=== PATIENT | female | born 1975 | race Hispanic/Latino ===

== ENCOUNTER 2017-11-26 12:32 | Inpatient (IN) | payer SELFPAY ==
[2017-11-26] MEDS ORDERED: NA CHLORIDE 0.9% 1,000 ML ONE (13:28)
[2017-11-26 13:30] LABS: Absolute Lymphocytes (CBC) 2.9 K/uL (0.7-4.9); Absolute Monocytes 0.5 K/uL (0.1-1.3); Absolute Neutrophil 4.4 K/uL (1.8-8.0); Basophils % 0.5 % (0-1.3); Eosinophils % 0.7 % (0-4.4); Hematocrit 36.3 % (36.0-45.0); Lymphocytes % 36.7 % (15.3-44.8); MCV 86.9 fL (80-100); MPV 8.5 fL (7.6-11.3); Monocytes % 6.5 % (3.3-12.3); RBC Red Blood Cell Count 4.17 M/uL (3.86-4.86)
[2017-11-26 13:43] LABS: ALT/SGPT 15 U/L (12-78); AST/SGOT 10 U/L (15-37); Albumin 3.5 g/dL (3.4-5.0); Alkaline Phosphatase 90 U/L (45-117); BUN Blood Urea Nitrogen 14 mg/dL (7-18); Bicarbonate 24 mmol/L (21-32); Bilirubin Direct < 0.1 mg/dL (0-0.2); Bilirubin Total 0.2 mg/dL (0.2-1.0); Glucose Level 357 mg/dL (74-106); Lipase 146 U/L (73-393); Potassium 4.1 mmol/L (3.5-5.1); Sodium Level 138 mmol/L (136-145)
[2017-11-26 14:34] LABS: Urine Blood TRACE (NEG); Urine Glucose 2+ (NEG); Urine Protein 2+ (NEG); Urine pH 5.5 (5.0-7.0)
[2017-11-26 14:44] LABS: Urine Bacteria >50 /HPF (<20); Urine Culture Reflex Order REFLEXED; Urine RBC <5 /HPF (NONE SEEN)
[2017-11-26] MEDS ORDERED: CEFTRIAXONE/SWI 1gm 1 GM/10 ML SYR ONE (14:57)
--- NOTE | 2017-11-26 15:05 | RAD REPORT ---
EXAM DESCRIPTION: CT - Abdomen Pelvis W Contrast - 11/26/2017 2:18 pm CLINICAL HISTORY: Abdominal pain with vomiting and diarrhea COMPARISON: none. TECHNIQUE: Computed axial tomography of the abdomen pelvis was obtained. 100 cc Isovue-300 was admin istered intravenously. Oral contrast was not requested which limits evaluation of bowel. All CT scans are performed using dose optimization technique as appropriate and may include automated exposure control or mA/KV adjustment according to patient size. FINDINGS: The liver, spleen, pancreas, adrenal and kidneys appear unremarkable. There is no evidence of diverticulitis. The distal appendix is borderline enlarged. It contains appen dicolith. Stranding is not seen within the adjacent fat. A 2 centimeter dense structure is present within the right adnexal. Small amount of free fluid is see n. Right ovary is mildly enlarged. IMPRESSION: Borderline enlargement of the distal appendix which contains an appendicolith is equivoc al for distal tip appendicitis. If the patient has clinical symptoms to suggest this then CT scan wit h oral contrast would be recommended with opacification of the terminal ileum/cecum. If the appendix completely opacifies with contrast this would rule out appendicitis. 2 centimeter dense structure within the right adnexa probably representing a hemorrhagic cyst. Small amount of free fluid is seen. Right ovary appears mildly enlarged. Endovaginal sonogram is recommende d for further evaluation
--- NOTE | 2017-11-26 15:45 | ER ---
Nurse's Notes [facility] Name: Elsy Bradford Age: 42 yrs Sex: Female : 1975 Arrival Date: 11/26/2017 Time: 12:34 Bed 5 Private MD: Diagnosis: Urinary tract infection, site not specified;Appendicolith;Right lower quadrant pain;Right hemorrhagic cyst;Hyperglycemia, unspecified Presentation: 11/26 12:55 Presenting complaint: Patient states: weak, vomiting, diarrhea x 2 days. Pt is a dm5 diabetic but hasn't been taking any medication due to lack of funds and has not been monitoring her glucose levels. Pt also c/o sharp pains in bilateral flanks and burning with urination. Transition of care: patient was not received from another setting of care. No acute neurological deficit is noted. Onset of symptoms was November 23, 2017. Risk Assessment: Do you want to hurt yourself or someone else? Patient reports no desire to harm self or others. 12:55 Method Of Arrival: Ambulatory dm5 12:55 Acuity: ALIN 2 dm5 15:04 Initial Sepsis Screen: Does the patient meet any 2 criteria? No. Patient's initial tw2 sepsis screen is negative. Does the patient have a suspected source of infection? No. Patient's initial sepsis screen is negative. Care prior to arrival: None. Triage Assessment: 12:57 The onset of the patients symptoms was more than six hours ago. The onset of the dm5 patients symptoms was November 23, 2017 at 12:00. General: Appears in no apparent distress. Behavior is cooperative, anxious. Pain: Complains of pain in mid back area Pain currently is 9 out of 10 on a pain scale. Neuro: Reports weakness. Cardiovascular: No deficits noted. Capillary refill < 3 seconds. Respiratory: Airway is patent Respiratory effort is even, unlabored, Respiratory pattern is regular, symmetrical. GI: Reports diarrhea, nausea, vomiting. : Reports burning with urination. Derm: Skin is pink, warm \\T\\ dry. 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 tw2 Historical: - Allergies: 14:55 No Known Allergies; aa5 - Home Meds: 12:57 Nexium Oral [Active]; dm5 - PMHx: 12:57 Diabetes - NIDDM; High Cholesterol; "thyroid"; Cancer; GERD; dm5 - Immunization history:: Adult Immunizations. - Social history:: Smoking status: . - Ebola Screening: : Patient denies travel to an Ebola-affected area in the 21 days before illness onset. Screenin:02 Abuse screen: Denies threats or abuse. Nutritional screening: No deficits noted. tw2 Tuberculosis screening: No symptoms or risk factors identified. Fall Risk None identified. Assessment: 13:00 General: Appears in no apparent distress. well groomed, Behavior is calm, cooperative, tw2 appropriate for age. Neuro: Level of Consciousness is awake, alert, obeys commands, Oriented to person, place, time, situation. Cardiovascular: Heart tones S1 S2 Patient's skin is warm and dry. Respiratory: Airway is patent Respiratory effort is even, unlabored, Respiratory pattern is regular, symmetrical, Breath sounds are clear bilaterally. GI: No signs and/or symptoms were reported involving the gastrointestinal system. : Reports urgency, urinary frequency. EENT: No signs and/or symptoms were reported regarding the EENT system. Derm: No signs and/or symptoms reported regarding the dermatologic system. Musculoskeletal: No signs and/or symptoms reported regarding the musculoskeletal system. 14:00 Reassessment: Patient appears in no apparent distress at this time. Patient and/or tw2 family updated on plan of care and expected duration. Pain level reassessed. Patient is alert, oriented x 3, equal unlabored respirations, skin warm/dry/pink. 14:55 Reassessment: Patient and/or family updated on plan of care and expected duration. Pain aa5 level reassessed. Patient is alert, oriented x 3, equal unlabored respirations, skin warm/dry/pink. 16:00 Reassessment: Patient appears in no apparent distress at this time. Patient and/or tw2 family updated on plan of care and expected duration. Pain level reassessed. Patient is alert, oriented x 3, equal unlabored respirations, skin warm/dry/pink. 17:00 Reassessment: Patient appears in no apparent distress at this time. Patient and/or tw2 family updated on plan of care and expected duration. Pain level reassessed. Patient is alert, oriented x 3, equal unlabored respirations, skin warm/dry/pink. 17:40 Reassessment: Patient appears in no apparent distress at this time. Patient and/or tw2 family updated on plan of care and expected duration. Pain level reassessed. Patient is alert, oriented x 3, equal unlabored respirations, skin warm/dry/pink. Vital Signs: 12:57 BP 139 / 102; Pulse 102; Resp 18; Temp 98.2; Pulse Ox 100% on R/A; Weight 58.97 kg; dm5 Height 4 ft. 11 in. (149.86 cm); Pain 9/10; 13:05 BP 132 / 86; dm5 14:55 BP 130 / 87; Pulse 98; Resp 16 S; Pulse Ox 100% on R/A; Pain 8/10; aa5 15:00 BP 140 / 88; Pulse 66; Resp 17; Pulse Ox 100% on R/A; tw2 16:00 BP 135 / 88; Pulse 97; Resp 17; Pulse Ox 100% on R/A; tw2 17:10 BP 137 / 85; Pulse 89; Resp 18; Pulse Ox 100% on R/A; tw2 12:57 Body Mass Index 26.26 (58.97 kg, 149.86 cm) dm5 ED Course: 12:34 Patient arrived in ED. tw3 12:56 Benja Grewal NP is PHCP. pm1 12:56 Baldev Masterson MD is Attending Physician. pm1 12:57 Triage completed. dm5 12:57 Arm band placed on right wrist. Patient placed in an exam room, on a stretcher, on dm5 pulse oximetry. 13:00 Bed in low position. Call light in reach. Pulse ox on. NIBP on. tw2 13:10 Inserted saline lock: 20 gauge in right antecubital area, using aseptic technique. dm5 Blood collected. 14:03 Urine collected: clean catch specimen, cloudy. dh3 14:17 CT completed. Patient tolerated procedure well. Patient moved to CT via wheelchair. sj Patient moved back from CT. 14:18 CT Abd/Pelvis - W/Contrast: IV contrast only In Process Unspecified. EDMS 14:45 Angelnia Botello, KARELY is Primary Nurse. tw2 15:36 Red Stark MD is Hospitalizing Provider. pm1 17:17 No provider procedures requiring assistance completed. Patient admitted, IV remains in tw2 place. Administered Medications: 13:27 Drug: NS 0.9% 1000 ml Route: IV; Rate: 1000 ml; Site: right antecubital; dm5 15:00 Follow up: Response: No adverse reaction; IV Status: Completed infusion; IV Intake: tw2 1000ml 14:56 Drug: Rocephin 1 grams Route: IV; Rate: calculated rate; Site: right antecubital; aa5 15:02 Follow up: Response: No adverse reaction; IV Status: Completed infusion tw2 17:13 Follow up: Response: No adverse reaction tw2 Point of Care Testing: Blood Glucose: 13:05 Blood Glucose: 339 mg/dL; dm5 17:10 Blood Glucose: 235 mg/dL; tw2 Ranges: Intake: 15:00 IV: 1000ml; Total: 1000ml. tw2 Outcome: 15:44 Decision to Hospitalize by Provider. pm1 17:18 Admitted to Med/surg accompanied by tech, via wheelchair, with chart, Report called to twYuan Oseguera RN 17:19 Condition: stable tw2 17:19 Instructed on the need for admit. 17:40 Patient left the ED. tw2 Signatures: Dispatcher [employer] Cherry Wood, KARELY RN truman5 Chandni Farrell Audri, RN RN aa5 Benja Grewal, CHIEF MEDICAL PHYSICIST CHIEF MEDICAL PHYSICIST pm1 Angelina Botello RN RN tw2 Yumiko Ramesh tw3 Abbi Patel 3
--- NOTE | 2017-11-26 15:45 | EDPHYS ---
Physician Documentation [facility] Name: Elsy Bradford Age: 42 yrs Sex: Female : 1975 Arrival Date: 11/26/2017 Time: 12:34 Bed 5 Private MD: ED Physician Baldev Masterson HPI: 11/26 16:00 This 42 yrs old Female presents to ER via Ambulatory with complaints of pm1 Abdominal pain and dysuria. 16:00 The patient presents with flank pain, bilaterally, urinary symptoms, dysuria, abdominal pm1 pain. Onset: The symptoms/episode began/occurred 3 day(s) ago. Modifying factors: The symptoms are alleviated by nothing, the symptoms are aggravated by urinating. Associated signs and symptoms: Pertinent positives: diarrhea, dysuria, nausea, vomiting, Chills. Severity of symptoms: in the emergency department the symptoms are actually worse. 16:00 The patient has not recently seen a physician, and does not have an established primary pm1 care provider. Patient has not taken medications for diabetes for multiple years. Stopped taking metformin. 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 tw2 Historical: - Allergies: 14:55 No Known Allergies; aa5 - Home Meds: 12:57 Nexium Oral [Active]; dm5 - PMHx: 12:57 Diabetes - NIDDM; High Cholesterol; "thyroid"; Cancer; GERD; dm5 - Immunization history:: Adult Immunizations. - Social history:: Smoking status: . - Ebola Screening: : Patient denies travel to an Ebola-affected area in the 21 days before illness onset. ROS: 16:00 Positive for burning with urination. pm1 16:00 Constitutional: Negative for fever, chills, and weight loss, Eyes: Negative for injury, pain, redness, and discharge, ENT: Negative for injury, pain, and discharge, Neck: Negative for injury, pain, and swelling, Cardiovascular: Negative for chest pain, palpitations, and edema, Respiratory: Negative for shortness of breath, cough, wheezing, and pleuritic chest pain. 16:00 Back: Negative for injury and pain, MS/Extremity: Negative for injury and deformity, Skin: Negative for injury, rash, and discoloration, Neuro: Negative for headache, weakness, numbness, tingling, and seizure. 16:00 Abdomen/GI: Positive for abdominal pain, nausea, vomiting, and diarrhea. Exam: 16:00 Constitutional: This is a well developed, well nourished patient who is awake, alert, pm1 and in no acute distress. Head/Face: Normocephalic, atraumatic. Eyes: Pupils equal round and reactive to light, extra-ocular motions intact. Lids and lashes normal. Conjunctiva and sclera are non-icteric and not injected. Cornea within normal limits. Periorbital areas with no swelling, redness, or edema. ENT: Nares patent. No nasal discharge, no septal abnormalities noted. Tympanic membranes are normal and external auditory canals are clear. Oropharynx with no redness, swelling, or masses, exudates, or evidence of obstruction, uvula midline. Mucous membranes moist. Neck: Trachea midline, no thyromegaly or masses palpated, and no cervical lymphadenopathy. Supple, full range of motion without nuchal rigidity, or vertebral point tenderness. No Meningismus. Chest/axilla: Normal chest wall appearance and motion. Nontender with no deformity. No lesions are appreciated. Cardiovascular: Regular rate and rhythm with a normal S1 and S2. No gallops, murmurs, or rubs. Normal PMI, no JVD. No pulse deficits. Respiratory: Lungs have equal breath sounds bilaterally, clear to auscultation and percussion. No rales, rhonchi or wheezes noted. No increased work of breathing, no retractions or nasal flaring. 16:00 Skin: Warm, dry with normal turgor. Normal color with no rashes, no lesions, and no evidence of cellulitis. MS/ Extremity: Pulses equal, no cyanosis. Neurovascular intact. Full, normal range of motion. 16:00 Abdomen/GI: Inspection: abdomen appears normal, Bowel sounds: normal, Palpation: moderate abdominal tenderness, in the suprapubic area and right lower quadrant, mass, is not appreciated, rebound tenderness, is not appreciated. 16:00 Back: normal spinal alignment noted, CVA tenderness, is noted on the right, vertebral tenderness, is not appreciated. 16:00 Neuro: Orientation: is normal, Motor: is normal, moves all fours. Vital Signs: 12:57 BP 139 / 102; Pulse 102; Resp 18; Temp 98.2; Pulse Ox 100% on R/A; Weight 58.97 kg; dm5 Height 4 ft. 11 in. (149.86 cm); Pain 9/10; 13:05 BP 132 / 86; dm5 14:55 BP 130 / 87; Pulse 98; Resp 16 S; Pulse Ox 100% on R/A; Pain 8/10; aa5 15:00 BP 140 / 88; Pulse 66; Resp 17; Pulse Ox 100% on R/A; tw2 16:00 BP 135 / 88; Pulse 97; Resp 17; Pulse Ox 100% on R/A; tw2 17:10 BP 137 / 85; Pulse 89; Resp 18; Pulse Ox 100% on R/A; tw2 12:57 Body Mass Index 26.26 (58.97 kg, 149.86 cm) dm5 MDM: 12:57 Patient medically screened. pm1 15:25 Physician consultation: Loyd Null MD was contacted at 15:25, regarding consult, pm1 patient's condition, and will see patient tomorrow, Admit to the hospitalist and treat the patient's UTI. Impression likely UTI. Will evaluate her tomorrow morning . 15:26 Data reviewed: vital signs. Data interpreted: Pulse oximetry: on room air is 100 %. pm1 Interpretation: normal. Counseling: I had a detailed discussion with the patient and/or guardian regarding: the historical points, exam findings, and any diagnostic results supporting the discharge/admit diagnosis, lab results, radiology results, the need for further work-up and treatment in the hospital. 15:44 Physician consultation: Red Stark MD was contacted at 15:44, regarding admission, pm1 patient's condition, in the emergency department to see patient at 15:45. 11/26 13:05 Order name: Glucose, Ancillary Testing; Complete Time: 13:12 EDMS 11/26 13:09 Order name: Basic Metabolic Panel pm1 11/26 13:09 Order name: CBC with Diff pm1 11/26 13:09 Order name: Creatinine for Radiology; Complete Time: 13:46 pm1 11/26 13:09 Order name: Hepatic Function; Complete Time: 13:46 pm1 11/26 13:09 Order name: Lipase; Complete Time: 13:46 pm1 11/26 13:09 Order name: Urine Microscopic Only; Complete Time: 15:04 pm1 11/26 13:09 Order name: Basic Metabolic Panel; Complete Time: 13:46 EDMS 11/26 13:09 Order name: CBC with Automated Diff; Complete Time: 13:46 EDMS 11/26 14:30 Order name: Urine Dipstick--Ancillary (enter results) eb 11/26 14:30 Order name: Urine --Ancillary (enter results) eb 11/26 14:45 Order name: Urine Culture EDMS 11/26 17:06 Order name: Thyroid Stimulating Hormone; Complete Time: 17:09 EDMS 11/26 17:18 Order name: Hemoglobin A1c; Complete Time: 17:24 EDMS 11/26 13:09 Order name: IV Saline Lock; Complete Time: 13:30 pm1 11/26 13:09 Order name: Labs collected and sent; Complete Time: 13:30 pm1 11/26 13:09 Order name: CT Abd/Pelvis - W/Contrast: IV contrast only; Complete Time: 15:06 pm1 11/26 13:09 Order name: Urine Dipstick-Ancillary (obtain specimen); Complete Time: 14:16 pm1 11/26 13:09 Order name: Urine Test (obtain specimen); Complete Time: 14:16 pm1 11/26 15:34 Order name: US Transvaginal Study (Probe) pm1 11/26 17:16 Order name: US; Complete Time: 17:16 EDMS Administered Medications: 13:27 Drug: NS 0.9% 1000 ml Route: IV; Rate: 1000 ml; Site: right antecubital; dm5 15:00 Follow up: Response: No adverse reaction; IV Status: Completed infusion; IV Intake: tw2 1000ml 14:56 Drug: Rocephin 1 grams Route: IV; Rate: calculated rate; Site: right antecubital; aa5 15:02 Follow up: Response: No adverse reaction; IV Status: Completed infusion tw2 17:13 Follow up: Response: No adverse reaction tw2 Point of Care Testing: Blood Glucose: 13:05 Blood Glucose: 339 mg/dL; dm5 17:10 Blood Glucose: 235 mg/dL; tw2 Ranges: Critical Glucose Levels:Adult <50 mg/dl or >400 mg/dl <40 mg/dl or >180 mg/dl Disposition: 11/27 06:26 Co-signature as Attending Physician, Baldev Masterson MD I agree with the assessment and kdr plan of care. Disposition: 11/26/17 15:44 Hospitalization ordered by Red Stark for Observation. Preliminary diagnosis are Urinary tract infection, site not specified, Appendicolith, Right lower quadrant pain, Right hemorrhagic cyst, Hyperglycemia, unspecified. - Bed requested for Telemetry/MedSurg (observation). - Status is Observation. tw2 - Condition is Stable. - Problem is new. - Symptoms have improved. UTI on Admission? Yes Signatures: Dispatcher [employer] EDVT Cherry Arias, RN RN dm5 Baldev Masterson MD MD [facility] Magdalena Gutierrez RN RN aa5 Benja Grewal, CLERICAL AIDE TEACHER CLERICAL AIDE TEACHER pm1 Angelina Botello RN RN tw2 Gracie Nelson Corrections: (The following items were deleted from the chart) 11/26 15:35 15:25 Physician consultation: Loyd Null MD was contacted at 15:25, regarding consult, pm1 patient's condition, and will see patient tomorrow, Admit to the hospitalist and treat the patient's UTI. Impression likely UTI. Will evaluate her tomorrow morning , pm1 15:44 15:44 Hospitalization Ordered by Red Stark MD for Observation. Preliminary diagnosis pm1 is Urinary tract infection, site not specified; Appendicolith; Right lower quadrant pain; Right hemorrhagic cyst. Bed requested for Telemetry/MedSurg (observation). Status is Observation. Condition is Stable. Problem is new. Symptoms have improved. UTI on Admission? Yes. pm1 16:58 15:44 11/26/2017 15:44 Hospitalization Ordered by Red Stark MD for Observation. eb Preliminary diagnosis is Urinary tract infection, site not specified; Appendicolith; Right lower quadrant pain; Right hemorrhagic cyst; Hyperglycemia, unspecified. Bed requested for Telemetry/MedSurg (observation). Status is Observation. Condition is Stable. Problem is new. Symptoms have improved. UTI on Admission? Yes. pm1 17:40 16:58 11/26/2017 15:44 Hospitalization Ordered by Red Stark MD for Observation. tw2 Preliminary diagnosis is Urinary tract infection, site not specified; Appendicolith; Right lower quadrant pain; Right hemorrhagic cyst; Hyperglycemia, unspecified. Bed requested for Telemetry/MedSurg (observation). Status is Observation. Condition is Stable. Problem is new. Symptoms have improved. UTI on Admission? Yes. eb
--- NOTE | 2017-11-26 17:16 | RAD REPORT ---
EXAM DESCRIPTION: US - Transvaginal Study Probe - 11/26/2017 4:22 pm CLINICAL HISTORY: Right lower quadrant pain. Preliminary findings provided at the time of the study. COMPARISON: None. TECHNIQUE: Endovaginal sonography was performed. FINDINGS: Nabothian cyst present. No discrete endometrial mass or polyp identifiable. Endometrium-my ometrium interface is normal. Endometrial stripe is thickened at 17 mm. This is homogeneous. A drier ior mid to fundal intramural fibroid is present 2.5 cm in size. Uterus is 8.8 x 5.6 x 6.6 cm. Both ovaries are identifiable and similar in size. No suspicious solid or cystic ovarian or adnexal f inding. Doppler evaluation shows normal blood flow in the ovarian stroma. IMPRESSION: A 2.5 centimeter posterior mid fundal fibroid is present in a normal-sized uterus. Endometrial stripe is thickened at 17 mm. No discrete endometrial mass or polyp. No significant ovarian or adnexal finding.
[2017-11-26 18:34] VITALS: BMI 26.2
[2017-11-26] MEDS: NA CHLORIDE 0.9% 1,000 ML IV SCH (18:43)
[2017-11-26] MEDS: PIPER/TAZO/NS 3.375gm 3.375 GM/100 ML BAG IVPB SCH (18:44)
[2017-11-26] MEDS: ONDANSETRON 4 MG/2 ML VIAL IV PRN ×2 (18:47→22:37)
[2017-11-26] MEDS ORDERED: INFLUENZA VACCINE (for 3y+) 0.5 ML DOSE IMVAC ONE (20:00)
[2017-11-26] MEDS: ACETAMINOPHEN 500 MG TAB PO PRN (22:37)
[2017-11-27] MEDS: PIPER/TAZO/NS 3.375gm 3.375 GM/100 ML BAG IVPB SCH ×3 (01:26→17:43)
[2017-11-27] MEDS: NA CHLORIDE 0.9% 1,000 ML IV SCH ×3 (01:29→18:31)
--- NOTE | 2017-11-27 02:24 | HP ---
Date of Admission: 11/26/2017 Consultants: Dr. Null from General Surgery. Chief Complaint: Bilateral flank pain, right lower quadrant abdominal pain. Hpi: The patient is a 42-year-old female who has not followed up with a physician in several years w ho has past medical history of diabetes mellitus type 2, non-insulin requiring, not on any treatment due to inability to tolerate medication along with hypothyroidism and gastroesophageal reflux disease as well as high cholesterol. The patient reports for the past several days she has been having naus ea, vomiting, nonbloody, nonbilious, along with some bilateral flank pain and dysuria. The patient a lso reports dyspareunia. The patient's symptoms are constant, moderate, progressively worsening. No hematuria. The patient denies any fevers, but does report some chills. States that she remains col d most of the time. No chest pain, shortness of breath. No trauma. The patient's abdominal pain do es not have any aggravating or alleviating factors. It is constant, radiates towards the flanks. Th e patient came into the ER for further evaluation. Upon arrival, she was hypertensive, otherwise, af ebrile. Her workup revealed normal WBC count. Her glucose was elevated at 399. Her urine was posit blake. Imaging studies including CT scan of the abdomen and pelvis showed possible distal appendicitis as well as a possible hemorrhagic cyst in the right adnexa. The patient was referred for admission for further evaluation. In the ER, she did receive Rocephin and normal saline bolus. [facility], the patient was awake, alert, oriented x3, in some mild distress. Past Medical History: Diabetes mellitus type 2, non-insulin requiring; hyperlipidemia; hypothyroidis m; gastroesophageal reflux disease; questionable history of cancer. Past Surgical History: None. Allergies: NO KNOWN DRUG ALLERGIES. Medications: The patient takes Nexium. Social History: The patient denies any tobacco use. Does drink occasionally. No illicit drug use. The patient does have a significant other, has couple of daughters, has good social support. Family History: Sister has history of uterine cancer. Review of Systems: An 11-point system reviewed, negative except as per HPI. Physical Examination: Vital Signs: Blood pressure 139/102, pulse 102, respirations 18, temperature 98.2, O2 100% on room a ir. General: Awake, alert, oriented x3, in some mild distress, ill-appearing female. HEENT: Normocephalic, atraumatic. PERRLA. EOMI. Dry mucous membranes. Oropharynx is clear. Norm al dentition. Conjunctivae anicteric. Neck: Supple. No JVD. Trachea midline. CV: S1, S2. Sinus tachycardia. No murmurs. Peripheral pulses present bilaterally. Respiratory: Clear to auscultation bilaterally. No wheezing or stridor. No use of accessory muscle s. Gastrointestinal: Abdomen is soft. Tenderness to palpation in the right lower quadrant as well as t he suprapubic region. Some voluntary guarding is present. No rebound. No rigidity. Bowel sounds a re hypoactive. No hepatomegaly. Extremities: No clubbing, cyanosis, or edema. No calf tenderness. Neuro: Cranial nerves 2 through 12 intact grossly. No focal neurological deficit. Speech is normal . Strength is 5/5 bilateral upper and lower extremities. Sensation intact to light touch. Skin: No rashes. Normal skin turgor. Psych: Mood is okay. Affect is full. Insight and judgment are fair. Laboratory Data: UA shows trace blood, positive nitrite, negative leukocyte esterase, greater than 5 0 bacteria, less than 5 wbc's, 2+ glucose, 2+ protein. Urine test negative. Sodium 138, p otassium 4.1, chloride 106, CO2 24, BUN 14, creatinine 0.9, glucose 357, calcium 8.9, AST 10, ALT 15, total bilirubin 0.2, alkaline phosphatase 90, albumin 3.5, lipase 146. WBC 8, H and H 13 and 36.3, platelets 437, neutrophils 55%. CT scan abdomen and pelvis shows borderline enlargement of the dista l appendix which contains an appendicolith or is equivocal for distal tip appendicitis, [address] ructure within the right adnexa probably represents a hemorrhagic cyst. Small amount of free fluid i s seen. Right ovary appears mildly enlarged. Assessment And Plan: A 42-year-old female with: 1.Right lower quadrant abdominal pain radiating to the flanks, possible distal appendicitis and appe ndicolith. We will start on IV antibiotics. Dr. Null with General Surgery has been consulted. He does not feel that this is appendicitis personally due to lack of oral contrast, unable to confirm on the CT. We will treat empirically if condition worsens. We will repeat CT with contrast. Start pa tient on IV antibiotics. 2.Acute cystitis with hematuria. We will start on IV antibiotics. Obtain urine culture. The patie nt does have symptoms of dysuria. 3.Noncompliance. 4.Hypertension, essential, uncontrolled. We will adjust p.r.n. medications. 5.Diabetes mellitus type 2 with hyperglycemia, non-insulin requiring. We will check hemoglobin A1c. 6.Hypothyroidism. Check TSH level. 7.Overweight. BMI 26. Plan: 1.Admit the patient to Med-Surg, place as inpatient with close monitoring. We will start on IV flui ds, pain medications. We will keep on clear liquid diet. We will obtain a transvaginal ultrasound f or possible hemorrhagic cyst seen on CT, which may be contributing to the pain. 2.Acute pyelonephritis. 3.Hemorrhagic cyst of the right adnexa. MARQUISE Voice ID: [id number]
[2017-11-27] MEDS: ONDANSETRON 4 MG/2 ML VIAL IV PRN ×2 (04:56→23:03)
[2017-11-27 06:07] LABS: Absolute Lymphocytes (CBC) 3.3 K/uL (0.7-4.9); Absolute Monocytes 0.6 K/uL (0.1-1.3); Absolute Neutrophil 4.2 K/uL (1.8-8.0); Basophils % 0.4 % (0-1.3); Hematocrit 34.1 % (36.0-45.0); Lymphocytes % 39.7 % (15.3-44.8); MCH 30.5 pg (27.0-35.0); MCV 88.1 fL (80-100); MPV 8.3 fL (7.6-11.3); Monocytes % 7.1 % (3.3-12.3); RBC Red Blood Cell Count 3.87 M/uL (3.86-4.86)
[2017-11-27 06:22] LABS: Urine Appearance CLEAR; Urine Bilirubin NEGATIVE (NEG); Urine Blood NEGATIVE (NEG); Urine Color YELLOW; Urine Glucose 1+ (NEG); Urine Protein 1+ (NEG); Urine Specific Gravity >=1.030 (1.005-1.030); Urine Urobilinogen 0.2 mg/dL (0.2-1.0); Urine pH 5.5 (5.0-7.0)
[2017-11-27 06:23] LABS: Albumin 3.1 g/dL (3.4-5.0); Bilirubin Total 0.5 mg/dL (0.2-1.0); Magnesium 1.9 mg/dL (1.8-2.4); Potassium 3.8 mmol/L (3.5-5.1); Protein, Total 7.1 g/dL (6.4-8.2)
[2017-11-27 06:28] LABS: Urine Microscopic Reflex ORDER UMIC
[2017-11-27 06:37] LABS: Urine Bacteria <20 /HPF (<20); Urine Culture Reflex Order NOT NEEDED; Urine RBC <5 /HPF (NONE SEEN)
[2017-11-27] MEDS ORDERED: KCL 20 MEQ/100 mL IVPB 20 MEQ/100 ML BAG IV SCH (07:00)
[2017-11-27] MEDS: HYDROCODONE/APAP 7.5/325 MG TAB PO PRN ×2 (09:32→20:40)
[2017-11-27] MEDS ORDERED: D50W 25 GM/50 ML SYRINGE IV PRN (10:21)
[2017-11-27] MEDS ORDERED: GLUCAGON 1 MG/VIAL IM PRN (10:21)
--- NOTE | 2017-11-27 12:47 | CON ---
Date of Consultation: 11/26/2017 Reason: Flank pain, right lower quadrant pain, and abnormal appendix on the CAT scan, UTI. History Of Present Illness: The patient is a 42-year-old female who states that she has been having episodic flank and suprapubic and right lower quadrant pain for the last 3 weeks, and she did have dy suria; however, she states that she took some medicine to help with the dysuria, but she never was tr eated with antibiotics. Her symptoms became worse, and she had some nausea and some dysuria, occasio nal vomiting. No fevers. Occasional chills. She is a noncompliant diabetic patient who has not see n a physician in several years. No sore throat, runny nose, cough, headaches, or dizziness. No diar maurilio or constipation. No blood in her stool. Review of Systems: Otherwise unremarkable. Past Medical History: Significant for type 2 diabetes, hyperlipidemia, hypothyroidism, GERD. Past Surgical History: Negative. Allergies: NO ALLERGIES. Social History: The patient does not smoke. Drinks occasionally. Family History: Sister with uterine cancer. Physical Examination: Vital Signs: Stable. She is afebrile. She is awake, alert, orient x3. Head and Neck: Cranial nerves 2 through 12 grossly within normal limits. No neck masses. No JVD. Throat clear. Neck is supple. Chest: Clear. Heart: S1, S2. Abdomen: Soft. Diffuse minimal tenderness, most tender in the suprapubic right flank region. There is some tenderness in the right lower quadrant. No peritonitis. Extremity: Adequately perfused. Nontender. Neuro: Nonfocal. Laboratory Data: White count is normal. There is no left shift. Chemistry is reviewed. Glucose cu rrently is 219. Urinalysis shows trace blood, positive nitrites, greater than 50 bacteria, 2+ glucos e, 2+ protein. A CT of the abdomen and pelvis reveals borderline enlargement of the appendix, which contains an appendicolith, is equivocal for distal tip appendicitis. If the patient has clinical sym ptoms that suggests it then CT scan with oral contrast would be recommended with opacification of the terminal ileum and cecum. If the appendix completely opacifies with contrast, this will rule out ap pendicitis. She also had an endovaginal ultrasound, which was showing a fibroid, otherwise unremarka ble. Assessment: A 42-year-old female with a right lower quadrant, suprapubic and right flank pain most l ikely secondary to cystitis or urinary tract infection, possibly a subclinical pyelonephritis. I adina bt at this time that the patient has acute appendicitis. However, we will treat her with IV antibiot ics. Check the urine cultures. Make sure she is on the appropriate antibiotics, and if she does not improve with antibiotics for her urinary tract infection then we will repeat the CAT scan with oral contrast and should there be enough evidence for appendicitis at that time, we will proceed according ly. Plan of care discussed in detail with the patient as well as Dr. Stark. COREY/THEODORE Voice ID: [id number] Report ID: [id number]
[2017-11-27] MEDS: INSULIN -REGULAR HUMAN 50 UNIT/0.5 ML ML SQ SCH ×3 (13:09→20:41)
--- NOTE | 2017-11-27 14:52 | PN ---
Date of Progress Note: 11/27/2017 History: The patient seen and examined. Chart reviewed and case discussed with RN and Dr. Null. T he patient still has some abdominal pain. Tolerating clear liquids. Review of Systems: Negative except as above. Medications: List reviewed. Physical Examination: Vital Signs: Temperature 97.9, heart rate 87, blood pressure 130/72, respirations 18, O2 99% on room air. General: Awake, alert, oriented x3, in some mild distress. Ill-appearing female. CV: S1, S2. No murmurs. Regular rate and rhythm. Peripheral pulses present. Respiratory: Moving air well bilaterally. No wheezing or stridor. No use of accessory muscles. Gastrointestinal: Abdomen is soft. Mild tenderness to palpation in the right lower quadrant. No re bound or guarding. No rigidity. No palpable masses. Extremities: No clubbing, cyanosis, or edema. Neurologic: Nonfocal. Laboratory Data: Sodium 140, potassium 3.8, chloride 109, CO2 25, BUN 11, creatinine 0.9, glucose 21 9, calcium 8.1, hemoglobin A1c 11.5, magnesium 1.9. Albumin 3.1. TSH 2.8. WBC 8.2, H and H 11.8, 3 4.1, platelets 410. Urine culture growing 4+ gram-negative rods. Transvaginal ultrasound showing en dometrial hyperplasia 17 mm, 2.5 cm posterior mid fundal fibroid present in a normal-size uterus. No discrete endometrial mass or polyp. No significant ovarian or adnexal finding. Assessment: A 42-year-old female with: 1.Right lower quadrant abdominal pain radiating to the flanks, possible distal appendicitis and appe ndicolith present on CT scan, more likely acute pyelonephritis. We will continue IV antibiotics. Dr Dayna Null does not feel that this is appendicitis given the history. Continue antibiotics for now. Fo llow up on cultures. If pain is not improved, we will repeat CT scan with contrast. 2.Acute pyelonephritis. Urine cultures growing out gram-negative rods. We will continue antibiotic s and follow up on ID and sensitivity. 3.Noncompliance with medication. 4.Diabetes mellitus type 2 with hyperglycemia, noninsulin requiring. Hemoglobin A1c is 11.5%, uncon trolled. 5.Essential hypertension, uncontrolled. Continue with p.r.n. medications. 6.History of hypothyroidism. TSH is normal. 7.Overweight, body mass index 26. Plan: 1.Continue antibiotics. Follow up on cultures. 2.Endometrial hyperplasia. The patient will need endometrial biopsy to rule out cancer. 3.Gastrointestinal and deep venous thrombosis prophylaxis addressed. MARQUISE Voice ID: [id number] Report ID: [id number]
[2017-11-28] MEDS: PIPER/TAZO/NS 3.375gm 3.375 GM/100 ML BAG IVPB SCH ×3 (01:09→18:34)
[2017-11-28] MEDS: NA CHLORIDE 0.9% 1,000 ML IV SCH ×3 (01:10→15:00)
[2017-11-28] MEDS: ACETAMINOPHEN 500 MG TAB PO PRN (06:42)
[2017-11-28 07:13] LABS: Absolute Lymphocytes (CBC) 2.9 K/uL (0.7-4.9); Absolute Monocytes 0.6 K/uL (0.1-1.3); Absolute Neutrophil 4.6 K/uL (1.8-8.0); Basophils % 0.5 % (0-1.3); Eosinophils % 0.9 % (0-4.4); Hematocrit 32.5 % (36.0-45.0); Lymphocytes % 35.4 % (15.3-44.8); MCH 30.6 pg (27.0-35.0); MCV 88.2 fL (80-100); MPV 8.3 fL (7.6-11.3); Monocytes % 7.4 % (3.3-12.3); RBC Red Blood Cell Count 3.69 M/uL (3.86-4.86)
[2017-11-28] MEDS: INSULIN -REGULAR HUMAN 50 UNIT/0.5 ML ML SQ SCH ×4 (07:30→20:55)
[2017-11-28 07:31] LABS: ALT/SGPT 11 U/L (12-78); AST/SGOT 10 U/L (15-37); Albumin 2.9 g/dL (3.4-5.0); Alkaline Phosphatase 66 U/L (45-117); BUN Blood Urea Nitrogen 8 mg/dL (7-18); Bicarbonate 21 mmol/L (21-32); Bilirubin Total 0.4 mg/dL (0.2-1.0); Glucose Level 190 mg/dL (74-106); Potassium 3.7 mmol/L (3.5-5.1); Protein, Total 6.6 g/dL (6.4-8.2); Sodium Level 139 mmol/L (136-145)
[2017-11-28] MEDS ORDERED: KCL 20 MEQ/100 mL IVPB 20 MEQ/100 ML BAG IV SCH (09:00)
[2017-11-28] MEDS ORDERED: PHENAZOPYRIDINE 100MG TAB PO PRN (09:38)
[2017-11-28] MEDS ORDERED: POTASSIUM 25 MEQ EFFERV TAB PO ONE (12:00)
--- NOTE | 2017-11-28 14:51 | PN ---
Date of Progress Note: 11/28/2017 Subjective: The patient is awake, alert, tolerating her diet. Still having right lower quadrant abd ominal pain and suprapubic and right flank pain. Her urine cultures grew out E. coli, sensitive to m ultiple antibiotics. Objective: Vital Signs: Her vital signs are stable. Afebrile. White count is normal. Abdomen: Soft, nondistended. Minimal tenderness on the right lower quadrant. No rebound, rigidity, or guarding. Extremities: Adequately perfused. Assessment: Most likely urinary tract infection, doubt acute appendicitis. However as stated kelli june if indicated CT of the abdomen and pelvis with oral contrast will rule out appendicitis. Continue antibiotics. I recommend switching to more of urine sensitive antibiotics. Zosyn is for GI infectio ns better than for urine infections. Hopefully discharge in a day or two. COREY/THEODORE Voice ID: [id number] Report ID: [id number]
--- NOTE | 2017-11-28 17:42 | RAD REPORT ---
EXAM DESCRIPTION: CT - Abdomen Pelvis W Contrast - 11/28/2017 2:16 pm CLINICAL HISTORY: Abdominal pain, right lower quadrant pain history of UTI COMPARISON: November 26 TECHNIQUE: Biphasic, helical CT imaging of the abdomen and pelvis was performed following 100 ml non -ionic IV contrast. Oral contrast was given. All CT scans are performed using dose optimization technique as appropriate and may include automated exposure control or mA/KV adjustment according to patient size. FINDINGS: No suspicious findings in the lung bases. The liver, spleen, and pancreas show no suspicious findings. Gallbladder and biliary tree are also wi thout suspicious finding. Symmetric renal function is seen with no hydronephrosis or suspicious renal mass. No pyelonephritis o r acute renal parenchymal process identifiable. No wall thickening or edema of the urinary bladder. Right deviated uterus is present. Small fibroids cannot be excluded. In the posterior right adnexa an 18 millimeter rounded hyperdensity is present adjacent to the ovary. Hemorrhagic cyst is suspected. No fallopian tube dilatation. No gastric dilatation or wall thickening. No acute small bowel finding. No progression in the appeara nce of the appendix. No finding to suspect a developing acute appendicitis. No acute colon finding se en. No free air or pneumatosis. No hernia, mass or bulky lymphadenopathy. No adrenal abnormality. No suspicious bony findings. IMPRESSION: No change to the appendix. No evidence for developing acute appendicitis. Suspected hemorrhagic right ovarian cyst. No pyelonephritis or acute finding.
--- NOTE | 2017-11-28 18:06 | PN ---
Date of Progress Note: 11/28/2017 Subjective: The patient was seen and examined. Chart reviewed and case discussed with RN and Dr. Nabor schultz. The patient is still complaining of some abdominal pain. No further nausea or vomiting, and co ntinues to have some dysuria. Review of Systems: Negative except as above. Medications: List reviewed. Objective: Vital Signs: Temperature 97.6, heart rate 69, blood pressure 115/69, respirations 16, O2 100% on room air. General: Awake, alert, oriented x3, in mild distress, ill-appearing female. CV: S1, S2. Regular rate and rhythm. Peripheral pulses present. Respiratory: Clear to auscultation bilaterally. No wheezing or stridor. Gastrointestinal: Abdomen is soft. Tenderness to palpation in the right lower quadrant and epigastr ic region. Flank tenderness on the right. Extremities: No clubbing, cyanosis, or edema. Neurologic: Nonfocal. Laboratory Data: Sodium 139, potassium 3.7, chloride 110, CO2 of 21, BUN 8, creatinine 0.7, glucose 190, calcium 8, AST 10, ALT 11, albumin 2.9. WBC 8.3, H and H are 11.3 and 32.5, platelets 361. Uri ne culture growing E. coli. Assessment: A 42-year-old female with: 1.Right lower quadrant abdominal pain radiating to the flanks, likely from pyelonephritis. However, CT scan did show possibility of distal appendicitis along with appendicolith. Dr. Null recommends repeating CT with contrast to rule out appendicitis. We will continue antibiotics. Follow up on joshua dhaliwal. 2.Acute pyelonephritis secondary to Escherichia coli. We will start Pyridium for dysuria. 3.Noncompliance. The patient counseled. 4.Diabetes mellitus type 2 with hyperglycemia, non-insulin requiring. Hemoglobin A1c is over 11%. The patient was counseled regarding diabetes. The patient voiced understanding. 5.Essential hypertension, uncontrolled, much improved with IV medications. 6.Hypothyroidism. TSH level is normal. 7.Overweight, body mass index of 26. Plan: Adjust insulin sliding scale. Obtain CT of the abdomen and pelvis with contrast. Continue IV antibiotics. Follow up on cultures, likely discharge in the next 24 to 48 hours if continues to imp rove. /THEODORE Voice ID: [id number] Report ID: [id number]
[2017-11-28] MEDS ORDERED: INSULIN GLARGINE 100 UNITS/ML SQ SCH (21:00)
[2017-11-29] MEDS: PIPER/TAZO/NS 3.375gm 3.375 GM/100 ML BAG IVPB SCH ×2 (00:23→09:41)
[2017-11-29] MEDS: NA CHLORIDE 0.9% 1,000 ML IV SCH (04:20)
[2017-11-29 05:23] LABS: Absolute Lymphocytes (CBC) 3.5 K/uL (0.7-4.9); Absolute Monocytes 0.7 K/uL (0.1-1.3); Basophils % 0.4 % (0-1.3); Eosinophils % 0.8 % (0-4.4); Hematocrit 32.3 % (36.0-45.0); Lymphocytes % 41.9 % (15.3-44.8); MCH 30.6 pg (27.0-35.0); MCV 87.2 fL (80-100); MPV 8.6 fL (7.6-11.3); Monocytes % 8.4 % (3.3-12.3); RBC Red Blood Cell Count 3.71 M/uL (3.86-4.86)
[2017-11-29 05:47] LABS: Albumin 2.7 g/dL (3.4-5.0); Bilirubin Total 0.2 mg/dL (0.2-1.0); Potassium 3.6 mmol/L (3.5-5.1); Protein, Total 6.6 g/dL (6.4-8.2)
[2017-11-29] MEDS ORDERED: POTASSIUM CL SA 10 MEQ TAB PO ONE (06:30)
[2017-11-29] MEDS: INSULIN -REGULAR HUMAN 50 UNIT/0.5 ML ML SQ SCH ×2 (09:41→13:03)
[2017-11-29 14:52] VITALS: O2SAT 96
--- NOTE | 2017-11-29 16:49 | PN ---
Date of Progress Note: 11/29/2017 Subjective: The patient is awake and alert, feels much better. Objective: Vital signs stable, afebrile. Diagnostic Data: CT scan of the abdomen and pelvis reveals no change in the appearance of the append ix. She does have a hemorrhagic cyst in the right ovary. Abdomen is benign. Assessment: Urinary tract infection and right hemorrhagic cyst. Recommendation: The patient is cleared for discharge. She has no evidence of acute appendicitis fro m a surgery standpoint. She does need to follow up with [employer] and antibiotics per the hospitalist. Re consult Surgery p.r.n. /MODL Voice ID: [id number] Report ID: [id number]
[2017-11-29 17:37] VITALS: BP 125/77; TEMP 98.2
[2017-11-29] MEDS ORDERED: CEFUROXIME 250 MG TAB PO SCH (21:00)
--- NOTE | 2017-11-30 06:13 | DS ---
Date of Discharge: 11/29/2017 Consultants: Dr. Null, General Surgery. Admitting Diagnoses: 1. Right lower quadrant abdominal pain. 2. Appendicolith, possible distal appendicitis. 3. Acute cystitis with hematuria, pyelonephritis. 4. Noncompliance with metformin. 5. Essential hypertension. 6. Diabetes mellitus type 2 with hyperglycemia, [id number]. 7. Hypothyroidism. 8. Overweight. Discharge Diagnoses: 1. Right lower quadrant abdominal pain radiating to the flanks, likely secondary to pyelonephritis, improving. 2. Acute pyelonephritis secondary to Escherichia coli. 3. Appendicoliths. 4. Noncompliance to metformin due to side effects. 5. Diabetes mellitus type 2 with hyperglycemia, [id number], uncontrolled. Hemoglobin A1c 11.5%. 6. Essential hypertension, uncontrolled. 7. Hypothyroidism. TSH normal. 8. Overweight, body mass index 26. Hospital Course: The patient is a 42-year-old female, who came into the hospital with abdominal pain. The patient had pain in her right lower quadrant , has been going on for weeks. Her CT scan of the abdomen initially done without contrast showed borderline enlargement of distal appendix, equivocal for distal tip appendicitis. She did have a hemorrhagic cyst in the right adnexa. The patient was admitted to the hospital for possible appendicitis, she was found to have a UTI and was started on IV antibiotics. The patient's urine culture grew out E coli and was essentially pansensitive. The patient developed some diarrhea, however, C diff was ruled out. The patient's hemoglobin A1c was 11.5%. She was counseled extensively regarding her diabetes. She will be set up for diabetic education as an outpatient. The patient states that she is noncompliant with metformin due to the side effects. After a long discussion regarding the benefit of metformin showing mortality benefit, she still is not willing to take metformin, however, she is willing to take insulin. She understands that this is not first line therapy. However, given her hemoglobin A1c, she will need insulin and she will need to check her blood glucose levels at least twice a day as she gets used to insulin. Nurse was instructed to teach the patient regarding insulin shots and to give the patient education regarding hypoglycemia. The patient will be started on glipizide as well. Regarding her blood pressure, mainly in the 110s to 120s, not sustained above 130 for any period of time therefore, we will hold off on starting blood pressure medications. The patient will need to establish care with a primary care physician. She understands that she may develop side effects from diabetes if not already, including nephropathy and neuropathy, as well as risks for cardiovascular stroke. The patient will need annual podiatry exams and dilated rectal exams. Regarding her CT scan which was repeated with contrast as to rule out appendicitis, repeat CT scan did not show any changes for developing acute appendicitis. She did have a hemorrhagic right ovarian cyst. The patient also had a transvaginal ultrasound done due to endometrial hyperplasia. She was found to have a 17 mm endometrial stripe that is thickened and fibroids. The patient will need to follow up with [facility] to have a biopsy done of her endometrium to rule out cancer. She does have a strong family history with a sister with uterine cancer. The patient voiced understanding. The patient states that she will be following up with her sister 's [facility], understands the importance of endometrial biopsy. She understands that if she does not evaluate this hyperplasia, it may returned case inspector to be cancerous and can be too significant morbidity and mortality. The patient was then doing well. She was able to tolerate her diet. Dr. Null with General Surgery was also consulted, did not feel that this was appendicitis. Her antibiotics were switched to p.o. after her urine culture grew out E coli. The patient was cleared for this standpoint. The patient was then discharged home in stable condition. Activity: As tolerated. Medications: As per medication reconciliation list. Diet: Diabetic diet. Followup: With [facility] in 2 weeks, establish care with PCP in 2 to3 days, diabetic education, and return to ER for worsening condition. Physical Examination: General: Awake, alert, oriented x3. No acute distress. CV: S1, S2. No murmurs. Respiratory: Moving air well bilaterally. Abdomen: Soft, nontender, nondistended. Positive bowel sounds. Extremities: No clubbing, cyanosis, or edema. Neurologic: Nonfocal. Total time spent DC pt was 39 minutes. MARQUISE Voice ID: [id number] Report ID: [id number] [facility]
== END 2017-11-29 16:13 | disposition home or self-care (01) | DRG 690 ==
LOC: ER 12:32 → ERHOLD 15:48 → 2ND 17:19 → OBSVTOIN 11-27 10:47
PROVIDERS: ADMIT Family Medicine; ATTEND Family Medicine
DX: N10 Acute pyelonephritis (principal); B96.20 Unspecified Escherichia coli [E. coli] as the cause of diseases classified elsewhere; K38.1 Appendicular concretions; E11.65 Type 2 diabetes mellitus with hyperglycemia; Z79.84 Long term (current) use of oral hypoglycemic drugs; T38.3X6A Underdosing of insulin and oral hypoglycemic [antidiabetic] drugs, initial encounter; Z91.128 Patient's intentional underdosing of medication regimen for other reason; Y92.019 Unspecified place in single-family (private) house as the place of occurrence of the external cause; I10 Essential (primary) hypertension; E03.9 Hypothyroidism, unspecified; E66.3 Overweight; Z68.26 Body mass index [BMI] 26.0-26.9, adult; N85.00 Endometrial hyperplasia, unspecified; N83.201 Unspecified ovarian cyst, right side; K21.9 Gastro-esophageal reflux disease without esophagitis; E78.00 Pure hypercholesterolemia, unspecified; N94.10 Unspecified dyspareunia
CPT/HCPCS: 36415; 74177; 76830; 80048; 80053; 80076; 81003; 81015; 81025; 82962; 83036; 83690; 83735; 84443; 85025; 87077; 87086; 87088; 87186; 87493; 94760; 96361; 96374; 99285; G0008; G0378; J0696; J2405; J2543; J7030; Q2035; Q9967

== ENCOUNTER 2018-05-17 15:09 | Emergency (ER) | payer SELFPAY ==
--- OUTSIDE RECORDS SUMMARY | 2018-05-17 15:12 | XMS REPORT ---
:1975 [facility] Address [address] [place] [address] Care Team Providers Name Role Phone Unavailable Unavailable Unavailable Problems This patient has no known problems. Allergies, Adverse Reactions, Alerts This patient has no known allergies or adverse reactions. Medications This patient has no known medications.
[2018-05-17] MEDS ORDERED: MAGNE/ALUM HYDROXD 30 ML UCUP ONE (16:03)
[2018-05-17] MEDS ORDERED: MORPHINE 4 MG/ML SYR ONE (16:04)
[2018-05-17] MEDS ORDERED: ONDANSETRON 4 MG/2 ML VIAL ONE ×2 (16:04→17:21)
[2018-05-17] MEDS ORDERED: FAMOTIDINE 20 MG/2 ML VIAL IV ONE (16:04)
[2018-05-17] MEDS ORDERED: LIDOCAINE VISCOUS 2% SOLN 15 ML UDC ONE (16:04)
[2018-05-17] MEDS ORDERED: NA CHLORIDE 0.9% 1,000 ML ONE (16:04)
[2018-05-17 16:18] LABS: Urine Blood TRACE (NEG); Urine Glucose 2+ (NEG); Urine Protein 1+ (NEG)
[2018-05-17 16:33] LABS: Absolute Lymphocytes (CBC) 2.9 K/uL (0.7-4.9); Absolute Monocytes 0.6 K/uL (0.1-1.3); Absolute Neutrophil 5.5 K/uL (1.8-8.0); Basophils % 0.5 % (0-1.3); Eosinophils % 0.9 % (0-4.4); Lymphocytes % 31.7 % (15.3-44.8); MPV 8.9 fL (7.6-11.3); Monocytes % 6.4 % (3.3-12.3); RBC Red Blood Cell Count 4.21 M/uL (3.86-4.86)
[2018-05-17 16:51] LABS: ALT/SGPT 18 U/L (12-78); AST/SGOT 14 U/L (15-37); Albumin 3.6 g/dL (3.4-5.0); Alkaline Phosphatase 103 U/L (45-117); BUN Blood Urea Nitrogen 22 mg/dL (7-18); Bicarbonate 26 mmol/L (21-32); Bilirubin Direct < 0.1 mg/dL (0-0.2); Bilirubin Total 0.2 mg/dL (0.2-1.0); Lipase 198 U/L (73-393); Potassium 4.4 mmol/L (3.5-5.1); Protein, Total 8.6 g/dL (6.4-8.2); Sodium Level 135 mmol/L (136-145)
[2018-05-17 16:52] LABS: Glucose Level 433 mg/dL (74-106)
[2018-05-17] MEDS ORDERED: CEFTRIAXONE/SWI 1gm 1 GM/10 ML SYR ONE (17:10)
--- NOTE | 2018-05-17 17:12 | RAD REPORT ---
EXAM DESCRIPTION: US - Abdomen Exam Limited - 05/17/2018 5:04 pm CLINICAL HISTORY: Right upper quadrant pain COMPARISON: CT study November 2017 FINDINGS: Multiple small sub centimeter gallstones are layering in the dependent portion of the gall bladder. There is no wall thickening or pericholecystic fluid. No common duct stone or biliary tree dilatation identified. IMPRESSION: Multiple small mobile gallstones. No other significant gallbladder or biliary tree findi ng.
[2018-05-17] MEDS ORDERED: NA CHLORIDE 0.9% 100 ML IV ONE (18:26)
[2018-05-17] MEDS ORDERED: METOCLOPRAMIDE 10 MG/2mL INJ ONE (18:26)
--- NOTE | 2018-05-17 20:09 | EDPHYS ---
Physician Documentation [facility] Name: Elsy Bradford Age: 43 yrs Sex: Female : 1975 Arrival Date: 05/17/2018 Time: 15:11 Bed 13 Private MD: ED Physician Hugh Fregoso HPI: 05/17 15:56 This 43 yrs old Female presents to ER via Ambulatory with complaints of ma2 Abdominal Pain. 15:56 Onset: The symptoms/episode began/occurred gradually, 3 day(s) ago. Associated signs ma2 and symptoms: Pertinent positives: vomiting, Pertinent negatives: anorexia, constipation, fever, headache. The symptoms are described as constant. Severity of pain: At its worst the pain was moderate in the emergency department the pain is unchanged. The patient has not experienced similar symptoms in the past. 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 - Social history:: Smoking status: Patient uses tobacco products, denies chronic smoking, but will smoke occasionally, Patient/guardian denies using alcohol, street drugs, The patient lives with family. - Ebola Screening: : No symptoms or risks identified at this time. - Family history:: not pertinent. ROS: 15:56 Constitutional: Negative for fever, chills, and weight loss. ma2 15:56 Abdomen/GI: Positive for abdominal pain, Negative for nausea, rectal pain, bowel incontinence. 15:56 All other systems are negative. Exam: 15:56 Constitutional: This is a well developed, well nourished patient who is awake, alert, ma2 and in no acute distress. 15:56 Chest/axilla: Normal chest wall appearance and motion. Nontender with no deformity. No lesions are appreciated. Cardiovascular: Regular rate and rhythm with a normal S1 and S2. No gallops, murmurs, or rubs. Normal PMI, no JVD. No pulse deficits. Respiratory: Lungs have equal breath sounds bilaterally, clear to auscultation and percussion. No rales, rhonchi or wheezes noted. No increased work of breathing, no retractions or nasal flaring. Abdomen/GI: Soft, non-tender, with normal bowel sounds. No distension or tympany. No guarding or rebound. No evidence of tenderness throughout. MS/ Extremity: Pulses equal, no cyanosis. Neurovascular intact. Full, normal range of motion. 15:56 Abdomen/GI: Inspection: abdomen appears normal. Vital Signs: 15:18 BP 137 / 95; Pulse 88; Resp 18 S; Temp 98.0(TE); Pulse Ox 100% on R/A; Pain 8/10; aa5 16:25 BP 157 / 97; Pulse 76; Resp 17; Pulse Ox 100% on R/A; tw2 17:21 BP 163 / 94; Pulse 85; Resp 17; Pulse Ox 99% on R/A; Pain 8/10; tw2 18:23 BP 140 / 97; Pulse 71; Resp 17; Pulse Ox 100% on R/A; tw2 19:00 BP 133 / 75; Pulse 75; Resp 17; Temp 98.1; Pulse Ox 99% ; Pain 0/10; rr5 20:00 BP 130 / 65; Pulse 69; Resp 16; Pulse Ox 98% ; rr5 20:45 BP 131 / 63; Pulse 75; Resp 17; Pulse Ox 98% ; rr5 MDM: 15:19 Patient medically screened. health system 15:56 Differential diagnosis: gastritis, gastroesophageal reflux disease, Irritable bowel ma2 syndrome, pancreatitis, Pyelonephritis. 18:27 Data reviewed: vital signs, nurses notes. Counseling: I had a detailed discussion with health system the patient and/or guardian regarding: the historical points, exam findings, and any diagnostic results supporting the discharge/admit diagnosis, the presence of at least one elevated blood pressure reading (>120/80) during this emergency department visit, the need for outpatient follow up. Response to treatment: the patient's symptoms have resolved after treatment. 05/17 15:20 Order name: Basic Metabolic Panel; Complete Time: 16:53 health system 05/17 15:20 Order name: CBC with Diff; Complete Time: 16:35 health system 05/17 15:20 Order name: Creatinine for Radiology; Complete Time: 16:53 ma05/17 15:20 Order name: Hepatic Function; Complete Time: 16:53 health system 05/17 15:20 Order name: Lipase; Complete Time: 16:53 me05/17 16:06 Order name: Urine Dipstick--Ancillary (enter results); Complete Time: 16:35 05/17 15:46 Order name: Abdomen Limited US; Complete Time: 17:33 me2 05/17 16:06 Order name: Urine --Ancillary (enter results); Complete Time: 16:35 05/17 15:20 Order name: IV Saline Lock; Complete Time: 15:44 2 05/17 15:20 Order name: Labs collected and sent; Complete Time: 15:44 me05/17 15:20 Order name: Urine Dipstick-Ancillary (obtain specimen); Complete Time: 15:44 ma2 Administered Medications: 15:50 Drug: NS 0.9% 1000 ml Route: IV; Rate: 1 bolus; Site: right antecubital; tw2 16:55 Follow up: Response: No adverse reaction; IV Status: Completed infusion; IV Intake: tw2 1000ml 15:50 Drug: Pepcid 20 mg Route: IVP; Site: right antecubital; tw2 16:45 Follow up: Response: No adverse reaction tw2 15:54 Drug: Zofran 4 mg Route: IVP; Site: right antecubital; tw2 16:45 Follow up: Response: No adverse reaction tw2 15:55 Drug: GI Cocktail without - (Maalox Suspension 30 ml, Lidocaine Liquid 2 % 15 tw2 ml) Route: PO; 16:56 Follow up: Response: No adverse reaction tw2 15:58 Drug: morphine 4 mg Route: IVP; Site: right antecubital; tw2 16:45 Follow up: Response: No adverse reaction; Pain is decreased tw2 17:11 Drug: Zofran 4 mg Route: IVP; Site: right antecubital; tw2 17:43 Follow up: Response: No adverse reaction tw2 17:20 Drug: Rocephin 1 grams Route: IV; Rate: calculated rate; Site: right antecubital; tw2 17:27 Follow up: Response: No adverse reaction; IV Status: Completed infusion tw2 18:22 Drug: metoCLOPramide 20 mg Route: IVP; Site: right antecubital; tw2 18:42 Follow up: Response: No adverse reaction tw2 Disposition: 05/17/18 20:09 Discharged to Home. Impression: Cystitis, unspecified without hematuria, Cholelithiasis. - Condition is Stable. - Discharge Instructions: Urinary Tract Infection, Adult, Cholelithiasis. - Prescriptions for Tylenol- Codeine #3 300-30 mg Oral Tablet - take 2 tablet by ORAL route every 6 hours As needed; 30 tablet. Zofran 4 mg Oral Tablet - take 1 tablet by ORAL route every 12 hours As needed; 20 tablet. Bactrim DS 800- 160 mg Oral Tablet - take 1 tablet by ORAL route every 12 hours for 3 days; 6 tablet. - Work release form, Medication Reconciliation Form, Thank You Letter, Antibiotic Education, Prescription Opioid Use form. - Follow up: Dr. Loyd Null; When: 1 - 2 days; Reason: Continuance of care. Follow up: Private Physician; When: Tomorrow; Reason: Continuance of care. Signatures: Dispatcher [employer] EDMagdalena Sosa RN RN aa5 Angelina Botello RN RN tw2 Hugh Fregoso MD MD ma2 Osmar Aggarwal RN RN rr5 Corrections: (The following items were deleted from the chart) 20:59 20:09 05/17/2018 20:09 Discharged to Home. Impression: Cystitis, unspecified without rr5 hematuria; Cholelithiasis. Condition is Stable. Discharge Instructions: Urinary Tract Infection, Adult, Cholelithiasis. Prescriptions for Tylenol-Codeine #3 300-30 mg Oral Tablet - take 2 tablet by ORAL route every 6 hours As needed; 30 tablet, Zofran 4 mg Oral Tablet - take 1 tablet by ORAL route every 12 hours As needed; 20 tablet, Bactrim DS 800-160 mg Oral Tablet - take 1 tablet by ORAL route every 12 hours for 3 days; 6 tablet. and Forms are Work release form, Medication Reconciliation Form, Thank You Letter, Antibiotic Education, Prescription Opioid Use. Follow up: Dr. Loyd Null; When: 1 - 2 days; Reason: Continuance of care. Follow up: Private Physician; When: Tomorrow; Reason: Continuance of care. ma2
--- NOTE | 2018-05-17 20:09 | ER ---
Nurse's Notes [facility] Name: Elsy Bradford Age: 43 yrs Sex: Female : 1975 Arrival Date: 05/17/2018 Time: 15:11 Bed 13 Private MD: Diagnosis: Cystitis, unspecified without hematuria;Cholelithiasis Presentation: 05/17 15:16 Presenting complaint: Patient states: RUQ pain with nausea/vomiting x 1-2 week ago. aa5 Transition of care: patient was not received from another setting of care. Onset of symptoms was 2018. Risk Assessment: Do you want to hurt yourself or someone else? Patient reports no desire to harm self or others. Initial Sepsis Screen: Does the patient meet any 2 criteria? No. Patient's initial sepsis screen is negative. Does the patient have a suspected source of infection? No. Patient's initial sepsis screen is negative. Care prior to arrival: None. 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 - Social history:: Smoking status: Patient uses tobacco products, denies chronic smoking, but will smoke occasionally, Patient/guardian denies using alcohol, street drugs, The patient lives with family. - Ebola Screening: : No symptoms or risks identified at this time. - Family history:: not pertinent. Screenin:19 Abuse screen: Denies threats or abuse. Nutritional screening: No deficits noted. tw2 Tuberculosis screening: No symptoms or risk factors identified. Fall Risk None identified. Assessment: 15:28 General: Appears in no apparent distress. well groomed, Behavior is calm, cooperative, tw2 appropriate for age. Pain: Complains of pain in right upper quadrant. Neuro: Level of Consciousness is awake, alert, obeys commands, Oriented to person, place, time, situation. Cardiovascular: Heart tones S1 S2 Patient's skin is warm and dry. Respiratory: Airway is patent Respiratory effort is even, unlabored, Respiratory pattern is regular, symmetrical, Breath sounds are clear bilaterally. GI: Abdomen is round non-distended, Bowel sounds present X 4 quads. Abd is soft X 4 quads Reports upper abdominal pain, nausea, vomiting. : No signs and/or symptoms were reported regarding the genitourinary system. EENT: No signs and/or symptoms were reported regarding the EENT system. Derm: No signs and/or symptoms reported regarding the dermatologic system. Musculoskeletal: No signs and/or symptoms reported regarding the musculoskeletal system. Range of motion: intact in all extremities. 16:26 Reassessment: Patient appears in no apparent distress at this time. No changes from tw2 previously documented assessment. Patient and/or family updated on plan of care and expected duration. Pain level reassessed. Patient is alert, oriented x 3, equal unlabored respirations, skin warm/dry/pink. 17:21 Reassessment: Patient and/or family updated on plan of care and expected duration. Pain tw2 level reassessed. Patient is alert, oriented x 3, equal unlabored respirations, skin warm/dry/pink. provider notified. Patient states symptoms have not improved. 18:23 Reassessment: No changes from previously documented assessment. Patient and/or family tw2 updated on plan of care and expected duration. Pain level reassessed. Patient is alert, oriented x 3, equal unlabored respirations, skin warm/dry/pink. Patient states symptoms have not improved. 19:00 General: Appears in no apparent distress. comfortable, Behavior is calm, cooperative, rr5 appropriate for age. Pain: Denies pain. Neuro: Level of Consciousness is awake, alert, obeys commands, Oriented to person, place, time, situation. Cardiovascular: Capillary refill < 3 seconds Patient's skin is warm and dry. Respiratory: Airway is patent Respiratory effort is even, unlabored, Respiratory pattern is regular, symmetrical. GI: Abdomen is round non-distended, Reports upper abdominal pain. : No signs and/or symptoms were reported regarding the genitourinary system. EENT: No signs and/or symptoms were reported regarding the EENT system. Derm: No signs and/or symptoms reported regarding the dermatologic system. Derm: Skin is intact, Skin temperature is warm. Musculoskeletal: No signs and/or symptoms reported regarding the musculoskeletal system. 20:00 Reassessment: Patient appears in no apparent distress at this time. Patient is alert, rr5 oriented x 3, equal unlabored respirations, skin warm/dry/pink. Patient denies pain at this time. Patient states symptoms have improved. 20:50 Reassessment: Patient appears in no apparent distress at this time. Patient is alert, rr5 oriented x 3, equal unlabored respirations, skin warm/dry/pink. discharge instruction given and explained without complaints made. Vital Signs: 15:18 BP 137 / 95; Pulse 88; Resp 18 S; Temp 98.0(TE); Pulse Ox 100% on R/A; Pain 8/10; aa5 16:25 BP 157 / 97; Pulse 76; Resp 17; Pulse Ox 100% on R/A; tw2 17:21 BP 163 / 94; Pulse 85; Resp 17; Pulse Ox 99% on R/A; Pain 8/10; tw2 18:23 BP 140 / 97; Pulse 71; Resp 17; Pulse Ox 100% on R/A; tw2 19:00 BP 133 / 75; Pulse 75; Resp 17; Temp 98.1; Pulse Ox 99% ; Pain 0/10; rr5 20:00 BP 130 / 65; Pulse 69; Resp 16; Pulse Ox 98% ; rr5 20:45 BP 131 / 63; Pulse 75; Resp 17; Pulse Ox 98% ; rr5 ED Course: 15:11 Patient arrived in ED. as 15:16 Triage completed. aa5 15:16 Arm band placed on. aa5 15:18 Angelina Botello RN is Primary Nurse. tw2 15:19 Hugh Fregoso MD is Attending Physician. ma2 15:19 Bed in low position. Call light in reach. Pulse ox on. NIBP on. tw2 15:30 Inserted saline lock: 22 gauge in right antecubital area, using aseptic technique. tw2 Blood collected. 17:05 Abdomen Limited US In Process Unspecified. EDMS 19:00 Report given to KARELY Prasad. tw2 19:44 Primary Nurse role handed off by Angelina Botello RN ed1 20:09 Loyd Null MD is Referral Physician. ma2 20:48 Osmar Aggarwal RN is Primary Nurse. rr5 20:55 No provider procedures requiring assistance completed. IV discontinued, intact, rr5 bleeding controlled, No redness/swelling at site. Pressure dressing applied. Administered Medications: 15:50 Drug: NS 0.9% 1000 ml Route: IV; Rate: 1 bolus; Site: right antecubital; tw2 16:55 Follow up: Response: No adverse reaction; IV Status: Completed infusion; IV Intake: tw2 1000ml 15:50 Drug: Pepcid 20 mg Route: IVP; Site: right antecubital; tw2 16:45 Follow up: Response: No adverse reaction tw2 15:54 Drug: Zofran 4 mg Route: IVP; Site: right antecubital; tw2 16:45 Follow up: Response: No adverse reaction tw2 15:55 Drug: GI Cocktail without - (Maalox Suspension 30 ml, Lidocaine Liquid 2 % 15 tw2 ml) Route: PO; 16:56 Follow up: Response: No adverse reaction tw2 15:58 Drug: morphine 4 mg Route: IVP; Site: right antecubital; tw2 16:45 Follow up: Response: No adverse reaction; Pain is decreased tw2 17:11 Drug: Zofran 4 mg Route: IVP; Site: right antecubital; tw2 17:43 Follow up: Response: No adverse reaction tw2 17:20 Drug: Rocephin 1 grams Route: IV; Rate: calculated rate; Site: right antecubital; tw2 17:27 Follow up: Response: No adverse reaction; IV Status: Completed infusion tw2 18:22 Drug: metoCLOPramide 20 mg Route: IVP; Site: right antecubital; tw2 18:42 Follow up: Response: No adverse reaction tw2 Intake: 16:55 IV: 1000ml; Total: 1000ml. tw2 Outcome: 20:09 Discharge ordered by . ma2 20:55 Discharged to home ambulatory, with family. rr5 20:55 Condition: stable 20:55 Discharge instructions given to patient, Instructed on discharge instructions, follow up and referral plans. medication usage, Demonstrated understanding of instructions, follow-up care, medications, Prescriptions given X 2. 20:59 Patient left the ED. rr5 Signatures: Dispatcher [employer] EDMS Anne Kohler Audri, RN RN aa5 Bella Couch RN RN ed1 Angelina Botello RN RN tw2 Hugh Fregoso MD MD ma2 Osmar Aggarwal RN RN rr5 Corrections: (The following items were deleted from the chart) ::59 No provider procedures requiring assistance completed. rr5 rr5 : 21:59 IV discontinued, intact, bleeding controlled, No redness/swelling at site. rr5 Pressure dressing applied, rr5
[2018-05-17 21:14] VITALS: TEMP 98
[2018-05-17 21:17] VITALS: BP 140/97; O2SAT 100
== END 2018-05-17 20:59 | disposition home or self-care (01) ==
LOC: ER 15:09
DX: N30.90 Cystitis, unspecified without hematuria (principal); K80.20 Calculus of gallbladder without cholecystitis without obstruction; Z72.0 Tobacco use
CPT/HCPCS: 36415; 76705; 80048; 80076; 81003; 81025; 83690; 85025; 96361; 96374; 96375; 99284; J0696; J2405; J2765; J7030

== ENCOUNTER 2021-04-11 13:43 | Emergency (ER) | payer SELFPAY ==
--- OUTSIDE RECORDS SUMMARY | 2021-04-11 13:45 | XMS REPORT | Continuity of Care Document ---
:1975 Author Organization [facility] t Address [address] [place] [address] Care Team Providers Name Role Phone PCP, DOES NOT HAVE A Primary Care Physician Unavailable UNKNOWN Attending Clinician Unavailable EDEN Attending Clinician Unavailable Eden Attending Clinician Mary Jo ALVAREZ Attending Clinician Unavailable Chaparro LEVY Attending Clinician Unavailable BETTY MOISE Attending Clinician Unavailable BETTY MOISE Admitting Clinician Unavailable Payers Payer Name Policy Type Policy Number Effective Date Expiration Date S ede [employer] [id number] 2019 ANGEL 0-100% 00:00:00 Problems Condition Condition Condition Status Onset Resolution Last Treating Co mments Source Name Details Category Date Date Treatment Clinician Date Screening Screening Disease Active Uni vers examinatio examinatio 08-20 it y of n [place] STD [place] Medi regine transmitte transmitte Br anch d disease) d disease) Elevated Elevated Disease Active Unive rs blood blood - ity of pressure pressure 00:00: [place] reading reading 00 Medical without without Branch diagnosis diagnosis of of hypertensi hypertensi on on BMI BMI Disease Active Univers 27.0-27.9, 27.0-27.9, 7-13 it y of adult adult 00:00: [place] 00 Medical Branch Pain Pain Disease Active Univers pelvic pelvic 08-20 ity of 00:00: [place] 00 Medical Branch Allergies, Adverse Reactions, Alerts Allergy Allergy Status Severity Reaction(s) Onset Inactive Treating Comm ents Source Name Type Date Date Clinician NO KNOWN Drug Active Univers ALLERGIE Class ity of S [place] Medical [place] Social History Social Habit Start Date Stop Date Quantity Comments Source Exposure to Not sure [facility] SARS-CoV-2 (event) Medica l Branch Alcohol intake 2021-04-07 2021-04-07 .14 /d [facility] 00:00:00 00:00:00 Medical Branch Tobacco use and 2019-08-21 2019-08-21 Never used [facility] exposure 00:00:00 00:00:00 Medical Branch History [facility] 2019-08-21 2019-08-21 2 [facility] Alcohol Frequency 00:00:00 00:00:00 Medical Branch History [facility] 2019-08-21 2019-08-21 1 [facility] Alcohol Std Drinks 00:00:00 00:00:00 Medica l Branch History [facility] 2019-08-21 2019-08-21 1 [facility] Alcohol Binge 00:00:00 00:00:00 Medical Bra [facility] Alcohol Comment 2019-08-21 2019-08-21 social [facility] 00:00:00 00:00:00 Medical Branch Sex [birth year] [facility] 00:00:00 00:00:00 Medical Branch Smoking Status Start Date Stop Date Source Never smoker [facility] Medications Ordered Filled Start Stop Current Ordering Indication Dosage Frequency Signature Comments Components Source Medication Medication Date Date Medication? Clinician (SIG) Name Name pantoprazol Yes 40mg 40 mg, Univ ers e 04-08 Slow IV ity of (PROTONIX) 14:00: Push, [place] injection 00 Q12H, Medical 40 mg First dose Branch on Wed04/08/21 at 0800, Until Discontinu ed diphenhydrA No 50mg 50 mg, Uni vers MINE 04-08 Intravenou ity of (BENADRYL) 07:00: 06:02 s, ONCE, 1 [place] injection 00 :00 dose, On Medica l 50 mg [facility] 04/08/21 Branch at 0100, FRANK metoclopram 2021- No 10mg 10 mg, Uni vers torrey HCl 04-08 Slow IV ity of (REGLAN) 07:00: 06:03 Push, [place] injection 00 :00 ONCE, 1 Medical 10 mg dose, On Branch Wed04/08/21 at 0100, FRANK iopamidol 0 202- No [id number] 120mL 120 mL, Univers (ISOVUE 04-08 Intravenou ity o f 370-500 mL) 05:45: 04:33 s, ONCE, 1 [place] injection 00 :00 dose, On Medica l 120 mL [facility] 04/07/21 at 2345, Routine ondansetron 2021- No 4mg 4 mg, Slow Univers (ZOFRAN 04-08 IV Push, ity of (PF)) 05:00: 04:06 ONCE, 1 [place] injection 4 00 :00 dose, On Medi regine mg [facility] 04/07/21 at 2300, Routine NaCl 0.9% 2021- No 30mL/kg at 999 Un micky (NS) bolus 04-0801 mL/hr, ity of infusion 05:00: 07:05 1,836 [place] 1,836 mL 00 :00 (30 mL/kg Medica l ?61.2 kg), Branch IV Piggyback, ONCE, 1 dose, On Wed04/07/21 at 2300, STAT NaCl 0.9% 2021- No 1000mL at 999 Uni vers (NS) bolus 04-08 mL/hr, ity of infusion 04:00: 06:03 1,000 mL, Geraldo as 1,000 mL 00 :00 IV Medical Infusion, Branch ONCE, 1 dose, On Wed04/07/21 at 2200, STAT morpHINE Yes 4mg 4 mg, Slow Uni vers injection 4 01 IV Push, ity of mg 03:52: Q4HPRN, [place] 32 Starting Medical on Wed [place] 04/07/21 at 2152, Until Discontinu ed, Routine, Pain (scale 7-10) ondansetron Yes [id number] 4mg Take 1 Univers 4 mg 3- tablet by ity of disintegrat 00:00: mouth [place] ing tablet 00 every 8 Medica l (eight) Branch hours as needed for Nausea and Vomiting (N/V). amoxicillin 2021- Yes [id number] 1{tbl} Take 1 Univers -clavulanat 3- 03-09 tablet by it y of e 875-125 00:00: 05:59 mouth [place] mg per 00 :00 every 12 Medical tablet (twelve) Branch hours for 7 days. sulfamethox Yes [id number] 1{tbl} Take 1 Univers azole-trime - 9109 tablet by ity of thoprim 00:00: mouth [place] 800-160 mg 00 every 12 Medic al per tablet (twelve) Branc h hours. glipiZIDE 5 Yes [id number] 5mg Take 1 Univers mg tablet 05-08 tablet by ity o f 00:00: mouth [place] 00 daily. Medical [place] Vital Signs Vital Name Observation Time Observation Value Comments Source Systolic blood 2021-04-08 06:24:00 154 mm[Hg] [facility] Diastolic blood 2021-04-08 06:24:00 87 mm[Hg] [facility] Heart rate 2021-04-08 06:24:00 83 /min [facility] Respiratory rate 2021-04-08 06:24:00 12 /min [facility] Oxygen saturation in 2021-04-08 06:24:00 95 /min [facility] Arterial blood by [facility] Pulse oximetry Branch Body temperature 2021-04-08 03:44:00 36.83 Samantha [facility] Body height 2021-04-08 03:44:00 149.9 cm [facility] Body weight 2021-04-08 03:44:00 61.236 kg [facility] BMI 2021-04-08 03:44:00 27.27 kg/m2 [facility] Procedures Procedure Date / Time Performed Performing Clinician Sourc e LACTIC ACID WHOLE 2021-04-08 06:40:00 Steven Eden [facility] CT ABDOMEN PELVIS W 2021-04-08 04:35:28 Steven Eden [facility] POCT TEST 2021-04-08 04:24:00 Steven Eden [facility] URINALYSIS 2021-04-08 04:22:00 Singer [facility] LACTIC ACID WHOLE 2021-04-08 04:06:00 Singer [facility] BLOOD [facility] COMP. METABOLIC PANEL 2021-04-08 03:59:00 Steven [facility] ([id number]) [facility] CBC WITH DIFF 2021-04-08 03:59:[address] [facility] [place] [place] POCT GLUCOSE 2021-04-08 03:55:00 Singer [facility] (AUTOMATED) [facility] NOTICE OF PRIVACY 2021-04-08 03:32:24 Doctor Unassigned, No Univ [facility] PRACTICES Name Medical [place] CONSENT/REFUSAL FOR 2021-04-08 03:29:53 Doctor Unassigned, No [facility] DIAGNOSIS AND Name Medical [place] TREATMENT Encounters Start End Encounter Admission Attending Care Care Encounter Source Date/Time Date/Time Type Type Clinicians Facility Department ID 2020-12-08 Emergency [facility] [id number] Univers 09:56:25 [facility] 2021-04-11 2021-04-11 Outpatient R [facility] [id number] Univers 14:20:00 14:20:00 [id number] [facility] 2021-04-11 2021-04-11 Outpatient R UNKNOWN, [facility] [id number] Univers 14:20:00 14:20:00 ATTENDING [facility] 2021-04-07 2021-04-08 Emergency X [facility] ERT [id number] Univers 21:43:00 01:09:00 STEVEN [facility] 2021-04-07 2021-04-08 Emergency [facility] [id number] Univers 21:43:00 01:09:00 Steven DAVISON [id number] i [facility] [id number] [facility] [id number] [place] [id number] Branch 2019-08-25 2019-08-25 Outpatient R AKINSIPE, [facility] [id number] Univers 15:00:00 15:00:00 BILLIE [id number] ity o f [facility] 2019-08-21 2019-08-21 Outpatient R CAM, [facility] [id number] Univers 08:00:00 08:00:00 PATRIA ity o f [facility] 2019-07-24 2019-07-25 Emergency X Santos [facility] ERT [id number] Univers 21:47:47 02:18:00 [facility] Results Test Description Test Time Test Comments Results Result Comments Source POCT TEST 2021-04-08 04:24:00 Test Item Value Reference Range Interpretation Comme nts POCT PREG (test code = 1605) negative On board controls acceptable with C Line (test code = 3574) present POCT PREG LOT # (test code = 3575) [id number] POCT PREG TEST DATE (test code = 3576) Lab Interpretation (test code = 05910-0) [facility]2021-04-08 04:22:29 Test Item Value Reference Range Interpretation Comments NA (test code = 138 mmol/L 135-145 0126568492) K (test code = 4.6 mmol/L 3.5-5.0 8679821563) CL (test code = 102 mmol/L 98-108 8493567920) CO2 TOTAL (test code = 20 mmol/L 23-31 L 3098443126) AGAP (test code = 2-16 1023096911) BUN (test code = 21 mg/dL 7-23 4218707903) GLUCOSE (test code = 318 mg/dL 70-110 H 2730842973) CREATININE (test code = 1.36 mg/dL 0.50-1.04 H 5729886545) TOTAL BILI (test code = 0.6 mg/dL 0.1-1.3 0330625880) CALCIUM (test code = 9.4 mg/dL 8.6-10.6 0335468123) T PROTEIN (test code = 8.1 g/dL 6.3-8.2 5909334053) ALBUMIN (test code = 4.3 g/dL 3.5-5.0 6314591396) ALK PHOS (test code = 139 U/L 34-122 H 2504679668) ALTv (test code = 18 U/L 5-35 2-6) AST(SGOT) (test code = 23 U/L 13-40 4083596219) eGFR (test code = mL/min/1.73m2 6369599479) CLEMENTINE (test code = CLEMENTINE) Association of Glomerular Filtration Rate (GFR) and Staging of Kidney Disease* + --+ --+ ------+| GFR (mL/min/1.73 m2) ?| With Kidney Damage ?| ?Without Kidney Damage+ --------+ --------+ +| ?>90 ?| ?Stage one ?| ? Normal ?+ ---+ ---+ -------+| ?60-89 ?| ?Stage two ?| ? Decreased GFR ? + --+ --+ ------+| ?30-59 ?| ?Stage three ?| ? Stage three ? + --+ --+ ------+| ?15-29 ?| ?Stage four ? | ? Stage four ?+ ---+ ---+ -------+| ?<15 (or dialysis) ? ?| ?Stage five ? | ? Stage five ?+ ---+ ---+ -------+ *Each stage assumes the associated GFR level has been in effect for at least three months. ?Stages 1 to 5, with or without kidney disease, indicate chronic kidney disease. Notes: Determination of stages one and two (with eGFR >59mL/min/1.73 m2) requires estimation of kidney damage for at least three months as defined by structural or functional abnormalities of the kidney, manifested by either:Pathological abnormalities or Markers of kidney damage (including abnormalities in the composition of the blood or urine or abnormalities in imaging tests). Lab Interpretation Abnormal (test code = 20679-7) [facility] WITH [id number] 04:09:10 Test Item Value Reference Range Interpretation Comments WBC (test code = See_Comment [Automated 6690-2) message] The sy stem which generated this result transmitted reference range : 4.30 - 11.10 10*3/?L. The reference range was not used to interpret this result as normal/abnormal . RBC (test code = See_Comment L [Automated 789-8) message] The sy stem which generated this result transmitted reference range : 3.93 - 5.25 10*6/?L. The reference range was not used to interpret this result as normal/abnormal . HGB (test code = 10.8 g/dL 11.6-15.0 L 718-7) HCT (test code = 32.0 % 35.7-45.2 L 4544-3) MCV (test code = 87.0 fL 80.6-95.5 787-2) MCH (test code = 29.3 pg 25.9-32.8 785-6) MCHC (test code = 33.8 g/dL 31.6-35.1 786-4) RDW-SD (test code = 45.5 fL 39.0-49.9 44965-0) RDW-CV (test code = 14.2 % 12.0-15.5 788-0) PLT (test code = See_Comment H [Automated 777-3) message] The sy stem which generated this result transmitted reference range : 166 - 358 10*3/ ?L. The reference r fransico was not used to interpret this result as normal/abnormal . MPV (test code = 9.2 fL 9.5-12.9 L 61540-7) NRBC/100 WBC (test See_Comment [Automat ed code = 9906555020) message] The system which generated this result transmitted reference range : 0.0 - 10.0 /100 WBCs. The refer ence range was not u sed to interpret th is result as normal/abnormal . NRBC x10^3 (test code <0.01 See_Comment [Auto mated = 1437776017) message] The s ystem which generated this result transmitted reference range : 10*3/?L. The reference range was not used to interpret this result as normal/abnormal . GRAN MAT (NEUT) % 82.0 % (test code = 770-8) IMM GRAN % (test code 0.40 % = 5016240689) LYMPH % (test code = 13.6 % 736-9) MONO % (test code = 3.8 % 5905-5) EOS % (test code = 0.0 % 713-8) BASO % (test code = 0.2 % 706-2) GRAN MAT x10^3(ANC) 8.87 10*3/uL 1.88-7.09 H (test code = 7510865205) IMM GRAN x10^3 (test 0.04 10*3/uL 0.00-0.06 code = 1664600684) LYMPH x10^3 (test code 1.47 10*3/uL 1.32-3.29 = 731-0) MONO x10^3 (test code 0.41 10*3/uL 0.33-0.92 = 742-7) EOS x10^3 (test code = <0.03 0.03-0.39 L 711-2) BASO x10^3 (test code <0.03 0.01-0.07 = 704-7) Lab Interpretation Abnormal (test code = 68891-1) [facility] 03:57:14 Test Item Value Reference Range Interpretation Comments POCT GLU (test code = 8110390179) 300 mg/dL 70-110 H Lab Interpretation (test code = Abnormal 00130-0) [facility] [id number] 04:41:06 Test Item Value Reference Range Interpretation Comments CHOLESTEROL (test 230 MG/DL <200 H code = 2210) TRIGLYCERIDES (test 455 MG/DL <150 H code = 2232) HDL CHOLESTEROL 35 MG/DL >39 L (test code = 2220) CALC LDL CHOL (test (NOTE) MG/DL <100 UNABLE T O CALCULATE A code = 2237) VALID LDL GABBY STEROL WHEN THE TRIGLYCERIDEVAL UE IS GREATER THAN 40 0 MG/DL. NOTE: CALCULATE D LDL IS BASED ON CHATO -[place] METHOD WHICHINC LUDES ADJUSTABLE TRIGLYCERIDE:VL DL CHOLESTEROL RAT IO.THIS FACTOR VARIES B Y MEASURED TRIGLY CERIDE AND NON-HDLCHOL ESTEROL CONCENTRATIONS WITH INCREASED CALCU LATED LDL SEENIN HIGH ER TRIGLYCERIDE OR LOWER NON-HDL SPECIME NS. FOR MOREINFORMATION , SEE CLIENT ANNOUNCE MENT AT [email or web address]-[email or web address] RISK RATIO LDL/HDL 3.83 RATIO <3.22 H (test code = 2238) UNABLE TO CALCULATE COMPREHENSIVE METABOLIC [id number] 04:41:06 Test Item Value Reference Range Interpretation Comments GLUCOSE (test code = 87 MG/DL 70-99 2216) BUN (test code = 19 MG/DL 6-20 2207) CREATININE (test 1.31 MG/DL 0.60-1.30 H EFFECTIVE code = 2214) 01/20/2021, [facility] HAS IMPLEMENTED THE NKF-ASN RECOMME NDED KD-EPI EGF R REFIT CALCULATI ON THAT DOES NOT I NCLUDE A COEFFICIENT FORRACE. FOR MO RE INFORMATION, SE E ANNOUNCEMENT [email or web address] eGFR (2020 CKD-EPI) 51 >60 L (test code = 44919) ML/MIN/1.73 CALC BUN/CREAT (test 15 RATIO 6-28 code = 2235) SODIUM (test code = 142 MEQ/L 096-043 8630) POTASSIUM (test code 3.8 MEQ/L 3.5-5.4 = 2227) CHLORIDE (test code 106 MEQ/L 95-107 = 221) CARBON DIOXIDE (test 24 MEQ/L 19-31 code = 2206) CALCIUM (test code = 9.1 MG/DL 8.5-10.5 2208) PROTEIN, TOTAL (test 7.2 G/DL 6.1-8.3 code = 2229) ALBUMIN (test code = 3.8 G/DL 3.5-5.2 2200) CALC GLOBULIN (test 3.4 G/DL 1.9-3.7 code = 2240) CALC A/G RATIO (test 1.1 RATIO 1.0-2.6 code = 2234) BILIRUBIN, TOTAL <0.2 MG/DL See_Comment [Automated message] (test code = 2207) The syste m which generated this result transmitted ref erence range: <=1.2. T he reference range was not used to int erpret this result as normal/abnormal . ALKALINE PHOSPHATASE 105 U/L 40-120 (test code = 2204) AST (test code = 19 U/L 9-40 2217) ALT (test code = 13 U/L 5-40 UNLE SS 2218) OTHERWISE INDIC ATED, ALL TESTING PER [facility], [place] [address] [place] [address] LABORATORY DIRE CTOR: JAYCEE LEVY M.D. CLIA NUMBER [id number] CAP ACCREDITATION N O. [id number] HEMOGLOBIN [id number] 02:36:52 Test Item Value Reference Range Interpretation Comments HEMOGLOBIN A1c (test 7.3 % 4.2-5.6 H [facility] [facility]ETES code = 54775) ASSOCIATION IDELINES FOR HGB A1C: PREDIABETES/INC REASED RISK . . . . . . . 5.7 -6.4% DIAGNOSIS OF D IABETES . . . . . . . . . > =6.5% WITH CONFIRM ATION OR APPROPRIATE SYM PTOMS NOTE: ASSAY MAY BE AFFECTED BY HEMOGLOBINOP ATHIES (SICKLE SAMANTHA L ANEMIA, S-C DISEASE, OTHERS ) OR ARTIFICIALLY LO WERED BY DECREASED RED C ELL SURVIVAL (HEMOLYTIC ANEM IAS, BLOOD LOSS, ETC.) . CONSIDER ALTERNATE TESTI NG OR LABORATORY CONS ULTATION."
[2021-04-11 14:53] LABS: Absolute Lymphocytes (CBC) 1.6 K/uL (0.7-4.9); Hematocrit 28.4 % (36.0-45.0); Lymphocytes % 20.9 % (15.3-44.8); MPV 7.7 fL (7.6-11.3); RBC Red Blood Cell Count 3.28 M/uL (3.86-4.86)
[2021-04-11 15:14] LABS: ALT/SGPT 20 U/L (12-78); AST/SGOT 12 U/L (15-37); Albumin 2.8 g/dL (3.4-5.0); Alkaline Phosphatase 101 U/L (45-117); BUN Blood Urea Nitrogen 17 mg/dL (7-18); Bicarbonate 26 mmol/L (21-32); Bilirubin Total 0.2 mg/dL (0.2-1.0); Glucose Level 310 mg/dL (74-106); Lipase 94 U/L (73-393); Potassium 3.6 mmol/L (3.5-5.1); Protein, Total 7.7 g/dL (6.4-8.2); Sodium Level 136 mmol/L (136-145)
[2021-04-11 15:15] LABS: Bilirubin Direct < 0.1 mg/dL (0-0.2)
[2021-04-11] MEDS ORDERED: MORPHINE 4 MG/ML SYR ONE (15:28)
[2021-04-11] MEDS ORDERED: ONDANSETRON 4 MG/2 ML VIAL ONE (15:28)
--- NOTE | 2021-04-11 16:23 | RAD REPORT ---
EXAM DESCRIPTION: CT - Abdomen Pelvis W Contrast - 04/11/2021 3:30 pm CLINICAL HISTORY: Abdominal pain COMPARISON: 2018 TECHNIQUE: Computed axial tomography of the abdomen pelvis was obtained. 100 cc Isovue-300 was admin istered intravenously. Oral contrast was not requested which limits evaluation of bowel. All CT scans are performed using dose optimization technique as appropriate and may include automated exposure control or mA/KV adjustment according to patient size. FINDINGS: The liver, spleen, pancreas, adrenal and kidneys appear unremarkable. There is no evidence of diverticulitis. Normal appendix. Several prominent follicles within the left ovary. The cervix is bulky but without significant change from the 2018 exam. Cholelithiasis without gallbladder wall thickening. Mild thickening of the wall of the right colon IMPRESSION: Mild thickening of the wall of the right colon probably a mild colitis
[2021-04-11] MEDS ORDERED: levoFLOXacin 750 MG TAB ONE (16:52)
[2021-04-11] MEDS ORDERED: METRONIDAZOLE 500mg IVPB 500 MG/100 ML BAG IV ONE (16:52)
--- NOTE | 2021-04-11 17:59 | EDPHYS ---
Physician Documentation [facility] Name: Elsy Bradford Age: 46 yrs Sex: Female : 1975 Arrival Date: 04/11/2021 Time: 13:43 Bed 17 Private MD: Thompson Castellon HPI: 04/11 14:11 This 46 yrs old Female presents to ER via Ambulatory with complaints of [facility] Abdominal Pain. 14:11 The patient presents with abdominal pain. Onset: The symptoms/episode began/occurred jm gradually, 1 week(s) ago. The symptoms do not radiate. Associated signs and symptoms: Pertinent positives: nausea and vomiting. The symptoms are described as achy. Modifying factors: The symptoms are alleviated by nothing, the symptoms are aggravated by nothing. The patient has not experienced similar symptoms in the past. Patient diagnosed with colitis and prescribed augmentin without relief. Unable to tolerate fluid PO. . 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 - Social history:: Smoking status: Reported history of juuling and/or vaping. ROS: 14:11 Constitutional: Negative for fever, chills, and weight loss, Cardiovascular: Negative jm for chest pain, palpitations, and edema, Respiratory: Negative for shortness of breath, cough, wheezing, and pleuritic chest pain. 14:11 Abdomen/GI: Positive for abdominal pain, nausea and vomiting. 14:11 All other systems are negative. Exam: 14:11 Constitutional: This is a well developed, well nourished patient who is awake, alert, jmm and in no acute distress. Head/Face: atraumatic. Eyes: EOMI, no conjunctival erythema appreciated ENT: Moist Mucus Membranes Neck: Trachea midline, Supple Chest/axilla: Normal chest wall appearance and motion. Cardiovascular: Regular rate and rhythm. No edema appreciated Respiratory: Normal respirations, no respiratory distress appreciated 14:11 Back: Normal ROM Skin: General appearance color normal MS/ Extremity: Moves all extremities, no obvious deformities appreciated, no edema noted to the lower extremities Neuro: Awake and alert Psych: Behavior is normal, Mood is normal, Patient is cooperative and pleasant 14:11 Abdomen/GI: Inspection: abdomen appears normal, Bowel sounds: normal, Palpation: nontender, mild abdominal tenderness, in the right upper quadrant and right lower quadrant. Vital Signs: 14:16 BP 156 / 88; Pulse 88; Resp 16; Temp 98.4; Pulse Ox 100% ; Weight 58.97 kg; Height 4 ww ft. 11 in. (149.86 cm); Pain 10/10; 16:47 BP 119 / 69; Pulse 83; Resp 16; Pulse Ox 99% ; ab2 17:48 BP 142 / 79; Pulse 87; Resp 18; Pulse Ox 98% on R/A; ab2 14:16 Body Mass Index 26.26 (58.97 kg, 149.86 cm) ww MDM: 14:11 Patient medically screened. rosalina 17:55 Data reviewed: vital signs, nurses notes. Counseling: I had a detailed discussion with jackelyn the patient and/or guardian regarding: the historical points, exam findings, and any diagnostic results supporting the discharge/admit diagnosis, lab results, radiology results, the need for outpatient follow up, to return to the emergency department if symptoms worsen or persist or if there are any questions or concerns that arise at home. Response to treatment: the patient's symptoms have markedly improved after treatment, and as a result, I will discharge patient. ED course: Advised to discontinue augmentin. Will prescribed levaquin/flagyl. Advised to return to the ED if symptoms worsen. patient understood and agrees with the plan of care. . 04/11 14:32 Order name: Basic Metabolic Panel; Complete Time: 15:16 [facility] 04/11 14:32 Order name: CBC with Diff; Complete Time: 15:16 [facility] 04/11 14:32 Order name: Hepatic Function; Complete Time: 15:16 [facility] 04/11 14:32 Order name: Lipase; Complete Time: 15:16 [facility] 04/11 15:16 Order name: CT Abd/Pelvis - IV Contrast Only; Complete Time: 16:29 [facility] 04/11 14:32 Order name: IV Saline Lock; Complete Time: 14:36 [facility] 04/11 14:32 Order name: Labs collected and sent; Complete Time: 14:36 [facility] Administered Medications: 15:42 Drug: morphine 4 mg Route: IVP; Site: right antecubital; ab2 15:42 Drug: Zofran (Ondansetron) 4 mg Route: IVP; Site: right antecubital; ab2 16:52 Drug: Flagyl (metroNIDAZOLE) 500 mg Volume: 100 ml; Route: IVPB; Rate: 200 ml/hr; ab2 Infused Over: 30 mins; Site: right antecubital; 16:52 Drug: LevOfloxacin 750 mg Route: PO; ab2 Disposition Summary: 04/11/21 17:58 Discharge Ordered Location: Home [facility] Condition: Stable [facility] Diagnosis - Colitis [facility] Followup: [facility] - With: Matthew Red MD - When: 2 - 3 days - Reason: Recheck today's complaints, Continuance of care, Re-evaluation by your physician Discharge Instructions: - Discharge Summary Sheet [facility] - Colitis [facility] Forms: - Medication Reconciliation Form [facility] - Thank You Letter [facility] - Antibiotic Education [facility] - Prescription Opioid Use [facility] - Work release form iw Prescriptions: - Flagyl 500 mg Oral Tablet - take 1 tablet by ORAL route every 6 hours for 10 days; 40 tablet; Refills: 0, [facility] Product Selection Permitted - dicyclomine 20 mg Oral Tablet - take 1 tablet by ORAL route 4 times per day; 40 tablet; Refills: 0, Product [facility] Selection Permitted - levofloxacin 750 mg Oral Tablet - take 1 tablet by ORAL route once daily for 10 days; 10 tablet; Refills: 0, [facility] Product Selection Permitted - promethazine 12.5 mg Rectal suppository - insert 1 suppository by RECTAL route every 4-6 hours; 12 suppository; Refills: [facility] 0, Product Selection Permitted Signatures: Dispatcher [employer] Thompson Ordonez MD MD cha Mickail, Joel, PA PA jmm Wood, Whitney, RN RN Juan Medellin ab2 Corrections: (The following items were deleted from the chart) 14:18 14:17 PMHx: Thyroid problem; katelyn zepeda
--- NOTE | 2021-04-11 17:59 | ER ---
Nurse's Notes [facility] Name: Elsy Bradford Age: 46 yrs Sex: Female : 1975 Arrival Date: 04/11/2021 Time: 13:43 Bed 17 Private MD: Diagnosis: Colitis Presentation: 04/11 14:16 Chief complaint: Patient states: Upper epigastric abdominal pain that radiates to her ww neck with a burning sensation that is making her vomit. She was seen at [facility] on 04/07/2021 and given Amoxicillin and Bactrim. Coronavirus screen: Vaccine status: Patient reports receiving the 2nd dose of the covid vaccine. Client denies travel out of the [place] in the last 14 days. Ebola Screen: Patient denies travel to an Ebola-affected area in the 21 days before illness onset. Initial Sepsis Screen: Does the patient meet any 2 criteria? No. Patient's initial sepsis screen is negative. Does the patient have a suspected source of infection? No. Patient's initial sepsis screen is negative. Risk Assessment: Do you want to hurt yourself or someone else? Patient reports no desire to harm self or others. Onset of symptoms is unknown. 14:16 Method Of Arrival: Ambulatory ww 14:16 Acuity: ALIN 3 ww Triage Assessment: 14:17 General: Appears uncomfortable, Behavior is crying. Pain: Complains of pain in ww epigastric area, right upper quadrant and left upper quadrant. Neuro: Level of Consciousness is awake, alert, obeys commands, Oriented to person, place, time, situation, Moves all extremities. Speech is normal. Cardiovascular: Capillary refill < 3 seconds Patient's skin is warm and dry. Respiratory: Airway is patent Respiratory effort is even, unlabored, Respiratory pattern is regular, symmetrical. GI: Abdomen is non-distended, Reports upper abdominal pain, nausea. Derm: Skin is intact, Skin is pink, warm \\T\\ dry. SIGN BUILDER: 14:17 LMP 04/10/2021 ww Historical: - Allergies: 14:17 No Known Allergies; ww - Home Meds: 14:17 Nexium Oral [Active]; glipizide 5 mg Oral tab 1 tab once daily [Active]; ww - PMHx: 14:17 "thyroid"; Diabetes - NIDDM; GERD; High Cholesterol; hypertension; ww - PSHx: 14:17 None; ww - Immunization history:: Adult Immunizations up to date. - Social history:: Smoking status: Reported history of juuling and/or vaping. Screenin:19 Abuse screen: Denies threats or abuse. Denies injuries from another. Nutritional ww screening: No deficits noted. Tuberculosis screening: No symptoms or risk factors identified. Fall Risk None identified. Assessment: 16:47 General: Appears in no apparent distress. uncomfortable, Behavior is calm, cooperative, ab2 appropriate for age. Pain: Complains of pain in abdomen. Neuro: Level of Consciousness is awake, alert, obeys commands, Oriented to person, place, time, situation, Appropriate for age. Cardiovascular: No deficits noted. Reports. Respiratory: Airway is patent Respiratory effort is even, unlabored, Respiratory pattern is regular, symmetrical, Breath sounds are clear bilaterally. GI: Bowel sounds present X 4 quads. Abdomen is tender to palpation X 4 quads. Reports intolerance of fluids, intolerance of food, nausea, vomiting. : No deficits noted. No signs and/or symptoms were reported regarding the genitourinary system. EENT: No deficits noted. No signs and/or symptoms were reported regarding the EENT system. Derm: No deficits noted. No signs and/or symptoms reported regarding the dermatologic system. Skin is intact, is healthy with good turgor, Skin is pink, warm \\T\\ dry. Vital Signs: 14:16 BP 156 / 88; Pulse 88; Resp 16; Temp 98.4; Pulse Ox 100% ; Weight 58.97 kg; Height 4 ww ft. 11 in. (149.86 cm); Pain 10/10; 16:47 BP 119 / 69; Pulse 83; Resp 16; Pulse Ox 99% ; ab2 17:48 BP 142 / 79; Pulse 87; Resp 18; Pulse Ox 98% on R/A; ab2 14:16 Body Mass Index 26.26 (58.97 kg, 149.86 cm) ww ED Course: 13:43 Patient arrived in ED. am2 14:03 Js Godinez PA is PHCP. [facility] 14:03 Thompson Castro MD is Attending Physician. [facility] 14:17 Triage completed. ww 14:17 Arm band placed on left wrist. ww 14:19 Juan Arambula is Primary Nurse. ab2 14:19 Patient has correct armband on for positive identification. Bed in low position. Call ww light in reach. Side rails up X 1. Adult w/ patient. Pulse ox on. NIBP on. 14:19 Initial lab(s) drawn, sent to lab. Inserted saline lock: 20 gauge in left antecubital ww area, using aseptic technique. Blood collected. 15:31 CT Abd/Pelvis - IV Contrast Only In Process Unspecified. EDMS 16:48 No provider procedures requiring assistance completed. ab2 17:58 Matthew Red MD is Referral Physician. jmm 18:17 IV discontinued, intact, bleeding controlled, No redness/swelling at site. Pressure ab2 dressing applied. Administered Medications: 15:42 Drug: morphine 4 mg Route: IVP; Site: right antecubital; ab2 15:42 Drug: Zofran (Ondansetron) 4 mg Route: IVP; Site: right antecubital; ab2 16:52 Drug: Flagyl (metroNIDAZOLE) 500 mg Volume: 100 ml; Route: IVPB; Rate: 200 ml/hr; ab2 Infused Over: 30 mins; Site: right antecubital; 16:52 Drug: LevOfloxacin 750 mg Route: PO; ab2 Outcome: 17:58 Discharge ordered by MD. [facility] 18:17 Discharged to home ambulatory, with family. ab2 18:17 Condition: good 18:17 Discharge instructions given to patient, family, Instructed on discharge instructions, follow up and referral plans. medication usage, Demonstrated understanding of instructions, follow-up care, medications, Prescriptions given X 2. 18:17 Patient left the ED. ab2 Signatures: Dispatcher [employer] EDMS Js Godinez PA PA jmm Moreno, Amanda am2 Blaire Wilkins, RN RN Juan Medellin ab2 Corrections: (The following items were deleted from the chart) 14:18 14:17 PMHx: Thyroid problem; ww ww
[2021-04-11 18:23] VITALS: TEMP 98.4
[2021-04-11 18:26] VITALS: BP 142/79; O2SAT 98
== END 2021-04-11 18:17 | disposition home or self-care (01) ==
LOC: ER 13:43
DX: K52.9 Noninfective gastroenteritis and colitis, unspecified (principal); I10 Essential (primary) hypertension; E11.9 Type 2 diabetes mellitus without complications
CPT/HCPCS: 36415; 74177; 80048; 80076; 83690; 85025; 96374; 96375; 99284; J2405; Q9967

== ENCOUNTER 2021-07-17 14:06 | Emergency (ER) | payer SELFPAY ==
--- OUTSIDE RECORDS SUMMARY | 2021-07-17 14:09 | XMS REPORT | Continuity of Care Document ---
:1975 Author Organization [facility] t Address [address] [place] [address] Care Team Providers Name Role Phone PCP, DOES NOT HAVE A Primary Care Physician Unavailable UNKNOWN Attending Clinician Unavailable EDEN Attending Clinician Unavailable Eden DO Attending Clinician Mary Jo ALVAREZ Attending Clinician Unavailable Chaparro LEVY Attending Clinician Unavailable BETTY MOISE Attending Clinician Unavailable EDEN Admitting Clinician Unavailable BETTY MOISE Admitting Clinician Unavailable Payers Payer Name Policy Type Policy Number Effective Date Expiration Date S ede [employer] [id number] 2019 ANGEL 0-100% 00:00:00 Problems Condition Condition Condition Status Onset Resolution Last Treating Co mments Source Name Details Category Date Date Treatment Clinician Date Screening Screening Disease Active Uni vers examinatio examinatio 7-13 it y of n [place] STD [place] 00 Medi regine transmitte transmitte Br anch d disease) d disease) Elevated Elevated Disease Active Unive rs blood blood -13 ity of pressure pressure 00:00: [place] reading reading 00 Medical without without Branch diagnosis diagnosis of of hypertensi hypertensi on on BMI BMI Disease Active Univers 27.0-27.9, 27.0-27.9, 7-13 it y of adult adult 00:00: [place] 00 Medical Branch Pain Pain Disease Active Univers pelvic pelvic 08-20 ity of 00:00: [place] 00 Medical Branch Allergies, Adverse Reactions, Alerts Allergy Allergy Status Severity Reaction(s) Onset Inactive Treating Comm ents Source Name Type Date Date Clinician NO KNOWN Drug Active [facility] ALLERGIE Class ity of S [place] Medical Sarah Ann Social History Social Habit Start Date Stop Date Quantity Comments Source Exposure to Not sure [facility] SARS-CoV-2 (event) Medica l Branch Alcohol intake 2021-04-07 2021-04-07 .14 /d [facility] 00:00:00 00:00:00 Medical Branch Tobacco use and 2019-08-21 2019-08-21 Never used [facility] exposure 00:00:00 00:00:00 Medical Branch History [facility] 2019-08-21 2019-08-21 2 [facility] Alcohol Frequency 00:00:00 00:00:00 Medical Branch History [facility] 2019-08-21 2019-08-21 1 [facility] Alcohol Std Drinks 00:00:00 00:00:00 Medica l Branch History [facility] 2019-08-21 2019-08-21 1 [facility] Alcohol Binge 00:00:00 00:00:00 Medical Bra [facility] Alcohol Comment 2019-08-21 2019-08-21 social [facility] 00:00:00 00:00:00 [facility] Branch Sex Ass[birth year] At [birth year] [facility] 00:00:00 00:00:00 Medical Branch Smoking Status Start Date Stop Date Source Never smoker [facility] Medications Ordered Filled Start Stop Current Ordering Indication Dosage Frequency Signature Comments Components Source Medication Medication Date Date Medication? Clinician (SIG) Name Name pantoprazol Yes 40mg 40 mg, Univ ers e 04-08 Slow IV ity of (PROTONIX) 14:00: Push, [place] injection 00 Q12H, Medical 40 mg First dose Branch on Wed04/08/21 at 0800, Until Discontinu ed diphenhydrA 2021- No 50mg 50 mg, Uni vers MINE 04-08 Intravenou ity of (BENADRYL) 07:00: 06:02 s, ONCE, 1 [place] injection 00 :00 dose, On Medica l 50 mg [facility] 04/08/21 Branch at 0100, FRANK metoclopram No 10mg 10 mg, Uni vers torrey HCl 04-08 Slow IV ity of (REGLAN) 07:00: 06:03 Push, [place] injection 00 :00 ONCE, 1 Medical 10 mg dose, On Branch 04/08/21 at 0100, FRANK iopamidol 2021- No [id number] 120mL 120 mL, Univers (ISOVUE 04-08 Intravenou ity o f 370-500 mL) 05:45: 04:33 s, ONCE, 1 [place] injection 00 :00 dose, On Medica l [address] [facility] 04/07/21 at 2345, Routine ondansetron 2021- No 4mg 4 mg, Slow Univers (ZOFRAN 04-08 IV Push, ity of (PF)) 05:00: 04:06 ONCE, 1 [place] injection 4 00 :00 dose, On Medi regine mg [facility] 04/07/21 at 2300, Routine NaCl 0.9% 2021- [...] 4 mg, Slow Uni vers injection 4 04-08 IV Push, ity of mg 03:52: [facility] [place] 32 Starting Medical on Wed Sarah Ann 04/07/21 at 2152, Until Discontinu ed, Routine, Pain (scale 7-10) ondansetron Yes [id number] 4mg Take 1 Univers 4 mg 3-01 tablet by ity of disintegrat 00:00: mouth [place] ing tablet 00 every 8 Medica l (eight) Branch hours as needed for Nausea and Vomiting (N/V). amoxicillin 2021- No [id number] 1{tbl} Take 1 Univers -clavulanat 3- 03-09 tablet by it y of e 875-125 00:00: 05:59 mouth [place] mg per 00 :00 every 12 Medical tablet (twelve) Branch hours for 7 days. sulfamethox Yes [id number] 1{tbl} Take 1 Univers azole-trime 3-31 9109 tablet by ity of thoprim 00:00: mouth [place] 800-160 mg 00 every 12 Medic al per tablet (twelve) Branc h hours. glipiZIDE 5 Yes [id number] 5mg Take 1 Univers mg tablet 05-08 9109 tablet by ity o f 00:00: mouth [place] 00 daily. Medical Sarah Ann Vital Signs Vital Name Observation Time Observation Value Comments Source Systolic blood 2021-04-08 06:24:00 154 mm[Hg] [facility] Diastolic blood 2021-04-08 06:24:00 87 mm[Hg] [facility] [place] Heart rate 2021-04-08 06:24:00 83 /min [facility] Respiratory rate 2021-04-08 06:24:00 12 /min [facility] Oxygen saturation in 2021-04-08 06:24:00 95 /min [facility] Arterial blood by [facility] Pulse oximetry Branch Body temperature 2021-04-08 03:44:00 36.83 Samantha [facility] Body height 2021-04-08 03:44:00 149.9 cm [facility] Body weight 2021-04-08 03:44:00 61.236 kg [facility] BMI 2021-04-08 03:44:00 27.27 kg/m2 [facility] Procedures Procedure Date / Time Performed Performing Clinician Sourc e LACTIC ACID WHOLE 2021-04-08 06:40:00 Eden, [facility] CT ABDOMEN PELVIS W 2021-04-08 04:35:28 [facility] CONTRAST [facility] POCT TEST 2021-04-08 04:24:00 Steven Eden [facility] URINALYSIS 2021-04-08 04:22:00 Singer [facility] LACTIC ACID WHOLE 2021-04-08 04:06:00 Singer [facility] COMP. METABOLIC PANEL 2021-04-08 03:59:00 [facility] ([id number] CBC WITH DIFF 2021-04-08 03:59:00 Singer [facility] POCT GLUCOSE 2021-04-08 03:55:00 Singer [facility] (AUTOMATED) [facility] NOTICE OF PRIVACY 2021-04-08 03:32:24 Doctor Unassigned, No Univ [facility] PRACTICES Name Medical Branch CONSENT/REFUSAL FOR 2021-04-08 03:29:53 Doctor Unassigned, No [facility] DIAGNOSIS AND Name Medical Sarah Ann TREATMENT Encounters Start End Encounter Admission Attending Care Care Encounter Source Date/Time Date/Time Type Type Clinicians Facility Department ID 2020-12-08 Emergency [facility] [id number] Univers 09:56:25 [facility] 2021-04-11 2021-04-11 Outpatient R [facility] [id number] Univers 14:20:00 14:20:00 [id number] [facility] 2021-04-11 2021-04-11 Outpatient R UNKNOWN, [facility] [id number] Univers 14:20:00 14:20:00 ATTENDING [facility] 2021-04-07 2021-04-[address] [facility] ERT [id number] Univers 21:43:00 01:09:00 STEVEN [facility] 2021-04-07 2021-04-[address] [facility] [id number] Univers 21:43:00 01:09:00 Steven DAVISON [id number] i [facility] [id number] [facility] [id number] [facility] 084 Branch 2019-08-25 2019-08-25 Outpatient R ANTONIO, [facility] [id number] Univers 15:00:00 15:00:00 BILLIE [id number] ity o f [facility] 2019-08-21 2019-08-21 Outpatient R CAM [facility] [id number] Univers 08:00:00 08:00:00 PATRIA ity o f [facility] 2019-07-24 2019-07-25 Emergency X Santos MOISE [facility] ERT [id number] Univers 21:47:47 02:18:00 [facility] Results Test Description Test Time Test Comments Results Result Comments Source HEMOGLOBIN A1c 2021-06-14 06:11:51 Test Item Value Reference Range Interpretation Comme nts HEMOGLOBIN A1c (test code = 10.8 % 4.2-5.6 H [employer] 32135) GUIDELINES FOR HGB A1C: PREDIABETES/INC REASED RISK . . . . . . . 5.7-6.4% DIAGNOSIS OF DIABETES . . . . . . . . . >=6.5% WITH CONF IRMATION OR APPROPRIATE SYMPTOMS N OTE: ASSAY MAY BE AFFECTED BY HEM OGLOBINOPATHIES (SICKLE CELL ANEMIA, S-C DISEASE, OTHERS) OR ARTIFICIALLY LO WERED BY DECREASED RED CELL SURVIV AL (HEMOLYTIC ANEMIAS, BLOOD LOSS, ETC.). CONSIDER ALTERNATE TESTI NG OR LABORATORY CONSULTATION. LIPID [id number] 05:14:42 Test Item Value Reference Range Interpretation Comments CHOLESTEROL (test 235 MG/DL <200 H code = 2210) TRIGLYCERIDES (test 215 MG/DL <150 H code = 2232) HDL CHOLESTEROL (test 51 MG/DL >39 code = 2220) CALC LDL CHOL (test 148 MG/DL <100 H NOTE: C ALCULATED LDL code = 2237) IS BASED ON CHATO-[place] METHOD WHICHINCLUDES ADJUSTABLE TRIGLYCERIDE:VL DL CHOLESTEROL RAT IO.THIS FACTOR VARIES B Y MEASURED TRIGLY CERIDE AND NON-HDLCHOL ESTEROL CONCENTRATIONS WITH INCREASED CALCU LATED LDL SEENIN HIGH ER TRIGLYCERIDE OR LOWER NON-HDL SPECIME NS. FOR MOREINFORMATION , SEE CLIENT ANNOUNCE MENT AT [email or web address] RISK RATIO LDL/HDL 2.90 RATIO <3.22 (test code = 2238) COMPREHENSIVE METABOLIC [id number] 05:14:42 Test Item Value Reference Range Interpretation Comments GLUCOSE (test code = 58 MG/DL 70-99 L 2216) BUN (test code = 19 MG/DL 6-20 2207) CREATININE (test 1.40 MG/DL 0.60-1.30 H code = 2214) eGFR (2020 CKD-EPI) 47 >60 L (test code = 64901) ML/MIN/1.73 CALC BUN/CREAT (test 14 RATIO 6-28 code = 2235) SODIUM (test code = 143 MEQ/L 186-785 0737) POTASSIUM (test code 4.7 MEQ/L 3.5-5.4 = 2227) CHLORIDE (test code 107 MEQ/L 95-107 = 2214) CARBON DIOXIDE (test 23 MEQ/L 19-31 code = 2206) CALCIUM (test code = 9.0 MG/DL 8.5-10.5 2208) PROTEIN, TOTAL (test 7.0 G/DL 6.1-8.3 code = 222) ALBUMIN (test code = 3.5 G/DL 3.5-5.2 2200) CALC GLOBULIN (test 3.5 G/DL 1.9-3.7 code = 2240) CALC A/G RATIO (test 1.0 RATIO 1.0-2.6 code = 2234) BILIRUBIN, TOTAL <0.2 MG/DL See_Comment [Automated message] (test code = 2207) The syste m which generated this result transmitted ref erence range: <=1.2. T he reference range was not used to int erpret this result as normal/abnormal . ALKALINE PHOSPHATASE 109 U/L 40-120 (test code = 2204) AST (test code = 14 U/L 9-40 2217) ALT (test code = 11 U/L 5-40 UNLE SS 2218) OTHERWISE INDIC ATED, ALL TESTING PER FORMED ATCLINICAL PATH OLOGY LABORATORIES, [place]. [address] [address] LABORATORY DIRE CTOR: JAYCEE LEVY M.D. CLIA NUMBER [id number] CAP ACCREDITATION N O. [id number] HEMOGLOBIN [id number] 11:23:29 Test Item Value Reference Range Interpretation Comments HEMOGLOBIN A1c (test 13.0 % 4.2-5.6 H [employer] code = 34466) ASSOCIATION IDELINES FOR HGB A1C: PREDIABETES/INC REASED RISK . . . . . . . 5 .7-6.4% DIAGNOSIS O F DIABETES . . . . . . . . . >=6.5% WITH CO NFIRMATION OR APPROPRIATE SYMPTOMS NOTE: ASSAY MA Y BE AFFECTED BY HEMOGLOBINOPATH IES (SICKLE CELL ANEMIA, S-C DISEASE, OTHERS ) OR ARTIFICIALLY LO WERED BY DECREASED RED C ELL SURVIVAL (HEMOLYTIC ANEM IAS, BLOOD LOSS, ETC.) . CONSIDER ALTERNATE TESTI NG OR LABORATORY CONS ULTATION. CBC W/AUTO DIFF WITH [id number] 10:40:41 Test Item Value Reference Range Interpretation Comments WBC (test code = 7.8 K/UL 3.5-11.0 1001) RBC (test code = 3.10 M/UL 3.80-5.40 L 1002) HEMOGLOBIN (test code 9.0 G/DL 11.5-15.5 L = 1003) HEMATOCRIT (test code 27.1 % 34.0-45.0 L = 1004) MCV (test code = 87.4 fL 80.0-99.0 1005) MCH (test code = 29.0 PG 25.0-33.0 1006) MCHC (test code = 33.2 G/DL 31.0-36.0 1007) RDW (test code = 13.5 % 11.5-15.0 1038) NEUTROPHILS (test 57.8 % code = 1008) LYMPHOCYTES (test 32.4 % code = 1010) MONOCYTES (test code 8.1 % = 1011) EOSINOPHILS (test 1.0 % code = 1012) BASOPHILS (test code 0.4 % = 1013) IMMATURE GRANULOCYTES 0.3 % (test code = 1036) NUCLEATED RBCS (test 0.0 /100 See_Comment [Autom ated code = 1065) WBC'S message] The sy stem which generated this result transmitted reference range : 0.0. The refere nce range was not u sed to interpret th is result as normal/abnormal . PLATELET COUNT (test 509 K/UL 130-400 H code = 1015) ABSOLUTE NEUTROPHILS 4.52 K/UL 1.50-7.50 (test code = 1066) ABSOLUTE LYMPHOCYTES 2.53 K/UL 1.00-4.00 (test code = 1067) ABSOLUTE MONOCYTES 0.63 K/UL 0.20-1.00 (test code = 1068) ABSOLUTE EOSINOPHILS 0.08 K/UL 0.00-0.50 (test code = 1040) ABSOLUTE BASOPHILS 0.03 K/UL 0.00-0.20 (test code = 1069) ABS IMMATURE 0.02 K/UL 0.00-0.10 GRANULOCYTES (test code = 1020) ABS NUCLEATED RBCS 0.00 K/UL 0.00-0.11 (test code = 46200) TSH, THIRD [id number] 06:03:58 Test Item Value Reference Range Interpretation Comments TSH, THIRD 5.840 UIU/ML 0.400-4.100 H UNLESS GENERATION (test OTHERWISE I NDICATED, code = 2821) ALL TESTING PER FORMED ATCLINICAL PATH OLOGY LABORATORIES, [facility]. [address] [place] [address] LABORATORY DIRE CTOR: JAYCEE LEVY M.D. CLIA NUMBER [id number] CAP ACCREDITATION N O. [id number] LIPID [id number] 05:12:52 Test Item Value Reference Range Interpretation Comments CHOLESTEROL (test 278 MG/DL <200 H code = 2210) TRIGLYCERIDES (test 553 MG/DL <150 H code = 2232) HDL CHOLESTEROL 38 MG/DL >39 L (test code = 2220) [...] , SEE CLIENT ANNOUNCE MENT AT [email or web address] CalcLDL-C RISK RATIO LDL/HDL 4.13 RATIO <3.22 H (test code = 2238) UNABLE TO CALCULATE COMPREHENSIVE METABOLIC [id number] 05:12:52 Test Item Value Reference Range Interpretation Comments GLUCOSE (test code = 304 MG/DL 70-99 H 2216) BUN (test code = 26 MG/DL 6-20 H 2207) CREATININE (test 1.81 MG/DL 0.60-1.30 H code = 221) eGFR (2020 CKD-EPI) 34 ML/MIN/1.73 >60 L (test code = 59666) CALC BUN/CREAT (test 14 RATIO 6-28 code = 2235) SODIUM (test code = 137 MEQ/L 197-347 7823) POTASSIUM (test code 4.7 MEQ/L 3.5-5.4 = 2227) CHLORIDE (test code 99 MEQ/L 95-107 = 2214) CARBON DIOXIDE (test 26 MEQ/L 19-31 code = 220) CALCIUM (test code = 8.7 MG/DL 8.5-10.5 2208) PROTEIN, TOTAL (test 6.9 G/DL 6.1-8.3 code = 222) ALBUMIN (test code = 3.4 G/DL 3.5-5.2 L 2200) CALC GLOBULIN (test 3.5 G/DL 1.9-3.7 code = 2240) CALC A/G RATIO (test 1.0 RATIO 1.0-2.6 code = 223) BILIRUBIN, TOTAL <0.2 MG/DL See_Comment [Automated message] (test code = 2207) The syste m which generated this result transmit garth reference range : <=1.2. The refe rence range was not u sed to interpret th is result as normal/abnormal . ALKALINE PHOSPHATASE 124 U/L 40-120 H (test code = 220) AST (test code = 15 U/L 9-40 2217) ALT (test code = 13 U/L 5-40 2218) POCT [id number] 04:24:00 Test Item Value Reference Range Interpretation Comments POCT PREG (test code = 1605) negative On board controls acceptable with present C Line (test code = 3574) POCT PREG LOT # (test code = 3575) [id number] POCT PREG TEST DATE (test code = 3576) Lab Interpretation (test code = Normal 17581-3) [facility] METABOLIC PANEL ([id number])2021-04-08 04:22:29 Test Item Value Reference Range Interpretation Comments NA (test code = 138 mmol/L 135-145 1763177700) K (test code = 4.6 mmol/L 3.5-5.0 5760809359) CL (test code = 102 mmol/L 98-108 7181050035) CO2 TOTAL (test code = 20 mmol/L 23-31 L 3221187188) AGAP (test code = 2-16 5584083777) BUN (test code = 21 mg/dL 7-23 0034961938) GLUCOSE (test code = 318 mg/dL 70-110 H 4041250578) CREATININE (test code = 1.36 mg/dL 0.50-1.04 H 7230541758) TOTAL BILI (test code = 0.6 mg/dL 0.1-1.5 4535121963) CALCIUM (test code = 9.4 mg/dL 8.6-10.6 7488205460) T PROTEIN (test code = 8.1 g/dL 6.3-8.2 1649853308) ALBUMIN (test code = 4.3 g/dL 3.5-5.0 5124838238) ALK PHOS (test code = 139 U/L 34-122 H 0499065178) ALTv (test code = 18 U/L 5-35 1742-6) AST(SGOT) (test code = 23 U/L 13-40 9997952975) eGFR (test code = mL/min/1.73m2 6127748991) CLEMENTINE (test code = CLEMENTINE) Association of [...] tests). Lab Interpretation Abnormal (test code = 62275-8) [facility] WITH [id number] 04:09:10 Test Item Value Reference Range Interpretation [...] RDW-SD (test code = 45.5 fL 39.0-49.9 90080-1) RDW-CV (test code = 14.2 % 12.0-15.5 788-0) PLT (test code = See_Comment H [Automated 777-3) message] The sy stem which generated this result transmitted reference range : 166 - 358 10*3/ ?L. The reference r fransico was not used to interpret this result as normal/abnormal . MPV (test code = 9.2 fL 9.5-12.9 L 28633-4) NRBC/100 WBC (test See_Comment [Automat ed code = 7937294120) message] The system which generated this result transmitted reference range : 0.0 - 10.0 /100 WBCs. The refer ence range was not u sed to interpret th is result as normal/abnormal . NRBC x10^3 (test code <0.01 See_Comment [Auto mated = 5359211211) message] The s ystem which generated this result transmitted reference range : 10*3/?L. The reference range was not used to interpret this result as normal/abnormal . GRAN MAT (NEUT) % 82.0 % (test code = 770-8) IMM GRAN % (test code 0.40 % = 8650420762) LYMPH % (test code = 13.6 % 736-9) MONO % (test code = 3.8 % 5905-5) EOS % (test code = 0.0 % 713-8) BASO % (test code = 0.2 % 706-2) GRAN MAT x10^3(ANC) 8.87 10*3/uL 1.88-7.09 H (test code = 8620448174) IMM GRAN x10^3 (test 0.04 10*3/uL 0.00-0.06 code = 0820516089) LYMPH x10^3 (test code 1.47 10*3/uL 1.32-3.29 = 731-0) MONO x10^3 (test code 0.41 10*3/uL 0.33-0.92 = 742-7) EOS x10^3 (test code = <0.03 0.03-0.39 L 711-2) BASO x10^3 (test code <0.03 0.01-0.07 = 704-7) Lab Interpretation Abnormal (test code = 40820-4) [facility] GLUCOSE (AUTOMATED)2021-04-08 03:57:14 Test Item Value Reference Range Interpretation Comments POCT GLU (test code = 1453272068) 300 mg/dL 70-110 H Lab Interpretation (test code = Abnormal 70516-4) [facility] [id number] 04:41:06 Test Item Value Reference Range Interpretation [...] MOREINFORMATION , SEE CLIENT ANNOUNCE MENT AT [email or web address] [email or web address]/ CalcLDL-C RISK RATIO LDL/HDL 3.83 RATIO <3.22 H (test code = 2238) UNABLE TO CALCULATE COMPREHENSIVE METABOLIC [id number] 04:41:06 Test Item Value Reference Range Interpretation Comments GLUCOSE (test code = 87 MG/DL 70-99 2216) BUN (test code = 19 MG/DL 6-20 2207) CREATININE (test 1.31 MG/DL 0.60-1.30 H EFFECTIVE code = 2214) 01/20/2021, [facility] HAS IMPLEMENTED THE NKF-ASN RECOMME NDED KD-EPI EGF R REFIT CALCULATI ON THAT DOES NOT I NCLUDE A COEFFICIENT FORRACE. FOR MO RE INFORMATION, SE E ANNOUNCEMENT [email or web address] eGFR (2020 CKD-EPI) 51 >60 L (test code = 85393) ML/MIN/1.73 CALC BUN/CREAT (test 15 RATIO 6-28 code = 2235) SODIUM (test code = 142 MEQ/L 439-753 2970) POTASSIUM (test code 3.8 MEQ/L 3.5-5.4 = 2228) CHLORIDE (test code 106 MEQ/L 95-107 = 2215) CARBON DIOXIDE (test 24 MEQ/L 19-31 code = 2206) CALCIUM (test code = 9.1 MG/DL 8.5-10.5 2208) PROTEIN, TOTAL (test 7.2 G/DL 6.1-8.3 code = 222) ALBUMIN (test code = 3.8 G/DL 3.5-5.2 2200) CALC GLOBULIN (test 3.4 G/DL 1.9-3.7 code = 2240) CALC A/G RATIO (test 1.1 RATIO 1.0-2.6 code = 223) BILIRUBIN, TOTAL <0.2 MG/DL See_Comment [Automated message] (test code = 2206) The syste [employer] which generated this result transmitted ref erence range: <=1.2. T he reference range was not used to int erpret this result as normal/abnormal . ALKALINE PHOSPHATASE 105 U/L 40-120 (test code = 2203) AST (test code = 19 U/L 9-40 2217) ALT (test code = 13 U/L 5-40 UNLE SS 2218) OTHERWISE INDIC ATED, ALL TESTING PER FORMED ATCLINICAL PATH [facility], [place] [address] [place] [address] LABORATORY DIRE CTOR: JAYCEE LEVY M.D. CLIA NUMBER [id number] CAP ACCREDITATION N O. [id number] HEMOGLOBIN [id number] 02:36:52 Test Item Value Reference Range Interpretation Comments HEMOGLOBIN A1c (test 7.3 % 4.2-5.6 H [employer] code = 65766) ASSOCIATION IDELINES FOR HGB A1C: PREDIABETES/INC REASED [...]
[2021-07-17 15:14] LABS: Absolute Lymphocytes (CBC) 1.5 K/uL (0.7-4.9); Hematocrit 33.5 % (36.0-45.0); Lymphocytes % 14.4 % (15.3-44.8); MPV 7.3 fL (7.6-11.3); RBC Red Blood Cell Count 3.91 M/uL (3.86-4.86)
[2021-07-17 15:24] LABS: Albumin 3.1 g/dL (3.4-5.0); Bilirubin Total 0.4 mg/dL (0.2-1.0); Potassium 4.4 mmol/L (3.5-5.1); Protein, Total 8.2 g/dL (6.4-8.2)
[2021-07-17] MEDS ORDERED: PANTOPRAZOLE 40 MG INJ ONE (15:37)
[2021-07-17] MEDS ORDERED: NA CHLORIDE 0.9% 1,000 ML ONE (15:37)
[2021-07-17] MEDS ORDERED: KETOROLAC 30 MG/ML INJ ONE (15:37)
[2021-07-17] MEDS ORDERED: ONDANSETRON 4 MG/2 ML VIAL ONE (15:37)
--- NOTE | 2021-07-17 16:15 | RAD REPORT ---
EXAM DESCRIPTION: CT - Abdomen Pelvis Wo Contrast - 07/17/2021 4:01 pm CLINICAL HISTORY: Abdominal pain COMPARISON: April 2021 TECHNIQUE: Computed axial tomography of the abdomen and pelvis was obtained. IV and oral contrast we re not requested. All CT scans are performed using dose optimization technique as appropriate and may include automated exposure control or mA/KV adjustment according to patient size. FINDINGS: The evaluation of solid organs, vessels and bowel is limited secondary to the lack of con trast administration. Cholelithiasis. Gallbladder wall does not appear thickened The liver, spleen, pancreas, adrenals and right kidney appear grossly normal. Tiny calculi left kidney. Hydronephrosis The appendix is normal. There is no evidence of diverticulitis. No adnexal mass. A tampon within the vagina IMPRESSION: Cholelithiasis Tiny nonobstructing left renal calculi
--- NOTE | 2021-07-17 16:37 | ER ---
Nurse's Notes [facility] Name: Elsy Bradford Age: 46 yrs Sex: Female : 1975 Arrival Date: 07/17/2021 Time: 14:08 Bed 13 Private MD: Diagnosis: Coronavirus infection, unspecified;Other cholelithiasis without obstruction Presentation: 07/17 14:11 Ebola Screen: Patient denies travel to an Ebola-affected area in the 21 days before ll1 illness onset. Risk Assessment: Do you want to hurt yourself or someone else? Patient reports no desire to harm self or others. 14:11 Acuity: ALIN 3 ll1 14:11 Method Of Arrival: Ambulatory 1 14:22 Chief complaint: Patient states: N/V with abd pain for 2 days. No known fever. ll1 Coronavirus screen: Vaccine status: Patient reports receiving the 2nd dose of the covid vaccine. Client denies travel out of the [place] in the last 14 days. cough unrelated to allergies, nausea, vomiting. Client presents with at least one sign or symptom that may indicate coronavirus-19. Standard/surgical mask placed on the client. Initial Sepsis Screen: Does the patient meet any 2 criteria? No. Patient's initial sepsis screen is negative. Does the patient have a suspected source of infection? Yes: Acute abdominal pain. Onset of symptoms was July 15, 2021. Triage Assessment: 14:23 General: Appears uncomfortable, ill, Behavior is calm, cooperative, appropriate for ll1 age. Pain: Complains of pain in abdomen Quality of pain is described as aching, crampy. GI: Reports lower abdominal pain, upper abdominal pain, cramping, nausea, vomiting. 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 - Social history:: Smoking status: Patient denies any tobacco usage or history of. Screenin:11 Abuse screen: Denies threats or abuse. Nutritional screening: No deficits noted. tw2 Tuberculosis screening: No symptoms or risk factors identified. Fall Risk None identified. Assessment: 16:24 Reassessment: Patient appears in no apparent distress at this time. Patient and/or tw2 family updated on plan of care and expected duration. Pain level reassessed. Patient is alert, oriented x 3, equal unlabored respirations, skin warm/dry/pink. Patient states feeling better. General: Appears uncomfortable. Neuro: Level of Consciousness is awake, alert, obeys commands, Oriented to person, place, time, situation. GI: Reports nausea is decreased. 17:26 Reassessment: Patient appears in no apparent distress at this time. Patient and/or tw2 family updated on plan of care and expected duration. Pain level reassessed. Patient is alert, oriented x 3, equal unlabored respirations, skin warm/dry/pink. Patient states feeling better. Vital Signs: 14:22 BP 149 / 95; Pulse 88; Resp 18; Temp 98.6; Pulse Ox 99% ; Weight 61.23 kg; Height 4 ft. ll1 11 in. (149.86 cm); Pain 10/10; 16:25 BP 146 / 92; Pulse 82; Resp 17; Temp 99.3(O); Pulse Ox 99% on R/A; tw2 17:25 BP 164 / 89; Pulse 83; Resp 17; Pulse Ox 100% on R/A; tw2 14:22 Body Mass Index 27.27 (61.23 kg, 149.86 cm) ll1 ED Course: 14:08 Patient arrived in ED. mr 14:09 [facility] kb 14:09 Aayush Benavides MD is Attending Physician. kb 14:11 Triage completed. ll1 14:11 Arm band placed on. ll1 15:10 Inserted saline lock: 20 gauge in right antecubital area, using aseptic technique. tw2 ,using aseptic technique. tech. 15:11 Angelina Botello, RN is Primary Nurse. tw2 15:11 Bed in low position. Call light in reach. Pulse ox on. NIBP on. tw2 15:12 COVID-19 SARS RT PCR (Document "Date of Onset" if Symptomatic) Sent. ld1 15:12 Flu Sent. ld1 16:03 Abdomen In Process Unspecified. EDMS 16:51 Awaiting: completion of IV fluids PRIOR to discharge. tw2 17:25 No provider procedures requiring assistance completed. IV discontinued, intact, tw2 bleeding controlled, No redness/swelling at site. Pressure dressing applied. Administered Medications: 15:55 Drug: Ketorolac 15 mg Route: IVP; Site: right antecubital; hancock 15:56 Follow up: Response: No adverse reaction hancock 15:55 Drug: ProTONIX (pantoprazole) 40 mg Route: IVP; Site: right antecubital; hancock 15:56 Follow up: Response: No adverse reaction hancock 15:56 Drug: NS 0.9% 1000 ml Route: IV; Rate: 1000 ml; Site: right antecubital; hancock 17:25 Follow up: Response: No adverse reaction; IV Status: Completed infusion; IV Intake: tw2 1000ml 15:56 Drug: Zofran (Ondansetron) 4 mg Route: IVP; Site: right antecubital; hancock 15:56 Follow up: Response: No adverse reaction hancock Medication: 15:11 VIS not applicable for this client. tw2 Intake: 17:25 IV: 1000ml; Total: 1000ml. tw2 Outcome: 16:37 Discharge ordered by MD. hathaway 17:26 Discharged to home ambulatory, with significant other. tw2 17:26 Condition: stable 17:26 Discharge instructions given to patient, family, Instructed on discharge instructions, follow up and referral plans. medication usage, Demonstrated understanding of instructions, follow-up care, medications, Prescriptions given X 1. 17:26 Patient left the ED. tw2 Signatures: Dispatcher [employer] EDMS Anna Rosas, [employer]SEK[employer]PER-Heather De La O Angelina Botello RN RN tw2 Kristine Collier RN RN 1 Yohana Shaikh RN RN ld1 Roberta Moreira RN RN hancock
--- NOTE | 2021-07-17 16:37 | EDPHYS ---
Physician Documentation [facility] Name: Elsy Bradford Age: 46 yrs Sex: Female : 1975 Arrival Date: 07/17/2021 Time: 14:08 Bed 13 Private MD: ED Physician Aayush Benavides HPI: 07/17 18:46 This 46 yrs old Female presents to ER via Ambulatory with complaints of kb Vomiting, Abdominal Pain. 18:46 The patient presents to the emergency department with nausea, vomiting, abdominal pain. kb Onset: The symptoms/episode began/occurred 2 day(s) ago. Possible causes: unknown. The symptoms are aggravated by nothing. The symptoms are alleviated by nothing. Associated signs and symptoms: Pertinent positives: abdominal pain, nausea, vomiting. Severity of symptoms: At their worst the symptoms were moderate in the emergency department the symptoms are unchanged. The patient has not experienced similar symptoms in the past. The patient has not recently seen a physician. Pt reports lower mid abd pain that radiated up abd to throat with nausea and vomiting that started 2 days ago. States she has had fever, chills, malaise. 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 - Social history:: Smoking status: Patient denies any tobacco usage or history of. ROS: 18:45 Respiratory: Negative for shortness of breath, cough, wheezing, and pleuritic chest kb pain. 18:45 Constitutional: Positive for body aches, chills, fatigue, fever, malaise. 18:45 Abdomen/GI: Positive for abdominal pain, nausea and vomiting. 18:45 All other systems are negative. 18:47 ENT: Positive for sore throat. kb Exam: 18:46 Constitutional: This is a well developed, well nourished patient who is awake, alert, kb and in no acute distress. Head/Face: Normocephalic, atraumatic. ENT: Moist Mucous membranes Cardiovascular: Regular rate and rhythm with a normal S1 and S2. No gallops, murmurs, or rubs. No pulse deficits. Respiratory: Respirations even and unlabored. No increased work of breathing. Talking in full sentences Abdomen/GI: Soft, non-tender. No distention Skin: Warm, dry with normal turgor. Normal color. MS/ Extremity: Pulses equal, no cyanosis. Neurovascular intact. Full, normal range of motion. Neuro: Awake and alert, GCS 15, oriented to person, place, time, and situation. Moves all extremities. Normal gait. Psych: Awake, alert, with orientation to person, place and time. Behavior, mood, and affect are within normal limits. Vital Signs: 14:22 BP 149 / 95; Pulse 88; Resp 18; Temp 98.6; Pulse Ox 99% ; Weight 61.23 kg; Height 4 ft. ll1 11 in. (149.86 cm); Pain 10/10; 16:25 BP 146 / 92; Pulse 82; Resp 17; Temp 99.3(O); Pulse Ox 99% on R/A; tw2 17:25 BP 164 / 89; Pulse 83; Resp 17; Pulse Ox 100% on R/A; tw2 14:22 Body Mass Index 27.27 (61.23 kg, 149.86 cm) ll1 MDM: 14:51 Patient medically screened. kb 18:44 Data reviewed: vital signs, nurses notes. Data interpreted: Pulse oximetry: on room air kb is 100 %. Interpretation: normal. Counseling: I had a detailed discussion with the patient and/or guardian regarding: the historical points, exam findings, and any diagnostic results supporting the discharge/admit diagnosis, lab results, radiology results, the need for outpatient follow up, a family practitioner, to return to the emergency department if symptoms worsen or persist or if there are any questions or concerns that arise at home. 07/17 14:35 Order name: CBC with Diff; Complete Time: 15:26 kb 07/17 14:35 Order name: CMP; Complete Time: 15:26 kb 07/17 14:35 Order name: Lipase; Complete Time: 15:26 kb 07/17 14:54 Order name: COVID-19 SARS RT PCR (Document "Date of Onset" if Symptomatic); Complete ld1 Time: 16:15 07/17 14:54 Order name: Flu; Complete Time: 15:41 ld1 07/17 14:35 Order name: IV Saline Lock; Complete Time: 15:12 kb 07/17 14:35 Order name: Labs collected and sent; Complete Time: 15:12 kb 07/17 15:47 Order name: Abdomen ; Complete Time: 16:22 EDMS Administered Medications: 15:55 Drug: Ketorolac 15 mg Route: IVP; Site: right antecubital; hancock 15:56 Follow up: Response: No adverse reaction hancock 15:55 Drug: ProTONIX (pantoprazole) 40 mg Route: IVP; Site: right antecubital; hancock 15:56 Follow up: Response: No adverse reaction hancock 15:56 Drug: NS 0.9% 1000 ml Route: IV; Rate: 1000 ml; Site: right antecubital; hancock 17:25 Follow up: Response: No adverse reaction; IV Status: Completed infusion; IV Intake: tw2 1000ml 15:56 Drug: Zofran (Ondansetron) 4 mg Route: IVP; Site: right antecubital; hancock 15:56 Follow up: Response: No adverse reaction hancock Disposition: 18:48 Attestation: The patient's history, exam findings, diagnostics, and a [facility] or procedures was reviewed in detail with Anan SNIDER. Disposition Summary: 07/17/21 16:37 Discharge Ordered Location: Home kb Condition: Stable kb Diagnosis - Coronavirus infection, unspecified kb - Other cholelithiasis without obstruction kb Followup: kb - With: Emergency Department - When: As needed - Reason: Worsening of condition Followup: kb - With: Private Physician - When: 2 - 3 days - Reason: Recheck today's complaints, Continuance of care, Re-evaluation by your physician Discharge Instructions: - Discharge Summary Sheet kb - Cholelithiasis kb - COVID-19 kb Forms: - Medication Reconciliation Form kb - Thank You Letter kb - Antibiotic Education kb - Prescription Opioid Use kb - Work release form tw2 - Family Work Release tw2 Prescriptions: - Zofran 4 mg Oral Tablet - take 1 tablet by ORAL route every 6 hours As needed; 20 tablet; Refills: 0, kb Product Selection Permitted Signatures: Dispatcher [employer] EDMS Anna Rosas FNP-C FNP-Ckb Lewis, Lynsay, RN RN ll1 Roberta Moreira RN RN Aayush Tracey MD MD [id number] Angelina Botello RN tw2 Corrections: (The following items were deleted from the chart) 15:47 15:28 Abdomen Pelvis W Con+CT.RAD.BRZ ordered. EDMS EDMS
[2021-07-17 17:35] VITALS: TEMP 99.3
[2021-07-17 17:36] VITALS: BP 164/89; O2SAT 100
== END 2021-07-17 17:26 | disposition home or self-care (01) ==
LOC: ER 14:06
DX: U07.1 COVID-19 (principal); K80.80 Other cholelithiasis without obstruction; E11.9 Type 2 diabetes mellitus without complications; I10 Essential (primary) hypertension; Z88.5 Allergy status to narcotic agent
CPT/HCPCS: 36415; 74176; 80053; 83690; 85025; 87804; 96361; 96374; 96375; 99284; C9113; J2405; J7030; U0003

== ENCOUNTER 2022-04-09 14:42 | Inpatient (IN) | payer OTHER ==
--- OUTSIDE RECORDS SUMMARY | 2022-04-09 14:49 | XMS REPORT | Continuity of Care Document ---
:1975 Author Organization [facility] t Address [address] [place] [address] [place] [id number] Care Team Providers Name Role Phone Karen Logan Primary Care Physician [phone] Problems This patient has no known problems. Allergies, Adverse Reactions, Alerts This patient has no known allergies or adverse reactions. Medications Ordered Filled Start Stop Current Ordering Indication Dosage Frequency Signature Comments Components Source Medication Medication Date Date Medication? Clinician (SIG) Name Name furosemide 2-0 No 1mg 20 mg 6-16 tablet 00:00: 00 furosemide 2022-0 No 1mg 20 mg 6-16 tablet 00:00: 00 furosemide 2022-0 No 1mg 20 mg 5-03 tablet 00:00: 00 furosemide 2022-0 No 1mg 20 mg 5-03 tablet 00:00: 00 lisinopril 2022-0 No 1mg 5 mg tablet 4- 00:00: 00 Januvia 100 2022-0 No 1mg mg tablet - 00:00: 00 glipizide 2022-0 No 1mg ER 10 mg 4-07 tablet, 00:00: extended 00 release 24 hr lisinopril 2022-0 No 1mg 5 mg tablet - 00:00: 00 Januvia 100 2022-0 No 1mg mg tablet 4- 00:00: 00 glipizide 2022-0 No 1mg ER 10 mg 4-07 tablet, 00:00: extended 00 release 24 hr Dose 2022-0 No Unknown 4- 00:00: 00 Dose 2022-0 No Unknown 4- 00:00: 00 Dose 2022-0 No Unknown 4- 00:00: 00 Dose 2022-0 No Unknown 4- 00:00: 00 Dose 2022-0 No Unknown 4- 00:00: 00 Dose 2022-0 No Unknown 4-01 00:00: 00 Dose 2022-0 No Unknown 4-01 00:00: 00 Dose 2022-0 No Unknown 4-01 00:00: 00 Dose 2022-0 No Unknown 4-01 00:00: 00 Dose 2022-0 No Unknown 4-01 00:00: 00 Dose 2022-0 No Unknown 4-01 00:00: 00 Dose 2022-0 No Unknown 4-01 00:00: 00 Dose 2022-0 No Unknown 4-01 00:00: 00 Dose 2022-0 No Unknown 4-01 00:00: 00 Dose 2022-0 No Unknown 4-01 00:00: 00 Dose 2022-0 No Unknown 4-01 00:00: 00 Dose 2022-0 No Unknown 4-01 00:00: 00 Dose 2022-0 No Unknown 4-01 00:00: 00 Dose 2022-0 No Unknown 4-01 00:00: 00 Dose 2022-0 No Unknown 4-01 00:00: 00 Dose 2022-0 No Unknown 4-01 00:00: 00 Dose 2022-0 No Unknown 4-01 00:00: 00 Dose 2022-0 No Unknown 4-01 00:00: 00 Dose 2022-0 No Unknown 4-01 00:00: 00 Dose 2022-0 No Unknown 4-01 00:00: 00 Dose 2022-0 No Unknown 4-01 00:00: 00 Dose 2022-0 No Unknown 4-01 00:00: 00 Dose 2022-0 No Unknown 4-01 00:00: 00 Dose 2022-0 No Unknown 4-01 00:00: 00 Dose 2022-0 No Unknown 4-01 00:00: 00 lisinopril 2021-1 No 1mg 5 mg tablet 2-15 00:00: 00 rosuvastati 2021-1 No 1mg n 20 mg 2-15 tablet 00:00: 00 furosemide 2021-1 No 1mg 20 mg 2-15 tablet 00:00: 00 lisinopril 2021-1 No 1mg 5 mg tablet 2-15 00:00: 00 rosuvastati 2021-1 No 1mg n 20 mg 2-15 tablet 00:00: 00 furosemide 2021-1 No 1mg 20 mg 2-15 tablet 00:00: 00 Januvia 50 2021-0 No 1mg mg tablet 8-25 00:00: 00 glipizide 2021-0 No 1mg ER 10 mg 8-25 tablet, 00:00: extended 00 release 24 hr Dose 2021-0 No Unknown 8-25 00:00: 00 Macrobid 2021-0 No 1mg 100 mg 8-25 capsule 00:00: 00 Januvia 50 1-0 No 1mg mg tablet 8-25 00:00: 00 glipizide 2021-0 No 1mg ER 10 mg 8-25 tablet, 00:00: extended 00 release 24 hr Dose 1-0 No Unknown 8-25 00:00: 00 Macrobid 1-0 No 1mg 100 mg 8-25 capsule 00:00: 00 Macrobid 1-0 No 1mg 100 mg 6-07 capsule 00:00: 00 Macrobid 2021-0 No 1mg 100 mg 6-07 capsule 00:00: 00 ibuprofen 2021-0 No 1mg 600 mg 5-24 tablet 00:00: 00 ibuprofen 2021-0 No 1mg 600 mg 5-24 tablet 00:00: 00 glipizide 5 1-0 No 1mg mg tablet 5-21 00:00: 00 Januvia 50 1-0 No 1mg mg tablet 5-21 00:00: 00 Bactrim DS 1-0 No 1mg 800 mg-160 5-21 mg tablet 00:00: 00 glipizide 2021-0 No 1mg ER 10 mg 5-21 tablet, 00:00: extended 00 release 24 hr Dose 1-0 No Unknown 5-21 00:00: 00 glipizide 5 1-0 No 1mg mg tablet 5-21 00:00: 00 Januvia 50 1-0 No 1mg mg tablet 5-21 00:00: 00 Bactrim DS 1-0 No 1mg 800 mg-160 5-21 mg tablet 00:00: 00 glipizide 2021-0 No 1mg ER 10 mg 5-21 tablet, 00:00: extended 00 release 24 hr Dose 1-0 No Unknown 5-21 00:00: 00 levothyroxi 2015-0 No 1mcg ne 25 mcg 7-12 tablet 00:00: 00 glipizide 5 2016-0 No 1mg mg tablet 7-12 00:00: 00 lovastatin 2016-0 No 1mg 10 mg 7-12 tablet 00:00: 00 lovastatin 2016-0 No 1mg 10 mg 7-12 tablet 00:00: 00 levothyroxi 2016-0 No 1mcg ne 25 mcg 7-12 tablet 00:00: 00 levothyroxi 2016-0 No 1mcg ne 25 mcg 7-12 tablet 00:00: 00 glipizide 5 2016-0 No 1mg mg tablet 7-12 00:00: 00 lovastatin 2016-0 No 1mg 10 mg 7-12 tablet 00:00: 00 lovastatin 2016-0 No 1mg 10 mg 7-12 tablet 00:00: 00 levothyroxi 2016-0 No 1mcg ne 25 mcg 7-12 tablet 00:00: 00 aspirin 81 2016-0 No 1mg mg 6-22 tablet,gokul 00:00: yed release 00 metformin 2016-0 No 1mg 1,000 mg 6-22 tablet 00:00: 00 metformin 2016-0 No 1mg 1,000 mg 6-22 tablet 00:00: 00 aspirin 81 2016-0 No 1mg mg 6-22 tablet,gokul 00:00: yed release 00 metformin 2016-0 No 1mg 1,000 mg 6-22 tablet 00:00: 00 metformin 2016-0 No 1mg 1,000 mg 6-22 tablet 00:00: 00 Immunizations Ordered Immunization Filled Immunization Date Status Commen ts Source Name Name Deepa HENDRICKSID-19 2021-01-22 Completed Vaccine 00:00:00 Moderna COVID-19 2021-01-22 Completed Vaccine 00:00:00 Moderna COVID-19 2020-07-29 Completed Vaccine 00:00:00 Moderna COVID-19 2020-07-29 Completed Vaccine 00:00:00 Moderna COVID-19 2020-06-28 Completed Vaccine 00:00:00 Moderna COVID-19 2020-06-28 Completed Vaccine 00:00:00 Vital Signs Vital Name Observation Time Observation Value Comments Source BP Systolic 2022-02-05 11:42:00 160 mm[Hg] BP Diastolic 2022-02-05 11:42:00 92 mm[Hg] Weight Measured 2022-02-05 11:42:00 146.40 pounds Height Measured 2022-02-05 11:42:00 59.45 inches Body Temperature 2022-02-05 11:42:00 98.30 degrees Heart Rate 2022-02-05 11:42:00 89.00 /min Respiratory Rate 2022-02-05 11:42:00 BP Systolic 2021-11-13 15:14:00 124 mm[Hg] BP Diastolic 2021-11-13 15:14:00 88 mm[Hg] Weight Measured 2021-11-13 15:14:00 181.00 pounds Height Measured 2021-11-13 15:14:00 59.45 inches Body Temperature 2021-11-13 15:14:00 98.70 degrees Heart Rate 2021-11-13 15:14:00 89.00 /min Respiratory Rate 2021-11-13 15:14:00 BP Systolic 2021-07-24 15:47:00 146 mm[Hg] BP Diastolic 2021-07-24 15:47:00 73 mm[Hg] Weight Measured 2021-07-24 15:47:00 133.20 pounds Height Measured 2021-07-24 15:47:00 59.45 inches Body Temperature 2021-07-24 15:47:00 98.60 degrees Heart Rate 2021-07-24 15:47:00 87.00 /min Respiratory Rate 2021-07-24 15:47:00 BP Systolic 2021-06-10 16:17:00 130 mm[Hg] BP Diastolic 2021-06-10 16:17:00 75 mm[Hg] Weight Measured 2021-06-10 16:17:00 151.60 pounds Height Measured 2021-06-10 16:17:00 59.45 inches Body Temperature 2021-06-10 16:17:00 98.60 degrees Heart Rate 2021-06-10 16:17:00 Respiratory Rate 2021-06-10 16:17:00 BP Systolic 2021-05-15 15:13:00 113 mm[Hg] BP Diastolic 2021-05-15 15:13:00 76 mm[Hg] Weight Measured 2021-05-15 15:13:00 141.80 pounds Height Measured 2021-05-15 15:13:00 59.45 inches Body Temperature 2021-05-15 15:13:00 98.40 degrees Heart Rate 2021-05-15 15:13:00 98.00 /min Respiratory Rate 2021-05-15 15:13:00 BP Systolic 2021-05-09 17:01:00 115 mm[Hg] BP Diastolic 2021-05-09 17:01:00 76 mm[Hg] Weight Measured 2021-05-09 17:01:00 135.00 pounds Height Measured 2021-05-09 17:01:00 59.45 inches Body Temperature 2021-05-09 17:01:00 97.40 degrees Heart Rate 2021-05-09 17:01:00 91.00 /min Respiratory Rate 2021-05-09 17:01:00 BP Systolic 2021-01-22 15:23:00 164 mm[Hg] BP Diastolic 2021-01-22 15:23:00 92 mm[Hg] Weight Measured 2021-01-22 15:23:00 143.40 pounds Height Measured 2021-01-22 15:23:00 59.45 inches Body Temperature 2021-01-22 15:23:00 96.40 degrees Heart Rate 2021-01-22 15:23:00 Respiratory Rate 2021-01-22 15:23:00 BP Systolic 2020-10-02 14:18:00 123 mm[Hg] BP Diastolic 2020-10-02 14:18:00 75 mm[Hg] Weight Measured 2020-10-02 14:18:00 140.60 pounds Height Measured 2020-10-02 14:18:00 59.45 inches Body Temperature 2020-10-02 14:18:00 98.40 degrees Heart Rate 2020-10-02 14:18:00 93.00 /min Respiratory Rate 2020-10-02 14:18:00 BP Systolic 2020-07-11 08:52:00 142 mm[Hg] BP Diastolic 2020-07-11 08:52:00 93 mm[Hg] Weight Measured 2020-07-11 08:52:00 139.00 pounds Height Measured 2020-07-11 08:52:00 59.45 inches Body Temperature 2020-07-11 08:52:00 97.80 degrees Heart Rate 2020-07-11 08:52:00 91.00 /min Respiratory Rate 2020-07-11 08:52:00 18.00 /min BP Systolic 2020-07-06 09:15:00 152 mm[Hg] BP Diastolic 2020-07-06 09:15:00 90 mm[Hg] Weight Measured 2020-07-06 09:15:00 138.40 pounds Height Measured 2020-07-06 09:15:00 59.45 inches Body Temperature 2020-07-06 09:15:00 98.40 degrees Heart Rate 2020-07-06 09:15:00 88.00 /min Respiratory Rate 2020-07-06 09:15:00 16.00 /min BP Systolic 2020-06-28 14:02:00 133 mm[Hg] BP Diastolic 2020-06-28 14:02:00 85 mm[Hg] Weight Measured 2020-06-28 14:02:00 139.00 pounds Height Measured 2020-06-28 14:02:00 59.00 inches Body Temperature 2020-06-28 14:02:00 97.60 degrees Heart Rate 2020-06-28 14:02:00 87.00 /min Respiratory Rate 2020-06-28 14:02:00 Procedures This patient has no known procedures. Plan of Care Planned Activity Planned Date Details Comments Source Goal Plan of Care Note [code = 82669-4] Goal Plan of Care Note [code = 41463-9] Goal Plan of Care Note [code = 75903-5] Goal Plan of Care Note [code = 40271-0] Goal Plan of Care Note [code = 93245-3] Goal Plan of Care Note [code = 68091-3] Goal Plan of Care Note [code = 64333-0] Goal Plan of Care Note [code = 03278-1] Goal Plan of Care Note [code = 37619-1] Goal Plan of Care Note [code = 62439-8] Goal Plan of Care Note [code = 46380-6] Goal Plan of Care Note [code = 45776-3] Goal Plan of Care Note [code = 89214-0] Goal Plan of Care Note [code = 93284-5] Goal Plan of Care Note [code = 52339-1] Goal Plan of Care Note [code = 42093-4] Goal Plan of Care Note [code = 73725-7] Goal Plan of Care Note [code = 16992-3] Goal Plan of Care Note [code = 97338-9] Goal Plan of Care Note [code = 52425-5] Goal Plan of Care Note [code = 61209-3] Goal Plan of Care Note [code = 84501-3] Goal Plan of Care Note [code = 96015-3] Goal Plan of Care Note [code = 93866-3] Goal Plan of Care Note [code = 26115-8] Goal Plan of Care Note [code = 52399-7] Goal Plan of Care Note [code = 76994-9] Goal Plan of Care Note [code = 67823-0] Goal Plan of Care Note [code = 07914-9] Goal Plan of Care Note [code = 35313-8] Goal Plan of Care Note [code = 52064-0] Goal Plan of Care Note [code = 09639-0] Goal Plan of Care Note [code = 75453-9] Goal Plan of Care Note [code = 07699-4] Goal Plan of Care Note [code = 63675-8] Goal Plan of Care Note [code = 39553-8] Goal Plan of Care Note [code = 37760-3] Goal Plan of Care Note [code = 21083-2] Goal Plan of Care Note [code = 88140-7] Goal Plan of Care Note [code = 86183-2] Goal Plan of Care Note [code = 93422-3] Goal Plan of Care Note [code = 78981-0] Goal Plan of Care Note [code = 34055-0] Goal Plan of Care Note [code = 29273-6] Goal Plan of Care Note [code = 19513-4] Goal Plan of Care Note [code = 13042-8] Goal Plan of Care Note [code = 21671-4] Goal Plan of Care Note [code = 71911-6] Goal Plan of Care Note [code = 05923-1] Goal Plan of Care Note [code = 47477-3] Goal Plan of Care Note [code = 76551-7] Goal Plan of Care Note [code = 19695-9] Goal Plan of Care Note [code = 87133-3] Encounters Start End Encounter Admission Attending Care Care Encounter Source Date/Time Date/Time Type Type Clinicians Facility Department ID 2022-02-26 2022-02-26 Outpatient SFA SFA [id number] 023 Matthew 14:58:07 14:58:07 0119 F [place] 2022-02-20 2022-02-20 Outpatient SFA SFA [id number] 023 Matthew 14:15:19 14:15:19 0113 F [place] 2022-02-11 2022-02-11 Outpatient SFA SFA [id number] 023 Matthew 09:20:44 09:20:44 0104 F [place] 2022-02-05 2022-02-05 Outpatient SFA SFA [id number] 022 Matthew 11:38:34 11:38:34 1229 F [place] 2022-02-05 2022-02-05 Outpatient [id number] 00:00:00 00:00:00 Visit 8648-40cc [id number] 2021-11-17 Outpatient SFA SFA [id number] 022 Matthew 10:42:46 10:42:46 1010 F [place] 2021-11-13 2021-11-13 Outpatient SFA SFA [id number] 022 Matthew 15:06:22 15:06:22 1006 F [place] 2021-11-13 2021-11-13 Outpatient [id number] 00:00:00 00:00:00 Visit [id number] Results Test Description Test Time Test Comments Results Result Comments Source LIPID PANEL 2022-02-06 05:52:40 Test Item Value Reference Range Interpretation Comme nts CHOLESTEROL (test code = 2210) 174 MG/DL <200 TRIGLYCERIDES (test code = 2232) 192 MG/DL <150 H HDL CHOLESTEROL (test code = 45 MG/DL >39 2220) CALC LDL CHOL (test code = 2237) 100 MG/DL <100 H NOTE: CALCULATED LDL IS BASED ON CHAT[place] METHOD WHICHINCLUDES A DJUSTABLE TRIGLYCERIDE:VL DL CHOLESTEROL RATIO.THIS FACT OR VARIES BY MEASURED TRIGLY CERIDE AND NON-HDLCHOLESTE ROL CONCENTRATIONS WITH INCREASED CALCULATED LDL SEENIN HIGHER T RIGLYCERIDE OR LOWER NON-HDL S PECIMENS. FOR MOREINFORMATION , SEE CLIENT ANNOUNCEMENT AT [email or web address] RISK RATIO LDL/HDL (test code = 2.22 RATIO <3.22 2237) COMPREHENSIVE METABOLIC [id number] 05:52:40 Test Item Value Reference Range Interpretation Comments GLUCOSE (test code = 166 MG/DL 70-99 H 2216) BUN (test code = 33 MG/DL 6-20 H 2207) CREATININE (test 1.77 MG/DL 0.60-1.30 H code = 221) eGFR (2020 CKD-EPI) 35 >60 L (test code = 16213) ML/MIN/1.73 CALC BUN/CREAT (test 19 RATIO 6-28 code = 2235) SODIUM (test code = 141 MEQ/L 036-559 8735) POTASSIUM (test code 4.9 MEQ/L 3.5-5.4 = 2227) CHLORIDE (test code 108 MEQ/L 95-107 H = 2214) CARBON DIOXIDE (test 22 MEQ/L 19-31 code = 2206) CALCIUM (test code = 9.2 MG/DL 8.5-10.5 2208) PROTEIN, TOTAL (test 7.1 G/DL 6.1-8.3 code = 2229) ALBUMIN (test code = 3.7 G/DL 3.5-5.2 2200) CALC GLOBULIN (test 3.4 G/DL 1.9-3.7 code = 2240) CALC A/G RATIO (test 1.1 RATIO 1.0-2.6 code = 2234) BILIRUBIN, TOTAL <0.2 MG/DL See_Comment [Automated message] (test code = 2207) The [employer] which generated this result transmitted ref erence range: <=1.2. T he reference range was not used to int erpret this result as normal/abnormal . ALKALINE PHOSPHATASE 98 U/L 40-123 (test code = 2204) AST (test code = 14 U/L 9-40 2217) ALT (test code = 8 U/L 5-40 UNLESS OTH ERWISE 2218) INDICATED, ALL TESTING PERFORM ED [facility], [place] [address] [place] [address] IVAN ONOFRE DIRECTOR: JAYCEE RAMIREZ M.D. CLIA NUMBER [id number] [facility] ACCREDITATION N O. [id number] HEMOGLOBIN [id number] 04:18:15 Test Item Value Reference Range Interpretation Comments HEMOGLOBIN A1c (test 7.5 % 4.2-5.6 H [employer]IC AN DIABETES code = 72663) ASSOCIATION IDELINES FOR HGB A1C: PREDIABETES/INC REASED RISK . . . . . . . 5.7 -6.4% DIAGNOSIS OF DI ABETES . . . . . . . . . >=6 .5% WITH CONFIRMATION OR APPROPRIATE SYMPTOMS NOTE: ASSAY MAY BE AFFECTED BY HEMOGLOBINOPATH IES (SICKLE CELL ANEMIA, S- C DISEASE, OTHERS) OR TOO FICIALLY LOWERED BY DECR EASED RED CELL SURVIVAL ( HEMOLYTIC ANEMIAS, BLOOD LOSS, ETC.). CONSIDER ALTERN ATE TESTING OR LABORATORY C ONSULTATION. HEMOGLOBIN [id number] 00:00:00 Test Item Value Reference Range Interpretation Comments HEMOGLOBIN A1c (test code = 26333) 7.5 % HEMOGLOBIN [id number] 00:00:00 Test Item Value Reference Range Interpretation Comments HEMOGLOBIN A1c (test code = 87725) 7.5 % HEMOGLOBIN [id number] 00:00:00 Test Item Value Reference Range Interpretation Comments HEMOGLOBIN A1c (test code = 28608) 7.5 % LIPID [id number] 00:00:00 Test Item Value Reference Range Interpretation Comments CHOLESTEROL (test code = 2210) 174 MG/DL TRIGLYCERIDES (test code = 2232) 192 MG/DL HDL CHOLESTEROL (test code = 2220) 45 MG/DL CALC LDL CHOL (test code = 2237) 100 MG/DL RISK RATIO LDL/HDL (test code = 2.22 RATIO 2238) LIPID [id number] 00:00:00 Test Item Value Reference Range Interpretation Comments CHOLESTEROL (test code = 2210) 174 MG/DL TRIGLYCERIDES (test code = 2232) 192 MG/DL HDL CHOLESTEROL (test code = 2220) 45 MG/DL CALC LDL CHOL (test code = 2237) 100 MG/DL RISK RATIO LDL/HDL (test code = 2.22 RATIO 2238) COMPREHENSIVE METABOLIC [id number] 00:00:00 Test Item Value Reference Range Interpretation Comments GLUCOSE (test code = 2217) 166 MG/DL BUN (test code = 2208) 33 MG/DL CREATININE (test code = 2214) 1.77 MG/DL eGFR (2020 CKD-EPI) (test code 35 ML/MIN/1.73 = 14184) CALC BUN/CREAT (test code = 19 RATIO 2235) SODIUM (test code = 2231) 141 MEQ/L POTASSIUM (test code = 2228) 4.9 MEQ/L CHLORIDE (test code = 2215) 108 MEQ/L CARBON DIOXIDE (test code = 22 MEQ/L 2205) CALCIUM (test code = 2209) 9.2 MG/DL PROTEIN, TOTAL (test code = 7.1 G/DL 2228) ALBUMIN (test code = 2201) 3.7 G/DL CALC GLOBULIN (test code = 3.4 G/DL 2240) CALC A/G RATIO (test code = 1.1 RATIO 2234) BILIRUBIN, TOTAL (test code = <0.2 MG/DL 2206) ALKALINE PHOSPHATASE (test 98 U/L code = 220) AST (test code = 2218) 14 U/L ALT (test code = 2219) 8 U/L COMPREHENSIVE METABOLIC [id number] 00:00:00 Test Item Value Reference Range Interpretation Comments GLUCOSE (test code = 2217) 166 MG/DL BUN (test code = 2208) 33 MG/DL CREATININE (test code = 2214) 1.77 MG/DL eGFR (2020 CKD-EPI) (test code 35 ML/MIN/1.73 = 78664) CALC BUN/CREAT (test code = 19 RATIO 2235) SODIUM (test code = 2231) 141 MEQ/L POTASSIUM (test code = 2228) 4.9 MEQ/L CHLORIDE (test code = 2215) 108 MEQ/L CARBON DIOXIDE (test code = 22 MEQ/L 2205) CALCIUM (test code = 2209) 9.2 MG/DL PROTEIN, TOTAL (test code = 7.1 G/DL 2228) ALBUMIN (test code = 2201) 3.7 G/DL CALC GLOBULIN (test code = 3.4 G/DL 2240) CALC A/G RATIO (test code = 1.1 RATIO 2234) BILIRUBIN, TOTAL (test code = <0.2 MG/DL 2207) ALKALINE PHOSPHATASE (test 98 U/L code = 2204) AST (test code = 2218) 14 U/L ALT (test code = 2219) 8 U/L HEMOGLOBIN [id number] 05:24:49 Test Item Value Reference Range Interpretation Comments HEMOGLOBIN A1c (test 7.8 % 4.2-5.6 H [employer] AN DIABETES code = 47305) ASSOCIATION IDELINES FOR HGB A1C: PREDIABETES/INC REASED RISK . . . . . . . 5.7 -6.4% DIAGNOSIS OF DI ABETES . . . . . . . . . >=6 .5% WITH CONFIRMATION OR APPROPRIATE SYMPTOMS NOTE: ASSAY MAY BE AFFECTED BY HEMOGLOBINOPATH IES (SICKLE CELL ANEMIA, S- C DISEASE, OTHERS) OR TOO FICIALLY LOWERED BY DECR EASED RED CELL SURVIVAL ( HEMOLYTIC ANEMIAS, BLOOD LOSS, ETC.). CONSIDER ALTERN ATE TESTING OR LABORATORY C ONSULTATION. LIPID [id number] 05:18:45 Test Item Value Reference Range Interpretation Comments CHOLESTEROL (test 222 MG/DL <200 H code = 2210) TRIGLYCERIDES (test 313 MG/DL <150 H code = 2232) HDL CHOLESTEROL (test 39 MG/DL >39 L code = 2220) CALC LDL CHOL (test 138 MG/DL <100 H NOTE: C ALCULATED LDL code = 2237) IS BASED ON [place] METHOD WHICHINCLUDES ADJUSTABLE TRIGLYCERIDE:VL DL CHOLESTEROL RAT IO.THIS FACTOR VARIES B Y MEASURED TRIGLY CERIDE AND NON-HDLCHOL ESTEROL CONCENTRATIONS WITH INCREASED CALCU LATED LDL SEENIN HIGH ER TRIGLYCERIDE OR LOWER NON-HDL SPECIME NS. FOR MOREINFORMATION , SEE CLIENT ANNOUNCE MENT AT [email or web address] RISK RATIO LDL/HDL 3.54 RATIO <3.22 H (test code = 2238) COMPREHENSIVE METABOLIC [id number] 05:18:45 Test Item Value Reference Range Interpretation Comments GLUCOSE (test code = 202 MG/DL 70-99 H 2216) BUN (test code = 23 MG/DL 6-20 H 2207) CREATININE (test 1.57 MG/DL 0.60-1.30 H code = 2214) eGFR (2020 CKD-EPI) 41 >60 L (test code = 41354) ML/MIN/1.73 CALC BUN/CREAT (test 15 RATIO 6-28 code = 2235) SODIUM (test code = 139 MEQ/L 647-703 0234) POTASSIUM (test code 4.6 MEQ/L 3.5-5.4 = 2228) CHLORIDE (test code 102 MEQ/L 95-107 = 2215) CARBON DIOXIDE (test 29 MEQ/L 19-31 code = 2206) CALCIUM (test code = 9.3 MG/DL 8.5-10.5 220) PROTEIN, TOTAL (test 7.0 G/DL 6.1-8.3 code = 2229) ALBUMIN (test code = 3.6 G/DL 3.5-5.2 220) CALC GLOBULIN (test 3.4 G/DL 1.9-3.7 code = 2240) CALC A/G RATIO (test 1.1 RATIO 1.0-2.6 code = 2234) BILIRUBIN, TOTAL <0.2 MG/DL See_Comment [Automated message] (test code = 2207) The syste m which generated this result transmitted ref erence range: <=1.2. T he reference range was not used to int erpret this result as normal/abnormal . ALKALINE PHOSPHATASE 98 U/L 40-120 (test code = 2204) AST (test code = 10 U/L 9-40 2217) ALT (test code = 11 U/L 5-40 UNLESS OTH ERWISE 2218) INDICATED, ALL TESTING PERFORM ED [facility], [facility]. [address] [place] [id number] [place] [address] DIRECTOR: Stephan MARTEIA NUMBER [id number] [facility] ACCREDITATION N O. [id number] HEMOGLOBIN A1c [ADDED]2021-07-26 00:00:00 Test Item Value Reference Range Interpretation Comments HEMOGLOBIN A1c (test code = 94387) 7.8 % HEMOGLOBIN A1c [ADDED]2021-07-26 00:00:00 Test Item Value Reference Range Interpretation Comments HEMOGLOBIN A1c (test code = 56696) 7.8 % HEMOGLOBIN A1c [ADDED]2021-07-26 00:00:00 Test Item Value Reference Range Interpretation Comments HEMOGLOBIN A1c (test code = 11912) 7.8 % LIPID PANEL [ADDED]2021-07-26 00:00:00 Test Item Value Reference Range Interpretation Comments CHOLESTEROL (test code = 2210) 222 MG/DL TRIGLYCERIDES (test code = 2232) 313 MG/DL HDL CHOLESTEROL (test code = 2220) 39 MG/DL CALC LDL CHOL (test code = 2237) 138 MG/DL RISK RATIO LDL/HDL (test code = 3.54 RATIO 2238) LIPID PANEL [ADDED]2021-07-26 00:00:00 Test Item Value Reference Range Interpretation Comments CHOLESTEROL (test code = 2210) 222 MG/DL TRIGLYCERIDES (test code = 2232) 313 MG/DL HDL CHOLESTEROL (test code = 2220) 39 MG/DL CALC LDL CHOL (test code = 2237) 138 MG/DL RISK RATIO LDL/HDL (test code = 3.54 RATIO 2238) COMPREHENSIVE METABOLIC PANEL [ADDED]2021-07-26 00:00:00 Test Item Value Reference Range Interpretation Comments GLUCOSE (test code = 2217) 202 MG/DL BUN (test code = 2208) 23 MG/DL CREATININE (test code = 2214) 1.57 MG/DL eGFR (2020 CKD-EPI) (test code 41 ML/MIN/1.73 = 74698) CALC BUN/CREAT (test code = 15 RATIO 2235) SODIUM (test code = 2231) 139 MEQ/L POTASSIUM (test code = 2228) 4.6 MEQ/L CHLORIDE (test code = 2215) 102 MEQ/L CARBON DIOXIDE (test code = 29 MEQ/L 2205) CALCIUM (test code = 2209) 9.3 MG/DL PROTEIN, TOTAL (test code = 7.0 G/DL 2228) ALBUMIN (test code = 2201) 3.6 G/DL CALC GLOBULIN (test code = 3.4 G/DL 2240) CALC A/G RATIO (test code = 1.1 RATIO 2234) BILIRUBIN, TOTAL (test code = <0.2 MG/DL 2206) ALKALINE PHOSPHATASE (test 98 U/L code = 2204) AST (test code = 2218) 10 U/L ALT (test code = 2219) 11 U/L COMPREHENSIVE METABOLIC PANEL [ADDED]2021-07-26 00:00:00 Test Item Value Reference Range Interpretation Comments GLUCOSE (test code = 2217) 202 MG/DL BUN (test code = 2208) 23 MG/DL CREATININE (test code = 2214) 1.57 MG/DL eGFR (2020 CKD-EPI) (test code 41 ML/MIN/1.73 = 92295) CALC BUN/CREAT (test code = 15 RATIO 2235) SODIUM (test code = 2231) 139 MEQ/L POTASSIUM (test code = 2228) 4.6 MEQ/L CHLORIDE (test code = 2215) 102 MEQ/L CARBON DIOXIDE (test code = 29 MEQ/L 2205) CALCIUM (test code = 2209) 9.3 MG/DL PROTEIN, TOTAL (test code = 7.0 G/DL 2228) ALBUMIN (test code = 2201) 3.6 G/DL CALC GLOBULIN (test code = 3.4 G/DL 2239) CALC A/G RATIO (test code = 1.1 RATIO 2233) BILIRUBIN, TOTAL (test code = <0.2 MG/DL 2206) ALKALINE PHOSPHATASE (test 98 U/L code = 2204) AST (test code = 2218) 10 U/L ALT (test code = 2219) 11 U/L HEMOGLOBIN A1c [ADDED]2021-07-26 00:00:00 Test Item Value Reference Range Interpretation Comments HEMOGLOBIN A1c (test code = 27155) 7.8 % HEMOGLOBIN A1c [ADDED]2021-07-26 00:00:00 Test Item Value Reference Range Interpretation Comments HEMOGLOBIN A1c (test code = 62847) 7.8 % HEMOGLOBIN A1c [ADDED]2021-07-26 00:00:00 Test Item Value Reference Range Interpretation Comments HEMOGLOBIN A1c (test code = 37026) 7.8 % LIPID PANEL [ADDED]2021-07-26 00:00:00 Test Item Value Reference Range Interpretation Comments CHOLESTEROL (test code = 2210) 222 MG/DL TRIGLYCERIDES (test code = 2232) 313 MG/DL HDL CHOLESTEROL (test code = 2220) 39 MG/DL CALC LDL CHOL (test code = 2237) 138 MG/DL RISK RATIO LDL/HDL (test code = 3.54 RATIO 2238) LIPID PANEL [ADDED]2021-07-26 00:00:00 Test Item Value Reference Range Interpretation Comments CHOLESTEROL (test code = 2210) 222 MG/DL TRIGLYCERIDES (test code = 2232) 313 MG/DL HDL CHOLESTEROL (test code = 2220) 39 MG/DL CALC LDL CHOL (test code = 2237) 138 MG/DL RISK RATIO LDL/HDL (test code = 3.54 RATIO 2238) COMPREHENSIVE METABOLIC PANEL [ADDED]2021-07-26 00:00:00 Test Item Value Reference Range Interpretation Comments GLUCOSE (test code = 2217) 202 MG/DL BUN (test code = 2208) 23 MG/DL CREATININE (test code = 2214) 1.57 MG/DL eGFR (2020 CKD-EPI) (test code 41 ML/MIN/1.73 = 11822) CALC BUN/CREAT (test code = 15 RATIO 2235) SODIUM (test code = 2231) 139 MEQ/L POTASSIUM (test code = 2228) 4.6 MEQ/L CHLORIDE (test code = 2215) 102 MEQ/L CARBON DIOXIDE (test code = 29 MEQ/L 220) CALCIUM (test code = 2209) 9.3 MG/DL PROTEIN, TOTAL (test code = 7.0 G/DL 2228) ALBUMIN (test code = 2201) 3.6 G/DL CALC GLOBULIN (test code = 3.4 G/DL 2240) CALC A/G RATIO (test code = 1.1 RATIO 2234) BILIRUBIN, TOTAL (test code = <0.2 MG/DL 2206) ALKALINE PHOSPHATASE (test 98 U/L code = 2204) AST (test code = 2218) 10 U/L ALT (test code = 2219) 11 U/L COMPREHENSIVE METABOLIC PANEL [ADDED][id number] 00:00:00 Test Item Value Reference Range Interpretation Comments GLUCOSE (test code = 2217) 202 MG/DL BUN (test code = 2208) 23 MG/DL CREATININE (test code = 2214) 1.57 MG/DL eGFR (2020 CKD-EPI) (test code 41 ML/MIN/1.73 = 55621) CALC BUN/CREAT (test code = 15 RATIO 223) SODIUM (test code = 2231) 139 MEQ/L POTASSIUM (test code = 2228) 4.6 MEQ/L CHLORIDE (test code = 2215) 102 MEQ/L CARBON DIOXIDE (test code = 29 MEQ/L 2205) CALCIUM (test code = 2209) 9.3 MG/DL PROTEIN, TOTAL (test code = 7.0 G/DL 2228) ALBUMIN (test code = 2201) 3.6 G/DL CALC GLOBULIN (test code = 3.4 G/DL 2240) CALC A/G RATIO (test code = 1.1 RATIO 2234) BILIRUBIN, TOTAL (test code = <0.2 MG/DL 2206) ALKALINE PHOSPHATASE (test 98 U/L code = 2204) AST (test code = 2218) 10 U/L ALT (test code = 2219) 11 U/L HEMOGLOBIN [id number] 06:11:51 Test Item Value Reference Range Interpretation Comments HEMOGLOBIN A1c (test 10.8 % 4.2-5.6 H AMERIC AN DIABETES code = 47231) ASSOCIATION IDELINES FOR HGB A1C: PREDIABETES/INC REASED RISK . . . . . . . 5 .7-6.4% DIAGNOSIS OF DI ABETES . . . . . . . . . >=6 .5% WITH CONFIRMATION OR APPROPRIATE SYMPTOMS NOTE: ASSAY MAY BE AFFECTED BY HEMOGLOBINOPATH IES (SICKLE CELL ANEMIA, S- C DISEASE, OTHERS) OR TOO FICIALLY LOWERED BY DECR EASED RED CELL SURVIVAL ( HEMOLYTIC ANEMIAS, BLOOD LOSS, ETC.). CONSIDER ALTERN ATE TESTING OR LABORATORY C ONSULTATION. LIPID [id number] 05:14:42 Test Item Value Reference Range Interpretation [...] , SEE CLIENT ANNOUNCE MENT AT [email or web address] RISK RATIO LDL/HDL 2.90 RATIO <3.22 (test code = 2238) COMPREHENSIVE METABOLIC [id number] 05:14:42 Test Item Value Reference Range Interpretation Comments GLUCOSE (test code = 58 MG/DL 70-99 L 2216) BUN (test code = 19 MG/DL 6-20 2207) CREATININE (test 1.40 MG/DL 0.60-1.30 H code = 2214) eGFR (2020 CKD-EPI) 47 >60 L (test code = 02802) ML/MIN/1.73 CALC BUN/CREAT (test 14 RATIO 6-28 code = 2235) SODIUM (test code = 143 MEQ/L 317-058 1780) POTASSIUM (test code 4.7 MEQ/L 3.5-5.4 = 2227) CHLORIDE (test code 107 MEQ/L 95-107 = 2215) CARBON DIOXIDE (test 23 MEQ/L 19-31 code [...] [Automated message] (test code = 2206) The [employer] which generated this result transmitted ref erence range: <=1.2. T he reference range was not used to int erpret this result as normal/abnormal . ALKALINE PHOSPHATASE 109 U/L 40-120 (test code = 2203) AST (test code = 14 U/L 9-40 2217) ALT (test code = 11 U/L 5-40 UNLESS OTH ERWISE 2218) INDICATED, ALL TESTING PERFORM ED ATCLINICAL PATH [facility]LOGY LABORATORIES, [facility]. [address] [place] [id number] [place] [address] DIRECTOR: Stephan MARTEIA NUMBER [id number] CAP ACCREDITATION N O. [id number] HEMOGLOBIN [id number] 00:00:00 Test Item Value Reference Range Interpretation Comments HEMOGLOBIN A1c (test code = 50575) 10.8 % HEMOGLOBIN [id number] 00:00:00 Test Item Value Reference Range Interpretation Comments HEMOGLOBIN A1c (test code = 91384) 10.8 % LIPID [id number] 00:00:00 Test Item Value Reference Range Interpretation Comments CHOLESTEROL (test code = 2210) 235 MG/DL TRIGLYCERIDES (test code = 2232) 215 MG/DL HDL CHOLESTEROL (test code = 2220) 51 MG/DL CALC LDL CHOL (test code = 2237) 148 MG/DL RISK RATIO LDL/HDL (test code = 2.90 RATIO 2238) LIPID [id number] 00:00:00 Test Item Value Reference Range Interpretation Comments CHOLESTEROL (test code = 2210) 235 MG/DL TRIGLYCERIDES (test code = 2232) 215 MG/DL HDL CHOLESTEROL (test code = 2220) 51 MG/DL CALC LDL CHOL (test code = 2237) 148 MG/DL RISK RATIO LDL/HDL (test code = 2.90 RATIO 2238) COMPREHENSIVE METABOLIC [id number] 00:00:00 Test Item Value Reference Range Interpretation Comments GLUCOSE (test code = 2217) 58 MG/DL BUN (test code = 2208) 19 MG/DL CREATININE (test code = 2214) 1.40 MG/DL eGFR (2020 CKD-EPI) (test code 47 ML/MIN/1.73 = 93467) CALC BUN/CREAT (test code = 14 RATIO 2235) SODIUM (test code = 2231) 143 MEQ/L POTASSIUM (test code = 2228) 4.7 MEQ/L CHLORIDE (test code = 2215) 107 MEQ/L CARBON DIOXIDE (test code = 23 MEQ/L 2205) CALCIUM (test code = 2209) 9.0 MG/DL PROTEIN, TOTAL (test code = 7.0 G/DL 2228) ALBUMIN (test code = 2201) 3.5 G/DL CALC GLOBULIN (test code = 3.5 G/DL 2240) CALC A/G RATIO (test code = 1.0 RATIO 2234) BILIRUBIN, TOTAL (test code = <0.2 MG/DL 2206) ALKALINE PHOSPHATASE (test 109 U/L code = 2204) AST (test code = 2218) 14 U/L ALT (test code = 2219) 11 U/L COMPREHENSIVE METABOLIC [id number] 00:00:00 Test Item Value Reference Range Interpretation Comments GLUCOSE (test code = 2217) 58 MG/DL BUN (test code = 2208) 19 MG/DL CREATININE (test code = 2214) 1.40 MG/DL eGFR (2020 CKD-EPI) (test code 47 ML/MIN/1.73 = 12344) CALC BUN/CREAT (test code = 14 RATIO 2235) SODIUM (test code = 2231) 143 MEQ/L POTASSIUM (test code = 2228) 4.7 MEQ/L CHLORIDE (test code = 2215) 107 MEQ/L CARBON DIOXIDE (test code = 23 MEQ/L 2205) CALCIUM (test code = 2209) 9.0 MG/DL PROTEIN, TOTAL (test code = 7.0 G/DL 2228) ALBUMIN (test code = 2201) 3.5 G/DL CALC GLOBULIN (test code = 3.5 G/DL 2239) CALC A/G RATIO (test code = 1.0 RATIO 2233) BILIRUBIN, TOTAL (test code = <0.2 MG/DL 2206) ALKALINE PHOSPHATASE (test 109 U/L code = 2204) AST (test code = 2218) 14 U/L ALT (test code = 2219) 11 U/L HEMOGLOBIN [id number] 00:00:00 Test Item Value Reference Range Interpretation Comments HEMOGLOBIN A1c (test code = 88509) 10.8 % HEMOGLOBIN [id number] 00:00:00 Test Item Value Reference Range Interpretation Comments HEMOGLOBIN A1c (test code = 25841) 10.8 % HEMOGLOBIN [id number] 00:00:00 Test Item Value Reference Range Interpretation Comments HEMOGLOBIN A1c (test code = 34700) 10.8 % LIPID [id number] 00:00:00 Test Item Value Reference Range Interpretation Comments CHOLESTEROL (test code = 2210) 235 MG/DL TRIGLYCERIDES (test code = 2232) 215 MG/DL HDL CHOLESTEROL (test code = 2220) 51 MG/DL CALC LDL CHOL (test code = 2237) 148 MG/DL RISK RATIO LDL/HDL (test code = 2.90 RATIO 2238) LIPID [id number] 00:00:00 Test Item Value Reference Range Interpretation Comments CHOLESTEROL (test code = 2210) 235 MG/DL TRIGLYCERIDES (test code = 2232) 215 MG/DL HDL CHOLESTEROL (test code = 2220) 51 MG/DL CALC LDL CHOL (test code = 2237) 148 MG/DL RISK RATIO LDL/HDL (test code = 2.90 RATIO 2238) COMPREHENSIVE METABOLIC [id number] 00:00:00 Test Item Value Reference Range Interpretation Comments GLUCOSE (test code = 2217) 58 MG/DL BUN (test code = 2208) 19 MG/DL CREATININE (test code = 2214) 1.40 MG/DL eGFR (2020 CKD-EPI) (test code 47 ML/MIN/1.73 = 74402) CALC BUN/CREAT (test code = 14 RATIO 2235) SODIUM (test code = 2231) 143 MEQ/L POTASSIUM (test code = 2228) 4.7 MEQ/L CHLORIDE (test code = 2215) 107 MEQ/L CARBON DIOXIDE (test code = 23 MEQ/L 2206) CALCIUM (test code = 2209) 9.0 MG/DL PROTEIN, TOTAL (test code = 7.0 G/DL 2228) ALBUMIN (test code = 2201) 3.5 G/DL CALC GLOBULIN (test code = 3.5 G/DL 2240) CALC A/G RATIO (test code = 1.0 RATIO 2234) BILIRUBIN, TOTAL (test code = <0.2 MG/DL 2206) ALKALINE PHOSPHATASE (test 109 U/L code = 2204) AST (test code = 2218) 14 U/L ALT (test code = 2219) 11 U/L COMPREHENSIVE METABOLIC [id number] 00:00:00 Test Item Value Reference Range Interpretation Comments GLUCOSE (test code = 2217) 58 MG/DL BUN (test code = 2208) 19 MG/DL CREATININE (test code = 2214) 1.40 MG/DL eGFR (2020 CKD-EPI) (test code 47 ML/MIN/1.73 = 16334) CALC BUN/CREAT (test code = 14 RATIO 2235) SODIUM (test code = 2231) 143 MEQ/L POTASSIUM (test code = 2228) 4.7 MEQ/L CHLORIDE (test code = 2215) 107 MEQ/L CARBON DIOXIDE (test code = 23 MEQ/L 2205) CALCIUM (test code = 2209) 9.0 MG/DL PROTEIN, TOTAL (test code = 7.0 G/DL 2228) ALBUMIN (test code = 2201) 3.5 G/DL CALC GLOBULIN (test code = 3.5 G/DL 2240) CALC A/G RATIO (test code = 1.0 RATIO 2234) BILIRUBIN, TOTAL (test code = <0.2 MG/DL 2206) ALKALINE PHOSPHATASE (test 109 U/L code = 2204) AST (test code = 2218) 14 U/L ALT (test code = 2219) 11 U/L HEMOGLOBIN [id number] 00:00:00 Test Item Value Reference Range Interpretation Comments HEMOGLOBIN A1c (test code = 22637) 10.8 % CBC W/AUTO [id number] 00:00:00 Test Item Value Reference Range Interpretation Comments WBC (test code = 1001) 7.8 K/UL RBC (test code = 1002) 3.10 M/UL HEMOGLOBIN (test code = 1003) 9.0 G/DL HEMATOCRIT (test code = 1004) 27.1 % MCV (test code = 1005) 87.4 fL MCH (test code = 1006) 29.0 PG MCHC (test code = 1007) 33.2 G/DL RDW (test code = 1038) 13.5 % NEUTROPHILS (test code = 1008) 57.8 % LYMPHOCYTES (test code = 1010) 32.4 % MONOCYTES (test code = 1011) 8.1 % EOSINOPHILS (test code = 1012) 1.0 % BASOPHILS (test code = 1013) 0.4 % IMMATURE GRANULOCYTES (test 0.3 % code = 1036) NUCLEATED RBCS (test code = 0.0 /100WBC'S 1065) PLATELET COUNT (test code = 509 K/UL 1015) ABSOLUTE NEUTROPHILS (test code 4.52 K/UL = 1066) ABSOLUTE LYMPHOCYTES (test code 2.53 K/UL = 1067) ABSOLUTE MONOCYTES (test code = 0.63 K/UL 1068) ABSOLUTE EOSINOPHILS (test code 0.08 K/UL = 1040) ABSOLUTE BASOPHILS (test code = 0.03 K/UL 1069) ABS IMMATURE GRANULOCYTES (test 0.02 K/UL code = 1020) ABS NUCLEATED RBCS (test code = 0.00 K/UL 49516) CBC W/AUTO [id number] 00:00:00 Test Item Value Reference Range Interpretation Comments WBC (test code = 1001) 7.8 K/UL RBC (test code = 1002) 3.10 M/UL HEMOGLOBIN (test code = 1003) 9.0 G/DL HEMATOCRIT (test code = 1004) 27.1 % MCV (test code = 1005) 87.4 fL MCH (test code = 1006) 29.0 PG MCHC (test code = 1007) 33.2 G/DL RDW (test code = 1038) 13.5 % NEUTROPHILS (test code = 1008) 57.8 % LYMPHOCYTES (test code = 1010) 32.4 % MONOCYTES (test code = 1011) 8.1 % EOSINOPHILS (test code = 1012) 1.0 % BASOPHILS (test code = 1013) 0.4 % IMMATURE GRANULOCYTES (test 0.3 % code = 1036) NUCLEATED RBCS (test code = 0.0 /100WBC'S 1065) PLATELET COUNT (test code = 509 K/UL 1015) ABSOLUTE NEUTROPHILS (test code 4.52 K/UL = 1066) ABSOLUTE LYMPHOCYTES (test code 2.53 K/UL = 1067) ABSOLUTE MONOCYTES (test code = 0.63 K/UL 1068) ABSOLUTE EOSINOPHILS (test code 0.08 K/UL = 1040) ABSOLUTE BASOPHILS (test code = 0.03 K/UL 1069) ABS IMMATURE GRANULOCYTES (test 0.02 K/UL code = 1020) ABS NUCLEATED RBCS (test code = 0.00 K/UL 59809) CBC W/AUTO [id number] 00:00:00 Test Item Value Reference Range Interpretation Comments WBC (test code = 1001) 7.8 K/UL RBC (test code = 1002) 3.10 M/UL HEMOGLOBIN (test code = 1003) 9.0 G/DL HEMATOCRIT (test code = 1004) 27.1 % MCV (test code = 1005) 87.4 fL MCH (test code = 1006) 29.0 PG MCHC (test code = 1007) 33.2 G/DL RDW (test code = 1038) 13.5 % NEUTROPHILS (test code = 1008) 57.8 % LYMPHOCYTES (test code = 1010) 32.4 % MONOCYTES (test code = 1011) 8.1 % EOSINOPHILS (test code = 1012) 1.0 % BASOPHILS (test code = 1013) 0.4 % IMMATURE GRANULOCYTES (test 0.3 % code = 1036) NUCLEATED RBCS (test code = 0.0 /100WBC'S 1065) PLATELET COUNT (test code = 509 K/UL 1015) ABSOLUTE NEUTROPHILS (test code 4.52 K/UL = 1066) ABSOLUTE LYMPHOCYTES (test code 2.53 K/UL = 1067) ABSOLUTE MONOCYTES (test code = 0.63 K/UL 1068) ABSOLUTE EOSINOPHILS (test code 0.08 K/UL = 1040) ABSOLUTE BASOPHILS (test code = 0.03 K/UL 1069) ABS IMMATURE GRANULOCYTES (test 0.02 K/UL code = 1020) ABS NUCLEATED RBCS (test code = 0.00 K/UL 47840) HEMOGLOBIN [id number] 00:00:00 Test Item Value Reference Range Interpretation Comments HEMOGLOBIN A1c (test code = 51626) 13.0 % HEMOGLOBIN [id number] 00:00:00 Test Item Value Reference Range Interpretation Comments HEMOGLOBIN A1c (test code = 61717) 13.0 % HEMOGLOBIN [id number] 00:00:00 Test Item Value Reference Range Interpretation Comments HEMOGLOBIN A1c (test code = 23899) 13.0 % LIPID [id number] 00:00:00 Test Item Value Reference Range Interpretation Comments CHOLESTEROL (test code = 2210) 278 MG/DL TRIGLYCERIDES (test code = 2232) 553 MG/DL HDL CHOLESTEROL (test code = 38 MG/DL 2220) CALC LDL CHOL (test code = 2237) (NOTE) MG/DL RISK RATIO LDL/HDL (test code = 4.13 RATIO 2238) LIPID [id number] 00:00:00 Test Item Value Reference Range Interpretation Comments CHOLESTEROL (test code = 2210) 278 MG/DL TRIGLYCERIDES (test code = 2232) 553 MG/DL HDL CHOLESTEROL (test code = 38 MG/DL 2220) CALC LDL CHOL (test code = 2237) (NOTE) MG/DL RISK RATIO LDL/HDL (test code = 4.13 RATIO 2238) COMPREHENSIVE METABOLIC [id number] 00:00:00 Test Item Value Reference Range Interpretation Comments GLUCOSE (test code = 2217) 304 MG/DL BUN (test code = 2208) 26 MG/DL CREATININE (test code = 2214) 1.81 MG/DL eGFR (2020 CKD-EPI) (test code 34 ML/MIN/1.73 = 89028) CALC BUN/CREAT (test code = 14 RATIO 2235) SODIUM (test code = 2231) 137 MEQ/L POTASSIUM (test code = 2228) 4.7 MEQ/L CHLORIDE (test code = 2215) 99 MEQ/L CARBON DIOXIDE (test code = 26 MEQ/L 2205) CALCIUM (test code = 2209) 8.7 MG/DL PROTEIN, TOTAL (test code = 6.9 G/DL 2228) ALBUMIN (test code = 2201) 3.4 G/DL CALC GLOBULIN (test code = 3.5 G/DL 2240) CALC A/G RATIO (test code = 1.0 RATIO 2234) BILIRUBIN, TOTAL (test code = <0.2 MG/DL 2206) ALKALINE PHOSPHATASE (test 124 U/L code = 2204) AST (test code = 2218) 15 U/L ALT (test code = 2219) 13 U/L COMPREHENSIVE METABOLIC [id number] 00:00:00 Test Item Value Reference Range Interpretation Comments GLUCOSE (test code = 2217) 304 MG/DL BUN (test code = 2208) 26 MG/DL CREATININE (test code = 2214) 1.81 MG/DL eGFR (2020 CKD-EPI) (test code 34 ML/MIN/1.73 = 76298) CALC BUN/CREAT (test code = 14 RATIO 2235) SODIUM (test code = 2231) 137 MEQ/L POTASSIUM (test code = 2228) 4.7 MEQ/L CHLORIDE (test code = 2215) 99 MEQ/L CARBON DIOXIDE (test code = 26 MEQ/L 2205) CALCIUM (test code = 2209) 8.7 MG/DL PROTEIN, TOTAL (test code = 6.9 G/DL 2228) ALBUMIN (test code = 2201) 3.4 G/DL CALC GLOBULIN (test code = 3.5 G/DL 2240) CALC A/G RATIO (test code = 1.0 RATIO 2234) BILIRUBIN, TOTAL (test code = <0.2 MG/DL 2206) ALKALINE PHOSPHATASE (test 124 U/L code = 2204) AST (test code = 2218) 15 U/L ALT (test code = 2219) 13 U/L [id number] 00:00:00 Test Item Value Reference Range Interpretation Comments TSH, THIRD GENERATION (test code 5.840 UIU/ML = 2821) [id number] 00:00:00 Test Item Value Reference Range Interpretation Comments TSH, THIRD GENERATION (test code 5.840 UIU/ML = 2821) [id number] 00:00:00 Test Item Value Reference Range Interpretation Comments TSH, THIRD GENERATION (test code 5.840 UIU/ML = 2821) CBC W/AUTO [id number] 00:00:00 Test Item Value Reference Range Interpretation Comments WBC (test code = 1001) 7.8 K/UL RBC (test code = 1002) 3.10 M/UL HEMOGLOBIN (test code = 1003) 9.0 G/DL HEMATOCRIT (test code = 1004) 27.1 % MCV (test code = 1005) 87.4 fL MCH (test code = 1006) 29.0 PG MCHC (test code = 1007) 33.2 G/DL RDW (test code = 1038) 13.5 % NEUTROPHILS (test code = 1008) 57.8 % LYMPHOCYTES (test code = 1010) 32.4 % MONOCYTES (test code = 1011) 8.1 % EOSINOPHILS (test code = 1012) 1.0 % BASOPHILS (test code = 1013) 0.4 % IMMATURE GRANULOCYTES (test 0.3 % code = 1036) NUCLEATED RBCS (test code = 0.0 /100WBC'S 1065) PLATELET COUNT (test code = 509 K/UL 1015) ABSOLUTE NEUTROPHILS (test code 4.52 K/UL = 1066) ABSOLUTE LYMPHOCYTES (test code 2.53 K/UL = 1067) ABSOLUTE MONOCYTES (test code = 0.63 K/UL 1068) ABSOLUTE EOSINOPHILS (test code 0.08 K/UL = 1040) ABSOLUTE BASOPHILS (test code = 0.03 K/UL 1069) ABS IMMATURE GRANULOCYTES (test 0.02 K/UL code = 1020) ABS NUCLEATED RBCS (test code = 0.00 K/UL 46446) CBC W/AUTO [id number] 00:00:00 Test Item Value Reference Range Interpretation Comments WBC (test code = 1001) 7.8 K/UL RBC (test code = 1002) 3.10 M/UL HEMOGLOBIN (test code = 1003) 9.0 G/DL HEMATOCRIT (test code = 1004) 27.1 % MCV (test code = 1005) 87.4 fL MCH (test code = 1006) 29.0 PG MCHC (test code = 1007) 33.2 G/DL RDW (test code = 1038) 13.5 % NEUTROPHILS (test code = 1008) 57.8 % LYMPHOCYTES (test code = 1010) 32.4 % MONOCYTES (test code = 1011) 8.1 % EOSINOPHILS (test code = 1012) 1.0 % BASOPHILS (test code = 1013) 0.4 % IMMATURE GRANULOCYTES (test 0.3 % code = 1036) NUCLEATED RBCS (test code = 0.0 /100WBC'S 1065) PLATELET COUNT (test code = 509 K/UL 1015) ABSOLUTE NEUTROPHILS (test code 4.52 K/UL = 1066) ABSOLUTE LYMPHOCYTES (test code 2.53 K/UL = 1067) ABSOLUTE MONOCYTES (test code = 0.63 K/UL 1068) ABSOLUTE EOSINOPHILS (test code 0.08 K/UL = 1040) ABSOLUTE BASOPHILS (test code = 0.03 K/UL 1069) ABS IMMATURE GRANULOCYTES (test 0.02 K/UL code = 1020) ABS NUCLEATED RBCS (test code = 0.00 K/UL 71047) CBC W/AUTO [id number] 00:00:00 Test Item Value Reference Range Interpretation Comments WBC (test code = 1001) 7.8 K/UL RBC (test code = 1002) 3.10 M/UL HEMOGLOBIN (test code = 1003) 9.0 G/DL HEMATOCRIT (test code = 1004) 27.1 % MCV (test code = 1005) 87.4 fL MCH (test code = 1006) 29.0 PG MCHC (test code = 1007) 33.2 G/DL RDW (test code = 1038) 13.5 % NEUTROPHILS (test code = 1008) 57.8 % LYMPHOCYTES (test code = 1010) 32.4 % MONOCYTES (test code = 1011) 8.1 % EOSINOPHILS (test code = 1012) 1.0 % BASOPHILS (test code = 1013) 0.4 % IMMATURE GRANULOCYTES (test 0.3 % code = 1036) NUCLEATED RBCS (test code = 0.0 /100WBC'S 1065) PLATELET COUNT (test code = 509 K/UL 1015) ABSOLUTE NEUTROPHILS (test code 4.52 K/UL = 1066) ABSOLUTE LYMPHOCYTES (test code 2.53 K/UL = 1067) ABSOLUTE MONOCYTES (test code = 0.63 K/UL 1068) ABSOLUTE EOSINOPHILS (test code 0.08 K/UL = 1040) ABSOLUTE BASOPHILS (test code = 0.03 K/UL 1069) ABS IMMATURE GRANULOCYTES (test 0.02 K/UL code = 1020) ABS NUCLEATED RBCS (test code = 0.00 K/UL 10782) HEMOGLOBIN [id number] 00:00:00 Test Item Value Reference Range Interpretation Comments HEMOGLOBIN A1c (test code = 05314) 13.0 % HEMOGLOBIN [id number] 00:00:00 Test Item Value Reference Range Interpretation Comments HEMOGLOBIN A1c (test code = 46757) 13.0 % HEMOGLOBIN [id number] 00:00:00 Test Item Value Reference Range Interpretation Comments HEMOGLOBIN A1c (test code = 14157) 13.0 % LIPID [id number] 00:00:00 Test Item Value Reference Range Interpretation Comments CHOLESTEROL (test code = 2210) 278 MG/DL TRIGLYCERIDES (test code = 2232) 553 MG/DL HDL CHOLESTEROL (test code = 38 MG/DL 2220) CALC LDL CHOL (test code = 2237) (NOTE) MG/DL RISK RATIO LDL/HDL (test code = 4.13 RATIO 2238) LIPID [id number] 00:00:00 Test Item Value Reference Range Interpretation Comments CHOLESTEROL (test code = 2210) 278 MG/DL TRIGLYCERIDES (test code = 2232) 553 MG/DL HDL CHOLESTEROL (test code = 38 MG/DL 2220) CALC LDL CHOL (test code = 2237) (NOTE) MG/DL RISK RATIO LDL/HDL (test code = 4.13 RATIO 2238) COMPREHENSIVE METABOLIC [id number] 00:00:00 Test Item Value Reference Range Interpretation Comments GLUCOSE (test code = 2217) 304 MG/DL BUN (test code = 2208) 26 MG/DL CREATININE (test code = 2214) 1.81 MG/DL eGFR (2020 CKD-EPI) (test code 34 ML/MIN/1.73 = 73761) CALC BUN/CREAT (test code = 14 RATIO 2235) SODIUM (test code = 2231) 137 MEQ/L POTASSIUM (test code = 2228) 4.7 MEQ/L CHLORIDE (test code = 2215) 99 MEQ/L CARBON DIOXIDE (test code = 26 MEQ/L 2205) CALCIUM (test code = 2209) 8.7 MG/DL PROTEIN, TOTAL (test code = 6.9 G/DL 2228) ALBUMIN (test code = 2201) 3.4 G/DL CALC GLOBULIN (test code = 3.5 G/DL 2239) CALC A/G RATIO (test code = 1.0 RATIO 2234) BILIRUBIN, TOTAL (test code = <0.2 MG/DL 2206) ALKALINE PHOSPHATASE (test 124 U/L code = 2204) AST (test code = 2218) 15 U/L ALT (test code = 2219) 13 U/L COMPREHENSIVE METABOLIC [id number] 00:00:00 Test Item Value Reference Range Interpretation Comments GLUCOSE (test code = 2217) 304 MG/DL BUN (test code = 2208) 26 MG/DL CREATININE (test code = 2214) 1.81 MG/DL eGFR (2020 CKD-EPI) (test code 34 ML/MIN/1.73 = 67843) CALC BUN/CREAT (test code = 14 RATIO 2235) SODIUM (test code = 2231) 137 MEQ/L POTASSIUM (test code = 2228) 4.7 MEQ/L CHLORIDE (test code = 2215) 99 MEQ/L CARBON DIOXIDE (test code = 26 MEQ/L 2205) CALCIUM (test code = 2209) 8.7 MG/DL PROTEIN, TOTAL (test code = 6.9 G/DL 2228) ALBUMIN (test code = 2201) 3.4 G/DL CALC GLOBULIN (test code = 3.5 G/DL 2240) CALC A/G RATIO (test code = 1.0 RATIO 2234) BILIRUBIN, TOTAL (test code = <0.2 MG/DL 2206) ALKALINE PHOSPHATASE (test 124 U/L code = 2204) AST (test code = 2218) 15 U/L ALT (test code = 2219) 13 U/L [id number] 00:00:00 Test Item Value Reference Range Interpretation Comments TSH, THIRD GENERATION (test code 5.840 UIU/ML = 2821) [id number] 00:00:00 Test Item Value Reference Range Interpretation Comments TSH, THIRD GENERATION (test code 5.840 UIU/ML = 2821) [id number] 00:00:00 Test Item Value Reference Range Interpretation Comments TSH, THIRD GENERATION (test code 5.840 UIU/ML = 2821) HEMOGLOBIN [id number] 00:00:00 Test Item Value Reference Range Interpretation Comments HEMOGLOBIN A1c (test code = 42310) 7.3 % HEMOGLOBIN [id number] 00:00:00 Test Item Value Reference Range Interpretation Comments HEMOGLOBIN A1c (test code = 34760) 7.3 % HEMOGLOBIN [id number] 00:00:00 Test Item Value Reference Range Interpretation Comments HEMOGLOBIN A1c (test code = 01190) 7.3 % LIPID [id number] 00:00:00 Test Item Value Reference Range Interpretation Comments CHOLESTEROL (test code = 2210) 230 MG/DL TRIGLYCERIDES (test code = 2232) 455 MG/DL HDL CHOLESTEROL (test code = 35 MG/DL 2220) CALC LDL CHOL (test code = 2237) (NOTE) MG/DL RISK RATIO LDL/HDL (test code = 3.83 RATIO 2238) LIPID [id number] 00:00:00 Test Item Value Reference Range Interpretation Comments CHOLESTEROL (test code = 2210) 230 MG/DL TRIGLYCERIDES (test code = 2232) 455 MG/DL HDL CHOLESTEROL (test code = 35 MG/DL 2220) CALC LDL CHOL (test code = 2237) (NOTE) MG/DL RISK RATIO LDL/HDL (test code = 3.83 RATIO 2238) COMPREHENSIVE METABOLIC [id number] 00:00:00 Test Item Value Reference Range Interpretation Comments GLUCOSE (test code = 2217) 87 MG/DL BUN (test code = 2208) 19 MG/DL CREATININE (test code = 2214) 1.31 MG/DL eGFR (2020 CKD-EPI) (test code 51 ML/MIN/1.73 = 19478) CALC BUN/CREAT (test code = 15 RATIO 2235) SODIUM (test code = 2231) 142 MEQ/L POTASSIUM (test code = 2228) 3.8 MEQ/L CHLORIDE (test code = 2215) 106 MEQ/L CARBON DIOXIDE (test code = 24 MEQ/L 2205) CALCIUM (test code = 2209) 9.1 MG/DL PROTEIN, TOTAL (test code = 7.2 G/DL 2228) ALBUMIN (test code = 2201) 3.8 G/DL CALC GLOBULIN (test code = 3.4 G/DL 2240) CALC A/G RATIO (test code = 1.1 RATIO 2234) BILIRUBIN, TOTAL (test code = <0.2 MG/DL 2206) ALKALINE PHOSPHATASE (test 105 U/L code = 2204) AST (test code = 2218) 19 U/L ALT (test code = 2219) 13 U/L COMPREHENSIVE METABOLIC [id number] 00:00:00 Test Item Value Reference Range Interpretation Comments GLUCOSE (test code = 2217) 87 MG/DL BUN (test code = 2208) 19 MG/DL CREATININE (test code = 2214) 1.31 MG/DL eGFR (2020 CKD-EPI) (test code 51 ML/MIN/1.73 = 95341) CALC BUN/CREAT (test code = 15 RATIO 2235) SODIUM (test code = 2231) 142 MEQ/L POTASSIUM (test code = 2228) 3.8 MEQ/L CHLORIDE (test code = 2215) 106 MEQ/L CARBON DIOXIDE (test code = 24 MEQ/L 2205) CALCIUM (test code = 2209) 9.1 MG/DL PROTEIN, TOTAL (test code = 7.2 G/DL 2228) ALBUMIN (test code = 2201) 3.8 G/DL CALC GLOBULIN (test code = 3.4 G/DL 2239) CALC A/G RATIO (test code = 1.1 RATIO 2233) BILIRUBIN, TOTAL (test code = <0.2 MG/DL 2206) ALKALINE PHOSPHATASE (test 105 U/L code = 2204) AST (test code = 2218) 19 U/L ALT (test code = 2219) 13 U/L HEMOGLOBIN [id number] 00:00:00 Test Item Value Reference Range Interpretation Comments HEMOGLOBIN A1c (test code = 09849) 7.3 % HEMOGLOBIN [id number] 00:00:00 Test Item Value Reference Range Interpretation Comments HEMOGLOBIN A1c (test code = 48263) 7.3 % HEMOGLOBIN [id number] 00:00:00 Test Item Value Reference Range Interpretation Comments HEMOGLOBIN A1c (test code = 10238) 7.3 % LIPID [id number] 00:00:00 Test Item Value Reference Range Interpretation Comments CHOLESTEROL (test code = 2210) 230 MG/DL TRIGLYCERIDES (test code = 2232) 455 MG/DL HDL CHOLESTEROL (test code = 35 MG/DL 2219) CALC LDL CHOL (test code = 2237) (NOTE) MG/DL RISK RATIO LDL/HDL (test code = 3.83 RATIO 2238) LIPID [id number] 00:00:00 Test Item Value Reference Range Interpretation Comments CHOLESTEROL (test code = 2210) 230 MG/DL TRIGLYCERIDES (test code = 2232) 455 MG/DL HDL CHOLESTEROL (test code = 35 MG/DL 2220) CALC LDL CHOL (test code = 2237) (NOTE) MG/DL RISK RATIO LDL/HDL (test code = 3.83 RATIO 2238) COMPREHENSIVE METABOLIC [id number] 00:00:00 Test Item Value Reference Range Interpretation Comments GLUCOSE (test code = 2217) 87 MG/DL BUN (test code = 2208) 19 MG/DL CREATININE (test code = 2214) 1.31 MG/DL eGFR (2020 CKD-EPI) (test code 51 ML/MIN/1.73 = 27699) CALC BUN/CREAT (test code = 15 RATIO 2235) SODIUM (test code = 2231) 142 MEQ/L POTASSIUM (test code = 2228) 3.8 MEQ/L CHLORIDE (test code = 2215) 106 MEQ/L CARBON DIOXIDE (test code = 24 MEQ/L 220) CALCIUM (test code = 2209) 9.1 MG/DL PROTEIN, TOTAL (test code = 7.2 G/DL 2228) ALBUMIN (test code = 2201) 3.8 G/DL CALC GLOBULIN (test code = 3.4 G/DL 2240) CALC A/G RATIO (test code = 1.1 RATIO 2234) BILIRUBIN, TOTAL (test code = <0.2 MG/DL 2206) ALKALINE PHOSPHATASE (test 105 U/L code = 2204) AST (test code = 2218) 19 U/L ALT (test code = 2219) 13 U/L COMPREHENSIVE METABOLIC [id number] 00:00:00 Test Item Value Reference Range Interpretation Comments GLUCOSE (test code = 2217) 87 MG/DL BUN (test code = 2208) 19 MG/DL CREATININE (test code = 2214) 1.31 MG/DL eGFR (2020 CKD-EPI) (test code 51 ML/MIN/1.73 = 39000) CALC BUN/CREAT (test code = 15 RATIO 2235) SODIUM (test code = 2231) 142 MEQ/L POTASSIUM (test code = 2228) 3.8 MEQ/L CHLORIDE (test code = 2215) 106 MEQ/L CARBON DIOXIDE (test code = 24 MEQ/L 220) CALCIUM (test code = 2209) 9.1 MG/DL PROTEIN, TOTAL (test code = 7.2 G/DL 2228) ALBUMIN (test code = 2201) 3.8 G/DL CALC GLOBULIN (test code = 3.4 G/DL 2240) CALC A/G RATIO (test code = 1.1 RATIO 2234) BILIRUBIN, TOTAL (test code = <0.2 MG/DL 2206) ALKALINE PHOSPHATASE (test 105 U/L code = 2204) AST (test code = 2218) 19 U/L ALT (test code = 2219) 13 U/L HEMOGLOBIN [id number] 00:00:00 Test Item Value Reference Range Interpretation Comments HEMOGLOBIN A1c (test code = 60643) 7.2 % HEMOGLOBIN [id number] 00:00:00 Test Item Value Reference Range Interpretation Comments HEMOGLOBIN A1c (test code = 61061) 7.2 % LIPID [id number] 00:00:00 Test Item Value Reference Range Interpretation Comments CHOLESTEROL (test code = 2210) 250 MG/DL TRIGLYCERIDES (test code = 2232) 312 MG/DL HDL CHOLESTEROL (test code = 2220) 41 MG/DL CALC LDL CHOL (test code = 2237) 161 MG/DL RISK RATIO LDL/HDL (test code = 3.93 RATIO 2238) LIPID [id number] 00:00:00 Test Item Value Reference Range Interpretation Comments CHOLESTEROL (test code = 2210) 250 MG/DL TRIGLYCERIDES (test code = 2232) 312 MG/DL HDL CHOLESTEROL (test code = 2220) 41 MG/DL CALC LDL CHOL (test code = 2237) 161 MG/DL RISK RATIO LDL/HDL (test code = 3.93 RATIO 2238) COMPREHENSIVE METABOLIC [id number] 00:00:00 Test Item Value Reference Range Interpretation Comments GLUCOSE (test code = 2217) 147 MG/DL BUN (test code = 2208) 23 MG/DL CREATININE (test code = 2214) 1.27 MG/DL eGFR AMER. (test code 59 ML/MIN/1.73 = 98005) eGFR NON- AMER. (test 51 ML/MIN/1.73 code = 60912) CALC BUN/CREAT (test code = 18 RATIO 2235) SODIUM (test code = 2231) 141 MEQ/L POTASSIUM (test code = 2228) 4.7 MEQ/L CHLORIDE (test code = 2215) 106 MEQ/L CARBON DIOXIDE (test code = 26 MEQ/L 2205) CALCIUM (test code = 2209) 9.1 MG/DL PROTEIN, TOTAL (test code = 7.4 G/DL 2228) ALBUMIN (test code = 2201) 3.8 G/DL CALC GLOBULIN (test code = 3.6 G/DL 2240) CALC A/G RATIO (test code = 1.1 RATIO 2234) BILIRUBIN, TOTAL (test code = <0.2 MG/DL 2206) ALKALINE PHOSPHATASE (test 92 U/L code = 2204) AST (test code = 2218) 18 U/L ALT (test code = 2219) 11 U/L COMPREHENSIVE METABOLIC [id number] 00:00:00 Test Item Value Reference Range Interpretation Comments GLUCOSE (test code = 2217) 147 MG/DL BUN (test code = 2208) 23 MG/DL CREATININE (test code = 2214) 1.27 MG/DL eGFR AMER. (test code 59 ML/MIN/1.73 = 39016) eGFR NON- AMER. (test 51 ML/MIN/1.73 code = 26055) CALC BUN/CREAT (test code = 18 RATIO 2235) SODIUM (test code = 2231) 141 MEQ/L POTASSIUM (test code = 2228) 4.7 MEQ/L CHLORIDE (test code = 2215) 106 MEQ/L CARBON DIOXIDE (test code = 26 MEQ/L 2205) CALCIUM (test code = 2209) 9.1 MG/DL PROTEIN, TOTAL (test code = 7.4 G/DL 2228) ALBUMIN (test code = 2201) 3.8 G/DL CALC GLOBULIN (test code = 3.6 G/DL 2240) CALC A/G RATIO (test code = 1.1 RATIO 2234) BILIRUBIN, TOTAL (test code = <0.2 MG/DL 2206) ALKALINE PHOSPHATASE (test 92 U/L code = 2204) AST (test code = 2218) 18 U/L ALT (test code = 2219) 11 U/L HEMOGLOBIN [id number] 00:00:00 Test Item Value Reference Range Interpretation Comments HEMOGLOBIN A1c (test code = 17368) 7.2 % HEMOGLOBIN [id number] 00:00:00 Test Item Value Reference Range Interpretation Comments HEMOGLOBIN A1c (test code = 42406) 7.2 % HEMOGLOBIN [id number] 00:00:00 Test Item Value Reference Range Interpretation Comments HEMOGLOBIN A1c (test code = 25280) 7.2 % LIPID [id number] 00:00:00 Test Item Value Reference Range Interpretation Comments CHOLESTEROL (test code = 2210) 250 MG/DL TRIGLYCERIDES (test code = 2232) 312 MG/DL HDL CHOLESTEROL (test code = 2220) 41 MG/DL CALC LDL CHOL (test code = 2237) 161 MG/DL RISK RATIO LDL/HDL (test code = 3.93 RATIO 2238) LIPID [id number] 00:00:00 Test Item Value Reference Range Interpretation Comments CHOLESTEROL (test code = 2210) 250 MG/DL TRIGLYCERIDES (test code = 2232) 312 MG/DL HDL CHOLESTEROL (test code = 2220) 41 MG/DL CALC LDL CHOL (test code = 2237) 161 MG/DL RISK RATIO LDL/HDL (test code = 3.93 RATIO 2238) COMPREHENSIVE METABOLIC [id number] 00:00:00 Test Item Value Reference Range Interpretation Comments GLUCOSE (test code = 2217) 147 MG/DL BUN (test code = 2208) 23 MG/DL CREATININE (test code = 2214) 1.27 MG/DL eGFR AMER. (test code 59 ML/MIN/1.73 = 61494) eGFR NON- AMER. (test 51 ML/MIN/1.73 code = 34382) CALC BUN/CREAT (test code = 18 RATIO 2235) SODIUM (test code = 2231) 141 MEQ/L POTASSIUM (test code = 2228) 4.7 MEQ/L CHLORIDE (test code = 2215) 106 MEQ/L CARBON DIOXIDE (test code = 26 MEQ/L 2205) CALCIUM (test code = 2209) 9.1 MG/DL PROTEIN, TOTAL (test code = 7.4 G/DL 2228) ALBUMIN (test code = 2201) 3.8 G/DL CALC GLOBULIN (test code = 3.6 G/DL 2240) CALC A/G RATIO (test code = 1.1 RATIO 2234) BILIRUBIN, TOTAL (test code = <0.2 MG/DL 2206) ALKALINE PHOSPHATASE (test 92 U/L code = 2204) AST (test code = 2218) 18 U/L ALT (test code = 2219) 11 U/L COMPREHENSIVE METABOLIC [id number] 00:00:00 Test Item Value Reference Range Interpretation Comments GLUCOSE (test code = 2217) 147 MG/DL BUN (test code = 2208) 23 MG/DL CREATININE (test code = 2214) 1.27 MG/DL eGFR AMER. (test code 59 ML/MIN/1.73 = 24027) eGFR NON- AMER. (test 51 ML/MIN/1.73 code = 01055) CALC BUN/CREAT (test code = 18 RATIO 2235) SODIUM (test code = 2231) 141 MEQ/L POTASSIUM (test code = 2228) 4.7 MEQ/L CHLORIDE (test code = 2215) 106 MEQ/L CARBON DIOXIDE (test code = 26 MEQ/L 2205) CALCIUM (test code = 2209) 9.1 MG/DL PROTEIN, TOTAL (test code = 7.4 G/DL 2228) ALBUMIN (test code = 2201) 3.8 G/DL CALC GLOBULIN (test code = 3.6 G/DL 2239) CALC A/G RATIO (test code = 1.1 RATIO 2233) BILIRUBIN, TOTAL (test code = <0.2 MG/DL 2206) ALKALINE PHOSPHATASE (test 92 U/L code = 2204) AST (test code = 2218) 18 U/L ALT (test code = 2219) 11 U/L HEMOGLOBIN [id number] 00:00:00 Test Item Value Reference Range Interpretation Comments HEMOGLOBIN A1c (test code = 88908) 7.2 % PAP TEST, THINPREP, [id number] 00:00:00 Test Item Value Reference Range Interpretation Comments SOURCE: (test code = Endocervical 8001) SLIDES: (test code = 1 8011) LMP: (test code = 06/27/2020 8021) SPECIMEN ADEQUACY: (NOTE) (test code = 31285) INTERPRETATION: (test NILM/NO EPITH. code = 33256) ABNORMALITY;SEE BELOW MEDICAL TECHNICIAN ASSISTANT: Gudelia Pino, (test code = 8101) CT(ASCP) QC TECHNOLOGIST: Justice Jordan (test code = 8111) UbaldoSCT(ASCP)IAC LOCATION: (test code (NOTE) = 90357) CPT: (test code = (NOTE) 8140) PAP TEST, THINPREP, [id number] 00:00:00 Test Item Value Reference Range Interpretation Comments SOURCE: (test code = Endocervical 8001) SLIDES: (test code = 1 8011) LMP: (test code = 06/27/2020 8021) SPECIMEN ADEQUACY: (NOTE) (test code = 16085) INTERPRETATION: (test NILM/NO EPITH. code = 27776) ABNORMALITY;SEE BELOW MEDICAL TECHNICIAN ASSISTANT: Gudelia Pino, (test code = 8101) CT(ASCP) QC TECHNOLOGIST: Jsutice Jordan (test code = 8111) Rice,SCT(ASCP)IAC LOCATION: (test code (NOTE) = 81419) CPT: (test code = (NOTE) 8140) PAP TEST, THINPREP, [id number] 00:00:00 Test Item Value Reference Range Interpretation Comments SOURCE: (test code = Endocervical 800) SLIDES: (test code = 1 801) LMP: (test code = 06/27/2020 8021) SPECIMEN ADEQUACY: (NOTE) (test code = 74439) INTERPRETATION: (test NILM/NO EPITH. code = 71798) ABNORMALITY;SEE BELOW MEDICAL TECHNICIAN ASSISTANT: Gudelia Pino (test code = 8101) CT(ASCP) QC TECHNOLOGIST: Justice Jordan (test code = 8111) Ubaldo,SCT(ASCP)IAC LOCATION: (test code (NOTE) = 36226) CPT: (test code = (NOTE) 8140) PAP TEST, THINPREP, [id number] 00:00:00 Test Item Value Reference Range Interpretation Comments SOURCE: (test code = Endocervical 800) SLIDES: (test code = 1 801) LMP: (test code = 06/27/2020 8021) SPECIMEN ADEQUACY: (NOTE) (test code = 57086) INTERPRETATION: (test NILM/NO EPITH. code = 68205) ABNORMALITY;SEE BELOW MEDICAL TECHNICIAN ASSISTANT: Gudelia Pino (test code = 8101) CT(ASCP) QC TECHNOLOGIST: Justice Jordan (test code = 8111) Ubaldo,SCT(ASCP)IAC LOCATION: (test code (NOTE) = 41118) CPT: (test code = (NOTE) 8140) CULTURE, [id number] 00:00:00 Test Item Value Reference Range Interpretation Comments CULTURE, URINE (test SPECIMEN NUMBER: code = 05140) [id number] CULTURE, [id number] 00:00:00 Test Item Value Reference Range Interpretation Comments CULTURE, URINE (test SPECIMEN NUMBER: code = 16403) [id number] CULTURE, [id number] 00:00:00 Test Item Value Reference Range Interpretation Comments CULTURE, URINE (test SPECIMEN NUMBER: code = 50689) [id number] CULTURE, [id number] 00:00:00 Test Item Value Reference Range Interpretation Comments CULTURE, URINE (test SPECIMEN NUMBER: code = 76118) [id number] HPV HIGH RISK WITH GENOTYPE, [id number] 00:00:00 Test Item Value Reference Range Interpretation Comments HPV HIGH RISK INTERP (test code = POSITIVE 56817) HPV 16 (test code = 74047) NEGATIVE HPV 18 (test code = 39555) NEGATIVE HPV, HR, OTHER GENOTYPES (test code POSITIVE = 40776) HPV HIGH RISK WITH GENOTYPE, [id number] 00:00:00 Test Item Value Reference Range Interpretation Comments HPV HIGH RISK INTERP (test code = POSITIVE 56672) HPV 16 (test code = 60931) NEGATIVE HPV 18 (test code = 06801) NEGATIVE HPV, HR, OTHER GENOTYPES (test code POSITIVE = 27017) HPV HIGH RISK WITH GENOTYPE, [id number] 00:00:00 Test Item Value Reference Range Interpretation Comments HPV HIGH RISK INTERP (test code = POSITIVE 08975) HPV 16 (test code = 20013) NEGATIVE HPV 18 (test code = 07791) NEGATIVE HPV, HR, OTHER GENOTYPES (test code POSITIVE = 27007) HPV HIGH RISK WITH GENOTYPE, [id number] 00:00:00 Test Item Value Reference Range Interpretation Comments HPV HIGH RISK INTERP (test code = POSITIVE 36276) HPV 16 (test code = 23606) NEGATIVE HPV 18 (test code = 51251) NEGATIVE HPV, HR, OTHER GENOTYPES (test code POSITIVE = 27295) VITAMIN D, 25 [id number] 00:00:00 Test Item Value Reference Range Interpretation Comments VITAMIN D, 25 OH (test TEST NOT PERFORMED code = 4958) NG/ML VITAMIN D, 25 [id number] 00:00:00 Test Item Value Reference Range Interpretation Comments VITAMIN D, 25 OH (test TEST NOT PERFORMED code = 4958) NG/ML VITAMIN D, 25 [id number] 00:00:00 Test Item Value Reference Range Interpretation Comments VITAMIN D, 25 OH (test TEST NOT PERFORMED code = 4958) NG/ML VITAMIN D, 25 [id number] 00:00:00 Test Item Value Reference Range Interpretation Comments VITAMIN D, 25 OH (test TEST NOT PERFORMED code = 4958) NG/ML CBC W/AUTO [id number] 00:00:00 Test Item Value Reference Range Interpretation Comments WBC (test code = 1001) 10.8 K/UL RBC (test code = 1002) 3.79 M/UL HEMOGLOBIN (test code = 1003) 11.2 G/DL HEMATOCRIT (test code = 1004) 33.6 % MCV (test code = 1005) 88.7 fL MCH (test code = 1006) 29.6 PG MCHC (test code = 1007) 33.3 G/DL RDW (test code = 1038) 13.0 % NEUTROPHILS (test code = 1008) 64.5 % LYMPHOCYTES (test code = 1010) 27.4 % MONOCYTES (test code = 1011) 6.7 % EOSINOPHILS (test code = 1012) 0.8 % BASOPHILS (test code = 1013) 0.3 % IMMATURE GRANULOCYTES (test 0.3 % code = 1036) NUCLEATED RBCS (test code = 0.0 /100WBC'S 1065) PLATELET COUNT (test code = 629 K/UL 1015) ABSOLUTE NEUTROPHILS (test code 6.95 K/UL = 1066) ABSOLUTE LYMPHOCYTES (test code 2.95 K/UL = 1067) ABSOLUTE MONOCYTES (test code = 0.72 K/UL 1068) ABSOLUTE EOSINOPHILS (test code 0.09 K/UL = 1040) ABSOLUTE BASOPHILS (test code = 0.03 K/UL 1069) ABS IMMATURE GRANULOCYTES (test 0.03 K/UL code = 1020) ABS NUCLEATED RBCS (test code = 0.00 K/UL 34168) CBC W/AUTO [id number] 00:00:00 Test Item Value Reference Range Interpretation Comments WBC (test code = 1001) 10.8 K/UL RBC (test code = 1002) 3.79 M/UL HEMOGLOBIN (test code = 1003) 11.2 G/DL HEMATOCRIT (test code = 1004) 33.6 % MCV (test code = 1005) 88.7 fL MCH (test code = 1006) 29.6 PG MCHC (test code = 1007) 33.3 G/DL RDW (test code = 1038) 13.0 % NEUTROPHILS (test code = 1008) 64.5 % LYMPHOCYTES (test code = 1010) 27.4 % MONOCYTES (test code = 1011) 6.7 % EOSINOPHILS (test code = 1012) 0.8 % BASOPHILS (test code = 1013) 0.3 % IMMATURE GRANULOCYTES (test 0.3 % code = 1036) NUCLEATED RBCS (test code = 0.0 /100WBC'S 1065) PLATELET COUNT (test code = 629 K/UL 1015) ABSOLUTE NEUTROPHILS (test code 6.95 K/UL = 1066) ABSOLUTE LYMPHOCYTES (test code 2.95 K/UL = 1067) ABSOLUTE MONOCYTES (test code = 0.72 K/UL 1068) ABSOLUTE EOSINOPHILS (test code 0.09 K/UL = 1040) ABSOLUTE BASOPHILS (test code = 0.03 K/UL 1069) ABS IMMATURE GRANULOCYTES (test 0.03 K/UL code = 1020) ABS NUCLEATED RBCS (test code = 0.00 K/UL 29333) CBC W/AUTO [id number] 00:00:00 Test Item Value Reference Range Interpretation Comments WBC (test code = 1001) 10.8 K/UL RBC (test code = 1002) 3.79 M/UL HEMOGLOBIN (test code = 1003) 11.2 G/DL HEMATOCRIT (test code = 1004) 33.6 % MCV (test code = 1005) 88.7 fL MCH (test code = 1006) 29.6 PG MCHC (test code = 1007) 33.3 G/DL RDW (test code = 1038) 13.0 % NEUTROPHILS (test code = 1008) 64.5 % LYMPHOCYTES (test code = 1010) 27.4 % MONOCYTES (test code = 1011) 6.7 % EOSINOPHILS (test code = 1012) 0.8 % BASOPHILS (test code = 1013) 0.3 % IMMATURE GRANULOCYTES (test 0.3 % code = 1036) NUCLEATED RBCS (test code = 0.0 /100WBC'S 1065) PLATELET COUNT (test code = 629 K/UL 1015) ABSOLUTE NEUTROPHILS (test code 6.95 K/UL = 1066) ABSOLUTE LYMPHOCYTES (test code 2.95 K/UL = 1067) ABSOLUTE MONOCYTES (test code = 0.72 K/UL 1068) ABSOLUTE EOSINOPHILS (test code 0.09 K/UL = 1040) ABSOLUTE BASOPHILS (test code = 0.03 K/UL 1069) ABS IMMATURE GRANULOCYTES (test 0.03 K/UL code = 1020) ABS NUCLEATED RBCS (test code = 0.00 K/UL 18561) CBC W/AUTO [id number] 00:00:00 Test Item Value Reference Range Interpretation Comments WBC (test code = 1001) 10.8 K/UL RBC (test code = 1002) 3.79 M/UL HEMOGLOBIN (test code = 1003) 11.2 G/DL HEMATOCRIT (test code = 1004) 33.6 % MCV (test code = 1005) 88.7 fL MCH (test code = 1006) 29.6 PG MCHC (test code = 1007) 33.3 G/DL RDW (test code = 1038) 13.0 % NEUTROPHILS (test code = 1008) 64.5 % LYMPHOCYTES (test code = 1010) 27.4 % MONOCYTES (test code = 1011) 6.7 % EOSINOPHILS (test code = 1012) 0.8 % BASOPHILS (test code = 1013) 0.3 % IMMATURE GRANULOCYTES (test 0.3 % code = 1036) NUCLEATED RBCS (test code = 0.0 /100WBC'S 1065) PLATELET COUNT (test code = 629 K/UL 1015) ABSOLUTE NEUTROPHILS (test code 6.95 K/UL = 1066) ABSOLUTE LYMPHOCYTES (test code 2.95 K/UL = 1067) ABSOLUTE MONOCYTES (test code = 0.72 K/UL 1068) ABSOLUTE EOSINOPHILS (test code 0.09 K/UL = 1040) ABSOLUTE BASOPHILS (test code = 0.03 K/UL 1069) ABS IMMATURE GRANULOCYTES (test 0.03 K/UL code = 1020) ABS NUCLEATED RBCS (test code = 0.00 K/UL 18227) CBC W/AUTO [id number] 00:00:00 Test Item Value Reference Range Interpretation Comments WBC (test code = 1001) 10.8 K/UL RBC (test code = 1002) 3.79 M/UL HEMOGLOBIN (test code = 1003) 11.2 G/DL HEMATOCRIT (test code = 1004) 33.6 % MCV (test code = 1005) 88.7 fL MCH (test code = 1006) 29.6 PG MCHC (test code = 1007) 33.3 G/DL RDW (test code = 1038) 13.0 % NEUTROPHILS (test code = 1008) 64.5 % LYMPHOCYTES (test code = 1010) 27.4 % MONOCYTES (test code = 1011) 6.7 % EOSINOPHILS (test code = 1012) 0.8 % BASOPHILS (test code = 1013) 0.3 % IMMATURE GRANULOCYTES (test 0.3 % code = 1036) NUCLEATED RBCS (test code = 0.0 /100WBC'S 1065) PLATELET COUNT (test code = 629 K/UL 1015) ABSOLUTE NEUTROPHILS (test code 6.95 K/UL = 1066) ABSOLUTE LYMPHOCYTES (test code 2.95 K/UL = 1067) ABSOLUTE MONOCYTES (test code = 0.72 K/UL 1068) ABSOLUTE EOSINOPHILS (test code 0.09 K/UL = 1040) ABSOLUTE BASOPHILS (test code = 0.03 K/UL 1069) ABS IMMATURE GRANULOCYTES (test 0.03 K/UL code = 1020) ABS NUCLEATED RBCS (test code = 0.00 K/UL 26994) CBC W/AUTO [id number] 00:00:00 Test Item Value Reference Range Interpretation Comments WBC (test code = 1001) 10.8 K/UL RBC (test code = 1002) 3.79 M/UL HEMOGLOBIN (test code = 1003) 11.2 G/DL HEMATOCRIT (test code = 1004) 33.6 % MCV (test code = 1005) 88.7 fL MCH (test code = 1006) 29.6 PG MCHC (test code = 1007) 33.3 G/DL RDW (test code = 1038) 13.0 % NEUTROPHILS (test code = 1008) 64.5 % LYMPHOCYTES (test code = 1010) 27.4 % MONOCYTES (test code = 1011) 6.7 % EOSINOPHILS (test code = 1012) 0.8 % BASOPHILS (test code = 1013) 0.3 % IMMATURE GRANULOCYTES (test 0.3 % code = 1036) NUCLEATED RBCS (test code = 0.0 /100WBC'S 1065) PLATELET COUNT (test code = 629 K/UL 1015) ABSOLUTE NEUTROPHILS (test code 6.95 K/UL = 1066) ABSOLUTE LYMPHOCYTES (test code 2.95 K/UL = 1067) ABSOLUTE MONOCYTES (test code = 0.72 K/UL 1068) ABSOLUTE EOSINOPHILS (test code 0.09 K/UL = 1040) ABSOLUTE BASOPHILS (test code = 0.03 K/UL 1069) ABS IMMATURE GRANULOCYTES (test 0.03 K/UL code = 1020) ABS NUCLEATED RBCS (test code = 0.00 K/UL 88247) HEMOGLOBIN [id number] 00:00:00 Test Item Value Reference Range Interpretation Comments HEMOGLOBIN A1c (test code = 46961) 11.5 % HEMOGLOBIN [id number] 00:00:00 Test Item Value Reference Range Interpretation Comments HEMOGLOBIN A1c (test code = 12535) 11.5 % HEMOGLOBIN [id number] 00:00:00 Test Item Value Reference Range Interpretation Comments HEMOGLOBIN A1c (test code = 20377) 11.5 % LIPID [id number] 00:00:00 Test Item Value Reference Range Interpretation Comments CHOLESTEROL (test code = 2210) 260 MG/DL TRIGLYCERIDES (test code = 2232) 353 MG/DL HDL CHOLESTEROL (test code = 2220) 40 MG/DL CALC LDL CHOL (test code = 2237) 160 MG/DL RISK RATIO LDL/HDL (test code = 4.00 RATIO 2238) LIPID [id number] 00:00:00 Test Item Value Reference Range Interpretation Comments CHOLESTEROL (test code = 2210) 260 MG/DL TRIGLYCERIDES (test code = 2232) 353 MG/DL HDL CHOLESTEROL (test code = 2220) 40 MG/DL CALC LDL CHOL (test code = 2237) 160 MG/DL RISK RATIO LDL/HDL (test code = 4.00 RATIO 2238) COMPREHENSIVE METABOLIC [id number] 00:00:00 Test Item Value Reference Range Interpretation Comments GLUCOSE (test code = 2217) 300 MG/DL BUN (test code = 2208) 23 MG/DL CREATININE (test code = 2214) 1.24 MG/DL eGFR AMER. (test code 60 ML/MIN/1.73 = 72397) eGFR NON- AMER. (test 52 ML/MIN/1.73 code = 50229) CALC BUN/CREAT (test code = 19 RATIO 2235) SODIUM (test code = 2231) 140 MEQ/L POTASSIUM (test code = 2228) 4.3 MEQ/L CHLORIDE (test code = 2215) 104 MEQ/L CARBON DIOXIDE (test code = 26 MEQ/L 2206) CALCIUM (test code = 2209) 9.1 MG/DL PROTEIN, TOTAL (test code = 7.5 G/DL 2228) ALBUMIN (test code = 2201) 3.7 G/DL CALC GLOBULIN (test code = 3.8 G/DL 2240) CALC A/G RATIO (test code = 1.0 RATIO 2234) BILIRUBIN, TOTAL (test code = <0.2 MG/DL 2206) ALKALINE PHOSPHATASE (test 114 U/L code = 2204) AST (test code = 2218) 12 U/L ALT (test code = 2219) 12 U/L COMPREHENSIVE METABOLIC [id number] 00:00:00 Test Item Value Reference Range Interpretation Comments GLUCOSE (test code = 2217) 300 MG/DL BUN (test code = 2208) 23 MG/DL CREATININE (test code = 2214) 1.24 MG/DL eGFR AMER. (test code 60 ML/MIN/1.73 = 14574) eGFR NON- AMER. (test 52 ML/MIN/1.73 code = 04882) CALC BUN/CREAT (test code = 19 RATIO 2235) SODIUM (test code = 2231) 140 MEQ/L POTASSIUM (test code = 2228) 4.3 MEQ/L CHLORIDE (test code = 2215) 104 MEQ/L CARBON DIOXIDE (test code = 26 MEQ/L 220) CALCIUM (test code = 2209) 9.1 MG/DL PROTEIN, TOTAL (test code = 7.5 G/DL 2228) ALBUMIN (test code = 2201) 3.7 G/DL CALC GLOBULIN (test code = 3.8 G/DL 2240) CALC A/G RATIO (test code = 1.0 RATIO 2234) BILIRUBIN, TOTAL (test code = <0.2 MG/DL 2206) ALKALINE PHOSPHATASE (test 114 U/L code = 2204) AST (test code = 2218) 12 U/L ALT (test code = 2219) 12 U/L [id number] 00:00:00 Test Item Value Reference Range Interpretation Comments TSH, THIRD GENERATION (test code 6.280 UIU/ML = 2821) [id number] 00:00:00 Test Item Value Reference Range Interpretation Comments TSH, THIRD GENERATION (test code 6.280 UIU/ML = 2821) [id number] 00:00:00 Test Item Value Reference Range Interpretation Comments TSH, THIRD GENERATION (test code 6.280 UIU/ML = 2821) HEMOGLOBIN [id number] 00:00:00 Test Item Value Reference Range Interpretation Comments HEMOGLOBIN A1c (test code = 50680) 11.5 % HEMOGLOBIN [id number] 00:00:00 Test Item Value Reference Range Interpretation Comments HEMOGLOBIN A1c (test code = 86191) 11.5 % HEMOGLOBIN [id number] 00:00:00 Test Item Value Reference Range Interpretation Comments HEMOGLOBIN A1c (test code = 19882) 11.5 % LIPID [id number] 00:00:00 Test Item Value Reference Range Interpretation Comments CHOLESTEROL (test code = 2210) 260 MG/DL TRIGLYCERIDES (test code = 2232) 353 MG/DL HDL CHOLESTEROL (test code = 2220) 40 MG/DL CALC LDL CHOL (test code = 2237) 160 MG/DL RISK RATIO LDL/HDL (test code = 4.00 RATIO 2238) LIPID [id number] 00:00:00 Test Item Value Reference Range Interpretation Comments CHOLESTEROL (test code = 2210) 260 MG/DL TRIGLYCERIDES (test code = 2232) 353 MG/DL HDL CHOLESTEROL (test code = 2220) 40 MG/DL CALC LDL CHOL (test code = 2237) 160 MG/DL RISK RATIO LDL/HDL (test code = 4.00 RATIO 2238) COMPREHENSIVE METABOLIC [id number] 00:00:00 Test Item Value Reference Range Interpretation Comments GLUCOSE (test code = 2217) 300 MG/DL BUN (test code = 2208) 23 MG/DL CREATININE (test code = 2214) 1.24 MG/DL eGFR AMER. (test code 60 ML/MIN/1.73 = 98852) eGFR NON- AMER. (test 52 ML/MIN/1.73 code = 08163) CALC BUN/CREAT (test code = 19 RATIO 2235) SODIUM (test code = 2231) 140 MEQ/L POTASSIUM (test code = 2228) 4.3 MEQ/L CHLORIDE (test code = 2215) 104 MEQ/L CARBON DIOXIDE (test code = 26 MEQ/L 2205) CALCIUM (test code = 2209) 9.1 MG/DL PROTEIN, TOTAL (test code = 7.5 G/DL 2228) ALBUMIN (test code = 2201) 3.7 G/DL CALC GLOBULIN (test code = 3.8 G/DL 2240) CALC A/G RATIO (test code = 1.0 RATIO 2234) BILIRUBIN, TOTAL (test code = <0.2 MG/DL 2206) ALKALINE PHOSPHATASE (test 114 U/L code = 2204) AST (test code = 2218) 12 U/L ALT (test code = 2219) 12 U/L COMPREHENSIVE METABOLIC [id number] 00:00:00 Test Item Value Reference Range Interpretation Comments GLUCOSE (test code = 2217) 300 MG/DL BUN (test code = 2208) 23 MG/DL CREATININE (test code = 2214) 1.24 MG/DL eGFR AMER. (test code 60 ML/MIN/1.73 = 87069) eGFR NON- AMER. (test 52 ML/MIN/1.73 code = 54844) CALC BUN/CREAT (test code = 19 RATIO 2235) SODIUM (test code = 2231) 140 MEQ/L POTASSIUM (test code = 2228) 4.3 MEQ/L CHLORIDE (test code = 2215) 104 MEQ/L CARBON DIOXIDE (test code = 26 MEQ/L 2205) CALCIUM (test code = 2209) 9.1 MG/DL PROTEIN, TOTAL (test code = 7.5 G/DL 2228) ALBUMIN (test code = 2201) 3.7 G/DL CALC GLOBULIN (test code = 3.8 G/DL 2240) CALC A/G RATIO (test code = 1.0 RATIO 2234) BILIRUBIN, TOTAL (test code = <0.2 MG/DL 2206) ALKALINE PHOSPHATASE (test 114 U/L code = 2204) AST (test code = 2218) 12 U/L ALT (test code = 2219) 12 U/L [id number] 00:00:00 Test Item Value Reference Range Interpretation Comments TSH, THIRD GENERATION (test code 6.280 UIU/ML = 2821) [id number] 00:00:00 Test Item Value Reference Range Interpretation Comments TSH, THIRD GENERATION (test code 6.280 UIU/ML = 2821) [id number] 00:00:00 Test Item Value Reference Range Interpretation Comments TSH, THIRD GENERATION (test code 6.280 UIU/ML = 2821) HEMOGLOBIN [id number] 00:00:00 Test Item Value Reference Range Interpretation Comments HEMOGLOBIN A1c (test code = 42141) 12.3 % HEMOGLOBIN [id number] 00:00:00 Test Item Value Reference Range Interpretation Comments HEMOGLOBIN A1c (test code = 59647) 12.3 % HEMOGLOBIN [id number] 00:00:00 Test Item Value Reference Range Interpretation Comments HEMOGLOBIN A1c (test code = 48000) 12.3 % CBC W/AUTO [id number] 00:00:00 Test Item Value Reference Range Interpretation Comments WBC (test code = 1001) 7.9 K/UL RBC (test code = 1002) 4.11 M/UL HEMOGLOBIN (test code = 1003) 12.3 G/DL HEMATOCRIT (test code = 1004) 36.2 % MCV (test code = 1005) 88.1 fL MCH (test code = 1006) 29.9 PG MCHC (test code = 1007) 34.0 G/DL RDW (test code = 1038) 14.2 % NEUTROPHILS (test code = 1008) 52 % LYMPHOCYTES (test code = 1010) 38 % MONOCYTES (test code = 1011) 8 % EOSINOPHILS (test code = 1012) 1 % BASOPHILS (test code = 1013) % PLATELET COUNT (test code = 1015) 408 K/UL CBC W/AUTO [id number] 00:00:00 Test Item Value Reference Range Interpretation Comments WBC (test code = 1001) 7.9 K/UL RBC (test code = 1002) 4.11 M/UL HEMOGLOBIN (test code = 1003) 12.3 G/DL HEMATOCRIT (test code = 1004) 36.2 % MCV (test code = 1005) 88.1 fL MCH (test code = 1006) 29.9 PG MCHC (test code = 1007) 34.0 G/DL RDW (test code = 1038) 14.2 % NEUTROPHILS (test code = 1008) 52 % LYMPHOCYTES (test code = 1010) 38 % MONOCYTES (test code = 1011) 8 % EOSINOPHILS (test code = 1012) 1 % BASOPHILS (test code = 1013) % PLATELET COUNT (test code = 1015) 408 K/UL CBC W/AUTO [id number] 00:00:00 Test Item Value Reference Range Interpretation Comments WBC (test code = 1001) 7.9 K/UL RBC (test code = 1002) 4.11 M/UL HEMOGLOBIN (test code = 1003) 12.3 G/DL HEMATOCRIT (test code = 1004) 36.2 % MCV (test code = 1005) 88.1 fL MCH (test code = 1006) 29.9 PG MCHC (test code = 1007) 34.0 G/DL RDW (test code = 1038) 14.2 % NEUTROPHILS (test code = 1008) 52 % LYMPHOCYTES (test code = 1010) 38 % MONOCYTES (test code = 1011) 8 % EOSINOPHILS (test code = 1012) 1 % BASOPHILS (test code = 1013) % PLATELET COUNT (test code = 1015) 408 K/UL COMPREHENSIVE METABOLIC [id number] 00:00:00 Test Item Value Reference Range Interpretation Comments GLUCOSE (test code = 2217) 313 MG/DL BUN (test code = 2208) 15 MG/DL CREATININE (test code = 2214) 0.71 MG/DL eGFR AMER. (test code 123 ML/MIN/1.73 = 33576) eGFR NON- AMER. (test 106 ML/MIN/1.73 code = 54372) CALC BUN/CREAT (test code = 21 RATIO 2235) SODIUM (test code = 2231) 136 MEQ/L POTASSIUM (test code = 2228) 4.5 MEQ/L CHLORIDE (test code = 2215) 97 MEQ/L CARBON DIOXIDE (test code = 23 MEQ/L 220) CALCIUM (test code = 2209) 10.0 MG/DL PROTEIN, TOTAL (test code = 8.1 G/DL 2228) ALBUMIN (test code = 2201) 4.3 G/DL CALC GLOBULIN (test code = 3.8 G/DL 2240) CALC A/G RATIO (test code = 1.1 RATIO 223) BILIRUBIN, TOTAL (test code = 0.3 MG/DL 220) ALKALINE PHOSPHATASE (test 110 U/L code = 2204) AST (test code = 2218) 13 U/L ALT (test code = 2219) 11 U/L COMPREHENSIVE METABOLIC [id number] 00:00:00 Test Item Value Reference Range Interpretation Comments GLUCOSE (test code = 2217) 313 MG/DL BUN (test code = 2208) 15 MG/DL CREATININE (test code = 2214) 0.71 MG/DL eGFR AMER. (test code 123 ML/MIN/1.73 = 85564) eGFR NON- AMER. (test 106 ML/MIN/1.73 code = 74377) CALC BUN/CREAT (test code = 21 RATIO 2235) SODIUM (test code = 2231) 136 MEQ/L POTASSIUM (test code = 2228) 4.5 MEQ/L CHLORIDE (test code = 2215) 97 MEQ/L CARBON DIOXIDE (test code = 23 MEQ/L 2205) CALCIUM (test code = 2209) 10.0 MG/DL PROTEIN, TOTAL (test code = 8.1 G/DL 2228) ALBUMIN (test code = 2201) 4.3 G/DL CALC GLOBULIN (test code = 3.8 G/DL 0) CALC A/G RATIO (test code = 1.1 RATIO 4) BILIRUBIN, TOTAL (test code = 0.3 MG/DL 2206) ALKALINE PHOSPHATASE (test 110 U/L code = 2204) AST (test code = 2218) 13 U/L ALT (test code = 2219) 11 U/L LIPID [id number] 00:00:00 Test Item Value Reference Range Interpretation Comments CHOLESTEROL (test code = 2210) 244 MG/DL TRIGLYCERIDES (test code = 2232) 376 MG/DL HDL CHOLESTEROL (test code = 2220) 48 MG/DL CALC LDL CHOL (test code = 2237) 121 MG/DL RISK RATIO LDL/HDL (test code = 2.52 RATIO 2238) LIPID [id number] 00:00:00 Test Item Value Reference Range Interpretation Comments CHOLESTEROL (test code = 2210) 244 MG/DL TRIGLYCERIDES (test code = 2232) 376 MG/DL HDL CHOLESTEROL (test code = 2220) 48 MG/DL CALC LDL CHOL (test code = 2237) 121 MG/DL RISK RATIO LDL/HDL (test code = 2.52 RATIO 2238) THYROID II PROFILE (T3U, T4, T7, TSH)[id number] 00:00:00 Test Item Value Reference Range Interpretation Comments T3 UPTAKE (test code = 2817) 25.0 % T4 (THYROXINE) (test code = 2819) 5.7 UG/DL CALCULATED T7 (FTI) (test code = 1.43 2820) TSH (test code = 2821) 17.0 UIU/ML THYROID II PROFILE (T3U, T4, T7, TSH)2015-08-01 00:00:00 Test Item Value Reference Range Interpretation Comments T3 UPTAKE (test code = 2817) 25.0 % T4 (THYROXINE) (test code = 2819) 5.7 UG/DL CALCULATED T7 (FTI) (test code = 1.43 2820) TSH (test code = 2821) 17.0 UIU/ML HEMOGLOBIN [id number] 00:00:00 Test Item Value Reference Range Interpretation Comments HEMOGLOBIN A1c (test code = 19046) 12.3 % HEMOGLOBIN [id number] 00:00:00 Test Item Value Reference Range Interpretation Comments HEMOGLOBIN A1c (test code = 93352) 12.3 % HEMOGLOBIN [id number] 00:00:00 Test Item Value Reference Range Interpretation Comments HEMOGLOBIN A1c (test code = 59481) 12.3 % CBC W/AUTO [id number] 00:00:00 Test Item Value Reference Range Interpretation Comments WBC (test code = 1001) 7.9 K/UL RBC (test code = 1002) 4.11 M/UL HEMOGLOBIN (test code = 1003) 12.3 G/DL HEMATOCRIT (test code = 1004) 36.2 % MCV (test code = 1005) 88.1 fL MCH (test code = 1006) 29.9 PG MCHC (test code = 1007) 34.0 G/DL RDW (test code = 1038) 14.2 % NEUTROPHILS (test code = 1008) 52 % LYMPHOCYTES (test code = 1010) 38 % MONOCYTES (test code = 1011) 8 % EOSINOPHILS (test code = 1012) 1 % BASOPHILS (test code = 1013) % PLATELET COUNT (test code = 1015) 408 K/UL CBC W/AUTO [id number] 00:00:00 Test Item Value Reference Range Interpretation Comments WBC (test code = 1001) 7.9 K/UL RBC (test code = 1002) 4.11 M/UL HEMOGLOBIN (test code = 1003) 12.3 G/DL HEMATOCRIT (test code = 1004) 36.2 % MCV (test code = 1005) 88.1 fL MCH (test code = 1006) 29.9 PG MCHC (test code = 1007) 34.0 G/DL RDW (test code = 1038) 14.2 % NEUTROPHILS (test code = 1008) 52 % LYMPHOCYTES (test code = 1010) 38 % MONOCYTES (test code = 1011) 8 % EOSINOPHILS (test code = 1012) 1 % BASOPHILS (test code = 1013) % PLATELET COUNT (test code = 1015) 408 K/UL CBC W/AUTO [id number] 00:00:00 Test Item Value Reference Range Interpretation Comments WBC (test code = 1001) 7.9 K/UL RBC (test code = 1002) 4.11 M/UL HEMOGLOBIN (test code = 1003) 12.3 G/DL HEMATOCRIT (test code = 1004) 36.2 % MCV (test code = 1005) 88.1 fL MCH (test code = 1006) 29.9 PG MCHC (test code = 1007) 34.0 G/DL RDW (test code = 1038) 14.2 % NEUTROPHILS (test code = 1008) 52 % LYMPHOCYTES (test code = 1010) 38 % MONOCYTES (test code = 1011) 8 % EOSINOPHILS (test code = 1012) 1 % BASOPHILS (test code = 1013) % PLATELET COUNT (test code = 1015) 408 K/UL COMPREHENSIVE METABOLIC [id number] 00:00:00 Test Item Value Reference Range Interpretation Comments GLUCOSE (test code = 2217) 313 MG/DL BUN (test code = 2208) 15 MG/DL CREATININE (test code = 2214) 0.71 MG/DL eGFR AMER. (test code 123 ML/MIN/1.73 = 41023) eGFR NON- AMER. (test 106 ML/MIN/1.73 code = 07477) CALC BUN/CREAT (test code = 21 RATIO 2235) SODIUM (test code = 2231) 136 MEQ/L POTASSIUM (test code = 2228) 4.5 MEQ/L CHLORIDE (test code = 2215) 97 MEQ/L CARBON DIOXIDE (test code = 23 MEQ/L 220) CALCIUM (test code = 2209) 10.0 MG/DL PROTEIN, TOTAL (test code = 8.1 G/DL 222) ALBUMIN (test code = 2201) 4.3 G/DL CALC GLOBULIN (test code = 3.8 G/DL 2240) CALC A/G RATIO (test code = 1.1 RATIO 2234) BILIRUBIN, TOTAL (test code = 0.3 MG/DL 2206) ALKALINE PHOSPHATASE (test 110 U/L code = 2204) AST (test code = 2218) 13 U/L ALT (test code = 2219) 11 U/L COMPREHENSIVE METABOLIC [id number] 00:00:00 Test Item Value Reference Range Interpretation Comments GLUCOSE (test code = 2217) 313 MG/DL BUN (test code = 2208) 15 MG/DL CREATININE (test code = 2214) 0.71 MG/DL eGFR AMER. (test code 123 ML/MIN/1.73 = 91861) eGFR NON- AMER. (test 106 ML/MIN/1.73 code = 85986) CALC BUN/CREAT (test code = 21 RATIO 2235) SODIUM (test code = 2231) 136 MEQ/L POTASSIUM (test code = 2228) 4.5 MEQ/L CHLORIDE (test code = 2215) 97 MEQ/L CARBON DIOXIDE (test code = 23 MEQ/L 2205) CALCIUM (test code = 2209) 10.0 MG/DL PROTEIN, TOTAL (test code = 8.1 G/DL 2228) ALBUMIN (test code = 2201) 4.3 G/DL CALC GLOBULIN (test code = 3.8 G/DL 2240) CALC A/G RATIO (test code = 1.1 RATIO 2234) BILIRUBIN, TOTAL (test code = 0.3 MG/DL 7) ALKALINE PHOSPHATASE (test 110 U/L code = 2204) AST (test code = 2218) 13 U/L ALT (test code = 2219) 11 U/L LIPID [id number] 00:00:00 Test Item Value Reference Range Interpretation Comments CHOLESTEROL (test code = 2210) 244 MG/DL TRIGLYCERIDES (test code = 2232) 376 MG/DL HDL CHOLESTEROL (test code = 2220) 48 MG/DL CALC LDL CHOL (test code = 2237) 121 MG/DL RISK RATIO LDL/HDL (test code = 2.52 RATIO 2238) LIPID [id number] 00:00:00 Test Item Value Reference Range Interpretation Comments CHOLESTEROL (test code = 2210) 244 MG/DL TRIGLYCERIDES (test code = 2232) 376 MG/DL HDL CHOLESTEROL (test code = 2220) 48 MG/DL CALC LDL CHOL (test code = 2237) 121 MG/DL RISK RATIO LDL/HDL (test code = 2.52 RATIO 2238) THYROID II PROFILE (T3U, T4, T7, TSH)2015-08-01 00:00:00 Test Item Value Reference Range Interpretation Comments T3 UPTAKE (test code = 2817) 25.0 % T4 (THYROXINE) (test code = 2819) 5.7 UG/DL CALCULATED T7 (FTI) (test code = 1.43 1930) TSH (test code = 2821) 17.0 UIU/ML THYROID II PROFILE (T3U, T4, T7, TSH)2015-08-01 00:00:00 Test Item Value Reference Range Interpretation Comments T3 UPTAKE (test code = 2817) 25.0 % T4 (THYROXINE) (test code = 2819) 5.7 UG/DL CALCULATED T7 (FTI) (test code = 1.43 0930) TSH (test code = 2821) 17.0 UIU/ML
[2022-04-09] MEDS ORDERED: FAMOTIDINE 20 MG/2 ML VIAL IV ONE (15:04)
[2022-04-09] MEDS ORDERED: NA CHLORIDE 0.9% 1,000 ML ONE ×2 (15:04→17:15)
[2022-04-09] MEDS ORDERED: ONDANSETRON 4 MG/2 ML VIAL ONE ×2 (15:04→19:46)
[2022-04-09 15:16] LABS: Urine Blood 3+ (Negative); Urine Glucose 2+ (Negative); Urine Protein 3+ (Negative); Urine Specific Gravity 1.025 (1.005-1.030); Urine pH 5.5 (5.0-7.0)
[2022-04-09 15:23] LABS: Absolute Lymphocytes (CBC) 1.1 K/uL (0.7-4.9); Hematocrit 24.8 % (36.0-45.0); Lymphocytes % 9.9 % (15.3-44.8); MCV 83.7 fL (80-100); MPV 7.4 fL (7.6-11.3); RBC Red Blood Cell Count 2.96 M/uL (3.86-4.86)
[2022-04-09 15:54] LABS: Albumin 3.5 g/dL (3.4-5.0); Bilirubin Total 0.3 mg/dL (0.2-1.0); Protein, Total 8.9 g/dL (6.4-8.2)
--- NOTE | 2022-04-09 16:29 | RAD REPORT ---
EXAM DESCRIPTION: US - Abdomen Exam Limited - 04/09/2022 3:21 pm CLINICAL HISTORY: ABD PAIN COMPARISON: <Comparisons> FINDINGS: Sonographic grayscale and color flow images of the right upper quadrant were obtained. The gallbladder demonstrates numerous small layering echogenic shadowing gallstone. No pericholecysti c fluid or gallbladder wall thickening. The common bile duct is normal measuring 3 mm. The liver demonstrates no findings of intrahepatic biliary dilatation. IMPRESSION: Cholelithiasis. No sonographic findings to suggest acute cholecystitis.
[2022-04-09] MEDS ORDERED: PROMETHAZINE INJ 25 MG/ML AMP ONE (17:15)
--- NOTE | 2022-04-09 18:48 | ER ---
Nurse's Notes [facility] Name: Elsy Bradford Age: 47 yrs Sex: Female : 1975 Arrival Date: 04/09/2022 Time: 14:45 Bed 17 Private MD: Diagnosis: Acute kidney failure, unspecified;Anemia, unspecified;Other cholelithiasis without obstruction;Nausea with vomiting, unspecified Presentation: 04/09 14:50 Chief complaint: Patient states: epigastric pain and vomiting since last night, reports aa5 diarrhea. 14:50 Coronavirus screen: diarrhea, vomiting. Ebola Screen: Patient denies travel to an aa5 Ebola-affected area in the 21 days before illness onset. Initial Sepsis Screen: Does the patient meet any 2 criteria? No. Patient's initial sepsis screen is negative. Does the patient have a suspected source of infection? No. Patient's initial sepsis screen is negative. Risk Assessment: Do you want to hurt yourself or someone else? Patient reports no desire to harm self or others. Onset of symptoms was April 2022. 14:50 Method Of Arrival: Ambulatory aa5 14:50 Acuity: ALIN 3 aa5 Triage Assessment: 15:00 General: Appears distressed, uncomfortable, obese, Behavior is cooperative, appropriate bp for age, anxious. Pain: Complains of pain in abdomen. EENT: No deficits noted. Neuro: No deficits noted. Cardiovascular: No deficits noted. Respiratory: No deficits noted. GI: Reports upper abdominal pain, vomiting. : No signs and/or symptoms were reported regarding the genitourinary system. Derm: No deficits noted. Musculoskeletal: No deficits noted. 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 - Social history:: Smoking status: Reported history of juuling and/or vaping. Screenin:00 [facility] ED Fall Risk Assessment (Adult) History of falling in the last 3 months, bp including since admission No falls in past 3 months (0 pts). Abuse screen: Denies threats or abuse. Denies injuries from another. Nutritional screening: No deficits noted. Tuberculosis screening: No symptoms or risk factors identified. Assessment: 15:00 General: SEE TRIAGE NOTE. bp 15:58 Reassessment: PT RETURNED FROM U/S. bp 17:55 Reassessment: No changes from previously documented assessment. Patient and/or family bp updated on plan of care and expected duration. Pain level reassessed. 19:40 General: Appears comfortable, Behavior is calm, cooperative. Pain: Denies pain. Neuro: ha1 Level of Consciousness is awake, alert, obeys commands, Oriented to person, place, time, situation. Cardiovascular: Heart tones S1 S2 present Capillary refill < 3 seconds Patient's skin is warm and dry. Respiratory: Airway is patent Respiratory effort is even, unlabored, Respiratory pattern is regular, symmetrical. GI: Abdomen is round non-distended, Bowel sounds present X 4 quads. Abd is soft and non tender Reports nausea, vomiting. : No signs and/or symptoms were reported regarding the genitourinary system. EENT: No signs and/or symptoms were reported regarding the EENT system. Musculoskeletal: Circulation, motion, and sensation intact. Range of motion: intact in all extremities. 20:10 Reassessment: Patient and/or family updated on plan of care and expected duration. Pain ha1 level reassessed. Patient is alert, oriented x 3, equal unlabored respirations, skin warm/dry/pink. Patient states feeling better. Patient states symptoms have improved. 20:40 Reassessment: Patient and/or family updated on plan of care and expected duration. Pain ha1 level reassessed. Patient is alert, oriented x 3, equal unlabored respirations, skin warm/dry/pink. going to CT. 21:40 Reassessment: Patient and/or family updated on plan of care and expected duration. Pain ha1 level reassessed. Patient is alert, oriented x 3, equal unlabored respirations, skin warm/dry/pink. Patient states feeling better. Patient states symptoms have improved. Vital Signs: 14:50 BP 163 / 92; Pulse 99; Resp 20 S; Temp 99.6(O); Pulse Ox 100% on R/A; Weight 63.5 kg aa5 (R); Height 4 ft. 11 in. (149.86 cm) (R); 16:00 BP 144 / 65; Pulse 81; Resp 16; Pulse Ox 99% ; bp 17:56 BP 131 / 55; Pulse 84; Resp 16; Pulse Ox 99% ; bp 19:40 BP 140 / 73; Pulse 75; Resp 18 S; Temp 98.9(O); Pulse Ox 99% on R/A; ha1 20:40 BP 166 / 91; Pulse 92; Resp 19 S; Pulse Ox 98% on R/A; ha1 21:40 BP 134 / 65; Pulse 92; Resp 19 S; Pulse Ox 98% on R/A; ha1 14:50 Body Mass Index 28.27 (63.50 kg, 149.86 cm) aa5 ED Course: 14:45 Patient arrived in ED. mr 14:45 Anna Rosas FNP-C [facility]. kb 14:45 Rory Burdick MD is Attending Physician. kb 14:51 Arm band placed on. aa5 14:52 Triage completed. aa5 14:54 Miguel Ángel Rivera, RN is Primary Nurse. bp 15:00 Patient has correct armband on for positive identification. Bed in low position. Call bp light in reach. Side rails up X2. 15:10 Inserted saline lock: 20 gauge in right forearm, using aseptic technique. Blood bp collected. 15:23 Abdomen Limited US In Process Unspecified. EDMS 18:43 Osmar Burdick MD is Hospitalizing Provider. kb 19:13 Leo Martinez MD is Hospitalizing Provider. la1 19:39 Primary Nurse role handed off by Miguel Ángel Rivera, RN ha1 19:39 Alba Rocha, KARELY is Primary Nurse. ha1 19:46 SARS-COV-2 Antigen Rapid Sent. ha1 21:56 No provider procedures requiring assistance completed. IV discontinued, intact, ha1 bleeding controlled, No redness/swelling at site. Pressure dressing applied. Administered Medications: 15:10 Drug: NS 0.9% 1000 ml Route: IV; Rate: 1 bolus; Site: right forearm; bp 15:10 Drug: Pepcid (famotidine) 20 mg Route: IVP; Site: right forearm; bp 15:10 Drug: Zofran (Ondansetron) 4 mg Route: IVP; Site: right forearm; bp 17:14 Drug: Phenergan (promethazine) 25 mg Route: IM; Site: affected area; bp 17:14 Drug: NS 0.9% 1000 ml Route: IV; Rate: 1000 ml; Site: right antecubital; bp 19:35 Follow up: Response: No adverse reaction; IV Status: Completed infusion; IV Intake: ha1 1000ml 19:44 Drug: Zofran (Ondansetron) 4 mg Route: IVP; Site: right forearm; ha1 20:10 Follow up: Response: No adverse reaction; Nausea is decreased ha1 Medication: 21:57 VIS not applicable for this client. ha1 Intake: 19:35 IV: 1000ml; Total: 1000ml. ha1 Outcome: 18:47 Decision to Hospitalize by Provider. kb 21:56 Admitted to Med/surg accompanied by tech, family with patient, via wheelchair, room ha1 214, with chart. 21:56 Condition: stable 21:57 Patient left the ED. ha1 Signatures: Dispatcher [employer] EDMS Anna Rosas, TYLOR COLLINS-Heather De La O mr GutierrezMagdalena RN RN Vickey Newby FNP-C FNP-Miguel Ángel Benson, RN RN Alba Luke, KARELY RN ha1 Corrections: (The following items were deleted from the chart) 14:51 14:51 PMHx: "thyroid"; priya aaVlad 20:53 20:52 BP 140 / 73; Pulse 75bpm; Resp 18bpm; Spontaneous; Pulse Ox 99% RA; ha1 ha1
--- NOTE | 2022-04-09 18:48 | EDPHYS ---
Physician Documentation [facility] Name: Elsy Bradford Age: 47 yrs Sex: Female : 1975 Arrival Date: 04/09/2022 Time: 14:45 Bed 17 Private MD: ED Physician Rory Burdick HPI: 04/09 14:53 This 47 yrs old Female presents to ER via Ambulatory with complaints of kb Abdominal Pain, Vomiting. 14:53 The patient presents with abdominal pain in the upper abdomen. Onset: The kb symptoms/episode began/occurred last night. The symptoms do not radiate. Associated signs and symptoms: Pertinent positives: nausea, vomiting, and diarrhea, Pertinent negatives: fever. The symptoms are described as constant. Modifying factors: The symptoms are alleviated by nothing, the symptoms are aggravated by nothing. Severity of pain: At its worst the pain was moderate in the emergency department the pain is unchanged. The patient has not experienced similar symptoms in the past. The patient has not recently seen a physician. 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 - Social history:: Smoking status: Reported history of juuling and/or vaping. ROS: 14:52 Constitutional: Negative for fever, chills, and weight loss. kb 14:52 Abdomen/GI: Positive for abdominal pain, nausea, vomiting, and diarrhea. 14:52 All other systems are negative. Exam: 14:52 Constitutional: This is a well developed, well nourished patient who is awake, alert, kb and in no acute distress. Head/Face: Normocephalic, atraumatic. ENT: Moist Mucous membranes Cardiovascular: Regular rate and rhythm with a normal S1 and S2. No gallops, murmurs, or rubs. No pulse deficits. Respiratory: Respirations even and unlabored. No increased work of breathing. Talking in full sentences Skin: Warm, dry with normal turgor. Normal color. MS/ Extremity: Pulses equal, no cyanosis. Neurovascular intact. Full, normal range of motion. Neuro: Awake and alert, GCS 15, oriented to person, place, time, and situation. Moves all extremities. Normal gait. Psych: Awake, alert, with orientation to person, place and time. Behavior, mood, and affect are within normal limits. 14:52 Abdomen/GI: Inspection: abdomen appears normal, Bowel sounds: normal, Palpation: soft, in all quadrants, mild abdominal tenderness, in the epigastric area and right upper quadrant, moderate abdominal tenderness, in the left upper quadrant. 18:43 Abdomen/GI: Rectal exam: is unremarkable. kb Vital Signs: 14:50 BP 163 / 92; Pulse 99; Resp 20 S; Temp 99.6(O); Pulse Ox 100% on R/A; Weight 63.5 kg aa5 (R); Height 4 ft. 11 in. (149.86 cm) (R); 16:00 BP 144 / 65; Pulse 81; Resp 16; Pulse Ox 99% ; bp 17:56 BP 131 / 55; Pulse 84; Resp 16; Pulse Ox 99% ; bp 19:40 BP 140 / 73; Pulse 75; Resp 18 S; Temp 98.9(O); Pulse Ox 99% on R/A; ha1 20:40 BP 166 / 91; Pulse 92; Resp 19 S; Pulse Ox 98% on R/A; ha1 21:40 BP 134 / 65; Pulse 92; Resp 19 S; Pulse Ox 98% on R/A; ha1 14:50 Body Mass Index 28.27 (63.50 kg, 149.86 cm) aa5 MDM: 14:47 Patient medically screened. kb 16:22 Differential diagnosis: cholecystitis, Cholelithiasis, gastritis, non-specific abd kb pain, pancreatitis. Data reviewed: vital signs, nurses notes. 17:24 ED course: Patient is a 47-year-old female who presents for epigastric pain, vomiting kb and diarrhea that started yesterday. On exam patient has mild tenderness to epigastric area and left upper quadrant. Ultrasound reveals cholelithiasis without cholecystitis. Serum labs completed and reviewed. On reevaluation patient actively vomiting, Phenergan ordered.. 18:42 Consideration of Admission/Observation Patient was admitted/placed on observation. kb Management of patient was discussed with the following: Hospitalist: Vickey [facility] RADIO TECHNICIAN accepts pt for admission. Counseling: I had a detailed discussion with the patient and/or guardian regarding: the historical points, exam findings, and any diagnostic results supporting the discharge/admit diagnosis, lab results, radiology results, the need for further work-up and treatment in the hospital. 04/09 14:51 Order name: CBC with Diff; Complete Time: 15:28 kb 04/09 14:51 Order name: CMP; Complete Time: 16:05 kb 04/09 14:51 Order name: Lipase; Complete Time: 16:05 kb 04/09 14:51 Order name: Abdomen Limited US; Complete Time: 16:31 kb 04/09 14:51 Order name: IV Saline Lock; Complete Time: 15:11 kb 04/09 14:51 Order name: Labs collected and sent; Complete Time: 15:11 kb 04/09 14:51 Order name: Urine Dipstick-Ancillary (obtain specimen); Complete Time: 15:11 kb 04/09 15:16 Order name: Urine Dipstick-Ancillary; Complete Time: 15:19 EDMS 04/09 19:20 Order name: SARS-COV-2 Antigen Rapid 04/09 19:39 Order name: CT Abd/Pelvis - Without Contrast la1 04/09 20:04 Order name: SARS-COV-2 Antigen Rapid; Complete Time: 20:34 EDMS 04/09 21:42 Order name: CT; Complete Time: 22:14 EDMS Administered Medications: 15:10 Drug: NS 0.9% 1000 ml Route: IV; Rate: 1 bolus; Site: right forearm; bp 15:10 Drug: Pepcid (famotidine) 20 mg Route: IVP; Site: right forearm; bp 15:10 Drug: Zofran (Ondansetron) 4 mg Route: IVP; Site: right forearm; bp 17:14 Drug: Phenergan (promethazine) 25 mg Route: IM; Site: affected area; bp 17:14 Drug: NS 0.9% 1000 ml Route: IV; Rate: 1000 ml; Site: right antecubital; bp 19:35 Follow up: Response: No adverse reaction; IV Status: Completed infusion; IV Intake: ha1 1000ml 19:44 Drug: Zofran (Ondansetron) 4 mg Route: IVP; Site: right forearm; ha1 20:10 Follow up: Response: No adverse reaction; Nausea is decreased ha1 Disposition Summary: 04/09/22 18:47 Hospitalization Ordered Hospitalization Status: Observation kb Location: Telemetry/MedSurg (observation) kb Condition: Stable kb Problem: new kb Symptoms: are unchanged kb Bed/Room Type: Standard kb Provider: Leo Martinez(04/09/22 19:13) la1 Room Assignment: 214(04/09/22 20:23) Diagnosis - Acute kidney failure, unspecified kb - Anemia, unspecified kb - Other cholelithiasis without obstruction kb - Nausea with vomiting, unspecified kb Forms: - Medication Reconciliation Form kb - SBAR form kb Signatures: Dispatcher [employer] EDMS Anna Rosas, PIPPAC DENNIS-Magdalena Arriaga RN RN aa5 Vickey Powell FNP-Mary Jo COLLINS-Leticia Medina, RN RN Miguel Ángel Rivera, RN RN Alba Rocha RN RN ha1 Corrections: (The following items were deleted from the chart) 14:51 14:51 PMHx: "thyroid"; priya [email or web address] 19:13 18:47 Osmar Burdick kb ia1 20:23 18:47 kb
[2022-04-09 20:04] LABS: SARS-CoV-2 Antigen Rapid Res Negative (Negative)
--- NOTE | 2022-04-09 20:08 | P.HP ---
Certification for Inpatient Patient admitted to: Inpatient With expected LOS: >2 Midnights Patient will require the following post-hospital care: None Practitioner: I am a practitioner with admitting privileges, knowledge of patient current condition, hospital course, and medical plan of care. Services: Services provided to patient in accordance with Admission requirements found in Title 42 Section 412.3 of the Code of Federal Regulations <Vickey Powell - Last Filed: 04/09/22 20:05> Patient History Date of Service: 04/09/22 Reason for admission: ARF, vomiting History of Present Illness: 47-year-old female with history of diabetes mellitus type [id number], GERD, hypertension, hyperlipidemia, hypothyroidism presented to the emergency department with 24 hours of vomiting, diarrhea the day before. She was evaluated in the emergency department her labs were significant for a white blood cell count of 10.7 hemoglobin 8.2 hematocrit 24.8 platelet count 585 glucose 305 creatinine 2.07 BUN 36 GFR 29 urinalysis showed 3+ blood, 3+ protein 2+ glucose no nitrite or leukocyte present. She had an ultrasound of her right upper quadrant performed which revealed cholelithiasis without signs of cholecystitis. She still having persistent vomiting after multiple rounds of antiemetics in the emergency department also with acute kidney injury. She denies a known history of anemia, MCV is normal she denies any GI bleeding, melena or hematemesis she is currently on her menstrual cycle, reports that she does have very heavy cycles. Her hemoglobin is typically around 10-11. Additionally her baseline renal function appears to be around 1.2 but has been slowly climbing over the course of the last year. Will admit for SILKE, intractable vomiting. CT abdomen pelvis without contrast ordered after examining patient as she has lower abdominal tenderness on exam. 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 - Family History Sister -: Diabetes Mother -: Diabetes - Social History Smoking Status: Never smoker Alcohol use: No CD- Drugs: No Caffeine use: Yes Place of Residence: Home <Vickey Powell - Last Filed: 04/09/22 20:05> Date of Service: 04/10/22 <Leo Martinez - Last Filed: 04/10/22 06:39> Allergies hydrocodone Allergy (Verified 04/09/22 22:04) Nausea/Vomiting Home Medications: Aspirin Tab [Cuco Aspirin*] 325 mg PO DAILY 04/10/22 Furosemide 20 mg PO DAILY 04/10/22 Glipizide [Glucotrol Xl] 10 mg PO BID 04/10/22 Levothyroxine Sodium [Unithroid] 25 mcg PO BREAKFAST 04/10/22 Lisinopril [Zestril] 5 mg PO DAILY 04/10/22 Rosuvastatin Calcium [Crestor] 40 mg PO BEDTIME 04/10/22 Sitagliptin Phosphate [Januvia] 100 mg PO DAILY 04/10/22 Review of Systems 10-point ROS is otherwise unremarkable Gastrointestinal: Nausea, Vomiting, Abdominal Pain, Diarrhea <Vickey Powell - Last Filed: 04/09/22 20:05> Physical Examination - Physical Exam General: Alert, In no apparent distress, Oriented x3 HEENT: Atraumatic, PERRLA, Mucous membr. moist/pink, EOMI, Sclerae nonicteric Neck: Supple, 2+ carotid pulse no bruit, No LAD, Without JVD or thyroid abnormality Respiratory: Clear to auscultation bilaterally, Normal air movement Cardiovascular: Regular rate/rhythm, Normal S1 S2 Capillary refill: <2 Seconds Gastrointestinal: Normal bowel sounds, Tenderness (Left lower quadrant, suprapubic tenderness-mild) Musculoskeletal: No tenderness Integumentary: No rashes Neurological: Normal speech, Normal strength at 5/5 x4 extr, Normal tone, Normal affect - Studies Laboratory Data (last 24 hrs) 04/09/22 15:10: Sodium 138, Potassium 4.0, BUN 36 H, Creatinine 2.07 H, Glucose 305 H, Total Bilirubin 0.3, AST 21, ALT 20, Alkaline Phosphatase 103, Lipase 23 04/09/22 15:10: WBC 10.70, Hgb 8.2 L, Hct 24.8 L, Plt Count 585 H <Vickey Powell - Last Filed: 04/09/22 20:05> - Studies Laboratory Data (last 24 hrs) 04/09/22 15:10: Sodium 138, Potassium 4.0, BUN 36 H, Creatinine 2.07 H, Glucose 305 H, Total Bilirubin 0.3, AST 21, ALT 20, Alkaline Phosphatase 103, Lipase 04/09/22 15:10: WBC 10.70, Hgb 8.2 L, Hct 24.8 L, Plt Count 585 H <Leo Martinez - Last Filed: 04/10/22 06:39> Assessment and Plan - Plan Assessment: Intractable vomiting/abdominal pain Acute kidney injury Normocytic anemia Diabetes mellitus type [id number]-gioxkkrki with hyperglycemia Hypertension Hyperlipidemia GERD Plan: Intractable vomiting/abdominal pain N.p.o., IVF, as needed pain medications and antiemetics. Abdominal ultrasound showed cholelithiasis without cholecystitis, no right upper quadrant tenderness on exam. Patient does have left lower quadrant/suprapubic tenderness CT abdomen pelvis without contrast ordered for further evaluation. We will start antibiotics if indicated. Patient did eat a shrimp cocktail last night, family concerned this may be related to food poisoning. Acute kidney injury Continue IV fluids, renal ultrasound ordered and nephrology consult in place. Normocytic anemia Possibly acute blood loss anemia related to menorrhagia. Will obtain further anemia work-up, counseled on need for follow-up with OB. Diabetes mellitus type [id number]-[id number] with hyperglycemia A1c in the morning, every 6 hours Accu-Chek, mild sliding scale insulin. Hypertension Hold lisinopril given SILKE. Hyperlipidemia Continue home meds. GERD PPI ordered. DVT PPX: Lovenox Code status: Full Discharge Plan: Home Plan to discharge in: 48 Hours - Advance Directives Does patient have a Living Will: No Does patient have a Durable POA for Healthcare: No - Code Status/Comfort Care Code Status Assessed: Yes (Full code) Critical Care: No Time Spent Managing Pts Care (In Minutes): 70 <Vickey Powell - Last Filed: 04/09/22 20:05> Physician Review Additional Text: I did not assess this patient. She was admitted to Dr. Robertson's service. Please refer to his notes for further details. <Leo Martinez - Last Filed: 04/10/22 06:39>
--- NOTE | 2022-04-09 21:41 | RAD REPORT ---
EXAM DESCRIPTION: CT - Abdomen Pelvis Wo Contrast - 04/09/2022 8:47 pm CLINICAL HISTORY: ABD PAIN COMPARISON: 07/17/2021 TECHNIQUE: Thin cut axial CT imaging of the abdomen and pelvis was performed without IV contrast. Mu ltiplanar reformats were generated and reviewed. All CT scans are performed using dose optimization technique as appropriate and may include automated exposure control or mA/KV adjustment according to patient size. FINDINGS: No suspicious findings in the lung bases. The liver, spleen, and pancreas show no suspicious findings. Gallbladder demonstrates small layering hyperdense calculi. No evidence of intra or extrahepatic biliary ductal dilation Symmetric renal contour, without suspicious parenchymal findings within limits of noncontrast techniq ue. Numerous punctate radiodense foci, could represent small calculi bilaterally versus vascular calc ifications. Appearance is similar to the prior exam. Symmetric bilateral Perinephric edema, more pron ounced than on the prior exam, nonspecific. No dilated bowel loops or bowel wall thickening. No free air, free fluid or inflammatory stranding. N o hernia, mass or bulky lymphadenopathy. The urinary bladder is without significant finding. No suspicious bony findings. IMPRESSION: No acute intra-abdominal process. Symmetric bilateral Perinephric edema, more pronounced than on the prior exam, nonspecific. Please co rrelate with renal functions. Numerous punctate radiodense foci, could represent small calculi bilaterally versus vascular calcific ations, stable.
[2022-04-09] MEDS ORDERED: ONDANSETRON 4 MG/2 ML VIAL IV PRN (22:04)
[2022-04-09] MEDS ORDERED: SODIUM CHLORIDE 0.9% 10ML INJ IV PRN (22:04)
[2022-04-09] MEDS: NA CHLORIDE 0.9% 1,000 ML IV SCH (22:18)
[2022-04-09] MEDS: PROMETHAZINE INJ 25 MG/ML AMP IV PRN (22:18)
[2022-04-09] MEDS: INSULIN -REGULAR HUMAN 50 UNIT/0.5 ML ML SQ SCH (22:18)
[2022-04-09] MEDS: HEPARIN 5000 UNIT/ML 1 ML VIAL SQ SCH (22:19)
[2022-04-09 23:39] VITALS: BMI 28.8
[2022-04-10] MEDS: PROMETHAZINE INJ 25 MG/ML AMP IV PRN ×5 (04:16→23:07)
[2022-04-10 07:22] LABS: Absolute Lymphocytes (CBC) 1.6 K/uL (0.7-4.9); Lymphocytes % 24.6 % (15.3-44.8); MCV 83.5 fL (80-100); MPV 7.2 fL (7.6-11.3); RBC Red Blood Cell Count 2.21 M/uL (3.86-4.86)
[2022-04-10] MEDS: INSULIN -REGULAR HUMAN 50 UNIT/0.5 ML ML SQ SCH ×4 (07:30→21:51)
[2022-04-10 07:35] LABS: Hematocrit 18.5 % (36.0-45.0)
[2022-04-10 07:43] LABS: Albumin 2.6 g/dL (3.4-5.0); Bilirubin Total 0.2 mg/dL (0.2-1.0); Ferritin 9.6 ng/mL (8-388); Potassium 3.6 mmol/L (3.5-5.1); Protein, Total 6.4 g/dL (6.4-8.2); Thyroid Stimulating Hormone 2.79 uIU/mL (0.358-3.740)
[2022-04-10] MEDS: NA CHLORIDE 0.9% 1,000 ML IV SCH ×2 (08:04→17:22)
--- NOTE | 2022-04-10 08:17 | RAD REPORT ---
EXAM DESCRIPTION: US - Renal Ultrasound-Complete - 04/09/2022 11:36 pm CLINICAL HISTORY: arf COMPARISON: Abdomen Pelvis Wo Contrast dated 04/09/2022 FINDINGS: Both kidneys are normal in size, shape and echotexture. The right kidney measures 10.2 cm. Hypoechoic lesion measuring 10 millimeters in the upper pole kidne y likely a cyst. No hydronephrosis. The left kidney measures 10.8 cm. Anechoic lesion lower pole left kidney measuring 13 millimeters con sistent with a cyst. No hydronephrosis. The urinary bladder is incompletely distended without gross abnormality seen. IMPRESSION: No hydronephrosis. Bilateral renal cysts.
[2022-04-10] MEDS: PANTOPRAZOLE 40 MG INJ IVP SCH (09:09)
[2022-04-10] MEDS: lisinopriL 5 MG TAB PO SCH (09:11)
[2022-04-10] MEDS: HEPARIN 5000 UNIT/ML 1 ML VIAL SQ SCH ×2 (10:33→21:51)
--- NOTE | 2022-04-10 10:49 | P.PN ---
Subjective Date of Service: 04/10/22 Chief Complaint: ARF, vomiting Patient still complaining of epigastric sharp pain in addition to nausea and vomiting prior history before Review of Systems Gastrointestinal: Nausea, Vomiting, Abdominal Pain Physical Examination - Vital Signs Temperature: 99.4 F Blood Pressure: 178/74 Pulse: 83 Respirations: 17 Pulse Ox (%): 96 - Physical Exam General: Alert, Oriented x3, Moderate distress Neck: Supple Respiratory: Clear to auscultation bilaterally Cardiovascular: No edema, Regular rate/rhythm Gastrointestinal: Tenderness (Deep epigastric tenderness no rebound or guarding) Musculoskeletal: No clubbing, No swelling - Studies Laboratory Data (last 24 hrs) 04/09/22 15:10: Sodium 138, Potassium 4.0, BUN 36 H, Creatinine 2.07 H, Glucose 305 H, Total Bilirubin 0.3, AST 21, ALT 20, Alkaline Phosphatase 103, Lipase 23 04/09/22 15:10: WBC 10.70, Hgb 8.2 L, Hct 24.8 L, Plt Count 585 H Assessment And Plan - Current Problems (Diagnosis) (1) Nausea & vomiting Current Visit: Yes Status: Acute Plan: Patient is 47 years of age admitted with acute onset of nausea vomiting no diarrhea she is profoundly anemic presumed secondary to menorrhagia continue with IV fluids General surgical consult done ultrasound shows cholelithiasis renal function is improving most likely prerenal cancel nephrology consult Qualifiers: Vomiting type: unspecified Qualified Code(s): R11.2 - Nausea with vomiting, unspecified (2) Anemia Current Visit: Yes Status: Acute Plan: Severe anemia most likely iron deficiency patient has menorrhagia no history of GI bleeding since patient has epigastric plain may have an ulcer Qualifiers: Iron deficiency anemia type: chronic blood loss (3) Renal failure Current Visit: Yes Status: Acute Plan: Patient appears to have acute renal failure ultrasound no hydronephrosis does have some bilateral cysts continue with the hydration no evidence of urinary tract infection
[2022-04-10] MEDS: FENTANYL CITR 100 MCG/2 ML IV PRN ×4 (10:59→23:07)
[2022-04-10] MEDS ORDERED: CLONIDINE 0.1 MG/PATCH TD SCH (11:00)
[2022-04-10] MEDS ORDERED: NA CHLORIDE 0.9% 250 ML ONE ×2 (12:04→16:47)
[2022-04-10] MEDS ORDERED: DIPHENHYDRAMINE 25 MG TAB/CAP PO ONE (23:35)
[2022-04-10 23:40] LABS: Hematocrit 27.4 % (36.0-45.0)
[2022-04-11 03:20] LABS: Absolute Lymphocytes (CBC) 3.1 K/uL (0.7-4.9); Hematocrit 28.2 % (36.0-45.0); Lymphocytes % 33.9 % (15.3-44.8); MPV 6.7 fL (7.6-11.3)
[2022-04-11] MEDS: NA CHLORIDE 0.9% 1,000 ML IV SCH ×2 (03:32→13:00)
[2022-04-11] MEDS: FENTANYL CITR 100 MCG/2 ML IV PRN ×3 (03:32→14:46)
[2022-04-11] MEDS: PROMETHAZINE INJ 25 MG/ML AMP IV PRN ×3 (03:33→14:45)
[2022-04-11 03:37] LABS: Albumin 2.5 g/dL (3.4-5.0); Bilirubin Total 0.4 mg/dL (0.2-1.0); Potassium 3.5 mmol/L (3.5-5.1); Protein, Total 6.6 g/dL (6.4-8.2)
[2022-04-11] MEDS: HYDRALAZINE HCL 20 MG/ML VIAL IV PRN ×2 (04:15→13:58)
[2022-04-11] MEDS: INSULIN -REGULAR HUMAN 50 UNIT/0.5 ML ML SQ SCH ×4 (07:30→21:00)
[2022-04-11] MEDS: LEVOTHYROXINE SOD 0.025 MG TAB PO SCH (08:00)
--- NOTE | 2022-04-11 08:36 | P.PN ---
Subjective Date of Service: 04/11/22 Chief Complaint: ARF, vomiting Patient's nausea vomiting is improved still complains of intermittent severe epigastric tenderness scheduled for an EGD no bleeding noted Review of Systems General: Weakness Gastrointestinal: Nausea, Vomiting, Abdominal Pain Physical Examination - Vital Signs Temperature: 97 F Blood Pressure: 158/83 Pulse: 69 Respirations: 16 Pulse Ox (%): 97 - Physical Exam General: Alert, Oriented x3, Moderate distress Cardiovascular: No edema, Normal S1 S2 Gastrointestinal: Tenderness, Rebound (Particular in the epigastrium) Assessment And Plan - Current Problems (Diagnosis) (1) Nausea & vomiting Current Visit: Yes Status: Acute Plan: Nausea vomiting meeting improving scheduled for an EGD today Qualifiers: Vomiting type: unspecified Qualified Code(s): R11.2 - Nausea with vomiting, unspecified (2) Anemia Current Visit: Yes Status: Acute Plan: S/p blood transfusion rule out peptic ulcer disease hemoglobin now stable Qualifiers: Iron deficiency anemia type: chronic blood loss (3) Renal failure Current Visit: Yes Status: Acute Plan: Renal function improving with IV fluids (4) Hypertension Current Visit: Yes Status: Acute Plan: Started patient on clonidine patch and IV hydralazine as needed Qualifiers: Hypertension type: primary hypertension Qualified Code(s): I10 - Essential (primary) hypertension
[2022-04-11] MEDS ORDERED: CLONIDINE 0.1 MG/PATCH TD SCH (09:00)
[2022-04-11] MEDS: lisinopriL 5 MG TAB PO SCH (09:00)
[2022-04-11] MEDS: HEPARIN 5000 UNIT/ML 1 ML VIAL SQ SCH ×2 (09:00→21:05)
[2022-04-11] MEDS: PANTOPRAZOLE 40 MG INJ IVP SCH (09:42)
[2022-04-11] MEDS ORDERED: propofoL 200 MG/20 ML VIAL IV ONE (11:06)
[2022-04-11] MEDS ORDERED: EPINEPHRINE/PF 1 MG/ML AMP ONE (11:08)
[2022-04-11] MEDS ORDERED: GOLYTELY 4000 ML PO ONE (12:00)
[2022-04-11 12:01] VITALS: O2SAT 99
[2022-04-12] MEDS: NA CHLORIDE 0.9% 1,000 ML IV SCH ×2 (01:01→10:04)
[2022-04-12 03:01] LABS: Absolute Lymphocytes (CBC) 2.5 K/uL (0.7-4.9); Hematocrit 28.3 % (36.0-45.0); Lymphocytes % 30.4 % (15.3-44.8); MCV 82.6 fL (80-100); MPV 6.9 fL (7.6-11.3); RBC Red Blood Cell Count 3.42 M/uL (3.86-4.86)
[2022-04-12 03:20] LABS: Albumin 2.3 g/dL (3.4-5.0); Bilirubin Total 0.4 mg/dL (0.2-1.0); Potassium 3.3 mmol/L (3.5-5.1)
[2022-04-12] MEDS: INSULIN -REGULAR HUMAN 50 UNIT/0.5 ML ML SQ SCH ×2 (07:30→11:30)
[2022-04-12] MEDS: lisinopriL 5 MG TAB PO SCH (08:46)
[2022-04-12] MEDS: LEVOTHYROXINE SOD 0.025 MG TAB PO SCH (08:46)
[2022-04-12] MEDS: HEPARIN 5000 UNIT/ML 1 ML VIAL SQ SCH (08:46)
[2022-04-12] MEDS: PANTOPRAZOLE 40 MG INJ IVP SCH (08:47)
--- NOTE | 2022-04-12 09:03 | P.DS ---
Admission Date: 04/09/22 Discharge Date: 04/12/22 Disposition: ROUTINE DISCHARGE Discharge Condition: FAIR Reason for Admission: ARF, vomiting - Problems (1) Nausea & vomiting Current Visit: Yes Status: Acute Qualifiers: Vomiting type: unspecified Qualified Code(s): R11.2 - Nausea with vomiting, unspecified (2) Anemia Current Visit: Yes Status: Acute Qualifiers: Iron deficiency anemia type: chronic blood loss (3) Renal failure Current Visit: Yes Status: Acute (4) Hypertension Current Visit: Yes Status: Acute Qualifiers: Hypertension type: primary hypertension Qualified Code(s): I10 - Essential (primary) hypertension Brief History of Present Illness: Patient is 47 years of age admitted with nausea vomiting epigastric pain severe anemia history of menorrhagia Hospital Course: Patient was admitted to the hospital was found to be severely anemic transfused 2 unit of packed red blood cells. Iron deficiency anemia suspect secondary to menorrhagia endoscopy showed mild gastritis in by Dr. Waddell need outpatient colonoscopy she denied any history of hematemesis or melenic stools does not take any nonsteroidals uses acetaminophen also had mild chronic renal failure At the time of discharge patient was alert doing better rating a diet terminal pain had improved nausea resolved be discharged home resume her home medication including pantoprazole hemoglobin remained stable no further bleeding noted Vital Signs/Physical Exam: Temp Pulse Resp BP Pulse Ox 98.8 F 69 14 153/71 H 98 04/12/22 04:00 04/12/22 04:00 04/12/22 04:00 04/12/22 04:00 04/12/22 04:00 Laboratory Data at Discharge: WBC Cancelled 04/12/22 06:00 Hgb Cancelled 04/12/22 06:00 Hct Cancelled 04/12/22 06:00 Plt Count Cancelled 04/12/22 06:00 Sodium Cancelled 04/12/22 06:00 Potassium Cancelled 04/12/22 06:00 BUN Cancelled 04/12/22 06:00 Creatinine Cancelled 04/12/22 06:00 Glucose Cancelled 04/12/22 06:00 Total Bilirubin Cancelled 04/12/22 06:00 AST Cancelled 04/12/22 06:00 ALT Cancelled 04/12/22 06:00 Alkaline Phosphatase Cancelled 04/12/22 06:00 Lipase 28 U/L (13-75) 04/11/22 03:09 Home Medications: Aspirin Tab [Cuco Aspirin*] 325 mg PO DAILY 04/10/22 Furosemide 20 mg PO DAILY 04/10/22 Glipizide [Glucotrol Xl] 10 mg PO BID 04/10/22 Levothyroxine Sodium [Unithroid] 25 mcg PO BREAKFAST 04/10/22 Lisinopril [Zestril] 5 mg PO DAILY 04/10/22 Rosuvastatin Calcium [Crestor] 40 mg PO BEDTIME 04/10/22 Sitagliptin Phosphate [Januvia] 100 mg PO DAILY 04/10/22 Pantoprazole Sodium [Protonix] 40 mg PO DAILY 90 Days #90 tab 04/12/22 New Medications: Pantoprazole Sodium [Protonix] 40 mg PO DAILY 90 Days #90 tab Followup: Adriano Agee DO [Primary Care Provider] - Emerson Benson MD [ACTIVE - CAN ADMIT] -
[2022-04-12 12:48] VITALS: BP 175/86; TEMP 99.1
[2022-04-12] MEDS ORDERED: GOLYTELY 4000 ML PO ONE (14:00)
== END 2022-04-12 14:00 | disposition home or self-care (01) | DRG 392 ==
LOC: ER 14:42 → ERHOLD 19:41 → 2ND 20:57
PROVIDERS: ADMIT Internal Medicine; ATTEND Internal Medicine Sleep Medicine
PROC: 30233N1 Transfusion of Nonautologous Red Blood Cells into Peripheral Vein, Percutaneous Approach (ICD-10-PCS; 2022-04-10)
PROC: 0DB78ZX Excision of Stomach, Pylorus, Via Natural or Artificial Opening Endoscopic, Diagnostic (ICD-10-PCS; 2022-04-11)
PROC: 0DB68ZX Excision of Stomach, Via Natural or Artificial Opening Endoscopic, Diagnostic (ICD-10-PCS; 2022-04-11)
PROC: 0DB98ZX Excision of Duodenum, Via Natural or Artificial Opening Endoscopic, Diagnostic (ICD-10-PCS; principal; 2022-04-11 10:00)
DX: K29.70 Gastritis, unspecified, without bleeding (principal); N17.9 Acute kidney failure, unspecified; K21.9 Gastro-esophageal reflux disease without esophagitis; I10 Essential (primary) hypertension; E11.65 Type 2 diabetes mellitus with hyperglycemia; E78.5 Hyperlipidemia, unspecified; E03.9 Hypothyroidism, unspecified; N28.1 Cyst of kidney, acquired; N92.0 Excessive and frequent menstruation with regular cycle; D50.0 Iron deficiency anemia secondary to blood loss (chronic); K80.20 Calculus of gallbladder without cholecystitis without obstruction; Z88.5 Allergy status to narcotic agent; Z79.84 Long term (current) use of oral hypoglycemic drugs; Z79.82 Long term (current) use of aspirin; Z79.890 Hormone replacement therapy; Z79.899 Other long term (current) drug therapy; Z87.891 Personal history of nicotine dependence; Z20.822 Contact with and (suspected) exposure to COVID-19
CPT/HCPCS: 36415; 74176; 76705; 76770; 80053; 81003; 82728; 82947; 83036; 83540; 83690; 84439; 84443; 84466; 85014; 85018; 85025; 86850; 86900; 86901; 87811; 88305; 88312; 96361; 96372; 96374; 96375; 99285; C9113; J0171; J0360; J1644; J1815; J2405; J2550; J2704; J3010; J7030; J7050; P9016

== ENCOUNTER 2023-03-01 10:23 | Inpatient (IN) | payer OTHER ==
--- OUTSIDE RECORDS SUMMARY | 2023-03-01 10:34 | XMS REPORT | Continuity of Care Document ---
Author Name Unknown Address [address] [facility] [address] [place] [address] [facility] thconnect Address [address] [facility] [address] [place] [address] Care Team Providers Care Beverage Sales Consultant Name Role Phone ANDREW VERDUZCO Primary Care Physician GIDEON Danielson Attending Clinician Unavailable DEANNE KAUR Attending Clinician Unavail able MATEO ANTHONY Attending Clinician Unavailable KEMAR RODRIGUEZ Attending Clinician Unavailab ESTHER Marsh Attending Clinician Unavailable IVIS HOOVER Attending Clinician Unavailable ADRIANO AGEE Attending Clinician Unavailable KEATON PATIÑO Attending Clinician Unavailable Keaton Patiño MD Attending Clinician MD ELIJAH Attending Clinician Unavailab TANGELA Mendoza Attending Clinician Unavailab fabio [facility] HEM/ONC NURSE Attending Clinician Lila vailable [id number] Attending Clinician Unavailable LIZETH FLORES Attending Clinician Unavailable 1, [facility] TOMOGRAPHY Attending Clinic mann Unavailable ERIC DURBIN Attending Clinician Unavailab SEBASTIAN Rose Attending Clinician Unava isaacable ANDREI MAR Attending Clinician Unavailable LAB90 Attending Clinician Unavailable TOMOGRAPHY, [facility] Attending Cl inician Unavailable SHMUEL HAGEN Attending Clinician Unavailable NUHA WINSTON Attending Clinician Unav ailable VF53 Attending Clinician Unavailable LEONID ROSE Attending Clinician Unava ilable JORGE CHEEK Attending Clinician Unavailable KESHAWN JONES Attending Clinician Unavailable IVT, GABY Attending Clinician Unavailable CARLTON HERNANDEZ Attending Clinician Unavailab ISMA Zimmerman Attending Clinician Unavailable INFUSION, MC Attending Clinician Unavailable ANGELA BELTRAN Attending Clinician Unavailable ZAIN DIOR Attending Clinician Unavailable TOMOGRAPHY, CK [facility] Attending Mary Lou willett Unavailable MATTHEW ASHFORD Attending Clinician Unavailable PHOEBE ROWE Attending Clinician Unavailable ANDREW VERDUZCO Attending Clinician Unavailab ANDREW Valenzuela Attending Clinician Unavailab ROSETTA Hernández Attending Clinician Unavailable Malini Muñoz LMSW Attending Clinician [phone] Doctor Unassigned, Ponderosa Attending Clinician U navailable UNKNOWN, ATTENDING Attending Clinician Unavailab LEXA Watson Attending Clinician Unavailable Lexa Goff DO Attending Clinician [phone] PATRIA LEVY Attending Clinician Unavailab Santos Colón Attending Clinician Unavailable LEXA GOFF Admitting Clinician Unavailable Santos MOISE Admitting Clinician Unavailable Payers Payer Name Policy Type Policy Number Effective Date Expirati on Date Source [employer] 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 ON STAND 9 [id number] 2022 00:00:00 [employer] 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 [id number] 2023 00:00:00 Problems Condition Name Condition Details Condition Category Status Onset Date Resolution Date Last Treatment Date Treating Clinician Comments Source Pain in both hands Pain in both hands Disease Active 2022-02 00:00: 00 Melissa Grant - Externa l Left elbow pain Left elbow pain Disease Active 2023-1 1-03 00:00: 00 Melissa Seybold - Externa l Uterine prolapse Uterine prolapse Disease Active 2022-02 0-04 00:00: 00 Melissa Seybold - Externa l Charcot's joint arthropath y in type 2 diabetes mellitus (multi HCC) Charcot's joint arthropath y in type 2 diabetes mellitus (multi HCC) Disease Active 5-17 00:00: 00 Melissa Quigleyybold - Externa l Retinopath y of both eyes, background , proliferat blake Retinopath y of both eyes, background , proliferat blake Disease Active 4-04 00:00: 00 Melissa Seybold - Externa l Type 2 diabetes mellitus with stage 3b chronic kidney disease, without long-term current use of insulin (multi HCC) Type 2 diabetes mellitus with stage 3b chronic kidney disease, without long-term current use of insulin (multi HCC) Disease Active 3-31 00:00: 00 Melissa Seybold - Externa l Well adult exam Well adult exam Disease Active 3-24 00:00: 00 Melissa Seybold - Externa l Menorrhagi a with irregular cycle Menorrhagi a with irregular cycle Disease Active 324 00:00: 00 Melissa Seybold - Externa l Iron deficiency anemia due to chronic blood loss Iron deficiency anemia due to chronic blood loss Disease Active 3-16 00:00: 00 Melissa Seybold - Externa l Acquired hypothyroi dism Acquired hypothyroi dism Disease Active 2-24 00:00: 00 Melissa Seybold - Externa l Primary hypertensi on Primary hypertensi on Disease Active 2-24 00:00: 00 Melissa Seybold - Externa l Edema of right lower extremity Edema of right lower extremity Disease Active -24 00:00: 00 Melissa Seybold - Externa l History of foot fracture History of foot fracture Disease Active -24 00:00: 00 Melissa Seybold - Externa l DM type 2 with diabetic mixed hyperlipid emia (multi HCC) DM type 2 with diabetic mixed hyperlipid emia (multi HCC) Disease Active -24 00:00: 00 Melissa Seybold - Externa l BMI 27.0-27.9, adult BMI 27.0-27.9, adult Disease Active 08-20 00:00: 00 [facility] Screening examinatio n for STD (sexually transmitte d disease) Screening examinatio n for STD (sexually transmitte d disease) Disease Active 08-20 00:00: 00 [facility] Elevated blood pressure reading without diagnosis of hypertensi on Elevated blood pressure reading without diagnosis of hypertensi on Disease Active 08-20 00:00: 00 [facility] BMI 27.0-27.9, adult BMI 27.0-27.9, adult Disease Active 08-20 00:00: 00 [facility] Pain pelvic Pain pelvic Disease Active 08-20 00:00: 00 [facility] Allergies, Adverse Reactions, Alerts Allergy Name Allergy Type Status Severity Reaction(s) Onset Date Inactive Date Treating Clinician Comments Source Hydrocod one Propensi ty to adverse reaction s Active 04-09 00:00: 00 Other reaction( s): Nausea/Vo mitingOth er reaction( s): Not available Melissa cates NO KNOWN ALLERGIE S Drug Class Active [facility] Social History Social Habit Start Date Stop Date Quantity Comments Source Gender identity Trisha Grant - External Sexual orientation U [facility] Alcohol intake 2023-02-16 00:00:00 2023-02-16 00:00:00 Ex-drinker (finding) Melissa Grant - External Tobacco use and exposure 2022-09-02 00:00:00 2022-09-02 00:00:00 Smokeless tobacco non-user Melissa Grant - External History of tobacco use 2022-06-08 00:00:00 Current smoker Melissa Grant - External Education - What is the highest level of school you have completed or the highest degree you have received? 2022-04-03 00:00:00 2022-04-03 00:00:00 8th grade Melissa Grant - External History of Social function 2021-09-30 00:00:00 2021-09-30 00:00:00 [facility] Exposure to SARS-CoV-2 (event) 2021-09-19 00:00:00 2021-09-29 13:11:00 Not sure [facility] History SDOH Alcohol Frequency 2019-08-21 00:00:00 2019-08-21 00:00:00 2 [facility] History SDOH Alcohol Std Drinks 2019-08-21 00:00:00 2019-08-21 00:00:00 1 [facility] History SDOH Alcohol Binge 2019-08-21 00:00:00 2019-08-21 00:00:00 1 [facility] Alcohol Comment 2019-08-21 00:00:00 2019-08-21 00:00:00 social [facility] Sex Assigned At 1975 00:00:00 1975 00:00:00 Melissa Grant - External Smoking Status Start Date Stop Date Source Ex-smoker 2022-09-02 00:00:00 2022-09-02 00:00:00 Santos Grant - External Smokes tobacco daily 2022-04-03 00:00:00 Melissa Grant - External Never smoked tobacco [facility] Medications Ordered Medication Name Filled Medication Name Start Date Stop Date Current Medication? Ordering Clinician Indication Dosage Frequency Signature (SIG) Comments Components Source metoclopram torrey HCl (REGLAN) injection 10 mg 02-24 06:45: 00 02-24 06:46 :00 No 10mg 10 mg, Slow IV Push, ONCE, 1 dose, On Wed02/24/23 at 0045, [facility] morpHINE (4 mg/mL) injection 4 mg 02-24 06:45: 00 02-24 06:45 :00 No 4mg 4 mg, Slow IV Push, ONCE, 1 dose, On Wed02/24/23 at 0045, STAT [facility] ondansetron (ZOFRAN (PF)) injection 4 mg 02-24 06:00: 00 02-24 05:53 :00 No 4mg 4 mg, Slow IV Push, ONCE, 1 dose, On Wed02/24/23 at 0000, [facility] NaCl 0.9% (NS) IV infusion 1,000 mL 02-24 05:15: 00 Yes 1000mL at 999 mL/hr, Intravenou s, CONTINUOUS , Starting on Wed02/23/23 at 2315, Until Discontinu ed, Routine [facility] ketorolac (TORADOL) injection 30 mg 02-24 05:15: 00 02-24 04:27 :00 No 30mg 30 mg, Slow IV Push, ONCE, 1 dose, On Wed02/23/23 at 2315, Routine [facility] ondansetron (ZOFRAN (PF)) injection 4 mg 02-24 04:15: 00 02-24 04:14 :00 No 4mg 4 mg, Slow IV Push, ONCE, 1 dose, On Wed02/23/23 at 2215, FRANK [facility] maalox:diph enhydrAMINE :lidocaine 2 % viscous 1:1:1 ([facility]) oral suspension 15 mL 02-24 04:15: 00 02-24 04:13 :00 No 15mL 15 mL, Oral, ONCE, 1 dose, On Wed02/23/23 at 2215, Routine [facility] dicyclomine 20 mg tablet 02-24 00:00: 00 Yes [id number] 20mg Take 1 tablet by mouth every 6 (six) hours as needed for Abdominal pain. [facility] proMETHazin e 25 mg tablet 02-24 00:00: 00 Yes [id number] 25mg Take 1 tablet by mouth every 6 (six) hours as needed for Nausea and Vomiting (N/V). [facility] traMADoL (ULTRAM) 50 mg tablet 02-24 00:00: 00 Yes [id number] 50mg Take 1 tablet by mouth every 6 (six) hours as needed for Pain (scale 7-10). Indication s: acute pain [facility] dicyclomine 20 mg tablet 02-24 00:00: 00 02-24 00:00 :00 No [id number] 20mg Take 1 tablet by mouth every 6 (six) hours as needed for Abdominal pain. [facility] traMADoL (ULTRAM) 50 mg tablet 02-24 00:00: 00 02-24 00:00 :00 No [id number] 50mg Take 1 tablet by mouth every 6 (six) hours as needed for Pain (scale 7-10). Indication s: acute pain [facility] proMETHazin e 25 mg tablet 02-24 00:00: 00 02-24 00:00 :00 No [id number] 25mg Take 1 tablet by mouth every 6 (six) hours as needed for Nausea and Vomiting (N/V). [facility] Ibuprofen (MOTRIN) 400 MG oral Tablet 02-16 00:00: 00 Yes [id number] 400mg Q.25D Take 1 tablet (400 mg total) by mouth every 6 hours as needed. Melissa cates HYDROcodone -Acetaminop hen (Holder) 5-325 MG oral Tablet 02-16 00:00: 00 Yes [id number] 1{tbl} Q.25D Take 1 tablet by mouth every 6 hours as needed for pain. Melissa cates Ibuprofen (MOTRIN) 400 MG oral Tablet 02-16 00:00: 00 Yes [id number] 400mg Q.25D Take 1 tablet (400 mg total) by mouth every 6 hours as needed. Melissa cates HYDROcodone -Acetaminop hen (Holder) 5-325 MG oral Tablet 02-16 00:00: 00 Yes [id number] 1{tbl} Q.25D Take 1 tablet by mouth every 6 hours as needed for pain. Melissa cates Benzonatate (Tessalon Perles) 100 MG oral Capsule 2022-02 00:00: 00 Yes [id number] 100mg Q.[id number] 3D Take 1 capsule (100 mg total) by mouth 3 times daily as needed for cough. Melissa cates Benzonatate (Tessalon Perles) 100 MG oral Capsule 2022-02 00:00: 00 Yes [id number] 100mg Q.88323182 [id number] 3D Take 1 capsule (100 mg total) by mouth 3 times daily as needed for cough. Melissa Grant - Externa l Benzonatate (Tessalon Perles) 100 MG oral Capsule 2022-02 00:00: 00 Yes [id number] 100mg Q.25103227 [id number] 3D Take 1 capsule (100 mg total) by mouth 3 times daily as needed for cough. Melissa Grant - Externa l Benzonatate (Tessalon Perles) 100 MG oral Capsule 2022-02 00:00: 00 Yes [id number] 100mg Q.32181323 [id number] 3D Take 1 capsule (100 mg total) by mouth 3 times daily as needed for cough. Melissa Grant - Externa l Benzonatate (Tessalon Perles) 100 MG oral Capsule 2022-02 00:00: 00 02-16 00:00 :00 No [id number] 100mg Q.51300972 [id number] 3D Take 1 capsule (100 mg total) by mouth 3 times daily as needed for cough. Melissa Uribea darryn Azithromyci n 250 MG oral Tablet 2022-02 00:00: 00 01-04 05:59 :00 Yes [id number] Take 2 tablets by mouth on day 1 then 1 tablet by mouth daily for 4 days thereafter .. Melissa Griffin Externa l Olmesartan Medoxomil 5 MG oral Tablet 2022-02 00:00: 00 Yes 1{tbl} Take 1 tablet by mouth daily. Melissa Griffin Externa l Olmesartan Medoxomil 5 MG oral Tablet 2022-02 00:00: 00 Yes 1{tbl} Take 1 tablet by mouth daily. Melissa Grant - Externa l Olmesartan Medoxomil 5 MG oral Tablet 2022-02 00:00: 00 Yes 1{tbl} Take 1 tablet by mouth daily. Melissa Grant - Externa l Olmesartan Medoxomil 5 MG oral Tablet 2022-02 00:00: 00 Yes 1{tbl} Take 1 tablet by mouth daily. Melissa Grant - Externa l Olmesartan Medoxomil 5 MG oral Tablet 2022-02 00:00: 00 Yes 1{tbl} Take 1 tablet by mouth daily. Melissa Grant - Externa l Olmesartan Medoxomil 5 MG oral Tablet 2022-02 00:00: 00 Yes 1{tbl} Take 1 tablet by mouth daily. Melissa Grant - Externa l Ferrous Sulfate (Iron) 325 (65 Fe) MG oral Tablet 2022-02 00:00: 00 Yes [id number] 325mg Take 1 tablet (325 mg total) by mouth daily (with breakfast) . Melissa Grant - Externa l Ferrous Sulfate (Iron) 325 (65 Fe) MG oral Tablet 2022-02 00:00: 00 Yes [id number] 325mg Take 1 tablet (325 mg total) by mouth daily (with breakfast) . Melissa Grant - Externa l Ferrous Sulfate (Iron) 325 (65 Fe) MG oral Tablet 2022-02 00:00: 00 Yes [id number] 325mg Take 1 tablet (325 mg total) by mouth daily (with breakfast) . Melissa Grant - Externa l Ferrous Sulfate (Iron) 325 (65 Fe) MG oral Tablet 2022-02 00:00: 00 Yes [id number] 325mg Take 1 tablet (325 mg total) by mouth daily (with breakfast) . Melissa Grant - Externa l Ferrous Sulfate (Iron) 325 (65 Fe) MG oral Tablet 2022-02 00:00: 00 Yes [id number] 325mg Take 1 tablet (325 mg total) by mouth daily (with breakfast) . Melissa Grant - Externa l Ferrous Sulfate (Iron) 325 (65 Fe) MG oral Tablet 2022-02 00:00: 00 Yes [id number] 325mg Take 1 tablet (325 mg total) by mouth daily (with breakfast) . Melissa Quigleyybmayra - Externa l Ferrous Sulfate (Iron) 325 (65 Fe) MG oral Tablet 2022-02 00:00: 00 Yes [id number] 325mg Take 1 tablet (325 mg total) by mouth daily (with breakfast) . Melissa Grant - Externyudi darryn Atorvastati n Calcium (Lipitor) 10 MG oral Tablet 2022-02 0 00:00: 00 Yes [id number] 3 10mg Take 1 tablet (10 mg total) by mouth nightly. Melissa Qiugleypawelmayra Griffin Jojoyudi darryn Duloxetine HCl [address] Particles 2022-02 0 00:00: 00 Yes [id number] 20mg Take 1 capsule (20 mg total) by mouth daily. Melissa Quigleypawelmayra Griffin Jojoyudi darryn Atorvastati n Calcium (Lipitor) 10 MG oral Tablet 2022-02 0 00:00: 00 Yes [id number] 3 10mg Take 1 tablet (10 mg total) by mouth nightly. Melissa Quigleypawelmayra Griffin Jojoyudi darryn Duloxetine HCl [address] Particles 2022-02 0 00:00: 00 Yes [id number] 20mg Take 1 capsule (20 mg total) by mouth daily. Melissa Rudy cates Atorvastati n Calcium (Lipitor) 10 MG oral Tablet 2022-02 0 00:00: 00 Yes [id number] 3 10mg Take 1 tablet (10 mg total) by mouth nightly. Melissa Quigleypawelmayra Griffin Jojoyudi darryn Duloxetine HCl [address] Particles 2022-02 0 00:00: 00 Yes [id number] 20mg Take 1 capsule (20 mg total) by mouth daily. Melissa Rudy cates Atorvastati n Calcium (Lipitor) 10 MG oral Tablet 2022-02 0 00:00: 00 Yes [id number] 3 10mg Take 1 tablet (10 mg total) by mouth nightly. Melissa Serobbie Uribeyudi darryn Duloxetine HCl [address] Particles 2022-02 0 00:00: 00 Yes [id number] 20mg Take 1 capsule (20 mg total) by mouth daily. Melissa Rudy Uribeyudi darryn Atorvastati n Calcium (Lipitor) 10 MG oral Tablet 2022-02 030 00:00: 00 Yes [id number] 3 10mg Take 1 tablet (10 mg total) by mouth nightly. Melissa cates Duloxetine HCl [address] Particles 2022-02 0-30 00:00: 00 Yes [id number] 20mg Take 1 capsule (20 mg total) by mouth daily. Melissa cates Atorvastati n Calcium (Lipitor) 10 MG oral Tablet 2022-02 00:00: 00 Yes [id number] 3 10mg Take 1 tablet (10 mg total) by mouth nightly. Melissa cates Atorvastati n Calcium (Lipitor) 10 MG oral Tablet 2022-02 00:00: 00 Yes [id number] 3 10mg Take 1 tablet (10 mg total) by mouth nightly. Melissa cates Duloxetine HCl [address] Particles 2022-02 00:00: 00 02-16 00:00 :00 No [id number] 20mg Take 1 capsule (20 mg total) by mouth daily. Melissa cates glipiZIDE 10 MG oral Tablet 2022-02 00:00: 00 Yes [id number] 10mg Take 1 tablet (10 mg total) by mouth in the morning and 1 tablet (10 mg total) in the evening. Take before meals. Melissa cates glipiZIDE 10 MG oral Tablet 2022-02 00:00: 00 Yes [id number] 10mg Take 1 tablet (10 mg total) by mouth in the morning and 1 tablet (10 mg total) in the evening. Take before meals. Melissa cates glipiZIDE 10 MG oral Tablet 2022-02 00:00: 00 Yes [id number] 10mg Take 1 tablet (10 mg total) by mouth in the morning and 1 tablet (10 mg total) in the evening. Take before meals. Melissa cates glipiZIDE 10 MG oral Tablet 2022-02 00:00: 00 Yes [id number] 10mg Take 1 tablet (10 mg total) by mouth in the morning and 1 tablet (10 mg total) in the evening. Take before meals. Melissa cates glipiZIDE 10 MG oral Tablet 2022-02 00:00: 00 Yes [id number] 10mg Take 1 tablet (10 mg total) by mouth in the morning and 1 tablet (10 mg total) in the evening. Take before meals. Melissa cates glipiZIDE 10 MG oral Tablet 2022-02 00:00: 00 Yes [id number] 10mg Take 1 tablet (10 mg total) by mouth in the morning and 1 tablet (10 mg total) in the evening. Take before meals. Melissa cates glipiZIDE 10 MG oral Tablet 2022-02 00:00: 00 Yes [id number] 10mg Take 1 tablet (10 mg total) by mouth in the morning and 1 tablet (10 mg total) in the evening. Take before meals. Melissa cates Aspirin 81 MG oral Tablet Delayed Response 2022-02 11:12: 35 11-11 00:00 :00 No Take 1 tablet every day by oral route. Melissa cates Esomeprazol e Magnesium (NexIUM) 40 MG oral Delayed Release Capsule 2022-02 00:00: 00 Yes [id number] 40mg Take 1 capsule (40 mg total) by mouth every morning (before breakfast) . Melissa cates Esomeprazol e Magnesium (NexIUM) 40 MG oral Delayed Release Capsule 2022-02 00:00: 00 Yes [id number] 40mg Take 1 capsule (40 mg total) by mouth every morning (before breakfast) . Melissa cates Carvedilol (Coreg) 6.25 MG oral Tablet 2022-02 00:00: 00 Yes [id number] 6.25mg Take 1 tablet (6.25 mg total) by mouth in the morning and 1 tablet (6.25 mg total) in the evening. Take with meals. Melissa cates Duloxetine HCl [address] Particles 2022-02 00:00: 00 Yes [id number] 20mg Take 1 capsule (20 mg total) by mouth daily. Melissa cates Esomeprazol e Magnesium (NexIUM) 40 MG oral Delayed Release Capsule 2022-02 00:00: 00 Yes [id number] 40mg Take 1 capsule (40 mg total) by mouth every morning (before breakfast) . Melissa cates Carvedilol (Coreg) 6.25 MG oral Tablet 2022-02 00:00: 00 Yes [id number] 6.25mg Take 1 tablet (6.25 mg total) by mouth in the morning and 1 tablet (6.25 mg total) in the evening. Take with meals. Melissa cates Esomeprazol e Magnesium (NexIUM) 40 MG oral Delayed Release Capsule 2022-02 00:00: 00 Yes [id number] 40mg Take 1 capsule (40 mg total) by mouth every morning (before breakfast) . Melissa cates Carvedilol (Coreg) 6.25 MG oral Tablet 2022-02 00:00: 00 Yes [id number] 6.25mg Take 1 tablet (6.25 mg total) by mouth in the morning and 1 tablet (6.25 mg total) in the evening. Take with meals. Melissa cates Esomeprazol e Magnesium (NexIUM) 40 MG oral Delayed Release Capsule 2022-02 00:00: 00 Yes [id number] 40mg Take 1 capsule (40 mg total) by mouth every morning (before breakfast) . Melissa cates Carvedilol (Coreg) 6.25 MG oral Tablet 2022-02 00:00: 00 Yes [id number] 6.25mg Take 1 tablet (6.25 mg total) by mouth in the morning and 1 tablet (6.25 mg total) in the evening. Take with meals. Melissa cates Esomeprazol e Magnesium (NexIUM) 40 MG oral Delayed Release Capsule 2022-02 00:00: 00 Yes [id number] 40mg Take 1 capsule (40 mg total) by mouth every morning (before breakfast) . Melissa cates Carvedilol (Coreg) 6.25 MG oral Tablet 2022-02 00:00: 00 Yes [id number] 6.25mg Take 1 tablet (6.25 mg total) by mouth in the morning and 1 tablet (6.25 mg total) in the evening. Take with meals. Melissa cates Esomeprazol e Magnesium (NexIUM) 40 MG oral Delayed Release Capsule 2022-02 00:00: 00 Yes [id number] 40mg Take 1 capsule (40 mg total) by mouth every morning (before breakfast) . Melissa cates Carvedilol (Coreg) 6.25 MG oral Tablet 2022-02 00:00: 00 Yes [id number] 6.25mg Take 1 tablet (6.25 mg total) by mouth in the morning and 1 tablet (6.25 mg total) in the evening. Take with meals. Melissa cates Esomeprazol e Magnesium (NexIUM) 40 MG oral Delayed Release Capsule 2022-02 00:00: 00 Yes [id number] 40mg Take 1 capsule (40 mg total) by mouth every morning (before breakfast) . Melissa cates Carvedilol (Coreg) 6.25 MG oral Tablet 2022-02 00:00: 00 02-16 00:00 :00 No [id number] 6.25mg Take 1 tablet (6.25 mg total) by mouth in the morning and 1 tablet (6.25 mg total) in the evening. Take with meals. Melissa cates Gabapentin 100 MG oral Capsule 2022-02 00:00: 00 11-11 00:00 :00 No [id number] 100mg Take 1 capsule (100 mg total) by mouth nightly. Melissa cates Duloxetine HCl [address] Particles 2022-02 00:00: 00 11-11 00:00 :00 No [id number] 20mg Take 1 capsule (20 mg total) by mouth daily. Melissa cates Aspirin 81 MG oral Tablet Delayed Response 11-05 14:58: 48 Yes Take 1 tablet every day by oral route. Melissa cates Gabapentin 100 MG oral Capsule 11-02 00:00: 00 Yes [id number] 100mg Q.5D Take 1 capsule (100 mg total) by mouth 2 times daily as needed (pain). Melissa cates Gabapentin 100 MG oral Capsule 11-02 00:00: 00 11-11 00:00 :00 No [id number] 100mg Q.5D Take 1 capsule (100 mg total) by mouth 2 times daily as needed (pain). Melissa Uribea darryn Bevacizumab (AVASTIN) 100 mg/4 mL - Physician Administere d ([id number]) 10-30 19:30: 00 10-30 19:19 :00 No [id number] 101 1.25mg Melissa Uribea l Bevacizumab (AVASTIN) 100 mg/4 mL - Physician Administere d ([id number]) 10-30 19:30: 00 10-30 19:19 :00 No [id number] 101 1.25mg 1.25 mg, Physician Administer ed, ONCE, 1 dose, On Wed10/30/22 at 1430 Melissa Uribea darryn Bevacizumab (AVASTIN) 100 mg/4 mL - Physician Administere d ([id number]) 10-30 19:30: 00 10-30 19:19 :00 No [id number] 101 1.25mg Melissa Uribea l Bevacizumab (AVASTIN) 100 mg/4 mL - Physician Administere d ([id number]) 10-30 19:30: 00 10-30 19:19 :00 No [id number] 101 1.25mg 1.25 mg, Physician Administer ed, ONCE, 1 dose, On Wed10/30/22 at 1430 Melissa Uribea darryn Aspirin 81 MG oral Tablet Delayed Response 10-30 13:41: 02 Yes Take 1 tablet every day by oral route. Melissa Uribea l Aspirin 81 MG oral Tablet Delayed Response 10-30 13:41: 02 Yes Take 1 tablet every day by oral route. Melissa Uribea l Aspirin 81 MG oral Tablet Delayed Response 10-30 10:34: 52 Yes Take 1 tablet every day by oral route. Melissa Griffin Externa l Aspirin 81 MG oral Tablet Delayed Response 10-30 10:34: 52 Yes Take 1 tablet every day by oral route. Melissa Uribea l Aspirin 81 MG oral Tablet Delayed Response 0 10-28 16:44: 47 Yes Take 1 tablet every day by oral route. Melissa Griffin Externa l Aspirin 81 MG oral Tablet Delayed Response 0 10-28 16:44: 47 Yes Take 1 tablet every day by oral route. Melissa Griffin Externa l Aspirin 81 MG oral Tablet Delayed Response 0 10-27 14:21: 48 Yes Take 1 tablet every day by oral route. Melissa Griffin Externa l Aspirin 81 MG oral Tablet Delayed Response 0 18 14:32: 26 Yes Take 1 tablet every day by oral route. Melissa Uribea l Aspirin 81 MG oral Tablet Delayed Response 0 10-13 13:43: 47 Yes Take 1 tablet every day by oral route. Melissa Griffin Externa l Latanoprost 0.005 % ophthalmic Solution 10-13 00:00: 00 Yes [id number] 1[drp] Place 1 drop into both eyes nightly. Melissa Grant - Externa l Latanoprost 0.005 % ophthalmic Solution 10-13 00:00: 00 Yes [id number] 1[drp] Place 1 drop into both eyes nightly. Melissa Grant - Externa l Latanoprost 0.005 % ophthalmic Solution 10-13 00:00: 00 Yes [id number] 1[drp] Place 1 drop into both eyes nightly. Melissa Grant - Externa l Latanoprost 0.005 % ophthalmic Solution 10-13 00:00: 00 Yes [id number] 1[drp] Place 1 drop into both eyes nightly. Melissa Quigleyybold - Externa l Latanoprost 0.005 % ophthalmic Solution 0 10-13 00:00: 00 Yes [id number] 1[drp] Place 1 drop into both eyes nightly. Melissa Quigleyybold - Externa l Latanoprost 0.005 % ophthalmic Solution 0 10-13 00:00: 00 Yes [id number] 1[drp] Place 1 drop into both eyes nightly. Melissa Quigleyybold - Externa l Latanoprost 0.005 % ophthalmic Solution 2022-0 05 00:00: 00 Yes [id number] 1[drp] Place 1 drop into both eyes nightly. Melissa Seybold - Externa l Latanoprost 0.005 % ophthalmic Solution 2022-0 -05 00:00: 00 Yes [id number] 1[drp] Place 1 drop into both eyes nightly. Melissa Seybold - Externa l Latanoprost 0.005 % ophthalmic Solution 2022-0 05 00:00: 00 Yes [id number] 1[drp] Place 1 drop into both eyes nightly. Melissa Seybold - Externa l Latanoprost 0.005 % ophthalmic Solution 2022-0 05 00:00: 00 Yes [id number] 1[drp] Place 1 drop into both eyes nightly. Melissa Seybold - Externa l Latanoprost 0.005 % ophthalmic Solution 2022-0 05 00:00: 00 Yes [id number] 1[drp] Place 1 drop into both eyes nightly. Melissa Seybold - Externa l Latanoprost 0.005 % ophthalmic Solution 2022-0 05 00:00: 00 Yes [id number] 1[drp] Place 1 drop into both eyes nightly. Melissa Seybold - Externa l Latanoprost 0.005 % ophthalmic Solution 2022-0 05 00:00: 00 Yes [id number] 1[drp] Place 1 drop into both eyes nightly. Melissa Seybold - Externa l Latanoprost 0.005 % ophthalmic Solution 2022-0 05 00:00: 00 Yes [id number] 1[drp] Place 1 drop into both eyes nightly. Melissa Seybold - Externa l Latanoprost 0.005 % ophthalmic Solution 2022-0 9-05 00:00: 00 Yes [id number] 1[drp] Place 1 drop into both eyes nightly. Melissa Seybold - Externa l Latanoprost 0.005 % ophthalmic Solution 2022-0 -05 00:00: 00 Yes [id number] 1[drp] Place 1 drop into both eyes nightly. Melissa Seybold - Externa l Latanoprost 0.005 % ophthalmic Solution 10-13 00:00: 00 Yes [id number] 1[drp] Place 1 drop into both eyes nightly. Melissa Flannery l Latanoprost 0.005 % ophthalmic Solution 10-13 00:00: 00 Yes [id number] 1[drp] Place 1 drop into both eyes nightly. Melissa Uribea darryn Atorvastati n Calcium (Lipitor) 10 MG oral Tablet 09-28 00:00: 00 Yes [id number] 3 10mg Take 1 tablet (10 mg total) by mouth nightly. Melissa Griffin Externa darryn Atorvastati n Calcium (Lipitor) 10 MG oral Tablet 09-28 00:00: 00 Yes [id number] 3 10mg Take 1 tablet (10 mg total) by mouth nightly. Melissa cates Atorvastati n Calcium (Lipitor) 10 MG oral Tablet 09-28 00:00: 00 Yes [id number] 3 10mg Take 1 tablet (10 mg total) by mouth nightly. Melissa cates Atorvastati n Calcium (Lipitor) 10 MG oral Tablet 09-28 00:00: 00 Yes [id number] 3 10mg Take 1 tablet (10 mg total) by mouth nightly. Melissa cates Atorvastati n Calcium (Lipitor) 10 MG oral Tablet 09-28 00:00: 00 Yes [id number] 3 10mg Take 1 tablet (10 mg total) by mouth nightly. Melissa Griffin Externa darryn Atorvastati n Calcium (Lipitor) 10 MG oral Tablet 09-28 00:00: 00 Yes [id number] 3 10mg Take 1 tablet (10 mg total) by mouth nightly. Melissa Grant - Externa l Atorvastati n Calcium (Lipitor) 10 MG oral Tablet 09-28 00:00: 00 Yes [id number] 3 10mg Take 1 tablet (10 mg total) by mouth nightly. Melissa Uribea l Atorvastati n Calcium (Lipitor) 10 MG oral Tablet 09-28 00:00: 00 Yes [id number] 3 10mg Take 1 tablet (10 mg total) by mouth nightly. Melissa cates Atorvastati n Calcium (Lipitor) 10 MG oral Tablet 09-28 00:00: 00 Yes [id number] 3 10mg Take 1 tablet (10 mg total) by mouth nightly. Melissa cates Atorvastati n Calcium (Lipitor) 10 MG oral Tablet 09-28 00:00: 00 Yes [id number] 3 10mg Take 1 tablet (10 mg total) by mouth nightly. Melissa cates Atorvastati n Calcium (Lipitor) 10 MG oral Tablet 09-28 00:00: 00 Yes [id number] 3 10mg Take 1 tablet (10 mg total) by mouth nightly. Melissa cates Latanoprost 0.005 % ophthalmic Solution 09-28 00:00: 00 10-13 00:00 :00 No [id number] 1[drp] Place 1 drop into both eyes nightly. Melissa cates Esomeprazol e Magnesium (NexIUM) 40 MG oral Delayed Release Capsule 09-08 00:00: 00 Yes 40mg Take 1 capsule (40 mg total) by mouth 2 times daily for 14 days Melissa cates Esomeprazol e Magnesium (NexIUM) 40 MG oral Delayed Release Capsule 09-08 00:00: 00 Yes 40mg Take 1 capsule (40 mg total) by mouth 2 times daily for 14 days Melissa cates Esomeprazol e Magnesium (NexIUM) 40 MG oral Delayed Release Capsule 09-08 00:00: 00 Yes 40mg Take 1 capsule (40 mg total) by mouth 2 times daily for 14 days Melissa cates Esomeprazol e Magnesium (NexIUM) 40 MG oral Delayed Release Capsule 09-08 00:00: 00 Yes 40mg Take 1 capsule (40 mg total) by mouth 2 times daily for 14 days Melissa cates Esomeprazol e Magnesium (NexIUM) 40 MG oral Delayed Release Capsule 0 09-08 00:00: 00 Yes 40mg Take 1 capsule (40 mg total) by mouth 2 times daily for 14 days Melissa cates Esomeprazol e Magnesium (NexIUM) 40 MG oral Delayed Release Capsule 09-08 00:00: 00 Yes 40mg Take 1 capsule (40 mg total) by mouth 2 times daily for 14 days Melissa cates Esomeprazol e Magnesium (NexIUM) 40 MG oral Delayed Release Capsule 09-08 00:00: 00 Yes 40mg Take 1 capsule (40 mg total) by mouth 2 times daily for 14 days Melissa cates Esomeprazol e Magnesium (NexIUM) 40 MG oral Delayed Release Capsule 09-08 00:00: 00 Yes 40mg Take 1 capsule (40 mg total) by mouth 2 times daily for 14 days Melissa cates Esomeprazol e Magnesium (NexIUM) 40 MG oral Delayed Release Capsule 09-08 00:00: 00 Yes 40mg Take 1 capsule (40 mg total) by mouth 2 times daily for 14 days Melissa ctaes Esomeprazol e Magnesium (NexIUM) 40 MG oral Delayed Release Capsule 09-08 00:00: 00 Yes 40mg Take 1 capsule (40 mg total) by mouth 2 times daily for 14 days Melissa ctaes Esomeprazol e Magnesium (NexIUM) 40 MG oral Delayed Release Capsule 09-08 00:00: 00 11-11 00:00 :00 No 40mg Take 1 capsule (40 mg total) by mouth 2 times daily for 14 days Melissa cates Metronidazo le (Flagyl) 500 MG oral Tablet 09-08 00:00: 00 11-05 00:00 :00 No 500mg Take 1 tablet (500 mg total) by mouth 2 times daily for 14 days Melissa cates Amoxicillin (AMOXIL) 500 MG oral Capsule 09-08 00:00: 00 10-26 00:00 :00 No 1000mg Take 2 capsules (1,000 mg total) by mouth 2 times daily for 14 days Melissa Seybold - Externa l Ondansetron HCl 4 MG oral Tablet 09-04 00:00: 00 Yes [id number] 4mg Q.[id number] 3D Take 1 tablet (4 mg total) by mouth every 8 hours as needed for nausea Melissa Seybold - Externa l Ondansetron HCl 4 MG oral Tablet 09-04 00:00: 00 Yes [id number] 4mg Q.[id number] 3D Take 1 tablet (4 mg total) by mouth every 8 hours as needed for nausea Melissa Seybold - Externa l Ondansetron HCl 4 MG oral Tablet 09-04 00:00: 00 Yes [id number] 4mg Q.[id number] 3D Take 1 tablet (4 mg total) by mouth every 8 hours as needed for nausea Melissa Seybold - Externa l Ondansetron HCl 4 MG oral Tablet 09-04 00:00: 00 Yes [id number] 4mg Q.[id number] 3D Take 1 tablet (4 mg total) by mouth every 8 hours as needed for nausea Melissa Seybold - Externa l Ondansetron HCl 4 MG oral Tablet 09-04 00:00: 00 Yes [id number] 4mg Q.[id number] 3D Take 1 tablet (4 mg total) by mouth every 8 hours as needed for nausea Melissa Seybold - Externa l Ondansetron HCl 4 MG oral Tablet 09-04 00:00: 00 Yes [id number] 4mg Q.28029943 [id number] 3D Take 1 tablet (4 mg total) by mouth every 8 hours as needed for nausea Melissa Seybold - Externa l Ondansetron HCl 4 MG oral Tablet 09-04 00:00: 00 Yes [id number] 4mg Q.[id number] 3D Take 1 tablet (4 mg total) by mouth every 8 hours as needed for nausea Melissa Seybold - Externa l Ondansetron HCl 4 MG oral Tablet 09-04 00:00: 00 Yes [id number] 4mg Q.40090839 [id number] 3D Take 1 tablet (4 mg total) by mouth every 8 hours as needed for nausea Melissa Rudy - Externa l Ondansetron HCl 4 MG oral Tablet 09-04 00:00: 00 Yes [id number] 4mg Q.[id number] 3D Take 1 tablet (4 mg total) by mouth every 8 hours as needed for nausea Melissa Rudy - Externa l Ondansetron HCl 4 MG oral Tablet 09-04 00:00: 00 Yes [id number] 4mg Q.[id number] 3D Take 1 tablet (4 mg total) by mouth every 8 hours as needed for nausea Melissa Rudy - Externa l Ondansetron HCl 4 MG oral Tablet 09-04 00:00: 00 11-11 00:00 :00 No [id number] 4mg Q.[id number] 3D Take 1 tablet (4 mg total) by mouth every 8 hours as needed for nausea Melissa Uribea l Aspirin 81 MG oral Tablet Delayed Response 09-03 15:14: 59 Yes Take 1 tablet every day by oral route. Melissa Griffin Externa l Levothyroxi ne Sodium 75 MCG oral Tablet 09-02 00:00: 00 Yes [id number] 75ug Take 1 tablet (75 mcg total) by mouth daily Melissa Griffin Externa l Sitagliptin Phosphate (Januvia) 50 MG oral Tablet 09-02 00:00: 00 Yes [id number] 50mg Take 1 tablet (50 mg total) by mouth daily Melissa Griffin Externa l Levothyroxi ne Sodium 75 MCG oral Tablet 09-02 00:00: 00 Yes [id number] 75ug Take 1 tablet (75 mcg total) by mouth daily Melissa Griffin Externa l Sitagliptin Phosphate (Januvia) 50 MG oral Tablet 09-02 00:00: 00 Yes [id number] 50mg Take 1 tablet (50 mg total) by mouth daily Melissa Uribea darryn Lansoprazol e 30 MG oral Delayed Release Capsule 09-02 00:00: 00 Yes [id number] 30mg Take 1 capsule (30 mg total) by mouth daily Melissa Griffin Externa darryn Levothyroxi ne Sodium 75 MCG oral Tablet 09-02 00:00: 00 Yes [id number] 75ug Take 1 tablet (75 mcg total) by mouth daily Melissa Uribea darryn Sitagliptin Phosphate (Januvia) 50 MG oral Tablet 09-02 00:00: 00 Yes [id number] 50mg Take 1 tablet (50 mg total) by mouth daily Melissa cates Lansoprazol e 30 MG oral Delayed Release Capsule 09-02 00:00: 00 Yes [id number] 30mg Take 1 capsule (30 mg total) by mouth daily Melissa Uribea darryn Levothyroxi ne Sodium 75 MCG oral Tablet 09-02 00:00: 00 Yes [id number] 75ug Take 1 tablet (75 mcg total) by mouth daily Melissa Uribea darryn Sitagliptin Phosphate (Januvia) 50 MG oral Tablet 09-02 00:00: 00 Yes [id number] 50mg Take 1 tablet (50 mg total) by mouth daily Melissa cates Lansoprazol e 30 MG oral Delayed Release Capsule 09-02 00:00: 00 Yes [id number] 30mg Take 1 capsule (30 mg total) by mouth daily Melissa Uribea darryn Levothyroxi ne Sodium 75 MCG oral Tablet 09-02 00:00: 00 Yes [id number] 75ug Take 1 tablet (75 mcg total) by mouth daily Melissa Uribea darryn Sitagliptin Phosphate (Januvia) 50 MG oral Tablet 09-02 00:00: 00 Yes [id number] 50mg Take 1 tablet (50 mg total) by mouth daily Melissa Uribea darryn Lansoprazol e 30 MG oral Delayed Release Capsule 09-02 00:00: 00 Yes [id number] 30mg Take 1 capsule (30 mg total) by mouth daily Melissa Griffin Externa darryn Levothyroxi ne Sodium 75 MCG oral Tablet 09-02 00:00: 00 Yes [id number] 75ug Take 1 tablet (75 mcg total) by mouth daily Melissa Uribea darryn Sitagliptin Phosphate (Januvia) 50 MG oral Tablet 09-02 00:00: 00 Yes [id number] 50mg Take 1 tablet (50 mg total) by mouth daily Melissa Uribea darryn Lansoprazol e 30 MG oral Delayed Release Capsule 09-02 00:00: 00 Yes [id number] 30mg Take 1 capsule (30 mg total) by mouth daily Melissa Uribea darryn Levothyroxi ne Sodium 75 MCG oral Tablet 09-02 00:00: 00 Yes [id number] 75ug Take 1 tablet (75 mcg total) by mouth daily Melissa cates Sitagliptin Phosphate (Januvia) 50 MG oral Tablet 09-02 00:00: 00 Yes [id number] 50mg Take 1 tablet (50 mg total) by mouth daily Melissa cates Lansoprazol e 30 MG oral Delayed Release Capsule 09-02 00:00: 00 Yes [id number] 30mg Take 1 capsule (30 mg total) by mouth daily Melissa cates Levothyroxi ne Sodium 75 MCG oral Tablet 09-02 00:00: 00 Yes [id number] 75ug Take 1 tablet (75 mcg total) by mouth daily Melissa cates Sitagliptin Phosphate (Januvia) 50 MG oral Tablet 09-02 00:00: 00 Yes [id number] 50mg Take 1 tablet (50 mg total) by mouth daily Melissa Uribea darryn Lansoprazol e 30 MG oral Delayed Release Capsule 09-02 00:00: 00 Yes [id number] 30mg Take 1 capsule (30 mg total) by mouth daily Melissa Griffin Externa darryn Levothyroxi ne Sodium 75 MCG oral Tablet 09-02 00:00: 00 Yes [id number] 75ug Take 1 tablet (75 mcg total) by mouth daily Melissa cates Sitagliptin Phosphate (Januvia) 50 MG oral Tablet 09-02 00:00: 00 Yes [id number] 50mg Take 1 tablet (50 mg total) by mouth daily Melissa cates Lansoprazol e 30 MG oral Delayed Release Capsule 09-02 00:00: 00 Yes [id number] 30mg Take 1 capsule (30 mg total) by mouth daily Melissa cates Levothyroxi ne Sodium 75 MCG oral Tablet 09-02 00:00: 00 Yes [id number] 75ug Take 1 tablet (75 mcg total) by mouth daily Melissa cates Sitagliptin Phosphate (Januvia) 50 MG oral Tablet 09-02 00:00: 00 Yes [id number] 50mg Take 1 tablet (50 mg total) by mouth daily Melissa cates Lansoprazol e 30 MG oral Delayed Release Capsule 09-02 00:00: 00 Yes [id number] 30mg Take 1 capsule (30 mg total) by mouth daily Melissa cates Levothyroxi ne Sodium 75 MCG oral Tablet 09-02 00:00: 00 Yes [id number] 75ug Take 1 tablet (75 mcg total) by mouth daily Melissa cates Sitagliptin Phosphate (Januvia) 50 MG oral Tablet 09-02 00:00: 00 Yes [id number] 50mg Take 1 tablet (50 mg total) by mouth daily Melissa cates Lansoprazol e 30 MG oral Delayed Release Capsule 09-02 00:00: 00 Yes [id number] 30mg Take 1 capsule (30 mg total) by mouth daily Melissa Uribea darryn Levothyroxi ne Sodium 75 MCG oral Tablet 09-02 00:00: 00 Yes [id number] 75ug Take 1 tablet (75 mcg total) by mouth daily Melissa cates Sitagliptin Phosphate (Januvia) 50 MG oral Tablet 09-02 00:00: 00 Yes [id number] 50mg Take 1 tablet (50 mg total) by mouth daily Melissa cates Lansoprazol e 30 MG oral Delayed Release Capsule 09-02 00:00: 00 Yes [id number] 30mg Take 1 capsule (30 mg total) by mouth daily Melissa Griffin Externa darryn Levothyroxi ne Sodium 75 MCG oral Tablet 09-02 00:00: 00 Yes [id number] 75ug Take 1 tablet (75 mcg total) by mouth daily Melissa Uribea darryn Sitagliptin Phosphate (Januvia) 50 MG oral Tablet 09-02 00:00: 00 Yes [id number] 50mg Take 1 tablet (50 mg total) by mouth daily Melissa Griffin Externa darryn Levothyroxi ne Sodium 75 MCG oral Tablet 09-02 00:00: 00 Yes [id number] 75ug Take 1 tablet (75 mcg total) by mouth daily Melissa Uribea darryn Sitagliptin Phosphate (Januvia) 50 MG oral Tablet 09-02 00:00: 00 Yes [id number] 50mg Take 1 tablet (50 mg total) by mouth daily Melissa Griffin Externa darryn Levothyroxi ne Sodium 75 MCG oral Tablet 09-02 00:00: 00 Yes [id number] 75ug Take 1 tablet (75 mcg total) by mouth daily Melissa Uribea darryn Sitagliptin Phosphate (Januvia) 50 MG oral Tablet 09-02 00:00: 00 Yes [id number] 50mg Take 1 tablet (50 mg total) by mouth daily Melissa Griffin Externa darryn Levothyroxi ne Sodium 75 MCG oral Tablet 09-02 00:00: 00 Yes [id number] 75ug Take 1 tablet (75 mcg total) by mouth daily Melissa Uribea darryn Sitagliptin Phosphate (Januvia) 50 MG oral Tablet 09-02 00:00: 00 Yes [id number] 50mg Take 1 tablet (50 mg total) by mouth daily Melissa Griffin Externa darryn Levothyroxi ne Sodium 75 MCG oral Tablet 09-02 00:00: 00 Yes [id number] 75ug Take 1 tablet (75 mcg total) by mouth daily Melissa cates Sitagliptin Phosphate (Januvia) 50 MG oral Tablet 09-02 00:00: 00 Yes [id number] 50mg Take 1 tablet (50 mg total) by mouth daily Melissa cates Levothyroxi ne Sodium 75 MCG oral Tablet 09-02 00:00: 00 Yes [id number] 75ug Take 1 tablet (75 mcg total) by mouth daily Melissa cates Sitagliptin Phosphate (Januvia) 50 MG oral Tablet 09-02 00:00: 00 Yes [id number] 50mg Take 1 tablet (50 mg total) by mouth daily Melissa cates Levothyroxi ne Sodium 75 MCG oral Tablet 09-02 00:00: 00 Yes [id number] 75ug Take 1 tablet (75 mcg total) by mouth daily Melissa cates Sitagliptin Phosphate (Febuvia) 50 MG oral Tablet 09-02 00:00: 00 Yes [id number] 50mg Take 1 tablet (50 mg total) by mouth daily Melissa cates Lansoprazol e 30 MG oral Delayed Release Capsule 09-02 00:00: 00 11-11 00:00 :00 No [id number] 30mg Take 1 capsule (30 mg total) by mouth daily Melissa cates Aspirin 81 MG oral Tablet Delayed Response 08-27 12:55: 37 Yes Take 1 tablet every day by oral route. Melissa cates Sitagliptin Phosphate (Febuvia) 50 MG oral Tablet 08-27 00:00: 00 Yes [id number] 50mg Take 1 tablet (50 mg total) by mouth daily Melissa cates Lansoprazol e 30 MG oral Delayed Release Capsule 08-27 00:00: 00 Yes [id number] 30mg Take 1 capsule (30 mg total) by mouth daily Melissa cates Latanoprost 0.005 % ophthalmic Solution 07-28 00:00: 00 Yes [id number] 1[drp] Place 1 drop into both eyes nightly Melissa cates glipiZIDE 10 MG oral Tablet 07-28 00:00: 00 Yes [id number] 10mg Take 1 tablet (10 mg total) by mouth in the morning and 1 tablet (10 mg total) in the evening. Take before meals. Melissa Quigleypawelmayra Flannery darryn Sitagliptin Phosphate (Januvia) 50 MG oral Tablet 07-28 00:00: 00 Yes [id number] 50mg Take 1 tablet (50 mg total) by mouth daily Melissa Rudy Griffin Prudencio darryn Lansoprazol e 30 MG oral Delayed Release Capsule 07-28 00:00: 00 Yes [id number] 30mg Take 1 capsule (30 mg total) by mouth daily Melissa Beatricemayra Elias Uribeyudi darryn Latanoprost 0.005 % ophthalmic Solution 07-28 00:00: 00 Yes [id number] 1[drp] Place 1 drop into both eyes nightly Melissa Sepawelmayra Elias Prudencio darryn glipiZIDE 10 MG oral Tablet 07-28 00:00: 00 Yes [id number] 10mg Take 1 tablet (10 mg total) by mouth in the morning and 1 tablet (10 mg total) in the evening. Take before meals. Melissa Beatricemayra Elias Uribeyudi darryn Sitagliptin Phosphate (Januvia) 50 MG oral Tablet 07-28 00:00: 00 Yes [id number] 50mg Take 1 tablet (50 mg total) by mouth daily Melissa Sepawelmayra Elias Prudencio darryn Lansoprazol e 30 MG oral Delayed Release Capsule 07-28 00:00: 00 Yes [id number] 30mg Take 1 capsule (30 mg total) by mouth daily Melissa Beatricemayra Flannery darryn Latanoprost 0.005 % ophthalmic Solution 07-28 00:00: 00 Yes [id number] 1[drp] Place 1 drop into both eyes nightly Melissa Quigleypawelmayra Flannery darryn glipiZIDE 10 MG oral Tablet 07-28 00:00: 00 Yes [id number] 10mg Take 1 tablet (10 mg total) by mouth in the morning and 1 tablet (10 mg total) in the evening. Take before meals. Melissa Uribeyudi darryn Latanoprost 0.005 % ophthalmic Solution 07-28 00:00: 00 Yes [id number] 1[drp] Place 1 drop into both eyes nightly Melissa cates glipiZIDE 10 MG oral Tablet 07-28 00:00: 00 Yes [id number] 10mg Take 1 tablet (10 mg total) by mouth in the morning and 1 tablet (10 mg total) in the evening. Take before meals. Melissa cates glipiZIDE 10 MG oral Tablet 07-28 00:00: 00 Yes [id number] 10mg Take 1 tablet (10 mg total) by mouth in the morning and 1 tablet (10 mg total) in the evening. Take before meals. Melissa cates glipiZIDE 10 MG oral Tablet 07-28 00:00: 00 Yes [id number] 10mg Take 1 tablet (10 mg total) by mouth in the morning and 1 tablet (10 mg total) in the evening. Take before meals. Melissa cates glipiZIDE 10 MG oral Tablet 07-28 00:00: 00 Yes [id number] 10mg Take 1 tablet (10 mg total) by mouth in the morning and 1 tablet (10 mg total) in the evening. Take before meals. Melissa cates glipiZIDE 10 MG oral Tablet 07-28 00:00: 00 Yes [id number] 10mg Take 1 tablet (10 mg total) by mouth in the morning and 1 tablet (10 mg total) in the evening. Take before meals. Melissa cates glipiZIDE 10 MG oral Tablet 07-28 00:00: 00 Yes [id number] 10mg Take 1 tablet (10 mg total) by mouth in the morning and 1 tablet (10 mg total) in the evening. Take before meals. Melissa cates glipiZIDE 10 MG oral Tablet 07-28 00:00: 00 Yes [id number] 10mg Take 1 tablet (10 mg total) by mouth in the morning and 1 tablet (10 mg total) in the evening. Take before meals. Melissa cates glipiZIDE 10 MG oral Tablet 07-28 00:00: 00 Yes [id number] 10mg Take 1 tablet (10 mg total) by mouth in the morning and 1 tablet (10 mg total) in the evening. Take before meals. Melissa cates glipiZIDE 10 MG oral Tablet 07-28 00:00: 00 Yes [id number] 10mg Take 1 tablet (10 mg total) by mouth in the morning and 1 tablet (10 mg total) in the evening. Take before meals. Melissa cates glipiZIDE 10 MG oral Tablet 07-28 00:00: 00 Yes [id number] 10mg Take 1 tablet (10 mg total) by mouth in the morning and 1 tablet (10 mg total) in the evening. Take before meals. Melissa cates glipiZIDE 10 MG oral Tablet 07-28 00:00: 00 Yes [id number] 10mg Take 1 tablet (10 mg total) by mouth in the morning and 1 tablet (10 mg total) in the evening. Take before meals. Melissa cates glipiZIDE 10 MG oral Tablet 07-28 00:00: 00 Yes [id number] 10mg Take 1 tablet (10 mg total) by mouth in the morning and 1 tablet (10 mg total) in the evening. Take before meals. Melissa cates Sitagliptin Phosphate (Januvia) 50 MG oral Tablet 07-28 00:00: 00 08-27 00:00 :00 No [id number] 50mg Take 1 tablet (50 mg total) by mouth daily Melissa cates Lansoprazol e 30 MG oral Delayed Release Capsule 07-28 00:00: 00 08-27 00:00 :00 No [id number] 30mg Take 1 capsule (30 mg total) by mouth daily Melissa cates Atorvastati n Calcium (Lipitor) 10 MG oral Tablet 07-10 00:00: 00 Yes [id number] 3 10mg Take 1 tablet (10 mg total) by mouth nightly Melissa cates Atorvastati n Calcium (Lipitor) 10 MG oral Tablet 07-10 00:00: 00 Yes [id number] 3 10mg Take 1 tablet (10 mg total) by mouth nightly Melissa cates Atorvastati n Calcium (Lipitor) 10 MG oral Tablet 07-10 00:00: 00 Yes [id number] 3 10mg Take 1 tablet (10 mg total) by mouth nightly Melissa cates Atorvastati n Calcium (Lipitor) 10 MG oral Tablet 07-10 00:00: 00 Yes [id number] 3 10mg Take 1 tablet (10 mg total) by mouth nightly Melissa cates Atorvastati n Calcium (Lipitor) 10 MG oral Tablet 07-10 00:00: 00 Yes [id number] 3 10mg Take 1 tablet (10 mg total) by mouth nightly Melissa cates Bilateral: Bevacizumab (AVASTIN) [100 mg/4 mL], 2.5mg - Physician Administere d ([id number]) 06-29 19:30: 00 06-29 19:28 :00 No [id number] 101 2.5mg Melissa cates Bilateral: Bevacizumab (AVASTIN) [100 mg/4 mL], 2.5mg - Physician Administere d ([id number]) 06-29 19:30: 00 06-29 19:28 :00 No [id number] 101 2.5mg 2.5 mg, Physician Administer ed, ONCE, 1 dose, On Wed06/29/22 at 1430 Melissa cates Pantoprazol e Sodium 40 MG oral Tablet Delayed Response 06-24 10:53: 08 06-24 00:00 :00 No 40mg Take 1 tablet (40 mg total) by mouth daily Melissa cates Lisinopril 5 MG oral Tablet 06-24 10:49: 52 06-24 00:00 :00 No 5mg Take 1 tablet (5 mg total) by mouth daily Melissa cates Pantoprazol e Sodium 40 MG oral Tablet Delayed Response 06-24 00:00: 00 Yes [id number] 40mg Take 1 tablet (40 mg total) by mouth daily Melissa Beatricemayra Elias Prudencio darryn Carvedilol (Coreg) 3.125 MG oral Tablet 06-24 00:00: 00 Yes [id number] 3.125mg Take 1 tablet (3.125 mg total) by mouth in the morning and 1 tablet (3.125 mg total) in the evening. Take with meals. Melissa Beatricemayra Elias Uribeyudi darryn Pantoprazol e Sodium 40 MG oral Tablet Delayed Response 06-24 00:00: 00 Yes [id number] 40mg Take 1 tablet (40 mg total) by mouth daily Melissa Uribeyudi darryn Levothyroxi ne Sodium 75 MCG oral Tablet 06-24 00:00: 00 Yes [id number] 75ug Take 1 tablet (75 mcg total) by mouth daily Melissa Uribeyudi darryn Latanoprost 0.005 % ophthalmic Solution 06-24 00:00: 00 Yes [id number] 1[drp] Place 1 drop into both eyes nightly Melissa cates Carvedilol (Coreg) 3.125 MG oral Tablet 06-24 00:00: 00 Yes [id number] 3.125mg Take 1 tablet (3.125 mg total) by mouth in the morning and 1 tablet (3.125 mg total) in the evening. Take with meals. Melissa Rudy Uribeyudi darryn Pantoprazol e Sodium 40 MG oral Tablet Delayed Response 06-24 00:00: 00 Yes [id number] 40mg Take 1 tablet (40 mg total) by mouth daily Melissa Uribeyudi darryn Levothyroxi ne Sodium 75 MCG oral Tablet 06-24 00:00: 00 Yes [id number] 75ug Take 1 tablet (75 mcg total) by mouth daily Melissa cates Latanoprost 0.005 % ophthalmic Solution 06-24 00:00: 00 Yes [id number] 1[drp] Place 1 drop into both eyes nightly Melissa Uribeyudi darryn Carvedilol (Coreg) 3.125 MG oral Tablet 06-24 00:00: 00 Yes [id number] 3.125mg Take 1 tablet (3.125 mg total) by mouth in the morning and 1 tablet (3.125 mg total) in the evening. Take with meals. Melissa cates Levothyroxi ne Sodium 75 MCG oral Tablet 06-24 00:00: 00 Yes [id number] 75ug Take 1 tablet (75 mcg total) by mouth daily Melissa cates Carvedilol (Coreg) 3.125 MG oral Tablet 06-24 00:00: 00 Yes [id number] 3.125mg Take 1 tablet (3.125 mg total) by mouth in the morning and 1 tablet (3.125 mg total) in the evening. Take with meals. Melissa cates Levothyroxi ne Sodium 75 MCG oral Tablet 06-24 00:00: 00 Yes [id number] 75ug Take 1 tablet (75 mcg total) by mouth daily Melissa cates Carvedilol (Coreg) 3.125 MG oral Tablet 06-24 00:00: 00 Yes [id number] 3.125mg Take 1 tablet (3.125 mg total) by mouth in the morning and 1 tablet (3.125 mg total) in the evening. Take with meals. Melissa cates Levothyroxi ne Sodium 75 MCG oral Tablet 06-24 00:00: 00 Yes [id number] 75ug Take 1 tablet (75 mcg total) by mouth daily Melissa cates Carvedilol (Coreg) 3.125 MG oral Tablet 06-24 00:00: 00 Yes [id number] 3.125mg Take 1 tablet (3.125 mg total) by mouth in the morning and 1 tablet (3.125 mg total) in the evening. Take with meals. Melissa cates Carvedilol (Coreg) 3.125 MG oral Tablet 06-24 00:00: 00 Yes [id number] 3.125mg Take 1 tablet (3.125 mg total) by mouth in the morning and 1 tablet (3.125 mg total) in the evening. Take with meals. Melissa cates Carvedilol (Coreg) 3.125 MG oral Tablet 2022-0 17 00:00: 00 Yes [id number] 3.125mg Take 1 tablet (3.125 mg total) by mouth in the morning and 1 tablet (3.125 mg total) in the evening. Take with meals. Melissa Grant - Externa l Carvedilol (Coreg) 3.125 MG oral Tablet 2022-0 17 00:00: 00 Yes [id number] 3.125mg Take 1 tablet (3.125 mg total) by mouth in the morning and 1 tablet (3.125 mg total) in the evening. Take with meals. Melissa Grant - Externa darryn Carvedilol (Coreg) 3.125 MG oral Tablet 2022-0 17 00:00: 00 Yes [id number] 3.125mg Take 1 tablet (3.125 mg total) by mouth in the morning and 1 tablet (3.125 mg total) in the evening. Take with meals. Melissa Grant - Prudencio cates Carvedilol (Coreg) 3.125 MG oral Tablet 2022-0 17 00:00: 00 Yes [id number] 3.125mg Take 1 tablet (3.125 mg total) by mouth in the morning and 1 tablet (3.125 mg total) in the evening. Take with meals. Melissa Grant - Externa darryn Carvedilol (Coreg) 3.125 MG oral Tablet 2022-0 17 00:00: 00 Yes [id number] 3.125mg Take 1 tablet (3.125 mg total) by mouth in the morning and 1 tablet (3.125 mg total) in the evening. Take with meals. Melissa Quigleyybold - Externa l Carvedilol (Coreg) 3.125 MG oral Tablet 2022-0 -17 00:00: 00 Yes [id number] 3.125mg Take 1 tablet (3.125 mg total) by mouth in the morning and 1 tablet (3.125 mg total) in the evening. Take with meals. Melissa Quigleyybold - Externa l Carvedilol (Coreg) 3.125 MG oral Tablet 3-0 -17 00:00: 00 Yes [id number] 3.125mg Take 1 tablet (3.125 mg total) by mouth in the morning and 1 tablet (3.125 mg total) in the evening. Take with meals. Melissa cates Carvedilol (Coreg) 3.125 MG oral Tablet 06-24 00:00: 00 Yes [id number] 3.125mg Take 1 tablet (3.125 mg total) by mouth in the morning and 1 tablet (3.125 mg total) in the evening. Take with meals. Melissa cates Carvedilol (Coreg) 3.125 MG oral Tablet 06-24 00:00: 00 Yes [id number] 3.125mg Take 1 tablet (3.125 mg total) by mouth in the morning and 1 tablet (3.125 mg total) in the evening. Take with meals. Melissa cates Carvedilol (Coreg) 3.125 MG oral Tablet 06-24 00:00: 00 Yes [id number] 3.125mg Take 1 tablet (3.125 mg total) by mouth in the morning and 1 tablet (3.125 mg total) in the evening. Take with meals. Melissa cates Carvedilol (Coreg) 3.125 MG oral Tablet 06-24 00:00: 00 11-11 00:00 :00 No [id number] 3.125mg Take 1 tablet (3.125 mg total) by mouth in the morning and 1 tablet (3.125 mg total) in the evening. Take with meals. Melissa cates Iron Sucrose (VENOFER) 300 mg in sodium chloride 0.9 % 250 mL infusion 06-22 17:15: 00 06-22 18:20 :00 No [id number] 300mg 300 mg, at 166.7 mL/hr, Administer over 90 Minutes, intravenou s, ONCE, On Wed06/22/22 at 1215, For 1 dose
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 Follow instructio ns provided by provider. Melissa cates Na Sulfate-K Sulfate-Mg Sulf (SUPREP BOWEL PREP KIT) 17.5-3.13-1 .6 GM/177ML oral Solution 06-19 00:00: 00 Yes [id number] Instructio ns provided to patient. Follow instructio ns provided by provider. Melissa cates Na Sulfate-K Sulfate-Mg Sulf (SUPREP BOWEL PREP KIT) 17.5-3.13-1 .6 GM/177ML oral Solution 06-19 00:00: 00 Yes [id number] Instructio ns provided to patient. Follow instructio ns provided by provider. Melissa cates Na Sulfate-K Sulfate-Mg Sulf (SUPREP BOWEL PREP KIT) 17.5-3.13-1 .6 GM/177ML oral Solution 06-19 00:00: 00 Yes [id number] Instructio ns provided to patient. Follow instructio ns provided by provider. Melissa cates Na Sulfate-K Sulfate-Mg Sulf (SUPREP BOWEL PREP KIT) 17.5-3.13-1 .6 GM/177ML oral Solution 06-19 00:00: 00 Yes [id number] Instructio ns provided to patient. Follow instructio ns provided by provider. Melissa Flannery l Na Sulfate-K Sulfate-Mg Sulf (SUPREP BOWEL PREP KIT) 17.5-3.13-1 .6 GM/177ML oral Solution 06-19 00:00: 00 Yes [id number] Instructio ns provided to patient. Follow instructio ns provided by provider. Melissa cates Na Sulfate-K Sulfate-Mg Sulf (SUPREP BOWEL PREP KIT) 17.5-3.13-1 .6 GM/177ML oral Solution 2023-0 -12 00:00: 00 Yes [id number] Instructio ns provided to patient. Follow instructio ns provided by provider. Melissa cates Na Sulfate-K Sulfate-Mg Sulf (SUPREP BOWEL PREP KIT) 17.5-3.13-1 .6 GM/177ML oral Solution 2023-0 -12 00:00: 00 Yes [id number] Instructio ns provided to patient. Follow instructio ns provided by provider. Melissa cates Na Sulfate-K Sulfate-Mg Sulf (SUPREP BOWEL PREP KIT) 17.5-3.13-1 .6 GM/177ML oral Solution 3-0 12 00:00: 00 Yes [id number] Instructio ns provided to patient. Follow instructio ns provided by provider. Melissa cates Na Sulfate-K Sulfate-Mg Sulf (SUPREP BOWEL PREP KIT) 17.5-3.13-1 .6 GM/177ML oral Solution 3-0 12 00:00: 00 Yes [id number] Instructio ns provided to patient. Follow instructio ns provided by provider. Melissa cates Na Sulfate-K Sulfate-Mg Sulf (SUPREP BOWEL PREP KIT) 17.5-3.13-1 .6 GM/177ML oral Solution 3-0 -12 00:00: 00 Yes [id number] Instructio ns provided to patient. Follow instructio ns provided by provider. Melissa cates Na Sulfate-K Sulfate-Mg Sulf (SUPREP BOWEL PREP KIT) 17.5-3.13-1 .6 GM/177ML oral Solution 3-0 12 00:00: 00 Yes [id number] Instructio ns provided to patient. Follow instructio ns provided by provider. Melissa Flannery l Na Sulfate-K Sulfate-Mg Sulf (SUPREP BOWEL PREP KIT) 17.5-3.13-1 .6 GM/177ML oral Solution 2023-0 -12 00:00: 00 Yes [id number] Instructio ns provided to patient. Follow instructio ns provided by provider. Melissa Uribea l Na Sulfate-K Sulfate-Mg Sulf (SUPREP BOWEL PREP KIT) 17.5-3.13-1 .6 GM/177ML oral Solution 0 12 00:00: 00 Yes [id number] Instructio ns provided to patient. Follow instructio ns provided by provider. Melissa cates Na Sulfate-K Sulfate-Mg Sulf (SUPREP BOWEL PREP KIT) 17.5-3.13-1 .6 GM/177ML oral Solution 0 12 00:00: 00 Yes [id number] Instructio ns provided to patient. Follow instructio ns provided by provider. Melissa Flannery l Na Sulfate-K Sulfate-Mg Sulf (SUPREP BOWEL PREP KIT) 17.5-3.13-1 .6 GM/177ML oral Solution 2022-0 06-19 00:00: 00 Yes [id number] Instructio ns provided to patient. Follow instructio ns provided by provider. Melissa cates Na Sulfate-K Sulfate-Mg Sulf (SUPREP BOWEL PREP KIT) 17.5-3.13-1 .6 GM/177ML oral Solution 2022-0 12 00:00: 00 Yes [id number] Instructio ns provided to patient. Follow instructio ns provided by provider. Melissa cates Na Sulfate-K Sulfate-Mg Sulf (SUPREP BOWEL PREP KIT) 17.5-3.13-1 .6 GM/177ML oral Solution 2022-0 12 00:00: 00 Yes [id number] Instructio ns provided to patient. Follow instructio ns provided by provider. Melissa cates Na Sulfate-K Sulfate-Mg Sulf (SUPREP BOWEL PREP KIT) 17.5-3.13-1 .6 GM/177ML oral Solution 12 00:00: 00 11-05 00:00 :00 No [id number] Instructio ns provided to patient. Follow instructio ns provided by provider. Melissa Rudy Flannery darryn Latanoprost 0.005 % ophthalmic Solution 10 00:00: 00 Yes [id number] 1[drp] Place 1 drop into both eyes nightly Melissa cates Latanoprost 0.005 % ophthalmic Solution 06-17 00:00: 00 Yes [id number] 1[drp] Place 1 drop into both eyes nightly Melissa Grant - Externa l Latanoprost 0.005 % ophthalmic Solution 06-17 00:00: 00 Yes [id number] 1[drp] Place 1 drop into both eyes nightly Melissa Barronold - Externa l Latanoprost 0.005 % ophthalmic Solution 06-17 00:00: 00 Yes [id number] 1[drp] Place 1 drop into both eyes nightly Melissa Grant - Externa l Iron Sucrose (VENOFER) 300 mg in sodium chloride 0.9 % 250 mL infusion 06-09 17:15: 00 06-09 18:50 :00 No [id number] 300mg 300 mg, at 166.7 mL/hr, Administer over 90 Minutes, intravenou s, ONCE, On Wed06/09/22 at 1215, For 1 dose
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 &nbs p;May repeat treatment if clinically indicated< br> Melissa Griffin Externa l Furosemide (LASIX) 20 MG oral Tablet 05-30 00:00: 00 Yes Melissa Rudy - Externa l Furosemide (LASIX) 20 MG oral Tablet 05-30 00:00: 00 Yes Melissa Grant - Externa l Furosemide (LASIX) 20 MG oral Tablet 05-30 00:00: 00 Yes Melissa Rudy - Externa l Furosemide (LASIX) 20 MG oral Tablet 05-30 00:00: 00 06-24 00:00 :00 No Melissa Grant - Externa l Iron Sucrose (VENOFER) 300 mg in sodium chloride 0.9 % 250 mL infusion 05-26 16:45: 00 05-26 18:06 :00 No [id number] 300mg 300 mg, at 166.7 mL/hr, Administer over 90 Minutes, intravenou s, ONCE, On Wed05/26/22 at 1145, For 1 dose
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 &nbs p;May repeat treatment if clinically indicated< br> Melissa Seybold - Externa l Multiple Vitamins-Ir on (MULTIVITAM IN PLUS IRON ADULT OR) 05-12 10:53: 52 Yes 1{tbl} Take 1 tablet by mouth daily Melissa Seybold - Externa l Multiple Vitamins-Ir on (MULTIVITAM IN PLUS IRON ADULT OR) 05-12 10:53: 52 Yes 1{tbl} Take 1 tablet by mouth daily Melissa Seybold - Externa l Latanoprost 0.005 % ophthalmic Solution 05-12 00:00: 00 Yes [id number] 1[drp] Place 1 drop into both eyes nightly Melissa Seybold - Externa l Latanoprost 0.005 % ophthalmic Solution 05-12 00:00: 00 Yes [id number] 1[drp] Place 1 drop into both eyes nightly Melissa Seybold - Externa l Multiple Vitamins-Ir on (MULTIVITAM IN PLUS IRON ADULT OR) 05-11 14:21: 53 Yes 1{tbl} Take 1 tablet by mouth daily Melissa Seybold - Externa l Januvia 50 MG oral Tablet 05-10 00:00: 00 Yes [id number] TAKE 1 TABLET BY MOUTH EVERY DAY Melissa Seybold - Externa l Januvia 50 MG oral Tablet 0 05-10 00:00: 00 Yes [id number] TAKE 1 TABLET BY MOUTH EVERY DAY Melissa Seybold - Externa l Januvia 50 MG oral Tablet 0 05-10 00:00: 00 Yes [id number] TAKE 1 TABLET BY MOUTH EVERY DAY Melissa Seybold - Externa l Januvia 50 MG oral Tablet 0 05-10 00:00: 00 Yes [id number] TAKE 1 TABLET BY MOUTH EVERY DAY Melissa Seybold - Externa l Januvia 50 MG oral Tablet 0 05-10 00:00: 00 Yes [id number] TAKE 1 TABLET BY MOUTH EVERY DAY Melissa cates Januvia 50 MG oral Tablet 05-10 00:00: 00 Yes [id number] TAKE 1 TABLET BY MOUTH EVERY DAY Melissa cates Januvia 50 MG oral Tablet 05-10 00:00: 00 Yes [id number] TAKE 1 TABLET BY MOUTH EVERY DAY Melissa cates Januvia 50 MG oral Tablet 05-10 00:00: 00 Yes [id number] TAKE 1 TABLET BY MOUTH EVERY DAY Melissa cates Januvia 50 MG oral Tablet 05-10 00:00: 00 Yes [id number] TAKE 1 TABLET BY MOUTH EVERY DAY Melissa cates Multiple Vitamins-Ir on (MULTIVITAM IN PLUS IRON ADULT OR) 05-08 10:04: 06 Yes 1{tbl} Take 1 tablet by mouth daily Melissa cates Rosuvastati n Calcium 40 MG oral Tablet 05-08 00:00: 00 Yes [id number] 3 40mg Take 1 tablet (40 mg total) by mouth at bedtime Melissa cates glipiZIDE 10 MG oral Tablet 05-08 00:00: 00 Yes [id number] 10mg Take 1 tablet (10 mg total) by mouth in the morning and 1 tablet (10 mg total) in the evening. Take before meals. Melissa cates Sitagliptin Phosphate 50 MG oral Tablet 05-08 00:00: 00 Yes [id number] 50mg Take 1 tablet (50 mg total) by mouth daily Melissa cates Rosuvastati n Calcium 40 MG oral Tablet 05-08 00:00: 00 Yes [id number] 3 40mg Take 1 tablet (40 mg total) by mouth at bedtime Melissa cates glipiZIDE 10 MG oral Tablet 05-08 00:00: 00 Yes [id number] 10mg Take 1 tablet (10 mg total) by mouth in the morning and 1 tablet (10 mg total) in the evening. Take before meals. Melissa cates Rosuvastati n Calcium 40 MG oral Tablet 05-08 00:00: 00 Yes [id number] 3 40mg Take 1 tablet (40 mg total) by mouth at bedtime Melissa cates glipiZIDE 10 MG oral Tablet 05-08 00:00: 00 Yes [id number] 10mg Take 1 tablet (10 mg total) by mouth in the morning and 1 tablet (10 mg total) in the evening. Take before meals. Melissa cates Rosuvastati n Calcium 40 MG oral Tablet 05-08 00:00: 00 Yes [id number] 3 40mg Take 1 tablet (40 mg total) by mouth at bedtime Melissa cates glipiZIDE 10 MG oral Tablet 05-08 00:00: 00 Yes [id number] 10mg Take 1 tablet (10 mg total) by mouth in the morning and 1 tablet (10 mg total) in the evening. Take before meals. Melissa cates Rosuvastati n Calcium 40 MG oral Tablet 05-08 00:00: 00 Yes [id number] 3 40mg Take 1 tablet (40 mg total) by mouth at bedtime Melissa cates glipiZIDE 10 MG oral Tablet 05-08 00:00: 00 Yes [id number] 10mg Take 1 tablet (10 mg total) by mouth in the morning and 1 tablet (10 mg total) in the evening. Take before meals. Melissa cates Rosuvastati n Calcium 40 MG oral Tablet 05-08 00:00: 00 Yes [id number] 3 40mg Take 1 tablet (40 mg total) by mouth at bedtime Melissa Flannery l glipiZIDE 10 MG oral Tablet 05-08 00:00: 00 Yes [id number] 10mg Take 1 tablet (10 mg total) by mouth in the morning and 1 tablet (10 mg total) in the evening. Take before meals. Melissa cates Rosuvastati n Calcium 40 MG oral Tablet 05-08 00:00: 00 Yes [id number] 3 40mg Take 1 tablet (40 mg total) by mouth at bedtime Melissa Flannery l glipiZIDE 10 MG oral Tablet 05-08 00:00: 00 Yes [id number] 10mg Take 1 tablet (10 mg total) by mouth in the morning and 1 tablet (10 mg total) in the evening. Take before meals. Melissa cates glipiZIDE 10 MG oral Tablet 05-08 00:00: 00 Yes [id number] 10mg Take 1 tablet (10 mg total) by mouth in the morning and 1 tablet (10 mg total) in the evening. Take before meals. Melissa cates glipiZIDE 10 MG oral Tablet 05-08 00:00: 00 Yes [id number] 10mg Take 1 tablet (10 mg total) by mouth in the morning and 1 tablet (10 mg total) in the evening. Take before meals. Melissa cates glipiZIDE 10 MG oral Tablet 05-08 00:00: 00 Yes [id number] 10mg Take 1 tablet (10 mg total) by mouth in the morning and 1 tablet (10 mg total) in the evening. Take before meals. Melissa cates Rosuvastati n Calcium 40 MG oral Tablet 05-08 00:00: 00 06-24 00:00 :00 No [id number] 3 40mg Take 1 tablet (40 mg total) by mouth at bedtime Melissa cates Levothyroxi ne Sodium 75 MCG oral Tablet 05-05 00:00: 00 Yes [id number] 75ug Take 1 tablet (75 mcg total) by mouth daily Melissa cates Levothyroxi ne Sodium 75 MCG oral Tablet 05-05 00:00: 00 Yes [id number] 75ug Take 1 tablet (75 mcg total) by mouth daily Melissa cates Levothyroxi ne Sodium 75 MCG oral Tablet 05-05 00:00: 00 Yes [id number] 75ug Take 1 tablet (75 mcg total) by mouth daily Melissa cates Levothyroxi ne Sodium 75 MCG oral Tablet 05-05 00:00: 00 Yes [id number] 75ug Take 1 tablet (75 mcg total) by mouth daily Melissa cates Levothyroxi ne Sodium 75 MCG oral Tablet 05-05 00:00: 00 Yes [id number] 75ug Take 1 tablet (75 mcg total) by mouth daily Melissa cates Levothyroxi ne Sodium 75 MCG oral Tablet 05-05 00:00: 00 Yes [id number] 75ug Take 1 tablet (75 mcg total) by mouth daily Melissa cates Levothyroxi ne Sodium 75 MCG oral Tablet 05-05 00:00: 00 Yes [id number] 75ug Take 1 tablet (75 mcg total) by mouth daily Melissa cates Levothyroxi ne Sodium 75 MCG oral Tablet 05-05 00:00: 00 Yes [id number] 75ug Take 1 tablet (75 mcg total) by mouth daily Melissa cates Levothyroxi ne Sodium 75 MCG oral Tablet 05-05 00:00: 00 Yes [id number] 75ug Take 1 tablet (75 mcg total) by mouth daily Melissa cates Furosemide (LASIX) 20 MG oral Tablet 05-01 13:46: 04 05-01 00:00 :00 No 20mg Take 20 mg by mouth daily Meilssa cates glipiZIDE 10 MG oral Tablet 05-01 13:46: 04 05-01 00:00 :00 No 10mg Take 10 mg by mouth daily (before a meal) Melissa cates glipiZIDE 10 MG oral Tablet 05-01 00:00: 00 Yes [id number] 3 10mg Take 1 tablet (10 mg total) by mouth daily (before a meal) Melissa cates Sitagliptin Phosphate 100 MG oral Tablet 05-01 00:00: 00 Yes [id number] 3 100mg Take 1 tablet (100 mg total) by mouth daily Melissa cates Furosemide (LASIX) 20 MG oral Tablet 05-01 00:00: 00 Yes [id number] 40mg Take 2 tablets (40 mg total) by mouth daily Melissa cates glipiZIDE 10 MG oral Tablet 05-01 00:00: 00 Yes [id number] 3 10mg Take 1 tablet (10 mg total) by mouth daily (before a meal) Melissa cates Sitagliptin Phosphate 100 MG oral Tablet 05-01 00:00: 00 Yes [id number] 3 100mg Take 1 tablet (100 mg total) by mouth daily Melissa cates Furosemide (LASIX) 20 MG oral Tablet 05-01 00:00: 00 Yes [id number] 40mg Take 2 tablets (40 mg total) by mouth daily Melissa cates glipiZIDE 10 MG oral Tablet 05-01 00:00: 00 05-08 00:00 :00 No [id number] 3 10mg Take 1 tablet (10 mg total) by mouth daily (before a meal) Melissa cates Sitagliptin Phosphate 100 MG oral Tablet 05-01 00:00: 00 05-08 00:00 :00 No [id number] 3 100mg Take 1 tablet (100 mg total) by mouth daily Melissa cates Furosemide (LASIX) 20 MG oral Tablet 05-01 00:00: 00 05-08 00:00 :00 No [id number] 40mg Take 2 tablets (40 mg total) by mouth daily Melissa cates Pantoprazol e Sodium 40 MG oral Tablet Delayed Response 3- 00:00: 00 Yes 40mg Take 40 mg by mouth daily Melissa cates Pantoprazol e Sodium 40 MG oral Tablet Delayed Response 0 3- 00:00: 00 Yes 40mg Take 40 mg by mouth daily Melissa cates Pantoprazol e Sodium 40 MG oral Tablet Delayed Response 0 3- 00:00: 00 Yes 40mg Take 1 tablet (40 mg total) by mouth daily Melissa cates Pantoprazol e Sodium 40 MG oral Tablet Delayed Response 3- 00:00: 00 Yes 40mg Take 1 tablet (40 mg total) by mouth daily Melissa cates Pantoprazol e Sodium 40 MG oral Tablet Delayed Response 3 00:00: 00 Yes 40mg Take 1 tablet (40 mg total) by mouth daily Melissa cates Pantoprazol e Sodium 40 MG oral Tablet Delayed Response 3 00:00: 00 Yes 40mg Take 40 mg by mouth daily Melissa cates Pantoprazol e Sodium 40 MG oral Tablet Delayed Response 04-12 00:00: 00 06-19 00:00 :00 No 40mg Take 1 tablet (40 mg total) by mouth daily Melissa cates Ferrous Sulfate (Iron) 325 (65 Fe) MG oral Tablet 04-09 00:00: 00 Yes [id number] 325mg Take 1 tablet (325 mg total) by mouth 2 times daily Melissa cates Ferrous Sulfate (Iron) 325 (65 Fe) MG oral Tablet 04-09 00:00: 00 Yes [id number] 325mg Take 1 tablet (325 mg total) by mouth 2 times daily Melissa cates Ferrous Sulfate (Iron) 325 (65 Fe) MG oral Tablet 04-09 00:00: 00 Yes [id number] 325mg Take 1 tablet (325 mg total) by mouth 2 times daily Melissa cates Ferrous Sulfate (Iron) 325 (65 Fe) MG oral Tablet 04-09 00:00: 00 05-08 00:00 :00 No [id number] 325mg Take 1 tablet (325 mg total) by mouth 2 times daily Melissa cates Levothyroxi ne Sodium 50 MCG oral Tablet 04-07 00:00: 00 Yes [id number] 50ug Take 1 tablet (50 mcg total) by mouth daily Melissa cates Levothyroxi ne Sodium 50 MCG oral Tablet 04-07 00:00: 00 Yes [id number] 50ug Take 1 tablet (50 mcg total) by mouth daily Melissa cates ASPIRIN 81 OR 2-24 15:32: 05 04-03 00:00 :00 No Take by mouth Melissa cates Furosemide (LASIX) 20 MG oral Tablet 04-03 15:15: 06 Yes 20mg Take 20 mg by mouth daily Melissa cates Furosemide (LASIX) 20 MG oral Tablet 04-03 15:15: 06 Yes 20mg Take 20 mg by mouth daily Melissa cates glipiZIDE 10 MG oral Tablet 04-03 15:15: 04 Yes 10mg Take 10 mg by mouth daily (before a meal) Melissa cates glipiZIDE 10 MG oral Tablet 04-03 15:15: 04 Yes 10mg Take 10 mg by mouth daily (before a meal) Melissa cates Levothyroxi ne Sodium 25 MCG oral Tablet 04-03 15:14: 40 Yes 25ug Take 25 mcg by mouth daily Melissa cates Aspirin (Aspirin 81) 81 MG oral Tablet Delayed Response 04-03 00:00: 00 Yes [id number] 81mg Take 1 tablet (81 mg total) by mouth daily Melissa cates Aspirin (Aspirin 81) 81 MG oral Tablet Delayed Response 04-03 00:00: 00 Yes [id number] 81mg Take 1 tablet (81 mg total) by mouth daily Melissa Uribea darryn Aspirin (Aspirin 81) 81 MG oral Tablet Delayed Response 04-03 00:00: 00 Yes [id number] 81mg Take 1 tablet (81 mg total) by mouth daily Melissa Uribea darryn Aspirin (Aspirin 81) 81 MG oral Tablet Delayed Response 04-03 00:00: 00 Yes [id number] 81mg Take 1 tablet (81 mg total) by mouth daily Melissa Uribea darryn Aspirin (Aspirin 81) 81 MG oral Tablet Delayed Response 04-03 00:00: 00 05-08 00:00 :00 No [id number] 81mg Take 1 tablet (81 mg total) by mouth daily Melissa cates SITagliptin (JANUVIA) 100 mg tablet 09-30 16:27: 53 09-30 00:00 :00 No 100mg Take 100 mg by mouth in the morning. [facility] glipiZIDE XL (GLUCOTROL XL) 10 mg 24 hr tablet 09-30 16:27: 53 09-30 00:00 :00 No 10mg Take 10 mg by mouth in the morning and 10 mg in the evening. [facility] rosuvastati n 20 mg tablet 09-30 16:17: 42 09-30 00:00 :00 No 20mg Take 20 mg by mouth at bedtime. [facility] lisinopriL 5 mg tablet 09-30 16:17: 29 09-30 00:00 :00 No 5mg Take 5 mg by mouth in the morning. [facility] furosemide 20 mg tablet 09-30 15:17: 03 Yes 20mg Take 20 mg by mouth in the morning. [facility] esomeprazol e (NEXIUM) 20 mg capsule 09-30 15:17: 03 Yes 20mg Take 20 mg by mouth daily before a meal. [facility] LO ASPIRIN ORAL 09-30 15:17: 03 Yes Take by mouth. [facility] furosemide 20 mg tablet 09-30 15:17: 03 Yes 20mg Take 20 mg by mouth in the morning. [facility] esomeprazol e (NEXIUM) 20 mg capsule 09-30 15:17: 03 Yes 20mg Take 20 mg by mouth daily before a meal. [facility] LO ASPIRIN ORAL 09-30 15:17: 03 Yes Take by mouth. [facility] furosemide 20 mg tablet 09-30 15:17: 03 Yes 20mg Take 20 mg by mouth in the morning. [facility] esomeprazol e (NEXIUM) 20 mg capsule 09-30 15:17: 03 Yes 20mg Take 20 mg by mouth daily before a meal. [facility] LO ASPIRIN ORAL 09-30 15:17: 03 Yes Take by mouth. [facility] Lisinopril 5 MG oral Tablet 09-30 00:00: 00 Yes 5mg Take 5 mg by mouth daily Melissa Grant - Jojoa darryn Rosuvastati n Calcium 20 MG oral Tablet 09-30 00:00: 00 Yes 40mg Take 40 mg by mouth at bedtime Melissa Grant - Jojoa darryn Sitagliptin Phosphate 100 MG oral Tablet 09-30 00:00: 00 Yes 100mg Take 100 mg by mouth daily Melissa cates Lisinopril 5 MG oral Tablet 09-30 00:00: 00 Yes 5mg Take 5 mg by mouth daily Melissa Grant - Jojoa darryn Rosuvastati n Calcium 20 MG oral Tablet 09-30 00:00: 00 Yes 40mg Take 40 mg by mouth at bedtime Melissa Uribea darryn Sitagliptin Phosphate 100 MG oral Tablet 09-30 00:00: 00 Yes 100mg Take 100 mg by mouth daily Melissa cates Lisinopril 5 MG oral Tablet 09-30 00:00: 00 Yes 5mg Take 5 mg by mouth daily Melissa Grant - Jojoa darryn Rosuvastati n Calcium 20 MG oral Tablet 09-30 00:00: 00 Yes 40mg Take 40 mg by mouth at bedtime Melissa Grant - Jojoa darryn Lisinopril 5 MG oral Tablet 09-30 00:00: 00 Yes 5mg Take 5 mg by mouth daily Melissa Grant - Jojoa darryn Rosuvastati n Calcium 20 MG oral Tablet 09-30 00:00: 00 Yes 40mg Take 40 mg by mouth at bedtime Melissa Grant - Jojoa darryn lisinopriL 5 mg tablet 09-30 00:00: 00 Yes [id number] 5mg Take 1 tablet by mouth in the morning. [facility] gabapentin 300 mg capsule 09-30 00:00: 00 Yes [id number] 300mg Take 1 capsule by mouth in the morning and 1 capsule at noon and 1 capsule in the evening. [facility] rosuvastati n 20 mg tablet 09-30 00:00: 00 Yes [id number] 20mg Take 1 tablet by mouth at bedtime. [facility] amitriptyli ne 25 mg tablet 09-30 00:00: 00 Yes [id number] 25mg Take 1 tablet by mouth at bedtime. [facility] SITagliptin (JANUVIA) 100 mg tablet 09-30 00:00: 00 Yes [id number] 100mg Take 1 tablet by mouth in the morning. [facility] lisinopriL 5 mg tablet 09-30 00:00: 00 Yes [id number] 5mg Take 1 tablet by mouth in the morning. [facility] gabapentin 300 mg capsule 09-30 00:00: 00 Yes [id number] 300mg Take 1 capsule by mouth in the morning and 1 capsule at noon and 1 capsule in the evening. [facility] rosuvastati n 20 mg tablet 09-30 00:00: 00 Yes [id number] 20mg Take 1 tablet by mouth at bedtime. [facility] amitriptyli ne 25 mg tablet 09-30 00:00: 00 Yes [id number] 25mg Take 1 tablet by mouth at bedtime. [facility] SITagliptin (JANUVIA) 100 mg tablet 09-30 00:00: 00 Yes [id number] 100mg Take 1 tablet by mouth in the morning. [facility] lisinopriL 5 mg tablet 09-30 00:00: 00 Yes [id number] 5mg Take 1 tablet by mouth in the morning. [facility] gabapentin 300 mg capsule 09-30 00:00: 00 Yes [id number] 300mg Take 1 capsule by mouth in the morning and 1 capsule at noon and 1 capsule in the evening. [facility] rosuvastati n 20 mg tablet 09-30 00:00: 00 Yes [id number] 20mg Take 1 tablet by mouth at bedtime. [facility] SITagliptin (JANUVIA) 100 mg tablet 09-30 00:00: 00 Yes [id number] 100mg Take 1 tablet by mouth in the morning. [facility] amitriptyli ne 25 mg tablet 09-30 00:00: 00 02-24 00:00 :00 No [id number] 25mg Take 1 tablet by mouth at bedtime. [facility] Lisinopril 5 MG oral Tablet 09-30 00:00: 00 05-08 00:00 :00 No 5mg Take 5 mg by mouth daily Melissa cates Rosuvastati n Calcium 20 MG oral Tablet 09-30 00:00: 00 05-08 00:00 :00 No 40mg Take 40 mg by mouth at bedtime Melissa cates Sitagliptin Phosphate 100 MG oral Tablet 09-30 00:00: 00 05-01 00:00 :00 No 100mg Take 100 mg by mouth daily Melissa cates glipiZIDE XL (GLUCOTROL XL) 10 mg 24 hr tablet 09-30 00:00: 00 03-30 05:59 :00 No [id number] 10mg Take 1 tablet by mouth in the morning and 1 tablet in the evening. Do all this for 180 days. [facility] glipiZIDE XL (GLUCOTROL XL) 10 mg 24 hr tablet 09-30 00:00: 00 03-30 05:59 :00 No [id number] 10mg Take 1 tablet by mouth in the morning and 1 tablet in the evening. Do all this for 180 days. [facility] furosemide 20 mg tablet 6-16 00:00: 00 No 1mg furosemide 20 mg tablet 6-16 00:00: 00 No 1mg furosemide 20 mg tablet 5-03 00:00: 00 No 1mg furosemide 20 mg tablet 5-03 00:00: 00 No 1mg lisinopril 5 mg tablet 4-07 00:00: 00 No 1mg Januvia 100 mg tablet 2022-0 4-07 00:00: 00 No 1mg glipizide ER 10 mg tablet, extended release 24 hr 2022-0 4-07 00:00: 00 No 1mg lisinopril 5 mg tablet 2022-0 4-07 00:00: 00 No 1mg Januvia 100 mg tablet 2022-0 4-07 00:00: 00 No 1mg glipizide ER 10 mg tablet, extended release 24 hr 2022-0 4-07 00:00: 00 No 1mg Dose Unknown 2022-0 4-01 00:00: 00 No Dose Unknown 2022-0 4-01 00:00: 00 No Dose Unknown 2022-0 4-01 00:00: 00 No Dose Unknown 2022-0 4-01 00:00: 00 No Dose Unknown 2022-0 4-01 00:00: 00 No Dose Unknown 2022-0 4-01 00:00: 00 No Dose Unknown 2022-0 4-01 00:00: 00 No Dose Unknown 2022-0 4-01 00:00: 00 No Dose Unknown 2022-0 4-01 00:00: 00 No Dose Unknown 2022-0 4-01 00:00: 00 No Dose Unknown 2022-0 4-01 00:00: 00 No Dose Unknown 2022-0 4-01 00:00: 00 No Dose Unknown 2022-0 4-01 00:00: 00 No Dose Unknown 2022-0 4-01 00:00: 00 No Dose Unknown 2022-0 4-01 00:00: 00 No Dose Unknown 2022-0 4-01 00:00: 00 No Dose Unknown 2022-0 4-01 00:00: 00 No Dose Unknown 2022-0 4-01 00:00: 00 No Dose Unknown 2022-0 4-01 00:00: 00 No Dose Unknown 2022-0 4-01 00:00: 00 No Dose Unknown 2022-0 4-01 00:00: 00 No Dose Unknown 2022-0 4-01 00:00: 00 No Dose Unknown 2022-0 4-01 00:00: 00 No Dose Unknown 2022-0 4-01 00:00: 00 No Dose Unknown 2022-0 4-01 00:00: 00 No Dose Unknown 2022-0 4-01 00:00: 00 No Dose Unknown 4 00:00: 00 No Dose Unknown 4 00:00: 00 No Dose Unknown 05-09 00:00: 00 No Dose Unknown 05-09 00:00: 00 No ondansetron 4 mg disintegrat ing tablet 3- 00:00: 00 Yes [id number] 4mg Take 1 tablet by mouth every 8 (eight) hours as needed for Nausea and Vomiting (N/V). [facility] ondansetron 4 mg disintegrat ing tablet 3 00:00: 00 Yes [id number] 4mg Take 1 tablet by mouth every 8 (eight) hours as needed for Nausea and Vomiting (N/V). [facility] ondansetron 4 mg disintegrat ing tablet 04-08 00:00: 00 Yes [id number] 4mg Take 1 tablet by mouth every 8 (eight) hours as needed for Nausea and Vomiting (N/V). [facility] lisinopril 5 mg tablet 2020-02 2 00:00: 00 No 1mg rosuvastati n 20 mg tablet 2020-02 2 00:00: 00 No 1mg furosemide 20 mg tablet 2020-02 2 00:00: 00 No 1mg lisinopril 5 mg tablet 2020-02 2 00:00: 00 No 1mg rosuvastati n 20 mg tablet 2020-02 2- 00:00: 00 No 1mg furosemide 20 mg tablet 2020-02 2 00:00: 00 No 1mg Januvia 50 mg tablet 10-02 00:00: 00 No 1mg glipizide ER 10 mg tablet, extended release 24 hr 10-02 00:00: 00 No 1mg Dose Unknown 10-02 00:00: 00 No Macrobid 100 mg capsule 8 00:00: 00 No 1mg Januvia 50 mg tablet 8 00:00: 00 No 1mg glipizide ER 10 mg tablet, extended release 24 hr 10-02 00:00: 00 No 1mg Dose Unknown 10-02 00:00: 00 No Macrobid 100 mg capsule 10-02 00:00: 00 No 1mg Macrobid 100 mg capsule 07-15 00:00: 00 No 1mg Macrobid 100 mg capsule 07-15 00:00: 00 No 1mg ibuprofen 600 mg tablet 07-01 00:00: 00 No 1mg ibuprofen 600 mg tablet 07-01 00:00: 00 No 1mg glipizide 5 mg tablet 06-28 00:00: 00 No 1mg Januvia 50 mg tablet 06-28 00:00: 00 No 1mg Bactrim DS 800 mg-160 mg tablet 06-28 00:00: 00 No 1mg glipizide ER 10 mg tablet, extended release 24 hr 06-28 00:00: 00 No 1mg Dose Unknown 06-28 00:00: 00 No glipizide 5 mg tablet 06-28 00:00: 00 No 1mg Januvia 50 mg tablet 06-28 00:00: 00 No 1mg Bactrim DS 800 mg-160 mg tablet 06-28 00:00: 00 No 1mg glipizide ER 10 mg tablet, extended release 24 hr 06-28 00:00: 00 No 1mg Dose Unknown 06-28 00:00: 00 No sulfamethox azole-trime thoprim 800-160 mg per tablet 05-08 00:00: 00 09-30 00:00 :00 No [id number] 9109 1{tbl} Take 1 tablet by mouth every 12 (twelve) hours. [facility] glipiZIDE 5 mg tablet 05-08 00:00: 00 09-30 00:00 :00 No [id number] 5mg Take 1 tablet by mouth daily. [facility] levothyroxi ne 25 mcg tablet 08-19 00:00: 00 No 1mcg glipizide 5 mg tablet 08-19 00:00: 00 No 1mg lovastatin 10 mg tablet 08-19 00:00: 00 No 1mg lovastatin 10 mg tablet 08-19 00:00: 00 No 1mg levothyroxi ne 25 mcg tablet 08-19 00:00: 00 No 1mcg levothyroxi ne 25 mcg tablet 08-19 00:00: 00 No 1mcg glipizide 5 mg tablet 08-19 00:00: 00 No 1mg lovastatin 10 mg tablet 08-19 00:00: 00 No 1mg lovastatin 10 mg tablet 08-19 00:00: 00 No 1mg levothyroxi ne 25 mcg tablet 08-19 00:00: 00 No 1mcg aspirin 81 mg tablet,gokul yed release 07-30 00:00: 00 No 1mg metformin 1,000 mg tablet 07-30 00:00: 00 No 1mg metformin 1,000 mg tablet 07-30 00:00: 00 No 1mg aspirin 81 mg tablet,gokul yed release 07-30 00:00: 00 No 1mg metformin 1,000 mg tablet 07-30 00:00: 00 No 1mg metformin 1,000 mg tablet 07-30 00:00: 00 No 1mg Immunizations Ordered Immunization Name Filled Immunization Name Date Status Comments Source COVID-19 VACCINE MODERNA 6MONTHS-5YEARS 2021-01-22 00:00:00 Completed Melissa Griffin External COVID-19 VACCINE MODERNA 6MONTHS-5YEARS 2021-01-22 00:00:00 Completed Melissa Griffin External COVID-19 VACCINE MODERNA 6MONTHS-5YEARS 2021-01-22 00:00:00 Completed Melissa Griffin External COVID-19 VACCINE MODERNA 6MONTHS-5YEARS 2021-01-22 00:00:00 Completed Melissa Ugalde COVID-19 VACCINE MODERNA 6MONTHS-5YEARS 2021-01-22 00:00:00 Completed Melissa Ugalde Moderna COVID-19 Vaccine 2021-01-22 00:00:00 Completed Moderna COVID-19 Vaccine 2021-01-22 00:00:00 Completed Covid-19 Vaccine Moderna (Spikevax), Mrna-lnp, Isaiah Protein, Pf 2020-07-29 00:00:00 Completed Melissa Seybold - External Covid-19 Vaccine Moderna (Spikevax), Mrna-lnp, Isaiah Protein, Pf 2020-07-29 00:00:00 Completed Melissa Seybold - External Covid-19 Vaccine Moderna (Spikevax), Mrna-lnp, Isaiah Protein, Pf 2020-07-29 00:00:00 Completed Melissa Seybold - External Covid-19 Vaccine Moderna (Spikevax), Mrna-lnp, Isaiah Protein, Pf 2020-07-29 00:00:00 Completed Melissa Seybold - External Covid-19 Vaccine Moderna (Spikevax), Mrna-lnp, Isaiah Protein, Pf 2020-07-29 00:00:00 [facility] Moderna (Spikevax), Mrna-lnp, Isaiah Protein, Pf 2020-07-29 00:00:00 [facility] Moderna (Spikevax), Mrna-lnp, Isaiah Protein, Pf 2020-07-29 00:00:00 Completed Melissa Seold - External Covid-19 Vaccine Moderna (Spikevax), Mrna-lnp, Isaiah Protein, Pf 2020-07-29 00:00:00 Completed Melissa Seybold - External Covid-19 Vaccine Moderna (Spikevax), Mrna-lnp, Isaiah Protein, Pf 2020-07-29 00:00:00 Completed Melissa Seybold - External Covid-19 Vaccine Moderna (Spikevax), Mrna-lnp, Isaiah Protein, Pf 2020-07-29 00:00:00 Completed Melissa Seybold - External Covid-19 Vaccine Moderna (Spikevax), Mrna-lnp, Isaiah Protein, Pf 2020-07-29 00:00:00 Completed Melissa Seybold - External Covid-19 Vaccine Moderna (Spikevax), Mrna-lnp, Isaiah Protein, Pf 2020-07-29 00:00:00 Completed Melissa Seybold - External Covid-19 Vaccine Moderna (Spikevax), Mrna-lnp, Isaiah Protein, Pf 2020-07-29 00:00:00 Completed Melissa Seybold - External COVID-19 VACCINE MODERNA 6MONTHS-5YEARS 2020-07-29 00:00:00 Completed Melissa Seybold - External Covid-19 Vaccine Moderna (Spikevax), Mrna-lnp, Isaiah Protein, Pf 2020-07-29 00:00:00 Completed Melissa Seybold - External COVID-19 VACCINE MODERNA 6MONTHS-5YEARS 2020-07-29 00:00:00 Completed Melissa Seybold - External Covid-19 Vaccine Moderna (Spikevax), Mrna-lnp, Isaiah Protein, Pf 2020-07-29 00:00:00 Completed Melissa Seybold - External COVID-19 VACCINE MODERNA 6MONTHS-5YEARS 2020-07-29 00:00:00 Completed Melissa Quigleyybold - External Covid-19 Vaccine Moderna (Spikevax), Mrna-lnp, Isaiah Protein, Pf 2020-07-29 00:00:00 Completed Melissa Seybold - External COVID-19 VACCINE MODERNA 6MONTHS-5YEARS 2020-07-29 00:00:00 Completed Melissa Quigleyybold - External Covid-19 Vaccine Moderna (Spikevax), Mrna-lnp, Isaiah Protein, Pf 2020-07-29 00:00:00 Completed Melissa Seybold - External COVID-19 VACCINE MODERNA 6MONTHS-5YEARS 2020-07-29 00:00:00 Completed Melissa Seybold - External Moderna COVID-19 Vaccine 2020-07-29 00:00:00 Completed Moderna COVID-19 Vaccine 2020-07-29 00:00:00 Completed COVID-19 VACCINE MODERNA 6MONTHS-5YEARS 2020-06-28 00:00:00 Completed Melissa Seybold - External COVID-19 VACCINE MODERNA 6MONTHS-5YEARS 2020-06-28 00:00:00 Completed Melissa Seybold - External COVID-19 VACCINE MODERNA 6MONTHS-5YEARS 2020-06-28 00:00:00 Completed Melissa Seybold - External COVID-19 VACCINE MODERNA 6MONTHS-5YEARS 2020-06-28 00:00:00 Completed Melissa Seybold - External COVID-19 VACCINE MODERNA 6MONTHS-5YEARS 2020-06-28 00:00:00 Completed Melissa Seybold - External Moderna COVID-19 Vaccine 2020-06-28 00:00:00 Completed Moderna COVID-19 Vaccine 2020-06-28 00:00:00 Completed Influenza, Seasonal, Injectable, Preservative Free 2017-11-27 00:00:00 Completed Melissa Seybold - External Influenza, Seasonal, Injectable, Preservative Free 2017-11-27 00:00:00 Completed Melissa Seybold - External Influenza, Seasonal, Injectable, Preservative Free 2017-11-27 00:00:00 Completed Melissa Seybold - External Influenza, Seasonal, Injectable, Preservative Free 2017-11-27 00:00:00 Completed Melissa Seybold - External Influenza, Seasonal, Injectable, Preservative Free 2017-11-27 00:00:00 Completed Melissa Seybold - External Influenza, Seasonal, Injectable, Preservative Free 2017-11-27 00:00:00 Completed Melissa Seybold - External Influenza, Seasonal, Injectable, Preservative Free 2017-11-27 00:00:00 Completed Melissa Seybold - External Influenza, Seasonal, Injectable, Preservative Free 2017-11-27 00:00:00 Completed Melissa Seybold - External Influenza, Seasonal, Injectable, Preservative Free 2017-11-27 00:00:00 Completed Melissa Seybold - External Influenza, Seasonal, Injectable, Preservative Free 2017-11-27 00:00:00 Completed Melissa Seybold - External Influenza, Seasonal, Injectable, Preservative Free 2017-11-27 00:00:00 Completed Melissa Seybold - External Influenza, Seasonal, Injectable, Preservative Free 2017-11-27 00:00:00 Completed Melissa Seybold - External Influenza, Seasonal, Injectable, Preservative Free 2017-11-27 00:00:00 Completed Melissa Quigleyybold - External Influenza Nasal, Unspecified Formulation 2017-11-27 00:00:00 Completed Melissa Seybold - External Influenza, Seasonal, Injectable, Preservative Free 2017-11-27 00:00:00 Completed Melissa Seybold - External Influenza Nasal, Unspecified Formulation 2017-11-27 00:00:00 Completed Melissa Seybold - External Influenza, Seasonal, Injectable, Preservative Free 2017-11-27 00:00:00 Completed Melissa Seybold - External Influenza Nasal, Unspecified Formulation 2017-11-27 00:00:00 Completed Melissa Seybold - External Influenza, Seasonal, Injectable, Preservative Free 2017-11-27 00:00:00 Completed Melissa Seybold - External Influenza Nasal, Unspecified Formulation 2017-11-27 00:00:00 Completed Melissa Seybold - External Influenza, Seasonal, Injectable, Preservative Free 2017-11-27 00:00:00 Completed Melissa Seybold - External Influenza Nasal, Unspecified Formulation 2017-11-27 00:00:00 Completed Melissa Seybold - External Covid-19 Vaccine Moderna (Spikevax), Mrna-lnp, Isaiah Protein, Pf Unknown Completed Melissa Seybold - External COVID-19 VACCINE MODERNA 6MONTHS-5YEARS Unknown Completed Melissa Seybol d - External COVID-19 VACCINE MODERNA 6MONTHS-5YEARS Unknown Completed Melissa Seybol d - External COVID-19 VACCINE MODERNA 6MONTHS-5YEARS Unknown Completed Melissa Seybol d - External Influenza Nasal, Unspecified Formulation Unknown Completed Melissa Seybold - External Covid-19 Vaccine Moderna (Spikevax), Mrna-lnp, Isaiah Protein, Pf Unknown Completed Melissa Seybold - External Covid-19 Vaccine Moderna (Spikevax), Mrna-lnp, Isaiah Protein, Pf Unknown Completed Melissa Seybold - External Influenza, Seasonal, Injectable, Preservative Free Unknown Completed Melissa Sey bold - External Covid-19 Vaccine Moderna (Spikevax), Mrna-lnp, Isaiah Protein, Pf Unknown Completed Melissa Seybold - External COVID-19 VACCINE MODERNA 6MONTHS-5YEARS Unknown Completed Melissa Seybol d - External COVID-19 VACCINE MODERNA 6MONTHS-5YEARS Unknown Completed Melissa Seybol d - External COVID-19 VACCINE MODERNA 6MONTHS-5YEARS Unknown Completed Melissa Seybol d - External Influenza Nasal, Unspecified Formulation Unknown Completed Melissa Seybold - External Covid-19 Vaccine Moderna (Spikevax), Mrna-lnp, Isaiah Protein, Pf Unknown Completed Melissa Seybold - External Covid-19 Vaccine Moderna (Spikevax), Mrna-lnp, Isaiah Protein, Pf [facility], Seasonal, Injectable, Preservative Free [facility] Cov[facility] Vaccine Moderna (Spikevax), Mrna-lnp, Isaiah Protein, Pf Unknown Completed Melissa Seybold - External COVID-19 VACCINE MODERNA 6MONTHS-5YEARS Unknown Completed Melissa Seybol d - External COVID-19 VACCINE MODERNA 6MONTHS-5YEARS Unknown Completed Melissa Seol d - External COVID-19 VACCINE MODERNA 6MONTHS-5YEARS Unknown [facility] Influ[facility] Nasal, Unspecified Formulation Unknown [facility] Influenza, Seasonal, Injectable, Preservative Free Unknown Completed [facility] bold - External Covid-19 Vaccine Moderna (Spikevax), Mrna-lnp, Isaiah Protein, Pf Unknown [facility] COVID-19 VACCINE MODERNA 6MONTHS-5YEARS Unknown Completed Melissa Seybol d - External COVID-19 VACCINE MODERNA 6MONTHS-5YEARS Unknown Completed [facility] COVID-19 VACCINE MODERNA 6MONTHS-5YEARS Unknown Completed Melissa Seybol d - External Influenza Nasal, Unspecified Formulation Unknown Completed Melissa Seybold - External Influenza, Seasonal, Injectable, Preservative Free Unknown Completed [facility] bold - External Covid-19 Vaccine Moderna (Spikevax), Mrna-lnp, Isaiah Protein, Pf Unknown Completed Melissa Seybold - External COVID-19 VACCINE MODERNA 6MONTHS-5YEARS Unknown Completed Melissa Seybol d - External COVID-19 VACCINE MODERNA 6MONTHS-5YEARS Unknown Completed Melissa Seybol d - External COVID-19 VACCINE MODERNA 6MONTHS-5YEARS Unknown Completed Melissa Seybol d - External Influenza Nasal, Unspecified Formulation Unknown Completed Melissa Seybold - External Influenza, Seasonal, Injectable, Preservative Free Unknown Completed [facility] bold - External Covid-19 Vaccine Moderna (Spikevax), Mrna-lnp, Isaiah Protein, Pf Unknown Completed Melissa Seybold - External COVID-19 VACCINE MODERNA 6MONTHS-5YEARS Unknown Completed Melissa Seybol d - External COVID-19 VACCINE MODERNA 6MONTHS-5YEARS Unknown Completed Melissa Seybol d - External COVID-19 VACCINE MODERNA 6MONTHS-5YEARS Unknown Completed Melissa Seybol d - External Influenza Nasal, Unspecified Formulation Unknown Completed Melissa Seybold - External Influenza, Seasonal, Injectable, Preservative Free Unknown Completed [facility] bold - External Covid-19 Vaccine Moderna (Spikevax), Mrna-lnp, Isaiah Protein, Pf Unknown Completed Melissa Seybold - External COVID-19 VACCINE MODERNA 6MONTHS-5YEARS Unknown [facility] COVID-19 VACCINE MODERNA 6MONTHS-5YEARS Unknown Completed [facility] - External COVID-19 VACCINE MODERNA 6MONTHS-5YEARS Unknown Completed [facility] - External Influenza Nasal, Unspecified Formulation Unknown [facility] Influenza, Seasonal, Injectable, Preservative Free Unknown Completed [facility] bold - External Covid-19 Vaccine Moderna (Spikevax), Mrna-lnp, Isaiah Protein, Pf Unknown Completed Melissa Seybold - External COVID-19 VACCINE MODERNA 6MONTHS-5YEARS Unknown Completed Melissa Seybol d - External COVID-19 VACCINE MODERNA 6MONTHS-5YEARS Unknown Completed Melissa Seybol d - External COVID-19 VACCINE MODERNA 6MONTHS-5YEARS Unknown Completed Melissa Seybol d - External Influenza Nasal, Unspecified Formulation Unknown Completed Melissa Seybold - External Influenza, Seasonal, Injectable, Preservative Free Unknown Completed [facility] bold - External Covid-19 Vaccine Moderna (Spikevax), Mrna-lnp, Isaiah Protein, Pf Unknown Completed Melissa Seybold - External COVID-19 VACCINE MODERNA 6MONTHS-5YEARS Unknown Completed Melissa Seybol d - External COVID-19 VACCINE MODERNA 6MONTHS-5YEARS Unknown [facility]pleted [facility] COVID-19 VACCINE MODERNA 6MONTHS-5YEARS Unknown Completed [facility] - External Influenza Nasal, Unspecified Formulation Unknown Completed [facility] - External Influenza, Seasonal, Injectable, Preservative Free Unknown Completed [facility] - External Covid-19 Vaccine Moderna (Spikevax), Mrna-lnp, Isaiah Protein, Pf Unknown Completed [facility] - External COVID-19 VACCINE MODERNA 6MONTHS-5YEARS Unknown Completed [facility] COVID-19 VACCINE MODERNA 6MONTHS-5YEARS Unknown Completed [facility] - External COVID-19 VACCINE MODERNA 6MONTHS-5YEARS Unknown Completed [facility] - External Influenza Nasal, Unspecified Formulation Unknown Completed [facility] - External Influenza, Seasonal, Injectable, Preservative Free Unknown Completed [facility] - External Covid-19 Vaccine Moderna (Spikevax), Mrna-lnp, Isaiah Protein, Pf Unknown Completed [facility] External COVID-19 VACCINE MODERNA 6MONTHS-5YEARS Unknown Completed [facility] d - External COVID-19 VACCINE MODERNA 6MONTHS-5YEARS Unknown Completed [facility] COVID[facility]19 VACCINE MODERNA 6MONTHS-5YEARS Unknown Completed [facility] - External Influenza Nasal, Unspecified Formulation Unknown Completed [facility] External Covid-19 Vaccine Moderna (Spikevax), Mrna-lnp, Isaiah Protein, Pf Unknown Completed [facility] External Covid-19 Vaccine Moderna (Spikevax), Mrna-lnp, Isaiah Protein, Pf Unknown Completed [facility] - External Influenza, Seasonal, Injectable, Preservative Free Unknown Completed [facility] - External Covid-19 Vaccine Moderna (Spikevax), Mrna-lnp, Isaiah Protein, Pf Unknown [facility] COVID-19 VACCINE MODERNA 6MONTHS-5YEARS Unknown Completed [facility] - External COVID-19 VACCINE MODERNA 6MONTHS-5YEARS Unknown Completed [facility] - External COVID-19 VACCINE MODERNA 6MONTHS-5YEARS Unknown Completed [facility] d - External Influenza Nasal, Unspecified Formulation Unknown Completed [facility] External Covid-19 Vaccine Moderna (Spikevax), Mrna-lnp, Isaiah Protein, Pf Unknown Completed [facility] External Covid-19 Vaccine Moderna (Spikevax), Mrna-lnp, Isaiah Protein, Pf Unknown Completed [facility] External Influenza, Seasonal, Injectable, Preservative Free Unknown Completed [facility] External Covid-19 Vaccine Moderna (Spikevax), Mrna-lnp, Isaiah Protein, Pf Unknown Completed [facility] External COVID-19 VACCINE MODERNA 6MONTHS-5YEARS Unknown Completed [facility] - External COVID-19 VACCINE MODERNA 6MONTHS-5YEARS Unknown Completed [facility] - External COVID-19 VACCINE MODERNA 6MONTHS-5YEARS Unknown Completed [facility] - External Influenza Nasal, Unspecified Formulation Unknown Completed [facility] Covid-19 Vaccine Moderna (Spikevax), Mrna-lnp, Isaiah Protein, Pf Unknown Completed [facility] External Covid-19 Vaccine Moderna (Spikevax), Mrna-lnp, Isaiah Protein, Pf Unknown Completed [facility] Influenza, Seasonal, Injectable, Preservative Free Unknown Completed [facility] External Covid-19 Vaccine Moderna (Spikevax), Mrna-lnp, Isaiah Protein, Pf Unknown Completed [facility] External COVID-19 VACCINE MODERNA 6MONTHS-5YEARS Unknown Completed [facility] - External COVID-19 VACCINE MODERNA 6MONTHS-5YEARS Unknown Completed [facility] - External COVID-19 VACCINE MODERNA 6MONTHS-5YEARS Unknown Completed [facility] - External Influenza Nasal, Unspecified Formulation Unknown Completed [facility] External Covid-19 Vaccine Moderna (Spikevax), Mrna-lnp, Isaiah Protein, Pf Unknown Completed [facility] External Covid-19 Vaccine Moderna (Spikevax), Mrna-lnp, Isaiah Protein, Pf Unknown Completed [facility] External Influenza, Seasonal, Injectable, Preservative Free Unknown Completed Melissa dunaway - External Covid-19 Vaccine Moderna (Spikevax), Mrna-lnp, Isaiah Protein, Pf Unknown Completed Melissa Grant - External COVID-19 VACCINE MODERNA 6MONTHS-5YEARS Unknown Completed [facility] - External COVID-19 VACCINE MODERNA 6MONTHS-5YEARS Unknown Completed Melissa Barronol d - External COVID-19 VACCINE MODERNA 6MONTHS-5YEARS Unknown Completed [facility] - External Influenza Nasal, Unspecified Formulation Unknown Completed Melissa Grant - External Covid-19 Vaccine Moderna (Spikevax), Mrna-lnp, Isaiah Protein, Pf Unknown Completed Melissa Grant - External Covid-19 Vaccine Moderna (Spikevax), Mrna-lnp, Isaiah Protein, Pf Unknown Completed [facility] Grant - External Influenza, Seasonal, Injectable, Preservative Free Unknown Completed Melissa [facility] - External Vital Signs Vital Name Observation Time Observation Value Comments S ource Systolic blood pressure 2023-02-24 07:15:00 156 mm[Hg] [facility] Diastolic blood pressure 2023-02-24 07:15:00 88 mm[Hg] [facility] Heart rate 2023-02-24 07:15:00 97 /min [facility] Body temperature 2023-02-24 07:15:00 36.78 Nannette [facility] Respiratory rate 2023-02-24 07:15:00 13 /min [facility] Oxygen saturation in Arterial blood by Pulse oximetry 2023-02-24 07:15:00 96 /min [facility] Body height 2023-02-24 03:40:00 149.9 cm [facility] Body weight 2023-02-24 03:40:00 65.772 kg [facility] BMI 2023-02-24 03:40:00 29.29 kg/m2 [facility] Systolic blood pressure 2023-02-16 19:13:00 130 mm[Hg] Melissa Dwyer [facility] - External Diastolic blood pressure 2023-02-16 19:13:00 70 mm[Hg] Melissa Dwyer ld - External Heart rate 2023-02-16 19:13:00 76 /min Kelse y Seybold - External Body temperature 2023-02-16 19:13:00 37.11 Nannette Melissa Seybold - External Respiratory rate 2023-02-16 19:13:00 18 /min Melissa Seybold - External Body height 2023-02-16 19:13:00 149.9 cm Trisha ey Seybold - External Body weight 2023-02-16 19:13:00 70.761 kg Trisha ey Seybold - External BMI 2023-02-16 19:13:00 31.51 kg/m2 Trisha ey Seybold - External Systolic blood pressure 2023-02-16 17:04:00 124 mm[Hg] Melissa Seybo ld - External Diastolic blood pressure 2023-02-16 17:04:00 76 mm[Hg] Melissa Seybo ld - External Heart rate 2023-02-16 17:04:00 76 /min Kelse y Seybold - External Respiratory rate 2023-02-16 17:04:00 18 /min Melissa Seybold - External Body height 2023-02-16 17:04:00 149.9 cm Trisha ey Seybold - External Body weight 2023-02-16 17:04:00 70.852 kg Trisha ey Seybold - External BMI 2023-02-16 17:04:00 31.55 kg/m2 Trisha ey Seybold - External Systolic blood pressure 2023-02-03 20:24:00 126 mm[Hg] Melissa Seybo ld - External Diastolic blood pressure 2023-02-03 20:24:00 64 mm[Hg] Melissa Seybo ld - External Heart rate 2023-02-03 20:24:00 64 /min Kelse y Seybold - External Respiratory rate 2023-02-03 20:24:00 16 /min Melissa Seybold - External Body height 2023-02-03 20:24:00 149.9 cm Trisha ey Seybold - External Body weight 2023-02-03 20:24:00 67.495 kg Trisha ey Seybold - External BMI 2023-02-03 20:24:00 30.05 kg/m2 Trisha ey Seybold - External Systolic blood pressure 2023-01-20 17:22:00 132 mm[Hg] Melissa Seybo ld - External Diastolic blood pressure 2023-01-20 17:22:00 84 mm[Hg] Melissa Seybo ld - External Heart rate 2023-01-20 17:22:00 64 /min Kelse y Seybold - External Body temperature 2023-01-20 17:22:00 36.89 Nannette Melissa Seybold - External Respiratory rate 2023-01-20 17:22:00 18 /min Melissa Seybold - External Body height 2023-01-20 17:22:00 149.9 cm Trisha ey Seybold - External Body weight 2023-01-20 17:22:00 60.782 kg Trisha ey Seybold - External BMI 2023-01-20 17:22:00 27.06 kg/m2 Trisha ey Seybold - External Systolic blood pressure 2022-12-29 20:44:00 138 mm[Hg] Melissa Seybo ld - External Diastolic blood pressure 2022-12-29 20:44:00 78 mm[Hg] Melissa Seybo ld - External Heart rate 2022-12-29 20:44:00 74 /min Kelse y Seybold - External Body temperature 2022-12-29 20:44:00 37.06 Nannette Melissa Seybold - External Respiratory rate 2022-12-29 20:44:00 18 /min Melissa Seybold - External Body height 2022-12-29 20:44:00 149.9 cm Trisha ey Seybold - External Body weight 2022-12-29 20:44:00 60.98 kg Trisha ey Seybold - External BMI 2022-12-29 20:44:00 27.15 kg/m2 Trisha ey Seybold - External Oxygen saturation in Arterial blood by Pulse oximetry 2022-12-29 20:44:00 100 /min Melissa Seybo ld - External Systolic blood pressure 2022-12-11 18:52:00 140 mm[Hg] Emlissa Seybo ld - External Diastolic blood pressure 2022-12-11 18:52:00 78 mm[Hg] Melissa Seybo ld - External Body temperature 2022-12-11 18:23:00 36.11 Nannette Melissa Seybold - External Respiratory rate 2022-12-11 18:23:00 15 /min Melissa Seybold - External Body height 2022-12-11 18:23:00 149.9 cm Trisha ey Seybold - External Body weight 2022-12-11 18:23:00 69.4 kg Trisha ey Seybold - External BMI 2022-12-11 18:23:00 30.90 kg/m2 Trisha ey Seybold - External Systolic blood pressure 2022-11-11 16:09:00 140 mm[Hg] Melissa Seybo ld - External Diastolic blood pressure 2022-11-11 16:09:00 90 mm[Hg] Melissa Seybo ld - External Heart rate 2022-11-11 16:09:00 96 /min Kelse y Seybold - External Body temperature 2022-11-11 16:09:00 36.72 Nannette Melissa Seybold - External Respiratory rate 2022-11-11 16:09:00 14 /min Melissa Seybold - External Body height 2022-11-11 16:09:00 149.9 cm Trisha ey Seybold - External Body weight 2022-11-11 16:09:00 65.772 kg Trisha ey Seybold - External BMI 2022-11-11 16:09:00 29.29 kg/m2 Trisha ey Seybold - External Systolic blood pressure 2022-11-05 19:56:00 146 mm[Hg] Melissa Seybo ld - External Diastolic blood pressure 2022-11-05 19:56:00 76 mm[Hg] Melissa Seybo ld - External Heart rate 2022-11-05 19:56:00 82 /min Kelse y Seybold - External Respiratory rate 2022-11-05 19:56:00 18 /min Melissa Seybold - External Body height 2022-11-05 19:56:00 149.9 cm Trisha ey Seybold - External Body weight 2022-11-05 19:56:00 67.042 kg Trisha ey Seybold - External BMI 2022-11-05 19:56:00 29.85 kg/m2 Trisha ey Seybold - External Systolic blood pressure 2022-10-30 15:35:00 148 mm[Hg] Melissa Seybo ld - External Diastolic blood pressure 2022-10-30 15:35:00 90 mm[Hg] Melissa Seybo ld - External Heart rate 2022-10-30 15:35:00 82 /min Kelse y Seybold - External Respiratory rate 2022-10-30 15:35:00 18 /min Melissa Seybold - External Body height 2022-10-30 15:35:00 149.9 cm Trisha ey Seybold - External Body weight 2022-10-30 15:35:00 66.225 kg Trisha ey Seybold - External BMI 2022-10-30 15:35:00 29.49 kg/m2 Trisha ey Seybold - External Systolic blood pressure 2022-10-28 21:44:00 170 mm[Hg] Melissa Seybo ld - External Diastolic blood pressure 2022-10-28 21:44:00 99 mm[Hg] Melissa Seybo ld - External Heart rate 2022-10-28 21:44:00 83 /min Kelse y Seybold - External Body temperature 2022-10-28 21:44:00 36.11 Nannette Melissa Seybold - External Respiratory rate 2022-10-28 21:44:00 16 /min Melissa Seybold - External Body height 2022-10-28 21:44:00 149.9 cm Trisha ey Seybold - External Body weight 2022-10-28 21:44:00 66.225 kg Trisha ey Seybold - External BMI 2022-10-28 21:44:00 29.49 kg/m2 Trisha ey Seybold - External Systolic blood pressure 2022-10-27 19:22:00 177 mm[Hg] Melissa Seybo ld - External Diastolic blood pressure 2022-10-27 19:22:00 98 mm[Hg] Melissa Seybo ld - External Heart rate 2022-10-27 19:20:00 78 /min Kelse y Seybold - External Body temperature 2022-10-27 19:20:00 36.89 Nannette Melissa Seybold - External Body height 2022-10-27 19:20:00 149.9 cm Trisha ey Seybold - External Body weight 2022-10-27 19:20:00 63.504 kg Trisha ey Seybold - External BMI 2022-10-27 19:20:00 28.28 kg/m2 Trisha ey Seybold - External Body height 2022-10-26 19:29:00 149.9 cm Trisha ey Seybold - External Body weight 2022-10-26 19:29:00 67.132 kg Trisha ey Seybold - External BMI 2022-10-26 19:29:00 29.89 kg/m2 Trisha ey Seybold - External Systolic blood pressure 2022-09-03 20:23:00 172 mm[Hg] Melissa Seybo ld - External Diastolic blood pressure 2022-09-03 20:23:00 103 mm[Hg] Melissa Seybo ld - External Heart rate 2022-09-03 20:23:00 80 /min Kelse y Seybold - External Respiratory rate 2022-09-03 20:16:00 16 /min Melissa Seybold - External Body height 2022-09-03 20:16:00 149.9 cm Trisha ey Seybold - External Body weight 2022-09-03 20:16:00 67.132 kg Trisha ey Seybold - External BMI 2022-09-03 20:16:00 29.89 kg/m2 Trisha ey Seybold - External Oxygen saturation in Arterial blood by Pulse oximetry 2022-09-03 20:16:00 98 /min Melissa Seybo ld - External Systolic blood pressure 2022-08-27 17:53:00 120 mm[Hg] Melissa Seybo ld - External Diastolic blood pressure 2022-08-27 17:53:00 76 mm[Hg] Melissa Seybo ld - External Heart rate 2022-08-27 17:53:00 85 /min Kelse y Seybold - External Respiratory rate 2022-08-27 17:53:00 14 /min Melissa Seybold - External Body height 2022-08-27 17:53:00 149.9 cm Trisha ey Seybold - External Body weight 2022-08-27 17:53:00 67.586 kg Trisha ey Seybold - External BMI 2022-08-27 17:53:00 30.09 kg/m2 Trisha ey Seybold - External Oxygen saturation in Arterial blood by Pulse oximetry 2022-08-27 17:53:00 99 /min Melissa Seybo ld - External Systolic blood pressure 2022-06-24 15:33:00 169 mm[Hg] Melissa Seybo ld - External Diastolic blood pressure 2022-06-24 15:33:00 95 mm[Hg] Melissa Seybo ld - External Heart rate 2022-06-24 15:33:00 74 /min Kelse y Seybold - External Body temperature 2022-06-24 15:33:00 36.56 Nannette Melissa Seybold - External Respiratory rate 2022-06-24 15:33:00 19 /min Melissa Seybold - External Body height 2022-06-24 15:33:00 149.9 cm Trisha ey Seybold - External Body weight 2022-06-24 15:33:00 68.493 kg Trisha ey Seybold - External BMI 2022-06-24 15:33:00 30.50 kg/m2 Trisha ey Seybold - External Oxygen saturation in Arterial blood by Pulse oximetry 2022-06-24 15:33:00 97 /min Melissa Seybo ld - External Systolic blood pressure 2022-06-22 19:05:00 136 mm[Hg] Melissa Seybo ld - External Diastolic blood pressure 2022-06-22 19:05:00 85 mm[Hg] Melissa Seybo ld - External Heart rate 2022-06-22 19:05:00 67 /min Kelse y Seybold - External Body temperature 2022-06-22 16:21:00 36.28 Nannette Melissa Seybold - External Respiratory rate 2022-06-22 16:21:00 18 /min Melissa Seybold - External Body height 2022-06-22 16:21:00 149.9 cm Trisha ey Seybold - External Body weight 2022-06-22 16:21:00 67.677 kg Trisha ey Seybold - External BMI 2022-06-22 16:21:00 30.13 kg/m2 Trisha ey Seybold - External Oxygen saturation in Arterial blood by Pulse oximetry 2022-06-22 16:21:00 98 /min Melissa Seybo ld - External Systolic blood pressure 2022-06-19 19:22:00 100 mm[Hg] Melissa Seybo ld - External Diastolic blood pressure 2022-06-19 19:22:00 62 mm[Hg] Melissa Seybo ld - External Heart rate 2022-06-19 19:22:00 88 /min Kelse y Seybold - External Body temperature 2022-06-19 19:22:00 36.22 Nannette Melissa Seybold - External Respiratory rate 2022-06-19 19:22:00 16 /min Melissa Seybold - External Body height 2022-06-19 19:22:00 149.9 cm Trisha ey Seybold - External Body weight 2022-06-19 19:22:00 66.679 kg Trisha ey Seybold - External BMI 2022-06-19 19:22:00 29.69 kg/m2 Trisha ey Seybold - External Oxygen saturation in Arterial blood by Pulse oximetry 2022-06-19 19:22:00 97 /min Melissa Seybo ld - External Systolic blood pressure 2022-06-19 18:47:00 100 mm[Hg] Melissa Seybo ld - External Diastolic blood pressure 2022-06-19 18:47:00 62 mm[Hg] Melissa Seybo ld - External Heart rate 2022-06-19 18:47:00 88 /min Kelse y Seybold - External Respiratory rate 2022-06-19 18:47:00 18 /min Melissa Seybold - External Body height 2022-06-19 18:47:00 149.9 cm Trisha ey Seybold - External Body weight 2022-06-19 18:47:00 67.042 kg Trisha ey Seybold - External BMI 2022-06-19 18:47:00 29.85 kg/m2 Trisha ey Seybold - External Systolic blood pressure 2022-06-09 19:35:00 165 mm[Hg] Melissa Seybo ld - External Diastolic blood pressure 2022-06-09 19:35:00 89 mm[Hg] Melissa Seybo ld - External Heart rate 2022-06-09 19:35:00 67 /min Kelse y Seybold - External Body temperature 2022-06-09 16:41:00 36.22 Nannette Melissa Seybold - External Respiratory rate 2022-06-09 16:41:00 18 /min Melissa Seybold - External Body height 2022-06-09 16:41:00 149.9 cm Rtisha ey Seybold - External Body weight 2022-06-09 16:41:00 63.64 kg Trisha ey Seybold - External BMI 2022-06-09 16:41:00 28.34 kg/m2 Trisha ey Seybold - External Oxygen saturation in Arterial blood by Pulse oximetry 2022-06-09 16:41:00 99 /min Melissa Seybo ld - External Systolic blood pressure 2022-05-26 18:52:00 147 mm[Hg] Melissa Seybo ld - External Diastolic blood pressure 2022-05-26 18:52:00 92 mm[Hg] Melissa Seybo ld - External Heart rate 2022-05-26 18:52:00 73 /min Kel y Seybold - External Respiratory rate 2022-05-26 15:42:00 20 /min Melissa Seybold - External Body temperature 2022-05-26 15:16:00 36.11 Nannette Melissa Seybold - External Body height 2022-05-26 15:16:00 149.9 cm Trisha ey Seybold - External Body weight 2022-05-26 15:16:00 63.504 kg Trisha ey Seybold - External BMI 2022-05-26 15:16:00 28.28 kg/m2 Trisha ey Seybold - External Oxygen saturation in Arterial blood by Pulse oximetry 2022-05-26 15:16:00 99 /min Melissa Seybo ld - External Body height 2022-05-11 19:20:00 149.9 cm Trisha ey Seybold - External Body weight 2022-05-11 19:20:00 63.504 kg Trisha ey Seybold - External BMI 2022-05-11 19:20:00 28.28 kg/m2 Trisha ey Seybold - External Systolic blood pressure 2022-05-08 14:47:00 142 mm[Hg] Melissa Seybo ld - External Diastolic blood pressure 2022-05-08 14:47:00 73 mm[Hg] Melissa Seybo ld - External Heart rate 2022-05-08 14:47:00 81 /min Kelse y Seybold - External Body temperature 2022-05-08 14:47:00 36.5 Nannette Melissa Seybold - External Respiratory rate 2022-05-08 14:47:00 14 /min Melissa Seybold - External Body height 2022-05-08 14:47:00 149.9 cm Trisha ey Seybold - External Body weight 2022-05-08 14:47:00 63.504 kg Trisha ey Seybold - External BMI 2022-05-08 14:47:00 28.28 kg/m2 Trisha ey Seybold - External Oxygen saturation in Arterial blood by Pulse oximetry 2022-05-08 14:47:00 99 /min Melissa Seybo ld - External Systolic blood pressure 2022-05-07 20:33:00 152 mm[Hg] Melissa Seybo ld - External Diastolic blood pressure 2022-05-07 20:33:00 88 mm[Hg] Melissa Seybo ld - External Heart rate 2022-05-07 20:33:00 84 /min Ojse y Seybold - External Respiratory rate 2022-05-07 20:33:00 16 /min Melissa Seybold - External Body height 2022-05-07 20:33:00 149.9 cm Trisha ey Seybold - External Body weight 2022-05-07 20:33:00 63.504 kg Trisha ey Seybold - External BMI 2022-05-07 20:33:00 28.28 kg/m2 Trisha ey Seybold - External Systolic blood pressure 2022-05-01 18:25:00 117 mm[Hg] Melissa Seybo ld - External Diastolic blood pressure 2022-05-01 18:25:00 74 mm[Hg] Melissa Seybo ld - External Heart rate 2022-05-01 18:25:00 72 /min Kelse y Seybold - External Body temperature 2022-05-01 18:25:00 36.61 Nannette Melissa Seybold - External Respiratory rate 2022-05-01 18:25:00 14 /min Melissa Seybold - External Body height 2022-05-01 18:25:00 149.9 cm Trisha ey Seybold - External Body weight 2022-05-01 18:25:00 63.957 kg Trisha ey Seybold - External BMI 2022-05-01 18:25:00 28.48 kg/m2 Trisha ey Seybold - External Oxygen saturation in Arterial blood by Pulse oximetry 2022-05-01 18:25:00 99 /min Melissa Seybo ld - External Systolic blood pressure 2022-04-03 21:11:00 136 mm[Hg] Melissa Seybo ld - External Diastolic blood pressure 2022-04-03 21:11:00 72 mm[Hg] Melissa Seybo ld - External Heart rate 2022-04-03 21:11:00 73 /min Yulia y Seybold - External Body temperature 2022-04-03 21:11:00 37.39 Nannette Melissa Seybold - External Respiratory rate 2022-04-03 21:11:00 14 /min Melissa Seybold - External Body height 2022-04-03 21:11:00 149.9 cm Trisha ey Seybold - External Body weight 2022-04-03 21:11:00 66.225 kg Trisha ey Seybold - External BMI 2022-04-03 21:11:00 29.49 kg/m2 Trisha ey Seybold - External Oxygen saturation in Arterial blood by Pulse oximetry 2022-04-03 21:11:00 99 /min Melissa Quigleyybo ld - External Systolic blood pressure 2021-09-30 20:09:00 144 mm[Hg] [facility] Diastolic blood pressure 2021-09-30 20:09:00 88 mm[Hg] [facility] Heart rate 2021-09-30 20:08:00 88 /min [facility] Body temperature 2021-09-30 20:08:00 35.94 Nannette [facility] Respiratory rate 2021-09-30 20:08:00 16 /min [facility] Body height 2021-09-30 20:08:00 149.9 cm [facility] Body weight 2021-09-30 20:08:00 64.501 kg [facility] BMI 2021-09-30 20:08:00 28.72 kg/m2 [facility] BP Systolic 2022-02-05 11:42:00 160 mm[Hg] BP [...] 87.00 /min Respiratory Rate 2020-06-28 14:02:00 Procedures Procedure Date / Time Performed Performing Clinicia n Source URINALYSIS 2023-02-24 04:28:00 Keaton Patiño [facility] POCT TEST 2023-02-24 04:26:00 Keaton Patiño [facility] LIPASE 2023-02-24 04:10:00 Keaton Patiño [facility] COMP. METABOLIC PANEL (21937) 2023-02-24 04:10:00 Keaton Patiño [facility] CBC WITH DIFF 2023-02-24 04:10:00 Keaton Patiño [facility] CONSENT/REFUSAL FOR DIAGNOSIS AND TREATMENT 2023-02-24 03:30:37 Doctor Unassigned, [place] [facility] ECG- ADULT 2022-11-11 16:50:07 Adriano Agee - External POCT HEMOGLOBIN A1C TEST 2021-09-30 21:21:00 Andrew Verduzco [facility] Plan of Care Planned Activity Planned Date Details Comments Source Goal Plan of Care Note [code = 44466-2] Goal Plan of Care Note [code = 81522-2] Goal Plan of Care Note [code = 28495-3] Goal Plan of Care Note [code = 35475-3] Goal Plan of Care Note [code = 02890-2] Goal Plan of Care Note [code = 86031-5] Goal Plan of Care Note [code = 92961-6] Goal Plan of Care Note [code = 33118-6] Goal Plan of Care Note [code = 07391-8] Goal Plan of Care Note [code = 44783-1] Goal Plan of Care Note [code = 11497-7] Goal Plan of Care Note [code = 40129-3] Goal Plan of Care Note [code = 03062-3] Goal Plan of Care Note [code = 44206-3] Goal Plan of Care Note [code = 78687-9] Goal Plan of Care Note [code = 58309-2] Goal Plan of Care Note [code = 69467-5] Goal Plan of Care Note [code = 49648-4] Goal Plan of Care Note [code = 99664-0] Goal Plan of Care Note [code = 16462-3] Goal Plan of Care Note [code = 14174-4] Goal Plan of Care Note [code = 45365-7] Goal Plan of Care Note [code = 24940-7] Goal Plan of Care Note [code = 77126-5] Goal Plan of Care Note [code = 03971-5] Goal Plan of Care Note [code = 45393-7] Goal Plan of Care Note [code = 21294-0] Goal Plan of Care Note [code = 86705-6] Goal Plan of Care Note [code = 65709-7] Goal Plan of Care Note [code = 15866-1] Goal Plan of Care Note [code = 22089-2] Goal Plan of Care Note [code = 42658-2] Goal Plan of Care Note [code = 85652-0] Goal Plan of Care Note [code = 46191-3] Goal Plan of Care Note [code = 61513-1] Goal Plan of Care Note [code = 81866-5] Goal Plan of Care Note [code = 85564-6] Goal Plan of Care Note [code = 21632-0] Goal Plan of Care Note [code = 36715-4] Goal Plan of Care Note [code = 47792-3] Goal Plan of Care Note [code = 06492-0] Goal Plan of Care Note [code = 76552-7] Goal Plan of Care Note [code = 53795-2] Goal Plan of Care Note [code = 91725-5] Goal Plan of Care Note [code = 37077-0] Goal Plan of Care Note [code = 33244-5] Goal Plan of Care Note [code = 50891-4] Goal Plan of Care Note [code = 67433-0] Goal Plan of Care Note [code = 67144-8] Goal Plan of Care Note [code = 30950-2] Goal Plan of Care Note [code = 11693-3] Goal Plan of Care Note [code = 74295-0] Goal Plan of Care Note [code = 13138-6] Encounters Start Date/Time End Date/Time Encounter Type Admission Type Attending [facility] Care Department Encounter ID Source 2020-12-08 09:56:25 Emergency [facility] [id number] [facility] 2023-07-19 13:00:00 2023-07-19 13:00:00 Outpatient GIDEON RODRIGUEZ [id number] Melissa robbie 2023-05-27 08:30:00 2023-05-27 08:30:00 Outpatient DEANNE KAUR [id number] Melissa Grant 2023-04-13 09:40:00 2023-04-13 09:40:00 Outpatient MATEO ANTHONY [id number] Melissa robbie 2023-03-17 14:45:00 2023-03-17 14:45:00 Outpatient [facility] [id number] [facility] 10:00:00 2023-03-16 10:00:00 Outpatient JAZZY ESTHER RAJPUT [id number] Melissa Quigleymayra 2023-03-15 08:40:00 2023-03-15 08:40:00 Outpatient IVIS HOOVER MELISSA RAJPUT [id number] [facility] 2023-03-12 13:30:00 2023-03-12 13:30:00 Outpatient ENEDELIAMalVANCEADRIANOJUSTIN RAJPUT [id number] [facility] 2023-03-02 12:20:00 2023-03-02 12:20:00 Outpatient KEMAR ROD[facility]IGUEZ [id number] [facility] 2023-03-02 12:00:00 2023-03-02 12:00:00 Outpatient JAZZY ESTHER RAJPUT [id number] [facility] 2023-03-01 00:00:00 2023-03-01 00:00:00 Outpatient RODOLFOSHERRYADRIANO MELISSA RAJPUT [id number] [facility] 2023-02-23 21:41:00 2023-02-24 01:28:00 Emergency X KEATON PATIÑO [facility] ERT [id number] [facility] 2023-02-23 21:41:00 2023-02-24 01:28:00 Emergency Keaton Patiño [facility] [id number] [facility] 2023-02-24 00:00:00 2023-02-24 00:00:00 Outpatient IVIS HOOVER MELISSA RAJPUT [id number] [facility] 2023-02-23 00:00:00 2023-02-23 00:00:00 Outpatient JAZZY ESTHER RAJPUT [id number] [facility] 2023-02-23 00:00:00 2023-02-23 00:00:00 Outpatient ENEDELIAMalVANCEADRIANOJUSTIN RAJPUT [id number] [facility] 2023-02-23 00:00:00 2023-02-23 00:00:00 Outpatient PREZASADRIANO MELISSA RAJPUT [id number] Melissa Seybmayra 2023-02-22 00:00:00 2023-02-22 00:00:00 Outpatient PURCELLESTHER RAMOS [id number] Melissa Quigley[facility] 2023-02-22 00:00:00 2023-02-22 00:00:00 Outpatient MD MELISSA NOBLE [id number] Melissa Seybmayra 2023-02-22 00:00:00 2023-02-22 00:00:00 Outpatient HERNANDEZTANGELA [id number] Melissa Seybmayra 2023-02-22 00:00:00 2023-02-22 00:00:00 Outpatient ONLY, NEGAR RAJPUT [id number] Melissa Seybold 2023-02-18 00:00:00 2023-02-18 00:00:00 Outpatient PREZAADRIANO Resendez MELISSA RAJPUT [id number] Melissa Seybmayra 2023-02-16 14:05:00 2023-02-16 14:05:00 Outpatient TIFFANIE RAJPUT [id number] Melissa Seybmayra 2023-02-16 11:40:00 2023-02-16 11:40:00 Outpatient HERNANDEZ, TANGELA RAJPUT [id number] Melissa Seybmayra 2023-02-16 11:00:00 2023-02-16 11:00:00 Outpatient PURCELLESTHER RAMOS [id number] Melissa Seybmayra 2023-02-16 00:00:00 2023-02-16 00:00:00 Outpatient MD MELISSA NOBLE [id number] Melissa Grant 2023-02-15 00:00:00 2023-02-15 00:00:00 Outpatient MD MELISSA NOBLE [id number] Melissa Grant 2023-02-10 15:00:00 2023-02-10 15:00:00 Outpatient HERNANDEZTANGELA Lara [id number] Melissa Grant 2023-02-09 00:00:00 2023-02-09 00:00:00 Outpatient MELISSA RAJPUT [id number] Melissa Seybmayra 2023-02-03 14:30:00 2023-02-03 14:30:00 Outpatient LIZETH FLORES MELISSA RAJPUT [id number] Melissa Seybold 2023-02-03 13:45:00 2023-02-03 13:45:00 Outpatient MICHAEL KEMAR MELISSA RAJPUT [id number] [facility] 14:45:00 2023-01-21 14:45:00 Outpatient LIZETH FLORES MELISSA RAJPUT [id number] [facility] 2023-01-21 00:00:00 2023-01-21 00:00:00 Outpatient MELISSA RAJPUT [id number] [facility] 2023-01-21 00:00:00 2023-01-21 00:00:00 [id number] 11:45:00 2023-01-20 11:45:00 Outpatient KEMAR RODRIGUEZ [id number] [facility] 2023-01-13 08:45:00 2023-01-13 08:45:00 Outpatient CHATO Garcia [id number] [facility] 2023-01-13 08:20:00 2023-01-13 08:20:00 Outpatient GIDEON RODRIGUEZ [id number] [facility] 2023-01-08 00:00:00 2023-01-08 00:00:00 Outpatient ADRIANO AGEE [id number] Melissa Seybold 2023-01-07 14:05:00 2023-01-07 14:05:00 Outpatient MELISSA RAJPUT [id number] Melissa Seybold 2023-01-07 14:00:00 2023-01-07 14:00:00 Outpatient MELISSA RAJPUT [id number] Melissa Seybm[facility]ra 2023-01-06 15:10:00 2023-01-06 15:10:00 Outpatient GIDEON RODRIGUEZ MELISSA RAJPUT [id number] Melissa [facility]ig[facility] 2022-12-29 15:00:00 2022-12-29 15:00:00 Outpatient ERIC DURBIN MELISSA RAJPUT [id number] [facility] 2022-12-29 00:00:00 2022-12-29 00:00:00 Outpatient PREZAADRIANO Resendez MELISSA RAJPUT [id number] [facility] 2022-12-28 00:00:00 2022-12-28 00:00:00 Outpatient MD MELISSA NOBLE [id number] Melissa [facility] 2022-12-25 00:00:00 2022-12-25 00:00:00 Outpatient SEBASTIAN CHUNG [id number] [facility] 2022-12-21 00:00:00 2022-12-21 00:00:00 Outpatient CARMELINA MARY MELISSA RAJPUT [id number] [facility] 2022-12-21 00:00:00 2022-12-21 00:00:00 Outpatient PREZAS, ADRIANO MELISSA RAJPUT [id number] [facility] 2022-12-14 00:00:00 2022-12-14 00:00:00 Outpatient PREZAS, ADRIANO MELISSA RAJPUT [id number] [facility] 2022-12-11 14:15:00 2022-12-11 14:15:00 Outpatient WEN MELISSA RAJPUT [id number] [facility] 2022-12-11 13:45:00 2022-12-11 13:45:00 Outpatient PREZAS, ADRIANO MELISSA RAJPUT [id number] [facility] 2022-12-06 00:00:00 2022-12-06 00:00:00 Outpatient PREZAS, ADRIANO RAJPUT [id number] [facility] 2022-11-27 13:30:00 2022-11-27 13:30:00 Outpatient PREZAS, ADRIANO RAJPUT [id number] [facility] 2022-11-27 08:30:00 2022-11-27 08:30:00 Outpatient KEMAR RODRIGUEZ [id number] [facility] 2022-11-23 00:00:00 2022-11-23 00:00:00 Outpatient PREZAS, ADRIANO RAJPUT MELISSA [id number] [facility] 2022-11-18 00:00:00 2022-11-18 00:00:00 Outpatient PREZAS, ADRIANO RAJPUT MELISSA [id number] [facility] 2022-11-16 14:30:00 2022-11-16 14:30:00 Outpatient MELISSA MELISSA [id number] [facility] 2022-11-16 00:00:00 2022-11-16 00:00:00 Outpatient PREZAS, ADRIANO RAJPUT MELISSA [id number] [facility] 2022-11-16 00:00:00 2022-11-16 00:00:00 Outpatient PREZAS, ADRIANO RAJPTU MELISSA [id number] [facility] 2022-11-16 00:00:00 2022-11-16 00:00:00 Outpatient PREZAS, ADRIANO RAJPUT MELISSA [id number] [facility] 2022-11-11 11:30:00 2022-11-11 11:30:00 Outpatient PREZAS, ADRIANO RAJPUT MELISSA [id number] [facility] 2022-11-05 15:00:00 2022-11-05 15:00:00 Outpatient PURCELLESTHER RAMOS [id number] [facility] 2022-11-02 00:00:00 2022-11-02 00:00:00 Outpatient PURCELL, ESTHER RAJPUT [id number] [facility] 2022-11-02 00:00:00 2022-11-02 00:00:00 Outpatient PREZAS, ADRIANO MELISSA RAJPUT [id number] [facility] 2022-11-02 00:00:00 2022-11-02 00:00:00 Outpatient PREZAS, ADRIANO MELISSA RAJPUT [id number] [facility] 2022-10-30 13:40:00 2022-10-30 13:40:00 Outpatient GIDEON RODRIGUEZ [id number] [facility] 2022-10-30 13:35:00 2022-10-30 13:35:00 Outpatient TOMOGRAPHY, FBMDC MELISSA RAJPUT [id number] [facility] 2022-10-30 10:30:00 2022-10-30 10:30:00 Outpatient KEMAR RODRIGUEZ MELISSA RAJPUT [id number] [facility] 2022-10-30 00:00:00 2022-10-30 00:00:00 Outpatient ADRIANO AGEE MELISSA RAJPUT [id number] [facility] 2022-10-30 00:00:00 2022-10-30 00:00:00 Outpatient MARTY ADRIANO MELISSA RAJPUT [id number] [facility] 2022-10-30 00:00:00 2022-10-30 00:00:00 Outpatient MELISSA RAJPUT [id number] [facility] 2022-10-29 12:40:00 2022-10-29 12:40:00 Outpatient LAB90 [facility]SA [facility]JPUT [id number] [facility]-10-28 16:20:00 2022-10-28 16:20:00 Outpatient IVIS HOOVER [id number] [facility] 2022-10-27 14:45:00 2022-10-27 14:45:00 Outpatient SHMUEL HAGEN [id number] [facility] 2022-10-26 16:00:00 2022-10-26 16:00:00 Outpatient IVIS HOOVER [id number] [facility] 2022-10-26 14:30:00 2022-10-26 14:30:00 Outpatient CYNDI WINSTONLAURAJane RAJPUT [id number] [facility] 2022-10-26 14:15:00 2022-10-26 14:15:00 Outpatient MELISSA RAJPUT [id number] [facility] 2022-10-23 14:30:00 2022-10-23 14:30:00 Outpatient GIDEON RODRIGUEZ [id number] [facility] 2022-10-19 08:50:00 2022-10-19 08:50:00 Outpatient NUHA WINSTON MELISSA RAJPUT [id number] [facility] 2022-10-16 00:00:00 2022-10-16 00:00:00 Outpatient NUHA WINSTON MELISSA RAJPUT [id number] [facility] 2022-10-13 15:20:00 2022-10-13 15:20:00 Outpatient MAINORMATEO Graham MELISSA RAJPUT [id number] [facility] 2022-10-13 14:00:00 2022-10-13 14:00:00 Outpatient VF53 MELISSA RAJPUT [id number] [facility] 2022-10-13 10:20:00 2022-10-13 10:20:00 Outpatient ROSE LEONID MELISSA RAJPUT [id number] [facility] 2022-10-02 00:00:00 2022-10-02 00:00:00 Outpatient MD MELISSA NOBLE [id number] [facility] 2022-10-01 00:00:00 2022-10-01 00:00:00 Outpatient PRESHERRY ADRIANOJUSTIN RAJPUT [id number] [facility] 2022-09-30 00:00:00 2022-09-30 00:00:00 Outpatient PREZAADRIANO Resendez [id number] [facility] 2022-09-30 00:00:00 2022-09-30 00:00:00 Outpatient HAMJERARDODebbie RAJPUT [id number] [facility] 2022-09-28 00:00:00 2022-09-28 00:00:00 Outpatient RAJMATEO MELISSA RAJPUT [id number] [facility] 2022-09-28 00:00:00 2022-09-28 00:00:00 Outpatient ADRIANO AGEE [id number] [facility] 2022-09-19 00:00:00 2022-09-19 00:00:00 Outpatient PREZASADRIANO [id number] [facility] 2022-09-15 00:00:00 2022-09-15 00:00:00 Outpatient ADRIANO AGEE MELISSA RAJPUT [id number] [facility] 2022-09-14 11:55:00 2022-09-14 11:55:00 Outpatient WEN MELISSA RAJPUT [id number] [facility] 2022-09-14 00:00:00 2022-09-14 00:00:00 Outpatient JORGE CHEEK MELISSA RAJPUT [id number] [facility] 2022-09-08 00:00:00 2022-09-08 00:00:00 Outpatient KESHAWN JONES MELISSA RAJPUT [id number] [facility] 2022-09-07 12:00:00 2022-09-07 12:00:00 Outpatient MINISTERIO JONESJan RAJPUT [id number] [facility] 2022-09-04 00:00:00 2022-09-04 00:00:00 Outpatient ADRIANO AGEE MELISSA RAJPUT [id number] [facility] 2022-09-04 00:00:00 2022-09-04 00:00:00 Outpatient ADRIANO AGEE MELISSA RAJPUT [id number] [facility] 2022-09-03 15:15:00 2022-09-03 15:15:00 Outpatient ESTHER PURCELL [id number] [facility] 2022-09-02 00:00:00 2022-09-02 00:00:00 Outpatient MD MELISSA NOBLE [id number] [facility] 2022-09-01 00:00:00 2022-09-01 00:00:00 Outpatient MD MELISSA NOBLE [id number] [facility] 2022-09-01 00:00:00 2022-09-01 00:00:00 Outpatient VANCE AGEEJUSTIN RAJPUT [id number] [facility] 2022-08-31 00:00:00 2022-08-31 00:00:00 Outpatient ESTHER PUCRELL [id number] [facility] 2022-08-27 13:30:00 2022-08-27 13:30:00 Outpatient PREZASADRIANO MELISSA [id number] [facility] 2022-08-19 11:30:00 2022-08-19 11:30:00 Outpatient GIDEON RODRIGUEZ MELISSA RAJPUT [id number] [facility] 2022-08-04 13:00:00 2022-08-04 13:00:00 Outpatient UDOETGIDEON LANDRY MELISSA MELISSA [id number] [facility] 2022-07-30 00:00:00 2022-07-30 00:00:00 Outpatient HAMJORGE MELISSA RAJPUT [id number] [facility] 2022-07-28 00:00:00 2022-07-28 00:00:00 Outpatient NOCK, MATEO MELISSA RAJPUT [id number] [facility] 00:00:00 2022-07-28 00:00:00 Outpatient PREZAS, ADRIANO MELISSA RAJPUT [id number] [facility] 2022-07-28 00:00:00 2022-07-28 00:00:00 Outpatient PREZAS, ADRIANO MELISSA RAJPUT [id number] [facility] 2022-07-19 00:00:00 2022-07-19 00:00:00 Outpatient PREZAS, ADRIANO MELISSA RAJPUT [id number] [facility] 2022-07-15 13:15:00 2022-07-15 13:15:00 Outpatient MELISSA RAJPUT [id number] [facility] 2022-07-13 14:00:00 2022-07-13 14:00:00 Outpatient NOCK, MATEO MELISSA RAJPUT [id number] [facility] 2022-07-10 00:00:00 2022-07-10 00:00:00 Outpatient PREZAS, ADRIANO MELISSA RAJPUT [id number] [facility] 2022-07-10 00:00:00 2022-07-10 00:00:00 Outpatient PREZAS, ADRIANO MELISSA RAJPUT [id number] [facility] 2022-07-09 13:30:00 2022-07-09 13:30:00 Outpatient LAB90 MELISSA RAJPUT [id number] [facility] 2022-07-07 00:00:00 2022-07-07 00:00:00 Outpatient PREZAADRIANO Resendez MELISSA RAJPUT [id number] [facility] 2022-07-03 00:00:00 2022-07-03 00:00:00 Outpatient MD MELISSA NOBLE [id number] [facility] 2022-06-30 14:30:00 2022-06-30 14:30:00 Outpatient PREZAS, ADRIANO MELISSA RAJPUT [id number] [facility] 2022-06-29 14:30:00 2022-06-29 14:30:00 Outpatient UDOETMONA LANDRYUA MELISSA RAJPUT [id number] [facility] 2022-06-29 13:15:00 2022-06-29 13:15:00 Outpatient 1, OPTICAL MELISSA RAJPUT [id number] [facility] 2022-06-24 11:00:00 2022-06-24 11:00:00 Outpatient PREZAS, ADRIANO MELISSA RAJPUT [id number] [facility] 2022-06-24 00:00:00 2022-06-24 00:00:00 Outpatient PREZAS, ADRIANO MELISSA RAJPUT [id number] [facility] 2022-06-24 00:00:00 2022-06-24 00:00:00 Outpatient NOCK, MATEOKAROLINE RAJPUT [id number] [facility] 2022-06-22 11:30:00 2022-06-22 11:30:00 Outpatient IVT, MC MEILSSA RAJPUT [id number] [facility] 2022-06-22 00:00:00 2022-06-22 00:00:00 Outpatient MELISSA RAJPUT [id number] [facility] 2022-06-22 00:00:00 2022-06-22 00:00:00 Outpatient PREZAS, ADRIANO MELISSA RAJPUT [id number] [facility] 2022-06-19 15:40:00 2022-06-19 15:40:00 Outpatient ROBERTKESHAWN MELISSA RAJPUT [id number] [facility] 2022-06-19 14:00:00 2022-06-19 14:00:00 Outpatient PURCELLESTHER RAMOS MELISSA RAJPUT [id number] [facility] 2022-06-19 00:00:00 2022-06-19 00:00:00 Outpatient MANTRAVACARLTON HERNANDES [id number] [facility] 2022-06-17 00:00:00 2022-06-17 00:00:00 Outpatient NOCK, MATEOBRENTON RAJPUT [id number] [facility] 2022-06-15 00:00:00 2022-06-15 00:00:00 Outpatient PREZAS, ADRIANO RAJPUT [id number] [facility] 2022-06-15 00:00:00 2022-06-15 00:00:00 Outpatient MANTRACARLTON ARIZMENDI [id number] [facility] 2022-06-12 14:20:00 2022-06-12 14:20:00 Outpatient KUMAR ISMAALEJANDRA RAJPUT [id number] [facility] 2022-06-09 11:30:00 2022-06-09 11:30:00 Outpatient INFUSION, GABY RAJPUT [id number] [facility] 2022-06-02 00:00:00 2022-06-02 00:00:00 Outpatient RUBY, ANGELA MELISSA RAJPUT [id number] [facility] 2022-06-01 14:00:00 2022-06-01 14:00:00 Outpatient PREZAS, ADRIANO RAJPUT [id number] [facility] 2022-06-01 00:00:00 2022-06-01 00:00:00 Outpatient MANTRACARLTON ARIZMENDI [id number] [facility] 2022-05-26 10:00:00 2022-05-26 10:00:00 Outpatient IVT, GABY RAJPUT [id number] [facility] 2022-05-18 00:00:00 2022-05-18 00:00:00 Outpatient ZAIN DIOR MELISSA RAJPUT [id number] [facility] 2022-05-13 16:00:00 2022-05-13 16:00:00 Outpatient MELISSA RAJPUT [id number] [facility] 2022-05-12 11:35:00 2022-05-12 11:35:00 Outpatient TOMOGRAPHY, CK MELISSA RAJPUT [id number] [facility] 2022-05-12 11:05:00 2022-05-12 11:05:00 Outpatient TOMOGRAPHY, CK MELISSA RAJPUT [id number] [facility] 2022-05-12 10:40:00 2022-05-12 10:40:00 Outpatient NOCMATEO Graham MELISSA RAJPUT [id number] [facility] 2022-05-11 14:30:00 2022-05-11 14:30:00 Outpatient ALAKENNY ENRIQUEO MELISSA RAJPUT [id number] [facility] 2022-05-08 10:00:00 2022-05-08 10:00:00 Outpatient PREADRIANO POWELL [id number] [facility] 2022-05-07 16:00:00 2022-05-07 16:00:00 Outpatient MATTHEW ASHFORD [id number] [facility] 2022-05-06 00:00:00 2022-05-06 00:00:00 Outpatient MELISSA RAJPUT [id number] [facility] 2022-05-05 07:50:00 2022-05-05 07:50:00 Outpatient MELISSA RAJPUT [id number] [facility] 2022-05-05 07:30:00 2022-05-05 07:30:00 Outpatient MELISSA RAJPUT [id number] [facility] 2022-05-05 00:00:00 2022-05-05 00:00:00 Outpatient PREZAADRIANO Resendez MELISSA RAJPUT [id number] [facility] 2022-05-05 00:00:00 2022-05-05 00:00:00 Outpatient PHOEBE ROWE [id number] [facility] 2022-05-05 00:00:00 2022-05-05 00:00:00 Outpatient PREZAS, ADRIANO RAJPUT MELISSA [id number] [facility] 2022-05-05 00:00:00 2022-05-05 00:00:00 Outpatient MELISSA MELISSA [id number] [facility] 2022-05-01 14:30:00 2022-05-01 14:30:00 Outpatient LAB90 MELISSA MELISSA [id number] [facility] 2022-05-01 13:45:00 2022-05-01 13:45:00 Outpatient PREZAS, ADRIANO MELISSA RAJPUT [id number] [facility] 2022-04-22 16:15:00 2022-04-22 16:15:00 Outpatient MELISSA RAJPUT [id number] [facility] 2022-04-22 10:00:00 2022-04-22 10:00:00 Outpatient SYDNIASHPATRICK LAROSEER MELISSA RAJPUT [id number] [facility] 2022-04-10 16:00:00 2022-04-10 16:00:00 Outpatient MELISSA RAJPUT [id number] [facility] 2022-04-10 00:00:00 2022-04-10 00:00:00 Outpatient PREZAS, ADRIANO RAJPUT MELISSA [id number] [facility] 2022-04-09 00:00:00 2022-04-09 00:00:00 Outpatient PREZAS, ADRIANO MELISSA RAJPUT [id number] [facility] 2022-04-09 00:00:00 2022-04-09 00:00:00 Outpatient PREZAS, ADRIANO MELISSA RAJPUT [id number] [facility] 2022-04-09 00:00:00 2022-04-09 00:00:00 Outpatient PREZASADRIANO MELISSA RAJPUT [id number] [facility] 2022-04-08 14:15:00 2022-04-08 14:15:00 Outpatient LAB90 MELISSA RAJPUT [id number] [facility] 2022-04-07 00:00:00 2022-04-07 00:00:00 Outpatient ADRIANO AGEE [id number] [facility] 2022-04-06 13:40:00 2022-04-06 13:40:00 Outpatient WEN RAJPUT [id number] [facility] 2022-04-03 15:15:00 2022-04-03 15:15:00 Outpatient ADRIANO AGEE [id number] [facility] 2022-04-01 10:30:00 2022-04-01 10:30:00 Outpatient R DAXHAMALLORIEBOOGIE VERDUZCO [facility] [id number] [facility] 2022-04-01 10:30:00 2022-04-01 10:30:00 Outpatient R DORETHA VERDUZCOBOOGIE ADX, ANDREW [facility] [id number] [facility] 2022-02-26 14:58:07 2022-02-26 14:58:07 Outpatient SFA SFA [id number] Matthew Brown 2022-02-20 14:15:19 2022-02-20 14:15:19 Outpatient SFA SFA [id number] Matthew Brown 2022-02-11 09:20:44 2022-02-11 09:20:44 Outpatient SFA SFA [id number] Matthew Brown 2022-02-05 11:38:34 2022-02-05 11:38:34 Outpatient SFA SFA [id number] Matthew Brown 2022-02-05 00:00:00 2022-02-05 00:00:00 Outpatient Visit [id number] 10:42:46 2021-11-17 10:42:46 Outpatient SFA SFA [id number] Matthew Bronw 2021-11-13 15:06:22 2021-11-13 15:06:22 Outpatient SFA SFA [id number] Matthew Brown 2021-11-13 00:00:00 2021-11-13 00:00:00 Outpatient Visit [id number] 2021-10-09 00:00:00 2021-10-09 00:00:00 Outpatient R ROSETTA GALLARDO [facility] [id number] [facility] 2021-10-01 00:00:00 2021-10-01 00:00:00 Patient Outreach ToniMalini Darryn [facility] 1.2.840.114 350.1.13.10 4.2.7.2.686 [id number] [facility] 2021-10-01 00:00:00 2021-10-01 00:00:00 Telephone ToniMalini Darryn [facility] 1.2.840.114 350.1.13.10 4.2.7.2.686 [id number] [facility] 2021-09-30 15:00:00 2021-09-30 16:30:37 Out[facility] [id number] [facility] 2021-09-30 15:00:00 2021-09-30 16:30:37 Outpatient R [facility]REW [facility]CO [facility] [id number] [facility] 2021-09-30 15:00:00 2021-09-30 16:30:37 Office Visit Dax Dorethacindyfran [facility] 1.2.840.114 350.1.13.10 4.2.7.2.686 [id number] [facility] 2021-09-30 00:00:00 2021-09-30 00:00:00 Orders Only Doctor Unassigned, [place] [facility] 1.2.840.114 350.1.13.10 4.2.7.2.686 [id number] [facility] 2021-07-24 00:00:00 2021-07-24 00:00:00 Orders Only Doctor Unassigned, [place] [facility] 1.2.840.114 350.1.13.10 4.2.7.2.686 [id number] [facility] 2021-04-11 14:20:00 2021-04-11 14:20:00 Outpatient R UNKNOWN, ATTENDING [facility] [id number] [facility] 2021-04-11 14:20:00 2021-04-11 14:20:00 Outpatient R UNKNOWN, ATTENDING [facility] [id number] [facility] 2021-04-07 21:43:00 2021-04-08 01:09:00 Emergency X LEXA GOFF [facility] [id number] [facility] 2021-04-07 21:43:00 2021-04-08 01:09:00 Emergency Lexa Goff [facility] 1.2.840.114 350.1.13.10 4.2.7.2.686 [id number] [facility] 2019-08-21 08:00:00 2019-08-21 08:00:00 Outpatient R PATRIA LEVY [facility] [id number] [facility] 2019-07-24 21:47:47 2019-07-25 02:18:00 Emergency X Santos MOISE [facility] ERT [id number] [facility] Results Test Description Test Time Test Comments Results Result Co mments Source [facility] [id number] 18:40:14* Test Item Value Reference Range Interpretation Comme nts VENTRICULAR RATE (test code = 75728) BPM ATRIAL RATE (test code = 23496) BPM P-R INTERVAL (test code = 68857) 134 ms QRS DURATION (test code = 31266) 80 ms Q-T INTERVAL (test code = 29124) 408 ms QTC CALCULATION(BEZE (test code = 39739) 437 ms CALCULATED P AXIS (test code = 55316) degrees CALCULATED R AXIS (test code = 71530) degrees CALCULATED T AXIS (test code = 58939) degrees DIAGNOSIS (test code = 71175) Normal sinus rhythmPossible Inferior infarct , age undeterminedPoor R-wave progressionBorderline ECGNo previous ECGs availableConfirmed by Radha MCCALL ([id number]) on 11/11/2022 1:40:13 PM [facility] ExternalLIPID [id number] 05:52:40* Test Item Value Reference Range Interpretation Comme nts CHOLESTEROL (test code = 2210) 174 MG/DL <200 TRIGLYCERIDES (test code = 2232) 192 MG/DL <150 H HDL CHOLESTEROL (test code = 2220) 45 MG/DL >39 CALC LDL CHOL (test code = 2237) 100 MG/DL <100 H NOTE: CALCULATED LDL IS BASED ON CHATO-[place] METHOD WHICHINCLUDES ADJUSTABLE TRIGLYCERIDE:VLDL CHOLESTEROL RATIO.THIS FACTOR VARIES BY MEASURED TRIGLYCERIDE AND NON-HDLCHOLESTEROL CONCENTRATIONS WITH INCREASED CALCULATED LDL SEENIN HIGHER TRIGLYCERIDE OR LOWER NON-HDL SPECIMENS. FOR MOREINFORMATION, SEE CLIENT ANNOUNCEMENT AT [email or web address] RISK RATIO LDL/HDL (test code = 2238) 2.22 RATIO <3.22 COMPREHENSIVE METABOLIC [id number] 05:52:40* Test Item Value Reference Range Interpretation Comme nts GLUCOSE (test code = 2217) 166 MG/DL 70-99 H BUN (test code = 2208) 33 MG/DL 6-20 H CREATININE (test code = 2214) 1.77 MG/DL 0.60-1.30 H eGFR (2020 CKD-EPI) (test code = 89905) 35 ML/MIN/1.73 >60 L CALC BUN/CREAT (test code = 2235) 19 RATIO 6-28 SODIUM (test code = 223) 141 MEQ/L 133-146 POTASSIUM (test code = 2228) 4.9 MEQ/L 3.5-5.4 CHLORIDE (test code = 2215) 108 MEQ/L 95-107 H CARBON DIOXIDE (test code = 2206) 22 MEQ/L 19-31 CALCIUM (test code = 2208) 9.2 MG/DL 8.5-10.5 PROTEIN, TOTAL (test code = 2228) 7.1 G/DL 6.1-8.3 ALBUMIN (test code = 1) 3.7 G/DL 3.5-5.2 CALC GLOBULIN (test code = 0) 3.4 G/DL 1.9-3.7 CALC A/G RATIO (test code = 2233) 1.1 RATIO 1.0-2.6 BILIRUBIN, TOTAL (test code = 7) <0.2 MG/DL See_Comment [Automated me ssage] The system which generated this result transmitted reference range: <=1.2. The reference range was not used to interpret this result as normal/abnormal. ALKALINE PHOSPHATASE (test code = 2203) 98 U/L 40-123 AST (test code = 8) 14 U/L 9-40 ALT (test code = 2218) 8 U/L 5-40 UNLESS OTHERWISE INDICATED, ALL TESTING PERFORMED [employer] [facility] [employer] [address] [place] [address] [employer] REPRESENTATIVE: JAYCEE RAMIREZ M.D. IA NUMBER [id number] [facility] [place]. [id number] HEMOGLOBIN [id number] 04:18:15* Test Item Value Reference Range Interpretation Comme [facility] HEMOGLOBIN A1c (test code = 83355) 7.5 % 4.2-5.6 H [employer] GUIDELINES FOR HGB A1C: PREDIABETES/INCREASED RISK . . . . . . . 5.7-6.4% DIAGNOSIS OF DIABETES . . . . . . . . . >=6.5% WITH CONFIRMATION OR APPROPRIATE SYMPTOMS NOTE: ASSAY MAY BE AFFECTED BY HEMOGLOBINOPATHIES (SICKLE CELL ANEMIA, S-C DISEASE, OTHERS) OR ARTIFICIALLY LOWERED BY DECREASED RED CELL SURVIVAL (HEMOLYTIC ANEMIAS, BLOOD LOSS, ETC.). CONSIDER ALTERNATE TESTING OR LABORATORY CONSULTATION. HEMOGLOBIN [id number] 00:00:00* Test Item Value Reference Range Interpretation Comme nts HEMOGLOBIN A1c (test code = 31569) 7.5 % HEMOGLOBIN [id number] 00:00:00* Test Item Value Reference Range Interpretation Comme [facility] HEMOGLOBIN A1c (test code = 09274) 7.5 % HEMOGLOBIN [id number] 00:00:00* Test Item Value Reference Range Interpretation Comme nts HEMOGLOBIN A1c (test code = 68252) 7.5 % LIPID [id number] 00:00:00* Test Item Value Reference Range Interpretation Comme nts CHOLESTEROL (test code = 2210) 174 MG/DL TRIGLYCERIDES (test code = 2232) 192 MG/DL HDL CHOLESTEROL (test code = 2220) 45 MG/DL CALC LDL CHOL (test code = 2237) 100 MG/DL RISK RATIO LDL/HDL (test cod e = 2238) 2.22 RATIO LIPID [id number] 00:00:00* Test Item Value Reference Range Interpretation Comme nts CHOLESTEROL (test code = 2210) 174 MG/DL TRIGLYCERIDES (test code = 2232) 192 MG/DL HDL CHOLESTEROL (test code = 2220) 45 MG/DL CALC LDL CHOL (test code = 2237) 100 MG/DL RISK RATIO LDL/HDL (test cod e = 2238) 2.22 RATIO COMPREHENSIVE METABOLIC [id number] 00:00:00* Test Item Value Reference Range Interpretation Comme nts GLUCOSE (test code = 2217) 166 MG/DL BUN (test code = 2208) 33 MG/DL CREATININE (test code = 2214) 1.77 MG/DL eGFR (2020 CKD-EPI) (test co de = 48352) 35 ML/MIN/1.73 CALC BUN/CREAT (test code = 2235) 19 RATIO SODIUM (test code = 2231) 141 MEQ/L POTASSIUM (test code = 2228) 4.9 MEQ/L CHLORIDE (test code = 2215) 108 MEQ/L CARBON DIOXIDE (test code = 2206) 22 MEQ/L CALCIUM (test code = 2209) 9.2 MG/DL PROTEIN, TOTAL (test code = 2229) 7.1 G/DL ALBUMIN (test code = 2201) 3.7 G/DL CALC GLOBULIN (test code = 2240) 3.4 G/DL CALC A/G RATIO (test code = 2234) 1.1 RATIO BILIRUBIN, TOTAL (test code = 2207) <0.2 MG/DL ALKALINE PHOSPHATASE (test code = 2204) 98 U/L AST (test code = 2218) 14 U/L ALT (test code = 2219) 8 U/L COMPREHENSIVE METABOLIC [id number] 00:00:00* Test Item Value Reference Range Interpretation Comme [facility] GLUCOSE (test code = 2217) 166 MG/DL BUN (test code = 2208) 33 MG/DL CREATININE (test code = 2214) 1.77 MG/DL eGFR (2020 CKD-EPI) (test co de = 20345) 35 ML/MIN/1.73 CALC BUN/CREAT (test code = 2235) 19 RATIO SODIUM (test code = 2231) 141 MEQ/L POTASSIUM (test code = 2228) 4.9 MEQ/L CHLORIDE (test code = 2215) 108 MEQ/L CARBON DIOXIDE (test code = 2206) 22 MEQ/L CALCIUM (test code = 2209) 9.2 MG/DL PROTEIN, TOTAL (test code = 2229) 7.1 G/DL ALBUMIN (test code = 2201) 3.7 G/DL CALC GLOBULIN (test code = 2240) 3.4 G/DL CALC A/G RATIO (test code = 2234) 1.1 RATIO BILIRUBIN, TOTAL (test code = 2207) <0.2 MG/DL ALKALINE PHOSPHATASE (test code = 2204) 98 U/L AST (test code = 2218) 14 U/L ALT (test code = 2219) 8 U/L POCT HEMOGLOBIN A1C [id number] 21:21:00* Test Item Value Reference Range Interpretation Comme [facility] POCT HBA1C (test code = 4548-4) 8.2 % 4-6 A Lab Interpretation (test cod e = 40119-9) [facility] [id number] 05:24:49* Test Item Value Reference Range Interpretation Comme [facility] HEMOGLOBIN A1c (test code = 16013) 7.8 % 4.2-5.6 H [employer] GUIDELINES FOR HGB A1C: PREDIABETES/INCREASED RISK . . . . . . . 5.7-6.4% DIAGNOSIS OF DIABETES . . . . . . . . . >=6.5% WITH CONFIRMATION OR APPROPRIATE SYMPTOMS NOTE: ASSAY MAY BE AFFECTED BY HEMOGLOBINOPATHIES (SICKLE CELL ANEMIA, S-C DISEASE, OTHERS) OR ARTIFICIALLY LOWERED BY DECREASED RED CELL SURVIVAL (HEMOLYTIC ANEMIAS, BLOOD LOSS, ETC.). CONSIDER ALTERNATE TESTING OR LABORATORY CONSULTATION. LIPID [id number] 05:18:45* Test Item Value Reference Range Interpretation Comme nts CHOLESTEROL (test code = 2210) 222 MG/DL <200 H TRIGLYCERIDES (test code = 2232) 313 MG/DL <150 H HDL CHOLESTEROL (test code = 2220) 39 MG/DL >39 L CALC LDL CHOL (test code = 2237) 138 MG/DL <100 H NOTE: CALCULATED LDL IS BASED ON [place] METHOD WHICHINCLUDES ADJUSTABLE TRIGLYCERIDE:VLDL CHOLESTEROL RATIO.THIS FACTOR VARIES BY MEASURED TRIGLYCERIDE AND NON-HDLCHOLESTEROL CONCENTRATIONS WITH INCREASED CALCULATED LDL SEENIN HIGHER TRIGLYCERIDE OR LOWER NON-HDL SPECIMENS. FOR MOREINFORMATION, SEE CLIENT ANNOUNCEMENT AT [email or web address] LDL/HDL (test code = 2238) 3.54 RATIO <3.22 H COMPREHENSIVE METABOLIC [id number] 05:18:45* Test Item Value Reference Range Interpretation Comme nts GLUCOSE (test code = 2217) 202 MG/DL 70-99 H BUN (test code = 2208) 23 MG/DL 6-20 H CREATININE (test code = 2214) 1.57 MG/DL 0.60-1.30 H eGFR (2020 CKD-EPI) (test code = 54547) 41 ML/MIN/1.73 >60 L CALC BUN/CREAT (test code = 2235) 15 RATIO 6-28 SODIUM (test code = 2231) 139 MEQ/L 133-146 POTASSIUM (test code = 2228) 4.6 MEQ/L 3.5-5.4 CHLORIDE (test code = 2215) 102 MEQ/L 95-107 CARBON DIOXIDE (test code = 2206) 29 MEQ/L 19-31 CALCIUM (test code = 2209) 9.3 MG/DL 8.5-10.5 PROTEIN, TOTAL (test code = 2229) 7.0 G/DL 6.1-8.3 ALBUMIN (test code = 2201) 3.6 G/DL 3.5-5.2 CALC GLOBULIN (test code = 2240) 3.4 G/DL 1.9-3.7 CALC A/G RATIO (test code = 2234) 1.1 RATIO 1.0-2.6 BILIRUBIN, TOTAL (test code = 2207) <0.2 MG/DL See_Comment [Automated me ssage] The system which generated this result transmitted reference range: <=1.2. The reference range was not used to interpret this result as normal/abnormal. ALKALINE PHOSPHATASE (test code = 2204) 98 U/L 40-120 AST (test code = 2218) 10 U/L 9-40 ALT (test code = 2219) 11 U/L 5-40 UNLESS OTHERWISE INDICATED, ALL TESTING PERFORMED [facility] [employer] [address] [place] [address] [employer] REPRESENTATIVE: JAYCEE RAMIREZ M.D. IA NUMBER [id number] [facility] [place]. [id number] COMPREHENSIVE METABOLIC PANEL [ADDED]2021-07-26 00:00:00* Test Item Value Reference Range Interpretation Comme nts GLUCOSE (test code = 2217) 202 MG/DL BUN (test code = 2208) 23 MG/DL CREATININE (test code = 2214) 1.57 MG/DL eGFR (2020 CKD-EPI) (test co de = 63199) 41 ML/MIN/1.73 CALC BUN/CREAT (test code = 2235) 15 RATIO SODIUM (test code = 2231) 139 MEQ/L POTASSIUM (test code = 2228) 4.6 MEQ/L CHLORIDE (test code = 2215) 102 MEQ/L CARBON DIOXIDE (test code = 2206) 29 MEQ/L CALCIUM (test code = 2209) 9.3 MG/DL PROTEIN, TOTAL (test code = 2229) 7.0 G/DL ALBUMIN (test code = 2201) 3.6 G/DL CALC GLOBULIN (test code = 2240) 3.4 G/DL CALC A/G RATIO (test code = 2234) 1.1 RATIO BILIRUBIN, TOTAL (test code = 2207) <0.2 MG/DL ALKALINE PHOSPHATASE (test code = 2204) 98 U/L AST (test code = 2218) 10 U/L ALT (test code = 2219) 11 U/L HEMOGLOBIN A1c [ADDED]2021-07-26 00:00:00* Test Item Value Reference Range Interpretation Comme nts HEMOGLOBIN A1c (test code = 00782) 7.8 % HEMOGLOBIN A1c [ADDED]2021-07-26 00:00:00* Test Item Value Reference Range Interpretation Comme nts HEMOGLOBIN A1c (test code = 13555) 7.8 % HEMOGLOBIN A1c [ADDED]2021-07-26 00:00:00* Test Item Value Reference Range Interpretation Comme nts HEMOGLOBIN A1c (test code = 08351) 7.8 % LIPID PANEL [ADDED]2021-07-26 00:00:00* Test Item Value Reference Range Interpretation Comme nts CHOLESTEROL (test code = 2210) 222 MG/DL TRIGLYCERIDES (test code = 2232) 313 MG/DL HDL CHOLESTEROL (test code = 2220) 39 MG/DL CALC LDL CHOL (test code = 2237) 138 MG/DL RISK RATIO LDL/HDL (test cod e = 2238) 3.54 RATIO LIPID PANEL [ADDED]2021-07-26 00:00:00* Test Item Value Reference Range Interpretation Comme nts CHOLESTEROL (test code = 2210) 222 MG/DL TRIGLYCERIDES (test code = 2232) 313 MG/DL HDL CHOLESTEROL (test code = 2220) 39 MG/DL CALC LDL CHOL (test code = 2237) 138 MG/DL RISK RATIO LDL/HDL (test cod e = 2238) 3.54 RATIO COMPREHENSIVE METABOLIC PANEL [ADDED]2021-07-26 00:00:00* Test Item Value Reference Range Interpretation Comme nts GLUCOSE (test code = 2217) 202 MG/DL BUN (test code = 2208) 23 MG/DL CREATININE (test code = 2214) 1.57 MG/DL eGFR (2020 CKD-EPI) (test co de = 28811) 41 ML/MIN/1.73 CALC BUN/CREAT (test code = 2235) 15 RATIO SODIUM (test code = 2231) 139 MEQ/L POTASSIUM (test code = 2228) 4.6 MEQ/L CHLORIDE (test code = 2215) 102 MEQ/L CARBON DIOXIDE (test code = 2206) 29 MEQ/L CALCIUM (test code = 2209) 9.3 MG/DL PROTEIN, TOTAL (test code = 2229) 7.0 G/DL ALBUMIN (test code = 2201) 3.6 G/DL CALC GLOBULIN (test code = 2240) 3.4 G/DL CALC A/G RATIO (test code = 2234) 1.1 RATIO BILIRUBIN, TOTAL (test code = 2207) <0.2 MG/DL ALKALINE PHOSPHATASE (test code = 2204) 98 U/L AST (test code = 2218) 10 U/L ALT (test code = 2219) 11 U/L COMPREHENSIVE METABOLIC PANEL [ADDED]2021-07-26 00:00:00* Test Item Value Reference Range Interpretation Comme nts GLUCOSE (test code = 2217) 202 MG/DL BUN (test code = 2208) 23 MG/DL CREATININE (test code = 2214) 1.57 MG/DL eGFR (2020 CKD-EPI) (test co de = 30786) 41 ML/MIN/1.73 CALC BUN/CREAT (test code = 2235) 15 RATIO SODIUM (test code = 2231) 139 MEQ/L POTASSIUM (test code = 2228) 4.6 MEQ/L CHLORIDE (test code = 2215) 102 MEQ/L CARBON DIOXIDE (test code = 2206) 29 MEQ/L CALCIUM (test code = 2209) 9.3 MG/DL PROTEIN, TOTAL (test code = 2229) 7.0 G/DL ALBUMIN (test code = 2201) 3.6 G/DL CALC GLOBULIN (test code = 2240) 3.4 G/DL CALC A/G RATIO (test code = 2234) 1.1 RATIO BILIRUBIN, TOTAL (test code = 2207) <0.2 MG/DL ALKALINE PHOSPHATASE (test code = 2204) 98 U/L AST (test code = 2218) 10 U/L ALT (test code = 2219) 11 U/L HEMOGLOBIN A1c [ADDED]2021-07-26 00:00:00* Test Item Value Reference Range Interpretation Comme nts HEMOGLOBIN A1c (test code = 57880) 7.8 % HEMOGLOBIN A1c [ADDED]2021-07-26 00:00:00* Test Item Value Reference Range Interpretation Comme nts HEMOGLOBIN A1c (test code = 28951) 7.8 % HEMOGLOBIN A1c [ADDED]2021-07-26 00:00:00* Test Item Value Reference Range Interpretation Comme nts HEMOGLOBIN A1c (test code = 61147) 7.8 % LIPID PANEL [ADDED]2021-07-26 00:00:00* Test Item Value Reference Range Interpretation Comme nts CHOLESTEROL (test code = 2210) 222 MG/DL TRIGLYCERIDES (test code = 2232) 313 MG/DL HDL CHOLESTEROL (test code = 2220) 39 MG/DL CALC LDL CHOL (test code = 2237) 138 MG/DL RISK RATIO LDL/HDL (test cod e = 2238) 3.54 RATIO LIPID PANEL [ADDED]2021-07-26 00:00:00* Test Item Value Reference Range Interpretation Comme nts CHOLESTEROL (test code = 2210) 222 MG/DL TRIGLYCERIDES (test code = 2232) 313 MG/DL HDL CHOLESTEROL (test code = 2220) 39 MG/DL CALC LDL CHOL (test code = 2237) 138 MG/DL RISK RATIO LDL/HDL (test cod e = 2238) 3.54 RATIO COMPREHENSIVE METABOLIC PANEL [ADDED]2021-07-26 00:00:00* Test Item Value Reference Range Interpretation Comme nts GLUCOSE (test code = 2217) 202 MG/DL BUN (test code = 2208) 23 MG/DL CREATININE (test code = 2214) 1.57 MG/DL eGFR (2020 CKD-EPI) (test co de = 05476) 41 ML/MIN/1.73 CALC BUN/CREAT (test code = 2235) 15 RATIO SODIUM (test code = 2231) 139 MEQ/L POTASSIUM (test code = 2228) 4.6 MEQ/L CHLORIDE (test code = 2215) 102 MEQ/L CARBON DIOXIDE (test code = 2206) 29 MEQ/L CALCIUM (test code = 2209) 9.3 MG/DL PROTEIN, TOTAL (test code = 2229) 7.0 G/DL ALBUMIN (test code = 2201) 3.6 G/DL CALC GLOBULIN (test code = 2240) 3.4 G/DL CALC A/G RATIO (test code = 2234) 1.1 RATIO BILIRUBIN, TOTAL (test code = 2207) <0.2 MG/DL ALKALINE PHOSPHATASE (test code = 2204) 98 U/L AST (test code = 2218) 10 U/L ALT (test code = 2219) 11 U/L HEMOGLOBIN [id number] 06:11:51* Test Item Value Reference Range Interpretation Comme nts HEMOGLOBIN A1c (test code = 56441) 10.8 % 4.2-5.6 H [employer] GUIDELINES FOR HGB A1C: PREDIABETES/INCREASED RISK . . . . . . . 5.7-6.4% DIAGNOSIS OF DIABETES . . . . . . . . . >=6.5% WITH CONFIRMATION OR APPROPRIATE SYMPTOMS NOTE: ASSAY MAY BE AFFECTED BY HEMOGLOBINOPATHIES (SICKLE CELL ANEMIA, S-C DISEASE, OTHERS) OR ARTIFICIALLY LOWERED BY DECREASED RED CELL SURVIVAL (HEMOLYTIC ANEMIAS, BLOOD LOSS, ETC.). CONSIDER ALTERNATE TESTING OR LABORATORY CONSULTATION. LIPID [id number] 05:14:42* Test Item Value Reference Range Interpretation Comme nts CHOLESTEROL (test code = 2210) 235 MG/DL <200 H TRIGLYCERIDES (test code = 2232) 215 MG/DL <150 H HDL CHOLESTEROL (test code = 2220) 51 MG/DL >39 CALC LDL CHOL (test code = 2237) 148 MG/DL <100 H NOTE: CALCULATED LDL IS BASED ON [place] METHOD WHICHINCLUDES ADJUSTABLE TRIGLYCERIDE:VLDL CHOLESTEROL RATIO.THIS FACTOR VARIES BY MEASURED TRIGLYCERIDE AND NON-HDLCHOLESTEROL CONCENTRATIONS WITH INCREASED CALCULATED LDL SEENIN HIGHER TRIGLYCERIDE OR LOWER NON-HDL SPECIMENS. FOR MOREINFORMATION, SEE CLIENT ANNOUNCEMENT AT [email or web address] LDL/HDL (test code = 2238) 2.90 RATIO <3.22 COMPREHENSIVE METABOLIC [id number] 05:14:42* Test Item Value Reference Range Interpretation Comme nts GLUCOSE (test code = 2217) 58 MG/DL 70-99 L BUN (test code = 2208) 19 MG/DL 6-20 CREATININE (test code = 2214) 1.40 MG/DL 0.60-1.30 H eGFR (2020 CKD-EPI) (test code = 03555) 47 ML/MIN/1.73 >60 L CALC BUN/CREAT (test code = 2235) 14 RATIO 6-28 SODIUM (test code = 2231) 143 MEQ/L 133-146 POTASSIUM (test code = 2228) 4.7 MEQ/L 3.5-5.4 CHLORIDE (test code = 2215) 107 MEQ/L 95-107 CARBON DIOXIDE (test code = 2206) 23 MEQ/L 19-31 CALCIUM (test code = 2209) 9.0 MG/DL 8.5-10.5 PROTEIN, TOTAL (test code = 222) 7.0 G/DL 6.1-8.3 ALBUMIN (test code = 2201) 3.5 G/DL 3.5-5.2 CALC GLOBULIN (test code = 2240) 3.5 G/DL 1.9-3.7 CALC A/G RATIO (test code = 2234) 1.0 RATIO 1.0-2.6 BILIRUBIN, TOTAL (test code = 2207) <0.2 MG/DL See_Comment [Automated me ssage] The system which generated this result transmitted reference range: <=1.2. The reference range was not used to interpret this result as normal/abnormal. ALKALINE PHOSPHATASE (test code = 2204) 109 U/L 40-120 AST (test code = 2218) 14 U/L 9-40 ALT (test code = 2219) 11 U/L 5-40 UNLESS OTHERWISE INDICATED, ALL TESTING PERFORMED [facility] [employer] [address] [place] [address] [employer] REPRESENTATIVE: JAYCEE RAMIREZ M.D. CLIA NUMBER [id number] [place]. [id number] COMPREHENSIVE METABOLIC [id number] 00:00:00* Test Item Value Reference Range Interpretation Comme nts GLUCOSE (test code = 2217) 58 MG/DL BUN (test code = 2208) 19 MG/DL CREATININE (test code = 2214) 1.40 MG/DL eGFR (2020 CKD-EPI) (test co de = 43094) 47 ML/MIN/1.73 CALC BUN/CREAT (test code = 2235) 14 RATIO SODIUM (test code = 2231) 143 MEQ/L POTASSIUM (test code = 2228) 4.7 MEQ/L CHLORIDE (test code = 2215) 107 MEQ/L CARBON DIOXIDE (test code = 2206) 23 MEQ/L CALCIUM (test code = 2209) 9.0 MG/DL PROTEIN, TOTAL (test code = 2229) 7.0 G/DL ALBUMIN (test code = 2201) 3.5 G/DL CALC GLOBULIN (test code = 2240) 3.5 G/DL CALC A/G RATIO (test code = 2234) 1.0 RATIO BILIRUBIN, TOTAL (test code = 2207) <0.2 MG/DL ALKALINE PHOSPHATASE (test code = 2204) 109 U/L AST (test code = 2218) 14 U/L ALT (test code = 2219) 11 U/L COMPREHENSIVE METABOLIC [id number] 00:00:00* Test Item Value Reference Range Interpretation Comme nts GLUCOSE (test code = 2217) 58 MG/DL BUN (test code = 2208) 19 MG/DL CREATININE (test code = 2214) 1.40 MG/DL eGFR (2020 CKD-EPI) (test co de = 72151) 47 ML/MIN/1.73 CALC BUN/CREAT (test code = 2235) 14 RATIO SODIUM (test code = 2231) 143 MEQ/L POTASSIUM (test code = 2228) 4.7 MEQ/L CHLORIDE (test code = 2215) 107 MEQ/L CARBON DIOXIDE (test code = 2206) 23 MEQ/L CALCIUM (test code = 2209) 9.0 MG/DL PROTEIN, TOTAL (test code = 2229) 7.0 G/DL ALBUMIN (test code = 2201) 3.5 G/DL CALC GLOBULIN (test code = 2240) 3.5 G/DL CALC A/G RATIO (test code = 2234) 1.0 RATIO BILIRUBIN, TOTAL (test code = 2207) <0.2 MG/DL ALKALINE PHOSPHATASE (test code = 2204) 109 U/L AST (test code = 2218) 14 U/L ALT (test code = 2219) 11 U/L HEMOGLOBIN [id number] 00:00:00* Test Item Value Reference Range Interpretation Comme nts HEMOGLOBIN A1c (test code = 74403) 10.8 % HEMOGLOBIN [id number] 00:00:00* Test Item Value Reference Range Interpretation Comme nts HEMOGLOBIN A1c (test code = 30553) 10.8 % HEMOGLOBIN [id number] 00:00:00* Test Item Value Reference Range Interpretation Comme nts HEMOGLOBIN A1c (test code = 33834) 10.8 % LIPID [id number] 00:00:00* Test Item Value Reference Range Interpretation Comme nts CHOLESTEROL (test code = 2210) 235 MG/DL TRIGLYCERIDES (test code = 2232) 215 MG/DL HDL CHOLESTEROL (test code = 2220) 51 MG/DL CALC LDL CHOL (test code = 2237) 148 MG/DL RISK RATIO LDL/HDL (test cod e = 2238) 2.90 RATIO LIPID [id number] 00:00:00* Test Item Value Reference Range Interpretation Comme nts CHOLESTEROL (test code = 2210) 235 MG/DL TRIGLYCERIDES (test code = 2232) 215 MG/DL HDL CHOLESTEROL (test code = 2220) 51 MG/DL CALC LDL CHOL (test code = 2237) 148 MG/DL RISK RATIO LDL/HDL (test cod e = 2238) 2.90 RATIO COMPREHENSIVE METABOLIC [id number] 00:00:00* Test Item Value Reference Range Interpretation Comme nts GLUCOSE (test code = 2217) 58 MG/DL BUN (test code = 2208) 19 MG/DL CREATININE (test code = 2214) 1.40 MG/DL eGFR (2020 CKD-EPI) (test co de = 77549) 47 ML/MIN/1.73 CALC BUN/CREAT (test code = 2235) 14 RATIO SODIUM (test code = 2231) 143 MEQ/L POTASSIUM (test code = 2228) 4.7 MEQ/L CHLORIDE (test code = 2215) 107 MEQ/L CARBON DIOXIDE (test code = 2206) 23 MEQ/L CALCIUM (test code = 2209) 9.0 MG/DL PROTEIN, TOTAL (test code = 2229) 7.0 G/DL ALBUMIN (test code = 2201) 3.5 G/DL CALC GLOBULIN (test code = 2240) 3.5 G/DL CALC A/G RATIO (test code = 2234) 1.0 RATIO BILIRUBIN, TOTAL (test code = 2207) <0.2 MG/DL ALKALINE PHOSPHATASE (test code = 2204) 109 U/L AST (test code = 2218) 14 U/L ALT (test code = 2219) 11 U/L COMPREHENSIVE METABOLIC [id number] 00:00:00* Test Item Value Reference Range Interpretation Comme nts GLUCOSE (test code = 2217) 58 MG/DL BUN (test code = 2208) 19 MG/DL CREATININE (test code = 2214) 1.40 MG/DL eGFR (2020 CKD-EPI) (test co de = 09849) 47 ML/MIN/1.73 CALC BUN/CREAT (test code = 2235) 14 RATIO SODIUM (test code = 2231) 143 MEQ/L POTASSIUM (test code = 2228) 4.7 MEQ/L CHLORIDE (test code = 2215) 107 MEQ/L CARBON DIOXIDE (test code = 2206) 23 MEQ/L CALCIUM (test code = 2209) 9.0 MG/DL PROTEIN, TOTAL (test code = 2229) 7.0 G/DL ALBUMIN (test code = 2201) 3.5 G/DL CALC GLOBULIN (test code = 2240) 3.5 G/DL CALC A/G RATIO (test code = 2234) 1.0 RATIO BILIRUBIN, TOTAL (test code = 2207) <0.2 MG/DL ALKALINE PHOSPHATASE (test code = 2204) 109 U/L AST (test code = 2218) 14 U/L ALT (test code = 2219) 11 U/L HEMOGLOBIN [id number] 00:00:00* Test Item Value Reference Range Interpretation Comme nts HEMOGLOBIN A1c (test code = 73092) 10.8 % HEMOGLOBIN [id number] 00:00:00* Test Item Value Reference Range Interpretation Comme nts HEMOGLOBIN A1c (test code = 48934) 10.8 % HEMOGLOBIN [id number] 00:00:00* Test Item Value Reference Range Interpretation Comme nts HEMOGLOBIN A1c (test code = 34853) 10.8 % LIPID [id number] 00:00:00* Test Item Value Reference Range Interpretation Comme nts CHOLESTEROL (test code = 2210) 235 MG/DL TRIGLYCERIDES (test code = 2232) 215 MG/DL HDL CHOLESTEROL (test code = 2220) 51 MG/DL CALC LDL CHOL (test code = 2237) 148 MG/DL RISK RATIO LDL/HDL (test cod e = 2238) 2.90 RATIO LIPID [id number] 00:00:00* Test Item Value Reference Range Interpretation Comme nts CHOLESTEROL (test code = 2210) 235 MG/DL TRIGLYCERIDES (test code = 2232) 215 MG/DL HDL CHOLESTEROL (test code = 2220) 51 MG/DL CALC LDL CHOL (test code = 2237) 148 MG/DL RISK RATIO LDL/HDL (test cod e = 2238) 2.90 RATIO HEMOGLOBIN [id number] 11:23:29* Test Item Value Reference Range Interpretation Comme nts HEMOGLOBIN A1c (test code = 52396) 13.0 % 4.2-5.6 H [employer] GUIDELINES FOR HGB A1C: PREDIABETES/INCREASED RISK . . . . . . . 5.7-6.4% DIAGNOSIS OF DIABETES . . . . . . . . . >=6.5% WITH CONFIRMATION OR APPROPRIATE SYMPTOMS NOTE: ASSAY MAY BE AFFECTED BY HEMOGLOBINOPATHIES (SICKLE CELL ANEMIA, S-C DISEASE, OTHERS) OR ARTIFICIALLY LOWERED BY DECREASED RED CELL SURVIVAL (HEMOLYTIC ANEMIAS, BLOOD LOSS, ETC.). CONSIDER ALTERNATE TESTING OR LABORATORY CONSULTATION. CBC W/AUTO DIFF WITH [id number] 10:40:41* Test Item Value Reference Range Interpretation Comme nts WBC (test code = 1001) 7.8 K/UL 3.5-11.0 RBC (test code = 1002) 3.10 M/UL 3.80-5.40 L HEMOGLOBIN (test code = 1003) 9.0 G/DL 11.5-15.5 L HEMATOCRIT (test code = 1004) 27.1 % 34.0-45.0 L MCV (test code = 1005) 87.4 fL 80.0-99.0 MCH (test code = 1006) 29.0 PG 25.0-33.0 MCHC (test code = 1007) 33.2 G/DL 31.0-36.0 RDW (test code = 1038) 13.5 % 11.5-15.0 NEUTROPHILS (test code = 1008) 57.8 % LYMPHOCYTES (test code = 1010) 32.4 % MONOCYTES (test code = 1011) 8.1 % EOSINOPHILS (test code = 1012) 1.0 % BASOPHILS (test code = 1013) 0.4 % IMMATURE GRANULOCYTES (test code = 1036) 0.3 % NUCLEATED RBCS (test code = 1065) 0.0 /100 WBC'S See_Comment [Automated messa ge] The system which generated this result transmitted reference range: 0.0. The reference range was not used to interpret this result as normal/abnormal. PLATELET COUNT (test code = 1015) 509 K/UL 130-400 H ABSOLUTE NEUTROPHILS (test code = 1066) 4.52 K/UL 1.50-7.50 ABSOLUTE LYMPHOCYTES (test code = 1067) 2.53 K/UL 1.00-4.00 ABSOLUTE MONOCYTES (test code = 1068) 0.63 K/UL 0.20-1.00 ABSOLUTE EOSINOPHILS (test code = 1040) 0.08 K/UL 0.00-0.50 ABSOLUTE BASOPHILS (test code = 1069) 0.03 K/UL 0.00-0.20 ABS IMMATURE GRANULOCYTES (test code = 1020) 0.02 K/UL 0.00-0.10 ABS NUCLEATED RBCS (test code = 36790) 0.00 K/UL 0.00-0.11 TSH, THIRD [id number] 06:03:58* Test Item Value Reference Range Interpretation Comme nts TSH, THIRD GENERATION (test code = 2821) 5.840 UIU/ML 0.400-4.100 H UNLESS OTHERWISE INDICATED, ALL TESTING PERFORMED [facility] [employer] [address] [place] [address] [employer] REPRESENTATIVE: JAYCEE RAMIREZ M.D. IA NUMBER [id number] [facility] [place]. [id number] LIPID [id number] 05:12:52* Test Item Value Reference Range Interpretation Comme nts CHOLESTEROL (test code = 2210) 278 MG/DL <200 H TRIGLYCERIDES (test code = 2232) 553 MG/DL <150 H HDL CHOLESTEROL (test code = 2220) 38 MG/DL >39 L CALC LDL CHOL (test code = 2237) (NOTE) MG/DL <100 UNABLE TO CALCUL ATE A VALID LDL CHOLESTEROL WHEN THE TRIGLYCERIDEVALUE IS GREATER THAN 400 MG/DL. NOTE: CALCULATED LDL IS BASED ON [place] METHOD WHICHINCLUDES ADJUSTABLE TRIGLYCERIDE:VLDL CHOLESTEROL RATIO.THIS FACTOR VARIES BY MEASURED TRIGLYCERIDE AND NON-HDLCHOLESTEROL CONCENTRATIONS WITH INCREASED CALCULATED LDL SEENIN HIGHER TRIGLYCERIDE OR LOWER NON-HDL SPECIMENS. FOR MOREINFORMATION, SEE CLIENT ANNOUNCEMENT AT [email or web address] RISK RATIO LDL/HDL (test code = 2238) 4.13 RATIO <3.22 H UNABLE TO DONNA CULATE COMPREHENSIVE METABOLIC [id number] 05:12:52* Test Item Value Reference Range Interpretation Comme nts GLUCOSE (test code = 2217) 304 MG/DL 70-99 H BUN (test code = 2208) 26 MG/DL 6-20 H CREATININE (test code = 2214) 1.81 MG/DL 0.60-1.30 H eGFR (2020 CKD-EPI) (test code = 07784) 34 ML/MIN/1.73 >60 L CALC BUN/CREAT (test code = 2235) 14 RATIO 6-28 SODIUM (test code = 223) 137 MEQ/L 133-146 POTASSIUM (test code = 2228) 4.7 MEQ/L 3.5-5.4 CHLORIDE (test code = 2215) 99 MEQ/L 95-107 CARBON DIOXIDE (test code = 2206) 26 MEQ/L 19-31 CALCIUM (test code = 2209) 8.7 MG/DL 8.5-10.5 PROTEIN, TOTAL (test code = 2229) 6.9 G/DL 6.1-8.3 ALBUMIN (test code = 2201) 3.4 G/DL 3.5-5.2 L CALC GLOBULIN (test code = 2240) 3.5 G/DL 1.9-3.7 CALC A/G RATIO (test code = 2234) 1.0 RATIO 1.0-2.6 BILIRUBIN, TOTAL (test code = 2207) <0.2 MG/DL See_Comment [Automated me ssage] The system which generated this result transmitted reference range: <=1.2. The reference range was not used to interpret this result as normal/abnormal. ALKALINE PHOSPHATASE (test code = 2204) 124 U/L 40-120 H AST (test code = 2218) 15 U/L 9-40 ALT (test code = 2219) 13 U/L 5-40 COMPREHENSIVE METABOLIC [id number] 00:00:00* Test Item Value Reference Range Interpretation Comme nts GLUCOSE (test code = 2217) 304 MG/DL BUN (test code = 2208) 26 MG/DL CREATININE (test code = 2214) 1.81 MG/DL eGFR (2020 CKD-EPI) (test co de = 69822) 34 ML/MIN/1.73 CALC BUN/CREAT (test code = 2235) 14 RATIO SODIUM (test code = 2231) 137 MEQ/L POTASSIUM (test code = 2228) 4.7 MEQ/L CHLORIDE (test code = 2215) 99 MEQ/L CARBON DIOXIDE (test code = 2206) 26 MEQ/L CALCIUM (test code = 2209) 8.7 MG/DL PROTEIN, TOTAL (test code = 2229) 6.9 G/DL ALBUMIN (test code = 2201) 3.4 G/DL CALC GLOBULIN (test code = 2240) 3.5 G/DL CALC A/G RATIO (test code = 2234) 1.0 RATIO BILIRUBIN, TOTAL (test code = 2207) <0.2 MG/DL ALKALINE PHOSPHATASE (test code = 2204) 124 U/L AST (test code = 2218) 15 U/L ALT (test code = 2219) 13 U/L COMPREHENSIVE METABOLIC [id number] 00:00:00* Test Item Value Reference Range Interpretation Comme nts GLUCOSE (test code = 2217) 304 MG/DL BUN (test code = 2208) 26 MG/DL CREATININE (test code = 2214) 1.81 MG/DL eGFR (2020 CKD-EPI) (test co de = 74052) 34 ML/MIN/1.73 CALC BUN/CREAT (test code = 2235) 14 RATIO SODIUM (test code = 2231) 137 MEQ/L POTASSIUM (test code = 2228) 4.7 MEQ/L CHLORIDE (test code = 2215) 99 MEQ/L CARBON DIOXIDE (test code = 2206) 26 MEQ/L CALCIUM (test code = 2209) 8.7 MG/DL PROTEIN, TOTAL (test code = 2229) 6.9 G/DL ALBUMIN (test code = 2201) 3.4 G/DL CALC GLOBULIN (test code = 2240) 3.5 G/DL CALC A/G RATIO (test code = 2234) 1.0 RATIO BILIRUBIN, TOTAL (test code = 2207) <0.2 MG/DL ALKALINE PHOSPHATASE (test code = 2204) 124 U/L AST (test code = 2218) 15 U/L ALT (test code = 2219) 13 U/L [id number] 00:00:00* Test Item Value Reference Range Interpretation Comme nts TSH, THIRD GENERATION (test code = 2821) 5.840 UIU/ML [id number] 00:00:00* Test Item Value Reference Range Interpretation Comme nts TSH, THIRD GENERATION (test code = 2821) 5.840 UIU/ML [id number] 00:00:00* Test Item Value Reference Range Interpretation Comme nts TSH, THIRD GENERATION (test code = 2821) 5.840 UIU/ML CBC W/AUTO [id number] 00:00:00* Test Item Value Reference Range Interpretation Comme nts WBC (test code = 1001) 7.8 K/UL [...] = 1013) 0.4 % IMMATURE GRANULOCYTES (test code = 1036) 0.3 % NUCLEATED RBCS (test code = 1065) 0.0 /100WBC'S PLATELET COUNT (test code = 1015) 509 K/UL ABSOLUTE NEUTROPHILS (test c ode = 1066) 4.52 K/UL ABSOLUTE LYMPHOCYTES (test c ode = 1067) 2.53 K/UL ABSOLUTE MONOCYTES (test cod e = 1068) 0.63 K/UL ABSOLUTE EOSINOPHILS (test c ode = 1040) 0.08 K/UL ABSOLUTE BASOPHILS (test cod e = 1069) 0.03 K/UL ABS IMMATURE GRANULOCYTES (t est code = 1020) 0.02 K/UL ABS NUCLEATED RBCS (test cod e = 10591) 0.00 K/UL CBC W/AUTO [id number] 00:00:00* Test Item Value Reference Range Interpretation Comme nts WBC (test code = 1001) 7.8 K/UL [...] = 1013) 0.4 % IMMATURE GRANULOCYTES (test code = 1036) 0.3 % NUCLEATED RBCS (test code = 1065) 0.0 /100WBC'S PLATELET COUNT (test code = 1015) 509 K/UL ABSOLUTE NEUTROPHILS (test c ode = 1066) 4.52 K/UL ABSOLUTE LYMPHOCYTES (test c ode = 1067) 2.53 K/UL ABSOLUTE MONOCYTES (test cod e = 1068) 0.63 K/UL ABSOLUTE EOSINOPHILS (test c ode = 1040) 0.08 K/UL ABSOLUTE BASOPHILS (test cod e = 1069) 0.03 K/UL ABS IMMATURE GRANULOCYTES (t est code = 1020) 0.02 K/UL ABS NUCLEATED RBCS (test cod e = 87485) 0.00 K/UL CBC W/AUTO [id number] 00:00:00* Test Item Value Reference Range Interpretation Comme nts WBC (test code = 1001) 7.8 K/UL [...] = 1013) 0.4 % IMMATURE GRANULOCYTES (test code = 1036) 0.3 % NUCLEATED RBCS (test code = 1065) 0.0 /100WBC'S PLATELET COUNT (test code = 1015) 509 K/UL ABSOLUTE NEUTROPHILS (test c ode = 1066) 4.52 K/UL ABSOLUTE LYMPHOCYTES (test c ode = 1067) 2.53 K/UL ABSOLUTE MONOCYTES (test cod e = 1068) 0.63 K/UL ABSOLUTE EOSINOPHILS (test c ode = 1040) 0.08 K/UL ABSOLUTE BASOPHILS (test cod e = 1069) 0.03 K/UL ABS IMMATURE GRANULOCYTES (t est code = 1020) 0.02 K/UL ABS NUCLEATED RBCS (test cod e = 51839) 0.00 K/UL HEMOGLOBIN [id number] 00:00:00* Test Item Value Reference Range Interpretation Comme nts HEMOGLOBIN A1c (test code = 46011) 13.0 % HEMOGLOBIN [id number] 00:00:00* Test Item Value Reference Range Interpretation Comme nts HEMOGLOBIN A1c (test code = 34282) 13.0 % HEMOGLOBIN [id number] 00:00:00* Test Item Value Reference Range Interpretation Comme nts HEMOGLOBIN A1c (test code = 68232) 13.0 % LIPID [id number] 00:00:00* Test Item Value Reference Range Interpretation Comme nts CHOLESTEROL (test code = 2210) 278 MG/DL TRIGLYCERIDES (test code = 2232) 553 MG/DL HDL CHOLESTEROL (test code = 2220) 38 MG/DL CALC LDL CHOL (test code = 2237) (NOTE) MG/DL RISK RATIO LDL/HDL (test cod e = 2238) 4.13 RATIO LIPID [id number] 00:00:00* Test Item Value Reference Range Interpretation Comme nts CHOLESTEROL (test code = 2210) 278 MG/DL TRIGLYCERIDES (test code = 2232) 553 MG/DL HDL CHOLESTEROL (test code = 2220) 38 MG/DL CALC LDL CHOL (test code = 2237) (NOTE) MG/DL RISK RATIO LDL/HDL (test cod e = 2238) 4.13 RATIO COMPREHENSIVE METABOLIC [id number] 00:00:00* Test Item Value Reference Range Interpretation Comme nts GLUCOSE (test code = 2217) 304 MG/DL BUN (test code = 2208) 26 MG/DL CREATININE (test code = 2214) 1.81 MG/DL eGFR (2020 CKD-EPI) (test co de = 39467) 34 ML/MIN/1.73 CALC BUN/CREAT (test code = 2235) 14 RATIO SODIUM (test code = 2231) 137 MEQ/L POTASSIUM (test code = 2228) 4.7 MEQ/L CHLORIDE (test code = 2215) 99 MEQ/L CARBON DIOXIDE (test code = 2206) 26 MEQ/L CALCIUM (test code = 2209) 8.7 MG/DL PROTEIN, TOTAL (test code = 2229) 6.9 G/DL ALBUMIN (test code = 2201) 3.4 G/DL CALC GLOBULIN (test code = 2240) 3.5 G/DL CALC A/G RATIO (test code = 2234) 1.0 RATIO BILIRUBIN, TOTAL (test code = 2207) <0.2 MG/DL ALKALINE PHOSPHATASE (test code = 2204) 124 U/L AST (test code = 2218) 15 U/L ALT (test code = 2219) 13 U/L COMPREHENSIVE METABOLIC [id number] 00:00:00* Test Item Value Reference Range Interpretation Comme nts GLUCOSE (test code = 2217) 304 MG/DL BUN (test code = 2208) 26 MG/DL CREATININE (test code = 2214) 1.81 MG/DL eGFR (2020 CKD-EPI) (test co de = 95093) 34 ML/MIN/1.73 CALC BUN/CREAT (test code = 2235) 14 RATIO SODIUM (test code = 2231) 137 MEQ/L POTASSIUM (test code = 2228) 4.7 MEQ/L CHLORIDE (test code = 2215) 99 MEQ/L CARBON DIOXIDE (test code = 2206) 26 MEQ/L CALCIUM (test code = 2209) 8.7 MG/DL PROTEIN, TOTAL (test code = 2229) 6.9 G/DL ALBUMIN (test code = 2201) 3.4 G/DL CALC GLOBULIN (test code = 2240) 3.5 G/DL CALC A/G RATIO (test code = 2234) 1.0 RATIO BILIRUBIN, TOTAL (test code = 2207) <0.2 MG/DL ALKALINE PHOSPHATASE (test code = 2204) 124 U/L AST (test code = 2218) 15 U/L ALT (test code = 2219) 13 U/L [id number] 00:00:00* Test Item Value Reference Range Interpretation Comme nts TSH, THIRD GENERATION (test code = 2821) 5.840 UIU/ML [id number] 00:00:00* Test Item Value Reference Range Interpretation Comme nts TSH, THIRD GENERATION (test code = 2821) 5.840 UIU/ML [id number] 00:00:00* Test Item Value Reference Range Interpretation Comme nts TSH, THIRD GENERATION (test code = 2821) 5.840 UIU/ML CBC W/AUTO [id number] 00:00:00* Test Item Value Reference Range Interpretation Comme nts WBC (test code = 1001) 7.8 K/UL [...] = 1013) 0.4 % IMMATURE GRANULOCYTES (test code = 1036) 0.3 % NUCLEATED RBCS (test code = 1065) 0.0 /100WBC'S PLATELET COUNT (test code = 1015) 509 K/UL ABSOLUTE NEUTROPHILS (test c ode = 1066) 4.52 K/UL ABSOLUTE LYMPHOCYTES (test c ode = 1067) 2.53 K/UL ABSOLUTE MONOCYTES (test cod e = 1068) 0.63 K/UL ABSOLUTE EOSINOPHILS (test c ode = 1040) 0.08 K/UL ABSOLUTE BASOPHILS (test cod e = 1069) 0.03 K/UL ABS IMMATURE GRANULOCYTES (t est code = 1020) 0.02 K/UL ABS NUCLEATED RBCS (test cod e = 32847) 0.00 K/UL CBC W/AUTO [id number] 00:00:00* Test Item Value Reference Range Interpretation Comme nts WBC (test code = 1001) 7.8 K/UL [...] = 1013) 0.4 % IMMATURE GRANULOCYTES (test code = 1036) 0.3 % NUCLEATED RBCS (test code = 1065) 0.0 /100WBC'S PLATELET COUNT (test code = 1015) 509 K/UL ABSOLUTE NEUTROPHILS (test c ode = 1066) 4.52 K/UL ABSOLUTE LYMPHOCYTES (test c ode = 1067) 2.53 K/UL ABSOLUTE MONOCYTES (test cod e = 1068) 0.63 K/UL ABSOLUTE EOSINOPHILS (test c ode = 1040) 0.08 K/UL ABSOLUTE BASOPHILS (test cod e = 1069) 0.03 K/UL ABS IMMATURE GRANULOCYTES (t est code = 1020) 0.02 K/UL ABS NUCLEATED RBCS (test cod e = 72876) 0.00 K/UL CBC W/AUTO [id number] 00:00:00* Test Item Value Reference Range Interpretation Comme nts WBC (test code = 1001) 7.8 K/UL [...] = 1013) 0.4 % IMMATURE GRANULOCYTES (test code = 1036) 0.3 % NUCLEATED RBCS (test code = 1065) 0.0 /100WBC'S PLATELET COUNT (test code = 1015) 509 K/UL ABSOLUTE NEUTROPHILS (test c ode = 1066) 4.52 K/UL ABSOLUTE LYMPHOCYTES (test c ode = 1067) 2.53 K/UL ABSOLUTE MONOCYTES (test cod e = 1068) 0.63 K/UL ABSOLUTE EOSINOPHILS (test c ode = 1040) 0.08 K/UL ABSOLUTE BASOPHILS (test cod e = 1069) 0.03 K/UL ABS IMMATURE GRANULOCYTES (t est code = 1020) 0.02 K/UL ABS NUCLEATED RBCS (test cod e = 80065) 0.00 K/UL HEMOGLOBIN [id number] 00:00:00* Test Item Value Reference Range Interpretation Comme nts HEMOGLOBIN A1c (test code = 57330) 13.0 % HEMOGLOBIN [id number] 00:00:00* Test Item Value Reference Range Interpretation Comme nts HEMOGLOBIN A1c (test code = 56913) 13.0 % HEMOGLOBIN [id number] 00:00:00* Test Item Value Reference Range Interpretation Comme nts HEMOGLOBIN A1c (test code = 33359) 13.0 % LIPID [id number] 00:00:00* Test Item Value Reference Range Interpretation Comme nts CHOLESTEROL (test code = 2210) 278 MG/DL TRIGLYCERIDES (test code = 2232) 553 MG/DL HDL CHOLESTEROL (test code = 2220) 38 MG/DL CALC LDL CHOL (test code = 2237) (NOTE) MG/DL RISK RATIO LDL/HDL (test cod e = 2238) 4.13 RATIO LIPID [id number] 00:00:00* Test Item Value Reference Range Interpretation Comme nts CHOLESTEROL (test code = 2210) 278 MG/DL TRIGLYCERIDES (test code = 2232) 553 MG/DL HDL CHOLESTEROL (test code = 2220) 38 MG/DL CALC LDL CHOL (test code = 2237) (NOTE) MG/DL RISK RATIO LDL/HDL (test cod e = 2238) 4.13 RATIO COMPREHENSIVE METABOLIC [id number] 04:41:06* Test Item Value Reference Range Interpretation Comme nts GLUCOSE (test code = 2217) 87 MG/DL 70-99 BUN (test code = 2208) 19 MG/DL 6-20 CREATININE (test code = 2214) 1.31 MG/DL 0.60-1.30 H EFFECTIVE 2020, [facility] HAS IMPLEMENTED THE NKF-ASN RECOMMENDED KD-EPI EGFR REFIT CALCULATION THAT DOES NOT INCLUDE A COEFFICIENT FORRACE. FOR MORE INFORMATION, SEE ANNOUNCEMENT [email or web address] COM/EGFR_CALC eGFR (2020 CKD-EPI) (test code = 83339) 51 ML/MIN/1.73 >60 L CALC BUN/CREAT (test code = 2235) 15 RATIO 6-28 SODIUM (test code = 223) 142 MEQ/L 133-146 POTASSIUM (test code = 2228) 3.8 MEQ/L 3.5-5.4 CHLORIDE (test code = 2215) 106 MEQ/L 95-107 CARBON DIOXIDE (test code = 2206) 24 MEQ/L 19-31 CALCIUM (test code = 220) 9.1 MG/DL 8.5-10.5 PROTEIN, TOTAL (test code = 2229) 7.2 G/DL 6.1-8.3 ALBUMIN (test code = 2201) 3.8 G/DL 3.5-5.2 CALC GLOBULIN (test code = 2240) 3.4 G/DL 1.9-3.7 CALC A/G RATIO (test code = 2234) 1.1 RATIO 1.0-2.6 BILIRUBIN, TOTAL (test code = 2207) <0.2 MG/DL See_Comment [Automated me ssage] The system which generated this result transmitted reference range: <=1.2. The reference range was not used to interpret this result as normal/abnormal. ALKALINE PHOSPHATASE (test code = 2203) 105 U/L 40-120 AST (test code = 221) 19 U/L 9-40 ALT (test code = 221) 13 U/L 5-40 UNLESS OTHERWISE INDICATED, ALL TESTING PERFORMED [facility] [address] [place] [address] [employer] REPRESENTATIVE: JAYCEE RAMIREZ M.D. CLIA NUMBER [id number] [facility] [place]. [id number] LIPID [id number] 04:41:06* Test Item Value Reference Range Interpretation Comme nts CHOLESTEROL (test code = 2210) 230 MG/DL <200 H TRIGLYCERIDES (test code = 2232) 455 MG/DL <150 H HDL CHOLESTEROL (test code = 2220) 35 MG/DL >39 L CALC LDL CHOL (test code = 2237) (NOTE) MG/DL <100 UNABLE TO CALCUL ATE A VALID LDL CHOLESTEROL WHEN THE TRIGLYCERIDEVALUE IS GREATER THAN 400 MG/DL. NOTE: CALCULATED LDL IS BASED ON [place]AT[place] METHOD WHICHINCLUDES ADJUSTABLE TRIGLYCERIDE:VLDL CHOLESTEROL RATIO.THIS FACTOR VARIES BY MEASURED TRIGLYCERIDE AND NON-HDLCHOLESTEROL CONCENTRATIONS WITH INCREASED CALCULATED LDL SEENIN HIGHER TRIGLYCERIDE OR LOWER NON-HDL SPECIMENS. FOR MOREINFORMATION, SEE CLIENT ANNOUNCEMENT AT [email or web address] CalcLDL-C RISK RATIO LDL/HDL (test code = 2238) 3.83 RATIO <3.22 H UNABLE TO DONNA CULATE HEMOGLOBIN [id number] 02:36:52* Test Item Value Reference Range Interpretation Comme nts HEMOGLOBIN A1c (test code = 80642) 7.3 % 4.2-5.6 H [employer] GUIDELINES FOR HGB A1C: PREDIABETES/INCREASED RISK . . . . . . . 5.7-6.4% DIAGNOSIS OF DIABETES . . . . . . . . . >=6.5% WITH CONFIRMATION OR APPROPRIATE SYMPTOMS NOTE: ASSAY MAY BE AFFECTED BY HEMOGLOBINOPATHIES (SICKLE CELL ANEMIA, S-C DISEASE, OTHERS) OR ARTIFICIALLY LOWERED BY DECREASED RED CELL SURVIVAL (HEMOLYTIC ANEMIAS, BLOOD LOSS, ETC.). CONSIDER ALTERNATE TESTING OR LABORATORY CONSULTATION. COMPREHENSIVE METABOLIC [id number] 00:00:00* Test Item Value Reference Range Interpretation Comme nts GLUCOSE (test code = 2217) 87 MG/DL BUN (test code = 2208) 19 MG/DL CREATININE (test code = 2214) 1.31 MG/DL eGFR (2020 CKD-EPI) (test co de = 12039) 51 ML/MIN/1.73 CALC BUN/CREAT (test code = 2235) 15 RATIO SODIUM (test code = 2231) 142 MEQ/L POTASSIUM (test code = 2228) 3.8 MEQ/L CHLORIDE (test code = 2215) 106 MEQ/L CARBON DIOXIDE (test code = 2206) 24 MEQ/L CALCIUM (test code = 2209) 9.1 MG/DL PROTEIN, TOTAL (test code = 2229) 7.2 G/DL ALBUMIN (test code = 2201) 3.8 G/DL CALC GLOBULIN (test code = 2240) 3.4 G/DL CALC A/G RATIO (test code = 2234) 1.1 RATIO BILIRUBIN, TOTAL (test code = 2207) <0.2 MG/DL ALKALINE PHOSPHATASE (test code = 2204) 105 U/L AST (test code = 2218) 19 U/L ALT (test code = 2219) 13 U/L COMPREHENSIVE METABOLIC [id number] 00:00:00* Test Item Value Reference Range Interpretation Comme nts GLUCOSE (test code = 2217) 87 MG/DL BUN (test code = 2208) 19 MG/DL CREATININE (test code = 2214) 1.31 MG/DL eGFR (2020 CKD-EPI) (test co de = 61432) 51 ML/MIN/1.73 CALC BUN/CREAT (test code = 2235) 15 RATIO SODIUM (test code = 2231) 142 MEQ/L POTASSIUM (test code = 2228) 3.8 MEQ/L CHLORIDE (test code = 2215) 106 MEQ/L CARBON DIOXIDE (test code = 2206) 24 MEQ/L CALCIUM (test code = 2209) 9.1 MG/DL PROTEIN, TOTAL (test code = 2229) 7.2 G/DL ALBUMIN (test code = 2201) 3.8 G/DL CALC GLOBULIN (test code = 2240) 3.4 G/DL CALC A/G RATIO (test code = 2234) 1.1 RATIO BILIRUBIN, TOTAL (test code = 2207) <0.2 MG/DL ALKALINE PHOSPHATASE (test code = 2204) 105 U/L AST (test code = 2218) 19 U/L ALT (test code = 2219) 13 U/L HEMOGLOBIN [id number] 00:00:00* Test Item Value Reference Range Interpretation Comme nts HEMOGLOBIN A1c (test code = 86680) 7.3 % HEMOGLOBIN [id number] 00:00:00* Test Item Value Reference Range Interpretation Comme nts HEMOGLOBIN A1c (test code = 57022) 7.3 % HEMOGLOBIN [id number] 00:00:00* Test Item Value Reference Range Interpretation Comme nts HEMOGLOBIN A1c (test code = 90671) 7.3 % LIPID [id number] 00:00:00* Test Item Value Reference Range Interpretation Comme nts CHOLESTEROL (test code = 2210) 230 MG/DL TRIGLYCERIDES (test code = 2232) 455 MG/DL HDL CHOLESTEROL (test code = 2220) 35 MG/DL CALC LDL CHOL (test code = 2237) (NOTE) MG/DL RISK RATIO LDL/HDL (test cod e = 2238) 3.83 RATIO LIPID [id number] 00:00:00* Test Item Value Reference Range Interpretation Comme nts CHOLESTEROL (test code = 2210) 230 MG/DL TRIGLYCERIDES (test code = 2232) 455 MG/DL HDL CHOLESTEROL (test code = 2220) 35 MG/DL CALC LDL CHOL (test code = 2237) (NOTE) MG/DL RISK RATIO LDL/HDL (test cod e = 2238) 3.83 RATIO COMPREHENSIVE METABOLIC [id number] 00:00:00* Test Item Value Reference Range Interpretation Comme nts GLUCOSE (test code = 2217) 87 MG/DL BUN (test code = 2208) 19 MG/DL CREATININE (test code = 2214) 1.31 MG/DL eGFR (2020 CKD-EPI) (test co de = 14014) 51 ML/MIN/1.73 CALC BUN/CREAT (test code = 2235) 15 RATIO SODIUM (test code = 2231) 142 MEQ/L POTASSIUM (test code = 2228) 3.8 MEQ/L CHLORIDE (test code = 2215) 106 MEQ/L CARBON DIOXIDE (test code = 2206) 24 MEQ/L CALCIUM (test code = 2209) 9.1 MG/DL PROTEIN, TOTAL (test code = 2229) 7.2 G/DL ALBUMIN (test code = 2201) 3.8 G/DL CALC GLOBULIN (test code = 2240) 3.4 G/DL CALC A/G RATIO (test code = 2234) 1.1 RATIO BILIRUBIN, TOTAL (test code = 2207) <0.2 MG/DL ALKALINE PHOSPHATASE (test code = 2204) 105 U/L AST (test code = 2218) 19 U/L ALT (test code = 2219) 13 U/L COMPREHENSIVE METABOLIC [id number] 00:00:00* Test Item Value Reference Range Interpretation Comme nts GLUCOSE (test code = 2217) 87 MG/DL BUN (test code = 2208) 19 MG/DL CREATININE (test code = 2214) 1.31 MG/DL eGFR (2020 CKD-EPI) (test co de = 48136) 51 ML/MIN/1.73 CALC BUN/CREAT (test code = 2235) 15 RATIO SODIUM (test code = 2231) 142 MEQ/L POTASSIUM (test code = 2228) 3.8 MEQ/L CHLORIDE (test code = 2215) 106 MEQ/L CARBON DIOXIDE (test code = 2206) 24 MEQ/L CALCIUM (test code = 2209) 9.1 MG/DL PROTEIN, TOTAL (test code = 2229) 7.2 G/DL ALBUMIN (test code = 2201) 3.8 G/DL CALC GLOBULIN (test code = 2240) 3.4 G/DL CALC A/G RATIO (test code = 2234) 1.1 RATIO BILIRUBIN, TOTAL (test code = 2207) <0.2 MG/DL ALKALINE PHOSPHATASE (test code = 2204) 105 U/L AST (test code = 2218) 19 U/L ALT (test code = 2219) 13 U/L HEMOGLOBIN [id number] 00:00:00* Test Item Value Reference Range Interpretation Comme nts HEMOGLOBIN A1c (test code = 85807) 7.3 % HEMOGLOBIN [id number] 00:00:00* Test Item Value Reference Range Interpretation Comme nts HEMOGLOBIN A1c (test code = 10076) 7.3 % HEMOGLOBIN [id number] 00:00:00* Test Item Value Reference Range Interpretation Comme nts HEMOGLOBIN A1c (test code = 86703) 7.3 % LIPID [id number] 00:00:00* Test Item Value Reference Range Interpretation Comme nts CHOLESTEROL (test code = 2210) 230 MG/DL TRIGLYCERIDES (test code = 2232) 455 MG/DL HDL CHOLESTEROL (test code = 2220) 35 MG/DL CALC LDL CHOL (test code = 2237) (NOTE) MG/DL RISK RATIO LDL/HDL (test cod e = 2238) 3.83 RATIO LIPID [id number] 00:00:00* Test Item Value Reference Range Interpretation Comme nts CHOLESTEROL (test code = 2210) 230 MG/DL TRIGLYCERIDES (test code = 2232) 455 MG/DL HDL CHOLESTEROL (test code = 2220) 35 MG/DL CALC LDL CHOL (test code = 2237) (NOTE) MG/DL RISK RATIO LDL/HDL (test cod e = 2238) 3.83 RATIO COMPREHENSIVE METABOLIC [id number] 00:00:00* Test Item Value Reference Range Interpretation Comme nts GLUCOSE (test code = 2217) 147 MG/DL BUN (test code = 2208) 23 MG/DL CREATININE (test code = 2214) 1.27 MG/DL eGFR AMER. (test cod e = 69909) 59 ML/MIN/1.73 eGFR NON- AMER. (test code = 39876) 51 ML/MIN/1.73 CALC BUN/CREAT (test code = 2235) 18 RATIO SODIUM (test code = 2231) 141 MEQ/L POTASSIUM (test code = 2228) 4.7 MEQ/L CHLORIDE (test code = 2215) 106 MEQ/L CARBON DIOXIDE (test code = 2206) 26 MEQ/L CALCIUM (test code = 2209) 9.1 MG/DL PROTEIN, TOTAL (test code = 2229) 7.4 G/DL ALBUMIN (test code = 2201) 3.8 G/DL CALC GLOBULIN (test code = 2240) 3.6 G/DL CALC A/G RATIO (test code = 2234) 1.1 RATIO BILIRUBIN, TOTAL (test code = 2207) <0.2 MG/DL ALKALINE PHOSPHATASE (test code = 2204) 92 U/L AST (test code = 2218) 18 U/L ALT (test code = 2219) 11 U/L HEMOGLOBIN [id number] 00:00:00* Test Item Value Reference Range Interpretation Comme nts HEMOGLOBIN A1c (test code = 62068) 7.2 % HEMOGLOBIN [id number] 00:00:00* Test Item Value Reference Range Interpretation Comme nts HEMOGLOBIN A1c (test code = 49735) 7.2 % HEMOGLOBIN [id number] 00:00:00* Test Item Value Reference Range Interpretation Comme nts HEMOGLOBIN A1c (test code = 26703) 7.2 % LIPID [id number] 00:00:00* Test Item Value Reference Range Interpretation Comme nts CHOLESTEROL (test code = 2210) 250 MG/DL TRIGLYCERIDES (test code = 2232) 312 MG/DL HDL CHOLESTEROL (test code = 2220) 41 MG/DL CALC LDL CHOL (test code = 2237) 161 MG/DL RISK RATIO LDL/HDL (test cod e = 2238) 3.93 RATIO LIPID [id number] 00:00:00* Test Item Value Reference Range Interpretation Comme nts CHOLESTEROL (test code = 2210) 250 MG/DL TRIGLYCERIDES (test code = 2232) 312 MG/DL HDL CHOLESTEROL (test code = 2220) 41 MG/DL CALC LDL CHOL (test code = 2237) 161 MG/DL RISK RATIO LDL/HDL (test cod e = 2238) 3.93 RATIO COMPREHENSIVE METABOLIC [id number] 00:00:00* Test Item Value Reference Range Interpretation Comme nts GLUCOSE (test code = 2217) 147 MG/DL BUN (test code = 2208) 23 MG/DL CREATININE (test code = 2214) 1.27 MG/DL eGFR AMER. (test cod e = 06795) 59 ML/MIN/1.73 eGFR NON- AMER. (test code = 96257) 51 ML/MIN/1.73 CALC BUN/CREAT (test code = 2235) 18 RATIO SODIUM (test code = 2231) 141 MEQ/L POTASSIUM (test code = 2228) 4.7 MEQ/L CHLORIDE (test code = 2215) 106 MEQ/L CARBON DIOXIDE (test code = 2206) 26 MEQ/L CALCIUM (test code = 2209) 9.1 MG/DL PROTEIN, TOTAL (test code = 2229) 7.4 G/DL ALBUMIN (test code = 2201) 3.8 G/DL CALC GLOBULIN (test code = 2240) 3.6 G/DL CALC A/G RATIO (test code = 2234) 1.1 RATIO BILIRUBIN, TOTAL (test code = 2207) <0.2 MG/DL ALKALINE PHOSPHATASE (test code = 2204) 92 U/L AST (test code = 2218) 18 U/L ALT (test code = 2219) 11 U/L COMPREHENSIVE METABOLIC [id number] 00:00:00* Test Item Value Reference Range Interpretation Comme nts GLUCOSE (test code = 2217) 147 MG/DL BUN (test code = 2208) 23 MG/DL CREATININE (test code = 2214) 1.27 MG/DL eGFR AMER. (test cod e = 15535) 59 ML/MIN/1.73 eGFR NON- AMER. (test code = 80675) 51 ML/MIN/1.73 CALC BUN/CREAT (test code = 2235) 18 RATIO SODIUM (test code = 2231) 141 MEQ/L POTASSIUM (test code = 2228) 4.7 MEQ/L CHLORIDE (test code = 2215) 106 MEQ/L CARBON DIOXIDE (test code = 2206) 26 MEQ/L CALCIUM (test code = 2209) 9.1 MG/DL PROTEIN, TOTAL (test code = 2229) 7.4 G/DL ALBUMIN (test code = 2201) 3.8 G/DL CALC GLOBULIN (test code = 2240) 3.6 G/DL CALC A/G RATIO (test code = 2234) 1.1 RATIO BILIRUBIN, TOTAL (test code = 2207) <0.2 MG/DL ALKALINE PHOSPHATASE (test code = 2204) 92 U/L AST (test code = 2218) 18 U/L ALT (test code = 2219) 11 U/L HEMOGLOBIN [id number] 00:00:00* Test Item Value Reference Range Interpretation Comme nts HEMOGLOBIN A1c (test code = 54372) 7.2 % HEMOGLOBIN [id number] 00:00:00* Test Item Value Reference Range Interpretation Comme nts HEMOGLOBIN A1c (test code = 24200) 7.2 % HEMOGLOBIN [id number] 00:00:00* Test Item Value Reference Range Interpretation Comme nts HEMOGLOBIN A1c (test code = 00634) 7.2 % LIPID [id number] 00:00:00* Test Item Value Reference Range Interpretation Comme nts CHOLESTEROL (test code = 2210) 250 MG/DL TRIGLYCERIDES (test code = 2232) 312 MG/DL HDL CHOLESTEROL (test code = 2220) 41 MG/DL CALC LDL CHOL (test code = 2237) 161 MG/DL RISK RATIO LDL/HDL (test cod e = 2238) 3.93 RATIO LIPID [id number] 00:00:00* Test Item Value Reference Range Interpretation Comme nts CHOLESTEROL (test code = 2210) 250 MG/DL TRIGLYCERIDES (test code = 2232) 312 MG/DL HDL CHOLESTEROL (test code = 2220) 41 MG/DL CALC LDL CHOL (test code = 2237) 161 MG/DL RISK RATIO LDL/HDL (test cod e = 2238) 3.93 RATIO COMPREHENSIVE METABOLIC [id number] 00:00:00* Test Item Value Reference Range Interpretation Comme nts GLUCOSE (test code = 2217) 147 MG/DL BUN (test code = 2208) 23 MG/DL CREATININE (test code = 2214) 1.27 MG/DL eGFR AMER. (test cod e = 76669) 59 ML/MIN/1.73 eGFR NON- AMER. (test code = 31593) 51 ML/MIN/1.73 CALC BUN/CREAT (test code = 2235) 18 RATIO SODIUM (test code = 2231) 141 MEQ/L POTASSIUM (test code = 2228) 4.7 MEQ/L CHLORIDE (test code = 2215) 106 MEQ/L CARBON DIOXIDE (test code = 2206) 26 MEQ/L CALCIUM (test code = 2209) 9.1 MG/DL PROTEIN, TOTAL (test code = 2229) 7.4 G/DL ALBUMIN (test code = 2201) 3.8 G/DL CALC GLOBULIN (test code = 2240) 3.6 G/DL CALC A/G RATIO (test code = 2234) 1.1 RATIO BILIRUBIN, TOTAL (test code = 2207) <0.2 MG/DL ALKALINE PHOSPHATASE (test code = 2204) 92 U/L AST (test code = 2218) 18 U/L ALT (test code = 2219) 11 U/L PAP TEST, THINPREP, [id number] 00:00:00* Test Item Value Reference Range Interpretation Comme nts SOURCE: (test code = 8001) Endocervical SLIDES: (test code = 8011) 1 LMP: (test code = 8021) 06/27/2020 SPECIMEN ADEQUACY: (test code = 57327) (NOTE) INTERPRETATION: (test code = 69343) NILM/NO EPITH. ABNORMALITY;SEE BELOW SMALL ORDER CUTTER: (test code = 8101) OSCAR Heaton(ASCP) QC TECHNOLOGIST: (test code = 8111) [facility]ATION: (test code = 65405) (NOTE) CPT: (test code = 8140) (NOTE) PAP TEST, THINPREP, [id number] 00:00:00* Test Item Value Reference Range Interpretation Comme nts SOURCE: (test code = 800) Endocervical SLIDES: (test code = 8011) 1 LMP: (test code = 8021) 06/27/2020 SPECIMEN ADEQUACY: (test code = 45422) (NOTE) INTERPRETATION: (test code = 89270) NILM/NO EPITH. ABNORMALITY;SEE BELOW SMALL ORDER CUTTER: (test code = 8101) OSCAR Heaton(ASCP) QC TECHNOLOGIST: (test code = 8111) [facility]IAC LOCATION: (test code = 40766) (NOTE) CPT: (test code = 8140) (NOTE) PAP TEST, THINPREP, [id number] 00:00:00* Test Item Value Reference Range Interpretation Comme nts SOURCE: (test code = 8001) Endocervical SLIDES: (test code = 8011) 1 LMP: (test code = 8021) 06/27/2020 SPECIMEN ADEQUACY: (test code = 79265) (NOTE) INTERPRETATION: (test code = 38195) NILM/NO EPITH. ABNORMALITY;SEE BELOW SMALL ORDER CUTTER: (test code = 8101) OSCAR Heaton(ASCP) QC TECHNOLOGIST: (test code = 8111) [facility]IAC LOCATION: (test code = 49467) (NOTE) CPT: (test code = 8140) (NOTE) PAP TEST, THINPREP, [id number] 00:00:00* Test Item Value Reference Range Interpretation Comme nts SOURCE: (test code = 8001) Endocervical SLIDES: (test code = 8011) 1 LMP: (test code = 8021) 06/27/2020 SPECIMEN ADEQUACY: (test code = 51849) (NOTE) INTERPRETATION: (test code = 65487) NILM/NO EPITH. ABNORMALITY;SEE BELOW SMALL ORDER CUTTER: (test code = 8101) OSCAR Heaton(ASCP) QC TECHNOLOGIST: (test code = 8111) [facility]IAC LOCATION: (test code = 35424) (NOTE) CPT: (test code = 8140) (NOTE) CULTURE, [id number] 00:00:00* Test Item Value Reference Range Interpretation Comme nts CULTURE, URINE (test code = 90001) SPECIMEN NUMBER: [id number] CULTURE, [id number] 00:00:00* Test Item Value Reference Range Interpretation Comme nts CULTURE, URINE (test code = 66248) SPECIMEN NUMBER: [id number] CULTURE, [id number] 00:00:00* Test Item Value Reference Range Interpretation Comme nts CULTURE, URINE (test code = 73033) SPECIMEN NUMBER: [id number] CULTURE, [id number] 00:00:00* Test Item Value Reference Range Interpretation Comme nts CULTURE, URINE (test code = 87546) SPECIMEN NUMBER: [id number] HPV HIGH RISK WITH GENOTYPE, [id number] 00:00:00* Test Item Value Reference Range Interpretation Comme [facility] HPV HIGH RISK INTERP (test c ode = 25990) POSITIVE HPV 16 (test code = 92507) NEGATIVE HPV 18 (test code = 12630) NEGATIVE HPV, HR, OTHER GENOTYPES (te st code = 52332) POSITIVE HPV HIGH RISK WITH GENOTYPE, [id number] 00:00:00* Test Item Value Reference Range Interpretation Comme [facility] HPV HIGH RISK INTERP (test c ode = 18605) POSITIVE HPV 16 (test code = 96726) NEGATIVE HPV 18 (test code = 12200) NEGATIVE HPV, HR, OTHER GENOTYPES (te st code = 29610) POSITIVE HPV HIGH RISK WITH GENOTYPE, [id number] 00:00:00* Test Item Value Reference Range Interpretation Comme [facility] HPV HIGH RISK INTERP (test c ode = 32261) POSITIVE HPV 16 (test code = 63681) NEGATIVE HPV 18 (test code = 66931) NEGATIVE HPV, HR, OTHER GENOTYPES (te st code = 44939) POSITIVE HPV HIGH RISK WITH GENOTYPE, [id number] 00:00:00* Test Item Value Reference Range Interpretation Comme [facility] HPV HIGH RISK INTERP (test c ode = 09780) POSITIVE HPV 16 (test code = 17181) NEGATIVE HPV 18 (test code = 10153) NEGATIVE HPV, HR, OTHER GENOTYPES (te st code = 78365) POSITIVE VITAMIN D, 25 [id number] 00:00:00* Test Item Value Reference Range Interpretation [facility] VITAMIN D, 25 OH (test code = 4958) TEST NOT PERFORMED NG/ML VITAMIN D, 25 [id number] 00:00:00* Test Item Value Reference Range Interpretation [facility] VITAMIN D, 25 OH (test code = 4958) TEST NOT PERFORMED NG/ML VITAMIN D, 25 [id number] 00:00:00* Test Item Value Reference Range Interpretation [facility] VITAMIN D, 25 OH (test code = 4958) TEST NOT PERFORMED NG/ML VITAMIN D, 25 [id number] 00:00:00* Test Item Value Reference Range Interpretation Comme [facility] VITAMIN D, 25 OH (test code = 4958) TEST NOT PERFORMED NG/ML CBC W/AUTO [id number] 00:00:00* Test Item Value Reference Range Interpretation Comme nts WBC (test code = 1001) 10.8 K/UL [...] = 1013) 0.3 % IMMATURE GRANULOCYTES (test code = 1036) 0.3 % NUCLEATED RBCS (test code = 1065) 0.0 /100WBC'S PLATELET COUNT (test code = 1015) 629 K/UL ABSOLUTE NEUTROPHILS (test c ode = 1066) 6.95 K/UL ABSOLUTE LYMPHOCYTES (test c ode = 1067) 2.95 K/UL ABSOLUTE MONOCYTES (test cod e = 1068) 0.72 K/UL ABSOLUTE EOSINOPHILS (test c ode = 1040) 0.09 K/UL ABSOLUTE BASOPHILS (test cod e = 1069) 0.03 K/UL ABS IMMATURE GRANULOCYTES (t est code = 1020) 0.03 K/UL ABS NUCLEATED RBCS (test cod e = 95793) 0.00 K/UL CBC W/AUTO [id number] 00:00:00* Test Item Value Reference Range Interpretation Comme nts WBC (test code = 1001) 10.8 K/UL [...] = 1013) 0.3 % IMMATURE GRANULOCYTES (test code = 1036) 0.3 % NUCLEATED RBCS (test code = 1065) 0.0 /100WBC'S PLATELET COUNT (test code = 1015) 629 K/UL ABSOLUTE NEUTROPHILS (test c ode = 1066) 6.95 K/UL ABSOLUTE LYMPHOCYTES (test c ode = 1067) 2.95 K/UL ABSOLUTE MONOCYTES (test cod e = 1068) 0.72 K/UL ABSOLUTE EOSINOPHILS (test c ode = 1040) 0.09 K/UL ABSOLUTE BASOPHILS (test cod e = 1069) 0.03 K/UL ABS IMMATURE GRANULOCYTES (t est code = 1020) 0.03 K/UL ABS NUCLEATED RBCS (test cod e = 99597) 0.00 K/UL CBC W/AUTO [id number] 00:00:00* Test Item Value Reference Range Interpretation Comme nts WBC (test code = 1001) 10.8 K/UL [...] = 1013) 0.3 % IMMATURE GRANULOCYTES (test code = 1036) 0.3 % NUCLEATED RBCS (test code = 1065) 0.0 /100WBC'S PLATELET COUNT (test code = 1015) 629 K/UL ABSOLUTE NEUTROPHILS (test c ode = 1066) 6.95 K/UL ABSOLUTE LYMPHOCYTES (test c ode = 1067) 2.95 K/UL ABSOLUTE MONOCYTES (test cod e = 1068) 0.72 K/UL ABSOLUTE EOSINOPHILS (test c ode = 1040) 0.09 K/UL ABSOLUTE BASOPHILS (test cod e = 1069) 0.03 K/UL ABS IMMATURE GRANULOCYTES (t est code = 1020) 0.03 K/UL ABS NUCLEATED RBCS (test cod e = 04393) 0.00 K/UL CBC W/AUTO [id number] 00:00:00* Test Item Value Reference Range Interpretation Comme nts WBC (test code = 1001) 10.8 K/UL [...] = 1013) 0.3 % IMMATURE GRANULOCYTES (test code = 1036) 0.3 % NUCLEATED RBCS (test code = 1065) 0.0 /100WBC'S PLATELET COUNT (test code = 1015) 629 K/UL ABSOLUTE NEUTROPHILS (test c ode = 1066) 6.95 K/UL ABSOLUTE LYMPHOCYTES (test c ode = 1067) 2.95 K/UL ABSOLUTE MONOCYTES (test cod e = 1068) 0.72 K/UL ABSOLUTE EOSINOPHILS (test c ode = 1040) 0.09 K/UL ABSOLUTE BASOPHILS (test cod e = 1069) 0.03 K/UL ABS IMMATURE GRANULOCYTES (t est code = 1020) 0.03 K/UL ABS NUCLEATED RBCS (test cod e = 16560) 0.00 K/UL CBC W/AUTO [id number] 00:00:00* Test Item Value Reference Range Interpretation Comme nts WBC (test code = 1001) 10.8 K/UL [...] = 1013) 0.3 % IMMATURE GRANULOCYTES (test code = 1036) 0.3 % NUCLEATED RBCS (test code = 1065) 0.0 /100WBC'S PLATELET COUNT (test code = 1015) 629 K/UL ABSOLUTE NEUTROPHILS (test c ode = 1066) 6.95 K/UL ABSOLUTE LYMPHOCYTES (test c ode = 1067) 2.95 K/UL ABSOLUTE MONOCYTES (test cod e = 1068) 0.72 K/UL ABSOLUTE EOSINOPHILS (test c ode = 1040) 0.09 K/UL ABSOLUTE BASOPHILS (test cod e = 1069) 0.03 K/UL ABS IMMATURE GRANULOCYTES (t est code = 1020) 0.03 K/UL ABS NUCLEATED RBCS (test cod e = 07828) 0.00 K/UL CBC W/AUTO [id number] 00:00:00* Test Item Value Reference Range Interpretation Comme nts WBC (test code = 1001) 10.8 K/UL [...] = 1013) 0.3 % IMMATURE GRANULOCYTES (test code = 1036) 0.3 % NUCLEATED RBCS (test code = 1065) 0.0 /100WBC'S PLATELET COUNT (test code = 1015) 629 K/UL ABSOLUTE NEUTROPHILS (test c ode = 1066) 6.95 K/UL ABSOLUTE LYMPHOCYTES (test c ode = 1067) 2.95 K/UL ABSOLUTE MONOCYTES (test cod e = 1068) 0.72 K/UL ABSOLUTE EOSINOPHILS (test c ode = 1040) 0.09 K/UL ABSOLUTE BASOPHILS (test cod e = 1069) 0.03 K/UL ABS IMMATURE GRANULOCYTES (t est code = 1020) 0.03 K/UL ABS NUCLEATED RBCS (test cod e = 82394) 0.00 K/UL COMPREHENSIVE METABOLIC [id number] 00:00:00* Test Item Value Reference Range Interpretation Comme nts GLUCOSE (test code = 2217) 300 MG/DL BUN (test code = 2208) 23 MG/DL CREATININE (test code = 2214) 1.24 MG/DL eGFR AMER. (test cod e = 61639) 60 ML/MIN/1.73 eGFR NON- AMER. (test code = 92074) 52 ML/MIN/1.73 CALC BUN/CREAT (test code = 2235) 19 RATIO SODIUM (test code = 2231) 140 MEQ/L POTASSIUM (test code = 2228) 4.3 MEQ/L CHLORIDE (test code = 2215) 104 MEQ/L CARBON DIOXIDE (test code = 2206) 26 MEQ/L CALCIUM (test code = 2209) 9.1 MG/DL PROTEIN, TOTAL (test code = 2229) 7.5 G/DL ALBUMIN (test code = 2201) 3.7 G/DL CALC GLOBULIN (test code = 2240) 3.8 G/DL CALC A/G RATIO (test code = 2234) 1.0 RATIO BILIRUBIN, TOTAL (test code = 2207) <0.2 MG/DL ALKALINE PHOSPHATASE (test code = 2204) 114 U/L AST (test code = 2218) 12 U/L ALT (test code = 2219) 12 U/L COMPREHENSIVE METABOLIC [id number] 00:00:00* Test Item Value Reference Range Interpretation Comme nts GLUCOSE (test code = 2217) 300 MG/DL BUN (test code = 2208) 23 MG/DL CREATININE (test code = 2214) 1.24 MG/DL eGFR AMER. (test cod e = 87876) 60 ML/MIN/1.73 eGFR NON- AMER. (test code = 92765) 52 ML/MIN/1.73 CALC BUN/CREAT (test code = 2235) 19 RATIO SODIUM (test code = 2231) 140 MEQ/L POTASSIUM (test code = 2228) 4.3 MEQ/L CHLORIDE (test code = 2215) 104 MEQ/L CARBON DIOXIDE (test code = 2206) 26 MEQ/L CALCIUM (test code = 2209) 9.1 MG/DL PROTEIN, TOTAL (test code = 2229) 7.5 G/DL ALBUMIN (test code = 2201) 3.7 G/DL CALC GLOBULIN (test code = 2240) 3.8 G/DL CALC A/G RATIO (test code = 2234) 1.0 RATIO BILIRUBIN, TOTAL (test code = 2207) <0.2 MG/DL ALKALINE PHOSPHATASE (test code = 2204) 114 U/L AST (test code = 2218) 12 U/L ALT (test code = 2219) 12 U/L [id number] 00:00:00* Test Item Value Reference Range Interpretation Comme nts TSH, THIRD GENERATION (test code = 2821) 6.280 UIU/ML [id number] 00:00:00* Test Item Value Reference Range Interpretation Comme nts TSH, THIRD GENERATION (test code = 2821) 6.280 UIU/ML [id number] 00:00:00* Test Item Value Reference Range Interpretation Comme nts TSH, THIRD GENERATION (test code = 2821) 6.280 UIU/ML HEMOGLOBIN [id number] 00:00:00* Test Item Value Reference Range Interpretation Comme nts HEMOGLOBIN A1c (test code = 54081) 11.5 % HEMOGLOBIN [id number] 00:00:00* Test Item Value Reference Range Interpretation Comme nts HEMOGLOBIN A1c (test code = 44863) 11.5 % HEMOGLOBIN [id number] 00:00:00* Test Item Value Reference Range Interpretation Comme nts HEMOGLOBIN A1c (test code = 82104) 11.5 % LIPID [id number] 00:00:00* Test Item Value Reference Range Interpretation Comme nts CHOLESTEROL (test code = 2210) 260 MG/DL TRIGLYCERIDES (test code = 2232) 353 MG/DL HDL CHOLESTEROL (test code = 2220) 40 MG/DL CALC LDL CHOL (test code = 2237) 160 MG/DL RISK RATIO LDL/HDL (test cod e = 2238) 4.00 RATIO LIPID [id number] 00:00:00* Test Item Value Reference Range Interpretation Comme nts CHOLESTEROL (test code = 2210) 260 MG/DL TRIGLYCERIDES (test code = 2232) 353 MG/DL HDL CHOLESTEROL (test code = 2220) 40 MG/DL CALC LDL CHOL (test code = 2237) 160 MG/DL RISK RATIO LDL/HDL (test cod e = 2238) 4.00 RATIO COMPREHENSIVE METABOLIC [id number] 00:00:00* Test Item Value Reference Range Interpretation Comme nts GLUCOSE (test code = 2217) 300 MG/DL BUN (test code = 2208) 23 MG/DL CREATININE (test code = 2214) 1.24 MG/DL eGFR AMER. (test cod e = 15727) 60 ML/MIN/1.73 eGFR NON- AMER. (test code = 88121) 52 ML/MIN/1.73 CALC BUN/CREAT (test code = 2235) 19 RATIO SODIUM (test code = 2231) 140 MEQ/L POTASSIUM (test code = 2228) 4.3 MEQ/L CHLORIDE (test code = 2215) 104 MEQ/L CARBON DIOXIDE (test code = 2206) 26 MEQ/L CALCIUM (test code = 2209) 9.1 MG/DL PROTEIN, TOTAL (test code = 2229) 7.5 G/DL ALBUMIN (test code = 2201) 3.7 G/DL CALC GLOBULIN (test code = 2240) 3.8 G/DL CALC A/G RATIO (test code = 2234) 1.0 RATIO BILIRUBIN, TOTAL (test code = 2207) <0.2 MG/DL ALKALINE PHOSPHATASE (test code = 2204) 114 U/L AST (test code = 2218) 12 U/L ALT (test code = 2219) 12 U/L COMPREHENSIVE METABOLIC [id number] 00:00:00* Test Item Value Reference Range Interpretation Comme nts GLUCOSE (test code = 2217) 300 MG/DL BUN (test code = 2208) 23 MG/DL CREATININE (test code = 2214) 1.24 MG/DL eGFR AMER. (test cod e = 92834) 60 ML/MIN/1.73 eGFR NON- AMER. (test code = 55773) 52 ML/MIN/1.73 CALC BUN/CREAT (test code = 2235) 19 RATIO SODIUM (test code = 2231) 140 MEQ/L POTASSIUM (test code = 2228) 4.3 MEQ/L CHLORIDE (test code = 2215) 104 MEQ/L CARBON DIOXIDE (test code = 2206) 26 MEQ/L CALCIUM (test code = 2209) 9.1 MG/DL PROTEIN, TOTAL (test code = 2229) 7.5 G/DL ALBUMIN (test code = 2201) 3.7 G/DL CALC GLOBULIN (test code = 2240) 3.8 G/DL CALC A/G RATIO (test code = 2234) 1.0 RATIO BILIRUBIN, TOTAL (test code = 220) <0.2 MG/DL ALKALINE PHOSPHATASE (test code = 2203) 114 U/L AST (test code = 2217) 12 U/L ALT (test code = 2219) 12 U/L [id number] 00:00:00* Test Item Value Reference Range Interpretation Comme nts TSH, THIRD GENERATION (test code = 2821) 6.280 UIU/ML [id number] 00:00:00* Test Item Value Reference Range Interpretation Comme nts TSH, THIRD GENERATION (test code = 2821) 6.280 UIU/ML [id number] 00:00:00* Test Item Value Reference Range Interpretation Comme nts TSH, THIRD GENERATION (test code = 2821) 6.280 UIU/ML HEMOGLOBIN [id number] 00:00:00* Test Item Value Reference Range Interpretation Comme nts HEMOGLOBIN A1c (test code = 80722) 11.5 % HEMOGLOBIN [id number] 00:00:00* Test Item Value Reference Range Interpretation Comme nts HEMOGLOBIN A1c (test code = 07595) 11.5 % HEMOGLOBIN [id number] 00:00:00* Test Item Value Reference Range Interpretation Comme nts HEMOGLOBIN A1c (test code = 78686) 11.5 % LIPID [id number] 00:00:00* Test Item Value Reference Range Interpretation Comme nts CHOLESTEROL (test code = 2210) 260 MG/DL TRIGLYCERIDES (test code = 2232) 353 MG/DL HDL CHOLESTEROL (test code = 2220) 40 MG/DL CALC LDL CHOL (test code = 2237) 160 MG/DL RISK RATIO LDL/HDL (test cod e = 2238) 4.00 RATIO LIPID [id number] 00:00:00* Test Item Value Reference Range Interpretation Comme nts CHOLESTEROL (test code = 2210) 260 MG/DL TRIGLYCERIDES (test code = 2232) 353 MG/DL HDL CHOLESTEROL (test code = 2220) 40 MG/DL CALC LDL CHOL (test code = 2237) 160 MG/DL RISK RATIO LDL/HDL (test cod e = 2238) 4.00 RATIO COMPREHENSIVE METABOLIC [id number] 00:00:00* Test Item Value Reference Range Interpretation Comme nts GLUCOSE (test code = 2217) 313 MG/DL BUN (test code = 2208) 15 MG/DL CREATININE (test code = 2214) 0.71 MG/DL eGFR AMER. (test cod e = 47715) 123 ML/MIN/1.73 eGFR NON- AMER. (test code = 69667) 106 ML/MIN/1.73 CALC BUN/CREAT (test code = 2235) 21 RATIO SODIUM (test code = 2231) 136 MEQ/L POTASSIUM (test code = 2228) 4.5 MEQ/L CHLORIDE (test code = 2215) 97 MEQ/L CARBON DIOXIDE (test code = 2206) 23 MEQ/L CALCIUM (test code = 2209) 10.0 MG/DL PROTEIN, TOTAL (test code = 2229) 8.1 G/DL ALBUMIN (test code = 2201) 4.3 G/DL CALC GLOBULIN (test code = 2240) 3.8 G/DL CALC A/G RATIO (test code = 2234) 1.1 RATIO BILIRUBIN, TOTAL (test code = 2207) 0.3 MG/DL ALKALINE PHOSPHATASE (test code = 2204) 110 U/L AST (test code = 2218) 13 U/L ALT (test code = 2219) 11 U/L COMPREHENSIVE METABOLIC [id number] 00:00:00* Test Item Value Reference Range Interpretation Comme nts GLUCOSE (test code = 2217) 313 MG/DL BUN (test code = 2208) 15 MG/DL CREATININE (test code = 2214) 0.71 MG/DL eGFR AMER. (test cod e = 70226) 123 ML/MIN/1.73 eGFR NON- AMER. (test code = 04295) 106 ML/MIN/1.73 CALC BUN/CREAT (test code = 2235) 21 RATIO SODIUM (test code = 2231) 136 MEQ/L POTASSIUM (test code = 2228) 4.5 MEQ/L CHLORIDE (test code = 2215) 97 MEQ/L CARBON DIOXIDE (test code = 2206) 23 MEQ/L CALCIUM (test code = 2209) 10.0 MG/DL PROTEIN, TOTAL (test code = 2229) 8.1 G/DL ALBUMIN (test code = 2201) 4.3 G/DL CALC GLOBULIN (test code = 2240) 3.8 G/DL CALC A/G RATIO (test code = 2234) 1.1 RATIO BILIRUBIN, TOTAL (test code = 2207) 0.3 MG/DL ALKALINE PHOSPHATASE (test code = 2204) 110 U/L AST (test code = 2218) 13 U/L ALT (test code = 2219) 11 U/L LIPID [id number] 00:00:00* Test Item Value Reference Range Interpretation Comme nts CHOLESTEROL (test code = 2210) 244 MG/DL TRIGLYCERIDES (test code = 2232) 376 MG/DL HDL CHOLESTEROL (test code = 2220) 48 MG/DL CALC LDL CHOL (test code = 2237) 121 MG/DL RISK RATIO LDL/HDL (test cod e = 2238) 2.52 RATIO LIPID [id number] 00:00:00* Test Item Value Reference Range Interpretation Comme nts CHOLESTEROL (test code = 2210) 244 MG/DL TRIGLYCERIDES (test code = 2232) 376 MG/DL HDL CHOLESTEROL (test code = 2220) 48 MG/DL CALC LDL CHOL (test code = 2237) 121 MG/DL RISK RATIO LDL/HDL (test cod e = 2238) 2.52 RATIO THYROID II PROFILE (T3U, T4, T7, TSH)[id number] 00:00:00* Test Item Value Reference Range Interpretation Comme nts T3 UPTAKE (test code = 2817) 25.0 % T4 (THYROXINE) (test code = 2819) 5.7 UG/DL CALCULATED T7 (FTI) (test co de = 2820) 1.43 TSH (test code = 2821) 17.0 UIU/ML THYROID II PROFILE (T3U, T4, T7, TSH)2015-08-01 00:00:00* Test Item Value Reference Range Interpretation Comme nts T3 UPTAKE (test code = 2817) 25.0 % T4 (THYROXINE) (test code = 2819) 5.7 UG/DL CALCULATED T7 (FTI) (test co de = 2820) 1.43 TSH (test code = 2821) 17.0 UIU/ML HEMOGLOBIN [id number] 00:00:00* Test Item Value Reference Range Interpretation Comme nts HEMOGLOBIN A1c (test code = 35933) 12.3 % HEMOGLOBIN [id number] 00:00:00* Test Item Value Reference Range Interpretation Comme nts HEMOGLOBIN A1c (test code = 27070) 12.3 % HEMOGLOBIN [id number] 00:00:00* Test Item Value Reference Range Interpretation Comme nts HEMOGLOBIN A1c (test code = 58986) 12.3 % CBC W/AUTO [id number] 00:00:00* Test Item Value Reference Range Interpretation Comme nts WBC (test code = 1001) 7.9 K/UL [...] code = 1015) 408 K/UL CBC W/AUTO [id number] 00:00:00* Test Item Value Reference Range Interpretation Comme nts WBC (test code = 1001) 7.9 K/UL [...] code = 1015) 408 K/UL CBC W/AUTO [id number] 00:00:00* Test Item Value Reference Range Interpretation Comme nts WBC (test code = 1001) 7.9 K/UL [...] code = 1015) 408 K/UL COMPREHENSIVE METABOLIC [id number] 00:00:00* Test Item Value Reference Range Interpretation Comme nts GLUCOSE (test code = 2217) 313 MG/DL BUN (test code = 2208) 15 MG/DL CREATININE (test code = 2214) 0.71 MG/DL eGFR AMER. (test cod e = 79006) 123 ML/MIN/1.73 eGFR NON- AMER. (test code = 87691) 106 ML/MIN/1.73 CALC BUN/CREAT (test code = 2235) 21 RATIO SODIUM (test code = 2231) 136 MEQ/L POTASSIUM (test code = 2228) 4.5 MEQ/L CHLORIDE (test code = 2215) 97 MEQ/L CARBON DIOXIDE (test code = 2206) 23 MEQ/L CALCIUM (test code = 2209) 10.0 MG/DL PROTEIN, TOTAL (test code = 2229) 8.1 G/DL ALBUMIN (test code = 2201) 4.3 G/DL CALC GLOBULIN (test code = 2240) 3.8 G/DL CALC A/G RATIO (test code = 2234) 1.1 RATIO BILIRUBIN, TOTAL (test code = 2207) 0.3 MG/DL ALKALINE PHOSPHATASE (test code = 2204) 110 U/L AST (test code = 2218) 13 U/L ALT (test code = 2219) 11 U/L COMPREHENSIVE METABOLIC [id number] 00:00:00* Test Item Value Reference Range Interpretation Comme nts GLUCOSE (test code = 2217) 313 MG/DL BUN (test code = 2208) 15 MG/DL CREATININE (test code = 2214) 0.71 MG/DL eGFR AMER. (test cod e = 59132) 123 ML/MIN/1.73 eGFR NON- AMER. (test code = 82994) 106 ML/MIN/1.73 CALC BUN/CREAT (test code = 2235) 21 RATIO SODIUM (test code = 2231) 136 MEQ/L POTASSIUM (test code = 2228) 4.5 MEQ/L CHLORIDE (test code = 2215) 97 MEQ/L CARBON DIOXIDE (test code = 2206) 23 MEQ/L CALCIUM (test code = 2209) 10.0 MG/DL PROTEIN, TOTAL (test code = 2229) 8.1 G/DL ALBUMIN (test code = 2201) 4.3 G/DL CALC GLOBULIN (test code = 2240) 3.8 G/DL CALC A/G RATIO (test code = 2234) 1.1 RATIO BILIRUBIN, TOTAL (test code = 2207) 0.3 MG/DL ALKALINE PHOSPHATASE (test code = 2204) 110 U/L AST (test code = 2218) 13 U/L ALT (test code = 2219) 11 U/L LIPID [id number] 00:00:00* Test Item Value Reference Range Interpretation Comme nts CHOLESTEROL (test code = 2210) 244 MG/DL TRIGLYCERIDES (test code = 2232) 376 MG/DL HDL CHOLESTEROL (test code = 2220) 48 MG/DL CALC LDL CHOL (test code = 2237) 121 MG/DL RISK RATIO LDL/HDL (test cod e = 2238) 2.52 RATIO LIPID [id number] 00:00:00* Test Item Value Reference Range Interpretation Comme nts CHOLESTEROL (test code = 2210) 244 MG/DL TRIGLYCERIDES (test code = 2232) 376 MG/DL HDL CHOLESTEROL (test code = 2220) 48 MG/DL CALC LDL CHOL (test code = 2237) 121 MG/DL RISK RATIO LDL/HDL (test cod e = 2238) 2.52 RATIO THYROID II PROFILE (T3U, T4, T7, TSH)2015-08-01 00:00:00* Test Item Value Reference Range Interpretation Comme nts T3 UPTAKE (test code = 2817) 25.0 % T4 (THYROXINE) (test code = 2819) 5.7 UG/DL CALCULATED T7 (FTI) (test co de = 2820) 1.43 TSH (test code = 2821) 17.0 UIU/ML THYROID II PROFILE (T3U, T4, T7, TSH)2015-08-01 00:00:00* Test Item Value Reference Range Interpretation Comme nts T3 UPTAKE (test code = 2817) 25.0 % T4 (THYROXINE) (test code = 2819) 5.7 UG/DL CALCULATED T7 (FTI) (test co de = 2820) 1.43 TSH (test code = 2821) 17.0 UIU/ML HEMOGLOBIN [id number] 00:00:00* Test Item Value Reference Range Interpretation Comme nts HEMOGLOBIN A1c (test code = 98713) 12.3 % HEMOGLOBIN [id number] 00:00:00* Test Item Value Reference Range Interpretation Comme nts HEMOGLOBIN A1c (test code = 01990) 12.3 % HEMOGLOBIN [id number] 00:00:00* Test Item Value Reference Range Interpretation Comme nts HEMOGLOBIN A1c (test code = 62743) 12.3 % CBC W/AUTO [id number] 00:00:00* Test Item Value Reference Range Interpretation Comme nts WBC (test code = 1001) 7.9 K/UL [...] code = 1015) 408 K/UL CBC W/AUTO [id number] 00:00:00* Test Item Value Reference Range Interpretation Comme nts WBC (test code = 1001) 7.9 K/UL [...] code = 1015) 408 K/UL CBC W/AUTO [id number] 00:00:00* Test Item Value Reference Range Interpretation Comme nts WBC (test code = 1001) 7.9 K/UL [...] COUNT (test code = 1015) 408 K/UL History and Physical Notes Date/Time Note Provider Source 2023-02-16 11:07:50 [id number] ormatting of this note is different from the original.CC: uterine prolapse, abnl uterine bleeding, MISTY, cystoceleHPI: Nan B Bradford is a 47 year old year old female who presents today for a preop visit for abnl uterine bleeding, uterine prolapse and cystocele w/ MISTY.Menses are q month.Menses would last ~2 wks for the past several years.She would pass golf ball sized clots.She would saturate a pad 5-6 times an hr for ~1 day of her cycle.She has lower pelvic cramping and back pain w/ her cycles.She endorses feeling fatigued.More recently she has enjoyed menses that last only 3-4 days.She does not miss any cycles.She does endorse hot flashes, night sweats and mood swings.Of note, pt had her hgb checked per her PCP in 04/2022 and found to be 7.3g/dl.She has been seen per hematology and has undergone IV iron infusions.Her most recent hgb was 9.6 g/dl in 10/2022.Of note, pt w/ a h/o DM, HTN, hypothyroid and hyperlipidemia.She is s/p a BTL for control.Last seen per me on 09/03/22 w/ the following:Described as a lump the size of a golf ball per her vagina.Notes it more when she is standing.Also noting increase in MISTY sx.Leaks w/ coughing, sneezing, etc.H/o x 4.She underwent a pelvic u/s on 07/15/22 revealing:PROCEDURE: US PELVIS TRANSABD AND TRANSVAGHISTORY: h/o heavy menses and chronic blood loss anemiaCOMPARISON: None available.Reported LMP: 07/10/2022FINDINGS:The right ovary is visualized only on transvaginal imaging.Uterus:Orientation: Anteverted.Size: 9.9 x 4.7 x 6.0 cm.Mass: None.Endometrium: Trace fluid is present in the endometrial canal. The double layer endometrial thickness measures 0.9 cm.Nabothian cysts are present.Ovaries:Right Ovary Measurement: 4.2 x 2.6 x 2.5 cm.Right Ovarian Finding: There is a complex cyst measuring 2.1 x 1.8 x 2.0 cm, likely hemorrhagic. There is an anechoic cyst measuring 3.5 x 1.9 x 3.2 cm.Left Ovary Measurement: 3.4 x 2.5 x 3.1 cm.Left Ovarian Finding: There is a complex cyst measuring 2.5 x 1.8 x 1.8 cm, likely hemorrhagic.Free Fluid: None.IMPRESSION:Bilateral ovarian cysts as described above.She had UDS done per Dr. Rodriguez in the urology dept on 10/27/22 and did leak on this exam.Options for treatment were d/w pt per myself and Dr. Rodriguez in detail including surgical management vs conservative options including pessary placement.She is not interested in pessary placement.She is desiring definitive therapy at this time.She is now scheduled for a da josé TLH w/ bilateral salpingectomy per wv followed with anterior repair and SSLF, along with synthetic sling per Dr. Rodriguez.Of note, pt has a h/o type 2 DM that is well controlled.Her last hgb A1C from 10/30/22 was 6.8%.OB HistoryGravida Para Term AB Living4 4 4 0 0 4SAB IAB Ectopic Molar Multiple Live Births0 0 0 0 0 4Obstetric CommentsPOBHX: x 4.PGYNHX: h/o menometrorrhagia for years. No STDs. No abnl pap.Past Medical HistoryPast Medical History:Diagnosis DateAcquired hypothyroidismDM type 2 with diabetic mixed hyperlipidemia (multi HCC)taking medicationHypercholesteremiaIron deficiency anemia due to chronic blood loss 3Primary hypertensiontaking medicationPast Surgical History[]Expand by DefaultPast Surgical History:Procedure Laterality DateCOLONOSCOPY WITH SNARE N/A 3Performed by [facility] at [facility] ASCTUBAL LIGATIONUPPER GI ENDOSCOPY, BIOPSY N/A 3Performed by Keshawn Jones MD at [facility] ASCCurrent Outpatient Medications on File Prior to VisitMedication Sig Dispense RefillEsomeprazole Magnesium (NexIUM) 40 MG oral Delayed Release Capsule Take 1 capsule (40 mg total) by mouth 2 times daily for 14 days 28 capsule 0[] Metronidazole (Flagyl) 500 MG oral Tablet Take 1 tablet (500 mg total) by mouth 2 times daily for 14 days 28 tablet 0Aspirin 81 MG oral Tablet Delayed Response Take 1 tablet every day by oral route.Atorvastatin Calcium (Lipitor) 10 MG oral Tablet Take 1 tablet (10 mg total) by mouth nightly. 90 tablet 3Carvedilol (Coreg) 3.125 MG oral Tablet Take 1 tablet (3.125 mg total) by mouth in the morning and 1 tablet (3.125 mg total) in the evening. Take with meals. 180 tablet 0Gabapentin 100 MG oral Capsule Take 1 capsule (100 mg total) by mouth 2 times daily as needed (pain). 60 capsule 2glipiZIDE 10 MG oral Tablet Take 1 tablet (10 mg total) by mouth in the morning and 1 tablet (10 mg total) in the evening. Take before meals. 180 tablet 3Lansoprazole 30 MG oral Delayed Release Capsule Take 1 capsule (30 mg total) by mouth daily 30 capsule 2Latanoprost 0.005 % ophthalmic Solution Place 1 drop into both eyes nightly. 2.5 mL 3Levothyroxine Sodium 75 MCG oral Tablet Take 1 tablet (75 mcg total) by mouth daily 90 tablet 1Na Sulfate-K Sulfate-Mg Sulf (SUPREP BOWEL PREP KIT) 17.5-3.13-1.6 GM/177ML oral Solution Instructions provided to patient. Follow instructions provided by provider. 1 kit 0Ondansetron HCl 4 MG oral Tablet Take 1 tablet (4 mg total) by mouth every 8 hours as needed for nausea 15 tablet 0Sitagliptin Phosphate (Januvia) 50 MG oral Tablet Take 1 tablet (50 mg total) by mouth daily 90 tablet 3Current Facility-Administered Medications on File Prior to VisitMedication Dose Route Frequency Provider Last Rate Last Admin[COMPLETED] Bevacizumab (AVASTIN) 100 mg/4 mL - Physician Administered ([id number]) 1.25 mg Physician Administered Once Gideon Rodriguez MD 1.25 mg at 10/30/22 1419AllergiesAllergen ReactionsHydrocodoneOther reaction(s): Nausea/VomitingOther reaction(s): Not availableSocial HistorySocioeconomic HistoryMarital status: SingleSpouse name: Not on fileNumber of children: 4Years of education: Not on fileHighest education level: 8th gradeOccupational 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: CashierTobacco UseSmoking status: FormerTypes: E-cigarettesQuit date: 06/08/2022Years since quittin.4Smokeless tobacco: NeverVaping UseVaping Use: Every daySubstances: Nicotine-saltSubstance and Sexual ActivityAlcohol use: Not CurrentlyDrug use: NeverSexual activity: YesPartners: MaleBirth control/protection: Tubal LigationOther Topics ConcernNot on fileSocial History NarrativeNot on fileSocial Determinants of HealthFinancial Resource Strain: Not on fileFood Insecurity: Not on fileTransportation Needs: Not on filePhysical Activity: Not on fileStress: Not on fileSocial Connections: Not on fileIntimate Partner Violence: Not on fileHousing Stability: Not on fileBP 146/76 (Side: Right Arm, Position: SITTING, Cuff Size: Medium Adult) | Pulse 82 | Resp 18 | Ht 4' 11" | Wt 147 lb 12.8 oz | LMP 10/05/2022 (Exact Date) | BMI 29.85 kg/m?Contraception: BTLAnita is well developed, normal habitus, with no acute distress.Breast:exam deferredAbdomen:benign, soft, non-tender and no masses or organomegalyPelvic: Vulva- No lesions, no rashes, well estrogenizedUrethra- NormalVagina- normal, well estrogenized. 3rd degree cystocele noted.Cervix- Normal, No cervical motion tenderness and w/ 2nd degree descensus (3rd degree w/ valsalva).Uterus- NSSPM (normal shape, size, position, mobile), Anteverted, anteflexed and non-tenderAdnexae- no masses, non-tenderPerineum- NormalA/P: abnl uterine bleeding, pelvic organ prolapse, cystocele and MISTY- Pt scheduled for a da josé TLH w/ bilateral salpingectomy on 03/02/23 at [facility] [place] followed with anterior repair and SSLF, along with synthetic sling per Dr. Rodriguez.- all risks and benefits d/w pt including bleeding, infection, damage to surrounding structures including bowel, bladder, ureters, vessel injury, nerve injury possibly necessitating open laparotomy to repair injury; possible conversion to open case to finish procedure. Possible removal of one or both ovaries resulting in vasomotor sx possibly necessitating the use of hormone replacement w/ the inherent risks associated w/ hormone replacement. Possible uncontrollable leakage of urine.- she is aware of the ~1% lifetime risk for ovarian CA w/ ovarian preservation.- she is also aware of possible need for re-operation for removal of her ovaries in the future.- pt understands above risks and desires procedure to proceed.- all questions answered.Pt's pain meds escribed today (norco and motrin). 44428-7Hjhsgzf and physical jioxBO0756-79-31U26:43:46History and physical noteTXT1.2.840.969516.1.13.131.2.7.2.39288 9|[id number] for patient balu60923-2Pwdspes and physical noteLNNARRATIVEFormatted C-CDA narrative textSSM Health St. [facility]'s [facility]27[address] [facility].[id number]- 01-09T16:43:461.2.840.622217.1.72.3.15|1.2 .840.992670.1.13.131.2.7.2.727879_[id number] 1 [facility] Notes Date/Time Note Provider Source 2023-02-24 01:23:43 o8j7QrQmB0GLXsZXAt2KpHqyIeqY0SxK9xb b8x2GSSK9AMEAY9EafdEmXBt8iTPS8956-8 01:23:43 Pt given printed and verbal discharge instructions regarding epigastric pain, calculus of gallbladder without cholecystitis without obstruction, CKD, Chronic anemia, uncontrollewd type 2 diabetes mellitus.Prescriptions providedDiscussed tramadol side affects and to avoid driving/operating machinery/or engaging in activities requiring alertness while taking.Pt verbalized understanding of instructions, pt awake alert oriented, resp reg unlabored, skin w/d, color appropriate for race, moves all ext well,pt encouraged to follow up with pcpAdvised to seek medical attention for new/prolonged/worsening of symptomsNo adverse reaction to meds given in ER noted upon dischargePIV d'cd, dressing to site, catheter in tact.Awake, alert oriented, resp reg unlabored, skin w/d, pt leaving amb with steady gait, in no apparent distress [address]1993-3Pltftlrdj[address] [place] [address] RtepOO0485-77-38X30:25:15[facility] department NoteTXT1.2.840.701676.1.13.104.2.7. 2.235311|[id number] for patient blys58346-5YsuuZKDJVJHTBHAUsrmiiuby C-CDA narrative [id number] A Diaz RN[id number] 4QJAZLLSHRNFUAPRDVGQWUV4912-10-69O9 1:25:151.2.840.544254.1.72.3.15|1.2 .840.267892.1.13.104.2.7.2.727879_2 [id number] Mary Chung RN [facility] 2023-02-23 23:02:11 WbwceclarHgTAZAxTPgTB5emf091NiVVUBA zLGLP5p51rnTPDNl3oSPnNz0Iv4uq0791-2 02-23T23:02:11 Report given to KARELY Chung 15410-6Laelfdkxf department GlyvFF3924-60-70B14:02:24Ememult[facility] department NoteTXT1.2.840.829644.1.13.104.2.7. 2.042285|[id number] for patient mtrf78698-8FmguTNWWPIFVHBMTzwwdseeq C-CDA narrative [id number] M Herrera RN[id number] 8RWNYOEHEDQVTILVFNXWKTZ6634-82-53B3 3:02:241.2.840.741159.1.72.3.15|1.2 .840.096512.1.13.104.2.7.2.727879_2 [id number] Abbi Patel RN [facility] 2023-02-23 22:17:43 ARpqr1N93K95Qd2eTiHJ8H4tAGBV53GT91i w6ehKEiPxR1ODnepgIJcNGu33R3dX9126-8 02-23T22:17:43 Patient aware of urine sample needed. Unable to provide sample at this time. Urine cup at bedside. 17255-2Zokbehcxg department TnfmZL0599-64-10K66:18:14[facility] department NoteTXT1.2.840.111083.1.13.104.2.7. 2.959109|[id number] for patient woyn68994-7IkigYVPMGFUPJLKPkntcqqnv C-CDA narrative aqbq107799935Plbtqx-Izxvc McInnis RNUT[address] [id number] 1WGJLAKJBOYCUFXTIOEBXTX0894-68-95E8 2:18:141.2.840.568742.1.72.3.15|1.2 .840.207574.1.13.104.2.7.2.727879_2 [id number] Pamela Vasquez RN [facility] 2023-02-23 21:34:10 jeTgic3+rXq3b+1Z3JJoIB0ve0FOu85vudg zYyQ2vw8uykvBlBL9KrAU6PScbScw9040-1 02-23T21:34:10Summary: Triage CC: patient is having vomiting and abdominal pain that started at 0600 upper mid abdominal pain, patient is vomiting in triagePMHx: diabetes and HTNPSH:noneMEDS:glipizide, esomerprazole, latanoprost, levothyroxine, sitagliptin, atorvastatin, IronLMP: 02/23/23Tetanus: unknownAwake, alert, oriented, resp reg unlabored, skin warm, color appropriate for race, moves all ext without difficulty, amb with without assistanceAppears in none distress 71698-0Cyhfucjna department Triage nsciOG0331-74-10U93:40:00[facility] department Triage noteTXT1.2.840.995925.1.13.104.2.7. 2.779141|[id number] for patient mgoy97458-7Uidubvxji department NoteLNNARRATIVEFormatted C-CDA narrative [id number] Schroeder RN[address] Yy[id number] 0TXJKOZGCEKPLABHJVLFKNN1287-38-03V9 1:40:001.2.840.937698.1.72.3.15|1.2 .840.708309.1.13.104.2.7.2.727879_2 [id number] Gudelia Graf RN [facility] 2023-02-16 13:13:20 02gZbHMVpqXoXR9Q4Zf+KPeOVt+t0vzbuOb lkqCEnOfpA1uNXWH5VT0jZIQ63UFC8678-0 3:13:20 Chief ComplaintPatient presents withPre-[place] [address]-3Iijop UvxfHI8186-50-24X00:28:09Nurse NoteTXT1.2.840.699940.1.13.131.2.7. 2.873378|[id number] for patient loop71099-4Fdkmp NoteLNNARRATIVEFormatted C-CDA narrative text[id number] MK2212-24-34R75:28:091.2.840.782921 .1.72.3.15|1.2.840.431189.1.13.131. 2.7.2.727879_[id number] [facility] 2023-02-16 11:06:27 4HN+DtUDUH6ZAo7HAoFurbR2OtRuK0gbknz qjHLrVIaPBMbf+dsac/xfDAJ7K4kN6760-9 :06:27 Chief ComplaintPatient presents [place] [address]-1Pzrly JuxeVT5982-63-42I47:06:38Nurse NoteTXT1.2.840.313903.1.13.131.2.7. 2.534240|[id number] for patient ykvq03657-0Rrytt NoteLNNARRATIVEFormatted C-CDA narrative [id number] M Velo CMA IKELSEY[address] [id number] RT9949-29-11U12:06:381.2.840.071367 .1.72.3.15|1.2.840.392151.1.13.131. 2.7.2.727879_[id number] Estelita Maya CMA I [facility] 2023-02-03 14:18:43 GZXJudi3DoUErImdHwrIR+/uzhQg0aLZeyl vfMlZb/YLe/xa8uOXieZd3gctJRgp4766-8 4:18:43 Chief ComplaintPatient presents withConsultationReferral for Pain in both hands, Erosive osteoarthritis of [place] [address]-3Jlcqo UazvYT2240-91-73B68:19:20Nurse NoteTXT1.2.840.901953.1.13.131.2.7. 2.610745|[id number] for patient quel46401-9Ksbdb NoteLNNARRATIVEFormatted C-CDA narrative text[id number] GR4026-59-15P81:19:201.2.840.516157 .1.72.3.15|1.2.840.927936.1.13.131. 2.7.2.727879_[id number] [facility] 2022-10-27 14:21:58 V42v/hjyeCu+i5d2TU+VTKk1XquSV4W1URN nazI1qwyPmT6FXIO6YtQjpx99XRYp4500-6 4:21:58 Chief Complaint Patient presents with OTHER cystocele 45357-8Jbtdi HzutPQ5253-83-80C41:23:03Nurse NoteTXT1.2.840.421911.1.13.131.2.7. 2.857412|[id number] for patient tnhp53871-0Hwfkx NoteLN[address]PQLLDQSVDODEMLCMNX9148705259US RZ8592-68-86M98:23:031.2.840.145654 .1.72.3.15|1.2.840.199712.1.13.131. 2.7.2.727879_[id number] [facility] 2022-10-26 14:32:30 tsMZ8MvwWUxRxgXhnWC728FeEBvJqIE5MNL dpe1iv7jbnoTian6W+LBCipb3kIqw3414-3 4:32:30 Chief Complaint Patient presents with Follow-Up Visit Follow up- right chronic lisfranc injury Jul 2021. She has Cd with images. Also Today had an Xray on file. She wants to know if she need surgery. Tabitha Mongeer 79091-8Lqrhp LcvlKR3171-90-35G86:33:36Nurse NoteTXT1.2.840.109313.1.13.131.2.7. 2.899884|[id number] for patient feab17655-5Fuqxs ZchrBN332928301Aeqvmy SergioOJMemorial Health [facility]2727 [facility].WFAMRPLRETSEWMBPHT7935700064CJ XP2585-32-25C44:33:361.2.840.730434 .1.72.3.15|1.2.840.147242.1.13.131. 2.7.2.727879_[id number] Tabitha Hill [facility] 2022-09-03 15:25:19 SsRNVTmBvh6wgaKDFO6kpTafvqejHwO6AFq JuBrFAl0iEVIJZUnwkKUNnaUsaf0S3386-2 5:25:19 Chief Complaint Patient presents with Vaginal Problem States she feels a lump on the inside of her vagina states there is pressure, when she sits down she can feel the mass, states no bleeding, no odor or discharge change. Has been ongoing for 1 week Tegan Kohler CMA I Patient has not taken her medication today 78253-6Ngbwr YeqaYZ2807-12-70U20:25:42Nurse NoteTXT1.2.840.122220.1.13.131.2.7. 2.125062|[id number] for patient [facility] [place], [place] [id number] XO7071-96-20O58:25:421.2.840.614929 .1.72.3.15|1.2.840.787778.1.13.131. 2.7.2.727879_[id number] [facility]
--- NOTE | 2023-03-01 11:19 | RAD REPORT ---
EXAM DESCRIPTION: US - Abdomen Exam Limited - 03/01/2023 11:13 am CLINICAL HISTORY: ABD PAIN COMPARISON: Renal Ultrasound-Complete dated 04/09/2022 FINDINGS: The gallbladder demonstrates small gallstones in the gallbladder. No pericholecystic fluid or gallbladder wall thickening. The common bile duct is normal measuring 2 mm. The liver demonstrates no findings of intrahepatic biliary dilatation. IMPRESSION: Cholelithiasis.
[2023-03-01] MEDS ORDERED: ONDANSETRON 4 MG/2 ML VIAL ONE (11:56)
[2023-03-01] MEDS ORDERED: NA CHLORIDE 0.9% 1,000 ML ONE ×2 (11:56→13:06)
[2023-03-01] MEDS ORDERED: MORPHINE 4 MG/ML SYR ONE (11:56)
[2023-03-01 12:18] LABS: Absolute Lymphocytes (CBC) 1.7 K/uL (0.7-4.9); Hematocrit 32.4 % (36.0-45.0); Lymphocytes % 16.3 % (15.3-44.8); MCV 92.7 fL (80-100); MPV 7.3 fL (7.6-11.3); Platelets 568 thou/uL (152-406); RBC Red Blood Cell Count 3.49 M/uL (3.86-4.86)
[2023-03-01 12:19] LABS: Albumin 3.2 g/dL (3.4-5.0); Bilirubin Total 0.3 mg/dL (0.2-1.0); Potassium 5.8 mEq/L (3.5-5.1); Protein, Total 8.2 g/dL (6.4-8.2)
--- NOTE | 2023-03-01 12:44 | RAD REPORT ---
EXAM DESCRIPTION: CT - Abdomen Pelvis Wo Contrast - 03/01/2023 12:33 pm CLINICAL HISTORY: Abdominal pain. ABD PAIN COMPARISON: Abdomen Pelvis Wo Contrast dated 04/09/2022; Abdomen Exam Limited dated 03/01/2023 TECHNIQUE: CT imaging of the abdomen and pelvis was performed without contrast. Solid organ, bowel a nd vascular assessment is limited due to lack of IV and oral contrast. All CT scans are performed using dose optimization technique as appropriate and may include automated exposure control or mA/KV adjustment according to patient size. FINDINGS: The lower lung ge are clear.Cholelithiasis. The liver, spleen, pancreas, adrenal glands are within normal limits for a limited non-contrast exami nation.Punctate caliceal stones are present in both kidneys without hydronephrosis. No bowel obstruction, free air, free fluid or abscess. The appendix is normal. The osseous structures are within normal limits. IMPRESSION: Punctate nephrolithiasis bilaterally without hydronephrosis. Cholelithiasis. A limited non-contrast examination was performed as detailed.
--- NOTE | 2023-03-01 13:06 | EDPHYS ---
Physician Documentation [facility] Name: Elsy Bradford Age: 48 yrs Sex: Female : 1975 Arrival Date: 03/01/2023 Time: 10:23 Bed IW10 Private MD: Adriano Agee ED Physician Tai Del Toro HPI: 03/01 10:58 This 48 yrs old Female presents to ER via Ambulatory with complaints of sb4 Nausea/Vomiting. 10:58 The patient presents to the emergency department with nausea, vomiting, abdominal pain, sb4 of the epigastric area and right upper quadrant. Onset: The symptoms/episode began/occurred 1 week(s) ago. Possible causes: gallstones. The symptoms are aggravated by food , The symptoms are alleviated by nothing. Associated signs and symptoms: Pertinent positives: anorexia, nausea, vomiting. The patient has been recently seen by a physician: in the hospital, with similar presenting complaints, and apparently given a diagnosis of gallstones, lab tests were done, CT scan was done, was given a prescription for an antiemetic, and was referred to a specialist, but the patient's symptoms have worsened, but the patient's symptoms have persisted. 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 - Social history:: Smoking status: Patient denies any tobacco usage or history of. Patient/guardian denies using alcohol. ROS: 10:58 Constitutional: Negative for fever, chills, and weight loss, sb4 10:58 Abdomen/GI: Positive for abdominal pain, nausea and vomiting, 10:58 All other systems are negative, Exam: 10:58 Head/Face: Normocephalic, atraumatic. Eyes: Extra-ocular motions intact. Periorbital sb4 areas with no swelling, redness, or edema. Cardiovascular: Regular rate and rhythm with a normal S1 and S2. Respiratory: Lungs have equal breath sounds bilaterally, clear to auscultation and percussion. No rales, rhonchi or wheezes noted. No increased work of breathing, no retractions or nasal flaring. MS/ Extremity: Pulses equal, no cyanosis. Neurovascular intact. Full, normal range of motion. 10:58 Constitutional: The patient appears alert, awake, in obvious pain, uncomfortable, 10:58 Abdomen/GI: Inspection: abdomen appears normal, Bowel sounds: normal, Palpation: soft, moderate abdominal tenderness, in the epigastric area, right upper quadrant and left upper quadrant, 10:58 Skin: Appearance: Color: jaundiced, Vital Signs: 10:39 BP 158 / 92; Pulse 77; Resp 18; Temp 97.6(TE); Pulse Ox 97% on R/A; Weight 63.5 kg; ld1 Height 5 ft. 0 in. ; Pain 7/10; 11:00 BP 151 / 58; Pulse 62; Resp 18; Pulse Ox 99% ; cp4 12:00 BP 146 / 62; Pulse 57; Resp 18; Pulse Ox 99% ; cp4 13:00 BP 162 / 94; Pulse 76; Resp 18; Pulse Ox 99% ; cp4 14:00 BP 156 / 92; Pulse 73; Resp 18; Pulse Ox 99% ; cp4 15:00 BP 152 / 94; Pulse 74; Resp 18; Pulse Ox 100% ; cp4 16:00 BP 172 / 93; Pulse 74; Resp 18; Pulse Ox 100% ; cp4 17:00 BP 168 / 92; Pulse 73; Resp 18; Pulse Ox 100% ; cp4 10:39 Body Mass Index 27.34 (63.50 kg, 152.4 cm) ld1 10:39 Pain Scale: Adult ld1 MDM: 10:48 Patient medically screened. sb4 10:58 Differential diagnosis: cholelithiasis, cholecystitis, pancreatitis, sb4 choledocholithiasis. 13:03 Data reviewed: vital signs, nurses notes, lab test result(s), radiologic studies, and sb4 as a result, I will admit patient. Consideration of Admission/Observation Patient was admitted/placed on observation. Management of patient was discussed with the following: Hospitalist: colette mario. Apple Picker: dr nuñez general surgery, agrees to consult. Historians other than the Patient: Spouse/Significant Other: . Counseling: I had a detailed discussion with the patient and/or guardian regarding the historical points, exam findings, and any diagnostic results supporting the discharge/admit diagnosis, the presence of at least one elevated blood pressure reading (>120/80) during this emergency department visit, lab results, radiology results, the need for further work-up and treatment in the hospital. 03/01 10:55 Order name: CBC with Diff; Complete Time: 12:29 sb4 03/01 10:55 Order name: CMP; Complete Time: 12:20 sb4 03/01 10:55 Order name: Lipase; Complete Time: 12:20 sb4 03/01 10:55 Order name: Test, Urine; Complete Time: 14:32 sb4 03/01 10:55 Order name: Urinalysis w/ reflexes; Complete Time: 14:32 sb4 03/01 14:29 Order name: Urinalysis w/ reflexes EDMS 03/01 14:29 Order name: Basic Metabolic Panel EDMS 03/01 14:29 Order name: Basic Metabolic Panel EDMS 03/01 14:29 Order name: Basic Metabolic Panel EDMS 03/01 14:29 Order name: Basic Metabolic Panel EDMS 03/01 14:29 Order name: Basic Metabolic Panel EDMS 03/01 14:29 Order name: CBC with Automated Diff EDMS 03/01 14:29 Order name: CBC with Automated Diff EDMS 03/01 14:29 Order name: CBC with Automated Diff EDMS 03/01 14:29 Order name: CBC with Automated Diff EDMS 03/01 14:29 Order name: CBC with Automated Diff EDMS 03/01 14:30 Order name: Magnesium EDMS 03/01 14:30 Order name: Magnesium EDMS 03/01 14:30 Order name: Magnesium EDMS 03/01 14:30 Order name: Magnesium EDMS 03/01 14:30 Order name: Magnesium EDMS 03/01 10:55 Order name: Abdomen Limited US; Complete Time: 11:21 sb4 03/01 12:33 Order name: Abdomen ; Complete Time: 12:48 EDMS 03/01 14:23 Order name: Renal Ultrasound-Complete; Complete Time: 14:51 EDMS 03/01 13:50 Order name: CONS Physician Consult EDMS 03/01 10:55 Order name: IV Saline Lock; Complete Time: 11:53 sb4 03/01 10:55 Order name: Labs collected and sent; Complete Time: 11:53 sb4 03/01 12:57 Order name: NPO; Complete Time: 13:03 sb4 Administered Medications: 12:02 Drug: NS 0.9% IV 1000 ml IV at 1 bolus Per protocol; 1000 mL bolus Route: IV; Rate: 1 cp4 bolus; Site: right antecubital; 13:25 Follow up: Response: No adverse reaction; IV Status: Completed infusion cp4 12:02 Drug: Ondansetron IVP 4 mg IVP once; over 2 minutes Route: IVP; Site: right antecubital;cp4 12:36 Follow up: Response: No adverse reaction cp4 12:02 Drug: morphine IVP or IV 4 mg IVP once over 4 mins Route: IVP; Infused Over: 4 mins; cp4 Site: right antecubital; 12:36 Follow up: Response: No adverse reaction cp4 13:04 Drug: NS 0.9% IV 1000 ml IV at 1 bolus Per protocol; 1000 mL bolus Route: IV; Rate: 1 cp4 bolus; Site: right antecubital; 14:45 Follow up: Response: No adverse reaction; IV Status: Completed infusion cp4 13:25 Drug: metoCLOPramide IVP 10 mg IVP once; over 1 to 2 minutes Route: IVP; Site: right cp4 antecubital; 13:26 Follow up: Response: No adverse reaction cp4 13:25 Drug: cefOXitin IVPB 1 grams IVPB once over 30 mins; (mix in 50 mL NS) Route: IVPB; cp4 Infused Over: 30 mins; Site: right antecubital; 15:45 Follow up: Response: No adverse reaction; IV Status: Completed infusion cp4 Disposition: 20:11 Co-signature as Attending Physician, Tai Del Toro MD I reviewed the patient's care rt provided by the Advanced Practice Provider and agree with the diagnosis and treatment plan. Disposition Summary: 03/01/23 13:05 Hospitalization Ordered Notes: Hospitalization Status: Inpatient Admission sb4 Provider: Sally Louis4 Location: Telemetry/[facility] (Inpatient) sb4 Condition: Fair sb4 Problem: new sb4 Symptoms: are unchanged sb4 Bed/Room Type: Standard sb4 Room Assignment: 219(03/01/23 15:45) bd Diagnosis - Acute kidney failure, unspecified sb4 - Other cholelithiasis without obstruction sb4 - Nausea with vomiting, unspecified sb4 Forms: - Medication Reconciliation Form sb4 - SBAR form sb4 - Leadership Thank You Letter sb4 Signatures: Dispatcher [employer] EDMS Amber Tesfaye bd Yohana Chaney, KARELY RN ld1 Gail Fischer, VELASQUEZ ENG sb4 Tai Del Toro MD MD rt Ada Brizuela cp4 Corrections: (The following items were deleted from the chart) 12:33 10:56 Abdomen Pelvis W Con+CT.RAD.BRZ ordered. EDMS EDMS 14:23 13:33 Renal Ultrasound-Limited ordered. EDMS EDMS 15:45 13:05 sb4 bd
--- NOTE | 2023-03-01 13:06 | ER ---
Nurse's Notes [facility] Name: Elsy Bradford Age: 48 yrs Sex: Female : 1975 Arrival Date: 03/01/2023 Time: 10:23 Bed [id number] Private MD: Adriano Agee Diagnosis: Acute kidney failure, unspecified;Other cholelithiasis without obstruction;Nausea with vomiting, unspecified Presentation: 03/01 10:39 Chief complaint: Patient states: N/V 1 week. Pt reports going to [place] this week - ld1 gallstones and anemic. Pt unable to keep food/water down, constant vomiting with epigastric pain. Coronavirus screen: At this time, the client does not indicate any symptoms associated with coronavirus-19. Ebola Screen: No symptoms or risks identified at this time. Initial Sepsis Screen: Does the patient meet any 2 criteria? No. Patient's initial sepsis screen is negative. Does the patient have a suspected source of infection? No. Patient's initial sepsis screen is negative. Risk Assessment: Do you want to hurt yourself or someone else? Patient reports no desire to harm self or others. Onset of symptoms was March 01, 2023 at 10:41. 10:39 Method Of Arrival: Ambulatory ld1 10:39 Acuity: ALIN 3 ld1 Triage Assessment: 10:39 General: Appears in no apparent distress. uncomfortable, Behavior is cooperative, ld1 appropriate for age, anxious. Pain: Complains of pain in epigastric area Pain does not radiate. Pain currently is 7 out of 10 on a pain scale. Quality of pain is described as throbbing. EENT: No signs and/or symptoms were reported regarding the EENT system. Neuro: Level of Consciousness is awake, alert, obeys commands, Oriented to person, place, time, situation. Cardiovascular: Capillary refill < 3 seconds Patient's skin is warm and dry. Respiratory: Airway is patent Respiratory effort is even, unlabored. GI: Abdomen is round non-distended, Reports upper abdominal pain, nausea, vomiting. : No signs and/or symptoms were reported regarding the genitourinary system. Derm: No signs and/or symptoms reported regarding the dermatologic system. Musculoskeletal: No signs and/or symptoms reported regarding the musculoskeletal system. 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 - Social history:: Smoking status: Patient denies any tobacco usage or history of. Patient/guardian denies using alcohol. Screenin:05 [facility] ED Fall Risk Assessment (Adult) History of falling in the last 3 months, cp4 including since admission No falls in past 3 months (0 pts) Confusion or Disorientation No (0 pts) Intoxicated or Sedated No (0 pts) Impaired Gait No (0 pts) Mobility Assist Device Used No (0 pt) Altered Elimination No (0 pt) Score/Fall Risk Level 0 - 2 = Low Risk Oriented to surroundings, Maintained a safe environment, Educated pt \T\ family on fall prevention, incl call for assistance when getting out of bed, Assessed \T\ reinforced patient's understanding of fall precautions, Provided non-skid footwear, Hourly rounding (assess needs \T\ fall precautionary measures) done. Abuse screen: Denies threats or abuse. Nutritional screening: No deficits noted. Tuberculosis screening: No symptoms or risk factors identified. Assessment: 16:48 Reassessment: 2nd floor would not take report. States they will call back when rooms cp4 are assigned. GI: Abdomen is round non-distended. 17:40 Reassessment: Attempted to give report to Hailey. States she could not take report at 4 this time due to recent admission. Informed her I would be bringing patient up for bedside report. Vital Signs: 10:39 BP 158 / 92; Pulse 77; Resp 18; Temp 97.6(TE); Pulse Ox 97% on R/A; Weight 63.5 kg; ld1 Height 5 ft. 0 in. ; Pain 7/10; 11:00 BP 151 / 58; Pulse 62; Resp 18; Pulse Ox 99% ; cp4 12:00 BP 146 / 62; Pulse 57; Resp 18; Pulse Ox 99% ; cp4 13:00 BP 162 / 94; Pulse 76; Resp 18; Pulse Ox 99% ; cp4 14:00 BP 156 / 92; Pulse 73; Resp 18; Pulse Ox 99% ; cp4 15:00 BP 152 / 94; Pulse 74; Resp 18; Pulse Ox 100% ; cp4 16:00 BP 172 / 93; Pulse 74; Resp 18; Pulse Ox 100% ; cp4 17:00 BP 168 / 92; Pulse 73; Resp 18; Pulse Ox 100% ; cp4 10:39 Body Mass Index 27.34 (63.50 kg, 152.4 cm) ld1 10:39 Pain Scale: Adult ld1 ED Course: 10:26 Patient arrived in ED. mr 10:27 Adriano Agee DO is Private Physician. mr 10:27 Gail Fischer [facility]-C [facility]. sb4 10:27 Tai Del Toro MD is Attending Physician. sb4 10:39 Arm band placed on right wrist. ld1 10:41 Triage completed. ld1 11:15 Abdomen Limited US In Process Unspecified. EDMS 11:51 Ada Brizuela is Primary Nurse. cp4 11:53 Initial lab(s) drawn, by pa, sent to lab. Inserted saline lock: 22 gauge in right ap3 antecubital area, using aseptic technique. Blood collected. 11:53 CBC with Diff Sent. ap3 11:53 CMP Sent. ap3 11:53 Lipase Sent. ap3 12:33 Abdomen In Process Unspecified. EDMS 13:04 Sally Louis MD is Hospitalizing Provider. sb4 14:19 Urinalysis w/ reflexes Sent. cp4 14:19 Test, Urine Sent. cp4 14:23 Renal Ultrasound-Complete In Process Unspecified. EDMS 18:05 Placed in gown. Bed in low position. Call light in reach. Side rails up X2. Provided cp4 Education on: admission. 18:05 No provider procedures requiring assistance completed. Patient admitted, IV remains in cp4 place. Administered Medications: 12:02 Drug: NS 0.9% IV 1000 ml IV at 1 bolus Per protocol; 1000 mL bolus Route: IV; Rate: 1 cp4 bolus; Site: right antecubital; 13:25 Follow up: Response: No adverse reaction; IV Status: Completed infusion cp4 12:02 Drug: Ondansetron IVP 4 mg IVP once; over 2 minutes Route: IVP; Site: right antecubital;cp4 12:36 Follow up: Response: No adverse reaction cp4 12:02 Drug: morphine IVP or IV 4 mg IVP once over 4 mins Route: IVP; Infused Over: 4 mins; cp4 Site: right antecubital; 12:36 Follow up: Response: No adverse reaction cp4 13:04 Drug: NS 0.9% IV 1000 ml IV at 1 bolus Per protocol; 1000 mL bolus Route: IV; Rate: 1 cp4 bolus; Site: right antecubital; 14:45 Follow up: Response: No adverse reaction; IV Status: Completed infusion cp4 13:25 Drug: metoCLOPramide IVP 10 mg IVP once; over 1 to 2 minutes Route: IVP; Site: right cp4 antecubital; 13:26 Follow up: Response: No adverse reaction cp4 13:25 Drug: cefOXitin IVPB 1 grams IVPB once over 30 mins; (mix in 50 mL NS) Route: IVPB; cp4 Infused Over: 30 mins; Site: right antecubital; 15:45 Follow up: Response: No adverse reaction; IV Status: Completed infusion cp4 Medication: 18:05 VIS not applicable for this client. cp4 Outcome: 13:05 Decision to Hospitalize by Provider. sb4 18:05 Admitted to Med/surg accompanied by nurse, via stretcher, with chart, [facility] Bedside report to Karrie 18:07 Condition: stable cp4 18:07 Instructed on the need for admit, Demonstrated understanding of instructions, 18:10 Patient left the ED. cp4 Signatures: Dispatcher [employer] EDVT MancusoHeather bagley, Reg Reg mr Brenna Parks RN RN ap3 Yohana Chaney RN RN ld1 Gail Fischer PA-C PADyllan sb4 Ada Brizuela cp4
[2023-03-01] MEDS ORDERED: CEFOXITIN SODIUM 1 GM/VIAL ONE (13:16)
[2023-03-01] MEDS ORDERED: METOCLOPRAMIDE 10 MG/2mL INJ ONE (13:16)
[2023-03-01] MEDS ORDERED: NA CHLORIDE 0.9% 50 ML ONE (13:16)
[2023-03-01 14:25] LABS: Specific Gravity 1.012 (1.005-1.030); Urine Bacteria <20 /HPF (<20); Urine Bilirubin NEGATIVE (Negative); Urine Blood 2+ (Negative); Urine Clarity Extremely Turbid (Clear); Urine Color Light-Yellow (Yellow); Urine Glucose 4+ (Over) (Negative); Urine Mucus Slight /HPF (None Seen); Urine Protein 3+ (Negative); Urine RBC <5 /HPF (None Seen); Urine Urobilinogen Normal (Normal)
[2023-03-01] MEDS ORDERED: ACETAMINOPHEN 500 MG TAB PO PRN (14:25)
--- NOTE | 2023-03-01 14:35 | P.HP ---
Certification for Inpatient Patient admitted to: Inpatient With expected LOS: <2 Midnights Patient will require the following post-hospital care: None Practitioner: I am a practitioner with admitting privileges, knowledge of patient current condition, hospital course, and medical plan of care. Services: Services provided to patient in accordance with Admission requirements found in Title 42 Section 412.3 of the Code of Federal Regulations <Linsey Costa - Last Filed: 03/01/23 14:30> Patient History Date of Service: 03/01/23 Reason for admission: Cholelithiasis History of Present Illness: 48-year-old female with a past medical history of nlb-nqepgal-ltzvoyfzo diabetes mellitus, GERD, hyperlipidemia, hypertension, hypothyroidism, presents to the emergency room with nausea vomiting. She reports associated epigastric pain started 1 week ago. Symptoms worse with p.o. intake. No reported fever, shortness of breath, chest pain, edema reports history of gallstones, with CT, she reports symptoms progressively worse over the last week. Plan to admit for cholelithiasis, abdominal pain with nausea vomiting., Acute kidney injury with surgery to consult, laboratory evaluation acute kidney injury BUN 37 creatinine 2.89 elevated blood glucose 291 elevated platelets 568, CT of the abdomen pelvis FINDINGS: The lower lung ge are clear.Cholelithiasis. IMPRESSION: Punctate nephrolithiasis bilaterally without hydronephrosis. Cholelithiasis. 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 - Family History Sister -: Diabetes Mother -: Diabetes - Social History Alcohol use: No CD- Drugs: No Caffeine use: Yes <Linsey Costa - Last Filed: 03/01/23 14:30> Date of Service: 03/01/23 <Sally Lousi - Last Filed: 03/01/23 17:09> Allergies hydrocodone Allergy (Verified 04/09/22 22:04) Nausea/Vomiting Home Medications: Aspirin Tab [Cuco Aspirin*] 325 mg PO DAILY 04/10/22 Glipizide [Glucotrol Xl] 10 mg PO DAILY 04/10/22 Amoxicillin/Potassium Clav [Amox-Clav 875-125 mg Tablet] 1 each PO BID 03/01/23 Atorvastatin Calcium [Lipitor] 10 mg PO BEDTIME 03/01/23 Duloxetine HCl 20 mg PO DAILY 03/01/23 Levothyroxine Sodium 1 tab PO DAILY 03/01/23 Olmesartan Medoxomil 5 mg PO DAILY 03/01/23 Sitagliptin Phosphate [Januvia] 50 mg PO DAILY 03/01/23 carvediloL [Carvedilol] 1 tab PO BID 03/01/23 Review of Systems per HPI <Linsey Costa - Last Filed: 03/01/23 14:30> Physical Examination - Studies Laboratory Data (last 24 hrs) 03/01/23 03/01/23 11:48 11:48 WBC 10.20 Hgb 11.3 L Hct 32.4 L Plt Count 568 H Sodium 135 L Potassium 5.8 H BUN 37 H Creatinine 2.89 H Glucose 291 H Total Bilirubin 0.3 AST 20 ALT 26 Alkaline Phosphatase 110 Lipase 40 <Linsey Costa - Last Filed: 03/01/23 14:30> - Studies Laboratory Data (last 24 hrs) 03/01/23 03/01/23 11:48 11:48 WBC 10.20 Hgb 11.3 L Hct 32.4 L Plt Count 568 H Sodium 135 L Potassium 5.8 H BUN 37 H Creatinine 2.89 H Glucose 291 H Total Bilirubin 0.3 AST 20 ALT 26 Alkaline Phosphatase 110 Lipase 40 <Sally Louis - Last Filed: 03/01/23 17:09> Assessment and Plan - Plan Assessment and plan Abdominal pain with nausea vomiting Cholelithiasis Surgery consult. Analgesics, antiemetics IV fluids as needed antibiotics empiric Trend WBCs CT of the abdomen pelvis FINDINGS: The lower lung ge are clear.Cholelit hiasis. IMPRESSION: Punctate nephrolithiasis bilaterally without hydronephrosis. Nephrolithiasis lithiasis bilaterally without hydronephrosis IV fluid Acute kidney injury likely prerenal dehydration nausea vomiting trend kidney function laboratory evaluation acute kidney injury BUN 37 creatinine 2.89 Thrombocytosis Heparin, platelets 568 [id number] diabetes mellitus, Accu-Cheks, sliding scale insulin, A1c in a.m. elevated blood glucose 291 GERD hyperlipidemia hypertension hypothyroidism Full code Diet clear liquids DVT SCDs Discharge Plan: Home - Advance Directives Does patient have a Living Will: No Does patient have a Durable POA for Healthcare: No - Code Status/Comfort Care Code Status: Full Code Critical Care: No Time Spent Managing Pts Care (In Minutes): 55 <Linsey Costa - Last Filed: 03/01/23 14:30> - Plan Pt seen and examined. I agree with note by the FUEL YARD OPERATOR. Pt is a 48yo female with past medical history of xis-kqqnvse-cmdpwofev diabetes mellitus, GERD, hyperlipidemia, hypertension, and hypothyroidism who presents with abd pain, nausea and vomiting. The symptoms started 1 week ago and progressively worsened. On admission, CT abd shows acute cholelithiasis. ER physician consulted Gen surgeon. He plans to take pt to the OR tomorrow. Lab studies show WBC 10.2, Hgb 11.3, K 5.8, Cr 2.89, glucose 291. At bedside. pt is in nAD. A/P: Abdominal pain: Likely due to cholelithiasis. Gen surgeon will take pt to the OR tomorrow. Hyperkalemia: K is 5.8. Will replete and monitor. Acute kidney injury: Will continue IVF, avoid nephrotoxins and monitor renal function. Nephrolithiasis: CT abd shows punctate nephrolithiasis bilaterally without hydronephrosis. Will continue IVF. Thrombocytosis; Plt is 568. Will continue heparin Htn: Will continue home me DM II: Continue accuchek, SSI and ADA diet. HLD: statin Hypothyroidism: Synthroid. Code: full <Sally Louis - Last Filed: 03/01/23 17:09>
--- NOTE | 2023-03-01 14:51 | RAD REPORT ---
EXAM DESCRIPTION: US - Renal Ultrasound-Complete - 03/01/2023 2:23 pm CLINICAL HISTORY: abdominal pain COMPARISON: Abdomen Pelvis Wo Contrast dated 03/01/2023 TECHNIQUE: Sonographic grayscale and color flow images of the kidneys and bladder were obtained. FINDINGS: Both kidneys are normal in size, shape, and echotexture. The right kidney measures 9.2 cm in length. Incidentally noted upper to midpole 1.2 cm anechoic cyst. No hydronephrosis, focal mass, or echogenic calculi. The left kidney measures 9.4 cm in length. Mildly prominent left renal pelvis, may reflect a pelviect asis or early hydronephrosis. No focal mass, or echogenic calculi. Trace left perinephric fluid. The urinary bladder is without gross abnormality seen. . Bilateral ureteral jets are demonstrated. IMPRESSION: Mildly prominent left renal pelvis, may relate to pelviectasis or early hydronephrosis. Incidentally noted anechoic right upper to mid pole renal cyst, benign in appearance.
[2023-03-01] MEDS: NA CHLORIDE 0.9% 1,000 ML IV SCH ×2 (15:00→23:06)
--- NOTE | 2023-03-01 15:38 | P.CNS ---
Date of Consult: 03/01/23 PC: I was asked to see this 48-year-old patient in regards to right upper quadrant abdominal pain for diagnosis and treatment. HPC: Patient presents emergency room with severe right upper quadrant abdominal pain radiating into her back. It is says it feels like she has a foot under her rib. Has known that she has had gallstones for approximately 1 year. Recently went to another facility but was sent home with pain medicine. Presents now with another acute attack. PSHx: Previous tubal ligation. [Was scheduled for a bladder suspension today but obviously this attack came on when she came to our facility for treatment.] PMHx: Negative Social Hx: He is not allergic to hydrocodone. Sys R: No cough, wheeze, shortness of breath. No chest pain or palpitations. Has some frequency and incontinence, but is under the care of of urologist for this issue. O/E: Awake alert vital signs are stable HEENT: Not jaundiced Chest: Air entry equal bilaterally Abd: Tender with guarding in the right upper quadrant [place]: Intact Data: Elevated BUN and creatinine, findings consistent with dehydration. Has documented cholelithiasis with cholecystitis on CT scan and ultrasound. Impression: Acute on chronic cholecystitis with cholelithiasis Plan: The patient is being admitted, we will correct her fluid and electrolyte issues. She will be taken to the operating room tomorrow for laparoscopic cholecystectomy with a cholangiogram. The risks of this procedure have been discussed. The possibility of bleeding, infection, injury to bile ducts blood vessels and intestines has been described. The possible need for an open and or further surgeries and procedures was discussed. She understands and wants us to proceed.
[2023-03-01 16:19] VITALS: BMI 28.3
[2023-03-01] MEDS ORDERED: PIPER TAZO 3.375 GM in NA CHLORIDE 0.9% 100 ML IV SCH (17:00)
[2023-03-01] MEDS ORDERED: INFLUENZA VACCINE (for 6+ mo) 0.5 ML DOSE IMVAC ONE (17:00)
[2023-03-01] MEDS ORDERED: SODIUM ZIRCONIUM CYCLOSILICATE 10 GM/PKT PO ONE ×2 (17:00→19:00)
[2023-03-01] MEDS: MORPHINE 4 MG/ML SYR IV PRN (18:15)
[2023-03-01] MEDS: ONDANSETRON 4 MG/2 ML VIAL IV PRN (18:15)
--- NOTE | 2023-03-01 18:46 | P.PN ---
Subjective Date of Service: 03/03/23 Chief Complaint: Cholelithiasis pain controlled by prn meds, reports mild nausea, <Linsey Costa - Last Filed: 03/03/23 17:47> Date of Service: 03/08/23 <Sally Louis Mary Jo - Last Filed: 03/08/23 21:49> Review of Systems per HPI <Linsey Costa - Last Filed: 03/03/23 17:47> Physical Examination - Vital Signs Temperature: 98.1 F Blood Pressure: 172/93 Pulse: 74 Respirations: 18 Pulse Ox (%): 99 - Physical Exam General: Alert, In no apparent distress, Oriented x3 HEENT: Atraumatic, Normocephalic Neck: Supple, 2+ carotid pulse no bruit Respiratory: Clear to auscultation bilaterally, Normal air movement Cardiovascular: Normal pulses, Regular rate/rhythm Capillary refill: <2 Seconds Gastrointestinal: Tenderness (Epigastric, lower abdominal tenderness) Musculoskeletal: No clubbing, No swelling Neurological: Normal speech, Normal strength at 5/5 x4 extr - Studies Laboratory Data (last 24 hrs) 03/01/23 03/01/23 11:48 11:48 WBC 10.20 Hgb 11.3 L Hct 32.4 L Plt Count 568 H Sodium 135 L Potassium 5.8 H BUN 37 H Creatinine 2.89 H Glucose 291 H Total Bilirubin 0.3 AST 20 ALT 26 Alkaline Phosphatase 110 Lipase 40 <Linsey Costa - Last Filed: 03/03/23 17:47> Assessment And Plan - Plan Assessment and plan Abdominal pain with nausea vomiting Cholelithiasis Surgery consult. Analgesics, antiemetics IV fluids as needed antibiotics empiric Trend WBCs CT of the abdomen pelvis FINDINGS: The lower lung ge are clear.Cholelithiasis. IMPRESSION: Punctate nephrolithiasis bilaterally without hydronephrosis. Nephrolithiasis lithiasis bilaterally without hydronephrosis IV fluid Nephrology consult, Renal ultrasound IMPRESSION: Mildly prominent left renal pelvis, may relate to pelviectasis or early hydronephrosis. Incidentally noted anechoic right upper to mid pole renal cyst, benign in appearance. Acute kidney injury likely prerenal dehydration nausea vomiting trend kidney function laboratory evaluation acute kidney injury BUN 37 creatinine 2.89 Nephrology consulted, IV fluids Thrombocytosis Heparin, platelets 568 [id number] diabetes mellitus, Accu-Cheks, sliding scale insulin, A1c in a.m. elevated blood glucose 291 GERD hyperlipidemia hypertension hypothyroidism Full code Diet clear liquids DVT SCDs Discharge Plan: Home - Code Status/Comfort Care Code Status: Full Code Critical Care: No Time Spent Managing PTS Care (In Minutes): 35 <Linsey Costa - Last Filed: 03/03/23 17:47> - Plan Pt seen and examined. I agree with the note by the RN BSN. Continue IVF, abx and prn antiemetics. <Sally Louis - Last Filed: 03/08/23 21:49>
[2023-03-02] MEDS: MORPHINE 4 MG/ML SYR IV PRN ×3 (00:36→16:03)
[2023-03-02] MEDS: ONDANSETRON 4 MG/2 ML VIAL IV PRN ×3 (00:36→19:05)
--- NOTE | 2023-03-02 08:05 | P.CNS ---
Date of Consult: 03/02/23 Reason for Consult: SILKE/ CKD Requesting Physician: Hugh Gardner Chief Complaint: Cholelithiasis History of Present Illness: 48-year-old female with a past medical history of owt-ctuerqi-hvxyxxmic diabetes mellitus, GERD, hyperlipidemia, hypertension, hypothyroidism, presents to the emergency room with nausea vomiting. She reports associated epigastric pain started 1 week ago. Symptoms worse with p.o. intake. No reported fever, shortness of breath, chest pain, edema reports history of gallstones, with CT, she reports symptoms progressively worse over the last week. Plan to admit for cholelithiasis, abdominal pain with nausea vomiting., Acute kidney injury with surgery to consult, laboratory evaluation acute kidney injury BUN 37 creatinine 2.89 elevated blood glucose 291 elevated platelets 568, CT of the abdomen pelvis FINDINGS: The lower lung ge are clear.Cholelithiasis. IMPRESSION: Punctate nephrolithiasis bilaterally without hydronephrosis. Cholelithiasis. 10:58 This 48 yrs old Female presents to ER via Ambulatory with complaints of sb4 Nausea/Vomiting. 10:58 The patient presents to the emergency department with nausea, vomiting, abdominal pain, sb4 of the epigastric area and right upper quadrant. Onset: The symptoms/episode began/occurred 1 week(s) ago. Possible causes: gallstones. The symptoms are aggravated by food , The symptoms are alleviated by nothing. Associated signs and symptoms: Pertinent positives: anorexia, nausea, vomiting. The patient has been recently seen by a physician: in the hospital, with similar presenting complaints, and apparently given a diagnosis of gallstones, lab tests were done, CT scan was done, was given a prescription for an antiemetic, and was referred to a specialist, but the patient's symptoms have worsened, but the patient's symptoms have persisted. Allergies No Known Allergies Allergy (Verified 03/02/23 11:29) Home medications list reviewed: Yes Home Medications: Aspirin Tab [Cuco Aspirin*] 325 mg PO DAILY 04/10/22 Glipizide [Glucotrol Xl] 10 mg PO DAILY 04/10/22 Amoxicillin/Potassium Clav [Amox-Clav 875-125 mg Tablet] 1 each PO BID 03/01/23 Atorvastatin Calcium [Lipitor] 10 mg PO BEDTIME 03/01/23 Duloxetine HCl 20 mg PO DAILY 03/01/23 Levothyroxine Sodium 1 tab PO DAILY 03/01/23 Olmesartan Medoxomil 5 mg PO DAILY 03/01/23 Sitagliptin Phosphate [Januvia] 50 mg PO DAILY 03/01/23 carvediloL [Carvedilol] 1 tab PO BID 03/01/23 - Past Medical/Surgical History Diabetic: Yes -: DM II -: HLD -: CKD III with Proteinuria (Dr. Kennedy/ Dr. 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 - Family History Sister Medical History: Diabetes Mother Medical History: Diabetes - Social History Smoking Status: Current some day smoker Alcohol use: No CD- Drugs: No Caffeine use: Yes Review of Systems 10-point ROS is otherwise unremarkable General: Weakness, Malaise Gastrointestinal: Nausea, Abdominal Pain Physical Examination Temp Pulse Resp BP Pulse Ox 98.5 F 82 16 145/80 H 100 03/02/23 04:00 03/02/23 04:00 03/02/23 04:00 03/02/23 05:09 03/02/23 04:00 General: Oriented x3, Cooperative, Mild distress HEENT: Atraumatic Neck: Supple Respiratory: Normal air movement Cardiovascular: No edema, Regular rate/rhythm Gastrointestinal: Non-distended, Tenderness, Guarding Musculoskeletal: No clubbing, No contractures Integumentary: No rashes, No cyanosis Neurological: Normal speech Laboratory Data (last 24 hrs) 03/01/23 03/01/23 11:48 11:48 WBC 10.20 Hgb 11.3 L Hct 32.4 L Plt Count 568 H Sodium 135 L Potassium 5.8 H BUN 37 H Creatinine 2.89 H Glucose 291 H Total Bilirubin 0.3 AST 20 ALT 26 Alkaline Phosphatase 110 Lipase 40 Imagings Data: EXAM DESCRIPTION: US - Renal Ultrasound-Complete - 03/01/2023 2:23 pm CLINICAL HISTORY: abdominal pain COMPARISON: Abdomen Pelvis Wo Contrast dated 03/01/2023 TECHNIQUE: Sonographic grayscale and color flow images of the kidneys and bladder were obtained. FINDINGS: Both kidneys are normal in size, shape, and echotexture. The right kidney measures 9.2 cm in length. Incidentally noted upper to midpole 1.2 cm anechoic cyst. No hydronephrosis, focal mass, or echogenic calculi. The left kidney measures 9.4 cm in length. Mildly prominent left renal pelvis, may reflect a pelviectasis or early hydronephrosis. No focal mass, or echogenic calculi. Trace left perinephric fluid. The urinary bladder is without gross abnormality seen. . Bilateral ureteral jets are demonstrated. IMPRESSION: Mildly prominent left renal pelvis, may relate to pelviectasis or early hydronephrosis. Incidentally noted anechoic right upper to mid pole renal cyst, benign in appearance. EXAM DESCRIPTION: CT - Abdomen Pelvis Wo Contrast - 03/01/2023 12:33 pm CLINICAL HISTORY: Abdominal pain. ABD PAIN COMPARISON: Abdomen Pelvis Wo Contrast dated 04/09/2022; Abdomen Exam Limited dated 03/01/2023 TECHNIQUE: CT imaging of the abdomen and pelvis was performed without contrast. Solid organ, bowel and vascular assessment is limited due to lack of IV and oral contrast. All CT scans are performed using dose optimization technique as appropriate and may include automated exposure control or mA/KV adjustment according to patient size. FINDINGS: The lower lung ge are clear.Cholelithiasis. The liver, spleen, pancreas, adrenal glands are within normal limits for a limited non-contrast examination.Punctate caliceal stones are present in both kidneys without hydronephrosis. No bowel obstruction, free air, free fluid or abscess. The appendix is normal. The osseous structures are within normal limits. IMPRESSION: Punctate nephrolithiasis bilaterally without hydronephrosis. Cholelithiasis. A limited non-contrast examination was performed as detailed. EXAM DESCRIPTION: US - Abdomen Exam Limited - 03/01/2023 11:13 am CLINICAL HISTORY: ABD PAIN COMPARISON: Renal Ultrasound-Complete dated 04/09/2022 FINDINGS: The gallbladder demonstrates small gallstones in the gallbladder. No pericholecystic fluid or gallbladder wall thickening. The common bile duct is normal measuring 2 mm. The liver demonstrates no findings of intrahepatic biliary dilatation. IMPRESSION: Cholelithiasis. Conclusions/Impression: Stage II SILKE likely due to hypovolemia CKD III with Proteinuria -No NSAIDs -Continue IVF Hyponatremia -Continue IVF Hyperkalemia -Agree with Lokelma -Continue IVF Nephrolithiasis, non-obstructing -Continue IVF HTN with CKD -Restart Coreg DM II with CKD -RISS Anemia in chronic illness -Monitor H&H Cigarette Smoker -Recommend cessation -Nictotine TD prn Case reviewed with hospitalist team Hospitalist and ER notes reviewed Thank you kindly for the consultation
[2023-03-02 08:18] LABS: Hematocrit 26.2 % (36.0-45.0); Lymphocytes % 24.4 % (15.3-44.8); MCV 92.2 fL (80-100); MPV 6.6 fL (7.6-11.3); Platelets 464 thou/uL (152-406); RBC Red Blood Cell Count 2.84 M/uL (3.86-4.86)
[2023-03-02 08:28] LABS: Magnesium 1.5 mg/dL (1.6-2.4); Potassium 4.7 mEq/L (3.5-5.1)
[2023-03-02] MEDS ORDERED: carvediloL 12.5 MG TAB PO SCH (09:00)
[2023-03-02] MEDS ORDERED: CEFTRIAXONE 1,000 MG in NA CHLORIDE 0.9% 50 ML IVPB SCH (09:00)
--- NOTE | 2023-03-02 09:03 | P.PN ---
Subjective Date of Service: 03/02/23 Chief Complaint: Cholelithiasis reports generalized abdominal pain, nausea, npo - Physical Exam General: Alert, In no apparent distress, Oriented x3 HEENT: Atraumatic, Normocephalic Neck: Supple, 2+ carotid pulse no bruit Respiratory: Clear to auscultation bilaterally, Normal air movement Cardiovascular: Normal pulses, Regular rate/rhythm Capillary refill: <2 Seconds Gastrointestinal: RUQ Tenderness (Epigastric, lower abdominal tenderness) Musculoskeletal: No clubbing, No swelling Neurological: Normal speech, Normal strength at 5/5 x4 extr Review of Systems per HPI Physical Examination - Vital Signs Temperature: 98.5 F Blood Pressure: 145/80 Pulse: 82 Respirations: 16 Pulse Ox (%): 100 - Studies Laboratory Data (last 24 hrs) 03/01/23 03/01/23 11:48 11:48 WBC 10.20 Hgb 11.3 L Hct 32.4 L Plt Count 568 H Sodium 135 L Potassium 5.8 H BUN 37 H Creatinine 2.89 H Glucose 291 H Total Bilirubin 0.3 AST 20 ALT 26 Alkaline Phosphatase 110 Lipase 40 Assessment And Plan - Plan Assessment and plan Abdominal pain with nausea vomiting Cholelithiasis Surgery consult. Dr. Durbin analgesics, antiemetics IV fluids as needed antibiotics empiric Trend WBCs CT of the abdomen pelvis FINDINGS: The lower lung ge are clear.Cholelithiasis. IMPRESSION: Punctate nephrolithiasis bilaterally without hydronephrosis. 03/02 Plan for laparoscopic cholecystectomy with a cholangiogram. Nephrolithiasis lithiasis bilaterally without hydronephrosis IV fluid Nephrology consult, Renal ultrasound IMPRESSION: Mildly prominent left renal pelvis, may relate to pelviectasis or early hydronephrosis. Incidentally noted anechoic right upper to mid pole renal cyst, benign in appearance. Acute kidney injury likely prerenal dehydration nausea vomiting trend kidney function laboratory evaluation acute kidney injury BUN 37 creatinine 2.89 ->27-2.52 Nephrology consulted, IV fluids renal US IMPRESSION: Mildly prominent left renal pelvis, may relate to pelviectasis or early hydronephrosis.Incidentally noted anechoic right upper to mid pole renal cyst, benign in appearance. Thrombocytosis Heparin, platelets 568->464 Microcytic anemia hemoglobin 11.3-9.2 Trend H&H transfuse hemoglobin less than 7 [id number] diabetes mellitus, Accu-Cheks, sliding scale insulin, A1c in a.m. elevated blood glucose 291 GERD hyperlipidemia hypertension hypothyroidism Resume appropriate home meds Full code Diet clear liquids advance as tolerated DVT SCDs Discharge Plan: Home - Code Status/Comfort Care Code Status: Full Code Critical Care: No Time Spent Managing PTS Care (In Minutes): 35
[2023-03-02] MEDS ORDERED: MIDAZOLAM HCL 2 MG/2 ML INJ ONE (12:13)
[2023-03-02] MEDS ORDERED: FENTANYL CITR 100 MCG/2 ML ONE (12:13)
[2023-03-02] MEDS ORDERED: ROCURONIUM 50 MG/5 ML VIAL IV ONE (12:13)
[2023-03-02] MEDS ORDERED: ONDANSETRON 4 MG/2 ML VIAL ONE (12:14)
[2023-03-02] MEDS ORDERED: dexAMETHasone 10 MG/ML VIAL ONE (12:14)
[2023-03-02] MEDS ORDERED: KETOROLAC 30 MG/ML INJ ONE (12:14)
[2023-03-02] MEDS ORDERED: SUCCINYLCHOLINE 20 MG/ML (10 ML) IV ONE (12:31)
[2023-03-02] MEDS ORDERED: SUGAMMADEX SODIUM 200 MG/2 ML VIAL IV ONE (13:33)
--- NOTE | 2023-03-02 13:50 | P.OP ---
Preoperative diagnosis: Acute on chronic cholecystitis with cholelithiasis, biliary colic Postoperative diagnosis: The same Primary procedure: Laparoscopic cholecystectomy Secondary procedure: Cholangiogram fluoroscopy Anesthesia: General Estimated blood loss: Less than 10 cc Specimen: 1 gallbladder sent for histopathology Operative Technique: The patient brought the operating room in supine on the table. After the induction of adequate general endotracheal anesthesia, the area of the abdomen was prepped with a DuraPrep solution, and she was draped in the usual aseptic manner. The subumbilical area, where the patient had a previous tubal ligation, was injected with 1% lidocaine. A skin incision was made. This brought down through the skin and subcutaneous tissue. The Visiport was used to enter the peritoneal cavity and created pneumoperitoneum to approximately 12 mmHg. Under direct vision a 5 mm trocar was placed in the upper midline, and 2 other 5 mm trocars on the right lateral side of the abdomen. With the patient placed in reverse Trendelenburg and the table tilted to the left we were able to visualize the right upper quadrant. We could see a chronically inflamed gallbladder with a mild acute component. There was marked adhesions to the serosal surface. A grasper was placed on the fundus of the gallbladder. Applying gentle traction we were able to take down these adhesions to the serosal surface of the gallbladder. A grasper was now able to be placed on Finch's pouch. Applying lateral traction we were able to dissect out and expose both the cystic duct and artery. The cystic duct was noted markedly dilated in its proximal portion. A clip was placed between the gallbladder and the cystic duct. An opening was now made into the cystic duct. At this point we had a large amount of bile coming from the cystic duct. The Cholangiocath catheter was now gently inserted into the was seen to be generous portion of the cystic duct. The balloon was inflated and we were able to dislodge a large stone that had been impacted in the cystic duct itself. The duct not having been cleared, the catheter was easily passed into the the cystic duct. The balloon was inflated. We obtained a cholangiogram which demonstrated good flow of contrast into the duodenum, no filling defects were noted. The catheter was now removed. 2 clips were placed on the cystic duct. Because of his general size due to being dilated by stones a tie of That was also placed using the limits. The cystic duct was now fully transected. The artery was identified clipped and divided in the usual manner. The gallbladder was then dissected free of the liver bed, placed into an Endo Catch, and brought out through the umbilical trocar site. At this point the was inspected to ensure adequate hemostasis. Irrigating fluid was aspirated from the right upper quadrant. The liver bed was checked to ensure it was dry. At this point the Endo Close was used to approximate the umbilical fascial defect. At this point the pneumoperitoneum was collapsed, the sutures tied, and the trocars removed. Satartia were then applied to the skin. At the end of the procedure the patient was in a stable condition was sent to the recovery room. Needle sponge instrument count were correct. No drains were placed. Complications: None Transferred to: Recovery Room Condition: Good
[2023-03-02] MEDS: HYDROMORPHONE HCL 1 MG/ML INJ ONE ×2 (13:56→14:08)
[2023-03-02] MEDS ORDERED: HYDROCODONE/APAP 7.5/325 MG TAB PO PRN (14:04)
[2023-03-02] MEDS: LABETALOL 20 MG/4ML SYRINGE IV ONE ×2 (14:05→14:26)
[2023-03-02] MEDS: FENTANYL CITR 100 MCG/2 ML ONE ×4 (14:14→14:44)
--- NOTE | 2023-03-02 15:25 | RAD REPORT ---
EXAM DESCRIPTION: RAD - Cholangiogram Oper-Xray Or - 03/02/2023 3:15 pm CLINICAL HISTORY: LAPCHOLE COMPARISON: Renal Ultrasound-Complete dated 03/01/2023 FINDINGS: Cystic duct injection was performed by operating surgeon. Common bile duct appears normal caliber. No retained common duct stone. Total fluoro time: 19.8 seconds
[2023-03-02] MEDS: NA CHLORIDE 0.9% 1,000 ML IV SCH ×2 (18:01→20:10)
[2023-03-02] MEDS: Ringers Lactate 1,000 ML IV SCH (21:06)
[2023-03-02] MEDS: LABETALOL 20 MG/4ML SYRINGE IV PRN (21:07)
[2023-03-02 23:32] VITALS: O2SAT 100
[2023-03-03] MEDS: ONDANSETRON 4 MG/2 ML VIAL IV PRN (01:24)
[2023-03-03] MEDS: LABETALOL 20 MG/4ML SYRINGE IV PRN (05:18)
[2023-03-03] MEDS: Ringers Lactate 1,000 ML IV SCH (05:21)
[2023-03-03 05:31] LABS: Absolute Lymphocytes (CBC) 2.1 K/uL (0.7-4.9); Lymphocytes % 21.4 % (15.3-44.8); MPV 7.1 fL (7.6-11.3); Platelets 439 thou/uL (152-406); RBC Red Blood Cell Count 2.83 M/uL (3.86-4.86)
[2023-03-03] MEDS ORDERED: PROMETHAZINE INJ 25 MG/ML AMP IV PRN (05:51)
[2023-03-03 05:55] LABS: Magnesium 1.4 mg/dL (1.6-2.4); Potassium 4.4 mEq/L (3.5-5.1)
--- NOTE | 2023-03-03 07:42 | P.DS ---
Admission Date: 03/01/23 Discharge Date: 03/03/23 Disposition: ROUTINE DISCHARGE Discharge Condition: FAIR Reason for Admission: Cholelithiasis Brief History of Present Illness: 48-year-old female with a past medical history of [id number] diabetes mellitus, GERD, hyperlipidemia, hypertension, hypothyroidism, presents to the emergency room with nausea vomiting. She reports associated epigastric pain started 1 week ago. Symptoms worse with p.o. intake. No reported fever, shortness of breath, chest pain, edema reports history of gallstones, with CT, she reports symptoms progressively worse over the last week. Plan to admit for cholelithiasis, abdominal pain with nausea vomiting., Acute kidney injury with surgery to consult, laboratory evaluation acute kidney injury BUN 37 creatinine 2.89 elevated blood glucose 291 elevated platelets 568, CT of the abdomen pelvis FINDINGS: The lower lung ge are clear.Cholelithiasis. IMPRESSION: Punctate nephrolithiasis bilaterally without hydronephrosis. Cholelithiasis. - Physical Exam General: Alert, In no apparent distress, Oriented x3 HEENT: Atraumatic, Normocephalic Neck: Supple, 2+ carotid pulse no bruit Respiratory: Clear to auscultation bilaterally, Normal air movement Cardiovascular: Normal pulses, Regular rate/rhythm Capillary refill: <2 Seconds Gastrointestinal: Positive bowel sounds,. Mild abdominal tenderness post laparoscopic cholecystectomy Musculoskeletal: No clubbing, No swelling Neurological: Normal speech, Normal strength at 5/5 x4 extr Hospital Course: 59-jstz-bnsqabe-old female patient presented with abdominal pain, nausea vomiting. Was noted to have cholelithiasis, acute kidney injury from dehydration. Was treated with laparoscopic cholecystectomy with Dr. Rodriguez. Condition improved with surgery, IV analgesics, IV fluids, antibiotics. Stable for discharge to home with follow-up appointment with surgeon and primary care physician. PROBLEM: Cholecystitis Acute kidney injury chronic kidney disease Diabetes type 2 Hypertension Hypothyroidism Follow-up with Dr. Rodriguez As needed analgesics prescribed by surgery Follow-up with nephrology CKD stage III Avoid nephrotoxic medications such as NSAIDs, Aleve, ibuprofen Continue home medicines as previously prescribed GOAL: Clear understanding of disease process INSTRUCTIONS: Physician Discharge Instructions: -DC IV and DC home -Follow-up with PCP in 1 to 2 weeks -Please call Dr. Gardner at [phone] if any questions regarding hospital stay -Please call nursing station at [phone] if any nursing or medication questions -Return to the emergency room if symptoms worsen Diet: ADA, low sodium Activity: Fall precautions DME: Date Ordered: Name of Company: [employer] Services Needed: None Date or Referral: IMMUNIZATION Influenza Vaccine Indicated: Influenza Vaccine Given: Date Given: Pneumonia Vaccine Indicated: Pneumonia Vaccine Given: Vital Signs/Physical Exam: Temp Pulse Resp BP Pulse Ox 97.8 F 85 18 150/80 H 100 03/03/23 04:00 03/03/23 05:18 03/03/23 04:00 03/03/23 06:45 03/03/23 04:00 Laboratory Data at Discharge: WBC 10.00 thou/uL (4.3-10.9) 03/03/23 04:36 Hgb 9.3 g/dL (12.0-15.0) L 03/03/23 04:36 Hct 26.0 % (36.0-45.0) L 03/03/23 04:36 Plt Count 439 thou/uL (152-406) H 03/03/23 04:36 Sodium 137 mEq/L (136-145) 03/03/23 04:36 Potassium 4.4 mEq/L (3.5-5.1) 03/03/23 04:36 BUN 22 mg/dL (7-18) H 03/03/23 04:36 Creatinine 2.52 mg/dL (0.55-1.02) H 03/03/23 04:36 Glucose 190 mg/dL (74-106) H 03/03/23 04:36 Magnesium 1.4 mg/dL (1.6-2.4) L 03/03/23 04:36 Total Bilirubin 0.3 mg/dL (0.2-1.0) 03/01/23 11:48 AST 20 U/L (15-37) 03/01/23 11:48 ALT 26 U/L (13-56) 03/01/23 11:48 Alkaline Phosphatase 110 U/L (45-117) 03/01/23 11:48 Lipase 40 U/L (13-75) 03/01/23 11:48 Home Medications: Aspirin Tab [Cuco Aspirin*] 325 mg PO DAILY 04/10/22 Glipizide [Glucotrol Xl] 10 mg PO DAILY 04/10/22 Atorvastatin Calcium [Lipitor*] 10 mg PO BEDTIME 03/01/23 Duloxetine HCl 20 mg PO DAILY 03/01/23 Levothyroxine Sodium 1 tab PO DAILY 03/01/23 Olmesartan Medoxomil 5 mg PO DAILY 03/01/23 Sitagliptin Phosphate [Januvia] 50 mg PO DAILY 03/01/23 carvediloL [Carvedilol] 1 tab PO BID 03/01/23 carvediloL [Coreg*] 12.5 mg PO BIDWM tab 03/03/23 Physician Discharge Instructions: 49-yzie-yrdrkvi-old female patient presented with abdominal pain, nausea vomiting. Was noted to have cholelithiasis, acute kidney injury from dehydration. Was treated with laparoscopic cholecystectomy with Dr. Rodriguez. Condition improved with surgery, IV analgesics, IV fluids, antibiotics. Stable for discharge to home with follow-up appointment with surgeon and primary care physician. PROBLEM: Cholecystitis Acute kidney injury chronic kidney disease Diabetes type 2 Hypertension Hypothyroidism Follow-up with Dr. Rodriguez in 1 to 2 weeks As needed analgesics prescribed by surgery Follow-up with nephrology CKD stage III Avoid nephrotoxic medications such as NSAIDs, Aleve, ibuprofen Continue home medicines as previously prescribed GOAL: Clear understanding of disease process INSTRUCTIONS: Physician Discharge Instructions: -DC IV and DC home -Follow-up with PCP in 1 to 2 weeks -Please call Dr. Gardner at [phone] if any questions regarding hospital stay -Please call nursing station at [phone] if any nursing or medication questions -Return to the emergency room if symptoms worsen Diet: ADA, low sodium Activity: Fall precautions No heavy lifting over 10 pounds DME: Date Ordered: Name of Company: [employer] Services Needed: None Date or Referral: IMMUNIZATION Influenza Vaccine Indicated: Influenza Vaccine Given: Date Given: Pneumonia Vaccine Indicated: Pneumonia Vaccine Given: Diet: Renal Activity: Weight bearing as tolerated Followup: Cleve Kennedy DO [ACTIVE - CAN ADMIT] - Carl Rodriguez MD [ACTIVE - CAN ADMIT] - Adriano Agee DO [Primary Care Provider] - Time spent managing pt's care (in minutes): 55
[2023-03-03] MEDS ORDERED: carvediloL 12.5 MG TAB PO SCH (08:00)
--- NOTE | 2023-03-03 09:59 | P.PN ---
Date of Service: 03/03/23 Vital Signs Temp Pulse Resp BP Pulse Ox 97.8 F 80 18 150/80 H 100 03/03/23 04:00 03/03/23 09:07 03/03/23 04:00 03/03/23 06:45 03/03/23 04:00 Medications Hydrocodone Bitart/Acetaminophen (Hydrocodone/Apap 7.5/325 Mg Tab) 1 tab PO Q6H PRN PRN Reason: Pain scale 2-4 (Mild) Last Admin: 03/03/23 09:07 Dose: 1 tab Carvedilol (Carvedilol 12.5 Mg Tab) 12.5 mg PO BIDWM JASSI Last Admin: 03/03/23 09:07 Dose: 12.5 mg Lactated Ringer's (Lactated Ringers) 1,000 mls @ 100 mls/hr IV .Q10H [facility] Last Admin: 03/03/23 05:21 Dose: 1,000 mls Labetalol HCl (Labetalol 20 Mg/4ml Syringe) 10 mg IV Q4H PRN PRN Reason: Titrate to SBP (MUST DEFINE) Last Admin: 03/03/23 05:18 Dose: 10 mg Magnesium Oxide (Magnesium Oxide 400 Mg Tab) 400 mg PO BID JSASI Morphine Sulfate (Morphine 4 Mg/Ml Syr) 4 mg IV Q6H PRN PRN Reason: Pain scale 8-10 (Severe) Last Admin: 03/02/23 16:03 Dose: 4 mg Ondansetron HCl (Ondansetron 4 Mg/2 Ml Vial) 4 mg IV Q6HP PRN PRN Reason: NAUSEA / VOMITING Last Admin: 03/03/23 01:24 Dose: 4 mg Promethazine HCl (Promethazine Inj 25 Mg/Ml Amp) 12.5 mg IV Q4H PRN PRN Reason: NAUSEA / VOMITING Last Admin: 03/03/23 09:08 Dose: 12.5 mg Assessment/ Plan: Nephrology No dyspnea No chest pain Yellow urine Abdominal pain with nausea Ambulating No acute events overnight Vitals, medications, blood work and imaging reviewed in the chart General: Oriented x3, Cooperative, Mild distress HEENT: Atraumatic Neck: Supple Respiratory: Normal air movement Cardiovascular: No edema, Regular rate/rhythm Gastrointestinal: Non-distended, Tenderness, Guarding Musculoskeletal: No clubbing, No contractures Integumentary: No rashes, No cyanosis Neurological: Normal speech Laboratory Data (last 24 hrs) 03/01/23 03/01/23 11:48 11:48 WBC 10.20 Hgb 11.3 L Hct 32.4 L Plt Count 568 H Sodium 135 L Potassium 5.8 H BUN 37 H Creatinine 2.89 H Glucose 291 H Total Bilirubin 0.3 AST 20 ALT 26 Alkaline Phosphatase 110 Lipase 40 Imagings Data: EXAM DESCRIPTION: US - Renal Ultrasound-Complete - 03/01/2023 2:23 pm CLINICAL HISTORY: abdominal pain COMPARISON: Abdomen Pelvis Wo Contrast dated 03/01/2023 TECHNIQUE: Sonographic grayscale and color flow images of the kidneys and bladder were obtained. FINDINGS: Both kidneys are normal in size, shape, and echotexture. The right kidney measures 9.2 cm in length. Incidentally noted upper to midpole 1.2 cm anechoic cyst. No hydronephrosis, focal mass, or echogenic calculi. The left kidney measures 9.4 cm in length. Mildly prominent left renal pelvis, may reflect a pelviectasis or early hydronephrosis. No focal mass, or echogenic calculi. Trace left perinephric fluid. The urinary bladder is without gross abnormality seen. . Bilateral ureteral jets are demonstrated. IMPRESSION: Mildly prominent left renal pelvis, may relate to pelviectasis or early hydronephrosis. Incidentally noted anechoic right upper to mid pole renal cyst, benign in appearance. EXAM DESCRIPTION: CT - Abdomen Pelvis Wo Contrast - 03/01/2023 12:33 pm CLINICAL HISTORY: Abdominal pain. ABD PAIN COMPARISON: Abdomen Pelvis Wo Contrast dated 04/09/2022; Abdomen Exam Limited dated 03/01/2023 TECHNIQUE: CT imaging of the abdomen and pelvis was performed without contrast. Solid organ, bowel and vascular assessment is limited due to lack of IV and oral contrast. All CT scans are performed using dose optimization technique as appropriate and may include automated exposure control or mA/KV adjustment according to patient size. FINDINGS: The lower lung ge are clear.Cholelithiasis. The liver, spleen, pancreas, adrenal glands are within normal limits for a limited non-contrast examination.Punctate caliceal stones are present in both kidneys without hydronephrosis. No bowel obstruction, free air, free fluid or abscess. The appendix is normal. The osseous structures are within normal limits. IMPRESSION: Punctate nephrolithiasis bilaterally without hydronephrosis. Cholelithiasis. A limited non-contrast examination was performed as detailed. EXAM DESCRIPTION: US - Abdomen Exam Limited - 03/01/2023 11:13 am CLINICAL HISTORY: ABD PAIN COMPARISON: Renal Ultrasound-Complete dated 04/09/2022 FINDINGS: The gallbladder demonstrates small gallstones in the gallbladder. No pericholecystic fluid or gallbladder wall thickening. The common bile duct is normal measuring 2 mm. The liver demonstrates no findings of intrahepatic biliary dilatation. IMPRESSION: Cholelithiasis. Conclusions/Impression: Stage II SILKE likely due to hypovolemia and may be complicated by ATN CKD III with Proteinuria -No NSAIDs -Continue IVF Hyponatremia -Continue IVF Hyperkalemia, resolved Hypomagnesemia -Start MagOx BID Nephrolithiasis, non-obstructing -Continue IVF HTN with CKD -Increase Coreg -Labetolol prn -Start Amlodipine DM II with CKD -RISS Anemia in chronic illness -Monitor H&H Cigarette Smoker -Recommend cessation -Nictotine TD prn Case reviewed with hospitalist team Hospitalist and ER notes reviewed
[2023-03-03] MEDS ORDERED: MAGNESIUM OXIDE 400 MG TAB PO SCH (10:00)
[2023-03-03] MEDS ORDERED: AMLODIPINE 5 MG TAB PO SCH (10:00)
[2023-03-03] MEDS ORDERED: carvediloL 25 MG TAB PO SCH (17:00)
[2023-03-03 17:52] VITALS: BP 172/93; TEMP 98.1
== END 2023-03-03 12:50 | disposition home or self-care (01) | DRG 418 ==
LOC: ER 10:23 → ERHOLD 14:24 → 2ND 17:38
PROVIDERS: ADMIT Hospitalist; ATTEND Hospitalist
PROC: BF121ZZ Fluoroscopy of Gallbladder using Low Osmolar Contrast (ICD-10-PCS; 2023-03-02)
PROC: 0FT44ZZ Resection of Gallbladder, Percutaneous Endoscopic Approach (ICD-10-PCS; principal; 2023-03-02 12:00)
DX: K80.12 Calculus of gallbladder with acute and chronic cholecystitis without obstruction (principal); E87.1 Hypo-osmolality and hyponatremia; N17.9 Acute kidney failure, unspecified; E78.5 Hyperlipidemia, unspecified; E03.9 Hypothyroidism, unspecified; E87.5 Hyperkalemia; E86.1 Hypovolemia; E86.0 Dehydration; N20.0 Calculus of kidney; I12.9 Hypertensive chronic kidney disease with stage 1 through stage 4 chronic kidney disease, or unspecified chronic kidney disease; N18.30 Chronic kidney disease, stage 3 unspecified; E11.22 Type 2 diabetes mellitus with diabetic chronic kidney disease; D63.1 Anemia in chronic kidney disease; D50.9 Iron deficiency anemia, unspecified; N28.1 Cyst of kidney, acquired; E83.42 Hypomagnesemia; K21.9 Gastro-esophageal reflux disease without esophagitis; D75.839 Thrombocytosis, unspecified; F17.200 Nicotine dependence, unspecified, uncomplicated; Z88.5 Allergy status to narcotic agent; Z98.51 Tubal ligation status; Z79.02 Long term (current) use of antithrombotics/antiplatelets; Z79.890 Hormone replacement therapy; Z79.899 Other long term (current) drug therapy
CPT/HCPCS: 36415; 74176; 74300; 76705; 76770; 80048; 80053; 81001; 81025; 82947; 83036; 83690; 83735; 85025; 88304; 94010; 96361; 96365; 96366; 96375; 99285; J0694; J1100; J1170; J2250; J2405; J2543; J2550; J2765; J3010; J7030; J7120

== ENCOUNTER 2023-03-07 03:11 | Inpatient (IN) | payer OTHER ==
[2023-03-07] MEDS ORDERED: HYDROMORPHONE HCL 1 MG/ML INJ ONE (03:24)
[2023-03-07] MEDS ORDERED: ONDANSETRON 4 MG/2 ML VIAL ONE (03:24)
--- OUTSIDE RECORDS SUMMARY | 2023-03-07 03:24 | XMS REPORT | Continuity of Care Document ---
Author Name Unknown Address [address] [facility] [address] [place] [address] [facility] thconnect Address [address] [facility] [address] [place] [address] Care Team Providers Care Engineering Instructor Name Role Phone ANDREW VERDUZCO Primary Care [...] TANGELA Mendoza Attending Clinician Unavailab fabio [facility] HEM/ONC NURSE Attending Clinician Lila vailable [id number] Attending Clinician Unavailable LIZETH FLORES Attending Clinician Unavailable 1, [facility] TOMOGRAPHY Attending Clinic mann Unavailable ERIC DURBIN Attending Clinician Unavailab SEBASTIAN Rose Attending Clinician Unava ilable ANDREI MAR Attending Clinician Unavailable LAB90 Attending Clinician Unavailable TOMOGRAPHY, [facility] Attending Cl inician Unavailable SHMUEL HAGEN Attending Clinician Unavailable NUHA WINSTON Attending Clinician Unav ailable VF53 Attending Clinician Unavailable LEONID ROSE Attending Clinician Unava ilable JORGE CHEEK Attending Clinician Unavailable KESHAWN JONES Attending Clinician Unavailable IVT, GABY Attending Clinician Unavailable CALRTON HERNANDEZ Attending Clinician Unavailab IMSA Zimmerman Attending Clinician Unavailable INFUSION, [facility] Attending Clinician Unavailable ANGELA BELTRAN Attending Clinician Unavailable ZAIN DIOR Attending Clinician Unavailable TOMOGRAPHY, [facility] Attending Mary Lou willett Unavailable MATTHEW ASHFORD Attending Clinician Unavailable PHOEBE ROWE Attending Clinician Unavailable ANDREW VERDUZCO Attending Clinician Unavailab ANDREW Valenzuela Attending Clinician Unavailab ROSETTA Hernández Attending Clinician Unavailable Malini Muñoz LMSW Attending Clinician [phone] Doctor Unassigned, [place] Attending Clinician U navailable UNKNOWN, ATTENDING Attending Clinician Unavailab LEXA Watson Attending Clinician Unavailable Lexa Goff DO Attending Clinician [phone] PATRIA LEVY Attending Clinician Unavailab Santos Colón Attending Clinician Unavailable KEATON PATIÑO Admitting Clinician Unavailable LEXA GOFF Admitting Clinician Unavailable Santos MOISE Admitting Clinician Unavailable Payers Payer Name Policy Type Policy Number Effective Date Expirati on Date Source [employer] MP [employer] [employer]: 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 ON STAND 9 [id number] 2022 00:00:00 [employer] 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 [id number] 2023 00:00:00 Problems Condition Name Condition Details Condition Category Status Onset Date Resolution Date Last Treatment Date Treating Clinician Comments Source Pain in both hands Pain in both hands Disease Active 2022-02 00:00: 00 Melissa Seybold - Externa l Left elbow pain Left elbow pain Disease Active 2022-02 1-03 00:00: 00 Emlissa Seybold - Externa l Uterine prolapse Uterine [...] use of insulin (multi HCC) Disease Active - 00:00: 00 Melissa Quigleyybold - Externa l Well adult exam Well adult exam Disease Active 24 00:00: 00 Melissa Seybold - Externa l Menorrhagi a with irregular cycle Menorrhagi a with irregular cycle Disease Active 24 00:00: 00 Melissa Seybold - Externa l Iron deficiency anemia due to chronic blood loss Iron deficiency anemia due to chronic blood loss Disease Active 3-16 00:00: 00 Melissa Seybold - Externa l Acquired hypothyroi dism Acquired hypothyroi dism Disease Active 24 00:00: 00 Melissa Seybold - Externa l Primary hypertensi on Primary hypertensi on Disease Active 24 00:00: 00 Melissa Seybold - Externa l Edema of right lower extremity Edema of right lower extremity Disease Active 04-03 00:00: 00 Melissa Seybold - Externa l History of foot fracture History of foot fracture Disease Active 24 00:00: 00 Melissa Seybold - Externa l DM type 2 with diabetic mixed hyperlipid emia (multi HCC) DM type 2 with diabetic mixed hyperlipid emia (multi HCC) Disease Active 04-03 00:00: 00 Melissa Uribea l BMI 27.0-27.9, adult BMI 27.0-27.9, adult Disease Active 08-20 00:00: 00 [facility] Screening examinatio n for STD (sexually transmitte d disease) Screening examinatio n for STD (sexually transmitte d disease) Disease Active 08-20 00:00: 00 [facility] Elevated blood pressure reading without diagnosis of hypertensi on Elevated blood pressure reading without diagnosis of hypertensi on Disease Active 08-20 00:00: 00 [facility] BMI 27.0-27.9, adult BMI 27.0-27.9, adult Disease Active 08-20 00:00: 00 [facility] Pain pelvic Pain pelvic Disease Active 08-20 00:00: 00 [facility] Allergies, Adverse Reactions, Alerts Allergy Name Allergy Type Status Severity Reaction(s) Onset Date Inactive Date Treating Clinician Comments Source Hydrocod one Propensi ty to adverse reaction s Active 04-09 00:00: 00 Other reaction( s): Nausea/Vo mitingOth er reaction( s): Not available Melissa cates NO KNOWN ALLERGIE S Drug Class Active [facility] Social History Social Habit Start Date Stop Date Quantity Comments Source Gender identity Trisha Grant - External Sexual orientation [facility] Alcohol intake 2023-02-16 00:00:00 2023-02-16 00:00:00 Ex-drinker [...] of Social function 2021-09-30 00:00:00 2021-09-30 00:00:00 [facility] Exposure to SARS-CoV-2 (event) 2021-09-19 00:00:00 2021-09-29 13:11:00 Not sure [facility] History SDOH Alcohol Frequency 2019-08-21 00:00:00 2019-08-21 00:00:00 2 [facility] History SDOH Alcohol Std Drinks 2019-08-21 00:00:00 2019-08-21 00:00:00 1 [facility] History SDOH Alcohol Binge 2019-08-21 00:00:00 2019-08-21 00:00:00 1 [facility] Alcohol Comment 2019-08-21 00:00:00 2019-08-21 00:00:00 social [facility] Sex Assigned At 1975 00:00:00 1975 00:00:00 Melissa Grant - External Smoking Status Start Date Stop Date Source Ex-smoker 2022-09-02 00:00:00 2022-09-02 00:00:00 Santos Grant - Tram Smokes tobacco daily 2022-04-03 00:00:00 Melissa Grant - Tram Never smoked tobacco [facility] Medications Ordered Medication Name Filled Medication Name Start Date Stop Date Current Medication? Ordering Clinician Indication Dosage Frequency Signature (SIG) Comments Components Source metoclopram torrey HCl (REGLAN) injection 10 mg 02-24 06:45: 00 02-24 06:46 :00 No 10mg 10 mg, Slow IV Push, ONCE, 1 dose, On Wed02/24/23 at 0045, FRANK [facility] morpHINE (4 mg/mL) injection 4 mg 02-24 06:45: 00 02-24 06:45 :00 No 4mg 4 mg, Slow IV Push, ONCE, 1 dose, On Wed02/24/23 at 0045, STAT [facility] ondansetron (ZOFRAN (PF)) injection 4 mg 02-24 06:00: 00 02-24 05:53 :00 No 4mg 4 mg, Slow IV Push, ONCE, 1 dose, On Wed02/24/23 at 0000, FRANK [facility] NaCl 0.9% (NS) IV infusion 1,000 mL 02-24 05:15: 00 Yes 1000mL at 999 mL/hr, Intravenou s, CONTINUOUS , Starting on Wed02/23/23 at 2315, Until Discontinu ed, Routine [facility] ketorolac (TORADOL) injection 30 mg 02-24 05:15: 00 02-24 04:27 :00 No 30mg 30 mg, Slow IV Push, ONCE, 1 dose, On Wed02/23/23 at 2315, Routine [facility] ondansetron (ZOFRAN (PF)) injection 4 mg 02-24 04:15: 00 02-24 04:14 :00 No 4mg 4 mg, Slow IV Push, ONCE, 1 dose, On Wed02/23/23 at 2215, FRANK [facility] maalox:diph enhydrAMINE :lidocaine 2 % viscous 1:1:1 (FIRST-MOUT HWASH BLM) oral suspension 15 mL 02-24 04:15: 00 02-24 04:13 :00 No 15mL 15 mL, Oral, ONCE, 1 dose, On Wed02/23/23 at 2215, Routine [facility] dicyclomine 20 mg tablet 02-24 00:00: 00 Yes [id number] 20mg Take 1 tablet by mouth every 6 (six) hours as needed for Abdominal pain. [facility] proMETHazin e 25 mg tablet 02-24 00:00: 00 Yes [id number] 25mg Take 1 tablet by mouth every 6 (six) hours as needed for Nausea and Vomiting (N/V). [facility] traMADoL (ULTRAM) 50 mg tablet 02-24 00:00: 00 Yes [id number] 50mg Take 1 tablet by mouth every 6 (six) hours as needed for Pain (scale 7-10). Indication s: acute pain [facility] dicyclomine 20 mg tablet 02-24 00:00: 02-24 00:00 :00 No [id number] 20mg Take 1 tablet by mouth every 6 (six) hours as needed for Abdominal pain. [facility] traMADoL (ULTRAM) 50 mg tablet 02-24 00:00: 00 02-24 00:00 :00 No [id number] 50mg Take 1 tablet by mouth every 6 (six) hours as needed for Pain (scale 7-10). Indication s: acute pain [facility] proMETHazin e 25 mg tablet 02-24 00:00: 00 02-24 00:00 :00 No [id number] 25mg Take 1 tablet by mouth every 6 (six) hours as needed for Nausea and Vomiting (N/V). [facility] Ibuprofen (MOTRIN) 400 MG oral Tablet 02-16 00:00: 00 Yes [id number] 400mg Q.25D Take 1 tablet (400 mg total) by mouth every 6 hours as needed. Melissa cates HYDROcodone -Acetaminop hen ([place]) 5-325 MG oral Tablet 02-16 00:00: 00 Yes [id number] 1{tbl} Q.25D Take 1 tablet by mouth every 6 hours as needed for pain. Melissa cates Ibuprofen (MOTRIN) 400 MG oral Tablet 02-16 00:00: 00 Yes [id number] 400mg Q.25D Take 1 tablet (400 mg total) by mouth every 6 hours as needed. Melissa cates HYDROcodone -Acetaminop hen ([place]) 5-325 MG oral Tablet 02-16 00:00: 00 Yes [id number] 1{tbl} Q.25D Take 1 tablet by mouth every 6 hours as needed for pain. Melissa cates Benzonatate (Tessalon Perles) 100 MG oral Capsule 2022-02 00:00: 00 Yes [id number] 100mg Q.[id number] 3D Take 1 capsule (100 mg total) by mouth 3 times daily as needed for cough. Melissa cates Benzonatate (Tessalon Perles) 100 MG oral Capsule 2022-02 00:00: 00 Yes [id number] 100mg Q.[id number] [id number] 3D Take 1 capsule (100 mg total) by mouth 3 times daily as needed for cough. Melissa Grant - Externa l Benzonatate (Tessalon Perles) 100 MG oral Capsule 2022-02 00:00: 00 Yes [id number] 100mg Q.[id number] 3D Take 1 capsule (100 mg total) by mouth 3 times daily as needed for cough. Melissa Grant - Externa l Benzonatate (Tessalon Perles) 100 MG oral Capsule 2022-02 00:00: 00 Yes [id number] 100mg Q.66850105 [id number] 3D Take 1 capsule (100 mg total) by mouth 3 times daily as needed for cough. Melissa Grant - Externa l Benzonatate (Tessalon Perles) 100 MG oral Capsule 2022-02 00:00: 00 02-16 00:00 :00 No [id number] 100mg Q.[id number] 3D Take 1 capsule (100 mg total) by mouth 3 times daily as needed for cough. Melissa Uribea darryn Azithromyci n 250 MG oral Tablet 2022-02 00:00: 00 01-04 05:59 :00 Yes [id number] Take 2 tablets by mouth on day 1 then 1 tablet by mouth daily for 4 days thereafter .. Melissa Uribea darryn Olmesartan Medoxomil 5 MG oral Tablet 2022-02 00:00: 00 Yes 1{tbl} Take 1 tablet by mouth daily. Melissa Griffin Externa l Olmesartan Medoxomil 5 MG oral Tablet 2022-02 00:00: 00 Yes 1{tbl} Take 1 tablet by mouth daily. Melissa Grant - Externa l Olmesartan Medoxomil 5 MG oral Tablet 2022-02 00:00: 00 Yes 1{tbl} Take 1 tablet by mouth daily. Melissa Uribea darryn Olmesartan Medoxomil 5 MG oral Tablet 2022-02 00:00: 00 Yes 1{tbl} Take 1 tablet by mouth daily. Melissa Rudy - Externa l Olmesartan Medoxomil 5 MG oral Tablet 2022-02 00:00: 00 Yes 1{tbl} Take 1 tablet by mouth daily. Melissa Rudy - Externa l Olmesartan Medoxomil 5 MG oral Tablet 2022-02 00:00: 00 Yes 1{tbl} Take 1 tablet by mouth daily. Melissa Grant - Externa l Ferrous Sulfate (Iron) 325 (65 Fe) MG oral Tablet 2022-02 00:00: 00 Yes [id number] 325mg Take 1 tablet (325 mg total) by mouth daily (with breakfast) . Melissa Grant - Externa l Ferrous Sulfate (Iron) 325 (65 Fe) MG oral Tablet 2022-02 00:00: 00 Yes [id number] 325mg Take 1 tablet (325 mg total) by mouth daily (with breakfast) . Melissa Grant - Externa l Ferrous Sulfate (Iron) 325 (65 Fe) MG oral Tablet 2022-02 00:00: 00 Yes [id number] 325mg Take 1 tablet (325 mg total) by mouth daily (with breakfast) . Melissa Grant - Externa l Ferrous Sulfate (Iron) 325 (65 Fe) MG oral Tablet 2022-02 00:00: 00 Yes [id number] 325mg Take 1 tablet (325 mg total) by mouth daily (with breakfast) . Melissa Grant - Externa l Ferrous Sulfate (Iron) 325 (65 Fe) MG oral Tablet 2022-02 00:00: 00 Yes [id number] 325mg Take 1 tablet (325 mg total) by mouth daily (with breakfast) . Melissa Quigleyybold - Externa l Ferrous Sulfate (Iron) 325 (65 Fe) MG oral Tablet 2022-02 00:00: 00 Yes [id number] 325mg Take 1 tablet (325 mg total) by mouth daily (with breakfast) . Melissa Grant - Externa l Ferrous Sulfate (Iron) 325 (65 Fe) MG oral Tablet 2022-02 00:00: 00 Yes [id number] 325mg Take 1 tablet (325 mg total) by mouth daily (with breakfast) . Melissa Rudy cates Atorvastati n Calcium (Lipitor) 10 MG oral Tablet 2022-02 0 00:00: 00 Yes [id number] 3 10mg Take 1 tablet (10 mg total) by mouth nightly. Melissa cates Duloxetine HCl [address] Particles 2022-02 0 00:00: 00 Yes [id number] 20mg Take 1 capsule (20 mg total) by mouth daily. Melissa cates Atorvastati n Calcium (Lipitor) 10 MG oral Tablet 2022-02 0 00:00: 00 Yes [id number] 3 10mg Take 1 tablet (10 mg total) by mouth nightly. Melissa cates Duloxetine HCl [address] Particles 2022-02 0 00:00: 00 Yes [id number] 20mg Take 1 capsule (20 mg total) by mouth daily. Melissa cates Atorvastati n Calcium (Lipitor) 10 MG oral Tablet 2022-02 0 00:00: 00 Yes [id number] 3 10mg Take 1 tablet (10 mg total) by mouth nightly. Melissa cates Duloxetine HCl [address] Particles 2022-02 0 00:00: 00 Yes [id number] 20mg Take 1 capsule (20 mg total) by mouth daily. Melissa cates Atorvastati n Calcium (Lipitor) 10 MG oral Tablet 2022-02 0 00:00: 00 Yes [id number] 3 10mg Take 1 tablet (10 mg total) by mouth nightly. Melissa cates Duloxetine HCl [address] Particles 2022-02 0 00:00: 00 Yes [id number] 20mg Take 1 capsule (20 mg total) by mouth daily. Melissa cates Atorvastati n Calcium (Lipitor) 10 MG oral Tablet 2022-02 0 00:00: 00 Yes [id number] 3 10mg Take 1 tablet (10 mg total) by mouth nightly. Melissa cates Duloxetine HCl [address] Particles 2022-02 0 00:00: 00 Yes [id number] 20mg Take 1 capsule (20 mg total) by mouth daily. Melissa cates Atorvastati n Calcium (Lipitor) 10 MG oral Tablet 2022-02 00:00: 00 Yes [id number] 3 10mg Take 1 tablet (10 mg total) by mouth nightly. Melissa cates Atorvastati n Calcium (Lipitor) 10 MG oral Tablet 2022-02 00:00: 00 Yes [id number] 3 10mg Take 1 tablet (10 mg total) by mouth nightly. Melissa cates Duloxetine HCl [address] Particles 2022-02 00:00: 00 02-16 00:00 :00 No [id number] 20mg Take 1 capsule (20 mg total) by mouth daily. Melissa cates glipiZIDE 10 MG oral Tablet 2022-02 00:00: 00 Yes [id number] 10mg Take 1 tablet (10 mg total) by mouth in the morning and 1 tablet (10 mg total) in the evening. Take before meals. Melissa cates glipiZIDE 10 MG oral Tablet 2022-02 00:00: 00 Yes [id number] 10mg Take 1 tablet (10 mg total) by mouth in the morning and 1 tablet (10 mg total) in the evening. Take before meals. Melissa cates glipiZIDE 10 MG oral Tablet 2022-02 00:00: 00 Yes [id number] 10mg Take 1 tablet (10 mg total) by mouth in the morning and 1 tablet (10 mg total) in the evening. Take before meals. Melissa cates glipiZIDE 10 MG oral Tablet 2022-02 00:00: 00 Yes [id number] 10mg Take 1 tablet (10 mg total) by mouth in the morning and 1 tablet (10 mg total) in the evening. Take before meals. Melissa cates glipiZIDE 10 MG oral Tablet 2022-02 00:00: 00 Yes [id number] 10mg Take 1 tablet (10 mg total) by mouth in the morning and 1 tablet (10 mg total) in the evening. Take before meals. Melissa cates glipiZIDE 10 MG oral Tablet 2022-02 00:00: 00 Yes [id number] 10mg Take 1 tablet (10 mg total) by mouth in the morning and 1 tablet (10 mg total) in the evening. Take before meals. Melissa cates glipiZIDE 10 MG oral Tablet 2022-02 00:00: 00 Yes [id number] 10mg Take 1 tablet (10 mg total) [...] Delayed Release Capsule 2022-02 00:00: 00 Yes [id number] 40mg Take 1 capsule (40 mg total) by mouth every morning (before breakfast) . Melissa cates Esomeprazol e Magnesium (NexIUM) 40 MG oral Delayed Release Capsule 2022-02 00:00: 00 Yes [id number] 40mg Take 1 capsule (40 mg total) by mouth every morning (before breakfast) . Melissa cates Carvedilol (Coreg) 6.25 MG oral Tablet 2022-02 00:00: 00 Yes [id number] 6.25mg Take 1 tablet (6.25 mg total) by mouth in the morning and 1 tablet (6.25 mg total) in the evening. Take with meals. Melissa cates Duloxetine HCl [address] Particles 2022-02 00:00: 00 Yes [id number] 20mg Take 1 capsule (20 mg total) by mouth daily. Melissa cates Esomeprazol e Magnesium (NexIUM) 40 MG oral Delayed Release Capsule 2022-02 00:00: 00 Yes [id number] 40mg Take 1 capsule (40 mg total) by mouth every morning (before breakfast) . Melissa cates Carvedilol (Coreg) 6.25 MG oral Tablet 2022-02 00:00: 00 Yes [id number] 6.25mg Take 1 tablet (6.25 mg total) by mouth in the morning and 1 tablet (6.25 mg total) in the evening. Take with meals. Melissa cates Esomeprazol e Magnesium (NexIUM) 40 MG oral Delayed Release Capsule 2022-02 00:00: 00 Yes [id number] 40mg Take 1 capsule (40 mg total) by mouth every morning (before breakfast) . Melissa cates Carvedilol (Coreg) 6.25 MG oral Tablet 2022-02 00:00: 00 Yes [id number] 6.25mg Take 1 tablet (6.25 mg total) by mouth in the morning and 1 tablet (6.25 mg total) in the evening. Take with meals. Melissa cates Esomeprazol e Magnesium (NexIUM) 40 MG oral Delayed Release Capsule 2022-02 00:00: 00 Yes [id number] 40mg Take 1 capsule (40 mg total) by mouth every morning (before breakfast) . Melissa cates Carvedilol (Coreg) 6.25 MG oral Tablet 2022-02 00:00: 00 Yes [id number] 6.25mg Take 1 tablet (6.25 mg total) by mouth in the morning and 1 tablet (6.25 mg total) in the evening. Take with meals. Melissa cates Esomeprazol e Magnesium (NexIUM) 40 MG oral Delayed Release Capsule 2022-02 00:00: 00 Yes [id number] 40mg Take 1 capsule (40 mg total) by mouth every morning (before breakfast) . Melissa cates Carvedilol (Coreg) 6.25 MG oral Tablet 2022-02 00:00: 00 Yes [id number] 6.25mg Take 1 tablet (6.25 mg total) by mouth in the morning and 1 tablet (6.25 mg total) in the evening. Take with meals. Melissa cates Esomeprazol e Magnesium (NexIUM) 40 MG oral Delayed Release Capsule 2022-02 00:00: 00 Yes [id number] 40mg Take 1 capsule (40 mg total) by mouth every morning (before breakfast) . Melissa cates Carvedilol (Coreg) 6.25 MG oral Tablet 2022-02 00:00: 00 Yes [id number] 6.25mg Take 1 tablet (6.25 mg total) by mouth in the morning and 1 tablet (6.25 mg total) in the evening. Take with meals. Melissa cates Esomeprazol e Magnesium (NexIUM) 40 MG oral Delayed Release Capsule 2022-02 00:00: 00 Yes [id number] 40mg Take 1 capsule (40 mg total) by mouth every morning (before breakfast) . Melissa cates Carvedilol (Coreg) 6.25 MG oral Tablet 2022-02 00:00: 00 02-16 00:00 :00 No [id number] 6.25mg Take 1 tablet (6.25 mg total) by mouth in the morning and 1 tablet (6.25 mg total) in the evening. Take with meals. Melissa cates Gabapentin 100 MG oral Capsule 2022-02 00:00: 00 11-11 00:00 :00 No [id number] 100mg Take 1 capsule (100 mg total) by mouth nightly. Melissa cates Duloxetine HCl [address] Particles 2022-02 0 00:00: 00 11-11 00:00 :00 No [id number] 20mg Take 1 capsule (20 mg total) by mouth daily. Melissa cates Aspirin 81 MG oral Tablet Delayed Response 11-05 14:58: 48 Yes Take 1 tablet every day by oral route. Melissa cates Gabapentin 100 MG oral Capsule 11-02 00:00: 00 Yes [id number] 100mg Q.5D Take 1 capsule (100 mg total) by mouth 2 times daily as needed (pain). Melissa cates Gabapentin 100 MG oral Capsule 11-02 00:00: 00 11-11 00:00 :00 No [id number] 100mg Q.5D Take 1 capsule (100 mg total) by mouth 2 times daily as needed (pain). Melissa Rudy Uribea l Bevacizumab (AVASTIN) 100 mg/4 mL - Physician Administere d (J9035) 10-30 19:30: 00 10-30 19:19 :00 No [id number] 101 1.25mg Melissa Rudy Uribea l Bevacizumab (AVASTIN) 100 mg/4 mL - Physician Administere d ([id number]) 10-30 19:30: 00 10-30 19:19 :00 No [id number] 101 1.25mg 1.25 mg, Physician Administer ed, ONCE, 1 dose, On Wed10/30/22 at 1430 Melissa cates Bevacizumab (AVASTIN) 100 mg/4 mL - Physician Administere d ([id number]) 10-30 19:30: 00 10-30 19:19 :00 No [id number] 101 1.25mg Melissa Uribea l Bevacizumab (AVASTIN) 100 mg/4 mL - Physician Administere d ([id number]) 10-30 19:30: 00 10-30 19:19 :00 No [id number] 101 1.25mg 1.25 mg, Physician Administer ed, ONCE, 1 dose, On Wed10/30/22 at 1430 Melissa cates Aspirin 81 MG oral Tablet [...] tablet every day by oral route. Melissa Grant - Externa l Aspirin 81 MG oral Tablet Delayed Response 2022-0 10-28 16:44: 47 Yes Take 1 tablet every day by oral route. Melissa Griffin Externa l Aspirin 81 MG oral Tablet Delayed Response 2022-0 10-27 14:21: 48 Yes Take 1 tablet every day by oral route. Melissa Griffin Externa l Aspirin 81 MG oral Tablet Delayed Response 0 10-26 14:32: 26 Yes Take 1 tablet every day by oral route. Melissa Uribea l Aspirin 81 MG oral Tablet Delayed Response 0 10-13 13:43: 47 Yes Take 1 tablet every day by oral route. Melissa Griffin Externa l Latanoprost 0.005 % ophthalmic Solution 0 10-13 00:00: 00 Yes [id number] 1[drp] Place 1 drop into both eyes nightly. Melissa Grant - Externa l Latanoprost 0.005 % ophthalmic Solution 0 10-13 00:00: 00 Yes [id number] 1[drp] Place 1 drop into both eyes nightly. Melissa Griffin Externa l Latanoprost 0.005 % ophthalmic Solution 0 10-13 00:00: 00 Yes [id number] 1[drp] Place 1 drop into both eyes nightly. Melissa Grant - Externa l Latanoprost 0.005 % ophthalmic Solution 0 10-13 00:00: 00 Yes [id number] 1[drp] Place 1 drop into both eyes nightly. Melissa Grant - Externa l Latanoprost 0.005 % ophthalmic Solution 0 10-13 00:00: 00 Yes [id number] 1[drp] Place 1 drop into both eyes nightly. Melissa Barronold - Externa l Latanoprost 0.005 % ophthalmic Solution 0 10-13 00:00: 00 Yes [id number] 1[drp] Place 1 drop into both eyes nightly. Melissa Seybold - Externa l Latanoprost 0.005 % ophthalmic Solution 2022-0 05 00:00: 00 Yes [id number] 1[drp] Place 1 drop into both eyes nightly. Melissa Seybold - Externa l Latanoprost 0.005 % ophthalmic Solution 2022-0 -05 00:00: 00 Yes [id number] 1[drp] Place 1 drop into both eyes nightly. Melissa Seybold - Externa l Latanoprost 0.005 % ophthalmic Solution 2022-0 -05 00:00: 00 Yes [id number] 1[drp] Place 1 drop into both eyes nightly. Melissa Seybold - Externa l Latanoprost 0.005 % ophthalmic Solution 2022-0 -05 00:00: 00 Yes [id number] 1[drp] Place 1 drop into both eyes nightly. Melissa Seybold - Externa l Latanoprost 0.005 % ophthalmic Solution 2022-0 -05 00:00: 00 Yes [id number] 1[drp] Place 1 drop into both eyes nightly. Melissa Seybold - Externa l Latanoprost 0.005 % ophthalmic Solution 2022-0 05 00:00: 00 Yes [id number] 1[drp] Place 1 drop into both eyes nightly. Melissa Seybold - Externa l Latanoprost 0.005 % ophthalmic Solution 2022-0 -05 00:00: 00 Yes [id number] 1[drp] Place 1 drop into both eyes nightly. Melissa Seybold - Externa l Latanoprost 0.005 % ophthalmic Solution 2022-0 -05 00:00: 00 Yes [id number] 1[drp] Place 1 drop into both eyes nightly. Melissa Seybold - Externa l Latanoprost 0.005 % ophthalmic Solution 2022-0 -05 00:00: 00 Yes [id number] 1[drp] Place 1 drop into both eyes nightly. Melissa Seybold - Externa l Latanoprost 0.005 % ophthalmic Solution 2022-0 9-05 00:00: 00 Yes [id number] 1[drp] Place 1 drop into both eyes nightly. Melissa cates Latanoprost 0.005 % ophthalmic Solution 10-13 00:00: 00 Yes [id number] 1[drp] Place 1 drop into both eyes nightly. Melissa cates Latanoprost 0.005 % ophthalmic Solution 10-13 00:00: 00 Yes [id number] 1[drp] Place 1 drop into both eyes nightly. Melissa cates Atorvastati n Calcium (Lipitor) 10 MG oral Tablet 09-28 00:00: 00 Yes [id number] 3 10mg Take 1 tablet (10 mg total) by mouth nightly. Melissa cates Atorvastati n Calcium (Lipitor) 10 MG oral Tablet 09-28 00:00: 00 Yes [id number] 3 10mg Take 1 tablet (10 mg total) by mouth nightly. Melissa cates Atorvastati n Calcium (Lipitor) 10 MG oral Tablet 09-28 00:00: 00 Yes [id number] 3 10mg Take 1 tablet (10 mg total) by mouth nightly. Melissa cates Atorvastati n Calcium (Lipitor) 10 MG oral Tablet 09-28 00:00: 00 Yes [id number] 3 10mg Take 1 tablet (10 mg total) by mouth nightly. Melissa cates Atorvastati n Calcium (Lipitor) 10 MG oral Tablet 09-28 00:00: 00 Yes [id number] 3 10mg Take 1 tablet (10 mg total) by mouth nightly. Melissa Uribea darryn Atorvastati n Calcium (Lipitor) 10 MG oral Tablet 09-28 00:00: 00 Yes [id number] 3 10mg Take 1 tablet (10 mg total) by mouth nightly. Melissa Griffin Externa l Atorvastati n Calcium (Lipitor) 10 MG oral Tablet 09-28 00:00: 00 Yes [id number] 3 10mg Take 1 tablet (10 mg total) by mouth nightly. Melissa Uribea l Atorvastati n Calcium (Lipitor) 10 MG oral Tablet 09-28 00:00: 00 Yes [id number] 3 10mg Take 1 tablet (10 mg total) by mouth nightly. Melissa cates Atorvastati n Calcium (Lipitor) 10 MG oral Tablet 09-28 00:00: 00 Yes [id number] 3 10mg Take 1 tablet (10 mg total) by mouth nightly. Melissa cates Atorvastati n Calcium (Lipitor) 10 MG oral Tablet 09-28 00:00: 00 Yes [id number] 3 10mg Take 1 tablet (10 mg total) by mouth nightly. Melissa cates Atorvastati n Calcium (Lipitor) 10 MG oral Tablet 09-28 00:00: 00 Yes [id number] 3 10mg Take 1 tablet (10 mg total) by mouth nightly. Melissa cates Latanoprost 0.005 % ophthalmic Solution 09-28 00:00: 00 10-13 00:00 :00 No [id number] 1[drp] Place 1 drop into both eyes [...] MG oral Tablet 09-04 00:00: 00 Yes [id number] 4mg Q.[id number] 3D Take 1 tablet (4 mg total) by mouth every 8 hours as needed for nausea Melissa Seybold - Externa l Ondansetron HCl 4 MG oral Tablet 09-04 00:00: 00 Yes [id number] 4mg Q.[id number] 3D Take 1 tablet (4 mg total) by mouth every 8 hours as needed for nausea Melissa Seybold - Externa l Ondansetron HCl 4 MG oral Tablet 09-04 00:00: 00 Yes [id number] 4mg Q.[id number] 3D Take 1 tablet (4 mg total) by mouth every 8 hours as needed for nausea Melissa Seybold - Externa l Ondansetron HCl 4 MG oral Tablet 09-04 00:00: 00 Yes [id number] 4mg Q.[id number] 3D Take 1 tablet (4 mg total) by mouth every 8 hours as needed for nausea Melissa Seybold - Externa l Ondansetron HCl 4 MG oral Tablet 09-04 00:00: 00 Yes [id number] 4mg Q.[id number] 3D Take 1 tablet (4 mg total) by mouth every 8 hours as needed for nausea Melissa Seybold - Externa l Ondansetron HCl 4 MG oral Tablet 09-04 00:00: 00 Yes [id number] 4mg Q.[id number] 3D Take 1 tablet (4 mg total) by mouth every 8 hours as needed for nausea Melissa Seybold - Externa l Ondansetron HCl 4 MG oral Tablet 09-04 00:00: 00 Yes [id number] 4mg Q.[id number] 3D Take 1 tablet (4 mg total) by mouth every 8 hours as needed for nausea Melissa Seybold - Externa l Ondansetron HCl 4 MG oral Tablet 09-04 00:00: 00 Yes [id number] 4mg Q.[id number] 3D Take 1 tablet (4 mg total) by mouth every 8 hours as needed for nausea Melissa Grant - Externa l Ondansetron HCl 4 MG oral Tablet 09-04 00:00: 00 Yes [id number] 4mg Q.[id number] [id number] 3D Take 1 tablet (4 mg total) by mouth every 8 hours as needed for nausea Melissa Grant - Externa l Ondansetron HCl 4 MG oral Tablet 09-04 00:00: 00 Yes [id number] 4mg Q.[id number] 3D Take 1 tablet (4 mg total) by mouth every 8 hours as needed for nausea Melissa Grant - Externa l Ondansetron HCl 4 MG oral Tablet 09-04 00:00: 00 11-11 00:00 :00 No [id number] 4mg Q.69835415 [id number] 3D Take 1 tablet (4 mg total) by mouth every 8 hours as needed for nausea Melissa Quigleypawelmayra Griffin Externa l Aspirin 81 MG oral Tablet Delayed Response 09-03 15:14: 59 Yes Take 1 tablet every day by oral route. Melissa Rudy - Externa l Levothyroxi ne Sodium 75 MCG oral Tablet 09-02 00:00: 00 Yes [id number] 75ug Take 1 tablet (75 mcg total) by mouth daily Melissa Grant - Externa l Sitagliptin Phosphate (Januvia) 50 MG oral Tablet 09-02 00:00: 00 Yes [id number] 50mg Take 1 tablet (50 mg total) by mouth daily Melissa Grant - Externa l Levothyroxi ne Sodium 75 MCG oral Tablet 09-02 00:00: 00 Yes [id number] 75ug Take 1 tablet (75 mcg total) by mouth daily Melissa Rudy - Externa l Sitagliptin Phosphate (Januvia) 50 MG oral Tablet 09-02 00:00: 00 Yes [id number] 50mg Take 1 tablet (50 mg total) by mouth daily Melissa Grant - Externa darryn Lansoprazol e 30 MG oral Delayed Release Capsule 09-02 00:00: 00 Yes [id number] 30mg Take 1 capsule (30 mg total) by mouth daily Melissa Grant - Externa darryn Levothyroxi ne Sodium 75 MCG oral Tablet 09-02 00:00: 00 Yes [id number] 75ug Take 1 tablet (75 mcg total) by mouth daily Melissa Grant - Externa darryn Sitagliptin Phosphate (Januvia) 50 MG oral Tablet 09-02 00:00: 00 Yes [id number] 50mg Take 1 tablet (50 mg total) by mouth daily Melissa Grant - Externa darryn Lansoprazol e 30 MG oral Delayed Release Capsule 09-02 00:00: 00 Yes [id number] 30mg Take 1 capsule (30 mg total) by mouth daily Melissa Grant - Externa darryn Levothyroxi ne Sodium 75 MCG oral Tablet 09-02 00:00: 00 Yes [id number] 75ug Take 1 tablet (75 mcg total) by mouth daily Melissa Griffin Externa darryn Sitagliptin Phosphate (Januvia) 50 MG oral Tablet 09-02 00:00: 00 Yes [id number] 50mg Take 1 tablet (50 mg total) by mouth daily Melissa Griffin Externa darryn Lansoprazol e 30 MG oral Delayed Release Capsule 09-02 00:00: 00 Yes [id number] 30mg Take 1 capsule (30 mg total) by mouth daily Melissa Grant - Externa darryn Levothyroxi ne Sodium 75 MCG oral Tablet 09-02 00:00: 00 Yes [id number] 75ug Take 1 tablet (75 mcg total) by mouth daily Melissa Grant - Externa darryn Sitagliptin Phosphate (Januvia) 50 MG oral Tablet 09-02 00:00: 00 Yes [id number] 50mg Take 1 tablet (50 mg total) by mouth daily Melissa Grant - Externa darryn Lansoprazol e 30 MG oral Delayed Release Capsule 09-02 00:00: 00 Yes [id number] 30mg Take 1 capsule (30 mg total) by mouth daily Melissa Grant - Externa darryn Levothyroxi ne Sodium 75 MCG oral Tablet 09-02 00:00: 00 Yes [id number] 75ug Take 1 tablet (75 mcg total) by mouth daily Melissa Grant - Externa darryn Sitagliptin Phosphate (Januvia) 50 MG oral Tablet 09-02 00:00: 00 Yes [id number] 50mg Take 1 tablet (50 mg total) by mouth daily Melissa Grant - Externa darryn Lansoprazol e 30 MG oral Delayed Release Capsule 09-02 00:00: 00 Yes [id number] 30mg Take 1 capsule (30 mg total) by mouth daily Melissa Grant - Externa darryn Levothyroxi ne Sodium 75 MCG oral Tablet 09-02 00:00: 00 Yes [id number] 75ug Take 1 tablet (75 mcg total) by mouth daily Melissa Griffin Externa darryn Sitagliptin Phosphate (Januvia) 50 MG oral Tablet 09-02 00:00: 00 Yes [id number] 50mg Take 1 tablet (50 mg total) by mouth daily Melissa Grant - Externa darryn Lansoprazol e 30 MG oral Delayed Release Capsule 09-02 00:00: 00 Yes [id number] 30mg Take 1 capsule (30 mg total) by mouth daily Melissa Grant - Externa darryn Levothyroxi ne Sodium 75 MCG oral Tablet 09-02 00:00: 00 Yes [id number] 75ug Take 1 tablet (75 mcg total) by mouth daily Melissa Grant - Externa darryn Sitagliptin Phosphate (Januvia) 50 MG oral Tablet 09-02 00:00: 00 Yes [id number] 50mg Take 1 tablet (50 mg total) by mouth daily Melissa Grant - Externa darryn Lansoprazol e 30 MG oral Delayed Release Capsule 09-02 00:00: 00 Yes [id number] 30mg Take 1 capsule (30 mg total) by mouth daily Melissa Grant - Externa darryn Levothyroxi ne Sodium 75 MCG oral Tablet 09-02 00:00: 00 Yes [id number] 75ug Take 1 tablet (75 mcg total) by mouth daily Melissa Grant - Externa darryn Sitagliptin Phosphate (Januvia) 50 MG oral Tablet 09-02 00:00: 00 Yes [id number] 50mg Take 1 tablet (50 mg total) by mouth daily Melissa Grant - Externa darryn Lansoprazol e 30 MG oral Delayed Release Capsule 09-02 00:00: 00 Yes [id number] 30mg Take 1 capsule (30 mg total) by mouth daily Melissa Grant - Externa darryn Levothyroxi ne Sodium 75 MCG oral Tablet 09-02 00:00: 00 Yes [id number] 75ug Take 1 tablet (75 mcg total) by mouth daily Melissa Griffin Externa darryn Sitagliptin Phosphate (Januvia) 50 MG oral Tablet 09-02 00:00: 00 Yes [id number] 50mg Take 1 tablet (50 mg total) by mouth daily Melissa Griffin Externa darryn Lansoprazol e 30 MG oral Delayed Release Capsule 09-02 00:00: 00 Yes [id number] 30mg Take 1 capsule (30 mg total) by mouth daily Melissa Grant - Externa darryn Levothyroxi ne Sodium 75 MCG oral Tablet 09-02 00:00: 00 Yes [id number] 75ug Take 1 tablet (75 mcg total) by mouth daily Melissa Griffin Externa darryn Sitagliptin Phosphate (Januvia) 50 MG oral Tablet 09-02 00:00: 00 Yes [id number] 50mg Take 1 tablet (50 mg total) by mouth daily Melissa Grant - Externa darryn Lansoprazol e 30 MG oral Delayed Release Capsule 09-02 00:00: 00 Yes [id number] 30mg Take 1 capsule (30 mg total) by mouth daily Melissa Grant - Externa darryn Levothyroxi ne Sodium 75 MCG oral Tablet 09-02 00:00: 00 Yes [id number] 75ug Take 1 tablet (75 mcg total) by mouth daily Melissa Grant - Externa darryn Sitagliptin Phosphate (Januvia) 50 MG oral Tablet 09-02 00:00: 00 Yes [id number] 50mg Take 1 tablet (50 mg total) by mouth daily Melissa Uribea darryn Lansoprazol e 30 MG oral Delayed Release Capsule 09-02 00:00: 00 Yes [id number] 30mg Take 1 capsule (30 mg total) by mouth daily Melissa Grant - Externa darryn Levothyroxi ne Sodium 75 MCG oral Tablet 09-02 00:00: 00 Yes [id number] 75ug Take 1 tablet (75 mcg total) by mouth daily Melissa Griffin Externa darryn Sitagliptin Phosphate (Januvia) 50 MG oral Tablet 09-02 00:00: 00 Yes [id number] 50mg Take 1 tablet (50 mg total) by mouth daily Melissa Grant - Externa darryn Levothyroxi ne Sodium 75 MCG oral Tablet 09-02 00:00: 00 Yes [id number] 75ug Take 1 tablet (75 mcg total) by mouth daily Melissa Uribea darryn Sitagliptin Phosphate (Januvia) 50 MG oral Tablet 09-02 00:00: 00 Yes [id number] 50mg Take 1 tablet (50 mg total) by mouth daily Melissa Grant - Externa darryn Levothyroxi ne Sodium 75 MCG oral Tablet 09-02 00:00: 00 Yes [id number] 75ug Take 1 tablet (75 mcg total) by mouth daily Melissa Uribea darryn Sitagliptin Phosphate (Januvia) 50 MG oral Tablet 09-02 00:00: 00 Yes [id number] 50mg Take 1 tablet (50 mg total) by mouth daily Melissa Grant - Externa darryn Levothyroxi ne Sodium 75 MCG oral Tablet 09-02 00:00: 00 Yes [id number] 75ug Take 1 tablet (75 mcg total) by mouth daily Melissa Grant - Externa darryn Sitagliptin Phosphate (Januvia) 50 MG oral Tablet 09-02 00:00: 00 Yes [id number] 50mg Take 1 tablet (50 mg total) by mouth daily Melissa Grant - Externa darryn Levothyroxi ne Sodium 75 MCG oral Tablet 09-02 00:00: 00 Yes [id number] 75ug Take 1 tablet (75 mcg total) by mouth daily Melissa cates Sitagliptin Phosphate (Januvia) 50 MG oral Tablet 09-02 00:00: 00 Yes [id number] 50mg Take 1 tablet (50 mg total) by mouth daily Melissa Griffin Externa darryn Levothyroxi ne Sodium 75 MCG oral Tablet 09-02 00:00: 00 Yes [id number] 75ug Take 1 tablet (75 mcg total) by mouth daily Melissa cates Sitagliptin Phosphate (Januvia) 50 MG oral Tablet 09-02 00:00: 00 Yes [id number] 50mg Take 1 tablet (50 mg total) by mouth daily Melissa cates Levothyroxi ne Sodium 75 MCG oral Tablet 09-02 00:00: 00 Yes [id number] 75ug Take 1 tablet (75 mcg total) by mouth daily Melissa cates Sitagliptin Phosphate (Febuvia) 50 MG oral Tablet 09-02 00:00: 00 Yes [id number] 50mg Take 1 tablet (50 mg total) by mouth daily Melissa cates Lansoprazol e 30 MG oral Delayed Release Capsule 09-02 00:00: 00 11-11 00:00 :00 No [id number] 30mg Take 1 capsule (30 mg total) by mouth daily Melissa cates Aspirin 81 MG oral Tablet Delayed Response 08-27 12:55: 37 Yes Take 1 tablet every day by oral route. Melissa cates Sitagliptin Phosphate (Januvia) 50 MG oral Tablet 08-27 00:00: 00 Yes [id number] 50mg Take 1 tablet (50 mg total) by mouth daily Melissa cates Lansoprazol e 30 MG oral Delayed Release Capsule 08-27 00:00: 00 Yes [id number] 30mg Take 1 capsule (30 mg total) by mouth daily Melissa cates Latanoprost 0.005 % ophthalmic Solution 07-28 00:00: 00 Yes [id number] 1[drp] Place 1 drop into both eyes nightly Melissa cates glipiZIDE 10 MG oral Tablet 07-28 00:00: 00 Yes [id number] 10mg Take 1 tablet (10 mg total) by mouth in the morning and 1 tablet (10 mg total) in the evening. Take before meals. Melissa cates Sitagliptin Phosphate (Januvia) 50 MG oral Tablet 07-28 00:00: 00 Yes [id number] 50mg Take 1 tablet (50 mg total) by mouth daily Melissa cates Lansoprazol e 30 MG oral Delayed Release Capsule 07-28 00:00: 00 Yes [id number] 30mg Take 1 capsule (30 mg total) by mouth daily Melissa cates Latanoprost 0.005 % ophthalmic Solution 07-28 00:00: 00 Yes [id number] 1[drp] Place 1 drop into both eyes nightly Melissa cates glipiZIDE 10 MG oral Tablet 07-28 00:00: 00 Yes [id number] 10mg Take 1 tablet (10 mg total) by mouth in the morning and 1 tablet (10 mg total) in the evening. Take before meals. Melissa cates Sitagliptin Phosphate (Januvia) 50 MG oral Tablet 07-28 00:00: 00 Yes [id number] 50mg Take 1 tablet (50 mg total) by mouth daily Melissa cates Lansoprazol e 30 MG oral Delayed Release Capsule 07-28 00:00: 00 Yes [id number] 30mg Take 1 capsule (30 mg total) by mouth daily Melissa cates Latanoprost 0.005 % ophthalmic Solution 07-28 00:00: 00 Yes [id number] 1[drp] Place 1 drop into both eyes nightly Melissa cates glipiZIDE 10 MG oral Tablet 07-28 00:00: 00 Yes [id number] 10mg Take 1 tablet (10 mg total) by mouth in the morning and 1 tablet (10 mg total) in the evening. Take before meals. Melissa cates Latanoprost 0.005 % ophthalmic Solution 07-28 00:00: 00 Yes [id number] 1[drp] Place 1 drop into both eyes nightly Melissa cates glipiZIDE 10 MG oral Tablet 07-28 00:00: 00 Yes [id number] 10mg Take 1 tablet (10 mg total) by mouth in the morning and 1 tablet (10 mg total) in the evening. Take before meals. Melissa cates glipiZIDE 10 MG oral Tablet 07-28 00:00: 00 Yes [id number] 10mg Take 1 tablet (10 mg total) by mouth in the morning and 1 tablet (10 mg total) in the evening. Take before meals. Melissa cates glipiZIDE 10 MG oral Tablet 07-28 00:00: 00 Yes [id number] 10mg Take 1 tablet (10 mg total) by mouth in the morning and 1 tablet (10 mg total) in the evening. Take before meals. Melissa cates glipiZIDE 10 MG oral Tablet 07-28 00:00: 00 Yes [id number] 10mg Take 1 tablet (10 mg total) by mouth in the morning and 1 tablet (10 mg total) in the evening. Take before meals. Melissa cates glipiZIDE 10 MG oral Tablet 07-28 00:00: 00 Yes [id number] 10mg Take 1 tablet (10 mg total) by mouth in the morning and 1 tablet (10 mg total) in the evening. Take before meals. Melissa cates glipiZIDE 10 MG oral Tablet 07-28 00:00: 00 Yes [id number] 10mg Take 1 tablet (10 mg total) by mouth in the morning and 1 tablet (10 mg total) in the evening. Take before meals. Melissa cates glipiZIDE 10 MG oral Tablet 07-28 00:00: 00 Yes [id number] 10mg Take 1 tablet (10 mg total) by mouth in the morning and 1 tablet (10 mg total) in the evening. Take before meals. Meilssa cates glipiZIDE 10 MG oral Tablet 07-28 00:00: 00 Yes [id number] 10mg Take 1 tablet (10 mg total) by mouth in the morning and 1 tablet (10 mg total) in the evening. Take before meals. Melissa cates glipiZIDE 10 MG oral Tablet 07-28 00:00: 00 Yes [id number] 10mg Take 1 tablet (10 mg total) by mouth in the morning and 1 tablet (10 mg total) in the evening. Take before meals. Melissa cates glipiZIDE 10 MG oral Tablet 07-28 00:00: 00 Yes [id number] 10mg Take 1 tablet (10 mg total) by mouth in the morning and 1 tablet (10 mg total) in the evening. Take before meals. Melissa cates glipiZIDE 10 MG oral Tablet 07-28 00:00: 00 Yes [id number] 10mg Take 1 tablet (10 mg total) by mouth in the morning and 1 tablet (10 mg total) in the evening. Take before meals. Melissa cates glipiZIDE 10 MG oral Tablet 07-28 00:00: 00 Yes [id number] 10mg Take 1 tablet (10 mg total) by mouth in the morning and 1 tablet (10 mg total) in the evening. Take before meals. Melissa cates Sitagliptin Phosphate (Januvia) 50 MG oral Tablet 07-28 00:00: 00 08-27 00:00 :00 No [id number] 50mg Take 1 tablet (50 mg total) by mouth daily Melissa cates Lansoprazol e 30 MG oral Delayed Release Capsule 07-28 00:00: 00 08-27 00:00 :00 No [id number] 30mg Take 1 capsule (30 mg total) by mouth daily Melissa cates Atorvastati n Calcium (Lipitor) 10 MG oral Tablet 07-10 00:00: 00 Yes [id number] 3 10mg Take 1 tablet (10 mg total) by mouth nightly Melissa catse Atorvastati n Calcium (Lipitor) 10 MG oral Tablet 07-10 00:00: 00 Yes [id number] 3 10mg Take 1 tablet (10 mg total) by mouth nightly Melissa cates Atorvastati n Calcium (Lipitor) 10 MG oral Tablet 07-10 00:00: 00 Yes [id number] 3 10mg Take 1 tablet (10 mg total) by mouth nightly Melissa cates Atorvastati n Calcium (Lipitor) 10 MG oral Tablet 07-10 00:00: 00 Yes [id number] 3 10mg Take 1 tablet (10 mg total) by mouth nightly Melissa cates Atorvastati n Calcium (Lipitor) 10 MG oral Tablet 07-10 00:00: 00 Yes [id number] 3 10mg Take 1 tablet (10 mg total) by mouth nightly Melissa cates Bilateral: Bevacizumab (AVASTIN) [100 mg/4 mL], 2.5mg - Physician Administere d (J9035) 06-29 19:30: 00 06-29 19:28 :00 No [id number] 101 2.5mg Melissa cates Bilateral: Bevacizumab (AVASTIN) [100 mg/4 mL], 2.5mg - Physician Administere d ([id number]) 06-29 19:30: 00 06-29 19:28 :00 No [id number] 101 2.5mg 2.5 mg, Physician Administer ed, [...] Tablet Delayed Response 06-24 00:00: 00 Yes [id number] 40mg Take 1 tablet (40 mg total) by mouth daily Melissa cates Carvedilol (Coreg) 3.125 MG oral Tablet 06-24 00:00: 00 Yes [id number] 3.125mg Take 1 tablet (3.125 mg total) by mouth in the morning and 1 tablet (3.125 mg total) in the evening. Take with meals. Melissa Quigleypawelmayra Flannery darryn Pantoprazol e Sodium 40 MG oral Tablet Delayed Response 06-24 00:00: 00 Yes [id number] 40mg Take 1 tablet (40 mg total) by mouth daily Melissa Quigleypawelmayra Flannery darryn Levothyroxi ne Sodium 75 MCG oral Tablet 06-24 00:00: 00 Yes [id number] 75ug Take 1 tablet (75 mcg total) by mouth daily Melissa Rudy Griffin Prudencio darryn Latanoprost 0.005 % ophthalmic Solution 06-24 00:00: 00 Yes [id number] 1[drp] Place 1 drop into both eyes nightly Melissa Beatricemayra Elias Prudencio darryn Carvedilol (Coreg) 3.125 MG oral Tablet 06-24 00:00: 00 Yes [id number] 3.125mg Take 1 tablet (3.125 mg total) by mouth in the morning and 1 tablet (3.125 mg total) in the evening. Take with meals. Melissa Sepawelmayra Elias Prudencio darryn Pantoprazol e Sodium 40 MG oral Tablet Delayed Response 06-24 00:00: 00 Yes [id number] 40mg Take 1 tablet (40 mg total) by mouth daily Melissa Beatricemayra Flannery darryn Levothyroxi ne Sodium 75 MCG oral Tablet 06-24 00:00: 00 Yes [id number] 75ug Take 1 tablet (75 mcg total) by mouth daily Melissa Beatrciemayra Elias Jojoa darryn Latanoprost 0.005 % ophthalmic Solution 06-24 00:00: 00 Yes [id number] 1[drp] Place 1 drop into both eyes nightly Melissa Beatricemayra Elias Prudencio darryn Carvedilol (Coreg) 3.125 MG oral Tablet 06-24 00:00: 00 Yes [id number] 3.125mg Take 1 tablet (3.125 mg total) by mouth in the morning and 1 tablet (3.125 mg total) in the evening. Take with meals. Melissa cates Levothyroxi ne Sodium 75 MCG oral Tablet 06-24 00:00: 00 Yes [id number] 75ug Take 1 tablet (75 mcg total) by mouth daily Melissa cates Carvedilol (Coreg) 3.125 MG oral Tablet 06-24 00:00: 00 Yes [id number] 3.125mg Take 1 tablet (3.125 mg total) by mouth in the morning and 1 tablet (3.125 mg total) in the evening. Take with meals. Melissa cates Levothyroxi ne Sodium 75 MCG oral Tablet 06-24 00:00: 00 Yes [id number] 75ug Take 1 tablet (75 mcg total) by mouth daily Melissa cates Carvedilol (Coreg) 3.125 MG oral Tablet 06-24 00:00: 00 Yes [id number] 3.125mg Take 1 tablet (3.125 mg total) by mouth in the morning and 1 tablet (3.125 mg total) in the evening. Take with meals. Melissa cates Levothyroxi ne Sodium 75 MCG oral Tablet 06-24 00:00: 00 Yes [id number] 75ug Take 1 tablet (75 mcg total) by mouth daily Melissa cates Carvedilol (Coreg) 3.125 MG oral Tablet 06-24 00:00: 00 Yes [id number] 3.125mg Take 1 tablet (3.125 mg total) by mouth in the morning and 1 tablet (3.125 mg total) in the evening. Take with meals. Melissa cates Carvedilol (Coreg) 3.125 MG oral Tablet 06-24 00:00: 00 Yes [id number] 3.125mg Take 1 tablet (3.125 mg total) by mouth in the morning and 1 tablet (3.125 mg total) in the evening. Take with meals. Melissa Grant - Jojoa darryn Carvedilol (Coreg) 3.125 MG oral Tablet 2022-0 17 00:00: 00 Yes [id number] 3.125mg Take 1 tablet (3.125 mg total) by mouth in the morning and 1 tablet (3.125 mg total) in the evening. Take with meals. Melissa Grant - Externa l Carvedilol (Coreg) 3.125 MG oral Tablet 2022-0 17 00:00: 00 Yes [id number] 3.125mg Take 1 tablet (3.125 mg total) by mouth in the morning and 1 tablet (3.125 mg total) in the evening. Take with meals. Melissa Grant - Externa darryn Carvedilol (Coreg) 3.125 MG oral Tablet 2022-0 06-24 00:00: 00 Yes [id number] 3.125mg Take 1 tablet (3.125 mg total) by mouth in the morning and 1 tablet (3.125 mg total) in the evening. Take with meals. Melissa Grant - Externa darryn Carvedilol (Coreg) 3.125 MG oral Tablet 2022-0 06-24 00:00: 00 Yes [id number] 3.125mg Take 1 tablet (3.125 mg total) by mouth in the morning and 1 tablet (3.125 mg total) in the evening. Take with meals. Melissa Grant - Externa l Carvedilol (Coreg) 3.125 MG oral Tablet 2022-0 17 00:00: 00 Yes [id number] 3.125mg Take 1 tablet (3.125 mg total) by mouth in the morning and 1 tablet (3.125 mg total) in the evening. Take with meals. Melissa Seybold - Externa l Carvedilol (Coreg) 3.125 MG oral Tablet 2022-0 17 00:00: 00 Yes [id number] 3.125mg Take 1 tablet (3.125 mg total) by mouth in the morning and 1 tablet (3.125 mg total) in the evening. Take with meals. Melissa Seybold - Externa l Carvedilol (Coreg) 3.125 MG oral Tablet 2022-0 17 00:00: 00 Yes [id number] 3.125mg Take 1 tablet (3.125 mg total) by mouth in the morning and 1 tablet (3.125 mg total) in the evening. Take with meals. Melissa cates Carvedilol (Coreg) 3.125 MG oral Tablet 06-24 00:00: 00 Yes [id number] 3.125mg Take 1 tablet (3.125 mg total) by mouth in the morning and 1 tablet (3.125 mg total) in the evening. Take with meals. Melissa cates Carvedilol (Coreg) 3.125 MG oral Tablet 06-24 00:00: 00 Yes [id number] 3.125mg Take 1 tablet (3.125 mg total) by mouth in the morning and 1 tablet (3.125 mg total) in the evening. Take with meals. Melissa cates Carvedilol (Coreg) 3.125 MG oral Tablet 06-24 00:00: 00 Yes [id number] 3.125mg Take 1 tablet (3.125 mg total) by mouth in the morning and 1 tablet (3.125 mg total) in the evening. Take with meals. Melissa cates Carvedilol (Coreg) 3.125 MG oral Tablet 06-24 00:00: 00 11-11 00:00 :00 No [id number] 3.125mg Take 1 tablet (3.125 mg total) by mouth in the morning and 1 tablet (3.125 mg total) in the evening. Take with meals. Melissa cates Iron Sucrose (VENOFER) 300 mg in sodium chloride 0.9 % 250 mL infusion 06-22 17:15: 00 06-22 18:20 :00 No [id number] 300mg 300 mg, at 166.7 mL/hr, Administer [...] Take 1 tablet by mouth daily Melissa Quigleyrobbie cates Na Sulfate-K Sulfate-Mg Sulf (SUPREP BOWEL PREP KIT) 17.5-3.13-1 .6 GM/177ML oral Solution 06-19 00:00: 00 Yes [id number] Instructio ns provided to patient. Follow instructio ns provided by provider. Melissa Quigleypawelmayra Elias cates Na Sulfate-K Sulfate-Mg Sulf (SUPREP BOWEL PREP KIT) 17.5-3.13-1 .6 GM/177ML oral Solution 06-19 00:00: 00 Yes [id number] Instructio ns provided to patient. Follow instructio ns provided by provider. Melissa Quigleyrobbie cates Na Sulfate-K Sulfate-Mg Sulf (SUPREP BOWEL PREP KIT) 17.5-3.13-1 .6 GM/177ML oral Solution 06-19 00:00: 00 Yes [id number] Instructio ns provided to patient. Follow instructio ns provided by provider. Melissa Rudy cates Na Sulfate-K Sulfate-Mg Sulf (SUPREP BOWEL PREP KIT) 17.5-3.13-1 .6 GM/177ML oral Solution 06-19 00:00: 00 Yes [id number] Instructio ns provided to patient. Follow instructio ns provided by provider. Melissa Quigleyrobbie cates Na Sulfate-K Sulfate-Mg Sulf (SUPREP BOWEL PREP KIT) 17.5-3.13-1 .6 GM/177ML oral Solution 06-19 00:00: 00 Yes [id number] Instructio ns provided to patient. Follow instructio ns provided by provider. Melissa cates Na Sulfate-K Sulfate-Mg Sulf (SUPREP BOWEL PREP KIT) 17.5-3.13-1 .6 GM/177ML oral Solution 06-19 00:00: 00 Yes [id number] Instructio ns provided to patient. Follow instructio ns provided by provider. Melissa Seybold - Externa l Na Sulfate-K Sulfate-Mg Sulf (SUPREP BOWEL PREP KIT) 17.5-3.13-1 .6 GM/177ML oral Solution 2023-0 -12 00:00: 00 Yes [id number] Instructio ns provided to patient. Follow instructio ns provided by provider. Melissa Flannery l Na Sulfate-K Sulfate-Mg Sulf (SUPREP BOWEL PREP KIT) 17.5-3.13-1 .6 GM/177ML oral Solution 3-0 5-12 00:00: 00 Yes [id number] Instructio ns provided to patient. Follow instructio ns provided by provider. Melissa Flannery l Na Sulfate-K Sulfate-Mg Sulf (SUPREP BOWEL PREP KIT) 17.5-3.13-1 .6 GM/177ML oral Solution 3-0 -12 00:00: 00 Yes [id number] Instructio ns provided to patient. Follow instructio ns provided by provider. Melissa Quigleypawelmayra cates Na Sulfate-K Sulfate-Mg Sulf (SUPREP BOWEL PREP KIT) 17.5-3.13-1 .6 GM/177ML oral Solution 3-0 -12 00:00: 00 Yes [id number] Instructio ns provided to patient. Follow instructio ns provided by provider. Melissa Quigleypawelmayra Griffin Jojoyudi l Na Sulfate-K Sulfate-Mg Sulf (SUPREP BOWEL PREP KIT) 17.5-3.13-1 .6 GM/177ML oral Solution 3-0 -12 00:00: 00 Yes [id number] Instructio ns provided to patient. Follow instructio ns provided by provider. Melissa Quigleypawelmayra Flannery l Na Sulfate-K Sulfate-Mg Sulf (SUPREP BOWEL PREP KIT) 17.5-3.13-1 .6 GM/177ML oral Solution 3-0 -12 00:00: 00 Yes [id number] Instructio ns provided to patient. Follow instructio ns provided by provider. Melissa Quigleypawelmayra Flannery l Na Sulfate-K Sulfate-Mg Sulf (SUPREP BOWEL PREP KIT) 17.5-3.13-1 .6 GM/177ML oral Solution 2023-0 5-12 00:00: 00 Yes [id number] Instructio ns provided to patient. Follow instructio ns provided by provider. Melissa Uribea l Na Sulfate-K Sulfate-Mg Sulf (SUPREP BOWEL PREP KIT) 17.5-3.13-1 .6 GM/177ML oral Solution 0 12 00:00: 00 Yes [id number] Instructio ns provided to patient. Follow instructio ns provided by provider. Melissa Quigleypawelmayra cates Na Sulfate-K Sulfate-Mg Sulf (SUPREP BOWEL PREP KIT) 17.5-3.13-1 .6 GM/177ML oral Solution 0 12 00:00: 00 Yes [id number] Instructio ns provided to patient. Follow instructio ns provided by provider. Melissa Quigleypawelmayra cates Na Sulfate-K Sulfate-Mg Sulf (SUPREP BOWEL PREP KIT) 17.5-3.13-1 .6 GM/177ML oral Solution 2022-0 06-19 00:00: 00 Yes [id number] Instructio ns provided to patient. Follow instructio ns provided by provider. Melissa Sepawelmayra Griffin Jojoyudi cates Na Sulfate-K Sulfate-Mg Sulf (SUPREP BOWEL PREP KIT) 17.5-3.13-1 .6 GM/177ML oral Solution 0 12 00:00: 00 Yes [id number] Instructio ns provided to patient. Follow instructio ns provided by provider. Melissa Flannery darryn Na Sulfate-K Sulfate-Mg Sulf (SUPREP BOWEL PREP KIT) 17.5-3.13-1 .6 GM/177ML oral Solution 0 06-19 00:00: 00 Yes [id number] Instructio ns provided to patient. Follow instructio ns provided by provider. Melissa robbie Elias Prudencio darryn Na Sulfate-K Sulfate-Mg Sulf (SUPREP BOWEL PREP KIT) 17.5-3.13-1 .6 GM/177ML oral Solution 12 00:00: 00 11-05 00:00 :00 No [id number] Instructio ns provided to patient. Follow instructio ns provided by provider. Melissa cates Latanoprost 0.005 % ophthalmic Solution 2022-0 -10 00:00: 00 Yes [id number] 1[drp] Place 1 drop into both eyes nightly Melissa Seybold - Externa l Latanoprost 0.005 % ophthalmic Solution 06-17 00:00: 00 Yes [id number] 1[drp] Place 1 drop into both eyes nightly Melissa Grant - Externa l Latanoprost 0.005 % ophthalmic Solution 06-17 00:00: 00 Yes [id number] 1[drp] Place 1 drop into both eyes nightly Melissa Grant - Externa l Latanoprost 0.005 % ophthalmic Solution 06-17 00:00: 00 Yes [id number] 1[drp] Place 1 drop into both eyes nightly Melissa Barronold - Externa l Iron Sucrose (VENOFER) 300 mg in sodium chloride 0.9 % 250 mL infusion 06-09 17:15: 00 06-09 18:50 :00 No [id number] 300mg 300 mg, at 166.7 mL/hr, Administer over 90 Minutes, intravenou s, ONCE, On Wed06/09/22 at 1215, For 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 &nbs p;May repeat treatment if clinically indicated< br> Melissa Grant - Externa l Furosemide (LASIX) 20 MG oral Tablet 05-30 00:00: 00 Yes Melissa Quigleypawelmayra - Externa l Furosemide (LASIX) 20 MG oral Tablet 05-30 00:00: 00 Yes Melissa Grant - Externa l Furosemide (LASIX) 20 MG oral Tablet 05-30 00:00: 00 Yes Melissa Barronold - Externa l Furosemide (LASIX) 20 MG oral Tablet 05-30 00:00: 00 06-24 00:00 :00 No Melissa Beatricemayra - Externa l Iron Sucrose (VENOFER) 300 mg in sodium chloride 0.9 % 250 mL infusion 05-26 16:45: 00 05-26 18:06 :00 No [id number] 300mg 300 mg, at 166.7 mL/hr, Administer [...] % ophthalmic Solution 05-12 00:00: 00 Yes [id number] 1[drp] Place 1 drop into both eyes nightly Melissa Seybold - Externa l Latanoprost 0.005 % ophthalmic Solution 05-12 00:00: 00 Yes [id number] 1[drp] Place 1 drop into both eyes nightly Melissa Seybold - Externa l Multiple Vitamins-Ir on (MULTIVITAM IN PLUS IRON ADULT OR) 05-11 14:21: 53 Yes 1{tbl} Take 1 tablet by mouth daily Melissa Sepawelold - Externa l Januvia 50 MG oral Tablet 05-10 00:00: 00 Yes [id number] TAKE 1 TABLET BY MOUTH EVERY DAY Melissa Seybold - Externa l Januvia 50 MG oral Tablet 05-10 00:00: 00 Yes [id number] TAKE 1 TABLET BY MOUTH EVERY DAY Melissa Seybold - Externa l Januvia 50 MG oral Tablet 05-10 00:00: 00 Yes [id number] TAKE 1 TABLET BY MOUTH EVERY DAY Melissa Seybold - Externa l Januvia 50 MG oral Tablet 05-10 00:00: 00 Yes [id number] TAKE 1 TABLET BY MOUTH EVERY DAY Melissa Seybold - Externa l Januvia 50 MG oral Tablet 05-10 00:00: 00 Yes [id number] TAKE 1 TABLET BY MOUTH EVERY DAY Melissa cates Januvia 50 MG oral Tablet 05-10 00:00: 00 Yes [id number] TAKE 1 TABLET BY MOUTH EVERY DAY Melissa cates Januvia 50 MG oral Tablet 05-10 00:00: 00 Yes [id number] TAKE 1 TABLET BY MOUTH EVERY DAY Melissa cates Januvia 50 MG oral Tablet 05-10 00:00: 00 Yes [id number] TAKE 1 TABLET BY MOUTH EVERY DAY Melissa cates Januvia 50 MG oral Tablet 05-10 00:00: 00 Yes [id number] TAKE 1 TABLET BY MOUTH EVERY DAY Melissa cates Multiple Vitamins-Ir on (MULTIVITAM IN PLUS IRON ADULT OR) 05-08 10:04: 06 Yes 1{tbl} Take 1 tablet by mouth daily Melissa cates Rosuvastati n Calcium 40 MG oral Tablet 05-08 00:00: 00 Yes [id number] 3 40mg Take 1 tablet (40 mg total) by mouth at bedtime Melissa cates glipiZIDE 10 MG oral Tablet 05-08 00:00: 00 Yes [id number] 10mg Take 1 tablet (10 mg total) by mouth in the morning and 1 tablet (10 mg total) in the evening. Take before meals. Melissa cates Sitagliptin Phosphate 50 MG oral Tablet 05-08 00:00: 00 Yes [id number] 50mg Take 1 tablet (50 mg total) by mouth daily Melissa cates Rosuvastati n Calcium 40 MG oral Tablet 05-08 00:00: 00 Yes [id number] 3 40mg Take 1 tablet (40 mg total) by mouth at bedtime Melissa cates glipiZIDE 10 MG oral Tablet 05-08 00:00: 00 Yes [id number] 10mg Take 1 tablet (10 mg total) by mouth in the morning and 1 tablet (10 mg total) in the evening. Take before meals. Melissa cates Rosuvastati n Calcium 40 MG oral Tablet 05-08 00:00: 00 Yes [id number] 3 40mg Take 1 tablet (40 mg total) by mouth at bedtime Melissa cates glipiZIDE 10 MG oral Tablet 05-08 00:00: 00 Yes [id number] 10mg Take 1 tablet (10 mg total) by mouth in the morning and 1 tablet (10 mg total) in the evening. Take before meals. Melissa cates Rosuvastati n Calcium 40 MG oral Tablet 05-08 00:00: 00 Yes [id number] 3 40mg Take 1 tablet (40 mg total) by mouth at bedtime Melissa cates glipiZIDE 10 MG oral Tablet 05-08 00:00: 00 Yes [id number] 10mg Take 1 tablet (10 mg total) by mouth in the morning and 1 tablet (10 mg total) in the evening. Take before meals. Melissa cates Rosuvastati n Calcium 40 MG oral Tablet 05-08 00:00: 00 Yes [id number] 3 40mg Take 1 tablet (40 mg total) by mouth at bedtime Melissa cates glipiZIDE 10 MG oral Tablet 05-08 00:00: 00 Yes [id number] 10mg Take 1 tablet (10 mg total) by mouth in the morning and 1 tablet (10 mg total) in the evening. Take before meals. Melissa cates Rosuvastati n Calcium 40 MG oral Tablet 05-08 00:00: 00 Yes [id number] 3 40mg Take 1 tablet (40 mg total) by mouth at bedtime Melissa cates glipiZIDE 10 MG oral Tablet 05-08 00:00: 00 Yes [id number] 10mg Take 1 tablet (10 mg total) by mouth in the morning and 1 tablet (10 mg total) in the evening. Take before meals. Melissa cates Rosuvastati n Calcium 40 MG oral Tablet 05-08 00:00: 00 Yes [id number] 3 40mg Take 1 tablet (40 mg total) by mouth at bedtime Melissa cates glipiZIDE 10 MG oral Tablet 05-08 00:00: 00 Yes [id number] 10mg Take 1 tablet (10 mg total) by mouth in the morning and 1 tablet (10 mg total) in the evening. Take before meals. Melissa cates glipiZIDE 10 MG oral Tablet 05-08 00:00: 00 Yes [id number] 10mg Take 1 tablet (10 mg total) by mouth in the morning and 1 tablet (10 mg total) in the evening. Take before meals. Melissa cates glipiZIDE 10 MG oral Tablet 05-08 00:00: 00 Yes [id number] 10mg Take 1 tablet (10 mg total) by mouth in the morning and 1 tablet (10 mg total) in the evening. Take before meals. Melissa cates glipiZIDE 10 MG oral Tablet 05-08 00:00: 00 Yes [id number] 10mg Take 1 tablet (10 mg total) by mouth in the morning and 1 tablet (10 mg total) in the evening. Take before meals. Melissa cates Rosuvastati n Calcium 40 MG oral Tablet 05-08 00:00: 00 06-24 00:00 :00 No [id number] 3 40mg Take 1 tablet (40 mg total) by mouth at bedtime Melissa cates Levothyroxi ne Sodium 75 MCG oral Tablet 05-05 00:00: 00 Yes [id number] 75ug Take 1 tablet (75 mcg total) by mouth daily Melissa cates Levothyroxi ne Sodium 75 MCG oral Tablet 05-05 00:00: 00 Yes [id number] 75ug Take 1 tablet (75 mcg total) by mouth daily Melissa cates Levothyroxi ne Sodium 75 MCG oral Tablet 05-05 00:00: 00 Yes [id number] 75ug Take 1 tablet (75 mcg total) by mouth daily Melissa cates Levothyroxi ne Sodium 75 MCG oral Tablet 05-05 00:00: 00 Yes [id number] 75ug Take 1 tablet (75 mcg total) by mouth daily Melissa cates Levothyroxi ne Sodium 75 MCG oral Tablet 05-05 00:00: 00 Yes [id number] 75ug Take 1 tablet (75 mcg total) by mouth daily Melissa cates Levothyroxi ne Sodium 75 MCG oral Tablet 05-05 00:00: 00 Yes [id number] 75ug Take 1 tablet (75 mcg total) by mouth daily Melissa cates Levothyroxi ne Sodium 75 MCG oral Tablet 05-05 00:00: 00 Yes [id number] 75ug Take 1 tablet (75 mcg total) by mouth daily Melissa cates Levothyroxi ne Sodium 75 MCG oral Tablet 05-05 00:00: 00 Yes [id number] 75ug Take 1 tablet (75 mcg total) by mouth daily Melissa cates Levothyroxi ne Sodium 75 MCG oral Tablet 05-05 00:00: 00 Yes [id number] 75ug Take 1 tablet (75 mcg total) [...] MG oral Tablet 05-01 00:00: 00 Yes [id number] 3 10mg Take 1 tablet (10 mg total) by mouth daily (before a meal) Melissa cates Sitagliptin Phosphate 100 MG oral Tablet 05-01 00:00: 00 Yes [id number] 3 100mg Take 1 tablet (100 mg total) by mouth daily Melissa cates Furosemide (LASIX) 20 MG oral Tablet 05-01 00:00: 00 Yes [id number] 40mg Take 2 tablets (40 mg total) by mouth daily Melissa Uribea darryn glipiZIDE 10 MG oral Tablet 05-01 00:00: 00 Yes [id number] 3 10mg Take 1 tablet (10 mg total) by mouth daily (before a meal) Melissa cates Sitagliptin Phosphate 100 MG oral Tablet 05-01 00:00: 00 Yes [id number] 3 100mg Take 1 tablet (100 mg total) by mouth daily Melissa cates Furosemide (LASIX) 20 MG oral Tablet 05-01 00:00: 00 Yes [id number] 40mg Take 2 tablets (40 mg total) by mouth daily Melissa cates glipiZIDE 10 MG oral Tablet 05-01 00:00: 00 05-08 00:00 :00 No [id number] 3 10mg Take 1 tablet (10 mg total) by mouth daily (before a meal) Melissa cates Sitagliptin Phosphate 100 MG oral Tablet 05-01 00:00: 00 05-08 00:00 :00 No [id number] 3 100mg Take 1 tablet (100 mg total) by mouth daily Melissa cates Furosemide (LASIX) 20 MG oral Tablet 05-01 00:00: 00 05-08 00:00 :00 No [id number] 40mg Take 2 tablets (40 mg total) by mouth daily Melissa cates Pantoprazol e Sodium 40 MG oral Tablet Delayed Response 2022-0 3-05 00:00: 00 Yes 40mg Take 40 mg by mouth daily Melissa Uribea darryn Pantoprazol e Sodium 40 MG oral Tablet Delayed Response 2022-0 3-05 00:00: 00 Yes 40mg Take 40 mg by mouth daily Melissa Uribea darryn Pantoprazol e Sodium 40 MG oral Tablet Delayed Response 0 3-05 00:00: 00 Yes 40mg Take 1 tablet (40 mg total) by mouth daily Melissa Uribea darryn Pantoprazol e Sodium 40 MG oral Tablet Delayed Response 2023-0 3-05 00:00: 00 Yes 40mg Take 1 tablet [...] MG oral Tablet 04-09 00:00: 00 Yes [id number] 325mg Take 1 tablet (325 mg total) by mouth 2 times daily Melissa cates Ferrous Sulfate (Iron) 325 (65 Fe) MG oral Tablet 04-09 00:00: 00 Yes [id number] 325mg Take 1 tablet (325 mg total) by mouth 2 times daily Melissa cates Ferrous Sulfate (Iron) 325 (65 Fe) MG oral Tablet 04-09 00:00: 00 Yes [id number] 325mg Take 1 tablet (325 mg total) by mouth 2 times daily Melissa cates Ferrous Sulfate (Iron) 325 (65 Fe) MG oral Tablet 04-09 00:00: 00 05-08 00:00 :00 No [id number] 325mg Take 1 tablet (325 mg total) by mouth 2 times daily Melissa cates Levothyroxi ne Sodium 50 MCG oral Tablet 04-07 00:00: 00 Yes [id number] 50ug Take 1 tablet (50 mcg total) by mouth daily Melissa cates Levothyroxi ne Sodium 50 MCG oral Tablet 04-07 00:00: 00 Yes [id number] 50ug Take 1 tablet (50 mcg total) by mouth daily Melissa cates ASPIRIN 81 OR 04-03 15:32: 05 04-03 00:00 :00 No Take [...] Take 25 mcg by mouth daily Melissa Uribea darryn Aspirin (Aspirin 81) 81 MG oral Tablet Delayed Response 0 04-03 00:00: 00 Yes [id number] 81mg Take 1 tablet (81 mg total) by mouth daily Melissa Uribea darryn Aspirin (Aspirin 81) 81 MG oral Tablet Delayed Response 0 04-03 00:00: 00 Yes [id number] 81mg Take 1 tablet (81 mg total) by mouth daily Melissa Griffin Externa darryn Aspirin (Aspirin 81) 81 MG oral Tablet Delayed Response 0 04-03 00:00: 00 Yes [id number] 81mg Take 1 tablet (81 mg total) by mouth daily Melissa Griffin Externa darryn Aspirin (Aspirin 81) 81 MG oral Tablet Delayed Response 0 04-03 00:00: 00 Yes [id number] 81mg Take 1 tablet (81 mg total) by mouth daily Melissa Griffin Externa darryn Aspirin (Aspirin 81) 81 MG oral Tablet Delayed Response 0 04-03 00:00: 00 05-08 00:00 :00 No [id number] 81mg Take 1 tablet (81 mg total) by mouth daily Melissa Seybold - Externa l SITagliptin (JANUVIA) 100 mg tablet 09-30 16:27: 53 09-30 00:00 :00 No 100mg Take 100 mg by mouth in the morning. [facility] glipiZIDE XL (GLUCOTROL XL) 10 mg 24 hr tablet 09-30 16:27: 53 09-30 00:00 :00 No 10mg Take 10 mg by mouth in the morning and 10 mg in the evening. [facility] rosuvastati n 20 mg tablet 09-30 16:17: 42 09-30 00:00 :00 No 20mg Take 20 mg by mouth at bedtime. [facility] lisinopriL 5 mg tablet 09-30 16:17: 29 09-30 00:00 :00 No 5mg Take 5 mg by mouth in the morning. [facility] furosemide 20 mg tablet 09-30 15:17: 03 Yes 20mg Take 20 mg by mouth in the morning. [facility] esomeprazol e (NEXIUM) 20 mg capsule 09-30 15:17: 03 Yes 20mg Take 20 mg by mouth daily before a meal. [facility] LO ASPIRIN ORAL 09-30 15:17: 03 Yes Take by mouth. [facility] furosemide 20 mg tablet 09-30 15:17: 03 Yes 20mg Take 20 mg by mouth in the morning. [facility] esomeprazol e (NEXIUM) 20 mg capsule 09-30 15:17: 03 Yes 20mg Take 20 mg by mouth daily before a meal. [facility] LO ASPIRIN ORAL 09-30 15:17: 03 Yes Take by mouth. [facility] furosemide 20 mg tablet 09-30 15:17: 03 Yes 20mg Take 20 mg by mouth in the morning. [facility] esomeprazol e (NEXIUM) 20 mg capsule 09-30 15:17: 03 Yes 20mg Take 20 mg by mouth daily before a meal. [facility] LO ASPIRIN ORAL 09-30 15:17: 03 Yes Take by mouth. [facility] Lisinopril 5 MG oral Tablet 09-30 00:00: 00 Yes 5mg Take 5 mg by mouth daily Melissa Grant - Jojoa darryn Rosuvastati n Calcium 20 MG oral Tablet 09-30 00:00: 00 Yes 40mg Take 40 mg by mouth at bedtime Melissa cates Sitagliptin Phosphate 100 MG oral Tablet 09-30 00:00: 00 Yes 100mg Take 100 mg by mouth daily Melissa Uribea darryn Lisinopril 5 MG oral Tablet 09-30 00:00: 00 Yes 5mg Take 5 mg by mouth daily Melissa Grant - Jojoa darryn Rosuvastati n Calcium 20 MG oral Tablet 09-30 00:00: 00 Yes 40mg Take 40 mg by mouth at bedtime Melissa cates Sitagliptin Phosphate 100 MG oral Tablet 09-30 00:00: 00 Yes 100mg Take 100 mg by mouth daily Melissa Uribea darryn Lisinopril 5 MG oral Tablet 09-30 00:00: 00 Yes 5mg Take 5 mg by mouth daily Melissa Grant - Jojoa darryn Rosuvastati n Calcium 20 MG oral Tablet 09-30 00:00: 00 Yes 40mg Take 40 mg by mouth at bedtime Melissa Uribea darryn Lisinopril 5 MG oral Tablet 09-30 00:00: 00 Yes 5mg Take 5 mg by mouth daily Melissa Uribea darryn Rosuvastati n Calcium 20 MG oral Tablet 09-30 00:00: 00 Yes 40mg Take 40 mg by mouth at bedtime Melissa Grant - Jojoa darryn lisinopriL 5 mg tablet 09-30 00:00: 00 Yes [id number] 5mg Take 1 tablet by mouth in the morning. [facility] gabapentin 300 mg capsule 09-30 00:00: 00 Yes [id number] 300mg Take 1 capsule by mouth in the morning and 1 capsule at noon and 1 capsule in the evening. [facility] rosuvastati n 20 mg tablet 09-30 00:00: 00 Yes [id number] 20mg Take 1 tablet by mouth at bedtime. [facility] amitriptyli ne 25 mg tablet 09-30 00:00: 00 Yes [id number] 25mg Take 1 tablet by mouth at bedtime. [facility] SITagliptin (JANUVIA) 100 mg tablet 09-30 00:00: 00 Yes [id number] 100mg Take 1 tablet by mouth in the morning. [facility] lisinopriL 5 mg tablet 09-30 00:00: 00 Yes [id number] 5mg Take 1 tablet by mouth in the morning. [facility] gabapentin 300 mg capsule 09-30 00:00: 00 Yes [id number] 300mg Take 1 capsule by mouth in the morning and 1 capsule at noon and 1 capsule in the evening. [facility] rosuvastati n 20 mg tablet 09-30 00:00: 00 Yes [id number] 20mg Take 1 tablet by mouth at bedtime. [facility] amitriptyli ne 25 mg tablet 09-30 00:00: 00 Yes [id number] 25mg Take 1 tablet by mouth at bedtime. [facility] SITagliptin (JANUVIA) 100 mg tablet 09-30 00:00: 00 Yes [id number] 100mg Take 1 tablet by mouth in the morning. [facility] lisinopriL 5 mg tablet 09-30 00:00: 00 Yes [id number] 5mg Take 1 tablet by mouth in the morning. [facility] gabapentin 300 mg capsule 09-30 00:00: 00 Yes [id number] 300mg Take 1 capsule by mouth in the morning and 1 capsule at noon and 1 capsule in the evening. [facility] rosuvastati n 20 mg tablet 09-30 00:00: 00 Yes [id number] 20mg Take 1 tablet by mouth at bedtime. [facility] SITagliptin (JANUVIA) 100 mg tablet 09-30 00:00: 00 Yes [id number] 100mg Take 1 tablet by mouth in the morning. [facility] amitriptyli ne 25 mg tablet 09-30 00:00: 00 02-24 00:00 :00 No [id number] 25mg Take 1 tablet by mouth at bedtime. [facility] Lisinopril 5 MG oral Tablet 09-30 00:00: [...] 09-30 00:00: 00 03-30 05:59 :00 No [id number] 10mg Take 1 tablet by mouth in the morning and 1 tablet in the evening. Do all this for 180 days. [facility] glipiZIDE XL (GLUCOTROL XL) 10 mg 24 hr tablet 09-30 00:00: 00 03-30 05:59 :00 No [id number] 10mg Take 1 tablet by mouth in the morning and 1 tablet in the evening. Do all this for 180 days. [facility] furosemide 20 mg tablet 616 00:00: 00 No 1mg furosemide 20 mg [...] Unknown 4 00:00: 00 No Dose Unknown 0 4 00:00: 00 No Dose Unknown 05-09 00:00: 00 No Dose Unknown 4 00:00: 00 No Dose Unknown 05-09 00:00: 00 No ondansetron 4 mg disintegrat ing tablet 3 00:00: 00 Yes [id number] 4mg Take 1 tablet by mouth every 8 (eight) hours as needed for Nausea and Vomiting (N/V). [facility] ondansetron 4 mg disintegrat ing tablet 04-08 00:00: 00 Yes [id number] 4mg Take 1 tablet by mouth every 8 (eight) hours as needed for Nausea and Vomiting (N/V). [facility] ondansetron 4 mg disintegrat ing tablet 04-08 00:00: 00 Yes [id number] 4mg Take 1 tablet by mouth every 8 (eight) hours as needed for Nausea and Vomiting (N/V). [facility] lisinopril 5 mg tablet 2020-02 2- 00:00: 00 No 1mg rosuvastati n 20 mg tablet 2020-02 2-15 00:00: 00 No 1mg furosemide 20 mg tablet 2020-02 2-15 00:00: 00 No 1mg lisinopril 5 mg tablet 2020-02 2-15 00:00: 00 No 1mg rosuvastati n 20 mg tablet 2020-02 2-15 00:00: 00 No 1mg furosemide 20 mg tablet 2020-02 2-15 00:00: 00 No 1mg Januvia 50 mg tablet 8- 00:00: 00 No 1mg glipizide ER 10 mg tablet, extended release 24 hr 10-02 00:00: 00 No 1mg Dose Unknown 8- 00:00: 00 No Macrobid 100 mg capsule 8- 00:00: 00 No 1mg Januvia 50 mg tablet 8- 00:00: 00 No 1mg glipizide ER 10 mg tablet, extended release 24 hr 10-02 00:00: 00 No 1mg Dose Unknown 10-02 00:00: 00 No Macrobid 100 mg capsule 10-02 00:00: 00 No 1mg Macrobid 100 mg capsule 6 00:00: 00 No 1mg Macrobid 100 mg capsule 6 00:00: 00 No 1mg ibuprofen 600 mg [...] 05-08 00:00: 00 09-30 00:00 :00 No [id number] 9109 1{tbl} Take 1 tablet by mouth every 12 (twelve) hours. [facility] glipiZIDE 5 mg tablet 05-08 00:00: 00 09-30 00:00 :00 No [id number] 9109 5mg Take 1 tablet by mouth daily. [facility] levothyroxi ne 25 mcg tablet 08-19 00:00: [...] External COVID-19 VACCINE MODERNA 6MONTHS-5YEARS 2021-01-22 00:00:00 Radha Griffin External COVID-19 VACCINE MODERNA 6MONTHS-5YEARS 2021-01-22 00:00:00 Radha Ugalde COVID-19 VACCINE MODERNA 6MONTHS-5YEARS 2021-01-22 00:00:00 Completed Melissa Ugalde Moderna COVID-19 Vaccine 2021-01-22 00:00:00 Completed Moderna COVID-19 Vaccine 2021-01-22 00:00:00 Completed Covid-19 Vaccine Moderna (Spikevax), Mrna-lnp, Isaiah Protein, Pf 2020-07-29 00:00:00 Completed Melissa ybold - External Covid-19 Vaccine Moderna (Spikevax), Mrna-lnp, [...] Mrna-lnp, Isaiah Protein, Pf 2020-07-29 [facility] Moderna (Spikevax), Mrna-lnp, Isaiah Protein, Pf 2020-07-29 00:[facility] Moderna (Spikevax), Mrna-lnp, [...] Nasal, Unspecified Formulation 2017-11-27 00:00:00 Completed Melissa Quigleyybold - External Covid-19 Vaccine Moderna (Spikevax), Mrna-lnp, Isaiah Protein, Pf Unknown Completed Melissa Quigleyybold - External COVID-19 VACCINE MODERNA 6MONTHS-5YEARS Unknown Completed Melissa Quigleyybol d - External COVID-19 VACCINE MODERNA 6MONTHS-5YEARS Unknown Completed Melissa Seybol d - External COVID-19 VACCINE MODERNA 6MONTHS-5YEARS Unknown Completed Melissa Quigleyybol d - External Influenza Nasal, Unspecified Formulation Unknown Completed Melissa Quigleyybold - External Covid-19 Vaccine Moderna (Spikevax), Mrna-lnp, Isaiah Protein, Pf Unknown Completed Melissa Seybold - External Covid-19 Vaccine Moderna (Spikevax), Mrna-lnp, Isaiah Protein, Pf Unknown Completed Melissa Quigleyybold - External Influenza, Seasonal, Injectable, Preservative Free Unknown Completed Melissa Sey bold - External Covid-19 Vaccine Moderna (Spikevax), Mrna-lnp, Isaiah Protein, Pf Unknown Completed Melissa Seybold - External COVID-19 VACCINE MODERNA 6MONTHS-5YEARS Unknown Completed Melissa Quigleyybol d - External COVID-19 VACCINE MODERNA 6MONTHS-5YEARS [...] Influenza, Seasonal, Injectable, Preservative Free Unknown Completed [facility] bold - External Covid-19 Vaccine Moderna (Spikevax), [...] Influenza, Seasonal, Injectable, Preservative Free Unknown Completed [facility] bold - External Covid-19 Vaccine Moderna (Spikevax), Mrna-lnp, Isaiah Protein, Pf [facility] VACCINE MODERNA 6MONTHS-5YEARS Unknown Completed Melissa Seybol d - External COVID-19 VACCINE MODERNA 6MONTHS-5YEARS Unknown Completed Melissa Seybol d - External COVID-19 VACCINE MODERNA 6MONTHS-5YEARS Unknown Completed Melissa Seybol d - External Influenza Nasal, Unspecified Formulation Unknown Completed Melissa Seybold - External Influenza, Seasonal, Injectable, Preservative Free Unknown Completed [facility] bold - External Covid-19 Vaccine Moderna (Spikevax), [...] Influenza, Seasonal, Injectable, Preservative Free Unknown Completed [facility] bold - External Covid-19 Vaccine Moderna (Spikevax), Mrna-lnp, Isaiah Protein, Pf Unknown Completed Melissa Seybold - External COVID-19 VACCINE MODERNA 6MONTHS-5YEARS Unknown Completed Melissa Seybol d - External COVID-19 VACCINE MODERNA 6MONTHS-5YEARS Unknown [facility] - [facility] VACCINE MODERNA 6MONTHS-5YEARS Unknown [facility] Influ[facility] Nasal, Unspecified Formulation Unknown [facility] Influenza, Seasonal, Injectable, Preservative Free Unknown Completed [facility] bold - External Covid-19 Vaccine Moderna (Spikevax), Mrna-lnp, Isaiah Protein, Pf [facility] VACCINE MODERNA 6MONTHS-5YEARS Unknown [facility] COVID-19 VACCINE MODERNA 6MONTHS-5YEARS Unknown [facility] External COVID-19 VACCINE MODERNA 6MONTHS-5YEARS Unknown [facility] Influenza Nasal, Unspecified Formulation Unknown [facility] Influenza, Seasonal, Injectable, Preservative Free Unknown Completed Melissa emelyn - External Covid-19 Vaccine Moderna (Spikevax), Mrna-lnp, Isaiah Protein, Pf Unknown [facility] COVID-19 VACCINE MODERNA 6MONTHS-5YEARS Unknown [facility] COVID-19 VACCINE MODERNA 6MONTHS-5YEARS Unknown Completed Melissa Seybol d - External COVID-19 VACCINE MODERNA 6MONTHS-5YEARS Unknown Completed Melissa Seybol d - External Influenza Nasal, Unspecified Formulation Unknown Completed Melissa Seybold - External Influenza, Seasonal, Injectable, Preservative Free Unknown Completed [facility] bold - External Covid-19 Vaccine Moderna (Spikevax), Mrna-lnp, Isaiah Protein, Pf Unknown Completed Melissa Seybold - External COVID-19 VACCINE MODERNA 6MONTHS-5YEARS Unknown Completed Melissa Seybol d - External COVID-19 VACCINE MODERNA 6MONTHS-5YEARS Unknown [facility] COVID-[facility] VACCINE MODERNA 6MONTHS-5YEARS Unknown [facility] Influenza Nasal, Unspecified Formulation Unknown [facility] Influenza, Seasonal, Injectable, Preservative Free Unknown Completed [facility] - External Covid-19 Vaccine Moderna (Spikevax), Mrna-lnp, Isaiah Protein, Pf Unknown Completed [facility] - External COVID-19 VACCINE MODERNA 6MONTHS-5YEARS Unknown [facility] COVID-19 VACCINE MODERNA 6MONTHS-5YEARS Unknown [facility] COVID-19 VACCINE MODERNA 6MONTHS-5YEARS Unknown [facility] - External Influenza Nasal, Unspecified Formulation Unknown Completed [facility] - External Influenza, Seasonal, Injectable, Preservative Free Unknown Completed [facility] - External Covid-19 Vaccine Moderna (Spikevax), Mrna-lnp, Isaiah Protein, Pf Unknown Completed [facility] - External COVID-19 VACCINE MODERNA 6MONTHS-5YEARS Unknown Completed [facility] d - External COVID-19 VACCINE MODERNA 6MONTHS-5YEARS Unknown [facility] COVID-19 VACCINE MODERNA 6MONTHS-5YEARS Unknown [facility] - External Influenza Nasal, Unspecified Formulation Unknown Completed [facility] - External Covid-19 Vaccine Moderna (Spikevax), Mrna-lnp, Isaiah Protein, Pf Unknown Completed [facility] - External Covid-19 Vaccine Moderna (Spikevax), Mrna-lnp, Isaiah Protein, Pf Unknown Completed [facility] - External Influenza, Seasonal, Injectable, Preservative Free Unknown Completed [facility] - External Covid-19 Vaccine Moderna (Spikevax), Mrna-lnp, Isaiah Protein, Pf Unknown Completed [facility] - External COVID-19 VACCINE MODERNA 6MONTHS-5YEARS Unknown [facility] COVID-19 VACCINE MODERNA 6MONTHS-5YEARS Unknown Completed Melissa Seybol d - External COVID-19 VACCINE MODERNA 6MONTHS-5YEARS Unknown Completed [facility] - External Influenza Nasal, Unspecified Formulation Unknown Completed [facility] External Covid-19 Vaccine Moderna (Spikevax), Mrna-lnp, Isaiah Protein, Pf Unknown Completed [facility] External Covid-19 Vaccine Moderna (Spikevax), Mrna-lnp, Isaiah Protein, Pf Unknown Completed [facility] External Influenza, Seasonal, Injectable, Preservative Free Unknown Completed [facility] External Covid-19 Vaccine Moderna (Spikevax), Mrna-lnp, Isaiah Protein, Pf Unknown Completed [facility] External COVID-19 VACCINE MODERNA 6MONTHS-5YEARS Unknown Completed [facility] d - External COVID-19 VACCINE MODERNA 6MONTHS-5YEARS Unknown Completed [facility] - External COVID-19 VACCINE MODERNA 6MONTHS-5YEARS Unknown Completed [facility] - External Influenza Nasal, Unspecified Formulation Unknown Completed [facility] External Covid-19 Vaccine Moderna (Spikevax), Mrna-lnp, Isaiah Protein, Pf Unknown Completed [facility] Covid-19 Vaccine Moderna (Spikevax), Mrna-lnp, Isaiah Protein, Pf Unknown Completed [facility] Influenza, Seasonal, Injectable, Preservative Free Unknown Completed [facility] Covid-19 Vaccine Moderna (Spikevax), Mrna-lnp, Isaiah Protein, Pf Unknown Completed [facility] External COVID-19 VACCINE MODERNA 6MONTHS-5YEARS Unknown Completed [facility] - External COVID-19 VACCINE MODERNA 6MONTHS-5YEARS Unknown Completed [facility] d - External COVID-19 VACCINE MODERNA 6MONTHS-5YEARS Unknown Completed [facility] - External Influenza Nasal, Unspecified Formulation Unknown Completed [facility] External Covid-19 Vaccine Moderna (Spikevax), Mrna-lnp, Isaiah Protein, Pf Unknown Completed [facility] External Covid-19 Vaccine Moderna (Spikevax), Mrna-lnp, Isaiah Protein, Pf Unknown Completed Melissa Seybold - External Influenza, Seasonal, Injectable, Preservative Free Unknown Completed Melissa dunaway - External Covid-19 Vaccine Moderna (Spikevax), Mrna-lnp, Isaiah Protein, Pf Unknown Completed Melissa Grant - External COVID-19 VACCINE MODERNA 6MONTHS-5YEARS Unknown Completed Melissa Barreto d - External COVID-19 VACCINE MODERNA 6MONTHS-5YEARS Unknown Completed Melissa Barronol d - External COVID-19 VACCINE MODERNA 6MONTHS-5YEARS Unknown Completed Melissa Barreto d - External Influenza Nasal, Unspecified Formulation Unknown Completed Melissa Grant - External Covid-19 Vaccine Moderna (Spikevax), Mrna-lnp, Isaiah Protein, Pf Unknown Completed Melissa Grant - External Covid-19 Vaccine Moderna (Spikevax), Mrna-lnp, Isaiah Protein, Pf Unknown Completed Melissa Griffin External Influenza, Seasonal, Injectable, Preservative Free Unknown Completed Melissa dunaway - External Vital Signs Vital Name Observation Time Observation Value Comments S ource Systolic blood pressure 2023-02-24 07:15:00 156 mm[Hg] [facility] Diastolic blood pressure 2023-02-24 07:15:00 88 mm[Hg] [facility] Heart rate 2023-02-24 07:15:00 97 /min [facility] Body temperature 2023-02-24 07:15:00 36.78 Nannette [facility] Respiratory rate 2023-02-24 07:15:00 13 /min [facility] Oxygen saturation in Arterial blood by Pulse oximetry 2023-02-24 07:15:00 96 /min [facility] Body height 2023-02-24 03:40:00 149.9 cm [facility] Body weight 2023-02-24 03:40:00 65.772 kg [facility] BMI 2023-02-24 03:40:00 29.29 kg/m2 [facility] Systolic blood pressure 2023-02-16 19:13:00 130 mm[Hg] Melissa Dwyer ld - External Diastolic blood pressure 2023-02-16 19:13:00 70 mm[Hg] Melissa Seybo ld - External Heart rate 2023-02-16 19:13:00 [...] Systolic blood pressure 2022-12-11 18:52:00 140 mm[Hg] Melissa Seybo ld - External [...] Pulse oximetry 2022-08-27 17:53:00 99 /min Melissa Quigleyybo ld - External Systolic blood pressure 2022-06-24 [...] Pulse oximetry 2022-06-24 15:33:00 97 /min Melissa Quigleyybo ld - External Systolic blood pressure 2022-06-22 19:05:00 136 mm[Hg] Melissa Seybo ld - External Diastolic blood pressure 2022-06-22 19:05:00 85 mm[Hg] Melissa Quigleyybo ld - External Heart rate 2022-06-22 19:05:00 [...] Pulse oximetry 2022-06-22 16:21:00 98 /min Melissa Quigleyybo ld - External Systolic blood pressure 2022-06-19 [...] External Body height 2022-06-09 16:41:00 149.9 cm Trisha ey Seybold - External Body weight 2022-06-09 [...] External Heart rate 2022-05-07 20:33:00 84 /min Dominikse y Seybold - External Respiratory rate 2022-05-07 [...] Body temperature 2022-04-03 21:11:00 37.39 Nannette Melissa Quigleyybold - External Respiratory rate 2022-04-03 21:11:00 14 [...] Systolic blood pressure 2021-09-30 20:09:00 144 mm[Hg] [facility] Diastolic blood pressure 2021-09-30 20:09:00 88 mm[Hg] [facility] Heart rate 2021-09-30 20:08:00 88 /min [facility] Body temperature 2021-09-30 20:08:00 35.94 Nannette [facility] Respiratory rate 2021-09-30 20:08:00 16 /min [facility] Body height 2021-09-30 20:08:00 149.9 cm [facility] Body weight 2021-09-30 20:08:00 64.501 kg [facility] BMI 2021-09-30 20:08:00 28.72 kg/m2 [facility] BP Systolic 2022-02-05 11:42:00 160 mm[Hg] [...] n Source URINALYSIS 2023-02-24 04:28:00 Keaton Patiño [facility] POCT TEST 2023-02-24 04:26:00 Keaton Patiño [facility] LIPASE 2023-02-24 04:10:00 Keaton Patiño [facility] COMP. METABOLIC PANEL (68704) 2023-02-24 04:10:00 Keaton Patiño [facility] CBC WITH DIFF 2023-02-24 04:10:00 Keaton Patiño [facility] CONSENT/REFUSAL FOR DIAGNOSIS AND TREATMENT 2023-02-24 03:30:37 Doctor Unassigned, [place] [facility] ECG- ADULT 2022-11-11 16:50:07 Adriano Agee Seybmayra - External POCT HEMOGLOBIN A1C TEST 2021-09-30 21:21:00 Andrew Verduzco [facility] Plan of Care Planned Activity Planned Date Details Comments Source Goal Plan of Care Note [code = 96779-5] Goal Plan of Care Note [code = 05326-4] Goal Plan of Care Note [code = 04787-9] Goal Plan of Care Note [code = 50965-8] Goal Plan of Care Note [code = 23818-8] Goal Plan of Care Note [code = 82947-7] Goal Plan of Care Note [code = 79826-3] Goal Plan of Care Note [code = 79524-4] Goal Plan of Care Note [code = 97762-0] Goal Plan of Care Note [code = 40286-3] Goal Plan of Care Note [code = 32735-5] Goal Plan of Care Note [code = 21295-6] Goal Plan of Care Note [code = 74419-6] Goal Plan of Care Note [code = 31295-0] Goal Plan of Care Note [code = 39988-2] Goal Plan of Care Note [code = 18213-5] Goal Plan of Care Note [code = 88866-5] Goal Plan of Care Note [code = 34364-2] Goal Plan of Care Note [code = 93033-5] Goal Plan of Care Note [code = 47331-8] Goal Plan of Care Note [code = 21315-0] Goal Plan of Care Note [code = 60315-4] Goal Plan of Care Note [code = 89966-9] Goal Plan of Care Note [code = 34058-9] Goal Plan of Care Note [code = 44680-8] Goal Plan of Care Note [code = 86604-3] Goal Plan of Care Note [code = 05108-4] Goal Plan of Care Note [code = 33810-5] Goal Plan of Care Note [code = 22825-3] Goal Plan of Care Note [code = 93184-2] Goal Plan of Care Note [code = 13199-9] Goal Plan of Care Note [code = 55511-5] Goal Plan of Care Note [code = 21425-9] Goal Plan of Care Note [code = 71193-3] Goal Plan of Care Note [code = 65071-7] Goal Plan of Care Note [code = 69390-4] Goal Plan of Care Note [code = 48152-1] Goal Plan of Care Note [code = 11674-5] Goal Plan of Care Note [code = 46970-1] Goal Plan of Care Note [code = 67012-2] Goal Plan of Care Note [code = 05053-1] Goal Plan of Care Note [code = 73365-6] Goal Plan of Care Note [code = 89861-5] Goal Plan of Care Note [code = 86915-0] Goal Plan of Care Note [code = 62608-1] Goal Plan of Care Note [code = 52578-3] Goal Plan of Care Note [code = 02126-1] Goal Plan of Care Note [code = 26483-2] Goal Plan of Care Note [code = 16799-7] Goal Plan of Care Note [code = 61920-6] Goal Plan of Care Note [code = 98963-3] Goal Plan of Care Note [code = 29467-7] Goal Plan of Care Note [code = 64236-0] Encounters Start Date/Time End Date/Time Encounter Type Admission Type Attending [facility] Care Department Encounter ID Source 2020-12-08 09:56:25 Emergency [facility] [id number] [facility] 2023-07-19 13:00:00 2023-07-19 13:00:00 Outpatient GIDEON RODRIGUEZ [id number] [facility] 2023-05-27 08:30:00 2023-05-27 08:30:00 Outpatient DEANNE KAUR [id number] [facility] 2023-04-13 09:40:00 2023-04-13 09:40:00 Outpatient MATEO ANTHONY [id number] [facility] 2023-03-17 14:45:00 2023-03-17 14:45:00 Outpatient KEMAR RODRIGUEZ [id number] [facility] 2023-03-16 10:00:00 2023-03-16 10:00:00 Outpatient ESTHER PURCELL [id number] [facility] 2023-03-15 08:40:00 2023-03-15 08:40:00 Outpatient KIKO IVIS RAJPUT [id number] [facility] 2023-03-12 13:30:00 2023-03-12 13:30:00 Outpatient ADRIANO AGEE [id number] [facility] 2023-03-02 12:20:00 2023-03-02 12:20:00 Outpatient KEMAR RODRIGUEZ [id number] Melissa Quilgeymayra 2023-03-02 12:00:00 2023-03-02 12:00:00 Outpatient ESTHER PURCELL [id number] [facility] 2023-03-01 00:00:00 2023-03-01 00:00:00 Outpatient RODOLFOADRIANO POWELL [id number] [facility] 2023-02-23 21:41:00 2023-02-24 01:28:00 Emergency X SHRUTHI KEATON [facility] ERT [id number] [facility] 2023-02-23 21:41:00 2023-02-24 01:28:00 Emergency Keaton Patiño [facility] [id number] [facility] 2023-02-24 00:00:00 2023-02-24 00:00:00 Outpatient IVIS HOOVER [id number] [facility] 2023-02-23 00:00:00 2023-02-23 00:00:00 Outpatient ESTHER PURCELL [id number] [facility] 2023-02-23 00:00:00 2023-02-23 00:00:00 Outpatient ADRIANO AGEE [id number] Melissa ybmayra 2023-02-23 00:00:00 2023-02-23 00:00:00 Outpatient ADRIANO AGEE MELISSA RAJPUT [id number] Melissa ybmayra 2023-02-22 00:00:00 2023-02-22 00:00:00 Outpatient ESTHER PURCELL [id number] Melissa ybmayra 2023-02-22 00:00:00 2023-02-22 00:00:00 Outpatient MD MELISSA NOBLE [id number] Melissa ybmayra 2023-02-22 00:00:00 2023-02-22 00:00:00 Outpatient HERNANDEZTANGELA RODRIGUEZ [id number] Melissa ybm[facility]ra 2023-02-22 00:00:00 2023-02-22 00:00:00 Outpatient ONLYPHIL MELISSA RJAPUT [id number] Melissa ybmayra 2023-02-18 00:00:00 2023-02-18 00:00:00 Outpatient ADRIANO AGEE MELISSA RAJPUT [id number] Melissa ybmayra 2023-02-16 14:05:00 2023-02-16 14:05:00 Outpatient TIFFANIE RAJPUT [id number] Melissa ybmayra 2023-02-16 11:40:00 2023-02-16 11:40:00 Outpatient TANGELA HERNANDEZ [id number] Melissa Seybmayra 2023-02-16 11:00:00 2023-02-16 11:00:00 Outpatient ESTHER PURCELL [id number] Melissa Seybmayra 2023-02-16 00:00:00 2023-02-16 00:00:00 Outpatient MD MELISSA NOBLE [id number] [facility] 2023-02-15 00:00:00 2023-02-15 00:00:00 Outpatient MD MELISSA NOBLE [id number] Melissa Serobbie 2023-02-10 15:00:00 2023-02-10 15:00:00 Outpatient TANGELA HERNANDEZ [id number] [facility] 2023-02-09 00:00:00 2023-02-09 00:00:00 Outpatient MELISSA RAJPUT [id number] [facility] 2023-02-03 14:30:00 2023-02-03 14:30:00 Outpatient ELVI FLORESJanYURY MELISSA RAJPUT [id number] [facility] 2023-02-03 13:45:00 2023-02-03 13:45:00 Outpatient KEMAR RODRIGUEZ [id number] [facility] 2023-01-21 14:45:00 2023-01-21 14:45:00 Outpatient ELVI FLORESLAURI RAJPUT [id number] [facility] 2023-01-21 00:00:00 2023-01-21 00:00:00 Outpatient MELISSA RAJPUT [id number] [facility] 2023-01-21 00:00:00 2023-01-21 00:00:00 Outpatient KEMAR RODRIGUEZ [id number] [facility] 2023-01-20 11:45:00 2023-01-20 11:45:00 Outpatient KEMAR RODRIGUEZ [id number] [facility] 2023-01-13 08:45:00 2023-01-13 08:45:00 Outpatient RadhaCHATO [id number] [facility] 2023-01-13 08:20:00 2023-01-13 08:20:00 Outpatient GIDEON RODRIGUEZ [id number] [facility] 2023-01-08 00:00:00 2023-01-08 00:00:00 Outpatient ADRIANO AGEE [id number] [facility] 2023-01-07 14:05:00 2023-01-07 14:05:00 Outpatient MELISSA RAJPUT [id number] Melissa Seybold 2023-01-07 14:00:00 2023-01-07 14:00:00 Outpatient MELISSA RAJPUT [id number] [facility] 2023-01-06 15:10:00 2023-01-06 15:10:00 Outpatient GIDEON RODRIGUEZ MELISSA RAJPUT [id number] [facility] 2022-12-29 15:00:00 2022-12-29 15:00:00 Outpatient ERIC DURBIN MELISSA RAJPUT [id number] Melissa Seybmayra 2022-12-29 00:00:00 2022-12-29 00:00:00 Outpatient PREZAS, ADRIANO MELISSA RAJPUT [id number] [facility] 2022-12-28 00:00:00 2022-12-28 00:00:00 Outpatient MD MELISSA NOBLE [id number] [facility] 2022-12-25 00:00:00 2022-12-25 00:00:00 Outpatient JULIET SEBASTIAN MELISSA RAJPUT [id number] [facility] 2022-12-21 00:00:00 2022-12-21 00:00:00 Outpatient ZAID ANDREI MELISSA RAJPUT [id number] [facility] 2022-12-21 00:00:00 2022-12-21 00:00:00 Outpatient PREZAS, ADRIANO MELISSA RAJPUT [id number] [facility] 2022-12-14 00:00:00 2022-12-14 00:00:00 Outpatient PREZAS, ADRIANO MELISSA RAJPUT [id number] [facility] 2022-12-11 14:15:00 2022-12-11 14:15:00 Outpatient LAB90 MELISSA RAJPUT [id number] Melissa Seybold 2022-12-11 13:45:00 2022-12-11 13:45:00 Outpatient PREZAS, ADRIANO MELISSA RAJPUT [id number] Melissa Seybold 2022-12-06 00:00:00 2022-12-06 00:00:00 Outpatient PREZAS, ADRIANO RAJPUT [id number] Melissa Seybold 2022-11-27 13:30:00 2022-11-27 13:30:00 Outpatient PREZAS, ADRIANO RAJPUT [id number] Melissa Seybold 2022-11-27 08:30:2022-11-27 08:30:00 Outpatient MICHAELKEMAR MELISSA [id number] [facility] 2022-11-23 00:00:00 2022-11-23 00:00:00 Outpatient PREZAS, ADRIANO RAJPUT [id number] Melissa Seybold 2022-11-18 00:00:00 2022-11-18 00:00:00 Outpatient PREZAS, ADRIANO RAJPUT MELISSA [id number] [facility] 2022-11-16 14:30:00 2022-11-16 14:30:00 Outpatient MELISSA MELISSA [id number] [facility] 2022-11-16 00:00:00 2022-11-16 00:00:00 Outpatient PREZAS, ADRIANO RAJPUT MELISSA [id number] [facility] 2022-11-16 00:00:00 2022-11-16 00:00:00 Outpatient PREZAS, ADRIANO RAJPUT MELISSA [id number] [facility] 2022-11-16 00:00:00 2022-11-16 00:00:00 Outpatient PREZAS, ADRIANO RAJPUT MELISSA [id number] [facility] 2022-11-11 11:30:00 2022-11-11 11:30:00 Outpatient PREZAS, ADRIANO RAJPUT MELISSA [id number] [facility] 2022-11-05 15:00:00 2022-11-05 15:00:00 Outpatient PURCELL, ESTHER RAJPUT [id number] [facility] 2022-11-02 00:00:00 2022-11-02 00:00:00 Outpatient PURCELL, ESTHER RAJPUT [id number] Melissa Seybold 2022-11-02 00:00:00 2022-11-02 00:00:00 Outpatient PREZAS, ADRIANO MELISSA RAJPUT [id number] Melissa Seybold 2022-11-02 00:00:00 2022-11-02 00:00:00 Outpatient PREZAS, ADRIANO RAJPUT MELISSA [id number] [facility] 2022-10-30 13:40:00 2022-10-30 13:40:00 Outpatient GIDEON RODRIGUEZ [id number] [facility] 2022-10-30 13:35:00 2022-10-30 13:35:00 Outpatient TOMOGRAPHY, FBMDC MELISSA RAJPUT [id number] Melissa [facility] 2022-10-30 10:30:00 2022-10-30 10:30:00 Outpatient KEMAR RODRIGUEZ MELISSA RAJPUT [id number] Melissa [facility] 2022-10-30 00:00:00 2022-10-30 00:00:00 Outpatient ADRIANO AGEE MELISSA RAJPUT [id number] Melissa [facility] 2022-10-30 00:00:00 2022-10-30 00:00:00 Outpatient MARTY ADRIANO RAJPUT [id number] Melissa [facility] 2022-10-30 00:00:00 2022-10-30 00:00:00 Outpatient MELISSA RAJPUT [id number] Melissa [facility] 2022-10-29 12:40:00 2022-10-29 12:40:00 Outpatient LAB90 MELISSA RAJPUT [id number] Melissa [facility] 2022-10-28 16:20:00 2022-10-28 16:20:00 Outpatient IVIS HOOVER [id number] Melissa [facility] 2022-10-27 14:45:00 2022-10-27 14:45:00 Outpatient SHMUEL HAGEN [id number] Melissa [facility] 2022-10-26 16:00:00 2022-10-26 16:00:00 Outpatient IVIS HOOVER [id number] Melissa [facility] 2022-10-26 14:30:00 2022-10-26 14:30:00 Outpatient NUHA WINSTON [id number] Melissa [facility] 2022-10-26 14:15:00 2022-10-26 14:15:00 Outpatient MELISSA RAJPUT [id number] Melissa [facility] 2022-10-23 14:30:00 2022-10-23 14:30:00 Outpatient GIDEON RODRIGUEZ [id number] [facility] 2022-10-19 08:50:00 2022-10-19 08:50:00 Outpatient NUHA WINSTON MELISSA RAJPTU [id number] Melissa Seybold 2022-10-16 00:00:00 2022-10-16 00:00:00 Outpatient NUHA WINSTON MELISSA RAJPUT [id number] Melissa Seybold 2022-10-13 15:20:00 2022-10-13 15:20:00 Outpatient MAINORMATEO Graham MELISSA RAJPUT [id number] Melissa Seybold 2022-10-13 14:00:00 2022-10-13 14:00:00 Outpatient VF53 MELISSA RAJPUT [id number] Melissa Seybold 2022-10-13 10:20:00 2022-10-13 10:20:00 Outpatient LEONID ROSE [id number] [facility] 2022-10-02 00:00:00 2022-10-02 00:00:00 Outpatient MD MELISSA NOBLE [id number] Melissa Seybold 2022-10-01 00:00:00 2022-10-01 00:00:00 Outpatient ADRIANO AGEE [id number] Melissa Seybold 2022-09-30 00:00:00 2022-09-30 00:00:00 Outpatient PREADRIANO POWELL [id number] Melissa Seybold 2022-09-30 00:00:00 2022-09-30 00:00:00 Outpatient HAMJERARDODebbie RAJPUT [id number] Melissa Seybold 2022-09-28 00:00:00 2022-09-28 00:00:00 Outpatient RAJNESSMATEO MELISSA RAJPUT [id number] Melissa Seybold 2022-09-28 00:00:00 2022-09-28 00:00:00 Outpatient PREADRIANO POWELL [id number] Melissa Seybold 2022-09-19 00:00:00 2022-09-19 00:00:00 Outpatient ADRIANO AGEE [id number] [facility] 2022-09-15 00:00:00 2022-09-15 00:00:00 Outpatient ADRIANO AGEE MELISSA [id number] [facility] 2022-09-14 11:55:00 2022-09-14 11:55:00 Outpatient LAB90 MELISSA RAJPUT [id number] [facility] 2022-09-14 00:00:00 2022-09-14 00:00:00 Outpatient JORGE CHEEK MELISSA MELISSA [id number] [facility] 2022-09-08 00:00:00 2022-09-08 00:00:00 Outpatient KESHAWN JONES MELISSA RAJPUT [id number] [facility] 2022-09-07 12:00:00 2022-09-07 12:00:00 Outpatient ROBERTKESHAWN Kamara MELISSA RAJPUT [id number] [facility] 2022-[facility]-04 00:00:00 2022-09-04 00:00:00 Outpatient PREZAADRIANO Resendez MELISSA RAJPUT [id number] [facility] 2022-[facility]-04 00:00:00 2022-09-04 00:00:00 Outpatient ADRIANO AGEE MELISSA RAJPUT [id number] [facility] 2022-09-03 15:15:00 2022-09-03 15:15:00 Outpatient ESTHER PURCELL [id number] [facility] 2022-09-02 00:00:00 2022-09-02 00:00:00 Outpatient MD MELISSA NOBLE [id number] [facility] 2022-09-01 00:00:00 2022-09-01 00:00:00 Outpatient MD MELISSA NOBLE [id number] [facility] 2022-09-01 00:00:00 2022-09-01 00:00:00 Outpatient PREZAMal ADRIANO RAJPUT [id number] [facility] 2022-08-31 00:00:00 2022-08-31 00:00:00 Outpatient PURCELLESTHER RAMOS [id number] Melissa [facility] 2022-08-27 13:30:00 2022-08-27 13:30:00 Outpatient PREZAS, ADRIANO RAJPUT MELISSA [id number] Melissa [facility] 2022-08-19 11:30:00 2022-08-19 11:30:00 Outpatient UDOETGIDEON LANDRY MELISSA RAJPUT [id number] Melissa [facility] 2022-08-04 13:00:00 2022-08-04 13:00:00 Outpatient UDOETUK, GIDEON MELISSA RAJPUT [id number] Melissa [facility] 2022-07-30 00:00:00 2022-07-30 00:00:00 Outpatient HAMJORGE MELISSA RAJPUT [id number] [facility] 2022-07-28 00:00:00 2022-07-28 00:00:00 Outpatient NOCKNESSMATEO MELISSA RAJPUT [id number] [facility] 2022-07-28 00:00:00 2022-07-28 00:00:00 Outpatient PREZAS, ADRIANO MELISSA RAJPUT [id number] [facility] 2022-07-28 00:00:00 2022-07-28 00:00:00 Outpatient PREZAS, ADRIANO MELISSA RAJPUT [id number] [facility] 2022-07-19 00:00:00 2022-07-19 00:00:00 Outpatient PREZAS, ADRIANO RAJPUT [id number] [facility] 2022-07-15 13:15:00 2022-07-15 13:15:00 Outpatient MELISSA RAJPUT [id number] [facility] 2022-07-13 14:00:00 2022-07-13 14:00:00 Outpatient NOCK, MATEO MELISSA RAJPUT [id number] [facility] 2022-07-10 00:00:00 2022-07-10 00:00:00 Outpatient PREZAS, ADRIANOJUSTIN RAJPUT [id number] [facility] 2022-07-10 00:00:00 2022-07-10 00:00:00 Outpatient PREZAS, ADRIANO RAJPUT [id number] [facility] 2022-07-09 13:30:00 2022-07-09 13:30:00 Outpatient LAB90 MELISSA RAJPUT [id number] [facility] 2022-07-07 00:00:00 2022-07-07 00:00:00 Outpatient PREZAADRIANO Resendez MELISSA RAJPUT [id number] [facility] 2022-07-03 00:00:00 2022-07-03 00:00:00 Outpatient MD MELISSA NOBLE [id number] [facility] 2022-06-30 14:30:00 2022-06-30 14:30:00 Outpatient PREZAADRIANO Resendez MELISSA RAJPUT [id number] [facility] 2022-06-29 14:30:00 2022-06-29 14:30:00 Outpatient UDOETGIDEON LANDRY [id number] Melissa [facility] 2022-06-29 13:15:00 2022-06-29 13:15:00 Outpatient 1, OPTICAL MELISSA RAJPUT [id number] [facility] 2022-06-24 11:00:00 2022-06-24 11:00:00 Outpatient PREZAADRIANO Resendez MELISSA RAJPUT [id number] [facility] 2022-06-24 00:00:00 2022-06-24 00:00:00 Outpatient PREZAADRIANO Resendez MELISSA RAJPUT [id number] Melissa [facility] 2022-06-24 00:00:00 2022-06-24 00:00:00 Outpatient NOCK MATEOBRENTON RAJPUT [id number] Melissa [facility] 2022-06-22 11:30:00 2022-06-22 11:30:00 Outpatient IVT, GABY RAJPUT [id number] Melissa [facility] 2022-06-22 00:00:00 2022-06-22 00:00:00 Outpatient MELISSA RAJPUT [id number] [facility] 2022-06-22 00:00:00 2022-06-22 00:00:00 Outpatient PREZAADRIANO Resendez MELISSA RAJPUT [id number] Melissa [facility] 2022-06-19 15:40:00 2022-06-19 15:40:00 Outpatient ROBERTKESHAWN Kamara MELISSA RAJPUT [id number] Melissa [facility] 2022-06-19 14:00:00 2022-06-19 14:00:00 Outpatient ESTHER PURCELL MELISSA RAJPUT [id number] Melissa [facility] 2022-06-19 00:00:00 2022-06-19 00:00:00 Outpatient MANTRAVACARLTON HERNANDES [id number] Melissa [facility] 2022-06-17 00:00:00 2022-06-17 00:00:00 Outpatient NOCK MATEOBRENTON RAJPUT [id number] Melissa [facility] 2022-06-15 00:00:00 2022-06-15 00:00:00 Outpatient PREZAS, ADRIANO RAJPUT [id number] [facility] 2022-06-15 00:00:00 2022-06-15 00:00:00 Outpatient MANTCARLTON CEDENO [id number] [facility] 2022-06-12 14:20:00 2022-06-12 14:20:00 Outpatient KUMAR, ISMAALEJANDRA RAJPUT [id number] [facility] 2022-06-09 11:30:00 2022-06-09 11:30:00 Outpatient INFUSION, GABY RAJPUT [id number] [facility] 2022-06-02 00:00:00 2022-06-02 00:00:00 Outpatient RUBY, ANGELA MELISSA RAJPUT [id number] [facility] 2022-06-01 14:00:00 2022-06-01 14:00:00 Outpatient PREZAS, ADRIANO RAJPUT [id number] [facility] 2022-06-01 00:00:00 2022-06-01 00:00:00 Outpatient CARLTON HERNANDEZ [id number] Melissa [facility] 2022-05-26 10:00:00 2022-05-26 10:00:00 Outpatient IVT, GABY RAJPUT [id number] [facility] 2022-05-18 00:00:00 2022-05-18 00:00:00 Outpatient ZAIN DIOR MELISSA RAJPUT [id number] Melissa [facility] 2022-05-13 16:00:00 2022-05-13 16:00:00 Outpatient MELISSA RAJPUT [id number] Melissa [facility] 2022-05-12 11:35:00 2022-05-12 11:35:00 Outpatient TOMOGRAPHY, CK MELISSA RAJPUT [id number] Melissa [facility] 2022-05-12 11:05:00 2022-05-12 11:05:00 Outpatient TOMOGRAPHY, CK MELISSA RAJPUT [id number] Melissa [facility] 2022-05-12 10:40:00 2022-05-12 10:40:00 Outpatient NOCMATEO Graham MELISSA RAJPUT [id number] [facility] 2022-05-11 14:30:00 2022-05-11 14:30:00 Outpatient ALAKENNY, ENRIQUEO MELISSA RAJPUT [id number] [facility] 2022-05-08 10:00:00 2022-05-08 10:00:00 Outpatient PREZAS, ADRIANO MELISSA RAJPUT [id number] [facility] 2022-05-07 16:00:00 2022-05-07 16:00:00 Outpatient MATTHEW ASHFORD [id number] [facility] 2022-05-06 00:00:00 2022-05-06 00:00:00 Outpatient MELISSA RAJPUT [id number] [facility] 2022-05-05 07:50:00 2022-05-05 07:50:00 Outpatient MELISSA RAJPUT [id number] Melissa [facility] 2022-05-05 07:30:00 2022-05-05 07:30:00 Outpatient MELISSA RAJPUT [id number] Melissa [facility] 2022-05-05 00:00:00 2022-05-05 00:00:00 Outpatient PREZAS, ADRIANO MELISSA RAJPUT [id number] Melissa [facility] 2022-05-05 00:00:00 2022-05-05 00:00:00 Outpatient PHOEBE ROWE [id number] [facility] 2022-05-05 00:00:00 2022-05-05 00:00:00 Outpatient PREZAS, ADRIANO MELISSA RAJPUT [id number] [facility] 2022-05-05 00:00:00 2022-05-05 00:00:00 Outpatient MELISSA RAJPUT [id number] Melissa [facility] 2022-05-01 14:30:00 2022-05-01 14:30:00 Outpatient LAB90 MELISSA RAJPUT [id number] [facility] 2022-05-01 13:45:00 2022-05-01 13:45:00 Outpatient PREZAS, ADRIANO MELISSA RAJPUT [id number] [facility] 2022-04-22 16:15:00 2022-04-22 16:15:00 Outpatient MELISSA RAJPUT [id number] [facility] 2022-04-22 10:00:00 2022-04-22 10:00:00 Outpatient SYDNIADDISIVIS LAROSE MELISSA RAJPUT [id number] [facility] 2022-04-10 16:00:00 2022-04-10 16:00:00 Outpatient MELISSA RAJPUT [id number] [facility] 2022-04-10 00:00:00 2022-04-10 00:00:00 Outpatient PREZAS, ADRIANO MELISSA RAJPUT [id number] [facility] 2022-04-09 00:00:00 2022-04-09 00:00:00 Outpatient PREZAS, ADRIANO MELISSA RAJPUT [id number] [facility] 2022-04-09 00:00:00 2022-04-09 00:00:00 Outpatient PREZAS, ADRIANO MELISSA RAJPUT [id number] [facility] 2022-04-09 00:00:00 2022-04-09 00:00:00 Outpatient PREZAS, ADRIANO MELISSA RAJPUT [id number] Melissa [facility] 2022-04-08 14:15:00 2022-04-08 14:15:00 Outpatient LAB90 MELISSA RAJPUT [id number] [facility] 2022-04-07 00:00:00 2022-04-07 00:00:00 Outpatient ADRIANO AGEE [id number] [facility] 2022-04-06 13:40:00 2022-04-06 13:40:00 Outpatient WEN RAJPUT [id number] [facility] 2022-04-03 15:15:00 2022-04-03 15:15:00 Outpatient ADRIANO AGEE [id number] [facility] 2022-04-01 10:30:00 2022-04-01 10:30:00 Outpatient R DAX MINNIEStephenU DAX, OGECHUKWU [facility] [id number] [facility] 2022-04-01 10:30:00 2022-04-01 10:30:00 Outpatient R DAX, MINNIEStephenU DAX, OGECHWU [facility] [id number] [facility] 2022-02-26 14:58:07 2022-02-26 14:58:07 Outpatient SFA SFA [id number] Matthew Brown 2022-02-20 14:15:19 2022-02-20 14:15:19 Outpatient SFA SFA [id number] Matthew Brown 2022-02-11 09:20:44 2022-02-11 09:20:44 Outpatient SFA SFA [id number] Matthew Brown 2022-02-05 11:38:34 2022-02-05 11:38:34 Outpatient SFA SFA [id number] Matthew Brown 2022-02-05 00:00:00 2022-02-05 00:00:00 Outpatient Visit [id number] 10:42:46 2021-11-17 10:42:46 Outpatient SFA SFA [id number] Matthew Brown 2021-11-13 15:06:22 2021-11-13 15:06:22 Outpatient SFA SFA [id number] Matthew Brown 2021-11-13 00:00:00 2021-11-13 00:00:00 Outpatient Visit [id number] 2021-10-09 00:00:00 2021-10-09 00:00:00 Outpatient R DENNIS GALLARDOSUGEY [facility] [id number] [facility] 2021-10-01 00:00:00 2021-10-01 00:00:00 Patient Outreach Malini Muñoz [facility] [id number] [id number] [facility] 2021-10-01 00:00:00 2021-10-01 00:00:00 Telephone Toni Malini L [facility] [id number] [id number] [id number] [id number] [facility] 2021-09-30 15:00:00 2021-09-30 16:30:37 Outpatient R DAXCHANCE HAHNHA PERALTASTEPHENIBETH [facility] [id number] [facility] 2021-09-30 15:00:00 2021-09-30 16:30:37 Outpatient R DAX CHANCEBOOGIE DAXHA HAHNSTEPHENIBETH [facility] [id number] [facility] 2021-09-30 15:00:00 2021-09-30 16:30:37 Office Visit Dax, Andrew [facility] [id number] [id number] [id number] [id number] [facility] 2021-09-30 00:00:00 2021-09-30 00:00:00 Orders Only Doctor Unassigned, [place] [facility] [id number] [id number] [id number] [id number] [facility] 2021-07-24 00:00:00 2021-07-24 00:00:00 Orders Only Doctor Unassigned, [place] [facility] [id number] 350.1.13.10 4.2.7.2.686 [id number] [facility] 2021-04-11 14:20:00 2021-04-11 14:20:00 Outpatient R UNKNOWN, ATTENDING [facility] [id number] [facility] 2021-04-11 14:20:00 2021-04-11 14:20:00 Outpatient R UNKNOWN, ATTENDING [facility] [id number] [facility] 2021-04-07 21:43:00 2021-04-08 01:09:00 Emergency X LEXA GOFF [facility] ERT [id number] [facility] 2021-04-07 21:43:00 2021-04-08 01:09:00 Emergency Lexa Goff [facility] [id number] 350.1.13.10 4.2.7.2.686 [id number] [facility] 2019-08-21 08:00:00 2019-08-21 08:00:00 Outpatient R PATRIA LEVY [facility] [id number] [facility] 2019-07-24 21:47:47 2019-07-25 02:18:00 Emergency X Santos MOISE [facility] ERT [id number] [facility] Results Test Description Test Time Test Comments Results Result Co mments Source [facility] [id number] 18:40:14* Test Item Value Reference Range Interpretation Comme nts VENTRICULAR RATE (test code = 50753) BPM ATRIAL RATE (test code = 67770) BPM P-R INTERVAL (test code = 31761) 134 ms QRS DURATION (test code = 42935) 80 ms Q-T INTERVAL (test code = 19550) 408 ms QTC CALCULATION(BEZE (test code = 17068) 437 ms CALCULATED P AXIS (test code = 29741) degrees CALCULATED R AXIS (test code = 05565) degrees CALCULATED T AXIS (test code = 73936) degrees DIAGNOSIS (test code = 82746) Normal sinus rhythmPossible Inferior infarct , age undeterminedPoor R-wave progressionBorderline ECGNo previous ECGs availableConfirmed by Radha MCCALL ([id number]) on 11/11/2022 1:40:13 PM [facility] [id number] 05:52:40* Test Item Value Reference Range Interpretation Comme nts GLUCOSE (test code = 2217) 166 MG/DL 70-99 H BUN (test code = 2207) 33 MG/DL 6-20 H CREATININE (test code = 2214) 1.77 MG/DL 0.60-1.30 H eGFR (2020 CKD-EPI) (test code = 94041) 35 ML/MIN/1.73 >60 L CALC BUN/CREAT (test code = 2235) 19 RATIO 6-28 SODIUM (test code = 2231) 141 MEQ/L 133-146 POTASSIUM (test code = 2228) 4.9 MEQ/L 3.5-5.4 CHLORIDE (test code = 2215) 108 MEQ/L 95-107 H CARBON DIOXIDE (test code = 2206) 22 MEQ/L 19-31 CALCIUM (test code = 2209) 9.2 MG/DL 8.5-10.5 PROTEIN, TOTAL (test code = 222) 7.1 G/DL 6.1-8.3 ALBUMIN (test code = 2201) 3.7 G/DL 3.5-5.2 CALC GLOBULIN (test code [...] PHOSPHATASE (test code = 2204) 98 U/L 40-123 AST (test code = 2218) 14 U/L 9-40 ALT (test code = 2219) 8 U/L 5-40 UNLESS OTHERWISE INDICATED, ALL TESTING PERFORMED [facility] [employer] [address] [place] [address] INFORMATION SECURITY ANALYST: JAYCEE RAMIREZ M.D. [place] NUMBER [id number] [facility] [place]. [id number] LIPID [id number] 05:52:40* Test Item Value Reference Range Interpretation [...] SPECIMENS. FOR MOREINFORMATION, SEE CLIENT ANNOUNCEMENT AT [email or web address] RISK RATIO LDL/HDL (test code = 2238) 2.22 RATIO <3.22 HEMOGLOBIN [id number] 04:18:15* Test Item Value Reference Range Interpretation Comme nts HEMOGLOBIN A1c (test code = 42856) 7.5 % 4.2-5.6 H [employer] GUIDELINES FOR HGB A1C: [...] CONSIDER ALTERNATE TESTING OR LABORATORY CONSULTATION. HEMOGLOBIN [id number] 00:00:00* Test Item Value Reference Range Interpretation Comme nts HEMOGLOBIN A1c (test code = 58772) 7.5 % HEMOGLOBIN [id number] 00:00:00* Test Item Value Reference Range Interpretation Comme nts HEMOGLOBIN A1c (test code = 56078) 7.5 % HEMOGLOBIN [id number] 00:00:00* Test Item Value Reference Range Interpretation Comme nts HEMOGLOBIN A1c (test code = 73435) 7.5 % LIPID [id number] 00:00:00* Test Item Value Reference Range Interpretation Comme nts CHOLESTEROL (test code = 2210) 174 MG/DL TRIGLYCERIDES (test code = 2232) 192 MG/DL HDL CHOLESTEROL (test code = 2220) 45 MG/DL CALC LDL CHOL (test code = 2237) 100 MG/DL RISK RATIO LDL/HDL (test cod e = 2238) 2.22 RATIO LIPID [id number] 00:00:00* Test Item Value Reference Range Interpretation Comme nts CHOLESTEROL (test code = 2210) 174 MG/DL TRIGLYCERIDES (test code = 2232) 192 MG/DL HDL CHOLESTEROL (test code = 2220) 45 MG/DL CALC LDL CHOL (test code = 2237) 100 MG/DL RISK RATIO LDL/HDL (test cod e = 2238) 2.22 RATIO COMPREHENSIVE METABOLIC [id number] 00:00:00* Test Item Value Reference Range Interpretation Comme nts GLUCOSE (test code = 2217) 166 MG/DL BUN (test code = 2208) 33 MG/DL CREATININE (test code = 2214) 1.77 MG/DL eGFR (2020 CKD-EPI) (test co de = 81948) 35 ML/MIN/1.73 CALC BUN/CREAT (test code = [...] code = 2219) 8 U/L COMPREHENSIVE METABOLIC [id number] 00:00:00* Test Item Value Reference Range Interpretation Comme nts GLUCOSE (test code = 2217) 166 MG/DL BUN (test code = 2208) 33 MG/DL CREATININE (test code = 2214) 1.77 MG/DL eGFR (2020 CKD-EPI) (test co de = 55049) 35 ML/MIN/1.73 CALC BUN/CREAT (test code = [...] = 2219) 8 U/L POCT HEMOGLOBIN A1C [id number] 21:21:00* Test Item Value Reference Range Interpretation Comme [facility] POCT HBA1C (test code = 4548-4) 8.2 % 4-6 A Lab Interpretation (test cod e = 69759-3) Abnormal [facility] [id number] 05:24:49* Test Item Value Reference Range Interpretation Comme [facility] HEMOGLOBIN A1c (test code = 02123) 7.8 % 4.2-5.6 H [employer] GUIDELINES FOR HGB A1C: [...] CONSIDER ALTERNATE TESTING OR LABORATORY CONSULTATION. LIPID [id number] 05:18:45* Test Item Value Reference Range Interpretation [...] SPECIMENS. FOR MOREINFORMATION, SEE CLIENT ANNOUNCEMENT AT [email or web address]-[email or web address] RISK RATIO LDL/HDL (test code = 2238) 3.54 RATIO <3.22 H COMPREHENSIVE METABOLIC [id number] 05:18:45* Test Item Value Reference Range Interpretation Comme nts GLUCOSE (test code = 2217) 202 MG/DL 70-99 H BUN (test code = 8) 23 MG/DL 6-20 H CREATININE (test code = 2214) 1.57 MG/DL 0.60-1.30 H eGFR (2020 CKD-EPI) (test code = 56003) 41 ML/MIN/1.73 >60 L CALC BUN/CREAT (test code = 2235) 15 RATIO 6-28 SODIUM (test code = 223) 139 MEQ/L 133-146 POTASSIUM (test code = [...] 5-40 UNLESS OTHERWISE INDICATED, ALL TESTING PERFORMED [facility] [employer] [address] [place] [address] INFORMATION SECURITY ANALYST: JAYCEE RAMIREZ M.D. CLIA NUMBER [id number] [facility] [place]. [id number] COMPREHENSIVE METABOLIC PANEL [ADDED]2021-07-26 00:00:00* Test Item Value Reference Range Interpretation Comme nts GLUCOSE (test code = 2217) 202 MG/DL BUN (test code = 2208) 23 MG/DL CREATININE (test code = 2214) 1.57 MG/DL eGFR (2020 CKD-EPI) (test co de = 77001) 41 ML/MIN/1.73 CALC BUN/CREAT (test code = [...] Comme nts HEMOGLOBIN A1c (test code = 67441) 7.8 % HEMOGLOBIN A1c [ADDED]2021-07-26 00:00:00* Test Item Value Reference Range Interpretation Comme nts HEMOGLOBIN A1c (test code = 76583) 7.8 % HEMOGLOBIN A1c [ADDED]2021-07-26 00:00:00* Test Item Value Reference Range Interpretation Comme nts HEMOGLOBIN A1c (test code = 54056) 7.8 % LIPID PANEL [ADDED]2021-07-26 00:00:00* Test [...] eGFR (2020 CKD-EPI) (test co de = 74120) 41 ML/MIN/1.73 CALC BUN/CREAT (test code = [...] eGFR (2020 CKD-EPI) (test co de = 00068) 41 ML/MIN/1.73 CALC BUN/CREAT (test code = [...] Comme nts HEMOGLOBIN A1c (test code = 85521) 7.8 % HEMOGLOBIN A1c [ADDED]2021-07-26 00:00:00* Test Item Value Reference Range Interpretation Comme nts HEMOGLOBIN A1c (test code = 29459) 7.8 % HEMOGLOBIN A1c [ADDED]2021-07-26 00:00:00* Test Item Value Reference Range Interpretation Comme nts HEMOGLOBIN A1c (test code = 45165) 7.8 % LIPID PANEL [ADDED]2021-07-26 00:00:00* Test [...] eGFR (2020 CKD-EPI) (test co de = 23788) 41 ML/MIN/1.73 CALC BUN/CREAT (test code = [...] (test code = 2219) 11 U/L HEMOGLOBIN [id number] 06:11:51* Test Item Value Reference Range Interpretation Comme nts HEMOGLOBIN A1c (test code = 58203) 10.8 % 4.2-5.6 H [employer] GUIDELINES FOR HGB A1C: [...] CONSIDER ALTERNATE TESTING OR LABORATORY CONSULTATION. LIPID [id number] 05:14:42* Test Item Value Reference Range Interpretation [...] SPECIMENS. FOR MOREINFORMATION, SEE CLIENT ANNOUNCEMENT AT [email or web address] /CalcLDL-C RISK RATIO LDL/HDL (test code = 2238) 2.90 RATIO <3.22 COMPREHENSIVE METABOLIC [id number] 05:14:42* Test Item Value Reference Range Interpretation Comme nts GLUCOSE (test code = 2217) 58 MG/DL 70-99 L BUN (test code = 2208) 19 MG/DL 6-20 CREATININE (test code = 2214) 1.40 MG/DL 0.60-1.30 H eGFR (2020 CKD-EPI) (test code = 50735) 47 ML/MIN/1.73 >60 L CALC BUN/CREAT (test code = 2235) 14 RATIO 6-28 SODIUM (test code = 223) 143 MEQ/L 133-146 POTASSIUM (test code = [...] 5-40 UNLESS OTHERWISE INDICATED, ALL TESTING PERFORMED [facility] [employer] [address] [place] [address] INFORMATION SECURITY ANALYST: JAYCEE RAMIREZ M.D. CLIA NUMBER [id number] [place] [id number] COMPREHENSIVE METABOLIC [id number] 00:00:00* Test Item Value Reference Range Interpretation Comme nts GLUCOSE (test code = 2217) 58 MG/DL BUN (test code = 2208) 19 MG/DL CREATININE (test code = 2214) 1.40 MG/DL eGFR (2020 CKD-EPI) (test co de = 83283) 47 ML/MIN/1.73 CALC BUN/CREAT (test code = [...] code = 2219) 11 U/L COMPREHENSIVE METABOLIC [id number] 00:00:00* Test Item Value Reference Range Interpretation Comme nts GLUCOSE (test code = 2217) 58 MG/DL BUN (test code = 2208) 19 MG/DL CREATININE (test code = 2214) 1.40 MG/DL eGFR (2020 CKD-EPI) (test co de = 32249) 47 ML/MIN/1.73 CALC BUN/CREAT (test code = [...] (test code = 2219) 11 U/L HEMOGLOBIN [id number] 00:00:00* Test Item Value Reference Range Interpretation Comme nts HEMOGLOBIN A1c (test code = 26669) 10.8 % HEMOGLOBIN [id number] 00:00:00* Test Item Value Reference Range Interpretation Comme nts HEMOGLOBIN A1c (test code = 76002) 10.8 % HEMOGLOBIN [id number] 00:00:00* Test Item Value Reference Range Interpretation Comme nts HEMOGLOBIN A1c (test code = 74524) 10.8 % LIPID [id number] 00:00:00* Test Item Value Reference Range Interpretation Comme nts CHOLESTEROL (test code = 2210) 235 MG/DL TRIGLYCERIDES (test code = 2232) 215 MG/DL HDL CHOLESTEROL (test code = 2220) 51 MG/DL CALC LDL CHOL (test code = 2237) 148 MG/DL RISK RATIO LDL/HDL (test cod e = 2238) 2.90 RATIO LIPID [id number] 00:00:00* Test Item Value Reference Range Interpretation Comme nts CHOLESTEROL (test code = 2210) 235 MG/DL TRIGLYCERIDES (test code = 2232) 215 MG/DL HDL CHOLESTEROL (test code = 2220) 51 MG/DL CALC LDL CHOL (test code = 2237) 148 MG/DL RISK RATIO LDL/HDL (test cod e = 2238) 2.90 RATIO COMPREHENSIVE METABOLIC [id number] 00:00:00* Test Item Value Reference Range Interpretation Comme nts GLUCOSE (test code = 2217) 58 MG/DL BUN (test code = 2208) 19 MG/DL CREATININE (test code = 2214) 1.40 MG/DL eGFR (2020 CKD-EPI) (test co de = 09303) 47 ML/MIN/1.73 CALC BUN/CREAT (test code = [...] code = 2219) 11 U/L COMPREHENSIVE METABOLIC [id number] 00:00:00* Test Item Value Reference Range Interpretation Comme nts GLUCOSE (test code = 2217) 58 MG/DL BUN (test code = 2208) 19 MG/DL CREATININE (test code = 2214) 1.40 MG/DL eGFR (2020 CKD-EPI) (test co de = 19810) 47 ML/MIN/1.73 CALC BUN/CREAT (test code = [...] (test code = 2219) 11 U/L HEMOGLOBIN [id number] 00:00:00* Test Item Value Reference Range Interpretation Comme nts HEMOGLOBIN A1c (test code = 92016) 10.8 % HEMOGLOBIN [id number] 00:00:00* Test Item Value Reference Range Interpretation Comme nts HEMOGLOBIN A1c (test code = 04927) 10.8 % HEMOGLOBIN [id number] 00:00:00* Test Item Value Reference Range Interpretation Comme nts HEMOGLOBIN A1c (test code = 60940) 10.8 % LIPID [id number] 00:00:00* Test Item Value Reference Range Interpretation Comme nts CHOLESTEROL (test code = 2210) 235 MG/DL TRIGLYCERIDES (test code = 2232) 215 MG/DL HDL CHOLESTEROL (test code = 2220) 51 MG/DL CALC LDL CHOL (test code = 2237) 148 MG/DL RISK RATIO LDL/HDL (test cod e = 2238) 2.90 RATIO LIPID [id number] 00:00:00* Test Item Value Reference Range Interpretation Comme nts CHOLESTEROL (test code = 2210) 235 MG/DL TRIGLYCERIDES (test code = 2232) 215 MG/DL HDL CHOLESTEROL (test code = 2220) 51 MG/DL CALC LDL CHOL (test code = 2237) 148 MG/DL RISK RATIO LDL/HDL (test cod e = 2238) 2.90 RATIO HEMOGLOBIN [id number] 11:23:29* Test Item Value Reference Range Interpretation Comme nts HEMOGLOBIN A1c (test code = 03702) 13.0 % 4.2-5.6 H [employer] GUIDELINES FOR HGB A1C: [...] OR LABORATORY CONSULTATION. CBC W/AUTO DIFF WITH [id number] 10:40:41* Test Item Value Reference Range Interpretation [...] 0.00-0.10 ABS NUCLEATED RBCS (test code = 44888) 0.00 K/UL 0.00-0.11 TSH, THIRD [id number] 06:03:58* Test Item Value Reference Range Interpretation Comme nts TSH, THIRD GENERATION (test code = 2821) 5.840 UIU/ML 0.400-4.100 H UNLESS OTHERWISE INDICATED, ALL TESTING PERFORMED [facility] [employer] [address] [place] [id number] INFORMATION SECURITY ANALYST: JAYCEE RAMIREZ M.D. [facility] NUMBER [id number] [facility] [place]. [id number] LIPID [id number] 05:12:52* Test Item Value Reference Range Interpretation [...] SPECIMENS. FOR MOREINFORMATION, SEE CLIENT ANNOUNCEMENT AT [email or web address] CalcLDL-C RISK RATIO LDL/HDL (test code = 2238) 4.13 RATIO <3.22 H UNABLE TO DONNA CULATE COMPREHENSIVE METABOLIC [id number] 05:12:52* Test Item Value Reference Range Interpretation Comme nts GLUCOSE (test code = 2217) 304 MG/DL 70-99 H BUN (test code = 2208) 26 MG/DL 6-20 H CREATININE (test code = 2214) 1.81 MG/DL 0.60-1.30 H eGFR (2020 CKD-EPI) (test code = 93584) 34 ML/MIN/1.73 >60 L CALC BUN/CREAT (test [...] = 2219) 13 U/L 5-40 COMPREHENSIVE METABOLIC [id number] 00:00:00* Test Item Value Reference Range Interpretation Comme nts GLUCOSE (test code = 2217) 304 MG/DL BUN (test code = 2208) 26 MG/DL CREATININE (test code = 2214) 1.81 MG/DL eGFR (2020 CKD-EPI) (test co de = 49529) 34 ML/MIN/1.73 CALC BUN/CREAT (test code = [...] code = 2219) 13 U/L COMPREHENSIVE METABOLIC [id number] 00:00:00* Test Item Value Reference Range Interpretation Comme nts GLUCOSE (test code = 2217) 304 MG/DL BUN (test code = 2208) 26 MG/DL CREATININE (test code = 2214) 1.81 MG/DL eGFR (2020 CKD-EPI) (test co de = 68385) 34 ML/MIN/1.73 CALC BUN/CREAT (test code = [...] ALT (test code = 2219) 13 U/L [id number] 00:00:00* Test Item Value Reference Range Interpretation Comme nts TSH, THIRD GENERATION (test code = 2821) 5.840 UIU/ML [id number] 00:00:00* Test Item Value Reference Range Interpretation Comme nts TSH, THIRD GENERATION (test code = 2821) 5.840 UIU/ML [id number] 00:00:00* Test Item Value Reference Range Interpretation Comme nts TSH, THIRD GENERATION (test code = 2821) 5.840 UIU/ML CBC W/AUTO [id number] 00:00:00* Test Item Value Reference Range Interpretation [...] ABS NUCLEATED RBCS (test cod e = 17027) 0.00 K/UL CBC W/AUTO [id number] 00:00:00* Test Item Value Reference Range Interpretation [...] ABS NUCLEATED RBCS (test cod e = 09540) 0.00 K/UL CBC W/AUTO [id number] 00:00:00* Test Item Value Reference Range Interpretation [...] ABS NUCLEATED RBCS (test cod e = 84371) 0.00 K/UL HEMOGLOBIN [id number] 00:00:00* Test Item Value Reference Range Interpretation Comme nts HEMOGLOBIN A1c (test code = 37913) 13.0 % HEMOGLOBIN [id number] 00:00:00* Test Item Value Reference Range Interpretation Comme nts HEMOGLOBIN A1c (test code = 64809) 13.0 % HEMOGLOBIN [id number] 00:00:00* Test Item Value Reference Range Interpretation Comme nts HEMOGLOBIN A1c (test code = 80088) 13.0 % LIPID [id number] 00:00:00* Test Item Value Reference Range Interpretation Comme nts CHOLESTEROL (test code = 2210) 278 MG/DL TRIGLYCERIDES (test code = 2232) 553 MG/DL HDL CHOLESTEROL (test code = 2220) 38 MG/DL CALC LDL CHOL (test code = 2237) (NOTE) MG/DL RISK RATIO LDL/HDL (test cod e = 2238) 4.13 RATIO LIPID [id number] 00:00:00* Test Item Value Reference Range Interpretation Comme nts CHOLESTEROL (test code = 2210) 278 MG/DL TRIGLYCERIDES (test code = 2232) 553 MG/DL HDL CHOLESTEROL (test code = 2220) 38 MG/DL CALC LDL CHOL (test code = 2237) (NOTE) MG/DL RISK RATIO LDL/HDL (test cod e = 2238) 4.13 RATIO COMPREHENSIVE METABOLIC [id number] 00:00:00* Test Item Value Reference Range Interpretation Comme nts GLUCOSE (test code = 2217) 304 MG/DL BUN (test code = 2208) 26 MG/DL CREATININE (test code = 2214) 1.81 MG/DL eGFR (2020 CKD-EPI) (test co de = 49713) 34 ML/MIN/1.73 CALC BUN/CREAT (test code = [...] code = 2219) 13 U/L COMPREHENSIVE METABOLIC [id number] 00:00:00* Test Item Value Reference Range Interpretation Comme nts GLUCOSE (test code = 2217) 304 MG/DL BUN (test code = 2208) 26 MG/DL CREATININE (test code = 2214) 1.81 MG/DL eGFR (2020 CKD-EPI) (test co de = 21398) 34 ML/MIN/1.73 CALC BUN/CREAT (test code = [...] ALT (test code = 2219) 13 U/L [id number] 00:00:00* Test Item Value Reference Range Interpretation Comme nts TSH, THIRD GENERATION (test code = 2821) 5.840 UIU/ML [id number] 00:00:00* Test Item Value Reference Range Interpretation Comme nts TSH, THIRD GENERATION (test code = 2821) 5.840 UIU/ML [id number] 00:00:00* Test Item Value Reference Range Interpretation Comme nts TSH, THIRD GENERATION (test code = 2821) 5.840 UIU/ML CBC W/AUTO [id number] 00:00:00* Test Item Value Reference Range Interpretation [...] ABS NUCLEATED RBCS (test cod e = 14115) 0.00 K/UL CBC W/AUTO [id number] 00:00:00* Test Item Value Reference Range Interpretation [...] ABS NUCLEATED RBCS (test cod e = 41712) 0.00 K/UL CBC W/AUTO [id number] 00:00:00* Test Item Value Reference Range Interpretation [...] ABS NUCLEATED RBCS (test cod e = 56377) 0.00 K/UL HEMOGLOBIN [id number] 00:00:00* Test Item Value Reference Range Interpretation Comme nts HEMOGLOBIN A1c (test code = 19349) 13.0 % HEMOGLOBIN [id number] 00:00:00* Test Item Value Reference Range Interpretation Comme nts HEMOGLOBIN A1c (test code = 46595) 13.0 % HEMOGLOBIN [id number] 00:00:00* Test Item Value Reference Range Interpretation Comme nts HEMOGLOBIN A1c (test code = 57589) 13.0 % LIPID [id number] 00:00:00* Test Item Value Reference Range Interpretation Comme nts CHOLESTEROL (test code = 2210) 278 MG/DL TRIGLYCERIDES (test code = 2232) 553 MG/DL HDL CHOLESTEROL (test code = 2220) 38 MG/DL CALC LDL CHOL (test code = 2237) (NOTE) MG/DL RISK RATIO LDL/HDL (test cod e = 2238) 4.13 RATIO LIPID [id number] 00:00:00* Test Item Value Reference Range Interpretation Comme nts CHOLESTEROL (test code = 2210) 278 MG/DL TRIGLYCERIDES (test code = 2232) 553 MG/DL HDL CHOLESTEROL (test code = 2220) 38 MG/DL CALC LDL CHOL (test code = 2237) (NOTE) MG/DL RISK RATIO LDL/HDL (test cod e = 2238) 4.13 RATIO LIPID [id number] 04:41:06* Test Item Value Reference Range Interpretation [...] SPECIMENS. FOR MOREINFORMATION, SEE CLIENT ANNOUNCEMENT AT [email or web address] CalcLDL-C RISK RATIO LDL/HDL (test code = 2238) 3.83 RATIO <3.22 H UNABLE TO DONNA CULATE COMPREHENSIVE METABOLIC [id number] 04:41:06* Test Item Value Reference Range Interpretation Comme nts GLUCOSE (test code = 2217) 87 MG/DL 70-99 BUN (test code = 2208) 19 MG/DL 6-20 CREATININE (test code = 2214) 1.31 MG/DL 0.60-1.30 H EFFECTIVE 2020, [facility] HAS IMPLEMENTED THE NKF-ASN RECOMMENDED KD-EPI EGFR REFIT CALCULATION THAT DOES NOT INCLUDE A COEFFICIENT FORRACE. FOR MORE INFORMATION, SEE ANNOUNCEMENT [email or web address] eGFR (2020 CKD-EPI) (test code = 92387) 51 ML/MIN/1.73 >60 L CALC BUN/CREAT (test code = 2235) 15 RATIO 6-28 SODIUM (test code = 223) 142 MEQ/L 133-146 POTASSIUM (test code = 2228) 3.8 MEQ/L 3.5-5.4 CHLORIDE (test code = 2215) 106 MEQ/L 95-107 CARBON DIOXIDE (test code = 2206) 24 MEQ/L 19-31 CALCIUM (test code = 2209) 9.1 MG/DL 8.5-10.5 PROTEIN, TOTAL (test code [...] normal/abnormal. ALKALINE PHOSPHATASE (test code = 2204) 105 U/L 40-120 AST (test code = 2218) 19 U/L 9-40 ALT (test code = 2219) 13 U/L 5-40 UNLESS OTHERWISE INDICATED, [facility] TESTING PERFOR[facility] [address] [place] [address] INFORMATION SECURITY ANALYST: JAYCEE RAMIREZ M.D. [facility] NUMBER [id number] [facility] [place]. [id number] HEMOGLOBIN [id number] 02:36:52* Test Item Value Reference Range Interpretation Comme [facility] HEMOGLOBIN A1c (test code = 88060) 7.3 % 4.2-5.6 H [employer] GUIDELINES FOR HGB A1C: [...] ALTERNATE TESTING OR LABORATORY CONSULTATION. COMPREHENSIVE METABOLIC [id number] 00:00:00* Test Item Value Reference Range Interpretation Comme nts GLUCOSE (test code = 2217) 87 MG/DL BUN (test code = 2208) 19 MG/DL CREATININE (test code = 2214) 1.31 MG/DL eGFR (2020 CKD-EPI) (test co de = 90413) 51 ML/MIN/1.73 CALC BUN/CREAT (test code = [...] code = 2219) 13 U/L COMPREHENSIVE METABOLIC [id number] 00:00:00* Test Item Value Reference Range Interpretation Comme nts GLUCOSE (test code = 2217) 87 MG/DL BUN (test code = 2208) 19 MG/DL CREATININE (test code = 2214) 1.31 MG/DL eGFR (2020 CKD-EPI) (test co de = 71140) 51 ML/MIN/1.73 CALC BUN/CREAT (test code = [...] (test code = 2219) 13 U/L HEMOGLOBIN [id number] 00:00:00* Test Item Value Reference Range Interpretation Comme nts HEMOGLOBIN A1c (test code = 20930) 7.3 % HEMOGLOBIN [id number] 00:00:00* Test Item Value Reference Range Interpretation Comme nts HEMOGLOBIN A1c (test code = 96634) 7.3 % HEMOGLOBIN [id number] 00:00:00* Test Item Value Reference Range Interpretation Comme nts HEMOGLOBIN A1c (test code = 07019) 7.3 % LIPID [id number] 00:00:00* Test Item Value Reference Range Interpretation Comme nts CHOLESTEROL (test code = 2210) 230 MG/DL TRIGLYCERIDES (test code = 2232) 455 MG/DL HDL CHOLESTEROL (test code = 2220) 35 MG/DL CALC LDL CHOL (test code = 2237) (NOTE) MG/DL RISK RATIO LDL/HDL (test cod e = 2238) 3.83 RATIO LIPID [id number] 00:00:00* Test Item Value Reference Range Interpretation Comme nts CHOLESTEROL (test code = 2210) 230 MG/DL TRIGLYCERIDES (test code = 2232) 455 MG/DL HDL CHOLESTEROL (test code = 2220) 35 MG/DL CALC LDL CHOL (test code = 2237) (NOTE) MG/DL RISK RATIO LDL/HDL (test cod e = 2238) 3.83 RATIO COMPREHENSIVE METABOLIC [id number] 00:00:00* Test Item Value Reference Range Interpretation Comme nts GLUCOSE (test code = 2217) 87 MG/DL BUN (test code = 2208) 19 MG/DL CREATININE (test code = 2214) 1.31 MG/DL eGFR (2020 CKD-EPI) (test co de = 24986) 51 ML/MIN/1.73 CALC BUN/CREAT (test code = [...] code = 2219) 13 U/L COMPREHENSIVE METABOLIC [id number] 00:00:00* Test Item Value Reference Range Interpretation Comme nts GLUCOSE (test code = 2217) 87 MG/DL BUN (test code = 2208) 19 MG/DL CREATININE (test code = 2214) 1.31 MG/DL eGFR (2020 CKD-EPI) (test co de = 77550) 51 ML/MIN/1.73 CALC BUN/CREAT (test code = [...] (test code = 2219) 13 U/L HEMOGLOBIN [id number] 00:00:00* Test Item Value Reference Range Interpretation Comme nts HEMOGLOBIN A1c (test code = 07029) 7.3 % HEMOGLOBIN [id number] 00:00:00* Test Item Value Reference Range Interpretation Comme nts HEMOGLOBIN A1c (test code = 64448) 7.3 % HEMOGLOBIN [id number] 00:00:00* Test Item Value Reference Range Interpretation Comme nts HEMOGLOBIN A1c (test code = 13782) 7.3 % LIPID [id number] 00:00:00* Test Item Value Reference Range Interpretation Comme nts CHOLESTEROL (test code = 2210) 230 MG/DL TRIGLYCERIDES (test code = 2232) 455 MG/DL HDL CHOLESTEROL (test code = 2220) 35 MG/DL CALC LDL CHOL (test code = 2237) (NOTE) MG/DL RISK RATIO LDL/HDL (test cod e = 2238) 3.83 RATIO LIPID [id number] 00:00:00* Test Item Value Reference Range Interpretation Comme nts CHOLESTEROL (test code = 2210) 230 MG/DL TRIGLYCERIDES (test code = 2232) 455 MG/DL HDL CHOLESTEROL (test code = 2220) 35 MG/DL CALC LDL CHOL (test code = 2237) (NOTE) MG/DL RISK RATIO LDL/HDL (test cod e = 2238) 3.83 RATIO COMPREHENSIVE METABOLIC [id number] 00:00:00* Test Item Value Reference Range Interpretation Comme nts GLUCOSE (test code = 2217) 147 MG/DL BUN (test code = 2208) 23 MG/DL CREATININE (test code = 2214) 1.27 MG/DL eGFR AMER. (test cod e = 61282) 59 ML/MIN/1.73 eGFR NON- AMER. (test code = 42231) 51 ML/MIN/1.73 CALC BUN/CREAT (test code = [...] 2204) 92 U/L AST (test code = 221) 18 U/L ALT (test code = 2219) 11 U/L HEMOGLOBIN [id number] 00:00:00* Test Item Value Reference Range Interpretation Comme nts HEMOGLOBIN A1c (test code = 36608) 7.2 % HEMOGLOBIN [id number] 00:00:00* Test Item Value Reference Range Interpretation Comme nts HEMOGLOBIN A1c (test code = 28265) 7.2 % HEMOGLOBIN [id number] 00:00:00* Test Item Value Reference Range Interpretation Comme nts HEMOGLOBIN A1c (test code = 21059) 7.2 % LIPID [id number] 00:00:00* Test Item Value Reference Range Interpretation Comme nts CHOLESTEROL (test code = 2210) 250 MG/DL TRIGLYCERIDES (test code = 2232) 312 MG/DL HDL CHOLESTEROL (test code = 2220) 41 MG/DL CALC LDL CHOL (test code = 2237) 161 MG/DL RISK RATIO LDL/HDL (test cod e = 2238) 3.93 RATIO LIPID [id number] 00:00:00* Test Item Value Reference Range Interpretation Comme nts CHOLESTEROL (test code = 2210) 250 MG/DL TRIGLYCERIDES (test code = 2232) 312 MG/DL HDL CHOLESTEROL (test code = 2220) 41 MG/DL CALC LDL CHOL (test code = 2237) 161 MG/DL RISK RATIO LDL/HDL (test cod e = 2238) 3.93 RATIO COMPREHENSIVE METABOLIC [id number] 00:00:00* Test Item Value Reference Range Interpretation Comme nts GLUCOSE (test code = 2217) 147 MG/DL BUN (test code = 2208) 23 MG/DL CREATININE (test code = 2214) 1.27 MG/DL eGFR AMER. (test cod e = 44849) 59 ML/MIN/1.73 eGFR NON- AMER. (test code = 99840) 51 ML/MIN/1.73 CALC BUN/CREAT (test code = [...] code = 2219) 11 U/L COMPREHENSIVE METABOLIC [id number] 00:00:00* Test Item Value Reference Range Interpretation Comme nts GLUCOSE (test code = 2217) 147 MG/DL BUN (test code = 2208) 23 MG/DL CREATININE (test code = 2214) 1.27 MG/DL eGFR AMER. (test cod e = 38648) 59 ML/MIN/1.73 eGFR NON- AMER. (test code = 53669) 51 ML/MIN/1.73 CALC BUN/CREAT (test code = [...] (test code = 2219) 11 U/L HEMOGLOBIN [id number] 00:00:00* Test Item Value Reference Range Interpretation Comme nts HEMOGLOBIN A1c (test code = 08930) 7.2 % HEMOGLOBIN [id number] 00:00:00* Test Item Value Reference Range Interpretation Comme nts HEMOGLOBIN A1c (test code = 60366) 7.2 % HEMOGLOBIN [id number] 00:00:00* Test Item Value Reference Range Interpretation Comme nts HEMOGLOBIN A1c (test code = 65877) 7.2 % LIPID [id number] 00:00:00* Test Item Value Reference Range Interpretation Comme nts CHOLESTEROL (test code = 2210) 250 MG/DL TRIGLYCERIDES (test code = 2232) 312 MG/DL HDL CHOLESTEROL (test code = 2220) 41 MG/DL CALC LDL CHOL (test code = 2237) 161 MG/DL RISK RATIO LDL/HDL (test cod e = 2238) 3.93 RATIO LIPID [id number] 00:00:00* Test Item Value Reference Range Interpretation Comme nts CHOLESTEROL (test code = 2210) 250 MG/DL TRIGLYCERIDES (test code = 2232) 312 MG/DL HDL CHOLESTEROL (test code = 2220) 41 MG/DL CALC LDL CHOL (test code = 2237) 161 MG/DL RISK RATIO LDL/HDL (test cod e = 2238) 3.93 RATIO COMPREHENSIVE METABOLIC [id number] 00:00:00* Test Item Value Reference Range Interpretation Comme nts GLUCOSE (test code = 2217) 147 MG/DL BUN (test code = 2208) 23 MG/DL CREATININE (test code = 2214) 1.27 MG/DL eGFR AMER. (test cod e = 56549) 59 ML/MIN/1.73 eGFR NON- AMER. (test code = 63351) 51 ML/MIN/1.73 CALC BUN/CREAT (test code = [...] = 2219) 11 U/L PAP TEST, THINPREP, [id number] 00:00:00* Test Item Value Reference Range Interpretation Comme nts SOURCE: (test code = 8001) Endocervical SLIDES: (test code = 8011) 1 LMP: (test code = 8021) 06/27/2020 SPECIMEN ADEQUACY: (test code = 15301) (NOTE) INTERPRETATION: (test code = 84334) NILM/NO EPITH. ABNORMALITY;SEE BELOW APPEALS SPECIALIST: (test code = 8101) OSCAR Heaton(ASCP) QC TECHNOLOGIST: (test code = 8111) [facility]IAC LOCATION: (test code = 73428) (NOTE) CPT: (test code = 8140) (NOTE) PAP TEST, THINPREP, [id number] 00:00:00* Test Item Value Reference Range Interpretation Comme nts SOURCE: (test code = 8001) Endocervical SLIDES: (test code = 8011) 1 LMP: (test code = 8021) 06/27/2020 SPECIMEN ADEQUACY: (test code = 38866) (NOTE) INTERPRETATION: (test code = 38105) NILM/NO EPITH. ABNORMALITY;SEE BELOW APPEALS SPECIALIST: (test code = 8101) OSCAR Heaton(ASCP) QC TECHNOLOGIST: (test code = 8111) [facility](AS[facility]IAC LOCATION: (test code = 25736) (NOTE) CPT: (test code = 8140) (NOTE) PAP TEST, THINPREP, [id number] 00:00:00* Test Item Value Reference Range Interpretation Comme nts SOURCE: (test code = 8001) Endocervical SLIDES: (test code = 8011) 1 LMP: (test code = 8021) 06/27/2020 SPECIMEN ADEQUACY: (test code = 98345) (NOTE) INTERPRETATION: (test code = 67391) NILM/NO EPITH. ABNORMALITY;SEE BELOW APPEALS SPECIALIST: (test code = 8101) OSCAR Heaton(ASCP) QC TECHNOLOGIST: (test code = 8111) [facility])IAC LOCATION: (test code = 29908) (NOTE) CPT: (test code = 8140) (NOTE) PAP TEST, THINPREP, [id number] 00:00:00* Test Item Value Reference Range Interpretation Comme nts SOURCE: (test code = 8001) Endocervical SLIDES: (test code = 8011) 1 LMP: (test code = 8021) 06/27/2020 SPECIMEN ADEQUACY: (test code = 45157) (NOTE) INTERPRETATION: (test code = 96386) NILM/NO EPITH. ABNORMALITY;SEE BELOW APPEALS SPECIALIST: (test code = 8101) OSCAR Heaton(ASCP) QC TECHNOLOGIST: (test code = 8111) [facility]IAC LOCATION: (test code = 94686) (NOTE) CPT: (test code = 8140) (NOTE) CULTURE, [id number] 00:00:00* Test Item Value Reference Range Interpretation Comme nts CULTURE, URINE (test code = 84250) SPECIMEN NUMBER: [id number] CULTURE, [id number] 00:00:00* Test Item Value Reference Range Interpretation Comme nts CULTURE, URINE (test code = 13605) SPECIMEN NUMBER: [id number] CULTURE, [id number] 00:00:00* Test Item Value Reference Range Interpretation Comme nts CULTURE, URINE (test code = 77428) SPECIMEN NUMBER: [id number] CULTURE, [id number] 00:00:00* Test Item Value Reference Range Interpretation Comme nts CULTURE, URINE (test code = 15177) SPECIMEN NUMBER: [id number] HPV HIGH RISK WITH GENOTYPE, [id number] 00:00:00* Test Item Value Reference Range Interpretation Comme nts HPV HIGH RISK INTERP (test c ode = 29341) POSITIVE HPV 16 (test code = 03100) NEGATIVE HPV 18 (test code = 51342) NEGATIVE HPV, HR, OTHER GENOTYPES (te st code = 90306) POSITIVE HPV HIGH RISK WITH GENOTYPE, [id number] 00:00:00* Test Item Value Reference Range Interpretation Comme nts HPV HIGH RISK INTERP (test c ode = 86827) POSITIVE HPV 16 (test code = 74834) NEGATIVE HPV 18 (test code = 81311) NEGATIVE HPV, HR, OTHER GENOTYPES (te st code = 30996) POSITIVE HPV HIGH RISK WITH GENOTYPE, [id number] 00:00:00* Test Item Value Reference Range Interpretation Comme nts HPV HIGH RISK INTERP (test c ode = 12185) POSITIVE HPV 16 (test code = 20685) NEGATIVE HPV 18 (test code = 60064) NEGATIVE HPV, HR, OTHER GENOTYPES (te st code = 35195) POSITIVE HPV HIGH RISK WITH GENOTYPE, [id number] 00:00:00* Test Item Value Reference Range Interpretation Comme nts HPV HIGH RISK INTERP (test c ode = 24349) POSITIVE HPV 16 (test code = 53011) NEGATIVE HPV 18 (test code = 03252) NEGATIVE HPV, HR, OTHER GENOTYPES (te st code = 28990) POSITIVE VITAMIN D, 25 [id number] 00:00:00* Test Item Value Reference Range Interpretation Comme nts VITAMIN D, 25 OH (test code = 4958) TEST NOT PERFORMED NG/ML VITAMIN D, 25 [id number] 00:00:00* Test Item Value Reference Range Interpretation Comme nts VITAMIN D, 25 OH (test code = 4958) TEST NOT PERFORMED NG/ML VITAMIN D, 25 [id number] 00:00:00* Test Item Value Reference Range Interpretation Comme nts VITAMIN D, 25 OH (test code = 4958) TEST NOT PERFORMED NG/ML VITAMIN D, 25 [id number] 00:00:00* Test Item Value Reference Range Interpretation Comme nts VITAMIN D, 25 OH (test code = 4958) TEST NOT PERFORMED NG/ML CBC W/AUTO [id number] 00:00:00* Test Item Value Reference Range Interpretation [...] ABS NUCLEATED RBCS (test cod e = 94936) 0.00 K/UL CBC W/AUTO [id number] 00:00:00* Test Item Value Reference Range Interpretation [...] ABS NUCLEATED RBCS (test cod e = 75838) 0.00 K/UL CBC W/AUTO [id number] 00:00:00* Test Item Value Reference Range Interpretation [...] ABS NUCLEATED RBCS (test cod e = 32069) 0.00 K/UL CBC W/AUTO [id number] 00:00:00* Test Item Value Reference Range Interpretation [...] ABS NUCLEATED RBCS (test cod e = 55700) 0.00 K/UL CBC W/AUTO [id number] 00:00:00* Test Item Value Reference Range Interpretation [...] ABS NUCLEATED RBCS (test cod e = 81257) 0.00 K/UL CBC W/AUTO [id number] 00:00:00* Test Item Value Reference Range Interpretation [...] ABS NUCLEATED RBCS (test cod e = 87080) 0.00 K/UL COMPREHENSIVE METABOLIC [id number] 00:00:00* Test Item Value Reference Range Interpretation Comme nts GLUCOSE (test code = 2217) 300 MG/DL BUN (test code = 2208) 23 MG/DL CREATININE (test code = 2214) 1.24 MG/DL eGFR AMER. (test cod e = 10128) 60 ML/MIN/1.73 eGFR NON- AMER. (test code = 37732) 52 ML/MIN/1.73 CALC BUN/CREAT (test code = [...] code = 2219) 12 U/L COMPREHENSIVE METABOLIC [id number] 00:00:00* Test Item Value Reference Range Interpretation Comme nts GLUCOSE (test code = 2217) 300 MG/DL BUN (test code = 2208) 23 MG/DL CREATININE (test code = 2214) 1.24 MG/DL eGFR AMER. (test cod e = 65165) 60 ML/MIN/1.73 eGFR NON- AMER. (test code = 63196) 52 ML/MIN/1.73 CALC BUN/CREAT (test code = [...] 1.0 RATIO BILIRUBIN, TOTAL (test code = 2206) <0.2 MG/DL ALKALINE PHOSPHATASE (test code = 2203) 114 U/L AST (test code = 2217) 12 U/L ALT (test code = 2219) 12 U/L [id number] 00:00:00* Test Item Value Reference Range Interpretation Comme nts TSH, THIRD GENERATION (test code = 2821) 6.280 UIU/ML [id number] 00:00:00* Test Item Value Reference Range Interpretation Comme nts TSH, THIRD GENERATION (test code = 2821) 6.280 UIU/ML [id number] 00:00:00* Test Item Value Reference Range Interpretation Comme nts TSH, THIRD GENERATION (test code = 2821) 6.280 UIU/ML HEMOGLOBIN [id number] 00:00:00* Test Item Value Reference Range Interpretation Comme nts HEMOGLOBIN A1c (test code = 19900) 11.5 % HEMOGLOBIN [id number] 00:00:00* Test Item Value Reference Range Interpretation Comme nts HEMOGLOBIN A1c (test code = 49346) 11.5 % HEMOGLOBIN [id number] 00:00:00* Test Item Value Reference Range Interpretation Comme nts HEMOGLOBIN A1c (test code = 07598) 11.5 % LIPID [id number] 00:00:00* Test Item Value Reference Range Interpretation Comme nts CHOLESTEROL (test code = 2210) 260 MG/DL TRIGLYCERIDES (test code = 2232) 353 MG/DL HDL CHOLESTEROL (test code = 2220) 40 MG/DL CALC LDL CHOL (test code = 2237) 160 MG/DL RISK RATIO LDL/HDL (test cod e = 2238) 4.00 RATIO LIPID [id number] 00:00:00* Test Item Value Reference Range Interpretation Comme nts CHOLESTEROL (test code = 2210) 260 MG/DL TRIGLYCERIDES (test code = 2232) 353 MG/DL HDL CHOLESTEROL (test code = 2220) 40 MG/DL CALC LDL CHOL (test code = 2237) 160 MG/DL RISK RATIO LDL/HDL (test cod e = 2238) 4.00 RATIO COMPREHENSIVE METABOLIC [id number] 00:00:00* Test Item Value Reference Range Interpretation Comme nts GLUCOSE (test code = 2217) 300 MG/DL BUN (test code = 2208) 23 MG/DL CREATININE (test code = 2214) 1.24 MG/DL eGFR AMER. (test cod e = 65631) 60 ML/MIN/1.73 eGFR NON- AMER. (test code = 23831) 52 ML/MIN/1.73 CALC BUN/CREAT (test code = [...] code = 2219) 12 U/L COMPREHENSIVE METABOLIC [id number] 00:00:00* Test Item Value Reference Range Interpretation Comme nts GLUCOSE (test code = 2217) 300 MG/DL BUN (test code = 2208) 23 MG/DL CREATININE (test code = 2214) 1.24 MG/DL eGFR AMER. (test cod e = 81963) 60 ML/MIN/1.73 eGFR NON- AMER. (test code = 11132) 52 ML/MIN/1.73 CALC BUN/CREAT (test code = 2235) 19 RATIO SODIUM (test code = 2231) 140 MEQ/L POTASSIUM (test code = 2228) 4.3 MEQ/L CHLORIDE (test code = 2215) 104 MEQ/L CARBON DIOXIDE (test code = 2206) 26 MEQ/L CALCIUM (test code = 2209) 9.1 MG/DL PROTEIN, TOTAL (test code = 222) 7.5 G/DL ALBUMIN (test code = 2201) 3.7 G/DL CALC GLOBULIN (test code = 2240) 3.8 G/DL CALC A/G RATIO (test code = 2234) 1.0 RATIO BILIRUBIN, TOTAL (test code = 2206) <0.2 MG/DL ALKALINE PHOSPHATASE (test code = 2203) 114 U/L AST (test code = 2217) 12 U/L ALT (test code = 2218) 12 U/L [id number] 00:00:00* Test Item Value Reference Range Interpretation Comme nts TSH, THIRD GENERATION (test code = 2821) 6.280 UIU/ML [id number] 00:00:00* Test Item Value Reference Range Interpretation Comme nts TSH, THIRD GENERATION (test code = 2821) 6.280 UIU/ML [id number] 00:00:00* Test Item Value Reference Range Interpretation Comme nts TSH, THIRD GENERATION (test code = 2821) 6.280 UIU/ML HEMOGLOBIN [id number] 00:00:00* Test Item Value Reference Range Interpretation Comme nts HEMOGLOBIN A1c (test code = 97234) 11.5 % HEMOGLOBIN [id number] 00:00:00* Test Item Value Reference Range Interpretation Comme nts HEMOGLOBIN A1c (test code = 38986) 11.5 % HEMOGLOBIN [id number] 00:00:00* Test Item Value Reference Range Interpretation Comme nts HEMOGLOBIN A1c (test code = 23371) 11.5 % LIPID [id number] 00:00:00* Test Item Value Reference Range Interpretation Comme nts CHOLESTEROL (test code = 2210) 260 MG/DL TRIGLYCERIDES (test code = 2232) 353 MG/DL HDL CHOLESTEROL (test code = 2219) 40 MG/DL CALC LDL CHOL (test code = 2237) 160 MG/DL RISK RATIO LDL/HDL (test cod e = 2238) 4.00 RATIO LIPID [id number] 00:00:00* Test Item Value Reference Range Interpretation Comme nts CHOLESTEROL (test code = 2210) 260 MG/DL TRIGLYCERIDES (test code = 2232) 353 MG/DL HDL CHOLESTEROL (test code = 2220) 40 MG/DL CALC LDL CHOL (test code = 2237) 160 MG/DL RISK RATIO LDL/HDL (test cod e = 2238) 4.00 RATIO COMPREHENSIVE METABOLIC [id number] 00:00:00* Test Item Value Reference Range Interpretation Comme nts GLUCOSE (test code = 2217) 313 MG/DL BUN (test code = 2208) 15 MG/DL CREATININE (test code = 2214) 0.71 MG/DL eGFR AMER. (test cod e = 51272) 123 ML/MIN/1.73 eGFR NON- AMER. (test code = 25066) 106 ML/MIN/1.73 CALC BUN/CREAT (test code = [...] code = 2219) 11 U/L COMPREHENSIVE METABOLIC [id number] 00:00:00* Test Item Value Reference Range Interpretation Comme nts GLUCOSE (test code = 2217) 313 MG/DL BUN (test code = 2208) 15 MG/DL CREATININE (test code = 2214) 0.71 MG/DL eGFR AMER. (test cod e = 56110) 123 ML/MIN/1.73 eGFR NON- AMER. (test code = 98816) 106 ML/MIN/1.73 CALC BUN/CREAT (test code = [...] (test code = 2219) 11 U/L LIPID [id number] 00:00:00* Test Item Value Reference Range Interpretation Comme nts CHOLESTEROL (test code = 2210) 244 MG/DL TRIGLYCERIDES (test code = 2232) 376 MG/DL HDL CHOLESTEROL (test code = 2220) 48 MG/DL CALC LDL CHOL (test code = 2237) 121 MG/DL RISK RATIO LDL/HDL (test cod e = 2238) 2.52 RATIO LIPID [id number] 00:00:00* Test Item Value Reference Range Interpretation [...] (test code = 2821) 17.0 UIU/ML HEMOGLOBIN [id number] 00:00:00* Test Item Value Reference Range Interpretation Comme nts HEMOGLOBIN A1c (test code = 40978) 12.3 % HEMOGLOBIN [id number] 00:00:00* Test Item Value Reference Range Interpretation Comme nts HEMOGLOBIN A1c (test code = 24894) 12.3 % HEMOGLOBIN [id number] 00:00:00* Test Item Value Reference Range Interpretation Comme nts HEMOGLOBIN A1c (test code = 80688) 12.3 % CBC W/AUTO [id number] 00:00:00* Test Item Value Reference Range Interpretation [...] code = 1015) 408 K/UL CBC W/AUTO [id number] 00:00:00* Test Item Value Reference Range Interpretation [...] code = 1015) 408 K/UL CBC W/AUTO [id number] 00:00:00* Test Item Value Reference Range Interpretation [...] code = 1015) 408 K/UL COMPREHENSIVE METABOLIC [id number] 00:00:00* Test Item Value Reference Range Interpretation Comme nts GLUCOSE (test code = 2217) 313 MG/DL BUN (test code = 2208) 15 MG/DL CREATININE (test code = 2214) 0.71 MG/DL eGFR AMER. (test cod e = 91290) 123 ML/MIN/1.73 eGFR NON- AMER. (test code = 67193) 106 ML/MIN/1.73 CALC BUN/CREAT (test code = [...] code = 2219) 11 U/L COMPREHENSIVE METABOLIC [id number] 00:00:00* Test Item Value Reference Range Interpretation Comme nts GLUCOSE (test code = 2217) 313 MG/DL BUN (test code = 2208) 15 MG/DL CREATININE (test code = 2214) 0.71 MG/DL eGFR AMER. (test cod e = 15102) 123 ML/MIN/1.73 eGFR NON- AMER. (test code = 68110) 106 ML/MIN/1.73 CALC BUN/CREAT (test code = [...] (test code = 2219) 11 U/L LIPID [id number] 00:00:00* Test Item Value Reference Range Interpretation Comme nts CHOLESTEROL (test code = 2210) 244 MG/DL TRIGLYCERIDES (test code = 2232) 376 MG/DL HDL CHOLESTEROL (test code = 2220) 48 MG/DL CALC LDL CHOL (test code = 2237) 121 MG/DL RISK RATIO LDL/HDL (test cod e = 2238) 2.52 RATIO LIPID [id number] 00:00:00* Test Item Value Reference Range Interpretation [...] (test code = 2821) 17.0 UIU/ML HEMOGLOBIN [id number] 00:00:00* Test Item Value Reference Range Interpretation Comme nts HEMOGLOBIN A1c (test code = 20735) 12.3 % HEMOGLOBIN [id number] 00:00:00* Test Item Value Reference Range Interpretation Comme nts HEMOGLOBIN A1c (test code = 20127) 12.3 % HEMOGLOBIN [id number] 00:00:00* Test Item Value Reference Range Interpretation Comme nts HEMOGLOBIN A1c (test code = 49880) 12.3 % CBC W/AUTO [id number] 00:00:00* Test Item Value Reference Range Interpretation [...] code = 1015) 408 K/UL CBC W/AUTO [id number] 00:00:00* Test Item Value Reference Range Interpretation [...] code = 1015) 408 K/UL CBC W/AUTO [id number] 00:00:00* Test Item Value Reference Range Interpretation [...] Notes Date/Time Note Provider Source 2023-02-16 11:07:50 wSnAbIFuLD7RLpU60Ze+ w8R7EszeIAo1hyw0BWXPI+ /R3Fip6o1Ff7jFl12j5Pwm9832-18-57J51:07:50F ormatting of this note is different from the original.CC: uterine prolapse, abnl uterine bleeding, MISTY, cystoceleHPI: Nan Bradford is a 47 year old year [...] da josé TLH w/ bilateral salpingectomy per or followed with anterior repair and SSLF, along [...] N/A 3Performed by Keshawn Jones MD at [facility] ASCTUBAL LIGATIONUPPER GI ENDOSCOPY, BIOPSY N/A 3Performed by Keshawn Jones MD at [facility] ASCCurrent Outpatient Medications on File [...] TLH w/ bilateral salpingectomy on 03/02/23 at [facility] in [facility] per or followed with anterior repair and SSLF, along [...] pain meds escribed today (norco and motrin). 88283-2Cmkjron and physical fpuaDD9340-42-51F92:43:46History and physical noteTXT1.2.840.342428.1.13.131.2.7.2.57742 9|[id number] for patient yvbi03495-0Vzsmizl and physical noteLNNARRATIVEFormatted C-CDA narrative [facility] PlanoWBOSFUZEYSPDDOEKTG8282695323PLDA7371- 01-09T16:43:461.2.840.088551.1.72.3.15|1.2 .840.335252.1.13.131.2.7.2.727879_[id number] 1 [facility] Notes Date/Time Note Provider Source 2023-02-24 01:23:43 t4i7RnIlY5IOOeOVUk4WiXppHizA8KnZ9yg z3m7YNYR1UUAWR5HixaOdKRq4zOBI3934-1 01:23:43 Pt given printed and verbal discharge [...] with steady gait, in no apparent distress 22940-7Alxlbxhyc department DiwhCC8785-62-47P71:25:15[facility] NoteTXT1.2.840.659345.1.13.104.2.7. 2.697360|[id number] for patient okoy48254-7FbclAADYNPTDOOEPfnxndlae C-CDA narrative [id number] A Diaz RN[address] Aq[id number] 1RXNKLIIPABWWWCLUXTEANV7553-17-00H1 1:25:151.2.840.459692.1.72.3.15|1.2 .840.727029.1.13.104.2.7.2.727879_2 [id number] Mary Garay RN [facility] 2023-02-23 23:02:11 LqzfidtiqJxCLZVmZThRA4vis060GdQMZOO iBIPM7m85qmWIHOa0oMWuWf3Pg0iv8756-9 02-23T23:02:11 Report given to KARELY Garay 95637-2Nsdhnnvtc department PgosAQ1280-96-50D40:02:24[facility] NoteTXT1.2.840.560573.1.13.104.2.7. 2.962995|[id number] for patient unko51099-3IoheATCLSHCBSYKQyqdfsaht C-CDA narrative [id number] M Herrera RN[id number] 7JJWWPVBAJFSTLOCNYLTJCW3188-48-93C7 3:02:241.2.840.641640.1.72.3.15|1.2 .840.233229.1.13.104.2.7.2.727879_2 [id number] Abbi Patel RN [facility] 2023-02-23 22:17:43 WBrlo9G61R11Fo4gRgVH5U4vBNKE04XA35q s8lkDXmRrP3WGcvarYKmNUp32N1lM6264-9 02-23T22:17:43 Patient aware of urine sample needed. Unable to provide sample at this time. Urine cup at bedside. 73415-5Juuibeilt department FaygBW3791-86-78R89:18:14Emergency department NoteTXT1.2.840.590623.1.13.104.2.7. 2.902271|[id number] for patient uwsb20049-6HczqFBCIWJEYOZKXlnuuqakf C-CDA narrative [id number]-Dzkrg McInnis RN[id number] 4WZAZODLWUYDIRJKJUGMZGQ8014-81-23R0 2:18:141.2.840.356729.1.72.3.15|1.2 .840.367621.1.13.104.2.7.2.727879_2 [id number] Pamela Vasquez RN [facility] 2023-02-23 21:34:10 jeTgic3+rXq3b+0S1RSwOP0wz3GGo49pzzc aQwF0vi3wxnhQeMK7BpYV4ECihIed9566-1 02-23T21:34:10Summary: Triage CC: patient is having vomiting and abdominal pain that started at 0600 upper mid abdominal pain, patient is vomiting in triagePMHx: diabetes and HTNPSH:noneMEDS:glipizide, esomerprazole, latanoprost, levothyroxine, sitagliptin, atorvastatin, IronLMP: 02/23/23Tetanus: unknownAwake, alert, oriented, resp reg unlabored, skin warm, color appropriate for race, moves all ext without difficulty, amb with without assistanceAppears in none distress 60590-6Unvhhjpmv department Triage ssvxBM8944-34-34Y18:40:00[facility] Triage noteTXT1.2.840.909700.1.13.104.2.7. 2.602455|[id number] for patient xjuy94708-5Iiipdnggt department NoteLNNARRATIVEFormatted C-CDA narrative [id number] Schroeder RN[address] Ub[id number] 1WSDNFWHJPCCTJLIALCKQZR8927-06-16B4 1:40:001.2.840.417703.1.72.3.15|1.2 .840.805100.1.13.104.2.7.2.727879_2 [id number] Gudelia Graf RN [facility] 2023-02-16 13:13:20 54jFkWHSotNmCW2F7Ez+KPeOVt+q2wcqqCx ullECuTouV4bUFXR1EH9pSLO87KSV6327-6 3:13:20 Chief ComplaintPatient presents withPre-[place] [address]-6Gunbs SnsuXO1150-47-23L13:28:09Nurse NoteTXT1.2.840.484214.1.13.131.2.7. 2.900932|[id number] for patient laht25933-9Bhwqw NoteLNNARRATIVEFormatted C-CDA narrative text[id number] AT0717-81-08F99:28:091.2.840.601566 .1.72.3.15|1.2.840.043650.1.13.131. 2.7.2.727879_[id number] [facility] 2023-02-16 11:06:27 4HN+WqPFVH2GEm5YImDwlsA4DyIqS8kxvxl qjHLrVIaPBMbf+dsac/gxNDH4V6xP6863-8 1:06:27 Chief ComplaintPatient [place] [address]-5Zadxo VwvcZX0959-73-20H56:06:38Nurse NoteTXT1.2.840.103109.1.13.131.2.7. 2.511493|[id number] for patient wbbi65519-4Zueth NoteLNNARRATIVEFormatted C-CDA narrative [id number] M Velo CMA [facility] Nguyen [id number] OO2966-12-12M95:06:381.2.840.230975 .1.72.3.15|1.2.840.579162.1.13.131. 2.7.2.727879_[id number] Estelita Maya CMA I [facility] 2023-02-03 14:18:43 HVCHekh7PwWZqIidFnjVY+/biySc9rCUvmb vfMlZb/YLe/ta4sJHaxIt4qegIBjl5846-0 4:18:43 Chief ComplaintPatient presents withConsultationReferral for Pain in both hands, Erosive osteoarthritis of [place] [address]-8Ozizm UyzxEG6842-66-06Y58:19:20Nurse NoteTXT1.2.840.331911.1.13.131.2.7. 2.109894|[id number] for patient cgkz51906-7Blrok NoteLNNARRATIVEFormatted C-CDA narrative [facility] [place], [place] [id number] FY3315-51-14G08:19:201.2.840.408882 .1.72.3.15|1.2.840.317330.1.13.131. 2.7.2.727879_[id number] [facility] 2022-10-27 14:21:58 V42v/hjyeCu+i5d2TU+YMPf8BuzXS1L3FWD lgbK9kfyIcU5ZEWV0IqFqrv74ESNl7327-2 4:21:58 Chief Complaint Patient presents with OTHER cystocele 22509-0Pikfo XiqhRZ7783-42-95V28:23:03Nurse NoteTXT1.2.840.632033.1.13.131.2.7. 2.792504|[id number] for patient pxwb46218-4Mwupd NoteLNKELMount St. [facility]2727 [facility].[id number] YR8852-98-42M65:23:031.2.840.613757 .1.72.3.15|1.2.840.985285.1.13.131. 2.7.2.727879_[id number] [facility] 2022-10-26 14:32:30 tgDS8KnnNGoWjnZkzAB201TkGXdDaCR9PRB wav8qq4tbleUytn9L+RBJute7oHho0903-7 4:32:30 Chief Complaint Patient presents with Follow-Up Visit Follow up- right chronic lisfranc injury Jul 2021. She has Cd with images. Also Today had an Xray on file. She wants to know if she need surgery. Tabitha Manuellectronically signed by Tabitha Hill at 10/26/2022 2:33 PM WUY37622-4Dgfof JkkiQW9773-24-14R99:33:36Nurse NoteTXT1.2.840.473355.1.13.131.2.7. 2.816337|[id number] for patient qrhq98304-3Eqiiz [id number] [facility]27[facility].[id number] WE3245-46-62Y54:33:361.2.840.569051 .1.72.3.15|1.2.840.927272.1.13.131. 2.7.2.727879_[id number] Tabitha Hill [facility] 2022-09-03 15:25:19 ZgQGIRaWtd5mgzXVLX4ajUqofiurPuT7UHz MkJjXCa0xXKKJSEwqnYQSfrBhcz4O6600-7 :25:19 Chief Complaint Patient presents with Vaginal Problem States she feels a lump on the inside of her vagina states there is pressure, when she sits down she can feel the mass, states no bleeding, no odor or discharge change. Has been ongoing for 1 week Tegan Kohler CMA I Patient has not taken her medication today 79861-8Bgmly UfvsBN1568-17-34U10:25:42Nurse NoteTXT1.2.840.541877.1.13.131.2.7. 2.931660|[id number] for patient [facility] [place], [place] [id number] AQ2999-28-59V85:25:421.2.840.347618 .1.72.3.15|1.2.840.360582.1.13.131. 2.7.2.727879_[id number] [facility]
[2023-03-07] MEDS ORDERED: FAMOTIDINE 20 MG/2 ML VIAL IV ONE (03:34)
[2023-03-07] MEDS ORDERED: PROMETHAZINE INJ 25 MG/ML AMP ONE ×2 (03:34→08:09)
[2023-03-07] MEDS ORDERED: NA CHLORIDE 0.9% 1,000 ML ONE (03:35)
[2023-03-07 03:54] LABS: Protime INR 1.07
[2023-03-07 04:00] LABS: Absolute Lymphocytes (CBC) 2.2 K/uL (0.7-4.9); Hematocrit 32.9 % (36.0-45.0); Lymphocytes % 16.2 % (15.3-44.8); MCV 92.3 fL (80-100); MPV 7.4 fL (7.6-11.3); Platelets 598 thou/uL (152-406); RBC Red Blood Cell Count 3.56 M/uL (3.86-4.86)
[2023-03-07 04:11] LABS: Albumin 3.1 g/dL (3.4-5.0); Bilirubin Direct 0.1 mg/dL (0-0.2); Bilirubin Indirect, Calculated 0.3 mg/dL (0.2-0.8); Bilirubin Total 0.4 mg/dL (0.2-1.0); Magnesium 1.9 mg/dL (1.6-2.4); Potassium 4.3 mEq/L (3.5-5.1); Protein, Total 8.5 g/dL (6.4-8.2); Troponin High Sensitivity 10.2 pg/mL (<58.9)
[2023-03-07] MEDS ORDERED: HYDRALAZINE HCL 20 MG/ML VIAL ONE (05:56)
--- NOTE | 2023-03-07 06:05 | ER ---
Nurse's Notes [facility] Name: Elsy Bradford Age: 48 yrs Sex: Female : 1975 Arrival Date: 03/07/2023 Time: 03:11 Bed 13 Private MD: Diagnosis: Nausea with vomiting, unspecified;Abdominal pain, unspecified;Unspecified kidney failure Presentation: 03/07 03:28 Chief complaint: Spouse and/or significant other states: Had her gallbladder removed by vc1 Dr. Rodriguez on the nd yesterday around 0930 am she started throwing up and has been throwing up ever since. She is also in a lot of pain. Coronavirus screen: At this time, the client does not indicate any symptoms associated with coronavirus-19. Ebola Screen: Patient negative for fever greater than or equal to 101.5 degrees Fahrenheit, and additional compatible Ebola Virus Disease symptoms Patient denies exposure to infectious person. Patient denies travel to an Ebola-affected area in the 21 days before illness onset. No symptoms or risks identified at this time. Initial Sepsis Screen: Does the patient meet any 2 criteria? HR > 90 bpm. No. Patient's initial sepsis screen is negative. Does the patient have a suspected source of infection? Yes: Skin breakdown/wound. Risk Assessment: Do you want to hurt yourself or someone else? Patient reports no desire to harm self or others. Onset of symptoms was March 06, 2023 at 09:30. 03:28 Method Of Arrival: Ambulatory vc1 03:28 Acuity: ALIN 3 vc1 Triage Assessment: 03:34 General: Appears distressed, uncomfortable, Behavior is cooperative, crying, restless. vc1 Pain: Complains of pain in epigastric area, umbilical area and abdomen diffusely Pain radiates to posterior aspect of right lateral abdomen, anterior aspect of right lateral abdomen, posterior aspect of left lateral abdomen and anterior aspect of left lateral abdomen Pain currently is 10 out of 10 on a pain scale. Quality of pain is described as sharp, Pain began 1 day ago. Is continuous, Noted to be crying, grimacing, moaning, restless, Also complains of nausea, vomiting. EENT: No deficits noted. No signs and/or symptoms were reported regarding the EENT system. Neuro: No deficits noted. Cardiovascular: No deficits noted. Respiratory: Airway is patent Respiratory effort is even, unlabored, Respiratory pattern is regular, symmetrical. GI: Reports lower abdominal pain, upper abdominal pain, constipation, nausea, vomiting. : No deficits noted. No signs and/or symptoms were reported regarding the genitourinary system. Derm: No deficits noted. No signs and/or symptoms reported regarding the dermatologic system. Musculoskeletal: No deficits noted. No signs and/or symptoms reported regarding the musculoskeletal system. Historical: - Allergies: 03:31 HYDROCODONE; vc1 - PMHx: 03:31 Diabetes - NIDDM; GERD; High Cholesterol; Hypertension; Thyroid problem; vc1 - PSHx: 03:31 Cholecystectomy (March 01, 2023); vc1 - Immunization history:: Adult Immunizations up to date. - Social history:: Smoking status: Patient denies any tobacco usage or history of. Patient uses alcohol, occasionally. Screenin:32 [facility] ED Fall Risk Assessment (Adult) History of falling in the last 3 months, lg3 including since admission No falls in past 3 months (0 pts). Abuse screen: Denies threats or abuse. Denies injuries from another. Nutritional screening: No deficits noted. Tuberculosis screening: No symptoms or risk factors identified. 03:34 [facility] ED Fall Risk Assessment (Adult) History of falling in the last 3 months, vc1 including since admission No falls in past 3 months (0 pts) Confusion or Disorientation No (0 pts) Intoxicated or Sedated No (0 pts) Impaired Gait No (0 pts) Mobility Assist Device Used No (0 pt) Altered Elimination No (0 pt) Score/Fall Risk Level 0 - 2 = Low Risk Oriented to surroundings, Maintained a safe environment, Educated pt \T\ family on fall prevention, incl call for assistance when getting out of bed. Abuse screen: Denies threats or abuse. Nutritional screening: No deficits noted. Tuberculosis screening: No symptoms or risk factors identified. Assessment: 03:32 General: Appears in no apparent distress. uncomfortable, Behavior is crying, fussy. lg3 Pain: Complains of pain in abdomen Pain radiates to back Noted to be agitated, crying, grimacing, guarding, moaning, restless. Neuro: Braxton Agitation-Sedation Scale (RASS): +1 Restless Level of Consciousness is awake, alert, obeys commands, Oriented to person, place, time, situation. Cardiovascular: No deficits noted. Denies chest pain, shortness of breath, Capillary refill < 3 seconds Clubbing of nail beds is absent JVD is absent Patient's skin is warm and dry. Respiratory: No deficits noted. Airway is patent Respiratory effort is even, unlabored, Respiratory pattern is regular, symmetrical. GI: Abdomen is round non-distended, obese, Reports lower abdominal pain, upper abdominal pain, constipation, cramping, intolerance of fluids, intolerance of food, nausea. : No deficits noted. No signs and/or symptoms were reported regarding the genitourinary system. EENT: No deficits noted. No signs and/or symptoms were reported regarding the EENT system. Derm: Skin is intact, is healthy with good turgor, Skin is dry, Skin is normal, Skin temperature is warm post cholecystectomy surgical sites noted to abdomen. Musculoskeletal: No deficits noted. No signs and/or symptoms reported regarding the musculoskeletal system. Circulation, motion, and sensation intact. Range of motion: intact in all extremities. 04:48 Reassessment: Patient appears in no apparent distress at this time. No changes from lg3 previously documented assessment. Patient and/or family updated on plan of care and expected duration. Pain level reassessed. Patient is alert, oriented x 3, equal unlabored respirations, skin warm/dry/pink. Patient states feeling better. Patient states symptoms have improved. 05:49 Reassessment: Patient appears in no apparent distress at this time. No changes from lg3 previously documented assessment. Patient and/or family updated on plan of care and expected duration. Pain level reassessed. Patient is alert, oriented x 3, equal unlabored respirations, skin warm/dry/pink. 07:30 Reassessment: Patient appears in no apparent distress at this time. Patient and/or hb family updated on plan of care and expected duration. Pain level reassessed. Patient is alert, oriented x 3, equal unlabored respirations, skin warm/dry/pink. Vital Signs: 03:28 BP 171 / 111; Pulse 106; Resp 20; Temp 97; Pulse Ox 100% ; Weight 63.5 kg; Height 4 ft. vc1 11 in. ; Pain 10/10; 03:32 BP 198 / 102; Pulse 96; Resp 17 S; Pulse Ox 99% on R/A; lg3 03:55 BP 166 / 83; Pulse 91; Resp 15 S; Pulse Ox 98% on R/A; lg3 04:23 BP 158 / 83; Pulse 94; Resp 17 S; Pulse Ox 99% on R/A; ha1 05:49 BP 179 / 96; Pulse 84; Resp 16 S; Pulse Ox 100% on R/A; lg3 06:42 BP 174 / 95; Pulse 103; Resp 16 S; Pulse Ox 98% on R/A; lg3 07:45 BP 168 / 88; Pulse 89; Resp 15; Pulse Ox 99% on R/A; hb 03:28 Body Mass Index 28.28 (63.50 kg, 149.86 cm) vc1 03:28 Pain Scale: Adult vc1 ED Course: 03:12 Patient arrived in ED. jj6 03:20 Thompson Murphy PA is PHCP. cp 03:20 Thompson Castro MD is Attending Physician. cp 03:31 Triage completed. vc1 03:31 Catie Arevalo RN is Primary Nurse. lg3 03:32 Patient has correct armband on for positive identification. Placed in gown. Bed in low lg3 position. Call light in reach. Side rails up X 1. Client placed on continuous cardiac and pulse oximetry monitoring. NIBP monitoring applied. Door closed. Noise minimized. Warm blanket given. Family accompanied patient. 03:32 Inserted saline lock: 22 gauge in right forearm, using aseptic technique. Blood lg3 collected. Patient maintains SpO2 saturation greater than 95% on room air. 03:34 Arm band placed on left wrist. vc1 05:37 CT Abd/Pelvis - Without Contrast In Process Unspecified. EDMS 06:02 Clifton Dwyer is Hospitalizing Provider. cp 06:47 XRAY Chest (1 view) In Process Unspecified. EDMS 08:37 No provider procedures requiring assistance completed. Patient admitted, IV remains in mb9 place. Administered Medications: 03:35 Drug: HYDROmorphone IVP 1 mg IVP once Route: IVP; Site: right forearm; lg3 05:54 Follow up: Response: No adverse reaction; Marked relief of symptoms; Pain is decreased; lg3 RASS: Alert and Calm (0) 03:35 Drug: Ondansetron IVP 4 mg IVP once; over 2 minutes Route: IVP; Site: right forearm; lg3 05:54 Follow up: Response: No adverse reaction; Marked relief of symptoms; Nausea is decreasedlg3 03:38 Drug: NS 0.9% IV 1000 ml IV at 1 bolus Per protocol; 1000 mL bolus Route: IV; Rate: 1 ha1 bolus; Site: right wrist; 05:55 Follow up: IV Status: Completed infusion; IV Intake: 1000ml lg3 03:40 Drug: Promethazine IVP 25 mg IVP once; place in IV fluids Route: IVP; Site: right wrist;ha1 05:54 Follow up: Response: No adverse reaction; Marked relief of symptoms; Vomiting decreased lg3 03:43 Drug: Famotidine IVP 20 mg IVP once; dilute with 10 mL 0.9% NaCl; give over 2 minutes ha1 Route: IVP; Site: right wrist; 05:54 Follow up: Response: No adverse reaction lg3 06:00 Drug: hydrALAZINE IVP 10 mg IVP once Route: IVP; Site: right antecubital; lg3 06:43 Follow up: Response: No adverse reaction; No change in condition; Blood pressure is lg3 unchanged 08:13 Drug: Promethazine IVP 12.5 mg IVP once Route: IVP; Site: right forearm; hb Intake: 05:55 IV: 1000ml; Total: 1000ml. lg3 Outcome: 06:04 Decision to Hospitalize by Provider. cp 08:37 Admitted to Med/surg room 201, with chart, Report called to KARELY Kumar9 08:37 Condition: stable 08:43 Patient left the ED. mb9 Signatures: Dispatcher [employer] EDOR Thompson Murphy PA PA cp Baxter, Heather RN Catie Rivas RN RN lg3 Marleni Arriagaj6 Madalyn Keller RN RN 1 Alba Rocha RN RN ha1 Heather Mas RN KARELY mb9
--- NOTE | 2023-03-07 06:05 | EDPHYS ---
Physician Documentation [facility] Name: Elsy Bradford Age: 48 yrs Sex: Female : 1975 Arrival Date: 03/07/2023 Time: 03:11 Bed 13 Private MD: ED Physician Thompson Castro HPI: 03/07 03:29 This 48 yrs old Female presents to ER via Unassigned with complaints of POST cp SURGICAL PROBLEM-GALLBLADDER REMOVED ON Wednesday03/01/23, Nausea/Vomiting, Abdominal Pain. 03:29 The patient presents with abdominal pain that is diffuse. Onset: The symptoms/episode cp began/occurred yesterday, morning. Associated signs and symptoms: Pertinent positives: nausea and vomiting, anorexia, Pertinent negatives: constipation, diarrhea, fever, vomiting blood. The symptoms are described as constant. Severity of pain: in the emergency department the pain is unchanged despite home interventions. 03:29 Patient reports having cholecystectomy done by DR Rodriguez on 03-01-2023 w/o complication.cp Historical: - Allergies: 03:31 HYDROCODONE; vc1 - PMHx: 03:31 Diabetes - NIDDM; GERD; High Cholesterol; Hypertension; Thyroid problem; vc1 - PSHx: 03:31 Cholecystectomy (March 01, 2023); vc1 - Immunization history:: Adult Immunizations up to date. - Social history:: Smoking status: Patient denies any tobacco usage or history of. Patient uses alcohol, occasionally. ROS: 03:45 Constitutional: Positive for poor PO intake, Negative for body aches, chills, fever, cp 03:45 Cardiovascular: Negative for chest pain, edema, palpitations, cp 03:45 Respiratory: Negative for cough, shortness of breath, wheezing, 03:45 Abdomen/GI: Positive for abdominal pain, nausea and vomiting, Negative for hematemesis, black/tarry stool, rectal bleeding, Exam: 03:50 ECG was reviewed by the Attending Physician. cp 03:52 Constitutional: The patient appears alert, awake, non-diaphoretic, non-toxic, well cp developed, well nourished, uncomfortable, 03:52 Head/Face: Normocephalic, atraumatic. cp 03:52 Eyes: Periorbital structures: appear normal, Conjunctiva: normal, no exudate, no injection, Sclera: no appreciated abnormality, Lids and lashes: appear normal, bilaterally, 03:52 ENT: External ear(s): are unremarkable, Nose: is normal, Mouth: Lips: moist, Oral mucosa: pink and intact, moist, Posterior pharynx: Airway: no evidence of obstruction, patent, 03:52 Chest/axilla: Inspection: normal, Palpation: is normal, no crepitus, no tenderness, 03:52 Cardiovascular: Rate: normal, Rhythm: regular, 03:52 Respiratory: the patient does not display signs of respiratory distress, Respirations: normal, no use of accessory muscles, no retractions, labored breathing, is not present, Breath sounds: are clear throughout, no decreased breath sounds, no stridor, no wheezing, 03:52 Abdomen/GI: Inspection: abdomen appears normal, Bowel sounds: active, all quadrants, Palpation: soft, in all quadrants, severe abdominal tenderness, in all quadrants, rebound tenderness, is not appreciated, involuntary guarding, is not appreciated, 03:52 Neuro: Orientation: to person, place \T\ time. Mentation: is normal, Motor: moves all fours, strength is normal, Vital Signs: 03:28 BP 171 / 111; Pulse 106; Resp 20; Temp 97; Pulse Ox 100% ; Weight 63.5 kg; Height 4 ft. vc1 11 in. ; Pain 10/10; 03:32 BP 198 / 102; Pulse 96; Resp 17 S; Pulse Ox 99% on R/A; lg3 03:55 BP 166 / 83; Pulse 91; Resp 15 S; Pulse Ox 98% on R/A; lg3 04:23 BP 158 / 83; Pulse 94; Resp 17 S; Pulse Ox 99% on R/A; ha1 05:49 BP 179 / 96; Pulse 84; Resp 16 S; Pulse Ox 100% on R/A; lg3 06:42 BP 174 / 95; Pulse 103; Resp 16 S; Pulse Ox 98% on R/A; lg3 07:45 BP 168 / 88; Pulse 89; Resp 15; Pulse Ox 99% on R/A; hb 03:28 Body Mass Index 28.28 (63.50 kg, 149.86 cm) vc1 03:28 Pain Scale: Adult vc1 MDM: 03:24 Patient medically screened. cp 04:00 Differential diagnosis: bowel obstruction, pancreatitis, Peptic Ulcer Disease, Perf. cp Duodenal Ulcer, Perf. Gastric Ulcer, Peritonitis, Ureterolithiasis, urinary tract infection. 06:00 Data reviewed: vital signs, nurses notes, EKG, radiologic studies, CT scan, plain cp films, I have discussed the patient's presentation/case with the attending Emergency Department Physician; and as a result, I will admit patient. 06:00 I considered the following discharge prescriptions or medication management in the emergency department Medications were administered in the Emergency Department. See MAR. Independent interpretation of the following test(s) in the Emergency Department EKG: See my EKG interpretation above. Care significantly affected by the following chronic conditions: Diabetes. Response to treatment: the patient's symptoms have markedly improved after treatment. 06:05 Management of patient was discussed with the following: Hospitalist: DR Dwyer will admit after discussion. 03/07 03:28 Order name: Basic Metabolic Panel; Complete Time: 04:17 03/07 04:54 Interpretation: Normal except: GLUC 250; BUN 25; CRE 2.70; GFR 21. 03/07 03:28 Order name: CBC with Diff; Complete Time: 04:53 03/07 04:55 Interpretation: Normal except: WBC 13.40; RBC 3.56; HGB 11.3; HCT 32.9; PLT 598; MPV cp 7.4; BRIANDA% 79.8; MN% 3.2; NEUT A 10.7. 03/07 03:28 Order name: LFT's; Complete Time: 04:17 cp 03/07 03:28 Order name: Magnesium; Complete Time: 04:17 cp 03/07 03:28 Order name: PT-INR; Complete Time: 04:17 cp 03/07 03:28 Order name: Troponin HS; Complete Time: 04:17 cp 03/07 03:28 Order name: Lipase; Complete Time: 04:17 cp 03/07 07:47 Order name: T4 Free [facility] 03/07 07:47 Order name: Thyroid Stimulating Hormone [facility] 03/07 07:47 Order name: Basic Metabolic Panel [facility] 03/07 07:47 Order name: Basic Metabolic Panel [facility] 03/07 07:47 Order name: Basic Metabolic Panel [facility] 03/07 07:47 Order name: Basic Metabolic Panel [facility] 03/07 07:47 Order name: Basic Metabolic Panel [facility] 03/07 07:47 Order name: Basic Metabolic Panel [facility] 03/07 07:47 Order name: Basic Metabolic Panel [facility] 03/07 07:47 Order name: Basic Metabolic Panel EDMS 03/07 07:47 Order name: CBC with Automated Diff EDMS 03/07 07:47 Order name: CBC with Automated Diff EDMS 03/07 07:47 Order name: CBC with Automated Diff EDMS 03/07 07:47 Order name: CBC with Automated Diff EDMS 03/07 07:47 Order name: CBC with Automated Diff EDMS 03/07 07:47 Order name: CBC with Automated Diff EDMS 03/07 07:47 Order name: CBC with Automated Diff EDMS 03/07 07:47 Order name: CBC with Automated Diff EDMS 03/07 07:47 Order name: Lipid Profile EDMS 03/07 07:47 Order name: Lipid Profile EDMS 03/07 07:47 Order name: Magnesium EDMS 03/07 07:47 Order name: Magnesium EDMS 03/07 07:47 Order name: Magnesium EDMS 03/07 07:47 Order name: Magnesium EDMS 03/07 07:47 Order name: Magnesium EDMS 03/07 07:47 Order name: Magnesium EDMS 03/07 07:47 Order name: Magnesium EDMS 03/07 07:47 Order name: Magnesium EDMS 03/07 07:47 Order name: Phosphorus EDMS 03/07 07:47 Order name: Phosphorus EDMS 03/07 07:47 Order name: Phosphorus EDMS 03/07 07:47 Order name: Phosphorus EDMS 03/07 07:47 Order name: Phosphorus EDMS 03/07 07:47 Order name: Phosphorus EDMS 03/07 07:47 Order name: Phosphorus EDMS 03/07 07:47 Order name: Phosphorus EDMS 03/07 07:47 Order name: Troponin High Sensitivity EDMS 03/07 07:47 Order name: Troponin High Sensitivity EDMS 03/07 07:47 Order name: Troponin High Sensitivity EDMS 03/07 03:28 Order name: XRAY Chest (1 view); Complete Time: 08:03 cp 03/07 04:54 Order name: CT Abd/Pelvis - Without Contrast cp 03/07 03:28 Order name: EKG; Complete Time: 03:29 cp 03/07 03:28 Order name: Cardiac monitoring; Complete Time: 03:56 cp 03/07 03:28 Order name: EKG - Nurse/Tech; Complete Time: 03:56 cp 03/07 03:28 Order name: IV Saline Lock; Complete Time: 03:35 cp 03/07 03:28 Order name: Labs collected and sent; Complete Time: 03:35 cp 03/07 03:28 Order name: O2 Per Protocol; Complete Time: 03:35 cp 03/07 03:28 Order name: O2 Sat Monitoring; Complete Time: 03:35 cp EC:50 Rate is 93 beats/min. Rhythm is regular. MO interval is normal. QRS interval is normal. cp QT interval is normal. T waves are Inverted in leads III, aVR. Interpreted by me. Reviewed by me. Administered Medications: 03:35 Drug: HYDROmorphone IVP 1 mg IVP once Route: IVP; Site: right forearm; lg3 05:54 Follow up: Response: No adverse reaction; Marked relief of symptoms; Pain is decreased; lg3 RASS: Alert and Calm (0) 03:35 Drug: Ondansetron IVP 4 mg IVP once; over 2 minutes Route: IVP; Site: right forearm; lg3 05:54 Follow up: Response: No adverse reaction; Marked relief of symptoms; Nausea is decreasedlg3 03:38 Drug: NS 0.9% IV 1000 ml IV at 1 bolus Per protocol; 1000 mL bolus Route: IV; Rate: 1 ha1 bolus; Site: right wrist; 05:55 Follow up: IV Status: Completed infusion; IV Intake: 1000ml lg3 03:40 Drug: Promethazine IVP 25 mg IVP once; place in IV fluids Route: IVP; Site: right wrist;ha1 05:54 Follow up: Response: No adverse reaction; Marked relief of symptoms; Vomiting decreased lg3 03:43 Drug: Famotidine IVP 20 mg IVP once; dilute with 10 mL 0.9% NaCl; give over 2 minutes ha1 Route: IVP; Site: right wrist; 05:54 Follow up: Response: No adverse reaction lg3 06:00 Drug: hydrALAZINE IVP 10 mg IVP once Route: IVP; Site: right antecubital; lg3 06:43 Follow up: Response: No adverse reaction; No change in condition; Blood pressure is lg3 unchanged 08:13 Drug: Promethazine IVP 12.5 mg IVP once Route: IVP; Site: right forearm; hb Disposition Summary: 03/07/23 06:04 Hospitalization Ordered Notes: Hospitalization Status: Observation cp Provider: Clifton Dwyer cp Location: Telemetry/MedSurg (observation) cp Condition: Stable cp Problem: new cp Symptoms: have improved cp Bed/Room Type: Standard cp Room Assignment: 201(03/07/23 08:30) eb Diagnosis - Nausea with vomiting, unspecified cp - Abdominal pain, unspecified cp - Unspecified kidney failure cp Discharge Instructions: - Discharge Summary Sheet lg3 Forms: - Medication Reconciliation Form cp - Leadership Thank You Letter cp - SBAR form lg3 Signatures: Dispatcher [employer] EDMS Thompson Murphy PA PA cp Roberta Kam RN RN Gracie Nelson Lacie, RN RN lg3 Madalyn Keller RN RN vc1 Alba Rocha RN RN ha1 Tai Del Toro MD MD rt Corrections: (The following items were deleted from the chart) 08:30 06:04 cp eb 03/08 01:01 03/07 03:29 Patient reports having cholecystectomy done by DR Rodriguez on 02-27-2023 w/o cp complication. cp
--- NOTE | 2023-03-07 06:50 | P.HP ---
Certification for Inpatient Patient admitted to: Observation With expected LOS: >2 Midnights Patient will require the following post-hospital care: None Practitioner: I am a practitioner with admitting privileges, knowledge of patient current condition, hospital course, and medical plan of care. Services: Services provided to patient in accordance with Admission requirements found in Title 42 Section 412.3 of the Code of Federal Regulations Patient History Date of Service: 03/07/23 Reason for admission: intractable n/v History of Present Illness: Elsy Bradford is a 48-year-old female with past medical history of Diabetes - NIDDM; GERD; High Cholesterol; Hypertension; Thyroid problem who presents to the ED with complaints of intractable nausea, vomiting, abdominal pain. Symptom onset was yesterday. She reports not being able to keep any food or liquid down since yesterday. On evaluation, surgical incisions remain covered in bandaids, abdominal pain on palpation to the right upper and lower quadrant. She is vomitting and having dry heaving during the evaluation. White count is elevated at 13.4, serum glucose elevated at 250, AST/ALT and lipase are WNL, Alk phos 135. Initial vital BP 171 / 111; Pulse 106; Resp 20; Temp 97; Pulse Ox 100% Significant labs WBC 13.4, platelets 598, serum glucose 250, lipase 21, alk phos 135, AST/ALT within normal range, BUN/creatinine 2.7/25, GFR 21 Chest x-ray reports " No acute cardiopulmonary disease." CT abdomen/pelvis reports " no acute finding in the abdomen/pelvis" Elsy will be admitted to hospitalist service for further evaluation and treatment of intractable nausea/vomitting, Dr. Rodriguez and nephrology consulted Allergies No Known Allergies Allergy (Verified 03/02/23 11:29) Home Medications: Aspirin Tab [Cuco Aspirin*] 325 mg PO DAILY 04/10/22 Glipizide [Glucotrol Xl] 10 mg PO DAILY 04/10/22 Atorvastatin Calcium [Lipitor*] 10 mg PO BEDTIME 03/01/23 Duloxetine HCl 20 mg PO DAILY 03/01/23 Levothyroxine Sodium 1 tab PO DAILY 03/01/23 Olmesartan Medoxomil 5 mg PO DAILY 03/01/23 Sitagliptin Phosphate [Januvia] 50 mg PO DAILY 03/01/23 carvediloL [Carvedilol] 1 tab PO BID 03/01/23 Hydrocodone 10/APAP 325 [[place] 10/325] 1 tab PO Q6H PRN #20 tab 03/03/23 Ondansetron [Zofran] 4 mg PO Q6H PRN #20 tab 03/03/23 carvediloL [Coreg*] 12.5 mg PO BIDWM tab 03/03/23 - Past Medical/Surgical History Diabetic: Yes -: DM II -: HLD -: CKD III with Proteinuria (Dr. Kennedy/ Dr. 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 - Family History Sister -: Diabetes Mother -: Diabetes - Social History Alcohol use: No CD- Drugs: No Caffeine use: Yes Review of Systems Gastrointestinal: Nausea, Vomiting, Abdominal Pain Physical Examination - Physical Exam General: Alert, Oriented x3, Mild distress HEENT: Atraumatic, Normocephalic, PERRLA Neck: Supple, 2+ carotid pulse no bruit, JVD not distended Respiratory: Clear to auscultation bilaterally, Normal air movement Cardiovascular: No edema, Normal pulses, Regular rate/rhythm, Normal S1 S2 Capillary refill: <2 Seconds Gastrointestinal: Normal bowel sounds, Hypoactive, Tenderness Musculoskeletal: No clubbing, No swelling, No contractures Integumentary: No rashes, No breakdown, No significant lesion Neurological: Normal speech, Normal strength at 5/5 x4 extr, Normal tone - Studies Laboratory Data (last 24 hrs) 03/07/23 03/07/23 03/07/23 03:36 03:36 03:36 WBC 13.40 H Hgb 11.3 L Hct 32.9 L Plt Count 598 H PT 11.8 INR 1.07 Sodium 136 Potassium 4.3 BUN 25 H Creatinine 2.70 H Glucose 250 H Magnesium 1.9 Total Bilirubin 0.4 AST 18 ALT 32 Alkaline Phosphatase 135 H Lipase 21 Assessment and Plan - Plan assessment and plan Intractable nausea/vomiting Mild Leukocytosis Fluid volume deficit WBC 13.4, lipase 21 S/P cholecystectomy 03/01 CT abd/pelvis reports " no acute finding in the abdomen/pelvis" CXR reports" No acute cardiopulmonary disease." Hida scan ordered antiemetics IVF HX HTN Restart home medications hydralazine PRN SILKE vs CKD Nephrology consulted BUN/Creatinine 25/ 2.7, GFR 21 Diabetes-NIDDM accucheck with SSI Serum glucose 250 Hx GERD HX HLD HX hypothyroidism Restart home medications DVT ppx heparin Full code Discharge Plan: Home Plan to discharge in: 48 Hours - Advance Directives Does patient have a Living Will: No Does patient have a Durable POA for Healthcare: No Time Spent Managing Pts Care (In Minutes): 50
--- NOTE | 2023-03-07 07:01 | RAD REPORT ---
EXAM DESCRIPTION: RAD - Chest Single View - 03/07/2023 6:45 am CLINICAL HISTORY: nausea/vomiting COMPARISON: CHEST SINGLE VIEW dated 06/14/2014; Abdomen Pelvis Wo Contrast dated 03/07/2023 FINDINGS: Lines: None. Lungs: No evidence of edema or pneumonia. Pleural: No significant pleural effusions or pneumothorax. Cardiac: The heart size is within normal limits. Mediastinum: Within normal limits. Bones: No acute fractures. Other: None IMPRESSION: No acute cardiopulmonary disease.
[2023-03-07 08:29] VITALS: BMI 28.3
[2023-03-07 09:00] LABS: Thyroid Stimulating Hormone 0.681 uIU/mL (0.358-3.740)
[2023-03-07] MEDS: HYDROMORPHONE HCL 1 MG/ML INJ IV PRN ×3 (09:26→21:03)
[2023-03-07] MEDS: NA CHLORIDE 0.9% 1,000 ML IV SCH ×2 (09:27→16:19)
[2023-03-07] MEDS: HEPARIN 5000 UNIT/ML 1 ML VIAL SQ SCH ×2 (09:27→16:20)
[2023-03-07] MEDS: INSULIN REGULAR (HUMAN) 100 UNIT/ML SQ SCH ×4 (09:34→20:55)
[2023-03-07] MEDS: carvediloL 12.5 MG TAB PO SCH ×3 (09:45→16:20)
[2023-03-07] MEDS ORDERED: INSULIN REGULAR (HUMAN) 100 UNIT/ML SQ SCH (11:30)
[2023-03-07] MEDS: HYDRALAZINE HCL 20 MG/ML VIAL IV PRN ×2 (12:59→21:03)
[2023-03-07] MEDS: PROMETHAZINE INJ 25 MG/ML AMP IV PRN ×2 (12:59→19:27)
--- NOTE | 2023-03-07 15:24 | P.CNS ---
Date of Consult: 03/07/23 PC: I was asked to see this 48-year-old old female who is 1 week status post laparoscopic cholecystectomy with normal cholangiogram for intractable vomiting. HPC: Patient presented to the emergency room with severe nausea and vomiting. Unable to keep anything down. PSHx: Lap timbo as mentioned PMHx: Diabetic, urinary incontinence Social Hx: No known allergies Sys R: No cough, wheeze, shortness of breath. No chest pain or palpitations. Had felt quite well after her surgery and was doing good until she started vomiting. O/E: Awake alert vital signs are stable, not jaundiced HEENT: Negative Chest: Air entry equal bilaterally Abd: Soft nontender wounds are healing well [place]: Intact Data: CT scan does not show any fluid collections, liver enzymes normal Impression: Intractable vomiting Plan: This patient, is status post laparoscopic cholecystectomy with cholangiogram. She does have nausea and vomiting. I do not feel is related to her surgical procedure. I will follow with you.
[2023-03-08] MEDS: HEPARIN 5000 UNIT/ML 1 ML VIAL SQ SCH ×3 (01:00→17:37)
[2023-03-08] MEDS: PROMETHAZINE INJ 25 MG/ML AMP IV PRN ×3 (02:43→17:48)
[2023-03-08] MEDS: HYDROMORPHONE HCL 1 MG/ML INJ IV PRN ×3 (02:51→17:47)
[2023-03-08] MEDS: NA CHLORIDE 0.9% 1,000 ML IV SCH ×3 (04:13→17:37)
[2023-03-08 07:15] LABS: Absolute Lymphocytes (CBC) 2.3 K/uL (0.7-4.9); Hematocrit 27.3 % (36.0-45.0); Lymphocytes % 22.5 % (15.3-44.8); MCV 92.7 fL (80-100); MPV 7.1 fL (7.6-11.3); Platelets 454 thou/uL (152-406); RBC Red Blood Cell Count 2.94 M/uL (3.86-4.86)
[2023-03-08 07:30] LABS: Magnesium 1.6 mg/dL (1.6-2.4); Phosphorus 2.9 mg/dL (2.5-4.9); Potassium 3.7 mEq/L (3.5-5.1)
[2023-03-08] MEDS: INSULIN REGULAR (HUMAN) 100 UNIT/ML SQ SCH ×4 (07:30→21:44)
--- NOTE | 2023-03-08 07:53 | RAD REPORT ---
EXAM DESCRIPTION: NM - Hepatobiliary System Imagin - 03/08/2023 7:38 am CLINICAL HISTORY: ICD TECHNIQUE: The patient was administered 6.1 millicuries technetium Choletec and images of the abdome n obtained for 60 minutes. FINDINGS: Cholecystectomy Liver demonstrates prompt radiotracer uptake. The biliary tree is normal caliber Uptake is seen within small bowel No extravasation of radiotracer visualized IMPRESSION: No extravasation of radiotracer visualized
[2023-03-08] MEDS: HYDRALAZINE HCL 20 MG/ML VIAL IV PRN (08:47)
[2023-03-08] MEDS ORDERED: MAGNESIUM SULFATE 1 gm IVPB 1 GM/100 ML BAG IV ONE (09:20)
[2023-03-08] MEDS ORDERED: SODIUM CHLORIDE 0.9% 10ML INJ IV PRN (09:27)
[2023-03-08] MEDS: carvediloL 12.5 MG TAB PO SCH (09:45)
[2023-03-08] MEDS: PANTOPRAZOLE 40 MG INJ IVP SCH ×2 (09:49→21:44)
--- NOTE | 2023-03-08 11:03 | RAD REPORT ---
EXAM DESCRIPTION: CT - Abdomen Pelvis Wo Contrast - 03/07/2023 7:20 am CLINICAL HISTORY: The patient is 48 years old and is Female; ABD PAIN TECHNIQUE: Axial computed tomography images of the abdomen and pelvis without intravenous contrast. Sagittal and coronal reformatted images were created and reviewed. This CT exam was performed usi ng one or more of the following dose reduction techniques: automated exposure control, adjustment o f the mA and/or kV according to patient size, and/or use of iterative reconstruction technique. COMPARISON: CT abdomen and pelvis with contrast March 01, 2023. FINDINGS: Lung bases: Unremarkable. No mass. No consolidation. ABDOMEN: Liver: Unremarkable. Gallbladder and bile ducts: Interval cholecystectomy. Mild stranding in the gallbladder fossa. No ductal dilation. Pancreas: Unremarkable. No ductal dilation. Spleen: Unremarkable. No splenomegaly. Adrenals: Unremarkable. No mass. Kidneys and ureters: Mild bilateral perinephric stranding. No obstructing stones. No hydronephrosis. Stomach and bowel: There may be some mild mucosal thickening involving the right colon at the hep atic flexure. No obstruction. PELVIS: Appendix: Appendicolith. Appendix is otherwise normal. Bladder: Unremarkable. Reproductive: Unremarkable as visualized. ABDOMEN and PELVIS: Intraperitoneal space: Unremarkable. No free air. No significant fluid collection. Bones/joints: No acute fracture. No dislocation. Soft tissues: Unremarkable. Vasculature: Scattered atherosclerotic vascular calcifications. No abdominal aortic aneurysm. Lymph nodes: Unremarkable. No enlarged lymph nodes. IMPRESSION: No acute finding in the abdomen/pelvis. Electronically signed by: Reese Olivares MD 03/07/2023 06:00 AM TYPING POOL SUPERVISOR Due to temporary technical issues with the PACS/Fluency reporting system, reports are being signed by the in house radiologist without review as a courtesy to ensure prompt reporting. The interpreting r adiologist is fully responsible for the content of the report.
[2023-03-08] MEDS ORDERED: NA CHLORIDE 0.9% 1,000 ML ONE (12:51)
[2023-03-08] MEDS ORDERED: EPINEPHRINE 1 MG/ML VIAL ONE (13:12)
[2023-03-08] MEDS ORDERED: propofoL 200 MG/20 ML VIAL IV ONE (13:47)
[2023-03-08] MEDS ORDERED: LIDOCAINE 1% MPF 5 ML VIAL ONE (13:47)
--- NOTE | 2023-03-08 14:02 | P.PN ---
Date of Service: 03/08/23 Noam Chin is sleeping, when she wakes up she is extremely nauseous and vomiting She has not received relief since admission, Phenergan is helping Dr. Downey scheduled EGD today Afebrile, intermittent tachycardia at bedside, reports these episodes has been occurring for 1 year, they usually calm down and she is back to normal except for this episode. ROS 10 point ROS as noted above, otherwise negative Physical Exam General: AAO x3, Mild distress, sleeping but arouses HEENT: Atraumatic, Normocephalic, PERRLA Neck: Supple, 2+ carotid pulse no bruit, JVD not distended Respiratory: Clear to auscultation bilaterally, Normal air movement, symmetrical chest wall movement Cardiovascular: No edema, Normal pulses, Regular rate/rhythm intermittent tachycardia, Normal S1 S2 Capillary refill: <2 Seconds Gastrointestinal: Normal bowel sounds, Hypoactive, Tenderness, nondistended Musculoskeletal: No clubbing, No swelling, No contractures Integumentary: No rashes, No breakdown, No significant lesion Neurological: Normal speech, Normal strength at 5/5 x4 extr, Normal tone Vitals Reviewed Problem list Intractable nausea/vomiting 2/2 gastroparesis vs gastritis Mild Leukocytosis Fluid volume deficit SILKE vs CKD Diabetes-NIDDM Assessment and Plan Intractable nausea/vomiting 2/2 gastroparesis vs gastritis Mild Leukocytosis-resolved Fluid volume deficit initial WBC 13.4, lipase 21 WBC 10 Triglycerides 311, cholesterol 161, LDL 65, HDL 34 S/P cholecystectomy 03/01 CT abd/pelvis reports " no acute finding in the abdomen/pelvis" CXR reports" No acute cardiopulmonary disease." Hida scan unremarkable EGD scheduled for today Remains NPO for scope and continued N/V continue antiemetics continue IVF Dr Red consulted Dr Guillaume requested the HIDA scan, does not appear to be stemming form the Cholecystectomy HX HTN Restart home medications when tolerating PO hydralazine PRN coreg 12.5 BID increased to 25 mg BID starting at 1800 SBP >160 right now SILKE vs CKD Nephrology consulted BUN/Creatinine 27/1.58, GFR 22 Diabetes-NIDDM accucheck with SSI Serum glucose 162-elevated while NPO NPO- monitor closely Hx GERD HX HLD HX hypothyroidism Restarted synthroid 03/08, monitor if tolerating PO meds DVT ppx heparin Full code <Meagan Arias - Last Filed: 03/08/23 14:02> Patient seen and examined, plan of care discussed with Ms. Arias Intractable nausea and vomiting. Status post recent lap cholecystectomy. HIDA scan unremarkable. No extravasation. GI Dr. Downey input appreciated. EGD demonstrated gastritis with edematous gastric fold. Nausea and vomiting likely secondary to gastritis. IV protonix and sucralfate Supportive measures with IV fluid SILKE is slowly improving. Monitor renal function. <virginia reilly - Last Filed: 03/08/23 17:21>
[2023-03-08] MEDS: LEVOTHYROXINE SOD 0.075 MG TAB PO SCH (16:24)
--- NOTE | 2023-03-08 17:11 | P.PN ---
Nephrology (S) Pt established through recent Nephrology consultation, pls see consult note from 03/[address] Kennedy, pt re-admitted with N/V and shows persistent renal impairment. She denies any sig abd pain currently. She is on IVF (O) Vitals, medications, blood work and imaging reviewed in the chart General: NAD HEENT: Atraumatic, sclera anicteric, not on O2 Neck: Supple Respiratory: Normal air movement, non tachypnec,no rales Cardiovascular: No edema, Regular rate/rhythm Gastrointestinal: Soft, ND, NT Musculoskeletal: No clubbing, No contractures Integumentary: No rashes Neurological: Normal speech, awake, alert Imagings Data: EXAM DESCRIPTION: US - Renal Ultrasound-Complete - 03/01/2023 2:23 pm CLINICAL HISTORY: abdominal pain COMPARISON: Abdomen Pelvis Wo Contrast dated 03/01/2023 TECHNIQUE: Sonographic grayscale and color flow images of the kidneys and bladder were obtained. FINDINGS: Both kidneys are normal in size, shape, and echotexture. The right kidney measures 9.2 cm in length. Incidentally noted upper to midpole 1.2 cm anechoic cyst. No hydronephrosis, focal mass, or echogenic calculi. The left kidney measures 9.4 cm in length. Mildly prominent left renal pelvis, may reflect a pelviectasis or early hydronephrosis. No focal mass, or echogenic calculi. Trace left perinephric fluid. The urinary bladder is without gross abnormality seen. . Bilateral ureteral jets are demonstrated. IMPRESSION: Mildly prominent left renal pelvis, may relate to pelviectasis or early hydronephrosis. Incidentally noted anechoic right upper to mid pole renal cyst, benign in appearance. . Conclusions/Impression: Stage II SILKE earlier this mo possible in the setting of initial insults such as pre-renal state, NSAIDs use/other leading to some intrinsic injury ATN as Cr levels remain elevated and plateaued CKD III unspecified suspected underlying 2nd to chronic HTN -Cont gentle IVF hydration, trend labs. CT imaging did not show obstructive uropathy. Repeat UA. Chronic HTN, labile pressures -Unclear if accelerated HTN 2nd to sympathetic response with pain or other. Cont Coreg, will add CCB if BP trends back up Abnormal findings in urine, unspecified. -Repeat UA, check spot urine N/V, unspecified -W/u per primary/gen surgery Clifford Drake MD, FASN
[2023-03-08] MEDS: SUCRALFATE 1GM/10ML UCUP PO SCH ×2 (17:36→21:44)
[2023-03-08] MEDS: carvediloL 25 MG TAB PO SCH (17:37)
[2023-03-09] MEDS: HEPARIN 5000 UNIT/ML 1 ML VIAL SQ SCH ×3 (01:25→17:00)
[2023-03-09] MEDS: PROMETHAZINE INJ 25 MG/ML AMP IV PRN ×3 (01:25→21:54)
[2023-03-09] MEDS: NA CHLORIDE 0.9% 1,000 ML IV SCH ×3 (01:32→19:54)
[2023-03-09] MEDS: HYDROMORPHONE HCL 1 MG/ML INJ IV PRN ×4 (01:32→21:54)
[2023-03-09] MEDS: carvediloL 25 MG TAB PO SCH ×2 (05:25→19:14)
[2023-03-09] MEDS: LEVOTHYROXINE SOD 0.075 MG TAB PO SCH (05:26)
[2023-03-09 06:20] LABS: Absolute Lymphocytes (CBC) 2.1 K/uL (0.7-4.9); Hematocrit 26.1 % (36.0-45.0); Lymphocytes % 28.3 % (15.3-44.8); MCV 91.5 fL (80-100); MPV 6.9 fL (7.6-11.3); Platelets 412 thou/uL (152-406); RBC Red Blood Cell Count 2.85 M/uL (3.86-4.86)
[2023-03-09 06:30] LABS: Magnesium 1.9 mg/dL (1.6-2.4); Phosphorus 2.9 mg/dL (2.5-4.9); Potassium 3.5 mEq/L (3.5-5.1)
[2023-03-09 06:49] LABS: Specific Gravity 1.015 (1.005-1.030); Urine Bacteria <20 /HPF (<20); Urine Bilirubin NEGATIVE (Negative); Urine Blood Negative (Negative); Urine Clarity Turbid (Clear); Urine Color Light-Yellow (Yellow); Urine Glucose 3+ (Negative); Urine Mucus Slight /HPF (None Seen); Urine Protein 3+ (Negative); Urine RBC <5 /HPF (None Seen); Urine Urobilinogen Normal (Normal); Urine pH 7.5 (5.0-7.0)
[2023-03-09 06:55] LABS: UR PROTEIN 554.8 mg/dL (<11.9); Urine Protein/Creatinine Ratio 5.66 ratio (<0.15)
[2023-03-09] MEDS: INSULIN REGULAR (HUMAN) 100 UNIT/ML SQ SCH ×4 (07:30→21:00)
[2023-03-09] MEDS: SUCRALFATE 1GM/10ML UCUP PO SCH ×4 (08:04→19:54)
[2023-03-09] MEDS: PANTOPRAZOLE 40 MG INJ IVP SCH ×2 (08:37→19:54)
[2023-03-09] MEDS ORDERED: POTASSIUM CL SA 10 MEQ TAB PO ONE (09:00)
[2023-03-09] MEDS ORDERED: MAGNESIUM SULFATE 1 gm IVPB 1 GM/100 ML BAG IV ONE (09:00)
[2023-03-09] MEDS ORDERED: LEVOTHYROXINE SOD 0.075 MG TAB PO SCH (09:00)
--- NOTE | 2023-03-09 10:49 | P.PN ---
Date of Service: 03/09/23 Subjective Still reports nausea/vomiting Mild epigastric pain Tolerating clear liquids ROS 10 point ROS as noted above, otherwise negative Physical Exam General: AAO x3, no distress HEENT: Atraumatic, Normocephalic, PERRLA Neck: Supple, 2+ carotid pulse no bruit, JVD not distended Respiratory: Clear to auscultation bilaterally, Normal air movement, symmetrical chest wall movement Cardiovascular: No edema, Normal pulses, Regular rate/rhythm intermittent tachycardia, Normal S1 S2 Gastrointestinal: Normal bowel sounds, Hypoactive, mild epigastric tenderness Musculoskeletal: No clubbing, No swelling, No contractures Neurological: Normal speech, Normal strength at 5/5 x4 extr, Normal tone Vitals Reviewed Problem list Intractable nausea/vomiting 2/2 gastroparesis vs gastritis Mild Leukocytosis Fluid volume deficit SILKE vs CKD Diabetes-NIDDM Plan Intractable nausea/vomiting 2/2 gastroparesis vs gastritis Mild Leukocytosis-resolved Fluid volume deficit S/P cholecystectomy 03/01 CT abd/pelvis reports " no acute finding in the abdomen/pelvis" Hida scan unremarkable EGD with poor visualization yesterday but did note gastritis, small hiatal hernia-repeat EGD today continue antiemetics continue IVF HX HTN Restart home medications when tolerating PO hydralazine PRN coreg 12.5 BID increased to 25 mg BID starting at 1800 SILKE vs CKD Nephrology consulted Continue IV fluids Diabetes-NIDDM accucheck with SSI Serum glucose 162-elevated while NPO NPO- monitor closely Hx GERD HX HLD HX hypothyroidism Restarted synthroid 03/08, monitor if tolerating PO meds DVT ppx heparin Full code
[2023-03-09] MEDS: AMLODIPINE 5 MG TAB PO SCH (11:00)
--- NOTE | 2023-03-09 11:19 | P.PN ---
Nephrology (S) Pt NPO this AM, reports still having some recurrent nausea. Remains on IVF. Renal function tests discussed (O) Vitals, medications, blood work and imaging reviewed in the chart General: NAD HEENT: Atraumatic, sclera anicteric, not on O2 Neck: Supple Respiratory: Normal air movement, non tachypnec,no rales Cardiovascular: No edema, Regular rate/rhythm Gastrointestinal: Soft, ND, NT Musculoskeletal: No clubbing, No contractures Integumentary: No rashes Neurological: Normal speech, awake, alert Imagings Data: EXAM DESCRIPTION: US - Renal Ultrasound-Complete - 03/01/2023 2:23 pm CLINICAL HISTORY: abdominal pain COMPARISON: Abdomen Pelvis Wo Contrast dated 03/01/2023 TECHNIQUE: Sonographic grayscale and color flow images of the kidneys and bladder were obtained. FINDINGS: Both kidneys are normal in size, shape, and echotexture. The right kidney measures 9.2 cm in length. Incidentally noted upper to midpole 1.2 cm anechoic cyst. No hydronephrosis, focal mass, or echogenic calculi. The left kidney measures 9.4 cm in length. Mildly prominent left renal pelvis, may reflect a pelviectasis or early hydronephrosis. No focal mass, or echogenic calculi. Trace left perinephric fluid. The urinary bladder is without gross abnormality seen. . Bilateral ureteral jets are demonstrated. IMPRESSION: Mildly prominent left renal pelvis, may relate to pelviectasis or early hydronephrosis. Incidentally noted anechoic right upper to mid pole renal cyst, benign in appea otto. . Conclusions/Impression: Stage II SILKE earlier this mo possible in the setting of initial insults such as pre-renal state, NSAIDs use/other leading to some intrinsic injury ATN as Cr levels remain elevated and plateaued CKD III unspecified suspected underlying 2nd to chronic HTN -Cont gentle IVF hydration, rate lowered, trend labs, Cr level has peaked. CT imaging did not show obstructive uropathy. Repeat UA. Chronic HTN, labile pressures -Unclear if accelerated HTN 2nd to sympathetic response with pain or other. Cont Coreg, will add CCB although NPO currently Abnormal findings in urine, unspecified. -Repeat UA does not show pyuria or hematuria but pt on spot urine does have notable proteinuria which will need to be repeated in a few weeks and if persi sts in the nephrotic range, will warrant additional w/u N/V, unspecified -W/u per primary/gen surgery Clifford Drake MD, FASN
[2023-03-10] MEDS: HEPARIN 5000 UNIT/ML 1 ML VIAL SQ SCH ×3 (00:31→16:46)
[2023-03-10] MEDS: NA CHLORIDE 0.9% 1,000 ML IV SCH ×2 (03:57→12:58)
[2023-03-10] MEDS: PROMETHAZINE INJ 25 MG/ML AMP IV PRN ×3 (05:22→21:04)
[2023-03-10] MEDS: HYDROMORPHONE HCL 1 MG/ML INJ IV PRN ×3 (05:30→20:20)
[2023-03-10] MEDS: LEVOTHYROXINE SOD 0.075 MG TAB PO SCH (05:55)
[2023-03-10] MEDS: carvediloL 25 MG TAB PO SCH ×2 (05:55→18:43)
[2023-03-10 06:39] LABS: Absolute Lymphocytes (CBC) 1.5 K/uL (0.7-4.9); Hematocrit 25.6 % (36.0-45.0); Lymphocytes % 20.8 % (15.3-44.8); MCV 91.5 fL (80-100); Platelets 390 thou/uL (152-406)
[2023-03-10 06:50] LABS: Phosphorus 2.6 mg/dL (2.5-4.9); Potassium 3.8 mEq/L (3.5-5.1)
[2023-03-10] MEDS: SUCRALFATE 1GM/10ML UCUP PO SCH ×4 (07:30→20:20)
[2023-03-10] MEDS: INSULIN REGULAR (HUMAN) 100 UNIT/ML SQ SCH ×4 (07:30→21:00)
[2023-03-10] MEDS: PANTOPRAZOLE 40 MG INJ IVP SCH ×2 (09:00→20:19)
[2023-03-10] MEDS: AMLODIPINE 5 MG TAB PO SCH (09:00)
[2023-03-10] MEDS ORDERED: propofoL 200 MG/20 ML VIAL IV ONE (09:37)
[2023-03-10] MEDS ORDERED: LIDOCAINE 1% MPF 5 ML VIAL ONE (09:37)
[2023-03-10 10:23] VITALS: O2SAT 100
--- NOTE | 2023-03-10 12:16 | P.PN ---
Nephrology (S) No active N/V, s/p repeat EGD, remains on gentle IVF, renal function stable (O) Vitals, medications, blood work and imaging reviewed in the chart General: NAD HEENT: Atraumatic, sclera anicteric, not on O2 Neck: Supple Respiratory: Normal air movement, non tachypnec,no rales Cardiovascular: No edema, Regular rate/rhythm Gastrointestinal: Soft, ND, NT Musculoskeletal: No clubbing, No contractures Integumentary: No rashes Neurological: Normal speech, awake, alert Imagings Data: EXAM DESCRIPTION: US - Renal Ultrasound-Complete - 03/01/2023 2:23 pm CLINICAL HISTORY: abdominal pain COMPARISON: Abdomen Pelvis Wo Contrast dated 03/01/2023 TECHNIQUE: Sonographic grayscale and color flow images of the kidneys and blad clementina were obtained. FINDINGS: Both kidneys are normal in size, shape, and echotexture. The right kidney measures 9.2 cm in length. Incidentally noted upper to midpole 1.2 cm anechoic cyst. No hydronephrosis, focal mass, or echogenic calculi. The left kidney measures 9.4 cm in length. Mildly prominent left renal pelvis, may reflect a pelviectasis or early hydronephrosis. No focal mass, or echogenic calculi. Trace left perinephric fluid. The urinary bladder is without gross abnormality seen. . Bilateral ureteral jets are demonstrated. IMPRESSION: Mildly prominent left renal pelvis, may relate to pelviectasis or early hydronephrosis. Incidentally noted anechoic right upper to mid pole renal cyst, benign in appearance. . Conclusions/Impression: Stage II SILKE earlier this mo possible in the setting of initial insults such as pre-renal state, NSAIDs use/other leading to some intrinsic injury ATN as Cr levels remain elevated and plateaued CKD III unspecified suspected underlying 2nd to chronic HTN -Cont gentle IVF hydration, rate further lowered, trend labs, Cr level had peaked. CT imaging did not show obstructive uropathy. -Will need OP f/u Chronic HTN, labile pressures -Unclear if accelerated HTN 2nd to sympathetic response with pain or even secondary to renal causes. Cont Coreg, did add CCB. Hold off on any rapid dose titration and will have her monitor BP closely as OP Abnormal findings in urine, unspecified. -Repeat UA does not show pyuria or hematuria but pt on spot urine does have notable proteinuria which will need to be repeated in a few weeks and if persists in the nephrotic range, will warrant additional w/u N/V, unspecified -W/u per primary/gen surgery Clifford Drake MD, OPALN
--- NOTE | 2023-03-10 15:37 | P.PN ---
Date of Service: 03/10/23 Subjective Still reports nausea/vomiting Mild epigastric pain ROS 10 point ROS as noted above, otherwise negative Physical Exam General: AAO x3, no distress HEENT: Atraumatic, Normocephalic, PERRLA Neck: Supple, 2+ carotid pulse no bruit, JVD not distended Respiratory: Clear to auscultation bilaterally, Normal air movement, symmetrical chest wall movement Cardiovascular: No edema, Normal pulses, Regular rate/rhythm intermittent tachycardia, Normal S1 S2 Gastrointestinal: Normal bowel sounds, Hypoactive, mild epigastric tenderness Musculoskeletal: No clubbing, No swelling, No contractures Neurological: Normal speech, Normal strength at 5/5 x4 extr, Normal tone Vitals Reviewed Problem list Intractable nausea secondary to gastritis Mild Leukocytosis Fluid volume deficit SILKE on CKD 3 Diabetes-NIDDM Plan Intractable nausea secondary to gastritis Mild Leukocytosis-resolved Fluid volume deficit S/P cholecystectomy 03/01 CT abd/pelvis reports " no acute finding in the abdomen/pelvis" Hida scan unremarkable EGD with moderate gastritis, stomach bile present GI has ordered gastric emptying study Continue acid suppression therapy with twice daily PPI and Carafate Clear liquid diet-slowly improving HX HTN Restart home medications when tolerating PO hydralazine PRN ISLKE on CKD 3 Nephrology consulted Continue IV fluids Diabetes-NIDDM accucheck with SSI Hx GERD HX HLD HX hypothyroidism Restarted synthroid 03/08, monitor if tolerating PO meds DVT ppx heparin Full code
[2023-03-11] MEDS: HEPARIN 5000 UNIT/ML 1 ML VIAL SQ SCH ×3 (01:15→17:41)
[2023-03-11] MEDS: PROMETHAZINE INJ 25 MG/ML AMP IV PRN ×5 (01:15→21:31)
[2023-03-11] MEDS: HYDROMORPHONE HCL 1 MG/ML INJ IV PRN ×4 (01:16→21:32)
[2023-03-11] MEDS: carvediloL 25 MG TAB PO SCH ×2 (05:54→17:40)
[2023-03-11] MEDS: LEVOTHYROXINE SOD 0.075 MG TAB PO SCH (05:54)
[2023-03-11] MEDS: SUCRALFATE 1GM/10ML UCUP PO SCH ×4 (07:30→21:31)
[2023-03-11] MEDS: INSULIN REGULAR (HUMAN) 100 UNIT/ML SQ SCH ×4 (07:30→21:31)
--- NOTE | 2023-03-11 08:13 | RAD REPORT ---
EXAM DESCRIPTION: NM - Gastric Emptying Study - 03/11/2023 8:01 am CLINICAL HISTORY: abd pain, N/V, suspicion of gastroparesis COMPARISON: Abdomen Pelvis Wo Contrast dated 03/07/2023 TECHNIQUE: The patient was administered approximately 1 mCi Tc 99m sulfur colloid in solid egg meal. Imaging of the left upper quadrant was performed with time/activity curve generated. FINDINGS: Cine-loop images show normal progression of the radiopharmaceutical from the stomach into the small bowel. Time to one-half activity is 171 minutes, elevated. Two hour retention is 63%. No ot her significant findings. IMPRESSION: Mild delayed gastric emptying.
[2023-03-11] MEDS: NA CHLORIDE 0.9% 1,000 ML IV SCH (08:25)
--- NOTE | 2023-03-11 10:04 | P.PN ---
Date of Service: 03/11/23 Subjective Still reports nausea/vomiting Mild epigastric pain ROS 10 point ROS as noted above, otherwise negative Physical Exam General: AAO x3, no distress HEENT: Atraumatic, Normocephalic, PERRLA Neck: Supple, 2+ carotid pulse no bruit, JVD not distended Respiratory: Clear to auscultation bilaterally, Normal air movement, symmetrical chest wall movement Cardiovascular: No edema, Normal pulses, Regular rate/rhythm intermittent tachycardia, Normal S1 S2 Gastrointestinal: Normal bowel sounds, Hypoactive, mild epigastric tenderness Musculoskeletal: No clubbing, No swelling, No contractures Neurological: Normal speech, Normal strength at 5/5 x4 extr, Normal tone Vitals Reviewed Problem list Intractable nausea secondary to gastritis Mild Leukocytosis Fluid volume deficit SILKE on CKD 3 Diabetes-NIDDM Plan Intractable nausea secondary to gastritis Mild Leukocytosis-resolved Fluid volume deficit S/P cholecystectomy 03/01 CT abd/pelvis reports " no acute finding in the abdomen/pelvis" Hida scan unremarkable EGD with moderate gastritis, stomach bile present Gastric emptying study with mild delayed gastric emptying Continue acid suppression therapy with twice daily PPI and Carafate Clear liquid diet-slowly improving Reports she has been having daily symptoms of reflux/vomiting for the last 1 to 2 years but usually vomits once in the mornings Has had persistent nausea/vomiting during this episode HX HTN Resume home medications SILKE on CKD 3 Nephrology consulted Continue IV fluids-reduced to 50ml an hour Diabetes-NIDDM accucheck with SSI Hx GERD HX HLD HX hypothyroidism Restarted synthroid 03/08, monitor if tolerating PO meds DVT ppx heparin Full code
--- NOTE | 2023-03-11 10:51 | P.PN ---
Date of Service: 03/11/23 Vital Signs Temp Pulse Resp BP Pulse Ox 97.1 F 75 18 134/85 97 03/11/23 04:00 03/11/23 04:00 03/11/23 04:00 03/11/23 04:00 03/11/23 04:00 Medications Amlodipine Besylate (Amlodipine 5 Mg Tab) 5 mg PO DAILY FORMERLY [facility], [facility] Last Admin: 03/10/23 09:00 Dose: Not Given Carvedilol (Carvedilol 25 Mg Tab) 25 mg PO BID 6AM 6PM FORMERLY [facility], [facility]1983 Last Admin: 03/11/23 05:54 Dose: Not Given Heparin Sodium (Porcine) (Heparin 5000 Unit/Ml 1 Ml Vial) 5,000 unit SQ Q8HR FOR[facility], [facility]1983 Last Admin: 03/11/23 09:00 Dose: Not Given Hydralazine HCl (Hydralazine Hcl 20 Mg/Ml Vial) 10 mg IV Q6HP PRN PRN Reason: FOR SBP>160 OR DBP>100 MMHG Last Admin: 03/08/23 08:47 Dose: 10 mg Hydromorphone HCl (Hydromorphone Hcl 1 Mg/Ml Inj) 1 mg IV Q6H PRN PRN Reason: Pain scale 8-10 (Severe) Last Admin: 03/11/23 10:03 Dose: 1 mg Sodium Chloride (Ns 1000 Ml Ivbag) 1,000 mls @ 50 mls/hr IV .Q20H FOR[facility], [facility] Last Admin: 03/10/23 12:58 Dose: 1,000 mls Insulin Human Regular (Insulin Regular (Human) 100 Unit/Ml) 0 unit SQ ACHS FOR[facility], [facility]; Protocol Last Admin: 03/11/23 07:30 Dose: Not Given Levothyroxine Sodium (Levothyroxine Sod 0.075 Mg Tab) 0.075 mg PO DAILYAC FORMER[facility], [facility] Last Admin: 03/11/23 05:54 Dose: Not Given Pantoprazole Sodium (Pantoprazole 40 Mg Inj) 40 mg IVP Q12HR [facility], [facility]; Protocol Last Admin: 03/10/23 20:19 Dose: 40 mg Promethazine HCl (Promethazine Inj 25 Mg/Ml Amp) 12.5 mg IV Q4H PRN PRN Reason: NAUSEA / VOMITING Last Admin: 03/11/23 10:03 Dose: 12.5 mg Sodium Chloride (Sodium Chloride 0.9% 10ml Inj) 10 ml IV UD PRN PRN Reason: Diluant Sucralfate (Sucralfate 1gm/10ml Ucup) 1 gm PO ACHS JASSI Last Admin: 03/11/23 07:30 Dose: Not Given Assessment/ Plan: Nephrology Progress Note No Dyspnea No Chest Pain Able to keep her breakfast down this morning +Diarrhea No Acute Events Overnight Vital Signs, Medications, Blood Work, and Imaging reviewed in the chart NAD. NCAT. MMM. Neck Supple. Normal Respiratory Effort. RRR. Abd ND, Tender. No C/C. LE Edema none. No Rash. AAO. Normal Speech. 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
--- NOTE | 2023-03-11 11:06 | P.PN ---
Date of Service: 03/11/23 Vital Signs Temp Pulse Resp BP Pulse Ox 97.1 F 75 18 134/85 97 03/11/23 04:00 03/11/23 04:00 03/11/23 04:00 03/11/23 04:00 03/11/23 04:00 Medications Amlodipine Besylate (Amlodipine 5 Mg Tab) 5 mg PO DAILY [facility] Last Admin: 03/10/23 09:00 Dose: Not Given Carvedilol (Carvedilol 25 Mg Tab) 25 mg PO BID 6AM 6PM [facility] Last Admin: 03/11/23 05:54 Dose: Not Given Heparin Sodium (Porcine) (Heparin 5000 Unit/Ml 1 Ml Vial) 5,000 unit SQ Q8HR [facility] Last Admin: 03/11/23 09:00 Dose: Not Given Hydralazine HCl (Hydralazine Hcl 20 Mg/Ml Vial) 10 mg IV Q6HP PRN PRN Reason: FOR SBP>160 OR DBP>100 MMHG Last Admin: 03/08/23 08:47 Dose: 10 mg Hydromorphone HCl (Hydromorphone Hcl 1 Mg/Ml Inj) 1 mg IV Q6H PRN PRN Reason: Pain scale 8-10 (Severe) Last Admin: 03/11/23 10:03 Dose: 1 mg Sodium Chloride (Ns 1000 Ml Ivbag) 1,000 mls @ 50 mls/hr IV .Q20H [facility] Last Admin: 03/10/23 12:58 Dose: 1,000 mls Insulin Human Regular (Insulin Regular (Human) 100 Unit/Ml) 0 unit SQ ACHS [facility]; Protocol Last Admin: 03/11/23 07:30 Dose: Not Given Levothyroxine Sodium (Levothyroxine Sod 0.075 Mg Tab) 0.075 mg PO DAILYAC [facility] Last Admin: 03/11/23 05:54 Dose: Not Given Pantoprazole Sodium (Pantoprazole 40 Mg Inj) 40 mg IVP Q12HR [facility]; Protocol Last Admin: 03/10/23 20:19 Dose: 40 mg Promethazine HCl (Promethazine Inj 25 Mg/Ml Amp) 12.5 mg IV Q4H PRN PRN Reason: NAUSEA / VOMITING Last Admin: 03/11/23 10:03 Dose: 12.5 mg Sodium Chloride (Sodium Chloride 0.9% 10ml Inj) 10 ml IV UD PRN PRN Reason: Diluant Sucralfate (Sucralfate 1gm/10ml Ucup) 1 gm PO ACHS JASSI Last Admin: 03/11/23 07:30 Dose: Not Given Assessment/ Plan: Nephrology Progress Note No Dyspnea No Chest Pain Able to keep her breakfast down this morning +Diarrhea No Acute Events Overnight Vital Signs, Medications, Blood Work, and Imaging reviewed in the chart NAD. NCAT. MMM. Neck Supple. Normal Respiratory Effort. RRR. Abd ND, Tender. No C/C. LE Edema none. No Rash. AAO. Normal Speech. 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
[2023-03-11] MEDS ORDERED: DRISDOL (VITAMIN D=ERGOCALCIFEROL) 50000 UNIT CAP PO SCH (12:00)
[2023-03-11 12:58] LABS: Absolute Lymphocytes (CBC) 1.9 K/uL (0.7-4.9); Hematocrit 26.5 % (36.0-45.0); Lymphocytes % 22.6 % (15.3-44.8); MCV 90.6 fL (80-100); Platelets 408 thou/uL (152-406); RBC Red Blood Cell Count 2.92 M/uL (3.86-4.86)
[2023-03-11 13:15] LABS: Magnesium 1.8 mg/dL (1.6-2.4); Phosphorus 2.9 mg/dL (2.5-4.9); Potassium 3.7 mEq/L (3.5-5.1)
[2023-03-11] MEDS: PANTOPRAZOLE 40 MG INJ IVP SCH ×2 (13:45→21:30)
--- NOTE | 2023-03-11 13:45 | EKG ---
Test Date: 2023-03-07 Test Time: 03:44:20 [place] Cutter: [place] MEASUREMENT RESULTS: Intervals: Rate: 93 SC: 140 QRSD: 80 QT: 380 QTc: 472 Rush: P: 41 SC: 140 QRS: -3 T: 22 INTERPRETIVE STATEMENTS: Normal sinus rhythm Inferior infarct, age undetermined Abnormal ECG Compared to ECG 11/03/1998 20:28:00 No significant changes Electronically Signed On 03-11-23 13:27:38 [employer] BEH[employer]IORIST by Iban Paredes
[2023-03-11] MEDS: AMLODIPINE 5 MG TAB PO SCH (13:46)
[2023-03-12] MEDS: HEPARIN 5000 UNIT/ML 1 ML VIAL SQ SCH ×3 (00:37→17:07)
[2023-03-12] MEDS: PROMETHAZINE INJ 25 MG/ML AMP IV PRN (04:04)
[2023-03-12] MEDS: HYDROMORPHONE HCL 1 MG/ML INJ IV PRN ×3 (04:04→20:36)
[2023-03-12] MEDS: NA CHLORIDE 0.9% 1,000 ML IV SCH (04:05)
[2023-03-12 04:22] LABS: Absolute Lymphocytes (CBC) 3.1 K/uL (0.7-4.9); Lymphocytes % 33.3 % (15.3-44.8); Platelets 436 thou/uL (152-406); RBC Red Blood Cell Count 2.96 M/uL (3.86-4.86)
[2023-03-12 04:38] LABS: Magnesium 1.8 mg/dL (1.6-2.4); Phosphorus 2.6 mg/dL (2.5-4.9); Potassium 3.4 mEq/L (3.5-5.1)
[2023-03-12] MEDS: LEVOTHYROXINE SOD 0.075 MG TAB PO SCH (06:13)
[2023-03-12] MEDS: carvediloL 25 MG TAB PO SCH ×2 (06:13→17:07)
[2023-03-12] MEDS: INSULIN REGULAR (HUMAN) 100 UNIT/ML SQ SCH ×4 (07:30→20:36)
[2023-03-12] MEDS: SUCRALFATE 1GM/10ML UCUP PO SCH ×4 (08:35→20:36)
[2023-03-12] MEDS: PANTOPRAZOLE 40 MG INJ IVP SCH ×2 (08:36→20:36)
[2023-03-12] MEDS: AMLODIPINE 5 MG TAB PO SCH (08:36)
[2023-03-12] MEDS ORDERED: DICYCLOMINE HCL 10 MG CAP PO SCH (09:00)
[2023-03-12] MEDS: ENSURE CLEAR 200 ML CAN PO SCH ×2 (09:00→21:00)
[2023-03-12] MEDS ORDERED: MAGNESIUM SULFATE 1 gm IVPB 1 GM/100 ML BAG IV ONE (09:00)
[2023-03-12] MEDS ORDERED: POTASSIUM 25 MEQ EFFERV TAB PO ONE (09:00)
--- NOTE | 2023-03-12 09:51 | P.PN ---
Date of Service: 03/12/23 Subjective No vomiting since yesterday Tolerated clear liquid diet this morning Feeling a bit better No acute events overnight ROS 10 point ROS as noted above, otherwise negative Physical Exam General: AAO x3, no distress HEENT: Atraumatic, Normocephalic, PERRLA Neck: Supple, 2+ carotid pulse no bruit, JVD not distended Respiratory: Clear to auscultation bilaterally, Normal air movement, symmetrical chest wall movement Cardiovascular: No edema, Normal pulses, Regular rate/rhythm intermittent tachycardia, Normal S1 S2 Gastrointestinal: Normal bowel sounds, Hypoactive, mild epigastric tenderness Musculoskeletal: No clubbing, No swelling, No contractures Neurological: Normal speech, Normal strength at 5/5 x4 extr, Normal tone Vitals Reviewed Problem list Intractable nausea secondary to gastritis Mild Leukocytosis Fluid volume deficit SILKE on CKD 3 Diabetes-NIDDM Plan Intractable nausea secondary to gastritis Mild Leukocytosis-resolved Fluid volume deficit S/P cholecystectomy 03/01 CT abd/pelvis reports " no acute finding in the abdomen/pelvis" Hida scan unremarkable EGD with moderate gastritis, stomach bile present Gastric emptying study with mild delayed gastric emptying Continue acid suppression therapy with twice daily PPI and Carafate Tolerated clear liquids, will try full liquids for lunch Reports she has been having daily symptoms of reflux/vomiting for the last 1 to 2 years but usually vomits once in the mornings Possible discharge either tonight or tomorrow morning HX HTN Resume home medications SILKE on CKD 3 Tolerating clear liquids, IV fluids stopped Monitor chemistry daily Nephrology following Diabetes-NIDDM accucheck with SSI Hx GERD HX HLD HX hypothyroidism Restarted synthroid 03/08, monitor if tolerating PO meds DVT ppx heparin Full code
[2023-03-12] MEDS ORDERED: PROMETHAZINE INJ 25 MG/ML AMP IV PRN (10:02)
[2023-03-12] MEDS: HYDROCODONE/APAP 5/325 MG TAB PO PRN (11:04)
--- NOTE | 2023-03-12 11:53 | P.PN ---
Nephrology (S) Still mildly nauseous at times, no active vomiting. Has been OOB (O) Vitals, medications, blood work and imaging reviewed in the chart General: NAD HEENT: Atraumatic, sclera anicteric, not on O2 Neck: Supple Respiratory: Normal air movement, non tachypnec,no rales Cardiovascular: No edema, Regular rate/rhythm Gastrointestinal: Soft, ND, NT Musculoskeletal: No clubbing, No contractures Integumentary: No rashes Neurological: Normal speech, awake, alert Imagings Data: EXAM DESCRIPTION: US - Renal Ultrasound-Complete - 03/01/2023 2:23 pm CLINICAL HISTORY: abdominal pain COMPARISON: Abdomen Pelvis Wo Contrast dated 03/01/2023 TECHNIQUE: Sonographic grayscale and color flow images of the kidneys and bladder were obtained. FINDINGS: Both kidneys are normal in size, shape, and echotexture. The right kidney measures 9.2 cm in length. Incidentally noted upper to midpole 1.2 cm anechoic cyst. No hydronephrosis, focal mass, or echogenic calculi. The left kidney measures 9.4 cm in length. Mildly prominent left renal pelvis, may reflect a pelviectasis or early hydronephrosis. No focal mass, or echogenic calculi. Trace left perinephric fluid. The urinary bladder is without gross abnormality seen. . Bilateral ureteral jets are demonstrated. IMPRESSION: Mildly prominent left renal pelvis, may relate to pelviectasis or early hydronephrosis. Incidentally noted anechoic right upper to mid pole renal cyst, benign in appearance. . Conclusions/Impression: Stage II SILKE earlier this mo possible in the setting of initial insults such as pre-renal state, NSAIDs use/other leading to some intrinsic injury ATN as Cr levels remain elevated and plateaued CKD III unspecified suspected underlying 2nd to chronic HTN/DM -s/p hydration, Cr level had peaked and plateaued now. CT imaging did not show obstructive uropathy. -Will need close OP f/u Chronic HTN, labile pressures -Unclear if accelerated HTN 2nd to sympathetic response with pain or even secondary to renal causes. Cont Coreg, did add CCB. Hold off on any rapid dose titration and will have her monitor BP closely as OP Abnormal findings in urine, unspecified. -Repeat UA does not show pyuria or hematuria but pt on spot urine does have notable proteinuria which will need to be repeated in a few weeks and if persists in the nephrotic range, will warrant additional w/u. Pt has had chronic DM and in 2018 A1c was > 11% so certainly this could represent diabetic nephropathy N/V, unspecified -Multifactorial etiology, cont reccs as per GI/IM Clifford Drake MD, FASN
[2023-03-12] MEDS ORDERED: ONDANSETRON 4 MG/2 ML VIAL IV PRN (16:01)
[2023-03-12] MEDS ORDERED: METOCLOPRAMIDE 5 MG TAB PO SCH (16:30)
--- NOTE | 2023-03-12 18:23 | P.PN ---
Subjective Date of Service: 03/12/23 Chief Complaint: intractable n/v Subjective: Improving (Tolerated solid food for dinner tonight. Wants to go home. Family is with her (4); they state she is a stressful person and worries excessively. She does not like to exercise and go outside as per . She is willing to change.), Other (Gastric emptying study positive for delayed gastric emptying.) Review of Systems Unremarkable Physical Examination - Vital Signs Temperature: 98.1 F Blood Pressure: 119/67 Pulse: 75 Respirations: 16 Pulse Ox (%): 97 - Physical Exam General: Alert, In no apparent distress, Oriented x3, Cooperative HEENT: Atraumatic, Normocephalic, PERRLA, EOMI Neck: Supple Respiratory: Clear to auscultation bilaterally Cardiovascular: Normal pulses Gastrointestinal: Soft and benign, No tenderness, No rebound, No guarding Neurological: Normal speech, Normal strength at 5/5 x4 extr Assessment And Plan - Current Problems (Diagnosis) (1) Diabetes mellitus, type II Onset Date: 11/30/17 Current Visit: No Status: Acute (2) Nausea & vomiting Current Visit: No Status: Acute Qualifiers: Vomiting type: unspecified Qualified Code(s): R11.2 - Nausea with vomiting, unspecified (3) Gastroparesis Current Visit: Yes Status: Acute - Plan REC: 1) optimize DM management 2) Erythromycin 40 mg po qid (cut pill into quarters and take qid), cycle 3 weeks on and then off and repeat 3) stress management 4) diaphragmatic breathing 5) GI clinic f/u
[2023-03-13] MEDS: HYDROCODONE/APAP 5/325 MG TAB PO PRN (00:31)
[2023-03-13] MEDS: HEPARIN 5000 UNIT/ML 1 ML VIAL SQ SCH ×2 (00:31→09:00)
[2023-03-13 03:15] LABS: Absolute Lymphocytes (CBC) 2.4 K/uL (0.7-4.9); Hematocrit 24.6 % (36.0-45.0); Lymphocytes % 24.9 % (15.3-44.8); MCV 90.2 fL (80-100); MPV 7.6 fL (7.6-11.3); Platelets 400 thou/uL (152-406); RBC Red Blood Cell Count 2.73 M/uL (3.86-4.86)
[2023-03-13 03:31] LABS: Magnesium 2.1 mg/dL (1.6-2.4); Phosphorus 1.9 mg/dL (2.5-4.9); Potassium 3.6 mEq/L (3.5-5.1)
[2023-03-13] MEDS: LEVOTHYROXINE SOD 0.075 MG TAB PO SCH (06:21)
[2023-03-13] MEDS: carvediloL 25 MG TAB PO SCH (06:21)
[2023-03-13] MEDS: SUCRALFATE 1GM/10ML UCUP PO SCH (06:22)
[2023-03-13] MEDS: INSULIN REGULAR (HUMAN) 100 UNIT/ML SQ SCH (07:30)
[2023-03-13] MEDS ORDERED: POTASSIUM CL SA 10 MEQ TAB PO ONE (08:00)
[2023-03-13] MEDS: ENSURE CLEAR 200 ML CAN PO SCH (09:00)
[2023-03-13] MEDS ORDERED: POTASSIUM PHOS IN 0.9 % NACL 15 MMOL/250 ML BAG IV ONE (09:00)
[2023-03-13 09:11] VITALS: BP 127/76; TEMP 98.4
[2023-03-13] MEDS: AMLODIPINE 5 MG TAB PO SCH (09:25)
[2023-03-13] MEDS: PANTOPRAZOLE 40 MG INJ IVP SCH (09:25)
--- NOTE | 2023-03-13 11:05 | P.DS ---
Admission Date: 03/08/23 Discharge Date: 03/13/23 Disposition: ROUTINE DISCHARGE Discharge Condition: GOOD Reason for Admission: intractable n/v Consultations: NephrologyDr. Marcia Downey Brief History of Present Illness: Elsy Bradford is a 48-year-old female with past medical history of Diabetes - NIDDM; GERD; High Cholesterol; Hypertension; Thyroid problem who presents to the ED with complaints of intractable nausea, vomiting, abdominal pain. Symptom onset was yesterday. She reports not being able to keep any food or liquid down since yesterday. On evaluation, surgical incisions remain covered in bandaids, abdominal pain on palpation to the right upper and lower quadrant. She is vomitting and having dry heaving during the evaluation. White count is elevated at 13.4, serum glucose elevated at 250, AST/ALT and lipase are WNL, Alk phos 135. Initial vital BP 171 / 111; Pulse 106; Resp 20; Temp 97; Pulse Ox 100% Significant labs WBC 13.4, platelets 598, serum glucose 250, lipase 21, alk phos 135, AST/ALT within normal range, BUN/creatinine 2.7/25, GFR 21 Chest x-ray reports " No acute cardiopulmonary disease." CT abdomen/pelvis reports " no acute finding in the abdomen/pelvis" Elsy will be admitted to hospitalist service for further evaluation and treatment of intractable nausea/vomitting, Dr. Rodriguez and nephrology consulted Allergies Hospital Course: Problem list Intractable nausea secondary to gastritis Mild Leukocytosis Fluid volume deficit SILKE on CKD 3 Diabetes-NIDDM Patient was admitted to the hospital for intractable vomiting. During her hospitalization she had an EGD which showed gastritis and a gastric emptying study which showed mild delayed gastric emptying. Her diet was slowly advanced and she tolerated a regular diet last night. She is feeling much better. GI recommends twice daily protonix, ACHS carafate. Addition on erythromycin 40mg QID for three weeks was discussed with patient but as she was feeling better she did not feel this was necessary at this time. She has CKD, renal function remains similar to recent admission/discharge, nephrology added amlodipine 5mg daily and increased her carvedilol to 25mg twice daily. She was instructed to follow up closely with nephrology. At discharge she will be given the following new medications/medication changes Stop nexium, start protonix 40mg PO BID Start taking amlodipine 5mg PO once daily Start taking carafate 1gm PO ACHS Carvedilol increased to 25mg PO BID Please follow up with: Dr. Agee in 1-[address] Kennedy/Dr. Drake with neprhology in [address] Red with GI in 1-2 weeks Vital Signs/Physical Exam: Temp Pulse Resp BP Pulse Ox 98.4 F 71 16 127/76 100 03/13/23 08:00 03/13/23 09:25 03/13/23 08:00 03/13/23 09:25 03/13/23 08:00 General: Alert, In no apparent distress, Oriented x3 HEENT: Atraumatic, PERRLA Neck: Supple, JVD not distended Respiratory: Clear to auscultation bilaterally, Normal air movement Cardiovascular: Regular rate/rhythm, Normal S1 S2 Gastrointestinal: Normal bowel sounds, No tenderness Musculoskeletal: No tenderness Integumentary: No rashes Neurological: Normal speech, Normal tone, Normal affect Laboratory Data at Discharge: WBC 9.50 thou/uL (4.3-10.9) 03/13/23 02:33 Hgb 8.8 g/dL (12.0-15.0) L 03/13/23 02:33 Hct 24.6 % (36.0-45.0) L 03/13/23 02:33 Plt Count 400 thou/uL (152-406) 03/13/23 02:33 PT 11.8 SECONDS (9.5-12.5) 03/07/23 03:36 INR 1.07 03/07/23 03:36 Sodium 134 mEq/L (136-145) L 03/13/23 02:33 Potassium 3.6 mEq/L (3.5-5.1) 03/13/23 02:33 BUN 24 mg/dL (7-18) H 03/13/23 02:33 Creatinine 2.55 mg/dL (0.55-1.02) H 03/13/23 02:33 Glucose 222 mg/dL (74-106) H 03/13/23 02:33 Phosphorus 1.9 mg/dL (2.5-4.9) L 03/13/23 02:33 Magnesium 2.1 mg/dL (1.6-2.4) 03/13/23 02:33 Total Bilirubin 0.4 mg/dL (0.2-1.0) 03/07/23 03:36 AST 18 U/L (15-37) 03/07/23 03:36 ALT 32 U/L (13-56) 03/07/23 03:36 Alkaline Phosphatase 135 U/L (45-117) H 03/07/23 03:36 Triglycerides 311 mg/dL (<150) H 03/08/23 06:15 Cholesterol 161 mg/dL (<200) 03/08/23 06:15 HDL Cholesterol 34 mg/dL (40-60) L 03/08/23 06:15 Cholesterol/HDL Ratio 4.74 03/08/23 06:15 Lipase 21 U/L (13-75) 03/07/23 03:36 Home Medications: Glipizide [Glucotrol Xl] 10 mg PO DAILY 04/10/22 Atorvastatin Calcium [Lipitor*] 10 mg PO BEDTIME 03/01/23 Duloxetine HCl 20 mg PO DAILY 03/01/23 Levothyroxine Sodium 1 tab PO DAILY 03/01/23 Sitagliptin Phosphate [Januvia] 50 mg PO DAILY 03/01/23 Ondansetron [Zofran (Odt)*] 4 mg PO Q6H PRN #20 tab 03/03/23 Amlodipine [Norvasc*] 5 mg PO DAILY #30 tab 03/13/23 Amlodipine [Norvasc*] 5 mg PO DAILY #30 tab 03/13/23 Pantoprazole [Protonix Tab] 40 mg PO BID #60 tab 03/13/23 Sucralfate [Carafate -Tab] 1 gm PO ACHS #120 tab 03/13/23 carvediloL [Carvedilol] 25 mg PO BID #60 tab 03/13/23 carvediloL [Coreg*] 25 mg PO BID 6AM 6PM tab 03/13/23 New Medications: Sucralfate [Carafate -Tab] 1 gm PO ACHS #120 tab carvediloL [Carvedilol] 25 mg PO BID #60 tab Amlodipine [Norvasc*] 5 mg PO DAILY #30 tab Pantoprazole [Protonix Tab] 40 mg PO BID #60 tab Physician Discharge Instructions: PROBLEM: Nausea and vomiting GOAL: Clear understanding of disease process INSTRUCTIONS: Diet: Renal Activity: As tolerated Date Given: Patient was admitted to the hospital for intractable vomiting. During her hospitalization she had an EGD which showed gastritis and a gastric emptying study which showed mild delayed gastric emptying. Her diet was slowly advanced and she tolerated a regular diet last night. She is feeling much better. GI recommends twice daily protonix, ACHS carafate. Addition on erythromycin 40mg QID for three weeks was discussed with patient but as she was feeling better she did not feel this was necessary at this time. She has CKD, renal function remains similar to recent admission/discharge, nephrology added amlodipine 5mg daily and increased her carvedilol to 25mg twice daily. She was instructed to follow up closely with nephrology. At discharge she will be given the following new medications/medication changes Stop nexium, start protonix 40mg PO BID Start taking amlodipine 5mg PO once daily Start taking carafate 1gm PO ACHS Carvedilol increased to 25mg PO BID Please follow up with: Dr. Agee in 1-[address] Kennedy/Dr. Drake with neprhology in [address] Red with GI in 1-2 weeks Diet: Renal Activity: Ad rachael Followup: Cleve Kennedy DO [ACTIVE - CAN ADMIT] - 1 Week Adriano Agee DO [Primary Care Provider] - 1-2 Weeks Matthew Red MD [ASSOCIATE-ACTIVE - CAN ADMIT] - 1-2 Weeks Time spent managing pt's care (in minutes): 35
== END 2023-03-13 09:44 | disposition home or self-care (01) | DRG 391 ==
LOC: ER 03:11 → ERHOLD 07:39 → INTOOBSV 07:39 → OBSVTOIN 07:39 → 2ND 08:37 → OBSVTOIN 03-08 11:53
PROVIDERS: ADMIT Internal Medicine; ATTEND Hospitalist
PROC: 0DC38ZZ Extirpation of Matter from Lower Esophagus, Via Natural or Artificial Opening Endoscopic (ICD-10-PCS; principal; 2023-03-08 13:00)
PROC: 0DB68ZX Excision of Stomach, Via Natural or Artificial Opening Endoscopic, Diagnostic (ICD-10-PCS; 2023-03-10)
PROC: 0DB78ZX Excision of Stomach, Pylorus, Via Natural or Artificial Opening Endoscopic, Diagnostic (ICD-10-PCS; 2023-03-10)
DX: K29.40 Chronic atrophic gastritis without bleeding (principal); N17.0 Acute kidney failure with tubular necrosis; E87.1 Hypo-osmolality and hyponatremia; I12.9 Hypertensive chronic kidney disease with stage 1 through stage 4 chronic kidney disease, or unspecified chronic kidney disease; N18.32 Chronic kidney disease, stage 3b; E11.22 Type 2 diabetes mellitus with diabetic chronic kidney disease; D63.1 Anemia in chronic kidney disease; D50.9 Iron deficiency anemia, unspecified; K22.2 Esophageal obstruction; K21.9 Gastro-esophageal reflux disease without esophagitis; E03.9 Hypothyroidism, unspecified; E78.00 Pure hypercholesterolemia, unspecified; D72.829 Elevated white blood cell count, unspecified; Z88.5 Allergy status to narcotic agent; Z90.49 Acquired absence of other specified parts of digestive tract; Z79.82 Long term (current) use of aspirin; Z79.84 Long term (current) use of oral hypoglycemic drugs; Z79.02 Long term (current) use of antithrombotics/antiplatelets; Z79.899 Other long term (current) drug therapy; Z79.890 Hormone replacement therapy
CPT/HCPCS: 36415; 71045; 74176; 78226; 78264; 80048; 80061; 80076; 81001; 82570; 82947; 83690; 83735; 84100; 84156; 84439; 84443; 84484; 85025; 85610; 88305; 88312; 93005; A9537; A9541; C9113; G0378; J0171; J0360; J1170; J1644; J1815; J2001; J2405; J2550; J2704; J3475; J7030; Q9967

== ENCOUNTER → 2023-03-28 | Emergency (ER) | payer OTHER ==
[~2023-03-28] MED LIST: HALOPERIDOL LACT 5 MG/ML INJ ONE; KETOROLAC 30 MG/ML INJ ONE; NA CHLORIDE 0.9% 1,000 ML ONE
--- OUTSIDE RECORDS SUMMARY | 2023-03-28 01:26 | XMS REPORT | Continuity of Care Document ---
Author Name Unknown Address [address] [facility] [address] [place] [address] [facility] thconnect Address [address] [facility] [address] [place] [address] Care Team Providers Care Wax Specialist Name Role Phone ANDREW VERDUZCO Primary Care Physician GIDEON Danielson Attending Clinician Unavailable DEANNE KAUR Attending Clinician Unavail able MATEO ANTHONY Attending Clinician Unavailable ERIC DURBIN Attending Clinician Unavailab IVIS Godwin Attending Clinician Unavailable ADRIANO AGEE Attending Clinician Unavailable KEMAR RODRIGUEZ Attending Clinician Unavailab ESTHER Marsh Attending Clinician Unavailable KEATON PATIÑO Attending Clinician Unavailable Keaton Patiño MD Attending Clinician MD ELIJAH Attending Clinician Unavailab TANGELA Mendoza Attending Clinician Unavailab le ONLY, [facility] HEM/ONC NURSE Attending Clinician Lila vailable [id number] Attending Clinician Unavailable LIZETH FLORES Attending Clinician Unavailable 1, [facility] Attending Clinic mann Unavailable SEBASTIAN CHUNG Attending Clinician Unava ilable ANDREI MAR Attending Clinician Unavailable LAB90 Attending Clinician Unavailable TOMOGRAPHY, [facility] COHERENCE Attending Cl inician [...] Unavailable Malini Muñoz LMSW Attending Clinician [phone] Doctor Unassigned, [place] Attending Clinician U navailable UNKNOWN, ATTENDING Attending Clinician Unavailab LEXA Watson Attending Clinician Unavailable Lexa Goff DO Attending Clinician [phone] PATRIA LEVY Attending Clinician Unavailab Santos Colón Attending Clinician Unavailable KEATON PATIÑO Admitting Clinician Unavailable LEXA GFOF Admitting Clinician Unavailable Santos MOISE Admitting Clinician Unavailable Payers Payer Name Policy Type Policy Number Effective Date Expirati on Date Source [employer] 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 ON STAND 9 [id number] 2022 00:00:00 [employer] 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 [id number] 2023 00:00:00 Problems Condition Name Condition Details Condition Category Status Onset Date Resolution Date Last Treatment Date Treating Clinician Comments Source Pain in both hands Pain in both hands Disease Active 2022-02 00:00: 00 Melissa Seybold - Externa l Left elbow pain Left elbow pain Disease Active 2022-02 1-03 00:00: 00 Melissa Seybold - Externa [...] 27.0-27.9, adult Disease Active 08-20 00:00: 00 [facility] Screening examinatio n for STD (sexually transmitte d disease) Screening examinatio n for STD (sexually transmitte d disease) Disease Active 08-20 00:00: 00 [facility] Elevated blood pressure reading without diagnosis of hypertensi on Elevated blood pressure reading without diagnosis of hypertensi on Disease Active 08-20 00:00: 00 [facility] BMI 27.0-27.9, adult BMI 27.0-27.9, adult Disease Active 08-20 00:00: 00 [facility] Pain pelvic Pain pelvic Disease Active 08-20 00:00: 00 [facility] Allergies, Adverse Reactions, Alerts Allergy Name Allergy Type Status Severity Reaction(s) Onset Date Inactive Date Treating Clinician Comments Source Hydrocod one Propensi ty to adverse reaction s Active 04-09 00:00: 00 Other reaction( s): Nausea/Vo mitingOth er reaction( s): Not available Melissa cates NO KNOWN ALLERGIE S Drug Class Active [facility] Social History Social Habit Start Date Stop Date Quantity Comments Source Gender identity Trisha Grant - External Sexual orientation [facility] Alcohol intake 2023-03-17 00:00:00 2023-03-17 00:00:00 Ex-drinker (finding) Melissa Grant - External [...] of Social function 2021-09-30 00:00:00 2021-09-30 00:00:00 [facility] Exposure to SARS-CoV-2 (event) 2021-09-19 00:00:00 2021-09-29 13:11:00 Not sure [facility] History SDOH Alcohol Frequency 2019-08-21 00:00:00 2019-08-21 00:00:00 2 [facility] History SDOH Alcohol Std Drinks 2019-08-21 00:00:00 2019-08-21 00:00:00 1 [facility] History SDOH Alcohol Binge 2019-08-21 00:00:00 2019-08-21 00:00:00 1 [facility] Alcohol Comment 2019-08-21 00:00:00 2019-08-21 00:00:00 social [facility] Sex Assigned At 1975 00:00:00 1975 00:00:00 Melissa Ugalde Smoking Status Start Date Stop Date Source Ex-smoker 2022-09-02 00:00:00 2022-09-02 00:00:00 Santos Ugalde Smokes tobacco daily 2022-04-03 00:00:00 Melissa Ugalde Never smoked tobacco [facility] Medications Ordered Medication Name Filled Medication Name Start Date Stop Date Current Medication? Ordering Clinician Indication Dosage Frequency Signature (SIG) Comments Components Source Amoxicillin -Pot Clavulanate 875-125 MG oral Tablet 02-26 00:00: 00 Yes 1{tbl} Take 1 tablet by mouth 2 times daily. Melissa cates Amoxicillin -Pot Clavulanate 875-125 MG oral Tablet 02-26 00:00: 00 Yes 1{tbl} Take 1 tablet by mouth 2 times daily. Melissa cates metoclopram torrey HCl (REGLAN) injection 10 mg 02-24 06:45: 00 02-24 06:46 :00 No 10mg 10 mg, Slow IV Push, ONCE, 1 dose, On Wed02/24/23 at 0045, FRANK [facility] morpHINE (4 mg/mL) injection 4 mg 02-24 06:45: 00 02-24 06:45 :00 No 4mg 4 mg, Slow IV Push, ONCE, 1 dose, On Wed02/24/23 at 0045, STAT [facility] ondansetron (ZOFRAN (PF)) injection 4 mg 02-24 06:00: 00 02-24 05:53 :00 No 4mg 4 mg, Slow IV Push, ONCE, 1 dose, On Wed02/24/23 at 0000, FRANK [facility] NaCl 0.9% (NS) IV infusion 1,000 mL 02-24 05:15: 00 Yes 1000mL at 999 mL/hr, Intravenou s, CONTINUOUS , Starting on Wed02/23/23 at 2315, Until Discontinu ed, Routine [facility] ketorolac (TORADOL) injection 30 mg 02-24 05:15: 00 02-24 04:27 :00 No 30mg 30 mg, Slow IV Push, ONCE, 1 dose, On Wed02/23/23 at 2315, Routine [facility] ondansetron (ZOFRAN (PF)) injection 4 mg 02-24 04:15: 00 02-24 04:14 :00 No 4mg 4 mg, Slow IV Push, ONCE, 1 dose, On Wed02/23/23 at 2215, FRANK [facility] maalox:diph enhydrAMINE :lidocaine 2 % viscous 1:1:1 (FIRST-MOUT HWASH BLM) oral suspension 15 mL 02-24 04:15: 00 02-24 04:13 :00 No 15mL 15 mL, Oral, ONCE, 1 dose, On Wed02/23/23 at 2215, Routine [facility] dicyclomine 20 mg tablet 02-24 00:00: 00 Yes [id number] 20mg Take 1 tablet by mouth every 6 (six) hours as needed for Abdominal pain. [facility] proMETHazin e 25 mg tablet 02-24 00:00: 00 Yes [id number] 25mg Take 1 tablet by mouth every 6 (six) hours as needed for Nausea and Vomiting (N/V). [facility] traMADoL (ULTRAM) 50 mg tablet 02-24 00:00: 00 Yes [id number] 50mg Take 1 tablet by mouth every 6 (six) hours as needed for Pain (scale 7-10). Indication s: acute pain [facility] dicyclomine 20 mg tablet 02-24 00:00: 00 02-24 00:00 :00 No [id number] 20mg Take 1 tablet by mouth every 6 (six) hours as needed for Abdominal pain. [facility] traMADoL (ULTRAM) 50 mg tablet 02-24 00:00: 00 02-24 00:00 :00 No [id number] 50mg Take 1 tablet by mouth every 6 (six) hours as needed for Pain (scale 7-10). Indication s: acute pain [facility] proMETHazin e 25 mg tablet 02-24 00:00: 00 02-24 00:00 :00 No [id number] 25mg Take 1 tablet by mouth every 6 (six) hours as needed for Nausea and Vomiting (N/V). [facility] Ondansetron HCl 4 MG oral Tablet 02-23 00:00: 00 Yes [id number] 4mg Q.[id number] 3D Take 1 tablet (4 mg total) by mouth every 8 hours as needed for nausea. Melissa cates Ondansetron HCl 4 MG oral Tablet 02-23 00:00: 00 Yes [id number] 4mg Q.[id number] 3D Take 1 tablet (4 mg total) by mouth every 8 hours as needed for nausea. Melissa cates Ibuprofen (MOTRIN) 400 MG oral Tablet 02-16 00:00: 00 Yes [id number] 400mg Q.25D Take 1 tablet (400 mg total) by mouth every 6 hours as needed. Melissa cates HYDROcodone -Acetaminop hen (Virden) 5-325 MG oral Tablet 02-16 00:00: 00 Yes [id number] 1{tbl} Q.25D Take 1 tablet by mouth every 6 hours as needed for pain. Melissa Rudy - Externa l Ibuprofen (MOTRIN) 400 MG oral Tablet 02-16 00:00: 00 Yes [id number] 400mg Q.25D Take 1 tablet (400 mg total) by mouth every 6 hours as needed. Melissa Grant - Externa l HYDROcodone -Acetaminop hen (Virden) 5-325 MG oral Tablet 02-16 00:00: 00 Yes [id number] 1{tbl} Q.25D Take 1 tablet by mouth every 6 hours as needed for pain. Melissa Grant - Externa l Ibuprofen (MOTRIN) 400 MG oral Tablet 02-16 00:00: 00 Yes [id number] 400mg Q.25D Take 1 tablet (400 mg total) by mouth every 6 hours as needed. Melissa Grant - Externa l HYDROcodone -Acetaminop hen (Virden) 5-325 MG oral Tablet 02-16 00:00: 00 Yes [id number] 1{tbl} Q.25D Take 1 tablet by mouth every 6 hours as needed for pain. Melissa Griffin Externa l Ibuprofen (MOTRIN) 400 MG oral Tablet 02-16 00:00: 00 Yes [id number] 400mg Q.25D Take 1 tablet (400 mg total) by mouth every 6 hours as needed. Melissa Grant - Externa l HYDROcodone -Acetaminop hen (Virden) 5-325 MG oral Tablet 02-16 00:00: 00 Yes [id number] 1{tbl} Q.25D Take 1 tablet by mouth every 6 hours as needed for pain. Melissa Grant - Externa l Benzonatate (Tessalon Perles) 100 MG oral Capsule 2022-02 00:00: 00 Yes [id number] 100mg Q.[id number] 3D Take 1 capsule (100 mg total) by mouth 3 times daily as needed for cough. Melissa Grant - Externa l Benzonatate (Tessalon Perles) 100 MG oral Capsule 2022-02 00:00: 00 Yes [id number] 100mg Q.13919889 [id number] 3D Take 1 capsule (100 mg total) by mouth 3 times daily as needed for cough. Melissa Uribea l Benzonatate (Tessalon Perles) 100 MG oral Capsule 2022-02 00:00: 00 Yes [id number] 100mg Q.[id number] 3D Take 1 capsule (100 mg total) by mouth 3 times daily as needed for cough. Melissa Grant - Externa l Benzonatate (Tessalon Perles) 100 MG oral Capsule 2022-02 00:00: 00 Yes [id number] 100mg Q.[id number] 3D Take 1 capsule (100 mg total) by mouth 3 times daily as needed for cough. Melissa Griffin Externa l Benzonatate (Tessalon Perles) 100 MG oral Capsule 2022-02 00:00: 00 02-16 00:00 :00 No [id number] 100mg Q.[id number] 3D Take 1 capsule (100 mg total) by mouth 3 times daily as needed for cough. Melissa cates Azithromyci n 250 MG oral Tablet 2022-02 00:00: 00 01-04 05:59 :00 Yes [id number] Take 2 tablets by mouth on day [...] Take 1 tablet by mouth daily. Melissa Seybold - Externa l Olmesartan Medoxomil 5 MG [...] Take 1 tablet by mouth daily. Melissa Quigleypawelmayra - Externa l Olmesartan Medoxomil 5 MG oral Tablet 2022-02 00:00: 00 Yes 1{tbl} Take 1 tablet by mouth daily. Melissa Beatricemayra Griffin Externa l Ferrous Sulfate (Iron) 325 (65 Fe) MG oral Tablet 2022-02 00:00: 00 Yes [id number] 325mg Take 1 tablet (325 mg total) by mouth daily (with breakfast) . Melissa Rudy - Externa l Ferrous Sulfate (Iron) 325 (65 Fe) MG oral Tablet 2022-02 00:00: 00 Yes [id number] 325mg Take 1 tablet (325 mg total) by mouth daily (with breakfast) . Melissa Beatricemayra - Externa l Ferrous Sulfate (Iron) 325 (65 Fe) MG oral Tablet 2022-02 00:00: 00 Yes [id number] 325mg Take 1 tablet (325 mg total) by mouth daily (with breakfast) . Melissa Rudy - Externa l Ferrous Sulfate (Iron) 325 (65 Fe) MG oral Tablet 2022-02 00:00: 00 Yes [id number] 325mg Take 1 tablet (325 mg total) by mouth daily (with breakfast) . Melissa Rudy - Externa l Ferrous Sulfate (Iron) 325 (65 Fe) MG oral Tablet 2022-02 00:00: 00 Yes [id number] 325mg Take 1 tablet (325 mg total) by mouth daily (with breakfast) . Melissa Rudy - Externa l Ferrous Sulfate (Iron) 325 (65 Fe) MG oral Tablet 2022-02 00:00: 00 Yes [id number] 325mg Take 1 tablet (325 mg total) by mouth daily (with breakfast) . Melissa cates Ferrous Sulfate (Iron) 325 (65 Fe) MG oral Tablet 2022-02 00:00: 00 Yes [id number] 325mg Take 1 tablet (325 mg total) by mouth daily (with breakfast) . Melissa Griffin Externa darryn Ferrous Sulfate (Iron) 325 (65 Fe) MG oral Tablet 2022-02 00:00: 00 Yes [id number] 325mg Take 1 tablet (325 mg total) by mouth daily (with breakfast) . Melissa cates Ferrous Sulfate (Iron) 325 (65 Fe) MG oral Tablet 2022-02 00:00: 00 Yes [id number] 325mg Take 1 tablet (325 mg total) by mouth daily (with breakfast) . Melissa cates Atorvastati n Calcium (Lipitor) 10 MG oral Tablet 2022-02 00:00: 00 Yes [id number] 3 10mg Take 1 tablet (10 mg total) by mouth nightly. Melissa cates Atorvastati n Calcium (Lipitor) 10 MG oral Tablet 2022-02 00:00: 00 Yes [id number] 3 10mg Take 1 tablet (10 mg total) by mouth nightly. Melissa cates Atorvastati n Calcium (Lipitor) 10 MG oral Tablet 2022-02 00:00: 00 Yes [id number] 3 10mg Take 1 tablet (10 mg total) by mouth nightly. Melissa cates Duloxetine HCl [address] Particles 2022-02 00:00: 00 Yes [id number] 20mg Take 1 capsule (20 mg total) by mouth daily. Melissa cates Atorvastati n Calcium (Lipitor) 10 MG oral Tablet 2022-02 00:00: 00 Yes [id number] 3 10mg Take 1 tablet (10 mg total) by mouth nightly. Melissa cates Duloxetine HCl [address] Particles 2022-02 0 00:00: 00 Yes [id number] 20mg Take 1 capsule (20 mg total) by mouth daily. Melissa cates Atorvastati n Calcium (Lipitor) 10 MG oral Tablet 2022-02 0-30 00:00: 00 Yes [id number] 3 10mg Take 1 tablet (10 mg total) by mouth nightly. Melissa cates Duloxetine HCl [address] Particles 2022-02 0-30 00:00: 00 Yes [id number] 20mg Take 1 capsule (20 mg total) by mouth daily. Melissa cates Atorvastati n Calcium (Lipitor) 10 MG oral Tablet 2022-02 0 00:00: 00 Yes [id number] 3 10mg Take 1 tablet (10 mg total) by mouth nightly. Melissa cates Duloxetine HCl [address] Particles 2022-02 0 00:00: 00 Yes [id number] 20mg Take 1 capsule (20 mg total) by mouth daily. Melissa cates Atorvastati n Calcium (Lipitor) 10 MG oral Tablet 2022-02 0 00:00: 00 Yes [id number] 3 10mg Take 1 tablet (10 mg total) by mouth nightly. Melissa cates Duloxetine HCl [address] Particles 2022-02 030 00:00: 00 Yes [id number] 20mg Take 1 capsule (20 mg total) by mouth daily. Melissa cates Atorvastati n Calcium (Lipitor) 10 MG oral Tablet 2022-02 030 00:00: 00 Yes [id number] 3 10mg Take 1 tablet (10 mg total) by mouth nightly. Melissa cates Atorvastati n Calcium (Lipitor) 10 MG oral Tablet 2022-02 0-30 00:00: 00 Yes [id number] 3 10mg Take 1 tablet (10 mg total) by mouth nightly. Melissa cates Duloxetine HCl [address] Particles 2022-02 0-30 00:00: 00 02-16 00:00 :00 No [id number] 20mg Take 1 capsule (20 mg total) by mouth daily. Melissa cates glipiZIDE 10 MG oral Tablet 2022-02 00:00: 00 Yes [id number] 10mg Take 1 tablet (10 mg total) by mouth in the morning and 1 tablet (10 mg total) in the evening. Take before meals. Melissa cates glipiZIDE 10 MG oral Tablet 2022-02 00:00: 00 Yes [id number] 10mg Take 1 tablet (10 mg total) by mouth in the morning and 1 tablet (10 mg total) in the evening. Take before meals. Melissa cates glipiZIDE 10 MG oral Tablet 2022-02 00:00: 00 Yes [id number] 10mg Take 1 tablet (10 mg total) by mouth in the morning and 1 tablet (10 mg total) in the evening. Take before meals. Melissa cates glipiZIDE 10 MG oral Tablet 2022-02 00:00: 00 Yes [id number] 10mg Take 1 tablet (10 mg total) by mouth in the morning and 1 tablet (10 mg total) in the evening. Take before meals. Melissa cates glipiZIDE 10 MG oral Tablet 2022-02 00:00: 00 Yes [id number] 10mg Take 1 tablet (10 mg total) by mouth in the morning and 1 tablet (10 mg total) in the evening. Take before meals. Melissa cates glipiZIDE 10 MG oral Tablet 2022-02 00:00: 00 Yes [id number] 10mg Take 1 tablet (10 mg total) by mouth in the morning and 1 tablet (10 mg total) in the evening. Take before meals. Melissa cates glipiZIDE 10 MG oral Tablet 2022-02 00:00: 00 Yes [id number] 10mg Take 1 tablet (10 mg total) by mouth in the morning and 1 tablet (10 mg total) in the evening. Take before meals. Melissa cates glipiZIDE 10 MG oral Tablet 2022-02 00:00: 00 Yes [id number] 10mg Take 1 tablet (10 mg total) by mouth in the morning and 1 tablet (10 mg total) in the evening. Take before meals. Melissa cates glipiZIDE 10 MG oral Tablet 2022-02 0 00:00: 00 Yes [id number] 10mg Take 1 tablet (10 mg total) [...] Delayed Release Capsule 2022-02 00:00: 00 Yes [id number] 40mg Take 1 capsule (40 mg total) by mouth every morning (before breakfast) . Melissa cates Esomeprazol e Magnesium (NexIUM) 40 MG oral Delayed Release Capsule 2022-02 00:00: 00 Yes [id number] 40mg Take 1 capsule (40 mg total) by mouth every morning (before breakfast) . Melissa cates Esomeprazol e Magnesium (NexIUM) 40 MG oral Delayed Release Capsule 2022-02 00:00: 00 Yes [id number] 40mg Take 1 capsule (40 mg total) by mouth every morning (before breakfast) . Melissa cates Esomeprazol e Magnesium (NexIUM) 40 MG oral Delayed Release Capsule 2022-02 00:00: 00 Yes [id number] 40mg Take 1 capsule (40 mg total) by mouth every morning (before breakfast) . Melissa cates Carvedilol (Coreg) 6.25 MG oral Tablet 2022-02 00:00: 00 Yes [id number] 6.25mg Take 1 tablet (6.25 mg total) by mouth in the morning and 1 tablet (6.25 mg total) in the evening. Take with meals. Melissa cates Duloxetine HCl [address] Particles 2022-02 00:00: 00 Yes [id number] 20mg Take 1 capsule (20 mg total) by mouth daily. Melissa cates Esomeprazol e Magnesium (NexIUM) 40 MG oral Delayed Release Capsule 2022-02 00:00: 00 Yes [id number] 40mg Take 1 capsule (40 mg total) by mouth every morning (before breakfast) . Melissa cates Carvedilol (Coreg) 6.25 MG oral Tablet 2022-02 00:00: 00 Yes [id number] 6.25mg Take 1 tablet (6.25 mg total) by mouth in the morning and 1 tablet (6.25 mg total) in the evening. Take with meals. Melissa cates Esomeprazol e Magnesium (NexIUM) 40 MG oral Delayed Release Capsule 2022-02 00:00: 00 Yes [id number] 40mg Take 1 capsule (40 mg total) by mouth every morning (before breakfast) . Melissa cates Carvedilol (Coreg) 6.25 MG oral Tablet 2022-02 00:00: 00 Yes [id number] 6.25mg Take 1 tablet (6.25 mg total) by mouth in the morning and 1 tablet (6.25 mg total) in the evening. Take with meals. Melissa cates Esomeprazol e Magnesium (NexIUM) 40 MG oral Delayed Release Capsule 2022-02 00:00: 00 Yes [id number] 40mg Take 1 capsule (40 mg total) by mouth every morning (before breakfast) . Melissa cates Carvedilol (Coreg) 6.25 MG oral Tablet 2022-02 00:00: 00 Yes [id number] 6.25mg Take 1 tablet (6.25 mg total) by mouth in the morning and 1 tablet (6.25 mg total) in the evening. Take with meals. Melissa cates Esomeprazol e Magnesium (NexIUM) 40 MG oral Delayed Release Capsule 2022-02 00:00: 00 Yes [id number] 40mg Take 1 capsule (40 mg total) by mouth every morning (before breakfast) . Melissa cates Carvedilol (Coreg) 6.25 MG oral Tablet 2022-02 00:00: 00 Yes [id number] 6.25mg Take 1 tablet (6.25 mg total) by mouth in the morning and 1 tablet (6.25 mg total) in the evening. Take with meals. Melissa cates Esomeprazol e Magnesium (NexIUM) 40 MG oral Delayed Release Capsule 2022-02 00:00: 00 Yes [id number] 40mg Take 1 capsule (40 mg total) by mouth every morning (before breakfast) . Melissa cates Carvedilol (Coreg) 6.25 MG oral Tablet 2022-02 00:00: 00 Yes [id number] 6.25mg Take 1 tablet (6.25 mg total) by mouth in the morning and 1 tablet (6.25 mg total) in the evening. Take with meals. Melissa cates Esomeprazol e Magnesium (NexIUM) 40 MG oral Delayed Release Capsule 2022-02 00:00: 00 Yes [id number] 40mg Take 1 capsule (40 mg total) by mouth every morning (before breakfast) . Melissa cates Carvedilol (Coreg) 6.25 MG oral Tablet 2022-02 00:00: 00 02-16 00:00 :00 No [id number] 6.25mg Take 1 tablet (6.25 mg total) by mouth in the morning and 1 tablet (6.25 mg total) in the evening. Take with meals. Melissa cates Gabapentin 100 MG oral Capsule 2022-02 00:00: 00 11-11 00:00 :00 No [id number] 100mg Take 1 capsule (100 mg total) by mouth nightly. Melissa cates Duloxetine HCl [address] Particles 2022-02 0 00:00: 00 11-11 00:00 :00 No [id number] 20mg Take 1 capsule (20 mg total) by mouth daily. Melissa cates Aspirin 81 MG oral Tablet Delayed Response 11-05 14:58: 48 Yes Take 1 tablet every day by oral route. Melissa cates Gabapentin 100 MG oral Capsule 11-02 00:00: 00 Yes [id number] 100mg Q.5D Take 1 capsule (100 mg total) by mouth 2 times daily as needed (pain). Melissa Quigleyrobbie - Jojoa l Gabapentin 100 MG oral Capsule 11-02 00:00: 00 11-11 00:00 :00 No [id number] 100mg Q.5D Take 1 capsule (100 mg total) by mouth 2 times daily as needed (pain). Melissa Uribea l Bevacizumab (AVASTIN) 100 mg/4 mL - Physician Administere d ([id number]) 10-30 19:30: 00 10-30 19:19 :00 No [id number] 101 1.25mg Melissa Uribea l Bevacizumab (AVASTIN) 100 mg/4 mL - Physician Administere d ([id number]) 10-30 19:30: 00 10-30 19:19 :00 No [id number] 101 1.25mg 1.25 mg, Physician Administer ed, ONCE, 1 dose, On Wed10/30/22 at 1430 Melissa Uribea l Bevacizumab (AVASTIN) 100 mg/4 mL - Physician Administere d ([id number]) 10-30 19:30: 00 10-30 19:19 :00 No [id number] 101 1.25mg Melissa Griffin Externa l Bevacizumab (AVASTIN) 100 mg/4 mL - Physician Administere d ([id number]) 10-30 19:30: 00 10-30 19:19 :00 No [id number] 101 1.25mg 1.25 mg, Physician Administer ed, ONCE, 1 dose, On Wed10/30/22 at 1430 Melissa Uribea l Aspirin 81 MG oral [...] 81 MG oral Tablet Delayed Response 0 10-30 10:34: 52 Yes Take 1 tablet [...] oral route. Melissa Grant - Externa l Latanoprost 0.005 % ophthalmic Solution 10-13 00:00: 00 Yes [id number] 1[drp] Place 1 drop into both eyes nightly. Melissa Grant - Externa l Latanoprost 0.005 % ophthalmic Solution 10-13 00:00: 00 Yes [id number] 1[drp] Place 1 drop into both eyes nightly. Melissa Grant - Externa l Latanoprost 0.005 % ophthalmic Solution 0 10-13 00:00: 00 Yes [id number] 1[drp] Place 1 drop into both eyes nightly. Melissa Quigleyybold - Externa l Latanoprost 0.005 % ophthalmic Solution 0 10-13 00:00: 00 Yes [id number] 1[drp] Place 1 drop into both eyes nightly. Melissa Quigleyybold - Externa l Latanoprost 0.005 % ophthalmic Solution 10-13 00:00: 00 Yes [id number] 1[drp] Place 1 drop into both eyes nightly. Melissa Quigleyybold - Externa l Latanoprost 0.005 % ophthalmic Solution 2022-0 05 00:00: 00 Yes [id number] 1[drp] Place 1 drop into both eyes nightly. Melissa Seybold - Externa l Latanoprost 0.005 % ophthalmic Solution 2022-0 05 00:00: 00 Yes [id number] 1[drp] Place 1 drop into both eyes nightly. Melissa Seybold - Externa l Latanoprost 0.005 % ophthalmic Solution 2022-0 05 00:00: 00 Yes [id number] 1[drp] Place 1 drop into both eyes nightly. Melissa Seybold - Externa l Latanoprost 0.005 % ophthalmic Solution 2022-0 05 00:00: 00 Yes [id number] 1[drp] Place 1 drop into both eyes nightly. Melissa Seybold - Externa l Latanoprost 0.005 % ophthalmic Solution 2022-0 05 00:00: 00 Yes [id number] 1[drp] Place 1 drop into both eyes nightly. Melissa Seybold - Externa l Latanoprost 0.005 % ophthalmic Solution 2022-0 05 00:00: 00 Yes [id number] 1[drp] Place 1 drop into both eyes nightly. Melissa Seybold - Externa l Latanoprost 0.005 % ophthalmic Solution 2022-0 05 00:00: 00 Yes [id number] 1[drp] Place 1 drop into both eyes nightly. Melissa Seybold - Externa l Latanoprost 0.005 % ophthalmic Solution 2022-0 -05 00:00: 00 Yes [id number] 1[drp] Place 1 drop into both eyes nightly. Melissa Seybold - Externa l Latanoprost 0.005 % ophthalmic Solution 2022-0 9-05 00:00: 00 Yes [id number] 1[drp] Place 1 drop into both eyes nightly. Melissa Seybold - Externa l Latanoprost 0.005 % ophthalmic Solution 2022-0 -05 00:00: 00 Yes [id number] 1[drp] Place 1 drop into both eyes nightly. Melissa Seybold - Externa l Latanoprost 0.005 % ophthalmic Solution 0 -05 00:00: 00 Yes [id number] 1[drp] Place 1 drop into both eyes nightly. Melissa Quigleyybold - Externa l Latanoprost 0.005 % ophthalmic Solution 0 - 00:00: 00 Yes [id number] 1[drp] Place 1 drop into both eyes nightly. Melissa Grant - Externa l Latanoprost 0.005 % ophthalmic Solution 0 - 00:00: 00 Yes [id number] 1[drp] Place 1 drop into both eyes nightly. Melissa Quigelyybold - Externa l Latanoprost 0.005 % ophthalmic Solution 0 10-13 00:00: 00 Yes [id number] 1[drp] Place 1 drop into both eyes nightly. Melissa Grant - Externa l Latanoprost 0.005 % ophthalmic Solution 0 10-13 00:00: 00 Yes [id number] 1[drp] Place 1 drop into both eyes nightly. Melissa Grant - Externa l Atorvastati n Calcium (Lipitor) 10 MG oral Tablet 09-28 00:00: 00 Yes [id number] 3 10mg Take 1 tablet (10 mg total) by mouth nightly. Melissa Grant Externa darryn Atorvastati n Calcium (Lipitor) 10 MG oral Tablet 0 09-28 00:00: 00 Yes [id number] 3 10mg Take 1 tablet (10 mg total) by mouth nightly. Melissa Grant Externa l Atorvastati n Calcium (Lipitor) 10 MG oral Tablet 0 09-28 00:00: 00 Yes [id number] 3 10mg Take 1 tablet (10 mg total) by mouth nightly. Melissa Grant - Externa l Atorvastati n Calcium (Lipitor) 10 MG oral Tablet 0 09-28 00:00: 00 Yes [id number] 3 10mg Take 1 tablet (10 mg total) [facility] mouth [facility]. [facility]Lip[facility] 10 MG oral Tablet 0 09-28 00:00: 00 Yes [id number] 3 10mg Take 1 tablet (10 mg total) by mouth nightly. Melissa cates Atorvastati n Calcium (Lipitor) 10 MG oral Tablet 09-28 00:00: 00 Yes [id number] 3 10mg Take 1 tablet (10 mg total) by mouth nightly. Melissa cates Atorvastati n Calcium (Lipitor) 10 MG oral Tablet 09-28 00:00: 00 Yes [id number] 3 10mg Take 1 tablet (10 mg total) by mouth nightly. Melissa cates Atorvastati n Calcium (Lipitor) 10 MG oral Tablet 09-28 00:00: 00 Yes [id number] 3 10mg Take 1 tablet (10 mg total) by mouth nightly. Melissa cates Atorvastati n Calcium (Lipitor) 10 MG oral Tablet 09-28 00:00: 00 Yes [id number] 3 10mg Take 1 tablet (10 mg total) by mouth nightly. Melissa cates Atorvastati n Calcium (Lipitor) 10 MG oral Tablet 09-28 00:00: 00 Yes [id number] 3 10mg Take 1 tablet (10 mg total) by mouth nightly. Melissa cates Atorvastati n Calcium (Lipitor) 10 MG oral Tablet 09-28 00:00: 00 Yes [id number] 3 10mg Take 1 tablet (10 mg total) by mouth nightly. Melissa cates Latanoprost 0.005 % ophthalmic Solution 09-28 00:00: 00 10-13 00:00 :00 No [id number] 1[drp] Place 1 drop into both eyes nightly. Melissa cates Esomeprazol e Magnesium (NexIUM) 40 MG oral Delayed Release Capsule 09-08 00:00: 00 Yes 40mg Take 1 capsule (40 mg total) by mouth 2 times daily for 14 days Melissa cates Esomeprazol e Magnesium (NexIUM) 40 MG oral Delayed Release Capsule 8- 00:00: 00 Yes 40mg Take 1 capsule (40 mg total) by mouth 2 times daily for 14 days Melissa Griffin Externa darryn Esomeprazol e Magnesium (NexIUM) 40 MG oral Delayed Release Capsule 0 8- 00:00: 00 Yes 40mg Take 1 capsule (40 mg total) by mouth 2 times daily for 14 days Melissa Griffin Externa darryn Esomeprazol e Magnesium (NexIUM) 40 MG oral Delayed Release Capsule 0 8- 00:00: 00 Yes 40mg Take 1 capsule (40 mg total) by mouth 2 times daily for 14 days Melissa Griffin Externa darryn Esomeprazol e Magnesium (NexIUM) 40 MG oral Delayed Release Capsule 0 09-08 00:00: 00 Yes 40mg Take 1 capsule (40 mg total) by mouth 2 times daily for 14 days Melissa cates Esomeprazol e Magnesium (NexIUM) 40 MG oral Delayed Release Capsule 0 - 00:00: 00 Yes 40mg Take 1 capsule (40 mg total) by mouth 2 times daily for 14 days Melissa Griffin Externyudi cates Esomeprazol e Magnesium (NexIUM) 40 MG oral Delayed Release Capsule 2022-0 09-08 00:00: 00 Yes 40mg Take 1 capsule (40 mg total) by mouth 2 times daily for 14 days Melissa Uribea darryn Esomeprazol e Magnesium (NexIUM) 40 MG oral Delayed Release Capsule 2022-0 8- 00:00: 00 Yes 40mg Take 1 capsule (40 mg total) by mouth 2 times daily for 14 days Melissa Griffin Externa darryn Esomeprazol e Magnesium (NexIUM) 40 MG oral Delayed Release Capsule 2022-0 8- 00:00: 00 Yes 40mg Take 1 capsule (40 mg total) by mouth 2 times daily for 14 days Melissa Griffin Externa l Esomeprazol e Magnesium (NexIUM) 40 MG oral Delayed Release Capsule 2022-0 8- 00:00: 00 Yes 40mg Take 1 capsule (40 mg total) by mouth 2 times daily for 14 days Melissa cates Esomeprazol e Magnesium (NexIUM) 40 MG oral Delayed Release Capsule 09-08 00:00: 00 11-11 00:00 :00 No 40mg Take 1 capsule (40 mg total) by mouth 2 times daily for 14 days Melissa Griffin Externa darryn Metronidazo le (Flagyl) 500 MG oral Tablet 09-08 00:00: 00 11-05 00:00 :00 No 500mg Take 1 tablet (500 mg total) by mouth 2 times daily for 14 days Melissa Griffin Externa darryn Amoxicillin (AMOXIL) 500 MG oral Capsule 09-08 00:00: 00 10-26 00:00 :00 No 1000mg Take 2 capsules (1,000 mg total) by mouth 2 times daily for 14 days Melissa Griffin Externa darryn Ondansetron HCl 4 MG oral Tablet 09-04 00:00: 00 Yes [id number] 4mg Q.[id number] 3D Take 1 tablet (4 mg total) by mouth every 8 hours as needed for nausea Melissa Griffin Externa darryn Ondansetron HCl 4 MG oral Tablet 09-04 00:00: 00 Yes [id number] 4mg Q.[id number] [id number] 3D Take 1 tablet (4 mg total) by mouth every 8 hours as needed for nausea Melissa Uribea darryn Ondansetron HCl 4 MG oral Tablet 09-04 00:00: 00 Yes [id number] 4mg Q.[id number] 3D Take 1 tablet (4 mg total) by mouth every 8 hours as needed for nausea Melissa Griffin Externa darryn Ondansetron HCl 4 MG oral Tablet 09-04 00:00: 00 Yes [id number] 4mg Q.[id number] 3D Take 1 tablet (4 mg total) by mouth every 8 hours as needed for nausea Melissa Griffin Externa darryn Ondansetron HCl 4 MG oral Tablet 09-04 00:00: 00 Yes [id number] 4mg Q.[id number] 3D Take 1 tablet (4 mg total) by mouth every 8 hours as needed for nausea Melissa Seybold - Externa l Ondansetron HCl 4 MG oral Tablet 09-04 00:00: 00 Yes [id number] 4mg Q.[id number] 3D Take 1 tablet (4 mg total) by mouth every 8 hours as needed for nausea Melissa Seybold - Externa l Ondansetron HCl 4 MG oral Tablet 09-04 00:00: 00 Yes [id number] 4mg Q.13364929 [id number] 3D Take 1 tablet (4 mg total) by mouth every 8 hours as needed for nausea Melissa Seybold - Externa l Ondansetron HCl 4 MG oral Tablet 09-04 00:00: 00 Yes [id number] 4mg Q.[id number] 3D Take 1 tablet (4 mg total) by mouth every 8 hours as needed for nausea Melissa Seybold - Externa l Ondansetron HCl 4 MG oral Tablet 09-04 00:00: 00 Yes [id number] 4mg Q.[id number] 3D Take 1 tablet (4 mg total) by mouth every 8 hours as needed for nausea Melissa Serobbie - Externa l Ondansetron HCl 4 MG oral Tablet 09-04 00:00: 00 Yes [id number] 4mg Q.[id number] 3D Take 1 tablet (4 mg total) by mouth every 8 hours as needed for nausea Melissa Seybold - Externa l Ondansetron HCl 4 MG oral Tablet 09-04 00:00: 00 11-11 00:00 :00 No [id number] 4mg Q.41677318 [id number] 3D Take 1 tablet (4 mg total) by mouth every 8 hours as needed for nausea Melissa Sepawelold - Externa l Aspirin 81 MG oral Tablet Delayed Response 09-03 15:14: 59 Yes Take 1 tablet every day by oral route. Melissa Seybold - Externa l Levothyroxi ne Sodium 75 MCG oral Tablet 09-02 00:00: 00 Yes [id number] 75ug Take 1 tablet (75 mcg total) by mouth daily Melissa cates Sitagliptin Phosphate (Januvia) 50 MG oral Tablet 09-02 00:00: 00 Yes [id number] 50mg Take 1 tablet (50 mg total) by mouth daily Melissa cates Levothyroxi ne Sodium 75 MCG oral Tablet 09-02 00:00: 00 Yes [id number] 75ug Take 1 tablet (75 mcg total) by mouth daily Melissa cates Sitagliptin Phosphate (Januvia) 50 MG oral Tablet 09-02 00:00: 00 Yes [id number] 50mg Take 1 tablet (50 mg total) by mouth daily Melissa cates Levothyroxi ne Sodium 75 MCG oral Tablet 09-02 00:00: 00 Yes [id number] 75ug Take 1 tablet (75 mcg total) by mouth daily Melissa cates Sitagliptin Phosphate (Febuvia) 50 MG oral Tablet 09-02 00:00: 00 Yes [id number] 50mg Take 1 tablet (50 mg total) by mouth daily Melissa cates Levothyroxi ne Sodium 75 MCG oral Tablet 09-02 00:00: 00 Yes [id number] 75ug Take 1 tablet (75 mcg total) by mouth daily Melissa cates Sitagliptin Phosphate (Febuvia) 50 MG oral Tablet 09-02 00:00: 00 Yes [id number] 50mg Take 1 tablet (50 mg total) by mouth daily Melissa cates Lansoprazol e 30 MG oral Delayed Release Capsule 09-02 00:00: 00 Yes [id number] 30mg Take 1 capsule (30 mg total) by mouth daily Melissa cates Levothyroxi ne Sodium 75 MCG oral Tablet 09-02 00:00: 00 Yes [id number] 75ug Take 1 tablet (75 mcg total) by mouth daily Melissa cates Sitagliptin Phosphate (Januvia) 50 MG oral Tablet 09-02 00:00: 00 Yes [id number] 50mg Take 1 tablet (50 mg total) by mouth daily Melissa Griffin Externa darryn Lansoprazol e 30 MG oral Delayed Release Capsule 09-02 00:00: 00 Yes [id number] 30mg Take 1 capsule (30 mg total) by mouth daily Melissa Griffin Externa darryn Levothyroxi ne Sodium 75 MCG oral Tablet 09-02 00:00: 00 Yes [id number] 75ug Take 1 tablet (75 mcg total) by mouth daily Melissa Griffin Externa darryn Sitagliptin Phosphate (Januvia) 50 MG oral Tablet 09-02 00:00: 00 Yes [id number] 50mg Take 1 tablet (50 mg total) by mouth daily Melissa Griffin Externa darryn Lansoprazol e 30 MG oral Delayed Release Capsule 09-02 00:00: 00 Yes [id number] 30mg Take 1 capsule (30 mg total) by mouth daily Melissa Griffin Externa darryn Levothyroxi ne Sodium 75 MCG oral Tablet 09-02 00:00: 00 Yes [id number] 75ug Take 1 tablet (75 mcg total) by mouth daily Melissa Uribea darryn Sitagliptin Phosphate (Januvia) 50 MG oral Tablet 09-02 00:00: 00 Yes [id number] 50mg Take 1 tablet (50 mg total) by mouth daily Melissa Uribea darryn Lansoprazol e 30 MG oral Delayed Release Capsule 09-02 00:00: 00 Yes [id number] 30mg Take 1 capsule (30 mg total) by mouth daily Melissa Griffin Externa darryn Levothyroxi ne Sodium 75 MCG oral Tablet 09-02 00:00: 00 Yes [id number] 75ug Take 1 tablet (75 mcg total) by mouth daily Melissa Griffin Externa darryn Sitagliptin Phosphate (Januvia) 50 MG oral Tablet 09-02 00:00: 00 Yes [id number] 50mg Take 1 tablet (50 mg total) by mouth daily Melissa Griffin Externa darryn Lansoprazol e 30 MG oral Delayed Release Capsule 09-02 00:00: 00 Yes [id number] 30mg Take 1 capsule (30 mg total) by mouth daily Melissa Uribea darryn Levothyroxi ne Sodium 75 MCG oral Tablet 09-02 00:00: 00 Yes [id number] 75ug Take 1 tablet (75 mcg total) by mouth daily Melissa Uribea darryn Sitagliptin Phosphate (Januvia) 50 MG oral Tablet 09-02 00:00: 00 Yes [id number] 50mg Take 1 tablet (50 mg total) by mouth daily Melissa cates Lansoprazol e 30 MG oral Delayed Release Capsule 09-02 00:00: 00 Yes [id number] 30mg Take 1 capsule (30 mg total) by mouth daily Melissa Uribea darryn Levothyroxi ne Sodium 75 MCG oral Tablet 09-02 00:00: 00 Yes [id number] 75ug Take 1 tablet (75 mcg total) by mouth daily Melissa cates Sitagliptin Phosphate (Januvia) 50 MG oral Tablet 09-02 00:00: 00 Yes [id number] 50mg Take 1 tablet (50 mg total) by mouth daily Melissa cates Lansoprazol e 30 MG oral Delayed Release Capsule 09-02 00:00: 00 Yes [id number] 30mg Take 1 capsule (30 mg total) by mouth daily Melissa cates Levothyroxi ne Sodium 75 MCG oral Tablet 09-02 00:00: 00 Yes [id number] 75ug Take 1 tablet (75 mcg total) by mouth daily Melissa cates Sitagliptin Phosphate (Januvia) 50 MG oral Tablet 09-02 00:00: 00 Yes [id number] 50mg Take 1 tablet (50 mg total) by mouth daily Melissa Uribea darryn Lansoprazol e 30 MG oral Delayed Release Capsule 09-02 00:00: 00 Yes [id number] 30mg Take 1 capsule (30 mg total) by mouth daily Melissa Griffin Externa darryn Levothyroxi ne Sodium 75 MCG oral Tablet 09-02 00:00: 00 Yes [id number] 75ug Take 1 tablet (75 mcg total) by mouth daily Melissa cates Sitagliptin Phosphate (Januvia) 50 MG oral Tablet 09-02 00:00: 00 Yes [id number] 50mg Take 1 tablet (50 mg total) by mouth daily Melissa cates Lansoprazol e 30 MG oral Delayed Release Capsule 09-02 00:00: 00 Yes [id number] 30mg Take 1 capsule (30 mg total) by mouth daily Melissa Uribea darryn Levothyroxi ne Sodium 75 MCG oral Tablet 09-02 00:00: 00 Yes [id number] 75ug Take 1 tablet (75 mcg total) by mouth daily Melissa cates Sitagliptin Phosphate (Januvia) 50 MG oral Tablet 09-02 00:00: 00 Yes [id number] 50mg Take 1 tablet (50 mg total) by mouth daily Melissa cates Lansoprazol e 30 MG oral Delayed Release Capsule 09-02 00:00: 00 Yes [id number] 30mg Take 1 capsule (30 mg total) by mouth daily Melissa Uribea darryn Levothyroxi ne Sodium 75 MCG oral Tablet 09-02 00:00: 00 Yes [id number] 75ug Take 1 tablet (75 mcg total) by mouth daily Melissa cates Sitagliptin Phosphate (Januvia) 50 MG oral Tablet 09-02 00:00: 00 Yes [id number] 50mg Take 1 tablet (50 mg total) by mouth daily Melissa cates Lansoprazol e 30 MG oral Delayed Release Capsule 09-02 00:00: 00 Yes [id number] 30mg Take 1 capsule (30 mg total) by mouth daily Melissa Uribea darryn Levothyroxi ne Sodium 75 MCG oral Tablet 09-02 00:00: 00 Yes [id number] 75ug Take 1 tablet (75 mcg total) by mouth daily Melissa cates Sitagliptin Phosphate (Januvia) 50 MG oral Tablet 09-02 00:00: 00 Yes [id number] 50mg Take 1 tablet (50 mg total) by mouth daily Melissa Grant - Externa darryn Levothyroxi ne Sodium 75 MCG oral Tablet 09-02 00:00: 00 Yes [id number] 75ug Take 1 tablet (75 mcg total) by mouth daily Melissa Griffin Externa darryn Sitagliptin Phosphate (Januvia) 50 MG oral Tablet 09-02 00:00: 00 Yes [id number] 50mg Take 1 tablet (50 mg total) by mouth daily Melissa Grant - Externa darryn Levothyroxi ne Sodium 75 MCG oral Tablet 09-02 00:00: 00 Yes [id number] 75ug Take 1 tablet (75 mcg total) by mouth daily Melissa Griffin Externa darryn Sitagliptin Phosphate (Januvia) 50 MG oral Tablet 09-02 00:00: 00 Yes [id number] 50mg Take 1 tablet (50 mg total) by mouth daily Melissa Grant - Externa darryn Levothyroxi ne Sodium 75 MCG oral Tablet 09-02 00:00: 00 Yes [id number] 75ug Take 1 tablet (75 mcg total) by mouth daily Melissa Griffin Externa darryn Sitagliptin Phosphate (Januvia) 50 MG oral Tablet 09-02 00:00: 00 Yes [id number] 50mg Take 1 tablet (50 mg total) by mouth daily Melissa Griffin Externa darryn Levothyroxi ne Sodium 75 MCG oral Tablet 09-02 00:00: 00 Yes [id number] 75ug Take 1 tablet (75 mcg total) by mouth daily Melissa Griffin Externa darryn Sitagliptin Phosphate (Januvia) 50 MG oral Tablet 09-02 00:00: 00 Yes [id number] 50mg Take 1 tablet (50 mg total) by mouth daily Melissa Grant - Externa darryn Levothyroxi ne Sodium 75 MCG oral Tablet 09-02 00:00: 00 Yes [id number] 75ug Take 1 tablet (75 mcg total) by mouth daily Melissa Griffin Externa darryn Sitagliptin Phosphate (Januvia) 50 MG oral Tablet 09-02 00:00: 00 Yes [id number] 50mg Take 1 tablet (50 mg total) by mouth daily Melissa cates Levothyroxi ne Sodium 75 MCG oral Tablet 09-02 00:00: 00 Yes [id number] 75ug Take 1 tablet (75 mcg total) by mouth daily Melissa cates Sitagliptin Phosphate (Januvia) 50 MG oral Tablet 09-02 00:00: 00 Yes [id number] 50mg Take 1 tablet (50 mg total) by mouth daily Melissa cates Lansoprazol e 30 MG oral Delayed Release Capsule 09-02 00:00: 00 11-11 00:00 :00 No [id number] 30mg Take 1 capsule (30 mg total) by mouth daily Melissa cates Aspirin 81 MG oral Tablet Delayed Response 08-27 12:55: 37 Yes Take 1 tablet every day by oral route. Melissa cates Sitagliptin Phosphate (Febuvia) 50 MG oral Tablet 08-27 00:00: 00 Yes [id number] 50mg Take 1 tablet (50 mg total) by mouth daily Melissa cates Lansoprazol e 30 MG oral Delayed Release Capsule 08-27 00:00: 00 Yes [id number] 30mg Take 1 capsule (30 mg total) by mouth daily Melissa cates Latanoprost 0.005 % ophthalmic Solution 07-28 00:00: 00 Yes [id number] 1[drp] Place 1 drop into both eyes nightly Melissa cates glipiZIDE 10 MG oral Tablet 07-28 00:00: 00 Yes [id number] 10mg Take 1 tablet (10 mg total) by mouth in the morning and 1 tablet (10 mg total) in the evening. Take before meals. Melissa cates Sitagliptin Phosphate (Febuvia) 50 MG oral Tablet 07-28 00:00: 00 Yes [id number] 50mg Take 1 tablet (50 mg total) by mouth daily Melissa cates Lansoprazol e 30 MG oral Delayed Release Capsule 07-28 00:00: 00 Yes [id number] 30mg Take 1 capsule (30 mg total) by mouth daily Melissa cates Latanoprost 0.005 % ophthalmic Solution 07-28 00:00: 00 Yes [id number] 1[drp] Place 1 drop into both eyes nightly Melissa cates glipiZIDE 10 MG oral Tablet 07-28 00:00: 00 Yes [id number] 10mg Take 1 tablet (10 mg total) by mouth in the morning and 1 tablet (10 mg total) in the evening. Take before meals. Melissa Quigleypawelmayra cates Sitagliptin Phosphate (Januvia) 50 MG oral Tablet 07-28 00:00: 00 Yes [id number] 50mg Take 1 tablet (50 mg total) by mouth daily Melissa cates Lansoprazol e 30 MG oral Delayed Release Capsule 07-28 00:00: 00 Yes [id number] 30mg Take 1 capsule (30 mg total) by mouth daily Melissa cates Latanoprost 0.005 % ophthalmic Solution 07-28 00:00: 00 Yes [id number] 1[drp] Place 1 drop into both eyes nightly Melissa cates glipiZIDE 10 MG oral Tablet 07-28 00:00: 00 Yes [id number] 10mg Take 1 tablet (10 mg total) by mouth in the morning and 1 tablet (10 mg total) in the evening. Take before meals. Melissa cates Latanoprost 0.005 % ophthalmic Solution 07-28 00:00: 00 Yes [id number] 1[drp] Place 1 drop into both eyes nightly Melissa cates glipiZIDE 10 MG oral Tablet 07-28 00:00: 00 Yes [id number] 10mg Take 1 tablet (10 mg total) by mouth in the morning and 1 tablet (10 mg total) in the evening. Take before meals. Melissa cates glipiZIDE 10 MG oral Tablet 07-28 00:00: 00 Yes [id number] 10mg Take 1 tablet (10 mg total) by mouth in the morning and 1 tablet (10 mg total) in the evening. Take before meals. Melissa cates glipiZIDE 10 MG oral Tablet 07-28 00:00: 00 Yes [id number] 10mg Take 1 tablet (10 mg total) by mouth in the morning and 1 tablet (10 mg total) in the evening. Take before meals. Melissa cates glipiZIDE 10 MG oral Tablet 07-28 00:00: 00 Yes [id number] 10mg Take 1 tablet (10 mg total) by mouth in the morning and 1 tablet (10 mg total) in the evening. Take before meals. Melissa cates glipiZIDE 10 MG oral Tablet 07-28 00:00: 00 Yes [id number] 10mg Take 1 tablet (10 mg total) by mouth in the morning and 1 tablet (10 mg total) in the evening. Take before meals. Melissa cates glipiZIDE 10 MG oral Tablet 07-28 00:00: 00 Yes [id number] 10mg Take 1 tablet (10 mg total) by mouth in the morning and 1 tablet (10 mg total) in the evening. Take before meals. Melissa cates glipiZIDE 10 MG oral Tablet 07-28 00:00: 00 Yes [id number] 10mg Take 1 tablet (10 mg total) by mouth in the morning and 1 tablet (10 mg total) in the evening. Take before meals. Melissa cates glipiZIDE 10 MG oral Tablet 07-28 00:00: 00 Yes [id number] 10mg Take 1 tablet (10 mg total) by mouth in the morning and 1 tablet (10 mg total) in the evening. Take before meals. Melissa cates glipiZIDE 10 MG oral Tablet 07-28 00:00: 00 Yes [id number] 10mg Take 1 tablet (10 mg total) by mouth in the morning and 1 tablet (10 mg total) in the evening. Take before meals. Melissa cates glipiZIDE 10 MG oral Tablet 07-28 00:00: 00 Yes [id number] 10mg Take 1 tablet (10 mg total) by mouth in the morning and 1 tablet (10 mg total) in the evening. Take before meals. Melissa cates glipiZIDE 10 MG oral Tablet 07-28 00:00: 00 Yes [id number] 10mg Take 1 tablet (10 mg total) by mouth in the morning and 1 tablet (10 mg total) in the evening. Take before meals. Melissa cates glipiZIDE 10 MG oral Tablet 07-28 00:00: 00 Yes [id number] 10mg Take 1 tablet (10 mg total) by mouth in the morning and 1 tablet (10 mg total) in the evening. Take before meals. Melissa cates Sitagliptin Phosphate (Januvia) 50 MG oral Tablet 07-28 00:00: 00 08-27 00:00 :00 No [id number] 50mg Take 1 tablet (50 mg total) by mouth daily Melissa caets Lansoprazol e 30 MG oral Delayed Release Capsule 07-28 00:00: 00 08-27 00:00 :00 No [id number] 30mg Take 1 capsule (30 mg total) by mouth daily Melissa cates Atorvastati n Calcium (Lipitor) 10 MG oral Tablet 07-10 00:00: 00 Yes [id number] 3 10mg Take 1 tablet (10 mg total) by mouth nightly Melissa cates Atorvastati n Calcium (Lipitor) 10 MG oral Tablet 07-10 00:00: 00 Yes [id number] 3 10mg Take 1 tablet (10 mg total) by mouth nightly Melissa cates Atorvastati n Calcium (Lipitor) 10 MG oral Tablet 07-10 00:00: 00 Yes [id number] 3 10mg Take 1 tablet (10 mg total) by mouth nightly Melissa cates Atorvastati n Calcium (Lipitor) 10 MG oral Tablet 07-10 00:00: 00 Yes [id number] 3 10mg Take 1 tablet (10 mg total) by mouth nightly Melissa cates Atorvastati n Calcium (Lipitor) 10 MG oral Tablet 07-10 00:00: 00 Yes [id number] 3 10mg Take 1 tablet (10 mg total) by mouth nightly Melissa cates Bilateral: Bevacizumab (AVASTIN) [100 mg/4 mL], 2.5mg - Physician Administere d ([id number]) 06-29 19:30: 00 06-29 19:28 :00 No [id number] 101 2.5mg Melissa cates Bilateral: Bevacizumab (AVASTIN) [100 mg/4 mL], 2.5mg - Physician Administere d ([id number]) 06-29 19:30: 00 06-29 19:28 :00 No [id number] 101 2.5mg 2.5 mg, Physician Administer ed, [...] Tablet Delayed Response 06-24 00:00: 00 Yes [id number] 40mg Take 1 tablet (40 mg total) by mouth daily Melissa cates Carvedilol (Coreg) 3.125 MG oral Tablet 06-24 00:00: 00 Yes [id number] 3.125mg Take 1 tablet (3.125 mg total) by mouth in the morning and 1 tablet (3.125 mg total) in the evening. Take with meals. Melissa cates Pantoprazol e Sodium 40 MG oral Tablet Delayed Response 06-24 00:00: 00 Yes [id number] 40mg Take 1 tablet (40 mg total) by mouth daily Melissa Quigleypawelmayra Elias Prudencio darryn Levothyroxi ne Sodium 75 MCG oral Tablet 06-24 00:00: 00 Yes [id number] 75ug Take 1 tablet (75 mcg total) by mouth daily Melissa Quigleypawelmayra Flannery darryn Latanoprost 0.005 % ophthalmic Solution 06-24 00:00: 00 Yes [id number] 1[drp] Place 1 drop into both eyes nightly Melissa Quigleypawelmayra Elias Uribeyudi darryn Carvedilol (Coreg) 3.125 MG oral Tablet 06-24 00:00: 00 Yes [id number] 3.125mg Take 1 tablet (3.125 mg total) by mouth in the morning and 1 tablet (3.125 mg total) in the evening. Take with meals. Melissa Quigleypawelmayra Elias Uribeyudi darryn Pantoprazol e Sodium 40 MG oral Tablet Delayed Response 06-24 00:00: 00 Yes [id number] 40mg Take 1 tablet (40 mg total) by mouth daily Melissa Sepawelmayra Elias Prudencio darryn Levothyroxi ne Sodium 75 MCG oral Tablet 06-24 00:00: 00 Yes [id number] 75ug Take 1 tablet (75 mcg total) by mouth daily Melissa Sepawelmayra Elias Prudencio darryn Latanoprost 0.005 % ophthalmic Solution 06-24 00:00: 00 Yes [id number] 1[drp] Place 1 drop into both eyes nightly Melissa Sepawelmayra Elias Uribeyudi darryn Carvedilol (Coreg) 3.125 MG oral Tablet 06-24 00:00: 00 Yes [id number] 3.125mg Take 1 tablet (3.125 mg total) by mouth in the morning and 1 tablet (3.125 mg total) in the evening. Take with meals. Melissa Quigleypawelmayra Elias Prudencio darryn Levothyroxi ne Sodium 75 MCG oral Tablet 06-24 00:00: 00 Yes [id number] 75ug Take 1 tablet (75 mcg total) by mouth daily Melissa Sepawelmayra Elias cates Carvedilol (Coreg) 3.125 MG oral Tablet 06-24 00:00: 00 Yes [id number] 3.125mg Take 1 tablet (3.125 mg total) by mouth in the morning and 1 tablet (3.125 mg total) in the evening. Take with meals. Melissa cates Levothyroxi ne Sodium 75 MCG oral Tablet 06-24 00:00: 00 Yes [id number] 75ug Take 1 tablet (75 mcg total) by mouth daily Melissa cates Carvedilol (Coreg) 3.125 MG oral Tablet 06-24 00:00: 00 Yes [id number] 3.125mg Take 1 tablet (3.125 mg total) by mouth in the morning and 1 tablet (3.125 mg total) in the evening. Take with meals. Melissa cates Levothyroxi ne Sodium 75 MCG oral Tablet 06-24 00:00: 00 Yes [id number] 75ug Take 1 tablet (75 mcg total) by mouth daily Melissa cates Carvedilol (Coreg) 3.125 MG oral Tablet 06-24 00:00: 00 Yes [id number] 3.125mg Take 1 tablet (3.125 mg total) by mouth in the morning and 1 tablet (3.125 mg total) in the evening. Take with meals. Melissa cates Carvedilol (Coreg) 3.125 MG oral Tablet 06-24 00:00: 00 Yes [id number] 3.125mg Take 1 tablet (3.125 mg total) by mouth in the morning and 1 tablet (3.125 mg total) in the evening. Take with meals. Melissa cates Carvedilol (Coreg) 3.125 MG oral Tablet 06-24 00:00: 00 Yes [id number] 3.125mg Take 1 tablet (3.125 mg total) by mouth in the morning and 1 tablet (3.125 mg total) in the evening. Take with meals. Melissa cates Carvedilol (Coreg) 3.125 MG oral Tablet 06-24 00:00: 00 Yes [id number] 3.125mg Take 1 tablet (3.125 mg total) by mouth in the morning and 1 tablet (3.125 mg total) in the evening. Take with meals. Melissa cates Carvedilol (Coreg) 3.125 MG oral Tablet 2022-0 17 00:00: 00 Yes [id number] 3.125mg Take 1 tablet (3.125 mg total) by mouth in the morning and 1 tablet (3.125 mg total) in the evening. Take with meals. Melissa Grant - Externa darryn Carvedilol (Coreg) 3.125 MG oral Tablet 2022-0 17 00:00: 00 Yes [id number] 3.125mg Take 1 tablet (3.125 mg total) by mouth in the morning and 1 tablet (3.125 mg total) in the evening. Take with meals. Melissa Grant - Externa darryn Carvedilol (Coreg) 3.125 MG oral Tablet 2022-0 17 00:00: 00 Yes [id number] 3.125mg Take 1 tablet (3.125 mg total) by mouth in the morning and 1 tablet (3.125 mg total) in the evening. Take with meals. Melissa cates Carvedilol (Coreg) 3.125 MG oral Tablet 2022-0 17 00:00: 00 Yes [id number] 3.125mg Take 1 tablet (3.125 mg total) by mouth in the morning and 1 tablet (3.125 mg total) in the evening. Take with meals. Melissa Grant - Externa darryn Carvedilol (Coreg) 3.125 MG oral Tablet 2022-0 17 00:00: 00 Yes [id number] 3.125mg Take 1 tablet (3.125 mg total) by mouth in the morning and 1 tablet (3.125 mg total) in the evening. Take with meals. Melissa Grant - Externa l Carvedilol (Coreg) 3.125 MG oral Tablet 2022-0 17 00:00: 00 Yes [id number] 3.125mg Take 1 tablet (3.125 mg total) by mouth in the morning and 1 tablet (3.125 mg total) in the evening. Take with meals. Melissa Quigleyybold - Externa l Carvedilol (Coreg) 3.125 MG oral Tablet 2022-0 -17 00:00: 00 Yes [id number] 3.125mg Take 1 tablet (3.125 mg total) by mouth in the morning and 1 tablet (3.125 mg total) in the evening. Take with meals. Melissa cates Carvedilol (Coreg) 3.125 MG oral Tablet 06-24 00:00: 00 Yes [id number] 3.125mg Take 1 tablet (3.125 mg total) by mouth in the morning and 1 tablet (3.125 mg total) in the evening. Take with meals. Melissa cates Carvedilol (Coreg) 3.125 MG oral Tablet 06-24 00:00: 00 11-11 00:00 :00 No [id number] 3.125mg Take 1 tablet (3.125 mg total) by mouth in the morning and 1 tablet (3.125 mg total) in the evening. Take with meals. Melissa cates Iron Sucrose (VENOFER) 300 mg in sodium chloride 0.9 % 250 mL infusion 06-22 17:15: 00 06-22 18:20 :00 No [id number] 300mg 300 mg, at 166.7 mL/hr, Administer [...] GM/177ML oral Solution 06-19 00:00: 00 Yes [id number] Instructio ns provided to patient. Follow instructio ns provided by provider. Melissa cates Na Sulfate-K Sulfate-Mg Sulf (SUPREP BOWEL PREP KIT) 17.5-3.13-1 .6 GM/177ML oral Solution 2022-0 12 00:00: 00 Yes [id number] Instructio ns provided to patient. Follow instructio ns provided by provider. Melissa Flannery l Na Sulfate-K Sulfate-Mg Sulf (SUPREP BOWEL PREP KIT) 17.5-3.13-1 .6 GM/177ML oral Solution 2022-0 12 00:00: 00 Yes [id number] Instructio ns provided to patient. Follow instructio ns provided by provider. Melissa Flannery l Na Sulfate-K Sulfate-Mg Sulf (SUPREP BOWEL PREP KIT) 17.5-3.13-1 .6 GM/177ML oral Solution 2022-0 12 00:00: 00 Yes [id number] Instructio ns provided to patient. Follow instructio ns provided by provider. Melissa cates Na Sulfate-K Sulfate-Mg Sulf (SUPREP BOWEL PREP KIT) 17.5-3.13-1 .6 GM/177ML oral Solution 2022-0 12 00:00: 00 Yes [id number] Instructio ns provided to patient. Follow instructio ns provided by provider. Melissa cates Na Sulfate-K Sulfate-Mg Sulf (SUPREP BOWEL PREP KIT) 17.5-3.13-1 .6 GM/177ML oral Solution 2022-0 12 00:00: 00 Yes [id number] Instructio ns provided to patient. Follow instructio ns provided by provider. Melissa cates Na Sulfate-K Sulfate-Mg Sulf (SUPREP BOWEL PREP KIT) 17.5-3.13-1 .6 GM/177ML oral Solution 2022-0 12 00:00: 00 Yes [id number] Instructio ns provided to patient. Follow instructio ns provided by provider. Melissa Flannery l Na Sulfate-K Sulfate-Mg Sulf (SUPREP BOWEL PREP KIT) 17.5-3.13-1 .6 GM/177ML oral Solution 2022-0 12 00:00: 00 Yes [id number] Instructio ns provided to patient. Follow instructio ns provided by provider. Melissa Uribea l Na Sulfate-K Sulfate-Mg Sulf (SUPREP BOWEL PREP KIT) 17.5-3.13-1 .6 GM/177ML oral Solution 3-0 -12 00:00: 00 Yes [id number] Instructio ns provided to patient. Follow instructio ns provided by provider. Melissa cates Na Sulfate-K Sulfate-Mg Sulf (SUPREP BOWEL PREP KIT) 17.5-3.13-1 .6 GM/177ML oral Solution 3-0 12 00:00: 00 Yes [id number] Instructio ns provided to patient. Follow instructio ns provided by provider. Melissa cates Na Sulfate-K Sulfate-Mg Sulf (SUPREP BOWEL PREP KIT) 17.5-3.13-1 .6 GM/177ML oral Solution 2022-0 12 00:00: 00 Yes [id number] Instructio ns provided to patient. Follow instructio ns provided by provider. Melissa cates Na Sulfate-K Sulfate-Mg Sulf (SUPREP BOWEL PREP KIT) 17.5-3.13-1 .6 GM/177ML oral Solution 2022-0 12 00:00: 00 Yes [id number] Instructio ns provided to patient. Follow instructio ns provided by provider. Melissa cates Na Sulfate-K Sulfate-Mg Sulf (SUPREP BOWEL PREP KIT) 17.5-3.13-1 .6 GM/177ML oral Solution 2022-0 12 00:00: 00 Yes [id number] Instructio ns provided to patient. Follow instructio ns provided by provider. Melissa cates Na Sulfate-K Sulfate-Mg Sulf (SUPREP BOWEL PREP KIT) 17.5-3.13-1 .6 GM/177ML oral Solution 3-0 12 00:00: 00 Yes [id number] Instructio ns provided to patient. Follow instructio ns provided by provider. Melissa Flannery l Na Sulfate-K Sulfate-Mg Sulf (SUPREP BOWEL PREP KIT) 17.5-3.13-1 .6 GM/177ML oral Solution 3-0 -12 00:00: 00 Yes [id number] Instructio ns provided to patient. Follow instructio ns provided by provider. Melissa Quigleypawelmayra Flannery l Na Sulfate-K Sulfate-Mg Sulf (SUPREP BOWEL PREP KIT) 17.5-3.13-1 .6 GM/177ML oral Solution 06-19 00:00: 00 Yes [id number] Instructio ns provided to patient. Follow instructio ns provided by provider. Melissa cates Na Sulfate-K Sulfate-Mg Sulf (SUPREP BOWEL PREP KIT) 17.5-3.13-1 .6 GM/177ML oral Solution 06-19 00:00: 00 Yes [id number] Instructio ns provided to patient. Follow instructio ns provided by provider. Melissa cates Na Sulfate-K Sulfate-Mg Sulf (SUPREP BOWEL PREP KIT) 17.5-3.13-1 .6 GM/177ML oral Solution 06-19 00:00: 00 Yes [id number] Instructio ns provided to patient. Follow instructio ns provided by provider. Melissa cates Na Sulfate-K Sulfate-Mg Sulf (SUPREP BOWEL PREP KIT) 17.5-3.13-1 .6 GM/177ML oral Solution 06-19 00:00: 00 11-05 00:00 :00 No [id number] Instructio ns provided to patient. Follow instructio ns provided by provider. Melissa Quigleyrobbie - Externa l Latanoprost 0.005 % ophthalmic Solution 06-17 00:00: 00 Yes [id number] 1[drp] Place 1 drop into both eyes nightly Melissa Quigleypawelmayra - Externa l Latanoprost 0.005 % ophthalmic Solution 06-17 00:00: 00 Yes [id number] 1[drp] Place 1 drop into both eyes nightly Melissa Seybold - Externa l Latanoprost 0.005 % ophthalmic Solution 06-17 00:00: 00 Yes [id number] 1[drp] Place 1 drop into both eyes nightly Melissa Seybold - Externa l Latanoprost 0.005 % ophthalmic Solution 06-17 00:00: 00 Yes [id number] 1[drp] Place 1 drop into both eyes nightly Melissa Beatriceold - Externa l Iron Sucrose (VENOFER) 300 mg in sodium chloride 0.9 % 250 mL infusion 06-09 17:15: 00 06-09 18:50 :00 No [id number] 300mg 300 mg, at 166.7 mL/hr, Administer [...] 05-26 16:45: 00 05-26 18:06 :00 No [id number] 300mg 300 mg, at 166.7 mL/hr, Administer over 90 Minutes, intravenou s, ONCE, On Wed05/26/22 at 1145, For 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 &nbs p;May repeat treatment if clinically indicated< br> Melissa Grant - Jojoa l Multiple Vitamins-Ir on (MULTIVITAM IN PLUS IRON ADULT OR) 05-12 10:53: 52 Yes 1{tbl} Take 1 tablet by mouth daily Melissa Uribea darryn Multiple Vitamins-Ir on (MULTIVITAM IN PLUS IRON ADULT OR) 05-12 10:53: 52 Yes 1{tbl} Take 1 tablet by mouth daily Melissa Seybold - Externa l Latanoprost 0.005 % ophthalmic Solution 0 05-12 00:00: 00 Yes [id number] 1[drp] Place 1 drop into both eyes nightly Melissa Barronold - Externa l Latanoprost 0.005 % ophthalmic Solution 0 05-12 00:00: 00 Yes [id number] 1[drp] Place 1 drop into both eyes nightly Melissa Barronold - Externa l Multiple Vitamins-Ir on (MULTIVITAM IN PLUS IRON ADULT OR) 05-11 14:21: 53 Yes 1{tbl} Take 1 tablet by mouth daily Melissa Sepawelold - Externa l Januvia 50 MG oral Tablet 0 05-10 00:00: 00 Yes [id number] TAKE 1 TABLET BY MOUTH EVERY DAY Melissa Sepawelold - Externa l Januvia 50 MG oral Tablet 0 05-10 00:00: 00 Yes [id number] TAKE 1 TABLET BY MOUTH EVERY DAY Melissa Seybold - Externa l Januvia 50 MG oral Tablet 0 05-10 00:00: 00 Yes [id number] TAKE 1 TABLET BY MOUTH EVERY DAY Melissa Seybold - Externa l Januvia 50 MG oral Tablet 0 05-10 00:00: 00 Yes [id number] TAKE 1 TABLET BY MOUTH EVERY DAY Melissa Seybold - Externa l Januvia 50 MG oral Tablet 0 05-10 00:00: 00 Yes [id number] TAKE 1 TABLET BY MOUTH EVERY DAY Melissa Seybold - Externa l Januvia 50 MG oral Tablet 0 05-10 00:00: 00 Yes [id number] TAKE 1 TABLET BY MOUTH EVERY DAY Melissa Seybold - Externa l Januvia 50 MG oral Tablet 2022-0 05-10 00:00: 00 Yes [id number] TAKE 1 TABLET BY MOUTH EVERY DAY Melissa Seybold - Externa l Januvia 50 MG oral Tablet 0 05-10 00:00: 00 Yes [id number] TAKE 1 TABLET BY MOUTH EVERY DAY Melissa Seybold - Externa l Januvia 50 MG oral Tablet 0 05-10 00:00: 00 Yes [id number] TAKE 1 TABLET BY MOUTH EVERY DAY Melissa cates Multiple Vitamins-Ir on (MULTIVITAM IN PLUS IRON ADULT OR) 05-08 10:04: 06 Yes 1{tbl} Take 1 tablet by mouth daily Melissa cates Rosuvastati n Calcium 40 MG oral Tablet 05-08 00:00: 00 Yes [id number] 3 40mg Take 1 tablet (40 mg total) by mouth at bedtime Melissa cates glipiZIDE 10 MG oral Tablet 05-08 00:00: 00 Yes [id number] 10mg Take 1 tablet (10 mg total) by mouth in the morning and 1 tablet (10 mg total) in the evening. Take before meals. Melissa cates Sitagliptin Phosphate 50 MG oral Tablet 05-08 00:00: 00 Yes [id number] 50mg Take 1 tablet (50 mg total) by mouth daily Melissa cates Rosuvastati n Calcium 40 MG oral Tablet 05-08 00:00: 00 Yes [id number] 3 40mg Take 1 tablet (40 mg total) by mouth at bedtime Melissa cates glipiZIDE 10 MG oral Tablet 05-08 00:00: 00 Yes [id number] 10mg Take 1 tablet (10 mg total) by mouth in the morning and 1 tablet (10 mg total) in the evening. Take before meals. Melissa cates Rosuvastati n Calcium 40 MG oral Tablet 05-08 00:00: 00 Yes [id number] 3 40mg Take 1 tablet (40 mg total) by mouth at bedtime Melissa cates glipiZIDE 10 MG oral Tablet 05-08 00:00: 00 Yes [id number] 10mg Take 1 tablet (10 mg total) by mouth in the morning and 1 tablet (10 mg total) in the evening. Take before meals. Melissa cates Rosuvastati n Calcium 40 MG oral Tablet 05-08 00:00: 00 Yes [id number] 3 40mg Take 1 tablet (40 mg total) by mouth at bedtime Melissa cates glipiZIDE 10 MG oral Tablet 05-08 00:00: 00 Yes [id number] 10mg Take 1 tablet (10 mg total) by mouth in the morning and 1 tablet (10 mg total) in the evening. Take before meals. Melissa cates Rosuvastati n Calcium 40 MG oral Tablet 05-08 00:00: 00 Yes [id number] 3 40mg Take 1 tablet (40 mg total) by mouth at bedtime Melissa cates glipiZIDE 10 MG oral Tablet 05-08 00:00: 00 Yes [id number] 10mg Take 1 tablet (10 mg total) by mouth in the morning and 1 tablet (10 mg total) in the evening. Take before meals. Melissa cates Rosuvastati n Calcium 40 MG oral Tablet 05-08 00:00: 00 Yes [id number] 3 40mg Take 1 tablet (40 mg total) by mouth at bedtime Melissa cates glipiZIDE 10 MG oral Tablet 05-08 00:00: 00 Yes [id number] 10mg Take 1 tablet (10 mg total) by mouth in the morning and 1 tablet (10 mg total) in the evening. Take before meals. Melissa cates Rosuvastati n Calcium 40 MG oral Tablet 05-08 00:00: 00 Yes [id number] 3 40mg Take 1 tablet (40 mg total) by mouth at bedtime Melissa cates glipiZIDE 10 MG oral Tablet 05-08 00:00: 00 Yes [id number] 10mg Take 1 tablet (10 mg total) by mouth in the morning and 1 tablet (10 mg total) in the evening. Take before meals. Melissa cates glipiZIDE 10 MG oral Tablet 05-08 00:00: 00 Yes [id number] 10mg Take 1 tablet (10 mg total) by mouth in the morning and 1 tablet (10 mg total) in the evening. Take before meals. Melissa cates glipiZIDE 10 MG oral Tablet 05-08 00:00: 00 Yes [id number] 10mg Take 1 tablet (10 mg total) by mouth in the morning and 1 tablet (10 mg total) in the evening. Take before meals. Melissa cates glipiZIDE 10 MG oral Tablet 05-08 00:00: 00 Yes [id number] 10mg Take 1 tablet (10 mg total) by mouth in the morning and 1 tablet (10 mg total) in the evening. Take before meals. Melissa cates Rosuvastati n Calcium 40 MG oral Tablet 05-08 00:00: 00 06-24 00:00 :00 No [id number] 3 40mg Take 1 tablet (40 mg total) by mouth at bedtime Melissa cates Levothyroxi ne Sodium 75 MCG oral Tablet 05-05 00:00: 00 Yes [id number] 75ug Take 1 tablet (75 mcg total) by mouth daily Melissa cates Levothyroxi ne Sodium 75 MCG oral Tablet 05-05 00:00: 00 Yes [id number] 75ug Take 1 tablet (75 mcg total) by mouth daily Melissa cates Levothyroxi ne Sodium 75 MCG oral Tablet 05-05 00:00: 00 Yes [id number] 75ug Take 1 tablet (75 mcg total) by mouth daily Melissa cates Levothyroxi ne Sodium 75 MCG oral Tablet 05-05 00:00: 00 Yes [id number] 75ug Take 1 tablet (75 mcg total) by mouth daily Melissa cates Levothyroxi ne Sodium 75 MCG oral Tablet 05-05 00:00: 00 Yes [id number] 75ug Take 1 tablet (75 mcg total) by mouth daily Melissa cates Levothyroxi ne Sodium 75 MCG oral Tablet 05-05 00:00: 00 Yes [id number] 75ug Take 1 tablet (75 mcg total) by mouth daily Melissa cates Levothyroxi ne Sodium 75 MCG oral Tablet 05-05 00:00: 00 Yes [id number] 75ug Take 1 tablet (75 mcg total) by mouth daily Melissa cates Levothyroxi ne Sodium 75 MCG oral Tablet 05-05 00:00: 00 Yes [id number] 75ug Take 1 tablet (75 mcg total) by mouth daily Melissa cates Levothyroxi ne Sodium 75 MCG oral Tablet 05-05 00:00: 00 Yes [id number] 75ug Take 1 tablet (75 mcg total) by mouth daily Melissa cates Furosemide (LASIX) 20 MG oral Tablet 05-01 13:46: 05-01 00:00 :00 No 20mg Take 20 mg by mouth daily Melissa cates glipiZIDE 10 MG oral Tablet 05-01 13:46: 05-01 00:00 :00 No 10mg Take 10 mg by mouth daily (before a meal) Melissa cates glipiZIDE 10 MG oral Tablet 05-01 00:00: 00 Yes [id number] 3 10mg Take 1 tablet (10 mg total) by mouth daily (before a meal) Melissa cates Sitagliptin Phosphate 100 MG oral Tablet 05-01 00:00: 00 Yes [id number] 3 100mg Take 1 tablet (100 mg total) by mouth daily Melissa cates Furosemide (LASIX) 20 MG oral Tablet 05-01 00:00: 00 Yes [id number] 40mg Take 2 tablets (40 mg total) by mouth daily Melissa cates glipiZIDE 10 MG oral Tablet 05-01 00:00: 00 Yes [id number] 3 10mg Take 1 tablet (10 mg total) by mouth daily (before a meal) Melissa cates Sitagliptin Phosphate 100 MG oral Tablet 05-01 00:00: 00 Yes [id number] 3 100mg Take 1 tablet (100 mg total) by mouth daily Melissa cates Furosemide (LASIX) 20 MG oral Tablet 05-01 00:00: 00 Yes [id number] 40mg Take 2 tablets (40 mg total) by mouth daily Melissa cates glipiZIDE 10 MG oral Tablet 05-01 00:00: 00 05-08 00:00 :00 No [id number] 3 10mg Take 1 tablet (10 mg total) by mouth daily (before a meal) Melissa cates Sitagliptin Phosphate 100 MG oral Tablet 05-01 00:00: 05-08 00:00 :00 No [id number] 3 100mg Take 1 tablet (100 mg total) by mouth daily Melissa cates Furosemide (LASIX) 20 MG oral Tablet 05-01 00:00: 00 05-08 00:00 :00 No [id number] 40mg Take 2 tablets (40 mg total) by mouth daily Melissa cates Pantoprazol e Sodium 40 MG oral Tablet Delayed Response 0 3-05 00:00: 00 Yes 40mg Take 40 mg by mouth daily Melissa cates Pantoprazol e Sodium 40 MG oral Tablet Delayed Response 0 3-05 00:00: 00 Yes 40mg Take 40 [...] 0 3-05 00:00: 00 Yes 40mg Take 40 mg by mouth daily Melissa cates Pantoprazol e Sodium 40 MG oral Tablet Delayed Response 0 3-05 00:00: 00 05-12 00:00 :00 No 40mg Take 1 tablet (40 mg total) by mouth daily Melissa cates Ferrous Sulfate (Iron) 325 (65 Fe) MG oral Tablet 04-09 00:00: 00 Yes [id number] 325mg Take 1 tablet (325 mg total) by mouth 2 times daily Melissa cates Ferrous Sulfate (Iron) 325 (65 Fe) MG oral Tablet 04-09 00:00: 00 Yes [id number] 325mg Take 1 tablet (325 mg total) by mouth 2 times daily Melissa cates Ferrous Sulfate (Iron) 325 (65 Fe) MG oral Tablet 04-09 00:00: 00 Yes [id number] 325mg Take 1 tablet (325 mg total) by mouth 2 times daily Melissa cates Ferrous Sulfate (Iron) 325 (65 Fe) MG oral Tablet 04-09 00:00: 00 05-08 00:00 :00 No [id number] 325mg Take 1 tablet (325 mg total) by mouth 2 times daily Melissa cates Levothyroxi ne Sodium 50 MCG oral Tablet 04-07 00:00: 00 Yes [id number] 50ug Take 1 tablet (50 mcg total) by mouth daily Melissa cates Levothyroxi ne Sodium 50 MCG oral Tablet 04-07 00:00: 00 Yes [id number] 50ug Take 1 tablet (50 mcg total) [...] Tablet Delayed Response 04-03 00:00: 00 Yes [id number] 81mg Take 1 tablet (81 mg total) by mouth daily Melissa cates Aspirin (Aspirin 81) 81 MG oral Tablet Delayed Response 0 04-03 00:00: 00 Yes [id number] 81mg Take 1 tablet (81 mg total) by mouth daily Melissa cates Aspirin (Aspirin 81) 81 MG oral Tablet Delayed Response 04-03 00:00: 00 Yes [id number] 81mg Take 1 tablet (81 mg total) by mouth daily Melissa cates Aspirin (Aspirin 81) 81 MG oral Tablet Delayed Response 04-03 00:00: 00 Yes [id number] 81mg Take 1 tablet (81 mg total) by mouth daily Melissa cates Aspirin (Aspirin 81) 81 MG oral Tablet Delayed Response 04-03 00:00: 00 05-08 00:00 :00 No [id number] 81mg Take 1 tablet (81 mg total) by mouth daily Melissa cates SITagliptin (JANUVIA) 100 mg tablet 09-30 16:27: 53 09-30 00:00 :00 No 100mg Take 100 mg by mouth in the morning. [facility] glipiZIDE XL (GLUCOTROL XL) 10 mg 24 hr tablet 09-30 16:27: 53 09-30 00:00 :00 No 10mg Take 10 mg by mouth in the morning and 10 mg in the evening. [facility] rosuvastati n 20 mg tablet 09-30 16:17: 42 09-30 00:00 :00 No 20mg Take 20 mg by mouth at bedtime. [facility] lisinopriL 5 mg tablet 09-30 16:17: 29 09-30 00:00 :00 No 5mg Take 5 mg by mouth in the morning. [facility] furosemide 20 mg tablet 09-30 15:17: 03 Yes 20mg Take 20 mg by mouth in the morning. [facility] esomeprazol e (NEXIUM) 20 mg capsule 09-30 15:17: 03 Yes 20mg Take 20 mg by mouth daily before a meal. [facility] LO ASPIRIN ORAL 09-30 15:17: 03 Yes Take by mouth. [facility] furosemide 20 mg tablet 09-30 15:17: 03 Yes 20mg Take 20 mg by mouth in the morning. [facility] esomeprazol e (NEXIUM) 20 mg capsule 09-30 15:17: 03 Yes 20mg Take 20 mg by mouth daily before a meal. [facility] LO ASPIRIN ORAL 09-30 15:17: 03 Yes Take by mouth. [facility] furosemide 20 mg tablet 09-30 15:17: 03 Yes 20mg Take 20 mg by mouth in the morning. [facility] esomeprazol e (NEXIUM) 20 mg capsule 09-30 15:17: 03 Yes 20mg Take 20 mg by mouth daily before a meal. [facility] OL ASPIRIN ORAL 09-30 15:17: 03 Yes Take by mouth. [facility] Lisinopril 5 MG oral Tablet [...] 40 mg by mouth at bedtime Melissa Quigleypawelmayra Flannery darryn Sitagliptin Phosphate 100 MG oral Tablet 09-30 00:00: 00 Yes 100mg Take 100 mg by mouth daily Melissa Quigleypawelmayra Griffin Jojoyudi darryn Lisinopril 5 MG oral Tablet 09-30 00:00: 00 Yes 5mg Take 5 mg by mouth daily Melissa Quigleyrobbie Elias Flannery darryn Rosuvastati n Calcium 20 MG oral Tablet 09-30 00:00: 00 Yes 40mg Take 40 mg by mouth at bedtime Melissa Quigleypawelmayra Flannery darryn Lisinopril 5 MG oral Tablet 09-30 00:00: 00 Yes 5mg Take 5 mg by mouth daily Melissa Quigleyrobbie Elias Flannery darryn Rosuvastati n Calcium 20 MG oral Tablet 09-30 00:00: 00 Yes 40mg Take 40 mg by mouth at bedtime Melissa Quigleypawelmayra Flannery darryn lisinopriL 5 mg tablet 09-30 00:00: 00 Yes [id number] 5mg Take 1 tablet by mouth in the morning. [facility] gabapentin 300 mg capsule 09-30 00:00: 00 Yes [id number] 300mg Take 1 capsule by mouth in the morning and 1 capsule at noon and 1 capsule in the evening. [facility] rosuvastati n 20 mg tablet 09-30 00:00: 00 Yes [id number] 20mg Take 1 tablet by mouth at bedtime. [facility] amitriptyli ne 25 mg tablet 09-30 00:00: 00 Yes [id number] 25mg Take 1 tablet by mouth at bedtime. [facility] SITagliptin (JANUVIA) 100 mg tablet 09-30 00:00: 00 Yes [id number] 100mg Take 1 tablet by mouth in the morning. [facility] lisinopriL 5 mg tablet 09-30 00:00: 00 Yes [id number] 5mg Take 1 tablet by mouth in the morning. [facility] gabapentin 300 mg capsule 09-30 00:00: 00 Yes [id number] 300mg Take 1 capsule by mouth in the morning and 1 capsule at noon and 1 capsule in the evening. [facility] rosuvastati n 20 mg tablet 09-30 00:00: 00 Yes [id number] 20mg Take 1 tablet by mouth at bedtime. [facility] amitriptyli ne 25 mg tablet 09-30 00:00: 00 Yes [id number] 25mg Take 1 tablet by mouth at bedtime. [facility] SITagliptin (JANUVIA) 100 mg tablet 09-30 00:00: 00 Yes [id number] 100mg Take 1 tablet by mouth in the morning. [facility] lisinopriL 5 mg tablet 09-30 00:00: 00 Yes [id number] 5mg Take 1 tablet by mouth in the morning. [facility] gabapentin 300 mg capsule 09-30 00:00: 00 Yes [id number] 300mg Take 1 capsule by mouth in the morning and 1 capsule at noon and 1 capsule in the evening. [facility] rosuvastati n 20 mg tablet 09-30 00:00: 00 Yes [id number] 20mg Take 1 tablet by mouth at bedtime. [facility] SITagliptin (JANUVIA) 100 mg tablet 09-30 00:00: 00 Yes [id number] 100mg Take 1 tablet by mouth in the morning. [facility] amitriptyli ne 25 mg tablet 09-30 00:00: 00 02-24 00:00 :00 No [id number] 25mg Take 1 tablet by mouth at bedtime. [facility] Lisinopril 5 MG oral Tablet 09-30 00:00: 00 05-08 00:00 :00 No 5mg Take 5 mg by mouth daily Melissa Seybold - Externa l Rosuvastati n Calcium 20 MG oral Tablet 09-30 00:00: 00 05-08 00:00 :00 No 40mg Take 40 mg by mouth at bedtime Melissa cates Sitagliptin Phosphate 100 MG oral Tablet 09-30 00:00: 00 05-01 00:00 :00 No 100mg Take 100 mg by mouth daily Melissa cates glipiZIDE XL (GLUCOTROL XL) 10 mg 24 hr tablet 09-30 00:00: 00 03-30 05:59 :00 No [id number] 10mg Take 1 tablet by mouth in the morning and 1 tablet in the evening. Do all this for 180 days. [facility] glipiZIDE XL (GLUCOTROL XL) 10 mg 24 hr tablet 09-30 00:00: 00 03-30 05:59 :00 No [id number] 10mg Take 1 tablet by mouth in the morning and 1 tablet in the evening. Do all this for 180 days. [facility] furosemide 20 mg tablet 0 6-16 00:00: 00 No 1mg furosemide 20 mg tablet 0 6-16 00:00: 00 No 1mg furosemide 20 mg tablet 0 5-03 00:00: 00 No 1mg furosemide 20 mg tablet 0 5-03 00:00: 00 No 1mg lisinopril 5 mg tablet 0 4-07 00:00: 00 No 1mg Januvia 100 mg tablet 0 4-07 00:00: 00 No 1mg glipizide ER 10 mg tablet, extended release 24 hr 0 4- 00:00: 00 No 1mg lisinopril 5 mg tablet 0 4-07 00:00: 00 No 1mg Januvia 100 mg tablet 0 4- 00:00: 00 No 1mg glipizide ER 10 mg tablet, extended release 24 hr 0 4- 00:00: 00 No 1mg Dose Unknown 4- 00:00: 00 No Dose Unknown 4-01 00:00: 00 No Dose Unknown 2022-0 [...] Dose Unknown 2022-0 4-01 00:00: 00 No ondansetron 4 mg disintegrat ing tablet 2022-0 3-01 00:00: 00 Yes [id number] 4mg Take 1 tablet by mouth every 8 (eight) hours as needed for Nausea and Vomiting (N/V). [facility] ondansetron 4 mg disintegrat ing tablet 2022-0 3-01 00:00: 00 Yes [id number] 4mg Take 1 tablet by mouth every 8 (eight) hours as needed for Nausea and Vomiting (N/V). [facility] ondansetron 4 mg disintegrat ing tablet 04-08 00:00: 00 Yes [id number] 4mg Take 1 tablet by mouth every 8 (eight) hours as needed for Nausea and Vomiting (N/V). [facility] lisinopril 5 mg tablet 2020-02 2 00:00: 00 No 1mg rosuvastati n 20 mg tablet 2020-02 00:00: 00 No 1mg furosemide 20 mg tablet 2020-02 00:00: 00 No 1mg lisinopril 5 mg tablet 2020-02 00:00: 00 No 1mg rosuvastati n 20 mg tablet 2020-02 00:00: 00 No 1mg furosemide 20 mg tablet 2020-02 2 00:00: 00 No 1mg Januvia 50 mg tablet 8 00:00: 00 No 1mg glipizide ER 10 mg tablet, extended release 24 hr 8 00:00: 00 No 1mg Dose Unknown 8 00:00: 00 No Macrobid 100 mg capsule 8 00:00: 00 No 1mg Januvia 50 mg tablet 8 00:00: 00 No 1mg glipizide ER 10 mg tablet, extended release 24 hr 8 00:00: 00 No 1mg Dose Unknown 8 00:00: 00 No Macrobid 100 mg capsule 8 00:00: 00 No 1mg Macrobid 100 mg capsule 6 00:00: 00 No 1mg Macrobid 100 mg capsule 6 00:00: 00 No 1mg ibuprofen 600 mg tablet 5-24 00:00: 00 No 1mg ibuprofen 600 mg tablet 524 00:00: 00 No 1mg glipizide 5 mg tablet 5- 00:00: 00 No 1mg Januvia 50 mg [...] 05-08 00:00: 00 09-30 00:00 :00 No [id number] 1{tbl} Take 1 tablet by mouth every 12 (twelve) hours. [facility] glipiZIDE 5 mg tablet 05-08 00:00: 00 09-30 00:00 :00 No [id number] 5mg Take 1 tablet by mouth daily. [facility] levothyroxi ne 25 mcg tablet [...] VACCINE MODERNA 6MONTHS-5YEARS 2021-01-22 00:00:00 Completed Melissa Grant - External COVID-19 VACCINE MODERNA 6MONTHS-5YEARS 2021-01-22 00:00:00 Completed Melissa Barronold - External COVID-19 VACCINE MODERNA 6MONTHS-5YEARS 2021-01-22 00:00:00 Completed Melissa Grant - External COVID-19 VACCINE MODERNA 6MONTHS-5YEARS 2021-01-22 00:00:00 [facility] VACCINE MODERNA 6MONTHS-5YEARS 2021-01-22 00:00:00 Completed Melissa Barronold - External Moderna COVID-19 Vaccine 2021-01-22 00:00:00 Completed Moderna COVID-19 Vaccine 2021-01-22 00:00:00 Completed Covid-19 Vaccine Moderna (Spikevax), Mrna-lnp, Isaiah Protein, Pf 2020-07-29 00:00:00 Completed Melissa Grant - External Covid-19 Vaccine Moderna (Spikevax), Mrna-lnp, Isaiah Protein, Pf 2020-07-29 00:00:00 Completed Melissa Grant - External Covid-19 Vaccine Moderna (Spikevax), Mrna-lnp, Isaiah Protein, Pf 2020-07-29 00:00:00 Completed Melissa Grant - External Covid-19 Vaccine [...] Protein, Pf 2020-07-29 00:00:[facility] Vaccine Moderna (Spikevax), Mrna-lnp, [...] Influenza Nasal, Unspecified Formulation 2017-11-27 00:00:00 Completed [facility] - External Influenza, Seasonal, Injectable, Preservative Free 2017-11-27 00:00:00 Completed [facility] - External Influenza Nasal, Unspecified Formulation 2017-11-27 00:00:00 Completed [facility] - External Covid-19 Vaccine Moderna (Spikevax), Mrna-lnp, Isaiah Protein, Pf [facility] VACCINE MODERNA 6MONTHS-5YEARS Unknown [facility] COVID-19 VACCINE MODERNA 6MONTHS-5YEARS Unknown [facility] - [facility] COVID-19 VACCINE MODERNA 6MONTHS-5YEARS Unknown Completed [facility] d - External Influenza Nasal, Unspecified Formulation Unknown Completed [facility] - External Covid-19 Vaccine Moderna (Spikevax), Mrna-lnp, Isaiah Protein, Pf Unknown Completed [facility] - External Covid-19 Vaccine Moderna (Spikevax), Mrna-lnp, Isaiah Protein, Pf Unknown Completed [facility] External Influenza, Seasonal, Injectable, Preservative Free Unknown Completed [facility] - External Covid-19 Vaccine Moderna (Spikevax), Mrna-lnp, Isaiah Protein, Pf Unknown Completed [facility] - External COVID-19 VACCINE MODERNA 6MONTHS-5YEARS Unknown Completed [facility] COVID-19 VACCINE MODERNA 6MONTHS-5YEARS Unknown Completed [facility] - External COVID-19 VACCINE MODERNA 6MONTHS-5YEARS Unknown Completed [facility] - External Influenza Nasal, Unspecified Formulation Unknown Completed [facility] - External Covid-19 Vaccine Moderna (Spikevax), Mrna-lnp, Isaiah Protein, Pf Unknown Completed [facility] - External Covid-19 Vaccine Moderna (Spikevax), Mrna-lnp, Isaiah Protein, Pf Unknown Completed [facility] - External Influenza, Seasonal, Injectable, Preservative Free Unknown Completed [facility] bold - External Covid-19 Vaccine Moderna (Spikevax), Mrna-lnp, Isaiah Protein, Pf Unknown Completed Melissa [facility] - External COVID-19 VACCINE MODERNA 6MONTHS-5YEARS Unknown Completed [facility] COVID-19 VACCINE MODERNA 6MONTHS-5YEARS Unknown Completed [facility] - External COVID-19 VACCINE MODERNA 6MONTHS-5YEARS Unknown Completed [facility] - External Influenza Nasal, Unspecified Formulation Unknown Completed [facility] - External Covid-19 Vaccine Moderna (Spikevax), Mrna-lnp, Isaiah Protein, Pf Unknown Completed [facility] - External Covid-19 Vaccine Moderna (Spikevax), Mrna-lnp, Isaiah Protein, Pf Unknown Completed [facility] - External Influenza, Seasonal, Injectable, Preservative Free Unknown Completed [facility] - External Covid-19 Vaccine Moderna (Spikevax), Mrna-lnp, Isaiah Protein, Pf Unknown Completed [facility] - External COVID-19 VACCINE MODERNA 6MONTHS-5YEARS Unknown Completed [facility] d - External COVID-19 VACCINE MODERNA 6MONTHS-5YEARS Unknown Completed [facility] d - External COVID-19 VACCINE MODERNA 6MONTHS-5YEARS Unknown Completed [facility] d - External Influenza Nasal, Unspecified Formulation Unknown Completed [facility] External Covid-19 Vaccine Moderna (Spikevax), Mrna-lnp, Isaiah Protein, Pf Unknown Completed [facility] External Covid-19 Vaccine Moderna (Spikevax), Mrna-lnp, Isaiah Protein, Pf Unknown Completed [facility] External Influenza, Seasonal, Injectable, Preservative Free Unknown Completed [facility] - External Covid-19 Vaccine Moderna (Spikevax), Mrna-lnp, Isaiah Protein, Pf Unknown Completed [facility] - External COVID-19 VACCINE MODERNA 6MONTHS-5YEARS Unknown Completed [facility] - [facility] COVID-19 VACCINE MODERNA 6MONTHS-5YEARS Unknown Completed [facility] - External COVID-19 VACCINE MODERNA 6MONTHS-5YEARS Unknown Completed [facility] d - External Influenza Nasal, Unspecified Formulation Unknown Completed [facility] - External Influenza, Seasonal, Injectable, Preservative Free [...] Influenza, Seasonal, Injectable, Preservative Free Unknown Completed [facility] bold - External Covid-19 Vaccine Moderna (Spikevax), Mrna-lnp, Isaiah Protein, Pf Unknown Completed Melissa Seybold - External COVID-19 VACCINE MODERNA 6MONTHS-5YEARS Unknown Completed Melissa Seybol d - External COVID-19 VACCINE MODERNA 6MONTHS-5YEARS Unknown Completed [facility] - External COVID-19 VACCINE MODERNA 6MONTHS-5YEARS Unknown Completed Melissa [facility] - External Influenza Nasal, Unspecified Formulation Unknown Completed Melissa Seybold - External Influenza, Seasonal, Injectable, Preservative Free Unknown Completed [facility] bold - External Covid-19 Vaccine Moderna [...] Influenza, Seasonal, Injectable, Preservative Free Unknown Completed [facility] bold - External Covid-19 Vaccine Moderna (Spikevax), Mrna-lnp, Isaiah Protein, Pf Unknown Completed Melissa Seybold - External COVID-19 VACCINE MODERNA 6MONTHS-5YEARS Unknown Completed Melissa Seybol d - External COVID-19 VACCINE MODERNA 6MONTHS-5YEARS Unknown Completed Melissa [facility] d - External COVID-19 VACCINE MODERNA 6MONTHS-5YEARS Unknown Completed Melissa Seybol d - External Influenza Nasal, Unspecified Formulation Unknown [facility] Influenza, Seasonal, Injectable, Preservative Free Unknown Completed [facility] bold - External Covid-19 Vaccine Moderna [...] Influenza, Seasonal, Injectable, Preservative Free Unknown Completed [facility] bold - External Covid-19 Vaccine Moderna (Spikevax), Mrna-lnp, Isaiah Protein, Pf Unknown Com[facility] - External COVID-19 VACCINE MODERNA 6MONTHS-5YEARS Unknown Completed [facility] COVID-19 VACCINE MODERNA 6MONTHS-5YEARS Unknown Completed [facility] - External COVID-19 VACCINE MODERNA 6MONTHS-5YEARS Unknown [facility]al, Unspecified Formulation Unknown [facility] - External Influenza, Seasonal, Injectable, Preservative Free Unknown Completed Melissa bold - External Covid-19 Vaccine Moderna (Spikevax), [...] Influenza, Seasonal, Injectable, Preservative Free Unknown Completed [facility] bold - External Covid-19 Vaccine Moderna (Spikevax), Mrna-lnp, Isaiah Protein, Pf Unknown Completed Melissa [facility] - External COVID-19 VACCINE MODERNA 6MONTHS-5YEARS Unknown Completed [facility] d - External COVID-19 VACCINE MODERNA 6MONTHS-5YEARS Unknown Completed [facility] d - External COVID-19 VACCINE MODERNA 6MONTHS-5YEARS Unknown Completed [facility] - External Influenza Nasal, Unspecified Formulation Unknown Completed [facility] External Covid-19 Vaccine Moderna (Spikevax), Mrna-lnp, Isaiah Protein, Pf Unknown Completed [facility] External Covid-19 Vaccine Moderna (Spikevax), Mrna-lnp, Isaiah Protein, Pf Unknown Completed [facility] External Influenza, Seasonal, Injectable, Preservative Free Unknown Completed [facility] External Covid-19 Vaccine Moderna (Spikevax), Mrna-lnp, Isaiah Protein, Pf Unknown Completed [facility] External COVID-19 VACCINE MODERNA 6MONTHS-5YEARS Unknown Completed [facility] - External COVID-19 VACCINE MODERNA 6MONTHS-5YEARS Unknown Completed [facility] - External COVID-19 VACCINE MODERNA 6MONTHS-5YEARS Unknown Completed [facility] - External Influenza Nasal, Unspecified Formulation Unknown Completed [facility] External Covid-19 Vaccine Moderna (Spikevax), Mrna-lnp, Isaiah Protein, Pf Unknown Completed [facility] External Covid-19 Vaccine Moderna (Spikevax), Mrna-lnp, Isaiah Protein, Pf Unknown Completed [facility] External Influenza, Seasonal, Injectable, Preservative Free Unknown Completed [facility] External Covid-19 Vaccine Moderna (Spikevax), Mrna-lnp, Isaiah Protein, Pf Unknown Completed [facility] External COVID-19 VACCINE MODERNA 6MONTHS-5YEARS Unknown Completed [facility] d - External COVID-19 VACCINE MODERNA 6MONTHS-5YEARS Unknown Completed [facility] d - External COVID-19 VACCINE MODERNA 6MONTHS-5YEARS Unknown Completed [facility] - External Influenza Nasal, Unspecified Formulation Unknown Completed [facility] External Covid-19 Vaccine Moderna (Spikevax), Mrna-lnp, Isaiah Protein, Pf Unknown Completed [facility] - External Covid-19 Vaccine Moderna (Spikevax), Mrna-lnp, Isaiah Protein, Pf Unknown Completed [facility] - External Influenza, Seasonal, Injectable, Preservative Free Unknown Com[facility] - External Covid-19 Vaccine Moderna (Spikevax), Mrna-lnp, Isaiah Protein, Pf Unknown Completed Melissa [facility] - External COVID-19 VACCINE MODERNA 6MONTHS-5YEARS Unknown Completed [facility]ron[facility] - External COVID-19 VACCINE MODERNA 6MONTHS-5YEARS Unknown Completed Melissa [facility] - External COVID-19 VACCINE MODERNA 6MONTHS-5YEARS Unknown Completed [facility]ron[facility] - External Influenza Nasal, Unspecified Formulation Unknown [facility] Vaccine Moderna (Spikevax), Mrna-lnp, Isaiah Protein, Pf Unknown Completed [facility] External Covid-19 Vaccine Moderna (Spikevax), Mrna-lnp, Isaiah Protein, Pf Unknown Completed [facility] External Influenza, Seasonal, Injectable, Preservative Free Unknown Completed [facility] - External Covid-19 Vaccine Moderna (Spikevax), Mrna-lnp, Isaiah Protein, Pf Unknown Completed [facility] - External COVID-19 VACCINE MODERNA 6MONTHS-5YEARS Unknown Completed [facility]ron[facility] d - External COVID-19 VACCINE MODERNA 6MONTHS-5YEARS Unknown Completed Melissa [facility] - External COVID-19 VACCINE MODERNA 6MONTHS-5YEARS Unknown Completed [facility] d - External Influenza Nasal, Unspecified Formulation Unknown Completed Melissa [facility] - External Covid-19 Vaccine Moderna (Spikevax), Mrna-lnp, Isaiah Protein, Pf Unknown Completed [facility]ancy [facility]ronold - External Covid-19 Vaccine Moderna (Spikevax), Mrna-lnp, Isaiah Protein, Pf Unknown Completed [facility] - External Influenza, Seasonal, Injectable, Preservative Free Unknown Completed [facility] - External Vital Signs Vital Name Observation Time Observation Value Comments S ourconnie Systolic blood pressure 2023-03-17 21:59:00 143 mm[Hg] Melissa josue - External Diastolic blood pressure 2023-03-17 21:59:00 83 mm[Hg] Melissa [facility] - External Heart rate 2023-03-17 21:59:00 76 /min Kelse y Seybold - External Body temperature 2023-03-17 21:59:00 36.61 Nannette Melissa [facility] - External Respiratory rate 2023-03-17 21:59:00 16 /min Melissa [facility]ley[facility]bold - External Body height 2023-03-17 21:59:00 149.9 cm Trisha ey [facility] - External Body weight 2023-03-17 21:59:00 68.947 kg Trisha ey Seybold - External BMI 2023-03-17 21:59:00 30.70 kg/m2 Trisha martin Seybold - External Oxygen saturation in Arterial blood by Pulse oximetry 2023-03-17 21:59:00 100 /min Melissa Barrono ld - External Systolic blood pressure 2023-02-24 07:15:00 156 mm[Hg] [facility] Diastolic blood pressure 2023-02-24 07:15:00 88 mm[Hg] [facility] Heart rate 2023-02-24 07:15:00 97 /min [facility] Body temperature 2023-02-24 07:15:00 36.78 Nannette [facility] Respiratory rate 2023-02-24 07:15:00 13 /min [facility] Oxygen saturation in Arterial blood by Pulse oximetry 2023-02-24 07:15:00 96 /min [facility] Body height 2023-02-24 03:40:00 149.9 cm [facility] Body weight 2023-02-24 03:40:00 65.772 kg [facility] BMI 2023-02-24 03:40:00 29.29 kg/m2 [facility] Systolic blood pressure 2023-02-16 19:13:00 130 mm[Hg] Melissa [facility] ld - External Diastolic blood pressure 2023-02-16 19:13:00 70 mm[Hg] Melissa ybo ld - External Heart rate 2023-02-16 19:13:00 76 [facility] Body temperature 2023-02-16 [...] External Heart rate 2022-06-22 19:05:00 67 /min Ojse y Seybold - External Body temperature 2022-06-22 [...] External Heart rate 2022-05-26 18:52:00 73 /min Yulia y Seybold - External Respiratory rate 2022-05-26 [...] External Heart rate 2022-05-07 20:33:00 84 /min Kelse y Seybold - External Respiratory rate 2022-05-07 [...] Pulse oximetry 2022-05-01 18:25:00 99 /min Melissa Barrono ld - External Systolic blood pressure 2022-04-03 21:11:00 136 mm[Hg] Melissa [facility] ld - External Diastolic blood pressure 2022-04-03 21:11:00 72 mm[Hg] Melissa [facility] - External Heart rate 2022-04-03 21:11:00 73 /min Yulia [facility] Sey[facility] - External Body temperature 2022-04-03 21:11:00 37.39 Nannette Melissa [facility] - External Respiratory rate 2022-04-03 21:11:00 14 /min Melissa Qu[facility]ley[facility]bold - External Body height 2022-04-03 21:11:00 149.9 cm Trisha martin Seybold - External Body weight 2022-04-03 21:11:00 66.225 kg Trisha martin [facility] - External BMI 2022-04-03 21:11:00 29.49 kg/m2 Trisha mratin Seybold - External Oxygen saturation in Arterial blood by Pulse oximetry 2022-04-03 21:11:00 99 /min Melissa Barrono ld - External Systolic blood pressure 2021-09-30 20:09:00 144 mm[Hg] [facility] Diastolic blood pressure 2021-09-30 20:09:00 88 mm[Hg] [facility] Heart rate 2021-09-30 20:08:00 88 /min [facility] Body temperature 2021-09-30 20:08:00 35.94 Nannette [facility] Respiratory rate 2021-09-30 20:08:00 16 /min [facility] Body height 2021-09-30 20:08:00 149.9 cm [facility] Body weight 2021-09-30 20:08:00 64.501 kg [facility] BMI 2021-09-30 20:08:00 28.72 kg/m2 [facility] BP Systolic 2022-02-05 11:42:00 [...] n Source URINALYSIS 2023-02-24 04:28:00 Keaton Patiño [facility] POCT TEST 2023-02-24 04:26:00 Keaton Patiño [facility] LIPASE 2023-02-24 04:10:00 Keaton Patiño [facility] COMP. METABOLIC PANEL (03781) 2023-02-24 04:10:00 Keaton Patiño [facility] CBC WITH DIFF 2023-02-24 04:10:00 [facility] CONSENT[facility]REFUSAL FOR DIAGNOSIS AND TREATMENT 2023-02-24 03:30:37 Doctor Unassigned, Thrall [facility] ECG- ADULT 2022-11-11 16:50:07 Adriano Agee - External POCT HEMOGLOBIN A1C TEST 2021-09-30 21:21:00 Andrew Verduzco [facility] Plan of Care Planned Activity Planned Date Details Comments Source Goal Plan of Care Note [code = 63391-1] Goal Plan of Care Note [code = 93291-2] Goal Plan of Care Note [code = 33968-7] Goal Plan of Care Note [code = 26573-9] Goal Plan of Care Note [code = 03791-8] Goal Plan of Care Note [code = 42020-7] Goal Plan of Care Note [code = 38646-6] Goal Plan of Care Note [code = 75795-8] Goal Plan of Care Note [code = 86456-4] Goal Plan of Care Note [code = 58638-2] Goal Plan of Care Note [code = 44985-9] Goal Plan of Care Note [code = 59925-6] Goal Plan of Care Note [code = 92921-7] Goal Plan of Care Note [code = 64154-0] Goal Plan of Care Note [code = 10400-8] Goal Plan of Care Note [code = 47271-6] Goal Plan of Care Note [code = 46410-6] Goal Plan of Care Note [code = 67994-7] Goal Plan of Care Note [code = 14861-1] Goal Plan of Care Note [code = 47900-7] Goal Plan of Care Note [code = 46179-9] Goal Plan of Care Note [code = 42437-6] Goal Plan of Care Note [code = 78636-3] Goal Plan of Care Note [code = 79199-3] Goal Plan of Care Note [code = 95735-5] Goal Plan of Care Note [code = 55514-6] Goal Plan of Care Note [code = 40616-4] Goal Plan of Care Note [code = 60066-6] Goal Plan of Care Note [code = 39975-5] Goal Plan of Care Note [code = 15481-2] Goal Plan of Care Note [code = 86493-9] Goal Plan of Care Note [code = 78127-4] Goal Plan of Care Note [code = 58636-9] Goal Plan of Care Note [code = 13077-5] Goal Plan of Care Note [code = 64204-8] Goal Plan of Care Note [code = 67294-1] Goal Plan of Care Note [code = 55976-7] Goal Plan of Care Note [code = 63980-6] Goal Plan of Care Note [code = 03366-6] Goal Plan of Care Note [code = 30293-5] Goal Plan of Care Note [code = 83782-1] Goal Plan of Care Note [code = 93660-5] Goal Plan of Care Note [code = 10351-3] Goal Plan of Care Note [code = 01208-9] Goal Plan of Care Note [code = 45959-8] Goal Plan of Care Note [code = 20765-7] Goal Plan of Care Note [code = 05923-0] Goal Plan of Care Note [code = 83814-2] Goal Plan of Care Note [code = 77051-8] Goal Plan of Care Note [code = 40493-5] Goal Plan of Care Note [code = 82983-2] Goal Plan of Care Note [code = 63155-3] Goal Plan of Care Note [code = 41799-2] Encounters Start Date/Time End Date/Time Encounter Type Admission Type [facility] Care Department Encounter ID Source 2020-12-08 09:56:[address] [facility] [id number] [facility] 2023-07-19 13:00:00 2023-07-19 13:00:00 Outpatient GIDEON RODRIGUEZ [id number] [facility] 2023-05-27 08:30:00 2023-05-27 08:30:00 Outpatient DEANNE KAUR [id number] [facility] 2023-04-13 09:40:00 2023-04-13 09:40:00 Outpatient MATEO ANTHONY [id number] [facility] 2023-04-07 16:00:00 2023-04-07 16:00:00 Outpatient ERIC DURBIN [id number] [facility] 2023-03-17 16:20:00 2023-03-17 16:20:00 Outpatient IVIS HOOVER MELISSA RAJPUT [id number] Melissa [facility] 2023-03-17 16:00:00 2023-03-17 16:00:00 Outpatient ADRIANO AGEE MELISSA [facility]JPUT [id number] [facility] 2023-03-17 14:45:00 2023-03-17 14:45:00 Outpatient KEMAR RODRIGUEZ MELISSA [facility] [id number] [facility] 2023-03-16 10:00:00 2023-03-16 10:00:00 Outpatient JAZZY ESTHER RAJPUT [id number] [facility] 2023-03-15 08:40:00 2023-03-15 08:40:00 Outpatient IVIS HOOVER MELISSA RAJPUT [id number] [facility] 2023-03-12 13:30:00 2023-03-12 13:30:00 Outpatient ADRIANO AGEE MELISSA RAJPUT [id number] [facility] 2023-03-02 12:20:00 2023-03-02 12:20:00 Outpatient KEMAR RODRIGUEZ MELISSA RAJPUT [id number] [facility] 2023-03-02 12:00:00 2023-03-02 12:00:00 Outpatient JAZZY ESTHER RAJPUT [id number] [facility] 2023-03-01 00:00:00 2023-03-01 00:00:00 Outpatient ADRIANO AGEE MELISSA RAJPUT [id number] [facility] 2023-02-23 21:41:00 2023-02-24 01:28:00 Emergency X ROBB PATIÑOOLAYINKA [facility] ERT [id number] [facility] 2023-02-23 21:41:00 2023-02-24 01:28:00 Emergency Keaton Patiño [facility] [id number] [facility] 2023-02-24 00:00:2023-02-24 00:00:00 Outpatient SYDNIASHIVIS LAROSE MELISSA RAJPUT [id number] Melissa [facility] 2023-02-23 00:00:00 2023-02-23 00:00:00 Outpatient PURCELLESTHER RAMOS [id number] [facility] 2023-02-23 00:00:00 2023-02-23 00:00:00 Outpatient PREZAS, ADRIANO MELISSA [facility]JPUT [id number] [facility] 2023-02-23 00:00:00 2023-02-23 00:00:00 Outpatient PREZAS ADRIANO RAJPUT [id number] [facility] 2023-02-22 00:00:00 2023-02-22 00:00:00 Outpatient PURCELLESTHER RAMOS [id number] [facility] 2023-02-22 00:00:00 2023-02-22 00:00:00 Outpatient MD MELISSA NOBLE [id number] [facility] 2023-02-22 00:00:00 2023-02-22 00:00:00 Outpatient HERNANDEZTANGELA [id number] [facility] 2023-02-22 00:00:00 2023-02-22 00:00:00 Outpatient ONLYNEGAR [id number] [facility] 2023-02-18 00:00:00 2023-02-18 00:00:00 Outpatient PREZASADRIANO MELISSA RAJPUT [id number] [facility] 2023-02-16 14:05:00 2023-02-16 14:05:00 Outpatient TIFFANIE RAJPUT [id number] [facility] 2023-02-16 11:40:00 2023-02-16 11:40:00 Outpatient HERNANDEZTANGELA [id number] [facility] 2023-02-16 11:00:00 2023-02-16 11:00:00 Outpatient ESTHER PURCELL [id number] [facility] 2023-02-16 00:00:00 2023-02-16 00:00:00 Outpatient MD MELISSA NOBLE [id number] [facility] 2023-02-15 00:00:00 2023-02-15 00:00:00 Outpatient MD MELISSA NOBLE [id number] [facility] 2023-02-10 15:00:00 2023-02-10 15:00:00 Outpatient HERNANDEZTANGELA Lara MELISSA RAJPUT [id number] [facility] 2023-02-09 00:00:00 2023-02-09 00:00:00 Outpatient MELISSA RAJPUT [id number] [facility] 2023-02-03 14:30:00 2023-02-03 14:30:00 Outpatient LIZETH FLORES [id number] [facility] 2023-02-03 13:45:00 2023-02-03 13:45:00 Outpatient KEMAR RODRIGUEZ [id number] [facility] 2023-01-21 14:45:00 2023-01-21 14:45:00 Outpatient LIZETH FLORES [id number] [facility] 2023-01-21 00:00:00 2023-01-21 00:00:00 Outpatient MELISSA RAJPUT [id number] [facility] 2023-01-21 00:00:00 2023-01-21 00:00:00 Outpatient KEMAR RODRIGUEZ [id number] [facility] 2023-01-20 11:45:00 2023-01-20 11:45:00 Outpatient KEMAR RODRIGUEZ [id number] [facility] 2023-01-13 08:45:00 2023-01-13 08:45:00 Outpatient CHATO Garcia [id number] Mleissa Seybold 2023-01-13 08:20:00 2023-01-13 08:20:00 Outpatient GIDEON RODRIGUEZ [id number] Melissa [facility] 2023-01-08 00:00:00 2023-01-08 00:00:00 Outpatient ADRIANO AGEE [id number] [facility] 2023-01-07 14:05:00 2023-01-07 14:05:00 Outpatient MELISSA RAJPUT [id number] [facility] 2023-01-07 14:00:00 2023-01-07 14:00:00 Outpatient MELISSA RAJPUT [id number] [facility] 2023-01-06 15:10:00 2023-01-06 15:10:00 Outpatient MORGIDEON MAZARIEGOS MELISSA RAJPUT [id number] [facility] 2022-12-29 15:00:00 2022-12-29 15:00:00 Outpatient GIFTYALICIAA MELISSA RAJPUT [id number] [facility] 2022-12-29 00:00:00 2022-12-29 00:00:00 Outpatient PREADRIANO POWELL [id number] [facility] 2022-12-28 00:00:00 2022-12-28 00:00:00 Outpatient MD MELISSA NOBLE [id number] [facility] 2022-12-25 00:00:00 2022-12-25 00:00:00 Outpatient SEBASTIAN CHUNG [id number] [facility] 2022-12-21 00:00:00 2022-12-21 00:00:00 Outpatient ANDREI MAR [id number] [facility] 2022-12-21 00:00:00 2022-12-21 00:00:00 Outpatient PREZAS, ADRIANO MELISSA RAJPUT [id number] [facility] 2022-12-14 00:00:00 2022-12-14 00:00:00 Outpatient PREZASADRIANO [id number] [facility] 2022-12-11 14:15:00 2022-12-11 14:15:00 Outpatient WEN RAJPUT [id number] Melissa Seybold 2022-12-11 13:45:00 2022-12-11 13:45:00 Outpatient PREZASADRIANO [id number] [facility] 2022-12-06 00:00:00 2022-12-06 00:00:00 Outpatient PREZAS, ADRIANO RAJPUT MELISSA [id number] [facility] 2022-11-27 13:30:00 2022-11-27 13:30:00 Outpatient PREZAS, ADRIANO RAJPUT MELISSA [id number] [facility] 2022-11-27 08:30:00 2022-11-27 08:30:00 Outpatient MICHAELKEMAR MELISSA MELISSA [id number] [facility] 2022-11-23 00:00:00 2022-11-23 00:00:00 Outpatient PREZAS, ADRIANO RAJPUT MELISSA [id number] [facility] 2022-11-18 00:00:00 2022-11-18 00:00:00 Outpatient PREZAS, ADRIANO RAJPUT MELISSA [id number] [facility] 2022-11-16 14:30:00 2022-11-16 14:30:00 Outpatient MELISSA RAJPUT [id number] [facility] 2022-11-16 00:00:00 2022-11-16 00:00:00 Outpatient PREZAS, ADRIANO RAJPUT MELISSA [id number] [facility] 2022-[facility]-16 00:00:00 2022-11-16 00:00:00 Outpatient PREZAS, ADRIANO RAJPUT MELISSA [id number] [facility] 2022-11-16 00:00:00 2022-11-16 00:00:00 Outpatient PREZAS, ADRIANO MELISSA RAJPUT [id number] [facility] 2022-11-11 11:30:00 2022-11-11 11:30:00 Outpatient PREZAS, ADRIANO MELISSA RAJPUT [id number] [facility] 2022-11-05 15:00:00 2022-11-05 15:00:00 Outpatient PURCELLESTHER RAMOS [id number] [facility] 2022-11-02 00:00:00 2022-11-02 00:00:00 Outpatient ESTHER PURCELL [id number] [facility] 2022-11-02 00:00:00 2022-11-02 00:00:00 Outpatient ADRIANO AGEE MELISSA [id number] [facility] 2022-11-02 00:00:00 2022-11-02 00:00:00 Outpatient ADRIANO AGEE MELISSA [id number] [facility] 2022-10-30 13:40:00 2022-10-30 13:40:00 Outpatient GIDEON RODRIGUEZ MELISSA RAJPUT [id number] [facility] 2022-10-30 13:35:00 2022-10-30 13:35:00 Outpatient TOMOGRAPHY, FBMDC MELISSA RAJPUT [id number] [facility] 2022-10-30 10:30:00 2022-10-30 10:30:00 Outpatient MICHAEL KEMAR MELISSA RAJPUT [id number] [facility] 2022-10-30 00:00:00 2022-10-30 00:00:00 Outpatient ADRIANO AGEE MELISSA RAJPUT [id number] [facility] 2022-10-30 00:00:00 2022-10-30 00:00:00 Outpatient ADRIANO AGEE MELISSA RAJPUT [id number] [facility] 2022-10-30 00:00:00 2022-10-30 00:00:00 Outpatient MELISSA RAJPUT [id number] [facility] 2022-10-29 12:40:00 2022-10-29 12:40:00 Outpatient LAB90 MELISSA RAJPUT [id number] [facility] 2022-10-28 16:20:00 2022-10-28 16:20:00 Outpatient IVIS HOOVER [id number] Melissa [facility] 2022-10-27 14:45:00 2022-10-27 14:45:00 Outpatient SHMUEL HAGEN [id number] Melissa [facility] 2022-10-26 16:00:00 2022-10-26 16:00:00 Outpatient IVIS HOOVER [id number] Melissa Seybold 2022-10-26 14:30:00 2022-10-26 14:30:00 Outpatient NUHA WINSTON MELISSA RAJPUT [id number] [facility] 2022-10-26 14:15:00 2022-10-26 14:15:00 Outpatient MELISSA RAJPUT [id number] [facility] 2022-10-23 14:30:00 2022-10-23 14:30:00 Outpatient GIDEON RODRIGUEZ MELISSA RAJPUT [id number] [facility] 2022-10-19 08:50:00 2022-10-19 08:50:00 Outpatient NUHA WINSTON MELISSA RAJPUT [id number] [facility] 2022-10-16 00:00:00 2022-10-16 00:00:00 Outpatient NUHA WINSTON [facility]ELISSA RAJPUT [id number] [facility] 2022-10-13 15:20:00 2022-10-13 15:20:00 Outpatient MATEO ANTHONY [id number] [facility] 2022-10-13 14:00:00 2022-10-13 14:00:00 Outpatient VF53 MELISSA RAJPUT [id number] [facility] 2022-10-13 10:20:00 2022-10-13 10:20:00 Outpatient LEONID ROSE [id number] [facility] 2022-10-02 00:00:00 2022-10-02 00:00:00 Outpatient MD MELISSA NOBLE [id number] [facility] 2022-10-01 00:00:00 2022-10-01 00:00:00 Outpatient ADRIANO AGEE [id number] [facility] 2022-09-30 00:00:00 2022-09-30 00:00:00 Outpatient ADRIANO AGEE [id number] [facility] 2022-09-30 00:00:00 2022-09-30 00:00:00 Outpatient JORGE CHEEK [id number] [facility] 2022-09-28 00:00:00 2022-09-28 00:00:00 Outpatient NOCK, MATEO MELISSA RAJPUT [id number] [facility] 2022-09-28 00:00:00 2022-09-28 00:00:00 Outpatient PREZASADRIANO MELISSA RAJPUT [id number] [facility] 2022-09-19 00:00:00 2022-09-19 00:00:00 Outpatient PREZAS, ADRIANO MELISSA RAJPUT [id number] [facility] 2022-09-15 00:00:00 2022-09-15 00:00:00 Outpatient PREZASADRIANO MELISSA RAJPUT [id number] [facility] 2022-09-14 11:55:00 2022-09-14 11:55:00 Outpatient LAB90 MELISSA RAJPUT [id number] [facility] 2022-09-14 00:00:00 2022-09-14 00:00:00 Outpatient JORGE CHEEK MELISSA RAJPUT [id number] [facility] 2022-09-08 00:00:00 2022-09-08 00:00:00 Outpatient KESHAWN JONES MELISSA RAJPUT [id number] [facility] 2022-09-07 12:00:00 2022-09-07 12:00:00 Outpatient ROBERTKESHAWN Kamara MELISSA RAJPUT [id number] [facility] 2022-09-04 00:00:00 2022-09-04 00:00:00 Outpatient PREZASADRIANO MELISSA RAJPUT [id number] [facility] 2022-09-04 00:00:00 2022-09-04 00:00:00 Outpatient PREZAADRIANO Resendez MELISSA RAJPUT [id number] [facility] 2022-09-03 15:15:00 2022-09-03 15:15:00 Outpatient ESTHER PURCELL [id number] [facility] 2022-09-02 00:00:00 2022-09-02 00:00:00 Outpatient MD MELISSA NOBLE [id number] [facility] 2022-09-01 00:00:00 2022-09-01 00:00:00 Outpatient MD MELISSA NOBLE [id number] [facility] 2022-09-01 00:00:00 2022-09-01 00:00:00 Outpatient PREZAADRIANO Resendez MELSISA RAJPUT [id number] [facility] 2022-08-31 00:00:00 2022-08-31 00:00:00 Outpatient PURCELLESTHER RAMOS MELISSA RAJPUT [id number] [facility] 2022-08-27 13:30:00 2022-08-27 13:30:00 Outpatient PREZAADRIANO Resendez MELISSA RAJPUT [id number] [facility] 2022-08-19 11:30:00 2022-08-19 11:30:00 Outpatient GIDEON RODRIGUEZ [id number] [facility] 2022-08-04 13:00:00 2022-08-04 13:00:00 Outpatient GIDEON RODRIGUEZ [id number] [facility] 2022-07-30 00:00:00 2022-07-30 00:00:00 Outpatient JORGE CHEEK MELISSA RAJPUT [id number] [facility] 2022-07-28 00:00:00 2022-07-28 00:00:00 Outpatient MAINORSantosMATEO [id number] [facility] 2022-07-28 00:00:00 2022-07-28 00:00:00 Outpatient PREZASADRIANO MELISSA RAJPUT [id number] [facility] 2022-07-28 00:00:00 2022-07-28 00:00:00 Outpatient PREZASADRIANO MELISSA RAJPUT [id number] [facility] 2022-07-19 00:00:00 2022-07-19 00:00:00 Outpatient PREZASVANCEADRIANOJUSTIN RAJPUT [id number] [facility] 2022-07-15 13:15:00 2022-07-15 13:15:00 Outpatient MELISSA RAJPUT [id number] [facility] 2022-07-13 14:00:00 2022-07-13 14:00:00 Outpatient NOCMATEO Graham MELISSA [id number] [facility] 2022-07-10 00:00:00 2022-07-10 00:00:00 Outpatient PREZASADRIANO MELISSA [id number] [facility] 2022-07-10 00:00:00 2022-07-10 00:00:00 Outpatient PREZASADRIANO MELISSA RAJPUT [id number] [facility] 2022-07-09 13:30:00 2022-07-09 13:30:00 Outpatient LAB90 MELISSA RAJPUT [id number] [facility] 2022-07-07 00:00:00 2022-07-07 00:00:00 Outpatient PREZAS, ADRIANO MELISSA RAJPUT [id number] [facility] 2022-07-03 00:00:00 2022-07-03 00:00:00 Outpatient MD MELISSA NOBLE [id number] [facility] 2022-06-30 14:30:00 2022-06-30 14:30:00 Outpatient PREZASADRIANO MELISSA RAJPUT [id number] [facility] 2022-06-29 14:30:00 2022-06-29 14:30:00 Outpatient UDOETUKGIDEON MELISSA RAJPUT [id number] [facility] 2022-06-29 13:15:00 2022-06-29 13:15:00 Outpatient 1, OPTICAL MELISSA RAJPUT [id number] [facility] 2022-06-24 11:00:00 2022-06-24 11:00:00 Outpatient PREZASADRIANO MELISSA RAJPUT [id number] [facility] 2022-06-24 00:00:00 2022-06-24 00:00:00 Outpatient PREZASADRIANO MELISSA RAJPUT [id number] [facility] 2022-06-24 00:00:00 2022-06-24 00:00:00 Outpatient NOCKMATEO MELISSA RAJPUT [id number] [facility] 2022-06-22 11:30:00 2022-06-22 11:30:00 Outpatient IVT, GABY RAJPUT [id number] [facility] 2022-06-22 00:00:00 2022-06-22 00:00:00 Outpatient MELISSA RAJPUT [id number] [facility] 2022-06-22 00:00:00 2022-06-22 00:00:00 Outpatient PREZAMal, ADRIANO RAJPUT [id number] [facility] 2022-06-19 15:40:00 2022-06-19 15:40:00 Outpatient ROBERT, KESHAWN MELISSA RAJPUT [id number] [facility] 2022-06-19 14:00:00 2022-06-19 14:00:00 Outpatient PURCELLESTHER RAMOS [id number] [facility] 2022-06-19 00:00:00 2022-06-19 00:00:00 Outpatient MANTRACARLTON ARIZMENDI [id number] [facility] 2022-06-17 00:00:00 2022-06-17 00:00:00 Outpatient NOCK MATEOBRENTON RAJPUT [id number] [facility] 2022-06-15 00:00:00 2022-06-15 00:00:00 Outpatient PREADRIANO POWELL [id number] [facility] 2022-06-15 00:00:00 2022-06-15 00:00:00 Outpatient MANTRACALRTON ARIZMENDI [id number] [facility] 2022-06-12 14:20:00 2022-06-12 14:20:00 Outpatient KUMARISMA Low [id number] [facility] 2022-06-09 11:30:00 2022-06-09 11:30:00 Outpatient INFUSION, GABY RAJPUT [id number] [facility] 2022-06-02 00:00:00 2022-06-02 00:00:00 Outpatient RUBYANGELA [id number] [facility] 2022-06-01 14:00:00 2022-06-01 14:00:00 Outpatient PREZAADRIANO Resendez [id number] [facility] 2022-06-01 00:00:00 2022-06-01 00:00:00 Outpatient CARLTON HERNANDEZ MELISSA RAJPUT [id number] [facility] 2022-05-26 10:00:00 2022-05-26 10:00:00 Outpatient IVT, MC MELISSA RAJPUT [id number] [facility] 2022-05-18 00:00:00 2022-05-18 00:00:00 Outpatient DIORZAIN HOLCOMB MELSISA RAJPUT [id number] [facility] 2022-05-13 16:00:00 2022-05-13 16:00:00 Outpatient MELISSA RAJPUT [id number] [facility] 2022-05-12 11:35:00 2022-05-12 11:35:00 Outpatient TOMOGRAPHY, CK MELISSA RAJPUT [id number] [facility] 2022-05-12 11:05:00 2022-05-12 11:05:00 Outpatient TOMOGRAPHY, CK MELISSA RAJPUT [id number] [facility] 2022-05-12 10:40:00 2022-05-12 10:40:00 Outpatient NOCKNESSMATEO MELISSA RAJPUT [id number] [facility] 2022-05-11 14:30:00 2022-05-11 14:30:00 Outpatient CATRACHITONUHA MELISSA RAJPUT [id number] [facility] 2022-05-08 10:00:00 2022-05-08 10:00:00 Outpatient PREZAS, ADRIANO RAJPUT [id number] [facility] 20[facility]-07 16:00:00 2022-05-07 16:00:00 Outpatient MATTHEW ASHFORD [id number] [facility] 2022-05-06 00:00:00 2022-05-06 00:00:00 Outpatient MELISSA RAJPUT [id number] [facility] 2022-05-05 07:50:00 2022-05-05 07:50:00 Outpatient MELISSA RAJPUT [id number] [facility]22-[facility]05 07:30:00 2022-05-05 07:30:00 Outpatient MELISSA MELISSA [id number] [facility] 2022-05-05 00:00:00 2022-05-05 00:00:00 Outpatient PREZAS, ADRIANO MELISSA MELISSA [id number] [facility] 2022-05-05 00:00:00 2022-05-05 00:00:00 Outpatient PHOEBE ROWE MELISSA RAJPUT [id number] [facility] 2022-05-05 00:00:00 2022-05-05 00:00:00 Outpatient PREZAS, ADRIANO MELISSA MELISSA [id number] [facility] 2022-05-05 00:00:00 2022-05-05 00:00:00 Outpatient MELISSA RAJPUT [id number] [facility] 2022-05-01 14:30:00 2022-05-01 14:30:00 Outpatient LAB90 MELISSA RAJPUT [id number] [facility] 2022-05-01 13:45:00 2022-05-01 13:45:00 Outpatient PREZAS, ADRIANO MELISSA RAJPUT [id number] [facility] 2022-04-22 16:15:00 2022-04-22 16:15:00 Outpatient MELISSA RAJPUT [id number] [facility] 2022-04-22 10:00:00 2022-04-22 10:00:00 Outpatient IVIS HOOVER MELISSA RAJPUT [id number] [facility] 2022-04-10 16:00:00 2022-04-10 16:00:00 Outpatient MELISSA RAJPUT [id number] [facility] 2022-04-10 00:00:00 2022-04-10 00:00:00 Outpatient PREZAS, ADRIANO MELISSA RAJPUT [id number] [facility] 2022-04-09 00:00:00 2022-04-09 00:00:00 Outpatient PREZAS, ADRIANO RAJPUT [id number] [facility] 2022-04-09 00:00:00 2022-04-09 00:00:00 Outpatient PREZAS, ADRIANO RAJPUT [id number] [facility] 2022-04-09 00:00:00 2022-04-09 00:00:00 Outpatient ADRIANO AGEE [id number] [facility] 2022-04-08 14:15:00 2022-04-08 14:15:00 Outpatient LAB90 MELISSA RAJPUT [id number] [facility] 2022-04-07 00:00:00 2022-04-07 00:00:00 Outpatient ADRIANO AGEE [id number] [facility] 2022-04-06 13:40:00 2022-04-06 13:40:00 Outpatient LAB90 MELISSA RAJPUT [id number] [facility] 2022-04-03 15:15:00 2022-04-03 15:15:00 Outpatient ADRIANO AGEE [id number] [facility] 2022-04-01 10:30:00 2022-04-01 10:30:00 Outpatient R ANDREW VERDUZCO [facility] [id number] [facility] 2022-04-01 10:30:00 2022-04-01 10:30:00 Outpatient R ANDREW VERDUZCO [facility] [id number] [facility] 2022-02-26 14:58:07 2022-02-26 14:58:07 Outpatient SFA SFA [id number] Matthew Brown 2022-02-20 14:15:19 2022-02-20 14:15:19 Outpatient SFA SFA [id number] Matthew Brown 2022-02-11 09:20:44 2022-02-11 09:20:44 Outpatient SFA SFA [id number] Matthew Brown 2022-02-05 11:38:34 2022-02-05 11:38:34 Outpatient SFA SFA [id number] Matthew Brown 2022-02-05 00:00:00 2022-02-05 00:00:00 Outpatient Visit [id number] 10:42:46 2021-11-17 10:42:46 Outpatient [facility] [id number] Matthew Brown 2021-11-13 15:06:22 2021-11-13 15:06:22 Outpatient [facility] [id number] Matthew Brown 2021-11-13 00:00:00 2021-11-13 00:00:00 Outpatient Visit [id number] 2021-10-09 00:00:00 2021-10-09 00:00:00 Outpatient ROSETTA FINNEY [facility] [id number] [facility] 2021-10-01 00:00:00 2021-10-01 00:00:00 Patient Outreach ToniMalini Darryn [place] [id number] [id number] [id number] [facility] 2021-10-01 00:00:00 2021-10-01 00:00:00 Telephone Malini Muñoz Darryn [place] [id number] 350.1.13.10 4.2.7.2.686 [id number] [facility] 2021-09-30 15:00:00 2021-09-30 16:30:37 Outpatient R ANDREW VERDUZCO [facility] [id number] [facility] 2021-09-30 15:00:00 2021-09-30 16:30:37 Outpatient R ANDREW VERDUZCO [facility] [id number] [facility] 2021-09-30 15:00:00 2021-09-30 16:30:37 Office Visit Andrew Verduzco [facility] [id number] 350.1.13.10 4.2.7.2.686 [id number] [facility] 2021-09-30 00:00:00 2021-09-30 00:00:00 Orders Only Doctor Unassigned, [facility] [id number] 350.1.13.10 4.2.7.2.686 [id number] [facility] 2021-07-24 00:00:00 2021-07-24 00:00:00 Orders Only Doctor Unassigned, [place] [id number] 350.1.13.10 4.2.7.2.686 [id number] [facility] 2021-04-11 14:20:00 2021-04-11 14:20:00 Outpatient R UNKNOWN, ATTENDING [facility] [id number] [facility] 2021-04-11 14:20:00 2021-04-11 14:20:00 Outpatient R UNKNOWN, ATTENDING [facility] [id number] [facility] 2021-04-07 21:43:00 2021-04-08 01:09:00 Emergency X LEXA GOFF [facility] ERT [id number] [facility] 2021-04-07 21:43:00 2021-04-08 01:09:00 Emergency Lexa Goff [facility] 1.840.114 350.1.13.10 4.2.7.2.686 [id number] [facility] 2019-08-21 08:00:00 2019-08-21 08:00:00 Outpatient R PATRIA LEVY [facility] [id number] [facility] 2019-07-24 21:47:47 2019-07-25 02:18:00 Emergency X Santos MOISE [facility] ERT [id number] [facility] Results Test Description Test Time Test Comments Results Result Co mments Source [facility] [id number] 18:40:14* Test Item Value Reference Range Interpretation Comme nts VENTRICULAR RATE (test code = 39918) BPM ATRIAL RATE (test code = 59081) BPM P-R INTERVAL (test code = 45032) 134 ms QRS DURATION (test code = 34802) 80 ms Q-T INTERVAL (test code = 85750) 408 ms QTC CALCULATION(BEZE (test code = 95313) 437 ms CALCULATED P AXIS (test code = 00235) degrees CALCULATED R AXIS (test code = 33080) degrees CALCULATED T AXIS (test code = 71541) degrees DIAGNOSIS (test code = 90036) Normal sinus rhythmPossible Inferior infarct , age undeterminedPoor R-wave progressionBorderline ECGNo previous ECGs availableConfirmed by Radha MCCALL ([id number]) on 11/11/2022 1:40:13 PM Melissa Grant - ExternalLIPID [id number] 05:52:40* Test Item Value Reference Range Interpretation [...] SPECIMENS. FOR MOREINFORMATION, SEE CLIENT ANNOUNCEMENT AT [email or web address] RISK RATIO LDL/HDL (test code = 2238) 2.22 RATIO <3.22 COMPREHENSIVE METABOLIC [id number] 05:52:40* Test Item Value Reference Range Interpretation Comme nts GLUCOSE (test code = 2217) 166 MG/DL 70-99 H BUN (test code = 2208) 33 MG/DL 6-20 H CREATININE (test code = 2214) 1.77 MG/DL 0.60-1.30 H eGFR (2020 CKD-EPI) (test code = ) 35 ML/MIN/1.73 >60 L CALC BUN/CREAT (test code = 2234) 19 RATIO 6-28 SODIUM (test code = 2230) 141 MEQ/L 133-146 POTASSIUM (test code = 2227) 4.9 MEQ/L 3.5-5.4 CHLORIDE (test code = 2214) 108 MEQ/L 95-107 H CARBON DIOXIDE (test code = 2205) 22 MEQ/L 19-31 CALCIUM (test code = 2208) 9.2 MG/DL 8.5-10.5 PROTEIN, TOTAL (test code = 2228) 7.1 G/DL 6.1-8.3 ALBUMIN (test code = 2200) 3.7 G/DL 3.5-5.2 CALC GLOBULIN (test code = 2239) 3.4 G/DL 1.9-3.7 CALC A/G RATIO (test code = 2233) 1.1 RATIO 1.0-2.6 BILIRUBIN, TOTAL (test code = 2206) <0.2 MG/DL See_Comment [Automated me ssage] The system which generated this result transmitted reference range: <=1.2. The reference range was not used to interpret this result as normal/abnormal. ALKALINE PHOSPHATASE (test code = 2203) 98 U/L 40-123 AST (test code = 8) 14 U/L 9-40 ALT (test code = 2218) 8 U/L 5-40 UNLESS OTHERWISE INDICATED, ALL TESTING PERFORMED [facility] [address] [place] [address] FIELD PROPERTY LOSS SPECIALIST: JAYCEE RAMIREZ M.D. [place] NUMBER [id number] [facility]. [id number] HEMOGLOBIN [id number] 04:18:15* Test Item Value Reference Range Interpretation Comme nts HEMOGLOBIN A1c (test code = 63816) 7.5 % 4.2-5.6 H [employer] GUIDELINES FOR HGB A1C: [...] CONSIDER ALTERNATE TESTING OR LABORATORY CONSULTATION. HEMOGLOBIN [id number] 00:00:00* Test Item Value Reference Range Interpretation Comme nts HEMOGLOBIN A1c (test code = 88394) 7.5 % HEMOGLOBIN [id number] 00:00:00* Test Item Value Reference Range Interpretation Comme nts HEMOGLOBIN A1c (test code = 43470) 7.5 % HEMOGLOBIN [id number] 00:00:00* Test Item Value Reference Range Interpretation Comme nts HEMOGLOBIN A1c (test code = 85932) 7.5 % LIPID [id number] 00:00:00* Test Item Value Reference Range Interpretation Comme nts CHOLESTEROL (test code = 2210) 174 MG/DL TRIGLYCERIDES (test code = 2232) 192 MG/DL HDL CHOLESTEROL (test code = 2220) 45 MG/DL CALC LDL CHOL (test code = 2237) 100 MG/DL RISK RATIO LDL/HDL (test cod e = 2238) 2.22 RATIO LIPID [id number] 00:00:00* Test Item Value Reference Range Interpretation Comme nts CHOLESTEROL (test code = 2210) 174 MG/DL TRIGLYCERIDES (test code = 2232) 192 MG/DL HDL CHOLESTEROL (test code = 2220) 45 MG/DL CALC LDL CHOL (test code = 2237) 100 MG/DL RISK RATIO LDL/HDL (test cod e = 2238) 2.22 RATIO COMPREHENSIVE METABOLIC [id number] 00:00:00* Test Item Value Reference Range Interpretation Comme nts GLUCOSE (test code = 2217) 166 MG/DL BUN (test code = 2208) 33 MG/DL CREATININE (test code = 2214) 1.77 MG/DL eGFR (2020 CKD-EPI) (test co de = 69271) 35 ML/MIN/1.73 CALC BUN/CREAT (test code = [...] code = 2219) 8 U/L COMPREHENSIVE METABOLIC [id number] 00:00:00* Test Item Value Reference Range Interpretation Comme nts GLUCOSE (test code = 2217) 166 MG/DL BUN (test code = 2208) 33 MG/DL CREATININE (test code = 2214) 1.77 MG/DL eGFR (2020 CKD-EPI) (test co de = 03022) 35 ML/MIN/1.73 CALC BUN/CREAT (test code = [...] = 2219) 8 U/L POCT HEMOGLOBIN A1C [id number] 21:21:00* Test Item Value Reference Range Interpretation Comme [facility] POCT HBA1C (test code = 4548-4) 8.2 % 4-6 A Lab Interpretation (test cod e = 27202-6) [facility]normal [facility] [id number] 05:24:49* Test Item Value Reference Range Interpretation Comme [facility] HEMOGLOBIN A1c (test code = 64098) 7.8 % 4.2-5.6 H [employer] GUIDELINES FOR HGB A1C: [...] CONSIDER ALTERNATE TESTING OR LABORATORY CONSULTATION. LIPID [id number] 05:18:45* Test Item Value Reference Range Interpretation [...] SPECIMENS. FOR MOREINFORMATION, SEE CLIENT ANNOUNCEMENT AT [email or web address] /[email or web address] RISK RATIO LDL/HDL (test code = 2238) 3.54 RATIO <3.22 H COMPREHENSIVE METABOLIC [id number] 05:18:45* Test Item Value Reference Range Interpretation Comme nts GLUCOSE (test code = 2217) 202 MG/DL 70-99 H BUN (test code = 2208) 23 MG/DL 6-20 H CREATININE (test code = 2214) 1.57 MG/DL 0.60-1.30 H eGFR (2020 CKD-EPI) (test code = 47604) 41 ML/MIN/1.73 >60 L CALC BUN/CREAT (test code = 2235) 15 RATIO 6-28 SODIUM (test code = 2231) 139 MEQ/L 133-146 POTASSIUM (test code = 2228) 4.6 MEQ/L 3.5-5.4 CHLORIDE (test code = 2215) 102 MEQ/L 95-107 CARBON DIOXIDE (test code = 2206) 29 MEQ/L 19-31 CALCIUM (test code = 220) 9.3 MG/DL 8.5-10.5 PROTEIN, TOTAL (test code [...] OTHERWISE INDICATED, ALL TESTING PERFORMED ATCL[facility] PATH[facility] [employer] [address] [place] [address] FIELD PROPERTY LOSS SPECIALIST: JAYCEE RAMIREZ M.D. [place] NUMBER [id number] [facility] [place]. [id number] COMPREHENSIVE METABOLIC PANEL [ADDED]2021-07-26 00:00:00* Test Item Value Reference Range Interpretation Comme nts GLUCOSE (test code = 2217) 202 MG/DL BUN (test code = 2208) 23 MG/DL CREATININE (test code = 2214) 1.57 MG/DL eGFR (2020 CKD-EPI) (test co de = 00542) 41 ML/MIN/1.73 CALC BUN/CREAT (test code = [...] Comme nts HEMOGLOBIN A1c (test code = 69914) 7.8 % HEMOGLOBIN A1c [ADDED]2021-07-26 00:00:00* Test Item Value Reference Range Interpretation Comme nts HEMOGLOBIN A1c (test code = 28775) 7.8 % HEMOGLOBIN A1c [ADDED]2021-07-26 00:00:00* Test Item Value Reference Range Interpretation Comme nts HEMOGLOBIN A1c (test code = 65430) 7.8 % LIPID PANEL [ADDED]2021-07-26 00:00:00* Test [...] eGFR (2020 CKD-EPI) (test co de = 76116) 41 ML/MIN/1.73 CALC BUN/CREAT (test code = [...] eGFR (2020 CKD-EPI) (test co de = 42681) 41 ML/MIN/1.73 CALC BUN/CREAT (test code = [...] Comme nts HEMOGLOBIN A1c (test code = 09499) 7.8 % HEMOGLOBIN A1c [ADDED]2021-07-26 00:00:00* Test Item Value Reference Range Interpretation Comme nts HEMOGLOBIN A1c (test code = 35431) 7.8 % HEMOGLOBIN A1c [ADDED]2021-07-26 00:00:00* Test Item Value Reference Range Interpretation Comme nts HEMOGLOBIN A1c (test code = 76393) 7.8 % LIPID PANEL [ADDED]2021-07-26 00:00:00* Test [...] eGFR (2020 CKD-EPI) (test co de = 53956) 41 ML/MIN/1.73 CALC BUN/CREAT (test code = [...] (test code = 2219) 11 U/L HEMOGLOBIN [id number] 06:11:51* Test Item Value Reference Range Interpretation Comme nts HEMOGLOBIN A1c (test code = 23889) 10.8 % 4.2-5.6 H [employer] GUIDELINES FOR HGB A1C: [...] CONSIDER ALTERNATE TESTING OR LABORATORY CONSULTATION. LIPID [id number] 05:14:42* Test Item Value Reference Range Interpretation [...] SPECIMENS. FOR MOREINFORMATION, SEE CLIENT ANNOUNCEMENT AT [email or web address] RISK RATIO LDL/HDL (test code = 2238) 2.90 RATIO <3.22 COMPREHENSIVE METABOLIC [id number] 05:14:42* Test Item Value Reference Range Interpretation Comme nts GLUCOSE (test code = 2217) 58 MG/DL 70-99 L BUN (test code = 2208) 19 MG/DL 6-20 CREATININE (test code = 2214) 1.40 MG/DL 0.60-1.30 H eGFR (2020 CKD-EPI) (test code = 03739) 47 ML/MIN/1.73 >60 L CALC BUN/CREAT (test [...] 5-40 UNLESS OTHERWISE INDICATED, ALL TESTING PERFORMED [facility] [employer] [employer] [address] [place] [address] FIELD PROPERTY LOSS SPECIALIST: JAYCEE RAMIREZ M.D. CLIA NUMBER [id number] [facility] [place]. [id number] COMPREHENSIVE METABOLIC [id number] 00:00:00* Test Item Value Reference Range Interpretation Comme nts GLUCOSE (test code = 2217) 58 MG/DL BUN (test code = 2208) 19 MG/DL CREATININE (test code = 2214) 1.40 MG/DL eGFR (2020 CKD-EPI) (test co de = 08707) 47 ML/MIN/1.73 CALC BUN/CREAT (test code = [...] code = 2219) 11 U/L COMPREHENSIVE METABOLIC [id number] 00:00:00* Test Item Value Reference Range Interpretation Comme nts GLUCOSE (test code = 2217) 58 MG/DL BUN (test code = 2208) 19 MG/DL CREATININE (test code = 2214) 1.40 MG/DL eGFR (2020 CKD-EPI) (test co de = 97174) 47 ML/MIN/1.73 CALC BUN/CREAT (test code = [...] (test code = 2219) 11 U/L HEMOGLOBIN [id number] 00:00:00* Test Item Value Reference Range Interpretation Comme nts HEMOGLOBIN A1c (test code = 45447) 10.8 % HEMOGLOBIN [id number] 00:00:00* Test Item Value Reference Range Interpretation Comme nts HEMOGLOBIN A1c (test code = 13220) 10.8 % HEMOGLOBIN [id number] 00:00:00* Test Item Value Reference Range Interpretation Comme nts HEMOGLOBIN A1c (test code = 28053) 10.8 % LIPID [id number] 00:00:00* Test Item Value Reference Range Interpretation Comme nts CHOLESTEROL (test code = 2210) 235 MG/DL TRIGLYCERIDES (test code = 2232) 215 MG/DL HDL CHOLESTEROL (test code = 2220) 51 MG/DL CALC LDL CHOL (test code = 2237) 148 MG/DL RISK RATIO LDL/HDL (test cod e = 2238) 2.90 RATIO LIPID [id number] 00:00:00* Test Item Value Reference Range Interpretation Comme nts CHOLESTEROL (test code = 2210) 235 MG/DL TRIGLYCERIDES (test code = 2232) 215 MG/DL HDL CHOLESTEROL (test code = 2220) 51 MG/DL CALC LDL CHOL (test code = 2237) 148 MG/DL RISK RATIO LDL/HDL (test cod e = 2238) 2.90 RATIO COMPREHENSIVE METABOLIC [id number] 00:00:00* Test Item Value Reference Range Interpretation Comme nts GLUCOSE (test code = 2217) 58 MG/DL BUN (test code = 2208) 19 MG/DL CREATININE (test code = 2214) 1.40 MG/DL eGFR (2020 CKD-EPI) (test co de = 03732) 47 ML/MIN/1.73 CALC BUN/CREAT (test code = [...] code = 2219) 11 U/L COMPREHENSIVE METABOLIC [id number] 00:00:00* Test Item Value Reference Range Interpretation Comme nts GLUCOSE (test code = 2217) 58 MG/DL BUN (test code = 2208) 19 MG/DL CREATININE (test code = 2214) 1.40 MG/DL eGFR (2020 CKD-EPI) (test co de = 03759) 47 ML/MIN/1.73 CALC BUN/CREAT (test code = [...] (test code = 2219) 11 U/L HEMOGLOBIN [id number] 00:00:00* Test Item Value Reference Range Interpretation Comme nts HEMOGLOBIN A1c (test code = 48532) 10.8 % HEMOGLOBIN [id number] 00:00:00* Test Item Value Reference Range Interpretation Comme nts HEMOGLOBIN A1c (test code = 95392) 10.8 % HEMOGLOBIN [id number] 00:00:00* Test Item Value Reference Range Interpretation Comme nts HEMOGLOBIN A1c (test code = 85876) 10.8 % LIPID [id number] 00:00:00* Test Item Value Reference Range Interpretation Comme nts CHOLESTEROL (test code = 2210) 235 MG/DL TRIGLYCERIDES (test code = 2232) 215 MG/DL HDL CHOLESTEROL (test code = 2220) 51 MG/DL CALC LDL CHOL (test code = 2237) 148 MG/DL RISK RATIO LDL/HDL (test cod e = 2238) 2.90 RATIO LIPID [id number] 00:00:00* Test Item Value Reference Range Interpretation Comme nts CHOLESTEROL (test code = 2210) 235 MG/DL TRIGLYCERIDES (test code = 2232) 215 MG/DL HDL CHOLESTEROL (test code = 2220) 51 MG/DL CALC LDL CHOL (test code = 2237) 148 MG/DL RISK RATIO LDL/HDL (test cod e = 2238) 2.90 RATIO HEMOGLOBIN [id number] 11:23:29* Test Item Value Reference Range Interpretation Comme nts HEMOGLOBIN A1c (test code = 68234) 13.0 % 4.2-5.6 H [employer] GUIDELINES FOR HGB A1C: [...] OR LABORATORY CONSULTATION. CBC W/AUTO DIFF WITH [id number] 10:40:41* Test Item Value Reference Range Interpretation [...] = 1065) 0.0 /100 WBC'S See_Comment [Automated [employer]] The system which generated this result [...] 0.00-0.10 ABS NUCLEATED RBCS (test code = 54180) 0.00 K/UL 0.00-0.11 TSH, THIRD [id number] 06:03:58* Test Item Value Reference Range Interpretation Comme nts TSH, THIRD GENERATION (test code = 2821) 5.840 UIU/ML 0.400-4.100 H UNLESS OTHERWISE INDICATED, ALL TESTING PERFORMED [facility] [employer] PATHOLOGY [employer] [address] [place] [address] FIELD PROPERTY LOSS SPECIALIST: JAYCEE RAMIREZ M.D. CLIA NUMBER [id number] [facility] [place]. [id number] LIPID [id number] 05:12:52* Test Item Value Reference Range Interpretation [...] SPECIMENS. FOR MOREINFORMATION, SEE CLIENT ANNOUNCEMENT AT [email or web address] CalcLDL-C RISK RATIO LDL/HDL (test code = 2238) 4.13 RATIO <3.22 H UNABLE TO DONNA CULATE COMPREHENSIVE METABOLIC [id number] 05:12:52* Test Item Value Reference Range Interpretation Comme nts GLUCOSE (test code = 2217) 304 MG/DL 70-99 H BUN (test code = 2208) 26 MG/DL 6-20 H CREATININE (test code = 2214) 1.81 MG/DL 0.60-1.30 H eGFR (2020 CKD-EPI) (test code = 14873) 34 ML/MIN/1.73 >60 L CALC BUN/CREAT (test code = 2235) 14 RATIO 6-28 SODIUM (test code = 2231) 137 MEQ/L 133-146 POTASSIUM (test code = 2228) 4.7 MEQ/L 3.5-5.4 CHLORIDE (test code = 2215) 99 MEQ/L 95-107 CARBON DIOXIDE (test code = 2206) 26 MEQ/L 19-31 CALCIUM (test code = 2209) 8.7 MG/DL 8.5-10.5 PROTEIN, TOTAL (test code = 222) 6.9 G/DL 6.1-8.3 ALBUMIN (test code = 220) 3.4 G/DL 3.5-5.2 L CALC GLOBULIN (test [...] = 2219) 13 U/L 5-40 COMPREHENSIVE METABOLIC [id number] 00:00:00* Test Item Value Reference Range Interpretation Comme nts GLUCOSE (test code = 2217) 304 MG/DL BUN (test code = 2208) 26 MG/DL CREATININE (test code = 2214) 1.81 MG/DL eGFR (2020 CKD-EPI) (test co de = 29950) 34 ML/MIN/1.73 CALC BUN/CREAT (test code = 223) 14 RATIO SODIUM (test code = 223) 137 MEQ/L POTASSIUM (test code = 2228) [...] code = 2219) 13 U/L COMPREHENSIVE METABOLIC [id number] 00:00:00* Test Item Value Reference Range Interpretation Comme nts GLUCOSE (test code = 2217) 304 MG/DL BUN (test code = 2208) 26 MG/DL CREATININE (test code = 2214) 1.81 MG/DL eGFR (2020 CKD-EPI) (test co de = 46927) 34 ML/MIN/1.73 CALC BUN/CREAT (test code = [...] ALT (test code = 2219) 13 U/L [id number] 00:00:00* Test Item Value Reference Range Interpretation Comme nts TSH, THIRD GENERATION (test code = 2821) 5.840 UIU/ML [id number] 00:00:00* Test Item Value Reference Range Interpretation Comme nts TSH, THIRD GENERATION (test code = 2821) 5.840 UIU/ML [id number] 00:00:00* Test Item Value Reference Range Interpretation Comme nts TSH, THIRD GENERATION (test code = 2821) 5.840 UIU/ML CBC W/AUTO [id number] 00:00:00* Test Item Value Reference Range Interpretation [...] ABS NUCLEATED RBCS (test cod e = 36723) 0.00 K/UL CBC W/AUTO [id number] 00:00:00* Test Item Value Reference Range Interpretation [...] ABS NUCLEATED RBCS (test cod e = 15602) 0.00 K/UL CBC W/AUTO [id number] 00:00:00* Test Item Value Reference Range Interpretation [...] ABS NUCLEATED RBCS (test cod e = 02295) 0.00 K/UL HEMOGLOBIN [id number] 00:00:00* Test Item Value Reference Range Interpretation Comme nts HEMOGLOBIN A1c (test code = 69731) 13.0 % HEMOGLOBIN [id number] 00:00:00* Test Item Value Reference Range Interpretation Comme nts HEMOGLOBIN A1c (test code = 98363) 13.0 % HEMOGLOBIN [id number] 00:00:00* Test Item Value Reference Range Interpretation Comme nts HEMOGLOBIN A1c (test code = 37260) 13.0 % LIPID [id number] 00:00:00* Test Item Value Reference Range Interpretation Comme nts CHOLESTEROL (test code = 2210) 278 MG/DL TRIGLYCERIDES (test code = 2232) 553 MG/DL HDL CHOLESTEROL (test code = 2220) 38 MG/DL CALC LDL CHOL (test code = 2237) (NOTE) MG/DL RISK RATIO LDL/HDL (test cod e = 2238) 4.13 RATIO LIPID [id number] 00:00:00* Test Item Value Reference Range Interpretation Comme nts CHOLESTEROL (test code = 2210) 278 MG/DL TRIGLYCERIDES (test code = 2232) 553 MG/DL HDL CHOLESTEROL (test code = 2220) 38 MG/DL CALC LDL CHOL (test code = 2237) (NOTE) MG/DL RISK RATIO LDL/HDL (test cod e = 2238) 4.13 RATIO COMPREHENSIVE METABOLIC [id number] 00:00:00* Test Item Value Reference Range Interpretation Comme nts GLUCOSE (test code = 2217) 304 MG/DL BUN (test code = 2208) 26 MG/DL CREATININE (test code = 2214) 1.81 MG/DL eGFR (2020 CKD-EPI) (test co de = 42127) 34 ML/MIN/1.73 CALC BUN/CREAT (test code = [...] code = 2219) 13 U/L COMPREHENSIVE METABOLIC [id number] 00:00:00* Test Item Value Reference Range Interpretation Comme nts GLUCOSE (test code = 2217) 304 MG/DL BUN (test code = 2208) 26 MG/DL CREATININE (test code = 2214) 1.81 MG/DL eGFR (2020 CKD-EPI) (test co de = 25657) 34 ML/MIN/1.73 CALC BUN/CREAT (test code = [...] ALT (test code = 2219) 13 U/L [id number] 00:00:00* Test Item Value Reference Range Interpretation Comme nts TSH, THIRD GENERATION (test code = 2821) 5.840 UIU/ML [id number] 00:00:00* Test Item Value Reference Range Interpretation Comme nts TSH, THIRD GENERATION (test code = 2821) 5.840 UIU/ML [id number] 00:00:00* Test Item Value Reference Range Interpretation Comme nts TSH, THIRD GENERATION (test code = 2821) 5.840 UIU/ML CBC W/AUTO [id number] 00:00:00* Test Item Value Reference Range Interpretation [...] ABS NUCLEATED RBCS (test cod e = 47101) 0.00 K/UL CBC W/AUTO [id number] 00:00:00* Test Item Value Reference Range Interpretation [...] ABS NUCLEATED RBCS (test cod e = 15080) 0.00 K/UL CBC W/AUTO [id number] 00:00:00* Test Item Value Reference Range Interpretation [...] ABS NUCLEATED RBCS (test cod e = 70098) 0.00 K/UL HEMOGLOBIN [id number] 00:00:00* Test Item Value Reference Range Interpretation Comme nts HEMOGLOBIN A1c (test code = 19574) 13.0 % HEMOGLOBIN [id number] 00:00:00* Test Item Value Reference Range Interpretation Comme nts HEMOGLOBIN A1c (test code = 83519) 13.0 % HEMOGLOBIN [id number] 00:00:00* Test Item Value Reference Range Interpretation Comme nts HEMOGLOBIN A1c (test code = 02999) 13.0 % LIPID [id number] 00:00:00* Test Item Value Reference Range Interpretation Comme nts CHOLESTEROL (test code = 2210) 278 MG/DL TRIGLYCERIDES (test code = 2232) 553 MG/DL HDL CHOLESTEROL (test code = 2220) 38 MG/DL CALC LDL CHOL (test code = 2237) (NOTE) MG/DL RISK RATIO LDL/HDL (test cod e = 2238) 4.13 RATIO LIPID [id number] 00:00:00* Test Item Value Reference Range Interpretation Comme nts CHOLESTEROL (test code = 2210) 278 MG/DL TRIGLYCERIDES (test code = 2232) 553 MG/DL HDL CHOLESTEROL (test code = 2220) 38 MG/DL CALC LDL CHOL (test code = 2237) (NOTE) MG/DL RISK RATIO LDL/HDL (test cod e = 2238) 4.13 RATIO LIPID [id number] 04:41:06* Test Item Value Reference Range Interpretation [...] SPECIMENS. FOR MOREINFORMATION, SEE CLIENT ANNOUNCEMENT AT [email or web address] CalcLDL-C RISK RATIO LDL/HDL (test code = 2238) 3.83 RATIO <3.22 H UNABLE TO DONNA CULATE COMPREHENSIVE METABOLIC [id number] 04:41:06* Test Item Value Reference Range Interpretation Comme nts GLUCOSE (test code = 2217) 87 MG/DL 70-99 BUN (test code = 2208) 19 MG/DL 6-20 CREATININE (test code = 2214) 1.31 MG/DL 0.60-1.30 H EFFECTIVE 2020, [facility] HAS IMPLEMENTED THE NKF-ASN RECOMMENDED KD-EPI EGFR REFIT CALCULATION THAT DOES NOT INCLUDE A COEFFICIENT FORRACE. FOR MORE INFORMATION, SEE ANNOUNCEMENT [email or web address] eGFR (2020 CKD-EPI) (test code = 31694) 51 ML/MIN/1.73 >60 L CALC BUN/CREAT (test code = 2235) 15 RATIO 6-28 SODIUM (test code = 223) 142 MEQ/L 133-146 POTASSIUM (test code = 2228) 3.8 MEQ/L 3.5-5.4 CHLORIDE (test code = 2215) 106 MEQ/L 95-107 CARBON DIOXIDE (test code = 2206) 24 MEQ/L 19-31 CALCIUM (test code = 2209) 9.1 MG/DL 8.5-10.5 PROTEIN, TOTAL (test code = 222) 7.2 G/DL 6.1-8.3 ALBUMIN (test code = [...] 5-40 UNLESS OTHERWISE INDICATED, ALL TESTING PERFORMED [facility]ENTERLINXochitl ([employer] [employer] PATHOLOGY [employer] [address] [place] [address] FI[employer] PROPERTY LOSS SPECIALIST: JAYCEE RAMIREZ M.D. [place] NUMBER [id number] [facility] [place]. [id number] HEMOGLOBIN [id number] 02:36:52* Test Item Value Reference Range Interpretation Comme nts HEMOGLOBIN A1c (test code = 47245) 7.3 % 4.2-5.6 H [employer] GUIDELINES FOR HGB A1C: [...] ALTERNATE TESTING OR LABORATORY CONSULTATION. COMPREHENSIVE METABOLIC [id number] 00:00:00* Test Item Value Reference Range Interpretation Comme nts GLUCOSE (test code = 2217) 87 MG/DL BUN (test code = 2208) 19 MG/DL CREATININE (test code = 2214) 1.31 MG/DL eGFR (2020 CKD-EPI) (test co de = 55648) 51 ML/MIN/1.73 CALC BUN/CREAT (test code = [...] code = 2219) 13 U/L COMPREHENSIVE METABOLIC [id number] 00:00:00* Test Item Value Reference Range Interpretation Comme nts GLUCOSE (test code = 2217) 87 MG/DL BUN (test code = 2208) 19 MG/DL CREATININE (test code = 2214) 1.31 MG/DL eGFR (2020 CKD-EPI) (test co de = 96967) 51 ML/MIN/1.73 CALC BUN/CREAT (test code = [...] (test code = 2219) 13 U/L HEMOGLOBIN [id number] 00:00:00* Test Item Value Reference Range Interpretation Comme nts HEMOGLOBIN A1c (test code = 12922) 7.3 % HEMOGLOBIN [id number] 00:00:00* Test Item Value Reference Range Interpretation Comme nts HEMOGLOBIN A1c (test code = 95497) 7.3 % HEMOGLOBIN [id number] 00:00:00* Test Item Value Reference Range Interpretation Comme nts HEMOGLOBIN A1c (test code = 91875) 7.3 % LIPID [id number] 00:00:00* Test Item Value Reference Range Interpretation Comme nts CHOLESTEROL (test code = 2210) 230 MG/DL TRIGLYCERIDES (test code = 2232) 455 MG/DL HDL CHOLESTEROL (test code = 2220) 35 MG/DL CALC LDL CHOL (test code = 2237) (NOTE) MG/DL RISK RATIO LDL/HDL (test cod e = 2238) 3.83 RATIO LIPID [id number] 00:00:00* Test Item Value Reference Range Interpretation Comme nts CHOLESTEROL (test code = 2210) 230 MG/DL TRIGLYCERIDES (test code = 2232) 455 MG/DL HDL CHOLESTEROL (test code = 2220) 35 MG/DL CALC LDL CHOL (test code = 2237) (NOTE) MG/DL RISK RATIO LDL/HDL (test cod e = 2238) 3.83 RATIO COMPREHENSIVE METABOLIC [id number] 00:00:00* Test Item Value Reference Range Interpretation Comme nts GLUCOSE (test code = 2217) 87 MG/DL BUN (test code = 2208) 19 MG/DL CREATININE (test code = 2214) 1.31 MG/DL eGFR (2020 CKD-EPI) (test co de = 46594) 51 ML/MIN/1.73 CALC BUN/CREAT (test code = [...] code = 2219) 13 U/L COMPREHENSIVE METABOLIC [id number] 00:00:00* Test Item Value Reference Range Interpretation Comme nts GLUCOSE (test code = 2217) 87 MG/DL BUN (test code = 2208) 19 MG/DL CREATININE (test code = 2214) 1.31 MG/DL eGFR (2020 CKD-EPI) (test co de = 85633) 51 ML/MIN/1.73 CALC BUN/CREAT (test code = [...] (test code = 2219) 13 U/L HEMOGLOBIN [id number] 00:00:00* Test Item Value Reference Range Interpretation Comme nts HEMOGLOBIN A1c (test code = 88935) 7.3 % HEMOGLOBIN [id number] 00:00:00* Test Item Value Reference Range Interpretation Comme nts HEMOGLOBIN A1c (test code = 58541) 7.3 % HEMOGLOBIN [id number] 00:00:00* Test Item Value Reference Range Interpretation Comme nts HEMOGLOBIN A1c (test code = 74424) 7.3 % LIPID [id number] 00:00:00* Test Item Value Reference Range Interpretation Comme nts CHOLESTEROL (test code = 2210) 230 MG/DL TRIGLYCERIDES (test code = 2232) 455 MG/DL HDL CHOLESTEROL (test code = 2220) 35 MG/DL CALC LDL CHOL (test code = 2237) (NOTE) MG/DL RISK RATIO LDL/HDL (test cod e = 2238) 3.83 RATIO LIPID [id number] 00:00:00* Test Item Value Reference Range Interpretation Comme nts CHOLESTEROL (test code = 2210) 230 MG/DL TRIGLYCERIDES (test code = 2232) 455 MG/DL HDL CHOLESTEROL (test code = 2220) 35 MG/DL CALC LDL CHOL (test code = 2237) (NOTE) MG/DL RISK RATIO LDL/HDL (test cod e = 2238) 3.83 RATIO COMPREHENSIVE METABOLIC [id number] 00:00:00* Test Item Value Reference Range Interpretation Comme nts GLUCOSE (test code = 2217) 147 MG/DL BUN (test code = 2208) 23 MG/DL CREATININE (test code = 2214) 1.27 MG/DL eGFR AMER. (test cod e = ) 59 ML/MIN/1.73 eGFR NON- AMER. (test code = 18747) 51 ML/MIN/1.73 CALC BUN/CREAT (test code = 2235) 18 RATIO SODIUM (test code = 2231) 141 MEQ/L POTASSIUM (test code = 2228) 4.7 MEQ/L CHLORIDE (test code = 2215) 106 MEQ/L CARBON DIOXIDE (test code = 2206) 26 MEQ/L CALCIUM (test code = 2209) 9.1 MG/DL PROTEIN, TOTAL (test code = 2228) 7.4 G/DL ALBUMIN (test code = 2201) 3.8 G/DL CALC GLOBULIN (test code = 2240) 3.6 G/DL CALC A/G RATIO (test code = 2234) 1.1 RATIO BILIRUBIN, TOTAL (test code = 2206) <0.2 MG/DL ALKALINE PHOSPHATASE (test code = 4) 92 U/L AST (test code = 2218) 18 U/L ALT (test code = 2219) 11 U/L HEMOGLOBIN [id number] 00:00:00* Test Item Value Reference Range Interpretation Comme nts HEMOGLOBIN A1c (test code = 19964) 7.2 % HEMOGLOBIN [id number] 00:00:00* Test Item Value Reference Range Interpretation Comme nts HEMOGLOBIN A1c (test code = 07316) 7.2 % HEMOGLOBIN [id number] 00:00:00* Test Item Value Reference Range Interpretation Comme nts HEMOGLOBIN A1c (test code = 11076) 7.2 % LIPID [id number] 00:00:00* Test Item Value Reference Range Interpretation Comme nts CHOLESTEROL (test code = 2210) 250 MG/DL TRIGLYCERIDES (test code = 2232) 312 MG/DL HDL CHOLESTEROL (test code = 2220) 41 MG/DL CALC LDL CHOL (test code = 2237) 161 MG/DL RISK RATIO LDL/HDL (test cod e = 2238) 3.93 RATIO LIPID [id number] 00:00:00* Test Item Value Reference Range Interpretation Comme nts CHOLESTEROL (test code = 2210) 250 MG/DL TRIGLYCERIDES (test code = 2232) 312 MG/DL HDL CHOLESTEROL (test code = 2220) 41 MG/DL CALC LDL CHOL (test code = 2237) 161 MG/DL RISK RATIO LDL/HDL (test cod e = 2238) 3.93 RATIO COMPREHENSIVE METABOLIC [id number] 00:00:00* Test Item Value Reference Range Interpretation Comme nts GLUCOSE (test code = 2217) 147 MG/DL BUN (test code = 2208) 23 MG/DL CREATININE (test code = 2214) 1.27 MG/DL eGFR AMER. (test cod e = 36747) 59 ML/MIN/1.73 eGFR NON- AMER. (test code = 66250) 51 ML/MIN/1.73 CALC BUN/CREAT (test code = [...] code = 2219) 11 U/L COMPREHENSIVE METABOLIC [id number] 00:00:00* Test Item Value Reference Range Interpretation Comme nts GLUCOSE (test code = 2217) 147 MG/DL BUN (test code = 2208) 23 MG/DL CREATININE (test code = 2214) 1.27 MG/DL eGFR AMER. (test cod e = 43565) 59 ML/MIN/1.73 eGFR NON- AMER. (test code = 79938) 51 ML/MIN/1.73 CALC BUN/CREAT (test code = [...] (test code = 2219) 11 U/L HEMOGLOBIN [id number] 00:00:00* Test Item Value Reference Range Interpretation Comme nts HEMOGLOBIN A1c (test code = 55704) 7.2 % HEMOGLOBIN [id number] 00:00:00* Test Item Value Reference Range Interpretation Comme nts HEMOGLOBIN A1c (test code = 36796) 7.2 % HEMOGLOBIN [id number] 00:00:00* Test Item Value Reference Range Interpretation Comme nts HEMOGLOBIN A1c (test code = 19480) 7.2 % LIPID [id number] 00:00:00* Test Item Value Reference Range Interpretation Comme nts CHOLESTEROL (test code = 2210) 250 MG/DL TRIGLYCERIDES (test code = 2232) 312 MG/DL HDL CHOLESTEROL (test code = 2220) 41 MG/DL CALC LDL CHOL (test code = 2237) 161 MG/DL RISK RATIO LDL/HDL (test cod e = 2238) 3.93 RATIO LIPID [id number] 00:00:00* Test Item Value Reference Range Interpretation Comme nts CHOLESTEROL (test code = 2210) 250 MG/DL TRIGLYCERIDES (test code = 2232) 312 MG/DL HDL CHOLESTEROL (test code = 2220) 41 MG/DL CALC LDL CHOL (test code = 2237) 161 MG/DL RISK RATIO LDL/HDL (test cod e = 2238) 3.93 RATIO COMPREHENSIVE METABOLIC [id number] 00:00:00* Test Item Value Reference Range Interpretation Comme nts GLUCOSE (test code = 2217) 147 MG/DL BUN (test code = 2208) 23 MG/DL CREATININE (test code = 2214) 1.27 MG/DL eGFR AMER. (test cod e = 24116) 59 ML/MIN/1.73 eGFR NON- AMER. (test code = 24493) 51 ML/MIN/1.73 CALC BUN/CREAT (test code = [...] = 2219) 11 U/L PAP TEST, THINPREP, [id number] 00:00:00* Test Item Value Reference Range Interpretation Comme nts SOURCE: (test code = 8001) Endocervical SLIDES: (test code = 801) 1 LMP: (test code = 8021) 06/27/2020 SPECIMEN ADEQUACY: (test code = 08819) (NOTE) INTERPRETATION: (test code = 53775) NILM/NO EPITH. ABNORMALITY;SEE BELOW PARK ACTIVITIES COORDINATOR: (test code = 8101) Gudelia Pino, CT(ASCP) QC TECHNOLOGIST: (test code = 8111) Justice ConnerSCT(ASCP)IAC LOCATION: (test code = 63667) (NOTE) CPT: (test code = 8140) (NOTE) PAP TEST, THINPREP, [id number] 00:00:00* Test Item Value Reference Range Interpretation Comme nts SOURCE: (test code = 8001) Endocervical SLIDES: (test code = 8011) 1 LMP: (test code = 8021) 06/27/2020 SPECIMEN ADEQUACY: (test code = 60211) (NOTE) INTERPRETATION: (test code = 77895) NILM/NO EPITH. ABNORMALITY;SEE BELOW PARK ACTIVITIES COORDINATOR: (test code = 8101) OSCAR Heaton(ASCP) QC TECHNOLOGIST: (test code = 8111) [facility] LOCATION: (test code = 16268) (NOTE) CPT: (test code = 8140) (NOTE) PAP TEST, THINPREP, [id number] 00:00:00* Test Item Value Reference Range Interpretation Comme nts SOURCE: (test code = 8001) Endocervical SLIDES: (test code = 8011) 1 LMP: (test code = 8021) 06/27/2020 SPECIMEN ADEQUACY: (test code = 15629) (NOTE) INTERPRETATION: (test code = 00362) NILM/NO EPITH. ABNORMALITY;SEE BELOW PARK ACTIVITIES COORDINATOR: (test code = 8101) OSCAR Heaton(ASCP) QC TECHNOLOGIST: (test code = 8111) [facility]IAC LOCATION: (test code = 08899) (NOTE) CPT: (test code = 8140) (NOTE) PAP TEST, THINPREP, [id number] 00:00:00* Test Item Value Reference Range Interpretation Comme nts SOURCE: (test code = 8001) Endocervical SLIDES: (test code = 8011) 1 LMP: (test code = 8021) 06/27/2020 SPECIMEN ADEQUACY: (test code = 75110) (NOTE) INTERPRETATION: (test code = 05722) NILM/NO EPITH. ABNORMALITY;SEE BELOW PARK ACTIVITIES COORDINATOR: (test code = 8101) OSCAR Heaton(ASCP) QC TECHNOLOGIST: (test code = 8111) [facility]AC LOCATION: (test code = 09514) (NOTE) CPT: (test code = 8140) (NOTE) CULTURE, [id number] 00:00:00* Test Item Value Reference Range Interpretation Comme nts CULTURE, URINE (test code = 51735) SPECIMEN NUMBER: [id number] CULTURE, [id number] 00:00:00* Test Item Value Reference Range Interpretation Comme nts CULTURE, URINE (test code = 44114) SPECIMEN NUMBER: [id number] CULTURE, [id number] 00:00:00* Test Item Value Reference Range Interpretation Comme [facility] CULTURE, URINE (test code = 35796) SPECIMEN NUMBER: [id number] CULTURE, [id number] 00:00:00* Test Item Value Reference Range Interpretation Comme nts CULTURE, URINE (test code = 88817) SPECIMEN NUMBER: [id number] HPV HIGH RISK WITH GENOTYPE, [id number] 00:00:00* Test Item Value Reference Range Interpretation Comme nts HPV HIGH RISK INTERP (test c ode = 77217) POSITIVE HPV 16 (test code = 62306) NEGATIVE HPV 18 (test code = 71366) NEGATIVE HPV, HR, OTHER GENOTYPES (te st code = 50652) POSITIVE HPV HIGH RISK WITH GENOTYPE, [id number] 00:00:00* Test Item Value Reference Range Interpretation Comme nts HPV HIGH RISK INTERP (test c ode = 94251) POSITIVE HPV 16 (test code = 02648) NEGATIVE HPV 18 (test code = 58432) NEGATIVE HPV, HR, OTHER GENOTYPES (te st code = 78452) POSITIVE HPV HIGH RISK WITH GENOTYPE, [id number] 00:00:00* Test Item Value Reference Range Interpretation Comme nts HPV HIGH RISK INTERP (test c ode = 87611) POSITIVE HPV 16 (test code = 17109) NEGATIVE HPV 18 (test code = 97401) NEGATIVE HPV, HR, OTHER GENOTYPES (te st code = 02289) POSITIVE HPV HIGH RISK WITH GENOTYPE, [id number] 00:00:00* Test Item Value Reference Range Interpretation Comme nts HPV HIGH RISK INTERP (test c ode = 84610) POSITIVE HPV 16 (test code = 25010) NEGATIVE HPV 18 (test code = 74551) NEGATIVE HPV, HR, OTHER GENOTYPES (te st code = 33910) POSITIVE VITAMIN D, 25 [id number] 00:00:00* Test Item Value Reference Range Interpretation Comme [facility] VITAMIN D, 25 OH (test code = 4958) TEST NOT PERFORMED NG/ML VITAMIN D, 25 [id number] 00:00:00* Test Item Value Reference Range Interpretation Comme [facility] VITAMIN D, 25 OH (test code = 4958) TEST NOT PERFORMED NG/ML VITAMIN D, 25 [id number] 00:00:00* Test Item Value Reference Range Interpretation Comme nts VITAMIN D, 25 OH (test code = 4958) TEST NOT PERFORMED NG/ML VITAMIN D, 25 [id number] 00:00:00* Test Item Value Reference Range Interpretation Comme nts VITAMIN D, 25 OH (test code = 4958) TEST NOT PERFORMED NG/ML CBC W/AUTO [id number] 00:00:00* Test Item Value Reference Range Interpretation [...] ABS NUCLEATED RBCS (test cod e = 12066) 0.00 K/UL CBC W/AUTO [id number] 00:00:00* Test Item Value Reference Range Interpretation [...] ABS NUCLEATED RBCS (test cod e = 91016) 0.00 K/UL CBC W/AUTO [id number] 00:00:00* Test Item Value Reference Range Interpretation [...] ABS NUCLEATED RBCS (test cod e = 35327) 0.00 K/UL CBC W/AUTO [id number] 00:00:00* Test Item Value Reference Range Interpretation [...] ABS NUCLEATED RBCS (test cod e = 55377) 0.00 K/UL CBC W/AUTO [id number] 00:00:00* Test Item Value Reference Range Interpretation [...] ABS NUCLEATED RBCS (test cod e = 54446) 0.00 K/UL CBC W/AUTO [id number] 00:00:00* Test Item Value Reference Range Interpretation [...] ABS NUCLEATED RBCS (test cod e = 03483) 0.00 K/UL COMPREHENSIVE METABOLIC [id number] 00:00:00* Test Item Value Reference Range Interpretation Comme nts GLUCOSE (test code = 2217) 300 MG/DL BUN (test code = 2208) 23 MG/DL CREATININE (test code = 2214) 1.24 MG/DL eGFR AMER. (test cod e = 62940) 60 ML/MIN/1.73 eGFR NON- AMER. (test code = 56800) 52 ML/MIN/1.73 CALC BUN/CREAT (test code = [...] code = 2219) 12 U/L COMPREHENSIVE METABOLIC [id number] 00:00:00* Test Item Value Reference Range Interpretation Comme nts GLUCOSE (test code = 2217) 300 MG/DL BUN (test code = 2208) 23 MG/DL CREATININE (test code = 2214) 1.24 MG/DL eGFR AMER. (test cod e = 04694) 60 ML/MIN/1.73 eGFR NON- AMER. (test code = 67203) 52 ML/MIN/1.73 CALC BUN/CREAT (test code = [...] ALT (test code = 2219) 12 U/L [id number] 00:00:00* Test Item Value Reference Range Interpretation Comme nts TSH, THIRD GENERATION (test code = 2821) 6.280 UIU/ML [id number] 00:00:00* Test Item Value Reference Range Interpretation Comme nts TSH, THIRD GENERATION (test code = 2821) 6.280 UIU/ML [id number] 00:00:00* Test Item Value Reference Range Interpretation Comme nts TSH, THIRD GENERATION (test code = 2821) 6.280 UIU/ML HEMOGLOBIN [id number] 00:00:00* Test Item Value Reference Range Interpretation Comme nts HEMOGLOBIN A1c (test code = 28212) 11.5 % HEMOGLOBIN [id number] 00:00:00* Test Item Value Reference Range Interpretation Comme nts HEMOGLOBIN A1c (test code = 25689) 11.5 % HEMOGLOBIN [id number] 00:00:00* Test Item Value Reference Range Interpretation Comme nts HEMOGLOBIN A1c (test code = 21832) 11.5 % LIPID [id number] 00:00:00* Test Item Value Reference Range Interpretation Comme nts CHOLESTEROL (test code = 2210) 260 MG/DL TRIGLYCERIDES (test code = 2232) 353 MG/DL HDL CHOLESTEROL (test code = 2220) 40 MG/DL CALC LDL CHOL (test code = 2237) 160 MG/DL RISK RATIO LDL/HDL (test cod e = 2238) 4.00 RATIO LIPID [id number] 00:00:00* Test Item Value Reference Range Interpretation Comme nts CHOLESTEROL (test code = 2210) 260 MG/DL TRIGLYCERIDES (test code = 2232) 353 MG/DL HDL CHOLESTEROL (test code = 2220) 40 MG/DL CALC LDL CHOL (test code = 2237) 160 MG/DL RISK RATIO LDL/HDL (test cod e = 2238) 4.00 RATIO COMPREHENSIVE METABOLIC [id number] 00:00:00* Test Item Value Reference Range Interpretation Comme nts GLUCOSE (test code = 2217) 300 MG/DL BUN (test code = 2208) 23 MG/DL CREATININE (test code = 2214) 1.24 MG/DL eGFR AMER. (test cod e = 29578) 60 ML/MIN/1.73 eGFR NON- AMER. (test code = 67596) 52 ML/MIN/1.73 CALC BUN/CREAT (test code = [...] code = 2219) 12 U/L COMPREHENSIVE METABOLIC [id number] 00:00:00* Test Item Value Reference Range Interpretation Comme nts GLUCOSE (test code = 2217) 300 MG/DL BUN (test code = 2208) 23 MG/DL CREATININE (test code = 2214) 1.24 MG/DL eGFR AMER. (test cod e = 95987) 60 ML/MIN/1.73 eGFR NON- AMER. (test code = 96226) 52 ML/MIN/1.73 CALC BUN/CREAT (test code = [...] ALT (test code = 2219) 12 U/L [id number] 00:00:00* Test Item Value Reference Range Interpretation Comme nts TSH, THIRD GENERATION (test code = 2821) 6.280 UIU/ML [id number] 00:00:00* Test Item Value Reference Range Interpretation Comme nts TSH, THIRD GENERATION (test code = 2821) 6.280 UIU/ML [id number] 00:00:00* Test Item Value Reference Range Interpretation Comme nts TSH, THIRD GENERATION (test code = 2821) 6.280 UIU/ML HEMOGLOBIN [id number] 00:00:00* Test Item Value Reference Range Interpretation Comme nts HEMOGLOBIN A1c (test code = 28057) 11.5 % HEMOGLOBIN [id number] 00:00:00* Test Item Value Reference Range Interpretation Comme nts HEMOGLOBIN A1c (test code = 95465) 11.5 % HEMOGLOBIN [id number] 00:00:00* Test Item Value Reference Range Interpretation Comme nts HEMOGLOBIN A1c (test code = 49722) 11.5 % LIPID [id number] 00:00:00* Test Item Value Reference Range Interpretation Comme nts CHOLESTEROL (test code = 2210) 260 MG/DL TRIGLYCERIDES (test code = 2232) 353 MG/DL HDL CHOLESTEROL (test code = 2220) 40 MG/DL CALC LDL CHOL (test code = 2237) 160 MG/DL RISK RATIO LDL/HDL (test cod e = 2238) 4.00 RATIO LIPID [id number] 00:00:00* Test Item Value Reference Range Interpretation Comme nts CHOLESTEROL (test code = 2210) 260 MG/DL TRIGLYCERIDES (test code = 2232) 353 MG/DL HDL CHOLESTEROL (test code = 2220) 40 MG/DL CALC LDL CHOL (test code = 2237) 160 MG/DL RISK RATIO LDL/HDL (test cod e = 2238) 4.00 RATIO COMPREHENSIVE METABOLIC [id number] 00:00:00* Test Item Value Reference Range Interpretation Comme nts GLUCOSE (test code = 2217) 313 MG/DL BUN (test code = 2208) 15 MG/DL CREATININE (test code = 2214) 0.71 MG/DL eGFR AMER. (test cod e = 73545) 123 ML/MIN/1.73 eGFR NON- AMER. (test code = 20834) 106 ML/MIN/1.73 CALC BUN/CREAT (test code = [...] code = 2219) 11 U/L COMPREHENSIVE METABOLIC [id number] 00:00:00* Test Item Value Reference Range Interpretation Comme nts GLUCOSE (test code = 2217) 313 MG/DL BUN (test code = 2208) 15 MG/DL CREATININE (test code = 2214) 0.71 MG/DL eGFR AMER. (test cod e = 66097) 123 ML/MIN/1.73 eGFR NON- AMER. (test code = 20523) 106 ML/MIN/1.73 CALC BUN/CREAT (test code = [...] (test code = 2219) 11 U/L LIPID [id number] 00:00:00* Test Item Value Reference Range Interpretation Comme nts CHOLESTEROL (test code = 2210) 244 MG/DL TRIGLYCERIDES (test code = 2232) 376 MG/DL HDL CHOLESTEROL (test code = 2220) 48 MG/DL CALC LDL CHOL (test code = 2237) 121 MG/DL RISK RATIO LDL/HDL (test cod e = 2238) 2.52 RATIO LIPID [id number] 00:00:00* Test Item Value Reference Range Interpretation [...] (test code = 2821) 17.0 UIU/ML HEMOGLOBIN [id number] 00:00:00* Test Item Value Reference Range Interpretation Comme nts HEMOGLOBIN A1c (test code = 24630) 12.3 % HEMOGLOBIN [id number] 00:00:00* Test Item Value Reference Range Interpretation Comme nts HEMOGLOBIN A1c (test code = 15282) 12.3 % HEMOGLOBIN [id number] 00:00:00* Test Item Value Reference Range Interpretation Comme nts HEMOGLOBIN A1c (test code = 18951) 12.3 % CBC W/AUTO [id number] 00:00:00* Test Item Value Reference Range Interpretation [...] code = 1015) 408 K/UL CBC W/AUTO [id number] 00:00:00* Test Item Value Reference Range Interpretation [...] code = 1015) 408 K/UL CBC W/AUTO [id number] 00:00:00* Test Item Value Reference Range Interpretation [...] code = 1015) 408 K/UL COMPREHENSIVE METABOLIC [id number] 00:00:00* Test Item Value Reference Range Interpretation Comme nts GLUCOSE (test code = 2217) 313 MG/DL BUN (test code = 2208) 15 MG/DL CREATININE (test code = 2214) 0.71 MG/DL eGFR AMER. (test cod e = 59024) 123 ML/MIN/1.73 eGFR NON- AMER. (test code = 60874) 106 ML/MIN/1.73 CALC BUN/CREAT (test code = [...] code = 2219) 11 U/L COMPREHENSIVE METABOLIC [id number] 00:00:00* Test Item Value Reference Range Interpretation Comme nts GLUCOSE (test code = 2217) 313 MG/DL BUN (test code = 2208) 15 MG/DL CREATININE (test code = 2214) 0.71 MG/DL eGFR AMER. (test cod e = 02121) 123 ML/MIN/1.73 eGFR NON- AMER. (test code = 67572) 106 ML/MIN/1.73 CALC BUN/CREAT (test code = [...] (test code = 2219) 11 U/L LIPID [id number] 00:00:00* Test Item Value Reference Range Interpretation Comme nts CHOLESTEROL (test code = 2210) 244 MG/DL TRIGLYCERIDES (test code = 2232) 376 MG/DL HDL CHOLESTEROL (test code = 2220) 48 MG/DL CALC LDL CHOL (test code = 2237) 121 MG/DL RISK RATIO LDL/HDL (test cod e = 2238) 2.52 RATIO LIPID [id number] 00:00:00* Test Item Value Reference Range Interpretation [...] (test code = 2821) 17.0 UIU/ML HEMOGLOBIN [id number] 00:00:00* Test Item Value Reference Range Interpretation Comme nts HEMOGLOBIN A1c (test code = 72430) 12.3 % HEMOGLOBIN [id number] 00:00:00* Test Item Value Reference Range Interpretation Comme nts HEMOGLOBIN A1c (test code = 96780) 12.3 % HEMOGLOBIN [id number] 00:00:00* Test Item Value Reference Range Interpretation Comme nts HEMOGLOBIN A1c (test code = 58705) 12.3 % CBC W/AUTO [id number] 00:00:00* Test Item Value Reference Range Interpretation [...] code = 1015) 408 K/UL CBC W/AUTO [id number] 00:00:00* Test Item Value Reference Range Interpretation [...] code = 1015) 408 K/UL CBC W/AUTO [id number] 00:00:00* Test Item Value Reference Range Interpretation [...] Notes Date/Time Note Provider Source 2023-02-16 11:07:50 zLsHtMRdCV9AAzT93Ep+ s6A4LihsASe2yeg6EFVCO+ /X7Xoq5v6Cu3sIe75m8Cck5121-45-65Y64:07:50F ormatting of this note is different from [...] da josé TLH w/ bilateral salpingectomy per ks followed with anterior repair and SSLF, along [...] N/A 3Performed by Keshawn Jones MD at [facility] ASCTUBAL LIGATIONUPPER GI ENDOSCOPY, BIOPSY N/A 3Performed by Keshawn Jones MD at [facility] ASCCurrent Outpatient Medications on File Prior to [...] Once Gideon Rodriguez MD 1.25 mg at 09/22/23 1419AllergiesAllergen ReactionsHydrocodoneOther reaction(s): Nausea/VomitingOther reaction(s): Not availableSocial [...] TLH w/ bilateral salpingectomy on 03/02/23 at [facility] in [facility] per k[place] followed with anterior repair and SSLF, along [...] pain meds escribed today (norco and motrin). 58132-6Wnzsfgc and physical ujjlIO5894-15-72N31:43:46History and physical noteTXT1.2.840.051281.1.13.131.2.7.2.47713 9|[id number] for patient drlf46074-2Ikxordb and physical noteLNNARRATIVEFormatted C-CDA narrative [facility] [facility] Cen[id number]- 01-09T16:43:461.2.840.793234.1.72.3.15|1.2 .840.181913.1.13.131.2.7.2.727879_[id number] 1 [facility] Notes Date/Time Note Provider Source 2023-03-17 15:59:24 l/Mac/p1bmfkOlCkSbdPGbU8LAD572jiCYD 4ntWvy/pfimSXVctGPMp6OAaz9rtY1760-8 03-17T15:59:24 Chief ComplaintPatient presents withHematology Follow-upF/u hospital 69352-3Nowek MryxBI0356-69-94Q22:19:30Nurse NoteTXT1.2.840.759250.1.13.131.2.7. 2.001918|[id number] for patient pdje90906-1Lsleu NoteLNNARRATIVEFormatted C-CDA narrative [id number] Oworu MA [facility]27[address] [facility].QWKFVNQKSURFCTDWDQ9642863842CB XE5787-38-98G08:19:301.2.840.769001 .1.72.3.15|1.2.840.581765.1.13.131. 2.7.2.727879_[id number] Tana Bates MA, II [facility] 2023-02-24 01:23:43 m6l1BsTeQ0ERAbYNUb0PgWxdMftK8IfR6vr b2u4IEAV7UGYKN6FhtuScTCr1rYPS8825-7 01:23:43 Pt given printed and verbal discharge [...] with steady gait, in no apparent distress 52249-6Yahmtozpo department TukyQM5841-90-10D16:25:15[facility] NoteTXT1.2.840.196782.1.13.104.2.7. 2.080065|[id number] for patient dllp94233-7ExvuXBELUPEWDJREtzpvolbp C-CDA narrative bbyn045329176Cwdykyw A Diaz RN[id number] 6EZWTTVRPLTWETKTYTUWWGK8670-94-51D7 1:25:151.2.840.398852.1.72.3.15|1.2 .840.750217.1.13.104.2.7.2.727879_2 [id number] Mary Chung RN [facility] 2023-02-23 23:02:11 TsacsypyyPaNJGAkLLsIS9fyl802NkHAYNU iKTLI0x41jnHDHKs2uYFwIa5Gr9et8297-9 3:02:11 Report given to KARELY Chung 40792-7Phjunwjrc department ArvyGF9476-35-79T59:02:24Emerv[facility] department NoteTXT1.2.840.499394.1.13.104.2.7. 2.762641|[id number] for patient mqgt93372-6WkijIOKMPWANVRKVhbatknyg C-CDA narrative [id number] M Herrera RN[id number] 0CUBMQGXTJQJIHTGOPDQXZV8850-14-58T5 3:02:241.2.840.890427.1.72.3.15|1.2 .840.443344.1.13.104.2.7.2.727879_2 [id number] Abbi Patel RN [facility] 2023-02-23 22:17:43 PTfaa3B67Q94Ur2jNaQP5G1uXHCK86BK47r k0uqISfDfU5AKhofvUMaSEu15G2uP2073-2 02-23T22:17:43 Patient aware of urine sample needed. Unable to provide sample at this time. Urine cup at bedside. 12805-3Ifasousyu department YcysZR5653-91-36P62:18:14Emergency department NoteTXT1.2.840.948875.1.13.104.2.7. 2.538998|[id number] for patient caxd69431-7DprjZYZYVXSWWYLQolzjlefu C-CDA narrative [id number]-Hrcax McInnis RN[address] Vq[id number] 1WPBEZWQMCMLXLPDMSPUKYW4879-03-49H5 2:18:141.2.840.171763.1.72.3.15|1.2 .840.366494.1.13.104.2.7.2.727879_2 [id number] Pamela Vasquez RN [facility] 2023-02-23 21:34:10 jeTgic3+rXq3b+2W4WDfXF8bw6JSj11zrqs qRgT4sw4vdqaZzJM7JjEA2MDkiRnf2865-7 02-23T21:34:10Summary: Triage CC: patient is having vomiting and abdominal pain that started at 0600 upper mid abdominal pain, patient is vomiting in triagePMHx: diabetes and HTNPSH:noneMEDS:glipizide, esomerprazole, latanoprost, levothyroxine, sitagliptin, atorvastatin, IronLMP: 02/23/23Tetanus: unknownAwake, alert, oriented, resp reg unlabored, skin warm, color appropriate for race, moves all ext without difficulty, amb with without assistanceAppears in none distress 44047-6Wqblnwrvj department Triage rqnkPZ7559-20-62R69:40:00Ememulticare [facility] department Triage noteTXT1.2.840.969947.1.13.104.2.7. 2.226598|[id number] for patient osji90326-8Fgrmihvyf department NoteLNNARRATIVEFormatted C-CDA narrative [id number] Schroeder RN[id number] 9QFMNEMGAWJFUCJQPLWZNOM7968-84-85I6 1:40:001.2.840.335192.1.72.3.15|1.2 .840.439987.1.13.104.2.7.2.727879_2 [id number] Gudelia Graf RN [facility] 2023-02-16 13:13:20 25vYpPIUftSeHI4F6Xa+KPeOVt+t0ybnoHz fwrUNaBcaT2eVMZW4VL2hZIP47UOI6053-5 3:13:20 Chief ComplaintPatient presents withPre-[place] [address]-3Jnsnw YotuNP3635-47-89I93:28:09Nurse NoteTXT1.2.840.467299.1.13.131.2.7. 2.291675|[id number] for patient mxcl38768-0Upzun NoteLNNARRATIVEFormatted C-CDA narrative textOJUniversity Hospitals Parma Medical Center27[address] [facility] Healthcare [id number] GB5593-01-92W80:28:091.2.840.005449 .1.72.3.15|1.2.840.133576.1.13.131. 2.7.2.727879_[id number] [facility] 2023-02-16 11:06:27 4HN+HdMKFZ5ZGo8WJeOonyQ1ChYoJ8svdii qjHLrVIaPBMbf+dsac/ugTDJ9O8jN0990-9 1:06:27 Chief ComplaintPatient [place] [address]-5Rmsgj QacuRR9169-02-66H54:06:38Nurse NoteTXT1.2.840.782083.1.13.131.2.7. 2.234635|[id number] for patient dimj65699-2Kdpye NoteLNNARRATIVEFormatted C-CDA narrative [id number] M Velo CMA [facility] HOSPITALEYEPAshtab[facility]27[address] [facility].RGIXSGKOCUDMKTNTUT0168111859TC OS0589-92-26S59:06:381.2.840.203526 .1.72.3.15|1.2.840.007843.1.13.131. 2.7.2.727879_[id number] Estelita Maya CMA I [facility] 2023-02-03 14:18:43 WRTKowu0OeTOlOhaKjaUB+/jbxIr2nKPiqy vfMlZb/YLe/my0iDUvbAv2mcuSPvz9677-8 :18:43 Chief ComplaintPatient presents withConsultationReferral for Pain in both hands, Erosive osteoarthritis [place] [address]-3Cstms BhreCO0657-35-09Z09:19:20Nurse NoteTXT1.2.840.782106.1.13.131.2.7. 2.884785|376408143WJYmicmicad for patient xaih74382-2Icftn NoteLNNARRATIVEFormatted C-CDA narrative text[id number] PJ9278-51-66S60:19:201.2.840.974680 .1.72.3.15|1.2.840.814020.1.13.131. 2.7.2.727879_[id number] [facility] 2022-10-27 14:21:58 V42v/hjyeCu+i5d2TU+JDYg8RdyGM3S0YNI cisE5ndyIxU1WOYN8HuEkuh82GLIt3664-7 4:21:58 Chief Complaint Patient presents with OTHER cystocele 67309-9Nptif QtxtGJ5522-04-04E78:23:03Nurse NoteTXT1.2.840.748630.1.13.131.2.7. 2.550812|633451449ZPXqvkzoewa for patient dzai09802-9Etjwq Note[id number] XV6603-00-89M43:23:031.2.840.938473 .1.72.3.15|1.2.840.437411.1.13.131. 2.7.2.727879_[id number] [facility] 2022-10-26 14:32:30 sjIY9NmnMPoVmqPspKP520TbQRxRcJS7SYA etx2ss2diusZvfw1Z+XGFyvq3pBzs8311-9 10-26T14:32:30 Chief Complaint Patient presents with Follow-Up Visit Follow up- right chronic lisfranc injury Jul 2021. She has Cd with images. Also Today had an Xray on file. She wants to know if she need surgery. Tabitha Manuellectronically signed by Tabitha Hill at 10/26/2022 2:33 PM EAI18139-6Bvdho UxpcER5685-85-55Z56:33:36Nurse NoteTXT1.2.840.410519.1.13.131.2.7. 2.103336|[id number] for patient letv15173-0Slamj [id number] Clinic Health System[facility] Red [facility]edar2727 [facility] [id number] XA8362-39-25A80:33:361.2.840.192411 .1.72.3.15|1.2.840.275309.1.13.131. 2.7.2.727879_[id number] Tabitha Hill [facility] 2022-09-03 15:25:19 TpMFNBwBdb1zbxWLZG1icAvnjbxfOtO9UGo TlYjRRz8fBQGUNYyilUYCsjTjzk0X9494-3 09-03T15:25:19 Chief Complaint Patient presents with Vaginal Problem States she feels a lump on the inside of her vagina states there is pressure, when she sits down she can feel the mass, states no bleeding, no odor or discharge change. Has been ongoing for 1 week Jiovana Jose F, OUTER DIAMETER GRINDER TOOL I Patient has not taken her medication today 02053-6Gpivm LlsbPC6468-73-95J14:25:42Nurse NoteTXT1.2.840.360020.1.13.131.2.7. 2.643719|[id number] for patient [id number] FL2388-22-45D23:25:421.2.840.618006 .1.72.3.15|1.2.840.407499.1.13.131. 2.7.2.727879_[id number] [facility]
[2023-03-28 02:31] LABS: Absolute Lymphocytes (CBC) 1.7 K/uL (0.7-4.9); Lymphocytes % 13.4 % (15.3-44.8); MCV 91.7 fL (80-100); MPV 7.7 fL (7.6-11.3); Platelets 543 thou/uL (152-406); RBC Red Blood Cell Count 3.27 M/uL (3.86-4.86)
[2023-03-28 02:47] LABS: Albumin 3.2 g/dL (3.4-5.0); Bilirubin Total 0.3 mg/dL (0.2-1.0); Potassium 4.7 mEq/L (3.5-5.1); Protein, Total 8.3 g/dL (6.4-8.2)
--- NOTE | 2023-03-28 03:05 | EDPHYS ---
Physician Documentation [facility] Name: Elsy Bradford Age: 48 yrs Sex: Female : 1975 Arrival Date: 03/28/2023 Time: 01:17 Bed 20 Private MD: ED Physician HPI: 03/28 02:10 This 48 yrs old Female presents to ER via Ambulatory with complaints of ec2 Nausea/Vomiting, Abdominal Pain. 02:10 Patient arrives today for evaluation of upper abdominal pain. Patient with history of ec2 gastroparesis, patient been having pain for several days. Patient reports some associated nausea and vomiting. Patient reports no marijuana use. Denies any alcohol use. Patient reports no urinary complaints, no cough or cold symptoms, no difficulty breathing, no chest pain. Patient reports history of cholecystectomy.. Historical: - Allergies: : HYDROCODONE; cg - PMHx: :57 Diabetes - NIDDM; GERD; High Cholesterol; Thyroid problem; Hypertension; cg - PSHx: :57 Cholecystectomy (March 01); cg - Immunization history:: Adult Immunizations up to date. - Social history:: Smoking status: Patient denies any tobacco usage or history of. Patient/guardian denies using alcohol, street drugs. ROS: 02:10 Constitutional: as per hpi ec2 Exam: 02:10 Constitutional: GEN: NAD Head: atraumatic Eyes: EOMI Ears: External ears are ec2 normal. CV: regular rate LUNGS: no respiratory distress ABD: non-distended, soft, tender in the epigastrium, no guarding, not rigid SKIN: no evidence of rashes MSK: no evidence of trauma NEURO: moves all extremities equally Vital Signs: 01:54 BP 172 / 89; Pulse 95; Resp 20; Temp 98.9; Pulse Ox 100% ; Height 4 ft. 11 in. ; Pain cg 11/17; 02:30 BP 155 / 89; Pulse 87; Resp 16; Pulse Ox 100% ; pf1 02:44 Pulse 86; Resp 17; Pulse Ox 100% ; tm6 03:20 BP 136 / 82; Pulse 69; Resp 16; Pulse Ox 100% on R/A; Pain 0/10; pf1 01:54 Pain Scale: Adult cg 03:20 Pain Scale: Adult pf1 MDM: 01:22 Patient medically screened. ec2 02:10 Data reviewed: vital signs. ED course: Patient arrives today for evaluation of upper ec2 abdominal pain. Examination remarkable for abdominal findings as noted above. Will obtain lab work, urine studies, treat the pain symptoms and reassess the patient. Currently considered gastroparesis, viral gastroenteritis, low suspicion for obstruction, low suspicion for pancreatitis, low suspicion for appendicitis.. 02:49 ED course: CBC with slight leukocytosis noted. Metabolic profile with appropriate ec2 electrolytes, renal dysfunction with a creatinine of 2.69 noted. Lipase within normal ranges. . 02:51 ED course: Looking at external records, renal dysfunction appears similar to previous.. ec2 03:04 ED course: On reassessment patient with resolution of symptoms. Suspect gastroparesis ec2 causing patient's symptoms. Will discharge home and have her follow-up with primary care doctor and GI. Did initially order urine however patient reports no urinary complaints, will defer urine workup.. 03/28 02:09 Order name: CBC with Diff; Complete Time: 02:48 ec2 03/28 02:09 Order name: CMP; Complete Time: 02:48 ec2 03/28 02:09 Order name: Lipase; Complete Time: 02:48 ec2 03/28 02:09 Order name: IV Saline Lock; Complete Time: 02:18 ec2 03/28 02:09 Order name: Labs collected and sent; Complete Time: 02:18 ec2 Administered Medications: 02:18 Drug: Haloperidol IVP 5 mg IVP once Route: IVP; Site: left forearm; cg 03:00 Follow up: Response: No adverse reaction; Marked relief of symptoms; Pain is decreased; pf1 RASS: Alert and Calm (0) 02:19 Drug: NS 0.9% IV 1000 ml IV at 1 bolus Per protocol; 1000 mL bolus Route: IV; Rate: 1 cg bolus; Site: left forearm; 03:20 Follow up: Response: No adverse reaction; Marked relief of symptoms; IV Status: pf1 Completed infusion 02:19 Drug: TORadol - Ketorolac IVP 15 mg IVP once Route: IVP; Site: left forearm; cg 03:00 Follow up: Response: No adverse reaction; Marked relief of symptoms; Pain is decreased pf1 Disposition Summary: 03/28/23 03:04 Discharge Ordered Notes: Location: Home ec2 Condition: Stable ec2 Diagnosis - Gastroparesis ec2 Followup: ec2 - With: Private Physician - When: - Reason: Recheck today's complaints Discharge Instructions: - Discharge Summary Sheet ec2 - Gastroparesis ec2 Forms: - Medication Reconciliation Form ec2 - Thank You Letter ec2 - Antibiotic Education ec2 - Prescription Opioid Use ec2 - Patient Portal Instructions ec2 - Leadership Thank You Letter ec2 Signatures: Dispatcher [employer] Leticia Glez RN RN Elza Wagoner RN RN pf1 Lew Mohan MD MD ec2 Corrections: (The following items were deleted from the chart) 02:49 02:10 ED course: Patient arrives today for evaluation of upper abdominal pain. ec2 Examination remarkable for abdominal findings as noted above. Will obtain lab work, urine studies, treat the pain symptoms and reassess the patient. Currently considered gastroparesis, gastroenteritis, low suspicion for obstruction, low suspicion for pancreatitis, low suspicion for appendicitis.. ec2 03:10 02:10 Urinalysis+U.LAB.BRZ ordered. [facility]
--- NOTE | 2023-03-28 03:05 | ER ---
Nurse's Notes [facility] Name: Elsy Bradford Age: 48 yrs Sex: Female : 1975 Arrival Date: 03/28/2023 Time: 01:17 Bed 20 Private MD: Diagnosis: Gastroparesis Presentation: 03/28 01:54 Chief complaint: Patient states: C/o of severe ABD pain x 2 months off and on. Vomited cg several times today. No diarrhea. Coronavirus screen: Vaccine status: Patient reports receiving the 2nd dose of the covid vaccine. Ebola Screen: Patient negative for fever greater than or equal to 101.5 degrees Fahrenheit, and additional compatible Ebola Virus Disease symptoms. Initial Sepsis Screen: Does the patient meet any 2 criteria? No. Patient's initial sepsis screen is negative. 01:54 Method Of Arrival: Ambulatory cg 01:54 Initial Sepsis Screen: Does the patient have a suspected source of infection? No. pf1 Patient's initial sepsis screen is negative. 01:54 Risk Assessment: Do you want to hurt yourself or someone else? Patient reports no pf1 desire to harm self or others. 01:54 Acuity: ALIN 3 pf1 Triage Assessment: 01:57 General: Appears distressed, uncomfortable, well nourished, Behavior is anxious, cg Reports chills for 0-12 hours. Pain: Complains of pain in abdomen Pain currently is 10 out of 10 on a pain scale. Quality of pain is described as aching, Pain began 1 day ago. Is intermittent, Noted to be grimacing, moaning, Also complains of Current management. GI: Abdomen is round Bowel sounds present X 4 quads. Abd is soft Reports lower abdominal pain, upper abdominal pain, nausea. Historical: - Allergies: 01:57 HYDROCODONE; cg - PMHx: 01:57 Diabetes - NIDDM; GERD; High Cholesterol; Thyroid problem; Hypertension; cg - PSHx: :57 Cholecystectomy (March 01); cg - Immunization history:: Adult Immunizations up to date. - Social history:: Smoking status: Patient denies any tobacco usage or history of. Patient/guardian denies using alcohol, street drugs. Screenin:49 [facility] ED Fall Risk Assessment (Adult) History of falling in the last 3 months, pf1 including since admission No falls in past 3 months (0 pts) Confusion or Disorientation No (0 pts) Intoxicated or Sedated No (0 pts) Impaired Gait No (0 pts) Mobility Assist Device Used No (0 pt) Altered Elimination No (0 pt) Score/Fall Risk Level 0 - 2 = Low Risk Oriented to surroundings, Maintained a safe environment, Educated pt \T\ family on fall prevention, incl call for assistance when getting out of bed, Assessed \T\ reinforced patient's understanding of fall precautions, Provided non-skid footwear, Hourly rounding (assess needs \T\ fall precautionary measures) done, Used ambulatory aids as needed (educated on \T\ assisted with), Used gait belt as appropriate. 01:49 Abuse screen: Denies threats or abuse. Nutritional screening: No deficits noted. pf1 Tuberculosis screening: No symptoms or risk factors identified. Assessment: 02:30 Reassessment: Patient appears in no apparent distress at this time. Patient and/or pf1 family updated on plan of care and expected duration. Pain level reassessed. Patient is alert, oriented x 3, equal unlabored respirations, skin warm/dry/pink. Patient states feeling better. Patient states symptoms have improved. Vital Signs: 01:54 BP 172 / 89; Pulse 95; Resp 20; Temp 98.9; Pulse Ox 100% ; Height 4 ft. 11 in. ; Pain cg 10/10; 02:30 BP 155 / 89; Pulse 87; Resp 16; Pulse Ox 100% ; pf1 02:44 Pulse 86; Resp 17; Pulse Ox 100% ; tm6 03:20 BP 136 / 82; Pulse 69; Resp 16; Pulse Ox 100% on R/A; Pain 0/10; pf1 01:54 Pain Scale: Adult cg 03:20 Pain Scale: Adult pf1 ED Course: 01:20 Patient arrived in ED. wm 01:22 Lew Mohan MD is Attending Physician. ec2 01:49 Patient has correct armband on for positive identification. Placed in gown. Bed in low pf1 position. Call light in reach. Side rails up X 1. 01:49 Arm band placed on right wrist. pf1 02:18 CBC with Diff Sent. pm6 02:18 CMP Sent. pm6 02:18 Lipase Sent. pm6 02:18 Inserted saline lock: 20 gauge in left forearm, using aseptic technique. Blood pm6 collected. 02:31 CBC with Diff Sent. cg 02:31 CMP Sent. cg 02:31 Lipase Sent. cg 03:20 IV discontinued, intact, bleeding controlled, No redness/swelling at site. Pressure pf1 dressing applied. 03:20 No provider procedures requiring assistance completed. pf1 03:20 Provided Education on: follow up . pf1 06:48 Triage completed. pf1 Administered Medications: 02:18 Drug: Haloperidol IVP 5 mg IVP once Route: IVP; Site: left forearm; cg 03:00 Follow up: Response: No adverse reaction; Marked relief of symptoms; Pain is decreased; pf1 RASS: Alert and Calm (0) 02:19 Drug: NS 0.9% IV 1000 ml IV at 1 bolus Per protocol; 1000 mL bolus Route: IV; Rate: 1 cg bolus; Site: left forearm; 03:20 Follow up: Response: No adverse reaction; Marked relief of symptoms; IV Status: pf1 Completed infusion 02:19 Drug: TORadol - Ketorolac IVP 15 mg IVP once Route: IVP; Site: left forearm; cg 03:00 Follow up: Response: No adverse reaction; Marked relief of symptoms; Pain is decreased pf1 Medication: 03:20 VIS not applicable for this client. pf1 Outcome: 03:04 Discharge ordered by . ec2 03:19 Discharged to home ambulatory, with family, pf1 03:19 Condition: improved 03:19 Discharge instructions given to patient, family, Instructed on discharge instructions, follow up and referral plans. Demonstrated understanding of instructions, follow-up care, 03:20 Patient left the ED. pf1 Signatures: Leticia Cheung, KARELY RN Ksenia Burgos Pamala, RN RN pf1 Lew Mohan MD MD ec2 Júnior Andres RN RN 6 Zaida Peace pm6 Corrections: (The following items were deleted from the chart) 03:10 02:18 Urinalysis+U.LAB.BRZ drawn and sent. pm6 EDMS 06:46 06:46 Patient has correct armband on for positive identification. Placed in gown. Bed pf1 in low position. Call light in reach. Side rails up X 1. pf1
[2023-03-28 03:32] VITALS: BP 172/89; TEMP 98.9; O2SAT 100
== END ==
LOC: ER 01:17
DX: K31.84 Gastroparesis (principal); Z88.5 Allergy status to narcotic agent
CPT/HCPCS: 85025; 36415; 83690; 80053; J1630; J7030

== ENCOUNTER 2023-04-04 13:25 | Inpatient (IN) | payer OTHER ==
--- OUTSIDE RECORDS SUMMARY | 2023-04-04 13:35 | XMS REPORT | Continuity of Care Document ---
Author Name Unknown Address [address] [facility] [address] [place] [address] [facility] thconnect Address [address] [facility] [address] [place] [address] Care Team Providers Care Clinic Charge Nurse Name Role Phone ANDREW VERDUZCO Primary Care Physician GIDEON Danielson Attending Clinician Unavailable DEANNE KAUR Attending Clinician Unavail able MATEO ANTHONY Attending Clinician Unavailable ERIC DURBIN Attending Clinician Unavailab KESHAWN Adan Attending Clinician Unavailable ADRIANO AGEE Attending Clinician Unavailable IVIS HOOVER Attending Clinician Unavailable KEMAR RODRIGUEZ Attending Clinician Unavailab ESTHER Marsh Attending Clinician Unavailable KEATON PATIÑO Attending Clinician Unavailable Keaton Patiño MD Attending Clinician MD ELIJAH Attending Clinician Unavailab TANGELA Mendoza Attending Clinician Unavailab le ONLY, [facility] HEM/ONC NURSE Attending Clinician Lila vailable LAB47 Attending Clinician Unavailable LIZETH FLORES Attending Clinician Unavailable 1, [facility] Attending Clinic mann Unavailable SEBASTIAN CHUNG Attending Clinician Unava ilable ANDREI MAR Attending Clinician Unavailable LAB90 Attending Clinician Unavailable TOMOGRAPHY, [facility] Attending Cl inician Unavailable SHMUEL HAGEN Attending Clinician Unavailable NUHA WINSTON Attending Clinician Unav ailable VF53 Attending Clinician Unavailable LEONID ROSE Attending Clinician Unava ilable JORGE CHEEK Attending Clinician Unavailable IVT, GABY Attending Clinician Unavailable CARLTON HERNANDEZ Attending Clinician Unavailab ISMA Zimmerman Attending Clinician Unavailable INFUSION, [facility] Attending Clinician Unavailable ANGELA BELTRAN Attending Clinician Unavailable ZAIN DIOR Attending Clinician Unavailable TOMOGRAPHY, [facility] Attending Clini brennon Unavailable MATTHEW ASHFORD Attending Clinician Unavailable PHOEBE ROWE Attending Clinician Unavailable ANDREW VERDUZCO Attending Clinician Unavailab ANDREW Valenzuela Attending Clinician Unavailab ROSETTA Hernández Attending Clinician Unavailable Malini Muñoz LMSW Attending Clinician [phone] Doctor Unassigned, [place] Attending Clinician U navailable UNKNOWN, ATTENDING Attending Clinician Unavailab LEXA Watson Attending Clinician Unavailable Lexa Goff DO Attending Clinician [phone] PATRIA LEVY Attending Clinician Unavailab Santos Colón Attending Clinician Unavailable KEATON PATIÑO Admitting Clinician Unavailable LEXA GOFF Admitting Clinician Unavailable Santos MOISE Admitting Clinician Unavailable Payers Payer Name Policy Type Policy Number Effective Date Expirati on Date Source [employer] MP [employer]: 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 9 [id number] 2022 00:00:00 [employer] 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 [id number] 2023 00:00:00 Problems Condition Name Condition Details [...] 27.0-27.9, adult Disease Active 08-20 00:00: 00 [facility] Screening examinatio n for STD (sexually transmitte d disease) Screening examinatio n for STD (sexually transmitte d disease) Disease Active 08-20 00:00: 00 [facility] Elevated blood pressure reading without diagnosis of hypertensi on Elevated blood pressure reading without diagnosis of hypertensi on Disease Active 08-20 00:00: 00 [facility] BMI 27.0-27.9, adult BMI 27.0-27.9, adult Disease Active 08-20 00:00: 00 [facility] Pain pelvic Pain pelvic Disease Active 08-20 00:00: 00 [facility] Allergies, Adverse Reactions, Alerts Allergy Name Allergy Type Status Severity Reaction(s) Onset Date Inactive Date Treating Clinician Comments Source Hydrocod one Propensi ty to adverse reaction s Active 04-09 00:00: 00 Other reaction( s): Nausea/Vo mitingOth er reaction( s): Not available Melissa cates NO KNOWN ALLERGIE S Drug Class Active [facility] Social History Social Habit Start Date Stop Date Quantity Comments Source Gender identity Trisha Grant - External Sexual orientation [facility] Alcohol intake 2023-03-17 00:00:00 2023-03-17 00:00:00 Ex-drinker [...] of Social function 2021-09-30 00:00:00 2021-09-30 00:00:00 [facility] Exposure to SARS-CoV-2 (event) 2021-09-19 00:00:00 2021-09-29 13:11:00 Not sure [facility] History SDOH Alcohol Frequency 2019-08-21 00:00:00 2019-08-21 00:00:00 2 [facility] History SDOH Alcohol Std Drinks 2019-08-21 00:00:00 2019-08-21 00:00:00 1 [facility] History SDOH Alcohol Binge 2019-08-21 00:00:00 2019-08-21 00:00:00 1 [facility] Alcohol Comment 2019-08-21 00:00:00 2019-08-21 00:00:00 social [facility] Sex Assigned At 1975 00:00:00 1975 00:00:00 Melissa Ugalde Smoking Status Start Date Stop Date Source Ex-smoker 2022-09-02 00:00:00 2022-09-02 00:00:00 Santos Ugalde Smokes tobacco daily 2022-04-03 00:00:00 Melissa Ugalde Never smoked tobacco [facility] Medications Ordered Medication Name Filled Medication Name [...] 1 dose, On Wed02/24/23 at 0045, FRANK [facility] morpHINE (4 mg/mL) injection 4 mg 02-24 06:45: 00 02-24 06:45 :00 No 4mg 4 mg, Slow IV Push, ONCE, 1 dose, On Wed02/24/23 at 0045, STAT [facility] ondansetron (ZOFRAN (PF)) injection 4 mg 02-24 06:00: 00 02-24 05:53 :00 No 4mg 4 mg, Slow IV Push, ONCE, 1 dose, On Wed02/24/23 at 0000, FRANK [facility] NaCl 0.9% (NS) IV infusion 1,000 mL 02-24 05:15: 00 Yes 1000mL at 999 mL/hr, Intravenou s, CONTINUOUS , Starting on Wed02/23/23 at 2315, Until Discontinu ed, Routine [facility] ketorolac (TORADOL) injection 30 mg 02-24 05:15: 00 02-24 04:27 :00 No 30mg 30 mg, Slow IV Push, ONCE, 1 dose, On Wed02/23/23 at 2315, Routine [facility] ondansetron (ZOFRAN (PF)) injection 4 mg 02-24 04:15: 00 02-24 04:14 :00 No 4mg 4 mg, Slow IV Push, ONCE, 1 dose, On Wed02/23/23 at 2215, FRANK [facility] maalox:diph enhydrAMINE :lidocaine 2 % viscous 1:1:1 (FIRST-MOUT HWASH BLM) oral suspension 15 mL 02-24 04:15: 00 02-24 04:13 :00 No 15mL 15 mL, Oral, ONCE, 1 dose, On Wed02/23/23 at 2215, Routine [facility] dicyclomine 20 mg tablet 02-24 00:00: 00 Yes [id number] 20mg Take 1 tablet by mouth every 6 (six) hours as needed for Abdominal pain. [facility] proMETHazin e 25 mg tablet 02-24 00:00: 00 Yes [id number] 25mg Take 1 tablet by mouth every 6 (six) hours as needed for Nausea and Vomiting (N/V). [facility] traMADoL (ULTRAM) 50 mg tablet 02-24 00:00: 00 Yes [id number] 50mg Take 1 tablet by mouth every 6 (six) hours as needed for Pain (scale 7-10). Indication s: acute pain [facility] dicyclomine 20 mg tablet 02-24 00:00: 00 02-24 00:00 :00 No [id number] 20mg Take 1 tablet by mouth every 6 (six) hours as needed for Abdominal pain. [facility] traMADoL (ULTRAM) 50 mg tablet 02-24 00:00: 00 02-24 00:00 :00 No [id number] 50mg Take 1 tablet by mouth every 6 (six) hours as needed for Pain (scale 7-10). Indication s: acute pain [facility] proMETHazin e 25 mg tablet 02-24 00:00: 00 02-24 00:00 :00 No [id number] 25mg Take 1 tablet by mouth every 6 (six) hours as needed for Nausea and Vomiting (N/V). [facility] Ondansetron HCl 4 MG oral Tablet 02-23 00:00: 00 Yes [id number] 4mg Q.[id number] 3D Take 1 tablet (4 mg total) by mouth every 8 hours as needed for nausea. Melissa cates Ondansetron HCl 4 MG oral Tablet 02-23 00:00: 00 Yes [id number] 4mg Q.[id number] 3D Take 1 tablet (4 mg total) by mouth every 8 hours as needed for nausea. Melissa cates Ibuprofen (MOTRIN) 400 MG oral Tablet 02-16 00:00: 00 Yes [id number] 400mg Q.25D Take 1 tablet (400 mg total) by mouth every 6 hours as needed. Melissa cates HYDROcodone -Acetaminop hen ([place]) 5-325 MG oral Tablet 02-16 00:00: 00 Yes [id number] 1{tbl} Q.25D Take 1 tablet by mouth every 6 hours as needed for pain. Melissa Rudy - Externa l Ibuprofen (MOTRIN) 400 MG oral Tablet 02-16 00:00: 00 Yes [id number] 400mg Q.25D Take 1 tablet (400 mg total) by mouth every 6 hours as needed. Melissa Grant - Externa l HYDROcodone -Acetaminop hen ([place]) 5-325 MG oral Tablet 02-16 00:00: 00 Yes [id number] 1{tbl} Q.25D Take 1 tablet by mouth every 6 hours as needed for pain. Melissa Grant - Externa l Ibuprofen (MOTRIN) 400 MG oral Tablet 02-16 00:00: 00 Yes [id number] 400mg Q.25D Take 1 tablet (400 mg total) by mouth every 6 hours as needed. Melissa Grant - Externa l HYDROcodone -Acetaminop hen ([place]) 5-325 MG oral Tablet 02-16 00:00: 00 Yes [id number] 1{tbl} Q.25D Take 1 tablet by mouth every 6 hours as needed for pain. Melissa Griffin Externa l Ibuprofen (MOTRIN) 400 MG oral Tablet 02-16 00:00: 00 Yes [id number] 400mg Q.25D Take 1 tablet (400 mg total) by mouth every 6 hours as needed. Melissa Grant - Externa l HYDROcodone -Acetaminop hen ([place]) 5-325 MG oral Tablet 02-16 00:00: 00 Yes [id number] 1{tbl} Q.25D Take 1 tablet by mouth every 6 hours as needed for pain. Melissa Grant - Externa l Benzonatate (Tessalon Perles) 100 MG oral Capsule 2022-02 00:00: 00 Yes [id number] 100mg Q.[id number] 3D Take 1 capsule (100 mg total) by mouth 3 times daily as needed for cough. Melissa Grant - Externa l Benzonatate (Tessalon Perles) 100 MG oral Capsule 2022-02 00:00: 00 Yes [id number] 100mg Q.[id number] 3D Take 1 capsule (100 mg total) by mouth 3 times daily as needed for cough. Melissa Uribea l Benzonatate (Tessalon Perles) 100 MG oral Capsule 2022-02 00:00: 00 Yes [id number] 100mg Q.00273883 [id number] 3D Take 1 capsule (100 mg total) by mouth 3 times daily as needed for cough. Melissa Grant - Externa l Benzonatate (Tessalon Perles) 100 MG oral Capsule 2022-02 00:00: 00 Yes [id number] 100mg Q.[id number] 3D Take 1 capsule (100 mg total) by mouth 3 times daily as needed for cough. Melissa Griffin Externa l Benzonatate (Tessalon Perles) 100 MG oral Capsule 2022-02 00:00: 00 02-16 00:00 :00 No [id number] 100mg Q.[id number] 3D Take 1 capsule (100 mg total) by mouth 3 times daily as needed for cough. Melissa cates Azithromyci n 250 MG oral Tablet 2022-02 00:00: 00 01-04 05:59 :00 No [id number] Take 2 tablets by mouth on day 1 then 1 tablet by mouth daily for 4 days thereafter .. Melissa Uribea darryn Olmesartan Medoxomil 5 MG oral Tablet 2022-02 00:00: 00 Yes 1{tbl} Take 1 tablet by mouth daily. Melissa Uribea l Olmesartan Medoxomil 5 MG oral Tablet [...] MG oral Tablet 2022-02 00:00: 00 Yes [id number] 325mg Take 1 tablet (325 mg total) by mouth daily (with breakfast) . Melissa Rudy - Externa l Ferrous Sulfate (Iron) 325 (65 Fe) MG oral Tablet 2022-02 00:00: 00 Yes [id number] 325mg Take 1 tablet (325 mg total) by mouth daily (with breakfast) . Melissa Beatricemayra - Externa l Ferrous Sulfate (Iron) 325 (65 Fe) MG oral Tablet 2022-02 00:00: 00 Yes [id number] 325mg Take 1 tablet (325 mg total) by mouth daily (with breakfast) . Melissa Rudy - Externa l Ferrous Sulfate (Iron) 325 (65 Fe) MG oral Tablet 2022-02 00:00: 00 Yes [id number] 325mg Take 1 tablet (325 mg total) by mouth daily (with breakfast) . Melissa Rudy - Externa l Ferrous Sulfate (Iron) 325 (65 Fe) MG oral Tablet 2022-02 00:00: 00 Yes [id number] 325mg Take 1 tablet (325 mg total) by mouth daily (with breakfast) . Melissa Rudy - Externa l Ferrous Sulfate (Iron) 325 (65 Fe) MG oral Tablet 2022-02 00:00: 00 Yes [id number] 325mg Take 1 tablet (325 mg total) by mouth daily (with breakfast) . Melissa cates Ferrous Sulfate (Iron) 325 (65 Fe) MG oral Tablet 2022-02 00:00: 00 Yes [id number] 325mg Take 1 tablet (325 mg total) by mouth daily (with breakfast) . Melissa Griffin Externa darryn Ferrous Sulfate (Iron) 325 (65 Fe) MG oral Tablet 2022-02 00:00: 00 Yes [id number] 325mg Take 1 tablet (325 mg total) by mouth daily (with breakfast) . Melissa cates Ferrous Sulfate (Iron) 325 (65 Fe) MG oral Tablet 2022-02 00:00: 00 Yes [id number] 325mg Take 1 tablet (325 mg total) by mouth daily (with breakfast) . Melissa cates Atorvastati n Calcium (Lipitor) 10 MG oral Tablet 2022-02 00:00: 00 Yes [id number] 3 10mg Take 1 tablet (10 mg total) by mouth nightly. Melissa cates Atorvastati n Calcium (Lipitor) 10 MG oral Tablet 2022-02 00:00: 00 Yes [id number] 3 10mg Take 1 tablet (10 mg total) by mouth nightly. Melissa cates Atorvastati n Calcium (Lipitor) 10 MG oral Tablet 2022-02 00:00: 00 Yes [id number] 3 10mg Take 1 tablet (10 mg total) by mouth nightly. Melissa cates Duloxetine HCl [address] Particles 2022-02 00:00: 00 Yes [id number] 20mg Take 1 capsule (20 mg total) by mouth daily. Melissa cates Atorvastati n Calcium (Lipitor) 10 MG oral Tablet 2022-02 00:00: 00 Yes [id number] 3 10mg Take 1 tablet (10 mg total) by mouth nightly. Melissa cates Duloxetine HCl [address] Particles 2022-02 0 00:00: 00 Yes [id number] 20mg Take 1 capsule (20 mg total) by mouth daily. Melissa cates Atorvastati n Calcium (Lipitor) 10 MG oral Tablet 2022-02 0-30 00:00: 00 Yes [id number] 3 10mg Take 1 tablet (10 mg total) by mouth nightly. Melissa cates Duloxetine HCl [address] Particles 2022-02 0-30 00:00: 00 Yes [id number] 20mg Take 1 capsule (20 mg total) by mouth daily. Melissa cates Atorvastati n Calcium (Lipitor) 10 MG oral Tablet 2022-02 0 00:00: 00 Yes [id number] 3 10mg Take 1 tablet (10 mg total) by mouth nightly. Melissa cates Duloxetine HCl [address] Particles 2022-02 0 00:00: 00 Yes [id number] 20mg Take 1 capsule (20 mg total) by mouth daily. Melissa cates Atorvastati n Calcium (Lipitor) 10 MG oral Tablet 2022-02 0 00:00: 00 Yes [id number] 3 10mg Take 1 tablet (10 mg total) by mouth nightly. Melissa cates Duloxetine HCl [address] Particles 2022-02 030 00:00: 00 Yes [id number] 20mg Take 1 capsule (20 mg total) by mouth daily. Melissa cates Atorvastati n Calcium (Lipitor) 10 MG oral Tablet 2022-02 030 00:00: 00 Yes [id number] 3 10mg Take 1 tablet (10 mg total) by mouth nightly. Melissa cates Atorvastati n Calcium (Lipitor) 10 MG oral Tablet 2022-02 0-30 00:00: 00 Yes [id number] 3 10mg Take 1 tablet (10 mg total) by mouth nightly. Melissa cates Duloxetine HCl [address] Particles 2022-02 0-30 00:00: 00 02-16 00:00 :00 No [id number] 20mg Take 1 capsule (20 mg total) by mouth daily. Melissa cates glipiZIDE 10 MG oral Tablet 2022-02 00:00: 00 Yes [id number] 10mg Take 1 tablet (10 mg total) by mouth in the morning and 1 tablet (10 mg total) in the evening. Take before meals. Melissa cates glipiZIDE 10 MG oral Tablet 2022-02 00:00: 00 Yes [id number] 10mg Take 1 tablet (10 mg total) by mouth in the morning and 1 tablet (10 mg total) in the evening. Take before meals. Melissa cates glipiZIDE 10 MG oral Tablet 2022-02 00:00: 00 Yes [id number] 10mg Take 1 tablet (10 mg total) by mouth in the morning and 1 tablet (10 mg total) in the evening. Take before meals. Melissa cates glipiZIDE 10 MG oral Tablet 2022-02 00:00: 00 Yes [id number] 10mg Take 1 tablet (10 mg total) by mouth in the morning and 1 tablet (10 mg total) in the evening. Take before meals. Melissa cates glipiZIDE 10 MG oral Tablet 2022-02 00:00: 00 Yes [id number] 10mg Take 1 tablet (10 mg total) by mouth in the morning and 1 tablet (10 mg total) in the evening. Take before meals. Melissa cates glipiZIDE 10 MG oral Tablet 2022-02 00:00: 00 Yes [id number] 10mg Take 1 tablet (10 mg total) by mouth in the morning and 1 tablet (10 mg total) in the evening. Take before meals. Melissa cates glipiZIDE 10 MG oral Tablet 2022-02 00:00: 00 Yes [id number] 10mg Take 1 tablet (10 mg total) by mouth in the morning and 1 tablet (10 mg total) in the evening. Take before meals. Melissa cates glipiZIDE 10 MG oral Tablet 2022-02 00:00: 00 Yes [id number] 10mg Take 1 tablet (10 mg total) by mouth in the morning and 1 tablet (10 mg total) in the evening. Take before meals. Melissa cates glipiZIDE 10 MG oral Tablet 2022-02 0 00:00: 00 Yes [id number] 10mg Take 1 tablet (10 mg total) [...] Delayed Release Capsule 2022-02 00:00: 00 Yes [id number] 40mg Take 1 capsule (40 mg total) by mouth every morning (before breakfast) . Melissa cates Esomeprazol e Magnesium (NexIUM) 40 MG oral Delayed Release Capsule 2022-02 00:00: 00 Yes [id number] 40mg Take 1 capsule (40 mg total) by mouth every morning (before breakfast) . Melissa cates Esomeprazol e Magnesium (NexIUM) 40 MG oral Delayed Release Capsule 2022-02 00:00: 00 Yes [id number] 40mg Take 1 capsule (40 mg total) by mouth every morning (before breakfast) . Melissa cates Esomeprazol e Magnesium (NexIUM) 40 MG oral Delayed Release Capsule 2022-02 00:00: 00 Yes [id number] 40mg Take 1 capsule (40 mg total) by mouth every morning (before breakfast) . Melissa cates Carvedilol (Coreg) 6.25 MG oral Tablet 2022-02 00:00: 00 Yes [id number] 6.25mg Take 1 tablet (6.25 mg total) by mouth in the morning and 1 tablet (6.25 mg total) in the evening. Take with meals. Melissa cates Duloxetine HCl [address] Particles 2022-02 00:00: 00 Yes [id number] 20mg Take 1 capsule (20 mg total) by mouth daily. Melissa cates Esomeprazol e Magnesium (NexIUM) 40 MG oral Delayed Release Capsule 2022-02 00:00: 00 Yes [id number] 40mg Take 1 capsule (40 mg total) by mouth every morning (before breakfast) . Melissa cates Carvedilol (Coreg) 6.25 MG oral Tablet 2022-02 00:00: 00 Yes [id number] 6.25mg Take 1 tablet (6.25 mg total) by mouth in the morning and 1 tablet (6.25 mg total) in the evening. Take with meals. Melissa cates Esomeprazol e Magnesium (NexIUM) 40 MG oral Delayed Release Capsule 2022-02 00:00: 00 Yes [id number] 40mg Take 1 capsule (40 mg total) by mouth every morning (before breakfast) . Melissa cates Carvedilol (Coreg) 6.25 MG oral Tablet 2022-02 00:00: 00 Yes [id number] 6.25mg Take 1 tablet (6.25 mg total) by mouth in the morning and 1 tablet (6.25 mg total) in the evening. Take with meals. Melissa cates Esomeprazol e Magnesium (NexIUM) 40 MG oral Delayed Release Capsule 2022-02 00:00: 00 Yes [id number] 40mg Take 1 capsule (40 mg total) by mouth every morning (before breakfast) . Melissa cates Carvedilol (Coreg) 6.25 MG oral Tablet 2022-02 00:00: 00 Yes [id number] 6.25mg Take 1 tablet (6.25 mg total) by mouth in the morning and 1 tablet (6.25 mg total) in the evening. Take with meals. Melissa cates Esomeprazol e Magnesium (NexIUM) 40 MG oral Delayed Release Capsule 2022-02 00:00: 00 Yes [id number] 40mg Take 1 capsule (40 mg total) by mouth every morning (before breakfast) . Melissa cates Carvedilol (Coreg) 6.25 MG oral Tablet 2022-02 00:00: 00 Yes [id number] 6.25mg Take 1 tablet (6.25 mg total) by mouth in the morning and 1 tablet (6.25 mg total) in the evening. Take with meals. Melissa cates Esomeprazol e Magnesium (NexIUM) 40 MG oral Delayed Release Capsule 2022-02 00:00: 00 Yes [id number] 40mg Take 1 capsule (40 mg total) by mouth every morning (before breakfast) . Melissa cates Carvedilol (Coreg) 6.25 MG oral Tablet 2022-02 00:00: 00 Yes [id number] 6.25mg Take 1 tablet (6.25 mg total) by mouth in the morning and 1 tablet (6.25 mg total) in the evening. Take with meals. Melissa cates Esomeprazol e Magnesium (NexIUM) 40 MG oral Delayed Release Capsule 2022-02 00:00: 00 Yes [id number] 40mg Take 1 capsule (40 mg total) by mouth every morning (before breakfast) . Melissa cates Carvedilol (Coreg) 6.25 MG oral Tablet 2022-02 00:00: 00 02-16 00:00 :00 No [id number] 6.25mg Take 1 tablet (6.25 mg total) by mouth in the morning and 1 tablet (6.25 mg total) in the evening. Take with meals. Melissa cates Gabapentin 100 MG oral Capsule 2022-02 00:00: 00 11-11 00:00 :00 No [id number] 100mg Take 1 capsule (100 mg total) by mouth nightly. Melissa cates Duloxetine HCl [address] Particles 2022-02 0 00:00: 00 11-11 00:00 :00 No [id number] 20mg Take 1 capsule (20 mg total) by mouth daily. Melissa cates Aspirin 81 MG oral Tablet Delayed Response 11-05 14:58: 48 Yes Take 1 tablet every day by oral route. Melissa cates Gabapentin 100 MG oral Capsule 11-02 00:00: 00 Yes [id number] 100mg Q.5D Take 1 capsule (100 mg total) by mouth 2 times daily as needed (pain). Melissa Quigleyrobbie - Jojoa l Gabapentin 100 MG oral Capsule 11-02 00:00: 00 11-11 00:00 :00 No [id number] 100mg Q.5D Take 1 capsule (100 mg total) by mouth 2 times daily as needed (pain). Melissa Uribea l Bevacizumab (AVASTIN) 100 mg/4 mL - Physician Administere d ([id number]) 10-30 19:30: 00 10-30 19:19 :00 No [id number] 101 1.25mg Melissa Uribea l Bevacizumab (AVASTIN) 100 mg/4 mL - Physician Administere d ([id number]) 10-30 19:30: 00 10-30 19:19 :00 No [id number] 101 1.25mg 1.25 mg, Physician Administer ed, ONCE, 1 dose, On Wed10/30/22 at 1430 Melissa Uribea l Bevacizumab (AVASTIN) 100 mg/4 mL - Physician Administere d ([id number]) 10-30 19:30: 00 10-30 19:19 :00 No [id number] 101 1.25mg Melissa Griffin Externa l Bevacizumab (AVASTIN) 100 mg/4 mL - Physician Administere d ([id number]) 10-30 19:30: 00 10-30 19:19 :00 No [id number] 101 1.25mg 1.25 mg, Physician Administer ed, [...] % ophthalmic Solution 10-13 00:00: 00 Yes [id number] 1[drp] Place 1 drop into both eyes nightly. Melissa Grant - Externa l Latanoprost 0.005 % ophthalmic Solution 10-13 00:00: 00 Yes [id number] 1[drp] Place 1 drop into both eyes nightly. Melissa Grant - Externa l Latanoprost 0.005 % ophthalmic Solution 0 10-13 00:00: 00 Yes [id number] 1[drp] Place 1 drop into both eyes nightly. Melissa Quigleyybold - Externa l Latanoprost 0.005 % ophthalmic Solution 0 10-13 00:00: 00 Yes [id number] 1[drp] Place 1 drop into both eyes nightly. Melissa Quigleyybold - Externa l Latanoprost 0.005 % ophthalmic Solution 10-13 00:00: 00 Yes [id number] 1[drp] Place 1 drop into both eyes nightly. Melissa Quigleyybold - Externa l Latanoprost 0.005 % ophthalmic Solution 2022-0 05 00:00: 00 Yes [id number] 1[drp] Place 1 drop into both eyes nightly. Melissa Seybold - Externa l Latanoprost 0.005 % ophthalmic Solution 2022-0 05 00:00: 00 Yes [id number] 1[drp] Place 1 drop into both eyes nightly. Melissa Seybold - Externa l Latanoprost 0.005 % ophthalmic Solution 2022-0 05 00:00: 00 Yes [id number] 1[drp] Place 1 drop into both eyes nightly. Melissa Seybold - Externa l Latanoprost 0.005 % ophthalmic Solution 2022-0 05 00:00: 00 Yes [id number] 1[drp] Place 1 drop into both eyes nightly. Melissa Seybold - Externa l Latanoprost 0.005 % ophthalmic Solution 2022-0 05 00:00: 00 Yes [id number] 1[drp] Place 1 drop into both eyes nightly. Melissa Seybold - Externa l Latanoprost 0.005 % ophthalmic Solution 2022-0 05 00:00: 00 Yes [id number] 1[drp] Place 1 drop into both eyes nightly. Melissa Seybold - Externa l Latanoprost 0.005 % ophthalmic Solution 2022-0 05 00:00: 00 Yes [id number] 1[drp] Place 1 drop into both eyes nightly. Melissa Seybold - Externa l Latanoprost 0.005 % ophthalmic Solution 2022-0 -05 00:00: 00 Yes [id number] 1[drp] Place 1 drop into both eyes nightly. Melissa Seybold - Externa l Latanoprost 0.005 % ophthalmic Solution 2022-0 9-05 00:00: 00 Yes [id number] 1[drp] Place 1 drop into both eyes nightly. Melissa Seybold - Externa l Latanoprost 0.005 % ophthalmic Solution 2022-0 -05 00:00: 00 Yes [id number] 1[drp] Place 1 drop into both eyes nightly. Melissa Seybold - Externa l Latanoprost 0.005 % ophthalmic Solution 0 -05 00:00: 00 Yes [id number] 1[drp] Place 1 drop into both eyes nightly. Melissa Quigleyybold - Externa l Latanoprost 0.005 % ophthalmic Solution 0 - 00:00: 00 Yes [id number] 1[drp] Place 1 drop into both eyes nightly. Melissa Grant - Externa l Latanoprost 0.005 % ophthalmic Solution 0 - 00:00: 00 Yes [id number] 1[drp] Place 1 drop into both eyes nightly. Melissa Quigleyybold - Externa l Latanoprost 0.005 % ophthalmic Solution 0 10-13 00:00: 00 Yes [id number] 1[drp] Place 1 drop into both eyes nightly. Melissa Grant - Externa l Latanoprost 0.005 % ophthalmic Solution 0 10-13 00:00: 00 Yes [id number] 1[drp] Place 1 drop into both eyes nightly. Melissa Grant - Externa l Atorvastati n Calcium (Lipitor) 10 MG oral Tablet 09-28 00:00: 00 Yes [id number] 3 10mg Take 1 tablet (10 mg total) by mouth nightly. Melissa Grant Externa darryn Atorvastati n Calcium (Lipitor) 10 MG oral Tablet 0 09-28 00:00: 00 Yes [id number] 3 10mg Take 1 tablet (10 mg total) by mouth nightly. Melissa Grant Externa l Atorvastati n Calcium (Lipitor) 10 MG oral Tablet 0 09-28 00:00: 00 Yes [id number] 3 10mg Take 1 tablet (10 mg total) by mouth nightly. Melissa Grant - Externa l Atorvastati n Calcium (Lipitor) 10 MG oral Tablet 0 09-28 00:00: 00 Yes [id number] 3 10mg Take 1 tablet (10 mg total) by mouth nightly. [facility] Atorvast[facility] Calcium (Lipitor) 10 MG oral Tablet 0 09-28 00:00: 00 Yes [id number] 3 10mg Take 1 tablet (10 mg total) by mouth nightly. Melissa cates Atorvastati n Calcium (Lipitor) 10 MG oral Tablet 09-28 00:00: 00 Yes [id number] 3 10mg Take 1 tablet (10 mg total) by mouth nightly. Melissa cates Atorvastati n Calcium (Lipitor) 10 MG oral Tablet 09-28 00:00: 00 Yes [id number] 3 10mg Take 1 tablet (10 mg total) by mouth nightly. Melissa cates Atorvastati n Calcium (Lipitor) 10 MG oral Tablet 09-28 00:00: 00 Yes [id number] 3 10mg Take 1 tablet (10 mg total) by mouth nightly. Melissa cates Atorvastati n Calcium (Lipitor) 10 MG oral Tablet 09-28 00:00: 00 Yes [id number] 3 10mg Take 1 tablet (10 mg total) by mouth nightly. Melissa cates Atorvastati n Calcium (Lipitor) 10 MG oral Tablet 09-28 00:00: 00 Yes [id number] 3 10mg Take 1 tablet (10 mg total) by mouth nightly. Melissa cates Atorvastati n Calcium (Lipitor) 10 MG oral Tablet 09-28 00:00: 00 Yes [id number] 3 10mg Take 1 tablet (10 mg total) by mouth nightly. Melissa cates Latanoprost 0.005 % ophthalmic Solution 09-28 00:00: 00 10-13 00:00 :00 No [id number] 1[drp] Place 1 drop into both eyes [...] mouth 2 times daily for 14 days eMlissa Griffin Externa darryn Esomeprazol e Magnesium (NexIUM) [...] MG oral Tablet 09-04 00:00: 00 Yes [id number] 4mg Q.[id number] 3D Take 1 tablet (4 mg total) by mouth every 8 hours as needed for nausea Melissa Griffin Externa darryn Ondansetron HCl 4 MG oral Tablet 09-04 00:00: 00 Yes [id number] 4mg Q.[id number] 3D Take 1 tablet (4 mg total) by mouth every 8 hours as needed for nausea Melissa Uribea darryn Ondansetron HCl 4 MG oral Tablet 09-04 00:00: 00 Yes [id number] 4mg Q.[id number] 3D Take 1 tablet (4 mg total) by mouth every 8 hours as needed for nausea Melissa Griffin Externa darryn Ondansetron HCl 4 MG oral Tablet 09-04 00:00: 00 Yes [id number] 4mg Q.[id number] 3D Take 1 tablet (4 mg total) by mouth every 8 hours as needed for nausea Melissa Griffin Externa darryn Ondansetron HCl 4 MG oral Tablet 09-04 00:00: 00 Yes [id number] 4mg Q.[id number] 3D Take 1 tablet (4 mg total) by mouth every 8 hours as needed for nausea Melissa Seybold - Externa l Ondansetron HCl 4 MG oral Tablet 09-04 00:00: 00 Yes [id number] 4mg Q.[id number] 3D Take 1 tablet (4 mg total) by mouth every 8 hours as needed for nausea Melissa Seybold - Externa l Ondansetron HCl 4 MG oral Tablet 09-04 00:00: 00 Yes [id number] 4mg Q.[id number] 3D Take 1 tablet (4 mg total) by mouth every 8 hours as needed for nausea Melissa Seybold - Externa l Ondansetron HCl 4 MG oral Tablet 09-04 00:00: 00 Yes [id number] 4mg Q.[id number] 3D Take 1 tablet (4 mg total) by mouth every 8 hours as needed for nausea Melissa Seybold - Externa l Ondansetron HCl 4 MG oral Tablet 09-04 00:00: 00 Yes [id number] 4mg Q.[id number] 3D Take 1 tablet (4 mg total) by mouth every 8 hours as needed for nausea Melissa Serobbie - Externa l Ondansetron HCl 4 MG oral Tablet 09-04 00:00: 00 Yes [id number] 4mg Q.[id number] 3D Take 1 tablet (4 mg total) by mouth every 8 hours as needed for nausea Melissa Seybold - Externa l Ondansetron HCl 4 MG oral Tablet 09-04 00:00: 00 11-11 00:00 :00 No [id number] 4mg Q.[id number] 3D Take 1 tablet (4 mg total) by mouth every 8 hours as needed for nausea Melissa Sepawelold - Externa l Aspirin 81 MG oral Tablet Delayed Response 09-03 15:14: 59 Yes Take 1 tablet every day by oral route. Melissa Seybold - Externa l Levothyroxi ne Sodium 75 MCG oral Tablet 09-02 00:00: 00 Yes [id number] 75ug Take 1 tablet (75 mcg total) by mouth daily Melissa cates Sitagliptin Phosphate (Januvia) 50 MG oral Tablet 09-02 00:00: 00 Yes [id number] 50mg Take 1 tablet (50 mg total) by mouth daily Melissa cates Levothyroxi ne Sodium 75 MCG oral Tablet 09-02 00:00: 00 Yes [id number] 75ug Take 1 tablet (75 mcg total) by mouth daily Melissa cates Sitagliptin Phosphate (Januvia) 50 MG oral Tablet 09-02 00:00: 00 Yes [id number] 50mg Take 1 tablet (50 mg total) by mouth daily Melissa cates Levothyroxi ne Sodium 75 MCG oral Tablet 09-02 00:00: 00 Yes [id number] 75ug Take 1 tablet (75 mcg total) by mouth daily Melissa cates Sitagliptin Phosphate (Febuvia) 50 MG oral Tablet 09-02 00:00: 00 Yes [id number] 50mg Take 1 tablet (50 mg total) by mouth daily Melissa cates Levothyroxi ne Sodium 75 MCG oral Tablet 09-02 00:00: 00 Yes [id number] 75ug Take 1 tablet (75 mcg total) by mouth daily Melissa cates Sitagliptin Phosphate (Febuvia) 50 MG oral Tablet 09-02 00:00: 00 Yes [id number] 50mg Take 1 tablet (50 mg total) by mouth daily Melissa cates Lansoprazol e 30 MG oral Delayed Release Capsule 09-02 00:00: 00 Yes [id number] 30mg Take 1 capsule (30 mg total) by mouth daily Melissa cates Levothyroxi ne Sodium 75 MCG oral Tablet 09-02 00:00: 00 Yes [id number] 75ug Take 1 tablet (75 mcg total) by mouth daily Melissa cates Sitagliptin Phosphate (Januvia) 50 MG oral Tablet 09-02 00:00: 00 Yes [id number] 50mg Take 1 tablet (50 mg total) by mouth daily Melissa Griffin Externa darryn Lansoprazol e 30 MG oral Delayed Release Capsule 09-02 00:00: 00 Yes [id number] 30mg Take 1 capsule (30 mg total) by mouth daily Melissa rGiffin Externa darryn Levothyroxi ne Sodium 75 MCG oral Tablet 09-02 00:00: 00 Yes [id number] 75ug Take 1 tablet (75 mcg total) by mouth daily Melissa Griffin Externa darryn Sitagliptin Phosphate (Januvia) 50 MG oral Tablet 09-02 00:00: 00 Yes [id number] 50mg Take 1 tablet (50 mg total) by mouth daily Melissa Griffin Externa darryn Lansoprazol e 30 MG oral Delayed Release Capsule 09-02 00:00: 00 Yes [id number] 30mg Take 1 capsule (30 mg total) by mouth daily Melissa Griffin Externa darryn Levothyroxi ne Sodium 75 MCG oral Tablet 09-02 00:00: 00 Yes [id number] 75ug Take 1 tablet (75 mcg total) by mouth daily Melissa Uribea darryn Sitagliptin Phosphate (Januvia) 50 MG oral Tablet 09-02 00:00: 00 Yes [id number] 50mg Take 1 tablet (50 mg total) by mouth daily Melissa Uribea darryn Lansoprazol e 30 MG oral Delayed Release Capsule 09-02 00:00: 00 Yes [id number] 30mg Take 1 capsule (30 mg total) by mouth daily Melissa Griffin Externa darryn Levothyroxi ne Sodium 75 MCG oral Tablet 09-02 00:00: 00 Yes [id number] 75ug Take 1 tablet (75 mcg total) by mouth daily Melissa Griffin Externa darryn Sitagliptin Phosphate (Januvia) 50 MG oral Tablet 09-02 00:00: 00 Yes [id number] 50mg Take 1 tablet (50 mg total) by mouth daily Melissa Griffin Externa darryn Lansoprazol e 30 MG oral Delayed Release Capsule 09-02 00:00: 00 Yes [id number] 30mg Take 1 capsule (30 mg total) by mouth daily Melissa Uribea darryn Levothyroxi ne Sodium 75 MCG oral Tablet 09-02 00:00: 00 Yes [id number] 75ug Take 1 tablet (75 mcg total) by mouth daily Melissa Uribea darryn Sitagliptin Phosphate (Januvia) 50 MG oral Tablet 09-02 00:00: 00 Yes [id number] 50mg Take 1 tablet (50 mg total) by mouth daily Melissa cates Lansoprazol e 30 MG oral Delayed Release Capsule 09-02 00:00: 00 Yes [id number] 30mg Take 1 capsule (30 mg total) by mouth daily Melissa Uribea darryn Levothyroxi ne Sodium 75 MCG oral Tablet 09-02 00:00: 00 Yes [id number] 75ug Take 1 tablet (75 mcg total) by mouth daily Melissa cates Sitagliptin Phosphate (Januvia) 50 MG oral Tablet 09-02 00:00: 00 Yes [id number] 50mg Take 1 tablet (50 mg total) by mouth daily Melissa cates Lansoprazol e 30 MG oral Delayed Release Capsule 09-02 00:00: 00 Yes [id number] 30mg Take 1 capsule (30 mg total) by mouth daily Melissa cates Levothyroxi ne Sodium 75 MCG oral Tablet 09-02 00:00: 00 Yes [id number] 75ug Take 1 tablet (75 mcg total) by mouth daily Melissa cates Sitagliptin Phosphate (Januvia) 50 MG oral Tablet 09-02 00:00: 00 Yes [id number] 50mg Take 1 tablet (50 mg total) by mouth daily Melissa Uribea darryn Lansoprazol e 30 MG oral Delayed Release Capsule 09-02 00:00: 00 Yes [id number] 30mg Take 1 capsule (30 mg total) by mouth daily Melissa Griffin Externa darryn Levothyroxi ne Sodium 75 MCG oral Tablet 09-02 00:00: 00 Yes [id number] 75ug Take 1 tablet (75 mcg total) by mouth daily Melissa cates Sitagliptin Phosphate (Januvia) 50 MG oral Tablet 09-02 00:00: 00 Yes [id number] 50mg Take 1 tablet (50 mg total) by mouth daily Melissa cates Lansoprazol e 30 MG oral Delayed Release Capsule 09-02 00:00: 00 Yes [id number] 30mg Take 1 capsule (30 mg total) by mouth daily Melissa Uribea darryn Levothyroxi ne Sodium 75 MCG oral Tablet 09-02 00:00: 00 Yes [id number] 75ug Take 1 tablet (75 mcg total) by mouth daily Melissa cates Sitagliptin Phosphate (Januvia) 50 MG oral Tablet 09-02 00:00: 00 Yes [id number] 50mg Take 1 tablet (50 mg total) by mouth daily Melissa cates Lansoprazol e 30 MG oral Delayed Release Capsule 09-02 00:00: 00 Yes [id number] 30mg Take 1 capsule (30 mg total) by mouth daily Melissa Uribea darryn Levothyroxi ne Sodium 75 MCG oral Tablet 09-02 00:00: 00 Yes [id number] 75ug Take 1 tablet (75 mcg total) by mouth daily Melissa cates Sitagliptin Phosphate (Januvia) 50 MG oral Tablet 09-02 00:00: 00 Yes [id number] 50mg Take 1 tablet (50 mg total) by mouth daily Melissa cates Lansoprazol e 30 MG oral Delayed Release Capsule 09-02 00:00: 00 Yes [id number] 30mg Take 1 capsule (30 mg total) by mouth daily Melissa Uribea darryn Levothyroxi ne Sodium 75 MCG oral Tablet 09-02 00:00: 00 Yes [id number] 75ug Take 1 tablet (75 mcg total) by mouth daily Melissa cates Sitagliptin Phosphate (Januvia) 50 MG oral Tablet 09-02 00:00: 00 Yes [id number] 50mg Take 1 tablet (50 mg total) by mouth daily Melissa Grant - Externa darryn Levothyroxi ne Sodium 75 MCG oral Tablet 09-02 00:00: 00 Yes [id number] 75ug Take 1 tablet (75 mcg total) by mouth daily Melissa Griffin Externa darryn Sitagliptin Phosphate (Januvia) 50 MG oral Tablet 09-02 00:00: 00 Yes [id number] 50mg Take 1 tablet (50 mg total) by mouth daily Melissa Grant - Externa darryn Levothyroxi ne Sodium 75 MCG oral Tablet 09-02 00:00: 00 Yes [id number] 75ug Take 1 tablet (75 mcg total) by mouth daily Melissa Griffin Externa darryn Sitagliptin Phosphate (Januvia) 50 MG oral Tablet 09-02 00:00: 00 Yes [id number] 50mg Take 1 tablet (50 mg total) by mouth daily Melissa Grant - Externa darryn Levothyroxi ne Sodium 75 MCG oral Tablet 09-02 00:00: 00 Yes [id number] 75ug Take 1 tablet (75 mcg total) by mouth daily Melissa Griffin Externa darryn Sitagliptin Phosphate (Januvia) 50 MG oral Tablet 09-02 00:00: 00 Yes [id number] 50mg Take 1 tablet (50 mg total) by mouth daily Melissa Griffin Externa darryn Levothyroxi ne Sodium 75 MCG oral Tablet 09-02 00:00: 00 Yes [id number] 75ug Take 1 tablet (75 mcg total) by mouth daily Melissa Griffin Externa darryn Sitagliptin Phosphate (Januvia) 50 MG oral Tablet 09-02 00:00: 00 Yes [id number] 50mg Take 1 tablet (50 mg total) by mouth daily Melissa Grant - Externa darryn Levothyroxi ne Sodium 75 MCG oral Tablet 09-02 00:00: 00 Yes [id number] 75ug Take 1 tablet (75 mcg total) by mouth daily Melissa Griffin Externa darryn Sitagliptin Phosphate (Januvia) 50 MG oral Tablet 09-02 00:00: 00 Yes [id number] 50mg Take 1 tablet (50 mg total) by mouth daily Melissa cates Levothyroxi ne Sodium 75 MCG oral Tablet 09-02 00:00: 00 Yes [id number] 75ug Take 1 tablet (75 mcg total) by mouth daily Melissa cates Sitagliptin Phosphate (Januvia) 50 MG oral Tablet 09-02 00:00: 00 Yes [id number] 50mg Take 1 tablet (50 mg total) by mouth daily Melissa cates Lansoprazol e 30 MG oral Delayed Release Capsule 09-02 00:00: 00 11-11 00:00 :00 No [id number] 30mg Take 1 capsule (30 mg total) by mouth daily Melissa cates Aspirin 81 MG oral Tablet Delayed Response 08-27 12:55: 37 Yes Take 1 tablet every day by oral route. Melissa cates Sitagliptin Phosphate (Febuvia) 50 MG oral Tablet 08-27 00:00: 00 Yes [id number] 50mg Take 1 tablet (50 mg total) by mouth daily Melissa cates Lansoprazol e 30 MG oral Delayed Release Capsule 08-27 00:00: 00 Yes [id number] 30mg Take 1 capsule (30 mg total) by mouth daily Melissa cates Latanoprost 0.005 % ophthalmic Solution 07-28 00:00: 00 Yes [id number] 1[drp] Place 1 drop into both eyes nightly Melissa cates glipiZIDE 10 MG oral Tablet 07-28 00:00: 00 Yes [id number] 10mg Take 1 tablet (10 mg total) by mouth in the morning and 1 tablet (10 mg total) in the evening. Take before meals. Melissa cates Sitagliptin Phosphate (Febuvia) 50 MG oral Tablet 07-28 00:00: 00 Yes [id number] 50mg Take 1 tablet (50 mg total) by mouth daily Melissa cates Lansoprazol e 30 MG oral Delayed Release Capsule 07-28 00:00: 00 Yes [id number] 30mg Take 1 capsule (30 mg total) by mouth daily Melissa cates Latanoprost 0.005 % ophthalmic Solution 07-28 00:00: 00 Yes [id number] 1[drp] Place 1 drop into both eyes nightly Melissa cates glipiZIDE 10 MG oral Tablet 07-28 00:00: 00 Yes [id number] 10mg Take 1 tablet (10 mg total) by mouth in the morning and 1 tablet (10 mg total) in the evening. Take before meals. Melissa Quigleypawelmayra cates Sitagliptin Phosphate (Januvia) 50 MG oral Tablet 07-28 00:00: 00 Yes [id number] 50mg Take 1 tablet (50 mg total) by mouth daily Melissa cates Lansoprazol e 30 MG oral Delayed Release Capsule 07-28 00:00: 00 Yes [id number] 30mg Take 1 capsule (30 mg total) by mouth daily Melissa cates Latanoprost 0.005 % ophthalmic Solution 07-28 00:00: 00 Yes [id number] 1[drp] Place 1 drop into both eyes nightly Melissa cates glipiZIDE 10 MG oral Tablet 07-28 00:00: 00 Yes [id number] 10mg Take 1 tablet (10 mg total) by mouth in the morning and 1 tablet (10 mg total) in the evening. Take before meals. Melissa cates Latanoprost 0.005 % ophthalmic Solution 07-28 00:00: 00 Yes [id number] 1[drp] Place 1 drop into both eyes nightly Melissa cates glipiZIDE 10 MG oral Tablet 07-28 00:00: 00 Yes [id number] 10mg Take 1 tablet (10 mg total) by mouth in the morning and 1 tablet (10 mg total) in the evening. Take before meals. Melissa cates glipiZIDE 10 MG oral Tablet 07-28 00:00: 00 Yes [id number] 10mg Take 1 tablet (10 mg total) by mouth in the morning and 1 tablet (10 mg total) in the evening. Take before meals. Melissa cates glipiZIDE 10 MG oral Tablet 07-28 00:00: 00 Yes [id number] 10mg Take 1 tablet (10 mg total) by mouth in the morning and 1 tablet (10 mg total) in the evening. Take before meals. Melissa cates glipiZIDE 10 MG oral Tablet 07-28 00:00: 00 Yes [id number] 10mg Take 1 tablet (10 mg total) by mouth in the morning and 1 tablet (10 mg total) in the evening. Take before meals. Melissa cates glipiZIDE 10 MG oral Tablet 07-28 00:00: 00 Yes [id number] 10mg Take 1 tablet (10 mg total) by mouth in the morning and 1 tablet (10 mg total) in the evening. Take before meals. Melissa cates glipiZIDE 10 MG oral Tablet 07-28 00:00: 00 Yes [id number] 10mg Take 1 tablet (10 mg total) by mouth in the morning and 1 tablet (10 mg total) in the evening. Take before meals. Melissa cates glipiZIDE 10 MG oral Tablet 07-28 00:00: 00 Yes [id number] 10mg Take 1 tablet (10 mg total) by mouth in the morning and 1 tablet (10 mg total) in the evening. Take before meals. Melissa cates glipiZIDE 10 MG oral Tablet 07-28 00:00: 00 Yes [id number] 10mg Take 1 tablet (10 mg total) by mouth in the morning and 1 tablet (10 mg total) in the evening. Take before meals. Melissa cates glipiZIDE 10 MG oral Tablet 07-28 00:00: 00 Yes [id number] 10mg Take 1 tablet (10 mg total) by mouth in the morning and 1 tablet (10 mg total) in the evening. Take before meals. Melissa cates glipiZIDE 10 MG oral Tablet 07-28 00:00: 00 Yes [id number] 10mg Take 1 tablet (10 mg total) by mouth in the morning and 1 tablet (10 mg total) in the evening. Take before meals. Melissa cates glipiZIDE 10 MG oral Tablet 07-28 00:00: 00 Yes [id number] 10mg Take 1 tablet (10 mg total) by mouth in the morning and 1 tablet (10 mg total) in the evening. Take before meals. Melissa cates glipiZIDE 10 MG oral Tablet 07-28 00:00: 00 Yes [id number] 10mg Take 1 tablet (10 mg total) by mouth in the morning and 1 tablet (10 mg total) in the evening. Take before meals. Melissa cates Sitagliptin Phosphate (Januvia) 50 MG oral Tablet 07-28 00:00: 00 08-27 00:00 :00 No [id number] 50mg Take 1 tablet (50 mg total) by mouth daily Melissa cates Lansoprazol e 30 MG oral Delayed Release Capsule 07-28 00:00: 00 08-27 00:00 :00 No [id number] 30mg Take 1 capsule (30 mg total) by mouth daily Melissa cates Atorvastati n Calcium (Lipitor) 10 MG oral Tablet 07-10 00:00: 00 Yes [id number] 3 10mg Take 1 tablet (10 mg total) by mouth nightly Melissa cates Atorvastati n Calcium (Lipitor) 10 MG oral Tablet 07-10 00:00: 00 Yes [id number] 3 10mg Take 1 tablet (10 mg total) by mouth nightly Melissa cates Atorvastati n Calcium (Lipitor) 10 MG oral Tablet 07-10 00:00: 00 Yes [id number] 3 10mg Take 1 tablet (10 mg total) by mouth nightly Melissa cates Atorvastati n Calcium (Lipitor) 10 MG oral Tablet 07-10 00:00: 00 Yes [id number] 3 10mg Take 1 tablet (10 mg total) by mouth nightly Melissa cates Atorvastati n Calcium (Lipitor) 10 MG oral Tablet 07-10 00:00: 00 Yes [id number] 3 10mg Take 1 tablet (10 mg total) by mouth nightly Melissa cates Bilateral: Bevacizumab (AVASTIN) [100 mg/4 mL], 2.5mg - Physician Administere d (J9035) 06-29 19:30: 00 06-29 19:28 :00 No [id number] 101 2.5mg Melissa cates Bilateral: Bevacizumab (AVASTIN) [100 mg/4 mL], 2.5mg - Physician Administere d ([id number]) 06-29 19:30: 00 06-29 19:28 :00 No [id number] 101 2.5mg 2.5 mg, Physician Administer ed, [...] Tablet Delayed Response 06-24 00:00: 00 Yes [id number] 40mg Take 1 tablet (40 mg total) by mouth daily Melissa cates Carvedilol (Coreg) 3.125 MG oral Tablet 06-24 00:00: 00 Yes [id number] 3.125mg Take 1 tablet (3.125 mg total) by mouth in the morning and 1 tablet (3.125 mg total) in the evening. Take with meals. Melissa cates Pantoprazol e Sodium 40 MG oral Tablet Delayed Response 06-24 00:00: 00 Yes [id number] 40mg Take 1 tablet (40 mg total) by mouth daily Melissa Quigleypawelmayra Elias Prudencio darryn Levothyroxi ne Sodium 75 MCG oral Tablet 06-24 00:00: 00 Yes [id number] 75ug Take 1 tablet (75 mcg total) by mouth daily Melissa Quigleypawelmayra Flannery darryn Latanoprost 0.005 % ophthalmic Solution 06-24 00:00: 00 Yes [id number] 1[drp] Place 1 drop into both eyes nightly Melissa Quigleypawelmayra Elias Uribeyudi darryn Carvedilol (Coreg) 3.125 MG oral Tablet 06-24 00:00: 00 Yes [id number] 3.125mg Take 1 tablet (3.125 mg total) by mouth in the morning and 1 tablet (3.125 mg total) in the evening. Take with meals. Melissa Quigleypawelmayra Elias Uribeyudi darryn Pantoprazol e Sodium 40 MG oral Tablet Delayed Response 06-24 00:00: 00 Yes [id number] 40mg Take 1 tablet (40 mg total) by mouth daily Melissa Sepawelmayra Elias Prudencio darryn Levothyroxi ne Sodium 75 MCG oral Tablet 06-24 00:00: 00 Yes [id number] 75ug Take 1 tablet (75 mcg total) by mouth daily Melissa Sepawelmayra Elias Prudencio darryn Latanoprost 0.005 % ophthalmic Solution 06-24 00:00: 00 Yes [id number] 1[drp] Place 1 drop into both eyes nightly Melissa Sepawelmayra Elias Uribeyudi darryn Carvedilol (Coreg) 3.125 MG oral Tablet 06-24 00:00: 00 Yes [id number] 3.125mg Take 1 tablet (3.125 mg total) by mouth in the morning and 1 tablet (3.125 mg total) in the evening. Take with meals. Melissa Quigleypawelmayra Elias Prudencio darryn Levothyroxi ne Sodium 75 MCG oral Tablet 06-24 00:00: 00 Yes [id number] 75ug Take 1 tablet (75 mcg total) by mouth daily Melissa Sepawelmayra Elias cates Carvedilol (Coreg) 3.125 MG oral Tablet 06-24 00:00: 00 Yes [id number] 3.125mg Take 1 tablet (3.125 mg total) by mouth in the morning and 1 tablet (3.125 mg total) in the evening. Take with meals. Melissa cates Levothyroxi ne Sodium 75 MCG oral Tablet 06-24 00:00: 00 Yes [id number] 75ug Take 1 tablet (75 mcg total) by mouth daily Melissa cates Carvedilol (Coreg) 3.125 MG oral Tablet 06-24 00:00: 00 Yes [id number] 3.125mg Take 1 tablet (3.125 mg total) by mouth in the morning and 1 tablet (3.125 mg total) in the evening. Take with meals. Melissa cates Levothyroxi ne Sodium 75 MCG oral Tablet 06-24 00:00: 00 Yes [id number] 75ug Take 1 tablet (75 mcg total) by mouth daily Melissa cates Carvedilol (Coreg) 3.125 MG oral Tablet 06-24 00:00: 00 Yes [id number] 3.125mg Take 1 tablet (3.125 mg total) by mouth in the morning and 1 tablet (3.125 mg total) in the evening. Take with meals. Melissa cates Carvedilol (Coreg) 3.125 MG oral Tablet 06-24 00:00: 00 Yes [id number] 3.125mg Take 1 tablet (3.125 mg total) by mouth in the morning and 1 tablet (3.125 mg total) in the evening. Take with meals. Melissa cates Carvedilol (Coreg) 3.125 MG oral Tablet 06-24 00:00: 00 Yes [id number] 3.125mg Take 1 tablet (3.125 mg total) by mouth in the morning and 1 tablet (3.125 mg total) in the evening. Take with meals. Melissa cates Carvedilol (Coreg) 3.125 MG oral Tablet 06-24 00:00: 00 Yes [id number] 3.125mg Take 1 tablet (3.125 mg total) by mouth in the morning and 1 tablet (3.125 mg total) in the evening. Take with meals. Melissa cates Carvedilol (Coreg) 3.125 MG oral Tablet 2022-0 17 00:00: 00 Yes [id number] 3.125mg Take 1 tablet (3.125 mg total) by mouth in the morning and 1 tablet (3.125 mg total) in the evening. Take with meals. Melissa Grant - Externa darryn Carvedilol (Coreg) 3.125 MG oral Tablet 2022-0 17 00:00: 00 Yes [id number] 3.125mg Take 1 tablet (3.125 mg total) by mouth in the morning and 1 tablet (3.125 mg total) in the evening. Take with meals. Melissa Grant - Externa darryn Carvedilol (Coreg) 3.125 MG oral Tablet 2022-0 17 00:00: 00 Yes [id number] 3.125mg Take 1 tablet (3.125 mg total) by mouth in the morning and 1 tablet (3.125 mg total) in the evening. Take with meals. Melissa cates Carvedilol (Coreg) 3.125 MG oral Tablet 2022-0 17 00:00: 00 Yes [id number] 3.125mg Take 1 tablet (3.125 mg total) by mouth in the morning and 1 tablet (3.125 mg total) in the evening. Take with meals. Melissa Grant - Externa darryn Carvedilol (Coreg) 3.125 MG oral Tablet 2022-0 17 00:00: 00 Yes [id number] 3.125mg Take 1 tablet (3.125 mg total) by mouth in the morning and 1 tablet (3.125 mg total) in the evening. Take with meals. Melissa Grant - Externa l Carvedilol (Coreg) 3.125 MG oral Tablet 2022-0 17 00:00: 00 Yes [id number] 3.125mg Take 1 tablet (3.125 mg total) by mouth in the morning and 1 tablet (3.125 mg total) in the evening. Take with meals. Melissa Quigleyybold - Externa l Carvedilol (Coreg) 3.125 MG oral Tablet 2022-0 -17 00:00: 00 Yes [id number] 3.125mg Take 1 tablet (3.125 mg total) by mouth in the morning and 1 tablet (3.125 mg total) in the evening. Take with meals. Melissa cates Carvedilol (Coreg) 3.125 MG oral Tablet 06-24 00:00: 00 Yes [id number] 3.125mg Take 1 tablet (3.125 mg total) by mouth in the morning and 1 tablet (3.125 mg total) in the evening. Take with meals. Melissa cates Carvedilol (Coreg) 3.125 MG oral Tablet 06-24 00:00: 00 11-11 00:00 :00 No [id number] 3.125mg Take 1 tablet (3.125 mg total) by mouth in the morning and 1 tablet (3.125 mg total) in the evening. Take with meals. Melissa cates Iron Sucrose (VENOFER) 300 mg in sodium chloride 0.9 % 250 mL infusion 06-22 17:15: 00 06-22 18:20 :00 No [id number] 300mg 300 mg, at 166.7 mL/hr, Administer [...] GM/177ML oral Solution 06-19 00:00: 00 Yes [id number] Instructio ns provided to patient. Follow instructio ns provided by provider. Melissa cates Na Sulfate-K Sulfate-Mg Sulf (SUPREP BOWEL PREP KIT) 17.5-3.13-1 .6 GM/177ML oral Solution 2022-0 12 00:00: 00 Yes [id number] Instructio ns provided to patient. Follow instructio ns provided by provider. Melissa Flannery l Na Sulfate-K Sulfate-Mg Sulf (SUPREP BOWEL PREP KIT) 17.5-3.13-1 .6 GM/177ML oral Solution 2022-0 12 00:00: 00 Yes [id number] Instructio ns provided to patient. Follow instructio ns provided by provider. Melissa Flannery l Na Sulfate-K Sulfate-Mg Sulf (SUPREP BOWEL PREP KIT) 17.5-3.13-1 .6 GM/177ML oral Solution 2022-0 12 00:00: 00 Yes [id number] Instructio ns provided to patient. Follow instructio ns provided by provider. Melissa cates Na Sulfate-K Sulfate-Mg Sulf (SUPREP BOWEL PREP KIT) 17.5-3.13-1 .6 GM/177ML oral Solution 2022-0 12 00:00: 00 Yes [id number] Instructio ns provided to patient. Follow instructio ns provided by provider. Melissa cates Na Sulfate-K Sulfate-Mg Sulf (SUPREP BOWEL PREP KIT) 17.5-3.13-1 .6 GM/177ML oral Solution 2022-0 12 00:00: 00 Yes [id number] Instructio ns provided to patient. Follow instructio ns provided by provider. Melissa cates Na Sulfate-K Sulfate-Mg Sulf (SUPREP BOWEL PREP KIT) 17.5-3.13-1 .6 GM/177ML oral Solution 2022-0 12 00:00: 00 Yes [id number] Instructio ns provided to patient. Follow instructio ns provided by provider. Melissa Flannery l Na Sulfate-K Sulfate-Mg Sulf (SUPREP BOWEL PREP KIT) 17.5-3.13-1 .6 GM/177ML oral Solution 2022-0 12 00:00: 00 Yes [id number] Instructio ns provided to patient. Follow instructio ns provided by provider. Melissa Uribea l Na Sulfate-K Sulfate-Mg Sulf (SUPREP BOWEL PREP KIT) 17.5-3.13-1 .6 GM/177ML oral Solution 3-0 -12 00:00: 00 Yes [id number] Instructio ns provided to patient. Follow instructio ns provided by provider. Melissa cates Na Sulfate-K Sulfate-Mg Sulf (SUPREP BOWEL PREP KIT) 17.5-3.13-1 .6 GM/177ML oral Solution 3-0 12 00:00: 00 Yes [id number] Instructio ns provided to patient. Follow instructio ns provided by provider. Melissa cates Na Sulfate-K Sulfate-Mg Sulf (SUPREP BOWEL PREP KIT) 17.5-3.13-1 .6 GM/177ML oral Solution 2022-0 12 00:00: 00 Yes [id number] Instructio ns provided to patient. Follow instructio ns provided by provider. Melissa cates Na Sulfate-K Sulfate-Mg Sulf (SUPREP BOWEL PREP KIT) 17.5-3.13-1 .6 GM/177ML oral Solution 2022-0 12 00:00: 00 Yes [id number] Instructio ns provided to patient. Follow instructio ns provided by provider. Melissa cates Na Sulfate-K Sulfate-Mg Sulf (SUPREP BOWEL PREP KIT) 17.5-3.13-1 .6 GM/177ML oral Solution 2022-0 12 00:00: 00 Yes [id number] Instructio ns provided to patient. Follow instructio ns provided by provider. Melissa cates Na Sulfate-K Sulfate-Mg Sulf (SUPREP BOWEL PREP KIT) 17.5-3.13-1 .6 GM/177ML oral Solution 3-0 12 00:00: 00 Yes [id number] Instructio ns provided to patient. Follow instructio ns provided by provider. Melissa Flannery l Na Sulfate-K Sulfate-Mg Sulf (SUPREP BOWEL PREP KIT) 17.5-3.13-1 .6 GM/177ML oral Solution 3-0 -12 00:00: 00 Yes [id number] Instructio ns provided to patient. Follow instructio ns provided by provider. Melissa Quigleypawelmayra Flannery l Na Sulfate-K Sulfate-Mg Sulf (SUPREP BOWEL PREP KIT) 17.5-3.13-1 .6 GM/177ML oral Solution 06-19 00:00: 00 Yes [id number] Instructio ns provided to patient. Follow instructio ns provided by provider. Melissa cates Na Sulfate-K Sulfate-Mg Sulf (SUPREP BOWEL PREP KIT) 17.5-3.13-1 .6 GM/177ML oral Solution 06-19 00:00: 00 Yes [id number] Instructio ns provided to patient. Follow instructio ns provided by provider. Melissa cates Na Sulfate-K Sulfate-Mg Sulf (SUPREP BOWEL PREP KIT) 17.5-3.13-1 .6 GM/177ML oral Solution 06-19 00:00: 00 Yes [id number] Instructio ns provided to patient. Follow instructio ns provided by provider. Melissa cates Na Sulfate-K Sulfate-Mg Sulf (SUPREP BOWEL PREP KIT) 17.5-3.13-1 .6 GM/177ML oral Solution 06-19 00:00: 00 11-05 00:00 :00 No [id number] Instructio ns provided to patient. Follow instructio ns provided by provider. Melissa Quigleyrobbie - Externa l Latanoprost 0.005 % ophthalmic Solution 06-17 00:00: 00 Yes [id number] 1[drp] Place 1 drop into both eyes nightly Melissa Quigleypawelmayra - Externa l Latanoprost 0.005 % ophthalmic Solution 06-17 00:00: 00 Yes [id number] 1[drp] Place 1 drop into both eyes nightly Melissa Seybold - Externa l Latanoprost 0.005 % ophthalmic Solution 06-17 00:00: 00 Yes [id number] 1[drp] Place 1 drop into both eyes nightly Melissa Seybold - Externa l Latanoprost 0.005 % ophthalmic Solution 06-17 00:00: 00 Yes [id number] 1[drp] Place 1 drop into both eyes nightly Melissa Beatriceold - Externa l Iron Sucrose (VENOFER) 300 mg in sodium chloride 0.9 % 250 mL infusion 06-09 17:15: 00 06-09 18:50 :00 No [id number] 300mg 300 mg, at 166.7 mL/hr, Administer [...] 05-26 16:45: 00 05-26 18:06 :00 No [id number] 300mg 300 mg, at 166.7 mL/hr, Administer [...] ophthalmic Solution 0 05-12 00:00: 00 Yes [id number] 1[drp] Place 1 drop into both eyes nightly Melissa Barronold - Externa l Latanoprost 0.005 % ophthalmic Solution 0 05-12 00:00: 00 Yes [id number] 1[drp] Place 1 drop into both eyes nightly Melissa Barronold - Externa l Multiple Vitamins-Ir on (MULTIVITAM IN PLUS IRON ADULT OR) 05-11 14:21: 53 Yes 1{tbl} Take 1 tablet by mouth daily Melissa Sepawelold - Externa l Januvia 50 MG oral Tablet 0 05-10 00:00: 00 Yes [id number] TAKE 1 TABLET BY MOUTH EVERY DAY Melissa Sepawelold - Externa l Januvia 50 MG oral Tablet 0 05-10 00:00: 00 Yes [id number] TAKE 1 TABLET BY MOUTH EVERY DAY Melissa Seybold - Externa l Januvia 50 MG oral Tablet 0 05-10 00:00: 00 Yes [id number] TAKE 1 TABLET BY MOUTH EVERY DAY Melissa Seybold - Externa l Januvia 50 MG oral Tablet 0 05-10 00:00: 00 Yes [id number] TAKE 1 TABLET BY MOUTH EVERY DAY Melissa Seybold - Externa l Januvia 50 MG oral Tablet 0 05-10 00:00: 00 Yes [id number] TAKE 1 TABLET BY MOUTH EVERY DAY Melissa Seybold - Externa l Januvia 50 MG oral Tablet 0 05-10 00:00: 00 Yes [id number] TAKE 1 TABLET BY MOUTH EVERY DAY Melissa Seybold - Externa l Januvia 50 MG oral Tablet 2022-0 05-10 00:00: 00 Yes [id number] TAKE 1 TABLET BY MOUTH EVERY DAY Melissa Seybold - Externa l Januvia 50 MG oral Tablet 0 05-10 00:00: 00 Yes [id number] TAKE 1 TABLET BY MOUTH EVERY DAY Melissa Seybold - Externa l Januvia 50 MG oral Tablet 0 05-10 00:00: 00 Yes [id number] TAKE 1 TABLET BY MOUTH EVERY DAY Melissa cates Multiple Vitamins-Ir on (MULTIVITAM IN PLUS IRON ADULT OR) 05-08 10:04: 06 Yes 1{tbl} Take 1 tablet by mouth daily Melissa cates Rosuvastati n Calcium 40 MG oral Tablet 05-08 00:00: 00 Yes [id number] 3 40mg Take 1 tablet (40 mg total) by mouth at bedtime Melissa cates glipiZIDE 10 MG oral Tablet 05-08 00:00: 00 Yes [id number] 10mg Take 1 tablet (10 mg total) by mouth in the morning and 1 tablet (10 mg total) in the evening. Take before meals. Melissa cates Sitagliptin Phosphate 50 MG oral Tablet 05-08 00:00: 00 Yes [id number] 50mg Take 1 tablet (50 mg total) by mouth daily Melissa cates Rosuvastati n Calcium 40 MG oral Tablet 05-08 00:00: 00 Yes [id number] 3 40mg Take 1 tablet (40 mg total) by mouth at bedtime Melissa cates glipiZIDE 10 MG oral Tablet 05-08 00:00: 00 Yes [id number] 10mg Take 1 tablet (10 mg total) by mouth in the morning and 1 tablet (10 mg total) in the evening. Take before meals. Melissa cates Rosuvastati n Calcium 40 MG oral Tablet 05-08 00:00: 00 Yes [id number] 3 40mg Take 1 tablet (40 mg total) by mouth at bedtime Melissa cates glipiZIDE 10 MG oral Tablet 05-08 00:00: 00 Yes [id number] 10mg Take 1 tablet (10 mg total) by mouth in the morning and 1 tablet (10 mg total) in the evening. Take before meals. Melissa cates Rosuvastati n Calcium 40 MG oral Tablet 05-08 00:00: 00 Yes [id number] 3 40mg Take 1 tablet (40 mg total) by mouth at bedtime Melissa cates glipiZIDE 10 MG oral Tablet 05-08 00:00: 00 Yes [id number] 10mg Take 1 tablet (10 mg total) by mouth in the morning and 1 tablet (10 mg total) in the evening. Take before meals. Melissa cates Rosuvastati n Calcium 40 MG oral Tablet 05-08 00:00: 00 Yes [id number] 3 40mg Take 1 tablet (40 mg total) by mouth at bedtime Melissa cates glipiZIDE 10 MG oral Tablet 05-08 00:00: 00 Yes [id number] 10mg Take 1 tablet (10 mg total) by mouth in the morning and 1 tablet (10 mg total) in the evening. Take before meals. Melissa cates Rosuvastati n Calcium 40 MG oral Tablet 05-08 00:00: 00 Yes [id number] 3 40mg Take 1 tablet (40 mg total) by mouth at bedtime Melissa cates glipiZIDE 10 MG oral Tablet 05-08 00:00: 00 Yes [id number] 10mg Take 1 tablet (10 mg total) by mouth in the morning and 1 tablet (10 mg total) in the evening. Take before meals. Melisas cates Rosuvastati n Calcium 40 MG oral Tablet 05-08 00:00: 00 Yes [id number] 3 40mg Take 1 tablet (40 mg total) by mouth at bedtime Melissa cates glipiZIDE 10 MG oral Tablet 05-08 00:00: 00 Yes [id number] 10mg Take 1 tablet (10 mg total) by mouth in the morning and 1 tablet (10 mg total) in the evening. Take before meals. Melissa cates glipiZIDE 10 MG oral Tablet 05-08 00:00: 00 Yes [id number] 10mg Take 1 tablet (10 mg total) by mouth in the morning and 1 tablet (10 mg total) in the evening. Take before meals. Melissa cates glipiZIDE 10 MG oral Tablet 05-08 00:00: 00 Yes [id number] 10mg Take 1 tablet (10 mg total) by mouth in the morning and 1 tablet (10 mg total) in the evening. Take before meals. Melissa cates glipiZIDE 10 MG oral Tablet 05-08 00:00: 00 Yes [id number] 10mg Take 1 tablet (10 mg total) by mouth in the morning and 1 tablet (10 mg total) in the evening. Take before meals. Melissa cates Rosuvastati n Calcium 40 MG oral Tablet 05-08 00:00: 00 06-24 00:00 :00 No [id number] 3 40mg Take 1 tablet (40 mg total) by mouth at bedtime Melissa cates Levothyroxi ne Sodium 75 MCG oral Tablet 05-05 00:00: 00 Yes [id number] 75ug Take 1 tablet (75 mcg total) by mouth daily Melissa cates Levothyroxi ne Sodium 75 MCG oral Tablet 05-05 00:00: 00 Yes [id number] 75ug Take 1 tablet (75 mcg total) by mouth daily Melissa cates Levothyroxi ne Sodium 75 MCG oral Tablet 05-05 00:00: 00 Yes [id number] 75ug Take 1 tablet (75 mcg total) by mouth daily Melissa cates Levothyroxi ne Sodium 75 MCG oral Tablet 05-05 00:00: 00 Yes [id number] 75ug Take 1 tablet (75 mcg total) by mouth daily Melissa cates Levothyroxi ne Sodium 75 MCG oral Tablet 05-05 00:00: 00 Yes [id number] 75ug Take 1 tablet (75 mcg total) by mouth daily Melissa cates Levothyroxi ne Sodium 75 MCG oral Tablet 05-05 00:00: 00 Yes [id number] 75ug Take 1 tablet (75 mcg total) by mouth daily Melissa cates Levothyroxi ne Sodium 75 MCG oral Tablet 05-05 00:00: 00 Yes [id number] 75ug Take 1 tablet (75 mcg total) by mouth daily Melissa cates Levothyroxi ne Sodium 75 MCG oral Tablet 05-05 00:00: 00 Yes [id number] 75ug Take 1 tablet (75 mcg total) by mouth daily Melissa cates Levothyroxi ne Sodium 75 MCG oral Tablet 05-05 00:00: 00 Yes [id number] 75ug Take 1 tablet (75 mcg total) [...] MG oral Tablet 05-01 00:00: 00 Yes [id number] 3 10mg Take 1 tablet (10 mg total) by mouth daily (before a meal) Melissa cates Sitagliptin Phosphate 100 MG oral Tablet 05-01 00:00: 00 Yes [id number] 3 100mg Take 1 tablet (100 mg total) by mouth daily Melissa cates Furosemide (LASIX) 20 MG oral Tablet 05-01 00:00: 00 Yes [id number] 40mg Take 2 tablets (40 mg total) by mouth daily Melissa cates glipiZIDE 10 MG oral Tablet 05-01 00:00: 00 Yes [id number] 3 10mg Take 1 tablet (10 mg total) by mouth daily (before a meal) Melissa cates Sitagliptin Phosphate 100 MG oral Tablet 05-01 00:00: 00 Yes [id number] 3 100mg Take 1 tablet (100 mg total) by mouth daily Melissa cates Furosemide (LASIX) 20 MG oral Tablet 05-01 00:00: 00 Yes [id number] 40mg Take 2 tablets (40 mg total) by mouth daily Melissa cates glipiZIDE 10 MG oral Tablet 05-01 00:00: 00 05-08 00:00 :00 No [id number] 3 10mg Take 1 tablet (10 mg total) by mouth daily (before a meal) Melissa cates Sitagliptin Phosphate 100 MG oral Tablet 05-01 00:00: 05-08 00:00 :00 No [id number] 3 100mg Take 1 tablet (100 mg total) by mouth daily Melissa cates Furosemide (LASIX) 20 MG oral Tablet 05-01 00:00: 00 05-08 00:00 :00 No [id number] 40mg Take 2 tablets (40 mg total) [...] MG oral Tablet 04-09 00:00: 00 Yes [id number] 325mg Take 1 tablet (325 mg total) by mouth 2 times daily Melissa cates Ferrous Sulfate (Iron) 325 (65 Fe) MG oral Tablet 04-09 00:00: 00 Yes [id number] 325mg Take 1 tablet (325 mg total) by mouth 2 times daily Melissa cates Ferrous Sulfate (Iron) 325 (65 Fe) MG oral Tablet 04-09 00:00: 00 Yes [id number] 325mg Take 1 tablet (325 mg total) by mouth 2 times daily Melissa cates Ferrous Sulfate (Iron) 325 (65 Fe) MG oral Tablet 04-09 00:00: 00 05-08 00:00 :00 No [id number] 325mg Take 1 tablet (325 mg total) by mouth 2 times daily Melissa cates Levothyroxi ne Sodium 50 MCG oral Tablet 04-07 00:00: 00 Yes [id number] 50ug Take 1 tablet (50 mcg total) by mouth daily Melissa cates Levothyroxi ne Sodium 50 MCG oral Tablet 04-07 00:00: 00 Yes [id number] 50ug Take 1 tablet (50 mcg total) [...] Tablet Delayed Response 04-03 00:00: 00 Yes [id number] 81mg Take 1 tablet (81 mg total) by mouth daily Melissa cates Aspirin (Aspirin 81) 81 MG oral Tablet Delayed Response 0 04-03 00:00: 00 Yes [id number] 81mg Take 1 tablet (81 mg total) by mouth daily Melissa cates Aspirin (Aspirin 81) 81 MG oral Tablet Delayed Response 04-03 00:00: 00 Yes [id number] 81mg Take 1 tablet (81 mg total) by mouth daily Melissa cates Aspirin (Aspirin 81) 81 MG oral Tablet Delayed Response 04-03 00:00: 00 Yes [id number] 81mg Take 1 tablet (81 mg total) by mouth daily Melissa cates Aspirin (Aspirin 81) 81 MG oral Tablet Delayed Response 04-03 00:00: 00 05-08 00:00 :00 No [id number] 81mg Take 1 tablet (81 mg total) by mouth daily Melissa cates SITagliptin (JANUVIA) 100 mg tablet 09-30 16:27: 53 09-30 00:00 :00 No 100mg Take 100 mg by mouth in the morning. [facility] glipiZIDE XL (GLUCOTROL XL) 10 mg 24 hr tablet 09-30 16:27: 53 09-30 00:00 :00 No 10mg Take 10 mg by mouth in the morning and 10 mg in the evening. [facility] rosuvastati n 20 mg tablet 09-30 16:17: 42 09-30 00:00 :00 No 20mg Take 20 mg by mouth at bedtime. [facility] lisinopriL 5 mg tablet 09-30 16:17: 29 09-30 00:00 :00 No 5mg Take 5 mg by mouth in the morning. [facility] furosemide 20 mg tablet 09-30 15:17: 03 Yes 20mg Take 20 mg by mouth in the morning. [facility] esomeprazol e (NEXIUM) 20 mg capsule 09-30 15:17: 03 Yes 20mg Take 20 mg by mouth daily before a meal. [facility] LO ASPIRIN ORAL 09-30 15:17: 03 Yes Take by mouth. [facility] furosemide 20 mg tablet 09-30 15:17: 03 Yes 20mg Take 20 mg by mouth in the morning. [facility] esomeprazol e (NEXIUM) 20 mg capsule 09-30 15:17: 03 Yes 20mg Take 20 mg by mouth daily before a meal. [facility] LO ASPIRIN ORAL 09-30 15:17: 03 Yes Take by mouth. [facility] furosemide 20 mg tablet 09-30 15:17: 03 Yes 20mg Take 20 mg by mouth in the morning. [facility] esomeprazol e (NEXIUM) 20 mg capsule 09-30 15:17: 03 Yes 20mg Take 20 mg by mouth daily before a meal. [facility] LO ASPIRIN ORAL 09-30 15:17: 03 Yes Take by mouth. [facility] Lisinopril 5 MG oral Tablet 09-30 00:00: [...] 5 mg tablet 09-30 00:00: 00 Yes [id number] 5mg Take 1 tablet by mouth in the morning. [facility] gabapentin 300 mg capsule 09-30 00:00: 00 Yes [id number] 300mg Take 1 capsule by mouth in the morning and 1 capsule at noon and 1 capsule in the evening. [facility] rosuvastati n 20 mg tablet 09-30 00:00: 00 Yes [id number] 20mg Take 1 tablet by mouth at bedtime. [facility] amitriptyli ne 25 mg tablet 09-30 00:00: 00 Yes [id number] 25mg Take 1 tablet by mouth at bedtime. [facility] SITagliptin (JANUVIA) 100 mg tablet 09-30 00:00: 00 Yes [id number] 100mg Take 1 tablet by mouth in the morning. [facility] lisinopriL 5 mg tablet 09-30 00:00: 00 Yes [id number] 5mg Take 1 tablet by mouth in the morning. [facility] gabapentin 300 mg capsule 09-30 00:00: 00 Yes [id number] 300mg Take 1 capsule by mouth in the morning and 1 capsule at noon and 1 capsule in the evening. [facility] rosuvastati n 20 mg tablet 09-30 00:00: 00 Yes [id number] 20mg Take 1 tablet by mouth at bedtime. [facility] amitriptyli ne 25 mg tablet 09-30 00:00: 00 Yes [id number] 25mg Take 1 tablet by mouth at bedtime. [facility] SITagliptin (JANUVIA) 100 mg tablet 09-30 00:00: 00 Yes [id number] 100mg Take 1 tablet by mouth in the morning. [facility] lisinopriL 5 mg tablet 09-30 00:00: 00 Yes [id number] 5mg Take 1 tablet by mouth in the morning. [facility] gabapentin 300 mg capsule 09-30 00:00: 00 Yes [id number] 300mg Take 1 capsule by mouth in the morning and 1 capsule at noon and 1 capsule in the evening. [facility] rosuvastati n 20 mg tablet 09-30 00:00: 00 Yes [id number] 20mg Take 1 tablet by mouth at bedtime. [facility] SITagliptin (JANUVIA) 100 mg tablet 09-30 00:00: 00 Yes [id number] 100mg Take 1 tablet by mouth in the morning. [facility] amitriptyli ne 25 mg tablet 09-30 00:00: 00 02-24 00:00 :00 No [id number] 25mg Take 1 tablet by mouth at bedtime. [facility] Lisinopril 5 MG oral Tablet 09-30 00:00: [...] 09-30 00:00: 00 03-30 05:59 :00 No [id number] 10mg Take 1 tablet by mouth in the morning and 1 tablet in the evening. Do all this for 180 days. [facility] glipiZIDE XL (GLUCOTROL XL) 10 mg 24 hr tablet 09-30 00:00: 00 03-30 05:59 :00 No [id number] 10mg Take 1 tablet by mouth in the morning and 1 tablet in the evening. Do all this for 180 days. [facility] furosemide 20 mg tablet 0 6-16 00:00: [...] ing tablet 2022-0 3-01 00:00: 00 Yes [id number] 4mg Take 1 tablet by mouth every 8 (eight) hours as needed for Nausea and Vomiting (N/V). [facility] ondansetron 4 mg disintegrat ing tablet 2022-0 3-01 00:00: 00 Yes [id number] 4mg Take 1 tablet by mouth every 8 (eight) hours as needed for Nausea and Vomiting (N/V). [facility] ondansetron 4 mg disintegrat ing tablet 04-08 00:00: 00 Yes [id number] 4mg Take 1 tablet by mouth every 8 (eight) hours as needed for Nausea and Vomiting (N/V). [facility] lisinopril 5 mg tablet 2020-02 2 00:00: [...] 05-08 00:00: 00 09-30 00:00 :00 No [id number] 9109 1{tbl} Take 1 tablet by mouth every 12 (twelve) hours. [facility] glipiZIDE 5 mg tablet 05-08 00:00: 00 09-30 00:00 :00 No [id number] 9109 5mg Take 1 tablet by mouth daily. [facility] levothyroxi ne 25 mcg tablet 08-19 00:00: [...] VACCINE MODERNA 6MONTHS-5YEARS 2021-01-22 00:00:00 [facility] VACCINE MODERNA 6MONTHS-5YEARS [...] Mrna-lnp, Isaiah Protein, Pf 2020-07-29 00:00:00 [facility]ine Moderna (Spikevax), Mrna-lnp, [...] Influenza Nasal, Unspecified Formulation 2017-11-27 00:00:[address] [facility] - External Influenza, Seasonal, Injectable, Preservative Free 2017-11-27 00:00:[address] [facility] - External Influenza Nasal, Unspecified Formulation 2017-11-27 00:00:[address] [facility] - External Covid-19 Vaccine Moderna (Spikevax), Mrna-lnp, Isaiah Protein, Pf [facility] MODERNA 6MONTHS-5YEARS [facility] VACCINE MODERNA 6MONTHS-5YEARS Unknown [facility] VACCINE MODERNA 6MONTHS-5YEARS Unknown Completed [facility] - External Influenza Nasal, Unspecified Formulation Unknown Completed [facility] - External Covid-19 Vaccine Moderna (Spikevax), Mrna-lnp, Isaiah Protein, Pf Unknown Completed [facility] - External Covid-19 Vaccine Moderna (Spikevax), Mrna-lnp, Isaiah Protein, Pf Unknown Completed [facility] External Influenza, Seasonal, Injectable, Preservative Free Unknown Completed [facility] - External Covid-19 Vaccine Moderna (Spikevax), Mrna-lnp, Isaiah Protein, Pf Unknown Completed [facility] - External COVID-19 VACCINE MODERNA 6MONTHS-5YEARS Unknown [facility] VACCINE MODERNA 6MONTHS-5YEARS Unknown [facility] COVID-[facility] VACCINE MODERNA 6MONTHS-5YEARS Unknown [facility] Influenza Nasal, Unspecified Formulation Unknown Completed [facility] - External Covid-19 Vaccine Moderna (Spikevax), Mrna-lnp, Isaiah Protein, Pf Unknown Completed [facility] - External Covid-19 Vaccine Moderna (Spikevax), Mrna-lnp, Isaiah Protein, Pf Unknown Completed [facility] - External Influenza, Seasonal, Injectable, Preservative Free Unknown Completed [facility] - External Covid-19 Vaccine Moderna (Spikevax), Mrna-lnp, Isaiah Protein, Pf Unknown Completed Melissa [facility]bold - External COVID-19 VACCINE MODERNA 6MONTHS-5YEARS Unknown [facility] VACCINE MODERNA 6MONTHS-5YEARS Unknown [facility] VACCINE MODERNA 6MONTHS-5YEARS Unknown [facility] Influenza Nasal, Unspecified Formulation Unknown Completed [facility] - External Covid-19 Vaccine Moderna (Spikevax), Mrna-lnp, Isaiah Protein, Pf Unknown Completed [facility] - External Covid-19 Vaccine Moderna (Spikevax), Mrna-lnp, Isaiah Protein, Pf Unknown Completed [facility] - External Influenza, Seasonal, Injectable, Preservative Free Unknown Completed [facility] - External Covid-19 Vaccine Moderna (Spikevax), Mrna-lnp, Isaiah Protein, Pf Unknown Completed [facility] - External COVID-19 VACCINE MODERNA 6MONTHS-5YEARS Unknown Completed [facility] - External COVID-19 VACCINE MODERNA 6MONTHS-5YEARS Unknown Completed [facility] - External COVID-19 VACCINE MODERNA 6MONTHS-5YEARS Unknown Completed [facility] - External Influenza Nasal, Unspecified Formulation Unknown Completed [facility] External Covid-19 Vaccine Moderna (Spikevax), Mrna-lnp, Isaiah Protein, Pf Unknown Completed [facility] External Covid-19 Vaccine Moderna (Spikevax), Mrna-lnp, Isaiah Protein, Pf Unknown Completed [facility] External Influenza, Seasonal, Injectable, Preservative Free Unknown Completed [facility] - External Covid-19 Vaccine Moderna (Spikevax), Mrna-lnp, Isaiah Protein, Pf Unknown Completed [facility] - External COVID-19 VACCINE MODERNA 6MONTHS-5YEARS Unknown [facility] VACCINE MODERNA 6MONTHS-5YEARS Unknown [facility]-19 VACCINE MODERNA 6MONTHS-5YEARS Unknown Com[facility] d - External Influenza Nasal, Unspecified Formulation Unknown Completed [facility] - External Influenza, Seasonal, Injectable, Preservative [...] Influenza, Seasonal, Injectable, Preservative Free Unknown Completed [facility] bold - External Covid-19 Vaccine Moderna (Spikevax), Mrna-lnp, Isaiah Protein, Pf Unknown Completed Melissa [facility] - External COVID-19 VACCINE MODERNA 6MONTHS-5YEARS Unknown Completed Melissa Seybol d - External COVID-19 VACCINE MODERNA 6MONTHS-5YEARS Unknown [facility] VACCINE MODERNA 6MONTHS-5YEARS Unknown Completed Melissa [facility] - External Influenza Nasal, Unspecified Formulation Unknown Completed Melissa [facility] - External Influenza, Seasonal, Injectable, Preservative Free Unknown Completed [facility] bold - External Covid-19 Vaccine Moderna [...] Influenza, Seasonal, Injectable, Preservative Free Unknown Completed [facility] bold - External Covid-19 Vaccine Moderna (Spikevax), Mrna-lnp, Isaiah Protein, Pf Unknown Completed Melissa [facility] - External COVID-19 VACCINE MODERNA 6MONTHS-5YEARS Unknown Completed Melissa Seybol d - External COVID-19 VACCINE MODERNA 6MONTHS-5YEARS Unknown Completed Melissa Seybol d - External COVID-19 VACCINE MODERNA 6MONTHS-5YEARS Unknown Completed Melissa [facility] d - External Influenza Nasal, Unspecified Formulation Unknown [facility], Seasonal, Injectable, Preservative Free Unknown Completed [facility] bold - External Covid-19 Vaccine Moderna [...] Influenza, Seasonal, Injectable, Preservative Free Unknown Completed [facility] bold - External Covid-19 Vaccine Moderna (Spikevax), Mrna-lnp, Isaiah Protein, Pf Unknown [facility] COVID-19 VACCINE MODERNA 6MONTHS-5YEARS Unknown [facility] VACCINE MODERNA 6MONTHS-5YEARS Unknown [facility] COVID-19 VACCINE MODERNA 6MONTHS-5YEARS Unknown [facility] Influenza Nasal, Unspecified Formulation Unknown [facility] Influenza, Seasonal, Injectable, Preservative Free [...] Influenza, Seasonal, Injectable, Preservative Free Unknown Completed [facility] bold - External Covid-19 Vaccine Moderna (Spikevax), Mrna-lnp, Isaiah Protein, Pf Unknown Completed Melissa [facility] - External COVID-19 VACCINE MODERNA 6MONTHS-5YEARS Unknown Completed [facility] - External COVID-19 VACCINE MODERNA 6MONTHS-5YEARS Unknown Completed [facility] d - External COVID-19 VACCINE MODERNA 6MONTHS-5YEARS Unknown Completed [facility] - External Influenza Nasal, Unspecified Formulation Unknown Completed [facility] External Covid-19 Vaccine Moderna (Spikevax), Mrna-lnp, Isaiah Protein, Pf Unknown Completed [facility] External Covid-19 Vaccine Moderna (Spikevax), Mrna-lnp, Isaiah Protein, Pf Unknown Completed [facility] External Influenza, Seasonal, Injectable, Preservative Free Unknown Completed [facility] External Covid-19 Vaccine Moderna (Spikevax), Mrna-lnp, Isaiah Protein, Pf Unknown Completed [facility] External COVID-19 VACCINE MODERNA 6MONTHS-5YEARS Unknown Completed [facility] - External COVID-19 VACCINE MODERNA 6MONTHS-5YEARS Unknown Completed [facility] - External COVID-19 VACCINE MODERNA 6MONTHS-5YEARS Unknown Completed [facility] - External Influenza Nasal, Unspecified Formulation Unknown Completed [facility] External Covid-19 Vaccine Moderna (Spikevax), Mrna-lnp, Isaiah Protein, Pf Unknown Completed [facility] External Covid-19 Vaccine Moderna (Spikevax), Mrna-lnp, Isaiah Protein, Pf Unknown Completed [facility] External Influenza, Seasonal, Injectable, Preservative Free Unknown Completed [facility] External Covid-19 Vaccine Moderna (Spikevax), Mrna-lnp, Isaiah Protein, Pf Unknown Completed [facility] External COVID-19 VACCINE MODERNA 6MONTHS-5YEARS Unknown Completed [facility] d - External COVID-19 VACCINE MODERNA 6MONTHS-5YEARS Unknown Completed [facility] d - External COVID-19 VACCINE MODERNA 6MONTHS-5YEARS Unknown Completed [facility] - External Influenza Nasal, Unspecified Formulation Unknown Completed [facility] External Covid-19 Vaccine Moderna (Spikevax), Mrna-lnp, Isaiah Protein, Pf Unknown Completed [facility] - External Covid-19 Vaccine Moderna (Spikevax), Mrna-lnp, Isaiah Protein, Pf Unknown Completed [facility] - External Influenza, Seasonal, Injectable, Preservative Free Unknown Completed [facility] - External Covid-19 Vaccine Moderna (Spikevax), Mrna-lnp, Isaiah Protein, Pf Unknown Completed [facility] - External COVID-19 VACCINE MODERNA 6MONTHS-5YEARS Unknown Completed [facility] - External COVID-19 VACCINE MODERNA 6MONTHS-5YEARS Unknown Completed [facility] - External COVID-19 VACCINE MODERNA 6MONTHS-5YEARS Unknown Completed [facility] - External Influenza Nasal, Unspecified Formulation Unknown [facility] Vaccine Moderna (Spikevax), Mrna-lnp, Isaiah Protein, Pf Unknown Completed [facility] External Covid-19 Vaccine Moderna (Spikevax), Mrna-lnp, [...] Influenza Nasal, Unspecified Formulation Unknown Completed Melissa [facility] - External Covid-19 Vaccine Moderna (Spikevax), Mrna-lnp, [...] Systolic blood pressure 2023-02-24 07:15:00 156 mm[Hg] [facility] Diastolic blood pressure 2023-02-24 07:15:00 88 mm[Hg] [facility] Heart rate 2023-02-24 07:15:00 97 /min [facility] Body temperature 2023-02-24 07:15:00 36.78 Nannette [facility] Respiratory rate 2023-02-24 07:15:00 13 /min [facility] Oxygen saturation in Arterial blood by Pulse oximetry 2023-02-24 07:15:00 96 /min [facility] Body height 2023-02-24 03:40:00 149.9 cm [facility] Body weight 2023-02-24 03:40:00 65.772 kg [facility] BMI 2023-02-24 03:40:00 29.29 kg/m2 [facility] Systolic blood pressure 2023-02-16 19:13:00 130 mm[Hg] [facility] - External Diastolic blood pressure 2023-02-16 19:13:00 70 mm[Hg] Melissa [facility]bo ld - External Heart rate 2023-02-16 19:13:00 76 [facility] Body temperature 2023-02-16 [...] External BMI 2022-04-03 21:11:00 29.49 kg/m2 Trisha martin Seybold - External Oxygen saturation in Arterial blood by Pulse oximetry 2022-04-03 21:11:00 99 /min Melissa [facility]ron[facility] ld - External Systolic blood pressure 2021-09-30 20:09:00 144 mm[Hg] [facility] Diastolic blood pressure 2021-09-30 20:09:00 88 mm[Hg] [facility] Heart rate 2021-09-30 20:08:00 88 /min [facility] Body temperature 2021-09-30 20:08:00 35.94 Nannette [facility] Respiratory rate 2021-09-30 20:08:00 16 /min [facility] Body height 2021-09-30 20:08:00 149.9 cm [facility] Body weight 2021-09-30 20:08:00 64.501 kg [facility] BMI 2021-09-30 20:08:00 28.72 kg/m2 [facility] BP Systolic 2022-02-05 11:42:00 160 mm[Hg] [...] n Source URINALYSIS 2023-02-24 04:28:00 Keaton Patiño [facility] POCT TEST 2023-02-24 04:26:00 Keaton Patiño [facility] LIPASE 2023-02-24 04:10:00 Keaton Patiño [facility] COMP. METABOLIC PANEL (88311) 2023-02-24 04:10:00 Keaton Patiño [facility] CBC WITH DIFF 2023-02-24 04:10:00 Keaton Patiño [facility] CONSENT/REFUSAL FOR DIAGNOSIS AND TREATMENT 2023-02-24 03:30:37 Doctor Unassigned, [place] [facility] ECG- ADULT 2022-11-11 16:50:07 Adriano Agee - External POCT HEMOGLOBIN A1C TEST 2021-09-30 21:21:00 Andrew Verduzco [facility] Plan of Care Planned Activity Planned Date Details Comments Source Goal Plan of Care Note [code = 86939-8] Goal Plan of Care Note [code = 58821-2] Goal Plan of Care Note [code = 79672-6] Goal Plan of Care Note [code = 38618-5] Goal Plan of Care Note [code = 99766-0] Goal Plan of Care Note [code = 67451-0] Goal Plan of Care Note [code = 45924-6] Goal Plan of Care Note [code = 98573-2] Goal Plan of Care Note [code = 52157-7] Goal Plan of Care Note [code = 71514-5] Goal Plan of Care Note [code = 58298-8] Goal Plan of Care Note [code = 87295-7] Goal Plan of Care Note [code = 64682-5] Goal Plan of Care Note [code = 25379-1] Goal Plan of Care Note [code = 41786-7] Goal Plan of Care Note [code = 95797-3] Goal Plan of Care Note [code = 88802-5] Goal Plan of Care Note [code = 16108-3] Goal Plan of Care Note [code = 96678-8] Goal Plan of Care Note [code = 89010-7] Goal Plan of Care Note [code = 91452-3] Goal Plan of Care Note [code = 29527-3] Goal Plan of Care Note [code = 38412-9] Goal Plan of Care Note [code = 77009-8] Goal Plan of Care Note [code = 90685-0] Goal Plan of Care Note [code = 07149-0] Goal Plan of Care Note [code = 00212-4] Goal Plan of Care Note [code = 35564-2] Goal Plan of Care Note [code = 79223-8] Goal Plan of Care Note [code = 33650-0] Goal Plan of Care Note [code = 80685-5] Goal Plan of Care Note [code = 22633-0] Goal Plan of Care Note [code = 46835-6] Goal Plan of Care Note [code = 65126-5] Goal Plan of Care Note [code = 19868-2] Goal Plan of Care Note [code = 81271-5] Goal Plan of Care Note [code = 90249-2] Goal Plan of Care Note [code = 15328-2] Goal Plan of Care Note [code = 32802-1] Goal Plan of Care Note [code = 19235-0] Goal Plan of Care Note [code = 94435-7] Goal Plan of Care Note [code = 82714-5] Goal Plan of Care Note [code = 66871-4] Goal Plan of Care Note [code = 45837-9] Goal Plan of Care Note [code = 77112-7] Goal Plan of Care Note [code = 20921-5] Goal Plan of Care Note [code = 17572-1] Goal Plan of Care Note [code = 88886-2] Goal Plan of Care Note [code = 26229-5] Goal Plan of Care Note [code = 20888-4] Goal Plan of Care Note [code = 09612-3] Goal Plan of Care Note [code = 71550-8] Goal Plan of Care Note [code = 64083-3] Encounters Start Date/Time End Date/Time Encounter Type Admission Type Attending [facility] Care Facility Care Department Encounter ID Source 2020-12-08 09:56:25 Emergency [facility] [id number] [facility] 2023-07-19 13:00:00 2023-07-19 13:00:00 Outpatient GIDEON RODRIGUEZ [id number] [facility] 2023-05-27 08:30:00 2023-05-27 08:30:00 Outpatient DEANNE KAUR [id number] [facility] 2023-04-13 09:40:00 2023-04-13 09:40:00 Outpatient [facility]O [facility] [id number] [facility] 2023-04-07 16:00:00 2023-04-07 16:00:00 Outpatient ERIC DURBIN [id number] [facility] 2023-04-06 13:20:00 2023-04-06 13:20:00 Outpatient ROBERTKESHAWN Kamara MELISSA RAJPUT [id number] [facility] 2023-04-01 00:00:00 2023-04-01 00:00:00 Outpatient PREZAS ADRIANO RAJPUT [id number] [facility] 2023-03-17 16:20:00 2023-03-17 16:20:00 Outpatient KHASHABPATRICKRAMIREZ RAJPUT [id number] [facility] 2023-03-17 16:00:00 2023-03-17 16:00:00 Outpatient PREZAS ADRIANO RAJPUT [id number] [facility] 2023-03-17 14:45:00 2023-03-17 14:45:00 Outpatient MICHAELKEMAR YUN [id number] [facility] 2023-03-16 10:00:00 2023-03-16 10:00:00 Outpatient PURCELLESTHER RAMOS [id number] [facility] 2023-03-15 08:40:00 2023-03-15 08:40:00 Outpatient KHASHABIVIS MELISSA RAJPUT [id number] [facility] 2023-03-12 13:30:00 2023-03-12 13:30:00 Outpatient PREZAS, ADRIANOJUSTIN RAJPUT [id number] [facility] 2023-03-02 12:20:00 2023-03-02 12:20:00 Outpatient KEMAR RODRIGUEZ [id number] [facility] 2023-03-02 12:00:00 2023-03-02 12:00:00 Outpatient PURCELLESTHER RAMOS [id number] [facility] 2023-03-01 00:00:00 2023-03-01 00:00:00 Outpatient PREZAS ADRIANO RAJPUT [id number] [facility] 2023-02-23 21:41:00 2023-02-24 01:28:00 Emergency X BARIGILBERT KEATON [facility] [id number] [facility] 2023-02-23 21:41:00 2023-02-24 01:28:00 Emergency Keaton Patiño [facility] [id number] [facility] 2023-02-24 00:00:00 2023-02-24 00:00:00 Outpatient KIKO IVIS MELISSA RAJPUT [id number] [facility] 2023-02-23 00:00:00 2023-02-23 00:00:00 Outpatient ESTHER PURCELL [id number] [facility] 2023-02-23 00:00:00 2023-02-23 00:00:00 Outpatient ADRIANO AGEE [id number] [facility] 2023-02-23 00:00:00 2023-02-23 00:00:00 Outpatient ADRIANO AGEE [id number] [facility] 2023-02-22 00:00:00 2023-02-22 00:00:00 Outpatient ESTHER PURCELL [id number] [facility] 2023-02-22 00:00:00 2023-02-22 00:00:00 Outpatient MD MELISSA NOBLE [id number] [facility] 2023-02-22 00:00:00 2023-02-22 00:00:00 Outpatient TANGELA HERNANDEZ [id number] [facility] 2023-02-22 00:00:00 2023-02-22 00:00:00 Outpatient ONLY, NEGAR RAJPUT [id number] [facility] 2023-02-18 00:00:00 2023-02-18 00:00:00 Outpatient ADRIANO AGEE [id number] [facility] 2023-02-16 14:05:00 2023-02-16 14:05:00 Outpatient LAB MELISSA RAJPUT [id number] [facility] 2023-02-16 11:40:00 2023-02-16 11:40:00 Outpatient HERNANDEZTANGELA MELISSA RAJPUT [id number] [facility] 2023-02-16 11:00:00 2023-02-16 11:00:00 Outpatient ESTHER PURCELL [id number] [facility] 2023-02-16 00:00:00 2023-02-16 00:00:00 Outpatient MD MELISSA NOBLE [id number] [facility] 2023-02-15 00:00:00 2023-02-15 00:00:00 Outpatient MD MELISSA NOBLE [id number] [facility] 2023-02-10 15:00:00 2023-02-10 15:00:00 Outpatient TANGELA HERNANDEZ [id number] [facility] 2023-02-09 00:00:00 2023-02-09 00:00:00 Outpatient MELISSA RAJPUT [id number] [facility] 2023-02-03 14:30:00 2023-02-03 14:30:00 Outpatient LIZETH FLORES [id number] [facility] 2023-02-03 13:45:00 2023-02-03 13:45:00 Outpatient KEMAR RODRIGUEZ [id number] [facility] 2023-01-21 14:45:00 2023-01-21 14:45:00 Outpatient LIZETH FLORES [id number] [facility] 2023-01-21 00:00:00 2023-01-21 00:00:00 Outpatient MELISSA RAJPUT [id number] [facility] 2023-01-21 00:00:00 2023-01-21 00:00:00 Outpatient KEMAR RODRIGUEZ [id number] [facility] 2023-01-20 11:45:00 2023-01-20 11:45:00 Outpatient KEMAR RODRIGUEZ [id number] [facility] 2023-01-13 08:45:00 2023-01-13 08:45:00 Outpatient CHATO Garcia [id number] [facility] 2023-01-13 08:20:00 2023-01-13 08:20:00 Outpatient GIDEON RODRIGUEZ MELISSA RAJPUT [id number] [facility] 2023-01-08 00:00:00 2023-01-08 00:00:00 Outpatient PREZAADRIANO Resendez MELISSA RAJPUT [id number] [facility] 2023-01-07 14:05:00 2023-01-07 14:05:00 Outpatient MELISSA RAJPUT [id number] [facility] 2023-01-07 14:00:00 2023-01-07 14:00:00 Outpatient MELISSA RAJPUT [id number] [facility] 2023-01-06 15:10:00 2023-01-06 15:10:00 Outpatient GIDEON RODRIGUEZ MELISSA RAJPUT [id number] [facility] 2022-12-29 15:00:00 2022-12-29 15:00:00 Outpatient ERIC DURBIN [id number] [facility] 2022-12-29 00:00:00 2022-12-29 00:00:00 Outpatient PREZAS, ADRIANO RAJPUT [id number] [facility] 2022-12-28 00:00:00 2022-12-28 00:00:00 Outpatient MD MELISSA NOBLE [id number] [facility] 2022-12-25 00:00:00 2022-12-25 00:00:00 Outpatient SEBASTIAN CHUNG [id number] [facility] 2022-12-21 00:00:00 2022-12-21 00:00:00 Outpatient ANDREI MAR [id number] [facility] 2022-12-21 00:00:00 2022-12-21 00:00:00 Outpatient PREZAS, ADRIANO RAJPUT [id number] [facility] 2022-12-14 00:00:00 2022-12-14 00:00:00 Outpatient PREZASADRIANO [id number] [facility] 2022-12-11 14:15:00 2022-12-11 14:15:00 Outpatient LAB90 MELISSA MCWILLIAMSSEY [id number] [facility] 2022-12-11 13:45:00 2022-12-11 13:45:00 Outpatient PREZAS, ADRIANO RAJPUT MELISSA [id number] [facility] 2022-12-06 00:00:00 2022-12-06 00:00:00 Outpatient PREZAS, ADRIANO RAJPUT MELISSA [id number] [facility] 2022-11-27 13:30:00 2022-11-27 13:30:00 Outpatient PREZAS, ADRIANO RAJPUT MELISSA [id number] [facility] 2022-11-27 08:30:00 2022-11-27 08:30:00 Outpatient MICHAEL KEMAR MELISSA RAJPUT [id number] [facility] 2022-11-23 00:00:00 2022-11-23 00:00:00 Outpatient PREZAS, ADRIANO RAJPUT MELISSA [id number] [facility] 2022-11-18 00:00:00 2022-11-18 00:00:00 Outpatient PREZAS, ADRIANO MELISSA MELISSA [id number] [facility] 2022-11-16 14:30:00 2022-11-16 14:30:00 Outpatient MELISSA MELISSA [id number] [facility] 2022-11-16 00:00:00 2022-11-16 00:00:00 Outpatient PREZAS, ADRIANO MELISSA MELISSA [id number] [facility] 2022-11-16 00:00:00 2022-11-16 00:00:00 Outpatient PREZAS, ADRIANO MELISSA MELISSA [id number] [facility] 2022-11-16 00:00:00 2022-11-16 00:00:00 Outpatient PREZAS, ADRIANO MELISSA MELISSA [id number] [facility] 2022-11-11 11:30:00 2022-11-11 11:30:00 Outpatient PREZAS, ADRIANO MELISSA RAJPUT [id number] [facility] 2022-11-05 15:00:00 2022-11-05 15:00:00 Outpatient PURCELLESTHER RAMOS MELISSA RAJPUT [id number] [facility] 2022-11-02 00:00:00 2022-11-02 00:00:00 Outpatient PURCELLESTHER RAMOS MELISSA MELISSA [id number] [facility] 2022-11-02 00:00:00 2022-11-02 00:00:00 Outpatient PREZASADRIANO MELISSA RAJPUT [id number] [facility] 2022-11-02 00:00:00 2022-11-02 00:00:00 Outpatient PREZAS ADRIANO MELISSA RAJPUT [id number] [facility] 2022-10-30 13:40:00 2022-10-30 13:40:00 Outpatient SINDY GIDEON MELISSA RAJPUT [id number] [facility] 2022-10-30 13:35:00 2022-10-30 13:35:00 Outpatient [facility] MELISSA RAJPUT [id number] [facility] 2022-10-30 10:30:00 2022-10-30 10:30:00 Outpatient MICHAEL KEMAR MELISSA RAJPUT [id number] [facility] 2022-10-30 00:00:00 2022-10-30 00:00:00 Outpatient PREZASADRIANO MELISSA RAJPUT [id number] [facility] 2022-10-30 00:00:00 2022-10-30 00:00:00 Outpatient PREZASADRIANO MELISSA RAJPUT [id number] [facility] 2022-10-30 00:00:00 2022-10-30 00:00:00 Outpatient MELISSA RAJPUT [id number] [facility] 2022-10-29 12:40:00 2022-10-29 12:40:00 Outpatient LAB90 MELISSA RAJPUT [id number] [facility] 2022-10-28 16:20:00 2022-10-28 16:20:00 Outpatient IVIS HOOVER [id number] [facility] 2022-10-27 14:45:00 2022-10-27 14:45:00 Outpatient WENKER, SHMUEL MELISSA RAJPUT [id number] [facility] 2022-10-26 16:00:00 2022-10-26 16:00:00 Outpatient IVIS HOOVER MELISSA RAJPUT [id number] [facility] 2022-10-26 14:30:00 2022-10-26 14:30:00 Outpatient NUHA WINSTON MELISSA RAJPUT [id number] [facility] 2022-10-26 14:15:00 2022-10-26 14:15:00 Outpatient MELISSA RAJPUT [id number] [facility] 2022-10-23 14:30:00 2022-10-23 14:30:00 Outpatient SINDYGIDEON MELISSA RAJPUT [id number] [facility] 2022-10-19 08:50:00 2022-10-19 08:50:00 Outpatient NUHA WINSTON [facility]ELISSA RAJPUT [id number] [facility] 2022-10-16 00:00:00 2022-10-16 00:00:00 Outpatient NUHA WINSTON MELISSA RAJPUT [id number] [facility] 2022-10-13 15:20:00 2022-10-13 15:20:00 Outpatient MATEO ANTHONY MELISSA RAJPUT [id number] [facility] 2022-10-13 14:00:00 2022-10-13 14:00:00 Outpatient VF53 MELISSA RAJPUT [id number] [facility] 2022-10-13 10:20:00 2022-10-13 10:20:00 Outpatient LEONID ROSE [id number] [facility] 2022-10-02 00:00:00 2022-10-02 00:00:00 Outpatient MD MELISSA NOBLE [id number] [facility] 2022-10-01 00:00:00 2022-10-01 00:00:00 Outpatient ADRIANO AGEE [id number] [facility] 2022-09-30 00:00:00 2022-09-30 00:00:00 Outpatient PREZASADRIANO MELISSA [id number] [facility] 2022-09-30 00:00:00 2022-09-30 00:00:00 Outpatient HAMJORGE AYALA MELISSA MELISSA [id number] [facility] 2022-09-28 00:00:00 2022-09-28 00:00:00 Outpatient MATEO ANTHONY MELISSA RAJPUT [id number] [facility] 2022-09-28 00:00:00 2022-09-28 00:00:00 Outpatient PREZASADRIANO MELISSA MELISSA [id number] [facility] 2022-09-19 00:00:00 2022-09-19 00:00:00 Outpatient PREZAS, ADRIANO MELISSA RAJPUT [id number] [facility] 2022-09-15 00:00:00 2022-09-15 00:00:00 Outpatient PREZAS, ADRIANO MELISSA RAJPUT [id number] [facility] 2022-09-14 11:55:00 2022-09-14 11:55:00 Outpatient LABAnn MELISSA RAJPUT [id number] [facility] 2022-09-14 00:00:00 2022-09-14 00:00:00 Outpatient JORGE CHEEK MELISSA RAJPUT [id number] [facility] 2022-09-08 00:00:00 2022-09-08 00:00:00 Outpatient ROBERT, KESHAWN RAJPUT [id number] [facility] 2022-09-07 12:00:00 2022-09-07 12:00:00 Outpatient ROBERT KESHAWN RAJPUT [id number] [facility] 2022-09-04 00:00:00 2022-09-04 00:00:00 Outpatient PREZAS, ADRIANO MELISSA RAJPUT [id number] [facility] 2022-09-04 00:00:00 2022-09-04 00:00:00 Outpatient PREZASADRIANO MELISSA RAJPUT [id number] [facility] 2022-09-03 15:15:00 2022-09-03 15:15:00 Outpatient ESTHER PURCELL [id number] [facility] 2022-09-02 00:00:00 2022-09-02 00:00:00 Outpatient MD MELISSA NOBLE [id number] [facility] 2022-09-01 00:00:00 2022-09-01 00:00:00 Outpatient MD MELISSA NOBLE [id number] [facility] 2022-09-01 00:00:00 2022-09-01 00:00:00 Outpatient PREZASADRIANO [id number] [facility] 2022-08-31 00:00:00 2022-08-31 00:00:00 Outpatient PURCELL, ESTHER RAJPUT [id number] [facility] 2022-08-27 13:30:00 2022-08-27 13:30:00 Outpatient PREZASADRIANO [id number] [facility] 2022-08-19 11:30:00 2022-08-19 11:30:00 Outpatient UDOET GIDEON RAJPUT [id number] [facility] 2022-08-04 13:00:00 2022-08-04 13:00:00 Outpatient UDOETUK, GIDEON MELISSA RAJPUT [id number] [facility] 2022-07-30 00:00:00 2022-07-30 00:00:00 Outpatient HAM, JORGE MELISSA RAJPUT [id number] [facility] 2022-07-28 00:00:00 2022-07-28 00:00:00 Outpatient NOCNESS GrahamMATEO MELISSA RAJPUT [id number] [facility] 2022-07-28 00:00:00 2022-07-28 00:00:00 Outpatient PREZAS, ADRIANO RAJPUT [id number] [facility] 2022-07-28 00:00:00 2022-07-28 00:00:00 Outpatient PREZASADRIANO [id number] [facility] 2022-07-19 00:00:2022-07-19 00:00:00 Outpatient PREZAS, ADRIANO MELISSA RAJPUT [id number] [facility] [facility] 2022-07-15 13:15:00 2022-07-15 13:15:00 Outpatient MELISSA RAJPUT [id number] [facility] 2022-07-13 14:00:00 2022-07-13 14:00:00 Outpatient MATEO ANTHONY MELISSA RAJPUT [id number] [facility] 2022-07-10 00:00:00 2022-07-10 00:00:00 Outpatient PREZAS, ADRIANO MELISSA RAJPUT [id number] [facility] 2022-07-10 00:00:00 2022-07-10 00:00:00 Outpatient PREZAS, ADRIANO MELISSA RAJPUT [id number] [facility] 2022-07-09 13:30:00 2022-07-09 13:30:00 Outpatient LAB90 MELISSA RAJPUT [id number] [facility]-07 00:00:00 2022-07-07 00:00:00 Outpatient PREZAS, ADRIANO MELISSA RAJPUT [id number] [facility] 2022-07-03 00:00:00 2022-07-03 00:00:00 Outpatient MD MELISSA NOBLE [id number] [facility] 2022-06-30 14:30:00 2022-06-30 14:30:00 Outpatient PREZAS, ADRIANO MELISSA RAJPUT [id number] [facility] 2022-06-29 14:30:00 2022-06-29 14:30:00 Outpatient MORVIKYEDGAR LANDRYSHUA MELISSA RAJPUT [id number] [facility]22-[facility]-29 13:15:00 2022-06-29 13:15:00 Outpatient 1CHATO [id number] [facility] 2022-06-24 11:00:00 2022-06-24 11:00:00 Outpatient PREZAS, ADRIANO MELISSA RAJPUT [id number] [facility] 2022-06-24 00:00:00 2022-06-24 00:00:00 Outpatient PREZASADRIANO MELISSA RAJPUT [id number] [facility] 2022-06-24 00:00:00 2022-06-24 00:00:00 Outpatient NOCKMATEO MELISSA RAJPUT [id number] [facility] 2022-06-22 11:30:00 2022-06-22 11:30:00 Outpatient IVT, GABY RAJPUT [id number] [facility] 2022-06-22 00:00:00 2022-06-22 00:00:00 Outpatient MELISSA RAJPUT [id number] [facility] 2022-06-22 00:00:00 2022-06-22 00:00:00 Outpatient PREZASADRIANO MELISSA RAJPUT [id number] [facility] 2022-06-19 15:40:00 2022-06-19 15:40:00 Outpatient ROBERT, KESHAWN RAJPUT [id number] [facility] 2022-06-19 14:00:00 2022-06-19 14:00:00 Outpatient PURCELLESTHER RAMOS [id number] [facility] 2022-06-19 00:00:00 2022-06-19 00:00:00 Outpatient CARLTON HERNANDEZ [id number] [facility] 2022-06-17 00:00:00 2022-06-17 00:00:00 Outpatient NOCKMATEO MELISSA RAJPUT [id number] [facility] 2022-06-15 00:00:00 2022-06-15 00:00:00 Outpatient PREZASADRIANO MELISSA RAJPUT [id number] [facility] 2022-06-15 00:00:00 2022-06-15 00:00:00 Outpatient CARLTON HERNANDEZ [id number] [facility] 2022-06-12 14:20:00 2022-06-12 14:20:00 Outpatient KUMARISMA Low [id number] [facility] 2022-06-09 11:30:00 2022-06-09 11:30:00 Outpatient INFUSION, GABY RAJPUT [id number] [facility] 2022-06-02 00:00:00 2022-06-02 00:00:00 Outpatient RUBYANGELA MELISSA RAJPUT [id number] [facility] 2022-06-01 14:00:00 2022-06-01 14:00:00 Outpatient PREZAADRIANO Resendez [id number] [facility] 2022-06-01 00:00:00 2022-06-01 00:00:00 Outpatient MARY CARLTONDarryn RAJPUT [id number] [facility] 2022-05-26 10:00:00 2022-05-26 10:00:00 Outpatient IVT, GABY RAJPUT [id number] [facility] 2022-05-18 00:00:00 2022-05-18 00:00:00 Outpatient DIORZAIN HOLCOMB [id number] [facility] 2022-05-13 16:00:00 2022-05-13 16:00:00 Outpatient MELISSA RAJPUT [id number] [facility] 2022-05-12 11:35:00 2022-05-12 11:35:00 Outpatient TOMOGRAPHY, CK MELISSA RAJPUT [id number] [facility] 2022-05-12 11:05:00 2022-05-12 11:05:00 Outpatient TOMOGRAPHY, CK MELISSA RAJPUT [id number] [facility] 2022-05-12 10:40:00 2022-05-12 10:40:00 Outpatient NOCK, MATEO RAJPUT [id number] [facility] 2022-05-11 14:30:00 2022-05-11 14:30:00 Outpatient ALAKENNY, ENRIQUEO MELISSA RAJPUT [id number] [facility] 2022-05-08 10:00:00 2022-05-08 10:00:00 Outpatient PREZAADRIANO Resendez [id number] [facility] 2022-05-07 16:00:00 2022-05-07 16:00:00 Outpatient MATTHEW ASHFORD [id number] [facility] 2022-05-06 00:00:00 2022-05-06 00:00:00 Outpatient MELISSA MELISSA [id number] [facility] 2022-05-05 07:50:00 2022-05-05 07:50:00 Outpatient MELISSA MELISSA [id number] [facility] 2022-05-05 07:30:00 2022-05-05 07:30:00 Outpatient MELISSA RAJPUT [id number] [facility] 2022-05-05 00:00:00 2022-05-05 00:00:00 Outpatient PREZAMal, ADRIANO MELISSA RAJPUT [id number] Melissa [facility] 2022-05-05 00:00:00 2022-05-05 00:00:00 Outpatient PHOEBE ROWE MELISSA RAJPUT [id number] [facility] 2022-05-05 00:00:00 2022-05-05 00:00:00 Outpatient PREZAS, ADRIANO MELISSA RAJPUT [id number] [facility] 2022-05-05 00:00:00 2022-05-05 00:00:00 Outpatient MELISSA RAJPUT [id number] Melissa [facility] 2022-05-01 14:30:00 2022-05-01 14:30:00 Outpatient LAB90 MELISSA RAJPUT [id number] [facility] 2022-05-01 13:45:00 2022-05-01 13:45:00 Outpatient PREZAS, ADRIANO MELISSA RAJPUT [id number] Melissa Sey[facility] 2022-04-22 16:15:00 2022-04-22 16:15:00 Outpatient MELISSA RAJPUT [id number] Melissa [facility] 2022-04-22 10:00:00 2022-04-22 10:00:00 Outpatient IVIS HOOVER [id number] Melissa Seybold 2022-04-10 16:00:00 2022-04-10 16:00:00 Outpatient MELISSA RAJPUT [id number] Melissa [facility] 2022-04-10 00:00:00 2022-04-10 00:00:00 Outpatient PREZAS, ADRIANO MELISSA RAJPUT [id number] [facility]-09 00:00:00 2022-04-09 00:00:00 Outpatient PREZAADRIANO Resendez [id number] [facility] 2022-04-09 00:00:00 2022-04-09 00:00:00 Outpatient PREZAADRIANO Resendez [id number] [facility] 2022-04-09 00:00:00 2022-04-09 00:00:00 Outpatient PREZAADRIANO Resendez [id number] [facility] 2022-04-08 14:15:00 2022-04-08 14:15:00 Outpatient LAB90 MELISSA RAJPUT [id number] [facility] 2022-04-07 00:00:00 2022-04-07 00:00:00 Outpatient PREADRIANO POWELL [id number] [facility] 2022-04-06 13:40:00 2022-04-06 13:40:00 Outpatient LAB90 MELISSA RAJPUT [id number] [facility] 2022-04-03 15:15:00 2022-04-03 15:15:00 Outpatient PREZASADRIANO [id number] [facility] 2022-04-01 10:30:00 2022-04-01 10:30:00 Outpatient R ANDREW VERDUZCO [facility] [id number] [facility] 2022-04-01 10:30:00 2022-04-01 10:30:00 Outpatient R D[facility]ANDREW [facility] [id number] [facility] 2022-02-26 14:58:07 2022-02-26 14:58:07 Outpatient SFA SFA [id number] Matthew Brown 2022-02-20 14:15:19 2022-02-20 14:15:19 Outpatient SFA SFA [id number] Matthew Brown 2022-02-11 09:20:44 2022-02-11 09:20:44 Outpatient SFA SFA [id number] Mattehw Brown 2022-02-05 11:38:34 2022-02-05 11:38:34 Outpatient SFA [facility] [id number] Matthew Brown 2022-02-05 00:00:00 2022-02-05 00:00:00 Outpatient Visit [id number] 10:42:46 2021-11-17 10:42:46 Outpatient SFA [facility] [id number] Matthew Brown 2021-11-13 15:06:22 2021-11-13 15:06:22 Outpatient SFA [facility] [id number] Matthew Brown 2021-11-13 00:00:00 2021-11-13 00:00:00 Outpatient Visit [id number] 2021-10-09 00:00:00 2021-10-09 00:00:00 Outpatient R ROSETTA GALLARDO [facility] [id number] [facility] 2021-10-01 00:00:00 2021-10-01 00:00:00 Patient Outreach Malini Muñoz [place] [id number] [id number] [facility] 2021-10-01 00:00:00 2021-10-01 00:00:00 Telephone Malini Muñoz [facility] [id number] [id number] [facility] 2021-09-30 15:00:00 2021-09-30 16:30:37 Outpatient R DAXANDREW GILBERT O[facility]U [facility] [id number] [facility] 2021-09-30 15:00:00 2021-09-30 16:30:37 Outpatient R ANDREW VERDUZCO [facility] [id number] [facility] 2021-09-30 15:00:00 2021-09-30 16:30:37 Office Visit Andrew Verduzco [facility] 1..840.114 [id number] [id number] [id number] [facility] 2021-09-30 00:00:00 2021-09-30 00:00:00 Orders Only Doctor Unassigned, [place] [facility] 1..840.114 350.1.13.10 [id number] [id number] [facility] 2021-07-24 00:00:00 2021-07-24 00:00:00 Orders Only Doctor Unassigned, [place] [facility] [id number] [id number] [id number] [id number] [facility] 2021-04-11 14:20:00 2021-04-11 14:20:00 Outpatient R UNKNOWN, ATTENDING [facility] [id number] [facility] 2021-04-11 14:20:00 2021-04-11 14:20:00 Outpatient R UNKNOWN, ATTENDING [facility] [id number] [facility] 2021-04-07 21:43:00 2021-04-08 01:09:00 Emergency X LEXA GOFF [facility] ERT [id number] [facility] 2021-04-07 21:43:00 2021-04-08 01:09:00 Emergency Lexa Goff [facility] 1..840.114 350.1.13.10 [id number] [id number] [facility] 2019-08-21 08:00:00 2019-08-21 08:00:00 Outpatient PATRIA SANDOVAL [facility] [id number] [facility] 2019-07-24 21:47:47 2019-07-25 02:18:00 Emergency X Santos MOISE [facility] ERT [id number] [facility] Results Test Description Test Time Test Comments Results Result Co mments Source [facility] [id number] 18:40:14* Test Item Value Reference Range Interpretation Comme nts VENTRICULAR RATE (test code = 99898) BPM ATRIAL RATE (test code = 88114) BPM P-R INTERVAL (test code = 82832) 134 ms QRS DURATION (test code = 70034) 80 ms Q-T INTERVAL (test code = 75024) 408 ms QTC CALCULATION(BEZE (test code = 73066) 437 ms CALCULATED P AXIS (test code = 82012) degrees CALCULATED R AXIS (test code = 69844) degrees CALCULATED T AXIS (test code = 76100) degrees DIAGNOSIS (test code = 89910) Normal sinus rhythmPossible Inferior infarct , age undeterminedPoor R-wave progressionBorderline ECGNo previous ECGs availableConfirmed by Radha MCCALL ([id number]) on 11/11/2022 1:40:13 PM Melissa Grant - ExternalLIPID [id number] 05:52:40* Test Item Value Reference Range Interpretation [...] SPECIMENS. FOR MOREINFORMATION, SEE CLIENT ANNOUNCEMENT AT [email or web address] /[email or web address] RISK RATIO LDL/HDL (test code = 2238) 2.22 RATIO <3.22 COMPREHENSIVE METABOLIC [id number] 05:52:40* Test Item Value Reference Range Interpretation Comme nts GLUCOSE (test code = 2216) 166 MG/DL 70-99 H BUN (test code = 2207) 33 MG/DL 6-20 H CREATININE (test code = 2213) 1.77 MG/DL 0.60-1.30 H eGFR (2020 CKD-EPI) [...] ALL TESTING PERFORMED [facility] [address] [place] [address] [id number] WASHER CUTTER: JAYCEE RAMIREZ M.D. CLIA NUMBER [id number] [facility] [place]. [id number] HEMOGLOBIN [id number] 04:18:15* Test Item Value Reference Range Interpretation Comme nts HEMOGLOBIN A1c (test code = 44409) 7.5 % 4.2-5.6 H [employer] GUIDELINES FOR HGB A1C: [...] CONSIDER ALTERNATE TESTING OR LABORATORY CONSULTATION. HEMOGLOBIN [id number] 00:00:00* Test Item Value Reference Range Interpretation Comme nts HEMOGLOBIN A1c (test code = 39760) 7.5 % HEMOGLOBIN [id number] 00:00:00* Test Item Value Reference Range Interpretation Comme nts HEMOGLOBIN A1c (test code = 72010) 7.5 % HEMOGLOBIN [id number] 00:00:00* Test Item Value Reference Range Interpretation Comme nts HEMOGLOBIN A1c (test code = 96096) 7.5 % LIPID [id number] 00:00:00* Test Item Value Reference Range Interpretation Comme nts CHOLESTEROL (test code = 2210) 174 MG/DL TRIGLYCERIDES (test code = 2232) 192 MG/DL HDL CHOLESTEROL (test code = 2220) 45 MG/DL CALC LDL CHOL (test code = 2237) 100 MG/DL RISK RATIO LDL/HDL (test cod e = 2238) 2.22 RATIO LIPID [id number] 00:00:00* Test Item Value Reference Range Interpretation Comme nts CHOLESTEROL (test code = 2210) 174 MG/DL TRIGLYCERIDES (test code = 2232) 192 MG/DL HDL CHOLESTEROL (test code = 2220) 45 MG/DL CALC LDL CHOL (test code = 2237) 100 MG/DL RISK RATIO LDL/HDL (test cod e = 2238) 2.22 RATIO COMPREHENSIVE METABOLIC [id number] 00:00:00* Test Item Value Reference Range Interpretation Comme nts GLUCOSE (test code = 2217) 166 MG/DL BUN (test code = 2208) 33 MG/DL CREATININE (test code = 2214) 1.77 MG/DL eGFR (2020 CKD-EPI) (test co de = 75123) 35 ML/MIN/1.73 CALC BUN/CREAT (test code = [...] code = 2219) 8 U/L COMPREHENSIVE METABOLIC [id number] 00:00:00* Test Item Value Reference Range Interpretation Comme nts GLUCOSE (test code = 2217) 166 MG/DL BUN (test code = 2208) 33 MG/DL CREATININE (test code = 2214) 1.77 MG/DL eGFR (2020 CKD-EPI) (test co de = 53404) 35 ML/MIN/1.73 CALC BUN/CREAT (test code = [...] = 2219) 8 U/L POCT HEMOGLOBIN A1C [id number] 21:21:00* Test Item Value Reference Range Interpretation Comme [facility] POCT HBA1C (test code = 4548-4) 8.2 % 4-6 A Lab Interpretation (test cod e = 90483-0) Abnormal [facility]wood[facility]MO[facility] [id number] 05:24:49* Test Item Value Reference Range Interpretation Comme nts HEMOGLOBIN A1c (test code = 73463) 7.8 % 4.2-5.6 H [employer] GUIDELINES FOR HGB A1C: [...] CONSIDER ALTERNATE TESTING OR LABORATORY CONSULTATION. LIPID [id number] 05:18:45* Test Item Value Reference Range Interpretation [...] SPECIMENS. FOR MOREINFORMATION, SEE CLIENT ANNOUNCEMENT AT [email or web address] /CalcLDL-C RISK RATIO LDL/HDL (test code = 2238) 3.54 RATIO <3.22 H COMPREHENSIVE METABOLIC [id number] 05:18:45* Test Item Value Reference Range Interpretation Comme nts GLUCOSE (test code = 2217) 202 MG/DL 70-99 H BUN (test code = 2208) 23 MG/DL 6-20 H CREATININE (test code = 2214) 1.57 MG/DL 0.60-1.30 H eGFR (2020 CKD-EPI) (test code = 40843) 41 ML/MIN/1.73 >60 L CALC BUN/CREAT (test [...] PHOSPHATASE (test code = 2203) 98 U/L 40-120 AST (test code = 2218) 10 U/L 9-40 ALT (test code = 2219) 11 U/L 5-40 UNLESS OTHERWISE INDICATED, ALL TESTING PERFORMED [facility] [address] [place] [address] WASHER CUTTER: JAYCEE RAMIREZ M.D. CLIA NUMBER [id number] [facility] [place]. [id number] COMPREHENSIVE METABOLIC PANEL [ADDED]2021-07-26 00:00:00* Test Item Value Reference Range Interpretation Comme nts GLUCOSE (test code = 2217) 202 MG/DL BUN (test code = 2208) 23 MG/DL CREATININE (test code = 2214) 1.57 MG/DL eGFR (2020 CKD-EPI) (test co de = 91608) 41 ML/MIN/1.73 CALC BUN/CREAT (test code = [...] Comme nts HEMOGLOBIN A1c (test code = 81334) 7.8 % HEMOGLOBIN A1c [ADDED]2021-07-26 00:00:00* Test Item Value Reference Range Interpretation Comme nts HEMOGLOBIN A1c (test code = 08271) 7.8 % HEMOGLOBIN A1c [ADDED]2021-07-26 00:00:00* Test Item Value Reference Range Interpretation Comme nts HEMOGLOBIN A1c (test code = 22002) 7.8 % LIPID PANEL [ADDED]2021-07-26 00:00:00* Test [...] eGFR (2020 CKD-EPI) (test co de = 21049) 41 ML/MIN/1.73 CALC BUN/CREAT (test code = [...] eGFR (2020 CKD-EPI) (test co de = 63635) 41 ML/MIN/1.73 CALC BUN/CREAT (test code = [...] Comme nts HEMOGLOBIN A1c (test code = 08121) 7.8 % HEMOGLOBIN A1c [ADDED]2021-07-26 00:00:00* Test Item Value Reference Range Interpretation Comme nts HEMOGLOBIN A1c (test code = 52914) 7.8 % HEMOGLOBIN A1c [ADDED]2021-07-26 00:00:00* Test Item Value Reference Range Interpretation Comme nts HEMOGLOBIN A1c (test code = 05882) 7.8 % LIPID PANEL [ADDED]2021-07-26 00:00:00* Test [...] eGFR (2020 CKD-EPI) (test co de = 02069) 41 ML/MIN/1.73 CALC BUN/CREAT (test code = [...] MG/DL ALKALINE PHOSPHATASE (test code = 2203) 98 U/L AST (test code = 2218) 10 U/L ALT (test code = 2219) 11 U/L HEMOGLOBIN [id number] 06:11:51* Test Item Value Reference Range Interpretation Comme nts HEMOGLOBIN A1c (test code = 49551) 10.8 % 4.2-5.6 H [employer] GUIDELINES FOR HGB A1C: [...] CONSIDER ALTERNATE TESTING OR LABORATORY CONSULTATION. LIPID [id number] 05:14:42* Test Item Value Reference Range Interpretation Comme nts CHOLESTEROL (test code = 2210) 235 MG/DL <200 H TRIGLYCERIDES (test code = 2232) 215 MG/DL <150 H HDL CHOLESTEROL (test code = 2220) 51 MG/DL >39 CALC LDL CHOL (test code = 7) 148 MG/DL <100 H NOTE: CALCULATED LDL IS BASED ON [place]AT[place] METHOD WHICHINCLUDES ADJUSTABLE TRIGLYCERIDE:VLDL CHOLESTEROL RATIO.THIS FACTOR VARIES BY MEASURED TRIGLYCERIDE AND NON-HDLCHOLESTEROL CONCENTRATIONS WITH INCREASED CALCULATED LDL SEENIN HIGHER TRIGLYCERIDE OR LOWER NON-HDL SPECIMENS. FOR MOREINFORMATION, SEE CLIENT ANNOUNCEMENT AT [email or web address] /CalcLDL-C RISK RATIO LDL/HDL (test code = 2238) 2.90 RATIO <3.22 COMPREHENSIVE METABOLIC [id number] 05:14:42* Test Item Value Reference Range Interpretation Comme nts GLUCOSE (test code = 7) 58 MG/DL 70-99 L BUN (test code = 2207) 19 MG/DL 6-20 CREATININE (test code = 2214) 1.40 MG/DL 0.60-1.30 H eGFR (2020 CKD-EPI) (test code = 67835) 47 ML/MIN/1.73 >60 L CALC BUN/CREAT (test [...] normal/abnormal. ALKALINE PHOSPHATASE (test code = 2203) 109 U/L 40-120 AST (test code = 2218) 14 U/L 9-40 ALT (test code = 2219) 11 U/L 5-40 UNLESS OTHERWISE INDICATED, ALL TESTING PERFORMED [facility] [address] [place] [address] WASHER CUTTER: JAYCEE RAMIREZ M.D. CLIA NUMBER [id number] [facility] [place]. [id number] COMPREHENSIVE METABOLIC [id number] 00:00:00* Test Item Value Reference Range Interpretation Comme nts GLUCOSE (test code = 2217) 58 MG/DL BUN (test code = 2208) 19 MG/DL CREATININE (test code = 2214) 1.40 MG/DL eGFR (2020 CKD-EPI) (test co de = 52866) 47 ML/MIN/1.73 CALC BUN/CREAT (test code = 223) 14 RATIO SODIUM (test code = 223) 143 MEQ/L POTASSIUM (test code = 2228) [...] code = 2219) 11 U/L COMPREHENSIVE METABOLIC [id number] 00:00:00* Test Item Value Reference Range Interpretation Comme nts GLUCOSE (test code = 2217) 58 MG/DL BUN (test code = 2208) 19 MG/DL CREATININE (test code = 2214) 1.40 MG/DL eGFR (2020 CKD-EPI) (test co de = 17978) 47 ML/MIN/1.73 CALC BUN/CREAT (test code = [...] (test code = 2219) 11 U/L HEMOGLOBIN [id number] 00:00:00* Test Item Value Reference Range Interpretation Comme nts HEMOGLOBIN A1c (test code = 81713) 10.8 % HEMOGLOBIN [id number] 00:00:00* Test Item Value Reference Range Interpretation Comme nts HEMOGLOBIN A1c (test code = 99253) 10.8 % HEMOGLOBIN [id number] 00:00:00* Test Item Value Reference Range Interpretation Comme nts HEMOGLOBIN A1c (test code = 23225) 10.8 % LIPID [id number] 00:00:00* Test Item Value Reference Range Interpretation Comme nts CHOLESTEROL (test code = 2210) 235 MG/DL TRIGLYCERIDES (test code = 2232) 215 MG/DL HDL CHOLESTEROL (test code = 2220) 51 MG/DL CALC LDL CHOL (test code = 2237) 148 MG/DL RISK RATIO LDL/HDL (test cod e = 2238) 2.90 RATIO LIPID [id number] 00:00:00* Test Item Value Reference Range Interpretation Comme nts CHOLESTEROL (test code = 2210) 235 MG/DL TRIGLYCERIDES (test code = 2232) 215 MG/DL HDL CHOLESTEROL (test code = 2220) 51 MG/DL CALC LDL CHOL (test code = 2237) 148 MG/DL RISK RATIO LDL/HDL (test cod e = 2238) 2.90 RATIO COMPREHENSIVE METABOLIC [id number] 00:00:00* Test Item Value Reference Range Interpretation Comme nts GLUCOSE (test code = 2217) 58 MG/DL BUN (test code = 2208) 19 MG/DL CREATININE (test code = 2214) 1.40 MG/DL eGFR (2020 CKD-EPI) (test co de = 37253) 47 ML/MIN/1.73 CALC BUN/CREAT (test code = [...] code = 2219) 11 U/L COMPREHENSIVE METABOLIC [id number] 00:00:00* Test Item Value Reference Range Interpretation Comme nts GLUCOSE (test code = 2217) 58 MG/DL BUN (test code = 2208) 19 MG/DL CREATININE (test code = 2214) 1.40 MG/DL eGFR (2020 CKD-EPI) (test co de = 74445) 47 ML/MIN/1.73 CALC BUN/CREAT (test code = [...] (test code = 2219) 11 U/L HEMOGLOBIN [id number] 00:00:00* Test Item Value Reference Range Interpretation Comme nts HEMOGLOBIN A1c (test code = 40443) 10.8 % HEMOGLOBIN [id number] 00:00:00* Test Item Value Reference Range Interpretation Comme nts HEMOGLOBIN A1c (test code = 61989) 10.8 % HEMOGLOBIN [id number] 00:00:00* Test Item Value Reference Range Interpretation Comme nts HEMOGLOBIN A1c (test code = 49216) 10.8 % LIPID [id number] 00:00:00* Test Item Value Reference Range Interpretation Comme nts CHOLESTEROL (test code = 2210) 235 MG/DL TRIGLYCERIDES (test code = 2232) 215 MG/DL HDL CHOLESTEROL (test code = 2220) 51 MG/DL CALC LDL CHOL (test code = 2237) 148 MG/DL RISK RATIO LDL/HDL (test cod e = 2238) 2.90 RATIO LIPID [id number] 00:00:00* Test Item Value Reference Range Interpretation Comme nts CHOLESTEROL (test code = 2210) 235 MG/DL TRIGLYCERIDES (test code = 2232) 215 MG/DL HDL CHOLESTEROL (test code = 2220) 51 MG/DL CALC LDL CHOL (test code = 2237) 148 MG/DL RISK RATIO LDL/HDL (test cod e = 2238) 2.90 RATIO HEMOGLOBIN [id number] 11:23:29* Test Item Value Reference Range Interpretation Comme nts HEMOGLOBIN A1c (test code = 59761) 13.0 % 4.2-5.6 H [employer] GUIDELINES FOR HGB A1C: [...] OR LABORATORY CONSULTATION. CBC W/AUTO DIFF WITH [id number] 10:40:41* Test Item Value Reference Range Interpretation [...] = 1065) 0.0 /100 WBC'S See_Comment [Automated [employer]] The system which generated this result [...] 0.00-0.10 ABS NUCLEATED RBCS (test code = 30043) 0.00 K/UL 0.00-0.11 TSH, THIRD [id number] 06:03:58* Test Item Value Reference Range Interpretation Comme nts TSH, THIRD GENERATION (test code = 2821) 5.840 UIU/ML 0.400-4.100 H UNLESS OTHERWISE INDICATED, ALL TESTING PERFORMED [facility] [address] [place] [id number] [employer] CUTTER: JAYCEE RAMIREZ M.D. CLIA NUMBER [id number] [facility] [place] [id number] LIPID [id number] 05:12:52* Test Item Value Reference Range Interpretation [...] SPECIMENS. FOR MOREINFORMATION, SEE CLIENT ANNOUNCEMENT AT [email or web address] CalcLDL-C RISK RATIO LDL/HDL (test code = 2238) 4.13 RATIO <3.22 H UNABLE TO DONNA CULATE COMPREHENSIVE METABOLIC [id number] 05:12:52* Test Item Value Reference Range Interpretation Comme nts GLUCOSE (test code = 2217) 304 MG/DL 70-99 H BUN (test code = 2208) 26 MG/DL 6-20 H CREATININE (test code = 2214) 1.81 MG/DL 0.60-1.30 H eGFR (2020 CKD-EPI) (test code = 62912) 34 ML/MIN/1.73 >60 L CALC BUN/CREAT (test [...] = 2219) 13 U/L 5-40 COMPREHENSIVE METABOLIC [id number] 00:00:00* Test Item Value Reference Range Interpretation Comme nts GLUCOSE (test code = 2217) 304 MG/DL BUN (test code = 2208) 26 MG/DL CREATININE (test code = 2214) 1.81 MG/DL eGFR (2020 CKD-EPI) (test co de = 86668) 34 ML/MIN/1.73 CALC BUN/CREAT (test code = [...] code = 2219) 13 U/L COMPREHENSIVE METABOLIC [id number] 00:00:00* Test Item Value Reference Range Interpretation Comme nts GLUCOSE (test code = 2217) 304 MG/DL BUN (test code = 2208) 26 MG/DL CREATININE (test code = 2214) 1.81 MG/DL eGFR (2020 CKD-EPI) (test co de = 37334) 34 ML/MIN/1.73 CALC BUN/CREAT (test code = [...] ALT (test code = 2219) 13 U/L [id number] 00:00:00* Test Item Value Reference Range Interpretation Comme nts TSH, THIRD GENERATION (test code = 2821) 5.840 UIU/ML [id number] 00:00:00* Test Item Value Reference Range Interpretation Comme nts TSH, THIRD GENERATION (test code = 2821) 5.840 UIU/ML [id number] 00:00:00* Test Item Value Reference Range Interpretation Comme nts TSH, THIRD GENERATION (test code = 2821) 5.840 UIU/ML CBC W/AUTO [id number] 00:00:00* Test Item Value Reference Range Interpretation [...] ABS NUCLEATED RBCS (test cod e = 91061) 0.00 K/UL CBC W/AUTO [id number] 00:00:00* Test Item Value Reference Range Interpretation [...] ABS NUCLEATED RBCS (test cod e = 40668) 0.00 K/UL CBC W/AUTO [id number] 00:00:00* Test Item Value Reference Range Interpretation [...] ABS NUCLEATED RBCS (test cod e = 17986) 0.00 K/UL HEMOGLOBIN [id number] 00:00:00* Test Item Value Reference Range Interpretation Comme nts HEMOGLOBIN A1c (test code = 19100) 13.0 % HEMOGLOBIN [id number] 00:00:00* Test Item Value Reference Range Interpretation Comme nts HEMOGLOBIN A1c (test code = 14330) 13.0 % HEMOGLOBIN [id number] 00:00:00* Test Item Value Reference Range Interpretation Comme nts HEMOGLOBIN A1c (test code = 95072) 13.0 % LIPID [id number] 00:00:00* Test Item Value Reference Range Interpretation Comme nts CHOLESTEROL (test code = 2210) 278 MG/DL TRIGLYCERIDES (test code = 2232) 553 MG/DL HDL CHOLESTEROL (test code = 2220) 38 MG/DL CALC LDL CHOL (test code = 2237) (NOTE) MG/DL RISK RATIO LDL/HDL (test cod e = 2238) 4.13 RATIO LIPID [id number] 00:00:00* Test Item Value Reference Range Interpretation Comme nts CHOLESTEROL (test code = 2210) 278 MG/DL TRIGLYCERIDES (test code = 2232) 553 MG/DL HDL CHOLESTEROL (test code = 2220) 38 MG/DL CALC LDL CHOL (test code = 2237) (NOTE) MG/DL RISK RATIO LDL/HDL (test cod e = 2238) 4.13 RATIO COMPREHENSIVE METABOLIC [id number] 00:00:00* Test Item Value Reference Range Interpretation Comme nts GLUCOSE (test code = 2217) 304 MG/DL BUN (test code = 2208) 26 MG/DL CREATININE (test code = 2214) 1.81 MG/DL eGFR (2020 CKD-EPI) (test co de = 10873) 34 ML/MIN/1.73 CALC BUN/CREAT (test code = [...] code = 2219) 13 U/L COMPREHENSIVE METABOLIC [id number] 00:00:00* Test Item Value Reference Range Interpretation Comme nts GLUCOSE (test code = 2217) 304 MG/DL BUN (test code = 2208) 26 MG/DL CREATININE (test code = 2214) 1.81 MG/DL eGFR (2020 CKD-EPI) (test co de = 14577) 34 ML/MIN/1.73 CALC BUN/CREAT (test code = [...] ALT (test code = 2219) 13 U/L [id number] 00:00:00* Test Item Value Reference Range Interpretation Comme nts TSH, THIRD GENERATION (test code = 2821) 5.840 UIU/ML [id number] 00:00:00* Test Item Value Reference Range Interpretation Comme nts TSH, THIRD GENERATION (test code = 2821) 5.840 UIU/ML [id number] 00:00:00* Test Item Value Reference Range Interpretation Comme nts TSH, THIRD GENERATION (test code = 2821) 5.840 UIU/ML CBC W/AUTO [id number] 00:00:00* Test Item Value Reference Range Interpretation [...] ABS NUCLEATED RBCS (test cod e = 65025) 0.00 K/UL CBC W/AUTO [id number] 00:00:00* Test Item Value Reference Range Interpretation [...] ABS NUCLEATED RBCS (test cod e = 21686) 0.00 K/UL CBC W/AUTO [id number] 00:00:00* Test Item Value Reference Range Interpretation [...] ABS NUCLEATED RBCS (test cod e = 77263) 0.00 K/UL HEMOGLOBIN [id number] 00:00:00* Test Item Value Reference Range Interpretation Comme nts HEMOGLOBIN A1c (test code = 99788) 13.0 % HEMOGLOBIN [id number] 00:00:00* Test Item Value Reference Range Interpretation Comme nts HEMOGLOBIN A1c (test code = 74854) 13.0 % HEMOGLOBIN [id number] 00:00:00* Test Item Value Reference Range Interpretation Comme nts HEMOGLOBIN A1c (test code = 88186) 13.0 % LIPID [id number] 00:00:00* Test Item Value Reference Range Interpretation Comme nts CHOLESTEROL (test code = 2210) 278 MG/DL TRIGLYCERIDES (test code = 2232) 553 MG/DL HDL CHOLESTEROL (test code = 2220) 38 MG/DL CALC LDL CHOL (test code = 2237) (NOTE) MG/DL RISK RATIO LDL/HDL (test cod e = 2238) 4.13 RATIO LIPID [id number] 00:00:00* Test Item Value Reference Range Interpretation Comme nts CHOLESTEROL (test code = 2210) 278 MG/DL TRIGLYCERIDES (test code = 2232) 553 MG/DL HDL CHOLESTEROL (test code = 2220) 38 MG/DL CALC LDL CHOL (test code = 2237) (NOTE) MG/DL RISK RATIO LDL/HDL (test cod e = 2238) 4.13 RATIO LIPID [id number] 04:41:06* Test Item Value Reference Range Interpretation [...] SPECIMENS. FOR MOREINFORMATION, SEE CLIENT ANNOUNCEMENT AT [email or web address] CalcLDL-C RISK RATIO LDL/HDL (test code = 223) 3.83 RATIO <3.22 H UNABLE TO DONNA CULATE COMPREHENSIVE METABOLIC [id number] 04:41:06* Test Item Value Reference Range Interpretation Comme nts GLUCOSE (test code = 221) 87 MG/DL 70-99 BUN (test code = 2207) 19 MG/DL 6-20 CREATININE (test code = 221) 1.31 MG/DL 0.60-1.30 H EFFECTIVE 2020, [facility] HAS IMPLEMENTED THE NKF-ASN RECOMMENDED KD-EPI EGFR REFIT CALCULATION THAT DOES NOT INCLUDE A COEFFICIENT FORRACE. FOR MORE INFORMATION, SEE ANNOUNCEMENT [email or web address] (2020 CKD-EPI) (test code = 86747) 51 ML/MIN/1.73 >60 L CALC BUN/CREAT (test code = 223) 15 RATIO 6-28 SODIUM (test code = 223) 142 MEQ/L 133-146 POTASSIUM (test code = 2228) 3.8 MEQ/L 3.5-5.4 CHLORIDE (test code = 221) 106 MEQ/L 95-107 CARBON DIOXIDE (test code = 220) 24 MEQ/L 19-31 CALCIUM (test code = 2208) 9.1 MG/DL 8.5-10.5 PROTEIN, TOTAL (test code = 2228) 7.2 G/DL 6.1-8.3 ALBUMIN (test code = 2200) 3.8 G/DL 3.5-5.2 CALC GLOBULIN (test code [...] 5-40 UNLESS OTHERWISE INDICATED, ALL TESTING PERFORMED [facility] [employer] [address] [place] [address] WASHER CUTTER: JAYCEE RAMIREZ M.D. CLIA NUMBER [id number] [facility] [place]. [id number] HEMOGLOBIN [id number] 02:36:52* Test Item Value Reference Range Interpretation Comme [facility] HEMOGLOBIN A1c (test code = 06889) 7.3 % 4.2-5.6 H [employer] GUIDELINES FOR HGB A1C: [...] ALTERNATE TESTING OR LABORATORY CONSULTATION. COMPREHENSIVE METABOLIC [id number] 00:00:00* Test Item Value Reference Range Interpretation Comme nts GLUCOSE (test code = 2217) 87 MG/DL BUN (test code = 2208) 19 MG/DL CREATININE (test code = 2214) 1.31 MG/DL eGFR (2020 CKD-EPI) (test co de = 39612) 51 ML/MIN/1.73 CALC BUN/CREAT (test code = [...] code = 2219) 13 U/L COMPREHENSIVE METABOLIC [id number] 00:00:00* Test Item Value Reference Range Interpretation Comme nts GLUCOSE (test code = 2217) 87 MG/DL BUN (test code = 2208) 19 MG/DL CREATININE (test code = 2214) 1.31 MG/DL eGFR (2020 CKD-EPI) (test co de = 06396) 51 ML/MIN/1.73 CALC BUN/CREAT (test code = [...] (test code = 2219) 13 U/L HEMOGLOBIN [id number] 00:00:00* Test Item Value Reference Range Interpretation Comme nts HEMOGLOBIN A1c (test code = 36559) 7.3 % HEMOGLOBIN [id number] 00:00:00* Test Item Value Reference Range Interpretation Comme nts HEMOGLOBIN A1c (test code = 06842) 7.3 % HEMOGLOBIN [id number] 00:00:00* Test Item Value Reference Range Interpretation Comme nts HEMOGLOBIN A1c (test code = 20909) 7.3 % LIPID [id number] 00:00:00* Test Item Value Reference Range Interpretation Comme nts CHOLESTEROL (test code = 2210) 230 MG/DL TRIGLYCERIDES (test code = 2232) 455 MG/DL HDL CHOLESTEROL (test code = 2220) 35 MG/DL CALC LDL CHOL (test code = 2237) (NOTE) MG/DL RISK RATIO LDL/HDL (test cod e = 2238) 3.83 RATIO LIPID [id number] 00:00:00* Test Item Value Reference Range Interpretation Comme nts CHOLESTEROL (test code = 2210) 230 MG/DL TRIGLYCERIDES (test code = 2232) 455 MG/DL HDL CHOLESTEROL (test code = 2220) 35 MG/DL CALC LDL CHOL (test code = 2237) (NOTE) MG/DL RISK RATIO LDL/HDL (test cod e = 2238) 3.83 RATIO COMPREHENSIVE METABOLIC [id number] 00:00:00* Test Item Value Reference Range Interpretation Comme nts GLUCOSE (test code = 2217) 87 MG/DL BUN (test code = 2208) 19 MG/DL CREATININE (test code = 2214) 1.31 MG/DL eGFR (2020 CKD-EPI) (test co de = 00854) 51 ML/MIN/1.73 CALC BUN/CREAT (test code = [...] code = 2219) 13 U/L COMPREHENSIVE METABOLIC [id number] 00:00:00* Test Item Value Reference Range Interpretation Comme nts GLUCOSE (test code = 2217) 87 MG/DL BUN (test code = 2208) 19 MG/DL CREATININE (test code = 2214) 1.31 MG/DL eGFR (2020 CKD-EPI) (test co de = 51767) 51 ML/MIN/1.73 CALC BUN/CREAT (test code = [...] (test code = 2219) 13 U/L HEMOGLOBIN [id number] 00:00:00* Test Item Value Reference Range Interpretation Comme nts HEMOGLOBIN A1c (test code = 20508) 7.3 % HEMOGLOBIN [id number] 00:00:00* Test Item Value Reference Range Interpretation Comme nts HEMOGLOBIN A1c (test code = 65375) 7.3 % HEMOGLOBIN [id number] 00:00:00* Test Item Value Reference Range Interpretation Comme nts HEMOGLOBIN A1c (test code = 42936) 7.3 % LIPID [id number] 00:00:00* Test Item Value Reference Range Interpretation Comme nts CHOLESTEROL (test code = 2210) 230 MG/DL TRIGLYCERIDES (test code = 2232) 455 MG/DL HDL CHOLESTEROL (test code = 2220) 35 MG/DL CALC LDL CHOL (test code = 2237) (NOTE) MG/DL RISK RATIO LDL/HDL (test cod e = 2238) 3.83 RATIO LIPID [id number] 00:00:00* Test Item Value Reference Range Interpretation Comme nts CHOLESTEROL (test code = 2210) 230 MG/DL TRIGLYCERIDES (test code = 2232) 455 MG/DL HDL CHOLESTEROL (test code = 2220) 35 MG/DL CALC LDL CHOL (test code = 2237) (NOTE) MG/DL RISK RATIO LDL/HDL (test cod e = 2238) 3.83 RATIO COMPREHENSIVE METABOLIC [id number] 00:00:00* Test Item Value Reference Range Interpretation Comme nts GLUCOSE (test code = 2217) 147 MG/DL BUN (test code = 2208) 23 MG/DL CREATININE (test code = 2214) 1.27 MG/DL eGFR AMER. (test cod e = 45372) 59 ML/MIN/1.73 eGFR NON- AMER. (test code = 63625) 51 ML/MIN/1.73 CALC BUN/CREAT (test code = [...] (test code = 2219) 11 U/L HEMOGLOBIN [id number] 00:00:00* Test Item Value Reference Range Interpretation Comme nts HEMOGLOBIN A1c (test code = 43551) 7.2 % HEMOGLOBIN [id number] 00:00:00* Test Item Value Reference Range Interpretation Comme nts HEMOGLOBIN A1c (test code = 76954) 7.2 % HEMOGLOBIN [id number] 00:00:00* Test Item Value Reference Range Interpretation Comme nts HEMOGLOBIN A1c (test code = 86357) 7.2 % LIPID [id number] 00:00:00* Test Item Value Reference Range Interpretation Comme nts CHOLESTEROL (test code = 2210) 250 MG/DL TRIGLYCERIDES (test code = 2232) 312 MG/DL HDL CHOLESTEROL (test code = 2220) 41 MG/DL CALC LDL CHOL (test code = 2237) 161 MG/DL RISK RATIO LDL/HDL (test cod e = 2238) 3.93 RATIO LIPID [id number] 00:00:00* Test Item Value Reference Range Interpretation Comme nts CHOLESTEROL (test code = 2210) 250 MG/DL TRIGLYCERIDES (test code = 2232) 312 MG/DL HDL CHOLESTEROL (test code = 2220) 41 MG/DL CALC LDL CHOL (test code = 2237) 161 MG/DL RISK RATIO LDL/HDL (test cod e = 2238) 3.93 RATIO COMPREHENSIVE METABOLIC [id number] 00:00:00* Test Item Value Reference Range Interpretation Comme nts GLUCOSE (test code = 2217) 147 MG/DL BUN (test code = 2208) 23 MG/DL CREATININE (test code = 2214) 1.27 MG/DL eGFR AMER. (test cod e = 17475) 59 ML/MIN/1.73 eGFR NON- AMER. (test code = 51078) 51 ML/MIN/1.73 CALC BUN/CREAT (test code = [...] code = 2219) 11 U/L COMPREHENSIVE METABOLIC [id number] 00:00:00* Test Item Value Reference Range Interpretation Comme nts GLUCOSE (test code = 2217) 147 MG/DL BUN (test code = 2208) 23 MG/DL CREATININE (test code = 2214) 1.27 MG/DL eGFR AMER. (test cod e = 78327) 59 ML/MIN/1.73 eGFR NON- AMER. (test code = 17394) 51 ML/MIN/1.73 CALC BUN/CREAT (test code = [...] (test code = 2219) 11 U/L HEMOGLOBIN [id number] 00:00:00* Test Item Value Reference Range Interpretation Comme nts HEMOGLOBIN A1c (test code = 76172) 7.2 % HEMOGLOBIN [id number] 00:00:00* Test Item Value Reference Range Interpretation Comme nts HEMOGLOBIN A1c (test code = 98381) 7.2 % HEMOGLOBIN [id number] 00:00:00* Test Item Value Reference Range Interpretation Comme nts HEMOGLOBIN A1c (test code = 47697) 7.2 % LIPID [id number] 00:00:00* Test Item Value Reference Range Interpretation Comme nts CHOLESTEROL (test code = 2210) 250 MG/DL TRIGLYCERIDES (test code = 2232) 312 MG/DL HDL CHOLESTEROL (test code = 2220) 41 MG/DL CALC LDL CHOL (test code = 2237) 161 MG/DL RISK RATIO LDL/HDL (test cod e = 2238) 3.93 RATIO LIPID [id number] 00:00:00* Test Item Value Reference Range Interpretation Comme nts CHOLESTEROL (test code = 2210) 250 MG/DL TRIGLYCERIDES (test code = 2232) 312 MG/DL HDL CHOLESTEROL (test code = 2220) 41 MG/DL CALC LDL CHOL (test code = 2237) 161 MG/DL RISK RATIO LDL/HDL (test cod e = 2238) 3.93 RATIO COMPREHENSIVE METABOLIC [id number] 00:00:00* Test Item Value Reference Range Interpretation Comme nts GLUCOSE (test code = 2217) 147 MG/DL BUN (test code = 2208) 23 MG/DL CREATININE (test code = 2214) 1.27 MG/DL eGFR AMER. (test cod e = 63255) 59 ML/MIN/1.73 eGFR NON- AMER. (test code = 59298) 51 ML/MIN/1.73 CALC BUN/CREAT (test code = [...] = 2219) 11 U/L PAP TEST, THINPREP, [id number] 00:00:00* Test Item Value Reference Range Interpretation Comme nts SOURCE: (test code = 8001) Endocervical SLIDES: (test code = 8011) 1 LMP: (test code = 8021) 06/27/2020 SPECIMEN ADEQUACY: (test code = 72992) (NOTE) INTERPRETATION: (test code = 97452) NILM/NO EPITH. ABNORMALITY;SEE BELOW PLATING OPERATOR: (test code = 8101) Gudelia Pino, CT(ASCP) QC TECHNOLOGIST: (test code = 8111) Justice Conner,SCT(ASCP)IAC LOCATION: (test code = 02447) (NOTE) CPT: (test code = 8140) (NOTE) PAP TEST, THINPREP, [id number] 00:00:00* Test Item Value Reference Range Interpretation Comme nts SOURCE: (test code = 8001) Endocervical SLIDES: (test code = 8011) 1 LMP: (test code = 8021) 06/27/2020 SPECIMEN ADEQUACY: (test code = 05821) (NOTE) INTERPRETATION: (test code = 81576) NILM/NO EPITH. ABNORMALITY;SEE BELOW PLATING OPERATOR: (test code = 8101) OSCAR Heaton(ASCP) QC TECHNOLOGIST: (test code = 8111) MICHELE Perez(ASCP)IAC LOCATION: (test code = 99685) (NOTE) CPT: (test code = 8140) (NOTE) PAP TEST, THINPREP, [id number] 00:00:00* Test Item Value Reference Range Interpretation Comme nts SOURCE: (test code = 8001) Endocervical SLIDES: (test code = 8011) 1 LMP: (test code = 8021) 06/27/2020 SPECIMEN ADEQUACY: (test code = 47216) (NOTE) INTERPRETATION: (test code = 63198) NILM/NO EPITH. ABNORMALITY;SEE BELOW PLATING OPERATOR: (test code = 8101) OSCAR Heaton(ASCP) QC TECHNOLOGIST: (test code = 8111) MICHELE Perez(ASCP)IAC LOCATION: (test code = 28398) (NOTE) CPT: (test code = 8140) (NOTE) PAP TEST, THINPREP, [id number] 00:00:00* Test Item Value Reference Range Interpretation Comme nts SOURCE: (test code = 8001) Endocervical SLIDES: (test code = 8011) 1 LMP: (test code = 8021) 06/27/2020 SPECIMEN ADEQUACY: (test code = 44120) (NOTE) INTERPRETATION: (test code = 32398) NILM/NO EPITH. ABNORMALITY;SEE BELOW PLATING OPERATOR: (test code = 8101) OSCAR Heaton(ASCP) QC TECHNOLOGIST: (test code = 8111) MICHELE Perez(ASCP)IAC LOCATION: (test code = 23601) (NOTE) CPT: (test code = 8140) (NOTE) CULTURE, [id number] 00:00:00* Test Item Value Reference Range Interpretation Comme nts CULTURE, URINE (test code = 73581) SPECIMEN NUMBER: [id number] CULTURE, [id number] 00:00:00* Test Item Value Reference Range Interpretation Comme nts CULTURE, URINE (test code = 50410) SPECIMEN NUMBER: [id number] CULTURE, [id number] 00:00:00* Test Item Value Reference Range Interpretation Comme nts CULTURE, URINE (test code = 26294) SPECIMEN NUMBER: [id number] CULTURE, [id number] 00:00:00* Test Item Value Reference Range Interpretation Comme nts CULTURE, URINE (test code = 62311) SPECIMEN NUMBER: [id number] HPV HIGH RISK WITH GENOTYPE, [id number] 00:00:00* Test Item Value Reference Range Interpretation Comme nts HPV HIGH RISK INTERP (test c ode = 32649) POSITIVE HPV 16 (test code = 18139) NEGATIVE HPV 18 (test code = 78049) NEGATIVE HPV, HR, OTHER GENOTYPES (te st code = 80933) POSITIVE HPV HIGH RISK WITH GENOTYPE, [id number] 00:00:00* Test Item Value Reference Range Interpretation Comme nts HPV HIGH RISK INTERP (test c ode = 16225) POSITIVE HPV 16 (test code = 12668) NEGATIVE HPV 18 (test code = 96339) NEGATIVE HPV, HR, OTHER GENOTYPES (te st code = 10860) POSITIVE HPV HIGH RISK WITH GENOTYPE, [id number] 00:00:00* Test Item Value Reference Range Interpretation Comme nts HPV HIGH RISK INTERP (test c ode = 79471) POSITIVE HPV 16 (test code = 94081) NEGATIVE HPV 18 (test code = 31931) NEGATIVE HPV, HR, OTHER GENOTYPES (te st code = 76669) POSITIVE HPV HIGH RISK WITH GENOTYPE, [id number] 00:00:00* Test Item Value Reference Range Interpretation Comme nts HPV HIGH RISK INTERP (test c ode = 65293) POSITIVE HPV 16 (test code = 74924) NEGATIVE HPV 18 (test code = 11574) NEGATIVE HPV, HR, OTHER GENOTYPES (te st code = 17785) POSITIVE VITAMIN D, 25 [id number] 00:00:00* Test Item Value Reference Range Interpretation Comme nts VITAMIN D, 25 OH (test code = 4958) TEST NOT PERFORMED NG/ML VITAMIN D, 25 [id number] 00:00:00* Test Item Value Reference Range Interpretation Comme nts VITAMIN D, 25 OH (test code = 4958) TEST NOT PERFORMED NG/ML VITAMIN D, 25 [id number] 00:00:00* Test Item Value Reference Range Interpretation Comme nts VITAMIN D, 25 OH (test code = 4958) TEST NOT PERFORMED NG/ML VITAMIN D, 25 [id number] 00:00:00* Test Item Value Reference Range Interpretation Comme nts VITAMIN D, 25 OH (test code = 4958) TEST NOT PERFORMED NG/ML CBC W/AUTO [id number] 00:00:00* Test Item Value Reference Range Interpretation [...] ABS NUCLEATED RBCS (test cod e = 49711) 0.00 K/UL CBC W/AUTO [id number] 00:00:00* Test Item Value Reference Range Interpretation [...] ABS NUCLEATED RBCS (test cod e = 28498) 0.00 K/UL CBC W/AUTO [id number] 00:00:00* Test Item Value Reference Range Interpretation [...] ABS NUCLEATED RBCS (test cod e = 89152) 0.00 K/UL CBC W/AUTO [id number] 00:00:00* Test Item Value Reference Range Interpretation [...] ABS NUCLEATED RBCS (test cod e = 46691) 0.00 K/UL CBC W/AUTO [id number] 00:00:00* Test Item Value Reference Range Interpretation [...] ABS NUCLEATED RBCS (test cod e = 16900) 0.00 K/UL CBC W/AUTO [id number] 00:00:00* Test Item Value Reference Range Interpretation [...] ABS NUCLEATED RBCS (test cod e = 08247) 0.00 K/UL COMPREHENSIVE METABOLIC [id number] 00:00:00* Test Item Value Reference Range Interpretation Comme nts GLUCOSE (test code = 2217) 300 MG/DL BUN (test code = 2208) 23 MG/DL CREATININE (test code = 2214) 1.24 MG/DL eGFR AMER. (test cod e = 46066) 60 ML/MIN/1.73 eGFR NON- AMER. (test code = 92763) 52 ML/MIN/1.73 CALC BUN/CREAT (test code = [...] code = 2219) 12 U/L COMPREHENSIVE METABOLIC [id number] 00:00:00* Test Item Value Reference Range Interpretation Comme nts GLUCOSE (test code = 2217) 300 MG/DL BUN (test code = 2208) 23 MG/DL CREATININE (test code = 2214) 1.24 MG/DL eGFR AMER. (test cod e = 08937) 60 ML/MIN/1.73 eGFR NON- AMER. (test code = 15615) 52 ML/MIN/1.73 CALC BUN/CREAT (test code = [...] ALT (test code = 2219) 12 U/L [id number] 00:00:00* Test Item Value Reference Range Interpretation Comme nts TSH, THIRD GENERATION (test code = 2821) 6.280 UIU/ML [id number] 00:00:00* Test Item Value Reference Range Interpretation Comme nts TSH, THIRD GENERATION (test code = 2821) 6.280 UIU/ML [id number] 00:00:00* Test Item Value Reference Range Interpretation Comme nts TSH, THIRD GENERATION (test code = 2821) 6.280 UIU/ML HEMOGLOBIN [id number] 00:00:00* Test Item Value Reference Range Interpretation Comme nts HEMOGLOBIN A1c (test code = 13621) 11.5 % HEMOGLOBIN [id number] 00:00:00* Test Item Value Reference Range Interpretation Comme nts HEMOGLOBIN A1c (test code = 21816) 11.5 % HEMOGLOBIN [id number] 00:00:00* Test Item Value Reference Range Interpretation Comme nts HEMOGLOBIN A1c (test code = 40459) 11.5 % LIPID [id number] 00:00:00* Test Item Value Reference Range Interpretation Comme nts CHOLESTEROL (test code = 2210) 260 MG/DL TRIGLYCERIDES (test code = 2232) 353 MG/DL HDL CHOLESTEROL (test code = 2220) 40 MG/DL CALC LDL CHOL (test code = 2237) 160 MG/DL RISK RATIO LDL/HDL (test cod e = 2238) 4.00 RATIO LIPID [id number] 00:00:00* Test Item Value Reference Range Interpretation Comme nts CHOLESTEROL (test code = 2210) 260 MG/DL TRIGLYCERIDES (test code = 2232) 353 MG/DL HDL CHOLESTEROL (test code = 2220) 40 MG/DL CALC LDL CHOL (test code = 2237) 160 MG/DL RISK RATIO LDL/HDL (test cod e = 2238) 4.00 RATIO COMPREHENSIVE METABOLIC [id number] 00:00:00* Test Item Value Reference Range Interpretation Comme nts GLUCOSE (test code = 2217) 300 MG/DL BUN (test code = 2208) 23 MG/DL CREATININE (test code = 2214) 1.24 MG/DL eGFR AMER. (test cod e = 84888) 60 ML/MIN/1.73 eGFR NON- AMER. (test code = 26354) 52 ML/MIN/1.73 CALC BUN/CREAT (test code = [...] code = 2219) 12 U/L COMPREHENSIVE METABOLIC [id number] 00:00:00* Test Item Value Reference Range Interpretation Comme nts GLUCOSE (test code = 2217) 300 MG/DL BUN (test code = 2208) 23 MG/DL CREATININE (test code = 2214) 1.24 MG/DL eGFR AMER. (test cod e = 12519) 60 ML/MIN/1.73 eGFR NON- AMER. (test code = 51730) 52 ML/MIN/1.73 CALC BUN/CREAT (test code = [...] ALT (test code = 2219) 12 U/L [id number] 00:00:00* Test Item Value Reference Range Interpretation Comme nts TSH, THIRD GENERATION (test code = 2821) 6.280 UIU/ML [id number] 00:00:00* Test Item Value Reference Range Interpretation Comme nts TSH, THIRD GENERATION (test code = 2821) 6.280 UIU/ML [id number] 00:00:00* Test Item Value Reference Range Interpretation Comme nts TSH, THIRD GENERATION (test code = 2821) 6.280 UIU/ML HEMOGLOBIN [id number] 00:00:00* Test Item Value Reference Range Interpretation Comme nts HEMOGLOBIN A1c (test code = 99947) 11.5 % HEMOGLOBIN [id number] 00:00:00* Test Item Value Reference Range Interpretation Comme nts HEMOGLOBIN A1c (test code = 66267) 11.5 % HEMOGLOBIN [id number] 00:00:00* Test Item Value Reference Range Interpretation Comme nts HEMOGLOBIN A1c (test code = 01588) 11.5 % LIPID [id number] 00:00:00* Test Item Value Reference Range Interpretation Comme nts CHOLESTEROL (test code = 2210) 260 MG/DL TRIGLYCERIDES (test code = 2232) 353 MG/DL HDL CHOLESTEROL (test code = 2220) 40 MG/DL CALC LDL CHOL (test code = 2237) 160 MG/DL RISK RATIO LDL/HDL (test cod e = 2238) 4.00 RATIO LIPID [id number] 00:00:00* Test Item Value Reference Range Interpretation Comme nts CHOLESTEROL (test code = 2210) 260 MG/DL TRIGLYCERIDES (test code = 2232) 353 MG/DL HDL CHOLESTEROL (test code = 2220) 40 MG/DL CALC LDL CHOL (test code = 2237) 160 MG/DL RISK RATIO LDL/HDL (test cod e = 2238) 4.00 RATIO COMPREHENSIVE METABOLIC [id number] 00:00:00* Test Item Value Reference Range Interpretation Comme nts GLUCOSE (test code = 2217) 313 MG/DL BUN (test code = 2208) 15 MG/DL CREATININE (test code = 2214) 0.71 MG/DL eGFR AMER. (test cod e = 08201) 123 ML/MIN/1.73 eGFR NON- AMER. (test code = 00091) 106 ML/MIN/1.73 CALC BUN/CREAT (test code = [...] code = 2219) 11 U/L COMPREHENSIVE METABOLIC [id number] 00:00:00* Test Item Value Reference Range Interpretation Comme nts GLUCOSE (test code = 2217) 313 MG/DL BUN (test code = 2208) 15 MG/DL CREATININE (test code = 2214) 0.71 MG/DL eGFR AMER. (test cod e = 43937) 123 ML/MIN/1.73 eGFR NON- AMER. (test code = 57607) 106 ML/MIN/1.73 CALC BUN/CREAT (test code = [...] (test code = 2219) 11 U/L LIPID [id number] 00:00:00* Test Item Value Reference Range Interpretation Comme nts CHOLESTEROL (test code = 2210) 244 MG/DL TRIGLYCERIDES (test code = 2232) 376 MG/DL HDL CHOLESTEROL (test code = 2220) 48 MG/DL CALC LDL CHOL (test code = 2237) 121 MG/DL RISK RATIO LDL/HDL (test cod e = 2238) 2.52 RATIO LIPID [id number] 00:00:00* Test Item Value Reference Range Interpretation [...] (test code = 2821) 17.0 UIU/ML HEMOGLOBIN [id number] 00:00:00* Test Item Value Reference Range Interpretation Comme nts HEMOGLOBIN A1c (test code = 82512) 12.3 % HEMOGLOBIN [id number] 00:00:00* Test Item Value Reference Range Interpretation Comme nts HEMOGLOBIN A1c (test code = 70163) 12.3 % HEMOGLOBIN [id number] 00:00:00* Test Item Value Reference Range Interpretation Comme nts HEMOGLOBIN A1c (test code = 59465) 12.3 % CBC W/AUTO [id number] 00:00:00* Test Item Value Reference Range Interpretation [...] code = 1015) 408 K/UL CBC W/AUTO [id number] 00:00:00* Test Item Value Reference Range Interpretation [...] code = 1015) 408 K/UL CBC W/AUTO [id number] 00:00:00* Test Item Value Reference Range Interpretation [...] code = 1015) 408 K/UL COMPREHENSIVE METABOLIC [id number] 00:00:00* Test Item Value Reference Range Interpretation Comme nts GLUCOSE (test code = 2217) 313 MG/DL BUN (test code = 2208) 15 MG/DL CREATININE (test code = 2214) 0.71 MG/DL eGFR AMER. (test cod e = 04491) 123 ML/MIN/1.73 eGFR NON- AMER. (test code = 36788) 106 ML/MIN/1.73 CALC BUN/CREAT (test code = [...] code = 2219) 11 U/L COMPREHENSIVE METABOLIC [id number] 00:00:00* Test Item Value Reference Range Interpretation Comme nts GLUCOSE (test code = 2217) 313 MG/DL BUN (test code = 2208) 15 MG/DL CREATININE (test code = 2214) 0.71 MG/DL eGFR AMER. (test cod e = 62247) 123 ML/MIN/1.73 eGFR NON- AMER. (test code = 42538) 106 ML/MIN/1.73 CALC BUN/CREAT (test code = [...] (test code = 2219) 11 U/L LIPID [id number] 00:00:00* Test Item Value Reference Range Interpretation Comme nts CHOLESTEROL (test code = 2210) 244 MG/DL TRIGLYCERIDES (test code = 2232) 376 MG/DL HDL CHOLESTEROL (test code = 2220) 48 MG/DL CALC LDL CHOL (test code = 2237) 121 MG/DL RISK RATIO LDL/HDL (test cod e = 2238) 2.52 RATIO LIPID [id number] 00:00:00* Test Item Value Reference Range Interpretation [...] (test code = 2821) 17.0 UIU/ML HEMOGLOBIN [id number] 00:00:00* Test Item Value Reference Range Interpretation Comme nts HEMOGLOBIN A1c (test code = 24506) 12.3 % HEMOGLOBIN [id number] 00:00:00* Test Item Value Reference Range Interpretation Comme nts HEMOGLOBIN A1c (test code = 78553) 12.3 % HEMOGLOBIN [id number] 00:00:00* Test Item Value Reference Range Interpretation Comme nts HEMOGLOBIN A1c (test code = 33944) 12.3 % CBC W/AUTO [id number] 00:00:00* Test Item Value Reference Range Interpretation [...] code = 1015) 408 K/UL CBC W/AUTO [id number] 00:00:00* Test Item Value Reference Range Interpretation [...] code = 1015) 408 K/UL CBC W/AUTO [id number] 00:00:00* Test Item Value Reference Range Interpretation [...] Notes Date/Time Note Provider Source 2023-02-16 11:07:50 yFkIdOVwTT6KZmI88Ki+ m8H4YsrkXGr3lcd8VZMOQ+ /U9Euj7t9No1rSp07j9Wji4528-33-41E26:07:50F ormatting of this note is different from [...] da josé TLH w/ bilateral salpingectomy per ia followed with anterior repair and SSLF, along [...] DateCOLONOSCOPY WITH SNARE N/A 3Performed by Keshawn Macedo MD at [facility] ASCTUBAL LIGATIONUPPER GI ENDOSCOPY, BIOPSY N/A 3Performed by Keshawn Macedo MD at [facility] ASCCurrent Outpatient Medications on File [...] w/ bilateral salpingectomy on 03/02/23 at [facility] [place] per ia followed with anterior repair and SSLF, along [...] pain meds escribed today (norco and motrin). 70735-4Spafemo and physical xocuUD7233-31-77L14:43:46History and physical noteTXT1.2.840.761747.1.13.131.2.7.2.53241 9|[id number] for patient dhhl57085-5Uypzpln and physical noteLNNARRATIVEFormatted C-CDA narrative textOJHarrison Community Hospital2727 [facility] HospitalFWZIVRJLQKSZSHOVFS1951976040ZQRY4146- 01-09T16:43:461.2.840.891665.1.72.3.15|1.2 .840.493022.1.13.131.2.7.2.727879_[id number] 1 [facility] Notes Date/Time Note Provider Source 2023-03-17 15:59:24 l/Mac/b6nsxfNdZvFfxVVaF4AGV344ymIWA 4ntWvy/arypNQKmuGGXb2YXfj2qaE9726-3 5:59:24 Chief ComplaintPatient presents withHematology Follow-upF/u hospital 90588-0Ttpoy WdwzPN3238-55-10D68:19:30Nurse NoteTXT1.2.840.706929.1.13.131.2.7. 2.777623|[id number] for patient rcwm19567-0Fsmak NoteLNNARRATIVEFormatted C-CDA narrative [id number] Oworu MA IIMayo [facility]2727 [facility] [id number] JH6703-21-27K04:19:301.2.840.303872 .1.72.3.15|1.2.840.714264.1.13.131. 2.7.2.727879_[id number] Tana Bates MA, II [facility] 2023-02-24 01:23:43 d0n2XzObO4UYEcGBTq8UkRmrUmaC4OaP1if g5n7MNIB6LQOWQ7DeumUtJCm7vOVB8399-3 01:23:43 Pt given printed and verbal discharge [...] with steady gait, in no apparent distress 87756-1Huhkhtpcr department FqdxRO8005-75-44D20:25:15[facility] department NoteTXT1.2.840.481272.1.13.104.2.7. 2.715700|[id number] for patient amra00384-1ZcqsTPZLFILLXGGYncqqzcff C-CDA narrative qlyv069019238Prmoryj A Diaz RN[address] Be[id number] 8OZSWFPAFPOFLNKQLBDOXDC4819-23-00F2 1:25:151.2.840.190416.1.72.3.15|1.2 .840.277994.1.13.104.2.7.2.727879_2 [id number] Mary Chung RN [facility] 2023-02-23 23:02:11 KjkmmrqjsUjQIRKfWKnLJ3jxa747FvXJCJW zALQQ2q53ohBXELm7aPKmVp6Hk2xf0228-6 02-23T23:02:11 Report given to KARELY Chung 62901-4Erthjsesv department QeyjRO9644-82-89P84:02:24[facility] department NoteTXT1.2.840.620107.1.13.104.2.7. 2.351639|[id number] for patient jruw99525-0BfsgYQBPZEOXUSXVjaakxlge C-CDA narrative [id number] M Herrera RN[id number] 0RCAXKMQYQJYADJXAGDJYJO9827-35-19Q3 3:02:241.2.840.321006.1.72.3.15|1.2 .840.194780.1.13.104.2.7.2.727879_2 [id number] Abbi Patel RN [facility] 2023-02-23 22:17:43 EVfcb8S74F48Xb8wJkJB3I8jXHHU74ND97u w7ynUBaOeN3PSvmeqPMgSCj55J2dO8918-5 02-23T22:17:43 Patient aware of urine sample needed. Unable to provide sample at this time. Urine cup at bedside. 24713-1Zlekzezhi department VdtuCD3198-23-46A58:18:14Emergency department NoteTXT1.2.840.146780.1.13.104.2.7. 2.821648|[id number] for patient vlni23199-1ArfwQSZGPGZXVRCYjwaiphvu C-CDA narrative [id number]-Qeczk McInnis RN[address] [id number] 6NHFXOGANONCGQDWOYQCHDI2470-22-40H3 2:18:141.2.840.828758.1.72.3.15|1.2 .840.346283.1.13.104.2.7.2.727879_2 [id number] Pamela Vasquez RN [facility] 2023-02-23 21:34:10 jeTgic3+rXq3b+4P3BMvJF1tp6GPy73wvpr yReO8kl9nvrsCoFX7ZkOX4CAmyJpw2801-8 02-23T21:34:10Summary: Triage CC: patient is having vomiting and abdominal pain that started at 0600 upper mid abdominal pain, patient is vomiting in triagePMHx: diabetes and HTNPSH:noneMEDS:glipizide, esomerprazole, latanoprost, levothyroxine, sitagliptin, atorvastatin, IronLMP: 02/23/23Tetanus: unknownAwake, alert, oriented, resp reg unlabored, skin warm, color appropriate for race, moves all ext without difficulty, amb with without assistanceAppears in none distress 18375-1Xoohkamts department Triage vhbaHS2082-97-35R88:40:00[facility] Triage noteTXT1.2.840.973895.1.13.104.2.7. 2.386628|[id number] for patient npzv16734-2Irfdnrxuc department NoteLNNARRATIVEFormatted C-CDA narrative [id number] Schroeder RN[address] Mm[id number] 3FWQBGGLGKYWUVFYDPUXYTC1034-53-58G2 1:40:001.2.840.161911.1.72.3.15|1.2 .840.782349.1.13.104.2.7.2.727879_2 [id number] Gudelia Graf RN [facility] 2023-02-16 13:13:20 22oReBMVpmDvZN2B8Wq+KPeOVt+i3iufkNo vtiJQpRojD7fUWTA4XC7aRUI85HWL0776-9 3:13:20 Chief ComplaintPatient presents withPre-[place] [address]-6Difpj XzahPI2789-24-17T74:28:09Nurse NoteTXT1.2.840.649387.1.13.131.2.7. 2.672977|[id number] for patient oytc48233-0Lbtla NoteLNNARRATIVEFormatted C-CDA narrative text[id number] [place]60[place]-61-72N69:28:091.2.840.974765 .1.72.3.15|1.2.840.189478.1.13.131. 2.7.2.727879_[id number] [facility] 2023-02-16 11:06:27 4HN+MnSUWW7VBl7AYfIdwsM7TeRaR7mzibf qjHLrVIaPBMbf+dsac/weKGY9L3bF7674-8 1:06:27 Chief ComplaintPatient [place] [address]-1Vlcde SeguYY6584-25-74S25:06:38Nurse NoteTXT1.2.840.965111.1.13.131.2.7. 2.495422|[id number] for patient tshm52509-3Ttfpo NoteLNNARRATIVEFormatted C-CDA narrative [id number] M Velo MEDIA SPECIALIST [address]TXTX7702577025US EC4906-34-47J95:06:381.2.840.009914 .1.72.3.15|1.2.840.341758.1.13.131. 2.7.2.727879_[id number] Estelita Maya CMA I [facility] 2023-02-03 14:18:43 QLURwtn6OcAKgMuxQtyYV+/lemTq5nSYcuw vfMlZb/YLe/cf7aVKjmTp1aejFWhq1586-6 4:18:43 Chief ComplaintPatient presents withConsultationReferral for Pain in both hands, Erosive osteoarthritis of [place] [address]-1Fpngn MncjOU6161-93-70K21:19:20Nurse NoteTXT1.2.840.453222.1.13.131.2.7. 2.610664|[id number] for patient xutt70802-8Mujan NoteLNNARRATIVEFormatted C-CDA narrative [facility] [place], [place] [id number] KA2491-94-97T53:19:201.2.840.368519 .1.72.3.15|1.2.840.572200.1.13.131. 2.7.2.727879_[id number] [facility] 2022-10-27 14:21:58 V42v/hjyeCu+i5d2TU+VBZi7XykXR9A7KDR bbbA2gmcSmG2DTMJ0TqCqgm32NSFm9645-8 4:21:58 Chief Complaint Patient presents with OTHER cystocele 11163-9Fdwbj XmocEW9652-28-30W55:23:03Nurse NoteTXT1.2.840.816471.1.13.131.2.7. 2.341747|[id number] for patient vnlc51732-1Jxcle NoteLNMayo Clinic Health [facility]2727 [facility] HospitalTXTX7702577025US HP0284-73-77H45:23:031.2.840.119570 .1.72.3.15|1.2.840.094861.1.13.131. 2.7.2.727879_[id number] [facility] 2022-10-26 14:32:30 xhFS9AmfOZrXndTpvNT281UrZEaXnGC3SNF sha8wq3mafbNxpw7L+HSNsqm4lAbs9466-2 4:32:30 Chief Complaint Patient presents with Follow-Up Visit Follow up- right chronic lisfranc injury Jul 2021. She has Cd with images. Also Today had an Xray on file. She wants to know if she need surgery. Tabitha Mongeer 17095-5Smbmx GbjuYW5513-93-93X31:33:36Nurse NoteTXT1.2.840.162605.1.13.131.2.7. 2.659760|[id number] for patient mbir78922-9Ziquf [id number] MariellaramirezMayo Clinic Health System– [facility]2727 [facility].XWRWJKYXSTTPSVZSST6327724527OG ZY7813-33-56Z25:33:361.2.840.393646 .1.72.3.15|1.2.840.777862.1.13.131. 2.7.2.727879_[id number] Tabitha Hill [facility] 2022-09-03 15:25:19 HmONLSdUuz7oooRDOY9tvGyohxiiPuL0HUy JeUyLRh9hVOQDGCpznHJEskUdof4O2357-5 :25:19 Chief Complaint Patient presents with Vaginal Problem States she feels a lump on the inside of her vagina states there is pressure, when she sits down she can feel the mass, states no bleeding, no odor or discharge change. Has been ongoing for 1 week Tegan Kohler CMA I Patient has not taken her medication today 54789-5Pcgcz OcnwGW5732-85-65W75:25:42Nurse NoteTXT1.2.840.004728.1.13.131.2.7. 2.440125|[id number] for patient [facility]2727 [facility] HospitalTXTX7702577025US HM1749-01-43O43:25:421.2.840.713748 .1.72.3.15|1.2.840.104328.1.13.131. 2.7.2.727879_[id number] [facility]
[2023-04-04] MEDS ORDERED: ONDANSETRON 4 MG/2 ML VIAL ONE ×2 (14:25→16:11)
[2023-04-04] MEDS ORDERED: MORPHINE 4 MG/ML SYR ONE (14:26)
[2023-04-04] MEDS ORDERED: NA CHLORIDE 0.9% 1,000 ML ONE (14:26)
[2023-04-04 14:32] LABS: Absolute Lymphocytes (CBC) 2.4 K/uL (0.7-4.9); Hematocrit 27.1 % (36.0-45.0); Lymphocytes % 27.1 % (15.3-44.8); MCV 91.1 fL (80-100); MPV 7.3 fL (7.6-11.3); Platelets 410 thou/uL (152-406); RBC Red Blood Cell Count 2.98 M/uL (3.86-4.86)
[2023-04-04 14:38] LABS: Protime INR 1.16
[2023-04-04 14:59] LABS: Albumin 2.8 g/dL (3.4-5.0); Bilirubin Direct 0.1 mg/dL (0-0.2); Bilirubin Indirect, Calculated 0.3 mg/dL (0.2-0.8); Bilirubin Total 0.4 mg/dL (0.2-1.0); Magnesium 1.5 mg/dL (1.6-2.4); Potassium 4.2 mEq/L (3.5-5.1); Protein, Total 7.3 g/dL (6.4-8.2)
--- NOTE | 2023-04-04 15:23 | RAD REPORT ---
EXAM DESCRIPTION: Grant Single View04/04/2023 2:14 pm CLINICAL HISTORY: Abdominal pain COMPARISON: February 2023 FINDINGS: The lungs appear clear of acute infiltrate. The heart is normal size IMPRESSION: No acute abnormalities displayed
--- NOTE | 2023-04-04 15:23 | RAD REPORT ---
EXAM DESCRIPTION: CT - Abdomen Pelvis Wo Contrast - 04/04/2023 3:11 pm CLINICAL HISTORY: Abdominal pain COMPARISON: February 2023 TECHNIQUE: Computed axial tomography of the abdomen and pelvis was obtained. IV and oral contrast we re not requested. All CT scans are performed using dose optimization technique as appropriate and may include automated exposure control or mA/KV adjustment according to patient size. FINDINGS: The evaluation of solid organs, vessels and bowel is limited secondary to the lack of con trast administration. Multiple, tiny bilateral renal calculi. No hydronephrosis. Ureteral calculus is not seen. No bladder calculus. Cholecystectomy The liver, spleen, pancreas, adrenals and kidneys appear grossly normal. The appendix is normal. There is no evidence of diverticulitis. No adnexal mass IMPRESSION: Multiple, tiny bilateral nonobstructing renal calculi.
[2023-04-04 15:32] LABS: Thyroid Stimulating Hormone 7.32 uIU/mL (0.358-3.740); Troponin High Sensitivity 7.2 pg/mL (<58.9)
--- NOTE | 2023-04-04 15:32 | RAD REPORT ---
EXAM DESCRIPTION: USExtrem Venous W Compress Bil04/04/2023 3:14 pm CLINICAL HISTORY: Leg pain COMPARISON: none FINDINGS: The left popliteal vein, common femoral, superficial femoral, greater saphenous and pesticide control inspector ior tibial veins bilaterally are compressible and demonstrate augmentation. Doppler demonstrates good flow. Compression of the distal right popliteal vein is limited. However Doppler demonstrates good flow. Grayscale, color and spectral analysis performed on all vessels IMPRESSION: Limited compression of the distal right popliteal vein. However Doppler demonstrates goo d flow. This probably is not significant. However, if the patient right leg pain/swelling does not resolve then follow-up right leg venous ult rasound would be recommended Remainder of exam unremarkable
[2023-04-04] MEDS ORDERED: MAGNESIUM SULFATE 1 gm IVPB 1 GM/100 ML BAG IV ONE (16:05)
--- NOTE | 2023-04-04 16:27 | ER ---
Nurse's Notes [facility] Name: Elsy Bradford Age: 48 yrs Sex: Female : 1975 Arrival Date: 04/04/2023 Time: 13:25 Bed 10 Private MD: Adriano Agee Diagnosis: Vomiting;Hypomagnesemia;Epigastric abdominal tenderness;Type 2 diabetes mellitus with hyperglycemia;Gastroparesis;Other acute kidney failure-CHRONIC;Anemia in chronic kidney disease Presentation: 04/04 13:49 Chief complaint: Mid back pain that radiates to bilateral flanks, diffuse abdominal hb pain, and N/V/D since yesterday, BLE swelling x 1 week. Coronavirus screen: Client presents with at least one sign or symptom that may indicate coronavirus-19. Provider contacted for isolation considerations. Ebola Screen: No symptoms or risks identified at this time. Initial Sepsis Screen: Does the patient meet any 2 criteria? No. Patient's initial sepsis screen is negative. Does the patient have a suspected source of infection? No. Patient's initial sepsis screen is negative. Risk Assessment: Do you want to hurt yourself or someone else? Patient reports no desire to harm self or others. Onset of symptoms was March 28, 2023. 13:49 Method Of Arrival: Ambulatory hb 13:49 Acuity: ALIN 3 hb Triage Assessment: 13:52 General: Appears in no apparent distress. ill, Behavior is calm, cooperative. Pain: hb Pain currently is 9 out of 10 on a pain scale. Neuro: Level of Consciousness is awake, alert, obeys commands, Oriented to person, place, time, situation. Cardiovascular: Patient's skin is warm and dry. Respiratory: Respiratory effort is even, unlabored, Respiratory pattern is. GI: Reports lower abdominal pain, upper abdominal pain, diarrhea, nausea, vomiting. Historical: - Allergies: 13:51 HYDROCODONE; hb - PMHx: 13:51 Diabetes - NIDDM; GERD; High Cholesterol; Hypertension; Thyroid problem; hb - PSHx: 13:51 Cholecystectomy (February); hb - Immunization history:: Adult Immunizations up to date. - Social history:: Smoking status: Patient denies any tobacco usage or history of. - Family history:: not pertinent. Screenin:17 [facility] ED Fall Risk Assessment (Adult) Score/Fall Risk Level 0 - 2 = Low Risk. Abuse as6 screen: Denies threats or abuse. Denies injuries from another. Nutritional screening: No deficits noted. Tuberculosis screening: No symptoms or risk factors identified. Assessment: 14:33 Reassessment: No changes from previously documented assessment. Patient and/or family ll1 updated on plan of care and expected duration. Pain level reassessed. Patient is alert, oriented x 3, equal unlabored respirations, skin warm/dry/pink. 15:26 Reassessment: No changes from previously documented assessment. Patient and/or family ll1 updated on plan of care and expected duration. Pain level reassessed. Patient is alert, oriented x 3, equal unlabored respirations, skin warm/dry/pink. 16:15 Reassessment: No changes from previously documented assessment. Patient and/or family ll1 updated on plan of care and expected duration. Pain level reassessed. Patient is alert, oriented x 3, equal unlabored respirations, skin warm/dry/pink. 18:10 Reassessment: No changes from previously documented assessment. Patient and/or family ll1 updated on plan of care and expected duration. Pain level reassessed. Patient is alert, oriented x 3, equal unlabored respirations, skin warm/dry/pink. 19:49 Reassessment: Patient appears in no apparent distress at this time. attempted to call as6 report. said they would call back. Vital Signs: 13:49 BP 161 / 89; Pulse 69; Resp 16; Temp 98.5(O); Pulse Ox 100% on R/A; Weight 63.5 kg; hb Height 4 ft. 11 in. ; Pain 9/10; 18:19 BP 137 / 81; Pulse 71; Resp 16; Temp 97.4; Pulse Ox 97% on R/A; Pain 8/10; ll1 19:17 BP 122 / 75; Pulse 71; Resp 16 S; Pulse Ox 97% on R/A; as6 13:49 Body Mass Index 28.28 (63.50 kg, 149.86 cm) hb 13:49 Pain Scale: Adult hb 18:19 Pain Scale: Adult ll1 ED Course: 13:28 Patient arrived in ED. rg4 13:37 Adriano Agee DO is Private Physician. rg4 13:51 Triage completed. hb 13:52 Arm band placed on. hb 14:00 Tohmpson Castro MD is Attending Physician. rosalina 14:07 Kristine Collier, RN is Primary Nurse. ll1 14:15 Inserted saline lock: 22 gauge in right antecubital area, using aseptic technique. ll1 Blood collected. 14:16 XRAY Chest (1 view) In Process Unspecified. EDMS 14:20 AMMONIA Sent. ll1 15:12 Abdomen In Process Unspecified. EDMS 15:15 US Extremity Venous W Compression Michael In Process Unspecified. EDMS 16:24 Clifton Dwyer is Hospitalizing Provider. [facility] 19:17 Bed in low position. Call light in reach. Side rails up X2. as6 19:49 Provided Education on: need for admit. as6 19:50 No provider procedures requiring assistance completed. Patient admitted, IV remains in as6 place. Administered Medications: 14:32 Drug: NS 0.9% IV 1000 ml IV at 125 ml/hr continuous Route: IV; Rate: 125 ml/hr; Site: ll1 right antecubital; 18:13 Follow up: Response: No adverse reaction; IV Status: Completed infusion; IV Intake: ll1 1000ml 14:32 Drug: morphine IVP or IV 4 mg IVP once over 4 mins Route: IVP; Infused Over: 4 mins; ll1 Site: right antecubital; 16:14 Follow up: Response: No adverse reaction; Pain is decreased; RASS: Alert and Calm (0) ll1 14:32 Drug: Ondansetron IVP 4 mg IVP once; over 2 minutes Route: IVP; Site: right antecubital;ll1 16:14 Follow up: Response: No adverse reaction; Nausea unchanged ll1 16:09 Drug: Magnesium Sulfate IVPB 1 grams IVPB once over 1 hrs Route: IVPB; Infused Over: 1 ll1 hrs; Site: right antecubital; 18:12 Follow up: Response: No adverse reaction; IV Status: Completed infusion; IV Intake: ll1 100ml 16:14 Drug: Ondansetron IVP 4 mg IVP once; over 2 minutes Route: IVP; Site: right antecubital;ll1 18:12 Follow up: Response: No adverse reaction ll1 18:09 Drug: fentaNYL (PF) IVP 50 mcg IVP once Route: IVP; Site: right antecubital; ll1 18:52 Follow up: Response: No adverse reaction; Pain is decreased ll1 18:09 Drug: Promethazine IVP 6.25 mg IVP once Route: IVP; Site: right antecubital; ll1 18:52 Follow up: Response: No adverse reaction; Nausea is decreased ll1 Medication: 19:17 VIS not applicable for this client. as6 Intake: 18:12 IV: 100ml; Total: 100ml. ll1 18:13 IV: 1000ml; Total: 1100ml. ll1 Outcome: 16:26 Decision to Hospitalize by Provider. rosalina 19:52 Condition: stable as6 19:52 Instructed on the need for admit, 20:09 Admitted to Tele family with patient, via wheelchair, room 429, with chart, Report as6 called to Zunilda CALI 20:16 Patient left the ED. as6 Signatures: Dispatcher [employer] EDThompson Ng MD MD cha Baxter, Heather, RN Susan Talley rg4 Kristine Collier RN RN ll1 Bowen Anderson RN RN as6 Corrections: (The following items were deleted from the chart) 18:21 18:19 BP 129 / 84; Pulse 60bpm; Resp 16bpm; Pulse Ox 97% RA; ll1 ll1 18:52 18:51 Response: No adverse reaction; Nausea is decreased ll1 ll1
--- NOTE | 2023-04-04 16:27 | EDPHYS ---
Physician Documentation [facility] Name: Elsy Bradford Age: 48 yrs Sex: Female : 1975 Arrival Date: 04/04/2023 Time: :25 Bed 10 Private MD: Adriano Agee ED Physician Thompson Castro HPI: 04/04 16:04 This 48 yrs old Female presents to ER via Ambulatory with complaints of Leg rosalina Swelling, Feet Swelling, Abdominal Pain. 16:04 The patient presents with decreased range of motion, pain, swelling. The complaints rosalina affect the right leg and left leg. Context: The problem was sustained at an unknown site. Modifying factors: The symptoms are alleviated by nothing. the symptoms are aggravated by nothing. Associated signs and symptoms: Pertinent positives: calf tenderness, swelling, of the right leg and left leg. The patient presents with abdominal pain in the upper abdomen, abdominal distention in the upper abdomen, in the lower abdomen. The patient presents to the emergency department with nausea, vomiting, that is intermittent, described as undigested food, abdominal pain, of the right upper quadrant and left upper quadrant. Possible causes: unknown. The symptoms are aggravated by food , The symptoms are alleviated by nothing. Associated signs and symptoms: Pertinent positives: abdominal pain, nausea, vomiting. Historical: - Allergies: 13:51 HYDROCODONE; hb - PMHx: 13:51 Diabetes - NIDDM; GERD; High Cholesterol; Hypertension; Thyroid problem; hb - PSHx: 13:51 Cholecystectomy (February); hb - Immunization history:: Adult Immunizations up to date. - Social history:: Smoking status: Patient denies any tobacco usage or history of. - Family history:: not pertinent. ROS: 16:09 Constitutional: Negative for fever, chills, and weight loss, Eyes: Negative for injury, rosalina pain, redness, and discharge, ENT: Negative for injury, pain, and discharge, Neck: Negative for injury, pain, and swelling, Cardiovascular: Negative for chest pain, palpitations, and edema, Respiratory: Negative for shortness of breath, cough, wheezing, and pleuritic chest pain, Back: Negative for injury and pain, : Negative for injury, bleeding, discharge, and swelling, Skin: Negative for injury, rash, and discoloration, Neuro: Negative for headache, weakness, numbness, tingling, and seizure, Psych: Negative for depression, anxiety, suicide ideation, homicidal ideation, and hallucinations, Allergy/Immunology: Negative for hives, rash, and allergies, Endocrine: Negative for neck swelling, polydipsia, polyuria, polyphagia, and marked weight changes, Hematologic/Lymphatic: Negative for swollen nodes, abnormal bleeding, and unusual bruising, 16:09 Abdomen/GI: Positive for abdominal pain, nausea and vomiting, of the right upper quadrant and left upper quadrant, 16:09 MS/extremity: Positive for pain, swelling, tenderness, of the right leg and left leg, Exam: 16:09 Constitutional: This is a well developed, well nourished patient who is awake, alert, rosalina and in no acute distress. Head/Face: Normocephalic, atraumatic. Eyes: Pupils equal round and reactive to light, extra-ocular motions intact. Lids and lashes normal. Conjunctiva and sclera are non-icteric and not injected. Cornea within normal limits. Periorbital areas with no swelling, redness, or edema. ENT: Nares patent. No nasal discharge, no septal abnormalities noted. Tympanic membranes are normal and external auditory canals are clear. Oropharynx with no redness, swelling, or masses, exudates, or evidence of obstruction, uvula midline. Mucous membranes moist. Neck: Trachea midline, no thyromegaly or masses palpated, and no cervical lymphadenopathy. Supple, full range of motion without nuchal rigidity, or vertebral point tenderness. No Meningismus. Chest/axilla: Normal chest wall appearance and motion. Nontender with no deformity. No lesions are appreciated. Cardiovascular: Regular rate and rhythm with a normal S1 and S2. No gallops, murmurs, or rubs. Normal PMI, no JVD. No pulse deficits. Respiratory: Lungs have equal breath sounds bilaterally, clear to auscultation and percussion. No rales, rhonchi or wheezes noted. No increased work of breathing, no retractions or nasal flaring. Back: No spinal tenderness. No costovertebral tenderness. Full range of motion. Female : Normal external genitalia. Skin: Warm, dry with normal turgor. Normal color with no rashes, no lesions, and no evidence of cellulitis. Neuro: Awake and alert, GCS 15, oriented to person, place, time, and situation. Cranial nerves II-XII grossly intact. Motor strength 5/5 in all extremities. Sensory grossly intact. Cerebellar exam normal. Normal gait. Psych: Awake, alert, with orientation to person, place and time. Behavior, mood, and affect are within normal limits. 16:09 ECG was reviewed by the Attending Physician. 16:09 Abdomen/GI: Inspection: distension, that is mild, Bowel sounds: normal, Palpation: mild abdominal tenderness, moderate abdominal tenderness, in the epigastric area, right upper quadrant and right lower quadrant, Liver: no appreciated palpable abnormalities, Hernia: not appreciated, Vital Signs: 13:49 BP 161 / 89; Pulse 69; Resp 16; Temp 98.5(O); Pulse Ox 100% on R/A; Weight 63.5 kg; hb Height 4 ft. 11 in. ; Pain 9/10; 18:19 BP 137 / 81; Pulse 71; Resp 16; Temp 97.4; Pulse Ox 97% on R/A; Pain 8/10; ll1 19:17 BP 122 / 75; Pulse 71; Resp 16 S; Pulse Ox 97% on R/A; as6 13:49 Body Mass Index 28.28 (63.50 kg, 149.86 cm) hb 13:49 Pain Scale: Adult hb 18:19 Pain Scale: Adult ll1 MDM: 14:00 Patient medically screened. rosalina 16:10 Differential diagnosis: contusion, tendonitis, Nonspecific abd pain, gastritis, rosalina pancreatitis, appendicitis, diverticulitis, viral gastroenteritis, gastroenteritis, non-specific abd pain, Peptic Ulcer Disease. Data reviewed: vital signs, nurses notes, lab test result(s), EKG, radiologic studies, CT scan, doppler, plain films. Consideration of Admission/Observation Patient was admitted/placed on observation. Escalation of care including admission/observation considered. I considered the following discharge prescriptions or medication management in the emergency department Medications were administered in the Emergency Department. See MAR. Independent interpretation of the following test(s) in the Emergency Department EKG: See my EKG interpretation above. Test considered but Not performed: Ultrasound no abd usg. Historians other than the Patient: Spouse/Significant Other: very helpful. Care significantly affected by the following chronic conditions: Diabetes, Hypertension, Obesity, Chronic Kidney Disease, thyroid issues. Counseling: I had a detailed discussion with the patient and/or guardian regarding the historical points, exam findings, and any diagnostic results supporting the discharge/admit diagnosis, the presence of at least one elevated blood pressure reading (>120/80) during this emergency department visit, lab results, the need for further work-up and treatment in the hospital. 04/04 14:02 Order name: Basic Metabolic Panel; Complete Time: 17:05 [facility] 04/04 14:02 Order name: CBC with Diff; Complete Time: 15:58 [facility] 04/04 14:02 Order name: LFT's; Complete Time: 17:05 [facility] 04/04 14:02 Order name: Magnesium; Complete Time: 17:05 [facility] 04/04 14:02 Order name: NT PRO-BNP; Complete Time: 17:05 [facility] 04/04 14:02 Order name: PT-INR; Complete Time: 15:58 [facility] 04/04 14:02 Order name: Troponin HS; Complete Time: 17:05 [facility] 04/04 14:02 Order name: Lipase; Complete Time: 17:05 [facility] 04/04 14:02 Order name: Urinalysis w/ reflexes [facility] 04/04 14:02 Order name: AMMONIA; Complete Time: 15:58 [facility] 04/04 14:03 Order name: TSH; Complete Time: 17: [facility] 04/04 15:34 Order name: T4 Free; Complete Time: 17: [facility] 04/04 17:14 Order name: Basic Metabolic Panel [facility] 04/04 17:14 Order name: Basic Metabolic Panel [facility] 04/04 17:14 Order name: Basic Metabolic Panel [facility] 04/04 17:14 Order name: Basic Metabolic Panel [facility] 04/04 17:14 Order name: Basic Metabolic Panel [facility] 04/04 17:14 Order name: Basic Metabolic Panel [facility] 04/04 17:14 Order name: Urinalysis w/ reflexes [facility] 04/04 17:15 Order name: Basic Metabolic Panel [facility] 04/04 17:15 Order name: Basic Metabolic Panel [facility] 04/04 17:15 Order name: CBC with Automated Diff [facility] 04/04 17:15 Order name: CBC with Automated Diff [facility] 04/04 17:15 Order name: CBC with Automated Diff [facility] 04/04 17:15 Order name: CBC with Automated Diff [facility]MT 04/04 17:15 Order name: CBC with Automated Diff EDMT 04/04 17:15 Order name: CBC with Automated Diff EDMS 04/04 17:15 Order name: CBC with Automated Diff EDMS 04/04 17:15 Order name: CBC with Automated Diff EDMS 04/04 17:15 Order name: Magnesium EDMS 04/04 17:15 Order name: Magnesium EDMS 04/04 17:15 Order name: Magnesium EDMS 04/04 17:15 Order name: Magnesium EDMS 04/04 17:15 Order name: Magnesium EDMS 04/04 17:15 Order name: Magnesium EDMS 04/04 17:15 Order name: Magnesium EDMS 04/04 17:15 Order name: Magnesium EDMS 04/04 17:15 Order name: Phosphorus EDMS 04/04 17:15 Order name: Phosphorus EDMS 04/04 17:15 Order name: Phosphorus EDMS 04/04 17:15 Order name: Phosphorus EDMS 04/04 17:15 Order name: Phosphorus EDMS 04/04 17:15 Order name: Phosphorus EDMS 04/04 17:15 Order name: Phosphorus EDMS 04/04 17:15 Order name: Phosphorus EDMS 04/04 17:15 Order name: Troponin High Sensitivity ED[facility] 04/04 17:15 Order name: Troponin High Sensitivity ED[facility] 04/04 17:15 Order name: Troponin High Sensitivity ED[facility] 04/04 14:02 Order name: XRAY Chest (1 view); Complete Time: 15:58 [facility] 04/04 14:02 Order name: US Extremity Venous W Compression Michael; Complete Time: 15:58 [facility] 04/04 14:46 Order name: Abdomen ; Complete Time: 15:58 EDMT 04/04 14:02 Order name: EKG; Complete Time: 14:03 [facility] 04/04 17:14 Order name: CONS Physician Consult EDMT 04/04 14:02 Order name: Cardiac monitoring; Complete Time: 15:26 [facility] 04/04 14:02 Order name: EKG - Nurse/Tech; Complete Time: 15:26 [facility] 04/04 14:02 Order name: IV Saline Lock; Complete Time: 14:20 [facility] 04/04 14:02 Order name: Labs collected and sent; Complete Time: 14:20 [facility] 04/04 14:02 Order name: O2 Per Protocol; Complete Time: 14:07 [facility] 04/04 14:02 Order name: O2 Sat Monitoring; Complete Time: 14:07 [facility] EC:09 Rate is 75 beats/min. Rhythm is regular. QRS Rayne is Normal. AL interval is normal. QRS rosalina interval is normal. QT interval is normal. No Q waves. T waves are Normal. No ST changes noted. Clinical impression: NSR w/ Non-specific ST/T Changes and No evidence of ischemia. Interpreted by me. Reviewed by me. Administered Medications: 14:32 Drug: NS 0.9% IV 1000 ml IV at 125 ml/hr continuous Route: IV; Rate: 125 ml/hr; Site: ll1 right antecubital; 18:13 Follow up: Response: No adverse reaction; IV Status: Completed infusion; IV Intake: ll1 1000ml 14:32 Drug: morphine IVP or IV 4 mg IVP once over 4 mins Route: IVP; Infused Over: 4 mins; ll1 Site: right antecubital; 16:14 Follow up: Response: No adverse reaction; Pain is decreased; RASS: Alert and Calm (0) ll1 14:32 Drug: Ondansetron IVP 4 mg IVP once; over 2 minutes Route: IVP; Site: right antecubital;ll1 16:14 Follow up: Response: No adverse reaction; Nausea unchanged ll1 16:09 Drug: Magnesium Sulfate IVPB 1 grams IVPB once over 1 hrs Route: IVPB; Infused Over: 1 ll1 hrs; Site: right antecubital; 18:12 Follow up: Response: No adverse reaction; IV Status: Completed infusion; IV Intake: ll1 100ml 16:14 Drug: Ondansetron IVP 4 mg IVP once; over 2 minutes Route: IVP; Site: right antecubital;ll1 18:12 Follow up: Response: No adverse reaction ll1 18:09 Drug: fentaNYL (PF) IVP 50 mcg IVP once Route: IVP; Site: right antecubital; ll1 18:52 Follow up: Response: No adverse reaction; Pain is decreased ll1 18:09 Drug: Promethazine IVP 6.25 mg IVP once Route: IVP; Site: right antecubital; ll1 18:52 Follow up: Response: No adverse reaction; Nausea is decreased ll1 Disposition Summary: 04/04/23 16:26 Hospitalization Ordered Notes: Hospitalization Status: Observation rosalina Provider: Clifton Dwyer cha Location: Telemetry/MedSurg (observation) rosalina Condition: Fair rosalina Problem: new rosalina Symptoms: have improved rosalina Bed/Room Type: Standard ro[place] Room Assignment: 429(04/04/23 19:05) rv1 Diagnosis - Vomiting rosalina - Hypomagnesemia rosalina - Epigastric abdominal tenderness rosalina - Type 2 diabetes mellitus with hyperglycemia rosalina - Gastroparesis rosalina - Other acute kidney failure - CHRONIC rosalina - Anemia in chronic kidney disease rosalina Forms: - Medication Reconciliation Form rosalina - SBAR form rosalina - Leadership Thank You Letter rosalina Signatures: Dispatcher [employer] EDMS Thompson Castro MD MD cha Baxter, Heather, RN RN Kristine Collier RN RN ll1 Beverly Vigil rv1 Corrections: (The following items were deleted from the chart) 14:46 14:03 Abdomen Pelvis W Con+CT.RAD.BRZ ordered. EDMT EDMS 19:05 16:26 rosalina rv1
--- NOTE | 2023-04-04 16:50 | P.HP ---
Certification for Inpatient Patient admitted to: Observation With expected LOS: >2 Midnights Patient will require the following post-hospital care: None Practitioner: I am a practitioner with admitting privileges, knowledge of patient current condition, hospital course, and medical plan of care. Services: Services provided to patient in accordance with Admission requirements found in Title 42 Section 412.3 of the Code of Federal Regulations Patient History Date of Service: 04/04/23 Reason for admission: Abdominal pain, gastroparesis, CRF History of Present Illness: Elsy Bradford is a 48-year-old female with past medical history of DiabetesNIDDM, GERD, high cholesterol, hypertension, thyroid problems, multiple ER visits since cholecystectomy who presents to the ED with complaints of abdominal pain and peripheral edema. She reports nausea vomiting and abdominal pain began yesterday at 5 AM. She had tried taking the medication she received from the ED a few days ago which did not help. The pain is located in the Epigastric area. Elsy has been admitted and been seen in the ED several times for intractable nausea/vomiting and abdominal pain. BNP 2158, serum glucose 197, BUN/creatinine 28/12.57, GFR 22, albumin 2.8, TSH 7.320, T41.04, lipase 21, magnesium 1.5 Initial vitals BP 161 / 89; Pulse 69; Resp 16; Temp 98.5(O); Pulse Ox 100% on R/A; Weight 63.5 kg; CT abdomen pelvis report "multiple, tiny bilateral nonobstructive renal calculi" Ultrasound extremity venous with compression bilateral reports "limited compression of the distal right popliteal vein, however Doppler demonstrates good flow. This probably is not significant. However the patient right leg pain and swelling does not resolve and follow-up with right leg venous ultrasound would be recommended." Chest x-ray reports no lungs appear clear of acute infiltrate. The heart is normal size. No acute abnormalities displayed Elsy will be admitted to hospitalist service for further evaluation and treatment of abdominal pain with nausea/vomiting and Chronic renal failure. Allergies No Known Allergies Allergy (Verified 03/02/23 11:29) Home Medications: Glipizide [Glucotrol Xl] 10 mg PO DAILY 04/10/22 Atorvastatin Calcium [Lipitor*] 10 mg PO BEDTIME 03/01/23 Duloxetine HCl 20 mg PO DAILY 03/01/23 Levothyroxine Sodium 1 tab PO DAILY 03/01/23 Sitagliptin Phosphate [Januvia] 50 mg PO DAILY 03/01/23 Ondansetron [Zofran (Odt)*] 4 mg PO Q6H PRN #20 tab 03/03/23 Amlodipine [Norvasc*] 5 mg PO DAILY #30 tab 03/13/23 Amlodipine [Norvasc*] 5 mg PO DAILY #30 tab 03/13/23 Pantoprazole [Protonix Tab] 40 mg PO BID #60 tab 03/13/23 Sucralfate [Carafate -Tab] 1 gm PO ACHS #120 tab 03/13/23 carvediloL [Carvedilol] 25 mg PO BID #60 tab 03/13/23 carvediloL [Coreg*] 25 mg PO BID 6AM 6PM tab 03/13/23 - Past Medical/Surgical History Diabetic: Yes -: DM II -: HLD -: CKD III with Proteinuria (Dr. Kennedy/ Dr. 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 - Family History Sister -: Diabetes Mother -: Diabetes - Social History Alcohol use: No CD- Drugs: No Caffeine use: Yes Review of Systems General: Weakness Gastrointestinal: Nausea, Vomiting, Abdominal Pain Musculoskeletal: Back Pain Neurological: Weakness, Other (headache) Physical Examination - Physical Exam General: Alert, In no apparent distress, Oriented x3 HEENT: Atraumatic, Normocephalic, PERRLA Neck: Supple, 2+ carotid pulse no bruit, JVD not distended Respiratory: Clear to auscultation bilaterally, Normal air movement Cardiovascular: Normal pulses, Regular rate/rhythm, Normal S1 S2, Edema (bilateral lower extremity) Capillary refill: <2 Seconds Gastrointestinal: Normal bowel sounds, Soft and benign, Distended (obese), Tenderness Musculoskeletal: No clubbing, No swelling, No contractures Integumentary: No rashes, No breakdown Neurological: Normal gait, Normal speech, Normal strength at 5/5 x4 extr - Studies Laboratory Data (last 24 hrs) 04/04/23 04/04/23 04/04/23 14:18 14:18 14:18 WBC 9.00 Hgb 9.4 L Hct 27.1 L Plt Count 410 H PT 12.7 H INR 1.16 Sodium 138 Potassium 4.2 BUN 28 H Creatinine 2.57 H Glucose 197 H Magnesium 1.5 L Total Bilirubin 0.4 AST 27 ALT 37 Alkaline Phosphatase 103 Lipase 21 Assessment and Plan - Plan Assessment and plan . Abdominal pain, Nausea, vomiting likely 2/2 gastroparesis Multiple bilateral renal calculi -CT abdomen pelvis report "multiple, tiny bilateral nonobstructive renal calculi" -Antiemetics, antipyretics, pain medication (rebound headache to morphine) -UA pending Hypomagnesemia Magnesium 1.5 Replaced in the ED Monitor in a.m. lab Chronic renal failure Bilateral lower extremity edema -BUN/creatinine 28/2.57, GFR 22 -Consult Dr. Kennedy- recommendations appreciated -Ultrasound extremity venous with compression bilateral reports "limited compression of the distal right popliteal vein, however Doppler demonstrates good flow. This probably is not significant. However the patient right leg pain and swelling does not resolve and follow-up with right leg venous ultrasound would be recommended." -BNP 2158 -Monitor in AM labs DiabetesNIDDM -Accu-Chek with sliding scale insulin -Serum glucose 197 History GERD History high cholesterol History hypertension History thyroid problems -TSH 7.32 over T4 1.04-will evaluate medication compliance -Restart home medications DVT PPx heparin Full code LOS 2 to 3 days Discharge Plan: Home Plan to discharge in: 48 Hours - Advance Directives Does patient have a Living Will: No Does patient have a Durable POA for Healthcare: No Time Spent Managing Pts Care (In Minutes): 50
[2023-04-04] MEDS ORDERED: ACETAMINOPHEN 500 MG TAB PO PRN (17:04)
[2023-04-04] MEDS ORDERED: ACETAMINOPHEN 325 MG TABLET PO PRN (17:04)
[2023-04-04 17:51] LABS: Specific Gravity 1.014 (1.005-1.030); Urine Bacteria None Seen /HPF (<20); Urine Bilirubin NEGATIVE (Negative); Urine Blood Trace (Negative); Urine Clarity Turbid (Clear); Urine Color Light-Yellow (Yellow); Urine Glucose 3+ (Negative); Urine Protein 3+ (Negative); Urine RBC <5 /HPF (None Seen); Urine Urobilinogen Normal (Normal); Urine pH 7.5 (5.0-7.0)
[2023-04-04] MEDS ORDERED: PROMETHAZINE INJ 25 MG/ML AMP ONE (18:00)
[2023-04-04] MEDS ORDERED: FENTANYL CITR 100 MCG/2 ML ONE (18:00)
[2023-04-04] MEDS ORDERED: NA CHLORIDE 0.9% 1,000 ML IV SCH (18:00)
[2023-04-04] MEDS ORDERED: SODIUM CHLORIDE 0.9% 10ML INJ IV PRN (20:25)
[2023-04-04] MEDS: INSULIN REGULAR (HUMAN) 100 UNIT/ML SQ SCH (21:00)
[2023-04-04] MEDS: PANTOPRAZOLE 40 MG INJ IVP SCH (21:24)
[2023-04-04 21:51] VITALS: BMI 28.3
[2023-04-05] MEDS: FENTANYL CITR 100 MCG/2 ML IV PRN (00:09)
[2023-04-05] MEDS: HEPARIN 5000 UNIT/ML 1 ML VIAL SQ SCH (00:10)
[2023-04-05] MEDS: ONDANSETRON 4 MG/2 ML VIAL IV PRN (03:38)
[2023-04-05 06:43] LABS: Absolute Lymphocytes (CBC) 2.3 K/uL (0.7-4.9); Hematocrit 25.6 % (36.0-45.0); Lymphocytes % 33.1 % (15.3-44.8); MCV 90.8 fL (80-100); MPV 7.2 fL (7.6-11.3); Platelets 385 thou/uL (152-406); RBC Red Blood Cell Count 2.82 M/uL (3.86-4.86)
[2023-04-05 06:58] LABS: Magnesium 1.8 mg/dL (1.6-2.4); Phosphorus 3.3 mg/dL (2.5-4.9); Potassium 3.7 mEq/L (3.5-5.1)
[2023-04-05] MEDS ORDERED: INFLUENZA VACCINE (for 6+ mo) 0.5 ML DOSE IMVAC ONE (08:00)
[2023-04-05] MEDS: METOCLOPRAMIDE 10 MG/2mL INJ IV SCH ×2 (08:25→14:56)
[2023-04-05] MEDS: SUCRALFATE 1GM/10ML UCUP FT PRN (10:03)
--- NOTE | 2023-04-05 11:11 | P.CNS ---
Date of Consult: 04/05/23 Reason for Consult: CKD IV Requesting Physician: virginia reilly Chief Complaint: Abdominal pain, gastroparesis, CRF History of Present Illness: Elsy Bradford is a 48-year-old female with past medical history of DiabetesNIDDM, GERD, high cholesterol, hypertension, thyroid problems, multiple ER visits since cholecystectomy who presents to the ED with complaints of abdominal pain and peripheral edema. She reports nausea vomiting and abdominal pain began yesterday at 5 AM. She had tried taking the medication she received from the ED a few days ago which did not help. The pain is located in the Epigastric area. Elsy has been admitted and been seen in the ED several times for intractable nausea/vomiting and abdominal pain. 16:04 This 48 yrs old Female presents to ER via Ambulatory with complaints of Leg rosalina Swelling, Feet Swelling, Abdominal Pain. 16:04 The patient presents with decreased range of motion, pain, swelling. The complaints rosalina affect the right leg and left leg. Context: The problem was sustained at an unknown site. Modifying factors: The symptoms are alleviated by nothing. the symptoms are aggravated by nothing. Associated signs and symptoms: Pertinent positives: calf tenderness, swelling, of the right leg and left leg. The patient presents with abdominal pain in the upper abdomen, abdominal distention in the upper abdomen, in the lower abdomen. The patient presents to the emergency department with nausea, vomiting, that is intermittent, described as undigested food, abdominal pain, of the right upper quadrant and left upper quadrant. Possible causes: unknown. The symptoms are aggravated by food , The symptoms are alleviated by nothing. Associated signs and symptoms: Pertinent positives: abdominal pain, nausea, vomiting. Allergies No Known Allergies Allergy (Verified 03/02/23 11:29) Home medications list reviewed: Yes Home Medications: Glipizide [Glucotrol Xl] 10 mg PO DAILY 04/10/22 Atorvastatin Calcium [Lipitor*] 10 mg PO BEDTIME 03/01/23 Duloxetine HCl 20 mg PO DAILY 03/01/23 Levothyroxine Sodium 1 tab PO DAILY 03/01/23 Sitagliptin Phosphate [Januvia] 50 mg PO DAILY 03/01/23 Ondansetron [Zofran (Odt)*] 4 mg PO Q6H PRN #20 tab 03/03/23 Amlodipine [Norvasc*] 5 mg PO DAILY #30 tab 03/13/23 Amlodipine [Norvasc*] 5 mg PO DAILY #30 tab 03/13/23 Pantoprazole [Protonix Tab] 40 mg PO BID #60 tab 03/13/23 Sucralfate [Carafate -Tab] 1 gm PO ACHS #120 tab 03/13/23 carvediloL [Carvedilol] 25 mg PO BID #60 tab 03/13/23 carvediloL [Coreg*] 25 mg PO BID 6AM 6PM tab 03/13/23 - Past Medical/Surgical History Diabetic: Yes -: DM II -: HLD -: CKD IV with Proteinuria (Dr. Kennedy/ Dr. 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 - Family History Sister Medical History: Diabetes Mother Medical History: Diabetes - Social History Smoking Status: Current some day smoker Alcohol use: No CD- Drugs: No Caffeine use: Yes Place of Residence: Home Review of Systems 10-point ROS is otherwise unremarkable General: Weakness, Malaise Cardiovascular: Edema Physical Examination Temp Pulse Resp BP Pulse Ox 98.7 F 69 17 153/73 H 98 04/05/23 08:00 04/05/23 08:00 04/05/23 08:00 04/05/23 08:00 04/05/23 08:00 Laboratory Data (last 24 hrs) 04/04/23 04/04/23 04/04/23 14:18 14:18 14:18 WBC 9.00 Hgb 9.4 L Hct 27.1 L Plt Count 410 H PT 12.7 H INR 1.16 Sodium 138 Potassium 4.2 BUN 28 H Creatinine 2.57 H Glucose 197 H Magnesium 1.5 L Total Bilirubin 0.4 AST 27 ALT 37 Alkaline Phosphatase 103 Lipase 21 Imagings Data: EXAM DESCRIPTION: CT - Abdomen Pelvis Wo Contrast - 04/04/2023 3:11 pm CLINICAL HISTORY: Abdominal pain COMPARISON: February 2023 TECHNIQUE: Computed axial tomography of the abdomen and pelvis was obtained. IV and oral contrast were not requested. All CT scans are performed using dose optimization technique as appropriate and may include automated exposure control or mA/KV adjustment according to patient size. FINDINGS: The evaluation of solid organs, vessels and bowel is limited secondary to the lack of contrast administration. Multiple, tiny bilateral renal calculi. No hydronephrosis. Ureteral calculus is not seen. No bladder calculus. Cholecystectomy The liver, spleen, pancreas, adrenals and kidneys appear grossly normal. The appendix is normal. There is no evidence of diverticulitis. No adnexal mass IMPRESSION: Multiple, tiny bilateral nonobstructing renal calculi. EXAM DESCRIPTION: RADChest Single View04/04/2023 2:14 pm CLINICAL HISTORY: Abdominal pain COMPARISON: February 2023 FINDINGS: The lungs appear clear of acute infiltrate. The heart is normal size IMPRESSION: No acute abnormalities displayed EXAM DESCRIPTION: USExtrem Venous W Compress Bil04/04/2023 3:14 pm CLINICAL HISTORY: Leg pain COMPARISON: none FINDINGS: The left popliteal vein, common femoral, superficial femoral, greater saphenous and posterior tibial veins bilaterally are compressible and demonstrate augmentation. Doppler demonstrates good flow. Compression of the distal right popliteal vein is limited. However Doppler demonstrates good flow. Grayscale, color and spectral analysis performed on all vessels IMPRESSION: Limited compression of the distal right popliteal vein. However Doppler demonstrates good flow. This probably is not significant. However, if the patient right leg pain/swelling does not resolve then follow-up right leg venous ultrasound would be recommended Remainder of exam unremarkable Conclusions/Impression: CKD IV with Proteinuria -No NSAIDs Hypomagnesemia -Replete prn HTN with CKD -Start Chlorthalidone & Spironolactone LE Edema -Low sodium diet -Daily weight -Start Chlorthalidone & Spironolactone DM II with CKD, Polyneuropathy and Gastroparesis -RISS -Reglan as ordered Anemia in chronic illness -Monitor H&H Nephrolithiasis -Non obstructing -Start Chlorthalidone CKD MBD -Start Ergo Hospitalist and ER notes reviewed Thank you kindly for the consultation
[2023-04-05 11:41] LABS: Specific Gravity 1.013 (1.005-1.030); Urine Bacteria None Seen /HPF (<20); Urine Bilirubin NEGATIVE (Negative); Urine Blood 1+ (Negative); Urine Clarity Clear (Clear); Urine Color Colorless (Yellow); Urine Glucose 2+ (Negative); Urine Mucus Slight /HPF (None Seen); Urine Protein 3+ (Negative); Urine RBC <5 /HPF (None Seen); Urine Urobilinogen Normal (Normal)
[2023-04-05] MEDS: SPIRONOLACTONE 25 MG TABLET PO SCH (11:59)
[2023-04-05] MEDS: CHLORTHALIDONE 25 MG TAB PO SCH (11:59)
--- NOTE | 2023-04-05 14:11 | P.PN ---
Date of Service: 04/05/23 Subjective Continues with N/V and abdominal pain through the night ECHO pending Denies fever, chills, CP, and [place]-[place]ISTE. ROS 10 point ROS as noted above, otherwise negative Physical Exam General: AAOx3, NAD HEENT: Atraumatic, Normocephalic, PERRLA Neck: Supple, 2+ carotid pulse no bruit, JVD not distended Respiratory: Clear to auscultation bilaterally, Normal air movement Cardiovascular: Normal pulses, RRR, S1 S2 present, Normal S1 S2, Edema (bilateral lower extremity) Capillary refill: <2 Seconds Gastrointestinal: Normal bowel sounds, Soft and benign on palpation, Distended (obese), Tenderness Musculoskeletal: No clubbing, No swelling, No contractures Integumentary: No rashes, No breakdown Neurological: Normal gait, Normal speech, Normal strength at 5/5 x4 extr Vitals Reviewed Problem list Abdominal pain, Nausea, vomiting likely 2/2 gastroparesis Multiple bilateral renal calculi Hypomagnesemia Chronic renal failure Bilateral lower extremity edema DiabetesNIDDM History GERD History high cholesterol History hypertension History thyroid problems Assessment and plan . Abdominal pain, Nausea, vomiting likely 2/2 gastroparesis Multiple bilateral renal calculi -CT abdomen pelvis report "multiple, tiny bilateral nonobstructive renal calculi" -Antiemetics, antipyretics, pain medication (rebound headache to morphine) -UA negative for infection -Chlorthalidone per nephrology Hypomagnesemia Magnesium 1.8- improved replace PRN Monitor in a.m. lab Chronic renal failure Bilateral lower extremity edema -BUN/creatinine 24/2.30, GFR 25 -Consult Dr. Kennedy- recommendations appreciated -Ultrasound extremity venous with compression bilateral reports "limited compression of the distal right popliteal vein, however Doppler demonstrates good flow. This probably is not significant. However the patient right leg pain and swelling does not resolve and follow-up with right leg venous ultrasound would be recommended." -initial BNP 2158 -Monitor in AM labs DiabetesNIDDM -Accu-Chek with sliding scale insulin -Serum glucose 157 History GERD History high cholesterol History hypertension History thyroid problems -TSH 7.32/ T4 1.04 -continue home medications DVT PPx heparin Full code LOS 2 to 3 days
--- NOTE | 2023-04-05 14:30 | EKG ---
Test Date: 2023-04-04 Test Time: 15:22:55 [employer] Trimmer: [place] MEASUREMENT RESULTS: Intervals: Rate: 75 MD: 138 QRSD: 80 QT: 414 QTc: 462 [place]: P: 56 MD: 138 QRS: 44 T: 36 INTERPRETIVE STATEMENTS: Normal sinus rhythm Possible Inferior infarct, age undetermined Cannot rule out Anterior infarct, age undetermined Abnormal ECG Compared to ECG 03/07/2023 03:44:20 No significant changes Electronically Signed On 04-05-23 14:26:28 [employer] ARCHITECT by Iban Paredes
[2023-04-05] MEDS: LEVOTHYROXINE SOD 0.075 MG TAB PO SCH (14:56)
[2023-04-05] MEDS: POTASSIUM CL SA 10 MEQ TAB PO ONE (16:09)
[2023-04-05] MEDS: DOCUSATE NA 100 MG CAP PO SCH (21:22)
--- NOTE | 2023-04-06 06:35 | ECHO ---
HEIGHT: 4 ft 11 in WEIGHT: 140 lb 0 oz DATE OF STUDY: 04/05/[address]: Meagan Arias NP 2-DIMENSIONAL: YES M.MODE: YES DOPPLER: YES COLOR FLOW: YES TDS: PORTABLE: YES DEFINITY: BUBBLE STUDY: DIAGNOSIS: BNP ELEVATED CARDIAC HISTORY: CATHERIZATION: NO SURGERY: NO PROSTHETIC VALVE: NO PACEMAKER: NO MEASUREMENTS (cm) DIASTOLIC (NORMALS) SYSTOLIC (NORMALS) IVSd 1.2 (0.6-1.2) LA Diam 2.8 (1.9-4.0) LVEF 56% LVIDd 4.0 (3.5-5.7) LVIDs 2.8 (2.0-3.5) %FS 29% LVPWd 1.2 (0.6-1.2) Ao Diam 2.6 (2.0-3.7) 2 DIMENSIONAL ASSESSMENT: RIGHT ATRIUM: NORMAL LEFT ATRIUM: NORMAL RIGHT VENTRICLE: NORMAL LEFT VENTRICLE: NORMAL TRICUSPID VALVE: NORMAL MITRAL VALVE: NORMAL PULMONIC VALVE: NORMAL AORTIC VALVE: NORMAL PERICARDIAL EFFUSION: NONE AORTIC ROOT: NORMAL LEFT VENTRICULAR WALL MOTION: NORMAL DOPPLER/COLOR FLOW: SEE BELOW COMMENTS: 1. NORMAL LEFT VENTRICULAR EJECTION FRACTION 55-60% 2. NORMAL WALL MOTION 3. DIASTOLIC DYSFUNCTION GRADE II TECHNOLOGIST: ANTONIO PATRICK
[2023-04-06 06:41] LABS: Absolute Lymphocytes (CBC) 2.5 K/uL (0.7-4.9); Hematocrit 24.7 % (36.0-45.0); Lymphocytes % 35.4 % (15.3-44.8); MCV 90.6 fL (80-100); MPV 7.1 fL (7.6-11.3); Platelets 385 thou/uL (152-406); RBC Red Blood Cell Count 2.73 M/uL (3.86-4.86)
[2023-04-06 06:53] LABS: Magnesium 1.7 mg/dL (1.6-2.4); Potassium 3.7 mEq/L (3.5-5.1)
[2023-04-06] MEDS ORDERED: LEVOTHYROXINE SOD 0.075 MG TAB PO SCH (09:00)
[2023-04-06] MEDS: DRISDOL (VITAMIN D=ERGOCALCIFEROL) 50000 UNIT CAP PO SCH (09:42)
--- NOTE | 2023-04-06 14:16 | P.PN ---
Date of Service: 04/06/23 Subjective: Some improvement today Tolerated breakfast/lunch Had vomiting last night Attributes improvement Reglan ROS: 10 point ROS as noted above, otherwise negative Physical exam GEN: Alert, oriented, NAD HEENT: Normal conjunctiva, sclera anicteric CV: Regular rate and rhythm, no edema Pulm: Nonlabored respirations on room air ABD: Soft, nontender, nondistended MSK: No joint tenderness Integumentary: No rashes Neuro: Normal speech, normal affect Vitals reviewed Problem list Abdominal pain, Nausea, vomiting secondary to gastroparesis/GERD Multiple bilateral renal calculi Hypomagnesemia Chronic renal failure Bilateral lower extremity edema DiabetesNIDDM History GERD History high cholesterol History hypertension History thyroid problems Plan Abdominal pain, Nausea, vomiting secondary to gastroparesis/GERD Multiple bilateral renal calculi Carafate, twice daily PPI, Reglan for intractable nausea/vomiting Has had some improvement in the last 24 hours If continues to have possible discharge tomorrow Has appointment with her GI doctor Saturday 04/08 -CT abdomen pelvis report "multiple, tiny bilateral nonobstructive renal calculi" -Antiemetics, antipyretics, pain medication (rebound headache to morphine) -UA negative for infection -Chlorthalidone per nephrology Hypomagnesemia replace PRN Chronic renal failure Bilateral lower extremity edema -Consult Dr. Kennedy- recommendations appreciated -Ultrasound extremity venous with compression bilateral reports "limited compression of the distal right popliteal vein, however Doppler demonstrates good flow. This probably is not significant. However the patient right leg pain and swelling does not resolve and follow-up with right leg venous ultrasound would be recommended." - Echo WNL DiabetesNIDDM -Accu-Chek with sliding scale insulin History high cholesterol History hypertension History thyroid problems -TSH 7.32/ T4 1.04 -continue home medications DVT PPx heparin Full code LOS 1 to 2 days Time Spent Managing Pts Care (In Minutes): 35
[2023-04-06] MEDS: POTASSIUM CL SA 10 MEQ TAB PO ONE (17:31)
[2023-04-06] MEDS: carvediloL 12.5 MG TAB PO SCH (17:32)
--- NOTE | 2023-04-06 20:59 | P.PN ---
Date of Service: 04/06/23 Vital Signs Temp Pulse Resp BP Pulse Ox 98.2 F 74 17 155/74 H 99 04/06/23 20:00 04/06/23 20:00 04/06/23 20:00 04/06/23 20:00 04/06/23 20:00 Medications Acetaminophen (Acetaminophen 500 Mg Tab) 500 mg PO Q4HP PRN PRN Reason: Pain scale 2-4 (Mild) Acetaminophen (Acetaminophen 325 Mg Tablet) 650 mg PO Q4HP PRN PRN Reason: TEMP > 100' F Carvedilol (Carvedilol 12.5 Mg Tab) 12.5 mg PO BID 6AM 6PM [facility] Last Admin: 04/06/23 17:32 Dose: 12.5 mg Chlorthalidone (Chlorthalidone 25 Mg Tab) 25 mg PO DAILY [facility] Last Admin: 04/06/23 09:42 Dose: 25 mg Docusate Sodium (Docusate Na 100 Mg Cap) 100 mg PO BID [facility] Last Admin: 04/06/23 09:42 Dose: 100 mg Ergocalciferol (Drisdol (Vitamin D=Ergocalciferol) 94112 Unit Cap) 50,000 unit PO Q48H [facility] Stop: 04/08/23 09:01 Last Admin: 04/06/23 09:42 Dose: 50,000 unit Fentanyl Citrate (Fentanyl Citr 100 Mcg/2 Ml) 25 mcg IV Q6H PRN PRN Reason: Pain scale 8-10 (Severe) Last Admin: 04/06/23 16:28 Dose: 25 mcg Heparin Sodium (Porcine) (Heparin 5000 Unit/Ml 1 Ml Vial) 5,000 unit SQ Q8HR [facility] Last Admin: 04/06/23 16:28 Dose: 5,000 unit Insulin Human Regular (Insulin Regular (Human) 100 Unit/Ml) 0 unit SQ ACHS [facility]; Protocol Last Admin: 04/06/23 16:27 Dose: 1 unit Levothyroxine Sodium (Levothyroxine Sod 0.075 Mg Tab) 0.075 mg PO DAILYAC [facility] Last Admin: 04/06/23 04:46 Dose: 0.075 mg Metoclopramide HCl (Metoclopramide 10 Mg/2ml Inj) 5 mg IV TID [facility] Last Admin: 04/06/23 13:00 Dose: 5 mg Ondansetron HCl (Ondansetron 4 Mg/2 Ml Vial) 4 mg IV Q4H PRN PRN Reason: NAUSEA / VOMITING Last Admin: 04/06/23 04:42 Dose: 4 mg Pantoprazole Sodium (Pantoprazole 40 Mg Inj) 40 mg IVP Q12HR [facility]ASSI; Protocol Last Admin: 04/06/23 09:43 Dose: 40 mg Sodium Chloride (Sodium Chloride 0.9% 10ml Inj) 10 ml IV UD PRN PRN Reason: Diluant Spironolactone (Spironolactone 25 Mg Tablet) 25 mg PO DAILY [facility] Last Admin: 04/06/23 09:42 Dose: 25 mg Sucralfate (Sucralfate 1gm/10ml Ucup) 1 gm FT ACHS PRN PRN Reason: indigestion Last Admin: 04/05/23 10:03 Dose: 1 gm Lab Results (last 24 hrs) 04/06/23 11:53: POC Glucose 259 H 04/06/23 07:13: POC Glucose 149 H 04/06/23 06:18: Sodium 139, Potassium 3.7, Chloride 110 H, Carbon Dioxide 22, Anion Gap 10.7, BUN 24 H, Creatinine 2.57 H, Est GFR (CKD-EPI) 22 L, Glucose 162 H, Calcium 8.3 L, Phosphorus 3.0, Magnesium 1.7 04/06/23 06:18: WBC 7.00, RBC 2.73 L, Hgb 8.7 L, Hct 24.7 L, MCV 90.6, MCH 32.0, MCHC 35.3, RDW 12.6, Plt Count 385, MPV 7.1 L, Neutrophils % 52.9, Lymphocytes % 35.4, Monocytes % 9.8, Eosinophils % 1.5, Basophils % 0.4, Absolute Neutrophils 3.7, Absolute Lymphocytes 2.5, Absolute Monocytes 0.7, Absolute Eosinophils 0.1, Absolute Basophils 0.0 Assessment/ Plan: Nephrology No dyspnea No chest pain Feeling better with improving edema No acute events overnight Vitals, medications, blood work and imaging reviewed in the chart NAD. MMM. NCAT. Normal Respiratory Effort. S1S2. ND Abd. No C/C. LE Edema 1+. No rash. AAO. Normal speech. Temp Pulse Resp BP Pulse Ox 98.7 F 69 17 153/73 H 98 04/05/23 08:00 04/05/23 08:00 04/05/23 08:00 04/05/23 08:00 04/05/23 08:00 Laboratory Data (last 24 hrs) 04/04/23 04/04/23 04/04/23 14:18 14:18 14:18 WBC 9.00 Hgb 9.4 L Hct 27.1 L Plt Count 410 H PT 12.7 H INR 1.16 Sodium 138 Potassium 4.2 BUN 28 H Creatinine 2.57 H Glucose 197 H Magnesium 1.5 L Total Bilirubin 0.4 AST 27 ALT 37 Alkaline Phosphatase 103 Lipase 21 Imagings Data: EXAM DESCRIPTION: CT - Abdomen Pelvis Wo Contrast - 04/04/2023 3:11 pm CLINICAL HISTORY: Abdominal pain COMPARISON: February 2023 TECHNIQUE: Computed axial tomography of the abdomen and pelvis was obtained. IV and oral contrast were not requested. All CT scans are performed using dose optimization technique as appropriate and may include automated exposure control or mA/KV adjustment according to patient size. FINDINGS: The evaluation of solid organs, vessels and bowel is limited secondary to the lack of contrast administration. Multiple, tiny bilateral renal calculi. No hydronephrosis. Ureteral calculus is not seen. No bladder calculus. Cholecystectomy The liver, spleen, pancreas, adrenals and kidneys appear grossly normal. The appendix is normal. There is no evidence of diverticulitis. No adnexal mass IMPRESSION: Multiple, tiny bilateral nonobstructing renal calculi. [facility] CLINICAL HISTORY: Abdominal pain COMPARISON: February 2023 FINDINGS: The lungs appear clear of acute infiltrate. The heart is normal size IMPRESSION: No acute abnormalities displayed EXAM DESCRIPTION: USExtrem Venous W Compress Bil04/04/2023 3:14 pm CLINICAL HISTORY: Leg pain COMPARISON: none FINDINGS: The left popliteal vein, common femoral, superficial femoral, greater saphenous and posterior tibial veins bilaterally are compressible and demonstrate augmentation. Doppler demonstrates good flow. Compression of the distal right popliteal vein is limited. However Doppler de monstrates good flow. Grayscale, color and spectral analysis performed on all vessels IMPRESSION: Limited compression of the distal right popliteal vein. However Doppler demonstrates good flow. This probably is not significant. However, if the patient right leg pain/swelling does not resolve then follow-up right leg venous ultrasound would be recommended Remainder of exam unremarkable Conclusions/Impression: CKD IV with Proteinuria -No NSAIDs -Replete potassium Hypomagnesemia -Replete prn HTN with CKD -Continue Chlorthalidone & Spironolactone -Start Coreg LE Edema -Low sodium diet -Daily weight -Continue Chlorthalidone & Spironolactone DM II with CKD, Polyneuropathy and Gastroparesis -RISS -Reglan as ordered Anemia in chronic illness -Monitor H&H Nephrolithiasis -Non obstructing -Continue Chlorthalidone CKD MBD -Continue Ergo Hospitalist notes reviewed
[2023-04-07 02:46] VITALS: O2SAT 99
[2023-04-07 07:02] LABS: Absolute Lymphocytes (CBC) 3.3 K/uL (0.7-4.9); Hematocrit 29.4 % (36.0-45.0); Lymphocytes % 35.6 % (15.3-44.8); MCV 91.1 fL (80-100); MPV 7.2 fL (7.6-11.3); Platelets 484 thou/uL (152-406); RBC Red Blood Cell Count 3.23 M/uL (3.86-4.86)
[2023-04-07 07:08] LABS: Magnesium 1.8 mg/dL (1.6-2.4); Phosphorus 3.7 mg/dL (2.5-4.9); Potassium 4.2 mEq/L (3.5-5.1)
[2023-04-07] MEDS: MAGNESIUM SULFATE 1 gm IVPB 1 GM/100 ML BAG IV ONE (08:49)
[2023-04-07 08:53] VITALS: BP 154/74
[2023-04-07 10:36] VITALS: TEMP 97.6
--- NOTE | 2023-04-07 13:57 | P.DS ---
Admission Date: 04/06/23 Discharge Date: 04/07/23 Disposition: ROUTINE DISCHARGE Discharge Condition: GOOD Reason for Admission: Abdominal pain, gastroparesis, CRF Brief History of Present Illness: Elsy Bradford is a 48-year-old female with past medical history of DiabetesNIDDM, GERD, high cholesterol, hypertension, thyroid problems, multiple ER visits since cholecystectomy who presents to the ED with complaints of abdominal pain and peripheral edema. She reports nausea vomiting and abdominal pain began yesterday at 5 AM. She had tried taking the medication she received from the ED a few days ago which did not help. The pain is located in the Epigastric area. Elsy has been admitted and been seen in the ED several times for intractable nausea/vomiting and abdominal pain. BNP 2158, serum glucose 197, BUN/creatinine 28/12.57, GFR 22, albumin 2.8, TSH 7.320, T41.04, lipase 21, magnesium 1.5 Initial vitals BP 161 / 89; Pulse 69; Resp 16; Temp 98.5(O); Pulse Ox 100% on R/A; Weight 63.5 kg; CT abdomen pelvis report "multiple, tiny bilateral nonobstructive renal calculi" Ultrasound extremity venous with compression bilateral reports "limited compression of the distal right popliteal vein, however Doppler demonstrates good flow. This probably is not significant. However the patient right leg pain and swelling does not resolve and follow-up with right leg venous ultrasound would be recommended." Chest x-ray reports no lungs appear clear of acute infiltrate. The heart is normal size. No acute abnormalities displayed Elsy will be admitted to hospitalist service for further evaluation and treatment of abdominal pain with nausea/vomiting and Chronic renal failure. Hospital Course: Problem list Abdominal pain, Nausea, vomiting secondary to gastroparesis/GERD Multiple bilateral renal calculi Hypomagnesemia Chronic renal failure Bilateral lower extremity edema DiabetesNIDDM History GERD History high cholesterol History hypertension History thyroid problems Patient was admitted to the hospital for intractable nausea/vomiting, this was deemed likely secondary to gastroparesis/GERD. Patient was recently admitted and started on Carafate, twice daily PPI which had been helping her up until the last few days prior to admission. During her admission she was started on Reglan 5 mg IV 3 times daily and she had significant improvement in her symptoms, she has been tolerating a diet. Of note patient had lower extremity edema on admission as well, she was given chlorthalidone and spironolactone and had complete resolution of her lower extremity edema, echocardiogram was also performed which was normal. Renal function was similar to baseline at discharge creatinine is 2.69. Discussed medications with nephrology prior to discharge, recommendation is for new medications including hydrochlorothiazide 12.5 mg daily and spironolactone 25 mg daily and close follow-up with nephrology in 1 to 2 weeks. Please follow-up with: Your primary care doctor later today as scheduled Your GI doctor on Saturday 04/[address] Kennedy with nephrology in 1 to 2 weeks. Please start new medications as follows: Reglan 5 mg by mouth 3 times daily-please discuss further with your GI doctor Hydrochlorothiazide 12.5 mg by mouth daily Spironolactone 25 mg by mouth daily Tramadol 50 mg by mouth 3 times daily as needed for pain Vital Signs/Physical Exam: Temp Pulse Resp BP Pulse Ox 97.6 F 70 16 154/74 H 100 04/07/23 08:00 04/07/23 08:49 04/07/23 08:00 04/07/23 08:49 04/07/23 08:00 General: Alert, In no apparent distress, Oriented x3 HEENT: Atraumatic, PERRLA Neck: Supple, JVD not distended Respiratory: Clear to auscultation bilaterally, Normal air movement Cardiovascular: Regular rate/rhythm, Normal S1 S2 Gastrointestinal: Normal bowel sounds, No tenderness Musculoskeletal: No tenderness Integumentary: No rashes Neurological: Normal speech, Normal tone, Normal affect Laboratory Data at Discharge: WBC 9.20 thou/uL (4.3-10.9) 04/07/23 06:29 Hgb 10.3 g/dL (12.0-15.0) L D 04/07/23 06:29 Hct 29.4 % (36.0-45.0) L 04/07/23 06:29 Plt Count 484 thou/uL (152-406) H 04/07/23 06:29 PT 12.7 SECONDS (9.5-12.5) H 04/04/23 14:18 INR 1.16 04/04/23 14:18 Sodium 138 mEq/L (136-145) 04/07/23 06:29 Potassium 4.2 mEq/L (3.5-5.1) D 04/07/23 06:29 BUN 21 mg/dL (7-18) H 04/07/23 06:29 Creatinine 2.69 mg/dL (0.55-1.02) H 04/07/23 06:29 Glucose 150 mg/dL (74-106) H 04/07/23 06:29 Phosphorus 3.7 mg/dL (2.5-4.9) 04/07/23 06:29 Magnesium 1.8 mg/dL (1.6-2.4) 04/07/23 06:29 Total Bilirubin 0.4 mg/dL (0.2-1.0) 04/04/23 14:18 AST 27 U/L (15-37) 04/04/23 14:18 ALT 37 U/L (13-56) 04/04/23 14:18 Alkaline Phosphatase 103 U/L (45-117) 04/04/23 14:18 Lipase 21 U/L (13-75) 04/04/23 14:18 Home Medications: Glipizide [Glucotrol Xl] 10 mg PO DAILY 04/10/22 Atorvastatin Calcium [Lipitor*] 10 mg PO BEDTIME 03/01/23 Duloxetine HCl 20 mg PO DAILY 03/01/23 Levothyroxine Sodium 1 tab PO DAILY 03/01/23 Sitagliptin Phosphate [Januvia] 50 mg PO DAILY 03/01/23 Ondansetron [Zofran (Odt)*] 4 mg PO Q6H PRN #20 tab 03/03/23 Amlodipine [Norvasc*] 5 mg PO DAILY #30 tab 03/13/23 Pantoprazole [Protonix Tab*] 40 mg PO BID #60 tab 03/13/23 Sucralfate [Carafate*] 1 gm PO ACHS #120 tab 03/13/23 carvediloL [Coreg*] 25 mg PO BID 6AM 6PM tab 03/13/23 Metoclopramide [Reglan] 5 mg PO TID 14 Days #42 tab 04/07/23 Spironolactone [Aldactone*] 25 mg PO DAILY #30 tab 04/07/23 hydroCHLOROthiazide [Hydrochlorothiazide*] 12.5 mg PO DAILY #30 cap 04/07/23 traMADol HCL [Ultram*] 50 mg PO Q6H PRN #15 tab 04/07/23 New Medications: Spironolactone [Aldactone*] 25 mg PO DAILY #30 tab hydroCHLOROthiazide [Hydrochlorothiazide*] 12.5 mg PO DAILY #30 cap Metoclopramide [Reglan] 5 mg PO TID 14 Days #42 tab traMADol HCL [Ultram*] 50 mg PO Q6H PRN #15 tab PRN Reason: Pain Physician Discharge Instructions: Patient was admitted to the hospital for intractable nausea/vomiting, this was deemed likely secondary to gastroparesis/GERD. Patient was recently admitted and started on Carafate, twice daily PPI which had been helping her up until the last few days prior to admission. During her admission she was started on Reglan 5 mg IV 3 times daily and she had significant improvement in her symptoms, she has been tolerating a diet. Of note patient had lower extremity edema on admission as well, she was given chlorthalidone and spironolactone and had complete resolution of her lower extremity edema, echocardiogram was also performed which was normal. Renal function was similar to baseline at discharge creatinine is 2.69. Discussed medications with nephrology prior to discharge, recommendation is for new medications including hydrochlorothiazide 12.5 mg daily and spironolactone 25 mg daily and close follow-up with nephrology in 1 to 2 weeks. Please follow-up with: Your primary care doctor later today as scheduled Your GI doctor on Saturday 04/[address] Kennedy with nephrology in 1 to 2 weeks. Please start new medications as follows: Reglan 5 mg by mouth 3 times daily-please discuss further with your GI doctor Hydrochlorothiazide 12.5 mg by mouth daily Spironolactone 25 mg by mouth daily Tramadol 50 mg by mouth 3 times daily as needed for pain Diet: [place] Activity: Ad rachael Followup: Cleve Kennedy DO [ACTIVE - CAN ADMIT] - 1-2 Weeks Adriano Agee DO [Primary Care Provider] - 1-2 Days Time spent managing pt's care (in minutes): 35
--- NOTE | 2023-04-07 21:46 | P.PN ---
Date of Service: 04/07/23 Vital Signs Temp Pulse Resp BP Pulse Ox 97.6 F 70 16 154/74 H 100 04/07/23 08:00 04/07/23 08:49 04/07/23 08:00 04/07/23 08:49 04/07/23 08:00 Assessment/ Plan: Nephrology No dyspnea No chest pain Feeling better with improving edema No acute events overnight Vitals, medications, blood work and imaging reviewed in the chart NAD. MMM. NCAT. Normal Respiratory Effort. S1S2. ND Abd. No C/C. LE Edema 1+. No rash. AAO. Normal speech. Temp Pulse Resp BP Pulse Ox 98.7 F 69 17 153/73 H 98 04/05/23 08:00 04/05/23 08:00 04/05/23 08:00 04/05/23 08:00 04/05/23 08:00 Laboratory Data (last 24 hrs) 04/04/23 04/04/23 04/04/23 14:18 14:18 14:18 WBC 9.00 Hgb 9.4 L Hct 27.1 L Plt Count 410 H PT 12.7 H INR 1.16 Sodium 138 Potassium 4.2 BUN 28 H Creatinine 2.57 H Glucose 197 H Magnesium 1.5 L Total Bilirubin 0.4 AST 27 ALT 37 Alkaline Phosphatase 103 Lipase 21 Imagings Data: EXAM DESCRIPTION: CT - Abdomen Pelvis Wo Contrast - 04/04/2023 3:11 pm CLINICAL HISTORY: Abdominal pain COMPARISON: February 2023 TECHNIQUE: Computed axial tomography of the abdomen and pelvis was obtained. IV and oral contrast were not requested. All CT scans are performed using dose optimization technique as appropriate and may include automated exposure control or mA/KV adjustment according to patient size. FINDINGS: The evaluation of solid organs, vessels and bowel is limited secondary to the lack of contrast administration. Multiple, tiny bilateral renal calculi. No hydronephrosis. Ureteral calculus is not seen. No bladder calculus. Cholecystectomy The liver, spleen, pancreas, adrenals and kidneys appear grossly normal. The appendix is normal. There is no evidence of diverticulitis. No adnexal mass IMPRESSION: Multiple, tiny bilateral nonobstructing renal calculi. EXAM DESCRIPTION: [facility] Single View04/04/2023 2:14 pm CLINICAL HISTORY: Abdominal pain COMPARISON: February 2023 FINDINGS: The lungs appear clear of acute infiltrate. The heart is normal size IMPRESSION: No acute abnormalities displayed EXAM DESCRIPTION: USExtrem Venous W Compress Bil04/04/2023 3:14 pm CLINICAL HISTORY: Leg pain COMPARISON: none FINDINGS: The left popliteal vein, common femoral, superficial femoral, greater saphenous and posterior tibial veins bilaterally are compressible and demonstrate augmentation. Doppler demonstrates good flow. Compression of the distal right popliteal vein is limited. However Doppler demonstrates good flow. Grayscale, color and spectral analysis performed on all vessels IMPRESSION: Limited compression of the distal right popliteal vein. However Doppler demonstrates good flow. This probably is not significant. However, if the patient right leg pain/swelling does not resolve then follow-up right leg venous ultrasound would be recommended Remainder of exam unremarkable Conclusions/Impression: CKD IV with Proteinuria -No NSAIDs Hypomagnesemia -Replete prn HTN with CKD -Change Chlorthalidone to HCTZ -Continue Spironolactone -Continue Coreg LE Edema -Low sodium diet -Daily weight -Continue diuresis DM II with CKD, Polyneuropathy and Gastroparesis -RISS -Reglan as ordered Anemia in chronic illness -Monitor H&H Nephrolithiasis -Non obstructing -Continue HCTZ CKD MBD -Continue Ergo Hospitalist notes reviewed Case reviewed with hospitalist team
== END 2023-04-07 10:46 | disposition home or self-care (01) | DRG 74 ==
LOC: ER 13:25 → ERHOLD 17:04 → 4TH 19:19 → OBSVTOIN 04-06 14:11
PROVIDERS: ADMIT Internal Medicine; ATTEND Hospitalist
DX: E11.43 Type 2 diabetes mellitus with diabetic autonomic (poly)neuropathy (principal); N17.9 Acute kidney failure, unspecified; N18.4 Chronic kidney disease, stage 4 (severe); I12.9 Hypertensive chronic kidney disease with stage 1 through stage 4 chronic kidney disease, or unspecified chronic kidney disease; E11.22 Type 2 diabetes mellitus with diabetic chronic kidney disease; E11.42 Type 2 diabetes mellitus with diabetic polyneuropathy; E11.65 Type 2 diabetes mellitus with hyperglycemia; D63.1 Anemia in chronic kidney disease; K21.9 Gastro-esophageal reflux disease without esophagitis; N20.0 Calculus of kidney; E83.42 Hypomagnesemia; K31.84 Gastroparesis; E78.00 Pure hypercholesterolemia, unspecified; Z88.5 Allergy status to narcotic agent; Z90.49 Acquired absence of other specified parts of digestive tract; Z79.02 Long term (current) use of antithrombotics/antiplatelets; Z79.84 Long term (current) use of oral hypoglycemic drugs; Z79.890 Hormone replacement therapy; Z79.899 Other long term (current) drug therapy
CPT/HCPCS: 36415; 71045; 74176; 80048; 80076; 81001; 82140; 82947; 83690; 83735; 83880; 84100; 84439; 84443; 84484; 85025; 85610; 93005; 93306; 93970; 96361; 96365; 96366; 96375; 99285; C9113; G0378; J1644; J1815; J2405; J2550; J2765; J3010; J3475; J7030

== ENCOUNTER 2024-02-01 11:10 | Observation (INO) | payer OTHER ==
--- OUTSIDE RECORDS SUMMARY | 2024-02-01 11:18 | XMS REPORT | Continuity of Care Document ---
Author Name Unknown Address [address] [facility] [address] [place] [address] [facility] thconnect Address [address] [facility] [address] [place] [address] Care Team Providers Care Marketing Writer Name Role Phone Karen Logan Primary Care Physician [phone] MATEO ANTHONY Attending Clinician Unavailable IVIS HOOVER Attending Clinician Unavailable GIDEON RODRIGUEZ Attending Clinician Unavailable ADRIANO AGEE Attending Clinician Unavailable LAB90 Attending Clinician Unavailable OLIVIA WHITEHEAD Attending Clinician UnavailGEREMIAS Wood Attending Clinician UnavailCARISSA Albarran Attending Clinician Unava ilable 1, [facility] Attending Clinic mann Unavailable PRINCE CHEEK Attending Clinician Unavailable DEANNE KAUR Attending Clinician Unavail able NIRALI FLORES Attending Clinician Unavailabl e [id number] Attending Clinician Unavailable KESHAWN SCHNEIDER Attending Clinician Unavailable LAB47 Attending Clinician Unavailable KESHAWN JONES Attending Clinician Unavailable TOMOGRAPHY, [facility] Attending Cl inician Unavailable KEMAR RODRIGUEZ Attending Clinician Unavailab ESTHER Marsh Attending Clinician Unavailable KEATON PATIÑO Attending Clinician Unavailable Keaton Patiño MD Attending Clinician + [phone] MD ELIJAH Attending Clinician Unavailab TANGELA Mendoza Attending Clinician Unavailab le ONLY, [facility] HEM/ONC NURSE Attending Clinician Lila vailable \\R\\RSOH_Magy Attending Clinician Unavailable LIZETH FLORES Attending Clinician Unavailable ERIC DURBIN Attending Clinician Unavailab SEBASTIAN Rose Attending Clinician Unava ilable ANDREI MAR Attending Clinician Unavailable TOMOGRAPHY, [facility] Attending Cl inician Unavailable SHMUEL HAGEN Attending Clinician Unavailable NUHA WINSTON Attending Clinician Unav ailable VF53 Attending Clinician Unavailable LEONID ROSE Attending Clinician Unava ilable IVT, GABY Attending Clinician Unavailable CARLTON HERNANDEZ Attending Clinician Unavailab ISMA Zimmerman Attending Clinician Unavailable INFUSION, [facility] Attending Clinician Unavailable ANGELA BELTRAN Attending Clinician Unavailable ZAIN DIOR Attending Clinician Unavailable MATTHEW ASHFORD Attending Clinician Unavailable PHOEBE ROWE Attending Clinician Unavailable ANDREW VERDUZCO Attending Clinician Unavailab ANDREW Valenzuela Attending Clinician Unavailab ROSETTA Hernández Attending Clinician Unavailable Toni [facility], Malini Cates Attending Clinician + [phone] Doctor Unassigned, [place] Attending Clinician U navailable UNKNOWN, ATTENDING Attending Clinician Unavailab LEXA Watson Attending Clinician Unavailable Lexa Goff DO Attending Clinician [phone] PATRIA LEVY Attending Clinician Unavailab Santos Colón Attending Clinician Unavailable KEATON PATIÑO Admitting Clinician Unavailable \\R\\RSOH_Magy Admitting Clinician Unavailable LEXA GOFF Admitting Clinician Unavailable Santos MOISE Admitting Clinician Unavailable Payers Payer Name Policy Type Policy Number Effective Date Expirati on Date Source [employer] MP [facility] [address] SEWER BRICKLAYER 94 ON 9 [id number] 2023 00:00:00 [employer] 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 [id number] 2023 00:00:00 MELISSA GRANT IPA - [employer] (O) [id number] 2022 00:00:00 Problems Condition Name Condition Details Condition Category Status Onset Date Resolution Date Last Treatment Date Treating Clinician Comments Source Immunodefi 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 (multi HCC) Immunodefi 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 (multi HCC) Disease Active 2023-02 00:00: 00 Melissa Seybold - Externa l DM cataract (multi HCC) DM cataract (multi HCC) Disease Active 09-30 00:00: 00 Melissa Seybold - Externa l Vitreous hemorrhage of both eyes Vitreous hemorrhage of both eyes Disease Active 09-30 00:00: 00 Melissa Seybold - Externa l Class 1 obesity due to excess calories with serious comorbidit y and body mass index (BMI) of 32.0 to 32.9 in adult Class 1 obesity due to excess calories with serious comorbidit y and body mass index (BMI) of 32.0 to 32.9 in adult Disease Active 09-30 00:00: 00 Melissa Seybold - Externa l Overweight (BMI 25.0-29.9) Overweight (BMI 25.0-29.9) Disease Active 09-30 00:00: 00 Melissa Seybold - Externa l Grief reaction Grief reaction Disease Active 08-09 00:00: 00 Melissa Seybold - Externa l Diabetic polyneurop athy associated with type 2 diabetes mellitus (multi HCC) Diabetic polyneurop athy associated with type 2 diabetes mellitus (multi HCC) Disease Active 05-31 00:00: 00 Melissa Seybold - Externa l CKD (chronic kidney disease) stage 4, GFR 15-29 ml/min (multi HCC) CKD (chronic kidney disease) stage 4, GFR 15-29 ml/min (multi HCC) Disease Active -18 00:00: 00 Melissa Seybold - Externa l Hyperparat hyroidism (multi HCC) Hyperparat hyroidism (multi HCC) Disease Active 4-18 00:00: 00 Melissa Barronold - Externa l Type 2 diabetes mellitus with stage 4 chronic kidney disease, without long-term current use of insulin (multi HCC) Type 2 diabetes mellitus with stage 4 chronic kidney disease, without long-term current use of insulin (multi HCC) Disease Active 00:00: 00 Melissa Barronold - Externa l Hospital discharge follow-up Hospital discharge follow-up Disease Active 00:00: 00 Melissa Barronold - Externa l Pain in both hands Pain in both hands Disease Active 2022-02 00:00: 00 Melissa Barronold - Externa l Left elbow pain Left elbow pain Disease Active 2022-02 00:00: 00 Melissa Barronold - Externa l Uterine prolapse Uterine prolapse Disease Active 2022-02 004 00:00: 00 Melissa Barronold - Externa l Chronic kidney disease stage 3B Chronic Kidney Disease Stage 3B Problem Active 07-23 00:00: 00 [facility]oram ic - unspeci fied Anemia Anemia Problem Active 07-23 00:00: 00 [facility] - unspeci fied Hypertensi ve renal disease Hypertensi ve Renal Disease Problem Active 07-23 00:00: 00 [facility] - unspeci fied Edema Edema Problem Active 07-23 00:00: 00 [facility] - unspeci fied Clinical finding Clinical Finding Problem Active 07-23 00:00: 00 [facility]am ic - unspeci fied Chronic kidney disease due to type 2 diabetes mellitus Chronic Kidney Disease Due to Type 2 Diabetes Mellitus Problem Active 07-23 00:00: 00 [facility]am ic - unspeci fied Charcot's joint arthropath y in type 2 diabetes mellitus (multi HCC) Charcot's joint arthropath y in type 2 diabetes mellitus (multi HCC) Disease Active 17 00:00: 00 Melissa Seybold - Externa l 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, without long-term current use of insulin (multi HCC) 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, without long-term current use of insulin (multi HCC) Disease Active 05-12 00:00: 00 Melissa Seybold - Externa l 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, without long-term current use of insulin (multi HCC) 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, without long-term current use of insulin (multi HCC) Disease Active 05-12 00:00: 00 Melissa Seybold - Externa l Retinopath y of both eyes, background , proliferat blake Retinopath y of both eyes, background , proliferat blake Disease Active 05-12 00:00: 00 Melissa Seybold - Externa l Type 2 diabetes mellitus with stage 3b chronic kidney disease, without long-term current use of insulin (multi HCC) Type 2 diabetes mellitus with stage 3b chronic kidney disease, without long-term current use of insulin (multi HCC) Disease Active 05-08 00:00: 00 Melissa Seybold - Externa l Well adult exam Well adult exam Disease Active 05-01 00:00: 00 Melissa Seybold - Externa l Menorrhagi a with irregular cycle Menorrhagi a with irregular cycle Disease Active 05-01 00:00: 00 Melissa Seybold - Externa l Iron deficiency anemia due to chronic blood loss Iron deficiency anemia due to chronic blood loss Disease Active 16 00:00: 00 Melissa Seybold - Externa l Acquired hypothyroi dism Acquired hypothyroi dism Disease Active 04-03 00:00: 00 Melissa Seybold - Externa l Primary hypertensi on Primary hypertensi on Disease Active 04-03 00:00: 00 Melissa Seybold - Externa l Edema of right lower extremity Edema of right lower extremity Disease Active 04-03 00:00: 00 Melissa Seybold - Externa l History of foot fracture History of foot fracture Disease Active 04-03 00:00: 00 Melissa Seybold - Externa l DM type 2 with diabetic mixed hyperlipid emia (multi HCC) DM type 2 with diabetic mixed hyperlipid emia (multi HCC) Disease Active 2-24 00:00: 00 Melissa Grant - Externa l BMI 27.0-27.9, adult BMI 27.0-27.9, adult Disease Active 08-20 00:00: 00 [facility] Screening examinatio n for STD (sexually transmitte d disease) Screening examinatio n for STD (sexually transmitte d disease) Disease Active 08-20 00:00: 00 [facility] Elevated blood pressure reading without diagnosis of hypertensi on Elevated blood pressure reading without diagnosis of hypertensi on Disease Active 08-20 00:00: 00 [facility] BMI 27.0-27.9, adult BMI 27.0-27.9, adult Disease Active 08-20 00:00: 00 [facility] Pain pelvic Pain pelvic Disease Active 08-20 00:00: 00 [facility] Allergies, Adverse Reactions, Alerts Allergy Name Allergy Type Status Severity Reaction(s) Onset Date Inactive Date Treating Clinician Comments Source Hydrocod one Propensi ty to adverse reaction s Active 3-02 00:00: 00 Other reaction( s): Nausea/Vo mitingOth er reaction( s): Not available Melissa Flannery l Hydrocod one Allergy to substanc e Active Pan[facility]am ic - unspeci fied NO KNOWN ALLERGIE S Drug Class Active [facility] Social History Social Habit Start Date Stop Date Quantity Comments Source ASSERTION Not Melissa Grant - External History of Occupation Melissa Grant - External Gender identity Trisha Grant - External [facility] intake 2024-01-05 00:00:00 2024-01-05 00:00:00 Ex-drinker (finding) Melissa Grant - External Tobacco use and exposure 2023-05-27 00:00:00 2023-05-27 00:00:00 Smokeless tobacco non-user Melissa Grant - External Alcohol intake 2023-04-16 00:00:00 2023-04-16 00:00:00 Ex-drinker (finding) Melissa Grant - External Sex 2023-01-20 16:19:33 2023-01-20 16:19:33 Female (finding) Melissa Grant - External History of tobacco use 2022-06-08 00:00:00 Passive smoker Melissa Grant - External Education 2022-04-03 00:00:00 2022-04-03 00:00:00 8 Melissa Grant - External History of Social function 2021-09-30 00:00:00 2021-09-30 00:00:00 [facility] Exposure to SARS-CoV-2 (event) 2021-09-19 00:00:00 2021-09-29 13:11:00 Not sure [facility] History SDOH Alcohol Frequency 2019-08-21 00:00:00 2019-08-21 00:00:00 2 [facility] History SDOH Alcohol Std Drinks 2019-08-21 00:00:00 2019-08-21 00:00:00 1 [facility] History SDOH Alcohol Binge 2019-08-21 00:00:00 2019-08-21 00:00:00 1 [facility] Alcohol Comment 2019-08-21 00:00:00 2019-08-21 00:00:00 social [facility] Sex assigned at 1975 00:00:00 1975 00:00:00 Melissa Ugalde Smoking Status Start Date Stop Date Source Current Some Day Smoker Panoramic - unspecif ied Ex-smoker 2023-05-27 00:00:00 2023-05-27 00:00:00 Melissa Griffin External Smokes tobacco daily 2022-04-03 00:00:00 Melissa Griffin External Never smoked tobacco [facility] Medications Ordered Medication Name Filled Medication Name Start Date Stop Date Current Medication? Ordering Clinician Indication Dosage Frequency Signature (SIG) Comments Components Source Aspirin 81 MG oral Tablet Delayed Response 2023-02 11:33: 14 Yes 81mg QD Take 1 tablet (81 mg total) by mouth daily. Melissa Uribea l Insulin Degludec (Tresiba FlexTouch) 100 UNIT/ML subcutaneou s Solution Pen-injecto r 2023-02 00:00: 00 Yes [id number] 10U QD Inject 10 units into the skin daily. Melissa cates Pantoprazol e Sodium 40 MG oral Tablet Delayed Response 2023-02 00:00: 00 Yes [id number] 40mg QD Take 1 tablet (40 mg total) by mouth daily. Melissa cates Gabapentin 100 MG oral Capsule 2023-02 00:00: 00 Yes [id number] 100mg QD Take 1 capsule (100 mg total) by mouth daily as needed (pain). Indication s: Disease of the Peripheral Nerves Melissa cates Insulin Glargine (Basaglar KwikPen) 100 UNIT/ML subcutaneou s Solution Pen-injecto r 2023-02 00:00: 00 01-04 00:00 :00 No [id number] 15U QD Inject 15 units into the skin daily (with breakfast) . Melissa cates Insulin Pen Needle (Pen Mul[place]on) 33G X 4 MM does not apply Misc 2023-02 0 00:00: 00 Yes [id number] 1{each} QD Inject 1 each into the skin daily To use with insulin pen. Melissa cates Insulin Glargine (Basaglar KwikPen) 100 UNIT/ML subcutaneou s Solution Pen-injecto r 2023-02 030 00:00: 00 Yes [id number] 10U QD Inject 10 units into the skin daily (with breakfast) . Melissa cates Continuous Glucose Sensor (Dexcom G6 Sensor) does not apply Misc 2023-02 00:00: 00 Yes [id number] 9109 Check glucose continuous ly. Melissa cates Atorvastati n Calcium (Lipitor) 10 MG oral Tablet 2023-02 0 00:00: 00 Yes [id number] 3 10mg QD Take 1 tablet (10 mg total) by mouth nightly. Melissa cates Continuous Glucose Transmitter (Dexcom G6 Transmitter ) does not apply Misc 2023-02 0 00:00: 00 Yes [id number] 9109 Check glucose continuous ly. Melissa cates Continuous Glucose Target Aircraft Controller (Dexcom G6 Target Aircraft Controller) does not apply Device 2023-02 00:00: 00 Yes [id number] 9109 Check glucose continuous ly. Melissa cates Sucralfate (Carafate) 1 g oral Tablet 2023-02 00:00: 00 01-04 00:00 :00 No [id number] 1g Q.25D Take 1 tablet (1 g total) by mouth 4 times daily. Melissa cates Pantoprazol e Sodium 40 MG oral Tablet Delayed Response 2023-02 00:00: 00 01-04 00:00 :00 No [id number] 40mg QD Take 1 tablet (40 mg total) by mouth daily. Melissa cates Sitagliptin Phosphate (Januvia) 25 MG oral Tablet 2023-02 00:00: 00 Yes [id number] 3 25mg QD Take 1 tablet (25 mg total) by mouth daily. Melissa cates Levothyroxi ne Sodium 75 MCG oral Tablet 2023-02 00:00: 00 Yes [id number] 75ug QD take 1 tablet by mouth every day Melissa cates Aspirin 81 MG oral Tablet Delayed Response 2023-02 10:15: 37 Yes 81mg QD Take 1 tablet (81 mg total) by mouth daily. Melissa cates Aspirin 81 MG oral Tablet Delayed Response 2023-02 09:02: 07 Yes 81mg QD Take 1 tablet (81 mg total) by mouth daily. Melissa cates Gabapentin 100 MG oral Capsule 11-04 00:00: 00 Yes [id number] 100mg QD Take 1 capsule (100 mg total) by mouth daily as needed (pain). Indication s: Disease of the Peripheral Nerves Melissa cates Dulaglutide (Trulicity) 0.75 MG/0.5ML subcutaneou s Solution Pen-injecto r 10-26 00:00: 00 Yes [id number] .75mg Q1W Inject 0.75 mg into the skin once a week. Melissa Grant - Externa l Latanoprost 0.005 % ophthalmic Solution 10-25 00:00: 00 Yes [id number] 1[drp] QD Place 1 drop into both eyes nightly. Melissa Griffin Externa l Aspirin 81 MG oral Tablet Delayed Response 10-14 08:14: 31 Yes 81mg QD Take 1 tablet (81 mg total) by mouth daily. Melissa Griffin Externa l Aspirin 81 MG oral Tablet Delayed Response 10-05 09:08: 43 Yes 81mg QD Take 1 tablet (81 mg total) by mouth daily. Melissa Griffin Externa l Tobramycin- dexAMETHaso ne (TobraDex) 0.3-0.1 % ophthalmic Suspension 10-05 00:00: 00 Yes 1 drop right eye 4 times per day for 7 days, then 2 times per day until it runs out. Melissa Flannery l Aspirin 81 MG oral Tablet Delayed Response 09-30 09:51: 00 Yes 81mg QD Take 1 tablet (81 mg total) by mouth daily. Melissa cates Trulicity 0.75 MG/0.5ML subcutaneou s Solution Pen-injecto r 09-30 00:00: 00 Yes [id number] .75mg Q1W Inject 0.75 mg into the skin once a week. Melissa Uribea l Gabapentin 100 MG oral Capsule 09-30 00:00: 00 Yes [id number] 100mg Q.5D Take 1 capsule (100 mg total) by mouth 2 times daily as needed (pain). Indication s: Disease of the Peripheral Nerves Melissa Flannery l Olmesartan Medoxomil 5 MG oral Tablet 09-30 00:00: 00 Yes [id number] 1{tbl} QD Take 1 tablet by mouth daily. Melissa Uribea l Bilateral: Bevacizumab (AVASTIN) [100 mg/4 mL], 2.5mg - Physician Administere d ([id number]) 09-26 10:12: 18 No [id number] 101 2.5mg 2.5 mg, Physician Administer ed, ONCE, 1 dose, On Wed09/27/23 at 1015 eMlissa cates Sodium Bicarbonate 650 MG oral Tablet 09-20 00:00: 00 Yes [id number] 650mg Q.[id number] 3D Take 1 tablet (650 mg total) by mouth 3 times daily. Melissa cates Pantoprazol e Sodium 40 MG oral Tablet Delayed Response 09-13 00:00: 00 Yes 40mg Q.5D Take 1 tablet (40 mg total) by mouth 2 times daily. Melissa cates Carvedilol (Coreg) 6.25 MG oral Tablet 09-13 00:00: 00 Yes 6.25mg Take 1 tablet (6.25 mg total) by mouth in the morning and 1 tablet (6.25 mg total) in the evening. Take with meals. Melissa cates glipiZIDE 10 MG oral Tablet 09-13 00:00: 00 12-07 00:00 :00 No [id number] 10mg Take 1 tablet (10 mg total) by mouth in the morning and 1 tablet (10 mg total) in the evening. Take before meals. Melissa cates Gabapentin 100 MG oral Capsule 08-09 09:37: 56 08-09 00:00 :00 No [id number] 100mg QD Take 1 capsule (100 mg total) by mouth daily. Indication s: Disease of the Peripheral Nerves Melissa cates Carvedilol (Coreg) 6.25 MG oral Tablet 08-09 09:29: 42 Yes 6.25mg Take 1 tablet (6.25 mg total) by mouth in the morning and 1 tablet (6.25 mg total) in the evening. Take with meals. Melissa cates Duloxetine HCl [address] Particles 08-09 00:00: 00 12-07 00:00 :00 No [id number] 20mg QD Take 1 capsule (20 mg total) by mouth daily. Melissa cates Sitagliptin Phosphate (Januvia) 25 MG oral Tablet 08-09 00:00: 09-30 00:00 :00 No [id number] 25mg QD Take 1 tablet (25 mg total) by mouth daily. Melissa cates Gabapentin 100 MG oral Capsule 08-09 00:00: 00 09-30 00:00 :00 No [id number] 100mg QD Take 1 capsule (100 mg total) by mouth daily. Indication s: Disease of the Peripheral Nerves Melissa cates Pantoprazol e Sodium 40 MG oral Tablet Delayed Response 08-02 00:00: 00 Yes 40mg Q.5D Take 1 tablet (40 mg total) by mouth 2 times daily. Melissa cates Bilateral: Bevacizumab (AVASTIN) [100 mg/4 mL], 2.5mg - Physician Administere d ([id number]) 07-27 20:30: 00 07-27 20:20 :00 No [id number] 101 2.5mg 2.5 mg, Physician Administer ed, ONCE, 1 dose, On Wed07/28/23 at 1530 Melissa cates Carvedilol (Coreg) 6.25 MG oral Tablet 07-27 14:41: 18 Yes 6.25mg Take 1 tablet (6.25 mg total) by mouth in the morning and 1 tablet (6.25 mg total) in the evening. Take with meals. Melissa cates Levothyroxi ne Sodium 75 MCG oral Tablet 05-27 00:00: 00 Yes [id number] 75ug QD Take 1 tablet (75 mcg total) by mouth daily. Melissa cates Ergocalcife rol 1.25 MG (31550 UT) oral Capsule 18 00:00: 00 04-28 04:59 :00 No [id number] 21226K Q1W Take 1 capsule (50,000 units total) by mouth once a week. Melissa cates Sucralfate (Carafate) 1 g oral Tablet 12 00:00: 00 12-07 00:00 :00 No 1g Q.25D Take 1 tablet (1 g total) by mouth 4 times daily. Melissa cates Esomeprazol e Magnesium (NexIUM) 40 MG oral Delayed Release Capsule 04-15 00:00: 00 05-31 00:00 :00 No 40mg Take 1 capsule (40 mg total) by mouth 2 times daily for 14 days. Melissa cates Amoxicillin (AMOXIL) 500 MG oral Capsule 04-15 00:00: 00 04-30 04:59 :00 No 1000mg Take 2 capsules (1,000 mg total) by mouth 2 times daily for 14 days. Melissa cates Clarithromy margareth 500 MG oral Tablet 04-15 00:00: 00 04-30 04:59 :00 No 500mg Take 1 tablet (500 mg total) by mouth 2 times daily for 14 days. Melissa cates Latanoprost 0.005 % ophthalmic Solution 04-12 00:00: 00 10-25 00:00 :00 No [id number] 1[drp] QD Place 1 drop into both eyes nightly. Melissa cates Dicyclomine HCl 20 MG oral Tablet 14:34: 34 00:00 :00 No 20mg QD Take 1 tablet (20 mg total) by mouth daily as needed (GI upset). Melissa cates Metoclopram torrey HCl (Reglan) 5 MG oral Tablet 14:28: 16 00:00 :00 No 5mg Q.5D Take 1 tablet (5 mg total) by mouth 2 times daily as needed. Melissa cates Sitagliptin Phosphate (Januvia) 25 MG oral Tablet 00:00: 00 08-09 00:00 :00 No [id number] 25mg QD Take 1 tablet (25 mg total) by mouth daily. Melissa cates Metoclopram torrey HCl (Reglan) 5 MG oral Tablet 00:00: 00 05-26 00:00 :00 No [id number] 5mg Q.5D Take 1 tablet (5 mg total) by mouth 2 times daily as needed (nausea). Melissa cates Dicyclomine HCl 20 MG oral Tablet 00:00: 00 05-26 00:00 :00 No [id number] 10mg QD Take 0.5 tablets (10 mg total) by mouth daily as needed (GI upset). Melissa cates hydroCHLORO thiazide 12.5 MG oral Capsule 04-07 00:00: 00 05-31 00:00 :00 No 12.5mg Take 1 capsule (12.5 mg total) by mouth every morning. Melissa cates Spironolact one 25 MG oral Tablet 04-07 00:00: 00 05-26 00:00 :00 No 25mg Take 1 tablet (25 mg total) by mouth daily. Melissa cates Metoclopram torrey HCl 5 MG oral Tablet 04-07 00:00: 00 00:00 :00 No 5mg Take 1 tablet (5 mg total) by mouth 4 times daily. Melissa ctaes Duloxetine HCl [address] Particles 03-30 00:00: 00 08-09 00:00 :00 No 20mg QD Take 1 capsule (20 mg total) by mouth daily. Melissa cates Amoxicillin -Pot Clavulanate 875-125 MG oral Tablet - 00:00: 00 00:00 :00 No 1{tbl} Take 1 tablet by mouth 2 times daily. Melissa cates metoclopram torrey HCl (REGLAN) injection 10 mg 02-24 06:45: 00 02-24 06:46 :00 No 10mg 10 mg, Slow IV Push, ONCE, 1 dose, On Wed02/24/23 at 0045, FRANK [facility] morpHINE (4 mg/mL) injection 4 mg 02-24 06:45: 00 02-24 06:45 :00 No 4mg 4 mg, Slow IV Push, ONCE, 1 dose, On Wed02/24/23 at 0045, STAT [facility] ondansetron (ZOFRAN (PF)) injection 4 mg 02-24 06:00: 00 02-24 05:53 :00 No 4mg 4 mg, Slow IV Push, ONCE, 1 dose, On Wed02/24/23 at 0000, FRANK [facility] NaCl 0.9% (NS) IV infusion 1,000 mL 02-24 05:15: 00 Yes 1000mL at 999 mL/hr, Intravenou s, CONTINUOUS , Starting on Wed02/23/23 at 2315, Until Discontinu ed, Routine [facility] ketorolac (TORADOL) injection 30 mg 02-24 05:15: 00 02-24 04:27 :00 No 30mg 30 mg, Slow IV Push, ONCE, 1 dose, On Wed02/23/23 at 2315, Routine [facility] ondansetron (ZOFRAN (PF)) injection 4 mg 02-24 04:15: 00 02-24 04:14 :00 No 4mg 4 mg, Slow IV Push, ONCE, 1 dose, On Wed02/23/23 at 2215, FRANK [facility] maalox:diph enhydrAMINE :lidocaine 2 % viscous 1:1:1 ([facility] oral suspension 15 mL 02-24 04:15: 00 02-24 04:13 :00 No 15mL 15 mL, Oral, ONCE, 1 dose, On Wed02/23/23 at 2215, Routine [facility] dicyclomine 20 mg tablet 02-24 00:00: 00 02-24 00:00 :00 No [id number] 20mg Take 1 tablet by mouth every 6 (six) hours as needed for Abdominal pain. [facility] traMADoL (ULTRAM) 50 mg tablet 02-24 00:00: 00 02-24 00:00 :00 No [id number] 50mg Take 1 tablet by mouth every 6 (six) hours as needed for Pain (scale 7-10). Indication s: acute pain [facility] proMETHazin e 25 mg tablet 02-24 00:00: 00 02-24 00:00 :00 No [id number] 25mg Take 1 tablet by mouth every 6 (six) hours as needed for Nausea and Vomiting (N/V). [facility] Ibuprofen (MOTRIN) 400 MG oral Tablet 02-16 00:00: 00 00:00 :00 No [id number] 400mg Q.25D Take 1 tablet (400 mg total) by mouth every 6 hours as needed. Melissa cates HYDROcodone -Acetaminop hen ([place]) 5-325 MG oral Tablet 02-16 00:00: 00 00:00 :00 No [id number] 1{tbl} Q.25D Take 1 tablet by mouth every 6 hours as needed for pain. Melissa cates Benzonatate (Tessalon Perles) 100 MG oral Capsule 2022-02 00:00: 00 02-16 00:00 :00 No [id number] 100mg Q.[id number] 3D Take 1 capsule (100 mg total) by mouth 3 times daily as needed for cough. Melissa cates Azithromyci n 250 MG oral Tablet 2022-02 00:00: 00 01-04 05:59 :00 No [id number] Take 2 tablets by mouth on day 1 then 1 tablet by mouth daily for 4 days thereafter .. Melissa cates Olmesartan Medoxomil 5 MG oral Tablet 2022-02 00:00: 00 09-30 00:00 :00 No 1{tbl} QD Take 1 tablet by mouth daily. Melissa cates Ferrous Sulfate (Iron) 325 (65 Fe) MG oral Tablet 2022-02 00:00: 00 05-26 00:00 :00 No [id number] 325mg Take 1 tablet (325 mg total) by mouth daily (with breakfast) . Melissa cates Atorvastati n Calcium (Lipitor) 10 MG oral Tablet 2022-02 00:00: 00 12-07 00:00 :00 No [id number] 3 10mg QD Take 1 tablet (10 mg total) by mouth nightly. Melissa cates Duloxetine HCl [address] Particles 2022-02 00:00: 00 02-16 00:00 :00 No [id number] 20mg Take 1 capsule (20 mg total) by mouth daily. Melissa cates glipiZIDE 10 MG oral Tablet 2022-02 00:00: 00 Yes [id number] 10mg Take 1 tablet (10 mg total) by mouth in the morning and 1 tablet (10 mg total) in the evening. Take before meals. Melissa cates Esomeprazol e Magnesium (NexIUM) 40 MG oral Delayed Release Capsule 2022-02 00:00: 00 00:00 :00 No [id number] 40mg Take 1 capsule (40 mg total) by mouth every morning (before breakfast) . Melissa cates Carvedilol (Coreg) 6.25 MG oral Tablet 2022-02 00:00: 00 02-16 00:00 :00 No [id number] 6.25mg Take 1 tablet (6.25 mg total) by mouth in the morning and 1 tablet (6.25 mg total) in the evening. Take with meals. Melissa cates Duloxetine HCl [address] Particles 2022-02 0- 00:00: 00 11-11 00:00 :00 No [id number] 20mg Take 1 capsule (20 mg total) by mouth daily. Melissa cates Gabapentin 100 MG oral Capsule 2022-02 0- 00:00: 00 11-11 00:00 :00 No [id number] 100mg Take 1 capsule (100 mg total) by mouth nightly. [facility] cates Gabapentin 100 MG oral Capsule 11-02 00:00: 00 Yes [id number] 100mg Q.5D Take 1 capsule (100 mg total) by mouth 2 times daily as needed (pain). Melissa cates Bevacizumab (AVASTIN) 100 mg/4 mL - Physician Kaushal bedolla ([id number]) 10-30 19:30: 00 10-30 19:19 :00 No [id number] 101 1.25mg Melissa cates Latanoprost 0.005 % ophthalmic Solution 10-13 00:00: 04-12 00:00 :00 No [id number] 1[drp] Place 1 drop into both eyes nightly. Melissa cates Atorvastati n Calcium (Lipitor) 10 MG oral Tablet 09-28 00:00: 00 Yes [id number] 3 10mg Take 1 tablet (10 mg total) by mouth nightly. Melissa cates Latanoprost 0.005 % ophthalmic Solution 09-28 00:00: 10-13 00:00 :00 No [id number] 1[drp] Place 1 drop into both eyes [...] times daily for 14 days Melissa cates Levothyroxi ne Sodium 75 MCG oral Tablet 09-02 00:00: 00 Yes [id number] 75ug Take 1 tablet (75 mcg total) by mouth daily Melissa cates Sitagliptin Phosphate (Januvia) 50 MG oral Tablet 09-02 00:00: 00 00:00 :00 No [id number] 50mg Take 1 tablet (50 mg total) by mouth daily Melissa cates Lansoprazol e 30 MG oral Delayed Release Capsule 09-02 00:00: 00 11-11 00:00 :00 No [id number] 30mg Take 1 capsule (30 mg total) by mouth daily Melissa cates Sitagliptin Phosphate (Januvia) 50 MG oral Tablet 08-27 00:00: 00 Yes [id number] 50mg Take 1 tablet (50 mg total) by mouth daily Melissa cates Lansoprazol e 30 MG oral Delayed Release Capsule 08-27 00:00: 00 Yes [id number] 30mg Take 1 capsule (30 mg total) by mouth daily Melissa cates Latanoprost 0.005 % ophthalmic Solution 07-28 00:00: 00 Yes [id number] 1[drp] Place 1 drop into both eyes nightly Melissa cates glipiZIDE 10 MG oral Tablet 07-28 00:00: 00 Yes [id number] 10mg Take 1 tablet (10 mg total) by mouth in the morning and 1 tablet (10 mg total) in the evening. Take before meals. [facility] c[facility] Sitagliptin Phosphate (Januvia) 50 MG oral Tablet 07-28 00:00: 00 08-27 00:00 :00 No [id number] 50mg Take 1 tablet (50 mg total) by mouth daily Melissa cates Lansoprazol e 30 MG oral Delayed Release Capsule 07-28 00:00: 00 08-27 00:00 :00 No [id number] 30mg Take 1 capsule (30 mg total) by mouth daily Melissa cates Atorvastati n Calcium (Lipitor) 10 MG oral Tablet 07-10 00:00: 00 Yes [id number] 3 10mg Take 1 tablet (10 mg total) by mouth nightly Melissa cates Bilateral: Bevacizumab (AVASTIN) [100 mg/4 mL], 2.5mg - Physician Administere d ([id number]) 06-29 19:30: 00 06-29 19:28 :00 No [id number] 101 2.5mg Melissa cates Pantoprazol e Sodium 40 MG oral Tablet Delayed Response 06-24 10:53: 08 06-24 00:00 :00 No 40mg Take 1 tablet (40 mg total) by mouth daily Melissa cates Lisinopril 5 MG oral Tablet 06-24 10:49: 52 06-24 00:00 :00 No 5mg Take 1 tablet (5 mg total) by mouth daily Melissa cates Latanoprost 0.005 % ophthalmic Solution 06-24 00:00: 00 Yes [id number] 1[drp] Place 1 drop into both eyes nightly Melissa cates Pantoprazol e Sodium 40 MG oral Tablet Delayed Response 06-24 00:00: 00 Yes [id number] 40mg Take 1 tablet (40 mg total) by mouth daily Melissa cates Levothyroxi ne Sodium 75 MCG oral Tablet 06-24 00:00: 00 Yes [id number] 75ug Take 1 tablet (75 mcg total) by mouth daily Melissa cates Iron Sucrose (VENOFER) 300 mg in sodium chloride 0.9 % 250 mL infusion 06-22 17:15: 00 06-22 18:20 :00 No [id number] 300mg 300 mg, at 166.7 mL/hr, Administer [...] 06-19 00:00: 00 11-05 00:00 :00 No [id number] Instructio ns provided to patient. Follow instructio ns provided by provider. Melissa cates Latanoprost 0.005 % ophthalmic Solution 06-17 00:00: 00 Yes [id number] 1[drp] Place 1 drop into both eyes nightly Melissa cates Iron Sucrose (VENOFER) 300 mg in sodium chloride 0.9 % 250 mL infusion 06-09 17:15: 00 06-09 18:50 :00 No [id number] 300mg 300 mg, at 166.7 mL/hr, Administer over 90 Minutes, intravenou s, ONCE, On Wed06/09/22 at 1215, For 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 &nbs p;May repeat treatment if clinically indicated< br> Melissa cates Furosemide (LASIX) 20 MG oral Tablet 05-30 00:00: 00 06-24 00:00 :00 No Melissa cates Iron Sucrose (VENOFER) 300 mg in sodium chloride 0.9 % 250 mL infusion 05-26 16:45: 00 05-26 18:06 :00 No [id number] 300mg 300 mg, at 166.7 mL/hr, Administer [...] 1 tablet by mouth daily Melissa cates Latanoprost 0.005 % ophthalmic Solution 05-12 00:00: 00 Yes [id number] 1[drp] Place 1 drop into both eyes nightly Melissa cates Multiple Vitamins-Ir on (MULTIVITAM IN PLUS IRON ADULT OR) 05-11 14:21: 53 Yes 1{tbl} Take 1 tablet by mouth daily Melissa cates Januvia 50 MG oral Tablet 05-10 00:00: 00 Yes [id number] TAKE 1 TABLET BY MOUTH EVERY DAY Melissa cates Multiple Vitamins-Ir on (MULTIVITAM IN PLUS IRON ADULT OR) 05-08 10:04: 06 Yes 1{tbl} Take 1 tablet by mouth daily Melissa cates Sitagliptin Phosphate 50 MG oral Tablet 05-08 00:00: 00 Yes [id number] 50mg Take 1 tablet (50 mg total) by mouth daily Melissa cates glipiZIDE 10 MG oral Tablet 05-08 00:00: 00 Yes [id number] 10mg Take 1 tablet (10 mg total) by mouth in the morning and 1 tablet (10 mg total) in the evening. Take before meals. Melissa cates Rosuvastati n Calcium 40 MG oral Tablet 05-08 00:00: 00 06-24 00:00 :00 No [id number] 3 40mg Take 1 tablet (40 mg total) by mouth at bedtime Melissa cates Levothyroxi ne Sodium 75 MCG oral Tablet 05-05 00:00: 00 Yes [id number] 75ug Take 1 tablet (75 mcg total) [...] MG oral Tablet 05-01 00:00: 00 Yes [id number] 3 10mg Take 1 tablet (10 mg total) by mouth daily (before a meal) Melissa cates Sitagliptin Phosphate 100 MG oral Tablet 05-01 00:00: 00 Yes [id number] 3 100mg Take 1 tablet (100 mg total) by mouth daily Melissa cates Furosemide (LASIX) 20 MG oral Tablet 05-01 00:00: 00 Yes [id number] 40mg Take 2 tablets (40 mg total) by mouth daily Melissa cates Pantoprazol e Sodium 40 MG oral Tablet Delayed Response 04-12 00:00: 00 06-19 00:00 :00 No 40mg Take 1 tablet (40 mg total) by mouth daily Melissa cates Ferrous Sulfate (Iron) 325 (65 Fe) MG oral Tablet 04-09 00:00: 00 Yes [id number] 325mg Take 1 tablet (325 mg total) by mouth 2 times daily Melissa cates Levothyroxi ne Sodium 50 MCG oral Tablet 04-07 00:00: 00 Yes [id number] 50ug Take 1 tablet (50 mcg total) [...] Tablet Delayed Response 04-03 00:00: 00 Yes [id number] 81mg Take 1 tablet (81 mg total) by mouth daily Melissa cates SITagliptin (JANUVIA) 100 mg tablet 09-30 16:27: 53 09-30 00:00 :00 No 100mg Take 100 mg by mouth in the morning. [facility] glipiZIDE XL (GLUCOTROL XL) 10 mg 24 hr tablet 09-30 16:27: 53 09-30 00:00 :00 No 10mg Take 10 mg by mouth in the morning and 10 mg in the evening. [facility] rosuvastati n 20 mg tablet 09-30 16:17: 42 09-30 00:00 :00 No 20mg Take 20 mg by mouth at bedtime. [facility] lisinopriL 5 mg tablet 09-30 16:17: 29 09-30 00:00 :00 No 5mg Take 5 mg by mouth in the morning. [facility] furosemide 20 mg tablet 09-30 15:17: 03 Yes 20mg Take 20 mg by mouth in the morning. [facility] esomeprazol e (NEXIUM) 20 mg capsule 09-30 15:17: 03 Yes 20mg Take 20 mg by mouth daily before a meal. [facility] LO ASPIRIN ORAL 09-30 15:17: 03 Yes Take by mouth. [facility] Lisinopril 5 MG oral Tablet 09-30 00:00: 00 Yes 5mg Take 5 mg by mouth daily Melissa cates Rosuvastati n Calcium 20 MG oral Tablet 09-30 00:00: 00 Yes 40mg Take 40 mg by mouth at bedtime Melissa cates gabapentin 300 mg capsule 09-30 00:00: 00 Yes [id number] 300mg Take 1 capsule by mouth in the morning and 1 capsule at noon and 1 capsule in the evening. [facility] rosuvastati n 20 mg tablet 09-30 00:00: 00 Yes [id number] 20mg Take 1 tablet by mouth at bedtime. [facility] amitriptyli ne 25 mg tablet 09-30 00:00: 00 02-24 00:00 :00 No [id number] 25mg Take 1 tablet by mouth at bedtime. [facility] Sitagliptin Phosphate 100 MG oral Tablet 09-30 00:00: 00 05-01 00:00 :00 No 100mg Take 100 mg by mouth daily Melissa cates glipiZIDE XL (GLUCOTROL XL) 10 mg 24 hr tablet 09-30 00:00: 00 03-30 05:59 :00 No [id number] 10mg Take 1 tablet by mouth in the morning and 1 tablet in the evening. Do all this for 180 days. [facility] furosemide 20 mg tablet 07-24 00:00: 00 No 1mg furosemide 20 mg tablet 07-24 00:00: 00 No 1mg furosemide 20 mg tablet 5- 00:00: 00 No 1mg furosemide 20 mg tablet 5- 00:00: 00 No 1mg lisinopril 5 mg tablet 05-15 00:00: 00 No 1mg Januvia 100 mg tablet 4- 00:00: 00 No 1mg glipizide ER 10 mg tablet, extended release 24 hr - 00:00: 00 No 1mg lisinopril 5 mg tablet 05-15 00:00: 00 No 1mg Januvia 100 mg tablet 0 - 00:00: 00 No 1mg glipizide ER 10 mg tablet, extended release 24 hr - 00:00: 00 No 1mg Dose Unknown 4- 00:00: 00 No Dose Unknown 4- 00:00: 00 No Dose Unknown 4- 00:00: 00 No Dose Unknown - 00:00: 00 No Dose Unknown 4- 00:00: 00 No Dose Unknown 4 00:00: 00 No Dose Unknown 4 00:00: 00 No Dose Unknown 4 00:00: 00 No ondansetron 4 mg disintegrat ing tablet 3 00:00: 00 Yes [id number] 4mg Take 1 tablet by mouth every 8 (eight) hours as needed for Nausea and Vomiting (N/V). [facility] lisinopril 5 mg tablet 2020-02 2 [...] 10 mg tablet, extended release 24 hr 8- 00:00: 00 No 1mg Dose Unknown 8 00:00: 00 No Macrobid 100 mg capsule 8- 00:00: 00 No 1mg Januvia 50 mg tablet 8- 00:00: 00 No 1mg glipizide ER 10 mg tablet, extended release 24 hr 8- 00:00: 00 No 1mg Dose Unknown 8 00:00: 00 No Macrobid 100 mg capsule 8-25 00:00: 00 No 1mg Macrobid 100 mg capsule 607 00:00: 00 No 1mg Macrobid 100 mg capsule 6 00:00: 00 No 1mg ibuprofen 600 mg tablet 5-24 00:00: 00 No 1mg ibuprofen 600 mg tablet 5-24 00:00: 00 No 1mg glipizide 5 mg [...] 05-08 00:00: 00 09-30 00:00 :00 No [id number] 1{tbl} Take 1 tablet by mouth every 12 (twelve) hours. [facility] glipiZIDE 5 mg tablet 05-08 00:00: 00 09-30 00:00 :00 No [id number] 5mg Take 1 tablet by mouth daily. [facility] levothyroxi ne 25 mcg tablet 08-19 [...] 1mg aspirin 81 mg tablet,gokul yed release Take 1 tablet every day by oral route. aspirin 81 mg tablet,gokul yed release Take 1 tablet every day by oral route. No 1 Q1D aspirin 81 mg tablet,del ayed release Take 1 tablet every day by oral route. [facility] - unspeci fied atorvastati n 10 mg tablet Take 1 tablet every day by oral route. atorvastati n 10 mg tablet Take 1 tablet every day by oral route. No 1 Q1D atorvastat in 10 mg tablet Take 1 tablet every day by oral route. [facility] - unspeci fied carvedilol 3.125 mg tablet Take 1 tablet twice a day by oral route. carvedilol 3.125 mg tablet Take 1 tablet twice a day by oral route. No carvedilol 3.125 mg tablet Take 1 tablet twice a day by oral route. [facility] - unspeci fied metronidazo le 500 mg tablet TAKE 1 TABLET BY MOUTH 2 TIMES DAILY FOR 14 DAYS. metronidazo le 500 mg tablet TAKE 1 TABLET BY MOUTH 2 TIMES DAILY FOR 14 DAYS. No metronidaz ole 500 mg tablet TAKE 1 TABLET BY MOUTH 2 TIMES DAILY FOR 14 DAYS. [facility] - unspeci fied ondansetron HCl 4 mg tablet TAKE 1 TABLET BY MOUTH EVERY 8 HOURS NEEDED FOR NAUSEA ondansetron HCl 4 mg tablet TAKE 1 TABLET BY MOUTH EVERY 8 HOURS NEEDED FOR NAUSEA No ondansetro n HCl 4 mg tablet TAKE 1 TABLET BY MOUTH EVERY 8 HOURS NEEDED FOR NAUSEA [facility] - unspeci fied pantoprazol e 40 mg tablet,gokul yed release Take 1 tablet every day by oral route. pantoprazol e 40 mg tablet,gokul yed release Take 1 tablet every day by oral route. No 1 Q1D pantoprazo le 40 mg tablet,del ayed release Take 1 tablet every day by oral route. [facility] - unspeci fied Immunizations Ordered Immunization Name Filled Immunization Name Date Status Comments Source COVID-19 VACCINE MODERNA 6MONTHS-5YEARS 2021-01-22 00:00:00 Completed Melissa Seybold - External COVID-19 VACCINE MODERNA 6MONTHS-5YEARS 2021-01-22 00:00:00 Completed Melissa Seybold - External COVID-19 VACCINE MODERNA 6MONTHS-5YEARS 2021-01-22 00:00:00 Completed Melissa Seybold - External COVID-19 VACCINE MODERNA 6MONTHS-5YEARS 2021-01-22 00:00:00 Completed Melissa Seybold - External COVID-19 VACCINE MODERNA 6MONTHS-5YEARS 2021-01-22 00:00:00 Completed Melissa Seybold - External Moderna COVID-19 Vaccine 2021-01-22 00:00:00 Completed Moderna COVID-19 Vaccine 2021-01-22 00:00:00 Completed Covid-19 Vaccine Moderna (Spikevax), Mrna-lnp, Isaiah Protein, Pf 2020-07-29 00:00:00 Completed Melissa Quigleyybold - External [...] 2017-11-27 00:00:00 Completed Melissa Quigleyybold - External Influenza, Seasonal, [...] Injectable, Preservative Free 2017-11-27 00:00:00 Completed Melissa Barronold - External Influenza Nasal, Unspecified Formulation 2017-11-27 00:00:00 Completed Melissa Seybold - External Influenza, Seasonal, Injectable, Preservative Free 2017-11-27 00:00:00 Completed Melissa Seybold - External Influenza Nasal, Unspecified Formulation 2017-11-27 00:00:00 Completed Melissa Seybold - External Influenza, Seasonal, Injectable, Preservative Free 2017-11-27 00:00:00 Completed Melissa Seybold - External Influenza Nasal, Unspecified Formulation 2017-11-27 00:00:00 Completed Melissa Grant - External Covid-19 Vaccine Moderna (Spikevax), Mrna-lnp, Isaiah Protein, Pf Unknown Completed Melissa Quigleyold - External COVID-19 VACCINE MODERNA 6MONTHS-5YEARS Unknown Completed Melissa Seol d - External Influenza Nasal, Unspecified Formulation Unknown Completed Melissa Seybold - External Influenza, Seasonal, Injectable, Preservative Free Unknown Completed [facility] bold - External Covid-19 Vaccine Moderna (Spikevax), Mrna-lnp, Isaiah Protein, Pf Unknown [facility] VACCINE MODERNA 6MONTHS-5YEARS Unknown Completed Melissa Seol d - External Influenza Nasal, Unspecified Formulation Unknown Completed Melissa Seold - External Influenza, Seasonal, Injectable, Preservative Free Unknown Completed [facility] - External Covid-19 Vaccine Moderna (Spikevax), Mrna-lnp, Isaiah Protein, Pf [facility]ACC[facility] MODERNA 6MONTHS-5YEARS Unknown Completed Melissa Seol d - External Influenza Nasal, Unspecified Formulation Unknown Completed Melissa Seold - External Influenza, Seasonal, Injectable, Preservative Free Unknown Completed [facility] - External Covid-19 Vaccine Moderna (Spikevax), Mrna-lnp, Isaiah Protein, Pf Unknown Completed [facility] - External COVID-19 VACCINE MODERNA 6MONTHS-5YEARS Unknown Completed Melissa Seol d - External Influenza Nasal, Unspecified Formulation Unknown Completed Melissa Seold - External Influenza, Seasonal, Injectable, Preservative Free Unknown Completed [facility] - External Covid-19 Vaccine Moderna (Spikevax), Mrna-lnp, Isaiah Protein, Pf Unknown Completed [facility] - External COVID-19 VACCINE MODERNA 6MONTHS-5YEARS Unknown Completed Melissa Seol d - External Influenza Nasal, Unspecified Formulation Unknown Completed Melissa Seold - External Influenza, Seasonal, Injectable, Preservative Free Unknown Completed [facility] bold - External Covid-19 Vaccine Moderna (Spikevax), Mrna-lnp, Isaiah Protein, Pf Unknown [facility] VACCINE MODERNA 6MONTHS-5YEARS Unknown Completed Melissa Seybol d - External Influenza Nasal, Unspecified Formulation Unknown Completed Melissa Seybold - External Influenza, Seasonal, Injectable, Preservative Free Unknown Completed [facility] - External Covid-19 Vaccine Moderna (Spikevax), Mrna-lnp, Isaiah Protein, Pf Unknown Completed [facility] - External COVID-19 VACCINE MODERNA 6MONTHS-5YEARS Unknown [facility] Influenza Nasal, Unspecified Formulation Unknown Completed [facility] - External Influenza, Seasonal, Injectable, Preservative Free Unknown Completed [facility] - External Covid-19 Vaccine Moderna (Spikevax), Mrna-lnp, Isaiah Protein, Pf Unknown Completed [facility] - External COVID-19 VACCINE MODERNA 6MONTHS-5YEARS Unknown [facility] Influ[facility] Nasal, Unspecified Formulation Unknown [facility] Influenza, Seasonal, Injectable, Preservative Free Unknown Completed [facility] - External Covid-19 Vaccine Moderna (Spikevax), Mrna-lnp, Isaiah Protein, Pf Unknown Completed [facility] - External COVID-19 VACCINE MODERNA 6MONTHS-5YEARS Unknown [facility] Influenza Nasal, Unspecified Formulation Unknown Completed [facility] - External Influenza, Seasonal, Injectable, Preservative Free Unknown Completed [facility] - External Covid-19 Vaccine Moderna (Spikevax), Mrna-lnp, Isaiah Protein, Pf Unknown Completed [facility] - External COVID-19 VACCINE MODERNA 6MONTHS-5YEARS Unknown [facility] Influenza Nasal, Unspecified Formulation Unknown Completed [facility] - External Influenza, Seasonal, Injectable, Preservative Free Unknown Completed [facility] - External Covid-19 Vaccine Moderna (Spikevax), Mrna-lnp, Isaiah Protein, Pf Unknown Completed [facility] - External COVID-19 VACCINE MODERNA 6MONTHS-5YEARS Unknown [facility] Influenza Nasal, Unspecified Formulation Unknown [facility] Influenza, Seasonal, Injectable, Preservative Free Unknown Completed [facility] - External Covid-19 Vaccine Moderna (Spikevax), Mrna-lnp, Isaiah Protein, Pf Unknown Completed [facility] - External COVID-19 VACCINE MODERNA 6MONTHS-5YEARS Unknown Completed Melissa Seybol d - External Influenza Nasal, Unspecified Formulation Unknown Completed Melissa Seybold - External AFLURIA TRIVALENT PF(0.5mL) Unknown Completed Melissa Seybold - External Covid-19 Vaccine Moderna (Spikevax), Mrna-lnp, Isaiah Protein, Pf Unknown Completed Melissa Seybold - External COVID-19 VACCINE MODERNA 6MONTHS-5YEARS Unknown Completed Melissa Seybol d - External Influenza Nasal, Unspecified Formulation Unknown Completed Melissa Seybold - External AFLURIA TRIVALENT PF(0.5mL) Unknown Completed Melissa Seybold - External Covid-19 Vaccine Moderna (Spikevax), Mrna-lnp, Isaiah Protein, Pf Unknown Completed Melissa Seybold - External COVID-19 VACCINE MODERNA 6MONTHS-5YEARS Unknown Completed Melissa Seybol d - External Influenza Nasal, Unspecified Formulation Unknown Completed Melissa Seybold - External AFLURIA TRIVALENT PF(0.5mL) Unknown Completed Melissa Seybold - External Covid-19 Vaccine Moderna (Spikevax), Mrna-lnp, Isaiah Protein, Pf Unknown Completed Melissa Seybold - External COVID-19 VACCINE MODERNA 6MONTHS-5YEARS Unknown Completed Melissa Seybol d - External Influenza Nasal, Unspecified Formulation Unknown Completed Melissa Seybold - External AFLURIA TRIVALENT PF(0.5mL) Unknown Completed Melissa Seybold - External Covid-19 Vaccine Moderna (Spikevax), Mrna-lnp, Isaiah Protein, Pf Unknown Completed Melissa Seybold - External COVID-19 VACCINE MODERNA 6MONTHS-5YEARS Unknown Completed Melissa Seybol d - External Influenza Nasal, Unspecified Formulation Unknown Completed Melissa Seybold - External AFLURIA TRIVALENT PF(0.5mL) Unknown Completed Melissa Seybold - External Covid-19 Vaccine Moderna (Spikevax), Mrna-lnp, Isaiah Protein, Pf Unknown Completed Melissa Seybold - External COVID-19 VACCINE MODERNA 6MONTHS-5YEARS Unknown Completed Melissa Seybol d - External Influenza Nasal, Unspecified Formulation Unknown Completed Melissa Seybold - External AFLURIA TRIVALENT PF(0.5mL) Unknown Completed Melissa Seybold - External Covid-19 Vaccine Moderna (Spikevax), Mrna-lnp, Isaiah Protein, Pf Unknown [facility] VACCINE MODERNA 6MONTHS-5YEARS Unknown Com[facility] Influenza Nasal, Unspecified Formulation Unknown Completed [facility] - External AFLURIA TRIVALENT PF(0.5mL) Unknown Completed [facility] - External Covid-19 Vaccine Moderna (Spikevax), Mrna-lnp, Isaiah Protein, Pf Unknown [facility]-19 VACCINE MODERNA 6MONTHS-5YEARS Unknown Com[facility] Influenza Nasal, Unspecified Formulation Unknown Completed [facility] - External AFLURIA TRIVALENT PF(0.5mL) Unknown Completed [facility] - External Covid-19 Vaccine Moderna (Spikevax), Mrna-lnp, Isaiah Protein, Pf Unknown Completed [facility] - External COVID-19 VACCINE MODERNA 6MONTHS-5YEARS Unknown Completed [facility] Influenza Nasal, Unspecified Formulation Unknown Com[facility] Influenza, Seasonal, Injectable, Preservative Free Unknown Completed [facility] - External Covid-19 Vaccine Moderna (Spikevax), Mrna-lnp, Isaiah Protein, Pf Unknown Completed [facility] - External COVID-19 VACCINE MODERNA 6MONTHS-5YEARS Unknown Completed [facility] Influenza Nasal, Unspecified Formulation Unknown Com[facility] Influenza, Seasonal, Injectable, Preservative Free Unknown Completed [facility] - External Covid-19 Vaccine Moderna (Spikevax), Mrna-lnp, Isaiah Protein, Pf Unknown Completed [facility] - External COVID-19 VACCINE MODERNA 6MONTHS-5YEARS Unknown Completed Melissa Seol d - External Influenza Nasal, Unspecified Formulation Unknown [facility] Influenza, Seasonal, Injectable, Preservative Free Unknown Completed [facility] bold - External Covid-19 Vaccine Moderna (Spikevax), Mrna-lnp, Isaiah Protein, Pf Unknown Completed [facility] - External COVID-19 VACCINE MODERNA 6MONTHS-5YEARS Unknown Completed Melissa Seol d - External Influenza Nasal, Unspecified Formulation Unknown Completed Melissa Seold - External Influenza, Seasonal, Injectable, Preservative Free Unknown Completed [facility] bold - External Covid-19 Vaccine Moderna (Spikevax), Mrna-lnp, Isaiah Protein, Pf [facility] VACC[facility] MODERNA 6MONTHS-5YEARS [facility] Nasal, Unspecified Formulation Unknown Completed Melissa Seold - External Influenza, Seasonal, Injectable, Preservative Free Unknown Completed [facility] - External Covid-19 Vaccine Moderna (Spikevax), Mrna-lnp, Isaiah Protein, Pf Unknown Completed [facility] - External COVID-19 VACCINE MODERNA 6MONTHS-5YEARS Unknown Completed Melissa Seol d - External Influenza Nasal, Unspecified Formulation Unknown [facility], Seasonal, Injectable, Preservative Free Unknown Completed [facility] - External COVID-19 VACCINE MODERNA 6MONTHS-5YEARS Unknown [facility] Influ[facility] Nasal, Unspecified Formulation Unknown Completed [facility] - External Covid-19 Vaccine Moderna (Spikevax), Mrna-lnp, Isaiah Protein, Pf Unknown Completed [facility] - External Influenza, Seasonal, Injectable, Preservative Free Unknown Completed [facility] - External Covid-19 Vaccine Moderna (Spikevax), Mrna-lnp, Isaiah Protein, Pf Unknown Completed [facility] - External COVID-19 VACCINE MODERNA 6MONTHS-5YEARS Unknown [facility] Nasal, Unspecified Formulation Unknown Completed Melissa Seold - External Influenza, Seasonal, Injectable, Preservative Free Unknown Completed [facility] - External Covid-19 Vaccine Moderna (Spikevax), Mrna-lnp, Isaiah Protein, Pf Unknown Completed Melissa Seold - External COVID-19 VACCINE MODERNA 6MONTHS-5YEARS Unknown Completed Melissa Seol d - External Influenza Nasal, Unspecified Formulation Unknown Completed Melissa Seold - External Influenza, Seasonal, Injectable, Preservative Free Unknown Completed [facility] - External Covid-19 Vaccine Moderna (Spikevax), Mrna-lnp, Isaiah Protein, Pf Unknown Completed Melissa Grant - External COVID-19 VACCINE MODERNA 6MONTHS-5YEARS Unknown Completed Melissa Barronol d - External Influenza Nasal, Unspecified Formulation Unknown Completed Melissa Grant - External Influenza, Seasonal, Injectable, Preservative Free Unknown Completed Melissa dunaway - External Covid-19 Vaccine Moderna (Spikevax), Mrna-lnp, Isaiah Protein, Pf Unknown Completed Melissa Grant - External COVID-19 VACCINE MODERNA 6MONTHS-5YEARS Unknown Completed Melissa Barronol d - External Influenza Nasal, Unspecified Formulation Unknown Completed Melissa Grant - External Influenza, Seasonal, Injectable, Preservative Free Unknown Completed Melissa dunaway - External COVID-19, mRNA, LNP-S, PF, pediatric 25 mcg/0.25 mL dose (Moderna) COVID-19, mRNA, LNP-S, PF, pediatric 25 mcg/0.25 mL dose (Moderna) Unknown Completed [facility] - unspecified influenza nasal, unspecified formulation influenza nasal, unspecified formulation Unknown Completed [facility] - unspecified Vital Signs Vital Name Observation Time Observation Value Comments S ource Systolic blood pressure 2024-01-05 17:34:00 136 mm[Hg] Melissa Barrono ld - External Diastolic blood pressure 2024-01-05 17:34:00 80 mm[Hg] Melissa Barrono ld - External Heart rate 2024-01-05 17:26:00 76 /min Yulia Grant - External Body temperature 2024-01-05 17:26:00 36.56 Nannette Melissa Grant - External Respiratory rate 2024-01-05 17:26:00 18 /min Melissa Grant - External Body height 2024-01-05 17:26:00 149.9 cm Trisha martin Seybold - External Body weight 2024-01-05 17:26:00 66.679 kg Trisha martin Seybold - External BMI 2024-01-05 17:26:00 29.69 kg/m2 Trisha martin Seybold - External Systolic blood pressure 2023-12-08 19:38:00 143 mm[Hg] Melissa Barrono ld - External Diastolic blood pressure 2023-12-08 19:38:00 85 mm[Hg] Melissa Dwyer ld - External Heart rate 2023-12-08 19:38:00 72 /min Dominikse y Seybold - External Respiratory rate 2023-12-08 19:38:00 16 /min Melissa Grant - External Body height 2023-12-08 19:38:00 149.9 cm Trisha ey Seybold - External Body weight 2023-12-08 19:38:00 73.483 kg Trisha ey Seybold - External BMI 2023-12-08 19:38:00 32.72 kg/m2 Trisha ey Seybold - External Oxygen saturation in Arterial blood by Pulse oximetry 2023-12-08 19:38:00 99 /min Melissa Dwyer ld - External BMI (Body Mass Index) 2023-11-08 00:00:00 30.1 kg/m2 Pan[facility] - unspecified BP Diastolic 2023-11-08 00:00:00 83 mm[Hg] Cheney oramic - unspecified BP Systolic 2023-11-08 00:00:00 121 mm[Hg] Pano ramic - unspecified Body Weight 2023-11-08 00:00:00 149.2 [lb_av] P anoramic - unspecified Height 2023-11-08 00:00:00 59 [in_i] Panor amic - unspecified Systolic blood pressure 2023-10-01 14:50:00 143 mm[Hg] Melissa Barrono ld - External Diastolic blood pressure 2023-10-01 14:50:00 80 mm[Hg] Melissa Barrono ld - External Heart rate 2023-10-01 14:50:00 78 /min Yulia cleveland Seybold - External Body temperature 2023-10-01 14:50:00 36.56 Nannette Melissa Quigleyybold - External Respiratory rate 2023-10-01 14:50:00 16 /min Melissa Quigleyybold - External Body height 2023-10-01 14:50:00 149.9 cm Trisha ey Seybold - External Body weight 2023-10-01 14:50:00 71.215 kg Trisha ey Seybold - External BMI 2023-10-01 14:50:00 31.71 kg/m2 Trisha ey Seybold - External Oxygen saturation in Arterial blood by Pulse oximetry 2023-10-01 14:50:00 100 /min Melissa Seybo ld - External Systolic blood pressure 2023-08-10 14:28:00 119 mm[Hg] Melissa Seybo ld - External Diastolic blood pressure 2023-08-10 14:28:00 84 mm[Hg] Melissa Seybo ld - External Body temperature 2023-08-10 14:28:00 36.5 Nannette Melissa Seybold - External Respiratory rate 2023-08-10 14:28:00 16 /min Melissa Seybold - External Body height 2023-08-10 14:28:00 149.9 cm Trisha ey Seybold - External Body weight 2023-08-10 14:28:00 70.308 kg Trisha ey Seybold - External BMI 2023-08-10 14:28:00 31.31 kg/m2 Trisha ey Seybold - External Oxygen saturation in Arterial blood by Pulse oximetry 2023-08-10 14:28:00 97 /min Melissa Seybo ld - External Systolic blood pressure 2023-06-01 17:29:00 136 mm[Hg] Melissa Seybo ld - External Diastolic blood pressure 2023-06-01 17:29:00 70 mm[Hg] Melissa Seybo ld - External Heart rate 2023-06-01 17:04:00 84 /min Yulia cleveland Seybold - External Body temperature 2023-06-01 17:04:00 36.94 Nannette Melissa Seybold - External Respiratory rate 2023-06-01 17:04:00 15 /min Melissa Seybold - External Body height 2023-06-01 17:04:00 149.9 cm Trisha ey Seybold - External Body weight 2023-06-01 17:04:00 70.308 kg Trisha ey Seybold - External BMI 2023-06-01 17:04:00 31.31 kg/m2 Trisha ey Seybold - External Oxygen saturation in Arterial blood by Pulse oximetry 2023-06-01 17:04:00 100 /min Melissa Seybo ld - External Systolic blood pressure 2023-05-27 14:14:00 149 mm[Hg] Melissa Seybo ld - External Diastolic blood pressure 2023-05-27 14:14:00 88 mm[Hg] Melissa Seybo ld - External Heart rate 2023-05-27 14:10:00 79 /min Kelse y Seybold - External Body temperature 2023-05-27 14:10:00 36.89 Nannette Melissa Seybold - External Respiratory rate 2023-05-27 14:10:00 16 /min Melissa Seybold - External Body height 2023-05-27 14:10:00 149.9 cm Trisha ey Seybold - External Body weight 2023-05-27 14:10:00 70.398 kg Trisha ey Seybold - External BMI 2023-05-27 14:10:00 31.35 kg/m2 Trisha ey Seybold - External Oxygen saturation in Arterial blood by Pulse oximetry 2023-05-27 14:10:00 98 /min Melissa Quigleyybo ld - External Systolic blood pressure 2023-05-21 14:14:00 162 mm[Hg] Melissa Seybo ld - External Diastolic blood pressure 2023-05-21 14:14:00 92 mm[Hg] Melissa Seybo ld - External Heart rate 2023-05-21 14:14:00 85 /min Kelse y Seybold - External Body temperature 2023-05-21 14:14:00 36.78 Nannette Meilssa Seybold - External Respiratory rate 2023-05-21 14:14:00 18 /min Melissa Seybold - External Body height 2023-05-21 14:14:00 149.9 cm Trisha ey Seybold - External Body weight 2023-05-21 14:14:00 66.316 kg Trisha ey Seybold - External BMI 2023-05-21 14:14:00 29.53 kg/m2 Trisha ey Seybold - External Systolic blood pressure 2023-04-16 16:32:00 135 mm[Hg] Melissa Seybo ld - External Diastolic blood pressure 2023-04-16 16:32:00 83 mm[Hg] Melissa Seybo ld - External Heart rate 2023-04-16 16:32:00 75 /min Kelse y Seybold - External Body temperature 2023-04-16 16:32:00 36.56 Nannette Melissa Seybold - External Respiratory rate 2023-04-16 16:32:00 18 /min Melissa Seybold - External Body height 2023-04-16 16:32:00 149.9 cm Trisha ey Seybold - External Body weight 2023-04-16 16:32:00 66.316 kg Trisha ey Seybold - External BMI 2023-04-16 16:32:00 29.53 kg/m2 Trisha ey Seybold - External Systolic blood pressure 2023-04-08 20:12:00 134 mm[Hg] Melissa Seybo ld - External Diastolic blood pressure 2023-04-08 20:12:00 80 mm[Hg] Melissa Seybo ld - External Heart rate 2023-04-08 20:12:00 74 /min Kelse y Seybold - External Body temperature 2023-04-08 20:12:00 36.83 Nannette Melissa Seybold - External Respiratory rate 2023-04-08 20:12:00 15 /min Melissa Seybold - External Body height 2023-04-08 20:12:00 149.9 cm Trisha ey Seybold - External Body weight 2023-04-08 20:12:00 66.225 kg Trisha ey Seybold - External BMI 2023-04-08 20:12:00 29.49 kg/m2 Trisha ey Seybold - External Oxygen saturation in Arterial blood by Pulse oximetry 2023-04-08 20:12:00 100 /min Melissa Seybo ld - External Systolic blood pressure 2023-03-17 21:59:00 143 mm[Hg] Melissa Seybo ld - External Diastolic blood pressure 2023-03-17 21:59:00 83 mm[Hg] Melissa Seybo ld - External Heart rate 2023-03-17 21:59:00 76 /min Kelse y Seybold - External Body temperature 2023-03-17 21:59:00 36.61 Nannette Melissa Seybold - External Respiratory rate 2023-03-17 21:59:00 16 /min Melissa Seybold - External Body height 2023-03-17 21:59:00 149.9 cm Trisha ey Seybold - External Body weight 2023-03-17 21:59:00 68.947 kg Trisha ey Seybold - External BMI 2023-03-17 21:59:00 30.70 kg/m2 Trisha ey Seybold - External Oxygen saturation in Arterial blood by Pulse oximetry 2023-03-17 21:59:00 100 /min Melissa Barrono ld - External Systolic blood pressure 2023-02-24 07:15:00 156 mm[Hg] [facility] Diastolic blood pressure 2023-02-24 07:15:00 88 mm[Hg] [facility] Heart rate 2023-02-24 07:15:00 97 /min [facility] Body temperature 2023-02-24 07:15:00 36.78 Nannette [facility] Respiratory rate 2023-02-24 07:15:00 13 /min [facility] Oxygen saturation in Arterial blood by Pulse oximetry 2023-02-24 07:15:00 96 /min [facility] Body height 2023-02-24 03:40:00 149.9 cm [facility] Body weight 2023-02-24 03:40:00 65.772 kg [facility] BMI 2023-02-24 03:40:00 29.29 kg/m2 [facility] Systolic blood pressure 2023-02-16 19:13:00 130 mm[Hg] Melissa Quigleyybo ld - External Diastolic blood pressure 2023-02-16 19:13:00 70 mm[Hg] Melissa Quigleyybo ld - External Heart rate 2023-02-16 19:13:00 [...] blood pressure 2022-05-26 18:52:00 147 mm[Hg] Melissa Barrono ld - External Diastolic blood pressure 2022-05-26 18:52:00 92 mm[Hg] Melissa Quigleyybo ld - External Heart rate 2022-05-26 18:52:00 73 /min Kelse y Seybold - External Respiratory rate 2022-05-26 [...] Pulse oximetry 2022-05-26 15:16:00 99 /min Melissa Barrono ld - External Body height 2022-05-11 19:20:00 149.9 cm Trisha ey Seybold - External Body weight 2022-05-11 19:20:00 63.504 kg Trisha ey Seybold - External BMI 2022-05-11 19:20:00 28.28 kg/m2 Trisha ey Seybold - External Systolic blood pressure 2022-05-08 14:47:00 142 mm[Hg] Melissa Quigleyybo ld - External Diastolic blood pressure 2022-05-08 14:47:00 73 mm[Hg] Melissa Quigleyybo ld - External Heart rate 2022-05-08 14:47:00 [...] External Heart rate 2022-05-01 18:25:00 72 /min Dominikse y Seybold - External Body temperature 2022-05-01 [...] Respiratory rate 2022-04-03 21:11:00 14 /min Melissa Grant - External Body height 2022-04-03 21:11:00 149.9 cm Trisha martin Seybold - External Body weight 2022-04-03 21:11:00 66.225 kg Trisha ey Seybold - External BMI 2022-04-03 21:11:00 29.49 kg/m2 Trisha martin Seybold - External Oxygen saturation in Arterial blood by Pulse oximetry 2022-04-03 21:11:00 99 /min Melissa Barrono ld - External Systolic blood pressure 2021-09-30 20:09:00 144 mm[Hg] [facility] Diastolic blood pressure 2021-09-30 20:09:00 88 mm[Hg] [facility] Heart rate 2021-09-30 20:08:00 88 /min [facility] Body temperature 2021-09-30 20:08:00 35.94 Nannette [facility] Respiratory rate 2021-09-30 20:08:00 16 /min [facility] Body height 2021-09-30 20:08:00 149.9 cm [facility] Body weight 2021-09-30 20:08:00 64.501 kg [facility] BMI 2021-09-30 20:08:00 28.72 kg/m2 [facility] BP Systolic 2022-02-05 11:42:00 160 mm[Hg] [...] Procedure Date / Time Performed Performing Clinician Source URINALYSIS 2023-02-24 04:28:00 Keaton Patiño [facility] POCT TEST 2023-02-24 04:26:00 Keaton Patiño [facility] LIPASE 2023-02-24 04:10:00 Keaton Patiño [facility] COMP. METABOLIC PANEL (64247) 2023-02-24 04:10:00 Keaton Patiño [facility] CBC WITH DIFF 2023-02-24 04:10:00 Keaton Patiño [facility] CONSENT/REFUSAL FOR DIAGNOSIS AND TREATMENT 2023-02-24 03:30:37 Doctor Unassigned, [place] [facility] ECG- ADULT 2022-11-11 16:50:07 Adriano Agee - External POCT HEMOGLOBIN A1C TEST 2021-09-30 21:21:00 Andrew Verduzco [facility] Extraction of Veteran Tooth Panoramic - unspecified Ligation of Fallopian Tube [facility] - unspecified Plan of Care Planned Activity Planned Date Details Comments Source Goal Plan of Care Note [code = 14584-6] Goal Plan of Care Note [code = 99167-7] Goal Plan of Care Note [code = 97253-4] Goal Plan of Care Note [code = 13296-2] Goal Plan of Care Note [code = 61896-9] Goal Plan of Care Note [code = 76840-6] Goal Plan of Care Note [code = 63016-6] Goal Plan of Care Note [code = 53516-9] Goal Plan of Care Note [code = 21469-1] Goal Plan of Care Note [code = 62457-5] Goal Plan of Care Note [code = 16372-9] Goal Plan of Care Note [code = 71423-5] Goal Plan of Care Note [code = 83416-5] Goal Plan of Care Note [code = 63281-9] Goal Plan of Care Note [code = 95485-2] Goal Plan of Care Note [code = 97127-6] Goal Plan of Care Note [code = 31989-2] Goal Plan of Care Note [code = 26447-1] Goal Plan of Care Note [code = 94811-8] Goal Plan of Care Note [code = 83213-5] Goal Plan of Care Note [code = 35898-6] Goal Plan of Care Note [code = 97435-8] Goal Plan of Care Note [code = 05707-4] Goal Plan of Care Note [code = 58801-5] Goal Plan of Care Note [code = 56322-6] Goal Plan of Care Note [code = 81188-5] Goal Plan of Care Note [code = 96231-2] Goal Plan of Care Note [code = 14975-2] Goal Plan of Care Note [code = 05333-1] Goal Plan of Care Note [code = 31447-8] Goal Plan of Care Note [code = 26033-1] Goal Plan of Care Note [code = 66255-2] Goal Plan of Care Note [code = 72494-3] Goal Plan of Care Note [code = 09289-7] Goal Plan of Care Note [code = 33456-9] Goal Plan of Care Note [code = 87487-3] Goal Plan of Care Note [code = 40577-8] Goal Plan of Care Note [code = 74387-7] Goal Plan of Care Note [code = 43254-5] Goal Plan of Care Note [code = 30767-0] Goal Plan of Care Note [code = 27245-6] Goal Plan of Care Note [code = 03073-7] Goal Plan of Care Note [code = 32143-4] Goal Plan of Care Note [code = 44005-7] Goal Plan of Care Note [code = 13963-3] Goal Plan of Care Note [code = 78670-3] Goal Plan of Care Note [code = 09548-0] Goal Plan of Care Note [code = 49701-6] Goal Plan of Care Note [code = 84166-2] Goal Plan of Care Note [code = 35483-0] Goal Plan of Care Note [code = 26024-6] Goal Plan of Care Note [code = 76539-0] Goal Plan of Care Note [code = 10050-9] Encounters Start Date/Time End Date/Time Encounter Type Admission Type Attending [facility] Facility Care Department Encounter ID Source 2020-12-08 09:56:25 Emergency [facility] [id number] [facility] 2024-04-25 14:20:00 2024-04-25 14:20:00 Outpatient MATEO ANTHONY [id number] [facility] 2024-04-19 10:40:00 2024-04-19 10:40:00 Outpatient IVIS HOOVER [id number] [facility] 2024-02-21 09:30:00 2024-02-21 09:30:00 Outpatient GIDEON RODRIGUEZ [id number] Melissa [facility] 2024-02-01 11:45:00 2024-02-01 11:45:00 Outpatient ADRIANO AGEE [id number] Melissa [facility] 2024-02-01 00:00:00 2024-02-01 00:00:00 Outpatient ADRIANO AGEE [id number] Melissa [facility] 2024-01-28 12:00:00 2024-01-28 12:00:00 Outpatient LAB90 MELISSA RAJPUT [id number] Melissa [facility] 2024-01-28 11:30:00 2024-01-28 11:30:00 Outpatient OLIVIA WHITEHEAD [id number] [facility] 2024-01-26 11:45:00 2024-01-26 11:45:00 Outpatient CHARLEY, OLIVIA RAJPUT MELISSA [id number] Melissa [facility] 2024-01-20 12:45:00 2024-01-20 12:45:00 Outpatient MELISSA MELISSA [id number] [facility] 2024-01-19 11:30:00 2024-01-19 11:30:00 Outpatient CHARLEY, OLIVIA RAJPUT MELISSA [id number] [facility] 2024-01-19 00:00:00 2024-01-19 00:00:00 Outpatient ADILSONMOGEREMIAS Lewis MELISSA MELISSA [id number] [facility] 2024-01-19 00:00:00 2024-01-19 00:00:00 Outpatient PREZAS, ADRIANO RAJPUT MELISSA [id number] [facility] 2024-01-18 00:00:00 2024-01-18 00:00:00 Outpatient ALJAYMOGERMEIAS Leiws MELISSA MELISSA [id number] [facility] 2024 00:00:00 2024 00:00:00 Outpatient PREZAS, ADRIANO RAJPUT MELISSA [id number] [facility] 2024-01-12 11:30:00 2024-01-12 11:30:00 Outpatient CHARLEY, OLIVIA RAJPUT MELISSA [id number] [facility] 2024-01-05 13:00:00 2024-01-05 13:00:00 Outpatient LAB MELISSA RAJPUT [id number] Melissa Seybold 2024-01-05 11:30:00 2024-01-05 11:30:00 Outpatient PREZAS, ADRIANO MCWILLIAMSTAPAN RAJPUT [id number] Melissa Seybmayra 2023-12-29 08:30:00 2023-12-29 08:30:00 Outpatient CHARLEY, OLIVIA MELISSA RAJPUT [id number] Melissa [facility] 2023-12-28 00:00:00 2023-12-28 00:00:00 Outpatient PREZAS, ADRIANO MELISSA RAJPUT [id number] Melissa [facility] 2023-12-22 08:30:00 2023-12-22 08:30:00 Outpatient CHARLEY, OLIVIA RAJPUT MELISSA [id number] [facility] 2023-12-22 00:00:00 2023-12-22 00:00:00 Outpatient PREZAS, ADRIANO RAJPUT MELISSA [id number] [facility] 2023-12-15 08:30:00 2023-12-15 08:30:00 Outpatient CHARLEY, OLIVIA RAJPUT MELISSA [id number] [facility] 2023-12-15 00:00:00 2023-12-15 00:00:00 Outpatient PREZAS, ADRIANO RAJPUT MELISSA [id number] [facility] 2023-12-14 00:00:00 2023-12-14 00:00:00 Outpatient PREZAS, ADRIANO MELISSA RAJPUT [id number] [facility] 2023-12-09 00:00:00 2023-12-09 00:00:00 Outpatient PREZAS, ADRIANO MELISSA RAJPUT [id number] [facility] 2023-12-08 14:45:00 2023-12-08 14:45:00 Outpatient PREZAS, ADRIANO RAJPUT MELISSA [id number] [facility] 2023-12-08 00:00:00 2023-12-08 00:00:00 Outpatient MELISSA RAJPUT [id number] [facility] 2023-11-23 00:00:00 2023-11-23 00:00:00 Outpatient PREZAS, ADRIANO MELISSA RAJPUT [id number] [facility] 2023-11-19 00:00:00 2023-11-19 00:00:00 Outpatient PREZAS, ADRIANO MELISSA RAJPUT [id number] [facility] 2023-11-18 00:00:00 2023-11-18 00:00:00 Outpatient PREZAS, ADRIANO MELISSA RAJPUT [id number] [facility] 2023-11-17 10:00:00 2023-11-17 10:00:00 Outpatient PREZAS, ADRIANO MELISSA RAJPUT [id number] [facility] 2023-11-16 00:00:00 2023-11-16 00:00:00 Outpatient PREZAS, ADRIANO MELISSA MCWILLIAMSSEY [id number] Melissa [facility] 2023-11-16 00:00:00 2023-11-16 00:00:00 Outpatient CARISSA DELEON MELISSA RAJPUT [id number] [facility] 2023-11-15 13:00:00 2023-11-15 13:00:00 Outpatient OLIVIA WHITEHEAD MELISSA RAJPUT [id number] [facility] 2023-11-15 09:15:00 2023-11-15 09:15:00 Outpatient CHATO Garcia MELISSA MELISSA [id number] [facility] 2023-11-15 08:50:00 2023-11-15 08:50:00 Outpatient SINDYGIDEON MELISSA RAJPUT [id number] [facility] 2023-11-15 00:00:00 2023-11-15 00:00:00 Outpatient PRINCE CHEEK [id number] [facility] 2023-11-15 00:00:00 2023-11-15 00:00:00 Outpatient MARTYADRIANO MELISSA RAJPUT [id number] [facility] 2023-11-08 00:00:00 2023-11-08 00:00:00 Outpatient MARTY ADRIANO MELISSA RAJPUT [id number] [facility] 2023-11-08 00:00:00 2023-11-08 00:00:00 Prince Cheek MD: [id number] [facility] [address], [place] [address] , Ph. [facility] [id number] [facility] ic - unspeci fied 2023-11-05 09:10:00 2023-11-05 09:10:00 Outpatient LAB90 MELISSA RAJPUT [id number] [facility] 2023-11-05 00:00:00 2023-11-05 00:00:00 Outpatient ADRIANO AGEE [id number] [facility] 2023-11-04 00:00:00 2023-11-04 00:00:00 Outpatient ADRIANO AGEE MELISSA RAJPUT [id number] [facility] 2023-11-01 09:30:00 2023-11-01 09:30:00 Outpatient DEANNE KAUR MELISSA RAJPUT [id number] [facility] 2023-10-28 00:00:00 2023-10-28 00:00:00 Outpatient NIRALI FLORES MELISSA RAJPUT [id number] [facility] 2023-10-27 16:00:00 2023-10-27 16:00:00 Outpatient MELISSA RAJPUT [id number] [facility] 2023-10-27 00:00:00 2023-10-27 00:00:00 Outpatient ADRIANO AGEE MELISSA RAJPUT [id number] [facility] 2023-10-26 11:20:00 2023-10-26 11:20:00 Outpatient [facility]ATEO ANTHONY [id number] [facility] 2023-10-26 10:15:00 2023-10-26 10:15:00 Outpatient [id number] MELISSA RAJPUT [id number] [facility] 2023-10-26 09:00:00 2023-10-26 09:00:00 Outpatient MELISSA RAJPUT [id number] [facility] 2023-10-21 11:20:00 2023-10-21 11:20:00 Outpatient MELISSA RJAPUT [id number] [facility] 2023-10-15 08:00:00 2023-10-15 08:00:00 Outpatient KESHAWN SCHNEIDER [id number] [facility] 2023-10-14 16:20:00 2023-10-14 16:20:00 Outpatient MATEO ANTHONY [id number] [facility] 2023-10-14 14:30:00 2023-10-14 14:30:00 Outpatient MELISSA RAJPUT [id number] [facility] 2023-10-06 09:00:00 2023-10-06 09:00:00 Outpatient GIDEON RODRIGUEZ [id number] [facility] 2023-10-06 00:00:00 2023-10-06 00:00:00 Outpatient ADRIANO AGEE MELISSA RAJPUT [id number] [facility] 2023-10-05 07:45:00 2023-10-05 07:45:00 Outpatient SHAANTGIDEON LANDRY MELISSA RAJPUT [id number] [facility] 2023-10-01 10:50:00 2023-10-01 10:50:00 Outpatient LAB90 MELISSA RAJPUT [id number] [facility] 2023-10-01 10:00:00 2023-10-01 10:00:00 Outpatient ADRIANO AGEE MELISSA RAJPUT [id number] [facility] 2023-09-28 00:00:00 2023-09-28 00:00:00 Outpatient MELISSA RAJPUT [id number] [facility] 2023-09-27 09:40:00 2023-09-27 09:40:00 Outpatient SHAANTGIDEON LANDRY MELISSA RAJPUT [id number] [facility] [facility] 2023-09-27 09:40:00 2023-09-27 09:40:00 Outpatient 1, OPTICAL MELISSA RAJPUT [id number] [facility] 2023-09-27 00:00:00 2023-09-27 00:00:00 Outpatient GIDEON RODRIGUEZ MELISSA RAJPUT [id number] [facility] 2023-09-23 00:00:00 2023-09-23 00:00:00 Outpatient MATT FLORESED MELISSA RAJPUT [id number] Melissa Seybold 2023-09-22 00:00:00 2023-09-22 00:00:00 Outpatient MELISSA RAJPUT [id number] Melissa Seybold 2023-09-22 00:00:00 2023-09-22 00:00:00 Outpatient DEANNE KAUR [id number] Melissa Seybold 2023-09-21 00:00:00 2023-09-21 00:00:00 Outpatient DEANNE KAUR [id number] Melissa Seybold 2023-09-20 10:40:00 2023-09-20 10:40:00 Outpatient LAB90 MELISSA MELISSA [id number] [facility] 2023-09-14 00:00:00 2023-09-14 00:00:00 Outpatient PREZAS, ADRIANO RAJPUT MELISSA [id number] [facility] 2023-09-13 00:00:00 2023-09-13 00:00:00 Outpatient PREZAS, ADRIANO RAJPUT MELISSA [id number] Melissa [facility] 2023-09-10 00:00:00 2023-09-10 00:00:00 Outpatient PREZAS, ADRIANO RAJPUT MELISSA [id number] [facility] 2023-09-10 00:00:00 2023-09-10 00:00:00 Outpatient PREZAS, ADRIANO MELISSA RAJPUT [id number] Melissa [facility] 2023-08-26 14:15:00 2023-08-26 14:15:00 Outpatient PREZAS, ADRIANO MELISSA RAJPUT [id number] [facility] 2023-08-10 09:45:00 2023-08-10 09:45:00 Outpatient PREZAS, ADRIANO MELISSA RAJPUT [id number] Melissa [facility] 2023-07-28 14:50:00 2023-07-28 14:50:00 Outpatient UDOETGIDEON LANDRY [id number] [facility] 2023-07-28 14:45:00 2023-07-28 14:45:00 Outpatient 1, OPTICAL MELISSA RAJPUT [id number] [facility] 2023-07-19 13:00:00 2023-07-19 13:00:00 Outpatient UDOETGIDEON LANDRY [id number] Melissa [facility] 2023-06-21 11:30:00 2023-06-21 11:30:00 Outpatient PREZAS, ADRIANO MELISSA RAJPUT [id number] Melissa [facility] 2023-06-01 11:45:00 2023-06-01 11:45:00 Outpatient PREZAS, ADRIANO MELISSA RAJPUT [id number] [facility] 2023-05-28 00:00:00 2023-05-28 00:00:00 Outpatient PREZAS, ADRIANO MELISSA RAJPUT [id number] Melissa [facility] 2023-05-27 08:30:00 2023-05-27 08:30:00 Outpatient KAURDEANNE MELISSA RAJPUT [id number] Melissa [facility] 2023-05-24 08:40:00 2023-05-24 08:40:00 Outpatient LAB90 MELISSA RAJPUT [id number] Melissa Grant 2023-05-24 00:00:00 2023-05-24 00:00:00 Outpatient PREZAMal, ADRIANO MELISSA RAJPUT [id number] Melissa [facility] 2023-05-21 09:55:00 2023-05-21 09:55:00 Outpatient LAB47 MELISSA RAJPUT [id number] Melissa [facility]igle[facility]ayra 2023-05-21 09:20:00 2023-05-21 09:20:00 Outpatient ROBERT, KESHAWN MELISSA RAJPUT [id number] Melissa [facility] 2023-05-14 00:00:00 2023-05-14 00:00:00 Outpatient HAM, PRICNE MELISSA RAJPUT [id number] Melissa [facility] 2023-05-12 09:30:00 2023-05-12 09:30:00 Outpatient LAB90 MELISSA RAJPUT [id number] [facility] 2023-05-11 12:20:00 2023-05-11 12:20:00 Outpatient LAB90 MELISSA RAJPUT [id number] Melissa [facility] 2023-04-16 10:20:00 2023-04-16 10:20:00 Outpatient ROBERT, KESHAWN MELISSA RAJPUT [id number] [facility] 2023-04-13 09:40:00 2023-04-13 09:40:00 Outpatient TOMOGRAPHY, BAYCP MELISSA RAJPUT [id number] [facility] 2023-04-13 09:40:00 2023-04-13 09:40:00 Outpatient NOCK, MATEO RAJPUT [id number] [facility] 2023-04-08 14:00:00 2023-04-08 14:00:00 Outpatient PREZAS, ADRIANO MELISSA RAJPUT [id number] [facility] 2023-04-06 13:20:00 2023-04-06 13:20:00 Outpatient KESHAWN JONES MELISSA RAJPUT [id number] Melissa [facility] 2023-04-01 00:00:00 2023-04-01 00:00:00 Outpatient PREZAS ADRIANO RAJPUT [id number] Melissa [facility] 2023-03-17 16:20:00 2023-03-17 16:20:00 Outpatient SYDNIADDISAB IVIS RAJPUT [id number] Melissa [facility] 2023-03-17 16:00:00 2023-03-17 16:00:00 Outpatient PREZAS ADRIANO RAJPUT [id number] Melissa [facility] 2023-03-17 14:45:00 2023-03-17 14:45:00 Outpatient KEMAR RODRIGUEZ [id number] Melissa Semayra 2023-03-16 10:00:00 2023-03-16 10:00:00 Outpatient ESTHER PURCELL [id number] Melissa [facility] 2023-03-15 08:40:00 2023-03-15 08:40:00 Outpatient KIKO IVIS RAJPUT [id number] Melissa [facility] 2023-03-12 13:30:00 2023-03-12 13:30:00 Outpatient PREZAS ADRIANO RAJPUT [id number] Melissa [facility] 2023-03-02 12:20:00 2023-03-02 12:20:00 Outpatient KEMAR RODRIGUEZ [id number] [facility] 2023-03-02 12:00:00 2023-03-02 12:00:00 Outpatient PURCELLESTHER RAMOS [id number] Melissa Seybmayra 2023-03-01 00:00:00 2023-03-01 00:00:00 Outpatient PREZAMal ADRIANO RAJPUT [id number] Melissa [facility] 2023-02-23 21:41:00 2023-02-24 01:28:00 Emergency X KEATON PATIÑO [facility] [id number] [facility] 2023-02-23 21:41:00 2023-02-24 01:28:00 Emergency Keaton Patiño [facility] [id number] [facility] 2023-02-24 00:00:00 2023-02-24 00:00:00 Outpatient PATRICK HOOVERRAMIREZ MELISSA RAJPUT [id number] [facility] 2023-02-23 00:00:00 2023-02-23 00:00:00 Outpatient ESTHER PURCELL [id number] [facility] 2023-02-23 00:00:00 2023-02-23 00:00:00 Outpatient ADRIANO AGEE [id number] Melissa ybmayra 2023-02-23 00:00:00 2023-02-23 00:00:00 Outpatient ADRIANO AGEE [id number] [facility] 2023-02-22 00:00:00 2023-02-22 00:00:00 Outpatient ESTHER PURCELL [id number] Melissa Seybmayra 2023-02-22 00:00:00 2023-02-22 00:00:00 Outpatient MD MELISSA NOBLE [id number] Melissa Seybold 2023-02-22 00:00:00 2023-02-22 00:00:00 Outpatient TANGELA HERNANDEZ [id number] [facility] 2023-02-22 00:00:00 2023-02-22 00:00:00 Outpatient ONLY, NEGAR RAJPUT [id number] Melissa Seybmayra 2023-02-18 00:00:00 2023-02-18 00:00:00 Outpatient ADRIANO AGEE [id number] Melissa Seybmayra 2023-02-16 14:05:00 2023-02-16 14:05:00 Outpatient LAB MELISSA RAJPUT [id number] Melissa Seybmayra 2023-02-16 11:40:00 2023-02-16 11:40:00 Outpatient HERNANDEZTANGELA RODRIGUEZ MELISSA RAJPUT [id number] [facility] 2023-02-16 11:00:00 2023-02-16 11:00:00 Outpatient ESTHER PURCELL MELISSA RAJPUT [id number] Melissa Seybold 2023-02-16 00:00:00 2023-02-16 00:00:00 Outpatient \\R\\RSOH_[place] PANRSOH PANRSOH [id number] PANRSOH 2023-02-16 00:00:00 2023-02-16 00:00:00 Outpatient MD MELISSA NOBLE [id number] [facility] 2023-02-15 00:00:00 2023-02-15 00:00:00 Outpatient MD MELISSA NOBLE [id number] [facility] 2023-02-10 15:00:00 2023-02-10 15:00:00 Outpatient HERNANDEZTANGELA RODRIGUEZ MELISSA RAJPUT [id number] [facility] 2023-02-09 00:00:00 2023-02-09 00:00:00 Outpatient MELISSA RAJPUT [id number] [facility] 2023-02-03 14:30:00 2023-02-03 14:30:00 Outpatient LIZETH FLORES [id number] Melissa Seybold 2023-02-03 13:45:00 2023-02-03 13:45:00 Outpatient KEMAR RODRIGUEZ [id number] Melissa Seybold 2023-01-21 14:45:00 2023-01-21 14:45:00 Outpatient LIZETH FLORES [id number] Melissa Seybold 2023-01-21 00:00:00 2023-01-21 00:00:00 Outpatient MELISSA RAJPUT [id number] Melissa Seybold 2023-01-21 00:00:00 2023-01-21 00:00:00 Outpatient KEMAR RODRIGUEZ [id number] Melissa Seybold 2023-01-20 11:45:00 2023-01-20 11:45:00 Outpatient KEMAR RODRIGUEZ MELISSA RAJPUT [id number] Melissa Seybold 2023-01-13 08:45:00 2023-01-13 08:45:00 Outpatient CHATO Garcia MELISSA RAJPUT [id number] Melissa Seybold 2023-01-13 08:20:00 2023-01-13 08:20:00 Outpatient LAIEDGAR LANDRYSHUA MELISSA RAJPUT [id number] [facility] 2023-01-08 00:00:00 2023-01-08 00:00:00 Outpatient PREZAMalADRIANO MELISSA RAJPUT [id number] Melissa Seybold 2023-01-07 14:05:00 2023-01-07 14:05:00 Outpatient MELISSA RAJPUT [id number] [facility] 2023-01-07 14:00:00 2023-01-07 14:00:00 Outpatient MELISSA RAJPUT [id number] [facility] 2023-01-06 15:10:00 2023-01-06 15:10:00 Outpatient SHAANChitraGIDEON LANDRY MELISSA RAJPUT [id number] [facility] 2022-12-29 15:00:00 2022-12-29 15:00:00 Outpatient ERIC DURBIN MELISSA RAJPUT [id number] [facility] 2022-12-29 00:00:00 2022-12-29 00:00:00 Outpatient PREZAS, ADRIANO MELISSA RAJPUT [id number] [facility] 2022-12-28 00:00:00 2022-12-28 00:00:00 Outpatient MD MELISSA NOBLE [id number] Melissa Seybold 2022-12-25 00:00:00 2022-12-25 00:00:00 Outpatient SEBASTIAN CHUNG [id number] Melissa Seybold 2022-12-21 00:00:00 2022-12-21 00:00:00 Outpatient ANDREI MAR [id number] Melissa Seybold 2022-12-21 00:00:00 2022-12-21 00:00:00 Outpatient PREZAS, ADRIANO RAJPUT MELISSA [id number] [facility] 2022-12-14 00:00:00 2022-12-14 00:00:00 Outpatient PREZAS, ADRIANO RAJPUT MELISSA [id number] Melissa Quigleymayra 2022-12-11 14:15:00 2022-12-11 14:15:00 Outpatient LAB90 MELISSA MELISSA [id number] [facility] 2022-12-11 13:45:00 2022-12-11 13:45:00 Outpatient PREZAS, ADRIANO RAJPUT MELISSA [id number] [facility] 2022-12-06 00:00:00 2022-12-06 00:00:00 Outpatient PREZAS, ADRIANO RAJPUT MELISSA [id number] [facility] 2022-11-27 13:30:00 2022-11-27 13:30:00 Outpatient PREZAS, ADRIANO MELISSA MELISSA [id number] [facility] 2022-11-27 08:30:00 2022-11-27 08:30:00 Outpatient MICHAELKEMAR MELISSA MELISSA [id number] Melissa [facility] 2022-11-23 00:00:00 2022-11-23 00:00:00 Outpatient PREZAS, ADRIANO RAJPUT MELISSA [id number] Melissa [facility] 2022-11-18 00:00:00 2022-11-18 00:00:00 Outpatient PREZAS, ADRIANO MELISSA RAJPUT [id number] Melissa [facility] 2022-11-16 14:30:00 2022-11-16 14:30:00 Outpatient MELISSA RAJPUT [id number] Melissa [facility] 2022-11-16 00:00:00 2022-11-16 00:00:00 Outpatient PREZAS, ADRIANO MELISSA RAJPUT [id number] [facility] 2022-11-16 00:00:00 2022-11-16 00:00:00 Outpatient PREZAS, ADRIANO RAJPUT [id number] [facility] 2022-11-16 00:00:00 2022-11-16 00:00:00 Outpatient PREZAS, ADRIANO RAJPUT [id number] [facility] 2022-11-11 11:30:00 2022-11-11 11:30:00 Outpatient PREZAADRIANO Resendez MELISSA RAJPUT [id number] Melissa [facility] 2022-11-05 15:00:00 2022-11-05 15:00:00 Outpatient PURCELLESTHER MELISSA RAJPUT [id number] [facility] 2022-11-02 00:00:00 2022-11-02 00:00:00 Outpatient PURCELL, ESTHER MELISSA RAJPUT [id number] [facility] 2022-11-02 00:00:00 2022-11-02 00:00:00 Outpatient PREZASADRIANO MELISSA RAJPUT [id number] [facility] 2022-11-02 00:00:00 2022-11-02 00:00:00 Outpatient PREZAVANCE ResendezJUSTIN RAJPUT [id number] [facility] 2022-10-30 13:40:00 2022-10-30 13:40:00 Outpatient SINDY GIDEON MELISSA RAJPUT [id number] [facility] 2022-10-30 13:35:00 2022-10-30 13:35:00 [facility] [place] RAJ[place] [id number] [facility] 2022-10-30 10:30:00 2022-10-30 10:30:00 Outpatient KEMAR RODRIGUEZ [id number] [facility] 2022-10-30 00:00:00 2022-10-30 00:00:00 Outpatient PREADRIANO POWELL MELISSA RAJPUT [id number] [facility] 2022-10-30 00:00:00 2022-10-30 00:00:00 Outpatient PREZAS ADRIANO RAJPUT [id number] [facility] 2022-10-30 00:00:00 2022-10-30 00:00:00 Outpatient MELISSA RAJPUT [id number] [facility] 2022-10-29 12:40:00 2022-10-29 12:40:00 Outpatient LAB90 MELISSA RAJPUT [id number] [facility] 2022-10-28 16:20:00 2022-10-28 16:20:00 Outpatient IVIS HOOVER MELISSA RAJPUT [id number] [facility] 2022-10-27 14:45:00 2022-10-27 14:45:00 Outpatient SHMUEL HAGEN MELISSA RAJPUT [id number] [facility] 2022-10-26 16:00:00 2022-10-26 16:00:00 Outpatient IVIS HOOVER MELISSA RAJPUT [id number] [facility] 2022-10-26 14:30:00 2022-10-26 14:30:00 Outpatient NUHA WINSTON MELISSA RAJPUT [id number] [facility] 2022-10-26 14:15:00 2022-10-26 14:15:00 Outpatient MELISSA RAJPUT [id number] [facility] 2022-10-23 14:30:00 2022-10-23 14:30:00 Outpatient SINDYEDGARGIDEON [facility]ELISSA RAJPUT [id number] [facility] 2022-10-19 08:50:00 2022-10-19 08:50:00 Outpatient NUHA WINSTON MELISSA RAJPUT [id number] [facility] 2022-10-16 00:00:00 2022-10-16 00:00:00 Outpatient NUHA WINSTON MELISSA RAJPUT [id number] [facility] 2022-10-13 15:20:00 2022-10-13 15:20:00 Outpatient MATEO ANTHONY [id number] [facility] 2022-10-13 14:00:00 2022-10-13 14:00:00 Outpatient VF53 MELISSA RAJPUT [id number] [facility] 2022-10-13 10:20:00 2022-10-13 10:20:00 Outpatient LEONID ROSE [id number] [facility] 2022-10-02 00:00:00 2022-10-02 00:00:00 Outpatient MD MELISSA NOBLE [id number] [facility] 2022-10-01 00:00:00 2022-10-01 00:00:00 Outpatient PREZAS, ADRIANO RAJPUT MELISSA [id number] Melissa Seybold 2022-09-30 00:00:00 2022-09-30 00:00:00 Outpatient PREZAS, ADRIANO RAJPUT MELISSA [id number] Melissa Seybold 2022-09-30 00:00:00 2022-09-30 00:00:00 Outpatient HAM, PRINCE MELISSA RAJPUT [id number] Melissa Seybold 2022-09-28 00:00:00 2022-09-28 00:00:00 Outpatient NOCMATEO Graham MELISSA RAJPUT [id number] Melissa Seybold 2022-09-28 00:00:00 2022-09-28 00:00:00 Outpatient PREZAS, ADRIANO MELISSA RAJPUT [id number] [facility] 2022-09-19 00:00:00 2022-09-19 00:00:00 Outpatient PREZAS, ADRIANO MELISSA MELISSA [id number] [facility] 2022-09-15 00:00:00 2022-09-15 00:00:00 Outpatient PREZAS, ADRIANO MELISSA RAJPUT [id number] [facility] 2022-09-14 11:55:00 2022-09-14 11:55:00 Outpatient WEN MELISSA RAJPUT [id number] Melissa Seybold 2022-09-14 00:00:00 2022-09-14 00:00:00 Outpatient HAM, PRINCE MELISSA RAJPUT [id number] Melissa Seybold 2022-09-08 00:00:00 2022-09-08 00:00:00 Outpatient ROBERT, KESHAWN RAJPUT [id number] Melissa Seybold 2022-09-07 12:00:00 2022-09-07 12:00:00 Outpatient ROBERT, KESHAWN RAJPUT [id number] Melissa Seybold 2022-09-04 00:00:00 2022-09-04 00:00:00 Outpatient PREZAS, ADRIANO MELISSA RAJPUT [id number] Melissa Seybold 2022-09-04 00:00:00 2022-09-04 00:00:00 Outpatient PREADRIANO POWELL MELISSA RAJPUT [id number] [facility] 2022-09-03 15:15:00 2022-09-03 15:15:00 Outpatient PURCELLESTHER RAMOS [id number] [facility] 2022-09-02 00:00:00 2022-09-02 00:00:00 Outpatient MD MELISSA NOBLE [id number] [facility] 2022-09-01 00:00:00 2022-09-01 00:00:00 Outpatient MD MELISSA NOBLE [id number] [facility] 2022-09-01 00:00:00 2022-09-01 00:00:00 Outpatient PREZAMal ADRIANO RAJPUT [id number] [facility] 2022-08-31 00:00:00 2022-08-31 00:00:00 Outpatient PURCELLESTHER [id number] [facility] 2022-08-27 13:30:00 2022-08-27 13:30:00 Outpatient PRESHERRY ADRIANO RAJPUT [id number] [facility] 2022-08-19 11:30:00 2022-08-19 11:30:00 Outpatient UDOEGIDEON VITALE [id number] [facility] 2022-08-04 13:00:00 2022-08-04 13:00:00 Outpatient UDOETUKMONAUA MELISSA RAJPUT [id number] [facility] 2022-07-30 00:00:00 2022-07-30 00:00:00 Outpatient HAMANALISAPRINCEKARI RAJPUT [id number] [facility] 2022-07-28 00:00:00 2022-07-28 00:00:00 Outpatient MATEO ANTHONY [id number] [facility] 2022-07-28 00:00:00 2022-07-28 00:00:00 Outpatient PREZAS [facility]AN[facility]PUT [id number] [facility] 00:00:00 2022-07-28 00:00:00 Outpatient PREZASADRIANO MELISSA RAJPUT [id number] [facility] 2022-07-19 00:00:00 2022-07-19 00:00:00 Outpatient PREZASADRIANO MELISSA RAJPUT [id number] [facility] 2022-07-15 13:15:00 2022-07-15 13:15:00 Outpatient MELISSA RAJPUT [id number] [facility] 2022-07-13 14:00:00 2022-07-13 14:00:00 Outpatient MATEO ANTHONY MELISSA RAJPUT [id number] [facility] 2022-07-10 00:00:00 2022-07-10 00:00:00 Outpatient PREZAS, ADRIANO MELISSA RAJPUT [id number] [facility] 2022-07-10 00:00:00 2022-07-10 00:00:00 Outpatient PREZAS, ADRIANO MELISSA RAJPUT [id number] [facility] 2022-07-09 13:30:00 2022-07-09 13:30:00 Outpatient LAB90 MELISSA RAJPUT [id number] [facility] 2022-07-07 00:00:00 2022-07-07 00:00:00 Outpatient PREZAS, ADRIANO MELISSA RAJPUT [id number] [facility] 2022-07-03 00:00:00 2022-07-03 00:00:00 Outpatient MD MELISSA NOBLE [id number] [facility] 2022-06-30 14:30:00 2022-06-30 14:30:00 Outpatient PREZAS, ADRIANO MELISSA RAJPUT [id number] [facility] 2022-06-29 14:30:00 2022-06-29 14:30:00 Outpatient MONA RODRIGUEZUA MELISSA RAJPUT [id number] [facility] 2022-06-29 13:15:00 2022-06-29 13:15:00 Outpatient 1CHATO [id number] [facility] 2022-06-24 11:00:00 2022-06-24 11:00:00 Outpatient PREZAADRIANO Resendez MELISSA RAJPUT [id number] [facility] 2022-06-24 00:00:00 2022-06-24 00:00:00 Outpatient PREZAADRIANO Resendez MELISSA RAJPUT [id number] [facility] 2022-06-24 00:00:00 2022-06-24 00:00:00 Outpatient NOCKMATEO MELISSA RAJPUT [id number] [facility] 2022-06-22 11:30:00 2022-06-22 11:30:00 Outpatient IVT, GABY RAJPUT [id number] [facility] 2022-06-22 00:00:00 2022-06-22 00:00:00 Outpatient MELISSA RAJPUT [id number] [facility] 2022-06-22 00:00:00 2022-06-22 00:00:00 Outpatient PREZAADRIANO Resendez MELISSA RAJPUT [id number] [facility] 2022-06-19 15:40:00 2022-06-19 15:40:00 Outpatient ROBERTKESHAWN Kamara MELISSA RAJPUT [id number] [facility] 2022-06-19 14:00:00 2022-06-19 14:00:00 Outpatient PURCELLESTHER RAMOS [id number] [facility] 2022-06-19 00:00:00 2022-06-19 00:00:00 Outpatient CARLTON HERNANDEZ [id number] [facility] 2022-06-17 00:00:00 2022-06-17 00:00:00 Outpatient NOCSantosNESSMATEOBRENTON RAJPUT [id number] [facility] 2022-06-15 00:00:00 2022-06-15 00:00:00 Outpatient PREZAADRIANO Resendez MELISSA RAJPUT [id number] [facility] 2022-06-15 00:00:00 2022-06-15 00:00:00 Outpatient CARLTON HERNANDEZ [id number] [facility] 2022-06-12 14:20:00 2022-06-12 14:20:00 Outpatient KUMARISMA Low MELISSA RAJPUT [id number] [facility] 2022-06-09 11:30:00 2022-06-09 11:30:00 Outpatient INFUSION, GABY RAJPUT [id number] [facility] 2022-06-02 00:00:00 2022-06-02 00:00:00 Outpatient RUBY, ANGELA MELISSA RAJPUT [id number] [facility] 2022-06-01 14:00:00 2022-06-01 14:00:00 Outpatient PREZAS, ADRIANO RAJPUT [id number] [facility] 2022-06-01 00:00:00 2022-06-01 00:00:00 Outpatient CARLTON HERNANDEZ [id number] [facility] 2022-05-26 10:00:00 2022-05-26 10:00:00 Outpatient IVT, GABY RAJPUT [id number] [facility] 2022-05-18 00:00:00 2022-05-18 00:00:00 Outpatient DIORZAIN HOLCOMB [id number] Melissa [facility] 2022-05-13 16:00:00 2022-05-13 16:00:00 Outpatient MELISSA RAJPUT [id number] Melissa [facility] 2022-05-12 11:35:00 2022-05-12 11:35:00 Outpatient TOMOGRAPHY, CK MELISSA RAJPUT [id number] [facility] 2022-05-12 11:05:00 2022-05-12 11:05:00 Outpatient TOMOGRAPHY, CK MELISSA RAJPUT [id number] Melissa [facility] 2022-05-12 10:40:00 2022-05-12 10:40:00 Outpatient NOCMATEO Graham [id number] Melissa [facility] 2022-05-11 14:30:00 2022-05-11 14:30:00 Outpatient ALAKENNY, ENRIQUEO MELISSA RAJPUT [id number] [facility] 2022-05-08 10:00:00 2022-05-08 10:00:00 Outpatient PREZAS, ADRIANO MELISSA RAJPUT [id number] Melissa [facility] 2022-05-07 16:00:00 2022-05-07 16:00:00 Outpatient MATTHEW ASHFORD MELISSA RAJPUT [id number] [facility] 2022-05-06 00:00:00 2022-05-06 00:00:00 Outpatient MELISSA RAJPUT [id number] Melissa Seybold 2022-05-05 07:50:00 2022-05-05 07:50:00 Outpatient MELISSA RAJPUT [id number] Melissa [facility] 2022-05-05 07:30:00 2022-05-05 07:30:00 Outpatient MELISSA RAJPUT [id number] [facility] 2022-05-05 00:00:00 2022-05-05 00:00:00 Outpatient PREZAS, ADRIANO MELISSA RAJPUT [id number] [facility] 2022-05-05 00:00:00 2022-05-05 00:00:00 Outpatient PHOEBE ROWE MELISSA RAJPUT [id number] [facility] 2022-05-05 00:00:00 2022-05-05 00:00:00 Outpatient PREZAS, ADRIANO [facility]JPUT [id number] [facility] 2022-05-05 00:00:00 2022-05-05 00:00:00 Outpatient MELISSA RAJPUT [id number] Melissa [facility]bold 2022-05-01 14:30:00 2022-05-01 14:30:00 Outpatient LAB90 MELISSA RAJPUT [id number] Melissa Seybold 2022-05-01 13:45:00 2022-05-01 13:45:00 Outpatient PREZAS, ADRIANO MELISSA RAJPUT [id number] Melissa Seybold 2022-04-22 16:15:00 2022-04-22 16:15:00 Outpatient MELISSA RAJPUT [id number] Melissa Seybold 2022-04-22 10:00:00 2022-04-22 10:00:00 Outpatient IVIS HOOVER [id number] Melissa Seybold 2022-04-10 16:00:00 2022-04-10 16:00:00 Outpatient MELISSA RAJPUT [id number] [facility] 2022-04-10 00:00:00 2022-04-10 00:00:00 Outpatient PREZAS, ADRIANO RAJPUT [id number] Melissa [facility] 2022-04-09 00:00:00 2022-04-09 00:00:00 Outpatient PREZAS, ADRIANO RAJPUT [id number] [facility] 2022-04-09 00:00:00 2022-04-09 00:00:00 Outpatient PREZAS, ADRIANO RAJPUT [id number] [facility] 2022-04-09 00:00:00 2022-04-09 00:00:00 Outpatient PREZAS, ADRIANO RAJPUT [id number] [facility] 2022-04-08 14:15:00 2022-04-08 14:15:00 Outpatient LAB90 MELISSA RAJPUT [id number] Melissa [facility] 2022-04-07 00:00:00 2022-04-07 00:00:00 Outpatient PREZAS, ADRIANO RAJPUT [id number] Melissa [facility] 2022-04-06 13:40:00 2022-04-06 13:40:00 Outpatient LAB90 MELISSA RAJPUT [id number] Melissa [facility] 2022-04-03 15:15:00 2022-04-03 15:15:00 Outpatient PREZAS, ADRIANO RAJPUT [id number] [facility] 2022-04-01 10:30:00 2022-04-01 10:30:00 Outpatient R ANDREW VERDUZCO [facility] [id number] [facility] 2022-04-01 10:30:00 2022-04-01 10:30:00 Outpatient R ANDREW VERDUZCO [facility] [id number] [facility] 2022-02-26 14:58:07 2022-02-26 14:58:07 Outpatient SFA ERICK [id number] Matthew Brown 2022-02-20 14:15:19 2022-02-20 14:15:19 Outpatient SFA [facility] [id number] Matthew Brown 2022-02-11 09:20:44 2022-02-11 09:20:44 Outpatient SFA [facility] [id number] Matthew Brown 2022-02-05 11:38:34 2022-02-05 11:38:34 Outpatient [facility] 1229 Matthew Brown 2022-02-05 00:00:00 2022-02-05 00:00:00 Outpatient Visit [id number] 10:42:46 2021-11-17 10:42:46 Outpatient [facility] [id number] Matthew Brown 2021-11-13 15:06:22 2021-11-13 15:06:22 Outpatient [facility] [id number] Matthew Brown 2021-11-13 00:00:00 2021-11-13 00:00:00 Outpatient Visit [id number] 2021-10-09 00:00:00 2021-10-09 00:00:00 Outpatient ROSETTA FINNEY [facility] [id number] [facility] 2021-10-01 00:00:00 2021-10-01 00:00:00 Patient Outreach Malini Muñoz [facility] [id number] [id number] [id number] [facility] 2021-10-01 00:00:00 2021-10-01 00:00:00 Telephone Malini Muñoz [place] [id number] [id number] [facility] 2021-09-30 15:00:00 2021-09-30 16:30:37 Outpatient R ANDREW VERDUZCO [facility] [id number] [facility] 2021-09-30 15:00:00 2021-09-30 16:30:37 [facility] [id number] [facility] 2021-09-30 15:00:00 2021-09-30 16:30:37 Office Visit Andrew Verduzco [facility] [id number] [id number] [id number] [facility] 2021-09-30 00:00:00 2021-09-30 00:00:00 Orders Only Doctor Unassigned, [place] [id number] [id number] [facility] 2021-07-24 00:00:00 2021-07-24 00:00:00 Orders Only Doctor Unassigned, [place] [id number] 4.2.7.2.686 [id number] [facility] 2021-04-11 14:20:00 2021-04-11 14:20:00 Outpatient R UNKNOWN, [facility] [id number] [facility] 2021-04-11 14:20:00 2021-04-11 14:20:00 Outpatient R UNKNOWN, ATTENDING [facility] [id number] [facility] 2021-04-07 21:43:00 2021-04-08 01:09:00 Emergency X [facility] E[facility] [id number] [facility] 2021-04-07 21:43:00 2021-04-08 01:09:00 Emergency Lexa Goff [facility] [id number] 4.2.7.2.686 [id number] [facility] 2019-08-21 08:00:00 2019-08-21 08:00:00 Outpatient Chaparro LEVYKANDI [facility]NET[facility]ber[facility] [id number] [facility] 2019-07-24 21:47:47 2019-07-25 02:18:00 Emergency Santos [facility] ERT [id number] [facility] Results Test Description Test Time Test Comments Results Result Co mments Source [facility] [id number] 18:40:14* Test Item Value Reference Range Interpretation Comme nts VENTRICULAR RATE (test code = 06715) BPM ATRIAL RATE (test code = 64217) BPM P-R INTERVAL (test code = 60184) 134 ms QRS DURATION (test code = 24405) 80 ms Q-T INTERVAL (test code = 91887) 408 ms QTC CALCULATION(BEZE (test code = 78914) 437 ms CALCULATED P AXIS (test code = 68410) degrees CALCULATED R AXIS (test code = 56586) degrees CALCULATED T AXIS (test code = 35528) degrees DIAGNOSIS (test code = 91067) Normal sinus rhythmPossible Inferior infarct , age undeterminedPoor R-wave progressionBorderline ECGNo previous ECGs availableConfirmed by Radha MCCALL ([id number]) on 11/11/2022 1:40:13 PM Melissa Grant - ExternalLIPID [id number] 05:52:40* Test Item Value Reference Range Interpretation Comme nts CHOLESTEROL (test code = 2210) 174 MG/DL <200 TRIGLYCERIDES (test code = 2232) 192 MG/DL <150 H HDL CHOLESTEROL (test code = 2220) 45 MG/DL >39 CALC LDL CHOL (test code = 2237) 100 MG/DL <100 H NOTE: CALCULATED LDL IS BASED ON CAHTO-[place] METHOD WHICHINCLUDES ADJUSTABLE TRIGLYCERIDE:VLDL CHOLESTEROL RATIO.THIS FACTOR VARIES BY MEASURED TRIGLYCERIDE AND NON-HDLCHOLESTEROL CONCENTRATIONS WITH INCREASED CALCULATED LDL SEENIN HIGHER TRIGLYCERIDE OR LOWER NON-HDL SPECIMENS. FOR MOREINFORMATION, SEE CLIENT ANNOUNCEMENT AT [email or web address] /[email or web address]-[email or web address] RISK RATIO LDL/HDL (test code = 2237) 2.22 RATIO <3.22 COMPREHENSIVE METABOLIC [id number] 05:52:40* Test Item Value Reference Range Interpretation Comme nts GLUCOSE (test code = 2216) 166 MG/DL 70-99 H BUN (test code = 2207) 33 MG/DL 6-20 H CREATININE (test code = 2213) 1.77 MG/DL 0.60-1.30 H eGFR (2020 CKD-EPI) (test code = 61349) 35 ML/MIN/1.73 >60 L CALC BUN/CREAT (test code = 5) 19 RATIO 6-28 SODIUM (test code = 2230) 141 MEQ/L 133-146 POTASSIUM (test code = 222) 4.9 MEQ/L 3.5-5.4 CHLORIDE (test code = 2215) 108 MEQ/L 95-107 H CARBON DIOXIDE (test code = 6) 22 MEQ/L 19-31 CALCIUM (test code = 2209) 9.2 MG/DL 8.5-10.5 PROTEIN, TOTAL (test code = 2229) 7.1 G/DL 6.1-8.3 ALBUMIN (test code = 2201) 3.7 G/DL 3.5-5.2 CALC GLOBULIN (test code = 2240) 3.4 G/DL 1.9-3.7 CALC A/G RATIO (test code = 223) 1.1 RATIO 1.0-2.6 BILIRUBIN, TOTAL (test code = 220) <0.2 MG/DL See_Comment [Automated me ssage] The system which generated this result transmitted reference range: <=1.2. The reference range was not used to interpret this result as normal/abnormal. ALKALINE PHOSPHATASE (test code = 2204) 98 U/L 40-123 AST (test code = 2218) 14 U/L 9-40 ALT (test code = 2219) 8 U/L 5-40 UNLESS OTHERWISE INDICATED, ALL TESTING PERFORMED [facility] [employer] [address] [place] [address] ANODIC OPERATOR: JAYCEE RAMIREZ M.D. [place] NUMBER [id number] [facility] [place]. [id number] HEMOGLOBIN [id number] 04:18:15* Test Item Value Reference Range Interpretation Comme [facility] HEMOGLOBIN A1c (test code = 81265) 7.5 % 4.2-5.6 H [employer] GUIDELINES FOR HGB A1C: [...] CONSIDER ALTERNATE TESTING OR LABORATORY CONSULTATION. HEMOGLOBIN [id number] 00:00:00* Test Item Value Reference Range Interpretation Comme [facility] HEMOGLOBIN A1c (test code = 16144) 7.5 % LIPID [id number] 00:00:00* Test Item Value Reference Range Interpretation Comme nts CHOLESTEROL (test code = 2210) 174 MG/DL TRIGLYCERIDES (test code = 2232) 192 MG/DL HDL CHOLESTEROL (test code = 2220) 45 MG/DL CALC LDL CHOL (test code = 2237) 100 MG/DL RISK RATIO LDL/HDL (test cod e = 2238) 2.22 RATIO COMPREHENSIVE METABOLIC [id number] 00:00:00* Test Item Value Reference Range Interpretation Comme nts GLUCOSE (test code = 2217) 166 MG/DL BUN (test code = 2208) 33 MG/DL CREATININE (test code = 2214) 1.77 MG/DL eGFR (2020 CKD-EPI) (test co de = 90944) 35 ML/MIN/1.73 CALC BUN/CREAT (test code = [...] = 2219) 8 U/L POCT HEMOGLOBIN A1C [id number] 21:21:00* Test Item Value Reference Range Interpretation Comme nts POCT HBA1C (test code = 4548-4) 8.2 % 4-6 A Lab Interpretation (test cod e = 27427-6) Abnormal [facility] [id number] 05:24:49* Test Item Value Reference Range Interpretation Comme nts HEMOGLOBIN A1c (test code = 24686) 7.8 % 4.2-5.6 H [employer] GUIDELINES FOR HGB A1C: [...] CONSIDER ALTERNATE TESTING OR LABORATORY CONSULTATION. LIPID [id number] 05:18:45* Test Item Value Reference Range Interpretation [...] SPECIMENS. FOR MOREINFORMATION, SEE CLIENT ANNOUNCEMENT AT [email or web address] RISK RATIO LDL/HDL (test code = 2238) 3.54 RATIO <3.22 H COMPREHENSIVE METABOLIC [id number] 05:18:45* Test Item Value Reference Range Interpretation Comme nts GLUCOSE (test code = 2216) 202 MG/DL 70-99 H BUN (test code = 220) 23 MG/DL 6-20 H CREATININE (test code = 2214) 1.57 MG/DL 0.60-1.30 H eGFR (2020 CKD-EPI) (test code = 01726) 41 ML/MIN/1.73 >60 L CALC BUN/CREAT (test code = 2235) 15 RATIO 6-28 SODIUM (test code = 223) 139 MEQ/L 133-146 POTASSIUM (test code = 2228) 4.6 MEQ/L 3.5-5.4 CHLORIDE (test code = 2214) 102 MEQ/L 95-107 CARBON DIOXIDE (test code = 220) 29 MEQ/L 19-31 CALCIUM (test code = 220) 9.3 MG/DL 8.5-10.5 PROTEIN, TOTAL (test code = 2228) 7.0 G/DL 6.1-8.3 ALBUMIN (test code = 2200) 3.6 G/DL 3.5-5.2 CALC GLOBULIN (test code [...] 5-40 UNLESS OTHERWISE INDICATED, ALL TESTING PERFORMED [facility] [address] [place] [address], [place] [address] ANODIC OPERATOR: JAYCEE RAMIREZ M.D. CLIA NUMBER [id number] [facility] [place]. [id number] COMPREHENSIVE METABOLIC PANEL [ADDED]2021-07-26 00:00:00* Test Item Value Reference Range Interpretation Comme nts GLUCOSE (test code = 7) 202 MG/DL BUN (test code = 8) 23 MG/DL CREATININE (test code = 2214) 1.57 MG/DL eGFR (2020 CKD-EPI) (test co de = 12239) 41 ML/MIN/1.73 CALC BUN/CREAT (test code = [...] Comme nts HEMOGLOBIN A1c (test code = 08075) 7.8 % LIPID PANEL [ADDED]2021-07-26 00:00:00* Test [...] eGFR (2020 CKD-EPI) (test co de = 35707) 41 ML/MIN/1.73 CALC BUN/CREAT (test code = [...] Comme nts HEMOGLOBIN A1c (test code = 91813) 7.8 % LIPID PANEL [ADDED]2021-07-26 00:00:00* Test Item Value Reference Range Interpretation Comme nts CHOLESTEROL (test code = 2210) 222 MG/DL TRIGLYCERIDES (test code = 2232) 313 MG/DL HDL CHOLESTEROL (test code = 2220) 39 MG/DL CALC LDL CHOL (test code = 2237) 138 MG/DL RISK RATIO LDL/HDL (test cod e = 2238) 3.54 RATIO HEMOGLOBIN [id number] 06:11:51* Test Item Value Reference Range Interpretation Comme nts HEMOGLOBIN A1c (test code = 96652) 10.8 % 4.2-5.6 H [employer] GUIDELINES FOR HGB A1C: [...] CONSIDER ALTERNATE TESTING OR LABORATORY CONSULTATION. LIPID [id number] 05:14:42* Test Item Value Reference Range Interpretation [...] SPECIMENS. FOR MOREINFORMATION, SEE CLIENT ANNOUNCEMENT AT [email or web address]-[email or web address] RISK RATIO LDL/HDL (test code = 223) 2.90 RATIO <3.22 COMPREHENSIVE METABOLIC [id number] 05:14:42* Test Item Value Reference Range Interpretation Comme nts GLUCOSE (test code = 2216) 58 MG/DL 70-99 L BUN (test code = 2207) 19 MG/DL 6-20 CREATININE (test code = 221) 1.40 MG/DL 0.60-1.30 H eGFR (2020 CKD-EPI) (test code = 48936) 47 ML/MIN/1.73 >60 L CALC BUN/CREAT (test [...] RATIO 1.0-2.6 BILIRUBIN, TOTAL (test code = 220) <0.2 MG/DL See_Comment [Automated me ssage] The system which generated this result transmitted reference range: <=1.2. The reference range was not used to interpret this result as normal/abnormal. ALKALINE PHOSPHATASE (test code = 2204) 109 U/L 40-120 AST (test code = 2218) 14 U/L 9-40 ALT (test code = 2219) 11 U/L 5-40 UNLESS OTHERWISE INDICATED, ALL TESTING PERFORMED [facility] [address] [place] [address] ANODIC OPERATOR: JAYCEE RAMIREZ M.D. IA NUMBER [id number] [facility] [place]. [id number] COMPREHENSIVE METABOLIC [id number] 00:00:00* Test Item Value Reference Range Interpretation Comme nts GLUCOSE (test code = 2217) 58 MG/DL BUN (test code = 2208) 19 MG/DL CREATININE (test code = 2214) 1.40 MG/DL eGFR (2020 CKD-EPI) (test co de = 25259) 47 ML/MIN/1.73 CALC BUN/CREAT (test code = [...] (test code = 2219) 11 U/L HEMOGLOBIN [id number] 00:00:00* Test Item Value Reference Range Interpretation Comme nts HEMOGLOBIN A1c (test code = 79261) 10.8 % LIPID [id number] 00:00:00* Test Item Value Reference Range Interpretation Comme nts CHOLESTEROL (test code = 2210) 235 MG/DL TRIGLYCERIDES (test code = 2232) 215 MG/DL HDL CHOLESTEROL (test code = 2220) 51 MG/DL CALC LDL CHOL (test code = 2237) 148 MG/DL RISK RATIO LDL/HDL (test cod e = 2238) 2.90 RATIO COMPREHENSIVE METABOLIC [id number] 00:00:00* Test Item Value Reference Range Interpretation Comme nts GLUCOSE (test code = 2217) 58 MG/DL BUN (test code = 2208) 19 MG/DL CREATININE (test code = 2214) 1.40 MG/DL eGFR (2020 CKD-EPI) (test co de = 92370) 47 ML/MIN/1.73 CALC BUN/CREAT (test code = [...] (test code = 2219) 11 U/L HEMOGLOBIN [id number] 00:00:00* Test Item Value Reference Range Interpretation Comme nts HEMOGLOBIN A1c (test code = 66444) 10.8 % LIPID [id number] 00:00:00* Test Item Value Reference Range Interpretation Comme nts CHOLESTEROL (test code = 2210) 235 MG/DL TRIGLYCERIDES (test code = 2232) 215 MG/DL HDL CHOLESTEROL (test code = 2220) 51 MG/DL CALC LDL CHOL (test code = 2237) 148 MG/DL RISK RATIO LDL/HDL (test cod e = 2238) 2.90 RATIO HEMOGLOBIN [id number] 11:23:29* Test Item Value Reference Range Interpretation Comme nts HEMOGLOBIN A1c (test code = 33204) 13.0 % 4.2-5.6 H [employer] GUIDELINES FOR HGB A1C: [...] OR LABORATORY CONSULTATION. CBC W/AUTO DIFF WITH [id number] 10:40:41* Test Item Value Reference Range Interpretation [...] 0.00-0.10 ABS NUCLEATED RBCS (test code = 03127) 0.00 K/UL 0.00-0.11 TSH, THIRD [id number] 06:03:58* Test Item Value Reference Range Interpretation Comme nts TSH, THIRD GENERATION (test code = 2821) 5.840 UIU/ML 0.400-4.100 H UNLESS OTHERWISE INDICATED, ALL TESTING PERFORMED [facility] [employer] [address] [place] [address] ANODIC OPERATOR: JAYCEE RAMIREZ M.D. [facility] NUMBER [id number] [facility] [place]. [id number] LIPID [id number] 05:12:52* Test Item Value Reference Range Interpretation [...] SPECIMENS. FOR MOREINFORMATION, SEE CLIENT ANNOUNCEMENT AT [email or web address]/ CalcLDL-C RISK RATIO LDL/HDL (test code = 2238) 4.13 RATIO <3.22 H UNABLE TO DONNA CULATE COMPREHENSIVE METABOLIC [id number] 05:12:52* Test Item Value Reference Range Interpretation Comme nts GLUCOSE (test code = 2217) 304 MG/DL 70-99 H BUN (test code = 2208) 26 MG/DL 6-20 H CREATININE (test code = 2214) 1.81 MG/DL 0.60-1.30 H eGFR (2020 CKD-EPI) (test code = 28945) 34 ML/MIN/1.73 >60 L CALC BUN/CREAT (test [...] = 2219) 13 U/L 5-40 COMPREHENSIVE METABOLIC [id number] 00:00:00* Test Item Value Reference Range Interpretation Comme nts GLUCOSE (test code = 2217) 304 MG/DL BUN (test code = 2208) 26 MG/DL CREATININE (test code = 2214) 1.81 MG/DL eGFR (2020 CKD-EPI) (test co de = 11726) 34 ML/MIN/1.73 CALC BUN/CREAT (test code = [...] ALT (test code = 2219) 13 U/L [id number] 00:00:00* Test Item Value Reference Range Interpretation Comme nts TSH, THIRD GENERATION (test code = 2821) 5.840 UIU/ML CBC W/AUTO [id number] 00:00:00* Test Item Value Reference Range Interpretation [...] ABS NUCLEATED RBCS (test cod e = 39864) 0.00 K/UL HEMOGLOBIN [id number] 00:00:00* Test Item Value Reference Range Interpretation Comme nts HEMOGLOBIN A1c (test code = 88713) 13.0 % LIPID [id number] 00:00:00* Test Item Value Reference Range Interpretation Comme nts CHOLESTEROL (test code = 2210) 278 MG/DL TRIGLYCERIDES (test code = 2232) 553 MG/DL HDL CHOLESTEROL (test code = 2220) 38 MG/DL CALC LDL CHOL (test code = 2237) (NOTE) MG/DL RISK RATIO LDL/HDL (test cod e = 2238) 4.13 RATIO COMPREHENSIVE METABOLIC [id number] 00:00:00* Test Item Value Reference Range Interpretation Comme nts GLUCOSE (test code = 2217) 304 MG/DL BUN (test code = 2208) 26 MG/DL CREATININE (test code = 2214) 1.81 MG/DL eGFR (2020 CKD-EPI) (test co de = 34037) 34 ML/MIN/1.73 CALC BUN/CREAT (test code = [...] ALT (test code = 2219) 13 U/L [id number] 00:00:00* Test Item Value Reference Range Interpretation Comme nts TSH, THIRD GENERATION (test code = 2821) 5.840 UIU/ML CBC W/AUTO [id number] 00:00:00* Test Item Value Reference Range Interpretation [...] ABS NUCLEATED RBCS (test cod e = 41741) 0.00 K/UL HEMOGLOBIN [id number] 00:00:00* Test Item Value Reference Range Interpretation Comme nts HEMOGLOBIN A1c (test code = 56420) 13.0 % LIPID [id number] 00:00:00* Test Item Value Reference Range Interpretation Comme nts CHOLESTEROL (test code = 2210) 278 MG/DL TRIGLYCERIDES (test code = 2232) 553 MG/DL HDL CHOLESTEROL (test code = 2220) 38 MG/DL CALC LDL CHOL (test code = 2237) (NOTE) MG/DL RISK RATIO LDL/HDL (test cod e = 2238) 4.13 RATIO LIPID [id number] 04:41:06* Test Item Value Reference Range Interpretation [...] SPECIMENS. FOR MOREINFORMATION, SEE CLIENT ANNOUNCEMENT AT [email or web address] CalcLDL-C RISK RATIO LDL/HDL (test code = 223) 3.83 RATIO <3.22 H UNABLE TO DONNA CULATE COMPREHENSIVE METABOLIC [id number] 04:41:06* Test Item Value Reference Range Interpretation Comme nts GLUCOSE (test code = 2217) 87 MG/DL 70-99 BUN (test code = 2208) 19 MG/DL 6-20 CREATININE (test code = 2214) 1.31 MG/DL 0.60-1.30 H EFFECTIVE 2020, [facility] HAS IMPLEMENTED THE NKF-ASN RECOMMENDED KD-EPI EGFR REFIT CALCULATION THAT DOES NOT INCLUDE A COEFFICIENT FORRACE. FOR MORE INFORMATION, SEE ANNOUNCEMENT [email or web address] eGFR (2020 CKD-EPI) (test code = 77686) 51 ML/MIN/1.73 >60 L CALC BUN/CREAT (test [...] 5-40 UNLESS OTHERWISE INDICATED, ALL TESTING PERFORMED [facility] [address] [facility] [place] [address] ANODIC OPERATOR: JAYCEE RAMIREZ M.D. IA NUMBER [id number] [facility] [place]. [id number] HEMOGLOBIN [id number] 02:36:52* Test Item Value Reference Range Interpretation Comme [facility] HEMOGLOBIN A1c (test code = 23321) 7.3 % 4.2-5.6 H [employer] GUIDELINES FOR HGB A1C: [...] ALTERNATE TESTING OR LABORATORY CONSULTATION. COMPREHENSIVE METABOLIC [id number] 00:00:00* Test Item Value Reference Range Interpretation Comme nts GLUCOSE (test code = 2217) 87 MG/DL BUN (test code = 2208) 19 MG/DL CREATININE (test code = 2214) 1.31 MG/DL eGFR (2020 CKD-EPI) (test co de = 90461) 51 ML/MIN/1.73 CALC BUN/CREAT (test code = [...] (test code = 2219) 13 U/L HEMOGLOBIN [id number] 00:00:00* Test Item Value Reference Range Interpretation Comme nts HEMOGLOBIN A1c (test code = 23560) 7.3 % LIPID [id number] 00:00:00* Test Item Value Reference Range Interpretation Comme nts CHOLESTEROL (test code = 2210) 230 MG/DL TRIGLYCERIDES (test code = 2232) 455 MG/DL HDL CHOLESTEROL (test code = 2220) 35 MG/DL CALC LDL CHOL (test code = 2237) (NOTE) MG/DL RISK RATIO LDL/HDL (test cod e = 2238) 3.83 RATIO COMPREHENSIVE METABOLIC [id number] 00:00:00* Test Item Value Reference Range Interpretation Comme nts GLUCOSE (test code = 2217) 87 MG/DL BUN (test code = 2208) 19 MG/DL CREATININE (test code = 2214) 1.31 MG/DL eGFR (2020 CKD-EPI) (test co de = 24757) 51 ML/MIN/1.73 CALC BUN/CREAT (test code = [...] (test code = 2219) 13 U/L HEMOGLOBIN [id number] 00:00:00* Test Item Value Reference Range Interpretation Comme nts HEMOGLOBIN A1c (test code = 62356) 7.3 % LIPID [id number] 00:00:00* Test Item Value Reference Range Interpretation Comme nts CHOLESTEROL (test code = 2210) 230 MG/DL TRIGLYCERIDES (test code = 2232) 455 MG/DL HDL CHOLESTEROL (test code = 2220) 35 MG/DL CALC LDL CHOL (test code = 2237) (NOTE) MG/DL RISK RATIO LDL/HDL (test cod e = 2238) 3.83 RATIO COMPREHENSIVE METABOLIC [id number] 00:00:00* Test Item Value Reference Range Interpretation Comme nts GLUCOSE (test code = 2217) 147 MG/DL BUN (test code = 2208) 23 MG/DL CREATININE (test code = 2214) 1.27 MG/DL eGFR AMER. (test cod e = 60759) 59 ML/MIN/1.73 eGFR NON- AMER. (test code = 72349) 51 ML/MIN/1.73 CALC BUN/CREAT (test code = [...] (test code = 2219) 11 U/L HEMOGLOBIN [id number] 00:00:00* Test Item Value Reference Range Interpretation Comme nts HEMOGLOBIN A1c (test code = 44276) 7.2 % LIPID [id number] 00:00:00* Test Item Value Reference Range Interpretation Comme nts CHOLESTEROL (test code = 2210) 250 MG/DL TRIGLYCERIDES (test code = 2232) 312 MG/DL HDL CHOLESTEROL (test code = 2220) 41 MG/DL CALC LDL CHOL (test code = 2237) 161 MG/DL RISK RATIO LDL/HDL (test cod e = 2238) 3.93 RATIO COMPREHENSIVE METABOLIC [id number] 00:00:00* Test Item Value Reference Range Interpretation Comme nts GLUCOSE (test code = 2217) 147 MG/DL BUN (test code = 2208) 23 MG/DL CREATININE (test code = 2214) 1.27 MG/DL eGFR AMER. (test cod e = 24624) 59 ML/MIN/1.73 eGFR NON- AMER. (test code = 99988) 51 ML/MIN/1.73 CALC BUN/CREAT (test code = 2235) 18 RATIO SODIUM (test code = 2231) 141 MEQ/L POTASSIUM (test code = 2228) 4.7 MEQ/L CHLORIDE (test code = 2215) 106 MEQ/L CARBON DIOXIDE (test code = 2206) 26 MEQ/L CALCIUM (test code = 2209) 9.1 MG/DL PROTEIN, TOTAL (test code = 222) 7.4 G/DL ALBUMIN (test code = 220) 3.8 G/DL CALC GLOBULIN (test code = 2240) 3.6 G/DL CALC A/G RATIO (test code = 2234) 1.1 RATIO BILIRUBIN, TOTAL (test code = 220) <0.2 MG/DL ALKALINE PHOSPHATASE (test code = 2203) 92 U/L AST (test code = 2218) 18 U/L ALT (test code = 2219) 11 U/L HEMOGLOBIN [id number] 00:00:00* Test Item Value Reference Range Interpretation Comme nts HEMOGLOBIN A1c (test code = 92681) 7.2 % LIPID [id number] 00:00:00* Test Item Value Reference Range Interpretation Comme nts CHOLESTEROL (test code = 2210) 250 MG/DL TRIGLYCERIDES (test code = 2232) 312 MG/DL HDL CHOLESTEROL (test code = 2220) 41 MG/DL CALC LDL CHOL (test code = 2237) 161 MG/DL RISK RATIO LDL/HDL (test cod e = 2238) 3.93 RATIO PAP TEST, THINPREP, [id number] 00:00:00* Test Item Value Reference Range Interpretation Comme nts SOURCE: (test code = 8001) Endocervical SLIDES: (test code = 8011) 1 LMP: (test code = 8021) 06/27/2020 SPECIMEN ADEQUACY: (test code = 90915) (NOTE) INTERPRETATION: (test code = 46917) NILM/NO EPITH. ABNORMALITY;SEE BELOW IP TECHNOLOGY TRANSACTIONS ATTORNEY: (test code = 8101) OSCAR Heaton(ASCP) QC TECHNOLOGIST: (test code = 8111) [facility]IAC LOCATION: (test code = 84536) (NOTE) CPT: (test code = 8140) (NOTE) PAP TEST, THINPREP, [id number] 00:00:00* Test Item Value Reference Range Interpretation Comme [facility] SOURCE: (test code = 8001) Endocervical SLIDES: (test code = 8011) 1 LMP: (test code = 8021) 06/27/2020 SPECIMEN ADEQUACY: (test code = 35615) (NOTE) INTERPRETATION: (test code = 28784) NILM/NO EPITH. ABNORMALITY;SEE BELOW IP TECHNOLOGY TRANSACTIONS ATTORNEY: (test code = 8101) OSCAR Heaton(ASCP) QC TECHNOLOGIST: (test code = 8111) [facility]IAC LOCATION: (test code = 27945) (NOTE) CPT: (test code = 8140) (NOTE) CULTURE, [id number] 00:00:00* Test Item Value Reference Range Interpretation Comme [facility] CULTURE, URINE (test code = 45954) SPECIMEN NUMBER: [id number] CULTURE, [id number] 00:00:00* Test Item Value Reference Range Interpretation Comme [facility] CULTURE, URINE (test code = 08323) SPECIMEN NUMBER: [id number] HPV HIGH RISK WITH GENOTYPE, [id number] 00:00:00* Test Item Value Reference Range Interpretation Comme [facility] HPV HIGH RISK INTERP (test c ode = 85141) POSITIVE HPV 16 (test code = 37868) NEGATIVE HPV 18 (test code = 79738) NEGATIVE HPV, HR, OTHER GENOTYPES (te st code = 35189) POSITIVE HPV HIGH RISK WITH GENOTYPE, [id number] 00:00:00* Test Item Value Reference Range Interpretation Comme [facility] HPV HIGH RISK INTERP (test c ode = 64370) POSITIVE HPV 16 (test code = 59562) NEGATIVE HPV 18 (test code = 15496) NEGATIVE HPV, HR, OTHER GENOTYPES (te st code = 03723) POSITIVE VITAMIN D, 25 [id number] 00:00:00* Test Item Value Reference Range Interpretation Comme [facility] VITAMIN D, 25 OH (test code = 4958) TEST NOT PERFORMED NG/ML VITAMIN D, 25 [id number] 00:00:00* Test Item Value Reference Range Interpretation Comme nts VITAMIN D, 25 OH (test code = 4958) TEST NOT PERFORMED NG/ML CBC W/AUTO [id number] 00:00:00* Test Item Value Reference Range Interpretation [...] ABS NUCLEATED RBCS (test cod e = 70575) 0.00 K/UL CBC W/AUTO [id number] 00:00:00* Test Item Value Reference Range Interpretation [...] ABS NUCLEATED RBCS (test cod e = 83771) 0.00 K/UL COMPREHENSIVE METABOLIC [id number] 00:00:00* Test Item Value Reference Range Interpretation Comme nts GLUCOSE (test code = 2217) 300 MG/DL BUN (test code = 2208) 23 MG/DL CREATININE (test code = 2214) 1.24 MG/DL eGFR AMER. (test cod e = 13113) 60 ML/MIN/1.73 eGFR NON- AMER. (test code = 66932) 52 ML/MIN/1.73 CALC BUN/CREAT (test code = [...] ALT (test code = 2219) 12 U/L [id number] 00:00:00* Test Item Value Reference Range Interpretation Comme nts TSH, THIRD GENERATION (test code = 2821) 6.280 UIU/ML HEMOGLOBIN [id number] 00:00:00* Test Item Value Reference Range Interpretation Comme nts HEMOGLOBIN A1c (test code = 53407) 11.5 % LIPID [id number] 00:00:00* Test Item Value Reference Range Interpretation Comme nts CHOLESTEROL (test code = 2210) 260 MG/DL TRIGLYCERIDES (test code = 2232) 353 MG/DL HDL CHOLESTEROL (test code = 2220) 40 MG/DL CALC LDL CHOL (test code = 2237) 160 MG/DL RISK RATIO LDL/HDL (test cod e = 2238) 4.00 RATIO COMPREHENSIVE METABOLIC [id number] 00:00:00* Test Item Value Reference Range Interpretation Comme nts GLUCOSE (test code = 2217) 300 MG/DL BUN (test code = 2208) 23 MG/DL CREATININE (test code = 2214) 1.24 MG/DL eGFR AMER. (test cod e = 44573) 60 ML/MIN/1.73 eGFR NON- AMER. (test code = 50424) 52 ML/MIN/1.73 CALC BUN/CREAT (test code = [...] ALT (test code = 2219) 12 U/L [id number] 00:00:00* Test Item Value Reference Range Interpretation Comme nts TSH, THIRD GENERATION (test code = 2821) 6.280 UIU/ML HEMOGLOBIN [id number] 00:00:00* Test Item Value Reference Range Interpretation Comme nts HEMOGLOBIN A1c (test code = 03241) 11.5 % LIPID [id number] 00:00:00* Test Item Value Reference Range Interpretation Comme nts CHOLESTEROL (test code = 2210) 260 MG/DL TRIGLYCERIDES (test code = 2232) 353 MG/DL HDL CHOLESTEROL (test code = 2220) 40 MG/DL CALC LDL CHOL (test code = 2237) 160 MG/DL RISK RATIO LDL/HDL (test cod e = 2238) 4.00 RATIO COMPREHENSIVE METABOLIC [id number] 00:00:00* Test Item Value Reference Range Interpretation Comme nts GLUCOSE (test code = 2217) 313 MG/DL BUN (test code = 2208) 15 MG/DL CREATININE (test code = 2214) 0.71 MG/DL eGFR AMER. (test cod e = 63431) 123 ML/MIN/1.73 eGFR NON- AMER. (test code = 43244) 106 ML/MIN/1.73 CALC BUN/CREAT (test code = [...] (test code = 2219) 11 U/L LIPID [id number] 00:00:00* Test Item Value Reference Range Interpretation [...] (test code = 2821) 17.0 UIU/ML HEMOGLOBIN [id number] 00:00:00* Test Item Value Reference Range Interpretation Comme nts HEMOGLOBIN A1c (test code = 37860) 12.3 % CBC W/AUTO [id number] 00:00:00* Test Item Value Reference Range Interpretation [...] code = 1015) 408 K/UL COMPREHENSIVE METABOLIC [id number] 00:00:00* Test Item Value Reference Range Interpretation Comme nts GLUCOSE (test code = 2217) 313 MG/DL BUN (test code = 2208) 15 MG/DL CREATININE (test code = 2214) 0.71 MG/DL eGFR AMER. (test cod e = 90193) 123 ML/MIN/1.73 eGFR NON- AMER. (test code = 85918) 106 ML/MIN/1.73 CALC BUN/CREAT (test code = [...] (test code = 2219) 11 U/L LIPID [id number] 00:00:00* Test Item Value Reference Range Interpretation [...] (test code = 2821) 17.0 UIU/ML HEMOGLOBIN [id number] 00:00:00* Test Item Value Reference Range Interpretation Comme nts HEMOGLOBIN A1c (test code = 59245) 12.3 % CBC W/AUTO [id number] 00:00:00* Test Item Value Reference Range Interpretation [...] and Physical Notes Date/Time Note Provider Source 2023-05-21 09:20:44 Melissa Grant Gastroenterology followup patient note CC: PASHA HPI: Patient is a 48 year old female Chronic PASHA since 2018 from labs Had EGD/Colonoscpy done 2022 with polyps removed. Bx with Hpylori. - never started therapy Symptom consist of episgastric pain/burning, nausea With vomiting. Admitted to OSH 03/2023, had cholecystectomy Had EGD x 2 per pt. Also had mildly positive GES study. S/P Treatment for hpylori No change in symptoms Same nausea/vomiting/ epigastric burning. Last dose antibiotics 2 weeks prior. Past Medical History: Diagnosis Date Acquired hypothyroidism DM type 2 with diabetic mixed hyperlipidemia (multi HCC) taking medication Hypercholesteremia Iron deficiency anemia due to chronic blood loss 04/23/2022 Primary hypertension taking medication Past Surgical History: Procedure Laterality Date COLONOSCOPY WITH SNARE N/A 09/07/2022 Performed by Keshawn Jones MD at [facility] ESOPHAGUS ENDOSCOPY 2023 LAPAROSCOPIC CHOLECYSTECTOMY 2023 TUBAL LIGATION UPPER GI ENDOSCOPY, BIOPSY N/A 09/07/2022 Performed by Keshawn Jones MD at [facility] Social History Tobacco Use Smoking status: Former Types: E-cigarettes Quit date: 06/08/2022 Years since quittin.9 Smokeless tobacco: Never Vaping Use Vaping status: Former Substances: Nicotine-salt Substance Use Topics Alcohol use: Not Currently Drug use: Never Allergies Allergen Reactions Hydrocodone Other reaction(s): Nausea/Vomiting Other reaction(s): Not available Current Outpatient Medications on File Prior to Visit Medication Sig Dispense Refill Atorvastatin Calcium (Lipitor) 10 MG oral Tablet Take 1 tablet (10 mg total) by mouth nightly. 90 tablet 3 Dicyclomine HCl 20 MG oral Tablet Take 0.5 tablets (10 mg total) by mouth daily as needed (GI upset). Duloxetine HCl [address] Particles Take 1 capsule (20 mg total) by mouth daily. Ferrous Sulfate (Iron) 325 (65 Fe) MG oral Tablet Take 1 tablet (325 mg total) by mouth daily (with breakfast). 90 tablet 3 glipiZIDE 10 MG oral Tablet Take 1 tablet (10 mg total) by mouth in the morning and 1 tablet (10 mg total) in the evening. Take before meals. 180 tablet 3 hydroCHLOROthiazide 12.5 MG oral Capsule Take 1 capsule (12.5 mg total) by mouth every morning. Latanoprost 0.005 % ophthalmic Solution Place 1 drop into both eyes nightly. 2.5 mL 3 Levothyroxine Sodium 75 MCG oral Tablet Take 1 tablet (75 mcg total) by mouth daily 90 tablet 1 Metoclopramide HCl (Reglan) 5 MG oral Tablet Take 1 tablet (5 mg total) by mouth 2 times daily as needed (nausea). Olmesartan Medoxomil 5 MG oral Tablet Take 1 tablet by mouth daily. Sitagliptin Phosphate (Januvia) 25 MG oral Tablet Take 1 tablet (25 mg total) by mouth daily. 90 tablet 1 Spironolactone 25 MG oral Tablet Take 1 tablet (25 mg total) by mouth daily. Esomeprazole Magnesium (NexIUM) 40 MG oral Delayed Release Capsule Take 1 capsule (40 mg total) by mouth 2 times daily for 14 days. 28 capsule 0 No current facility-administered medications on file prior to visit. BP (!) 162/92 | Pulse 85 | Temp 98.2 ?F (36.8 ?C) (Oral) | Resp 18 | Ht 4' 11" (1.499 m) | Wt 146 lb 3.2 oz (66.3 kg) | BMI 29.53 kg/m? GEN: Alert and oriented HEENT:no jaundice, no oral ulcers, no eye erythema CV: RRR RESP:no distress ABD:soft, NTTp Labs reviewed Assessment: 47 year old F 1.) Epigastric pain/nausea 2.) H pylori positive 3.) PASHA 4.) Colon polyp history- last 2022- next due 2027 ( OSH record reviewed) Pt with recent hospitalization for pain/nausea/vomiting Had 2 EGD done Cholecystectomy US/HIDA/CT scan done. GES done with mild delay. S/p treatment without improvement of symptoms Will check AM cortisol/Spep/UPEP Will check Hpylori off abx and PPI to confirm eradication- if positive will retreat Carafate/tums while off PPI for testing Keshawn Jones MD Gastroenterology [facility] 2023-04-16 10:46:10 [facility] Gastroenterology followup patient note CC: PASHA HPI: Patient is a 48 year old female Chronic PASHA since 2019 from labs Had EGD/Colonoscpy done 2022 with polyps removed. Bx with Hpylori. - never started therapy Symptom consist of episgastric pain/burning, nausea With vomiting. Admitted to OSH 03/2023, had cholecystectomy Had EGD x 2 per pt. Also had mildly positive GES study. Past Medical History: Diagnosis Date Acquired hypothyroidism DM type 2 with diabetic mixed hyperlipidemia (multi HCC) taking medication Hypercholesteremia Iron deficiency anemia due to chronic blood loss 04/23/2022 Primary hypertension taking medication Past Surgical History: Procedure Laterality Date COLONOSCOPY WITH SNARE N/A 09/07/2022 Performed by Keshawn Jones MD at [facility] ESOPHAGUS ENDOSCOPY 2023 LAPAROSCOPIC CHOLECYSTECTOMY 2023 TUBAL LIGATION UPPER GI ENDOSCOPY, BIOPSY N/A 09/07/2022 Performed by Keshawn Jones MD at [facility] Social History Tobacco Use Smoking status: Former Types: E-cigarettes Quit date: 06/08/2022 Years since quittin.8 Smokeless tobacco: Never Vaping Use Vaping Use: Former Substances: Nicotine-salt Substance Use Topics Alcohol use: Not Currently Drug use: Never Allergies Allergen Reactions Hydrocodone Other reaction(s): Nausea/Vomiting Other reaction(s): Not available Current Outpatient Medications on File Prior to Visit Medication Sig Dispense Refill Atorvastatin Calcium (Lipitor) 10 MG oral Tablet Take 1 tablet (10 mg total) by mouth nightly. 90 tablet 3 Duloxetine HCl [address] Particles Take 1 capsule (20 mg total) by mouth daily. Ferrous Sulfate (Iron) 325 (65 Fe) MG oral Tablet Take 1 tablet (325 mg total) by mouth daily (with breakfast). 90 tablet 3 glipiZIDE 10 MG oral Tablet Take 1 tablet (10 mg total) by mouth in the morning and 1 tablet (10 mg total) in the evening. Take before meals. 180 tablet 3 hydroCHLOROthiazide 12.5 MG oral Capsule Take 1 capsule (12.5 mg total) by mouth every morning. Latanoprost 0.005 % ophthalmic Solution Place 1 drop into both eyes nightly. 2.5 mL 3 Levothyroxine Sodium 75 MCG oral Tablet Take 1 tablet (75 mcg total) by mouth daily 90 tablet 1 Metoclopramide HCl (Reglan) 5 MG oral Tablet Take 1 tablet (5 mg total) by mouth 2 times daily as needed (nausea). Olmesartan Medoxomil 5 MG oral Tablet Take 1 tablet by mouth daily. Sitagliptin Phosphate (Januvia) 25 MG oral Tablet Take 1 tablet (25 mg total) by mouth daily. 90 tablet 1 Spironolactone 25 MG oral Tablet Take 1 tablet (25 mg total) by mouth daily. Dicyclomine HCl 20 MG oral Tablet Take 0.5 tablets (10 mg total) by mouth daily as needed (GI upset). No current facility-administered medications on file prior to visit. BP 135/83 | Pulse 75 | Temp 97.8 ?F (36.6 ?C) (Oral) | Resp 18 | Ht 4' 11" (1.499 m) | Wt 146 lb 3.2 oz (66.3 kg) | BMI 29.53 kg/m? GEN: Alert and oriented HEENT:no jaundice, no oral ulcers, no eye erythema CV: RRR RESP:no distress ABD:soft, NTTp EXT: Moves all extremities SKIN: no rash NEURO: Follows commands Labs reviewed Assessment: 47 year old F 1.) Epigastric pain/nausea 2.) H pylori positive 3.) PASHA 4.) Colon polyp history- last 2022- next due 2027 Pt dx hpylori in 2022- did not take treatment ( OSH record reviewed) Pt with recent hospitalization for pain/nausea/vomiting Had 2 EGD done Cholecystectomy US/HIDA/CT scan done. GES done with mild delay. Pt continue to have symptoms Will treat pt Hpylori RTC; 4 weeks Keshawn Jones MD Gastroenterology [facility] 2023-02-16 11:07:50 CC: uterine prolapse, abnl uterine bleeding, MISTY, cystocele HPI: Nan Bradford is a 47 year old year old female who presents today for a preop visit for abnl uterine bleeding, uterine prolapse and cystocele w/ MISTY. Menses are q month. Menses would last ~2 wks for the past several years. She would pass golf ball sized clots. She would saturate a pad 5-6 times an hr for ~1 day of her cycle. She has lower pelvic cramping and back pain w/ her cycles. She endorses feeling fatigued. More recently she has enjoyed menses that last only 3-4 days. She does not miss any cycles. She does endorse hot flashes, night sweats and mood swings. Of note, pt had her hgb checked per her PCP in 04/2022 and found to be 7.3g/dl. She has been seen per hematology and has undergone IV iron infusions. Her most recent hgb was 9.6 g/dl in 10/2022. Of note, pt w/ a h/o DM, HTN, hypothyroid and hyperlipidemia. She is s/p a BTL for control. Last seen per me on 09/03/22 w/ the following: Described as a lump the size of a golf ball per her vagina. Notes it more when she is standing. Also noting increase in MISTY sx. Leaks w/ coughing, sneezing, etc. H/o x 4. She underwent a pelvic u/s on 07/15/22 revealing: PROCEDURE: US PELVIS TRANSABD AND TRANSVAG HISTORY: h/o heavy menses and chronic blood loss anemia COMPARISON: None available. Reported LMP: 07/10/2022 FINDINGS: The right ovary is visualized only on transvaginal imaging. Uterus: Orientation: Anteverted. Size: 9.9 x 4.7 x 6.0 cm. Mass: None. Endometrium: Trace fluid is present in the endometrial canal. The double layer endometrial thickness measures 0.9 cm. Nabothian cysts are present. Ovaries: Right Ovary Measurement: 4.2 x 2.6 x 2.5 cm. Right Ovarian Finding: There is a complex cyst measuring 2.1 x 1.8 x 2.0 cm, likely hemorrhagic. There is an anechoic cyst measuring 3.5 x 1.9 x 3.2 cm. Left Ovary Measurement: 3.4 x 2.5 x 3.1 cm. Left Ovarian Finding: There is a complex cyst measuring 2.5 x 1.8 x 1.8 cm, likely hemorrhagic. Free Fluid: None. IMPRESSION: Bilateral ovarian cysts as described above. She had UDS done per Dr. Rodriguez in the urology dept on 10/27/22 and did leak on this exam. Options for treatment were d/w pt per myself and Dr. Rodriguez in detail including surgical management vs conservative options including pessary placement. She is not interested in pessary placement. She is desiring definitive therapy at this time. She is now scheduled for a da josé TLH w/ bilateral [place] followed with anterior repair and SSLF, along with synthetic sling per Dr. Rodriguez. Of note, pt has a h/o type 2 DM that is well controlled. Her last hgb A1C from 10/30/22 was 6.8%. OB History Para Term AB Living 4 4 4 0 0 4 SAB IAB Ectopic Molar Multiple Live Births 0 0 0 0 0 4 Obstetric Comments POBHX: x 4. PGYNHX: h/o menometrorrhagia for years. No STDs. No abnl pap. Past Medical History Past Medical History: Diagnosis Date Acquired hypothyroidism DM type 2 with diabetic mixed hyperlipidemia (multi HCC) taking medication Hypercholesteremia Iron deficiency anemia due to chronic blood loss 04/23/2022 Primary hypertension taking medication Past Surgical History[]Expand by Default Past Surgical History: Procedure Laterality Date COLONOSCOPY WITH SNARE N/A 09/07/2022 Performed by Keshawn Jones MD at [facility] TUBAL LIGATION UPPER GI ENDOSCOPY, BIOPSY N/A 09/07/2022 Performed by Keshawn Jones MD at [facility] Current Outpatient Medications on File Prior to Visit Medication Sig Dispense Refill Esomeprazole Magnesium (NexIUM) 40 MG oral Delayed Release Capsule Take 1 capsule (40 mg total) by mouth 2 times daily for 14 days 28 capsule 0 [] Metronidazole (Flagyl) 500 MG oral Tablet Take 1 tablet (500 mg total) by mouth 2 times daily for 14 days 28 tablet 0 Aspirin 81 MG oral Tablet Delayed Response Take 1 tablet every day by oral route. Atorvastatin Calcium (Lipitor) 10 MG oral Tablet Take 1 tablet (10 mg total) by mouth nightly. 90 tablet 3 Carvedilol (Coreg) 3.125 MG oral Tablet Take 1 tablet (3.125 mg total) by mouth in the morning and 1 tablet (3.125 mg total) in the evening. Take with meals. 180 tablet 0 Gabapentin 100 MG oral Capsule Take 1 capsule (100 mg total) by mouth 2 times daily as needed (pain). 60 capsule 2 glipiZIDE 10 MG oral Tablet Take 1 tablet (10 mg total) by mouth in the morning and 1 tablet (10 mg total) in the evening. Take before meals. 180 tablet 3 Lansoprazole 30 MG oral Delayed Release Capsule Take 1 capsule (30 mg total) by mouth daily 30 capsule 2 Latanoprost 0.005 % ophthalmic Solution Place 1 drop into both eyes nightly. 2.5 mL 3 Levothyroxine Sodium 75 MCG oral Tablet Take 1 tablet (75 mcg total) by mouth daily 90 tablet 1 Na Sulfate-K Sulfate-Mg Sulf (SUPREP BOWEL PREP KIT) 17.5-3.13-1.6 GM/177ML oral Solution Instructions provided to patient. Follow instructions provided by provider. 1 kit 0 Ondansetron HCl 4 MG oral Tablet Take 1 tablet (4 mg total) by mouth every 8 hours as needed for nausea 15 tablet 0 Sitagliptin Phosphate (Januvia) 50 MG oral Tablet Take 1 tablet (50 mg total) by mouth daily 90 tablet 3 Current Facility-Administered Medications on File Prior to Visit Medication Dose Route Frequency Provider Last Rate Last Admin [COMPLETED] Bevacizumab (AVASTIN) 100 mg/4 mL - Physician Administered ([id number]) 1.25 mg Physician Administered Once Gideon Rodriguez MD 1.25 mg at 10/30/22 1419 Allergies Allergen Reactions Hydrocodone Other reaction(s): Nausea/Vomiting Other reaction(s): Not available Social History Socioeconomic History Marital status: Single Spouse name: Not on file Number of children: 4 Years of education: Not on file Highest education level: 8th grade Occupational History 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 Tobacco Use Smoking status: Former Types: E-cigarettes Quit date: 06/08/2022 Years since quittin.4 Smokeless tobacco: Never Vaping Use Vaping Use: Every day Substances: Nicotine-salt Substance and Sexual Activity Alcohol use: Not Currently Drug use: Never Sexual activity: Yes Partners: Male control/protection: Tubal Ligation Other Topics Concern Not on file Social History Narrative Not on file Social Determinants of Health Financial Resource Strain: Not on file Food Insecurity: Not on file Transportation Needs: Not on file Physical Activity: Not on file Stress: Not on file Social Connections: Not on file Intimate Partner Violence: Not on file Housing Stability: Not on file BP 146/76 (Side: Right Arm, Position: SITTING, Cuff Size: Medium Adult) | Pulse 82 | Resp 18 | Ht 4' 11" | Wt 147 lb 12.8 oz | LMP 10/05/2022 (Exact Date) | BMI 29.85 kg/m? Contraception: BTL Nan is well developed, normal habitus, with no acute distress. Breast:exam deferred Abdomen:benign, soft, non-tender and no masses or organomegaly Pelvic: Vulva- No lesions, no rashes, well estrogenized Urethra- Normal Vagina- normal, well estrogenized. 3rd degree cystocele noted. Cervix- Normal, No cervical motion tenderness and w/ 2nd degree descensus (3rd degree w/ valsalva). Uterus- NSSPM (normal shape, size, position, mobile), Anteverted, anteflexed and non-tender Adnexae- no masses, non-tender Perineum- Normal A/P: abnl uterine bleeding, pelvic organ prolapse, cystocele and MISTY - Pt scheduled for a da josé TLH w/ bilateral salpingectomy on 03/02/23 at [facility] in [facility] [place] followed with anterior repair and SSLF, along with synthetic sling per Dr. Rodriguez. - all risks and benefits d/w pt including [...] w/ hormone replacement. Possible uncontrollable leakage of urine. - she is aware of the ~1% lifetime risk for ovarian CA w/ ovarian preservation. - she is also aware of possible need for re-operation for removal of her ovaries in the future. - pt understands above risks and desires procedure to proceed. - all questions answered. Pt's pain meds escribed today (norco and motrin). [facility]
--- NOTE | 2024-02-01 12:47 | RAD REPORT ---
Procedure: Chest Single View HISTORY: Shortness of breath COMPARISON: March 2023 FINDINGS: The lungs appear clear of acute infiltrate. No significant pleural effusion noted. The heart is normal size. IMPRESSION: No acute abnormality is displayed.
[2024-02-01 13:42] LABS: Absolute Eosinophils 0.1 K/uL (0-0.5); Absolute Monocytes 0.7 K/uL (0.1-1.3); Absolute Neutrophil 5.6 K/uL (1.8-8.0); Basophils % 0.4 % (0-1.3); Eosinophils % 1.2 % (0-4.4); Hematocrit 31.5 % (36.0-45.0); Hemoglobin 10.4 g/dL (12.0-15.0); Lymphocytes % 31.7 % (15.3-44.8); MCH 31.2 pg (27.0-35.0); MCV 94.6 fL (80-100); Neutrophils % 59.7 % (41.7-73.7); Platelets 402 thou/uL (152-406); RBC Red Blood Cell Count 3.33 M/uL (3.86-4.86); Red Cell Distribution Width 12.2 % (12.1-15.2)
[2024-02-01 14:04] LABS: PT Prothrombin Time 11.6 SECONDS (9.4-12.5); Protime INR 1.04
[2024-02-01 14:13] LABS: ALT/SGPT 26 U/L (13-56); AST/SGOT 18 U/L (15-37); Albumin/Globulin Ratio 0.7 (1.1-1.8); Alkaline Phosphatase 80 U/L (45-117); Anion Gap 12.8 mEq/L (5.0-15.0); BUN Blood Urea Nitrogen 44 mg/dL (7-18); Bicarbonate 23 mEq/L (21-32); Bilirubin Total 0.2 mg/dL (0.2-1.0); Globulin 4.4 g/dL (2.3-3.5); Glomerular Filtration Rate 11 ml/min (=/>90); Glucose Level 185 mg/dL (74-106); Lipase 62 U/L (13-75); Magnesium 1.8 mg/dL (1.6-2.4); NT PRO-BNP 416 pg/mL (<125); Protein, Total 7.4 g/dL (6.4-8.2); Sodium Level 138 mEq/L (136-145); Troponin High Sensitivity 4.4 pg/mL (<58.9)
[2024-02-01 14:15] LABS: Specific Gravity 1.015 (1.005-1.030); Sqamous Epithelial <5 /HPF (None Seen); Urine Bacteria <20 /HPF (<20); Urine Bilirubin NEGATIVE (Negative); Urine Blood Negative (Negative); Urine Clarity Clear (Clear); Urine Color Colorless (Yellow); Urine Culture Reflex Order NOT NEEDED; Urine Glucose 2+ (Negative); Urine Ketones NEGATIVE (Negative); Urine Microscopic Reflex YN ORDER UMIC; Urine Mucus Slight /HPF (None Seen); Urine Nitrite NEGATIVE (Negative); Urine Protein 3+ (Negative); Urine RBC <5 /HPF (None Seen); Urine Urobilinogen Normal (Normal)
[2024-02-01 14:16] LABS: Bilirubin Direct < 0.2 mg/dL (0-0.2)
[2024-02-01 14:18] LABS: Potassium 6.8 mEq/L (3.5-5.1)
--- NOTE | 2024-02-01 14:39 | EDPHYS ---
Physician Documentation [facility] Name: Elsy Bradford Age: 49 yrs Sex: Female : 1975 Arrival Date: 02/01/2024 Time: 11:10 Bed 8 Private MD: ED Physician Thompson Castro HPI: 01/31 14:25 This 49 yrs old Female presents to ER via Ambulatory with complaints of rosalina Abnormal Lab Results. 14:25 sent by [facility] potassium 7.0 , repeat 6.8. Onset: The symptoms/episode began/occurred rosalina at an unknown time. Severity of symptoms: At their worst the symptoms were moderate in the emergency department the symptoms are unchanged. The patient has not experienced similar symptoms in the past. 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 - Infectious Disease History:: Denies. - Social history:: Smoking status: Reported history of juuling and/or vaping. - Family history:: not pertinent. ROS: 14:25 Constitutional: Negative for fever, chills, and weight loss, Eyes: Negative for injury, rosalina pain, redness, and discharge, ENT: Negative for injury, pain, and discharge, Neck: Negative for injury, pain, and swelling, Cardiovascular: Negative for chest pain, palpitations, and edema, Respiratory: Negative for shortness of breath, cough, wheezing, and pleuritic chest pain, Abdomen/GI: Negative for abdominal pain, nausea, vomiting, diarrhea, and constipation, Back: Negative for injury and pain, : Negative for injury, bleeding, discharge, and swelling, MS/Extremity: Negative for injury and deformity, Skin: Negative for injury, rash, and discoloration, Psych: Negative for depression, anxiety, suicide ideation, homicidal ideation, and hallucinations, Allergy/Immunology: Negative for hives, rash, and allergies, Endocrine: Negative for neck swelling, polydipsia, polyuria, polyphagia, and marked weight changes, Hematologic/Lymphatic: Negative for swollen nodes, abnormal bleeding, and unusual bruising, 14:25 Neuro: Positive for weakness, Exam: 14:25 Constitutional: This is a well developed, well nourished patient who is awake, alert, rosalina and in no acute distress. Head/Face: Normocephalic, atraumatic. Eyes: Pupils equal round and reactive to light, extra-ocular motions intact. Lids and lashes normal. Conjunctiva and sclera are non-icteric and not injected. Cornea within normal limits. Periorbital areas with no swelling, redness, or edema. ENT: Nares patent. No nasal discharge, no septal abnormalities noted. Tympanic membranes are normal and external auditory canals are clear. Oropharynx with no redness, swelling, or masses, exudates, or evidence of obstruction, uvula midline. Mucous membranes moist. Neck: Trachea midline, no thyromegaly or masses palpated, and no cervical lymphadenopathy. Supple, full range of motion without nuchal rigidity, or vertebral point tenderness. No Meningismus. Chest/axilla: Normal chest wall appearance and motion. Nontender with no deformity. No lesions are appreciated. Cardiovascular: Regular rate and rhythm with a normal S1 and S2. No gallops, murmurs, or rubs. Normal PMI, no JVD. No pulse deficits. Respiratory: Lungs have equal breath sounds bilaterally, clear to auscultation and percussion. No rales, rhonchi or wheezes noted. No increased work of breathing, no retractions or nasal flaring. Abdomen/GI: Soft, non-tender, with normal bowel sounds. No distension or tympany. No guarding or rebound. No evidence of tenderness throughout. Back: No spinal tenderness. No costovertebral tenderness. Full range of motion. Skin: Warm, dry with normal turgor. Normal color with no rashes, no lesions, and no evidence of cellulitis. MS/ Extremity: Pulses equal, no cyanosis. Neurovascular intact. Full, normal range of motion., bilateral aka Neuro: Awake and alert, GCS 15, oriented to person, place, time, and situation. Cranial nerves II-XII grossly intact. Motor strength 5/5 in all extremities. Sensory grossly intact. Cerebellar exam normal. Normal gait. Psych: Awake, alert, with orientation to person, place and time. Behavior, mood, and affect are within normal limits. 14:25 ECG was reviewed by the Attending Physician. Vital Signs: 11:50 BP 139 / 81; Pulse 58; Resp 16; Temp 98.2(O); Pulse Ox 100% on R/A; Weight 67.59 kg; hb Height 4 ft. 11 in. ; Pain 8/10; 15:12 BP 169 / 85; Pulse 66; Resp 16; Pulse Ox 100% ; ll1 18:21 BP 151 / 91; Pulse 84; Resp 16; Pulse Ox 100% on R/A; ll1 11:50 Body Mass Index 30.09 (67.59 kg, 149.86 cm) hb 11:50 Pain Scale: Adult hb MDM: 11:26 Medical Screening Exam initiated rosalina 14:29 Differential Diagnosis malaise. Data reviewed: vital signs, nurses notes, lab test rosalina result(s), EKG, radiologic studies, plain films. Consideration of Admission/Observation Patient was admitted/placed on observation. Escalation of care including admission/observation considered. I considered the following discharge prescriptions or medication management in the emergency department Medications were administered in the Emergency Department. See MAR. Independent interpretation of the following test(s) in the Emergency Department EKG: See my EKG interpretation above X-Ray: My interpretation is cxr. Test considered but Not performed: Ultrasound no renal usg. Historians other than the Patient: pt well informed , dr torres. Care significantly affected by the following chronic conditions: Diabetes, Hypertension, Chronic Kidney Disease, high cholesterol. Counseling: I had a detailed discussion with the patient and/or guardian regarding the historical points, exam findings, and any diagnostic results supporting the discharge/admit diagnosis, lab results, radiology results, the need for further work-up and treatment in the hospital. 01/31 11:27 Order name: Basic Metabolic Panel; Complete Time: 14:18 rosalina 01/31 11:27 Order name: CBC with Diff; Complete Time: 14:13 rosalina 01/31 11:27 Order name: LFT's; Complete Time: 14:18 rosalina 01/31 11:27 Order name: Magnesium; Complete Time: 14:18 rosalina 01/31 11:27 Order name: NT PRO-BNP; Complete Time: 14:18 rosalina 01/31 11:27 Order name: PT-INR; Complete Time: 14:13 rosalina 01/31 11:27 Order name: Troponin HS; Complete Time: 14:18 [facility] 01/31 11:27 Order name: Lipase; Complete Time: 14:18 [facility] 01/31 11:27 Order name: Urinalysis w/ reflexes; Complete Time: 14:18 [facility] 01/31 15:48 Order name: Basic Metabolic Panel EDMS 01/31 15:48 Order name: Basic Metabolic Panel EDMS 01/31 15:48 Order name: CBC with Automated Diff EDMS 01/31 15:48 Order name: CBC with Automated Diff EDMS 01/31 15:48 Order name: Magnesium EDMS 01/31 15:48 Order name: Magnesium EDMS 01/31 15:48 Order name: Phosphorus EDMS 01/31 15:48 Order name: Phosphorus EDMS 01/31 15:48 Order name: Troponin High Sensitivity EDMS 01/31 15:48 Order name: Troponin High Sensitivity EDMS 01/31 15:48 Order name: Troponin High Sensitivity EDMS 01/31 15:48 Order name: Phosphorus EDMS 01/31 16:13 Order name: BMP [facility] 01/31 17:36 Order name: Basic Metabolic Panel; Complete Time: 18:01 [facility] 01/31 11:27 Order name: XRAY Chest (1 view); Complete Time: 13:36 [facility] 01/31 11:27 Order name: Cardiac monitoring; Complete Time: 15:00 [facility] 01/31 11:27 Order name: EKG - Nurse/Tech; Complete Time: 15:00 [facility] 01/31 11:27 Order name: IV Saline Lock; Complete Time: 15:00 [facility] 01/31 11:27 Order name: Labs collected and sent; Complete Time: 15:00 [facility] 01/31 11:27 Order name: O2 Per Protocol; Complete Time: 15:00 [facility] 01/31 11:27 Order name: O2 Sat Monitoring; Complete Time: 15:00 [facility] EC:25 Rate is 60 beats/min. Rhythm is regular. QRS [place] is Normal. [place] interval is normal. QRS rosalina interval is normal. QT interval is normal. No Q waves. T waves are Peaked. No ST changes noted. Clinical impression: Suggests hyperkalemia. Interpreted by me. Reviewed by me. Administered Medications: 14:21 CANCELLED (Duplicate Order): calcium gluconate1 grams IVPB once over 30 mins; (mix in [facility] NS 100 mL) 14:24 CANCELLED (Duplicate Order): ns 0.9% 500 ml 500 ml IV at 1 bolus once; to be given as a rosalina bolus over 30 minutes 14:59 Drug: Albuterol Inhalation 5 mg Inhalation once Route: Inhalation; hb 18:28 Follow up: Response: No adverse reaction ll1 14:59 Drug: D50W IVP 50 ml IVP once; (1 amp) Route: IVP; Site: left antecubital; 18:27 Follow up: Response: No adverse reaction ll1 14:59 Drug: Calcium Gluconate IVPB 1 grams IVPB once over 10 mins; (mix in NS 100 mL) Route: hb IVPB; Infused Over: 10 mins; Site: left antecubital; 18:27 Follow up: Response: No adverse reaction; IV Status: Completed infusion; IV Intake: ll1 100ml 14:59 Drug: NS 0.9% IV 1000 ml IV at 1000 ml once; to be given as a bolus over 60 minutes hb Route: IV; Rate: 1000 ml; Site: left antecubital; 18:27 Follow up: Response: No adverse reaction; IV Status: Completed infusion; IV Intake: ll1 600ml 14:59 Drug: Furosemide IVP 80 mg IVP once; give over 2 minutes Route: IVP; Site: left antecubital; 18:26 Follow up: Response: No adverse reaction ll1 15:01 Drug: Kayexalate PO 60 grams PO once Route: PO; tm6 18:27 Follow up: Response: No adverse reaction ll1 15:01 Drug: Insulin Regular Human IVP 10 units IVP once {Co-Signature: (Roberta Kam tm6 RN).} Route: IVP; Site: left antecubital; 18:27 Follow up: Response: No adverse reaction ll1 Disposition Summary: 02/01/24 14:38 Hospitalization Ordered Notes: Hospitalization Status: Inpatient Admission rosalina Provider: Clifton Dwyer cha Condition: Guarded rosalina Problem: new rosalina Symptoms: have improved rosalina Bed/Room Type: Standard rosalina Location: Telemetry/MedSurg (Inpatient)(02/01/24 17:47) jl7 Room Assignment: [facility](02/01/24 17:47) jl7 Diagnosis - Weakness rosalina - Acute kidney failure, unspecified - on Chronic rosalina - Abnormal electrocardiogram [ECG] [EKG] - peaked T waves rosalina - Hyperkalemia - 7.0, repeat 6.8 rosalina Forms: - Medication Reconciliation Form rosalina - SBAR form rosalina - Leadership Thank You Letter rosalina Signatures: Dispatcher [employer] EDThompson Ng MD MD cha Baxter, Heather, RN RN Antonio Scott RN RN jl7 Júnior Andres RN RN tm6 Kristine Collier RN ll1 Roberta Kam RN Corrections: (The following items were deleted from the chart) 11:28 11:28 BASIC METABOLIC PANEL+C.LAB.BRZ ordered. EDMS EDMS 11:28 11:28 CBC+H.LAB.BRZ ordered. EDMS EDMS 11:28 11:28 HEPATIC FUNCTION+C.LAB.BRZ ordered. EDMS EDMS 11:28 11:28 MAGNESIUM+C.LAB.BRZ ordered. EDMS EDMS 11:28 11:28 PROBNP+C.LAB.BRZ ordered. EDMS EDMS 11:28 11:28 PROTIME (+INR)+COAG.LAB.BRZ ordered. EDMS EDMS 11:28 11:28 Troponin High Sensitivity+C.LAB.BRZ ordered. EDMS EDMS 11:28 11:28 LIPASE+C.LAB.BRZ ordered. EDMS EDMS 11:28 11:28 Chest Single View+RAD.RAD.BRZ ordered. EDMS EDMS 11:28 11:28 Urinalysis+U.LAB.BRZ ordered. EDMS EDMS 14:21 11:27 Calcium Gluconate IVPB 1 grams IVPB once over 30 mins; (mix in NS 100 mL) rosalina ordered. rosalina 14:24 11:27 NS 0.9% IV 500 ml 500 ml IV at 1 bolus once; to be given as a bolus over 30 rosalina minutes ordered. rosalina 17:46 14:38 Telemetry/MedSurg (Inpatient) rosalina jl7 17:46 14:38 rosalina jl7 17:47 17:46 [facility] ER HOLD jl jl 17:47 17:46 ERHOLD- [facility]
--- NOTE | 2024-02-01 14:39 | ER ---
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 Coronavirus screen: At this time, the client does not indicate any symptoms associated with coronavirus-19. Ebola Screen: No symptoms or risks identified at this time. Initial Sepsis Screen: Does the patient meet any 2 criteria? No. Patient's initial sepsis screen is negative. Does the patient have a suspected source of infection? No. Patient's initial sepsis screen is negative. Risk Assessment: Do you want to hurt yourself or someone else? Patient reports no desire to harm self or others. Onset of symptoms was February 01, 2024. 11:50 Method Of Arrival: Ambulatory hb 11:50 Acuity: ALIN 3 hb Triage Assessment: 18:25 General: Appears in no apparent distress. Behavior is calm, cooperative, appropriate ll1 for age. 18:26 Pain: Denies pain. 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 - Infectious Disease History:: Denies. - Social history:: Smoking status: Reported history of juuling and/or vaping. - Family history:: not pertinent. Screenin:14 [facility] ED Fall Risk Assessment (Adult) History of falling in the last 3 months, ll1 including since admission No falls in past 3 months (0 pts) Confusion or Disorientation No (0 pts) Intoxicated or Sedated No (0 pts) Impaired Gait No (0 pts) Mobility Assist Device Used No (0 pt) Altered Elimination No (0 pt) Score/Fall Risk Level 0 - 2 = Low Risk Maintained a safe environment, Hourly rounding (assess needs \T\ fall precautionary measures) done. Abuse screen: Denies threats or abuse. Nutritional screening: No deficits noted. Tuberculosis screening: No symptoms or risk factors identified. Assessment: 14:55 Reassessment: moved to exam #8. ll1 15:13 Reassessment: No changes from previously documented assessment. Patient and/or family ll1 updated on plan of care and expected duration. Pain level reassessed. Patient is alert, oriented x 3, equal unlabored respirations, skin warm/dry/pink. Vital Signs: 11:50 BP 139 / 81; Pulse 58; Resp 16; Temp 98.2(O); Pulse Ox 100% on R/A; Weight 67.59 kg; hb Height 4 ft. 11 in. ; Pain 8/10; 15:12 BP 169 / 85; Pulse 66; Resp 16; Pulse Ox 100% ; ll1 18:21 BP 151 / 91; Pulse 84; Resp 16; Pulse Ox 100% on R/A; ll1 11:50 Body Mass Index 30.09 (67.59 kg, 149.86 cm) hb 11:50 Pain Scale: Adult hb ED Course: 11:16 Patient arrived in ED. al6 11:26 Thompson Castro MD is Attending Physician. rosalina 11:51 Triage completed. hb 11:52 Arm band placed on. hb 12:38 XRAY Chest (1 view) In Process Unspecified. EDMS 13:33 Initial lab(s) drawn, by me, sent to lab. EKG done, by ED staff. Inserted saline lock: tm3 22 gauge in left forearm, using aseptic technique. 14:17 Antonio Scott, RN is Primary Nurse. jl7 14:17 Notified ED physician of a critical lab result(s). potassium 6.8. jl7 14:37 Clifton Dwyer is Hospitalizing Provider. rosalina 14:55 Patient placed in an exam room, on a stretcher. ll1 15:12 Primary Nurse role handed off by Antonio Scott, RN ll1 15:12 Kristine Collier RN is Primary Nurse. ll1 15:14 Patient has correct armband on for positive identification. Bed in low position. Call 1 light in reach. Provided Education on: ER procedures and process. Client placed on continuous cardiac and pulse oximetry monitoring. NIBP monitoring applied. monitoring and evaluation advisor on. 18:25 No provider procedures requiring assistance completed. Patient admitted, IV remains in ll1 place. Administered Medications: 14:21 CANCELLED (Duplicate Order): calcium gluconate1 grams IVPB once over 30 mins; (mix in rosalina NS 100 mL) 14:24 CANCELLED (Duplicate Order): ns 0.9% 500 ml 500 ml IV at 1 bolus once; to be given as a rosalina bolus over 30 minutes 14:59 Drug: Albuterol Inhalation 5 mg Inhalation once Route: Inhalation; hb 18:28 Follow up: Response: No adverse reaction ll1 14:59 Drug: D50W IVP 50 ml IVP once; (1 amp) Route: IVP; Site: left antecubital; 18:27 Follow up: Response: No adverse reaction ll1 14:59 Drug: Calcium Gluconate IVPB 1 grams IVPB once over 10 mins; (mix in NS 100 mL) Route: hb IVPB; Infused Over: 10 mins; Site: left antecubital; 18:27 Follow up: Response: No adverse reaction; IV Status: Completed infusion; IV Intake: ll1 100ml 14:59 Drug: NS 0.9% IV 1000 ml IV at 1000 ml once; to be given as a bolus over 60 minutes Route: IV; Rate: 1000 ml; Site: left antecubital; 18:27 Follow up: Response: No adverse reaction; IV Status: Completed infusion; IV Intake: ll1 600ml 14:59 Drug: Furosemide IVP 80 mg IVP once; give over 2 minutes Route: IVP; Site: left antecubital; 18:26 Follow up: Response: No adverse reaction ll1 15:01 Drug: Kayexalate PO 60 grams PO once Route: PO; tm6 18:27 Follow up: Response: No adverse reaction ll1 15:01 Drug: Insulin Regular Human IVP 10 units IVP once {Co-Signature: kyle (Roberta Kam tm6 RN).} Route: IVP; Site: left antecubital; 18:27 Follow up: Response: No adverse reaction [facility] Medication: 15:14 VIS not applicable for this client. ll1 Intake: 18:27 IV: 600ml; Total: 600ml. ll1 18:27 IV: 100ml; Total: 700ml. ll1 Outcome: 14:38 Decision to Hospitalize by Provider. rosalina 18:17 Admitted to Med/surg accompanied by tech, via wheelchair, room 211, with chart, Report ll1 called to faxed to 2nd floor 18:26 Condition: stable ll1 18:51 Patient left the ED. ll1 Signatures: Dispatcher [employer] EDLuis M Mart tm3 Thompson Castro MD MD cha Baxter, Heather, RN RN Antonio Scott RN RN jl7 Kristine Collier RN RN ll1 Júnior Andres RN RN tm6 Leyla Erwin al6 Roberta Kam RN
[2024-02-01] MEDS ORDERED: CALCIUM GLUCONATE 1 GM IVPB 1 GM/50 ML BAG IV ONE (14:44)
[2024-02-01] MEDS ORDERED: FUROSEMIDE 100 MG/10 ML VIAL IV ONE (14:44)
[2024-02-01] MEDS ORDERED: D50W 25 GM/50 ML SYRINGE IV ONE (14:45)
[2024-02-01] MEDS ORDERED: NA CHLORIDE 0.9% 1,000 ML ONE (14:45)
[2024-02-01] MEDS ORDERED: SOD POLYSTYREN SUL 15 GM/60 ML UCUP ONE (14:45)
[2024-02-01] MEDS ORDERED: ALBUTEROL 2.5 MG/3 ML NEB SOL ONE (14:46)
[2024-02-01] MEDS ORDERED: INSULIN REGULAR (HUMAN) 100 UNIT/ML ONE (14:47)
--- NOTE | 2024-02-01 14:57 | P.HP ---
Certification for Inpatient Patient admitted to: Observation With expected LOS: <2 Midnights Patient will require the following post-hospital care: None Practitioner: I am a practitioner with admitting privileges, knowledge of patient current condition, hospital course, and medical plan of care. Services: Services provided to patient in accordance with Admission requirements found in Title 42 Section 412.3 of the Code of Federal Regulations Patient History Date of Service: 02/01/24 Reason for admission: Hyperkalemia History of Present Illness: Elsy Tong is a 49 year old female with Pmhx HTN, HLD, DM, hypothyroidism, GERD, CKD IV who presents to the ED with hyperkalemia. She reports Dr. Matthews's office called her with about her lab results and requested her to come to the ED. Redraw in the ED, K 6.8, BUN/creatinine 44/4.48, GFR 11, serum glucose 185. medications administered in the ED: Lasix, calcium gluconate, albuterol, Kayexalate, insulin. EKG showing peaked T waves. Sanchez denies palpitations, chest pain, but reports weakness. Sanchez will be admitted to hospitalist service for further treatment of hyperkalemia, Dr. Matthews consulted. Allergies No Known Allergies Allergy (Verified 03/02/23 11:29) Home Medications: Glipizide [Glucotrol Xl] 10 mg PO DAILY 04/10/22 Atorvastatin Calcium [Lipitor*] 10 mg PO BEDTIME 03/01/23 Duloxetine HCl 20 mg PO DAILY 03/01/23 Levothyroxine Sodium 1 tab PO DAILY 03/01/23 Sitagliptin Phosphate [Januvia] 50 mg PO DAILY 03/01/23 Ondansetron [Zofran (Odt)*] 4 mg PO Q6H PRN #20 tab 03/03/23 Amlodipine [Norvasc*] 5 mg PO DAILY #30 tab 03/13/23 Pantoprazole [Protonix Tab*] 40 mg PO BID #60 tab 03/13/23 Sucralfate [Carafate*] 1 gm PO ACHS #120 tab 03/13/23 carvediloL [Coreg*] 25 mg PO BID 6AM 6PM tab 03/13/23 Metoclopramide [Reglan] 5 mg PO TID 14 Days #42 tab 04/07/23 Spironolactone [Aldactone*] 25 mg PO DAILY #30 tab 04/07/23 hydroCHLOROthiazide [Hydrochlorothiazide*] 12.5 mg PO DAILY #30 cap 04/07/23 traMADol HCL [Ultram*] 50 mg PO Q6H PRN #15 tab 04/07/23 - Past Medical/Surgical History Diabetic: Yes -: DM II -: HLD -: CKD IV with Proteinuria (Dr. Kennedy/ Dr. 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 - Family History Sister -: Diabetes Mother -: Diabetes - Social History Smoking Status: Current some day smoker Alcohol use: No CD- Drugs: No Caffeine use: Yes Review of Systems General: Weakness Musculoskeletal: Back Pain Physical Examination - Physical Exam General: Alert, In no apparent distress, Oriented x3 HEENT: Atraumatic, Normocephalic, PERRLA Neck: Supple, 2+ carotid pulse no bruit Respiratory: Clear to auscultation bilaterally, Normal air movement Cardiovascular: No edema, Regular rate/rhythm, Normal S1 S2 Capillary refill: <2 Seconds Gastrointestinal: Normal bowel sounds, Soft and benign - Studies Laboratory Data (last 24 hrs) 02/01/24 02/01/24 02/01/24 13:30 13:30 13:30 WBC 9.40 Hgb 10.4 L Hct 31.5 L Plt Count 402 PT 11.6 INR 1.04 Sodium 138 Potassium 6.8 H* BUN 44 H Creatinine 4.48 H Glucose 185 H Magnesium 1.8 Total Bilirubin 0.2 AST 18 ALT 26 Alkaline Phosphatase 80 Lipase 62 Assessment and Plan - Plan Assessment and plan Chronic kidney disease stage IV with proteinuria Hyperkalemia Abnormal EKG -EKG with T wave peaked, serial EKG -Continuous telemetry -Consult Alroumoh -Kayexalate, calcium gluconate, albuterol, Lasix, insulin given in the ED -BUN/creatinine 44/4.48, GFR 11, potassium 6.9 -Redraw potassium tonight Diabetes mellitus with CKD -Accu-Chek with sliding scale insulin -Serum glucose 185 Hypertension Hypothyroidism GERD Hypercholesterolemia -Continue home medication DVT PPx heparin Full code LOS 2 days - Advance Directives Does patient have a Living Will: Yes Does patient have a Durable POA for Healthcare: No
[2024-02-01] MEDS ORDERED: D50W 25 GM/50 ML SYRINGE IV PRN (15:40)
[2024-02-01] MEDS ORDERED: ACETAMINOPHEN 325 MG TABLET PO PRN (15:40)
[2024-02-01] MEDS ORDERED: GLUCAGON 1 MG/VIAL IV PRN (15:40)
[2024-02-01] MEDS ORDERED: ONDANSETRON 4 MG/2 ML VIAL IV PRN (15:40)
[2024-02-01] MEDS ORDERED: D10W 125 ML IV PRN (16:01)
[2024-02-01] MEDS: INSULIN REGULAR (HUMAN) 100 UNIT/ML SQ SCH (16:30)
[2024-02-01] MEDS: HEPARIN 5000 UNIT/ML 1 ML VIAL SQ SCH (17:00)
[2024-02-01 17:34] LABS: Anion Gap 10.3 mEq/L (5.0-15.0); Potassium 5.3 mEq/L (3.5-5.1)
[2024-02-01 19:18] VITALS: O2SAT 100
[2024-02-01 19:43] VITALS: BMI 29.7
[2024-02-01] MEDS: NA CHLORIDE 0.9% 1,000 ML IV SCH (20:21)
[2024-02-01] MEDS: SODIUM ZIRCONIUM CYCLOSILICATE 10 GM/PKT PO ONE (20:21)
[2024-02-01 22:00] LABS: Phosphorus 3.7 mg/dL (2.5-4.9); Potassium 5.5 mEq/L (3.5-5.1); Troponin High Sensitivity 7.3 pg/mL (<58.9)
[2024-02-02 05:10] VITALS: TEMP 98.1
[2024-02-02 06:17] LABS: Absolute Eosinophils 0.1 K/uL (0-0.5); Absolute Lymphocytes (CBC) 3.9 K/uL (0.7-4.9); Absolute Monocytes 0.6 K/uL (0.1-1.3); Absolute Neutrophil 4.2 K/uL (1.8-8.0); Basophils % 0.4 % (0-1.3); Eosinophils % 1.5 % (0-4.4); Hematocrit 26.2 % (36.0-45.0); Hemoglobin 9.1 g/dL (12.0-15.0); Lymphocytes % 43.8 % (15.3-44.8); MCH 32.3 pg (27.0-35.0); MCHC 34.6 g/dL (32.0-36.0); MCV 93.3 fL (80-100); MPV 8.1 fL (7.6-11.3); Monocytes % 7.3 % (3.3-12.3); Platelets 355 thou/uL (152-406); RBC Red Blood Cell Count 2.81 M/uL (3.86-4.86); Red Cell Distribution Width 12.1 % (12.1-15.2)
[2024-02-02 06:38] LABS: Anion Gap 8.5 mEq/L (5.0-15.0); Magnesium 1.5 mg/dL (1.6-2.4); Phosphorus 4.1 mg/dL (2.5-4.9); Potassium 4.5 mEq/L (3.5-5.1)
[2024-02-02] MEDS: SODIUM BICARB 325 MG TAB PO SCH (08:28)
[2024-02-02] MEDS: LEVOTHYROXINE SOD 0.075 MG TAB PO SCH (08:28)
[2024-02-02 08:39] VITALS: BP 152/89
--- NOTE | 2024-02-02 10:30 | P.DS ---
Admission Date: 02/01/24 Discharge Date: 02/02/24 Disposition: ROUTINE DISCHARGE Discharge Condition: GOOD Reason for Admission: Hyperkalemia Brief History of Present Illness: Diagnosis Chronic kidney disease stage IV with proteinuria Hyperkalemia Abnormal EKG Diabetes mellitus with CKD Hypertension Hypothyroidism GERD Hypercholesterolemia HPI 02/01/24 Elsy Tong is a 49 year old female with Pmhx HTN, HLD, DM, hypothyroidism, GERD, CKD IV who presents to the ED with hyperkalemia. She reports Dr. Matthews's office called her with about her lab results and requested her to come to the ED. Redraw in the ED, K 6.8, BUN/creatinine 44/4.48, GFR 11, serum glucose 185. medications administered in the ED: Lasix, calcium gluconate, albuterol, Kayexalate, insulin. EKG showing peaked T waves. Sanchez denies palpitations, chest pain, but reports weakness. Sanchez will be admitted to hospitalist service for further treatment of hyperkalemia, Dr. Matthews consulted. Hospital Course: Elsy Tong is a pleasant 49 year old female with a past medical history significant for HTN, HLD, DM, hypothyroidism, GERD, CKD IV who was admitted to the [facility] on 02/01/24 for Hyperkalemia. Elsy presented to the ED, sent from Dr. Matthews's office for abnormal potassium level. While in the ED, K 6.8. She tolerated treatment with Lasix, calcium gluconate, albuterol, Kayexalate, insulin, Lokelma. Potassium normalized at 4.5. Dr. Matthesw recommends discharge today and continue taking Lokelma daily, follow-up appointment in 2 weeks. No acute events overnight, telemetry showing normal sinus rhythm overnight. On 02/02/24, Elsy was seen on morning rounds and deemed medically stable for discharge. Elsy was discharged with instructions to schedule follow-up appointments with PCP and Dr. Matthews. Elsy was provided prescriptions for Lokelma. Physical Exam General: Alert and Oriented x3, NAD HEENT: Atraumatic, Normocephalic, PERRLA Neck: Supple, 2+ carotid pulse no bruit Respiratory: Clear to auscultation bilaterally, nonlabored breathing, on RA Cardiovascular: No edema, normal sinus rhythm, Normal S1 S2 Capillary refill: <2 Seconds Gastrointestinal: Normal bowel sounds, Soft and benign, and benign Vital Signs/Physical Exam: Temp Pulse Resp BP Pulse Ox 98.1 F 80 14 152/89 H 100 02/02/24 08:00 02/02/24 08:00 02/02/24 08:00 02/02/24 08:00 02/02/24 08:00 Laboratory Data at Discharge: WBC 8.90 thou/uL (4.3-10.9) 02/02/24 05:31 Hgb 9.1 g/dL (12.0-15.0) L D 02/02/24 05:31 Hct 26.2 % (36.0-45.0) L 02/02/24 05:31 Plt Count 355 thou/uL (152-406) 02/02/24 05:31 PT 11.6 SECONDS (9.4-12.5) 02/01/24 13:30 INR 1.04 02/01/24 13:30 Sodium 139 mEq/L (136-145) 02/02/24 05:31 Potassium 4.5 mEq/L (3.5-5.1) 02/02/24 05:31 BUN 44 mg/dL (7-18) H 02/02/24 05:31 Creatinine 4.47 mg/dL (0.55-1.02) H 02/02/24 05:31 Glucose 203 mg/dL (74-106) H 02/02/24 05:31 Phosphorus 4.1 mg/dL (2.5-4.9) 02/02/24 05:31 Magnesium 1.5 mg/dL (1.6-2.4) L 02/02/24 05:31 Total Bilirubin 0.2 mg/dL (0.2-1.0) 02/01/24 13:30 AST 18 U/L (15-37) 02/01/24 13:30 ALT 26 U/L (13-56) 02/01/24 13:30 Alkaline Phosphatase 80 U/L (45-117) 02/01/24 13:30 Lipase 62 U/L (13-75) 02/01/24 13:30 Home Medications: Atorvastatin Calcium [Lipitor*] 10 mg PO BEDTIME 03/01/23 Levothyroxine Sodium 1 tab PO DAILY 03/01/23 Sitagliptin Phosphate [Januvia] 25 mg PO DAILY 03/01/23 Ondansetron [Zofran (Odt)*] 4 mg PO Q6H PRN #20 tab 03/03/23 Sucralfate [Carafate*] 1 gm PO ACHS #120 tab 03/13/23 Aspirin 81 mg PO DAILY 02/01/24 Ergocalciferol (Vitamin D2) [Vitamin D2] 50,000 unit PO EVERY 7TH DAY 02/01/24 Gabapentin 100 mg PO DAILY PRN 02/01/24 Insulin Degludec [Tresiba] 12 units SQ DAILY 02/01/24 Latanoprost Ophth [Xalatan 0.005%*] 1 drop EACH EYE BEDTIME 02/01/24 Olmesartan Medoxomil 5 mg PO DAILY 02/01/24 Pantoprazole [Protonix Tab*] 40 mg PO DAILY 02/01/24 Sodium Bicarbonate 650 mg PO TID 02/01/24 carvediloL [Coreg*] 6.25 mg PO BIDWM 02/01/24 Sodium Zirconium Cyclosilicate [Lokelma] 10 gm PO 30 MIN BEFORE HS 30 Days #30 packet 02/02/24 New Medications: Sodium Zirconium Cyclosilicate [Lokelma] 10 gm PO 30 MIN BEFORE HS 30 Days #30 packet Physician Discharge Instructions: PROBLEM: High Potassium Level GOAL: Clear understanding of disease process INSTRUCTIONS: Diet: Renal diet included Activity: 1. Please call and schedule a follow-up appointment with your PCP in 3-5 days - Please follow-up with your PCP for medication refills/adjustments 2. Please call and schedule a follow-up appointment with Dr. Matthews in 2 weeks -One dose of Lokelma given prior to discharge -Continue taking Lokelma daily -Dr. Matthews has samples of Lokelma at his office if you are unable to pick it up from the pharmacy due to the Holidays. 3. Continue renal diet 4. No activity restrictions 5. Return to the ED if symptoms worsen New medications Lokelma daily x 30 days Followup: Adriano Agee DO [Primary Care Provider] - Sheryl Matthews MD [ACTIVE - CAN ADMIT] -
[2024-02-02] MEDS: SODIUM ZIRCONIUM CYCLOSILICATE 10 GM/PKT PO ONE (11:40)
--- NOTE | 2024-02-02 14:10 | CON ---
Date of Consultation: 02/02/2024 Reason For Consultation: Elevated BUN and creatinine, hyperkalemia. 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 The patient on her outpatient lab, found to have potassium 7.1. For that reason, referred to the ER and ER found to have potassium 6.8. The patient was receiving the co cktail consecutively. Potassium trending down to 4.5 today. The patient deny taking any extra suppl ement of potassium. No constipation. No fever. The patient supposed to be on Lokelma as out patien t, but apparently she is not taking it out patient. The patient's creatinine 4.4 with GFR 11. Potas sium was only 5.5 at that time, losartan was discontinued. Allergies: NO KNOWN DRUGS ALLERGY. Past Medical History: Includes: 1.Type 2 diabetes since 1999, complicated with neuropathy, retinopathy and nephropathy. 2.Hypertension. 3.Hyperlipidemia. 4.Hypothyroidism. 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 Home Medications: Include glipizide, atorvastatin, levothyroxine, Zofran, amlodipine, pantoprazole, carvedilol, metoclopramide, spironolactone, hydrochlorothiazide, tramadol. Past Surgical History: Include cholecystectomy. Family History: Positive for diabetes and hypertension. Social History: Active smoker. Denied alcohol. Denied drugs abuse. Review of Systems: Head and Neck: No red eye. GI: No nausea. No vomiting. : No polyuria. No dysuria. No hematuria. 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 Respiratory: No shortness of breath. Cardiovascular: No chest pain. Endocrine: No polydipsia. Skin: No rash. Neuro: Has neuropathy. Musculoskeletal: No joint pain. Physical Examination: Vital Signs: When I saw the patient, the patient was lying in bed with blood pressure of 152/89, pul se of 80, afebrile. Chest: Clear to auscultation. Heart: S1, S2. Regular. Abdomen: Soft, nontender. Extremities: No edema. Neurologic: Alert. No focality. Laboratory Data: Upon admission, WBC 9.4, hemoglobin 10.4. Sodium 138, potassium 6.8, bicarb 23, BU N 44, creatinine 4.4, GFR of 11, calcium 9.2. Today lab data; sodium 139, potassium 4.5, bicarb 24, BUN 44, creatinine 4.4, calcium 8.5, phosphorus 4.1, magnesium 1.5. Chest x-ray: No cardiomegaly, n o congestion. Assessment And Plan: 1.Advanced kidney disease with hyperkalemia. No uremic symptoms. No acidosis. I do not see the wa ed to initiate any renal replacement therapy. Hyperkalemia has been resolved. We will continue the patient on Lokelma, and we will follow up the patient as outpatient. I had long discussion with the patient regarding the low-potassium diet. 2.Keep holding ARB. Discontinue spironolactone. 3.Hyperkalemia secondary to advanced kidney disease and high potassium diet. Reinforce for the celio ent for low-potassium diet. We will continue Lokelma on a daily basis and we will follow up. I am g becky to go ahead and send for TSH. The patient cleared from the Renal stand point for discharge plan debbie. 4.Anemia of chronic kidney disease. No need for any transfusion. We will monitor. 5.Hypertension with the presence of hyperkalemia. Make sure olmesartan and spironolactone has been discontinued. 6.Diabetes, as by primary. Thank you Dr. Dwyer, for allowing us to participate in the care of your patient. Time spent examining the patient [id number], reviewing data, lab and radiology, placing order, disc ussing the case with the patient, discussing the case with the retail team member including hospitalist and nursing staff more than 75 minutes. ZEKE Voice ID: [id number] Report ID: [id number]
--- NOTE | 2024-02-04 13:44 | EKG ---
Test Date: 2024-02-01 Test Time: 13:37:38 Dynamite Shooter: SWETA MEASUREMENT RESULTS: Intervals: Rate: 60 AL: 140 QRSD: 74 QT: 404 QTc: 404 [place]: P: 31 AL: 140 QRS: 58 T: 5 INTERPRETIVE STATEMENTS: Normal sinus rhythm Inferior infarct, age undetermined Anterior infarct, age undetermined Abnormal ECG Compared to ECG 04/04/2023 15:22:55 No significant changes Electronically Signed On 02-04-24 13:37:54 SITE LEASING AGENT by Iban Paredes
== END 2024-02-02 11:50 | disposition home or self-care (01) ==
LOC: ER 11:10 → ERHOLD 15:40 → 2ND 18:44
PROVIDERS: ADMIT Internal Medicine; ATTEND Internal Medicine
DX: I12.9 Hypertensive chronic kidney disease with stage 1 through stage 4 chronic kidney disease, or unspecified chronic kidney disease (principal); R80.9 Proteinuria, unspecified; E87.5 Hyperkalemia; N18.4 Chronic kidney disease, stage 4 (severe); E78.5 Hyperlipidemia, unspecified; E03.9 Hypothyroidism, unspecified; K21.9 Gastro-esophageal reflux disease without esophagitis; F17.210 Nicotine dependence, cigarettes, uncomplicated; E78.00 Pure hypercholesterolemia, unspecified; E11.22 Type 2 diabetes mellitus with diabetic chronic kidney disease; E11.40 Type 2 diabetes mellitus with diabetic neuropathy, unspecified; D63.1 Anemia in chronic kidney disease; R94.31 Abnormal electrocardiogram [ECG] [EKG]
CPT/HCPCS: 96365; 93005; 85025 ×2; 81001; 80048 ×3; 36415; 83735 ×2; 84100 ×2; 84132 ×2; 85610; 82947 ×2; 80076; 84484 ×3; 83690; 83880; 71045; 96375; 99285; 96366; J1644 ×2; J0612; J7613; J7030 ×3; G0378 ×4

== ENCOUNTER 2024-02-05 09:53 | Emergency (ER) | payer OTHER ==
--- OUTSIDE RECORDS SUMMARY | 2024-02-05 10:00 | XMS REPORT | Continuity of Care Document ---
Author Name Unknown Address [address] [facility] [address] [place] [address] [facility] Address [address] [facility] [address] [place] [address] Care Team Providers Care Brand Ambassadors Promotional Sales Name Role Phone DAX HAMALLORIEADELASudha Primary Care Physician UnaMATEO Delgado Attending Clinician Unavailable IVIS HOOVER Attending Clinician Unavailable GIDEON RODRIGUEZ Attending Clinician Unavailable ADRIANO AGEE Attending Clinician Unavailable LAB90 Attending Clinician Unavailable [facility] Attending Clinician UnavailGEREMIAS Wood Attending Clinician UnavailCARISSA Albarran Attending Clinician Unava ilable 1, [facility] Attending Clinic mann Unavailable PRINCE CHEEK Attending Clinician Unavailable DEANNE KAUR Attending Clinician Unavail able NIRALI FLORES Attending Clinician Unavailabl e [id number] Attending Clinician Unavailable KESHAWN SCHNEIDER Attending Clinician Unavailable LAB47 Attending Clinician Unavailable KESHAWN JONES Attending Clinician Unavailable TOMOGRAPHY, [facility]HER[facility] Attending Cl inician Unavailable KEMAR RODRIGUEZ Attending Clinician Unavailab ESTHER Marsh Attending Clinician Unavailable KEATON PATIÑO Attending Clinician Unavailable Keaton Patiño MD Attending Clinician + [phone] MD ELIJAH Attending Clinician Unavailab TANGELA Mendoza Attending Clinician Unavailab le ONLY, [facility] HEM/ONC NURSE Attending Clinician Lila vailable \\R\\RSOH_Magy Attending Clinician Unavailable LIZETH FLORES Attending Clinician Unavailable ERIC DURBIN Attending Clinician Unavailab SEBASTIAN Rose Attending Clinician Unava ilable ANDREI MAR Attending Clinician Unavailable TOMOGRAPHY, [facility] COHERENCE Attending Cl inician Unavailable SHMUEL HAGEN Attending Clinician Unavailable NUHA WINSTON Attending Clinician Unav ailable VF53 Attending Clinician Unavailable LEONID ROSE Attending Clinician Unava ilable IVT, GABY Attending Clinician Unavailable CARLTON HERNANDEZ Attending Clinician Unavailab ISMA Zimmerman Attending Clinician Unavailable INFUSION, GABY Attending Clinician Unavailable ANGELA BELTRAN Attending Clinician Unavailable ZAIN DIOR Attending Clinician Unavailable MATTHEW ASHFORD Attending Clinician Unavailable PHOEBE ROWE Attending Clinician Unavailable ANDREW VERDUZCO Attending Clinician Unavailab ANDREW Valenzuela Attending Clinician Unavailab ROSETTA Hernández Attending Clinician Unavailable Toni [facility], Malini Cates Attending Clinician + [phone] Doctor Unassigned, [place] Attending Clinician U navailable UNKNOWN, ATTENDING Attending Clinician Unavailab LEXA Watson Attending Clinician Unavailable Lexa Goff DO Attending Clinician [phone] PATRIA LEVY Attending Clinician Unavailab Santos Colón Attending Clinician Unavailable KEATON PATIÑO Admitting Clinician Unavailable \\R\\RSOH_Magy Admitting Clinician Unavailable LEXA GOFF Admitting Clinician Unavailable Santos MOISE Admitting Clinician Unavailable Payers Payer Name Policy Type Policy Number Effective Date Expirati on Date Source [employer] MP [employer] 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 9 [id number] 2023 00:00:00 [employer] 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 [id number] 2023 00:00:00 MELISSA GRANT IPA - [employer] (HMO) [id number] 2022 00:00:00 Problems Condition Name Condition Details [...] HCC) Hyperparat hyroidism (multi HCC) Disease Active 18 00:00: 00 Melissa Barronold - Externa l [...] pain Disease Active 2022-02 00:00: 00 Melissa Quigleyybold - Externa l Uterine prolapse Uterine prolapse Disease Active 2022-02 0 00:00: 00 Melissa Barronold - Externa l [...] HCC) Disease Active 17 00:00: 00 Melissa Barronold - Externa l [...] HCC) Disease Active 2-24 00:00: 00 Melissa Uribea l BMI 27.0-27.9, adult BMI 27.0-27.9, adult Disease Active 08-20 00:00: 00 [facility] Screening examinatio n for STD (sexually transmitte d disease) Screening examinatio n for STD (sexually transmitte d disease) Disease Active 08-20 00:00: 00 [facility] Elevated blood pressure reading without diagnosis of hypertensi on Elevated blood pressure reading without diagnosis of hypertensi on Disease Active 08-20 00:00: 00 [facility] BMI 27.0-27.9, adult BMI 27.0-27.9, adult Disease Active 08-20 00:00: 00 [facility] Pain pelvic Pain pelvic Disease Active 08-20 00:00: 00 [facility] Allergies, Adverse Reactions, Alerts Allergy Name Allergy Type Status Severity Reaction(s) Onset Date Inactive Date Treating Clinician Comments Source Hydrocod one Propensi ty to adverse reaction s Active 04-09 00:00: 00 Other reaction( s): Nausea/Vo mitingOth er reaction( s): Not available Melissa cates NO KNOWN ALLERGIE S Drug Class Active [facility] Hydrocod one Allergy to substanc e Active Panoram ic - unspeci fied Social History Social Habit Start Date Stop Date Quantity Comments Source ASSERTION Not Melissa Grant - External History of Occupation Melissa Grant - External Gender identity Trisha Grant - External [facility] Alcoh[facility] intake 2024-01-05 00:00:00 2024-01-05 00:00:00 [...] of Social function 2021-09-30 00:00:00 2021-09-30 00:00:00 [facility] Exposure to SARS-CoV-2 (event) 2021-09-19 00:00:00 2021-09-29 13:11:00 Not sure [facility] History SDOH Alcohol Frequency 2019-08-21 00:00:00 2019-08-21 00:00:00 2 [facility] History SDOH Alcohol Std Drinks 2019-08-21 00:00:00 2019-08-21 00:00:00 1 [facility] History SDOH Alcohol Binge 2019-08-21 00:00:00 2019-08-21 00:00:00 1 [facility] Alcohol Comment 2019-08-21 00:00:00 2019-08-21 00:00:00 social [facility] Sex assigned at 1975 00:00:00 1975 00:00:00 Melissa Grant - Tram Smoking Status Start Date Stop Date Source Current Some Day Smoker Panoramic - unspecif ied Ex-smoker 2023-05-27 00:00:00 2023-05-27 00:00:00 Melissa Grant - External Smokes tobacco daily 2022-04-03 00:00:00 Melissa Griffin External Never smoked tobacco [facility] Medications Ordered Medication Name Filled Medication Name Start Date Stop Date Current Medication? Ordering Clinician Indication Dosage Frequency Signature (SIG) Comments Components Source Aspirin 81 MG oral Tablet Delayed Response 2023-02 11:33: 14 Yes 81mg QD Take 1 tablet (81 mg total) by mouth daily. Melissa Griffin Externa l Insulin Degludec (Tresiba FlexTouch) 100 UNIT/ML subcutaneou s Solution Pen-injecto r 2023-02 00:00: 00 Yes [id number] 9109 10U QD Inject 10 units into the skin daily. Melissa cates Pantoprazol e Sodium 40 MG oral Tablet Delayed Response 2023-02 00:00: 00 Yes [id number] 40mg QD Take 1 tablet (40 mg [...] 2023-02 00:00: 00 01-04 00:00 :00 No [id number] 15U QD Inject 15 units into the skin daily (with breakfast) . Melissa cates Insulin Pen Needle (Pen Adams) 33G X 4 MM does not apply Misc 2023-02 00:00: 00 Yes [id number] 1{each} QD Inject 1 each into the skin daily To use with insulin pen. Melissa cates Insulin Glargine (Basaglar KwikPen) 100 UNIT/ML subcutaneou s Solution Pen-injecto r 2023-02 00:00: 00 Yes [id number] 10U QD Inject 10 units into the skin daily (with breakfast) . Melissa cates Continuous Glucose Sensor (Dexcom G6 Sensor) does not apply Misc 2023-02 00:00: 00 Yes [id number] 9109 Check glucose continuous ly. Melissa cates Atorvastati n Calcium (Lipitor) 10 MG oral Tablet 2023-02 0 00:00: 00 Yes [id number] 3 10mg QD Take 1 tablet (10 mg total) by mouth nightly. Melissa cates Continuous Glucose Transmitter (Dexcom G6 Transmitter ) does not apply Misc 2023-02 00:00: 00 Yes [id number] 9109 Check glucose continuous ly. Melissa cates Continuous Glucose [place] (Dexcom G6 [place]) does not apply Device 2023-02 00:00: 00 Yes [id number] 9109 Check glucose continuous ly. Melissa cates Sucralfate (Carafate) 1 g oral Tablet 2023-02 00:00: 00 01-04 00:00 :00 No [id number] 1g Q.25D Take 1 tablet (1 g total) by mouth 4 times daily. Melissa cates Pantoprazol e Sodium 40 MG oral Tablet Delayed Response 2023-02 00:00: 00 01-04 00:00 :00 No [id number] 40mg QD Take 1 tablet (40 mg total) by mouth daily. Melissa cates Sitagliptin Phosphate (Januvia) 25 MG oral Tablet 2023-02 00:00: 00 Yes [id number] 3 25mg QD Take 1 tablet (25 mg total) by mouth daily. Melissa cates Levothyroxi ne Sodium 75 MCG oral Tablet 2023-02 00:00: 00 Yes [id number] 75ug QD take 1 tablet by mouth [...] Solution Pen-injecto r 10-26 00:00: 00 Yes [id number] .75mg Q1W Inject 0.75 mg into the skin once a week. Melissa Griffin Externa l Latanoprost 0.005 % ophthalmic Solution 10-25 00:00: 00 Yes [id number] 1[drp] QD Place 1 drop into both eyes nightly. Melissa Rudy Griffin Externa l Aspirin 81 MG oral Tablet Delayed Response 10-14 08:14: 31 Yes 81mg QD Take 1 tablet (81 mg total) by mouth daily. Melissa Serobbie Griffin Externa l Aspirin 81 MG oral Tablet Delayed Response 10-05 09:08: 43 Yes 81mg QD Take 1 tablet (81 mg total) by mouth daily. Melissa Griffin Externa l Tobramycin- dexAMETHaso ne (TobraDex) 0.3-0.1 % ophthalmic Suspension 10-05 00:00: 00 Yes 1 drop right eye 4 times per day for 7 days, then 2 times per day until it runs out. Melissa Flannrey l Aspirin 81 MG oral Tablet Delayed Response 09-30 09:51: 00 Yes 81mg QD Take 1 tablet (81 mg total) by mouth daily. Melissa cates Trulicity 0.75 MG/0.5ML subcutaneou s Solution Pen-injecto r 09-30 00:00: 00 Yes [id number] .75mg Q1W Inject 0.75 mg into the skin once a week. Melissa Uribea l Gabapentin 100 MG oral Capsule 09-30 00:00: 00 Yes [id number] 100mg Q.5D Take 1 capsule (100 mg total) by mouth 2 times daily as needed (pain). Indication s: Disease of the Peripheral Nerves Melissa Flannery l Olmesartan Medoxomil 5 MG oral Tablet 09-30 00:00: 00 Yes [id number] 1{tbl} QD Take 1 tablet by mouth daily. Melissa Uribea l Bilateral: Bevacizumab (AVASTIN) [100 mg/4 mL], 2.5mg - Physician Administere d (J9035) 09-26 10:12: 18 No [id number] 101 2.5mg 2.5 mg, Physician Administer ed, ONCE, 1 dose, On Wed09/27/23 at 1015 Melissa cates Sodium Bicarbonate 650 MG oral Tablet 09-20 00:00: 00 Yes [id number] 650mg Q.46980128 [id number] 3D Take 1 tablet (650 mg total) [...] 09-13 00:00: 00 12-07 00:00 :00 No [id number] 10mg Take 1 tablet (10 mg total) [...] 08-09 00:00: 00 12-07 00:00 :00 No [id number] 20mg QD Take 1 capsule (20 mg total) by mouth daily. Melissa cates Sitagliptin Phosphate (Januvia) 25 MG oral Tablet 08-09 00:00: 09-30 00:00 :00 No [id number] 25mg QD Take 1 tablet (25 mg [...] 07-27 20:30: 00 07-27 20:20 :00 No [id number] 101 2.5mg 2.5 mg, Physician Administer ed, ONCE, 1 dose, On Wed07/28/23 at 1530 Melissa cates Carvedilol (Coreg) 6.25 MG oral Tablet 07-27 14:41: 18 Yes 6.25mg Take 1 tablet (6.25 mg total) by mouth in the morning and 1 tablet (6.25 mg total) in the evening. Take with meals. Melissa cates Levothyroxi ne Sodium 75 MCG oral Tablet 05-27 00:00: 00 Yes [id number] 75ug QD Take 1 tablet (75 mcg total) by mouth daily. Melissa cates Ergocalcife rol 1.25 MG (66645 UT) oral Capsule 05-26 00:00: 00 04-28 04:59 :00 No [id number] 23086Q Q1W Take 1 capsule (50,000 units total) [...] 04-12 00:00: 00 10-25 00:00 :00 No [id number] 1[drp] QD Place 1 drop into both [...] Tablet 00:00: 00 08-09 00:00 :00 No [id number] 25mg QD Take 1 tablet (25 mg total) by mouth daily. Melissa cates Metoclopram torrey HCl (Reglan) 5 MG oral Tablet 00:00: 00 05-26 00:00 :00 No [id number] 5mg Q.5D Take 1 tablet (5 mg total) by mouth 2 times daily as needed (nausea). Melissa cates Dicyclomine HCl 20 MG oral Tablet 00:00: 00 05-26 00:00 :00 No [id number] 10mg QD Take 0.5 tablets (10 mg [...] HCl 5 MG oral Tablet 04-07 00:00: 00:00 :00 No 5mg Take 1 tablet (5 mg total) by mouth 4 times daily. Melissa cates Duloxetine HCl 20 MG oral [...] On Wed02/24/23 at 0045, FRANK [facility] morpHINE (4 mg/mL) injection 4 mg 02-24 06:45: 00 02-24 06:45 :00 No 4mg 4 mg, Slow IV Push, ONCE, 1 dose, On Wed02/24/23 at 0045, STAT [facility] ondansetron (ZOFRAN (PF)) injection 4 mg 02-24 06:00: 00 02-24 05:53 :00 No 4mg 4 mg, Slow IV Push, ONCE, 1 dose, On Wed02/24/23 at 0000, FRANK [facility] NaCl 0.9% (NS) IV infusion 1,000 mL 02-24 05:15: 00 Yes 1000mL at 999 mL/hr, Intravenou s, CONTINUOUS , Starting on Wed02/23/23 at 2315, Until Discontinu ed, Routine [facility] ketorolac (TORADOL) injection 30 mg 02-24 05:15: 00 02-24 04:27 :00 No 30mg 30 mg, Slow IV Push, ONCE, 1 dose, On Wed02/23/23 at 2315, Routine [facility] ondansetron (ZOFRAN (PF)) injection 4 mg 02-24 04:15: 00 02-24 04:14 :00 No 4mg 4 mg, Slow IV Push, ONCE, 1 dose, On Wed02/23/23 at 2215, FRANK [facility] maalox:diph enhydrAMINE :lidocaine 2 % viscous 1:1:1 ([facility]) oral suspension 15 mL 02-24 04:15: 00 02-24 04:13 :00 No 15mL 15 mL, Oral, ONCE, 1 dose, On Wed02/23/23 at 2215, Routine [facility] dicyclomine 20 mg tablet 02-24 00:00: 00 02-24 00:00 :00 No [id number] 20mg Take 1 tablet by mouth every 6 (six) hours as needed for Abdominal pain. [facility] traMADoL (ULTRAM) 50 mg tablet 02-24 00:00: 00 02-24 00:00 :00 No [id number] 50mg Take 1 tablet by mouth every 6 (six) hours as needed for Pain (scale 7-10). Indication s: acute pain [facility] proMETHazin e 25 mg tablet 02-24 00:00: 00 02-24 00:00 :00 No [id number] 25mg Take 1 tablet by mouth every 6 (six) hours as needed for Nausea and Vomiting (N/V). [facility] Ibuprofen (MOTRIN) 400 MG oral Tablet 02-16 00:00: 00 00:00 :00 No [id number] 400mg Q.25D Take 1 tablet (400 mg total) by mouth every 6 hours as needed. Melissa cates HYDROcodone -Acetaminop hen ([place]) 5-325 MG oral Tablet 02-16 00:00: 00 00:00 :00 No [id number] 1{tbl} Q.25D Take 1 tablet by mouth every 6 hours as needed for pain. Melissa cates Benzonatate (Tessalon Perles) 100 MG oral Capsule 2022-02 00:00: 00 02-16 00:00 :00 No [id number] 100mg Q.[id number] 3D Take 1 capsule (100 mg total) by mouth 3 times daily as needed for cough. Melissa cates Azithromyci n 250 MG oral Tablet 2022-02 00:00: 00 01-04 05:59 :00 No [id number] Take 2 tablets by mouth on day 1 then 1 tablet by mouth daily for 4 days thereafter .. Melissa cates Olmesartan Medoxomil 5 MG oral Tablet 2022-02 00:00: 00 09-30 00:00 :00 No 1{tbl} QD Take 1 tablet by mouth daily. Melissa cates Ferrous Sulfate (Iron) 325 (65 Fe) MG oral Tablet 2022-02 00:00: 00 05-26 00:00 :00 No [id number] 325mg Take 1 tablet (325 mg total) by mouth daily (with breakfast) . Melissa cates Atorvastati n Calcium (Lipitor) 10 MG oral Tablet 2022-02 00:00: 00 12-07 00:00 :00 No [id number] 3 10mg QD Take 1 tablet (10 mg total) by mouth nightly. Melissa cates Duloxetine HCl [address] Particles 2022-02 00:00: 00 02-16 00:00 :00 No [id number] 20mg Take 1 capsule (20 mg total) by mouth daily. Melissa cates glipiZIDE 10 MG oral Tablet 2022-02 00:00: 00 Yes [id number] 10mg Take 1 tablet (10 mg total) by mouth in the morning and 1 tablet (10 mg total) in the evening. Take before meals. Melissa cates Esomeprazol e Magnesium (NexIUM) 40 MG oral Delayed Release Capsule 2022-02 00:00: 00 00:00 :00 No [id number] 40mg Take 1 capsule (40 mg total) by mouth every morning (before breakfast) . Melissa cates Carvedilol (Coreg) 6.25 MG oral Tablet 2022-02 00:00: 00 02-16 00:00 :00 No [id number] 6.25mg Take 1 tablet (6.25 mg total) by mouth in the morning and 1 tablet (6.25 mg total) in the evening. Take with meals. Melissa cates Gabapentin 100 MG oral Capsule 2022-02 0 00:00: 00 11-11 00:00 :00 No [id number] 100mg Take 1 capsule (100 mg total) by mouth nightly. Melissa cates Duloxetine HCl [address] Particles 2022-02 0- 00:00: 00 11-11 00:00 :00 No [id number] 20mg Take 1 capsule (20 mg total) by mouth daily. Melissa cates Gabapentin 100 MG oral Capsule 2023-0 9-25 00:00: 00 Yes [id number] 100mg Q.5D Take 1 capsule (100 mg total) by mouth 2 times daily as needed (pain). Melissa cates Bevacizumab (AVASTIN) 100 mg/4 mL - Physician Kaushal bedolla ([id number]) 10-30 19:30: 00 10-30 19:19 :00 No [id number] 101 1.25mg Melissa cates Latanoprost 0.005 % ophthalmic Solution 10-13 00:00: 00 04-12 00:00 :00 No [id number] 1[drp] Place 1 drop into both eyes nightly. Melissa cates Atorvastati n Calcium (Lipitor) 10 MG oral Tablet 09-28 00:00: 00 Yes [id number] 3 10mg Take 1 tablet (10 mg total) by mouth nightly. Melissa cates Latanoprost 0.005 % ophthalmic Solution 09-28 00:00: 00 10-13 00:00 :00 No [id number] 1[drp] Place 1 drop into both eyes [...] MCG oral Tablet 09-02 00:00: 00 Yes [id number] 75ug Take 1 tablet (75 mcg total) by mouth daily Melissa cates Sitagliptin Phosphate (Januvia) 50 MG oral Tablet 09-02 00:00: 00 00:00 :00 No [id number] 50mg Take 1 tablet (50 mg total) by mouth daily Melissa cates Lansoprazol e 30 MG oral Delayed Release Capsule 09-02 00:00: 00 11-11 00:00 :00 No [id number] 30mg Take 1 capsule (30 mg total) by mouth daily Melissa cates Sitagliptin Phosphate (Januvia) 50 MG oral Tablet 08-27 00:00: 00 Yes [id number] 50mg Take 1 tablet (50 mg total) by mouth daily Melissa cates Lansoprazol e 30 MG oral Delayed Release Capsule 08-27 00:00: 00 Yes [id number] 30mg Take 1 capsule (30 mg total) by mouth daily Melissa cates Latanoprost 0.005 % ophthalmic Solution 07-28 00:00: 00 Yes [id number] 1[drp] Place 1 drop into both eyes nightly Melissa cates glipiZIDE 10 MG oral Tablet 07-28 00:00: 00 Yes [id number] 10mg Take 1 tablet (10 mg total) by mouth in the morning and 1 tablet (10 mg total) in the evening. Take before meals. Melissa cates Sitagliptin Phosphate (Januvia) 50 MG oral Tablet 07-28 00:00: 00 08-27 00:00 :00 No [id number] 50mg Take 1 tablet (50 mg total) by mouth daily Melissa cates Lansoprazol e 30 MG oral Delayed Release Capsule 07-28 00:00: 00 08-27 00:00 :00 No [id number] 30mg Take 1 capsule (30 mg total) by mouth daily Melissa cates Atorvastati n Calcium (Lipitor) 10 MG oral Tablet 07-10 00:00: 00 Yes [id number] 3 10mg Take 1 tablet (10 mg total) by mouth nightly Melissa cates Bilateral: Bevacizumab (AVASTIN) [100 mg/4 mL], 2.5mg - Physician Administere d ([id number]) 06-29 19:30: 00 06-29 19:28 :00 No [id number] 101 2.5mg Melissa cates Pantoprazol e Sodium [...] % ophthalmic Solution 06-24 00:00: 00 Yes [id number] 1[drp] Place 1 drop into both eyes nightly Melissa cates Pantoprazol e Sodium 40 MG oral Tablet Delayed Response 06-24 00:00: 00 Yes [id number] 40mg Take 1 tablet (40 mg total) by mouth daily Melissa cates Levothyroxi ne Sodium 75 MCG oral Tablet 06-24 00:00: 00 Yes [id number] 75ug Take 1 tablet (75 mcg total) by mouth daily Melissa cates Iron Sucrose (VENOFER) 300 mg in sodium chloride 0.9 % 250 mL infusion 06-22 17:15: 00 06-22 18:20 :00 No [id number] 300mg 300 mg, at 166.7 mL/hr, Administer [...] 06-19 00:00: 00 11-05 00:00 :00 No [id number] Instructio ns provided to patient. Follow instructio ns provided by provider. Melissa cates Latanoprost 0.005 % ophthalmic Solution 06-17 00:00: 00 Yes [id number] 1[drp] Place 1 drop into both eyes nightly Melissa cates Iron Sucrose (VENOFER) 300 mg in sodium chloride 0.9 % 250 mL infusion 06-09 17:15: 00 06-09 18:50 :00 No [id number] 300mg 300 mg, at 166.7 mL/hr, Administer [...] 05-26 16:45: 00 05-26 18:06 :00 No [id number] 300mg 300 mg, at 166.7 mL/hr, Administer [...] % ophthalmic Solution 05-12 00:00: 00 Yes [id number] 1[drp] Place 1 drop into both eyes nightly Melissa cates Multiple Vitamins-Ir on (MULTIVITAM IN PLUS IRON ADULT OR) 05-11 14:21: 53 Yes 1{tbl} Take 1 tablet by mouth daily Melissa cates Januvia 50 MG oral Tablet 05-10 00:00: 00 Yes [id number] TAKE 1 TABLET BY MOUTH EVERY DAY Melissa cates Multiple Vitamins-Ir on (MULTIVITAM IN PLUS IRON ADULT OR) 05-08 10:04: 06 Yes 1{tbl} Take 1 tablet by mouth daily Melissa cates Sitagliptin Phosphate 50 MG oral Tablet 05-08 00:00: 00 Yes [id number] 50mg Take 1 tablet (50 mg total) by mouth daily Melissa cates glipiZIDE 10 MG oral Tablet 05-08 00:00: 00 Yes [id number] 10mg Take 1 tablet (10 mg total) by mouth in the morning and 1 tablet (10 mg total) in the evening. Take before meals. Melissa cates Rosuvastati n Calcium 40 MG oral Tablet 05-08 00:00: 00 06-24 00:00 :00 No [id number] 3 40mg Take 1 tablet (40 mg total) by mouth at bedtime Melissa cates Levothyroxi ne Sodium 75 MCG oral Tablet 05-05 00:00: 00 Yes [id number] 75ug Take 1 tablet (75 mcg total) [...] MG oral Tablet 05-01 00:00: 00 Yes [id number] 3 10mg Take 1 tablet (10 mg total) by mouth daily (before a meal) Melissa cates Sitagliptin Phosphate 100 MG oral Tablet 05-01 00:00: 00 Yes [id number] 3 100mg Take 1 tablet (100 mg total) by mouth daily Melissa cates Furosemide (LASIX) 20 MG oral Tablet 05-01 00:00: 00 Yes [id number] 40mg Take 2 tablets (40 mg total) by mouth daily Melissa cates Pantoprazol e Sodium 40 MG oral Tablet Delayed Response 04-12 00:00: 00 06-19 00:00 :00 No 40mg Take 1 tablet (40 mg total) by mouth daily Melissa cates Ferrous Sulfate (Iron) 325 (65 Fe) MG oral Tablet 04-09 00:00: 00 Yes [id number] 325mg Take 1 tablet (325 mg total) by mouth 2 times daily Melissa cates Levothyroxi ne Sodium 50 MCG oral Tablet 04-07 00:00: 00 Yes [id number] 50ug Take 1 tablet (50 mcg total) by mouth daily Melissa cates ASPIRIN 81 OR 04-03 15:32: 05 04-03 00:00 :00 No Take by mouth Melissa caets Furosemide (LASIX) 20 MG oral Tablet 04-03 [...] Tablet Delayed Response 04-03 00:00: 00 Yes [id number] 81mg Take 1 tablet (81 mg total) by mouth daily Melissa cates SITagliptin (JANUVIA) 100 mg tablet 09-30 16:27: 53 09-30 00:00 :00 No 100mg Take 100 mg by mouth in the morning. [facility] glipiZIDE XL (GLUCOTROL XL) 10 mg 24 hr tablet 09-30 16:27: 53 09-30 00:00 :00 No 10mg Take 10 mg by mouth in the morning and 10 mg in the evening. [facility] rosuvastati n 20 mg tablet 09-30 16:17: 42 09-30 00:00 :00 No 20mg Take 20 mg by mouth at bedtime. [facility] lisinopriL 5 mg tablet 09-30 16:17: 29 09-30 00:00 :00 No 5mg Take 5 mg by mouth in the morning. [facility] furosemide 20 mg tablet 09-30 15:17: 03 Yes 20mg Take 20 mg by mouth in the morning. [facility] esomeprazol e (NEXIUM) 20 mg capsule 09-30 15:17: 03 Yes 20mg Take 20 mg by mouth daily before a meal. [facility] LO ASPIRIN ORAL 09-30 15:17: 03 Yes Take by mouth. [facility] Lisinopril 5 MG oral Tablet 09-30 00:00: 00 Yes 5mg Take 5 mg by mouth daily Melissa cates Rosuvastati n Calcium 20 MG oral Tablet 09-30 00:00: 00 Yes 40mg Take 40 mg by mouth at bedtime Melissa cates gabapentin 300 mg capsule 09-30 00:00: 00 Yes [id number] 300mg Take 1 capsule by mouth in the morning and 1 capsule at noon and 1 capsule in the evening. [facility] rosuvastati n 20 mg tablet 09-30 00:00: 00 Yes [id number] 20mg Take 1 tablet by mouth at bedtime. [facility] amitriptyli ne 25 mg tablet 09-30 00:00: 00 02-24 00:00 :00 No [id number] 25mg Take 1 tablet by mouth at bedtime. [facility] Sitagliptin Phosphate 100 MG oral Tablet 09-30 00:00: 00 05-01 00:00 :00 No 100mg Take 100 mg by mouth daily Melissa cates glipiZIDE XL (GLUCOTROL XL) 10 mg 24 hr tablet 09-30 00:00: 00 03-30 05:59 :00 No [id number] 10mg Take 1 tablet by mouth in the morning and 1 tablet in the evening. Do all this for 180 days. [facility] furosemide 20 mg tablet 07-24 00:00: 00 No 1mg furosemide 20 mg tablet 07-24 00:00: 00 No 1mg furosemide 20 mg tablet 06-10 00:00: 00 No 1mg furosemide 20 mg tablet 5 00:00: 00 No 1mg lisinopril 5 mg tablet 05-15 00:00: 00 No 1mg Januvia 100 mg tablet 05-15 00:00: 00 No 1mg glipizide ER 10 mg tablet, extended release 24 hr 05-15 00:00: 00 No 1mg lisinopril 5 mg tablet 05-15 00:00: 00 No 1mg Januvia 100 mg tablet 05-15 00:00: 00 No 1mg glipizide ER 10 mg tablet, extended release 24 hr 05-15 00:00: 00 No 1mg Dose Unknown 05-09 00:00: 00 No Dose Unknown 05-09 00:00: 00 No Dose Unknown 05-09 00:00: 00 No Dose Unknown 05-09 00:00: 00 No Dose Unknown 4- 00:00: 00 No Dose Unknown 4 00:00: 00 No Dose Unknown 4- 00:00: 00 No Dose Unknown 4- 00:00: 00 No ondansetron 4 mg disintegrat ing tablet 3 00:00: 00 Yes [id number] 4mg Take 1 tablet by mouth every 8 (eight) hours as needed for Nausea and Vomiting (N/V). [facility] lisinopril 5 mg tablet 2020-02 [...] 00:00: 00 No Macrobid 100 mg capsule 825 00:00: 00 No 1mg Macrobid 100 mg [...] 05-08 00:00: 00 09-30 00:00 :00 No [id number] 1{tbl} Take 1 tablet by mouth every 12 (twelve) hours. [facility] glipiZIDE 5 mg tablet 05-08 00:00: 00 09-30 00:00 :00 No [id number] 5mg Take 1 tablet by mouth daily. [facility] levothyroxi ne 25 mcg tablet [...] Covid-19 Vaccine Moderna (Spikevax), Mrna-lnp, Isaiah Protein, 2020-07-29 00:00:00 Completed Melissa Seybold - External Covid-19 Vaccine Moderna (Spikevax), Mrna-lnp, Isaiah Protein, 2020-07-29 00:00:00 Completed Melissa Seybold - External Covid-19 Vaccine Moderna (Spikevax), Mrna-lnp, Isaiah Protein, Pf 2020-07-29 00:00:00 Completed Melissa Seybold - External Covid-19 Vaccine Moderna (Spikevax), Mrna-lnp, Isaiah Protein, Pf 2020-07-29 00:00:00 Completed Melissa Seybold - External Covid-19 Vaccine Moderna (Spikevax), Mrna-lnp, Isaiah Protein, 2020-07-29 00:00:00 Completed Melissa Seybold - External [...] VACCINE MODERNA 6MONTHS-5YEARS 2020-06-28 00:00:00 Completed Melissa Quigleyybold - External Moderna COVID-19 Vaccine 2020-06-28 00:00:00 [...] Isaiah Protein, Pf Unknown Completed [facility] - External COVID-19 VACCINE MODERNA 6MONTHS-5YEARS Unknown [facility] Nasal, Unspecified Formulation Unknown Completed Melissa Seold - External Influenza, Seasonal, Injectable, Preservative Free Unknown Completed [facility], [facility] - External Covid-19 Vaccine Moderna (Spikevax), Mrna-lnp, Isaiah Protein, Pf Unknown Completed [facility] - External COVID-19 VACCINE MODERNA 6MONTHS-5YEARS Unknown Com[facility] Influ[facility]al, Unspecified Formulation [facility] Influ[facility], Seasonal, Injectable, Preservative Free Unknown Completed [facility], [facility] - External Covid-19 Vaccine Moderna (Spikevax), Mrna-lnp, Isaiah Protein, Pf Unknown Completed [facility] - External COVID-19 VACCINE MODERNA 6MONTHS-5YEARS Unknown [facility] Nasal, Unspecified Formulation Unknown [facility] Influenza, Seasonal, Injectable, Preservative Free Unknown Completed [facility], [facility] - External Covid-19 Vaccine Moderna (Spikevax), Mrna-lnp, Isaiah Protein, Pf Unknown Completed [facility] - External COVID-19 VACCINE MODERNA 6MONTHS-5YEARS Unknown [facility] Influenza Nasal, Unspecified Formulation Unknown [facility] Influenza, Seasonal, Injectable, Preservative Free Unknown Completed [facility], [facility] - External Covid-19 Vaccine Moderna (Spikevax), Mrna-lnp, Isaiah Protein, Pf Unknown Completed [facility] - External COVID-19 VACCINE MODERNA 6MONTHS-5YEARS Unknown [facility] Influ[facility] Nasal, Unspecified Formulation Unknown [facility] Influenza, Seasonal, Injectable, Preservative Free Unknown Completed [facility], [facility] - External Covid-19 Vaccine Moderna (Spikevax), Mrna-lnp, Isaiah Protein, Pf Unknown Completed [facility] - External COVID-19 VACCINE MODERNA 6MONTHS-5YEARS Unknown Completed Melissa Seol d - External Influenza Nasal, Unspecified Formulation Unknown [facility] Influenza, Seasonal, Injectable, Preservative Free Unknown Completed [facility], [facility] - External Covid-19 Vaccine Moderna (Spikevax), Mrna-lnp, Isaiah Protein, Pf Unknown Completed [facility] - External COVID-19 VACCINE MODERNA 6MONTHS-5YEARS Unknown [facility] Influenza Nasal, Unspecified Formulation Unknown Completed [facility] - External Influenza, Seasonal, Injectable, Preservative Free Unknown Completed [facility], [facility] - External Covid-19 Vaccine Moderna (Spikevax), Mrna-lnp, Isaiah Protein, Pf Unknown Completed [facility] - External COVID-19 VACCINE MODERNA 6MONTHS-5YEARS Unknown [facility] Influenza Nasal, Unspecified Formulation Unknown Completed [facility] - External Influenza, Seasonal, Injectable, Preservative Free Unknown Completed [facility], [facility] - External Covid-19 Vaccine Moderna (Spikevax), Mrna-lnp, Isaiah Protein, Pf Unknown Completed [facility] External COVID-19 VACCINE MODERNA 6MONTHS-5YEARS Unknown Com[facility] External Influenza Nasal, Unspecified Formulation Unknown Completed [facility] - External Influenza, Seasonal, Injectable, Preservative Free Unknown Completed [facility], [facility] - External Covid-19 Vaccine Moderna (Spikevax), Mrna-lnp, Isaiah Protein, Pf Unknown Completed [facility] - External COVID-19 VACCINE MODERNA 6MONTHS-5YEARS Unknown Com[facility] External Influenza Nasal, Unspecified Formulation Unknown Completed [facility] - External Influenza, Seasonal, Injectable, Preservative Free Unknown Completed [facility], [facility] - External Covid-19 Vaccine Moderna (Spikevax), Mrna-lnp, Isaiah Protein, Pf Unknown Completed [facility] - External COVID-19 VACCINE MODERNA 6MONTHS-5YEARS Unknown Completed Melissa Seol d - External Influenza Nasal, Unspecified Formulation Unknown [facility] External Influenza, Seasonal, Injectable, Preservative Free Unknown Completed [facility], [facility] - External Covid-19 Vaccine Moderna (Spikevax), Mrna-lnp, Isaiah Protein, Pf Unknown Completed [facility] - External COVID-19 VACCINE MODERNA 6MONTHS-5YEARS [...] - External AFLURIA TRIVALENT PF(0.5mL) Unknown [facility] Cov[facility]-19 Vaccine Moderna (Spikevax), Mrna-lnp, [...] Isaiah Protein, Pf Unknown [facility] COVID-19 VACCINE MODERNA 6MONTHS-5YEARS Unknown [facility] Influenza Nasal, Unspecified Formulation Unknown Completed [facility] - External AFLURIA TRIVALENT PF(0.5mL) Unknown Completed [facility] - External Covid-19 Vaccine Moderna (Spikevax), Mrna-lnp, Isaiah Protein, Pf Unknown [facility] External COVID-19 VACCINE MODERNA 6MONTHS-5YEARS Unknown Com[facility] External Influenza Nasal, Unspecified Formulation Unknown Completed [facility] - External AFLURIA TRIVALENT PF(0.5mL) Unknown Completed [facility] - External Covid-19 Vaccine Moderna (Spikevax), Mrna-lnp, Isaiah Protein, Pf Unknown Completed [facility] - External COVID-19 VACCINE MODERNA 6MONTHS-5YEARS Unknown Completed [facility] External Influenza Nasal, Unspecified Formulation Unknown Completed [facility] - External Influenza, Seasonal, Injectable, Preservative Free Unknown Completed [facility], [facility] - External Covid-19 Vaccine Moderna (Spikevax), Mrna-lnp, Isaiah Protein, Pf Unknown Completed [facility] - External COVID-19 VACCINE MODERNA 6MONTHS-5YEARS Unknown Com[facility] External Influenza Nasal, Unspecified Formulation Unknown Completed [facility] - External Influenza, Seasonal, Injectable, Preservative Free Unknown Completed [facility], [facility] - External Covid-19 Vaccine Moderna (Spikevax), Mrna-lnp, Isaiah Protein, Pf Unknown Completed [facility] - External COVID-19 VACCINE MODERNA 6MONTHS-5YEARS Unknown [facility] Influenza Nasal, Unspecified Formulation Unknown Completed [facility] - External Influenza, Seasonal, Injectable, Preservative Free Unknown Completed [facility], [facility] - External Covid-19 Vaccine Moderna (Spikevax), Mrna-lnp, Isaiah Protein, Pf Unknown Completed [facility] - External COVID-19 VACCINE MODERNA 6MONTHS-5YEARS [facility]al, Unspecified Formulation Unknown Completed Melissa Seold - External Influenza, Seasonal, Injectable, Preservative Free Unknown Completed [facility] - External Covid-19 Vaccine Moderna (Spikevax), Mrna-lnp, Isaiah Protein, Pf Unknown [facility] COVID-19 VACCINE MODERNA 6MONTHS-5YEARS Unknown Com[facility] Influenza Nasal, Unspecified Formulation Unknown Completed Melissa Seold - External Influenza, Seasonal, Injectable, Preservative Free Unknown Completed [facility] - External Covid-19 Vaccine Moderna (Spikevax), Mrna-lnp, Isaiah Protein, Pf Unknown Completed [facility] - External COVID-19 VACCINE MODERNA 6MONTHS-5YEARS Unknown Completed Melissa Seol d - External Influenza Nasal, Unspecified Formulation Unknown Completed [facility] - External Influenza, Seasonal, Injectable, Preservative Free Unknown Completed [facility], [facility] - External COVID-19 VACCINE MODERNA 6MONTHS-5YEARS Unknown Completed [facility] - External Influenza Nasal, Unspecified Formulation Unknown Completed [facility] - External Covid-19 Vaccine Moderna (Spikevax), Mrna-lnp, Isaiah Protein, Pf Unknown [facility] External Influenza, Seasonal, Injectable, Preservative Free Unknown Completed [facility], [facility] - External Covid-19 Vaccine Moderna (Spikevax), Mrna-lnp, Isaiah Protein, Pf Unknown Completed [facility] - External COVID-19 VACCINE MODERNA 6MONTHS-5YEARS Unknown Completed [facility] Influenza Nasal, Unspecified Formulation Unknown Completed Melissa Seold - External Influenza, Seasonal, Injectable, Preservative Free Unknown Completed [facility], [facility] - External Covid-19 Vaccine Moderna (Spikevax), Mrna-lnp, Isaiah Protein, Pf Unknown Completed Melissa Seold - External COVID-19 VACCINE MODERNA 6MONTHS-5YEARS Unknown Completed Melissa Seol d - External Influenza Nasal, Unspecified Formulation Unknown Completed Melissa Seold - External Influenza, Seasonal, Injectable, Preservative Free Unknown Completed [facility], [facility] - External Covid-19 Vaccine Moderna (Spikevax), Mrna-lnp, Isaiah Protein, Pf Unknown Completed Melissa Grant - External COVID-19 VACCINE MODERNA 6MONTHS-5YEARS Unknown Completed [facility] - External Influenza Nasal, Unspecified Formulation [...] blood pressure 2024-01-05 17:34:00 136 mm[Hg] Melissa Dwyer ld - External Diastolic blood pressure 2024-01-05 17:34:00 80 mm[Hg] Melissa Dwyer ld - External Heart rate 2024-01-05 17:26:00 76 /min Dominikse megha Grant - External Body temperature 2024-01-05 17:26:00 [...] rate 2023-12-08 19:38:00 72 /min Dominikse y ybold - External Respiratory rate 2023-12-08 19:38:00 16 /min Melissa Barronold - External Body height 2023-12-08 19:38:00 149.9 [...] External Heart rate 2023-10-01 14:50:00 78 /min Dominikse megha Grant - External Body temperature 2023-10-01 14:50:00 36.56 Nannette Melissa Quigleyybold - External Respiratory rate 2023-10-01 14:50:00 16 /min Melissa Grant - External Body height 2023-10-01 14:50:00 149.9 [...] Pulse oximetry 2023-05-27 14:10:00 98 /min Melissa Seybo ld - External Systolic blood pressure 2023-05-21 14:14:00 162 mm[Hg] Melissa Seybo ld - External Diastolic blood pressure 2023-05-21 14:14:00 92 mm[Hg] Melissa Seybo ld - External Heart rate 2023-05-21 14:14:00 85 /min Kelse y Seybold - External Body temperature 2023-05-21 14:14:00 36.78 Nannette Melissa Seybold - External Respiratory rate 2023-05-21 14:14:00 [...] Systolic blood pressure 2023-02-24 07:15:00 156 mm[Hg] [facility] Diastolic blood pressure 2023-02-24 07:15:00 88 mm[Hg] [facility] Heart rate 2023-02-24 07:15:00 97 /min [facility] Body temperature 2023-02-24 07:15:00 36.78 Nannette [facility] Respiratory rate 2023-02-24 07:15:00 13 /min [facility] Oxygen saturation in Arterial blood by Pulse oximetry 2023-02-24 07:15:00 96 /min [facility] Body height 2023-02-24 03:40:00 149.9 cm [facility] Body weight 2023-02-24 03:40:00 65.772 kg [facility] BMI 2023-02-24 03:40:00 29.29 kg/m2 [facility] Systolic blood pressure 2023-02-16 19:13:00 130 mm[Hg] [...] blood pressure 2022-05-08 14:47:00 142 mm[Hg] Melissa Barrono ld - External Diastolic blood pressure 2022-05-08 14:47:00 73 mm[Hg] Melissa Barrono ld - External Heart rate 2022-05-08 14:47:00 81 /min Dominikse y Seybold - External Body temperature 2022-05-08 [...] Systolic blood pressure 2021-09-30 20:09:00 144 mm[Hg] [facility] Diastolic blood pressure 2021-09-30 20:09:00 88 mm[Hg] [facility] Heart rate 2021-09-30 20:08:00 88 /min [facility] Body temperature 2021-09-30 20:08:00 35.94 Nannette [facility] Respiratory rate 2021-09-30 20:08:00 16 /min [facility] Body height 2021-09-30 20:08:00 149.9 cm [facility] Body weight 2021-09-30 20:08:00 64.501 kg [facility] BMI 2021-09-30 20:08:00 28.72 kg/m2 [facility] BP Systolic 2022-02-05 11:42:00 160 mm[Hg] BP [...] Clinician Source URINALYSIS 2023-02-24 04:28:00 Keaton Patiño [facility] POCT TEST 2023-02-24 04:26:00 Keaton Patiño [facility] LIPASE 2023-02-24 04:10:00 Keaton Patiño [facility] COMP. METABOLIC PANEL (29080) 2023-02-24 04:10:00 Keaton Patiño [facility] CBC WITH DIFF 2023-02-24 04:10:00 [facility]aton [facility] FOR [facility]AG[facility] AND TREATMENT 2023-02-24 03:30:37 Doctor Unassigned, [place] [facility] ECG- ADULT 2022-11-11 16:50:07 Adriano Agee - External POCT HEMOGLOBIN A1C TEST 2021-09-30 21:21:00 Andrew Verduzco [facility] Extraction of Moss Tooth Panoramic - unspecified Ligation of Fallopian Tube Panoramic - unspecified Plan of Care Planned Activity Planned Date Details Comments Source Goal Plan of Care Note [code = 16922-9] Goal Plan of Care Note [code = 30442-8] Goal Plan of Care Note [code = 42421-8] Goal Plan of Care Note [code = 92700-0] Goal Plan of Care Note [code = 83643-4] Goal Plan of Care Note [code = 95958-1] Goal Plan of Care Note [code = 93280-8] Goal Plan of Care Note [code = 62436-6] Goal Plan of Care Note [code = 55143-1] Goal Plan of Care Note [code = 82508-5] Goal Plan of Care Note [code = 70627-0] Goal Plan of Care Note [code = 69925-7] Goal Plan of Care Note [code = 81409-7] Goal Plan of Care Note [code = 98448-8] Goal Plan of Care Note [code = 70825-9] Goal Plan of Care Note [code = 63442-1] Goal Plan of Care Note [code = 34157-0] Goal Plan of Care Note [code = 15003-4] Goal Plan of Care Note [code = 73899-9] Goal Plan of Care Note [code = 80007-9] Goal Plan of Care Note [code = 01050-3] Goal Plan of Care Note [code = 16573-1] Goal Plan of Care Note [code = 91582-9] Goal Plan of Care Note [code = 46020-8] Goal Plan of Care Note [code = 86017-0] Goal Plan of Care Note [code = 61261-1] Goal Plan of Care Note [code = 39839-9] Goal Plan of Care Note [code = 33994-9] Goal Plan of Care Note [code = 03485-6] Goal Plan of Care Note [code = 14597-4] Goal Plan of Care Note [code = 87358-5] Goal Plan of Care Note [code = 63475-9] Goal Plan of Care Note [code = 61361-4] Goal Plan of Care Note [code = 59701-0] Goal Plan of Care Note [code = 45957-0] Goal Plan of Care Note [code = 32542-5] Goal Plan of Care Note [code = 39214-5] Goal Plan of Care Note [code = 01329-5] Goal Plan of Care Note [code = 87306-4] Goal Plan of Care Note [code = 72815-4] Goal Plan of Care Note [code = 65213-8] Goal Plan of Care Note [code = 98026-3] Goal Plan of Care Note [code = 44063-3] Goal Plan of Care Note [code = 91023-7] Goal Plan of Care Note [code = 56294-9] Goal Plan of Care Note [code = 96698-0] Goal Plan of Care Note [code = 18802-8] Goal Plan of Care Note [code = 42004-7] Goal Plan of Care Note [code = 99374-4] Goal Plan of Care Note [code = 40551-0] Goal Plan of Care Note [code = 73334-9] Goal Plan of Care Note [code = 18280-4] Goal Plan of Care Note [code = 46167-8] Encounters Start Date/Time End Date/Time Encounter Type Admission Type Attending [facility] Facility Care Department Encounter ID Source 2020-12-08 09:56:25 Emergency [facility] [id number] [facility] 2024-04-25 14:20:00 2024-04-25 14:20:00 Outpatient MATEO ANTHONY [id number] [facility] 2024-04-19 10:40:00 2024-04-19 10:40:00 Outpatient IVIS HOOVER [id number] [facility] 2024-02-21 09:30:00 2024-02-21 09:30:00 Outpatient GIDEON RODRIGUEZ [id number] [facility] 2024-02-01 11:45:00 2024-02-01 11:45:00 Outpatient ADRIANO AGEE [id number] [facility] 2024-02-01 00:00:00 2024-02-01 00:00:00 Outpatient ADRIANO AGEE [id number] [facility] 2024-01-28 12:00:00 2024-01-28 12:00:00 Outpatient LAB90 MELISSA RAJPUT [id number] [facility] 2024-01-28 11:30:00 2024-01-28 11:30:00 Outpatient OLIVIA WHITEHEAD [id number] [facility] 2024-01-26 11:45:00 2024-01-26 11:45:00 Outpatient CHARLEY, OLIVIA RAJPUT MELISSA [id number] [facility] 2024-01-20 12:45:00 2024-01-20 12:45:00 Outpatient MELISSA MELISSA [id number] [facility] 2024-01-19 11:30:00 2024-01-19 11:30:00 Outpatient CHARLEY, OLIVIA RAJPUT MELISSA [id number] [facility] 2024-01-19 00:00:00 2024-01-19 00:00:00 Outpatient ALROUMOGEREMIAS Lewis MELISSA [id number] [facility] 2024-01-19 00:00:00 2024-01-19 00:00:00 Outpatient PREZAS, ADRIANO MELISSA RAJPUT [id number] [facility] 2024-01-18 00:00:00 2024-01-18 00:00:00 Outpatient ALROUMOGEREMIAS Lewis MELISSA RAJPUT [id number] [facility] 2024 00:00:00 2024 00:00:00 Outpatient PREZAS, ADRIANO RAJPUT MELISSA [id number] [facility] 2024-01-12 11:30:00 2024-01-12 11:30:00 Outpatient CHARLEY, OLIVIA RAJPUT MELISSA [id number] [facility] 2024-01-05 13:00:00 2024-01-05 13:00:00 Outpatient LAB MELISSA MELISSA [id number] [facility] 2024-01-05 11:30:00 2024-01-05 11:30:00 Outpatient PREZAS, ADRIANO MCWILLIAMSTAPAN RAJPUT [id number] [facility] 2023-12-29 08:30:00 2023-12-29 08:30:00 Outpatient CHARLEY, OLIVIA MELISSA RAJPUT [id number] [facility] 2023-12-28 00:00:00 2023-12-28 00:00:00 Outpatient PREZAS, ADRIANO MELISSA RAJPUT [id number] Melissa Seybmayra 2023-12-22 08:30:00 2023-12-22 08:30:00 Outpatient CHARLEY, OLIVIA MCWILLIAMSSEY [id number] [facility] 2023-12-22 00:00:00 2023-12-22 00:00:00 Outpatient PREZAS, ADRIANO RAJPUT MELISSA [id number] [facility] 2023-12-15 08:30:00 2023-12-15 08:30:00 Outpatient CHARLEY, OLIVIA RAJPUT [id number] [facility] 2023-12-15 00:00:00 2023-12-15 00:00:00 Outpatient PREZAS, ADRIANO RAJPUT MELISSA [id number] [facility] 2023-12-14 00:00:00 2023-12-14 00:00:00 Outpatient PREZAS, ADRIANO RAJPUT MELISSA [id number] [facility] 2023-12-09 00:00:00 2023-12-09 00:00:00 Outpatient PREZAS, ADRIANO RAJPUT MELISSA [id number] [facility] 2023-12-08 14:45:00 2023-12-08 14:45:00 Outpatient PREZAS, ADRIANO RAJPUT MELISSA [id number] [facility] 2023-12-08 00:00:00 2023-12-08 00:00:00 Outpatient MELISSA MELISSA [id number] [facility] 2023-11-23 00:00:00 2023-11-23 00:00:00 Outpatient PREZAS, ADRIANO RAJPUT MELISSA [id number] [facility] 2023-11-19 00:00:00 2023-11-19 00:00:00 Outpatient PREZAS, ADRIANO RAJPUT MELISSA [id number] [facility] 2023-11-18 00:00:00 2023-11-18 00:00:00 Outpatient PREZAS, ADRIANO RAJPUT MELISSA [id number] [facility]23-[facility]-17 10:00:00 2023-11-17 10:00:00 Outpatient PREZAS, ADRIANO MCWILLIAMSTAPAN RAJPUT [id number] [facility] 2023-11-16 00:00:00 2023-11-16 00:00:00 Outpatient PREZAS, ADRIANO MELISSA MELISSA [id number] [facility] 2023-11-16 00:00:00 2023-11-16 00:00:00 Outpatient CARISSA DELEON MELISSA RAJPUT [id number] [facility] 2023-11-15 13:00:00 2023-11-15 13:00:00 Outpatient OLIVIA WHITEHEAD MELISSA RAJPUT [id number] [facility] 2023-11-15 09:15:00 2023-11-15 09:15:00 Outpatient Radha, CHATO MELISSA MELISSA [id number] [facility] 2023-11-15 08:50:00 2023-11-15 08:50:00 Outpatient LAIGIDEON LANDRY MELISSA RAJPUT [id number] [facility] 2023-11-15 00:00:00 2023-11-15 00:00:00 Outpatient [facility] [id number] [facility]-15 00:00:00 2023-11-15 00:00:00 Outpatient PREZAADRIANO Resendez MELISSA [id number] [facility] 2023-11-08 00:00:00 2023-11-08 00:00:00 Outpatient PREZASADRIANO MELISSA [id number] [facility] 2023-11-08 00:00:00 2023-11-08 00:00:00 Prince Cheek MD: [id number] [facility] [address], [place] [address] , Ph. formerly [facility] [phone] [id number] [facility] ic - unspeci fied 2023-11-05 09:10:00 2023-11-05 09:10:00 Outpatient LAB90 MELISSA RAJPUT [id number] [facility] 2023-11-05 00:00:00 2023-11-05 00:00:00 Outpatient PREADRIANO POWELL MELISSA RAJPUT [id number] [facility] 2023-11-04 00:00:00 2023-11-04 00:00:00 Outpatient PREZAS, ADRIANO MELISSA RAJPUT [id number] [facility] 2023-11-01 09:30:00 2023-11-01 09:30:00 Outpatient DEANNE KAUR MELISSA RAJPUT [id number] [facility] 2023-10-28 00:00:00 2023-10-28 00:00:00 Outpatient NIRALI FLORES MELISSA RAJPUT [id number] [facility] 2023-10-27 16:00:00 2023-10-27 16:00:00 Outpatient MELISSA RAJPUT [id number] [facility] 2023-10-27 00:00:00 2023-10-27 00:00:00 Outpatient ADRIANO AGEE MELISSA RAJPUT [id number] [facility] 2023-10-26 11:20:00 2023-10-26 11:20:00 Outpatient MATEO ANTHONY [id number] [facility] 2023-10-26 10:15:00 2023-10-26 10:15:00 Outpatient MWS355 MELISSA RAJPUT [id number] [facility] 2023-10-26 09:00:00 2023-10-26 09:00:00 Outpatient MELISSA RAJPUT [id number] [facility] 2023-10-21 11:20:00 2023-10-21 11:20:00 Outpatient MELISSA RAJPUT [id number] [facility] 2023-10-15 08:00:00 2023-10-15 08:00:00 Outpatient KESHAWN SCHNEIDER [id number] [facility] 2023-10-14 16:20:00 2023-10-14 16:20:00 Outpatient MATEO ANTHONY [id number] [facility] 2023-10-14 14:30:00 2023-10-14 14:30:00 Outpatient MELISSA RAJPUT [id number] [facility] 2023-10-06 09:00:00 2023-10-06 09:00:00 Outpatient GIDEON RODRIGUEZ [id number] [facility] 2023-10-06 00:00:00 2023-10-06 00:00:00 Outpatient PREADRIANO POWELL MELISSA RAJPUT [id number] [facility] 2023-10-05 07:45:00 2023-10-05 07:45:00 Outpatient UDOETGIDEON LANDRY MELISSA RAJPUT [id number] [facility] 2023-10-01 10:50:00 2023-10-01 10:50:00 Outpatient LAB90 MELISSA RAJPUT [id number] [facility] 2023-10-01 10:00:00 2023-10-01 10:00:00 Outpatient PREADRIANO POWELL MELISSA RAJPUT [id number] [facility] 2023-09-28 00:00:00 2023-09-28 00:00:00 Outpatient MELISSA RAJPUT [id number] [facility] 2023-09-27 09:40:00 2023-09-27 09:40:00 Outpatient UDOETGIDEON LANDRY MELISSA RAJPUT [id number] [facility] 2023-09-27 09:40:00 2023-09-27 09:40:00 Outpatient 1, OPTICAL MELISSA RAJPUT [id number] [facility] 2023-09-27 00:00:00 2023-09-27 00:00:00 Outpatient UDMATTIETGIDEON LANDRY MELISSA RAJPUT [id number] [facility] 2023-09-23 00:00:00 2023-09-23 00:00:00 Outpatient MATT FLORESED MELISSA RAJPUT [id number] [facility] 2023-09-22 00:00:00 2023-09-22 00:00:00 Outpatient MELISSA RAJPUT [id number] [facility] 2023-09-22 00:00:00 2023-09-22 00:00:00 Outpatient DEANNE KAUR [id number] [facility] 2023-09-21 00:00:00 2023-09-21 00:00:00 Outpatient DEANNE KAUR [id number] [facility] 2023-09-20 10:40:00 2023-09-20 10:40:00 Outpatient LABAnn RAJPUT MELISSA [id number] [facility] 2023-09-14 00:00:00 2023-09-14 00:00:00 Outpatient PREZAS, ADRIANO RAJPUT MELISSA [id number] [facility] 2023-09-13 00:00:00 2023-09-13 00:00:00 Outpatient PREZAS, ADRIANO RAJPUT MELISSA [id number] [facility] 2023-09-10 00:00:00 2023-09-10 00:00:00 Outpatient PREZAS, ADRIANO RAJPUT MELISSA [id number] [facility] 2023-09-10 00:00:00 2023-09-10 00:00:00 Outpatient PREZAS, ADRIANO MELISSA MELISSA [id number] [facility] 2023-08-26 14:15:00 2023-08-26 14:15:00 Outpatient PREZAS, ADRIANO MELISSA RAJPUT [id number] [facility] 2023-08-10 09:45:00 2023-08-10 09:45:00 Outpatient PREZAS, ADRIANO MELISSA RAJPUT [id number] [facility] 2023-07-28 14:50:00 2023-07-28 14:50:00 Outpatient UDOETUK, GIDEON RAJPUT [id number] [facility] 2023-07-28 14:45:00 2023-07-28 14:45:00 Outpatient 1, OPTICAL MELISSA RAJPUT [id number] [facility] 2023-07-19 13:00:00 2023-07-19 13:00:00 Outpatient UDOETUK, GIDEON RAJPUT [id number] [facility] 2023-06-21 11:30:00 2023-06-21 11:30:00 Outpatient PREZAS, ADRIANO MELISSA RAJPUT [id number] [facility] 2023-06-01 11:45:00 2023-06-01 11:45:00 Outpatient PREZAS, ADRIANO MELISSA RAJPUT [id number] [facility] 2023-05-28 00:00:00 2023-05-28 00:00:00 Outpatient PREZAADRIANO Resendez MELISSA [id number] [facility] 2023-05-27 08:30:00 2023-05-27 08:30:00 Outpatient DEANNE KAUR MELISSA RAJPUT [id number] [facility] 2023-05-24 08:40:00 2023-05-24 08:40:00 Outpatient LAB90 MELISSA RAJPUT [id number] [facility] 2023-05-24 00:00:00 2023-05-24 00:00:00 Outpatient PREADRIANO POWELL MELISSA RAJPUT [id number] [facility] 2023-05-21 09:55:00 2023-05-21 09:55:00 Outpatient LAB47 MELISSA RAJPUT [id number] [facility] 2023-05-21 09:20:00 2023-05-21 09:20:00 Outpatient ROBERT, KESHAWN RAJPUT [id number] [facility] 2023-05-14 00:00:00 2023-05-14 00:00:00 Outpatient HAMPRINCE MELISSA RJAPUT [id number] [facility] 2023-05-12 09:30:00 2023-05-12 09:30:00 Outpatient LAB90 MELISSA RAJPUT [id number] [facility] 2023-05-11 12:20:00 2023-05-11 12:20:00 Outpatient LAB90 MELISSA RAJPUT [id number] [facility] 2023-04-16 10:20:00 2023-04-16 10:20:00 Outpatient ROBERT, KESHAWN MELISSA RAJPUT [id number] [facility] 2023-04-13 09:40:00 2023-04-13 09:40:00 Outpatient TOMOGRAPHY, BAYCP MELISSA RAJPUT [id number] [facility] 2023-04-13 09:40:00 2023-04-13 09:40:00 Outpatient NOCK, MATEO RAJPUT [id number] [facility] 2023-04-08 14:00:00 2023-04-08 14:00:00 Outpatient PREZAS, ADRIANO MELISSA RAJPUT [id number] [facility] 2023-04-06 13:20:00 2023-04-06 13:20:00 Outpatient KESHAWN JONES MELISSA RAJPUT [id number] [facility] 2023-04-01 00:00:00 2023-04-01 00:00:00 Outpatient PREZAS, ADRIANO RAJPUT [id number] [facility] 2023-03-17 16:20:00 2023-03-17 16:20:00 Outpatient KHASHAB IVIS RAJPUT [id number] [facility] 2023-03-17 16:00:00 2023-03-17 16:00:00 Outpatient PREZAS, ADRIANO RAJPUT [id number] [facility] 2023-03-17 14:45:00 2023-03-17 14:45:00 Outpatient MICHAELKEMAR UYN [id number] [facility] 2023-03-16 10:00:00 2023-03-16 10:00:00 Outpatient PURCELLESTHER RAMOS [id number] [facility] 2023-03-15 08:40:00 2023-03-15 08:40:00 Outpatient SYDNIASHAB, PATRICKRAMIREZ RAJPUT [id number] [facility] 2023-03-12 13:30:00 2023-03-12 13:30:00 Outpatient PREZAS, ADRIANO RAJPUT [id number] [facility] 2023-03-02 12:20:00 2023-03-02 12:20:00 Outpatient KEMAR RODRIGUEZ [id number] [facility] 2023-03-02 12:00:00 2023-03-02 12:00:00 Outpatient PURCELLESTHER [id number] [facility] 2023-03-01 00:00:00 2023-03-01 00:00:00 Outpatient PREZAS, ADRIANO RAJPUT [id number] [facility] 2023-02-23 21:41:00 2023-02-24 01:28:00 Emergency X KEATON PATIÑO [facility] [id number] [facility] 2023-02-23 21:41:00 2023-02-24 01:28:00 Emergency Keaton Patiño [facility] [id number] [facility] 2023-02-24 00:00:00 2023-02-24 00:00:00 Outpatient PATRICK HOOVERRAMIREZ MELISSA RAJPUT [id number] [facility] 2023-02-23 00:00:00 2023-02-23 00:00:00 Outpatient ESTHER PURCELL [id number] [facility] 2023-02-23 00:00:00 2023-02-23 00:00:00 Outpatient ADRIANO AGEE [id number] [facility] 2023-02-23 00:00:00 2023-02-23 00:00:00 Outpatient PREADRIANO POWELL [id number] [facility] 2023-02-22 00:00:00 2023-02-22 00:00:00 Outpatient ESTHER PURCELL [id number] [facility] 2023-02-22 00:00:00 2023-02-22 00:00:00 Outpatient MD MELISSA NOBLE [id number] [facility] 2023-02-22 00:00:00 2023-02-22 00:00:00 Outpatient TANGELA HERNANDEZ [id number] [facility] 2023-02-22 00:00:00 2023-02-22 00:00:00 Outpatient ONLYNEGAR [id number] [facility] 2023-02-18 00:00:00 2023-02-18 00:00:00 Outpatient PREADRIANO POWELL [id number] [facility] 2023-02-16 14:05:00 2023-02-16 14:05:00 Outpatient LAB MELISSA RAJPUT [id number] [facility] 2023-02-16 11:40:00 2023-02-16 11:40:00 Outpatient HERNANDEZTANGELA RODRIGUEZ MELISSA RAJPUT [id number] [facility] 2023-02-16 11:00:00 2023-02-16 11:00:00 Outpatient ESTHER PURCELL MELISSA RAJPUT [id number] [facility] 2023-02-16 00:00:00 2023-02-16 00:00:00 Outpatient \\R\\RSOH_[place] PANRSOH PANRSOH [id number] PANRSOH 2023-02-16 00:00:00 2023-02-16 00:00:00 Outpatient MD MELISSA NOBLE [id number] [facility] 2023-02-15 00:00:00 2023-02-15 00:00:00 Outpatient MD MELISSA NOBLE [id number] [facility] 2023-02-10 15:00:00 2023-02-10 15:00:00 Outpatient TANGELA HERNANDEZ MELISSA RAJPUT [id number] [facility] 2023-02-09 00:00:00 2023-02-09 00:00:00 Outpatient MELISSA RAJPUT [id number] [facility] 2023-02-03 14:30:00 2023-02-03 14:30:00 Outpatient LIZETH FLORES [id number] [facility] 2023-02-03 13:45:00 2023-02-03 13:45:00 Outpatient KEMAR RODRIGUEZ [id number] [facility] 2023-01-21 14:45:00 2023-01-21 14:45:00 Outpatient LIZETH FLORES [id number] [facility] 2023-01-21 00:00:00 2023-01-21 00:00:00 Outpatient MELISSA RAJPUT [id number] [facility] 2023-01-21 00:00:00 2023-01-21 00:00:00 Outpatient KEMAR RODRIGUEZ [id number] [facility] 2023-01-20 11:45:00 2023-01-20 11:45:00 Outpatient KEMAR RODRIGUEZ MELISSA RAJPUT [id number] [facility] 2023-01-13 08:45:00 2023-01-13 08:45:00 Outpatient CHATO Garcia MELISSA RAJPUT [id number] [facility] 2023-01-13 08:20:00 2023-01-13 08:20:00 Outpatient MORMATTIEChitraGIDEON LANDRY MELISSA RAJPUT [id number] [facility] 2023-01-08 00:00:00 2023-01-08 00:00:00 Outpatient ADRIANO AGEE MELISSA RAJPUT [id number] [facility] 2023-01-07 14:05:00 2023-01-07 14:05:00 Outpatient MELISSA RAJPUT [id number] [facility] 2023-01-07 14:00:00 2023-01-07 14:00:00 Outpatient MELISSA RAJPUT [id number] [facility] 2023-01-06 15:10:00 2023-01-06 15:10:00 Outpatient GIDEON RODRIGUEZ MELISSA RAJPUT [id number] [facility] 2022-12-29 15:00:00 2022-12-29 15:00:00 Outpatient ERIC DURBIN MELISSA RAJPUT [id number] [facility] 2022-12-29 00:00:00 2022-12-29 00:00:00 Outpatient ADRIANO AGEE MELISSA RAJPUT [id number] [facility] 2022-12-28 00:00:00 2022-12-28 00:00:00 Outpatient MD MELISSA NOBLE [id number] [facility] 2022-12-25 00:00:00 2022-12-25 00:00:00 Outpatient SEBASTIAN CHUNG [id number] [facility] 2022-12-21 00:00:00 2022-12-21 00:00:00 Outpatient ANDREI MAR [id number] [facility] 2022-12-21 00:00:00 2022-12-21 00:00:00 Outpatient PREZAS, ADRIANO RAJPUT MELISSA [id number] [facility] 2022-12-14 00:00:00 2022-12-14 00:00:00 Outpatient PREZAS, ADRIANO RAJPUT MELISSA [id number] [facility] 2022-12-11 14:15:00 2022-12-11 14:15:00 Outpatient LAB90 MELISSA MELISSA [id number] [facility] 2022-12-11 13:45:00 2022-12-11 13:45:00 Outpatient PREZAS, ADRIANO RAJPUT MELISSA [id number] [facility] 2022-12-06 00:00:00 2022-12-06 00:00:00 Outpatient PREZAS, ADRIANO RAJPUT MELISSA [id number] [facility] 2022-11-27 13:30:00 2022-11-27 13:30:00 Outpatient PREZAS, ADRIANO RAJPUT MELISSA [id number] [facility]-27 08:30:00 2022-11-27 08:30:00 Outpatient MICHAELKEMAR MELISSA MELISSA [id number] [facility] 2022-11-23 00:00:00 2022-11-23 00:00:00 Outpatient PREZAS, ADRIANO RAJPUT MELISSA [id number] [facility] 2022-11-18 00:00:00 2022-11-18 00:00:00 Outpatient PREZAS, ADRIANO MELISSA RAJPUT [id number] [facility] 2022-11-16 14:30:00 2022-11-16 14:30:00 Outpatient MELISSA MELISSA [id number] [facility] 2022-11-16 00:00:00 2022-11-16 00:00:00 Outpatient PREZAS, ADRIANO MELISSA RAJPUT [id number] [facility] 2022-11-16 00:00:00 2022-11-16 00:00:00 Outpatient PREZAS, ADRIANO MELISSA RAJPUT [id number] [facility] 2022-11-16 00:00:00 2022-11-16 00:00:00 Outpatient PREZAS, ADRIANO MELISSATAPAN RAJPUT [id number] [facility] 2022-11-11 11:30:00 2022-11-11 11:30:00 Outpatient PREZASADRIANO MELISSA RAJPUT [id number] [facility] 2022-11-05 15:00:00 2022-11-05 15:00:00 Outpatient PURCELL, ESTHER MELISSA RAJPUT [id number] [facility] 2022-11-02 00:00:00 2022-11-02 00:00:00 Outpatient PURCELL, ESTHER MELISSA RAJPUT [id number] [facility] 2022-11-02 00:00:00 2022-11-02 00:00:00 Outpatient PREZAS, ADRIANO MELISSA RAJPUT [id number] [facility] 2022-11-02 00:00:00 2022-11-02 00:00:00 Outpatient PREZASADRIANO MELISSA RAJPUT [id number] [facility] 2022-10-30 13:40:00 2022-10-30 13:40:00 Outpatient UDYAIRGIDEON MELISSA RAJPUT [id number] [facility] 2022-10-30 13:35:00 2022-10-30 13:35:00 Outpatient TOMOGRAPHY, FBJD [facility] MELISSA RAJPUT [id number] [facility] 2022-10-30 10:30:00 2022-10-30 10:30:00 Outpatient KEMAR RODRIGUEZ [id number] [facility] 2022-10-30 00:00:00 2022-10-30 00:00:00 Outpatient PREZASADRIANO MELISSA RAJPUT [id number] [facility] 2022-10-30 00:00:00 2022-10-30 00:00:00 Outpatient PREZAS ADRIANO RAJPUT [id number] [facility] 2022-10-30 00:00:00 2022-10-30 00:00:00 Outpatient MEILSSA RAJPUT [id number] [facility] 2022-10-29 12:40:00 2022-10-29 12:40:00 Outpatient LAB90 MELISSA RAJPUT [id number] [facility] 2022-10-28 16:20:00 2022-10-28 16:20:00 Outpatient IVIS HOOVER MELISSA RAJPUT [id number] [facility] 2022-10-27 14:45:00 2022-10-27 14:45:00 Outpatient SHMUEL HAGEN MELISSA RAJPUT [id number] [facility] 2022-10-26 16:00:00 2022-10-26 16:00:00 Outpatient IVIS HOOVER MELISSA RAJPUT [id number] [facility] 2022-10-26 14:30:00 2022-10-26 14:30:00 Outpatient NUHA WINSTON MELISSA RAJPUT [id number] [facility] 2022-10-26 14:15:00 2022-10-26 14:15:00 Outpatient MELISSA RAJPUT [id number] [facility] 2022-10-23 14:30:00 2022-10-23 14:30:00 Outpatient SINDYEDGARGIDEON MELISSA RAJPUT [id number] [facility] 2022-10-19 08:50:00 2022-10-19 08:50:00 Outpatient NUHA WINSTON MELISSA RAJPUT [id number] [facility] 2022-10-16 00:00:00 2022-10-16 00:00:00 Outpatient NUHA WINSTON MELISSA RAJPUT [id number] [facility] 2022-10-13 15:20:00 2022-10-13 15:20:00 Outpatient MATEO ANTHONY [id number] [facility] 2022-10-13 14:00:00 2022-10-13 14:00:00 Outpatient VF53 MELISSA RAJPUT [id number] [facility] 2022-10-13 10:20:00 2022-10-13 10:20:00 Outpatient LEONID ROSE [id number] [facility] 2022-10-02 00:00:00 2022-10-02 00:00:00 Outpatient MD MELISSA NOBLE [id number] [facility] 2022-10-01 00:00:00 2022-10-01 00:00:00 Outpatient PREZAS, ADRIANO RAJPUT MELISSA [id number] [facility] 2022-09-30 00:00:00 2022-09-30 00:00:00 Outpatient PREZASADRIANO MELISSA [id number] [facility] 2022-09-30 00:00:00 2022-09-30 00:00:00 Outpatient HAM, PRINCE MELISSA MELISSA [id number] [facility] 2022-09-28 00:00:00 2022-09-28 00:00:00 Outpatient NOCKMATEO MELISSA RAJPUT [id number] [facility] 2022-09-28 00:00:00 2022-09-28 00:00:00 Outpatient PREZAS, ADRIANO MELISSA MELISSA [id number] [facility] 2022-09-19 00:00:00 2022-09-19 00:00:00 Outpatient PREZAS, ADRIANO RAJPUT MELISSA [id number] [facility] 2022-09-15 00:00:00 2022-09-15 00:00:00 Outpatient PREZAS, ADRIANO MELISSA RAJPUT [id number] [facility] 2022-09-14 11:55:00 2022-09-14 11:55:00 Outpatient LABAnn MELISSA RAJPUT [id number] [facility] 2022-09-14 00:00:00 2022-09-14 00:00:00 Outpatient HAMPRINCE AYALA MELISSA RAJPUT [id number] [facility] 2022-09-08 00:00:00 2022-09-08 00:00:00 Outpatient ROBERT, KESHAWN RAJPUT [id number] [facility] 2022-09-07 12:00:00 2022-09-07 12:00:00 Outpatient ROBERT, KESHAWN RAJPUT [id number] [facility] 2022-09-04 00:00:00 2022-09-04 00:00:00 Outpatient PREZASADRIANO MELISSA RAJPUT [id number] [facility] 2022-09-04 00:00:00 2022-09-04 00:00:00 Outpatient PREADRIANO POWELL MELISSA RAJPUT [id number] [facility] 2022-09-03 15:15:00 2022-09-03 15:15:00 Outpatient PURCELL, ESTHER RAJPUT [id number] [facility] 2022-09-02 00:00:00 2022-09-02 00:00:00 Outpatient MD MELISSA NOBLE [id number] [facility] 2022-09-01 00:00:00 2022-09-01 00:00:00 Outpatient MD MELISSA NOBLE [id number] [facility] 2022-09-01 00:00:00 2022-09-01 00:00:00 Outpatient PREZAMal ADRIANO RAJPUT [id number] [facility] 2022-08-31 00:00:00 2022-08-31 00:00:00 Outpatient PURCELL, ESTHER RAJPUT [id number] [facility] 2022-08-27 13:30:00 2022-08-27 13:30:00 Outpatient PRESHERRY ADRIANO RAJPUT [id number] [facility] 2022-08-19 11:30:00 2022-08-19 11:30:00 Outpatient GIDEON RODRIGUEZ [id number] [facility] 2022-08-04 13:00:00 2022-08-04 13:00:00 Outpatient UDOETUKGIDEON [id number] [facility] 2022-07-30 00:00:00 2022-07-30 00:00:00 Outpatient HAM PRINCEKARI RAJPUT [id number] [facility] 2022-07-28 00:00:00 2022-07-28 00:00:00 Outpatient MATEO ANTHONY [id number] [facility] 2022-07-28 00:00:00 2022-07-28 00:00:00 Outpatient PREZAS ADRIANO RAJPUT [id number] [facility] 2022-07-28 00:00:00 2022-07-28 00:00:00 Outpatient PREZAS, ADRIANO RAJPUT MELISSA [id number] [facility] 2022-07-19 00:00:00 2022-07-19 00:00:00 Outpatient PREZASADRIANOTAPAN RAJPUT [id number] [facility] 2022-07-15 13:15:00 2022-07-15 13:15:00 Outpatient MELISSA RAJPUT [id number] [facility] 2022-07-13 14:00:00 2022-07-13 14:00:00 Outpatient MATEO ANTHONY MELISSA RAJPUT [id number] [facility] 2022-07-10 00:00:00 2022-07-10 00:00:00 Outpatient PREZAS, ADRIANO MELISSA RAJPUT [id number] [facility] 2022-07-10 00:00:00 2022-07-10 00:00:00 Outpatient PREZAS, ADRIANO MELISSA RAJPUT [id number] [facility] 2022-07-09 13:30:00 2022-07-09 13:30:00 Outpatient LAB90 MELISSA RAJPUT [id number] [facility] 2022-07-07 00:00:00 2022-07-07 00:00:00 Outpatient PREZAS, ADRIANO MELISSA RAJPUT [id number] [facility] 2022-07-03 00:00:00 2022-07-03 00:00:00 Outpatient MD MELISSA NOBLE [id number] [facility] 2022-06-30 14:30:00 2022-06-30 14:30:00 Outpatient PREZAS, ADRIANO MELISSA RAJPUT [id number] [facility] 2022-06-29 14:30:00 2022-06-29 14:30:00 Outpatient GIDEON RODRIGUEZ [id number] [facility] 2022-06-29 13:15:00 2022-06-29 13:15:00 Outpatient 1, CHATO RAJPUT [id number] [facility] 2022-06-24 11:00:00 2022-06-24 11:00:00 Outpatient PREZAADRIANO Resendez MELISSA RAJPUT [id number] [facility] 2022-06-24 00:00:00 2022-06-24 00:00:00 Outpatient PREZAADRIANO Resendez MELISSA RAJPUT [id number] [facility] 2022-06-24 00:00:00 2022-06-24 00:00:00 Outpatient NOCKMATEO MELISSA RAJPUT [id number] [facility] 2022-06-22 11:30:00 2022-06-22 11:30:00 Outpatient IVT, GABY RAJPUT [id number] [facility] 2022-06-22 00:00:00 2022-06-22 00:00:00 Outpatient MELISSA RAJPUT [id number] [facility] 2022-06-22 00:00:00 2022-06-22 00:00:00 Outpatient PREZAADRIANO Resendez MELISSA RAJPUT [id number] [facility] 2022-06-19 15:40:00 2022-06-19 15:40:00 Outpatient ROBERTKESHAWN Kamara MELISSA RAJPUT [id number] [facility] 2022-06-19 14:00:00 2022-06-19 14:00:00 Outpatient ESTHER PURCELL [id number] [facility] 2022-06-19 00:00:00 2022-06-19 00:00:00 Outpatient CARLTON HERNANDEZ [id number] [facility] 2022-06-17 00:00:00 2022-06-17 00:00:00 Outpatient NOCSantosNESSMATEOBRENTON RAJPUT [id number] [facility] 2022-06-15 00:00:00 2022-06-15 00:00:00 Outpatient PREADRIANO POWELL MELISSA RAJPUT [id number] [facility] 2022-06-15 00:00:00 2022-06-15 00:00:00 Outpatient CARLTON HERNANDEZ [id number] [facility] 2022-06-12 14:20:00 2022-06-12 14:20:00 Outpatient KUMARISMA DUFFY MELISSA RAJPUT [id number] [facility] 2022-06-09 11:30:00 2022-06-09 11:30:00 Outpatient INFUSION, GABY RAJPUT [id number] [facility] 2022-[facility]-02 00:00:00 2022-06-02 00:00:00 Outpatient RUBY, ANGELA MELISSA RAJPUT [id number] [facility] 2022-06-01 14:00:00 2022-06-01 14:00:00 Outpatient PREZAS, ADRIANO MELISSA RAJPUT [id number] [facility] 2022-06-01 00:00:00 2022-06-01 00:00:00 Outpatient MARY CARLTONRUBEN RAJPUT [id number] [facility] 2022-05-26 10:00:00 2022-05-26 10:00:00 Outpatient IVT, GABY RAJPUT [id number] [facility] 2022-05-18 00:00:00 2022-05-18 00:00:00 Outpatient DIORZAIN HOLCOMB [id number] [facility] 2022-05-13 16:00:00 2022-05-13 16:00:00 Outpatient MELISSA RAJPUT [id number] [facility] 2022-05-12 11:35:00 2022-05-12 11:35:00 Outpatient TOMOGRAPHY, CK MELISSA RAJPUT [id number] [facility] 2022-05-12 11:05:00 2022-05-12 11:05:00 Outpatient TOMOGRAPHY, CK MELISSA RAJPUT [id number] [facility] 2022-05-12 10:40:00 2022-05-12 10:40:00 Outpatient MATEO ANTHONY [id number] [facility] 2022-05-11 14:30:00 2022-05-11 14:30:00 Outpatient ALANUHA COX [id number] [facility] 2022-05-08 10:00:00 2022-05-08 10:00:00 Outpatient PREZAS, ADRIANO MCWILLIAMSTAPAN RAJPUT [id number] [facility] 2022-05-07 16:00:00 2022-05-07 16:00:00 Outpatient MATTHEW ASHFORD MELISSA RAJPUT [id number] [facility] 2022-05-06 00:00:00 2022-05-06 00:00:00 Outpatient MELISSA RAJPUT [id number] [facility] 2022-05-05 07:50:00 2022-05-05 07:50:00 Outpatient MELISSA RAJPUT [id number] [facility] 2022-05-05 07:30:00 2022-05-05 07:30:00 Outpatient [facility]JPUT [id number] [facility]:00:00 2022-05-05 00:00:00 Outpatient PREZAS, ADRIANO MELISSA RAJPUT [id number] [facility] 00:00:00 2022-05-05 00:00:00 Outpatient PHOEBE ROWE MELISSA RAJPUT [id number] [facility] 2022-05-05 00:00:00 2022-05-05 00:00:00 Outpatient PREZAS, ADRIANO MELISSA RAJPUT [id number] [facility] 00:00:00 2022-05-05 00:00:00 Outpatient MELISSA RAJPUT [id number] [facility] 2022-05-01 14:30:00 2022-05-01 14:30:00 Outpatient LAB90 MELISSA RAJPUT [id number] [facility] 2022-05-01 13:45:00 2022-05-01 13:45:00 Outpatient PREZAS, ADRIANO MELISSA RAJPUT [id number] [facility] 2022-04-22 16:15:00 2022-04-22 16:15:00 Outpatient MELISSA RAJPUT [id number] [facility] 2022-04-22 10:00:00 2022-04-22 10:00:00 Outpatient IVIS HOOVER [id number] Melissa Seybold 2022-04-10 16:00:00 2022-04-10 16:00:00 Outpatient MELISSA RAJPUT [id number] [facility] 2022-04-10 00:00:00 2022-04-10 00:00:00 Outpatient PREZAS, ADRIANO RAJPUT [id number] Melissa Gratn 2022-04-09 00:00:00 2022-04-09 00:00:00 Outpatient PREZAS, ADRIANO RAJPUT [id number] [facility] 2022-04-09 00:00:00 2022-04-09 00:00:00 Outpatient PREZAS, ADRIANO RAJPUT [id number] [facility] 2022-04-09 00:00:00 2022-04-09 00:00:00 Outpatient PREZAS, ADRIANO RAJPUT [id number] [facility] 2022-04-08 14:15:00 2022-04-08 14:15:00 Outpatient LAB90 MELISSA RAJPUT [id number] [facility] 2022-04-07 00:00:00 2022-04-07 00:00:00 Outpatient PREZAS, ADRIANO RAJPUT [id number] Melissa [facility] 2022-04-06 13:40:00 2022-04-06 13:40:00 Outpatient LAB90 MELISSA RAJPUT [id number] [facility] 2022-04-03 15:15:00 2022-04-03 15:15:00 Outpatient PREZAS, ADRIANO RAJPUT [id number] [facility] 2022-04-01 10:30:00 2022-04-01 10:30:00 Outpatient R ANDREW VERDUZCO OGECHUKWU [facility] [id number] [facility] 2022-04-01 10:30:00 2022-04-01 10:30:00 Outpatient R ANDREW VERDUZCO OGECHUKWU [facility] [id number] [facility] 2022-02-26 14:58:07 2022-02-26 14:58:07 Outpatient SFA ERICK [id number] Matthew Brown 2022-02-20 14:15:19 2022-02-20 14:15:19 Outpatient [facility] [id number] Matthew Brown 2022-02-11 09:20:44 2022-02-11 09:20:[address] [facility] [id number] Matthew Brown 2022-02-05 11:38:34 2022-02-05 11:38:34 Outpatient [place] [id number] Matthew Brown 2022-02-05 00:00:00 2022-02-05 00:00:00 Outpatient Visit [id number] 10:42:46 2021-11-17 10:42:46 Outpatient [facility] [id number] Matthew Brown 2021-11-13 15:06:22 2021-11-13 15:06:22 Outpatient [place] [id number] Matthew Brown 2021-11-13 00:00:00 2021-11-13 00:00:00 Outpatient Visit [id number] 2021-10-09 00:00:00 2021-10-09 00:00:00 Outpatient ROSETTA FINNEY [facility] [id number] [facility] 2021-10-01 00:00:00 2021-10-01 00:00:00 Patient Outreach Malini Muñoz [facility] [id number] [id number] [id number] [facility] 2021-10-01 00:00:00 2021-10-01 00:00:00 Telephone Malini Muñoz [place] [id number] [id number] [id number] [facility] 2021-09-30 15:00:00 2021-09-30 16:30:37 Outpatient R ANDREW VERDUZCO OGECHUKWU [facility] [id number] [facility] 2021-09-30 15:00:00 2021-09-30 16:30:37 Outpatient R ANDREW VERDUZCO ANDREW [facility] [id number] [facility] 2021-09-30 15:00:00 2021-09-30 16:30:37 Office Visit DaxAnderson moonshanice [facility] [id number] [id number] [id number] [id number] [facility] 2021-09-30 00:00:00 2021-09-30 00:00:00 Orders Only Doctor Unassigned, Dyess [facility] [id number] [id number] [id number] [id number] [facility] 2021-07-24 00:00:00 2021-07-24 00:00:00 Orders Only Doctor Unassigned, Dyess [facility] [id number] [id number] 4.2.7.2.686 [id number] [facility] 2021-04-11 14:20:00 2021-04-11 14:20:00 Outpatient R UNKNOWN, ATTENDING [facility] [id number] [facility] 2021-04-11 14:20:00 2021-04-11 14:20:00 Outpatient R UNKNOWN, ATTENDING [facility] [id number] [facility] 2021-04-07 21:43:00 2021-04-08 01:09:00 Emergency X LEXA GOFF [facility] ERT [id number] [facility] 2021-04-07 21:43:00 2021-04-08 01:09:00 Emergency Lexa Goff [facility] [id number] 350.1.13.10 4.2.7.2.686 [id number] [facility] 2019-08-21 08:00:00 2019-08-21 08:00:00 Outpatient R LEVY, ROSREZAKimberly [facility] [id number] [facility] 2019-07-24 21:47:47 2019-07-25 02:18:00 Emergency Santos AMADO [facility] ERT [id number] [facility] Results Test Description Test Time Test Comments Results Result Co mments Source [facility] [id number] 18:40:14* Test Item Value Reference Range Interpretation Comme nts VENTRICULAR RATE (test code = 94400) BPM ATRIAL RATE (test code = 25130) BPM P-R INTERVAL (test code = 37525) 134 ms QRS DURATION (test code = 12658) 80 ms Q-T INTERVAL (test code = 18888) 408 ms QTC CALCULATION(BEZE (test code = 70446) 437 ms CALCULATED P AXIS (test code = 26427) degrees CALCULATED R AXIS (test code = 50530) degrees CALCULATED T AXIS (test code = 69479) degrees DIAGNOSIS (test code = 67095) Normal sinus rhythmPossible Inferior infarct , age undeterminedPoor R-wave progressionBorderline ECGNo previous ECGs availableConfirmed by Radha MCCALL ([id number]) on 11/11/2022 1:40:13 PM Melissa Grant - ExternalLIPID [id number] 05:52:40* Test Item Value Reference Range Interpretation [...] SPECIMENS. FOR MOREINFORMATION, SEE CLIENT ANNOUNCEMENT AT [email or web address] /CalcLDL-C RISK RATIO LDL/HDL (test code = 223) 2.22 RATIO <3.22 COMPREHENSIVE METABOLIC [id number] 05:52:40* Test Item Value Reference Range Interpretation Comme nts GLUCOSE (test code = 2216) 166 MG/DL 70-99 H BUN (test code = 2207) 33 MG/DL 6-20 H CREATININE (test code = 221) 1.77 MG/DL 0.60-1.30 H eGFR (2020 CKD-EPI) (test code = 80769) 35 ML/MIN/1.73 >60 L CALC BUN/CREAT (test [...] ALL TESTING PERFORMED [facility] [address] [place], [place] [id number] CHEMISTRY PHYSICS TEACHER: JAYCEE RAMIREZ M.D. [place] NUMBER [id number] [facility] [place]. [id number] HEMOGLOBIN [id number] 04:18:15* Test Item Value Reference Range Interpretation Comme [facility] HEMOGLOBIN A1c (test code = 57766) 7.5 % 4.2-5.6 H [employer] GUIDELINES FOR HGB A1C: [...] CONSIDER ALTERNATE TESTING OR LABORATORY CONSULTATION. HEMOGLOBIN [id number] 00:00:00* Test Item Value Reference Range Interpretation Comme [facility] HEMOGLOBIN A1c (test code = 76529) 7.5 % LIPID [id number] 00:00:00* Test Item Value Reference Range Interpretation Comme nts CHOLESTEROL (test code = 2210) 174 MG/DL TRIGLYCERIDES (test code = 2232) 192 MG/DL HDL CHOLESTEROL (test code = 2220) 45 MG/DL CALC LDL CHOL (test code = 2237) 100 MG/DL RISK RATIO LDL/HDL (test cod e = 2238) 2.22 RATIO COMPREHENSIVE METABOLIC [id number] 00:00:00* Test Item Value Reference Range Interpretation Comme nts GLUCOSE (test code = 2217) 166 MG/DL BUN (test code = 2208) 33 MG/DL CREATININE (test code = 2214) 1.77 MG/DL eGFR (2020 CKD-EPI) (test co de = 22191) 35 ML/MIN/1.73 CALC BUN/CREAT (test code = [...] = 2219) 8 U/L POCT HEMOGLOBIN A1C [id number] 21:21:00* Test Item Value Reference Range Interpretation Comme [facility] POCT HBA1C (test code = 4548-4) 8.2 % 4-6 A Lab Interpretation (test cod e = 07694-2) [facility]normal [facility] [id number] 05:24:49* Test Item Value Reference Range Interpretation Comme nts HEMOGLOBIN A1c (test code = 01581) 7.8 % 4.2-5.6 H [employer] GUIDELINES FOR HGB A1C: [...] CONSIDER ALTERNATE TESTING OR LABORATORY CONSULTATION. LIPID [id number] 05:18:45* Test Item Value Reference Range Interpretation [...] SPECIMENS. FOR MOREINFORMATION, SEE CLIENT ANNOUNCEMENT AT [email or web address] RISK RATIO LDL/HDL (test code = 2238) 3.54 RATIO <3.22 H COMPREHENSIVE METABOLIC [id number] 05:18:45* Test Item Value Reference Range Interpretation Comme nts GLUCOSE (test code = 221) 202 MG/DL 70-99 H BUN (test code = 220) 23 MG/DL 6-20 H CREATININE (test code = 2214) 1.57 MG/DL 0.60-1.30 H eGFR (2020 CKD-EPI) (test code = 82720) 41 ML/MIN/1.73 >60 L CALC BUN/CREAT (test [...] 5-40 UNLESS OTHERWISE INDICATED, ALL TESTING PERFORMED [facility] [address] [facility] [place] [address] CHEMISTRY PHYSICS TEACHER: JAYCEE RAMIREZ M.D. CLIA NUMBER [id number] [facility] [place] [place]. [id number] COMPREHENSIVE METABOLIC PANEL [ADDED]2021-07-26 00:00:00* Test Item Value Reference Range Interpretation Comme nts GLUCOSE (test code = 7) 202 MG/DL BUN (test code = 2208) 23 MG/DL CREATININE (test code = 2214) 1.57 MG/DL eGFR (2020 CKD-EPI) (test co de = 82652) 41 ML/MIN/1.73 CALC BUN/CREAT (test code = [...] Comme nts HEMOGLOBIN A1c (test code = 81040) 7.8 % LIPID PANEL [ADDED]2021-07-26 00:00:00* Test [...] eGFR (2020 CKD-EPI) (test co de = 38524) 41 ML/MIN/1.73 CALC BUN/CREAT (test code = [...] Comme nts HEMOGLOBIN A1c (test code = 42207) 7.8 % LIPID PANEL [ADDED]2021-07-26 00:00:00* Test Item Value Reference Range Interpretation Comme nts CHOLESTEROL (test code = 2210) 222 MG/DL TRIGLYCERIDES (test code = 2232) 313 MG/DL HDL CHOLESTEROL (test code = 2220) 39 MG/DL CALC LDL CHOL (test code = 2237) 138 MG/DL RISK RATIO LDL/HDL (test cod e = 2238) 3.54 RATIO HEMOGLOBIN [id number] 06:11:51* Test Item Value Reference Range Interpretation Comme nts HEMOGLOBIN A1c (test code = 32613) 10.8 % 4.2-5.6 H [employer] GUIDELINES FOR HGB A1C: [...] CONSIDER ALTERNATE TESTING OR LABORATORY CONSULTATION. LIPID [id number] 05:14:42* Test Item Value Reference Range Interpretation [...] SPECIMENS. FOR MOREINFORMATION, SEE CLIENT ANNOUNCEMENT AT [email or web address] /CalcLDL-C RISK RATIO LDL/HDL (test code = 2237) 2.90 RATIO <3.22 COMPREHENSIVE METABOLIC [id number] 05:14:42* Test Item Value Reference Range Interpretation Comme nts GLUCOSE (test code = 2216) 58 MG/DL 70-99 L BUN (test code = 2207) 19 MG/DL 6-20 CREATININE (test code = 2213) 1.40 MG/DL 0.60-1.30 H eGFR (2020 CKD-EPI) (test code = 59012) 47 ML/MIN/1.73 >60 L CALC BUN/CREAT (test code = 223) 14 RATIO 6-28 SODIUM (test code = 2230) 143 MEQ/L 133-146 POTASSIUM (test code = 2228) 4.7 MEQ/L 3.5-5.4 CHLORIDE (test code = 2215) 107 MEQ/L 95-107 CARBON DIOXIDE (test code = 220) 23 MEQ/L 19-31 CALCIUM (test code = 220) 9.0 MG/DL 8.5-10.5 PROTEIN, TOTAL (test code = 222) 7.0 G/DL 6.1-8.3 ALBUMIN (test code = 220) 3.5 G/DL 3.5-5.2 CALC GLOBULIN (test code [...] 5-40 UNLESS OTHERWISE INDICATED, ALL TESTING PERFORMED [facility] [address] [facility] [place] [address] CHEMISTRY PHYSICS TEACHER: JAYCEE RAMIREZ M.D. CLIA NUMBER [id number] [facility] [place] [place]. [id number] COMPREHENSIVE METABOLIC [id number] 00:00:00* Test Item Value Reference Range Interpretation Comme nts GLUCOSE (test code = 2217) 58 MG/DL BUN (test code = 2208) 19 MG/DL CREATININE (test code = 2214) 1.40 MG/DL eGFR (2020 CKD-EPI) (test co de = 15941) 47 ML/MIN/1.73 CALC BUN/CREAT (test code = [...] (test code = 2219) 11 U/L HEMOGLOBIN [id number] 00:00:00* Test Item Value Reference Range Interpretation Comme nts HEMOGLOBIN A1c (test code = 27300) 10.8 % LIPID [id number] 00:00:00* Test Item Value Reference Range Interpretation Comme nts CHOLESTEROL (test code = 2210) 235 MG/DL TRIGLYCERIDES (test code = 2232) 215 MG/DL HDL CHOLESTEROL (test code = 2220) 51 MG/DL CALC LDL CHOL (test code = 2237) 148 MG/DL RISK RATIO LDL/HDL (test cod e = 2238) 2.90 RATIO COMPREHENSIVE METABOLIC [id number] 00:00:00* Test Item Value Reference Range Interpretation Comme nts GLUCOSE (test code = 2217) 58 MG/DL BUN (test code = 2208) 19 MG/DL CREATININE (test code = 2214) 1.40 MG/DL eGFR (2020 CKD-EPI) (test co de = 89409) 47 ML/MIN/1.73 CALC BUN/CREAT (test code = [...] (test code = 2219) 11 U/L HEMOGLOBIN [id number] 00:00:00* Test Item Value Reference Range Interpretation Comme nts HEMOGLOBIN A1c (test code = 37596) 10.8 % LIPID [id number] 00:00:00* Test Item Value Reference Range Interpretation Comme nts CHOLESTEROL (test code = 2210) 235 MG/DL TRIGLYCERIDES (test code = 2232) 215 MG/DL HDL CHOLESTEROL (test code = 2220) 51 MG/DL CALC LDL CHOL (test code = 2237) 148 MG/DL RISK RATIO LDL/HDL (test cod e = 2238) 2.90 RATIO HEMOGLOBIN [id number] 11:23:29* Test Item Value Reference Range Interpretation Comme nts HEMOGLOBIN A1c (test code = 12882) 13.0 % 4.2-5.6 H [employer] GUIDELINES FOR HGB A1C: [...] OR LABORATORY CONSULTATION. CBC W/AUTO DIFF WITH [id number] 10:40:41* Test Item Value Reference Range Interpretation [...] 0.00-0.10 ABS NUCLEATED RBCS (test code = 95256) 0.00 K/UL 0.00-0.11 TSH, THIRD [id number] 06:03:58* Test Item Value Reference Range Interpretation Comme nts TSH, THIRD GENERATION (test code = 2821) 5.840 UIU/ML 0.400-4.100 H UNLESS OTHERWISE INDICATED, ALL TESTING PERFORMED [facility] [address] [place] [address] CHEMISTRY PHYSICS TEACHER: JAYCEE RAMIREZ M.D. [place] NUMBER [id number] [facility] [place]. [id number] LIPID [id number] 05:12:52* Test Item Value Reference Range Interpretation [...] SPECIMENS. FOR MOREINFORMATION, SEE CLIENT ANNOUNCEMENT AT [email or web address] CalcLDL-C RISK RATIO LDL/HDL (test code = 2238) 4.13 RATIO <3.22 H UNABLE TO DONNA CULATE COMPREHENSIVE METABOLIC [id number] 05:12:52* Test Item Value Reference Range Interpretation Comme nts GLUCOSE (test code = 2217) 304 MG/DL 70-99 H BUN (test code = 2208) 26 MG/DL 6-20 H CREATININE (test code = 2214) 1.81 MG/DL 0.60-1.30 H eGFR (2020 CKD-EPI) (test code = 15575) 34 ML/MIN/1.73 >60 L CALC BUN/CREAT (test [...] as normal/abnormal. ALKALINE PHOSPHATASE (test code = 4) 124 U/L 40-120 H AST (test code = 2218) 15 U/L 9-40 ALT (test code = 2219) 13 U/L 5-40 COMPREHENSIVE METABOLIC [id number] 00:00:00* Test Item Value Reference Range Interpretation Comme nts GLUCOSE (test code = 2217) 304 MG/DL BUN (test code = 2208) 26 MG/DL CREATININE (test code = 2214) 1.81 MG/DL eGFR (2020 CKD-EPI) (test co de = 27440) 34 ML/MIN/1.73 CALC BUN/CREAT (test code = [...] ALT (test code = 2219) 13 U/L [id number] 00:00:00* Test Item Value Reference Range Interpretation Comme nts TSH, THIRD GENERATION (test code = 2821) 5.840 UIU/ML CBC W/AUTO [id number] 00:00:00* Test Item Value Reference Range Interpretation [...] ABS NUCLEATED RBCS (test cod e = 79548) 0.00 K/UL HEMOGLOBIN [id number] 00:00:00* Test Item Value Reference Range Interpretation Comme nts HEMOGLOBIN A1c (test code = 02238) 13.0 % LIPID [id number] 00:00:00* Test Item Value Reference Range Interpretation Comme nts CHOLESTEROL (test code = 2210) 278 MG/DL TRIGLYCERIDES (test code = 2232) 553 MG/DL HDL CHOLESTEROL (test code = 2220) 38 MG/DL CALC LDL CHOL (test code = 2237) (NOTE) MG/DL RISK RATIO LDL/HDL (test cod e = 2238) 4.13 RATIO COMPREHENSIVE METABOLIC [id number] 00:00:00* Test Item Value Reference Range Interpretation Comme nts GLUCOSE (test code = 2217) 304 MG/DL BUN (test code = 2208) 26 MG/DL CREATININE (test code = 2214) 1.81 MG/DL eGFR (2020 CKD-EPI) (test co de = 39790) 34 ML/MIN/1.73 CALC BUN/CREAT (test code = [...] ALT (test code = 2219) 13 U/L [id number] 00:00:00* Test Item Value Reference Range Interpretation Comme nts TSH, THIRD GENERATION (test code = 2821) 5.840 UIU/ML CBC W/AUTO [id number] 00:00:00* Test Item Value Reference Range Interpretation [...] ABS NUCLEATED RBCS (test cod e = 26558) 0.00 K/UL HEMOGLOBIN [id number] 00:00:00* Test Item Value Reference Range Interpretation Comme nts HEMOGLOBIN A1c (test code = 63567) 13.0 % LIPID [id number] 00:00:00* Test Item Value Reference Range Interpretation Comme nts CHOLESTEROL (test code = 2210) 278 MG/DL TRIGLYCERIDES (test code = 2232) 553 MG/DL HDL CHOLESTEROL (test code = 2220) 38 MG/DL CALC LDL CHOL (test code = 2237) (NOTE) MG/DL RISK RATIO LDL/HDL (test cod e = 2238) 4.13 RATIO LIPID [id number] 04:41:06* Test Item Value Reference Range Interpretation [...] SPECIMENS. FOR MOREINFORMATION, SEE CLIENT ANNOUNCEMENT AT [email or web address]/ CalcLDL-C RISK RATIO LDL/HDL (test code = 223) 3.83 RATIO <3.22 H UNABLE TO DONNA CULATE COMPREHENSIVE METABOLIC [id number] 04:41:06* Test Item Value Reference Range Interpretation Comme nts GLUCOSE (test code = 2217) 87 MG/DL 70-99 BUN (test code = 2208) 19 MG/DL 6-20 CREATININE (test code = 2214) 1.31 MG/DL 0.60-1.30 H EFFECTIVE 2020, [facility] HAS IMPLEMENTED THE NKF-ASN RECOMMENDED KD-EPI EGFR REFIT CALCULATION THAT DOES NOT INCLUDE A COEFFICIENT FORRACE. FOR MORE INFORMATION, SEE ANNOUNCEMENT [email or web address] eGFR (2020 CKD-EPI) (test code = 39718) 51 ML/MIN/1.73 >60 L CALC BUN/CREAT (test [...] 5-40 UNLESS OTHERWISE INDICATED, ALL TESTING PERFORMED [facility] [address] [facility] [place] [address] CHEMISTRY PHYSICS TEACHER: JAYCEE RAMIREZ M.D. JAZIELIA NUMBER [id number] [facility] [place]. [id number] HEMOGLOBIN [id number] 02:36:52* Test Item Value Reference Range Interpretation Comme nts HEMOGLOBIN A1c (test code = 35908) 7.3 % 4.2-5.6 H [employer] GUIDELINES FOR HGB A1C: [...] ALTERNATE TESTING OR LABORATORY CONSULTATION. COMPREHENSIVE METABOLIC [id number] 00:00:00* Test Item Value Reference Range Interpretation Comme nts GLUCOSE (test code = 2217) 87 MG/DL BUN (test code = 2208) 19 MG/DL CREATININE (test code = 2214) 1.31 MG/DL eGFR (2020 CKD-EPI) (test co de = 32220) 51 ML/MIN/1.73 CALC BUN/CREAT (test code = [...] (test code = 2219) 13 U/L HEMOGLOBIN [id number] 00:00:00* Test Item Value Reference Range Interpretation Comme nts HEMOGLOBIN A1c (test code = 50195) 7.3 % LIPID [id number] 00:00:00* Test Item Value Reference Range Interpretation Comme nts CHOLESTEROL (test code = 2210) 230 MG/DL TRIGLYCERIDES (test code = 2232) 455 MG/DL HDL CHOLESTEROL (test code = 2220) 35 MG/DL CALC LDL CHOL (test code = 2237) (NOTE) MG/DL RISK RATIO LDL/HDL (test cod e = 2238) 3.83 RATIO COMPREHENSIVE METABOLIC [id number] 00:00:00* Test Item Value Reference Range Interpretation Comme nts GLUCOSE (test code = 2217) 87 MG/DL BUN (test code = 2208) 19 MG/DL CREATININE (test code = 2214) 1.31 MG/DL eGFR (2020 CKD-EPI) (test co de = 39084) 51 ML/MIN/1.73 CALC BUN/CREAT (test code = [...] (test code = 2219) 13 U/L HEMOGLOBIN [id number] 00:00:00* Test Item Value Reference Range Interpretation Comme nts HEMOGLOBIN A1c (test code = 78964) 7.3 % LIPID [id number] 00:00:00* Test Item Value Reference Range Interpretation Comme nts CHOLESTEROL (test code = 2210) 230 MG/DL TRIGLYCERIDES (test code = 2232) 455 MG/DL HDL CHOLESTEROL (test code = 2220) 35 MG/DL CALC LDL CHOL (test code = 2237) (NOTE) MG/DL RISK RATIO LDL/HDL (test cod e = 2238) 3.83 RATIO COMPREHENSIVE METABOLIC [id number] 00:00:00* Test Item Value Reference Range Interpretation Comme nts GLUCOSE (test code = 2217) 147 MG/DL BUN (test code = 2208) 23 MG/DL CREATININE (test code = 2214) 1.27 MG/DL eGFR AMER. (test cod e = 11278) 59 ML/MIN/1.73 eGFR NON- AMER. (test code = 51676) 51 ML/MIN/1.73 CALC BUN/CREAT (test code = [...] (test code = 2219) 11 U/L HEMOGLOBIN [id number] 00:00:00* Test Item Value Reference Range Interpretation Comme nts HEMOGLOBIN A1c (test code = 57601) 7.2 % LIPID [id number] 00:00:00* Test Item Value Reference Range Interpretation Comme nts CHOLESTEROL (test code = 2210) 250 MG/DL TRIGLYCERIDES (test code = 2232) 312 MG/DL HDL CHOLESTEROL (test code = 2220) 41 MG/DL CALC LDL CHOL (test code = 2237) 161 MG/DL RISK RATIO LDL/HDL (test cod e = 2238) 3.93 RATIO COMPREHENSIVE METABOLIC [id number] 00:00:00* Test Item Value Reference Range Interpretation Comme nts GLUCOSE (test code = 2217) 147 MG/DL BUN (test code = 2208) 23 MG/DL CREATININE (test code = 2214) 1.27 MG/DL eGFR AMER. (test cod e = 08757) 59 ML/MIN/1.73 eGFR NON- AMER. (test code = 04266) 51 ML/MIN/1.73 CALC BUN/CREAT (test code = 2235) 18 RATIO SODIUM (test code = 2231) 141 MEQ/L POTASSIUM (test code = 2228) 4.7 MEQ/L CHLORIDE (test code = 2215) 106 MEQ/L CARBON DIOXIDE (test code = 2206) 26 MEQ/L CALCIUM (test code = 2209) 9.1 MG/DL PROTEIN, TOTAL (test code = 2228) 7.4 G/DL ALBUMIN (test code = 220) 3.8 G/DL CALC GLOBULIN (test code = 2240) 3.6 G/DL CALC A/G RATIO (test code = 2234) 1.1 RATIO BILIRUBIN, TOTAL (test code = 2206) <0.2 MG/DL ALKALINE PHOSPHATASE (test code = 2203) 92 U/L AST (test code = 2218) 18 U/L ALT (test code = 2219) 11 U/L HEMOGLOBIN [id number] 00:00:00* Test Item Value Reference Range Interpretation Comme nts HEMOGLOBIN A1c (test code = 84168) 7.2 % LIPID [id number] 00:00:00* Test Item Value Reference Range Interpretation Comme nts CHOLESTEROL (test code = 2210) 250 MG/DL TRIGLYCERIDES (test code = 2232) 312 MG/DL HDL CHOLESTEROL (test code = 2220) 41 MG/DL CALC LDL CHOL (test code = 2237) 161 MG/DL RISK RATIO LDL/HDL (test cod e = 2238) 3.93 RATIO PAP TEST, THINPREP, [id number] 00:00:00* Test Item Value Reference Range Interpretation Comme nts SOURCE: (test code = 8001) Endocervical SLIDES: (test code = 8011) 1 LMP: (test code = 8021) 06/27/2020 SPECIMEN ADEQUACY: (test code = 14418) (NOTE) INTERPRETATION: (test code = 14018) NILM/NO EPITH. ABNORMALITY;SEE BELOW VP TRANSPORTATION: (test code = 8101) OSCAR Heaton(ASCP) QC TECHNOLOGIST: (test code = 8111) [facility](AS[facility])IAC LOCATION: (test code = 57095) (NOTE) CPT: (test code = 8140) (NOTE) PAP TEST, THINPREP, [id number] 00:00:00* Test Item Value Reference Range Interpretation Comme [facility] SOURCE: (test code = 8001) Endocervical SLIDES: (test code = 8011) 1 LMP: (test code = 8021) 06/27/2020 SPECIMEN ADEQUACY: (test code = 58621) (NOTE) INTERPRETATION: (test code = 83926) NILM/NO EPITH. ABNORMALITY;SEE BELOW VP TRANSPORTATION: (test code = 8101) OSCAR Heaton(ASCP) QC TECHNOLOGIST: (test code = 8111) [facility](ASCP)IAC LOCATION: (test code = 68418) (NOTE) CPT: (test code = 8140) (NOTE) CULTURE, [id number] 00:00:00* Test Item Value Reference Range Interpretation Comme [facility] CULTURE, URINE (test code = 53868) SPECIMEN NUMBER: [id number] CULTURE, [id number] 00:00:00* Test Item Value Reference Range Interpretation Comme [facility] CULTURE, URINE (test code = 74892) SPECIMEN NUMBER: [id number] HPV HIGH RISK WITH GENOTYPE, [id number] 00:00:00* Test Item Value Reference Range Interpretation Comme [facility] HPV HIGH RISK INTERP (test c ode = 87847) POSITIVE HPV 16 (test code = 88478) NEGATIVE HPV 18 (test code = 82018) NEGATIVE HPV, HR, OTHER GENOTYPES (te st code = 29847) POSITIVE HPV HIGH RISK WITH GENOTYPE, [id number] 00:00:00* Test Item Value Reference Range Interpretation Comme [facility] HPV HIGH RISK INTERP (test c ode = 99010) POSITIVE HPV 16 (test code = 76311) NEGATIVE HPV 18 (test code = 02484) NEGATIVE HPV, HR, OTHER GENOTYPES (te st code = 33058) POSITIVE VITAMIN D, 25 [id number] 00:00:00* Test Item Value Reference Range Interpretation Comme [facility] VITAMIN D, 25 OH (test code = 4958) TEST NOT PERFORMED NG/ML VITAMIN D, 25 [id number] 00:00:00* Test Item Value Reference Range Interpretation Comme nts VITAMIN D, 25 OH (test code = 4958) TEST NOT PERFORMED NG/ML CBC W/AUTO [id number] 00:00:00* Test Item Value Reference Range Interpretation [...] ABS NUCLEATED RBCS (test cod e = 15460) 0.00 K/UL CBC W/AUTO [id number] 00:00:00* Test Item Value Reference Range Interpretation [...] ABS NUCLEATED RBCS (test cod e = 65585) 0.00 K/UL COMPREHENSIVE METABOLIC [id number] 00:00:00* Test Item Value Reference Range Interpretation Comme nts GLUCOSE (test code = 2217) 300 MG/DL BUN (test code = 2208) 23 MG/DL CREATININE (test code = 2214) 1.24 MG/DL eGFR AMER. (test cod e = 83678) 60 ML/MIN/1.73 eGFR NON- AMER. (test code = 19258) 52 ML/MIN/1.73 CALC BUN/CREAT (test code = [...] ALT (test code = 2219) 12 U/L [id number] 00:00:00* Test Item Value Reference Range Interpretation Comme nts TSH, THIRD GENERATION (test code = 2821) 6.280 UIU/ML HEMOGLOBIN [id number] 00:00:00* Test Item Value Reference Range Interpretation Comme nts HEMOGLOBIN A1c (test code = 83682) 11.5 % LIPID [id number] 00:00:00* Test Item Value Reference Range Interpretation Comme nts CHOLESTEROL (test code = 2210) 260 MG/DL TRIGLYCERIDES (test code = 2232) 353 MG/DL HDL CHOLESTEROL (test code = 2220) 40 MG/DL CALC LDL CHOL (test code = 2237) 160 MG/DL RISK RATIO LDL/HDL (test cod e = 2238) 4.00 RATIO COMPREHENSIVE METABOLIC [id number] 00:00:00* Test Item Value Reference Range Interpretation Comme nts GLUCOSE (test code = 2217) 300 MG/DL BUN (test code = 2208) 23 MG/DL CREATININE (test code = 2214) 1.24 MG/DL eGFR AMER. (test cod e = 29823) 60 ML/MIN/1.73 eGFR NON- AMER. (test code = 99589) 52 ML/MIN/1.73 CALC BUN/CREAT (test code = [...] ALT (test code = 2219) 12 U/L [id number] 00:00:00* Test Item Value Reference Range Interpretation Comme nts TSH, THIRD GENERATION (test code = 2821) 6.280 UIU/ML HEMOGLOBIN [id number] 00:00:00* Test Item Value Reference Range Interpretation Comme nts HEMOGLOBIN A1c (test code = 95715) 11.5 % LIPID [id number] 00:00:00* Test Item Value Reference Range Interpretation Comme nts CHOLESTEROL (test code = 2210) 260 MG/DL TRIGLYCERIDES (test code = 2232) 353 MG/DL HDL CHOLESTEROL (test code = 2220) 40 MG/DL CALC LDL CHOL (test code = 2237) 160 MG/DL RISK RATIO LDL/HDL (test cod e = 2238) 4.00 RATIO COMPREHENSIVE METABOLIC [id number] 00:00:00* Test Item Value Reference Range Interpretation Comme nts GLUCOSE (test code = 2217) 313 MG/DL BUN (test code = 2208) 15 MG/DL CREATININE (test code = 2214) 0.71 MG/DL eGFR AMER. (test cod e = 32200) 123 ML/MIN/1.73 eGFR NON- AMER. (test code = 23689) 106 ML/MIN/1.73 CALC BUN/CREAT (test code = [...] (test code = 2219) 11 U/L LIPID [id number] 00:00:00* Test Item Value Reference Range Interpretation [...] (test code = 2821) 17.0 UIU/ML HEMOGLOBIN [id number] 00:00:00* Test Item Value Reference Range Interpretation Comme nts HEMOGLOBIN A1c (test code = 91471) 12.3 % CBC W/AUTO [id number] 00:00:00* Test Item Value Reference Range Interpretation [...] code = 1015) 408 K/UL COMPREHENSIVE METABOLIC [id number] 00:00:00* Test Item Value Reference Range Interpretation Comme nts GLUCOSE (test code = 2217) 313 MG/DL BUN (test code = 2208) 15 MG/DL CREATININE (test code = 2214) 0.71 MG/DL eGFR AMER. (test cod e = 93591) 123 ML/MIN/1.73 eGFR NON- AMER. (test code = 22658) 106 ML/MIN/1.73 CALC BUN/CREAT (test code = [...] (test code = 2219) 11 U/L LIPID [id number] 00:00:00* Test Item Value Reference Range Interpretation [...] (test code = 2821) 17.0 UIU/ML HEMOGLOBIN [id number] 00:00:00* Test Item Value Reference Range Interpretation Comme nts HEMOGLOBIN A1c (test code = 33641) 12.3 % CBC W/AUTO [id number] 00:00:00* Test Item Value Reference Range Interpretation [...] 09/07/2022 Performed by Keshawn Jones MD at [facility] ESOPHAGUS ENDOSCOPY 2023 LAPAROSCOPIC CHOLECYSTECTOMY 2023 TUBAL LIGATION UPPER GI ENDOSCOPY, BIOPSY N/A 09/07/2022 Performed by Keshawn Jones MD at [facility] Social History Tobacco Use Smoking status: [...] PPI for testing Keshawn Jones MD Gastroenterology [facility] 2023-04-16 10:46:10 [facility] Gastroenterology followup patient note CC: PASHA HPI: [...] 09/07/2022 Performed by Keshawn Jones MD at [facility] ESOPHAGUS ENDOSCOPY 2023 LAPAROSCOPIC CHOLECYSTECTOMY 2023 TUBAL LIGATION UPPER GI ENDOSCOPY, BIOPSY N/A 09/07/2022 Performed by Keshawn Jones MD at [facility] Social History Tobacco Use Smoking status: [...] RTC; 4 weeks Keshawn Jones MD Gastroenterology 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 [facility]
[2024-02-05 10:35] LABS: Absolute Lymphocytes (CBC) 0.8 K/uL (0.7-4.9); Absolute Monocytes 0.3 K/uL (0.1-1.3); Absolute Neutrophil 12.8 K/uL (1.8-8.0); Basophils % 0.3 % (0-1.3); Hemoglobin 9.7 g/dL (12.0-15.0); Lymphocytes % 5.8 % (15.3-44.8); MCH 31.2 pg (27.0-35.0); MCHC 33.5 g/dL (32.0-36.0); MCV 93.1 fL (80-100); MPV 7.9 fL (7.6-11.3); Monocytes % 2.2 % (3.3-12.3); Neutrophils % 91.7 % (41.7-73.7); Platelets 370 thou/uL (152-406); RBC Red Blood Cell Count 3.11 M/uL (3.86-4.86); Red Cell Distribution Width 11.7 % (12.1-15.2)
[2024-02-05 10:51] LABS: Albumin 3.1 g/dL (3.4-5.0); Albumin/Globulin Ratio 0.7 (1.1-1.8); Bilirubin Total 0.4 mg/dL (0.2-1.0); Globulin 4.2 g/dL (2.3-3.5); Protein, Total 7.3 g/dL (6.4-8.2)
[2024-02-05] MEDS ORDERED: FENTANYL CITR 100 MCG/2 ML ONE (10:59)
[2024-02-05 11:28] LABS: Band Neutrophils 3 % (0-1); Differential Total Cells Count 100; Lymphocytes 6 % (15-42); Segmented Neutrophils 91 % (40-80)
[2024-02-05 11:29] LABS: Blood Morphology Comment NOT SEEN (NOT SEEN); Monocytes 0 % (0-10); Platelet Estimate ADEQ
[2024-02-05] MEDS ORDERED: droPERidol 5 MG/2 ML VIAL ONE (11:31)
--- NOTE | 2024-02-05 11:31 | RAD REPORT ---
EXAMINATION: CT Abdomen Pelvis Wo Contrast CLINICAL INDICATION: Female, 49 years old. ABD PAIN TECHNIQUE: CT abdomen and pelvis was performed, without IV contrast, as per department protocol. Axia l, sagittal and coronal reconstructions were obtained. One or more of the following dose reduction techniques were used: Automated exposure control, adjustment of the mA and kV according to the patien t size, and iterative reconstruction. Unless otherwise specified, incidental findings do not require dedicated imaging follow-up. COMPARISON: 04/04/2023 FINDINGS: The lack of intravenous contrast limits the sensitivity of this exam for evaluation of solid visceral organs, vascular structures, and retroperitoneum. LOWER CHEST: The visualized lung bases are clear. LIVER: Normal in size and contour. No focal lesion. BILIARY SYSTEM: Status post cholecystectomy. SPLEEN: Normal size. No focal lesion. PANCREAS: No mass, ductal dilation, or lucia-pancreatic fluid. ADRENALS: Normal; no mass. KIDNEYS AND URETERS: Normal size and contour. No hydronephrosis. Nonobstructing small bilateral renal calculi not exceeding 2 mm. Some other calcifications at the renal efrain, probably vascular. URINARY BLADDER: Normal contour. GASTROINTESTINAL TRACT: No evidence of bowel obstruction, significant free fluid, free air or abscess . APPENDIX: Normal appendix. LYMPH NODES: No lymphadenopathy. MUSCULOSKELETAL: No acute or suspicious osseous abnormality. ADDITIONAL FINDINGS: Stable nonspecific fullness in the right adnexal region. Bilateral pelvic calcif ications which may relate to phleboliths. CT is suboptimal for evaluation of. IMPRESSION: Nonobstructing small bilateral renal calculi. No other acute or concerning abnormalities in the abdomen or pelvis, with evaluation limited by lack of IV contrast. Adnexal anatomy, however findings appear stable. Other stable incidental findings as above.
--- NOTE | 2024-02-05 13:29 | ER ---
Nurse's Notes [facility] Name: Elsy Bradford Age: 49 yrs Sex: Female : 1975 Arrival Date: 02/05/2024 Time: 09:53 Bed 16 Private MD: Diagnosis: Gastroparesis;Upper abdominal pain, unspecified;Nausea with vomiting, unspecified Presentation: 02/04 09:56 Chief complaint: Patient states: N/V and abd pain that began at 0100 this morning. Pt ss reports she was admitted to the hospital and discharged on for hyperkalemia. HX of Stage IV CKD. Coronavirus screen: Client denies travel out of the [place] in the last 14 days. Ebola Screen: Patient denies exposure to infectious person. Patient denies travel to an Ebola-affected area in the 21 days before illness onset. Initial Sepsis Screen: Does the patient meet any 2 criteria? No. Patient's initial sepsis screen is negative. Does the patient have a suspected source of infection? No. Patient's initial sepsis screen is negative. Risk Assessment: Do you want to hurt yourself or someone else? Patient reports no desire to harm self or others. Onset of symptoms was February 05, 2024. 09:56 Method Of Arrival: EMS: [facility] 09:56 Acuity: ALIN 3 09:58 Care prior to arrival: Medication(s) given: Normal saline infusion, 600 mL zofran 4 mg, ss Fentanyl 50 mcg IV initiated. 20 GA, in the left wrist, Glucose check: 409. Historical: - Allergies: :58 HYDROCODONE; ss - PMHx: 09:58 Diabetes - NIDDM; GERD; High Cholesterol; Hypertension; Thyroid problem; ss - PSHx: 09:58 Cholecystectomy (February); ss - Immunization history:: Adult Immunizations up to date. - Infectious Disease History:: Denies. - Social history:: Smoking status: Patient denies any tobacco usage or history of. Screenin:31 [facility] ED Fall Risk Assessment (Adult) History of falling in the last 3 months, hb including since admission No falls in past 3 months (0 pts) Confusion or Disorientation No (0 pts) Intoxicated or Sedated No (0 pts) Impaired Gait No (0 pts) Mobility Assist Device Used No (0 pt) Altered Elimination No (0 pt) Score/Fall Risk Level 0 - 2 = Low Risk Oriented to surroundings, Maintained a safe environment, Educated pt \T\ family on fall prevention, incl call for assistance when getting out of bed. Abuse screen: Denies threats or abuse. Denies injuries from another. Nutritional screening: No deficits noted. Tuberculosis screening: No symptoms or risk factors identified. Assessment: 10:30 General: Appears in no apparent distress. Behavior is calm, cooperative. Pain: Pain hb currently is 3 out of 10 on a pain scale. at worst was 8 out of 10 on a pain scale. Neuro: Level of Consciousness is awake, alert, obeys commands, Oriented to person, place, time, situation. Cardiovascular: Patient's skin is warm and dry. Respiratory: Respiratory effort is even, unlabored, Respiratory pattern is regular, symmetrical. GI: Reports lower abdominal pain, upper abdominal pain, nausea. : No signs and/or symptoms were reported regarding the genitourinary system. EENT: No signs and/or symptoms were reported regarding the EENT system. Derm: Skin is pink, warm \T\ dry. Musculoskeletal: No signs and/or symptoms reported regarding the musculoskeletal system. 11:35 Reassessment: Patient states symptoms have not improved. General: Behavior is yelling tm6 out due to pain. GI: Abdomen is flat, non-distended. 14:03 Reassessment: Patient and/or family updated on plan of care and expected duration. Pain tm6 level reassessed. Patient is alert, oriented x 3, equal unlabored respirations, skin warm/dry/pink. Vital Signs: 09:56 BP 164 / 95; Pulse 79; Resp 18; Temp 97.7; Pulse Ox 100% on R/A; Weight 67.13 kg; ss Height 4 ft. 11 in. ; Pain 7/10; 11:34 Pulse 104; Pulse Ox 100% on R/A; Pain 10/10; tm6 11:36 BP 197 / 113; MAP 137 mmHg; tm6 13:28 BP 154 / 86; Pulse 82; sb4 14:02 BP 169 / 88; Pulse 77; Resp 18; Temp 97.7; Pulse Ox 100% on R/A; MAP 111 mmHg; Pain tm6 0/10; 09:56 Body Mass Index 29.89 (67.13 kg, 149.86 cm) ss 09:56 Pain Scale: Adult ss 11:34 Pain Scale: Adult tm6 14:02 Pain Scale: Adult tm6 ED Course: 09:56 Patient arrived in ED. ss 09:57 Gail Fischer PA-C [facility]. sb4 09:57 Thompson Castro MD is Attending Physician. sb4 09:58 Triage completed. ss 09:58 Arm band placed on right wrist. ss 10:25 Patient has correct armband on for positive identification. Provided Education on: use hb of call light, tests, result times . 10:26 Maintain EMS IV. Dressing intact. Good blood return noted. Site clean \T\ dry. Gauge \T\ hb site: 20g L Wrist. Flushed with 10 mL NS. 10:[address] via wheelchair. hb 10:29 CBC with Diff Sent. hb 10:29 CMP Sent. hb 10:29 Lipase Sent. hb 10:29 Urinalysis w/ reflexes Sent. hb 10:37 CT Abd/Pelvis - Without Contrast In Process Unspecified. EDMS 11:19 Júnior Andres, KARELY is Primary Nurse. tm6 13:28 Matthew Red MD is Referral Physician. sb4 14:07 No provider procedures requiring assistance completed. IV discontinued, intact, tm6 bleeding controlled, No redness/swelling at site. Pressure dressing applied. Administered Medications: 11:02 Drug: fentaNYL (PF) IVP 50 mcg IVP once Route: IVP; Site: left wrist; hb 11:34 Follow up: Response: No adverse reaction; Pain is unchanged, physician notified tm6 11:34 Drug: Droperidol IVP 1.25 mg IVP once Route: IVP; Site: left hand; tm6 13:54 Follow up: Response: No adverse reaction; Pain is decreased tm6 Medication: 10:31 VIS not applicable for this client. hb Outcome: 13:29 Discharge ordered by . sb4 14:07 Discharged to home ambulatory, with family, tm6 14:07 Condition: stable 14:07 Discharge instructions given to patient, family, Instructed on discharge instructions, follow up and referral plans. Demonstrated understanding of instructions, follow-up care, 14:07 Patient left the ED. tm6 Signatures: Dispatcher [employer] EDWV Jannie Hercules RN RN Roberta Kam RN RN hb Gail Fischer, VELASQUEZ PAEliasC sb4 Júnior Andres, RN RN tm6
--- NOTE | 2024-02-05 13:29 | EDPHYS ---
Physician Documentation [facility] Name: Elsy Bradford Age: 49 yrs Sex: Female : 1975 Arrival Date: 02/05/2024 Time: 09:53 Bed 16 Private MD: ED Physician Thompson Castro HPI: 02/04 10:20 This 49 yrs old Female presents to ER via EMS with complaints of sb4 Nausea/Vomiting, Abdominal Pain. 10:20 The patient presents to the emergency department with nausea, vomiting, diarrhea, sb4 abdominal pain. Onset: The symptoms/episode began/occurred this morning. Possible causes: unknown. onset of abdominal pain in the middle of the night associated with nausea, vomiting, and diarrhea. was recently admitted to the hospital for hyperkalemia, received several medications to lower it. was discharged on daily lokelma, has been taking as prescribed. denies any chest pain or shortness of breath. Historical: - Allergies: :58 HYDROCODONE; ss - PMHx: :58 Diabetes - NIDDM; GERD; High Cholesterol; Hypertension; Thyroid problem; ss - PSHx: 09:58 Cholecystectomy (February); ss - Immunization history:: Adult Immunizations up to date. - Infectious Disease History:: Denies. - Social history:: Smoking status: Patient denies any tobacco usage or history of. ROS: 10:20 Constitutional: Negative for fever, chills, and weight loss, sb4 10:20 Abdomen/GI: Positive for abdominal pain, nausea, vomiting, and diarrhea, 10:20 All other systems are negative, Exam: 10:20 Head/Face: Normocephalic, atraumatic. Eyes: Extra-ocular motions intact. Periorbital sb4 areas with no swelling, redness, or edema. ENT: Mucous membranes moist. Cardiovascular: Regular rate and rhythm with a normal S1 and S2. Respiratory: No increased work of breathing, no retractions or nasal flaring. Abdomen/GI: Soft, non-tender, no distension. Skin: Warm, dry with normal turgor. Normal color with no rashes, no lesions, and no evidence of cellulitis. 10:20 Constitutional: The patient appears alert, awake, pale, Vital Signs: 09:56 BP 164 / 95; Pulse 79; Resp 18; Temp 97.7; Pulse Ox 100% on R/A; Weight 67.13 kg; ss Height 4 ft. 11 in. ; Pain 7/10; 11:34 Pulse 104; Pulse Ox 100% on R/A; Pain 10/10; tm6 11:36 BP 197 / 113; MAP 137 mmHg; tm6 13:28 BP 154 / 86; Pulse 82; sb4 14:02 BP 169 / 88; Pulse 77; Resp 18; Temp 97.7; Pulse Ox 100% on R/A; MAP 111 mmHg; Pain tm6 0/10; 09:56 Body Mass Index 29.89 (67.13 kg, 149.86 cm) ss 09:56 Pain Scale: Adult ss 11:34 Pain Scale: Adult tm6 14:02 Pain Scale: Adult tm6 MDM: 09:57 Medical Screening Exam initiated sb4 13:15 Data reviewed: vital signs, nurses notes, EMS record, lab test result(s), radiologic sb4 studies, and as a result, I will discharge patient. 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 02/04 09:57 Order name: CBC with Diff; Complete Time: 11:29 sb4 02/04 09:57 Order name: CMP; Complete Time: 10:56 sb4 02/04 09:57 Order name: Lipase; Complete Time: 10:56 sb4 02/04 10:44 Order name: Manual Differential; Complete Time: 11:29 EDMS 02/04 09:57 Order name: CT Abd/Pelvis - Without Contrast; Complete Time: 11:31 sb4 02/04 09:57 Order name: IV Saline Lock; Complete Time: 10:29 sb4 02/04 09:57 Order name: Labs collected and sent; Complete Time: 10:29 sb4 Administered Medications: 11:02 Drug: fentaNYL (PF) IVP 50 mcg IVP once Route: IVP; Site: left wrist; hb 11:34 Follow up: Response: No adverse reaction; Pain is unchanged, physician notified tm6 11:34 Drug: Droperidol IVP 1.25 mg IVP once Route: IVP; Site: left hand; tm6 13:54 Follow up: Response: No adverse reaction; Pain is decreased tm6 Disposition: 21:24 Co-signature as Attending Physician, Thompson Castro MD I agree with the assessment and rosalina plan of care. Disposition Summary: 02/05/24 13:29 Discharge Ordered Notes: Location: Home sb4 Problem: new sb4 Symptoms: have improved sb4 Condition: Stable sb4 Diagnosis - Gastroparesis sb4 - Upper abdominal pain, unspecified sb4 - Nausea with vomiting, unspecified sb4 Followup: sb4 - With: Matthew Red MD - When: 2 - 3 days - Reason: Recheck today's complaints, Re-evaluation by your physician Discharge Instructions: - Discharge Summary Sheet sb4 - Abdominal Pain, Adult sb4 - Nausea and Vomiting, Adult sb4 - Gastroparesis sb4 Forms: - Patient Portal Instructions sb4 - Leadership Thank You Letter sb4 Signatures: Dispatcher [employer] Thompson Ordonez MD MD cha Blanchard, Shelby, RN RN Roberta Kam, RN RN Gail Quiroz, PA-C PA-C [address] [place], [place] [address]DmitryJúnior sauceda RN RN tm6 Corrections: (The following items were deleted from the chart) 09:57 09:57 CBC+H.LAB.BRZ ordered. EDMS EDMS 09:57 09:57 COMPREHENSIVE METABOLIC PANEL+C.LAB.BRZ ordered. EDMS EDMS 09:57 09:57 LIPASE+C.LAB.BRZ ordered. EDMS EDMS 09:57 09:57 Urinalysis+U.LAB.BRZ ordered. EDMS EDMS 09:58 09:58 Abdomen Pelvis Wo Con+CT.RAD.BRZ ordered. EDMS EDMS
[2024-02-05 14:11] VITALS: TEMP 97.7; O2SAT 100
[2024-02-05 14:18] VITALS: BP 169/88
== END 2024-02-05 14:07 | disposition home or self-care (01) ==
LOC: ER 09:53
DX: K31.84 Gastroparesis (principal); R10.10 Upper abdominal pain, unspecified
CPT/HCPCS: 85025; 36415; 83690; 80053; 74176; 99285; J3010; J1790

== ENCOUNTER 2024-02-07 06:26 | Inpatient (IN) | payer OTHER ==
--- OUTSIDE RECORDS SUMMARY | 2024-02-07 06:34 | XMS REPORT | Continuity of Care Document ---
Author Name Unknown Address [address] [facility] [address] [place] [address] [facility] Address [address] [facility] [address] [place] [address] Care Team Providers Care Assistant Professor Nurse Education Name Role Phone DAX HAMALLORIEADELASudha Primary Care Physician UnaMATEO Delgado Attending Clinician Unavailable IVIS HOOVER Attending Clinician Unavailable GIDEON RODRIGUEZ Attending Clinician Unavailable ADRIANO AGEE Attending Clinician Unavailable [facility]90 Attending Clinician Unavailable [facility] Attending Clinician UnavailGEREMIAS Wood Attending Clinician UnavailCARISSA Albarran Attending Clinician Unava ilable 1, [facility] Attending Clinic mann Unavailable PRINCE CHEEK Attending Clinician Unavailable DEANNE KAUR Attending Clinician Unavail able NIRALI FLORES Attending Clinician Unavailabl e [id number] Attending Clinician Unavailable KESHAWN SCHNEIDER Attending Clinician Unavailable LAB47 Attending Clinician Unavailable KESHAWN JONES Attending Clinician Unavailable TOMOGRAPHY, [facility] Attending Cl inician Unavailable KEMAR RODRIGUEZ Attending Clinician Unavailab ESTHER Marsh Attending Clinician Unavailable KEATON PATIÑO Attending Clinician Unavailable Keaton Patiño MD Attending Clinician + [phone] MD ELIJAH Attending Clinician Unavailab TANGELA Mendoza Attending Clinician Unavailab le ONLY, [facility] N[facility] Attending Clinician Lila vailable \\R\\RSOH_Magy Attending Clinician Unavailable LIZETH FLORES Attending Clinician Unavailable ERIC DURBIN Attending Clinician Unavailab SEBASTIAN Rose Attending Clinician Unava ilable ANDREI MAR Attending Clinician Unavailable TOMOGRAPHY, [facility] Attending Cl inician Unavailable SHMUEL [...] Unavailab ROSETTA Hernández Attending Clinician Unavailable [place] [facility] [place] Malini Cates Attending Clinician + [phone] Doctor Unassigned, [place] Attending Clinician U navailable UNKNOWN, ATTENDING Attending Clinician Unavailab LEXA Watson Attending Clinician Unavailable Lexa Goff DO Attending Clinician [phone] PATRIA LEVY Attending Clinician Unavailab Santos Colón Attending Clinician Unavailable KEATON PATIÑO Admitting Clinician Unavailable \\R\\RSOH_Magy Admitting Clinician Unavailable LEXA GOFF Admitting Clinician Unavailable Santos MOISE Admitting Clinician Unavailable Payers Payer Name Policy Type Policy Number Effective Date Expirati on Date Source AET[employer] MP [facility] 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 9 [id number] 2023 00:00:00 [employer] 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 [id number] 2023 00:00:00 MELISSA GRANT IPA - AETNA (HMO) [id number] 2022 00:00:00 Problems Condition Name Condition Details [...] l Grief reaction Grief reaction Disease Active - 00:00: 00 Melissa Seybold - Externa l [...] hands Disease Active 2022-02 00:00: 00 Melissa Quigleyybold - Externa l Left elbow pain Left elbow pain Disease Active 2022-02 00:00: 00 Melissa Seybold [...] 2 diabetes mellitus (multi HCC) Disease Active 06-24 00:00: 00 Melissa Seybold - Externa l [...] HCC) Disease Active 05-12 00:00: 00 Melissa Barronold - Externa l Retinopath y of both [...] extremity Disease Active 04-03 00:00: 00 Melissa Quigleyybold - Externa l History of foot fracture History of foot fracture Disease Active 04-03 00:00: 00 Melissa Seybold - Externa l DM type 2 with diabetic mixed hyperlipid emia (multi HCC) DM type 2 with diabetic mixed hyperlipid emia (multi HCC) Disease Active 2-24 00:00: 00 Melissa Grant - Externa l BMI 27.0-27.9, adult BMI 27.0-27.9, adult Disease Active 08-20 00:00: 00 [facility] Screening examinatio n for STD (sexually transmitte d disease) Screening examinatio n for STD (sexually transmitte d disease) Disease Active 08-20 00:00: 00 [facility] Elevated blood pressure reading without diagnosis of hypertensi on Elevated blood pressure reading without diagnosis of hypertensi on Disease Active 08-20 00:00: 00 [facility] BMI 27.0-27.9, adult BMI 27.0-27.9, adult Disease Active 08-20 00:00: 00 [facility] Pain pelvic Pain pelvic Disease Active 08-20 00:00: 00 [facility] Allergies, Adverse Reactions, Alerts Allergy Name Allergy Type Status Severity Reaction(s) Onset Date Inactive Date Treating Clinician Comments Source Hydrocod one Propensi ty to adverse reaction s Active 3- 00:00: 00 Other reaction( s): Nausea/Vo mitingOth er reaction( s): Not available Melissa Uribea l Hydrocod one Allergy to substanc e Active Panoram ic - unspeci fied NO KNOWN ALLERGIE S Drug Class Active [facility] Social History Social Habit Start Date Stop Date Quantity Comments Source ASSERTION Not Melissa Grant - External History of Occupation Melissa Grant - External Gender identity [facility]isha Grant - [facility] Alcoh[facility] intake 2024-01-05 00:00:00 2024-01-05 00:00:00 [...] of Social function 2021-09-30 00:00:00 2021-09-30 00:00:00 [facility] Exposure to SARS-CoV-2 (event) 2021-09-19 00:00:00 2021-09-29 13:11:00 Not sure [facility] History SDOH Alcohol Frequency 2019-08-21 00:00:00 2019-08-21 00:00:00 2 [facility] History SDOH Alcohol Std Drinks 2019-08-21 00:00:00 2019-08-21 00:00:00 1 [facility] History SDOH Alcohol Binge 2019-08-21 00:00:00 2019-08-21 00:00:00 1 [facility] Alcohol Comment 2019-08-21 00:00:00 2019-08-21 00:00:00 social [facility] Sex assigned at 1975 00:00:00 1975 00:00:00 Melissa Grant - Tram Smoking Status Start Date Stop Date Source Current Some Day Smoker Panoramic - unspecif ied Ex-smoker 2023-05-27 00:00:00 2023-05-27 00:00:00 Melissa Grant - External Smokes tobacco daily 2022-04-03 00:00:00 Melissa Griffin External Never smoked tobacco [facility] Medications Ordered Medication Name Filled Medication [...] Solution Pen-injecto r 2023-02 00:00: 00 Yes [id number] 9109 10U QD Inject 10 units into the skin daily. Melissa cates Pantoprazol e Sodium 40 MG oral Tablet Delayed Response 2023-02 00:00: 00 Yes [id number] 40mg QD Take 1 tablet (40 mg [...] 2023-02 00:00: 00 01-04 00:00 :00 No [id number] 15U QD Inject 15 units into the skin daily (with breakfast) . Melissa cates Insulin Pen Needle (Pen Roscoe) 33G X 4 MM does not apply Misc 2023-02 0 00:00: 00 Yes [id number] 1{each} QD Inject 1 each into the skin daily To use with insulin pen. Melissa cates Insulin Glargine (Basaglar KwikPen) 100 UNIT/ML subcutaneou s Solution Pen-injecto r 2023-0230 00:00: 00 Yes [id number] 10U QD Inject 10 units into the skin daily (with breakfast) . Melissa cates Continuous Glucose Sensor (Dexcom G6 Sensor) does not apply Misc 2023-02 00:00: 00 Yes [id number] 9109 Check glucose continuous ly. Melissa cates Atorvastati n Calcium (Lipitor) 10 MG oral Tablet 2023-02 0 00:00: 00 Yes [id number] 3 10mg QD Take 1 tablet (10 mg total) by mouth nightly. Melissa caets Continuous Glucose Transmitter (Dexcom G6 Transmitter ) does not apply Misc 2023-02 0 00:00: 00 Yes [id number] 9109 Check glucose continuous ly. Melissa cates Continuous Glucose Mathematical Scientist (Dexcom G6 Mathematical Scientist) does not apply Device 2023-02 00:00: 00 Yes [id number] 9109 Check glucose continuous ly. Melissa cates Sucralfate (Carafate) 1 g oral Tablet 2023-02 00:00: 00 01-04 00:00 :00 No [id number] 1g Q.25D Take 1 tablet (1 g total) by mouth 4 times daily. Melissa cates Pantoprazol e Sodium 40 MG oral Tablet Delayed Response 2023-02 00:00: 00 01-04 00:00 :00 No [id number] 40mg QD Take 1 tablet (40 mg total) by mouth daily. Melissa cates Sitagliptin Phosphate (Januvia) 25 MG oral Tablet 2023-02 00:00: 00 Yes [id number] 3 25mg QD Take 1 tablet (25 mg total) by mouth daily. Melissa cates Levothyroxi ne Sodium 75 MCG oral Tablet 2023-02 00:00: 00 Yes [id number] 75ug QD take 1 tablet by mouth [...] Solution Pen-injecto r 10-26 00:00: 00 Yes [id number] .75mg Q1W Inject 0.75 mg into the skin once a week. Melissa Grant - Externa l Latanoprost 0.005 % ophthalmic Solution 10-25 00:00: 00 Yes [id number] 1[drp] QD Place 1 drop into both eyes nightly. Melissa Rudy Griffin Externa l Aspirin 81 MG oral Tablet Delayed Response 10-14 08:14: 31 Yes 81mg QD Take 1 tablet (81 mg total) by mouth daily. Melissa Grant - Externa l Aspirin 81 [...] total) by mouth daily. Melissa Uribea l Trulicity 0.75 MG/0.5ML subcutaneou s Solution Pen-injecto r 09-30 00:00: 00 Yes [id number] .75mg Q1W Inject 0.75 mg into the skin once a week. Melissa Uribea l Gabapentin 100 MG oral Capsule 09-30 00:00: 00 Yes [id number] 100mg Q.5D Take 1 capsule (100 mg total) by mouth 2 times daily as needed (pain). Indication s: Disease of the Peripheral Nerves Melissa Uribea l Olmesartan Medoxomil 5 MG oral Tablet 09-30 00:00: 00 Yes [id number] 1{tbl} QD Take 1 tablet by mouth daily. Melissa Grant - Externa l Bilateral: Bevacizumab (AVASTIN) [100 mg/4 mL], 2.5mg - Physician Administere d ([id number]) 09-26 10:12: 18 No [id number] 101 2.5mg 2.5 mg, Physician Administer ed, ONCE, 1 dose, On Wed09/27/23 at 1015 Melissa cates Sodium Bicarbonate 650 MG oral Tablet 8-13 00:00: 00 Yes [id number] 650mg Q.[id number] 3D Take 1 tablet (650 mg total) [...] 09-13 00:00: 00 12-07 00:00 :00 No [id number] 10mg Take 1 tablet (10 mg total) [...] 08-09 00:00: 00 12-07 00:00 :00 No [id number] 20mg QD Take 1 capsule (20 mg total) by mouth daily. Melissa cates Sitagliptin Phosphate (Januvia) 25 MG oral Tablet 08-09 00:00: 09-30 00:00 :00 No [id number] 25mg QD Take 1 tablet (25 mg [...] 07-27 20:30: 00 07-27 20:20 :00 No [id number] 101 2.5mg 2.5 mg, Physician Administer ed, ONCE, 1 dose, On Wed07/28/23 at 1530 Melissa cates Carvedilol (Coreg) 6.25 MG oral Tablet 07-27 14:41: 18 Yes 6.25mg Take 1 tablet (6.25 mg total) by mouth in the morning and 1 tablet (6.25 mg total) in the evening. Take with meals. Melissa cates Levothyroxi ne Sodium 75 MCG oral Tablet 05-27 00:00: 00 Yes [id number] 75ug QD Take 1 tablet (75 mcg total) by mouth daily. Melissa cates Ergocalcife rol 1.25 MG (63555 UT) oral Capsule 05-26 00:00: 00 04-28 04:59 :00 No [id number] 58979H Q1W Take 1 capsule (50,000 units total) [...] 04-12 00:00: 00 10-25 00:00 :00 No [id number] 1[drp] QD Place 1 drop into both [...] Tablet 00:00: 00 08-09 00:00 :00 No [id number] 25mg QD Take 1 tablet (25 mg total) by mouth daily. Melissa cates Metoclopram torrey HCl (Reglan) 5 MG oral Tablet 00:00: 00 05-26 00:00 :00 No [id number] 5mg Q.5D Take 1 tablet (5 mg total) by mouth 2 times daily as needed (nausea). Melissa cates Dicyclomine HCl 20 MG oral Tablet 00:00: 00 05-26 00:00 :00 No [id number] 10mg QD Take 0.5 tablets (10 mg [...] On Wed02/24/23 at 0045, FRANK [facility] morpHINE (4 mg/mL) injection 4 mg 02-24 06:45: 00 02-24 06:45 :00 No 4mg 4 mg, Slow IV Push, ONCE, 1 dose, On Wed02/24/23 at 0045, STAT [facility] ondansetron (ZOFRAN (PF)) injection 4 mg 02-24 06:00: 00 02-24 05:53 :00 No 4mg 4 mg, Slow IV Push, ONCE, 1 dose, On Wed02/24/23 at 0000, FRANK [facility] NaCl 0.9% (NS) IV infusion 1,000 mL 02-24 05:15: 00 Yes 1000mL at 999 mL/hr, Intravenou s, CONTINUOUS , Starting on Wed02/23/23 at 2315, Until Discontinu ed, Routine [facility] ketorolac (TORADOL) injection 30 mg 02-24 05:15: 00 02-24 04:27 :00 No 30mg 30 mg, Slow IV Push, ONCE, 1 dose, On Wed02/23/23 at 2315, Routine [facility] ondansetron (ZOFRAN (PF)) injection 4 mg 02-24 04:15: 00 02-24 04:14 :00 No 4mg 4 mg, Slow IV Push, ONCE, 1 dose, On Wed02/23/23 at 2215, FRANK [facility] maalox:diph enhydrAMINE :lidocaine 2 % viscous 1:1:1 ([facility]) oral suspension 15 mL 02-24 04:15: 00 02-24 04:13 :00 No 15mL 15 mL, Oral, ONCE, 1 dose, On Wed02/23/23 at 2215, Routine [facility] dicyclomine 20 mg tablet 02-24 00:00: 00 02-24 00:00 :00 No [id number] 20mg Take 1 tablet by mouth every 6 (six) hours as needed for Abdominal pain. [facility] traMADoL (ULTRAM) 50 mg tablet 02-24 00:00: 00 02-24 00:00 :00 No [id number] 50mg Take 1 tablet by mouth every 6 (six) hours as needed for Pain (scale 7-10). Indication s: acute pain [facility] proMETHazin e 25 mg tablet 02-24 00:00: 00 02-24 00:00 :00 No [id number] 25mg Take 1 tablet by mouth every 6 (six) hours as needed for Nausea and Vomiting (N/V). [facility] Ibuprofen (MOTRIN) 400 MG oral Tablet 02-16 00:00: 00 00:00 :00 No [id number] 400mg Q.25D Take 1 tablet (400 mg total) by mouth every 6 hours as needed. Melissa cates HYDROcodone -Acetaminop hen ([place]) 5-325 MG oral Tablet 02-16 00:00: 00 00:00 :00 No [id number] 1{tbl} Q.25D Take 1 tablet by mouth every 6 hours as needed for pain. Melissa cates Benzonatate (Tessalon Perles) 100 MG oral Capsule 2022-02 00:00: 00 02-16 00:00 :00 No [id number] 100mg Q.[id number] 3D Take 1 capsule (100 mg total) by mouth 3 times daily as needed for cough. Melissa cates Azithromyci n 250 MG oral Tablet 2022-02 00:00: 00 01-04 05:59 :00 No [id number] Take 2 tablets by mouth on day 1 then 1 tablet by mouth daily for 4 days thereafter .. Melissa cates Olmesartan Medoxomil 5 MG oral Tablet 2022-02 00:00: 00 09-30 00:00 :00 No 1{tbl} QD Take 1 tablet by mouth daily. Melissa cates Ferrous Sulfate (Iron) 325 (65 Fe) MG oral Tablet 2022-02 00:00: 00 05-26 00:00 :00 No [id number] 325mg Take 1 tablet (325 mg total) by mouth daily (with breakfast) . Melissa cates Atorvastati n Calcium (Lipitor) 10 MG oral Tablet 2022-02 00:00: 00 12-07 00:00 :00 No [id number] 3 10mg QD Take 1 tablet (10 mg total) by mouth nightly. Melissa cates Duloxetine HCl [address] Particles 2022-02 00:00: 00 02-16 00:00 :00 No [id number] 20mg Take 1 capsule (20 mg total) by mouth daily. Melissa cates glipiZIDE 10 MG oral Tablet 2022-02 00:00: 00 Yes [id number] 10mg Take 1 tablet (10 mg total) by mouth in the morning and 1 tablet (10 mg total) in the evening. Take before meals. Melissa cates Esomeprazol e Magnesium (NexIUM) 40 MG oral Delayed Release Capsule 2022-02 00:00: 00 00:00 :00 No [id number] 40mg Take 1 capsule (40 mg total) by mouth every morning (before breakfast) . Melissa cates Carvedilol (Coreg) 6.25 MG oral Tablet 2022-02 00:00: 00 02-16 00:00 :00 No [id number] 6.25mg Take 1 tablet (6.25 mg total) by mouth in the morning and 1 tablet (6.25 mg total) in the evening. Take with meals. Melissa cates Gabapentin 100 MG oral Capsule 2022-02 0- 00:00: 00 11-11 00:00 :00 No [id number] 100mg Take 1 capsule (100 mg total) by mouth nightly. Melissa cates Duloxetine HCl [address] Particles 2022-02 0- 00:00: 00 11-11 00:00 :00 No [id number] 20mg Take 1 capsule (20 mg total) by mouth daily. Melissa cates Gabapentin 100 MG oral Capsule 2023-0 9-25 00:00: 00 Yes [id number] 100mg Q.5D Take 1 capsule (100 mg total) by mouth 2 times daily as needed (pain). Melissa cates Bevacizumab (AVASTIN) 100 mg/4 mL - Physician Kaushal bedolla ([id number]) 10-30 19:30: 00 10-30 19:19 :00 No [id number] 101 1.25mg Melissa cates Latanoprost 0.005 % ophthalmic Solution 10-13 00:00: 00 04-12 00:00 :00 No [id number] 1[drp] Place 1 drop into both eyes nightly. Melissa cates Atorvastati n Calcium (Lipitor) 10 MG oral Tablet 09-28 00:00: 00 Yes [id number] 3 10mg Take 1 tablet (10 mg total) by mouth nightly. Melissa cates Latanoprost 0.005 % ophthalmic Solution 09-28 00:00: 00 10-13 00:00 :00 No [id number] 1[drp] Place 1 drop into both eyes [...] MCG oral Tablet 09-02 00:00: 00 Yes [id number] 75ug Take 1 tablet (75 mcg total) by mouth daily Melissa cates Sitagliptin Phosphate (Januvia) 50 MG oral Tablet 09-02 00:00: 00 00:00 :00 No [id number] 50mg Take 1 tablet (50 mg total) by mouth daily Melissa cates Lansoprazol e 30 MG oral Delayed Release Capsule 09-02 00:00: 00 11-11 00:00 :00 No [id number] 30mg Take 1 capsule (30 mg total) by mouth daily Melissa cates Sitagliptin Phosphate (Januvia) 50 MG oral Tablet 08-27 00:00: 00 Yes [id number] 50mg Take 1 tablet (50 mg total) by mouth daily Melissa cates Lansoprazol e 30 MG oral Delayed Release Capsule 08-27 00:00: 00 Yes [id number] 30mg Take 1 capsule (30 mg total) by mouth daily Melissa cates Latanoprost 0.005 % ophthalmic Solution 07-28 00:00: 00 Yes [id number] 1[drp] Place 1 drop into both eyes nightly Melissa cates glipiZIDE 10 MG oral Tablet 07-28 00:00: 00 Yes [id number] 10mg Take 1 tablet (10 mg total) by mouth in the morning and 1 tablet (10 mg total) in the evening. Take before meals. Melissa cates Sitagliptin Phosphate (Januvia) 50 MG oral Tablet 07-28 00:00: 00 08-27 00:00 :00 No [id number] 50mg Take 1 tablet (50 mg total) by mouth daily Melissa cates Lansoprazol e 30 MG oral Delayed Release Capsule 07-28 00:00: 00 08-27 00:00 :00 No [id number] 30mg Take 1 capsule (30 mg total) by mouth daily Melissa cates Atorvastati n Calcium (Lipitor) 10 MG oral Tablet 07-10 00:00: 00 Yes [id number] 3 10mg Take 1 tablet (10 mg total) by mouth nightly Melissa cates Bilateral: Bevacizumab (AVASTIN) [100 mg/4 mL], 2.5mg - Physician Administere d ([id number]) 06-29 19:30: 00 06-29 19:28 :00 No [id number] 101 2.5mg Melissa cates Pantoprazol e Sodium [...] % ophthalmic Solution 06-24 00:00: 00 Yes [id number] 1[drp] Place 1 drop into both eyes nightly Melissa cates Pantoprazol e Sodium 40 MG oral Tablet Delayed Response 06-24 00:00: 00 Yes [id number] 40mg Take 1 tablet (40 mg total) by mouth daily Melissa cates Levothyroxi ne Sodium 75 MCG oral Tablet 06-24 00:00: 00 Yes [id number] 75ug Take 1 tablet (75 mcg total) by mouth daily Melissa cates Iron Sucrose (VENOFER) 300 mg in sodium chloride 0.9 % 250 mL infusion 06-22 17:15: 00 06-22 18:20 :00 No [id number] 300mg 300 mg, at 166.7 mL/hr, Administer [...] 06-19 00:00: 00 11-05 00:00 :00 No [id number] Instructio ns provided to patient. Follow instructio ns provided by provider. Melissa cates Latanoprost 0.005 % ophthalmic Solution 06-17 00:00: 00 Yes [id number] 1[drp] Place 1 drop into both eyes nightly Melissa cates Iron Sucrose (VENOFER) 300 mg in sodium chloride 0.9 % 250 mL infusion 06-09 17:15: 00 06-09 18:50 :00 No [id number] 300mg 300 mg, at 166.7 mL/hr, Administer [...] 05-26 16:45: 00 05-26 18:06 :00 No [id number] 300mg 300 mg, at 166.7 mL/hr, Administer [...] % ophthalmic Solution 05-12 00:00: 00 Yes [id number] 1[drp] Place 1 drop into both eyes nightly Melissa cates Multiple Vitamins-Ir on (MULTIVITAM IN PLUS IRON ADULT OR) 05-11 14:21: 53 Yes 1{tbl} Take 1 tablet by mouth daily Melissa cates Januvia 50 MG oral Tablet 05-10 00:00: 00 Yes [id number] TAKE 1 TABLET BY MOUTH EVERY DAY Melissa cates Multiple Vitamins-Ir on (MULTIVITAM IN PLUS IRON ADULT OR) 05-08 10:04: 06 Yes 1{tbl} Take 1 tablet by mouth daily Melissa cates Sitagliptin Phosphate 50 MG oral Tablet 05-08 00:00: 00 Yes [id number] 50mg Take 1 tablet (50 mg total) by mouth daily Melissa cates glipiZIDE 10 MG oral Tablet 05-08 00:00: 00 Yes [id number] 10mg Take 1 tablet (10 mg total) by mouth in the morning and 1 tablet (10 mg total) in the evening. Take before meals. Melissa cates Rosuvastati n Calcium 40 MG oral Tablet 05-08 00:00: 00 06-24 00:00 :00 No [id number] 3 40mg Take 1 tablet (40 mg total) by mouth at bedtime Melissa cates Levothyroxi ne Sodium 75 MCG oral Tablet 05-05 00:00: 00 Yes [id number] 75ug Take 1 tablet (75 mcg total) [...] MG oral Tablet 05-01 00:00: 00 Yes [id number] 3 10mg Take 1 tablet (10 mg total) by mouth daily (before a meal) Melissa cates Sitagliptin Phosphate 100 MG oral Tablet 05-01 00:00: 00 Yes [id number] 3 100mg Take 1 tablet (100 mg total) by mouth daily Melissa cates Furosemide (LASIX) 20 MG oral Tablet 05-01 00:00: 00 Yes [id number] 40mg Take 2 tablets (40 mg total) by mouth daily Melissa cates Pantoprazol e Sodium 40 MG oral Tablet Delayed Response 04-12 00:00: 00 06-19 00:00 :00 No 40mg Take 1 tablet (40 mg total) by mouth daily Melissa cates Ferrous Sulfate (Iron) 325 (65 Fe) MG oral Tablet 04-09 00:00: 00 Yes [id number] 325mg Take 1 tablet (325 mg total) by mouth 2 times daily Melissa cates Levothyroxi ne Sodium 50 MCG oral Tablet 04-07 00:00: 00 Yes [id number] 50ug Take 1 tablet (50 mcg total) [...] Tablet Delayed Response 04-03 00:00: 00 Yes [id number] 81mg Take 1 tablet (81 mg total) by mouth daily Melissa cates SITagliptin (JANUVIA) 100 mg tablet 09-30 16:27: 53 09-30 00:00 :00 No 100mg Take 100 mg by mouth in the morning. [facility] glipiZIDE XL (GLUCOTROL XL) 10 mg 24 hr tablet 09-30 16:27: 53 09-30 00:00 :00 No 10mg Take 10 mg by mouth in the morning and 10 mg in the evening. [facility] rosuvastati n 20 mg tablet 09-30 16:17: 42 09-30 00:00 :00 No 20mg Take 20 mg by mouth at bedtime. [facility] lisinopriL 5 mg tablet 09-30 16:17: 29 09-30 00:00 :00 No 5mg Take 5 mg by mouth in the morning. [facility] furosemide 20 mg tablet 09-30 15:17: 03 Yes 20mg Take 20 mg by mouth in the morning. [facility] esomeprazol e (NEXIUM) 20 mg capsule 09-30 15:17: 03 Yes 20mg Take 20 mg by mouth daily before a meal. [facility] LO ASPIRIN ORAL 09-30 15:17: 03 Yes Take by mouth. [facility] Lisinopril 5 MG oral Tablet 09-30 00:00: 00 Yes 5mg Take 5 mg by mouth daily Melissa cates Rosuvastati n Calcium 20 MG oral Tablet 09-30 00:00: 00 Yes 40mg Take 40 mg by mouth at bedtime Melissa cates gabapentin 300 mg capsule 09-30 00:00: 00 Yes [id number] 300mg Take 1 capsule by mouth in the morning and 1 capsule at noon and 1 capsule in the evening. [facility] rosuvastati n 20 mg tablet 09-30 00:00: 00 Yes [id number] 20mg Take 1 tablet by mouth at bedtime. [facility] amitriptyli ne 25 mg tablet 09-30 00:00: 00 02-24 00:00 :00 No [id number] 25mg Take 1 tablet by mouth at bedtime. [facility] Sitagliptin Phosphate 100 MG oral Tablet 09-30 00:00: 00 05-01 00:00 :00 No 100mg Take 100 mg by mouth daily Melissa cates glipiZIDE XL (GLUCOTROL XL) 10 mg 24 hr tablet 09-30 00:00: 00 03-30 05:59 :00 No [id number] 10mg Take 1 tablet by mouth in the morning and 1 tablet in the evening. Do all this for 180 days. [facility] furosemide 20 mg tablet 07-24 00:00: 00 No 1mg furosemide 20 mg tablet 07-24 00:00: 00 No 1mg furosemide 20 mg tablet 5 00:00: 00 No 1mg furosemide 20 mg [...] disintegrat ing tablet 3 00:00: 00 Yes [id number] 4mg Take 1 tablet by mouth every 8 (eight) hours as needed for Nausea and Vomiting (N/V). [facility] lisinopril 5 mg tablet 2020-02 2 [...] 05-08 00:00: 00 09-30 00:00 :00 No [id number] 9109 1{tbl} Take 1 tablet by mouth every 12 (twelve) hours. [facility] glipiZIDE 5 mg tablet 05-08 00:00: 00 09-30 00:00 :00 No [id number] 9109 5mg Take 1 tablet by mouth daily. [facility] levothyroxi ne 25 mcg tablet 08-19 [...] mg tablet 07-30 00:00: 00 No 1mg metronidazo le 500 mg tablet TAKE 1 [...] oral route. Panoram ic - unspeci fied aspirin 81 mg tablet,gokul yed release Take [...] Mrna-lnp, Isaiah Protein, 2020-07-29 00:00:00 Completed Melissa Quigleyybold - External [...] (Spikevax), Mrna-lnp, Isaiah Protein, Pf Unknown Completed [facility] - External COVID-19 VACCINE MODERNA 6MONTHS-5YEARS Unknown [facility] Influ[facility] Nasal, Unspecified Formulation Unknown Completed Melissa Seold - External Influenza, Seasonal, Injectable, Preservative Free Unknown Completed [facility] - External Covid-19 Vaccine Moderna (Spikevax), Mrna-lnp, Isaiah Protein, Pf Unknown Completed [facility] - External COVID-19 VACCINE MODERNA 6MONTHS-5YEARS Unknown [facility] Nasal, Unspecified Formulation Unknown [facility] Influenza, Seasonal, Injectable, Preservative Free Unknown Completed [facility] - External Covid-19 Vaccine Moderna (Spikevax), Mrna-lnp, Isaiah Protein, Pf Unknown Completed [facility] - External COVID-19 VACCINE MODERNA 6MONTHS-5YEARS Unknown [facility] Influ[facility] Nasal, Unspecified Formulation Unknown [facility] Influenza, Seasonal, Injectable, Preservative Free Unknown Completed [facility] - External Covid-19 Vaccine Moderna (Spikevax), Mrna-lnp, Isaiah Protein, Pf Unknown Completed [facility] - External COVID-19 VACCINE MODERNA 6MONTHS-5YEARS Unknown Com[facility] Influenza Nasal, Unspecified Formulation Unknown [facility] Influenza, Seasonal, Injectable, Preservative Free Unknown Completed [facility] - External Covid-19 Vaccine Moderna (Spikevax), Mrna-lnp, Isaiah Protein, Pf Unknown Completed [facility] - External COVID-19 VACCINE MODERNA 6MONTHS-5YEARS Unknown [facility] Influenza Nasal, Unspecified Formulation Unknown [facility] Influenza, Seasonal, Injectable, Preservative Free Unknown Completed [facility] - External Covid-19 Vaccine Moderna (Spikevax), Mrna-lnp, Isaiah Protein, Pf Unknown Completed [facility] - External COVID-19 VACCINE MODERNA 6MONTHS-5YEARS Unknown Completed [facility] - External Influenza Nasal, Unspecified Formulation Unknown [facility] Influenza, Seasonal, Injectable, Preservative Free Unknown Completed [facility] - External Covid-19 Vaccine Moderna (Spikevax), Mrna-lnp, Isaiah Protein, Pf Unknown [facility] COVID-19 VACCINE MODERNA 6MONTHS-5YEARS Unknown [facility] Influenza Nasal, Unspecified Formulation Unknown Completed [facility] - External Influenza, Seasonal, Injectable, Preservative Free Unknown Completed [facility] - External Covid-19 Vaccine Moderna (Spikevax), Mrna-lnp, Isaiah Protein, Pf Unknown Completed [facility] - External COVID-19 VACCINE MODERNA 6MONTHS-5YEARS Unknown Com[facility] Influenza Nasal, Unspecified Formulation Unknown [facility] Influenza, Seasonal, Injectable, Preservative Free Unknown Completed [facility] - External Covid-19 Vaccine Moderna (Spikevax), Mrna-lnp, Isaiah Protein, Pf Unknown Completed [facility] - External COVID-19 VACCINE MODERNA 6MONTHS-5YEARS Unknown Completed [facility] - External Influenza Nasal, Unspecified Formulation Unknown Completed [facility] - External Influenza, Seasonal, Injectable, Preservative Free Unknown Completed [facility] - External Covid-19 Vaccine Moderna (Spikevax), Mrna-lnp, Isaiah Protein, Pf Unknown Completed [facility] - External COVID-19 VACCINE MODERNA 6MONTHS-5YEARS Unknown Com[facility] Influenza Nasal, Unspecified Formulation Unknown [facility] Influenza, Seasonal, Injectable, Preservative Free Unknown Completed [facility] - External Covid-19 Vaccine Moderna (Spikevax), Mrna-lnp, Isaiah Protein, Pf Unknown Completed [facility] - External COVID-19 VACCINE MODERNA 6MONTHS-5YEARS Unknown Completed [facility] - External Influenza Nasal, Unspecified Formulation Unknown [facility] Influenza, Seasonal, Injectable, Preservative Free Unknown Completed [facility] - External Covid-19 Vaccine Moderna (Spikevax), Mrna-lnp, Isaiah Protein, Pf Unknown Completed [facility] - External COVID-19 VACCINE MODERNA 6MONTHS-5YEARS [...] (Spikevax), Mrna-lnp, Isaiah Protein, Pf Unknown [facility] COVID-19 VACCINE MODERNA 6MONTHS-5YEARS Unknown [facility] Influenza Nasal, Unspecified Formulation Unknown Completed [facility] - External AFLURIA TRIVALENT PF(0.5mL) Unknown Completed [facility] - External Covid-19 Vaccine Moderna (Spikevax), Mrna-lnp, Isaiah Protein, Pf Unknown [facility] COVID-[facility] VACCINE MODERNA 6MONTHS-5YEARS Unknown [facility] Influenza Nasal, Unspecified Formulation Unknown Completed [facility] - External AFLURIA TRIVALENT PF(0.5mL) Unknown Completed [facility] - External Covid-19 Vaccine Moderna (Spikevax), Mrna-lnp, Isaiah Protein, Pf Unknown Completed [facility] - External COVID-19 VACCINE MODERNA 6MONTHS-5YEARS Unknown Com[facility] Influenza Nasal, Unspecified Formulation Unknown [facility] Influenza, Seasonal, Injectable, Preservative Free Unknown Completed [facility] - External Covid-19 Vaccine Moderna (Spikevax), Mrna-lnp, Isaiah Protein, Pf Unknown Completed [facility] - External COVID-19 VACCINE MODERNA 6MONTHS-5YEARS Unknown Com[facility] Influenza Nasal, Unspecified Formulation Unknown Com[facility] External Influenza, Seasonal, Injectable, Preservative Free Unknown Completed [facility] - External Covid-19 Vaccine Moderna (Spikevax), Mrna-lnp, Isaiah Protein, Pf Unknown Completed [facility] - External COVID-19 VACCINE MODERNA 6MONTHS-5YEARS Unknown [facility] External Influenza Nasal, Unspecified Formulation Unknown [facility] Influenza, Seasonal, Injectable, Preservative Free Unknown Completed [facility] - External Covid-19 Vaccine Moderna (Spikevax), Mrna-lnp, Isaiah Protein, Pf Unknown Completed [facility] - External COVID-19 VACCINE MODERNA 6MONTHS-5YEARS Unknown Completed Melissa Seybol d - External Influenza Nasal, Unspecified Formulation Unknown Completed [facility] - External Influenza, Seasonal, Injectable, Preservative Free Unknown Completed [facility] bold - External Covid-19 Vaccine Moderna (Spikevax), Mrna-lnp, Isaiah Protein, Pf Unknown [facility] COVID-19 VACCINE MODERNA 6MONTHS-5YEARS Unknown Completed [facility] Influenza Nasal, Unspecified Formulation Unknown Completed Melissa [facility] - External Influenza, Seasonal, Injectable, Preservative Free Unknown Completed [facility] bold - External Covid-19 Vaccine Moderna (Spikevax), Mrna-lnp, Isaiah Protein, Pf Unknown [facility] COVID-19 VACCINE MODERNA 6MONTHS-5YEARS Unknown Completed [facility] - External Influenza Nasal, Unspecified Formulation Unknown Completed [facility] - External Influenza, Seasonal, Injectable, Preservative Free Unknown Completed [facility] - External COVID-19 VACCINE MODERNA 6MONTHS-5YEARS Unknown [facility] External Influenza Nasal, Unspecified Formulation Unknown Completed [facility] - External Covid-19 Vaccine Moderna (Spikevax), Mrna-lnp, Isaiah Protein, Pf Unknown [facility] External Influenza, Seasonal, Injectable, Preservative Free Unknown Completed [facility] - External Covid-19 Vaccine Moderna (Spikevax), Mrna-lnp, Isaiah Protein, Pf Unknown Completed [facility] - External COVID-19 VACCINE MODERNA 6MONTHS-5YEARS Unknown Completed [facility] - External Influenza Nasal, Unspecified Formulation Unknown Completed Melissa [facility] - External Influenza, Seasonal, Injectable, Preservative Free Unknown Completed [facility] - External Covid-19 Vaccine Moderna (Spikevax), Mrna-lnp, Isaiah Protein, Pf Unknown Completed [facility] - External COVID-19 VACCINE MODERNA 6MONTHS-5YEARS Unknown Completed Melissa [facility] - External Influenza Nasal, Unspecified Formulation Unknown Completed [facility] - External Influenza, Seasonal, Injectable, Preservative Free Unknown Completed [facility] - External Covid-19 Vaccine Moderna (Spikevax), [...] height 2024-01-05 17:26:00 149.9 cm Trisha martin Seybmayra - External Body weight 2024-01-05 17:26:00 66.679 kg Trisha martin Seybold - External BMI 2024-01-05 17:26:00 29.69 kg/m2 Trisha martin Seybold - External Systolic blood pressure 2023-12-08 19:38:00 143 mm[Hg] [facility] - External Diastolic blood pressure 2023-12-08 19:38:00 85 mm[Hg] [facility] - External Heart rate 2023-12-08 19:38:00 72 /min Kelse y Seybold - External Respiratory rate 2023-12-08 19:38:00 16 /min Melissa Barronold - External Body height 2023-12-08 19:38:00 149.9 cm Trisha ey Seybold - External Body weight 2023-12-08 19:38:00 73.483 kg Trisha ey Seybold - External BMI 2023-12-08 19:38:00 32.72 kg/m2 Trisha ey Seybold - External Oxygen saturation in Arterial blood by Pulse oximetry 2023-12-08 19:38:00 99 /min [facility] - External BMI (Body Mass Index) [...] Heart rate 2023-10-01 14:50:00 78 /min Yulia Grant - External Body temperature 2023-10-01 14:50:00 36.56 Nannette Melissa Quigleyybold - External Respiratory rate 2023-10-01 14:50:00 16 /min Melissa Barronold - External Body height 2023-10-01 14:50:00 149.9 [...] Heart rate 2023-06-01 17:04:00 84 /min Yulia y Seybold - External Body temperature 2023-06-01 17:04:00 [...] Systolic blood pressure 2023-02-24 07:15:00 156 mm[Hg] [facility] Diastolic blood pressure 2023-02-24 07:15:00 88 mm[Hg] [facility] Heart rate 2023-02-24 07:15:00 97 /min [facility] Body temperature 2023-02-24 07:15:00 36.78 Nannette [facility] Respiratory rate 2023-02-24 07:15:00 13 /min [facility] Oxygen saturation in Arterial blood by Pulse oximetry 2023-02-24 07:15:00 96 /min [facility] Body height 2023-02-24 03:40:00 149.9 cm [facility] Body weight 2023-02-24 03:40:00 65.772 kg [facility] BMI 2023-02-24 03:40:00 29.29 kg/m2 [facility] Systolic blood pressure 2023-02-16 19:13:00 130 [...] Pulse oximetry 2022-09-03 20:16:00 98 /min [facility] - External Systolic blood pressure 2022-08-27 [...] - External Body temperature 2022-06-19 19:22:00 36.22 [place] Melissa Seybold - External Respiratory rate 2022-06-19 [...] Systolic blood pressure 2021-09-30 20:09:00 144 mm[Hg] [facility] Diastolic blood pressure 2021-09-30 20:09:00 88 mm[Hg] [facility] Heart rate 2021-09-30 20:08:00 88 /min [facility] Body temperature 2021-09-30 20:08:00 35.94 Nannette [facility] Respiratory rate 2021-09-30 20:08:00 16 /min [facility] Body height 2021-09-30 20:08:00 149.9 cm [facility] Body weight 2021-09-30 20:08:00 64.501 kg [facility] BMI 2021-09-30 20:08:00 28.72 kg/m2 [facility] BP Systolic 2022-02-05 11:42:00 160 mm[Hg] [...] Clinician Source URINALYSIS 2023-02-24 04:28:00 Keaton Patiño [facility] POCT TEST 2023-02-24 04:26:00 Keaton Patiño [facility] LIPASE 2023-02-24 04:10:00 Keaton Patiño [facility] COMP. METABOLIC PANEL (20688) 2023-02-24 04:10:00 Keaton Patiño [facility] CBC WITH DIFF 2023-02-24 04:10:00 Keaton Patiño [facility] CONSENT/REFUSAL FOR DIAGNOSIS AND TREATMENT 2023-02-24 03:30:37 Doctor Unassigned, [place] [facility] ECG- ADULT 2022-11-11 16:50:07 Ardiano Agee - External POCT HEMOGLOBIN A1C TEST 2021-09-30 21:21:00 Andrew Verduzco [facility] Extraction of Gibbon Tooth Panoramic - unspecified Ligation of Fallopian Tube Panoramic - unspecified Plan of Care Planned Activity Planned Date Details Comments Source Goal Plan of Care Note [code = 46464-5] Goal Plan of Care Note [code = 56337-9] Goal Plan of Care Note [code = 49071-1] Goal Plan of Care Note [code = 20689-6] Goal Plan of Care Note [code = 34230-7] Goal Plan of Care Note [code = 76157-1] Goal Plan of Care Note [code = 02255-2] Goal Plan of Care Note [code = 71983-1] Goal Plan of Care Note [code = 71291-7] Goal Plan of Care Note [code = 87746-4] Goal Plan of Care Note [code = 06694-7] Goal Plan of Care Note [code = 49925-6] Goal Plan of Care Note [code = 56398-0] Goal Plan of Care Note [code = 54662-3] Goal Plan of Care Note [code = 75869-6] Goal Plan of Care Note [code = 88107-4] Goal Plan of Care Note [code = 42686-2] Goal Plan of Care Note [code = 04642-6] Goal Plan of Care Note [code = 39832-9] Goal Plan of Care Note [code = 75635-4] Goal Plan of Care Note [code = 31903-0] Goal Plan of Care Note [code = 69936-4] Goal Plan of Care Note [code = 59250-1] Goal Plan of Care Note [code = 61636-9] Goal Plan of Care Note [code = 19239-6] Goal Plan of Care Note [code = 95068-5] Goal Plan of Care Note [code = 40545-8] Goal Plan of Care Note [code = 58123-1] Goal Plan of Care Note [code = 31577-4] Goal Plan of Care Note [code = 62952-5] Goal Plan of Care Note [code = 02356-6] Goal Plan of Care Note [code = 18154-2] Goal Plan of Care Note [code = 01888-3] Goal Plan of Care Note [code = 40598-1] Goal Plan of Care Note [code = 60581-2] Goal Plan of Care Note [code = 54762-7] Goal Plan of Care Note [code = 54217-7] Goal Plan of Care Note [code = 08247-7] Goal Plan of Care Note [code = 92624-7] Goal Plan of Care Note [code = 89665-6] Goal Plan of Care Note [code = 96646-2] Goal Plan of Care Note [code = 06344-7] Goal Plan of Care Note [code = 89706-8] Goal Plan of Care Note [code = 26060-8] Goal Plan of Care Note [code = 01182-8] Goal Plan of Care Note [code = 46554-5] Goal Plan of Care Note [code = 62403-5] Goal Plan of Care Note [code = 62399-1] Goal Plan of Care Note [code = 94776-9] Goal Plan of Care Note [code = 62047-1] Goal Plan of Care Note [code = 88880-0] Goal Plan of Care Note [code = 34505-7] Goal Plan of Care Note [code = 07968-9] Encounters Start Date/Time End Date/Time Encounter Type Admission Type Attending [facility] Facility Care Department Encounter ID Source 2020-12-08 09:56:[address] [facility] [id number] [facility] 2024-04-25 14:20:00 2024-04-25 14:20:00 Outpatient [facility]ON[facility] [id number] [facility] 2024-04-19 10:40:00 2024-04-19 10:40:00 Outpatient IVIS HOOVER [id number] [facility] 2024-02-21 09:30:00 2024-02-21 09:30:00 Outpatient GIDEON RODRIGUEZ [id number] [facility] 2024-02-07 05:48:00 2024-02-07 05:48:00 Emergency X [facility] ERT [id number] [facility] 2024-02-01 11:45:00 2024-02-01 11:45:00 Outpatient ADRIANO AGEE [id number] [facility] 2024-02-01 00:00:00 2024-02-01 00:00:00 Outpatient ADRIANO AGEE [id number] [facility] 2024-01-28 12:00:00 2024-01-28 12:00:00 Outpatient LAB90 MELISSA RAJPUT [id number] [facility] 2024-01-28 11:30:00 2024-01-28 11:30:00 Outpatient CHARLEY, OLIVIA RAJPUT MELISSA [id number] Melissa [facility] 2024-01-26 11:45:00 2024-01-26 11:45:00 Outpatient CHARLEY, OLIVIA RAJPUT MELISSA [id number] [facility] 2024-01-20 12:45:00 2024-01-20 12:45:00 Outpatient MELISSA MELISSA [id number] [facility] 2024-01-19 11:30:00 2024-01-19 11:30:00 Outpatient CHARLEY, OLIVIA RAJPUT MELISSA [id number] [facility] 2024-01-19 00:00:00 2024-01-19 00:00:00 Outpatient CHICOGEREMIAS Lewis MELISSA MELISSA [id number] [facility] 2024-01-19 00:00:00 2024-01-19 00:00:00 Outpatient PREZASADRIANO MELISSA RAJPUT [id number] [facility] 2024-01-18 00:00:00 2024-01-18 00:00:00 Outpatient AMBERJAYMOGEREMIAS Lewis MELISSA RAJPUT [id number] [facility] 2024 00:00:00 2024 00:00:00 Outpatient PREZAS, ADRIANO MELISSA RAJPUT [id number] [facility] 2024-01-12 11:30:00 2024-01-12 11:30:00 Outpatient CHARLEY, OLIVIA RAJPUT MELISSA [id number] [facility] 2024-01-05 13:00:00 2024-01-05 13:00:00 Outpatient LABAnn MELISSA RAJPUT [id number] Melissa [facility] 2024-01-05 11:30:00 2024-01-05 11:30:00 Outpatient PREZAS, ADRIANO MELISSA RAJPUT [id number] [facility] 2023-12-29 08:30:00 2023-12-29 08:30:00 Outpatient CHARLEY, OLIVIA MELISSA RAJPUT [id number] [facility] 2023-12-28 00:00:00 2023-12-28 00:00:00 Outpatient PREZAS, ADRIANO RAJPUT MELISSA [id number] [facility] 2023-12-22 08:30:00 2023-12-22 08:30:00 Outpatient CHARLEY, OLIVIA RAJPUT [id number] [facility] 2023-12-22 00:00:00 2023-12-22 00:00:00 Outpatient PREZAS, ADRIANO RAJPUT MELISSA [id number] [facility] 2023-12-15 08:30:00 2023-12-15 08:30:00 Outpatient CHARLEY, OLIVIA RAJPUT [id number] [facility] 2023-12-15 00:00:00 2023-12-15 00:00:00 Outpatient PREZAS, ADRIANO RAJPUT MELISSA [id number] [facility] 2023-12-14 00:00:00 2023-12-14 00:00:00 Outpatient PREZAS, ADRIANO MELISSA RAJPUT [id number] [facility] 2023-12-09 00:00:00 2023-12-09 00:00:00 Outpatient PREZAS, ADRIANO RAJPUT MELISSA [id number] [facility] 2023-12-08 14:45:00 2023-12-08 14:45:00 Outpatient PREZAS, ADRIANO RAJPUT MELISSA [id number] [facility] 2023-12-08 00:00:00 2023-12-08 00:00:00 Outpatient MELISSA RAJPUT [id number] [facility] 2023-11-23 00:00:00 2023-11-23 00:00:00 Outpatient PREZAS, ADRIANO MCWILLIAMSTAPAN RAJPUT [id number] [facility] 2023-11-19 00:00:00 2023-11-19 00:00:00 Outpatient PREZAS, ADRIANO MELISSA RAJPUT [id number] [facility] 2023-11-18 00:00:00 2023-11-18 00:00:00 Outpatient PREZAS, ADRIANO MELISSA RAJPUT [id number] [facility] 2023-11-17 10:00:00 2023-11-17 10:00:00 Outpatient PREZAS, ADRIANO MELISSA RAJPUT [id number] [facility] 2023-11-16 00:00:00 2023-11-16 00:00:00 Outpatient ADRIANO AGEESEY [id number] [facility] 2023-11-16 00:00:00 2023-11-16 00:00:00 Outpatient CARISSA DELEON MELISSA [id number] [facility] 2023-11-15 13:00:00 2023-11-15 13:00:00 Outpatient OLIVIA WHITEHEAD MELISSA [id number] [facility] 2023-11-15 09:15:00 2023-11-15 09:15:00 Outpatient CHATO Garcia MELISSA MELISSA [id number] [facility] 2023-11-15 08:50:00 2023-11-15 08:50:00 Outpatient LAIGIDEON LANDRY MELISSA MELISSA [id number] [facility] 2023-11-15 00:00:00 2023-11-15 00:00:00 Outpatient ANALISA CHEEKHISH MELISSA MELISSA [id number] [facility] 2023-11-15 00:00:00 2023-11-15 00:00:00 Outpatient ADRIANO AGEE MELISSA [id number] [facility] 2023-11-08 00:00:00 2023-11-08 00:00:00 Outpatient ADRIANO AGEE MELISSA [id number] [facility] 2023-11-08 00:00:00 2023-11-08 00:00:00 Prince Cheek MD: [id number], [place] [address] , Ph. [facility] [id number] [facility] - unspeci fied 2023-11-05 09:10:00 2023-11-05 09:10:00 Outpatient LAB90 MELISSA RAJPUT [id number] [facility] 2023-11-05 00:00:00 2023-11-05 00:00:00 Outpatient ADRIANO AGEE MELISSA RAJPUT [id number] [facility] 2023-11-04 00:00:00 2023-11-04 00:00:00 Outpatient ADRIANO AGEE MELISSA RAJPUT [id number] [facility] 2023-11-01 09:30:00 2023-11-01 09:30:00 Outpatient DEANNE KAUR MELISSA RAJPUT [id number] [facility] 2023-10-28 00:00:00 2023-10-28 00:00:00 Outpatient NIRALI FLORES MLEISSA RAJPUT [id number] [facility] 2023-10-27 16:00:00 2023-10-27 16:00:00 Outpatient MELISSA RAJPUT [id number] [facility] 2023-10-27 00:00:00 2023-10-27 00:00:00 Outpatient ADRIANO AGEE MELISSA RAJPUT [id number] [facility] 2023-10-26 11:20:00 2023-10-26 11:20:00 Outpatient MATEO ANTHONY [id number] [facility] 2023-10-26 10:15:00 2023-10-26 10:15:00 Outpatient GRX139Montrell RAJPUT [id number] [facility] 2023-10-26 09:00:00 2023-10-26 09:00:00 Outpatient MELISSA RAJPUT [id number] [facility] 2023-10-21 11:20:00 2023-10-21 11:20:00 Outpatient MELISSA RAJPUT [id number] [facility] 2023-10-15 08:00:00 2023-10-15 08:00:00 Outpatient KESHAWN SCHNEIDER [id number] [facility] 2023-10-14 16:20:00 2023-10-14 16:20:00 Outpatient MATEO ANTHONY [id number] [facility] 2023-10-14 14:30:00 2023-10-14 14:30:00 Outpatient MELISSA RAJPUT [id number] [facility] 2023-10-06 09:00:00 2023-10-06 09:00:00 Outpatient UDMATTIETGIDEON LANDRY MELISSA RAJPUT [id number] [facility] 2023-10-06 00:00:00 2023-10-06 00:00:00 Outpatient ADRIANO AGEE MELISSA [id number] [facility] 2023-10-05 07:45:00 2023-10-05 07:45:00 Outpatient MOROETGIDEON LANDRY MELISSA MELISSA [id number] [facility] 2023-10-01 10:50:00 2023-10-01 10:50:00 Outpatient LAB90 MELISSA RAJPUT [id number] [facility] 2023-10-01 10:00:00 2023-10-01 10:00:00 Outpatient ADRIANO AGEE MELISSA RAJPUT [id number] [facility] 2023-09-28 00:00:00 2023-09-28 00:00:00 Outpatient MELISSA RAJPUT [id number] [facility] 2023-09-27 09:40:00 2023-09-27 09:40:00 Outpatient SHAANTGIDEON LANDRY MELISSA RAJPUT [id number] [facility] 2023-09-27 09:40:00 2023-09-27 09:40:00 Outpatient 1, CHATO MELISSA RAJPUT [id number] [facility] 2023-09-27 00:00:00 2023-09-27 00:00:00 Outpatient UDOETGIDEON LANDRY MELISSA RAJPUT [id number] [facility] 2023-09-23 00:00:00 2023-09-23 00:00:00 Outpatient AHJUAN JOSE GODOYAMMED MELISSA RAJPUT [id number] [facility] 2023-09-22 00:00:00 2023-09-22 00:00:00 Outpatient MELISSA RAJPUT [id number] [facility] 2023-09-22 00:00:00 2023-09-22 00:00:00 Outpatient DEANNE KAUR [id number] [facility] 2023-09-21 00:00:00 2023-09-21 00:00:00 Outpatient KAUR, DEANNE MELISSA RAJPUT [id number] [facility] 2023-09-20 10:40:00 2023-09-20 10:40:00 Outpatient LAB90 MELISSA RAJPUT [id number] [facility] 2023-09-14 00:00:00 2023-09-14 00:00:00 Outpatient PREZAS, ADRIANO MELISSA RAJPUT [id number] [facility] 2023-09-13 00:00:00 2023-09-13 00:00:00 Outpatient PREZAS, ADRIANO MELISSA RAJPUT [id number] [facility] 2023-09-10 00:00:00 2023-09-10 00:00:00 Outpatient PREZAS, ADRIANO RAJPUT [id number] [facility] 2023-09-10 00:00:00 2023-09-10 00:00:00 Outpatient PREZAS, ADRIANO RAJPUT [id number] [facility] 2023-08-26 14:15:00 2023-08-26 14:15:00 Outpatient PREZAS, ADRIANO MELISSA RAJPUT [id number] [facility] 2023-08-10 09:45:00 2023-08-10 09:45:00 Outpatient PREZAS, ADRIANOJUSTIN RAJPUT [id number] [facility] 2023-07-28 14:50:00 2023-07-28 14:50:00 Outpatient UDGIDEON MAZARIEGOS [id number] [facility] 2023-07-28 14:45:00 2023-07-28 14:45:00 Outpatient 1, CHATO RAJPUT [id number] [facility] 2023-07-19 13:00:00 2023-07-19 13:00:00 Outpatient UDMATTIETGIDEON LANDRY [id number] [facility] 2023-06-21 11:30:00 2023-06-21 11:30:00 Outpatient PREZAS, ADRIANO RAJPUT [id number] [facility] 2023-06-01 11:45:00 2023-06-01 11:45:00 Outpatient PREZAS, ADRIANO MELISSA RAJPUT [id number] [facility] 2023-05-28 00:00:00 2023-05-28 00:00:00 Outpatient ADRIANO AGEE MELISSA [id number] [facility] 2023-05-27 08:30:00 2023-05-27 08:30:00 Outpatient DEANNE KAUR MELISSA RAJPUT [id number] [facility] 2023-05-24 08:40:00 2023-05-24 08:40:00 Outpatient LAB90 MELISSA RAJPUT [id number] [facility] 2023-05-24 00:00:00 2023-05-24 00:00:00 Outpatient ADRIANO AGEE MELISSA RAJPUT [id number] [facility] 2023-05-21 09:55:00 2023-05-21 09:55:00 Outpatient LAB47 MELISSA RAJPUT [id number] [facility] 2023-05-21 09:20:00 2023-05-21 09:20:00 Outpatient ROBERT, KESHAWN MELISSA RAJPUT [id number] [facility] 2023-05-14 00:00:00 2023-05-14 00:00:00 Outpatient HAMANALISAPRINCEKARI RAJPUT [id number] [facility] 2023-05-12 09:30:00 2023-05-12 09:30:00 Outpatient LAB90 MELISSA RAJPUT [id number] [facility] 2023-05-11 12:20:00 2023-05-11 12:20:00 Outpatient LAB90 MELISSA RAJPUT [id number] [facility] 2023-04-16 10:20:00 2023-04-16 10:20:00 Outpatient ROBERT, KESHAWN MELISSA RAJPUT [id number] [facility] 2023-04-13 09:40:00 2023-04-13 09:40:00 Outpatient TOMOGRAPHY, BAYCP MELISSA RAJPUT [id number] [facility] 2023-04-13 09:40:00 2023-04-13 09:40:00 Outpatient NOCKMATEO [id number] [facility] 2023-04-08 14:00:00 2023-04-08 14:00:00 Outpatient PREZASADRIANO MELISSA RAJPUT [id number] [facility] 2023-04-06 13:20:00 2023-04-06 13:20:00 Outpatient ROBERTKESHAWN Kamara MELISSA RAJPUT [id number] [facility] 2023-04-01 00:00:00 2023-04-01 00:00:00 Outpatient PREZAS, ADRIANO RAJPUT [id number] [facility] 2023-03-17 16:20:00 2023-03-17 16:20:00 Outpatient KHASHAB, PATRICKRAMIREZ RAJPUT [id number] [facility] 2023-03-17 16:00:00 2023-03-17 16:00:00 Outpatient PREZAS, ADRIANO RAJPUT [id number] [facility] 2023-03-17 14:45:00 2023-03-17 14:45:00 Outpatient KEMAR RODRIGUEZ [id number] [facility] 2023-03-16 10:00:00 2023-03-16 10:00:00 Outpatient PURCELLESTHER RAMOS [id number] [facility] 2023-03-15 08:40:00 2023-03-15 08:40:00 Outpatient KIKO, IVIS RAJPUT [id number] [facility] 2023-03-12 13:30:00 2023-03-12 13:30:00 Outpatient PREZAS, ADRIANO RAJPUT [id number] [facility] 2023-03-02 12:20:00 2023-03-02 12:20:00 Outpatient KEMAR RODRIGUEZ [id number] [facility] 2023-03-02 12:00:00 2023-03-02 12:00:00 Outpatient ESTHER PURCELL [id number] [facility] 2023-03-01 00:00:00 2023-03-01 00:00:00 Outpatient PREZAS ADRIANO RAJPUT [id number] [facility] 2023-02-23 21:41:00 2023-02-24 01:28:00 Emergency X KEATON PATIÑO [facility] ERT [id number] [facility] 2023-02-23 21:41:00 2023-02-24 01:28:[address]ño [facility] [id number] [facility] 2023-02-24 00:00:00 2023-02-24 00:00:00 Outpatient IVIS HOOVER [id number] [facility] 2023-02-23 00:00:00 2023-02-23 00:00:00 Outpatient ESTHER PURCELL [id number] [facility] 2023-02-23 00:00:00 2023-02-23 00:00:00 Outpatient ADRIANO AGEE [id number] [facility] 2023-02-23 00:00:00 2023-02-23 00:00:00 Outpatient ADRIANO AGEE [id number] [facility] 2023-02-22 00:00:00 2023-02-22 00:00:00 Outpatient ESTHER PURCELL [id number] [facility] 2023-02-22 00:00:00 2023-02-22 00:00:00 Outpatient MD MELISSA NOBLE [id number] [facility] 2023-02-22 00:00:00 2023-02-22 00:00:00 Outpatient TANGELA HERNANDEZ [id number] [facility] 2023-02-22 00:00:00 2023-02-22 00:00:00 Outpatient NEGAR PACHECO [id number] [facility] 2023-02-18 00:00:00 2023-02-18 00:00:00 Outpatient ADRIANO AGEE [id number] [facility] 2023-02-16 14:05:00 2023-02-16 14:05:00 Outpatient TIFFANIE MELISSA RAJPUT [id number] [facility] 2023-02-16 11:40:00 2023-02-16 11:40:00 Outpatient DAVIDTANGELA MELISSA RAJPUT [id number] [facility] 2023-02-16 11:00:00 2023-02-16 11:00:00 Outpatient ESTHER PURCELL MELISSA RAJPUT [id number] [facility] 2023-02-16 00:00:00 2023-02-16 00:00:00 Outpatient \\R\\RSOH[place] PANRSOH PANRSOH [id number] PANRSOH 2023-02-16 00:00:00 2023-02-16 00:00:00 Outpatient MD MELISSA NOBLE [id number] [facility] 2023-02-15 00:00:00 2023-02-15 00:00:00 Outpatient MD MELISSA NOBLE [id number] [facility] 2023-02-10 15:00:00 2023-02-10 15:00:00 Outpatient DAVID TANGELA MELISSA RAJPUT [id number] [facility] 2023-02-09 00:00:00 2023-02-09 00:00:00 Outpatient MELISSA RAJPUT [id number] [facility] 2023-02-03 14:30:00 2023-02-03 14:30:00 Outpatient LIZETH FLORES [id number] [facility] 2023-02-03 13:45:00 2023-02-03 13:45:00 Outpatient KEMAR RODRIGUEZ [id number] [facility] 2023-01-21 14:45:00 2023-01-21 14:45:00 Outpatient LIZETH FLORES [id number] [facility] 2023-01-21 00:00:00 2023-01-21 00:00:00 Outpatient MELISSA RAJPUT [id number] [facility] 2023-01-21 00:00:00 2023-01-21 00:00:00 Outpatient KEMAR RODRIGUEZ MELISSA RAJPUT [id number] [facility] 2023-01-20 11:45:00 2023-01-20 11:45:00 Outpatient KEMAR RODRIGUEZ MELISSA RAJPUT [id number] [facility] 2023-01-13 08:45:00 2023-01-13 08:45:00 Outpatient CHATO Garcia MELISSA RAJPUT [id number] [facility] 2023-01-13 08:20:00 2023-01-13 08:20:00 Outpatient SINDY GIDEON MELISSA RAJPUT [id number] [facility] 2023-01-08 00:00:00 2023-01-08 00:00:00 Outpatient RODOLFOADRIANAADRIANO Resendez MELISSA RAJPUT [id number] [facility] 2023-01-07 14:05:00 2023-01-07 14:05:00 Outpatient MELISSA RAJPUT [id number] [facility] 2023-01-07 14:00:00 2023-01-07 14:00:00 Outpatient MELISSA RAJPUT [id number] [facility] 2023-01-06 15:10:00 2023-01-06 15:10:00 Outpatient MORMATTIEChitraGIDEON LANDRY MELISSA RAJPUT [id number] [facility] 2022-12-29 15:00:00 2022-12-29 15:00:00 Outpatient ERIC DURBIN [id number] [facility] 2022-12-29 00:00:00 2022-12-29 00:00:00 Outpatient RODOLFOADRIANAADRIANO Resendez MELISSA RAJPUT [id number] [facility] 2022-12-28 00:00:00 2022-12-28 00:00:00 Outpatient MD MELISSA NOBLE [id number] [facility] 2022-12-25 00:00:00 2022-12-25 00:00:00 Outpatient SEBASTIAN CHUNG [id number] [facility] 2022-12-21 00:00:00 2022-12-21 00:00:00 Outpatient HUNDANDREI Cates MELISSA RAJPUT [id number] [facility] 2022-12-21 00:00:00 2022-12-21 00:00:00 Outpatient PREZAS, ADRIANO MELISSA RAJPUT [id number] [facility] 2022-12-14 00:00:00 2022-12-14 00:00:00 Outpatient PREZAS, ADRIANO MELISSA RAJPUT [id number] [facility] 2022-12-11 14:15:00 2022-12-11 14:15:00 Outpatient WEN MELISSA MELISSA [id number] [facility] 2022-12-11 13:45:00 2022-12-11 13:45:00 Outpatient PREZAS, ADRIANO MELISSA RAJPUT [id number] [facility] 2022-12-06 00:00:00 2022-12-06 00:00:00 Outpatient PREZAS, ADRIANO MELISSA RAJPUT [id number] [facility] 2022-11-27 13:30:00 2022-11-27 13:30:00 Outpatient PREZAS, ADRIANO MELISSA RAJPUT [id number] [facility] 2022-11-27 08:30:00 2022-11-27 08:30:00 Outpatient MICHAELKEMAR MELISSA RAJPUT [id number] [facility] 2022-11-23 00:00:00 2022-11-23 00:00:00 Outpatient PREZAS, ADRIANO MELISSA RAJPUT [id number] [facility] 2022-11-18 00:00:00 2022-11-18 00:00:00 Outpatient PREZAS, ADRIANO MELISSA RAJPUT [id number] [facility] 2022-11-16 14:30:00 2022-11-16 14:30:00 Outpatient MELISSA RAJPUT [id number] [facility] 2022-11-16 00:00:00 2022-11-16 00:00:00 Outpatient PREZAS, ADRIANO MELISSA RAJPUT [id number] [facility] 2022-11-16 00:00:00 2022-11-16 00:00:00 Outpatient PREZAS, ADRIANO RAJPUT [id number] [facility] 2022-11-16 00:00:00 2022-11-16 00:00:00 Outpatient PREZAS, ADRIANO RAJPUT MELISSA [id number] [facility] 2022-11-11 11:30:00 2022-11-11 11:30:00 Outpatient PREZAS, ADRIANO MELISSA RAJPUT [id number] [facility] 2022-11-05 15:00:00 2022-11-05 15:00:00 Outpatient PURCELL, ESTHER RAJPUT [id number] [facility] 2022-11-02 00:00:00 2022-11-02 00:00:00 Outpatient PURCELL, ESTHER RAJPUT [id number] [facility] 2022-11-02 00:00:00 2022-11-02 00:00:00 Outpatient PREZAS, ADRIANO MELISSA RAJPUT [id number] [facility] 2022-11-02 00:00:00 2022-11-02 00:00:00 Outpatient PREZAS, ADRIANO MELISSA RAJPUT [id number] [facility] 2022-10-30 13:40:00 2022-10-30 13:40:00 Outpatient IGDEON RODRIGUEZ [id number] [facility] 2022-10-30 13:35:00 2022-10-30 13:35:00 Outpatient TOMOGRAPHY, FBMD MELISSA RAJPUT [id number] [facility] 2022-10-30 10:30:00 2022-10-30 10:30:00 Outpatient KEMAR RODRIGUEZ [id number] [facility] 2022-10-30 00:00:00 2022-10-30 00:00:00 Outpatient PREZAS, ADRIANO RAJPUT [id number] [facility] 2022-10-30 00:00:00 2022-10-30 00:00:00 Outpatient PREZAS, ADRIANO RAJPUT [id number] [facility] 2022-10-30 00:00:00 2022-10-30 00:00:00 Outpatient MELISSA RAJPUT [id number] [facility] 2022-10-29 12:40:00 2022-10-29 12:40:00 Outpatient LAB90 MELISSA RAJPUT [id number] [facility] 2022-10-28 16:20:00 2022-10-28 16:20:00 Outpatient IVIS HOOVER MELISSA RAJPUT [id number] [facility] 2022-10-27 14:45:00 2022-10-27 14:45:00 Outpatient SHMUEL HAGEN MELISSA RAJPUT [id number] [facility] 2022-10-26 16:00:00 2022-10-26 16:00:00 Outpatient IVIS HOOVER MELISSA RAJPUT [id number] [facility] 2022-10-26 14:30:00 2022-10-26 14:30:00 Outpatient NUHA WINSTON [id number] [facility] 2022-10-26 14:15:00 2022-10-26 14:15:00 Outpatient MELISSA RAJPUT [id number] [facility] 2022-10-23 14:30:00 2022-10-23 14:30:00 Outpatient GIDEON RODRIGUEZ [id number] [facility] 2022-10-19 08:50:00 2022-10-19 08:50:00 Outpatient NUHA WINSTON [id number] [facility] 2022-10-16 00:00:00 2022-10-16 00:00:00 Outpatient NUHA WINSTON [id number] [facility] 2022-10-13 15:20:00 2022-10-13 15:20:00 Outpatient MATEO ANTHONY [id number] [facility] 2022-10-13 14:00:00 2022-10-13 14:00:00 Outpatient VF53 MELISSA RAJPUT [id number] [facility] 2022-10-13 10:20:00 2022-10-13 10:20:00 Outpatient LEONID ROSE [id number] [facility] 2022-10-02 00:00:00 2022-10-02 00:00:00 Outpatient MD MELISSA NOBLE [id number] [facility] 2022-10-01 00:00:00 2022-10-01 00:00:00 Outpatient PREADRIANO POWELL MELISSA RAJPUT [id number] [facility] 2022-09-30 00:00:00 2022-09-30 00:00:00 Outpatient PREZASADRIANO MELISSA RAJPUT [id number] [facility] 2022-09-30 00:00:00 2022-09-30 00:00:00 Outpatient HAMPRINCE MELISSA RAJPUT [id number] [facility] 2022-09-28 00:00:00 2022-09-28 00:00:00 Outpatient MAINORNESS GrahamMATEOBRENTON RAJPUT [id number] [facility] 2022-09-28 00:00:00 2022-09-28 00:00:00 Outpatient PREZASADRIANO MELISSA RAJPUT [id number] [facility] 2022-09-19 00:00:00 2022-09-19 00:00:00 Outpatient PREZAS, ADRIANO MELISSA RAJPUT [id number] [facility] 2022-09-15 00:00:00 2022-09-15 00:00:00 Outpatient PREZASADRIANO MELISSA RAJPUT [id number] [facility] 2022-09-14 11:55:00 2022-09-14 11:55:00 Outpatient MICHAELAnn RAJPUT [id number] [facility] 2022-09-14 00:00:00 2022-09-14 00:00:00 Outpatient PRINCE CHEEK MELISSA RAJPUT [id number] [facility] 2022-09-08 00:00:00 2022-09-08 00:00:00 Outpatient KESHAWN JONES [id number] [facility] 2022-09-07 12:00:00 2022-09-07 12:00:00 Outpatient EKSHAWN JONES [id number] [facility] 2022-09-04 00:00:00 2022-09-04 00:00:00 Outpatient PREADRIANO POWELL MELISSA RAJPUT [id number] [facility] 2022-09-04 00:00:00 2022-09-04 00:00:00 Outpatient VANCE AGEEJUSTIN RAJPUT [id number] [facility] 2022-09-03 15:15:00 2022-09-03 15:15:00 Outpatient PURCELLESTHER RAMOS [id number] [facility] 2022-09-02 00:00:00 2022-09-02 00:00:00 Outpatient MD MELISSA NOBLE [id number] [facility] 2022-09-01 00:00:00 2022-09-01 00:00:00 Outpatient MD MELISSA NOBLE [id number] [facility] 2022-09-01 00:00:00 2022-09-01 00:00:00 Outpatient ADRIANO AGEE MELISSA RAJPUT [id number] [facility] 2022-08-31 00:00:00 2022-08-31 00:00:00 Outpatient ESTHER PURCELL [id number] [facility] 2022-08-27 13:30:00 2022-08-27 13:30:00 Outpatient PREVANCE POWELLJUSTIN RAJPUT [id number] [facility] 2022-08-19 11:30:00 2022-08-19 11:30:00 Outpatient GIDEON RODRIGUEZ [id number] [facility] 2022-08-04 13:00:00 2022-08-04 13:00:00 Outpatient GIDEON RODRIGUEZ [id number] [facility] 2022-07-30 00:00:00 2022-07-30 00:00:00 Outpatient HAM PRINCEKARI RAJPUT [id number] [facility] 2022-07-28 00:00:00 2022-07-28 00:00:00 Outpatient MATEO ANTHONY [id number] [facility] 2022-07-28 00:00:00 2022-07-28 00:00:00 Outpatient PREZASADRIANO MELISSA [id number] [facility] 2022-07-28 00:00:00 2022-07-28 00:00:00 Outpatient PREZASADRIANOTAPAN RAJPUT [id number] [facility] 2022-07-19 00:00:00 2022-07-19 00:00:00 Outpatient PREZAS, ADRIANO RAJPUT MELISSA [id number] [facility] 2022-07-15 13:15:00 2022-07-15 13:15:00 Outpatient MELISSA RAJPUT [id number] [facility] 2022-07-13 14:00:00 2022-07-13 14:00:00 Outpatient MATEO ANTHONY MELISSA RAJPUT [id number] [facility] 2022-07-10 00:00:00 2022-07-10 00:00:00 Outpatient PREZAS, ADRIANO MELISSA RAJPUT [id number] [facility] 2022-07-10 00:00:00 2022-07-10 00:00:00 Outpatient PREZAS, ADRIANO MELISSA RAJPUT [id number] [facility] 2022-07-09 13:30:00 2022-07-09 13:30:00 Outpatient LABAnn MELISSA RAJPUT [id number] [facility] 2022-07-07 00:00:00 2022-07-07 00:00:00 Outpatient PREZASADRIANO MELISSA RAJPUT [id number] [facility] 2022-07-03 00:00:00 2022-07-03 00:00:00 Outpatient MD MELISSA NOBLE [id number] [facility] 2022-06-30 14:30:00 2022-06-30 14:30:00 Outpatient PREZASADRIANO MELISSA RAJPUT [id number] [facility] 2022-06-29 14:30:00 2022-06-29 14:30:00 Outpatient GIDEON RODRIGUEZ [id number] [facility] 2022-06-29 13:15:00 2022-06-29 13:15:00 Outpatient 1, OPTICAL MELISSA RAJPUT [id number] [facility] 2022-06-24 11:00:00 2022-06-24 11:00:00 Outpatient PREZAS, ADRIANO MELISSA RAJPUT [id number] [facility] 2022-06-24 00:00:00 2022-06-24 00:00:00 Outpatient PREZAS, ADRIANO MELISSA RAJPUT [id number] [facility] 2022-06-24 00:00:00 2022-06-24 00:00:00 Outpatient NOCKNESSMATEOBRENTON RAJPUT [id number] [facility] 2022-06-22 11:30:00 2022-06-22 11:30:00 Outpatient IVT, GABY RAJPUT [id number] [facility] 2022-06-22 00:00:00 2022-06-22 00:00:00 Outpatient MELISSA RAJPUT [id number] [facility] 2022-06-22 00:00:00 2022-06-22 00:00:00 Outpatient PREZAS, ADRIANO MELISSA RAJPUT [id number] [facility] 2022-06-19 15:40:00 2022-06-19 15:40:00 Outpatient ROBERT KESHAWN MELISSA RAJPUT [id number] [facility] 2022-06-19 14:00:00 2022-06-19 14:00:00 Outpatient PURCELLESTHER RAMOS [id number] [facility] 2022-06-19 00:00:00 2022-06-19 00:00:00 Outpatient MANTRAVACARLTON HERNANDES [id number] [facility] 2022-06-17 00:00:00 2022-06-17 00:00:00 Outpatient NOCSantosNESSMATEO MELISSA RAJPUT [id number] [facility] 2022-06-15 00:00:00 2022-06-15 00:00:00 Outpatient PREZAS, ADRIANO RAJPUT [id number] [facility] 2022-06-15 00:00:00 2022-06-15 00:00:00 Outpatient MARY CARLTON [facility]ISSA RAJPUT [id number] [facility] 14:20:00 2022-06-12 14:20:00 Outpatient KUMARISMA MELISSA RAJPUT [id number] [facility] 2022-06-09 11:30:00 2022-06-09 11:30:00 Outpatient INFUSION, GABY RAJPUT [id number] [facility] 2022-06-02 00:00:00 2022-06-02 00:00:00 Outpatient RUBY, TANISHAING MELISSA RAJPUT [id number] [facility] 2022-06-01 14:00:00 2022-06-01 14:00:00 Outpatient PREZAS, ADRIANO MELISSA RAJPUT [id number] [facility] 2022-06-01 00:00:00 2022-06-01 00:00:00 Outpatient MARY, CARLTONRUBEN RAJPUT [id number] [facility] 2022-05-26 10:00:00 2022-05-26 10:00:00 Outpatient IVT, GABY RAJPUT [id number] [facility] 2022-05-18 00:00:00 2022-05-18 00:00:00 Outpatient DIORZAIN [id number] [facility] 2022-05-13 16:00:00 2022-05-13 16:00:00 Outpatient MELISSA RAJPUT [id number] [facility] 2022-05-12 11:35:00 2022-05-12 11:35:00 Outpatient TOMOGRAPHY, CK MELISSA RAJPUT [id number] [facility] 2022-05-12 11:05:00 2022-05-12 11:05:00 Outpatient TOMOGRAPHY, CK MELISSA RAJPUT [id number] [facility] 2022-05-12 10:40:00 2022-05-12 10:40:00 Outpatient NOCK, MATEO RAJPUT [id number] [facility] 2022-05-11 14:30:00 2022-05-11 14:30:00 Outpatient ALADE, OLADAPO MELISSA RAJPUT [id number] [facility] 2022-05-08 10:00:00 2022-05-08 10:00:00 Outpatient PREADRIANO POWELL MELISSA RAJPUT [id number] [facility] 2022-05-07 16:00:00 2022-05-07 16:00:00 Outpatient MATTHEW ASHFORD MELISSA RAJPUT [id number] [facility] 2022-05-06 00:00:00 2022-05-06 00:00:00 Outpatient MELISSA RAJPUT [id number] [facility] 2022-05-05 07:50:00 2022-05-05 07:50:00 Outpatient MELISSA RAJPUT [id number] [facility] 2022-05-05 07:30:00 2022-05-05 07:30:00 Outpatient MELISSA RAJPUT [id number] [facility] 2022-05-05 00:00:00 2022-05-05 00:00:00 Outpatient PREZAADRIANO Resendez MELISSA RAJPUT [id number] [facility] 2022-05-05 00:00:00 2022-05-05 00:00:00 Outpatient PHOEBE ROWE MELISSA RAJPUT [id number] [facility] 2022-05-05 00:00:00 2022-05-05 00:00:00 Outpatient PREZAADRIANO Resendez MELISSA RAJPUT [id number] [facility] 2022-05-05 00:00:00 2022-05-05 00:00:00 Outpatient MELISSA RAJPUT [id number] [facility] 2022-05-01 14:30:00 2022-05-01 14:30:00 Outpatient LAB90 MELISSA RAJPUT [id number] [facility] 2022-05-01 13:45:00 2022-05-01 13:45:00 Outpatient PREZAADRIANO Resendez MELISSA RAJPUT [id number] [facility] 2022-04-22 16:15:00 2022-04-22 16:15:00 Outpatient MELISSA RAJPUT [id number] [facility] 2022-04-22 10:00:00 2022-04-22 10:00:00 Outpatient KHASHABIVIS MELISSA [id number] [facility] 2022-04-10 16:00:00 2022-04-10 16:00:00 Outpatient MELISSA MELISSA [id number] [facility]-10 00:00:00 2022-04-10 00:00:00 Outpatient PREZAS, ADRIANO MELISSA RAJPUT [id number] [facility] 2022-04-09 00:00:00 2022-04-09 00:00:00 Outpatient PREZAS, ADRIANO RAJPUT MELISSA [id number] [facility] 2022-04-09 00:00:00 2022-04-09 00:00:00 Outpatient PREZAS, ADRIANO MELISSA RAJPUT [id number] [facility] 2022-04-09 00:00:00 2022-04-09 00:00:00 Outpatient PREZAS, ADRIANO MELISSA RAJPUT [id number] [facility] 2022-04-08 14:15:00 2022-04-08 14:15:00 Outpatient LAB90 MELISSA MELISSA [id number] [facility] 2022-04-07 00:00:00 2022-04-07 00:00:00 Outpatient PREZAS, ADRIANO MELISSA RAJPUT [id number] [facility] 2022-04-06 13:40:00 2022-04-06 13:40:00 Outpatient LAB90 MELISSA RAJPUT [id number] [facility] 2022-04-03 15:15:00 2022-04-03 15:15:00 Outpatient PREZAS, ADRIANO MELISSA RAJPUT [id number] [facility] 2022-04-01 10:30:00 2022-04-01 10:30:00 Outpatient ANDREW JAY OGECHUKWU [facility] [id number] [facility] 2022-04-01 10:30:00 2022-04-01 10:30:00 Outpatient ANDREW JAY OGECHUKWU [facility] [id number] [facility] 2022-02-26 14:58:07 2022-02-26 14:58:07 Outpatient SFA [id number] Matthew Brown 2022-02-20 14:15:19 2022-02-20 14:15:19 Outpatient SFA [id number] Matthew Brown 2022-02-11 09:20:44 2022-02-11 09:20:44 Outpatient SFA [id number] Matthew Brown 2022-02-05 11:38:34 2022-02-05 11:38:34 Outpatient SFA [id number] Matthew Brown 2022-02-05 00:00:00 2022-02-05 00:00:00 Outpatient Visit [id number] 4072-10-10 10:42:46 2021-11-17 10:42:46 Outpatient SFA [id number] Matthew Brown 2021-11-13 15:06:22 2021-11-13 15:06:22 Outpatient SFA [id number] Matthew Brown 2021-11-13 00:00:00 2021-11-13 00:00:00 Outpatient Visit [id number] 2021-10-09 00:00:00 2021-10-09 00:00:00 Outpatient ROSETTA FINNEY [facility] [id number] [facility] 2021-10-01 00:00:00 2021-10-01 00:00:00 [facility] Out[facility] 1.2.840.114 350.1.13.10 4.2.7.2.686 [id number] [facility] 2021-10-01 00:00:00 2021-10-01 00:00:00 Telephone Malini Muñoz [facility] 1.2.840.114 350.1.13.10 4.2.7.2.686 [id number] [facility] 2021-09-30 15:00:00 2021-09-30 16:30:37 Outpatient R ANDREW VERDUZCO OGECHUKWU [facility] [id number] [facility] 2021-09-30 15:00:00 2021-09-30 16:30:37 Outpatient R ANDREW VERDUZCO OGECHUKWU [facility] [id number] [facility] 2021-09-30 15:00:00 2021-09-30 16:30:37 Office Visit Andrew Verduzco [facility] 1.2.840.114 350.1.13.10 4.2.7.2.686 [id number] [facility] 2021-09-30 00:00:00 2021-09-30 00:00:00 Orders Only Doctor Unassigned, Benicia [facility] 1.2.840.114 350.1.13.10 4.2.7.2.686 [id number] [facility] 2021-07-24 00:00:00 2021-07-24 00:00:00 Orders Only Doctor Unassigned, Benicia [facility] 1.2.840.114 350.1.13.10 4.2.7.2.686 [id number] [facility] 2021-04-11 14:20:00 2021-04-11 14:20:00 Outpatient R UNKNOWN, ATTENDING [facility] [id number] [facility] 2021-04-11 14:20:00 2021-04-11 14:20:00 Outpatient R UNKNOWN, ATTENDING [facility] [id number] [facility] 2021-04-07 21:43:00 2021-04-08 01:09:00 Emergency X LEXA GOFF [facility] ERT [id number] [facility] 2021-04-07 21:43:00 2021-04-08 01:09:[address] [facility] 1.2.840.114 350.1.13.10 4.2.7.2.686 [id number] [facility] 2019-08-21 08:00:00 2019-08-21 08:00:00 Outpatient R PATRIA LEVY [facility] [id number] [facility] [facility] 2019-07-24 21:47:47 2019-07-25 02:18:00 Emergency X Santos [facility] ERT [id number] [facility] Results Test Description Test Time Test Comments Results Result Co mments Source [facility]- [id number] 18:40:14* Test Item Value Reference Range Interpretation Comme nts VENTRICULAR RATE (test code = 26397) BPM ATRIAL RATE (test code = 06461) BPM P-R INTERVAL (test code = 22994) 134 ms QRS DURATION (test code = 09386) 80 ms Q-T INTERVAL (test code = 67828) 408 ms QTC CALCULATION(BEZE (test code = 87707) 437 ms CALCULATED P AXIS (test code = 47042) degrees CALCULATED R AXIS (test code = 03758) degrees CALCULATED T AXIS (test code = 10041) degrees DIAGNOSIS (test code = 27517) Normal sinus rhythmPossible Inferior infarct , age undeterminedPoor R-wave progressionBorderline ECGNo previous ECGs availableConfirmed by Radha MCCALL ([id number]) on 11/11/2022 1:40:13 PM Meilssa Grant - ExternalLIPID [id number] 05:52:40* Test Item Value Reference Range Interpretation Comme nts CHOLESTEROL (test code = 2210) 174 MG/DL <200 TRIGLYCERIDES (test code = 2232) 192 MG/DL <150 H HDL CHOLESTEROL (test code = 2220) 45 MG/DL >39 CALC LDL CHOL (test code = 2236) 100 MG/DL <100 H NOTE: CALCULATED LDL IS BASED ON CHATO-[place] METHOD WHICHINCLUDES ADJUSTABLE TRIGLYCERIDE:VLDL CHOLESTEROL RATIO.THIS FACTOR VARIES BY MEASURED TRIGLYCERIDE AND NON-HDLCHOLESTEROL CONCENTRATIONS WITH INCREASED CALCULATED LDL SEENIN HIGHER TRIGLYCERIDE OR LOWER NON-HDL SPECIMENS. FOR MOREINFORMATION, SEE CLIENT ANNOUNCEMENT AT [email or web address] /CalcLDL-C RISK RATIO LDL/HDL (test code = 2237) 2.22 RATIO <3.22 COMPREHENSIVE METABOLIC [id number] 05:52:40* Test Item Value Reference Range Interpretation Comme nts GLUCOSE (test code = 2216) 166 MG/DL 70-99 H BUN (test code = 2207) 33 MG/DL 6-20 H CREATININE (test code = 221) 1.77 MG/DL 0.60-1.30 H eGFR (2020 CKD-EPI) (test code = 67348) 35 ML/MIN/1.73 >60 L CALC BUN/CREAT (test [...] 5-40 UNLESS OTHERWISE INDICATED, ALL TESTING PERFORMED [facility] [address] [place] [address] TAG PRESS OPERATOR: JAYCEE RAMIREZ M.D. [place] NUMBER [id number] [place] [place]. [id number] HEMOGLOBIN [id number] 04:18:15* Test Item Value Reference Range Interpretation Comme [facility] HEMOGLOBIN A1c (test code = 79561) 7.5 % 4.2-5.6 H [employer] GUIDELINES FOR HGB A1C: [...] CONSIDER ALTERNATE TESTING OR LABORATORY CONSULTATION. HEMOGLOBIN [id number] 00:00:00* Test Item Value Reference Range Interpretation Comme [facility] HEMOGLOBIN A1c (test code = 77607) 7.5 % LIPID [id number] 00:00:00* Test Item Value Reference Range Interpretation Comme nts CHOLESTEROL (test code = 2210) 174 MG/DL TRIGLYCERIDES (test code = 2232) 192 MG/DL HDL CHOLESTEROL (test code = 2220) 45 MG/DL CALC LDL CHOL (test code = 2237) 100 MG/DL RISK RATIO LDL/HDL (test cod e = 2238) 2.22 RATIO COMPREHENSIVE METABOLIC [id number] 00:00:00* Test Item Value Reference Range Interpretation Comme nts GLUCOSE (test code = 2217) 166 MG/DL BUN (test code = 2208) 33 MG/DL CREATININE (test code = 2214) 1.77 MG/DL eGFR (2020 CKD-EPI) (test co de = 59159) 35 ML/MIN/1.73 CALC BUN/CREAT (test code = [...] = 2219) 8 U/L POCT HEMOGLOBIN A1C [id number] 21:21:00* Test Item Value Reference Range Interpretation Comme [facility] POCT HBA1C (test code = 4548-4) 8.2 % 4-6 A Lab Interpretation (test cod e = 33156-0) Abnormal [facility] Resources[facility]MO[facility] [id number] 05:24:49* Test Item Value Reference Range Interpretation Comme [facility] HEMOGLOBIN A1c (test code = 26442) 7.8 % 4.2-5.6 H [employer] GUIDELINES FOR HGB A1C: [...] CONSIDER ALTERNATE TESTING OR LABORATORY CONSULTATION. LIPID [id number] 05:18:45* Test Item Value Reference Range Interpretation [...] SPECIMENS. FOR MOREINFORMATION, SEE CLIENT ANNOUNCEMENT AT [email or web address] /[email or web address] RISK RATIO LDL/HDL (test code = 223) 3.54 RATIO <3.22 H COMPREHENSIVE METABOLIC [id number] 05:18:45* Test Item Value Reference Range Interpretation Comme nts GLUCOSE (test code = 2217) 202 MG/DL 70-99 H BUN (test code = 220) 23 MG/DL 6-20 H CREATININE (test code = 221) 1.57 MG/DL 0.60-1.30 H eGFR (2020 CKD-EPI) (test code = 47148) 41 ML/MIN/1.73 >60 L CALC BUN/CREAT (test code = 2235) 15 RATIO 6-28 SODIUM (test code = 223) 139 MEQ/L 133-146 POTASSIUM (test code = 222) 4.6 MEQ/L 3.5-5.4 CHLORIDE (test code = 2214) 102 MEQ/L 95-107 CARBON DIOXIDE (test code = 6) 29 MEQ/L 19-31 CALCIUM (test code = [...] 5-40 UNLESS OTHERWISE INDICATED, ALL TESTING PERFORMED [facility] [address] [place] [address] TAG PRESS OPERATOR: JAYCEE RAMIREZ M.D. CLIA NUMBER [id number] [place]. [id number] COMPREHENSIVE METABOLIC PANEL [ADDED]2021-07-26 00:00:00* Test Item Value Reference Range Interpretation Comme nts GLUCOSE (test code = 2217) 202 MG/DL BUN (test code = 2208) 23 MG/DL CREATININE (test code = 2214) 1.57 MG/DL eGFR (2020 CKD-EPI) (test co de = 20179) 41 ML/MIN/1.73 CALC BUN/CREAT (test code = [...] Comme nts HEMOGLOBIN A1c (test code = 22640) 7.8 % LIPID PANEL [ADDED]2021-07-26 00:00:00* Test [...] eGFR (2020 CKD-EPI) (test co de = 65972) 41 ML/MIN/1.73 CALC BUN/CREAT (test code = [...] Comme nts HEMOGLOBIN A1c (test code = 09660) 7.8 % LIPID PANEL [ADDED]2021-07-26 00:00:00* Test Item Value Reference Range Interpretation Comme nts CHOLESTEROL (test code = 2210) 222 MG/DL TRIGLYCERIDES (test code = 2232) 313 MG/DL HDL CHOLESTEROL (test code = 2220) 39 MG/DL CALC LDL CHOL (test code = 2237) 138 MG/DL RISK RATIO LDL/HDL (test cod e = 2238) 3.54 RATIO HEMOGLOBIN [id number] 06:11:51* Test Item Value Reference Range Interpretation Comme nts HEMOGLOBIN A1c (test code = 84013) 10.8 % 4.2-5.6 H [employer] GUIDELINES FOR HGB A1C: [...] CONSIDER ALTERNATE TESTING OR LABORATORY CONSULTATION. LIPID [id number] 05:14:42* Test Item Value Reference Range Interpretation [...] SPECIMENS. FOR MOREINFORMATION, SEE CLIENT ANNOUNCEMENT AT [email or web address] /CalcLDL-C RISK RATIO LDL/HDL (test code = 2238) 2.90 RATIO <3.22 COMPREHENSIVE METABOLIC [id number] 05:14:42* Test Item Value Reference Range Interpretation Comme nts GLUCOSE (test code = 221) 58 MG/DL 70-99 L BUN (test code = 2207) 19 MG/DL 6-20 CREATININE (test code = 2214) 1.40 MG/DL 0.60-1.30 H eGFR (2020 CKD-EPI) (test code = 29287) 47 ML/MIN/1.73 >60 L CALC BUN/CREAT (test [...] 5-40 UNLESS OTHERWISE INDICATED, ALL TESTING PERFORMED [facility] [address] [place] [address] TAG PRESS OPERATOR: JAYCEE RAMIREZ M.D. [place] NUMBER [id number] [place] [place]. [id number] COMPREHENSIVE METABOLIC [id number] 00:00:00* Test Item Value Reference Range Interpretation Comme nts GLUCOSE (test code = 2217) 58 MG/DL BUN (test code = 2208) 19 MG/DL CREATININE (test code = 2214) 1.40 MG/DL eGFR (2020 CKD-EPI) (test co de = 91006) 47 ML/MIN/1.73 CALC BUN/CREAT (test code = [...] (test code = 2219) 11 U/L HEMOGLOBIN [id number] 00:00:00* Test Item Value Reference Range Interpretation Comme nts HEMOGLOBIN A1c (test code = 04112) 10.8 % LIPID [id number] 00:00:00* Test Item Value Reference Range Interpretation Comme nts CHOLESTEROL (test code = 2210) 235 MG/DL TRIGLYCERIDES (test code = 2232) 215 MG/DL HDL CHOLESTEROL (test code = 2220) 51 MG/DL CALC LDL CHOL (test code = 2237) 148 MG/DL RISK RATIO LDL/HDL (test cod e = 2238) 2.90 RATIO COMPREHENSIVE METABOLIC [id number] 00:00:00* Test Item Value Reference Range Interpretation Comme nts GLUCOSE (test code = 2217) 58 MG/DL BUN (test code = 2208) 19 MG/DL CREATININE (test code = 2214) 1.40 MG/DL eGFR (2020 CKD-EPI) (test co de = 60823) 47 ML/MIN/1.73 CALC BUN/CREAT (test code = [...] (test code = 2219) 11 U/L HEMOGLOBIN [id number] 00:00:00* Test Item Value Reference Range Interpretation Comme nts HEMOGLOBIN A1c (test code = 51290) 10.8 % LIPID [id number] 00:00:00* Test Item Value Reference Range Interpretation Comme nts CHOLESTEROL (test code = 2210) 235 MG/DL TRIGLYCERIDES (test code = 2232) 215 MG/DL HDL CHOLESTEROL (test code = 2220) 51 MG/DL CALC LDL CHOL (test code = 2237) 148 MG/DL RISK RATIO LDL/HDL (test cod e = 2238) 2.90 RATIO HEMOGLOBIN [id number] 11:23:29* Test Item Value Reference Range Interpretation Comme nts HEMOGLOBIN A1c (test code = 65454) 13.0 % 4.2-5.6 H [employer] GUIDELINES FOR HGB A1C: [...] OR LABORATORY CONSULTATION. CBC W/AUTO DIFF WITH [id number] 10:40:41* Test Item Value Reference Range Interpretation [...] = 1065) 0.0 /100 WBC'S See_Comment [Automated turboBOTZa ge] The system which generated this result [...] 0.00-0.10 ABS NUCLEATED RBCS (test code = 07130) 0.00 K/UL 0.00-0.11 TSH, THIRD [id number] 06:03:58* Test Item Value Reference Range Interpretation Comme nts TSH, THIRD GENERATION (test code = 2821) 5.840 UIU/ML 0.400-4.100 H UNLESS OTHERWISE INDICATED, ALL TESTING PERFORMED [facility] [address] [place] [address] TAG PRESS OPERATOR: JAYCEE RAMIREZ M.D. IA NUMBER [id number] [place] [place]. [id number] LIPID [id number] 05:12:52* Test Item Value Reference Range Interpretation [...] SPECIMENS. FOR MOREINFORMATION, SEE CLIENT ANNOUNCEMENT AT [email or web address] CalcLDL-C RISK RATIO LDL/HDL (test code = 2238) 4.13 RATIO <3.22 H UNABLE TO DONNA CULATE COMPREHENSIVE METABOLIC [id number] 05:12:52* Test Item Value Reference Range Interpretation Comme nts GLUCOSE (test code = 2217) 304 MG/DL 70-99 H BUN (test code = 2208) 26 MG/DL 6-20 H CREATININE (test code = 2214) 1.81 MG/DL 0.60-1.30 H eGFR (2020 CKD-EPI) (test code = 71838) 34 ML/MIN/1.73 >60 L CALC BUN/CREAT (test [...] normal/abnormal. ALKALINE PHOSPHATASE (test code = 2203) 124 U/L 40-120 H AST (test code = 2218) 15 U/L 9-40 ALT (test code = 2219) 13 U/L 5-40 COMPREHENSIVE METABOLIC [id number] 00:00:00* Test Item Value Reference Range Interpretation Comme nts GLUCOSE (test code = 2217) 304 MG/DL BUN (test code = 2208) 26 MG/DL CREATININE (test code = 2214) 1.81 MG/DL eGFR (2020 CKD-EPI) (test co de = 88899) 34 ML/MIN/1.73 CALC BUN/CREAT (test code = [...] ALT (test code = 2219) 13 U/L [id number] 00:00:00* Test Item Value Reference Range Interpretation Comme nts TSH, THIRD GENERATION (test code = 2821) 5.840 UIU/ML CBC W/AUTO [id number] 00:00:00* Test Item Value Reference Range Interpretation [...] ABS NUCLEATED RBCS (test cod e = 22713) 0.00 K/UL HEMOGLOBIN [id number] 00:00:00* Test Item Value Reference Range Interpretation Comme nts HEMOGLOBIN A1c (test code = 79282) 13.0 % LIPID [id number] 00:00:00* Test Item Value Reference Range Interpretation Comme nts CHOLESTEROL (test code = 2210) 278 MG/DL TRIGLYCERIDES (test code = 2232) 553 MG/DL HDL CHOLESTEROL (test code = 2220) 38 MG/DL CALC LDL CHOL (test code = 2237) (NOTE) MG/DL RISK RATIO LDL/HDL (test cod e = 2238) 4.13 RATIO COMPREHENSIVE METABOLIC [id number] 00:00:00* Test Item Value Reference Range Interpretation Comme nts GLUCOSE (test code = 2217) 304 MG/DL BUN (test code = 2208) 26 MG/DL CREATININE (test code = 2214) 1.81 MG/DL eGFR (2020 CKD-EPI) (test co de = 18815) 34 ML/MIN/1.73 CALC BUN/CREAT (test code = [...] ALT (test code = 2219) 13 U/L [id number] 00:00:00* Test Item Value Reference Range Interpretation Comme nts TSH, THIRD GENERATION (test code = 2821) 5.840 UIU/ML CBC W/AUTO [id number] 00:00:00* Test Item Value Reference Range Interpretation [...] ABS NUCLEATED RBCS (test cod e = 05048) 0.00 K/UL HEMOGLOBIN [id number] 00:00:00* Test Item Value Reference Range Interpretation Comme nts HEMOGLOBIN A1c (test code = 88920) 13.0 % LIPID [id number] 00:00:00* Test Item Value Reference Range Interpretation Comme nts CHOLESTEROL (test code = 2210) 278 MG/DL TRIGLYCERIDES (test code = 2232) 553 MG/DL HDL CHOLESTEROL (test code = 2220) 38 MG/DL CALC LDL CHOL (test code = 2237) (NOTE) MG/DL RISK RATIO LDL/HDL (test cod e = 2238) 4.13 RATIO LIPID [id number] 04:41:06* Test Item Value Reference Range Interpretation [...] SPECIMENS. FOR MOREINFORMATION, SEE CLIENT ANNOUNCEMENT AT [email or web address]/ CalcLDL-C RISK RATIO LDL/HDL (test code = 2238) 3.83 RATIO <3.22 H UNABLE TO DONNA CULATE COMPREHENSIVE METABOLIC [id number] 04:41:06* Test Item Value Reference Range Interpretation Comme nts GLUCOSE (test code = 2217) 87 MG/DL 70-99 BUN (test code = 2208) 19 MG/DL 6-20 CREATININE (test code = 2214) 1.31 MG/DL 0.60-1.30 H EFFECTIVE 2020, [facility] HAS IMPLEMENTED THE NKF-ASN RECOMMENDED KD-EPI EGFR REFIT CALCULATION THAT DOES NOT INCLUDE A COEFFICIENT FORRACE. FOR MORE INFORMATION, SEE ANNOUNCEMENT [email or web address] eGFR (2020 CKD-EPI) (test code = 09893) 51 ML/MIN/1.73 >60 L CALC BUN/CREAT (test [...] 5-40 UNLESS OTHERWISE INDICATED, ALL TESTING PERFORMED [facility] [employer] [address] [place] [address] TAG PRESS OPERATOR: JAYCEE RAMIREZ M.D. [place] NUMBER [id number] [place] [place]. [id number] HEMOGLOBIN [id number] 02:36:52* Test Item Value Reference Range Interpretation Comme nts HEMOGLOBIN A1c (test code = 28698) 7.3 % 4.2-5.6 H [employer] GUIDELINES FOR HGB A1C: [...] ALTERNATE TESTING OR LABORATORY CONSULTATION. COMPREHENSIVE METABOLIC [id number] 00:00:00* Test Item Value Reference Range Interpretation Comme nts GLUCOSE (test code = 2217) 87 MG/DL BUN (test code = 2208) 19 MG/DL CREATININE (test code = 2214) 1.31 MG/DL eGFR (2020 CKD-EPI) (test co de = 56483) 51 ML/MIN/1.73 CALC BUN/CREAT (test code = [...] (test code = 2219) 13 U/L HEMOGLOBIN [id number] 00:00:00* Test Item Value Reference Range Interpretation Comme nts HEMOGLOBIN A1c (test code = 30607) 7.3 % LIPID [id number] 00:00:00* Test Item Value Reference Range Interpretation Comme nts CHOLESTEROL (test code = 2210) 230 MG/DL TRIGLYCERIDES (test code = 2232) 455 MG/DL HDL CHOLESTEROL (test code = 2220) 35 MG/DL CALC LDL CHOL (test code = 2237) (NOTE) MG/DL RISK RATIO LDL/HDL (test cod e = 2238) 3.83 RATIO COMPREHENSIVE METABOLIC [id number] 00:00:00* Test Item Value Reference Range Interpretation Comme nts GLUCOSE (test code = 2217) 87 MG/DL BUN (test code = 2208) 19 MG/DL CREATININE (test code = 2214) 1.31 MG/DL eGFR (2020 CKD-EPI) (test co de = 28293) 51 ML/MIN/1.73 CALC BUN/CREAT (test code = [...] (test code = 2219) 13 U/L HEMOGLOBIN [id number] 00:00:00* Test Item Value Reference Range Interpretation Comme nts HEMOGLOBIN A1c (test code = 16042) 7.3 % LIPID [id number] 00:00:00* Test Item Value Reference Range Interpretation Comme nts CHOLESTEROL (test code = 2210) 230 MG/DL TRIGLYCERIDES (test code = 2232) 455 MG/DL HDL CHOLESTEROL (test code = 2220) 35 MG/DL CALC LDL CHOL (test code = 2237) (NOTE) MG/DL RISK RATIO LDL/HDL (test cod e = 2238) 3.83 RATIO COMPREHENSIVE METABOLIC [id number] 00:00:00* Test Item Value Reference Range Interpretation Comme nts GLUCOSE (test code = 2217) 147 MG/DL BUN (test code = 2208) 23 MG/DL CREATININE (test code = 2214) 1.27 MG/DL eGFR AMER. (test cod e = 80013) 59 ML/MIN/1.73 eGFR NON- AMER. (test code = 99346) 51 ML/MIN/1.73 CALC BUN/CREAT (test code = [...] (test code = 2219) 11 U/L HEMOGLOBIN [id number] 00:00:00* Test Item Value Reference Range Interpretation Comme nts HEMOGLOBIN A1c (test code = 43481) 7.2 % LIPID [id number] 00:00:00* Test Item Value Reference Range Interpretation Comme nts CHOLESTEROL (test code = 2210) 250 MG/DL TRIGLYCERIDES (test code = 2232) 312 MG/DL HDL CHOLESTEROL (test code = 2220) 41 MG/DL CALC LDL CHOL (test code = 2237) 161 MG/DL RISK RATIO LDL/HDL (test cod e = 2238) 3.93 RATIO COMPREHENSIVE METABOLIC [id number] 00:00:00* Test Item Value Reference Range Interpretation Comme nts GLUCOSE (test code = 2217) 147 MG/DL BUN (test code = 2208) 23 MG/DL CREATININE (test code = 2214) 1.27 MG/DL eGFR AMER. (test cod e = 57954) 59 ML/MIN/1.73 eGFR NON- AMER. (test code = 91930) 51 ML/MIN/1.73 CALC BUN/CREAT (test code = [...] (test code = 2219) 11 U/L HEMOGLOBIN [id number] 00:00:00* Test Item Value Reference Range Interpretation Comme nts HEMOGLOBIN A1c (test code = 62271) 7.2 % LIPID [id number] 00:00:00* Test Item Value Reference Range Interpretation Comme nts CHOLESTEROL (test code = 2210) 250 MG/DL TRIGLYCERIDES (test code = 2232) 312 MG/DL HDL CHOLESTEROL (test code = 2220) 41 MG/DL CALC LDL CHOL (test code = 2237) 161 MG/DL RISK RATIO LDL/HDL (test cod e = 2238) 3.93 RATIO PAP TEST, THINPREP, [id number] 00:00:00* Test Item Value Reference Range Interpretation Comme nts SOURCE: (test code = 8001) Endocervical SLIDES: (test code = 8011) 1 LMP: (test code = 8021) 06/27/2020 SPECIMEN ADEQUACY: (test code = 47907) (NOTE) INTERPRETATION: (test code = 73720) NILM/NO EPITH. ABNORMALITY;SEE BELOW CARDING MACHINE OPERATOR: (test code = 8101) OSCAR Heaton(ASCP) QC TECHNOLOGIST: (test code = 8111) [facility](AS[facility] LOCATION: (test code = 81321) (NOTE) CPT: (test code = 8140) (NOTE) PAP TEST, THINPREP, [id number] 00:00:00* Test Item Value Reference Range Interpretation Comme [facility] SOURCE: (test code = 8001) Endocervical SLIDES: (test code = 8011) 1 LMP: (test code = 8021) 06/27/2020 SPECIMEN ADEQUACY: (test code = 91219) (NOTE) INTERPRETATION: (test code = 01638) NILM/NO EPITH. ABNORMALITY;SEE BELOW CARDING MACHINE OPERATOR: (test code = 8101) OSCAR Heaton(ASCP) QC TECHNOLOGIST: (test code = 8111) Justice [facility] LOCATION: (test code = 51203) (NOTE) CPT: (test code = 8140) (NOTE) CULTURE, [id number] 00:00:00* Test Item Value Reference Range Interpretation Comme [facility] CULTURE, URINE (test code = 75241) SPECIMEN NUMBER: [id number] CULTURE, [id number] 00:00:00* Test Item Value Reference Range Interpretation Comme [facility] CULTURE, URINE (test code = 46087) SPECIMEN NUMBER: [id number] HPV HIGH RISK WITH GENOTYPE, [id number] 00:00:00* Test Item Value Reference Range Interpretation Comme [facility] HPV HIGH RISK INTERP (test c ode = 70055) POSITIVE HPV 16 (test code = 28690) NEGATIVE HPV 18 (test code = 56861) NEGATIVE HPV, HR, OTHER GENOTYPES (te st code = 20742) POSITIVE HPV HIGH RISK WITH GENOTYPE, [id number] 00:00:00* Test Item Value Reference Range Interpretation Comme nts HPV HIGH RISK INTERP (test c ode = 77240) POSITIVE HPV 16 (test code = 05435) NEGATIVE HPV 18 (test code = 28730) NEGATIVE HPV, HR, OTHER GENOTYPES (te st code = 18659) POSITIVE VITAMIN D, 25 [id number] 00:00:00* Test Item Value Reference Range Interpretation Comme nts VITAMIN D, 25 OH (test code = 4958) TEST NOT PERFORMED NG/ML VITAMIN D, 25 [id number] 00:00:00* Test Item Value Reference Range Interpretation Comme nts VITAMIN D, 25 OH (test code = 4958) TEST NOT PERFORMED NG/ML CBC W/AUTO [id number] 00:00:00* Test Item Value Reference Range Interpretation [...] ABS NUCLEATED RBCS (test cod e = 74518) 0.00 K/UL CBC W/AUTO [id number] 00:00:00* Test Item Value Reference Range Interpretation [...] ABS NUCLEATED RBCS (test cod e = 31428) 0.00 K/UL COMPREHENSIVE METABOLIC [id number] 00:00:00* Test Item Value Reference Range Interpretation Comme nts GLUCOSE (test code = 2217) 300 MG/DL BUN (test code = 2208) 23 MG/DL CREATININE (test code = 2214) 1.24 MG/DL eGFR AMER. (test cod e = 61179) 60 ML/MIN/1.73 eGFR NON- AMER. (test code = 96864) 52 ML/MIN/1.73 CALC BUN/CREAT (test code = [...] 1.0 RATIO BILIRUBIN, TOTAL (test code = 7) <0.2 MG/DL ALKALINE PHOSPHATASE (test code = 220) 114 U/L AST (test code = 2218) 12 U/L ALT (test code = 2219) 12 U/L [id number] 00:00:00* Test Item Value Reference Range Interpretation Comme nts TSH, THIRD GENERATION (test code = 2821) 6.280 UIU/ML HEMOGLOBIN [id number] 00:00:00* Test Item Value Reference Range Interpretation Comme nts HEMOGLOBIN A1c (test code = 10710) 11.5 % LIPID [id number] 00:00:00* Test Item Value Reference Range Interpretation Comme nts CHOLESTEROL (test code = 2210) 260 MG/DL TRIGLYCERIDES (test code = 2232) 353 MG/DL HDL CHOLESTEROL (test code = 0) 40 MG/DL CALC LDL CHOL (test code = 7) 160 MG/DL RISK RATIO LDL/HDL (test cod e = 2238) 4.00 RATIO COMPREHENSIVE METABOLIC [id number] 00:00:00* Test Item Value Reference Range Interpretation Comme nts GLUCOSE (test code = 2216) 300 MG/DL BUN (test code = 8) 23 MG/DL CREATININE (test code = 2214) 1.24 MG/DL eGFR AMER. (test cod e = 93839) 60 ML/MIN/1.73 eGFR NON- AMER. (test code = 81095) 52 ML/MIN/1.73 CALC BUN/CREAT (test code = [...] <0.2 MG/DL ALKALINE PHOSPHATASE (test code = 220) 114 U/L AST (test code = 2218) 12 U/L ALT (test code = 2219) 12 U/L [id number] 00:00:00* Test Item Value Reference Range Interpretation Comme nts TSH, THIRD GENERATION (test code = 2821) 6.280 UIU/ML HEMOGLOBIN [id number] 00:00:00* Test Item Value Reference Range Interpretation Comme nts HEMOGLOBIN A1c (test code = 84729) 11.5 % LIPID [id number] 00:00:00* Test Item Value Reference Range Interpretation Comme nts CHOLESTEROL (test code = 2210) 260 MG/DL TRIGLYCERIDES (test code = 2232) 353 MG/DL HDL CHOLESTEROL (test code = 2220) 40 MG/DL CALC LDL CHOL (test code = 2237) 160 MG/DL RISK RATIO LDL/HDL (test cod e = 2238) 4.00 RATIO COMPREHENSIVE METABOLIC [id number] 00:00:00* Test Item Value Reference Range Interpretation Comme nts GLUCOSE (test code = 7) 313 MG/DL BUN (test code = 2208) 15 MG/DL CREATININE (test code = 2214) 0.71 MG/DL eGFR AMER. (test cod e = 76541) 123 ML/MIN/1.73 eGFR NON- AMER. (test code = 08010) 106 ML/MIN/1.73 CALC BUN/CREAT (test code = [...] RATIO BILIRUBIN, TOTAL (test code = 220) 0.3 MG/DL ALKALINE PHOSPHATASE (test code = 2204) 110 U/L AST (test code = 2218) 13 U/L ALT (test code = 2219) 11 U/L LIPID [id number] 00:00:00* Test Item Value Reference Range Interpretation [...] (test code = 2821) 17.0 UIU/ML HEMOGLOBIN [id number] 00:00:00* Test Item Value Reference Range Interpretation Comme nts HEMOGLOBIN A1c (test code = 10253) 12.3 % CBC W/AUTO [id number] 00:00:00* Test Item Value Reference Range Interpretation [...] code = 1015) 408 K/UL COMPREHENSIVE METABOLIC [id number] 00:00:00* Test Item Value Reference Range Interpretation Comme nts GLUCOSE (test code = 2217) 313 MG/DL BUN (test code = 2208) 15 MG/DL CREATININE (test code = 2214) 0.71 MG/DL eGFR AMER. (test cod e = 50732) 123 ML/MIN/1.73 eGFR NON- AMER. (test code = 28852) 106 ML/MIN/1.73 CALC BUN/CREAT (test code = [...] (test code = 2219) 11 U/L LIPID [id number] 00:00:00* Test Item Value Reference Range Interpretation [...] (test code = 2821) 17.0 UIU/ML HEMOGLOBIN [id number] 00:00:00* Test Item Value Reference Range Interpretation Comme nts HEMOGLOBIN A1c (test code = 23454) 12.3 % CBC W/AUTO [id number] 00:00:00* Test Item Value Reference Range Interpretation [...] 09/07/2022 Performed by Keshawn Jones MD at [facility] ESOPHAGUS ENDOSCOPY 2023 LAPAROSCOPIC CHOLECYSTECTOMY 2023 TUBAL LIGATION UPPER GI ENDOSCOPY, BIOPSY N/A 09/07/2022 Performed by Keshawn Jones MD at [facility] Social History Tobacco Use Smoking status: Former [...] PPI for testing Keshawn Jones MD Gastroenterology [facility] 2023-04-16 10:46:10 [facility] Gastroenterology followup patient note CC: PASHA [...] 09/07/2022 Performed by Keshawn Jones MD at [facility] ESOPHAGUS ENDOSCOPY 2023 LAPAROSCOPIC CHOLECYSTECTOMY 2023 TUBAL LIGATION UPPER GI ENDOSCOPY, BIOPSY N/A 09/07/2022 Performed by Keshawn Jones MD at [facility] Social History Tobacco Use Smoking status: Former [...] RTC; 4 weeks Keshawn Jones MD Gastroenterology [facility] 2023-02-16 11:07:50 CC: uterine prolapse, abnl [...] da josé TLH w/ bilateral salpingectomy per co followed with anterior repair and SSLF, along [...] 09/07/2022 Performed by Keshawn Jones MD at [facility] TUBAL LIGATION UPPER GI ENDOSCOPY, BIOPSY N/A 09/07/2022 Performed by Keshawn Jones MD at [facility] Current Outpatient Medications on File Prior to [...] education level: 8th grade Occupational History Occupation: [employer] Tobacco Use Smoking status: Former Types: E-cigarettes [...] TLH w/ bilateral salpingectomy on 03/02/23 at [facility] in [facility] per co followed with anterior repair and SSLF, along [...] pain meds escribed today (norco and motrin). [facility]
[2024-02-07] MEDS ORDERED: NA CHLORIDE 0.9% 1,000 ML ONE ×2 (06:41→12:39)
[2024-02-07] MEDS ORDERED: droPERidol 5 MG/2 ML VIAL ONE (06:41)
[2024-02-07] MEDS ORDERED: DICYCLOMINE HCL 20 MG/2 ML AMP IM ONE (06:46)
[2024-02-07 07:11] LABS: Absolute Basophils 0.1 K/uL (0-0.5); Absolute Lymphocytes (CBC) 3.5 K/uL (0.7-4.9); Absolute Monocytes 1.1 K/uL (0.1-1.3); Absolute Neutrophil 15.6 K/uL (1.8-8.0); Basophils % 0.4 % (0-1.3); Eosinophils % 0.2 % (0-4.4); Hematocrit 32.3 % (36.0-45.0); Hemoglobin 10.9 g/dL (12.0-15.0); Lymphocytes % 17.1 % (15.3-44.8); MCH 30.9 pg (27.0-35.0); MCHC 33.8 g/dL (32.0-36.0); MCV 91.4 fL (80-100); Monocytes % 5.5 % (3.3-12.3); Neutrophils % 76.8 % (41.7-73.7); Platelets 523 thou/uL (152-406); RBC Red Blood Cell Count 3.53 M/uL (3.86-4.86); Red Cell Distribution Width 11.9 % (12.1-15.2)
[2024-02-07 07:24] LABS: Albumin 3.3 g/dL (3.4-5.0); Albumin/Globulin Ratio 0.7 (1.1-1.8); Anion Gap 16.6 mEq/L (5.0-15.0); Bilirubin Total 0.5 mg/dL (0.2-1.0); Globulin 4.7 g/dL (2.3-3.5); Potassium 3.6 mEq/L (3.5-5.1)
[2024-02-07] MEDS ORDERED: MORPHINE 4 MG/ML SYR ONE (07:30)
[2024-02-07] MEDS ORDERED: ONDANSETRON 4 MG/2 ML VIAL ONE (07:30)
[2024-02-07 07:55] LABS: Specific Gravity 1.009 (1.005-1.030); Sqamous Epithelial <5 /HPF (None Seen); Urine Bacteria <20 /HPF (<20); Urine Bilirubin NEGATIVE (Negative); Urine Blood 3+ (Negative); Urine Clarity Extremely Turbid (Clear); Urine Color Colorless (Yellow); Urine Culture Reflex Order REFLEXED; Urine Glucose 3+ (Negative); Urine Ketones 1+ (Negative); Urine Microscopic Reflex YN ORDER UMIC; Urine Mucus Slight /HPF (None Seen); Urine Nitrite NEGATIVE (Negative); Urine Protein 3+ (Negative); Urine RBC >50 /HPF (None Seen); Urine Urobilinogen Normal (Normal); Urine pH 7.5 (5.0-7.0)
[2024-02-07 08:27] LABS: Blood Morphology Comment NOT SEEN (NOT SEEN); Platelet Estimate INCR; White Blood Cell Scan OK (OK)
--- NOTE | 2024-02-07 09:41 | EDPHYS ---
Physician Documentation [facility] Name: Elsy Bradford Age: 49 yrs Sex: Female : 1975 Arrival Date: 02/07/2024 Time: 06:26 Bed 18 Private MD: ED Physician Rory Burdick HPI: 02/06 07:32 This 49 yrs old Female presents to ER via Wheelchair with complaints of rn Abdominal Pain, Nausea/Vomiting. 07:32 The patient presents to the emergency department with nausea, vomiting, abdominal pain. rn Onset: The symptoms/episode began/occurred yesterday. Possible causes: Gastroparesis. The symptoms are aggravated by pressure, The symptoms are alleviated by nothing. Severity of symptoms: At their worst the symptoms were moderate in the emergency department the symptoms are unchanged. The patient has experienced similar episodes in the past. Patient reports chronic abdominal pain, diagnosed with gastroparesis, states this happens 2 or 3 times a month. Seen here yesterday with negative CT, felt better but went home and started vomiting again. Return today for increased abdominal pain and vomiting. No blood in emesis. Has had cholecystectomy.. 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 - Infectious Disease History:: Denies. - Social history:: Smoking status: Patient denies any tobacco usage or history of. Patient/guardian denies using alcohol, street drugs. - Family history:: not pertinent. - Hospitalizations: : No recent hospitalization is reported. ROS: 07:32 Constitutional: Negative for fever, chills, and weight loss, Cardiovascular: Negative rn for chest pain, palpitations, and edema, Respiratory: Negative for shortness of breath, cough, wheezing, and pleuritic chest pain, Abdomen/GI: Positive for abdominal pain with nausea and vomiting MS/Extremity: Negative for injury and deformity, Skin: Negative for injury, rash, and discoloration, Neuro: Negative for headache, numbness, tingling, and seizure, Exam: 07:32 Constitutional: This is a well developed, well nourished patient who is awake, alert, rn appears uncomfortable Head/Face: Normocephalic, atraumatic. Cardiovascular: Regular rate and rhythm. No pulse deficits. Respiratory: No increased work of breathing, no retractions or nasal flaring. Abdomen/GI: Soft, mild epigastric tenderness MS/ Extremity: Pulses equal, no cyanosis. Neuro: Awake and alert, GCS 15 Vital Signs: 06:51 Weight 67.59 kg; Height 4 ft. 11 in. ; Pain 10/10; lg3 06:55 BP 189 / 88; Pulse 85; Resp 19; Temp 98.2; Pulse Ox 99% on R/A; Weight 67.13 kg; Height rg5 4 ft. 11 in. ; Pain 10/10; 07:15 BP 202 / 114; Pulse 80; Resp 15; Pulse Ox 100% ; Pain 10/10; jl7 09:06 BP 117 / 79; Pulse 72; Resp 15; Pulse Ox 98% ; Pain 7/10; jl7 10:00 BP 115 / 80; Pulse 66; Resp 16; Pulse Ox 99% ; cm10 11:30 BP 113 / 67; Pulse 66; Resp 15; Pulse Ox 97% ; cm10 06:55 Body Mass Index 29.89 (67.13 kg, 149.86 cm) rg5 06:51 Pain Scale: Adult lg3 06:55 Pain Scale: Adult rg5 07:15 Pain Scale: Adult jl7 09:06 Pain Scale: Adult jl7 MDM: 06:32 Medical Screening Exam initiated ec2 09:37 Differential diagnosis: Nonspecific abd pain, gastritis, pancreatitis, appendicitis, rn diverticulitis, viral gastroenteritis, gastroenteritis, Gastroparesis. Data reviewed: vital signs, nurses notes, old medical records, lab test result(s), and as a result, I will admit patient. Consideration of Admission/Observation Patient was admitted/placed on observation. Escalation of care including admission/observation considered. Counseling: I had a detailed discussion with the patient and/or guardian regarding the historical points, exam findings, and any diagnostic results supporting the discharge/admit diagnosis, lab results, radiology results, the need for further work-up and treatment in the hospital. Response to treatment: There is no appreciated change of the patient's symptoms at this time, and as a result, I will admit patient. ED course: Patient with worsening of renal function, white blood cell count up from yesterday, CT abdomen pelvis negative yesterday. Still having pain and nausea with vomiting, will admit to hospital service for further care.. 02/06 06:32 Order name: CBC with Diff; Complete Time: 09:31 ec2 02/06 06:32 Order name: CMP; Complete Time: 07:27 ec2 02/06 06:32 Order name: Lipase; Complete Time: 07:27 ec2 02/06 06:32 Order name: Urinalysis w/ reflexes; Complete Time: 09:31 ec2 02/06 07:58 Order name: Urine Culture EDCT 02/06 08:27 Order name: CBC Smear Scan; Complete Time: 09:31 EDCT 02/06 11:03 Order name: T4 Free EDCT 02/06 11:03 Order name: Thyroid Stimulating Hormone EDCT 02/06 11:03 Order name: Urinalysis w/ reflexes EDCT 02/06 11:03 Order name: Basic Metabolic Panel EDCT 02/06 11:03 Order name: Basic Metabolic Panel EDCT 02/06 11:03 Order name: Basic Metabolic Panel EDCT 02/06 11:03 Order name: Basic Metabolic Panel [facility] 02/06 11:03 Order name: CBC with Automated Diff EDCT 02/06 11:03 Order name: CBC with Automated Diff EDCT 02/06 11:03 Order name: Comprehensive Metabolic Panel EDCT 02/06 11:03 Order name: Comprehensive Metabolic Panel EDCT 02/06 11:03 Order name: Lipid Profile EDCT 02/06 11:03 Order name: Lipid Profile EDCT 02/06 11:03 Order name: Magnesium EDCT 02/06 11:03 Order name: Magnesium EDCT 02/06 11:03 Order name: Phosphorus EDCT 02/06 11:03 Order name: Phosphorus EDCT 02/06 12:04 Order name: BETA HYDROXYBUTYRATE EDCT 02/06 12:37 Order name: ABG Arterial Blood Gas EDMS 02/06 12:42 Order name: Glucose, Ancillary Testing EDMS 02/06 14:19 Order name: Glucose, Ancillary Testing EDMS 02/06 17:04 Order name: Glucose, Ancillary Testing EDMS 02/06 06:32 Order name: IV Saline Lock; Complete Time: 06:37 ec2 02/06 06:32 Order name: Labs collected and sent; Complete Time: 06:37 ec2 Administered Medications: 06:50 Drug: Dicyclomine IM 20 mg IM once Route: IM; Site: right deltoid; rg5 07:00 Follow up: Response: No adverse reaction jl7 06:51 Drug: Droperidol IVP 2.5 mg IVP once Route: IVP; Site: left forearm; jl7 07:00 Follow up: Response: No adverse reaction jl7 06:51 Drug: NS 0.9% IV 1000 ml IV at 1000 ml once; to be given as a bolus over 60 minutes jl7 Route: IV; Rate: 1000 ml; Site: left forearm; 08:00 Follow up: Response: No adverse reaction; IV Status: Completed infusion; IV Intake: jl7 1000ml 07:40 Drug: Ondansetron IVP 4 mg IVP once; over 2 minutes Route: IVP; Site: left forearm; jl7 08:00 Follow up: Response: No adverse reaction; Nausea is decreased jl7 07:41 Drug: morphine IVP or IV 4 mg IVP once over 4 mins Route: IVP; Infused Over: 4 mins; jl7 Site: left forearm; 08:00 Follow up: Response: No adverse reaction; Pain is decreased jl7 16:48 Not Given (Hemodynamic Parameters): [id number] mg IVP once cm10 Disposition Summary: 02/07/24 09:40 Hospitalization Ordered Notes: Hospitalization Status: Observation rn Provider: Richie Foss rn Condition: Stable rn Problem: new rn Symptoms: have improved rn Bed/Room Type: Standard rn Location: Telemetry/MedSurg (observation)(02/07/24 15:31) kb3 Room Assignment: 201(02/07/24 15:31) kb3 Diagnosis - Gastroparesis rn - Intractable pain and vomiting rn - Acidosis rn Forms: - Medication Reconciliation Form rn - SBAR form rn - Leadership Thank You Letter rn Signatures: Dispatcher [employer] EDMS Maite Olson, BRUSH OR BROOM CUTTER-C BRUSH OR BROOM CUTTER-Csnw Rory Burdick MD MD rn Leal, Jahala, RN RN jl7 Catie Arevalo, KARELY RN lg3 Alexandra Valera RN RN kb3 Lew Mohan MD MD ec2 Derrick Mcclain, KARELY RN rg5 Cheryl Kohler RN cm10 Corrections: (The following items were deleted from the chart) 06:33 06:33 CBC+H.LAB.BRZ ordered. EDMS EDMS 06:33 06:33 COMPREHENSIVE METABOLIC PANEL+C.LAB.BRZ ordered. EDMS EDMS 06:33 06:33 LIPASE+C.LAB.BRZ ordered. EDMS EDMS 06:33 06:33 Urinalysis+U.LAB.BRZ ordered. EDMS EDMS 12:52 09:40 Telemetry/MedSurg (observation) rn kb3 12:52 09:40 rn kb3 15:31 12:52 [facility] ER HOLD kb3 kb3 15:31 12:52 ERHOLD- kb3 kb3
--- NOTE | 2024-02-07 09:41 | ER ---
Nurse's Notes [facility] Name: Elsy Bradford Age: 49 yrs Sex: Female : 1975 Arrival Date: 02/07/2024 Time: 06:26 Bed 18 Private MD: Diagnosis: Gastroparesis;Intractable pain and vomiting;Acidosis Presentation: 02/06 06:51 Chief complaint: Patient states: abdominal pain, nausea, vomiting X1 week. Coronavirus lg3 screen: Client denies travel out of the [place] in the last 14 days. At this time, the client does not indicate any symptoms associated with coronavirus-19. Ebola Screen: No symptoms or risks identified at this time. Risk Assessment: Do you want to hurt yourself or someone else? Patient reports no desire to harm self or others. Onset of symptoms is unknown. 06:51 Method Of Arrival: Wheelchair lg3 06:51 Acuity: ALIN 3 lg3 07:00 Initial Sepsis Screen: Does the patient meet any 2 criteria? No. Patient's initial jl7 sepsis screen is negative. Does the patient have a suspected source of infection? No. Patient's initial sepsis screen is negative. Triage Assessment: 06:52 General: Appears in no apparent distress. uncomfortable, Behavior is fussy, restless. lg3 Pain: Complains of pain in abdomen. EENT: No deficits noted. No signs and/or symptoms were reported regarding the EENT system. Neuro: No deficits noted. Braxton Agitation-Sedation Scale (RASS): 0 - Alert and Calm Level of Consciousness is awake, alert, obeys commands, Oriented to person, place, time, situation. Cardiovascular: No deficits noted. Denies chest pain, shortness of breath, Capillary refill < 3 seconds Clubbing of nail beds is absent JVD is absent Patient's skin is warm and dry. Respiratory: No deficits noted. Airway is patent Respiratory effort is even, unlabored, Respiratory pattern is regular, symmetrical. GI: Abdomen is round non-distended, obese, Reports lower abdominal pain, upper abdominal pain, cramping, gaseousness, nausea, vomiting. : No signs and/or symptoms were reported regarding the genitourinary system. Derm: No deficits noted. No signs and/or symptoms reported regarding the dermatologic system. Skin is intact, is healthy with good turgor, Skin is dry, Skin is normal, Skin temperature is warm. Musculoskeletal: No deficits noted. No signs and/or symptoms reported regarding the musculoskeletal system. Circulation, motion, and sensation intact. Range of motion: intact in all extremities. 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 - Infectious Disease History:: Denies. - Social history:: Smoking status: Patient denies any tobacco usage or history of. Patient/guardian denies using alcohol, street drugs. - Family history:: not pertinent. - Hospitalizations: : No recent hospitalization is reported. Screenin:57 [facility] ED Fall Risk Assessment (Adult) History of falling in the last 3 months, rg5 including since admission No falls in past 3 months (0 pts) Confusion or Disorientation No (0 pts) Intoxicated or Sedated No (0 pts) Impaired Gait No (0 pts) Mobility Assist Device Used No (0 pt) Altered Elimination No (0 pt) Score/Fall Risk Level 0 - 2 = Low Risk Oriented to surroundings, Maintained a safe environment, Hourly rounding (assess needs \T\ fall precautionary measures) done. Abuse screen: Denies threats or abuse. Nutritional screening: No deficits noted. Tuberculosis screening: No symptoms or risk factors identified. Assessment: 06:53 General: Appears in no apparent distress. Behavior is cooperative, appropriate for age. rg5 Pain: Complains of pain in abdomen Pain currently is 10 out of 10 on a pain scale. Quality of pain is described as aching, crampy. Neuro: Level of Consciousness is awake, alert, Oriented to person, place, time. Cardiovascular: Patient's skin is warm and dry. Respiratory: Airway is patent Trachea midline Respiratory effort is even, unlabored, Respiratory pattern is regular, symmetrical, Breath sounds are clear. GI: Abdomen is round obese, Bowel sounds present in left lower quadrant Abd is soft and non tender Guarding noted Reports upper abdominal pain. : No signs and/or symptoms were reported regarding the genitourinary system. EENT: No deficits noted. Derm: Skin is intact, Skin is dry, Skin is normal. Musculoskeletal: Circulation, motion, and sensation intact. Range of motion:. 07:15 Reassessment: Patient and/or family updated on plan of care and expected duration. Pain jl7 level reassessed. Patient is alert, oriented x 3, equal unlabored respirations, skin warm/dry/pink. Pain: Complains of pain in abdomen Pain currently is 8 out of 10 on a pain scale. Quality of pain is described as aching, crampy, Is continuous. Neuro: Level of Consciousness is awake, alert, obeys commands, Oriented to person, place, time, situation. Cardiovascular: Patient's skin is warm and dry. Respiratory: Airway is patent Respiratory effort is even, unlabored, Respiratory pattern is regular, symmetrical. GI: Abdomen is round non-distended, obese, Abd is soft Abdomen is tender to palpation Guarding noted Reports nausea, vomiting. Derm: Skin is pink, warm \T\ dry. 08:00 Reassessment: Patient appears in no apparent distress at this time. Patient and/or jl7 family updated on plan of care and expected duration. Pain level reassessed. Patient is alert, oriented x 3, equal unlabored respirations, skin warm/dry/pink. 09:00 Reassessment: Patient appears in no apparent distress at this time. Patient and/or jl7 family updated on plan of care and expected duration. Pain level reassessed. Patient is alert, oriented x 3, equal unlabored respirations, skin warm/dry/pink. pain rated 7/10 at this time. Vital Signs: 06:51 Weight 67.59 kg; Height 4 ft. 11 in. ; Pain 10/10; lg3 06:55 BP 189 / 88; Pulse 85; Resp 19; Temp 98.2; Pulse Ox 99% on R/A; Weight 67.13 kg; Height rg5 4 ft. 11 in. ; Pain 10/10; 07:15 BP 202 / 114; Pulse 80; Resp 15; Pulse Ox 100% ; Pain 10/10; jl7 09:06 BP 117 / 79; Pulse 72; Resp 15; Pulse Ox 98% ; Pain 7/10; jl7 10:00 BP 115 / 80; Pulse 66; Resp 16; Pulse Ox 99% ; cm10 11:30 BP 113 / 67; Pulse 66; Resp 15; Pulse Ox 97% ; cm10 06:55 Body Mass Index 29.89 (67.13 kg, 149.86 cm) rg5 06:51 Pain Scale: Adult lg3 06:55 Pain Scale: Adult rg5 07:15 Pain Scale: Adult jl7 09:06 Pain Scale: Adult jl7 ED Course: 06:29 Patient arrived in ED. gm2 06:35 Derrick Mcclain, KARELY is Primary Nurse. rg5 06:52 Triage completed. lg3 06:52 Arm band placed on right wrist. lg3 06:54 Initial lab(s) drawn, by sc, sent to lab. Inserted saline lock: 22 gauge in left lg3 forearm, using aseptic technique. Blood collected. Flushed with 10 mL NS. Patient maintains SpO2 saturation greater than 95% on room air. 06:57 Patient has correct armband on for positive identification. Call light in reach. Side rg5 rails up X 1. 06:57 No provider procedures requiring assistance completed. rg5 07:01 Primary Nurse role handed off by Derrick Mcclain RN rg5 07:01 Antonio Scott, KARELY is Primary Nurse. jl7 07:02 Rory Burdick MD is Attending Physician. rn 07:15 Provided Education on: use of call villalta. jl7 07:18 Flushed left peripheral line with 5 ml normal saline. jl7 07:39 Pulse ox on. NIBP on. jl7 09:38 Richie Foss is Hospitalizing Provider. rn 10:07 Primary Nurse role handed off by Antonio Scott RN cm10 10:07 Cheryl Kohler, KARELY is Primary Nurse. cm10 12:00 Patient admitted, IV remains in place. cm10 Administered Medications: 06:50 Drug: Dicyclomine IM 20 mg IM once Route: IM; Site: right deltoid; rg5 07:00 Follow up: Response: No adverse reaction jl7 06:51 Drug: Droperidol IVP 2.5 mg IVP once Route: IVP; Site: left forearm; jl7 07:00 Follow up: Response: No adverse reaction jl7 06:51 Drug: NS 0.9% IV 1000 ml IV at 1000 ml once; to be given as a bolus over 60 minutes jl7 Route: IV; Rate: 1000 ml; Site: left forearm; 08:00 Follow up: Response: No adverse reaction; IV Status: Completed infusion; IV Intake: jl7 1000ml 07:40 Drug: Ondansetron IVP 4 mg IVP once; over 2 minutes Route: IVP; Site: left forearm; jl7 08:00 Follow up: Response: No adverse reaction; Nausea is decreased jl7 07:41 Drug: morphine IVP or IV 4 mg IVP once over 4 mins Route: IVP; Infused Over: 4 mins; jl7 Site: left forearm; 08:00 Follow up: Response: No adverse reaction; Pain is decreased jl7 16:48 Not Given (Hemodynamic Parameters): [id number] mg IVP once cm10 Medication: 07:15 VIS not applicable for this client. jl7 Intake: 08:00 IV: 1000ml; Total: 1000ml. jl7 Outcome: 09:40 Decision to Hospitalize by Provider. rn 12:00 Admitted to ER Hold. Please see [facility] for further documentation. cm10 12:00 Condition: stable cm10 12:00 Instructed on the need for admit, 17:33 Patient left the ED. cm10 Signatures: Rory Burdick MD MD rn Leal, Jahala, RN RN jl7 Catie Arevalo RN RN lg3 Cheryl Kohler RN RN cm10 Jazmyn Lutz 2 Derrick Mcclain RN RN rg5 Corrections: (The following items were deleted from the chart) 07:39 07:15 Pain: Complains of pain in abdomen Pain currently is 10 out of 10 on a pain jl7 scale. Quality of pain is described as aching, crampy, Is continuous, jl7 07:40 06:51 Droperidol IVP 2.5 mg IVP in right forearm rg5 jl7 07:41 06:51 NS 0.9% IV 1000 ml IV at 1000 ml in right forearm rg5 jl7
[2024-02-07] MEDS ORDERED: SODIUM CHLORIDE 0.9% 10ML INJ IV PRN (11:02)
[2024-02-07 11:36] LABS: Anion Gap 11.7 mEq/L (5.0-15.0); Potassium 3.7 mEq/L (3.5-5.1)
--- NOTE | 2024-02-07 11:37 | P.HP ---
Certification for Inpatient Patient admitted to: Inpatient With expected LOS: >2 Midnights Patient will require the following post-hospital care: None Practitioner: I am a practitioner with admitting privileges, knowledge of patient current condition, hospital course, and medical plan of care. Services: Services provided to patient in accordance with Admission requirements found in Title 42 Section 412.3 of the Code of Federal Regulations <Maite Olson - Last Filed: 02/07/24 14:23> Patient History Date of Service: 02/07/24 Reason for admission: gastroparesis, metabolic acidosis 2nd ckd with azotemia, DM History of Present Illness: Mrs. Bradford is a 49 year old female with a past medical history of DM, Hypertension, Hyperlipidemia, Hypothyroidism, Anxiety, GERD and Gastroparesis who presented to the ED yesterday (02/06/24) with N/V and upper abdominal pain. She was treated and released but returned today with worsening symptoms. She denies fever but states she has not been able to hold any liquids down. She has an increased leukocytosis, CKD with acute azotemia and metabolic acidosis. With her severe dehydration, she had some hyperglycemia. She received IVF and Inapsine in the ED. She is markedly improved. Nausea has abated. We will admit her for the above, hydrate her, control her blood sugar, and improve her renal perfusion. Home medications list reviewed: Yes - Past Medical/Surgical History Has patient received pneumonia vaccine in the past: No Diabetic: Yes -: DM II -: HLD -: CKD IV with Proteinuria (Dr. Kennedy/ Dr. 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 - Family History Sister -: Diabetes Mother -: Diabetes - Social History Smoking Status: Unknown if ever smoked Alcohol use: No CD- Drugs: No Caffeine use: Yes Place of Residence: Home <Maite Olson - Last Filed: 02/07/24 14:23> Date of Service: 02/07/24 <JANETH Foss - Last Filed: 02/07/24 17:42> Allergies No Known Allergies Allergy (Verified 03/02/23 11:29) Home Medications: Atorvastatin Calcium [Lipitor*] 10 mg PO BEDTIME 03/01/23 Levothyroxine Sodium 1 tab PO DAILY 03/01/23 Sitagliptin Phosphate [Januvia] 25 mg PO DAILY 03/01/23 Ondansetron [Zofran (Odt)*] 4 mg PO Q6H PRN #20 tab 03/03/23 Sucralfate [Carafate*] 1 gm PO ACHS #120 tab 03/13/23 Aspirin 81 mg PO DAILY 02/01/24 Ergocalciferol (Vitamin D2) [Vitamin D2] 50,000 unit PO EVERY 7TH DAY 02/01/24 Gabapentin 100 mg PO DAILY PRN 02/01/24 Insulin Degludec [Tresiba] 12 units SQ DAILY 02/01/24 Latanoprost Ophth [Xalatan 0.005%*] 1 drop EACH EYE BEDTIME 02/01/24 Olmesartan Medoxomil 5 mg PO DAILY 02/01/24 Pantoprazole [Protonix Tab*] 40 mg PO DAILY 02/01/24 Sodium Bicarbonate 650 mg PO TID 02/01/24 carvediloL [Coreg*] 6.25 mg PO BIDWM 02/01/24 Sodium Zirconium Cyclosilicate [Lokelma] 10 gm PO 30 MIN BEFORE HS 30 Days #30 packet 02/02/24 Review of Systems 10-point ROS is otherwise unremarkable General: Unremarkable Eyes: Unremarkable ENT: Unremarkable Respiratory: Unremarkable Cardiovascular: Unremarkable Gastrointestinal: Nausea, Vomiting, Abdominal Pain, Constipation Genitourinary: Unremarkable Musculoskeletal: Unremarkable Integumentary: Unremarkable Neurological: Unremarkable Lymphatics: Unremarkable <Olson,Maite Richie - Last Filed: 02/07/24 14:23> Physical Examination - Physical Exam General: In no apparent distress, Oriented x3, Cooperative, Other (fatigue) HEENT: Atraumatic, Normocephalic Neck: Supple Respiratory: Normal air movement Cardiovascular: Normal pulses, Regular rate/rhythm Capillary refill: <2 Seconds Gastrointestinal: Hypoactive, Non-distended, Tenderness (left upper and lower quad) Musculoskeletal: No clubbing, No swelling Integumentary: No rashes Neurological: Normal speech, Normal tone, Normal affect Lymphatics: No axilla or inguinal lymphadenopathy External genitalia: Deferred Rectal: Deferred - Studies Laboratory Data (last 24 hrs) 02/07/24 02/07/24 06:50 06:50 WBC 20.30 H Hgb 10.9 L Hct 32.3 L Plt Count 523 H Sodium 135 L Potassium 3.6 BUN 45 H Creatinine 4.60 H Glucose 260 H Total Bilirubin 0.5 AST 21 ALT 22 Alkaline Phosphatase 88 Lipase 58 <Maite Olson - Last Filed: 02/07/24 14:23> - Studies Laboratory Data (last 24 hrs) 02/07/24 02/07/24 06:50 06:50 WBC 20.30 H Hgb 10.9 L Hct 32.3 L Plt Count 523 H Sodium 135 L Potassium 3.6 BUN 45 H Creatinine 4.60 H Glucose 260 H Total Bilirubin 0.5 AST 21 ALT 22 Alkaline Phosphatase 88 Lipase 58 <JANETH Foss - Last Filed: 02/07/24 17:42> Assessment and Plan - Plan Diabetes with gastroparesis, dehydration, and hyperglycemia Chronic kidney disease with proteinuria, azotemia Anemia of chronic disease generous IVF antiemetics pain control Chem 7 q 4h x 3 ABG or VBG Betahydroxyglutamate eval Lipase (normal) FSBS monitoring and SSI coverage VTE/GI prophylaxis Discharge Plan: Home Plan to discharge in: Greater than 2 days - Advance Directives Does patient have a Living Will: Yes Does patient have a Durable POA for Healthcare: No - Code Status/Comfort Care Code Status Assessed: Yes (Full) Critical Care: No <Maite Olson - Last Filed: 02/07/24 14:23> - Plan Presumed recurrent diabetic gastroparesis Diabetic CKD with overt proteinuria Uncontrolled type 2 diabetes Anemia of CKD <JANETH Foss - Last Filed: 02/07/24 17:42>
[2024-02-07 11:51] LABS: Thyroid Stimulating Hormone 2.92 uIU/mL (0.358-3.740)
[2024-02-07 12:34] VITALS: BMI 29.9
[2024-02-07 12:36] LABS: Arterial Blood Carboxyhemoglob 0.8 % (0-1.5); Blood Gas Oxyhemoglobin 92.6 % (94-97); Blood Gas THB 9.4 g/dl (12-18); Blood O2 Saturation 95.5 % (92-98.5)
[2024-02-07] MEDS ORDERED: INSULIN REGULAR (HUMAN) 100 UNIT/ML ONE (12:38)
[2024-02-07] MEDS: NA CHLORIDE 0.9% 1,000 ML IV SCH ×2 (12:46→21:00)
[2024-02-07] MEDS: INSULIN REGULAR (HUMAN) 100 UNIT/ML SQ SCH (12:46)
[2024-02-07 14:58] LABS: Anion Gap 9.8 mEq/L (5.0-15.0); Potassium 3.8 mEq/L (3.5-5.1)
[2024-02-07] MEDS ORDERED: D10W 125 ML IV PRN (16:24)
[2024-02-07] MEDS ORDERED: GLUCAGON 1 MG/VIAL IM PRN (16:24)
[2024-02-07] MEDS: SUCRALFATE 1 GM TABLET PO SCH (16:30)
[2024-02-07] MEDS ORDERED: HYDRALAZINE HCL 20 MG/ML VIAL ONE (16:43)
[2024-02-07] MEDS: HEPARIN 5000 UNIT/ML 1 ML VIAL SQ SCH (18:00)
[2024-02-07] MEDS: MORPHINE 2 MG/ML SYR IV PRN (21:29)
[2024-02-07] MEDS: carvediloL 6.25 MG TAB PO SCH (21:32)
[2024-02-07] MEDS: ATORVASTATIN 10 MG TAB PO SCH (21:33)
[2024-02-08] MEDS: ONDANSETRON 4 MG/2 ML VIAL IV ONE (01:26)
[2024-02-08] MEDS: METOCLOPRAMIDE 10 MG/2mL INJ IV PRN (04:56)
[2024-02-08 05:04] LABS: Absolute Lymphocytes (CBC) 2.9 K/uL (0.7-4.9); Absolute Monocytes 0.7 K/uL (0.1-1.3); Absolute Neutrophil 5.2 K/uL (1.8-8.0); Basophils % 0.4 % (0-1.3); Eosinophils % 0.5 % (0-4.4); Hemoglobin 9.3 g/dL (12.0-15.0); Lymphocytes % 32.9 % (15.3-44.8); MCH 31.5 pg (27.0-35.0); MCHC 34.3 g/dL (32.0-36.0); MCV 91.8 fL (80-100); MPV 7.7 fL (7.6-11.3); Monocytes % 8.2 % (3.3-12.3); Nucleated Red Blood Cells % 0.1 % (0-0); Platelets 365 thou/uL (152-406); RBC Red Blood Cell Count 2.94 M/uL (3.86-4.86)
[2024-02-08 05:52] LABS: Albumin 2.7 g/dL (3.4-5.0); Albumin/Globulin Ratio 0.8 (1.1-1.8); Anion Gap 12.4 mEq/L (5.0-15.0); Bilirubin Total 0.4 mg/dL (0.2-1.0); Globulin 3.5 g/dL (2.3-3.5); Magnesium 1.3 mg/dL (1.6-2.4); Phosphorus 2.8 mg/dL (2.5-4.9); Potassium 3.4 mEq/L (3.5-5.1); Protein, Total 6.2 g/dL (6.4-8.2)
[2024-02-08] MEDS: LEVOTHYROXINE SOD 0.075 MG TAB PO SCH (06:25)
[2024-02-08] MEDS: KCL 20 MEQ/100 mL IVPB 20 MEQ/100 ML BAG IV SCH (08:00)
[2024-02-08] MEDS: glipiZIDE 5 MG TAB PO SCH (08:01)
[2024-02-08] MEDS: Magnesium Sulfate 2gm IVPB 2 G/50 ML BAG IV ONE (08:01)
[2024-02-08] MEDS: PANTOPRAZOLE 40 MG INJ IVP SCH (08:01)
[2024-02-08] MEDS: INSULIN GLARGINE 100 UNIT/ML SQ SCH (08:02)
--- NOTE | 2024-02-08 10:04 | P.PN ---
Date of Service: 02/08/24 Subjective: Feeling better, less nausea, no vomiting, taking ice chips and sips of water. Mild dysuria Review of Systems 10-point ROS is otherwise unremarkable General: Unremarkable Eyes: Unremarkable ENT: Unremarkable Respiratory: Unremarkable Cardiovascular: Unremarkable Gastrointestinal: midly improved s/s Genitourinary: mild burning on end of stream Musculoskeletal: Unremarkable Integumentary: Unremarkable Neurological: Unremarkable Lymphatics: Unremarkable Vitals Reviewed Physical Examination - Physical Exam General: In no apparent distress, Oriented x3, Cooperative, Other (fatigue) HEENT: Atraumatic, Normocephalic Neck: Supple Respiratory: Normal air movement Cardiovascular: Normal pulses, Regular rate/rhythm Capillary refill: <2 Seconds Gastrointestinal: Hypoactive, Non-distended, Tenderness (left upper and lower quad), improved over 02/07/24, + continued cramps Musculoskeletal: No clubbing, No swelling Integumentary: No rashes Neurological: Normal speech, Normal tone, Normal affect Lymphatics: No axilla or inguinal lymphadenopathy External genitalia: Deferred Rectal: Deferred Assessment and Plan - Plan Diabetes with gastroparesis, dehydration, and hyperglycemia Chronic kidney disease with proteinuria, azotemia Anemia of chronic disease generous IVF antiemetics, will start clear liquids this morning: small amounts frequently - miscellaneous voices understanding. Will consult dietitian pain control Chem 7 q 4h x 3 -improved. Creatinine from 4.24-3.85 overnight ABG or VBG -within normal Betahydroxyglutamate eval -mildly elevated Lipase (normal) FSBS monitoring and SSI coverage, better control but hemoglobin A1c 7.9 VTE/GI prophylaxis Discharge Plan: Home Plan to discharge in: Greater than 2 days - Advance Directives Does patient have a Living Will: Yes Does patient have a Durable POA for Healthcare: No - Code Status/Comfort Care Code Status Assessed: Yes (Full) Critical Care: No
[2024-02-08] MEDS: Meropenem 1,000 MG in NA CHLORIDE 0.9% 100 ML IV SCH (13:10)
[2024-02-08] MEDS: ONDANSETRON 4 MG/2 ML VIAL IV PRN (23:04)
[2024-02-09 01:46] VITALS: O2SAT 98
[2024-02-09 04:55] LABS: Anion Gap 10.4 mEq/L (5.0-15.0); Magnesium 1.8 mg/dL (1.6-2.4); Potassium 3.4 mEq/L (3.5-5.1)
[2024-02-09] MEDS: MAGNESIUM SULFATE 1 gm IVPB 1 GM/100 ML BAG IV ONE (05:54)
[2024-02-09] MEDS: CEFTRIAXONE 1,000 MG in NA CHLORIDE 0.9% 50 ML IVPB SCH (07:54)
[2024-02-09] MEDS: POTASSIUM CL SA 10 MEQ TAB PO ONE (07:54)
--- NOTE | 2024-02-09 11:36 | P.DS ---
Admission Date: 02/07/24 Discharge Date: 02/09/24 Reason for Admission: gastroparesis, metabolic acidosis 2nd ckd with azotemia, DM Brief History of Present Illness: Mrs. Bradford is a 49 year old female with a past medical history of DM, Hypertension, Hyperlipidemia, Hypothyroidism, Anxiety, GERD and Gastroparesis who presented to the ED yesterday (02/06/24) with N/V and upper abdominal pain. She was treated and released but returned today with worsening symptoms. She denies fever but states she has not been able to hold any liquids down. She has an increased leukocytosis, CKD with acute azotemia and metabolic acidosis. With her severe dehydration, she had some hyperglycemia. She received IVF and Inapsine in the ED. She is markedly improved. Nausea has abated. We will admit her for the above, hydrate her, control her blood sugar, and improve her renal perfusion. Hospital Course: Ms. Bradford continues to improve. She appears normovolemic. She is tolerating clear liquids and we will advance her diet. She denies nausea or vomiting. Creatinine continues to improve toward baseline. She was found to have a urinary tract infection, with E. coli, which is sensitive to most all antibiotics. She will be discharged on Augmentin to promote GI transit and clearance of UTI. Blood sugars have continued to improve, she states she will work on optimizing her blood sugar control. She needs to follow-up with her PCP and GI in 1 to 2 weeks. <Maite Olson - Last Filed: 02/09/24 12:48> Admission Date: 02/07/24 Discharge Date: 02/09/24 Hospital Course: Discharge diagnosis Presumed diabetic gastroparesis Complicated uncontrolled type 2 diabetes with ketosis, no DKA Stable diabetic CKD stage III with overt proteinuria Diabetic peripheral polyneuropathy <JANETH Foss - Last Filed: 02/09/24 17:28> Disposition: ROUTINE DISCHARGE Discharge Condition: GOOD Vital Signs/Physical Exam: Temp Pulse Resp BP Pulse Ox 97.6 F 97 H 16 198/114 H 99 02/09/24 08:00 02/09/24 08:00 02/09/24 08:00 02/09/24 08:00 02/09/24 08:00 General: Alert, In no apparent distress, Oriented x3 HEENT: Atraumatic, Normocephalic Neck: Supple Respiratory: Clear to auscultation bilaterally, Normal air movement Cardiovascular: No edema, Regular rate/rhythm, Normal S1 S2 Capillary refill: <2 Seconds Gastrointestinal: Soft and benign Musculoskeletal: No clubbing, No swelling Integumentary: No rashes, No breakdown Neurological: Normal speech, Normal tone, Normal affect Lymphatics: No axilla or inguinal lymphadenopathy External genitalia: Deferred Rectal: Deferred Laboratory Data at Discharge: WBC 9.00 thou/uL (4.3-10.9) 02/08/24 04:27 Hgb 9.3 g/dL (12.0-15.0) L D 02/08/24 04:27 Hct 27.0 % (36.0-45.0) L 02/08/24 04:27 Plt Count 365 thou/uL (152-406) D 02/08/24 04:27 Sodium 140 mEq/L (136-145) 02/09/24 04:30 Potassium 3.4 mEq/L (3.5-5.1) L 02/09/24 04:30 BUN 27 mg/dL (7-18) H 02/09/24 04:30 Creatinine 3.12 mg/dL (0.55-1.02) H 02/09/24 04:30 Glucose 89 mg/dL (74-106) 02/09/24 04:30 Phosphorus 2.8 mg/dL (2.5-4.9) 02/08/24 04:27 Magnesium 1.8 mg/dL (1.6-2.4) 02/09/24 04:30 Total Bilirubin 0.4 mg/dL (0.2-1.0) 02/08/24 04:27 AST 22 U/L (15-37) 02/08/24 04:27 ALT 19 U/L (13-56) 02/08/24 04:27 Alkaline Phosphatase 68 U/L (45-117) D 02/08/24 04:27 Triglycerides 308 mg/dL (<150) H 02/08/24 04:27 Cholesterol 148 mg/dL (<200) 02/08/24 04:27 HDL Cholesterol 36 mg/dL (40-60) L 02/08/24 04:27 Cholesterol/HDL Ratio 4.11 02/08/24 04:27 Lipase 58 U/L (13-75) 02/07/24 06:50 <Olson,Maite Richie - Last Filed: 02/09/24 12:48> Vital Signs/Physical Exam: Temp Pulse Resp BP Pulse Ox 97.4 F 72 16 142/70 H 98 02/09/24 12:00 02/09/24 12:00 02/09/24 12:00 02/09/24 12:00 02/09/24 12:00 Laboratory Data at Discharge: WBC 9.00 thou/uL (4.3-10.9) 02/08/24 04:27 Hgb 9.3 g/dL (12.0-15.0) L D 02/08/24 04:27 Hct 27.0 % (36.0-45.0) L 02/08/24 04:27 Plt Count 365 thou/uL (152-406) D 02/08/24 04:27 Sodium 140 mEq/L (136-145) 02/09/24 04:30 Potassium 3.4 mEq/L (3.5-5.1) L 02/09/24 04:30 BUN 27 mg/dL (7-18) H 02/09/24 04:30 Creatinine 3.12 mg/dL (0.55-1.02) H 02/09/24 04:30 Glucose 89 mg/dL (74-106) 02/09/24 04:30 Phosphorus 2.8 mg/dL (2.5-4.9) 02/08/24 04:27 Magnesium 1.8 mg/dL (1.6-2.4) 02/09/24 04:30 Total Bilirubin 0.4 mg/dL (0.2-1.0) 02/08/24 04:27 AST 22 U/L (15-37) 02/08/24 04:27 ALT 19 U/L (13-56) 02/08/24 04:27 Alkaline Phosphatase 68 U/L (45-117) D 02/08/24 04:27 Triglycerides 308 mg/dL (<150) H 02/08/24 04:27 Cholesterol 148 mg/dL (<200) 02/08/24 04:27 HDL Cholesterol 36 mg/dL (40-60) L 02/08/24 04:27 Cholesterol/HDL Ratio 4.11 02/08/24 04:27 Lipase 58 U/L (13-75) 02/07/24 06:50 <JANETH Foss Ran - Last Filed: 02/09/24 17:28> Diet: Small Activity: Ad rachael <Maite Olson Richie - Last Filed: 02/09/24 12:48> <JANETH Foss - Last Filed: 02/09/24 17:28> Home Medications: Atorvastatin Calcium [Lipitor*] 10 mg PO BEDTIME 03/01/23 Levothyroxine Sodium 1 tab PO DAILY 03/01/23 Sitagliptin Phosphate [Januvia] 25 mg PO DAILY 03/01/23 Sucralfate [Carafate*] 1 gm PO ACHS #120 tab 03/13/23 Aspirin 81 mg PO DAILY 02/01/24 Ergocalciferol (Vitamin D2) [Vitamin D2] 50,000 unit PO EVERY 7TH DAY 02/01/24 Gabapentin 100 mg PO DAILY PRN 02/01/24 Insulin Degludec [Tresiba] 12 units SQ DAILY 02/01/24 Latanoprost Ophth [Xalatan 0.005%*] 1 drop EACH EYE BEDTIME 02/01/24 Olmesartan Medoxomil 5 mg PO DAILY 02/01/24 Pantoprazole [Protonix Tab*] 40 mg PO DAILY 02/01/24 Sodium Bicarbonate 650 mg PO TID 02/01/24 carvediloL [Coreg*] 6.25 mg PO BIDWM 02/01/24 Sodium Zirconium Cyclosilicate [Lokelma] 10 gm PO 30 MIN BEFORE HS 30 Days #30 packet 02/02/24 Amox/Clavulanate [Augmentin 875-125 Tab] 875 mg PO BID #14 tab 02/09/24 Metoclopramide [Reglan] 5 mg PO TID #60 tab 02/09/24 Sucralfate [Carafate*] 1 gm PO ACHS #90 tab 02/09/24 New Medications: Amox/Clavulanate [Augmentin 875-125 Tab] 875 mg PO BID #14 tab Sucralfate [Carafate*] 1 gm PO ACHS #90 tab Metoclopramide [Reglan] 5 mg PO TID #60 tab Physician Discharge Instructions: PROBLEM: Gastroparesis, DKA GOAL: Clear understanding of disease process INSTRUCTIONS: Return to ER fro any emergency Follow up as directed Call 2nd floor nurse's station for any questions about your stay [phone] Take medications as prescribed She needs to follow-up with her PCP and GI in 1 to 2 weeks. Diet: Small, Diabetic Activity: Ad rachael Mrs. Bradford is a 49 year old female with a past medical history of DM, Hypertension, Hyperlipidemia, Hypothyroidism, Anxiety, GERD and Gastroparesis who presented to the ED yesterday (02/06/24) with N/V and upper abdominal pain. She was treated and released but returned today with worsening symptoms. She denies fever but states she has not been able to hold any liquids down. She has an increased leukocytosis, CKD with acute azotemia and metabolic acidosis. With her severe dehydration, she had some hyperglycemia. She received IVF and Inapsine in the ED. She is markedly improved. Nausea has abated. We will admit her for the above, hydrate her, control her blood sugar, and improve her renal perfusion. Hospital Course: Ms. Bradford continues to improve. She appears normovolemic. She is tolerating clear liquids and we will advance her diet. She denies nausea or vomiting. Creatinine continues to improve toward baseline. She was found to have a urinary tract infection, with E. coli, which is sensitive to most all antib iotics. She will be discharged on Augmentin to promote GI transit and clearance of UTI. Blood sugars have continued to improve, she states she will work on optimizing her blood sugar control. Followup: Adriano Agee DO [Primary Care Provider] - Matthew Red MD [ASSOCIATE-ACTIVE - CAN ADMIT] -
[2024-02-09 12:03] VITALS: BP 142/70; TEMP 97.4
[2024-02-09] MEDS ORDERED: INSULIN GLARGINE 100 UNIT/ML SQ SCH (14:00)
[2024-02-10] MEDS ORDERED: PANTOPRAZOLE 40 MG INJ IVP SCH (06:00)
== END 2024-02-09 14:20 | disposition home or self-care (01) | DRG 74 ==
LOC: ER 06:26 → ERHOLD 10:57 → 2ND 17:12 → UNDODISIN 02-08 18:26
PROVIDERS: ADMIT Internal Medicine; ATTEND Internal Medicine
PROC: 4A033R1 Measurement of Arterial Saturation, Peripheral, Percutaneous Approach (ICD-10-PCS; principal; 2024-02-07)
DX: E11.43 Type 2 diabetes mellitus with diabetic autonomic (poly)neuropathy (principal); E87.20 Acidosis, unspecified; N39.0 Urinary tract infection, site not specified; K31.84 Gastroparesis; E11.10 Type 2 diabetes mellitus with ketoacidosis without coma; I12.9 Hypertensive chronic kidney disease with stage 1 through stage 4 chronic kidney disease, or unspecified chronic kidney disease; N18.30 Chronic kidney disease, stage 3 unspecified; E11.22 Type 2 diabetes mellitus with diabetic chronic kidney disease; E11.42 Type 2 diabetes mellitus with diabetic polyneuropathy; E11.65 Type 2 diabetes mellitus with hyperglycemia; D63.1 Anemia in chronic kidney disease; E03.9 Hypothyroidism, unspecified; K59.00 Constipation, unspecified; E86.0 Dehydration; E78.00 Pure hypercholesterolemia, unspecified; K21.9 Gastro-esophageal reflux disease without esophagitis; B96.20 Unspecified Escherichia coli [E. coli] as the cause of diseases classified elsewhere; Z88.5 Allergy status to narcotic agent; Z79.4 Long term (current) use of insulin; Z79.82 Long term (current) use of aspirin; Z79.02 Long term (current) use of antithrombotics/antiplatelets; Z90.49 Acquired absence of other specified parts of digestive tract; Z79.890 Hormone replacement therapy; Z79.899 Other long term (current) drug therapy
CPT/HCPCS: 36415; 36600; 80048; 80053; 80061; 81001; 82010; 82805; 82947; 83036; 83690; 83735; 84100; 84439; 84443; 85025; 87077; 87086; 87088; 87186; 96361; 96372; 96374; 96375; 99285; J0360; J0500; J0696; J1644; J1790; J2185; J2270; J2405; J2470; J2765; J3475; J3480; J7030

== ENCOUNTER 2024-02-10 13:26 | Emergency (ER) | payer OTHER ==
--- OUTSIDE RECORDS SUMMARY | 2024-02-10 13:34 | XMS REPORT | Continuity of Care Document ---
Author Name Unknown Address [address] [facility] [address] [place] [address] [facility] [address] [facility] [address] [place] [address] Care Team Providers Care Manager Assurance Name Role Phone DAX HAMALLORIEADELASudha Primary Care Physician UnaMATEO Delgado Attending Clinician Unavailable IVIS HOOVER Attending Clinician Unavailable GIDEON RODRIGUEZ Attending Clinician Unavailable ADRIANO AGEE Attending Clinician Unavailable LAB90 Attending Clinician Unavailable [facility] Attending Clinician UnavailGEREMIAS Wood Attending Clinician UnavailCARISSA Albarran Attending Clinician Unava ilable 1, [facility] Attending Clinic mann Unavailable PRINCE CHEEK Attending Clinician Unavailable DEANNE KAUR Attending Clinician Unavail able NIRALI FLORES Attending Clinician Unavailabl e SIB311 Attending Clinician Unavailable KESHAWN SCHNEIDER Attending Clinician Unavailable LAB47 Attending Clinician Unavailable KESHAWN JONES Attending Clinician Unavailable TOMOGRAPHY, [facility] Attending Cl inician Unavailable KEMAR RODRIGUEZ Attending Clinician Unavailab ESTHER Marsh Attending Clinician Unavailable KEATON PATIÑO Attending Clinician Unavailable Keaton Patiño MD Attending Clinician + [phone] MD ELIJAH Attending Clinician Unavailab TANGELA Mendoza Attending Clinician Unavailab le ONLY, [facility] HEM/ONC NURSE Attending Clinician Lila vailable \\R\\RSOH_Magy Attending Clinician Unavailable LIZETH FLORES Attending Clinician Unavailable ERIC DURBIN Attending Clinician Unavailab SEBASTIAN Rose Attending Clinician Unava ilable ANDREI MAR Attending Clinician Unavailable TOMOGRAPHY, [facility] COHERENCE Attending Cl inician [...] Unavailab ROSETTA Hernández Attending Clinician Unavailable Toni [facility], Malini Cates Attending Clinician + [phone] Doctor Unassigned, [place] Attending Clinician U navailable UNKNOWN, ATTENDING Attending Clinician Unavailab LEXA Watson Attending Clinician Unavailable Lexa Goff DO Attending Clinician [phone] PATRIA LEVY Attending Clinician Unavailab Santos Colón Attending Clinician Unavailable KEATON PATIÑO Admitting Clinician Unavailable \\R\\RSOH_Magy Admitting Clinician Unavailable LEXA GOFF Admitting Clinician Unavailable Santos MOISE Admitting Clinician Unavailable Payers Payer Name Policy Type Policy Number Effective Date Expirati on Date Source [employer] MP [facility] 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 9 [id number] 2023 00:00:00 [employer] 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 [id number] 2023 00:00:00 MELISSA GRANT IPA - [employer]ET[employer] (HMO) [id number] 2022 00:00:00 Problems Condition Name Condition Details [...] 27.0-27.9, adult Disease Active 08-20 00:00: 00 [facility] Screening examinatio n for STD (sexually transmitte d disease) Screening examinatio n for STD (sexually transmitte d disease) Disease Active 08-20 00:00: 00 [facility] Elevated blood pressure reading without diagnosis of hypertensi on Elevated blood pressure reading without diagnosis of hypertensi on Disease Active 08-20 00:00: 00 [facility] BMI 27.0-27.9, adult BMI 27.0-27.9, adult Disease Active 08-20 00:00: 00 [facility] Pain pelvic Pain pelvic Disease Active 08-20 00:00: 00 [facility] Allergies, Adverse Reactions, Alerts Allergy Name [...] NO KNOWN ALLERGIE S Drug Class Active [facility] Social History Social Habit Start Date Stop Date Quantity Comments Source ASSERTION Not Melisas Grant - External History of Occupation Melissa Grant - External Gender identity Trisha Grant - External [facility] Tobacco use and exposure 2023-05-27 00:00:00 2023-05-27 00:00:00 Smokeless tobacco non-user Melissa Grant - External Alcohol intake 2023-04-16 00:00:00 2023-04-16 00:00:00 Ex-drinker (finding) Melissa Grant - External History of Social function 2023-02-24 00:00:00 2023-02-24 00:00:00 [facility] Alcoholic beverage intake 2023-02-24 00:00:00 2023-02-24 00:00:00 .14 /d [facility] Sex 2023-01-20 16:19:33 2023-01-20 16:19:33 Female (finding) Melissa Grant - External History of tobacco use 2022-06-08 00:00:00 Passive smoker Melissa Grant - External Education 2022-04-03 00:00:00 2022-04-03 00:00:00 8 Melissa Grant - External Exposure to SARS-CoV-2 (event) 2021-09-19 00:00:00 2021-09-29 13:11:00 Not sure [facility] History SDOH Alcohol Frequency 2019-08-21 00:00:00 2019-08-21 00:00:00 2 [facility] History SDOH Alcohol Std Drinks 2019-08-21 00:00:00 2019-08-21 00:00:00 1 [facility] History SDOH Alcohol Binge 2019-08-21 00:00:00 2019-08-21 00:00:00 1 [facility] Alcohol Comment 2019-08-21 00:00:00 2019-08-21 00:00:00 social [facility] Sex assigned at 1975 00:00:00 1975 00:00:00 Melissa Ugalde Smoking Status Start Date Stop Date Source Current Some Day Smoker Panoramic - unspecif ied Ex-smoker 2023-05-27 00:00:00 2023-05-27 00:00:00 Melissa Grant - External Smokes tobacco daily 2022-04-03 00:00:00 Melissa Griffin External Never smoked tobacco [facility] Medications Ordered Medication Name Filled Medication Name [...] Solution Pen-injecto r 2023-02 00:00: 00 Yes [id number] 9109 10U QD Inject 10 units into the skin daily. Melissa cates Pantoprazol e Sodium 40 MG oral Tablet Delayed Response 2023-02 00:00: 00 Yes [id number] 40mg QD Take 1 tablet (40 mg [...] 2023-02 00:00: 00 01-04 00:00 :00 No [id number] 15U QD Inject 15 units into the skin daily (with breakfast) . Melissa cates Insulin Pen Needle (Pen [place]) 33G X 4 MM does not apply Misc 2023-02 0 00:00: 00 Yes [id number] 1{each} QD Inject 1 each into the skin daily To use with insulin pen. Melissa cates Insulin Glargine (Basaglar KwikPen) 100 UNIT/ML subcutaneou s Solution Pen-injecto r 2023-0230 00:00: 00 Yes [id number] 10U QD Inject 10 units into the skin daily (with breakfast) . Melissa cates Continuous Glucose Sensor (Dexcom G6 Sensor) does not apply Misc 2023-02 00:00: 00 Yes [id number] 9109 Check glucose continuous ly. Melissa cates Atorvastati n Calcium (Lipitor) 10 MG oral Tablet 2023-02 00:00: 00 Yes [id number] 3 10mg QD Take 1 tablet (10 mg total) by mouth nightly. Melissa cates Continuous Glucose Transmitter (Dexcom G6 Transmitter ) does not apply Misc 2023-02 00:00: 00 Yes [id number] 9109 Check glucose continuous ly. Melissa cates Continuous Glucose Internal Affairs Investigator (Dexcom G6 Internal Affairs Investigator) does not apply Device 2023-02 00:00: 00 Yes [id number] 9109 Check glucose continuous ly. Melissa cates Sucralfate (Carafate) 1 g oral Tablet 2023-02 00:00: 00 01-04 00:00 :00 No [id number] 1g Q.25D Take 1 tablet (1 g total) by mouth 4 times daily. Meilssa cates Pantoprazol e Sodium 40 MG oral Tablet Delayed Response 2023-02 00:00: 00 01-04 00:00 :00 No [id number] 40mg QD Take 1 tablet (40 mg total) by mouth daily. Melissa cates Sitagliptin Phosphate (Januvia) 25 MG oral Tablet 2023-02 00:00: 00 Yes [id number] 3 25mg QD Take 1 tablet (25 mg total) by mouth daily. Melissa cates Levothyroxi ne Sodium 75 MCG oral Tablet 2023-02 00:00: 00 Yes [id number] 75ug QD take 1 tablet by mouth [...] Solution Pen-injecto r 10-26 00:00: 00 Yes [id number] .75mg Q1W Inject 0.75 mg into the skin once a week. Melissa Griffin Externa l Latanoprost 0.005 % ophthalmic Solution 10-25 00:00: 00 Yes [id number] 1[drp] QD Place 1 drop into both [...] (81 mg total) by mouth daily. Melissa Flannery l Trulicity 0.75 MG/0.5ML subcutaneou s Solution Pen-injecto r 09-30 00:00: 00 Yes [id number] .75mg Q1W Inject 0.75 mg into the skin once a week. Melissa Uribea l Gabapentin 100 MG oral Capsule 09-30 00:00: 00 Yes [id number] 100mg Q.5D Take 1 capsule (100 mg total) by mouth 2 times daily as needed (pain). Indication s: Disease of the Peripheral Nerves Melissa Flannery l Olmesartan Medoxomil 5 MG oral Tablet 09-30 00:00: 00 Yes [id number] 1{tbl} QD Take 1 tablet by mouth daily. Melissa Uribea l Bilateral: Bevacizumab (AVASTIN) [100 mg/4 mL], 2.5mg - Physician Administere d ([id number]) 09-26 10:12: 18 No [id number] 101 2.5mg 2.5 mg, Physician Administer ed, ONCE, 1 dose, On Wed09/27/23 at 1015 Melissa cates Sodium Bicarbonate 650 MG oral Tablet 8 00:00: 00 Yes [id number] 650mg Q.[id number] 3D Take 1 tablet (650 mg total) [...] 09-13 00:00: 00 12-07 00:00 :00 No [id number] 10mg Take 1 tablet (10 mg total) [...] 08-09 00:00: 00 12-07 00:00 :00 No [id number] 20mg QD Take 1 capsule (20 mg total) by mouth daily. Melissa cates Sitagliptin Phosphate (Januvia) 25 MG oral Tablet 08-09 00:00: 00 09-30 00:00 :00 No [id number] 25mg QD Take 1 tablet (25 mg total) by mouth daily. Melissa cates Gabapentin 100 MG oral Capsule - 00:00: 00 09-30 00:00 :00 No [id number] [...] 07-27 20:30: 00 07-27 20:20 :00 No [id number] 101 2.5mg 2.5 mg, Physician Administer ed, ONCE, 1 dose, On Wed07/28/23 at 1530 Melissa cates Carvedilol (Coreg) 6.25 MG oral Tablet 07-27 14:41: 18 Yes 6.25mg Take 1 tablet (6.25 mg total) by mouth in the morning and 1 tablet (6.25 mg total) in the evening. Take with meals. Melissa cates Levothyroxi ne Sodium 75 MCG oral Tablet 05-27 00:00: 00 Yes [id number] 75ug QD Take 1 tablet (75 mcg total) by mouth daily. Melissa catse Ergocalcife rol 1.25 MG (52395 UT) oral Capsule 18 00:00: 00 04-28 04:59 :00 No [id number] 39484O Q1W Take 1 capsule (50,000 units total) [...] 04-12 00:00: 00 10-25 00:00 :00 No [id number] 1[drp] QD Place 1 drop into both [...] Tablet 00:00: 00 08-09 00:00 :00 No [id number] 25mg QD Take 1 tablet (25 mg total) by mouth daily. Melissa cates Metoclopram torrey HCl (Reglan) 5 MG oral Tablet 00:00: 00 05-26 00:00 :00 No [id number] 5mg Q.5D Take 1 tablet (5 mg total) by mouth 2 times daily as needed (nausea). Melissa cates Dicyclomine HCl 20 MG oral Tablet 00:00: 00 05-26 00:00 :00 No [id number] 10mg QD Take 0.5 tablets (10 mg [...] On Wed02/24/23 at 0045, FRANK [facility] morpHINE (4 mg/mL) injection 4 mg 02-24 06:45: 00 02-24 06:45 :00 No 4mg 4 mg, Slow IV Push, ONCE, 1 dose, On Wed02/24/23 at 0045, STAT [facility] ondansetron (ZOFRAN (PF)) injection 4 mg 02-24 06:00: 00 02-24 05:53 :00 No 4mg 4 mg, Slow IV Push, ONCE, 1 dose, On Wed02/24/23 at 0000, FRANK [facility] NaCl 0.9% (NS) IV infusion 1,000 mL 02-24 05:15: 00 Yes 1000mL at 999 mL/hr, Intravenou s, CONTINUOUS , Starting on Wed02/23/23 at 2315, Until Discontinu ed, Routine [facility] ketorolac (TORADOL) injection 30 mg 02-24 05:15: 00 02-24 04:27 :00 No 30mg 30 mg, Slow IV Push, ONCE, 1 dose, On Wed02/23/23 at 2315, Routine [facility] ondansetron (ZOFRAN (PF)) injection 4 mg 02-24 04:15: 00 02-24 04:14 :00 No 4mg 4 mg, Slow IV Push, ONCE, 1 dose, On Wed02/23/23 at 2215, FRANK [facility] maalox:diph enhydrAMINE :lidocaine 2 % viscous 1:1:1 ([facility]) oral suspension 15 mL 02-24 04:15: 00 02-24 04:13 :00 No 15mL 15 mL, Oral, ONCE, 1 dose, On Wed02/23/23 at 2215, Routine [facility] dicyclomine 20 mg tablet 02-24 00:00: 00 Yes [id number] 20mg Take 1 tablet by mouth every 6 (six) hours as needed for Abdominal pain. [facility] proMETHazin e 25 mg tablet 02-24 00:00: 00 Yes [id number] 25mg Take 1 tablet by mouth every 6 (six) hours as needed for Nausea and Vomiting (N/V). [facility] traMADoL (ULTRAM) 50 mg tablet 02-24 00:00: 00 Yes [id number] 50mg Take 1 tablet by mouth every 6 (six) hours as needed for Pain (scale 7-10). Indication s: acute pain [facility] Ibuprofen (MOTRIN) 400 MG oral Tablet 02-16 00:00: 00 00:00 :00 No [id number] 400mg Q.25D Take 1 tablet (400 mg total) by mouth every 6 hours as needed. Melissa cates HYDROcodone -Acetaminop hen (Clemons) 5-325 MG oral Tablet 02-16 00:00: 00 00:00 :00 No [id number] 1{tbl} Q.25D Take 1 tablet by mouth every 6 hours as needed for pain. Melissa cates Benzonatate (Tessalon Perles) 100 MG oral Capsule 2022-02 00:00: 00 02-16 00:00 :00 No [id number] 100mg Q.[id number] 3D Take 1 capsule (100 mg total) by mouth 3 times daily as needed for cough. Melissa cates Azithromyci n 250 MG oral Tablet 2022-02 00:00: 00 01-04 05:59 :00 No [id number] Take 2 tablets by mouth on day 1 then 1 tablet by mouth daily for 4 days thereafter .. Melissa cates Olmesartan Medoxomil 5 MG oral Tablet 2022-02 00:00: 00 09-30 00:00 :00 No 1{tbl} QD Take 1 tablet by mouth daily. Melissa cates Ferrous Sulfate (Iron) 325 (65 Fe) MG oral Tablet 2022-02 00:00: 00 05-26 00:00 :00 No [id number] 325mg Take 1 tablet (325 mg total) by mouth daily (with breakfast) . Melissa cates Atorvastati lesa Calcium (Lipitor) 10 MG oral Tablet 2022-02 00:00: 00 12-07 00:00 :00 No [id number] 3 10mg QD Take 1 tablet (10 mg total) by mouth nightly. Melissa cates Duloxetine HCl [address] Particles 2022-02 0-30 00:00: 00 02-16 00:00 :00 No [id number] 20mg Take 1 capsule (20 mg total) by mouth daily. Melissa cates glipiZIDE 10 MG oral Tablet 2022-02- 00:00: 00 Yes [id number] 10mg Take 1 tablet (10 mg total) by mouth in the morning and 1 tablet (10 mg total) in the evening. Take before meals. Melissa cates Esomeprazol e Magnesium (NexIUM) 40 MG oral Delayed Release Capsule 2022-02 0- 00:00: 00 00:00 :00 No [id number] 40mg Take 1 capsule (40 mg total) by mouth every morning (before breakfast) . Melissa cates Carvedilol (Coreg) 6.25 MG oral Tablet 2022-02 0- 00:00: 00 02-16 00:00 :00 No [id number] 6.25mg Take 1 tablet (6.25 mg total) by mouth in the morning and 1 tablet (6.25 mg total) in the evening. Take with meals. Melissa cates Gabapentin 100 MG oral Capsule 2022-02 0-04 00:00: 11-11 00:00 :00 No [id number] 100mg Take 1 capsule (100 mg total) by mouth nightly. Melissa cates Duloxetine HCl [address] Particles 2022-02 0-04 00:00: 00 11-11 00:00 :00 No [id number] 20mg Take 1 capsule (20 mg total) by mouth daily. Melissa cates Gabapentin 100 MG oral Capsule 9-25 00:00: 00 Yes [id number] 100mg Q.5D Take 1 capsule (100 mg total) by mouth 2 times daily as needed (pain). Melissa cates Bevacizumab (AVASTIN) 100 mg/4 mL - Physician Kalaalexa bedolla ([id number]) 10-30 19:30: 00 10-30 19:19 :00 No [id number] 101 1.25mg Melissa cates Latanoprost 0.005 % ophthalmic Solution 10-13 00:00: 00 04-12 00:00 :00 No [id number] 1[drp] Place 1 drop into both eyes nightly. Melissa cates Atorvastati n Calcium (Lipitor) 10 MG oral Tablet 09-28 00:00: 00 Yes [id number] 3 10mg Take 1 tablet (10 mg total) by mouth nightly. Melissa cates Latanoprost 0.005 % ophthalmic Solution 09-28 00:00: 00 10-13 00:00 :00 No [id number] 1[drp] Place 1 drop into both eyes [...] MCG oral Tablet 09-02 00:00: 00 Yes [id number] 75ug Take 1 tablet (75 mcg total) by mouth daily Melissa cates Sitagliptin Phosphate (Januvia) 50 MG oral Tablet 09-02 00:00: 00 00:00 :00 No [id number] 50mg Take 1 tablet (50 mg total) by mouth daily Melissa cates Lansoprazol e 30 MG oral Delayed Release Capsule 09-02 00:00: 00 11-11 00:00 :00 No [id number] 30mg Take 1 capsule (30 mg total) by mouth daily Melissa cates Sitagliptin Phosphate (Januvia) 50 MG oral Tablet 08-27 00:00: 00 Yes [id number] 50mg Take 1 tablet (50 mg total) by mouth daily Melissa cates Lansoprazol e 30 MG oral Delayed Release Capsule 08-27 00:00: 00 Yes [id number] 30mg Take 1 capsule (30 mg total) by mouth daily Melissa cates Latanoprost 0.005 % ophthalmic Solution 07-28 00:00: 00 Yes [id number] 1[drp] Place 1 drop into both eyes nightly Melissa cates glipiZIDE 10 MG oral Tablet 07-28 00:00: 00 Yes [id number] 10mg Take 1 tablet (10 mg total) by mouth in the morning and 1 tablet (10 mg total) in the evening. Take before meals. Melissa cates Sitagliptin Phosphate (Januvia) 50 MG oral Tablet 07-28 00:00: 00 08-27 00:00 :00 No [id number] 50mg Take 1 tablet (50 mg total) by mouth daily Melissa cates Lansoprazol e 30 MG oral Delayed Release Capsule 07-28 00:00: 00 08-27 00:00 :00 No [id number] 30mg Take 1 capsule (30 mg total) by mouth daily Melissa cates Atorvastati n Calcium (Lipitor) 10 MG oral Tablet 07-10 00:00: 00 Yes [id number] 3 10mg Take 1 tablet (10 mg total) by mouth nightly Melissa cates Bilateral: Bevacizumab (AVASTIN) [100 mg/4 mL], 2.5mg - Physician Administere d ([id number]) 06-29 19:30: 00 06-29 19:28 :00 No [id number] 101 2.5mg Melissa cates Pantoprazol e Sodium [...] % ophthalmic Solution 06-24 00:00: 00 Yes [id number] 1[drp] Place 1 drop into both eyes nightly Melissa cates Pantoprazol e Sodium 40 MG oral Tablet Delayed Response 06-24 00:00: 00 Yes [id number] 40mg Take 1 tablet (40 mg total) by mouth daily Melissa cates Levothyroxi ne Sodium 75 MCG oral Tablet 06-24 00:00: 00 Yes [id number] 75ug Take 1 tablet (75 mcg total) by mouth daily Melissa cates Iron Sucrose (VENOFER) 300 mg in sodium chloride 0.9 % 250 mL infusion 06-22 17:15: 00 06-22 18:20 :00 No [id number] 300mg 300 mg, at 166.7 mL/hr, Administer [...] 06-19 00:00: 00 11-05 00:00 :00 No [id number] Instructio ns provided to patient. Follow instructio ns provided by provider. Melissa Uribea darryn Latanoprost 0.005 % ophthalmic Solution 06-17 00:00: 00 Yes [id number] 1[drp] Place 1 drop into both eyes nightly Melissa Uribea darryn Iron Sucrose (VENOFER) 300 mg in sodium chloride 0.9 % 250 mL infusion 06-09 17:15: 00 06-09 18:50 :00 No [id number] 300mg 300 mg, at 166.7 mL/hr, Administer over 90 Minutes, intravenou s, ONCE, On Wed06/09/22 at 1215, For 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 &nbs p;May repeat treatment if clinically indicated< br> Melissa Uribea darryn Multiple Vitamins-Ir on (MULTIVITAM IN PLUS IRON ADULT OR) 05-12 10:53: 52 Yes 1{tbl} Take 1 tablet by mouth daily Melissa Uribea darryn Latanoprost 0.005 % ophthalmic Solution 05-12 00:00: 00 Yes [id number] 1[drp] Place 1 drop into both eyes nightly Melissa cates Multiple Vitamins-Ir on (MULTIVITAM IN PLUS IRON ADULT OR) 05-11 14:21: 53 Yes 1{tbl} Take 1 tablet by mouth daily Melissa cates Januvia 50 MG oral Tablet 05-10 00:00: 00 Yes [id number] TAKE 1 TABLET BY MOUTH EVERY DAY Melissa cates Multiple Vitamins-Ir on (MULTIVITAM IN PLUS IRON ADULT OR) 05-08 10:04: 06 Yes 1{tbl} Take 1 tablet by mouth daily Melissa cates Sitagliptin Phosphate 50 MG oral Tablet 05-08 00:00: 00 Yes [id number] 50mg Take 1 tablet (50 mg total) by mouth daily Melissa cates glipiZIDE 10 MG oral Tablet 05-08 00:00: 00 Yes [id number] 10mg Take 1 tablet (10 mg total) by mouth in the morning and 1 tablet (10 mg total) in the evening. Take before meals. Melissa cates Rosuvastati n Calcium 40 MG oral Tablet 05-08 00:00: 00 06-24 00:00 :00 No [id number] 3 40mg Take 1 tablet (40 mg total) by mouth at bedtime Melissa cates Levothyroxi ne Sodium 75 MCG oral Tablet 05-05 00:00: 00 Yes [id number] 75ug Take 1 tablet (75 mcg total) [...] MG oral Tablet 05-01 00:00: 00 Yes [id number] 3 10mg Take 1 tablet (10 mg total) by mouth daily (before a meal) Melissa cates Sitagliptin Phosphate 100 MG oral Tablet 05-01 00:00: 00 Yes [id number] 3 100mg Take 1 tablet (100 mg total) by mouth daily Melissa cates Furosemide (LASIX) 20 MG oral Tablet 05-01 00:00: 00 Yes [id number] 40mg Take 2 tablets (40 mg total) by mouth daily Meilssa cates Pantoprazol e Sodium 40 MG oral Tablet Delayed Response 04-12 00:00: 00 06-19 00:00 :00 No 40mg Take 1 tablet (40 mg total) by mouth daily Melissa cates Ferrous Sulfate (Iron) 325 (65 Fe) MG oral Tablet 04-09 00:00: 00 Yes [id number] 325mg Take 1 tablet (325 mg total) by mouth 2 times daily Melissa cates Levothyroxi ne Sodium 50 MCG oral Tablet 04-07 00:00: 00 Yes [id number] 50ug Take 1 tablet (50 mcg total) [...] Tablet Delayed Response 04-03 00:00: 00 Yes [id number] 81mg Take 1 tablet (81 mg total) by mouth daily Melissa cates SITagliptin (JANUVIA) 100 mg tablet 09-30 16:27: 53 09-30 00:00 :00 No 100mg Take 100 mg by mouth in the morning. [facility] glipiZIDE XL (GLUCOTROL XL) 10 mg 24 hr tablet 09-30 16:27: 53 09-30 00:00 :00 No 10mg Take 10 mg by mouth in the morning and 10 mg in the evening. [facility] rosuvastati n 20 mg tablet 09-30 16:17: 42 09-30 00:00 :00 No 20mg Take 20 mg by mouth at bedtime. [facility] lisinopriL 5 mg tablet 09-30 16:17: 29 09-30 00:00 :00 No 5mg Take 5 mg by mouth in the morning. [facility] furosemide 20 mg tablet 09-30 15:17: 03 Yes 20mg Take 20 mg by mouth in the morning. [facility] esomeprazol e (NEXIUM) 20 mg capsule 09-30 15:17: 03 Yes 20mg Take 20 mg by mouth daily before a meal. [facility] LO ASPIRIN ORAL 09-30 15:17: 03 Yes Take by mouth. [facility] Lisinopril 5 MG oral Tablet 09-30 00:00: 00 Yes 5mg Take 5 mg by mouth daily Melissa cates Rosuvastati n Calcium 20 MG oral Tablet 09-30 00:00: 00 Yes 40mg Take 40 mg by mouth at bedtime Melissa cates gabapentin 300 mg capsule 09-30 00:00: 00 Yes [id number] 300mg Take 1 capsule by mouth in the morning and 1 capsule at noon and 1 capsule in the evening. [facility] rosuvastati n 20 mg tablet 09-30 00:00: 00 Yes [id number] 20mg Take 1 tablet by mouth at bedtime. [facility] amitriptyli ne 25 mg tablet 09-30 00:00: 00 02-24 00:00 :00 No [id number] 25mg Take 1 tablet by mouth at bedtime. [facility] Sitagliptin Phosphate 100 MG oral Tablet 09-30 00:00: 00 05-01 00:00 :00 No 100mg Take 100 mg by mouth daily Melissa cates glipiZIDE XL (GLUCOTROL XL) 10 mg 24 hr tablet 09-30 00:00: 00 03-30 05:59 :00 No [id number] 10mg Take 1 tablet by mouth in the morning and 1 tablet in the evening. Do all this for 180 days. [facility] furosemide 20 mg tablet 6 00:00: 00 No 1mg furosemide 20 mg tablet 0 616 00:00: 00 No 1mg furosemide 20 mg tablet 0 5- 00:00: 00 No 1mg furosemide 20 mg tablet 5- 00:00: 00 No 1mg lisinopril 5 mg tablet 0 4- 00:00: 00 No 1mg Januvia 100 mg tablet 4- 00:00: 00 No 1mg glipizide ER 10 mg tablet, extended release 24 hr - 00:00: 00 No 1mg lisinopril 5 mg tablet 4- 00:00: 00 No 1mg Januvia 100 mg tablet 0 4- 00:00: 00 No 1mg glipizide ER 10 mg tablet, extended release 24 hr 4- 00:00: 00 No 1mg Dose Unknown 4- 00:00: 00 No Dose Unknown 4- 00:00: 00 No Dose Unknown 4 00:00: 00 No Dose Unknown 4- 00:00: 00 No Dose Unknown 0 4- 00:00: 00 No Dose Unknown 4- 00:00: 00 No Dose Unknown 4 00:00: 00 No Dose Unknown 4 00:00: 00 No ondansetron 4 mg disintegrat ing tablet 3 00:00: 00 Yes [id number] 4mg Take 1 tablet by mouth every 8 (eight) hours as needed for Nausea and Vomiting (N/V). [facility] lisinopril 5 mg tablet 2020-02 2 [...] 00 No 1mg Januvia 50 mg tablet 20206-28 00:00: 00 No 1mg Bactrim DS 800 [...] 05-08 00:00: 00 09-30 00:00 :00 No [id number] 9109 1{tbl} Take 1 tablet by mouth every 12 (twelve) hours. [facility] glipiZIDE 5 mg tablet 05-08 00:00: 00 09-30 00:00 :00 No [id number] 9109 5mg Take 1 tablet by mouth daily. [facility] levothyroxi ne 25 mcg tablet 08-19 [...] mg tablet 07-30 00:00: 00 No 1mg carvedilol 3.125 mg tablet Take 1 tablet [...] VACCINE MODERNA 6MONTHS-5YEARS 2021-01-22 00:00:00 Completed Melissa Quigleyybold - External COVID-19 VACCINE MODERNA 6MONTHS-5YEARS 2021-01-22 00:00:00 Completed Melissa Quigleyold - External COVID-19 VACCINE MODERNA 6MONTHS-5YEARS 2021-01-22 00:00:00 Completed Melissa Quigleyold - External COVID-19 VACCINE MODERNA 6MONTHS-5YEARS 2021-01-22 00:00:00 Completed Melissa Quigleyold - External COVID-19 VACCINE MODERNA 6MONTHS-5YEARS 2021-01-22 00:00:00 Completed Melissa Seybold - External Moderna COVID-19 Vaccine 2021-01-22 00:00:00 Completed Moderna COVID-19 Vaccine 2021-01-22 00:00:00 Completed Covid-19 Vaccine Moderna (Spikevax), Mrna-lnp, Isaiah Protein, Pf 2020-07-29 00:00:00 [facility] Vaccine Moderna (Spikevax), Mrna-lnp, Isaiah Protein, Pf 2020-07-29 00:00:00 [facility] Cov[facility]-19 Vaccine Moderna (Spikevax), Mrna-lnp, Isaiah Protein, Pf 2020-07-29 00:00:00 [facility] Moderna (Spikevax), Mrna-lnp, Isaiah Protein, Pf 2020-07-29 00:00:00 [facility] Moderna (Spikevax), Mrna-lnp, Isaiah Protein, Pf 2020-07-29 00:00:00 Completed Melissa Seybold - External Covid-19 Vaccine Moderna (Spikevax), Mrna-lnp, Isaiah Protein, 2020-07-29 00:00:00 [facility]19 Vaccine Moderna (Spikevax), [...] 2017-11-27 00:00:00 Completed Melissa Barronold - External Influenza, Seasonal, Injectable, Preservative Free 2017-11-27 00:00:00 Completed Melissa Quigleyybold - External Influenza, Seasonal, Injectable, Preservative Free 2017-11-27 00:00:00 Completed Melissa Barronold - External Influenza, Seasonal, Injectable, Preservative Free 2017-11-27 00:00:00 Completed Melissa Seybold - External Influenza, Seasonal, Injectable, Preservative Free 2017-11-27 00:00:00 Completed Melissa Barronold - External Influenza, Seasonal, Injectable, Preservative Free [...] External Influenza Nasal, Unspecified Formulation Unknown [facility], Season[facility], Injectable, Preservative Free Unknown Completed [facility] - External Covid-19 Vaccine Moderna (Spikevax), Mrna-lnp, Isaiah Protein, Pf Unknown Completed [facility] - External COVID-19 VACCINE MODERNA 6MONTHS-5YEARS Unknown Com[facility] Influenza Nasal, Unspecified Formulation Unknown Com[facility] External Influenza, Seasonal, Injectable, Preservative Free Unknown Completed [facility] - External Covid-19 Vaccine Moderna (Spikevax), Mrna-lnp, Isaiah Protein, Pf Unknown Completed [facility] - External COVID-19 VACCINE MODERNA 6MONTHS-5YEARS Unknown [facility] Influ[facility] Nasal, Unspecified Formulation Unknown Completed [facility] - External Influenza, Seasonal, Injectable, Preservative Free Unknown Completed [facility] - External Covid-19 Vaccine Moderna (Spikevax), Mrna-lnp, Isaiah Protein, Pf Unknown Completed [facility] - External COVID-19 VACCINE MODERNA 6MONTHS-5YEARS Unknown Com[facility] Influenza Nasal, Unspecified Formulation Unknown Completed [facility] - External Influenza, Seasonal, Injectable, Preservative Free Unknown Completed [facility] - External Covid-19 Vaccine Moderna (Spikevax), Mrna-lnp, Isaiah Protein, Pf Unknown Completed [facility] External COVID-19 VACCINE MODERNA 6MONTHS-5YEARS Unknown Com[facility] Influenza Nasal, Unspecified Formulation Unknown Com[facility] External Influenza, Seasonal, Injectable, Preservative Free Unknown Completed [facility] - External Covid-19 Vaccine Moderna (Spikevax), Mrna-lnp, Isaiah Protein, Pf Unknown Completed [facility] - External COVID-19 VACCINE MODERNA 6MONTHS-5YEARS Unknown Completed Melissa Seol d - External Influenza Nasal, Unspecified Formulation Unknown Com[facility] External Influenza, Seasonal, Injectable, Preservative Free Unknown Completed [facility] - External Covid-19 Vaccine Moderna (Spikevax), Mrna-lnp, Isaiah Protein, Pf Unknown Completed Melissa Seybold - External COVID-19 VACCINE MODERNA 6MONTHS-5YEARS Unknown Completed Melissa Seol d - External Influenza Nasal, Unspecified Formulation Unknown Completed Melissa Seybold - External Influenza, Seasonal, Injectable, Preservative Free Unknown Completed [facility] bold - External Covid-19 Vaccine Moderna (Spikevax), Mrna-lnp, Isaiah Protein, Pf Unknown Completed [facility] - External COVID-19 VACCINE MODERNA 6MONTHS-5YEARS Unknown Completed Melissa Seol d - External Influenza Nasal, Unspecified Formulation Unknown Completed Melissa Seold - External Influenza, Seasonal, Injectable, Preservative Free Unknown Completed [facility] - External Covid-19 Vaccine Moderna (Spikevax), Mrna-lnp, Isaiah Protein, Pf Unknown Completed [facility] - External COVID-19 VACCINE MODERNA 6MONTHS-5YEARS Unknown Completed Melissa Seol d - External Influenza Nasal, Unspecified Formulation Unknown Completed [facility] - External Influenza, Seasonal, Injectable, Preservative Free Unknown Completed [facility] - External Covid-19 Vaccine Moderna (Spikevax), Mrna-lnp, Isaiah Protein, Pf Unknown Completed [facility] - External COVID-19 VACCINE MODERNA 6MONTHS-5YEARS Unknown Completed [facility] External Influenza Nasal, Unspecified Formulation Unknown Completed [facility] - External Influenza, Seasonal, Injectable, Preservative Free Unknown Completed [facility] - External Covid-19 Vaccine Moderna (Spikevax), Mrna-lnp, Isaiah Protein, Pf Unknown Completed [facility] - External COVID-19 VACCINE MODERNA 6MONTHS-5YEARS Unknown Completed Melissa Seol d - External Influenza Nasal, Unspecified Formulation Unknown [facility] Influenza, Seasonal, Injectable, Preservative Free Unknown Completed [facility] bold - External Covid-19 Vaccine Moderna (Spikevax), Mrna-lnp, Isaiah Protein, Pf Unknown [facility] - External COVID-19 VACCINE MODERNA 6MONTHS-5YEARS Unknown Completed Melissa Seol d - External Influenza Nasal, Unspecified Formulation Unknown Completed [facility] - External AFLURIA TRIVALENT PF(0.5mL) Unknown Completed Melissa Seybold - External Covid-19 Vaccine Moderna (Spikevax), Mrna-lnp, Isaiah Protein, Pf Unknown Completed Melissa Seybold - External COVID-19 VACCINE MODERNA 6MONTHS-5YEARS Unknown Completed Melisas Seybol d - External Influenza Nasal, Unspecified [...] External Influenza Nasal, Unspecified Formulation Unknown [facility] AFLURIA TRIVALENT PF(0.5mL) Unknown Completed Melissa Seold - External Covid-19 Vaccine Moderna (Spikevax), Mrna-lnp, Isaiah Protein, Pf Unknown Completed Melissa Seold - External COVID-19 VACCINE MODERNA 6MONTHS-5YEARS Unknown Completed Melissa Seol d - External Influenza Nasal, Unspecified Formulation Unknown [facility] AFLURIA TRIVALENT PF(0.5mL) Unknown [facility] Vaccine Moderna (Spikevax), Mrna-lnp, Isaiah Protein, Pf Unknown Completed Melissa Seold - External COVID-19 VACCINE MODERNA 6MONTHS-5YEARS Unknown Completed Melissa Seol d - External Influenza Nasal, Unspecified Formulation Unknown [facility] Influenza, Seasonal, Injectable, Preservative Free Unknown [facility] Vaccine Moderna (Spikevax), Mrna-lnp, Isaiah Protein, Pf Unknown Com[facility] External COVID-19 VACCINE MODERNA 6MONTHS-5YEARS Unknown Completed Melissa ol d - External Influenza Nasal, Unspecified Formulation Unknown Completed Melissa Seold - External Influenza, Seasonal, Injectable, Preservative Free Unknown Completed [facility] bold - External Covid-19 Vaccine Moderna (Spikevax), Mrna-lnp, Isaiah Protein, Pf Unknown Com[facility] External COVID-19 VACCINE MODERNA 6MONTHS-5YEARS Unknown [...] (Spikevax), Mrna-lnp, Isaiah Protein, Pf Unknown Completed [facility] - External COVID-19 VACCINE MODERNA 6MONTHS-5YEARS Unknown Completed [facility] - External Influenza Nasal, Unspecified Formulation Unknown Completed [facility] - External Influenza, Seasonal, Injectable, Preservative Free Unknown Completed [facility] - External Covid-19 Vaccine Moderna (Spikevax), Mrna-lnp, Isaiah Protein, Pf Unknown Completed [facility] - External COVID-19 VACCINE MODERNA 6MONTHS-5YEARS Unknown Completed [facility] - External Influenza Nasal, Unspecified Formulation Unknown Completed [facility] - External Influenza, Seasonal, Injectable, Preservative Free Unknown Completed [facility] - External COVID-19 VACCINE MODERNA 6MONTHS-5YEARS Unknown Completed [facility] - External Influenza Nasal, Unspecified Formulation Unknown Completed [facility] External Covid-19 Vaccine Moderna (Spikevax), Mrna-lnp, Isaiah Protein, Pf Unknown Completed [facility] - External Influenza, Seasonal, Injectable, Preservative Free Unknown Completed [facility] - External Covid-19 Vaccine Moderna (Spikevax), Mrna-lnp, Isaiah Protein, Pf Unknown Completed [facility] - External COVID-19 VACCINE MODERNA 6MONTHS-5YEARS Unknown Completed [facility] - External Influenza Nasal, Unspecified Formulation Unknown Completed [facility] - External Influenza, Seasonal, Injectable, Preservative Free Unknown Completed [facility] - External Covid-19 Vaccine Moderna (Spikevax), Mrna-lnp, Iasiah Protein, Pf Unknown Completed [facility] - External COVID-19 VACCINE MODERNA 6MONTHS-5YEARS Unknown Completed [facility] - External Influenza Nasal, Unspecified Formulation Unknown Completed [facility] - External Influenza, Seasonal, Injectable, Preservative Free Unknown Completed [facility] - External Covid-19 Vaccine Moderna (Spikevax), Mrna-lnp, Isaiah Protein, Pf Unknown Completed [facility] - External COVID-19 VACCINE MODERNA 6MONTHS-5YEARS Unknown [...] blood pressure 2024-01-05 17:34:00 136 mm[Hg] Melissa Quigleyybo ld - External Diastolic blood pressure 2024-01-05 17:34:00 80 mm[Hg] Melissa Quigleyybo ld - External Heart rate 2024-01-05 17:26:00 76 /min Dominikse megha Quigleyybold - External Body temperature 2024-01-05 17:26:00 36.56 Nannette Melissa Quigleyybold - External Respiratory rate 2024-01-05 17:26:00 18 /min Melissa Barronold - External Body height 2024-01-05 17:26:00 149.9 cm Trisha martin Seybold - External Body weight 2024-01-05 17:26:00 66.679 kg Trisha martin Seybold - External BMI 2024-01-05 17:26:00 29.69 kg/m2 Trisha ey Seybold - External Systolic blood pressure 2023-12-08 19:38:00 143 mm[Hg] Melissa Quigleyybo ld - External Diastolic blood pressure 2023-12-08 19:38:00 85 mm[Hg] Melissa Quigleyybo ld - External Heart rate 2023-12-08 19:38:00 72 /min Kelse y Seybold - External Respiratory rate 2023-12-08 19:38:00 16 /min Melissa Seybold - External Body height 2023-12-08 19:38:00 149.9 cm Trisha ey Seybold - External Body weight 2023-12-08 19:38:00 73.483 kg Trisha ey Seybold - External BMI 2023-12-08 19:38:00 32.72 kg/m2 Trisha ey Seybold - External Oxygen saturation in Arterial blood by Pulse oximetry 2023-12-08 19:38:00 99 /min Melissa Quigleyybo ld - External BMI (Body Mass Index) 2023-11-08 00:00:00 30.1 kg/m2 Panoramic - unspecified BP Diastolic 2023-11-08 00:00:00 83 mm[Hg] Cheney oramic - unspecified BP Systolic 2023-11-08 00:00:00 121 mm[Hg] Pano ramic - unspecified Body Weight 2023-11-08 00:00:00 149.2 [lb_av] P anoramic - unspecified Height 2023-11-08 00:00:00 59 [in_i] Panor amic - unspecified Systolic blood pressure 2023-10-01 14:50:00 143 mm[Hg] Melissa Seybo ld - External Diastolic blood pressure 2023-10-01 14:50:00 80 mm[Hg] Melissa ybo ld - External Heart rate 2023-10-01 14:50:00 78 /min Kelse y Seybold - External Body temperature 2023-10-01 14:50:00 36.56 Nannette Melissa Seybold - External Respiratory rate 2023-10-01 14:50:00 16 /min Melissa Seybold - External Body height 2023-10-01 14:50:00 149.9 cm Trisha ey Seybold - External Body weight 2023-10-01 14:50:00 71.215 kg Trisha ey Seybold - External BMI 2023-10-01 14:50:00 31.71 kg/m2 Trisha ey Seybold - External Oxygen saturation in Arterial blood by Pulse oximetry 2023-10-01 14:50:00 100 /min Melissa Quigleyybo ld - External Systolic blood pressure 2023-08-10 [...] Pulse oximetry 2023-03-17 21:59:00 100 /min Melissa Seybo ld - External Systolic blood pressure 2023-02-24 07:15:00 156 mm[Hg] [facility] Diastolic blood pressure 2023-02-24 07:15:00 88 mm[Hg] [facility] Heart rate 2023-02-24 07:15:00 97 /min [facility] Body temperature 2023-02-24 07:15:00 36.78 Nannette [facility] Respiratory rate 2023-02-24 07:15:00 13 /min [facility] Oxygen saturation in Arterial blood by Pulse oximetry 2023-02-24 07:15:00 96 /min [facility] Body height 2023-02-24 03:40:00 149.9 cm [facility] Body weight 2023-02-24 03:40:00 65.772 kg [facility] BMI 2023-02-24 03:40:00 29.29 kg/m2 [facility] Systolic blood pressure 2023-02-16 19:13:00 130 mm[Hg] Melissa Seybo ld - External Diastolic [...] External Heart rate 2022-04-03 21:11:00 73 /min Kelse y Seybold - External Body temperature 2022-04-03 21:11:00 37.39 Nannette Melissa Grant - External Respiratory rate 2022-04-03 21:11:00 14 /min Melissa Grant - External Body height 2022-04-03 21:11:00 149.9 cm Trisha Grant - External Body weight 2022-04-03 21:11:00 66.225 kg Trisha Grant - External BMI 2022-04-03 21:11:00 29.49 kg/m2 Trisha Grant - External Oxygen saturation in Arterial blood by Pulse oximetry 2022-04-03 21:11:00 99 /min Melissa Dwyer ld - External Systolic blood pressure 2021-09-30 20:09:00 144 mm[Hg] [facility] Diastolic blood pressure 2021-09-30 20:09:00 88 mm[Hg] [facility] Heart rate 2021-09-30 20:08:00 88 /min [facility] Body temperature 2021-09-30 20:08:00 35.94 Nannette [facility] Respiratory rate 2021-09-30 20:08:00 16 /min [facility] Body height 2021-09-30 20:08:00 149.9 cm [facility] Body weight 2021-09-30 20:08:00 64.501 kg [facility] BMI 2021-09-30 20:08:00 28.72 kg/m2 [facility] BP Systolic 2022-02-05 11:42:00 160 [...] Clinician Source URINALYSIS 2023-02-24 04:28:00 Keaton Patiño [facility] POCT TEST 2023-02-24 04:26:00 Keaton Patiño [facility] LIPASE 2023-02-24 04:10:00 Keaton Patiño [facility] COMP. METABOLIC PANEL (01741) 2023-02-24 04:10:00 eKaton Patiño [facility] CBC WITH DIFF 2023-02-24 04:10:00 Keaton Patiño [facility] CONSENT/REFUSAL FOR DIAGNOSIS AND TREATMENT 2023-02-24 03:30:37 Doctor Unassigned, [place] [facility] ECG- ADULT 2022-11-11 16:50:07 Adriano Agee - External POCT HEMOGLOBIN A1C TEST 2021-09-30 21:21:00 Andrew Verduzco [facility] Extraction of Dunlap Tooth Panoramic - unspecified Ligation of Fallopian Tube Panoramic - unspecified Plan of Care Planned Activity Planned Date Details Comments Source Goal Plan of Care Note [code = 02189-5] Goal Plan of Care Note [code = 25850-0] Goal Plan of Care Note [code = 60127-4] Goal Plan of Care Note [code = 43508-0] Goal Plan of Care Note [code = 26463-7] Goal Plan of Care Note [code = 18947-8] Goal Plan of Care Note [code = 21912-0] Goal Plan of Care Note [code = 53424-7] Goal Plan of Care Note [code = 38874-5] Goal Plan of Care Note [code = 47665-1] Goal Plan of Care Note [code = 77984-8] Goal Plan of Care Note [code = 30397-8] Goal Plan of Care Note [code = 63832-2] Goal Plan of Care Note [code = 13232-7] Goal Plan of Care Note [code = 83794-0] Goal Plan of Care Note [code = 24212-5] Goal Plan of Care Note [code = 83170-6] Goal Plan of Care Note [code = 55936-2] Goal Plan of Care Note [code = 06923-3] Goal Plan of Care Note [code = 54982-4] Goal Plan of Care Note [code = 33506-6] Goal Plan of Care Note [code = 48405-7] Goal Plan of Care Note [code = 19929-7] Goal Plan of Care Note [code = 60178-4] Goal Plan of Care Note [code = 40176-7] Goal Plan of Care Note [code = 48374-3] Goal Plan of Care Note [code = 89753-5] Goal Plan of Care Note [code = 94715-2] Goal Plan of Care Note [code = 68149-2] Goal Plan of Care Note [code = 37251-1] Goal Plan of Care Note [code = 52822-6] Goal Plan of Care Note [code = 85619-5] Goal Plan of Care Note [code = 16808-6] Goal Plan of Care Note [code = 24362-5] Goal Plan of Care Note [code = 18206-4] Goal Plan of Care Note [code = 42524-3] Goal Plan of Care Note [code = 34631-8] Goal Plan of Care Note [code = 24406-8] Goal Plan of Care Note [code = 07103-9] Goal Plan of Care Note [code = 66692-1] Goal Plan of Care Note [code = 19973-8] Goal Plan of Care Note [code = 35648-8] Goal Plan of Care Note [code = 42226-9] Goal Plan of Care Note [code = 53629-3] Goal Plan of Care Note [code = 26793-2] Goal Plan of Care Note [code = 99906-9] Goal Plan of Care Note [code = 29262-0] Goal Plan of Care Note [code = 67737-0] Goal Plan of Care Note [code = 72550-6] Goal Plan of Care Note [code = 52370-3] Goal Plan of Care Note [code = 44107-1] Goal Plan of Care Note [code = 84975-5] Goal Plan of Care Note [code = 24997-7] Encounters Start Date/Time End Date/Time Encounter Type Admission Type Attending Clinicians [facility] Facility Care Department Encounter ID Source 2020-12-08 09:56:25 Emergency [facility] [id number] [facility] 2024-04-25 14:20:00 2024-04-25 14:20:00 Outpatient MATEO ANTHONY [id number] [facility] 2024-04-19 10:40:00 2024-04-19 10:40:00 Outpatient IVIS HOOVER [id number] [facility] 2024-02-21 09:30:00 2024-02-21 09:30:00 Outpatient GIDEON RODRIGUEZ [id number] [facility] 2024-02-10 00:00:00 2024-02-10 00:00:00 Outpatient ADRIANO AGEE [id number] [facility] 2024-02-07 06:31:00 2024-02-07 06:32:00 Emergency X [facility] ERT [id number] [facility] 2024-02-07 06:31:00 2024-02-07 06:32:00 Emergency [facility] [id number] [facility] 2024-02-07 00:00:00 2024-02-07 00:00:00 Outpatient ADRIANO AGEE [id number] [facility] 2024-02-01 11:45:00 2024-02-01 11:45:00 Outpatient PREZASADRIANO MELISSA [id number] Melissa [facility] 2024-02-01 00:00:00 2024-02-01 00:00:00 Outpatient PREZAS, ADRIANO RAJPUT MELISSA [id number] [facility] 2024-01-28 12:00:00 2024-01-28 12:00:00 Outpatient LAB90 MELISSA MELISSA [id number] [facility] 2024-01-28 11:30:00 2024-01-28 11:30:00 Outpatient CHARLEY, OLIVIA RAJPUT MELISSA [id number] [facility] 2024-01-26 11:45:00 2024-01-26 11:45:00 Outpatient CHARLEY, OLIVIA RAJPUT MELISSA [id number] [facility] 2024-01-20 12:45:00 2024-01-20 12:45:00 Outpatient MELISSA RAPJUT [id number] [facility] 2024-01-19 11:30:00 2024-01-19 11:30:00 Outpatient CHARLEY, OLIVIA MELISSA MELISSA [id number] [facility] 2024-01-19 00:00:00 2024-01-19 00:00:00 Outpatient ALJAYMOGEREMIAS Lewis MELISSA RAJPUT [id number] [facility] 2024-01-19 00:00:00 2024-01-19 00:00:00 Outpatient PREZASADRIANO MELISSA RAJPUT [id number] [facility] 2024-01-18 00:00:00 2024-01-18 00:00:00 Outpatient ALROUMOGEREMIAS Lewis MELISSA RAJPUT [id number] [facility] 2024 00:00:00 2024 00:00:00 Outpatient PREZASADRIANO MELISSA RAJPUT [id number] [facility] 2024-01-12 11:30:00 2024-01-12 11:30:00 Outpatient CHARLEY, OLIVIA MELISSA RAJPUT [id number] [facility] 2024-01-05 13:00:00 2024-01-05 13:00:00 Outpatient LAB90 MELISSA MELISSA [id number] [facility] 2024-01-05 11:30:00 2024-01-05 11:30:00 Outpatient PREZAS, ADRIANO RAJPUT MELISSA [id number] [facility] 2023-12-29 08:30:00 2023-12-29 08:30:00 Outpatient CHARLEY, OLIVIA RAJPUT MELISSA [id number] [facility] 2023-12-28 00:00:00 2023-12-28 00:00:00 Outpatient PREZAS, ADRIANO RAJPUT MELISSA [id number] [facility] 2023-12-22 08:30:00 2023-12-22 08:30:00 Outpatient CHARLEY, OLIVIA RAJPUT MELISSA [id number] [facility] 2023-12-22 00:00:00 2023-12-22 00:00:00 Outpatient PREZAS, ADRIANO MELISSA RAJPUT [id number] [facility] 2023-12-15 08:30:00 2023-12-15 08:30:00 Outpatient CHARLEY, OLIVIA RAJPUT MELISSA [id number] [facility] 2023-12-15 00:00:00 2023-12-15 00:00:00 Outpatient PREZAS, ADRIANO MELISSA RAJPUT [id number] [facility] 2023-12-14 00:00:00 2023-12-14 00:00:00 Outpatient PREZAS, ADRIANO MELISSA RAJPUT [id number] [facility] 2023-12-09 00:00:00 2023-12-09 00:00:00 Outpatient PREZAS, ADRIANO MELISSA RAJPUT [id number] [facility] 2023-12-08 14:45:00 2023-12-08 14:45:00 Outpatient PREZAS, ADRIANO MELISSA RAJPUT [id number] [facility] 2023-12-08 00:00:00 2023-12-08 00:00:00 Outpatient MELISSA RAJPUT [id number] [facility] 2023-11-23 00:00:00 2023-11-23 00:00:00 Outpatient PREZAS, ADRIANO [facility]SA [facility]JPUT [id number] [facility]23-[facility]-19 00:00:00 2023-11-19 00:00:00 Outpatient PREZAS, ADRIANO MCWILLIAMSSEY [id number] [facility] 2023-11-18 00:00:00 2023-11-18 00:00:00 Outpatient PREZAS, ADRIANO RAJPUT MELISSA [id number] [facility] 2023-11-17 10:00:00 2023-11-17 10:00:00 Outpatient PREZAS, ADRIANO RAJPUT [id number] [facility] 2023-11-16 00:00:00 2023-11-16 00:00:00 Outpatient PREZAS, ADRIANO RAJPUT MELISSA [id number] [facility] 2023-11-16 00:00:00 2023-11-16 00:00:00 Outpatient PANCHOCARISSA MELISSA RAJPUT [id number] [facility] 2023-11-15 13:00:00 2023-11-15 13:00:00 Outpatient CHARLEYOLIVIA MELISSA [id number] [facility] 2023-11-15 09:15:00 2023-11-15 09:15:00 Outpatient 1, OPTICAL MELISSA MELISSA [id number] [facility] 2023-11-15 08:50:00 2023-11-15 08:50:00 Outpatient UDOET, GIDEON MELISSA RAJPUT [id number] [facility] 2023-11-15 00:00:00 2023-11-15 00:00:00 Outpatient PRINCE CHEEK MELISSA MELISSA [id number] Melissa Seybold 2023-11-15 00:00:00 2023-11-15 00:00:00 Outpatient PREZAS, ADRIANO MCWILLIAMSTAPAN RAJPUT [id number] Melissa Seybold 2023-11-08 00:00:00 2023-11-08 00:00:00 Outpatient PREZAS, ADRIANO MELISSA RAJPUT [id number] Melissa Seybold 2023-11-08 00:00:00 2023-11-08 00:00:00 Prince Cheek MD: [id number] [facility] [address], [place] [address] , Ph. [facility] [id number] [facility] - unspeci fied 2023-11-05 09:10:00 2023-11-05 09:10:00 Outpatient LAB90 MELISSA RAJPUT [id number] [facility] 2023-11-05 00:00:00 2023-11-05 00:00:00 Outpatient MARTY ADRIANO MELISSA RAJPUT [id number] [facility] 2023-11-04 00:00:00 2023-11-04 00:00:00 Outpatient ADRIANO AGEE [id number] [facility] 2023-11-01 09:30:00 2023-11-01 09:30:00 Outpatient DEANNE KAUR [id number] [facility] 2023-10-28 00:00:00 2023-10-28 00:00:00 Outpatient AHMED, MOHAMMED MELISSA RAJPUT [id number] [facility] 2023-10-27 16:00:00 2023-10-27 16:00:00 Outpatient MELISSA RAJPUT [id number] [facility] 2023-10-27 00:00:00 2023-10-27 00:00:00 Outpatient PRESHERRY ADRIANO MELISSA RAJPUT [id number] [facility] 2023-10-26 11:20:00 2023-10-26 11:20:00 Outpatient NOCKMATEO [id number] [facility] 2023-10-26 10:15:00 2023-10-26 10:15:00 Outpatient DCG861 MELISSA RAJPUT [id number] Melissa Seybold 2023-10-26 09:00:00 2023-10-26 09:00:00 Outpatient MELISSA RAJPUT [id number] Melissa Seybold 2023-10-21 11:20:00 2023-10-21 11:20:00 Outpatient MELISSA RAJPUT [id number] Melissa Seybold 2023-10-15 08:00:00 2023-10-15 08:00:00 Outpatient KESHAWN SCHNEIDER MELISSA RAJPUT [id number] Melissa Seybold 2023-10-14 16:20:00 2023-10-14 16:20:00 Outpatient MATEO ANTHONY MELISSA RAJPUT [id number] Melissa Seybold 2023-10-14 14:30:00 2023-10-14 14:30:00 Outpatient MELISSA RAJPUT [id number] Melissa Seybold 2023-10-06 09:00:00 2023-10-06 09:00:00 Outpatient UDOETUK, GIDEON MELISSA RAJPUT [id number] Melissa Seybold 2023-10-06 00:00:00 2023-10-06 00:00:00 Outpatient ADRIANO AGEE MELISSA RAJPUT [id number] Melissa Seybold 2023-10-05 07:45:00 2023-10-05 07:45:00 Outpatient UDOET, GIDEON MELISSA RAJPUT [id number] [facility] 2023-10-01 10:50:00 2023-10-01 10:50:00 Outpatient LAB90 MELISSA RAJPUT [id number] Melissa Seybold 2023-10-01 10:00:00 2023-10-01 10:00:00 Outpatient ADRIANO AGEE MELISSA RAJPUT [id number] Melissa Seybold 2023-09-28 00:00:00 2023-09-28 00:00:00 Outpatient MELISSA RAJPUT [id number] Melissa Seybold 2023-09-27 09:40:00 2023-09-27 09:40:00 Outpatient UDOETUK, GIDEON RAJPUT [id number] Melissa Seybold 2023-09-27 09:40:00 2023-09-27 09:40:00 Outpatient 1, OPTICAL MELISSA RAJPUT [id number] Melissa Seybold 2023-09-27 00:00:00 2023-09-27 00:00:00 Outpatient UDOET, GIDEON RAJPUT [id number] Melissa Seybold 2023-09-23 00:00:00 2023-09-23 00:00:00 Outpatient AHNIRALI GODOY MELISSA RAJPUT [id number] [facility] 2023-09-22 00:00:00 2023-09-22 00:00:00 Outpatient MELISSA RAJPUT [id number] [facility] 2023-09-22 00:00:00 2023-09-22 00:00:00 Outpatient KAUR, DEANNE MELISSA RAJPUT [id number] [facility] 2023-09-21 00:00:00 2023-09-21 00:00:00 Outpatient KAUR, DEANNE MELISSA RAJPUT [id number] [facility] 2023-09-20 10:40:00 2023-09-20 10:40:00 Outpatient LAB90 MELISSA RAJPUT [id number] [facility] 2023-09-14 00:00:00 2023-09-14 00:00:00 Outpatient PREZAS, ADRIANO RAJPUT [id number] [facility] 2023-09-13 00:00:00 2023-09-13 00:00:00 Outpatient PREZAS, ADRIANO [facility]ISSA RAJPUT [id number] [facility] 2023-[facility]-10 00:00:00 2023-09-10 00:00:00 Outpatient PREZAS, ADRIANO RAJPUT [id number] [facility] 2023-09-10 00:00:00 2023-09-10 00:00:00 Outpatient PREZAS, ADRIANO RAJPUT [id number] [facility] 2023-08-26 14:15:00 2023-08-26 14:15:00 Outpatient PREZAS, ADRIANO MELISSA RAJPUT [id number] [facility] 2023-08-10 09:45:00 2023-08-10 09:45:00 Outpatient PREZAS, ADRIANO RAJPUT [id number] [facility] 2023-07-28 14:50:00 2023-07-28 14:50:00 Outpatient GIDEON RODRIGUEZ [id number] [facility] 2023-07-28 14:45:00 2023-07-28 14:45:00 Outpatient 1, CHATO RAJPUT [id number] Melissa [facility]ra 2023-07-19 13:00:00 2023-07-19 13:00:00 Outpatient GIDEON RODRIGUEZ MELISSA RAJPUT [id number] [facility] 2023-06-21 11:30:00 2023-06-21 11:30:00 Outpatient PREZAADRIANO Resendez MELISSA RAJPUT [id number] Melissa [facility] 2023-06-01 11:45:00 2023-06-01 11:45:00 Outpatient PREZAMal, ADRIANO MELISSA RAJPUT [id number] [facility] 2023-05-28 00:00:00 2023-05-28 00:00:00 Outpatient PREZAADRIANO Resendez MELISSA RAJPUT [id number] [facility] 2023-05-27 08:30:00 2023-05-27 08:30:00 Outpatient MANNY KAURJYOTI RAJPUT [id number] Melissa Qu[facility]le[facility]ra 2023-05-24 08:40:00 2023-05-24 08:40:00 Outpatient LAB90 MELISSA RAJPUT [id number] [facility] 2023-05-24 00:00:00 2023-05-24 00:00:00 Outpatient PREADRIANO POWELL MELISSA RAJPUT [id number] [facility] 2023-05-21 09:55:00 2023-05-21 09:55:00 Outpatient LAB47 MELISSA RAJPUT [id number] [facility] 2023-05-21 09:20:00 2023-05-21 09:20:00 Outpatient ROBERTMINISTERIOMegha RAJPUT [id number] [facility] 2023-05-14 00:00:00 2023-05-14 00:00:00 Outpatient HAMANALISA AYALAKARI RAJPUT [id number] [facility] 2023-05-12 09:30:00 2023-05-12 09:30:00 Outpatient LAB90 MELISSA RAJPUT [id number] Melissa Seybold 2023-05-11 12:20:00 2023-05-11 12:20:00 Outpatient LAB90 MELISSA RAJPUT [id number] Melissa Rudy 2023-04-16 10:20:00 2023-04-16 10:20:00 Outpatient ROBERT, KESHAWN MELISSA RAJPUT [id number] Melissa Grant 2023-04-13 09:40:00 2023-04-13 09:40:00 Outpatient TOMOGRAPHYADIS MELISSA RAJPUT [id number] Melissa Grant 2023-04-13 09:40:00 2023-04-13 09:40:00 Outpatient NOCK, MATEO MELISSA RAJPUT [id number] Melissa Qu[facility]le[facility]ra 2023-04-08 14:00:00 2023-04-08 14:00:00 Outpatient PREZAS, ADRIANO MELISSA RAJPUT [id number] Melissa Grant 2023-04-06 13:20:00 2023-04-06 13:20:00 Outpatient ROBERT, KESHAWN RAJPUT [id number] Melissa Grant 2023-04-01 00:00:00 2023-04-01 00:00:00 Outpatient PREZAS, ADRIANOJUSTIN RAJPUT [id number] Melissa Quigleymayra 2023-03-17 16:20:00 2023-03-17 16:20:00 Outpatient KHASHAB, IVIS RAJPUT [id number] Melissa Rudy 2023-03-17 16:00:00 2023-03-17 16:00:00 Outpatient PREZAS, ADRIANO RAJPUT [id number] Melissa Grant 2023-03-17 14:45:00 2023-03-17 14:45:00 Outpatient KEMAR RODRIGUEZ [id number] [facility] 2023-03-16 10:00:00 2023-03-16 10:00:00 Outpatient PURCELLESTHER RAMOS [id number] Melissa ybmayra 2023-03-15 08:40:00 2023-03-15 08:40:00 Outpatient KHPIPO, IVIS RAJPUT [id number] [facility] 2023-03-12 13:30:00 2023-03-12 13:30:00 Outpatient PREZAS, ADRIANO RAJPUT [id number] [facility] 2023-03-02 12:20:00 2023-03-02 12:20:00 Outpatient KEMAR RODRIGUEZ [id number] [facility] 2023-03-02 12:00:00 2023-03-02 12:00:00 Outpatient ESTHER PURCELL [id number] [facility] 2023-03-01 00:00:00 2023-03-01 00:00:00 Outpatient ADRIANO AGEE [id number] [facility] 2023-02-23 21:41:00 2023-02-24 01:28:00 Emergency X KEATON PATIÑO [facility] ERT [id number] [facility] 2023-02-23 21:41:00 2023-02-24 01:28:00 Emergency Keaton Patiño S [facility] [id number] [facility] 2023-02-24 00:00:00 2023-02-24 00:00:00 Outpatient IVIS HOOVER [id number] [facility] 2023-02-23 00:00:00 2023-02-23 00:00:00 Outpatient ESTHER PURCELL [id number] [facility] 2023-02-23 00:00:00 2023-02-23 00:00:00 Outpatient ADRAINO AGEE [id number] [facility] 2023-02-23 00:00:00 2023-02-23 00:00:00 Outpatient ADRIANO AGEE [id number] [facility] 2023-02-22 00:00:00 2023-02-22 00:00:00 Outpatient ESTHER PURCELL [id number] [facility] 2023-02-22 00:00:00 2023-02-22 00:00:00 Outpatient MD MELISSA NOBLE [id number] [facility] 2023-02-22 00:00:00 2023-02-22 00:00:00 Outpatient HERNANDEZTANGELA MELISSA RAJPUT [id number] Melissa ybmayra 2023-02-22 00:00:00 2023-02-22 00:00:00 Outpatient ONLYNEGAR MELISSA RAJPTU [id number] Melissa Seybold 2023-02-18 00:00:00 2023-02-18 00:00:00 Outpatient PREADRIANO POWELL MELISSA RAJPUT [id number] Melissa Seybold 2023-02-16 14:05:00 2023-02-16 14:05:00 Outpatient TIFFANIE MELISSA RAJPUT [id number] Melissa Seybmayra 2023-02-16 11:40:00 2023-02-16 11:40:00 Outpatient HERNANDEZ TANGELA RAJPUT [id number] [facility] 2023-02-16 11:00:00 2023-02-16 11:00:00 Outpatient JAZZY ESTHER MELISSA RAJPUT [id number] [facility] 2023-02-16 00:00:00 2023-02-16 00:00:00 Outpatient \\R\\RSOH_[place] PANRSOH PANRSOH [id number] PANRSOH 2023-02-16 00:00:00 2023-02-16 00:00:00 Outpatient MD MELISSA NOBLE [id number] Melissa ybmayra 2023-02-15 00:00:00 2023-02-15 00:00:00 Outpatient MD MELISSA NOBLE [id number] Melissa Seybmayra 2023-02-10 15:00:00 2023-02-10 15:00:00 Outpatient HERNANDEZTANGELA RODRIGUEZ [id number] Melissa Seybmayra 2023-02-09 00:00:00 2023-02-09 00:00:00 Outpatient MELISSA RAJPUT [id number] Melissa Seybmayra 2023-02-03 14:30:00 2023-02-03 14:30:00 Outpatient LIZETH FLORES [id number] Melissa Seybold 2023-02-03 13:45:00 2023-02-03 13:45:00 Outpatient KEMAR RODRIGUEZ MELISSA RAJPUT [id number] Melissa Seybold 2023-01-21 14:45:00 2023-01-21 14:45:00 Outpatient LIZETH FLORES MELISSA RAJPUT [id number] Melissa Seybold 2023-01-21 00:00:00 2023-01-21 00:00:00 Outpatient MELISSA RAJPUT [id number] Melissa Seybold 2023-01-21 00:00:00 2023-01-21 00:00:00 Outpatient KEMAR RODRIGUEZ MELISSA RAJPUT [id number] Melissa Seybold 2023-01-20 11:45:00 2023-01-20 11:45:00 Outpatient KEMAR RODRIGUEZ MELISSA RAJPUT [id number] [facility] 2023-01-13 08:45:00 2023-01-13 08:45:00 Outpatient CHATO Garcia [id number] [facility] 2023-01-13 08:20:00 2023-01-13 08:20:00 Outpatient GIDEON RODRIGUEZ [id number] [facility] 2023-01-08 00:00:00 2023-01-08 00:00:00 Outpatient ADRIANO AGEE [id number] Melissa Seybold 2023-01-07 14:05:00 2023-01-07 14:05:00 Outpatient MELISSA RAJPUT [id number] Melissa Seybold 2023-01-07 14:00:00 2023-01-07 14:00:00 Outpatient MELISSA RAJPUT [id number] Melissa Seybold 2023-01-06 15:10:00 2023-01-06 15:10:00 Outpatient GIDEON RODRIGUEZ [id number] Melissa Seybold 2022-12-29 15:00:00 2022-12-29 15:00:00 Outpatient ERIC DURBIN [id number] Melissa Seybold 2022-12-29 00:00:00 2022-12-29 00:00:00 Outpatient ADRIANO AGEESEY [id number] Melissa [facility] 2022-12-28 00:00:00 2022-12-28 00:00:00 Outpatient MD MELISSA NOBLE [id number] [facility] 2022-12-25 00:00:00 2022-12-25 00:00:00 Outpatient SEBASTIAN CHUNG [id number] Melissa [facility] 2022-12-21 00:00:00 2022-12-21 00:00:00 Outpatient ZAIDANDREI MELISSA RAJPUT [id number] Melissa Grant 2022-12-21 00:00:00 2022-12-21 00:00:00 Outpatient PREZAS, ADRIANO RAJPUT [id number] Melissa Grant 2022-12-14 00:00:00 2022-12-14 00:00:00 Outpatient PREZAS, ADRIANO RAJPUT [id number] Melissa Grant 2022-12-11 14:15:00 2022-12-11 14:15:00 Outpatient LAB90 MELISSA RAJPUT [id number] Melissa Grant 2022-12-11 13:45:00 2022-12-11 13:45:00 Outpatient PREZAS, ADRIANO MELISSA RAJPUT [id number] Melissa [facility]ra 2022-12-06 00:00:00 2022-12-06 00:00:00 Outpatient PREZAS, ADRIANO RAJPUT [id number] Melissa Grant 2022-11-27 13:30:00 2022-11-27 13:30:00 Outpatient PREZAS, ADRIANO RAJPUT [id number] Melissa [facility] 2022-11-27 08:30:00 2022-11-27 08:30:00 Outpatient KEMAR RODRIGUEZ [id number] [facility] 2022-11-23 00:00:00 2022-11-23 00:00:00 Outpatient PREZAS, ADRIANO RAJPUT [id number] [facility] 2022-11-18 00:00:00 2022-11-18 00:00:00 Outpatient PREZAS, ADRIANO RAJPUT [id number] [facility] 2022-11-16 14:30:00 2022-11-16 14:30:00 Outpatient MELISSA RAJPUT [id number] Melissa Seybold 2022-11-16 00:00:00 2022-11-16 00:00:00 Outpatient PREZAS, ADRIANO RAJPUT MELISSA [id number] Melissa Seybold 2022-11-16 00:00:00 2022-11-16 00:00:00 Outpatient PREZAS, ADRIANO RAJPUT MELISSA [id number] Melissa Seybold 2022-11-16 00:00:00 2022-11-16 00:00:00 Outpatient PREZAS, ADRIANO MELISSA RAJPUT [id number] [facility] 2022-11-11 11:30:00 2022-11-11 11:30:00 Outpatient PREZAS, ADRIANO MELISSA RAJPUT [id number] [facility] 2022-11-05 15:00:00 2022-11-05 15:00:00 Outpatient PURCELL, ESTHER RAJPUT [id number] [facility] 2022-11-02 00:00:00 2022-11-02 00:00:00 Outpatient PURCELL, ESTHER RAJPUT [id number] Melissa Seybold 2022-11-02 00:00:00 2022-11-02 00:00:00 Outpatient PREZAS, ADRIANO MELISSA RAJPUT [id number] Melissa Seybold 2022-11-02 00:00:00 2022-11-02 00:00:00 Outpatient PREZAS, ADRIANO MELISSA RAJPUT [id number] Melissa Seybold 2022-10-30 13:40:00 2022-10-30 13:40:00 Outpatient UDMATTIETGIDEON LANDRY [id number] Melissa Seybold 2022-10-30 13:35:00 2022-10-30 13:35:00 [facility] [id number] Melissa Seybold 2022-10-30 10:30:00 2022-10-30 10:30:00 Outpatient KEMAR RODRIGUEZ [id number] Melissa Seybold 2022-10-30 00:00:00 2022-10-30 00:00:00 Outpatient ADRIANO AGEE MELISSA RAJPUT [id number] [facility] 2022-10-30 00:00:00 2022-10-30 00:00:00 Outpatient ADRIANO AGEE MELISSA RAJPUT [id number] [facility] 2022-10-30 00:00:00 2022-10-30 00:00:00 Outpatient MELISSA RAJPUT [id number] [facility] 2022-10-29 12:40:00 2022-10-29 12:40:00 Outpatient LAB90 MELISSA RAJPUT [id number] [facility] 2022-10-28 16:20:00 2022-10-28 16:20:00 Outpatient ZENIAAB IVIS MELISSA RAJPUT [id number] [facility] 2022-10-27 14:45:00 2022-10-27 14:45:00 Outpatient SHMUEL HAGEN [id number] [facility] 2022-10-26 16:00:00 2022-10-26 16:00:00 Outpatient SYDNIPIPO IVIS MELISSA RAJPUT [id number] [facility] 2022-10-26 14:30:00 2022-10-26 14:30:00 Outpatient NUHA WINSTON [id number] [facility] 2022-10-26 14:15:00 2022-10-26 14:15:00 Outpatient MELISSA RAJPUT [id number] [facility] 2022-10-23 14:30:00 2022-10-23 14:30:00 Outpatient GIDEON RODRIGUEZ [id number] [facility] 2022-10-19 08:50:00 2022-10-19 08:50:00 Outpatient NUHA WINSTON [id number] [facility] 2022-10-16 00:00:00 2022-10-16 00:00:00 Outpatient NUHA WINSTON [id number] [facility] 2022-10-13 15:20:00 2022-10-13 15:20:00 Outpatient NOCMATEO Graham MELISSA MELISSA [id number] Melissa Seybold 2022-10-13 14:00:00 2022-10-13 14:00:00 Outpatient VFManish MELISSA RAJPUT [id number] Melissa Seybold 2022-10-13 10:20:00 2022-10-13 10:20:00 Outpatient LEONID ROSE MELISSA RAJPUT [id number] Melissa Seybold 2022-10-02 00:00:00 2022-10-02 00:00:00 Outpatient MD MELISSA NOBLE [id number] Melissa Seybold 2022-10-01 00:00:00 2022-10-01 00:00:00 Outpatient PREZAS, ADRIANO MELISSA RAJPUT [id number] Melissa Seybold 2022-09-30 00:00:00 2022-09-30 00:00:00 Outpatient PREZAS, ADRIANO MELISSA RAJPUT [id number] Melissa Seybold 2022-09-30 00:00:00 2022-09-30 00:00:00 Outpatient PRINCE CHEEK MELISSA RAJPUT [id number] Melissa Seybold 2022-09-28 00:00:00 2022-09-28 00:00:00 Outpatient MATEO ANTHONY MELISSA RAJPUT [id number] Melissa Seybold 2022-09-28 00:00:00 2022-09-28 00:00:00 Outpatient PREZAS, ADRIANO MELISSA RAJPUT [id number] [facility] Seybold 2022-09-19 00:00:00 2022-09-19 00:00:00 Outpatient PREZAS, ADRIANO MELISSA RAJPUT [id number] Melissa Seybold 2022-09-15 00:00:00 2022-09-15 00:00:00 Outpatient PREZASADRIANO MELISSA RAJPUT [id number] Melissa Seybold 2022-09-14 11:55:00 2022-09-14 11:55:00 Outpatient LAB90 MELISSA RAJPUT [id number] Melissa Seybold 2022-09-14 00:00:00 2022-09-14 00:00:00 Outpatient PRINCE CHEEK MELISSA RAJPUT [id number] [facility] 2022-09-08 00:00:00 2022-09-08 00:00:00 Outpatient KESHAWN JONES MELISSA RAJPUT [id number] [facility] 2022-09-07 12:00:00 2022-09-07 12:00:00 Outpatient KESHAWN JONES MELISSA RAJPUT [id number] [facility] 2022-09-04 00:00:00 2022-09-04 00:00:00 Outpatient PREZAMal ADRIANO RAJPUT [id number] [facility] 2022-09-04 00:00:00 2022-09-04 00:00:00 Outpatient RODOLFOSHERRY ADRIANO RAJPUT [id number] [facility] 2022-09-03 15:15:00 2022-09-03 15:15:00 Outpatient ESTHER PURCELL [id number] [facility] 2022-09-02 00:00:00 2022-09-02 00:00:00 Outpatient MD MELISSA NOBLE [id number] [facility] 2022-09-01 00:00:00 2022-09-01 00:00:00 Outpatient MD MELISSA NOBLE [id number] [facility] 2022-09-01 00:00:00 2022-09-01 00:00:00 Outpatient ADRIANO AGEE [id number] [facility] 2022-08-31 00:00:00 2022-08-31 00:00:00 Outpatient ESTHER PURCELL [id number] [facility] 2022-08-27 13:30:00 2022-08-27 13:30:00 Outpatient ADRIANO AGEE [id number] [facility] 2022-08-19 11:30:00 2022-08-19 11:30:00 Outpatient GIDEON RODRIGUEZ [id number] [facility] 2022-08-04 13:00:00 2022-08-04 13:00:00 Outpatient GIDEON RODRIGUEZ MELISSA RAJPUT [id number] [facility] 2022-07-30 00:00:00 2022-07-30 00:00:00 Outpatient PRINCE CHEEK MELISSA RAJPUT [id number] [facility] 2022-07-28 00:00:00 2022-07-28 00:00:00 Outpatient NOCMATEO Graham MELISSA RAJPUT [id number] [facility] 2022-07-28 00:00:00 2022-07-28 00:00:00 Outpatient PREZAS, ADRIANO MELISSA RAJPUT [id number] [facility] 2022-07-28 00:00:00 2022-07-28 00:00:00 Outpatient PREZAS, ADRIANO MELISSA RAJPUT [id number] [facility] 2022-07-19 00:00:00 2022-07-19 00:00:00 Outpatient PREZAS, ADRIANO MELISSA RAJPUT [id number] [facility] 2022-07-15 13:15:00 2022-07-15 13:15:00 Outpatient MELISSA RAJPUT [id number] [facility] 2022-07-13 14:00:00 2022-07-13 14:00:00 Outpatient MATEO ANTHONY MELISSA RAJPUT [id number] [facility] 2022-07-10 00:00:00 2022-07-10 00:00:00 Outpatient PREZAS, ADRIANO MELISSA RAJPUT [id number] [facility] 2022-07-10 00:00:00 2022-07-10 00:00:00 Outpatient PREZAS, ADRIANO MELISSA RAJPUT [id number] [facility] 2022-07-09 13:30:00 2022-07-09 13:30:00 Outpatient LAB90 MELISSA RAJPUT [id number] [facility] 2022-07-07 00:00:00 2022-07-07 00:00:00 Outpatient PREZAS, ADRIANO MELISSA RAJPUT [id number] [facility] 2022-07-03 00:00:00 2022-07-03 00:00:00 Outpatient MD MELISSA NOBLE [id number] [facility] 2022-06-30 14:30:00 2022-06-30 14:30:00 Outpatient PREZAADRIANO Resendez MELISSA RAJPUT [id number] [facility] 2022-06-29 14:30:00 2022-06-29 14:30:00 Outpatient MORMATTIEChitraGIDEON LANDRY MELISSA RAJPUT [id number] [facility] 2022-06-29 13:15:00 2022-06-29 13:15:00 Outpatient 1, OPTICAL MELISSA RAJPUT [id number] [facility] 2022-06-24 11:00:00 2022-06-24 11:00:00 Outpatient PREZAS, ADRIANO MELISSA RAJPUT [id number] [facility] 2022-06-24 00:00:00 2022-06-24 00:00:00 Outpatient PREZAS, ADRIANO MELISSA RAJPUT [id number] [facility] 2022-06-24 00:00:00 2022-06-24 00:00:00 Outpatient NOCMATEO Graham MELISSA RAJPUT [id number] [facility] 2022-06-22 11:30:00 2022-06-22 11:30:00 Outpatient IVT, GABY RAJPUT [id number] [facility] 2022-06-22 00:00:00 2022-06-22 00:00:00 Outpatient MELISSA RAJPUT [id number] [facility] 2022-06-22 00:00:00 2022-06-22 00:00:00 Outpatient PREZAS ADRIANO RAJPUT [id number] [facility] 15:40:00 2022-06-19 15:40:00 Outpatient KESHAWN JONES [id number] [facility]22-06-19 14:00:00 2022-06-19 14:00:00 Outpatient ESTHER PURCELL [id number] [facility] 00:00:00 2022-06-19 00:00:00 Outpatient MANTRAVADI, CARLTON MELISSA RAJPUT [id number] [facility] 2022-06-17 00:00:00 2022-06-17 00:00:00 Outpatient NOCKMATEO MELISSA RAJPUT [id number] [facility] 2022-06-15 00:00:00 2022-06-15 00:00:00 Outpatient PREZAS [facility]ANO [facility]JPUT [id number] [facility] 00:00:00 2022-06-15 00:00:00 Outpatient MANTRAVADI, CARLTON RAJPUT [id number] [facility] 2022-06-12 14:20:00 2022-06-12 14:20:00 Outpatient KUMAR, ISMAALEJANDRA RAJPUT [id number] [facility] 2022-06-09 11:30:00 2022-06-09 11:30:00 Outpatient INFUSION, GABY RAJPUT [id number] [facility] 2022-06-02 00:00:00 2022-06-02 00:00:00 Outpatient RUBYANGELA MELISSA RAJPUT [id number] [facility] 2022-06-01 14:00:00 2022-06-01 14:00:00 Outpatient PREZAS, ADRIANO RAJPUT [id number] [facility]-01 00:00:00 2022-06-01 00:00:00 Outpatient MANTRAVACECILIO, CARLTON MELISSA RAPJUT [id number] [facility] 2022-05-26 10:00:00 2022-05-26 10:00:00 Outpatient IVT, GABY RAJPUT [id number] [facility] 2022-05-18 00:00:00 2022-05-18 00:00:00 Outpatient DIORZAIN HOLCOMB [id number] [facility] 2022-05-13 16:00:00 2022-05-13 16:00:00 Outpatient MELISSA RAJPUT [id number] [facility] 2022-05-12 11:35:00 2022-05-12 11:35:00 Outpatient TOMOGRAPHY, CK MELISSA RAJPUT [id number] [facility] 2022-05-12 11:05:00 2022-05-12 11:05:00 Outpatient TOMOGRAPHY, CK MELISSA RAJPUT [id number] [facility] 2022-05-12 10:40:00 2022-05-12 10:40:00 Outpatient NOCK, MATEO MELISSA RAJPUT [id number] [facility] 2022-05-11 14:30:00 2022-05-11 14:30:00 Outpatient ALADE, NUHA MELISSA RAJPUT [id number] [facility] 2022-05-08 10:00:00 2022-05-08 10:00:00 Outpatient PREADRIANO POWELL [id number] [facility] 2022-05-07 16:00:00 2022-05-07 16:00:00 Outpatient MAKEDAMATTHEW HART MELISSA RAJPUT [id number] [facility] 2022-05-06 00:00:00 2022-05-06 00:00:00 Outpatient MELISSA RAJPUT [id number] [facility] 2022-05-05 07:50:00 2022-05-05 07:50:00 Outpatient MELISSA RAJPUT [id number] [facility] 2022-05-05 07:30:00 2022-05-05 07:30:00 Outpatient MELISSA RAJPUT [id number] [facility] 2022-05-05 00:00:00 2022-05-05 00:00:00 Outpatient PREZASADRIANO [id number] [facility] 2022-05-05 00:00:00 2022-05-05 00:00:00 Outpatient JAE PHOEBE RAJPUT [id number] [facility]:00:00 2022-05-05 00:00:00 Outpatient PREZAADRIANO [facility] [id number] [facility] 00:00:00 2022-05-05 00:00:00 Outpatient MELISSA RAJPUT [id number] [facility] 2022-05-01 14:30:00 2022-05-01 14:30:00 Outpatient LAB90 MELISSA MELISSA [id number] [facility] 2022-05-01 13:45:00 2022-05-01 13:45:00 Outpatient PREZAMal, ADRIANO RAJPUT MELISSA [id number] [facility] 2022-04-22 16:15:00 2022-04-22 16:15:00 Outpatient MELISSA RAJPUT [id number] [facility] 2022-04-22 10:00:00 2022-04-22 10:00:00 Outpatient SYDNIASHIVIS LAROSE MELISSA MELISSA [id number] [facility] 2022-04-10 16:00:00 2022-04-10 16:00:00 Outpatient MELISSA RAJPUT [id number] [facility] 2022-04-10 00:00:00 2022-04-10 00:00:00 Outpatient PREZAS, ADRIANO MELISSA RAJPUT [id number] [facility] 2022-04-09 00:00:00 2022-04-09 00:00:00 Outpatient PREZAS, ADRIANO MELISSA RAJPUT [id number] [facility] 2022-04-09 00:00:00 2022-04-09 00:00:00 Outpatient PREZAS, ADRIANO MELISSA RAJPUT [id number] [facility] 2022-04-09 00:00:00 2022-04-09 00:00:00 Outpatient PREZAS, ADRIANO MELISSA RAJPUT [id number] [facility] 2022-04-08 14:15:00 2022-04-08 14:15:00 Outpatient LAB90 MELISSA RAJPUT [id number] [facility] 2022-04-07 00:00:00 2022-04-07 00:00:00 Outpatient PREZAS, ADRIANO MELISSA RAJPUT [id number] [facility] 2022-04-06 13:40:00 2022-04-06 13:40:00 Outpatient LAB90 MELISSA RAJPUT [id number] [facility] 2022-04-03 15:15:00 2022-04-03 15:15:00 Outpatient PREZAS, ADRIANO MELISSA RAJPUT [id number] Melissa Grant 2022-04-01 10:30:00 2022-04-01 10:30:00 Outpatient R ANDREW VERDUZCO OGECHUKWU [facility] [id number] [facility] 2022-04-01 10:30:00 2022-04-01 10:30:00 Outpatient R ANDREW VERDUZCO OGECHUKWU [facility] [id number] [facility] 2022-02-26 14:58:07 2022-02-26 14:58:07 Outpatient SFA SFA [id number] Matthew Brown 2022-02-20 14:15:19 2022-02-20 14:15:19 Outpatient SFA SFA [id number] Matthew Brown 2022-02-11 09:20:44 2022-02-11 09:20:44 Outpatient SFA SFA [id number] Matthew Brown 2022-02-05 11:38:34 2022-02-05 11:38:34 Outpatient SFA SFA [id number] Matthew Brown 2022-02-05 00:00:00 2022-02-05 00:00:00 Outpatient Visit [id number] 10:42:46 2021-11-17 10:42:46 Outpatient SFA SFA [id number] Matthew Brown 2021-11-13 15:06:22 2021-11-13 15:06:22 Outpatient SFA SFA [id number] Matthew Brown 2021-11-13 00:00:00 2021-11-13 00:00:00 Outpatient Visit [id number] 2021-10-09 00:00:2021-10-09 00:00:00 Outpatient R ROSETTA GALLARDO [facility] [id number] [facility] 2021-10-01 00:00:00 2021-10-01 00:00:00 Patient Outreach Malini Muñoz [facility] [id number] 350.1.13.10 [id number] [id number] [facility] 2021-10-01 00:00:00 2021-10-01 00:00:00 Telephone Malini Muñoz [facility] 1.2.840.114 350.1.13.10 4.2.7.2.686 [id number] [facility] 2021-09-30 15:00:00 2021-09-30 16:30:37 Outpatient R HA VERDUZCOMALLORIEANDREW PERALTA [facility] [id number] [facility] 2021-09-30 15:00:00 2021-09-30 16:30:37 Outpatient R ANDREW VERDUZCO OGECHUKWU [facility] [id number] [facility] 2021-09-30 15:00:00 2021-09-30 16:30:37 Office Visit DaxDorethashanice [facility] 1.2.840.114 350.1.13.10 4.2.7.2.686 [id number] [facility] 2021-09-30 00:00:00 2021-09-30 00:00:00 Orders Only Doctor Unassigned, [place] [facility] 1.2.840.114 350.1.13.10 4.2.7.2.686 [id number] [facility] 2021-07-24 00:00:00 2021-07-24 00:00:00 Orders Only Doctor Unassigned, [place] [facility] 1..840.114 350.1.13.10 4.2.7.2.686 [id number] [facility] 2021-04-11 14:20:00 2021-04-11 14:20:00 Outpatient R UNKNOWN, ATTENDING [facility] [id number] [facility] 2021-04-11 14:20:00 2021-04-11 14:20:00 Outpatient R UNKNOWN, ATTENDING [facility] [id number] [facility] 2021-04-07 21:43:00 2021-04-08 01:09:00 Emergency X LEXA GOFF [facility] ERT [id number] [facility] 2021-04-07 21:43:00 2021-04-08 01:09:00 Emergency Goff, Lexa [facility] 1..840.114 350.1.13.10 4.2.7.2.686 [id number] [facility] 2019-08-21 08:00:00 2019-08-21 08:00:00 Outpatient R PATRIA LEVY [facility] [id number] [facility] 2019-07-24 21:47:47 2019-07-25 02:18:00 Emergency X Santos MOISE [facility] ERT [id number] [facility] Results Test Description Test Time Test Comments Results Result Co mments Source [facility] [id number] 18:40:14* Test Item Value Reference Range Interpretation Comme nts VENTRICULAR RATE (test code = 95164) BPM ATRIAL RATE (test code = 76981) BPM P-R INTERVAL (test code = 91802) 134 ms QRS DURATION (test code = 74515) 80 ms Q-T INTERVAL (test code = 97918) 408 ms QTC CALCULATION(BEZE (test code = 09127) 437 ms CALCULATED P AXIS (test code = 31105) degrees CALCULATED R AXIS (test code = 15450) degrees CALCULATED T AXIS (test code = 34508) degrees DIAGNOSIS (test code = 48961) Normal sinus rhythmPossible Inferior infarct , age undeterminedPoor R-wave progressionBorderline ECGNo previous ECGs availableConfirmed by Radha MCCALL ([id number]) on 11/11/2022 1:40:13 PM Melissa Grant - ExternalLIPID [id number] 05:52:40* Test Item Value Reference Range Interpretation [...] SPECIMENS. FOR MOREINFORMATION, SEE CLIENT ANNOUNCEMENT AT [email or web address] /CalcLDL-C RISK RATIO LDL/HDL (test code = 2238) 2.22 RATIO <3.22 COMPREHENSIVE METABOLIC [id number] 05:52:40* Test Item Value Reference Range Interpretation Comme nts GLUCOSE (test code = 2217) 166 MG/DL 70-99 H BUN (test code = 2208) 33 MG/DL 6-20 H CREATININE (test code = 2214) 1.77 MG/DL 0.60-1.30 H eGFR (2020 CKD-EPI) (test code = 00097) 35 ML/MIN/1.73 >60 L CALC BUN/CREAT (test code = 2235) 19 RATIO 6-28 SODIUM (test code = 223) 141 MEQ/L 133-146 POTASSIUM (test code = 2228) 4.9 MEQ/L 3.5-5.4 CHLORIDE (test code = 2215) 108 MEQ/L 95-107 H CARBON DIOXIDE (test code = 2206) 22 MEQ/L 19-31 CALCIUM (test code = 220) 9.2 MG/DL 8.5-10.5 PROTEIN, TOTAL (test code = 222) 7.1 G/DL 6.1-8.3 ALBUMIN (test code = 220) 3.7 G/DL 3.5-5.2 CALC GLOBULIN (test code [...] 5-40 UNLESS OTHERWISE INDICATED, ALL TESTING PERFORMED coComment PATHOLOGY [employer] [address] [place] [address] [employer]SET PR[employer] SET UP OPERATOR: JAYCEE RAMIREZ M.D. [place] NUMBER [id number] [facility] [place]. [id number] HEMOGLOBIN [id number] 04:18:15* Test Item Value Reference Range Interpretation Comme [facility] HEMOGLOBIN A1c (test code = 76494) 7.5 % 4.2-5.6 H [employer] GUIDELINES FOR HGB A1C: [...] CONSIDER ALTERNATE TESTING OR LABORATORY CONSULTATION. HEMOGLOBIN [id number] 00:00:00* Test Item Value Reference Range Interpretation Comme [facility] HEMOGLOBIN A1c (test code = 23370) 7.5 % LIPID [id number] 00:00:00* Test Item Value Reference Range Interpretation Comme nts CHOLESTEROL (test code = 2210) 174 MG/DL TRIGLYCERIDES (test code = 2232) 192 MG/DL HDL CHOLESTEROL (test code = 2220) 45 MG/DL CALC LDL CHOL (test code = 2237) 100 MG/DL RISK RATIO LDL/HDL (test cod e = 2238) 2.22 RATIO COMPREHENSIVE METABOLIC [id number] 00:00:00* Test Item Value Reference Range Interpretation Comme nts GLUCOSE (test code = 2217) 166 MG/DL BUN (test code = 2208) 33 MG/DL CREATININE (test code = 2214) 1.77 MG/DL eGFR (2020 CKD-EPI) (test co de = 79033) 35 ML/MIN/1.73 CALC BUN/CREAT (test code = [...] = 2219) 8 U/L POCT HEMOGLOBIN A1C [id number] 21:21:00* Test Item Value Reference Range Interpretation Comme [facility] POCT HBA1C (test code = 4548-4) 8.2 % 4-6 A Lab Interpretation (test cod e = 92221-4) Abnormal [facility] [id number] 05:24:49* Test Item Value Reference Range Interpretation Comme [facility] HEMOGLOBIN A1c (test code = 98662) 7.8 % 4.2-5.6 H [employer] GUIDELINES FOR HGB A1C: [...] CONSIDER ALTERNATE TESTING OR LABORATORY CONSULTATION. LIPID [id number] 05:18:45* Test Item Value Reference Range Interpretation [...] SPECIMENS. FOR MOREINFORMATION, SEE CLIENT ANNOUNCEMENT AT [email or web address] /CalcLDL-C RISK RATIO LDL/HDL (test code = 2238) 3.54 RATIO <3.22 H COMPREHENSIVE METABOLIC [id number] 05:18:45* Test Item Value Reference Range Interpretation Comme nts GLUCOSE (test code = 2217) 202 MG/DL 70-99 H BUN (test code = 220) 23 MG/DL 6-20 H CREATININE (test code = 2214) 1.57 MG/DL 0.60-1.30 H eGFR (2020 CKD-EPI) (test code = 00390) 41 ML/MIN/1.73 >60 L CALC BUN/CREAT (test [...] 5-40 UNLESS OTHERWISE INDICATED, ALL TESTING PERFORMED [facility] [address] [place] [address] [employer] PR[employer] SET UP OPERATOR: JAYCEE RAMIREZ M.D. [place] NUMBER [id number] [facility] [place]. [id number] COMPREHENSIVE METABOLIC PANEL [ADDED]2021-07-26 00:00:00* Test Item Value Reference Range Interpretation Comme nts GLUCOSE (test code = 2217) 202 MG/DL BUN (test code = 2208) 23 MG/DL CREATININE (test code = 2214) 1.57 MG/DL eGFR (2020 CKD-EPI) (test co de = 98629) 41 ML/MIN/1.73 CALC BUN/CREAT (test code = [...] Comme nts HEMOGLOBIN A1c (test code = 79962) 7.8 % LIPID PANEL [ADDED]2021-07-26 00:00:00* Test [...] eGFR (2020 CKD-EPI) (test co de = 66308) 41 ML/MIN/1.73 CALC BUN/CREAT (test code = [...] Comme nts HEMOGLOBIN A1c (test code = 07916) 7.8 % LIPID PANEL [ADDED]2021-07-26 00:00:00* Test Item Value Reference Range Interpretation Comme nts CHOLESTEROL (test code = 2210) 222 MG/DL TRIGLYCERIDES (test code = 2232) 313 MG/DL HDL CHOLESTEROL (test code = 2220) 39 MG/DL CALC LDL CHOL (test code = 2237) 138 MG/DL RISK RATIO LDL/HDL (test cod e = 2238) 3.54 RATIO HEMOGLOBIN [id number] 06:11:51* Test Item Value Reference Range Interpretation Comme nts HEMOGLOBIN A1c (test code = 59837) 10.8 % 4.2-5.6 H [employer] GUIDELINES FOR HGB A1C: [...] CONSIDER ALTERNATE TESTING OR LABORATORY CONSULTATION. LIPID [id number] 05:14:42* Test Item Value Reference Range Interpretation [...] SPECIMENS. FOR MOREINFORMATION, SEE CLIENT ANNOUNCEMENT AT [email or web address] /CalcLDL-C RISK RATIO LDL/HDL (test code = 2238) 2.90 RATIO <3.22 COMPREHENSIVE METABOLIC [id number] 05:14:42* Test Item Value Reference Range Interpretation Comme nts GLUCOSE (test code = 2217) 58 MG/DL 70-99 L BUN (test code = 2208) 19 MG/DL 6-20 CREATININE (test code = 2214) 1.40 MG/DL 0.60-1.30 H eGFR (2020 CKD-EPI) (test code = 79454) 47 ML/MIN/1.73 >60 L CALC BUN/CREAT (test [...] 5-40 UNLESS OTHERWISE INDICATED, ALL TESTING PERFORMED [facility] [employer] [address] [place] [address] LETTERSET PRESS SET UP OPERATOR: JAYCEE RAMIREZ M.D. CLIA NUMBER [id number] [facility] [place]. [id number] COMPREHENSIVE METABOLIC [id number] 00:00:00* Test Item Value Reference Range Interpretation Comme nts GLUCOSE (test code = 2217) 58 MG/DL BUN (test code = 2208) 19 MG/DL CREATININE (test code = 2214) 1.40 MG/DL eGFR (2020 CKD-EPI) (test co de = 88727) 47 ML/MIN/1.73 CALC BUN/CREAT (test code = [...] (test code = 2219) 11 U/L HEMOGLOBIN [id number] 00:00:00* Test Item Value Reference Range Interpretation Comme nts HEMOGLOBIN A1c (test code = 91960) 10.8 % LIPID [id number] 00:00:00* Test Item Value Reference Range Interpretation Comme nts CHOLESTEROL (test code = 2210) 235 MG/DL TRIGLYCERIDES (test code = 2232) 215 MG/DL HDL CHOLESTEROL (test code = 2220) 51 MG/DL CALC LDL CHOL (test code = 2237) 148 MG/DL RISK RATIO LDL/HDL (test cod e = 2238) 2.90 RATIO COMPREHENSIVE METABOLIC [id number] 00:00:00* Test Item Value Reference Range Interpretation Comme nts GLUCOSE (test code = 2217) 58 MG/DL BUN (test code = 2208) 19 MG/DL CREATININE (test code = 2214) 1.40 MG/DL eGFR (2020 CKD-EPI) (test co de = 94019) 47 ML/MIN/1.73 CALC BUN/CREAT (test code = [...] (test code = 2219) 11 U/L HEMOGLOBIN [id number] 00:00:00* Test Item Value Reference Range Interpretation Comme nts HEMOGLOBIN A1c (test code = 67807) 10.8 % LIPID [id number] 00:00:00* Test Item Value Reference Range Interpretation Comme nts CHOLESTEROL (test code = 2210) 235 MG/DL TRIGLYCERIDES (test code = 2232) 215 MG/DL HDL CHOLESTEROL (test code = 2220) 51 MG/DL CALC LDL CHOL (test code = 2237) 148 MG/DL RISK RATIO LDL/HDL (test cod e = 2238) 2.90 RATIO HEMOGLOBIN [id number] 11:23:29* Test Item Value Reference Range Interpretation Comme nts HEMOGLOBIN A1c (test code = 76773) 13.0 % 4.2-5.6 H [employer] GUIDELINES FOR HGB A1C: [...] OR LABORATORY CONSULTATION. CBC W/AUTO DIFF WITH [id number] 10:40:41* Test Item Value Reference Range Interpretation [...] = 1065) 0.0 /100 WBC'S See_Comment [Automated [employer]] The system which generated this result [...] 0.00-0.10 ABS NUCLEATED RBCS (test code = 86201) 0.00 K/UL 0.00-0.11 TSH, THIRD [id number] 06:03:58* Test Item Value Reference Range Interpretation Comme nts TSH, THIRD GENERATION (test code = 2821) 5.840 UIU/ML 0.400-4.100 H UNLESS OTHERWISE INDICATED, ALL TESTING PERFORMED [facility] [employer] [address] [place] [address] LETTERSET PRESS SET UP OPERATOR: JAYCEE RAMIREZ M.D. CLIA NUMBER [id number] [facility] [place]. [id number] LIPID [id number] 05:12:52* Test Item Value Reference Range Interpretation [...] SPECIMENS. FOR MOREINFORMATION, SEE CLIENT ANNOUNCEMENT AT [email or web address] CalcLDL-C RISK RATIO LDL/HDL (test code = 2238) 4.13 RATIO <3.22 H UNABLE TO DONNA CULATE COMPREHENSIVE METABOLIC [id number] 05:12:52* Test Item Value Reference Range Interpretation Comme nts GLUCOSE (test code = 2217) 304 MG/DL 70-99 H BUN (test code = 2208) 26 MG/DL 6-20 H CREATININE (test code = 2214) 1.81 MG/DL 0.60-1.30 H eGFR (2020 CKD-EPI) (test code = 59660) 34 ML/MIN/1.73 >60 L CALC BUN/CREAT (test [...] = 2219) 13 U/L 5-40 COMPREHENSIVE METABOLIC [id number] 00:00:00* Test Item Value Reference Range Interpretation Comme nts GLUCOSE (test code = 2217) 304 MG/DL BUN (test code = 2208) 26 MG/DL CREATININE (test code = 2214) 1.81 MG/DL eGFR (2020 CKD-EPI) (test co de = 18849) 34 ML/MIN/1.73 CALC BUN/CREAT (test code = [...] ALT (test code = 2219) 13 U/L [id number] 00:00:00* Test Item Value Reference Range Interpretation Comme nts TSH, THIRD GENERATION (test code = 2821) 5.840 UIU/ML CBC W/AUTO [id number] 00:00:00* Test Item Value Reference Range Interpretation [...] ABS NUCLEATED RBCS (test cod e = 38592) 0.00 K/UL HEMOGLOBIN [id number] 00:00:00* Test Item Value Reference Range Interpretation Comme nts HEMOGLOBIN A1c (test code = 35773) 13.0 % LIPID [id number] 00:00:00* Test Item Value Reference Range Interpretation Comme nts CHOLESTEROL (test code = 2210) 278 MG/DL TRIGLYCERIDES (test code = 2232) 553 MG/DL HDL CHOLESTEROL (test code = 2220) 38 MG/DL CALC LDL CHOL (test code = 2237) (NOTE) MG/DL RISK RATIO LDL/HDL (test cod e = 2238) 4.13 RATIO COMPREHENSIVE METABOLIC [id number] 00:00:00* Test Item Value Reference Range Interpretation Comme nts GLUCOSE (test code = 2217) 304 MG/DL BUN (test code = 2208) 26 MG/DL CREATININE (test code = 2214) 1.81 MG/DL eGFR (2020 CKD-EPI) (test co de = 28602) 34 ML/MIN/1.73 CALC BUN/CREAT (test code = [...] ALT (test code = 2219) 13 U/L [id number] 00:00:00* Test Item Value Reference Range Interpretation Comme nts TSH, THIRD GENERATION (test code = 2821) 5.840 UIU/ML CBC W/AUTO [id number] 00:00:00* Test Item Value Reference Range Interpretation [...] ABS NUCLEATED RBCS (test cod e = 34274) 0.00 K/UL HEMOGLOBIN [id number] 00:00:00* Test Item Value Reference Range Interpretation Comme nts HEMOGLOBIN A1c (test code = 22554) 13.0 % LIPID [id number] 00:00:00* Test Item Value Reference Range Interpretation Comme nts CHOLESTEROL (test code = 2210) 278 MG/DL TRIGLYCERIDES (test code = 2232) 553 MG/DL HDL CHOLESTEROL (test code = 2220) 38 MG/DL CALC LDL CHOL (test code = 2237) (NOTE) MG/DL RISK RATIO LDL/HDL (test cod e = 2238) 4.13 RATIO LIPID [id number] 04:41:06* Test Item Value Reference Range Interpretation [...] SPECIMENS. FOR MOREINFORMATION, SEE CLIENT ANNOUNCEMENT AT [email or web address]://www.[email or web address]/ CalcLDL-C RISK RATIO LDL/HDL (test code = 2238) 3.83 RATIO <3.22 H UNABLE TO DONNA CULATE COMPREHENSIVE METABOLIC [id number] 04:41:06* Test Item Value Reference Range Interpretation Comme nts GLUCOSE (test code = 2217) 87 MG/DL 70-99 BUN (test code = 2208) 19 MG/DL 6-20 CREATININE (test code = 2214) 1.31 MG/DL 0.60-1.30 H EFFECTIVE 2020, [facility] HAS IMPLEMENTED THE NKF-ASN RECOMMENDED KD-EPI EGFR REFIT CALCULATION THAT DOES NOT INCLUDE A COEFFICIENT FORRACE. FOR MORE INFORMATION, SEE ANNOUNCEMENT [email or web address] eGFR (2020 CKD-EPI) (test code = 09505) 51 ML/MIN/1.73 >60 L CALC BUN/CREAT (test [...] 5-40 UNLESS OTHERWISE INDICATED, ALL TESTING PERFORMED [facility] [employer] [address] [place] [address] [employer]SET PRESS SET UP OPERATOR: JAYCEE RAMIREZ M.D. [place] NUMBER [id number] [facility] [place]. [id number] HEMOGLOBIN [id number] 02:36:52* Test Item Value Reference Range Interpretation Comme nts HEMOGLOBIN A1c (test code = 41605) 7.3 % 4.2-5.6 H [employer] GUIDELINES FOR HGB A1C: [...] ALTERNATE TESTING OR LABORATORY CONSULTATION. COMPREHENSIVE METABOLIC [id number] 00:00:00* Test Item Value Reference Range Interpretation Comme nts GLUCOSE (test code = 2217) 87 MG/DL BUN (test code = 2208) 19 MG/DL CREATININE (test code = 2214) 1.31 MG/DL eGFR (2020 CKD-EPI) (test co de = 81345) 51 ML/MIN/1.73 CALC BUN/CREAT (test code = [...] (test code = 2219) 13 U/L HEMOGLOBIN [id number] 00:00:00* Test Item Value Reference Range Interpretation Comme nts HEMOGLOBIN A1c (test code = 39068) 7.3 % LIPID [id number] 00:00:00* Test Item Value Reference Range Interpretation Comme nts CHOLESTEROL (test code = 2210) 230 MG/DL TRIGLYCERIDES (test code = 2232) 455 MG/DL HDL CHOLESTEROL (test code = 2220) 35 MG/DL CALC LDL CHOL (test code = 2237) (NOTE) MG/DL RISK RATIO LDL/HDL (test cod e = 2238) 3.83 RATIO COMPREHENSIVE METABOLIC [id number] 00:00:00* Test Item Value Reference Range Interpretation Comme nts GLUCOSE (test code = 2217) 87 MG/DL BUN (test code = 2208) 19 MG/DL CREATININE (test code = 2214) 1.31 MG/DL eGFR (2020 CKD-EPI) (test co de = 16693) 51 ML/MIN/1.73 CALC BUN/CREAT (test code = [...] (test code = 2219) 13 U/L HEMOGLOBIN [id number] 00:00:00* Test Item Value Reference Range Interpretation Comme nts HEMOGLOBIN A1c (test code = 12499) 7.3 % LIPID [id number] 00:00:00* Test Item Value Reference Range Interpretation Comme nts CHOLESTEROL (test code = 2210) 230 MG/DL TRIGLYCERIDES (test code = 2232) 455 MG/DL HDL CHOLESTEROL (test code = 2220) 35 MG/DL CALC LDL CHOL (test code = 2237) (NOTE) MG/DL RISK RATIO LDL/HDL (test cod e = 2238) 3.83 RATIO COMPREHENSIVE METABOLIC [id number] 00:00:00* Test Item Value Reference Range Interpretation Comme nts GLUCOSE (test code = 2217) 147 MG/DL BUN (test code = 2208) 23 MG/DL CREATININE (test code = 2214) 1.27 MG/DL eGFR AMER. (test cod e = 56789) 59 ML/MIN/1.73 eGFR NON- AMER. (test code = 11556) 51 ML/MIN/1.73 CALC BUN/CREAT (test code = [...] (test code = 2219) 11 U/L HEMOGLOBIN [id number] 00:00:00* Test Item Value Reference Range Interpretation Comme nts HEMOGLOBIN A1c (test code = 54078) 7.2 % LIPID [id number] 00:00:00* Test Item Value Reference Range Interpretation Comme nts CHOLESTEROL (test code = 2210) 250 MG/DL TRIGLYCERIDES (test code = 2232) 312 MG/DL HDL CHOLESTEROL (test code = 2220) 41 MG/DL CALC LDL CHOL (test code = 2237) 161 MG/DL RISK RATIO LDL/HDL (test cod e = 2238) 3.93 RATIO COMPREHENSIVE METABOLIC [id number] 00:00:00* Test Item Value Reference Range Interpretation Comme nts GLUCOSE (test code = 2217) 147 MG/DL BUN (test code = 2208) 23 MG/DL CREATININE (test code = 2214) 1.27 MG/DL eGFR AMER. (test cod e = 09427) 59 ML/MIN/1.73 eGFR NON- AMER. (test code = 21470) 51 ML/MIN/1.73 CALC BUN/CREAT (test code = [...] (test code = 2219) 11 U/L HEMOGLOBIN [id number] 00:00:00* Test Item Value Reference Range Interpretation Comme nts HEMOGLOBIN A1c (test code = 74551) 7.2 % LIPID [id number] 00:00:00* Test Item Value Reference Range Interpretation Comme nts CHOLESTEROL (test code = 2210) 250 MG/DL TRIGLYCERIDES (test code = 2232) 312 MG/DL HDL CHOLESTEROL (test code = 2220) 41 MG/DL CALC LDL CHOL (test code = 2237) 161 MG/DL RISK RATIO LDL/HDL (test cod e = 2238) 3.93 RATIO PAP TEST, THINPREP, [id number] 00:00:00* Test Item Value Reference Range Interpretation Comme nts SOURCE: (test code = 8001) Endocervical SLIDES: (test code = 8011) 1 LMP: (test code = 8021) 06/27/2020 SPECIMEN ADEQUACY: (test code = 96068) (NOTE) INTERPRETATION: (test code = 02002) NILM/NO EPITH. ABNORMALITY;SEE BELOW BUOY TENDER: (test code = 8101) OSCAR Heaton(ASCP) QC TECHNOLOGIST: (test code = 8111) [facility] LOCATION: (test code = 14648) (NOTE) CPT: (test code = 8140) (NOTE) PAP TEST, THINPREP, [id number] 00:00:00* Test Item Value Reference Range Interpretation Comme nts SOURCE: (test code = 8001) Endocervical SLIDES: (test code = 8011) 1 LMP: (test code = 8021) 06/27/2020 SPECIMEN ADEQUACY: (test code = 24505) (NOTE) INTERPRETATION: (test code = 85071) NILM/NO EPITH. ABNORMALITY;SEE BELOW BUOY TENDER: (test code = 8101) OSCAR Heaton(ASCP) QC TECHNOLOGIST: (test code = 8111) [facility] LOCATION: (test code = 54201) (NOTE) CPT: (test code = 8140) (NOTE) CULTURE, [id number] 00:00:00* Test Item Value Reference Range Interpretation Comme nts CULTURE, URINE (test code = 20693) SPECIMEN NUMBER: [id number] CULTURE, [id number] 00:00:00* Test Item Value Reference Range Interpretation Comme nts CULTURE, URINE (test code = 65860) SPECIMEN NUMBER: [id number] HPV HIGH RISK WITH GENOTYPE, [id number] 00:00:00* Test Item Value Reference Range Interpretation Comme nts HPV HIGH RISK INTERP (test c ode = 83275) POSITIVE HPV 16 (test code = 15923) NEGATIVE HPV 18 (test code = 90889) NEGATIVE HPV, HR, OTHER GENOTYPES (te st code = 94618) POSITIVE HPV HIGH RISK WITH GENOTYPE, [id number] 00:00:00* Test Item Value Reference Range Interpretation Comme nts HPV HIGH RISK INTERP (test c ode = 15336) POSITIVE HPV 16 (test code = 65105) NEGATIVE HPV 18 (test code = 08062) NEGATIVE HPV, HR, OTHER GENOTYPES (te st code = 10663) POSITIVE VITAMIN D, 25 [id number] 00:00:00* Test Item Value Reference Range Interpretation Comme nts VITAMIN D, 25 OH (test code = 4958) TEST NOT PERFORMED NG/ML VITAMIN D, 25 [id number] 00:00:00* Test Item Value Reference Range Interpretation Comme nts VITAMIN D, 25 OH (test code = 4958) TEST NOT PERFORMED NG/ML CBC W/AUTO [id number] 00:00:00* Test Item Value Reference Range Interpretation [...] ABS NUCLEATED RBCS (test cod e = 52339) 0.00 K/UL CBC W/AUTO [id number] 00:00:00* Test Item Value Reference Range Interpretation [...] ABS NUCLEATED RBCS (test cod e = 89125) 0.00 K/UL COMPREHENSIVE METABOLIC [id number] 00:00:00* Test Item Value Reference Range Interpretation Comme nts GLUCOSE (test code = 2217) 300 MG/DL BUN (test code = 2208) 23 MG/DL CREATININE (test code = 2214) 1.24 MG/DL eGFR AMER. (test cod e = 54089) 60 ML/MIN/1.73 eGFR NON- AMER. (test code = 59644) 52 ML/MIN/1.73 CALC BUN/CREAT (test code = [...] ALT (test code = 2219) 12 U/L [id number] 00:00:00* Test Item Value Reference Range Interpretation Comme nts TSH, THIRD GENERATION (test code = 2821) 6.280 UIU/ML HEMOGLOBIN [id number] 00:00:00* Test Item Value Reference Range Interpretation Comme nts HEMOGLOBIN A1c (test code = 91955) 11.5 % LIPID [id number] 00:00:00* Test Item Value Reference Range Interpretation Comme nts CHOLESTEROL (test code = 2210) 260 MG/DL TRIGLYCERIDES (test code = 2232) 353 MG/DL HDL CHOLESTEROL (test code = 2220) 40 MG/DL CALC LDL CHOL (test code = 2237) 160 MG/DL RISK RATIO LDL/HDL (test cod e = 2238) 4.00 RATIO COMPREHENSIVE METABOLIC [id number] 00:00:00* Test Item Value Reference Range Interpretation Comme nts GLUCOSE (test code = 2217) 300 MG/DL BUN (test code = 2208) 23 MG/DL CREATININE (test code = 2214) 1.24 MG/DL eGFR AMER. (test cod e = 00198) 60 ML/MIN/1.73 eGFR NON- AMER. (test code = 49560) 52 ML/MIN/1.73 CALC BUN/CREAT (test code = [...] ALT (test code = 2219) 12 U/L [id number] 00:00:00* Test Item Value Reference Range Interpretation Comme nts TSH, THIRD GENERATION (test code = 2821) 6.280 UIU/ML HEMOGLOBIN [id number] 00:00:00* Test Item Value Reference Range Interpretation Comme nts HEMOGLOBIN A1c (test code = 25457) 11.5 % LIPID [id number] 00:00:00* Test Item Value Reference Range Interpretation Comme nts CHOLESTEROL (test code = 2210) 260 MG/DL TRIGLYCERIDES (test code = 2232) 353 MG/DL HDL CHOLESTEROL (test code = 2220) 40 MG/DL CALC LDL CHOL (test code = 2237) 160 MG/DL RISK RATIO LDL/HDL (test cod e = 2238) 4.00 RATIO COMPREHENSIVE METABOLIC [id number] 00:00:00* Test Item Value Reference Range Interpretation Comme nts GLUCOSE (test code = 2217) 313 MG/DL BUN (test code = 2208) 15 MG/DL CREATININE (test code = 2214) 0.71 MG/DL eGFR AMER. (test cod e = 72859) 123 ML/MIN/1.73 eGFR NON- AMER. (test code = 67639) 106 ML/MIN/1.73 CALC BUN/CREAT (test code = [...] (test code = 2219) 11 U/L LIPID [id number] 00:00:00* Test Item Value Reference Range Interpretation [...] (test code = 2821) 17.0 UIU/ML HEMOGLOBIN [id number] 00:00:00* Test Item Value Reference Range Interpretation Comme [facility] HEMOGLOBIN A1c (test code = 64854) 12.3 % CBC W/AUTO [id number] 00:00:00* Test Item Value Reference Range Interpretation [...] code = 1015) 408 K/UL COMPREHENSIVE METABOLIC [id number] 00:00:00* Test Item Value Reference Range Interpretation Comme nts GLUCOSE (test code = 2217) 313 MG/DL BUN (test code = 2208) 15 MG/DL CREATININE (test code = 2214) 0.71 MG/DL eGFR AMER. (test cod e = 71087) 123 ML/MIN/1.73 eGFR NON- AMER. (test code = 60674) 106 ML/MIN/1.73 CALC BUN/CREAT (test code = [...] (test code = 2219) 11 U/L LIPID [id number] 00:00:00* Test Item Value Reference Range Interpretation [...] (test code = 2821) 17.0 UIU/ML HEMOGLOBIN [id number] 00:00:00* Test Item Value Reference Range Interpretation Comme nts HEMOGLOBIN A1c (test code = 83091) 12.3 % CBC W/AUTO [id number] 00:00:00* Test Item Value Reference Range Interpretation [...] 09/07/2022 Performed by Keshawn Jones MD at [facility] ESOPHAGUS ENDOSCOPY 2023 LAPAROSCOPIC CHOLECYSTECTOMY 2023 TUBAL LIGATION UPPER GI ENDOSCOPY, BIOPSY N/A 09/07/2022 Performed by Keshawn Jones MD at [facility] Social History Tobacco Use Smoking status: [...] PPI for testing Keshawn Jones MD Gastroenterology [facility] 2023-04-16 10:46:10 [facility] followup patient note CC: PASHA HPI: [...] 09/07/2022 Performed by Keshawn Jones MD at [facility] ESOPHAGUS ENDOSCOPY 2023 LAPAROSCOPIC CHOLECYSTECTOMY 2023 TUBAL LIGATION UPPER GI ENDOSCOPY, BIOPSY N/A 09/07/2022 Performed by Keshawn Jones MD at [facility] Social History Tobacco Use Smoking status: [...] RTC; 4 weeks Keshawn Jones MD Gastroenterology [facility] 2023-02-16 11:07:50 CC: uterine prolapse, abnl uterine [...] da josé TLH w/ bilateral salpingectomy [place] followed with anterior repair and SSLF, along [...] 09/07/2022 Performed by Keshawn Jones MD at [facility] TUBAL LIGATION UPPER GI ENDOSCOPY, BIOPSY N/A 09/07/2022 Performed by Keshawn Jones MD at [facility] Current Outpatient Medications on File Prior [...] education level: 8th grade Occupational History Occupation: [employer] Tobacco Use Smoking status: Former Types: E-cigarettes [...] TLH w/ bilateral salpingectomy on 03/02/23 at [facility] in [place] followed with anterior repair and SSLF, along [...] pain meds escribed today (norco and motrin). [facility]
[2024-02-10 14:38] LABS: Absolute Basophils 0.1 K/uL (0-0.5); Absolute Lymphocytes (CBC) 2.2 K/uL (0.7-4.9); Absolute Monocytes 0.6 K/uL (0.1-1.3); Absolute Neutrophil 8.6 K/uL (1.8-8.0); Basophils % 0.5 % (0-1.3); Eosinophils % 0.2 % (0-4.4); Hematocrit 29.5 % (36.0-45.0); Hemoglobin 10.2 g/dL (12.0-15.0); Lymphocytes % 18.9 % (15.3-44.8); MCH 31.5 pg (27.0-35.0); MCHC 34.7 g/dL (32.0-36.0); MCV 90.8 fL (80-100); MPV 7.3 fL (7.6-11.3); Monocytes % 5.2 % (3.3-12.3); Neutrophils % 75.2 % (41.7-73.7); Nucleated Red Blood Cells % 0.1 % (0-0); Platelets 488 thou/uL (152-406); RBC Red Blood Cell Count 3.25 M/uL (3.86-4.86); Red Cell Distribution Width 11.9 % (12.1-15.2)
[2024-02-10] MEDS ORDERED: droPERidol 5 MG/2 ML VIAL ONE (14:38)
[2024-02-10] MEDS ORDERED: NA CHLORIDE 0.9% 1,000 ML ONE (14:38)
[2024-02-10] MEDS ORDERED: FAMOTIDINE 20 MG/2 ML VIAL IV ONE (14:38)
[2024-02-10 14:54] LABS: Albumin 3.2 g/dL (3.4-5.0); Albumin/Globulin Ratio 0.8 (1.1-1.8); Anion Gap 11.6 mEq/L (5.0-15.0); Bilirubin Total 0.3 mg/dL (0.2-1.0); Globulin 4.2 g/dL (2.3-3.5); Potassium 4.6 mEq/L (3.5-5.1); Protein, Total 7.4 g/dL (6.4-8.2)
--- NOTE | 2024-02-10 15:19 | RAD REPORT ---
EXAMINATION: CT ABDOMEN AND PELVIS WITHOUT CONTRAST CLINICAL INDICATION: ABD PAIN TECHNIQUE: CT abdomen and pelvis was performed, without IV contrast, as per department protocol. Axia l, sagittal and coronal reconstructions were obtained. One or more of the following dose reduction techniques were used: Automated exposure control, adjustment of the mA and kV according to the patien t size, and iterative reconstruction. Unless otherwise specified, incidental findings do not require dedicated imaging follow-up. COMPARISON: No prior exam. FINDINGS: The lack of intravenous contrast limits the sensitivity of this exam for evaluation of solid visceral organs, vascular structures, and retroperitoneum. LOWER CHEST: The visualized lung bases are clear. LIVER:Normal in size and contour. No focal lesion. Cholecystectomy clips. SPLEEN: Normal size. No focal lesion. PANCREAS: No mass, ductal dilation, or lucia-pancreatic fluid. ADRENALS: Normal; no mass. KIDNEYS AND URETERS: Punctate bilateral nephrolithiasis without hydronephrosis seen. URINARY BLADDER: Normal contour. GASTROINTESTINAL TRACT: No evidence of bowel obstruction, significant free fluid, free air or abscess . APPENDIX: Normal appendix. LYMPH NODES: No lymphadenopathy. MUSCULOSKELETAL: No acute or suspicious osseous abnormality. ADDITIONAL FINDINGS: None. IMPRESSION: No acute or concerning abnormalities in the abdomen or pelvis, with evaluation limited by lack of IV contrast.
[2024-02-10] MEDS ORDERED: DICYCLOMINE HCL 20 MG/2 ML AMP IM ONE (15:27)
[2024-02-10] MEDS ORDERED: METOCLOPRAMIDE 10 MG/2mL INJ ONE (15:46)
[2024-02-10] MEDS ORDERED: NA CHLORIDE 0.9% 50 ML ONE (17:39)
[2024-02-10] MEDS ORDERED: PROMETHAZINE INJ 25 MG/ML AMP ONE (17:39)
[2024-02-10 17:46] LABS: Specific Gravity 1.011 (1.005-1.030); Sqamous Epithelial <5 /HPF (None Seen); Urine Bacteria <20 /HPF (<20); Urine Bilirubin NEGATIVE (Negative); Urine Blood 2+ (Negative); Urine Clarity Turbid (Clear); Urine Color Colorless (Yellow); Urine Crystals Unidentified Few /HPF (None Seen); Urine Culture Reflex Order NOT NEEDED; Urine Glucose 3+ (Negative); Urine Ketones TRACE (Negative); Urine Micro Reflex YN NO BILL MICROSCOPIC; Urine Mucus Slight /HPF (None Seen); Urine Nitrite NEGATIVE (Negative); Urine Protein 3+ (Negative); Urine RBC >50 /HPF (None Seen); Urine Urobilinogen Normal (Normal); Urine WBC <5 /HPF (<5); Urine Yeast (Budding) Trace /HPF (None Seen); Urine pH 6.5 (5.0-7.0)
[2024-02-10] MEDS ORDERED: HYDROMORPHONE HCL 0.5 MG/0.5 ML INJ ONE (18:01)
--- NOTE | 2024-02-10 18:43 | ER ---
Nurse's Notes [facility] Name: Elsy Bradford Age: 49 yrs Sex: Female : 1975 Arrival Date: 02/10/2024 Time: 13:26 Bed 6 Private MD: Diagnosis: Nausea with vomiting, unspecified;Upper abdominal pain, unspecified;Chronic kidney disease, stage 4 (severe) Presentation: 02/09 13:39 Chief complaint: Patient states: she is having continued abdominal pain, nausea and ap3 vomiting that started at approx 0600. Coronavirus screen: At this time, the client does not indicate any symptoms associated with coronavirus-19. Ebola Screen: No symptoms or risks identified at this time. Initial Sepsis Screen: Does the patient meet any 2 criteria? HR > 90 bpm. Does the patient have a suspected source of infection? No. Patient's initial sepsis screen is negative. Risk Assessment: Do you want to hurt yourself or someone else? Patient reports no desire to harm self or others. Onset of symptoms is unknown. 13:39 Method Of Arrival: Ambulatory ap3 13:39 Acuity: ALIN 3 ap3 Triage Assessment: 13:42 General: Appears uncomfortable, Behavior is calm, cooperative, restless. Pain: ap3 Complains of pain in abdomen Pain currently is 8 out of 10 on a pain scale. Neuro: Level of Consciousness is awake, alert, obeys commands, Oriented to person, place, time, situation. Cardiovascular: Patient's skin is warm and dry. Respiratory: Airway is patent Respiratory effort is even, unlabored, Respiratory pattern is regular, symmetrical. GI: Reports lower abdominal pain, upper abdominal pain, cramping, nausea, vomiting. 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 - Infectious Disease History:: Denies. - Social history:: Smoking status: Patient denies any tobacco usage or history of. Screenin:42 [facility] ED Fall Risk Assessment (Adult) History of falling in the last 3 months, ap3 including since admission No falls in past 3 months (0 pts) Confusion or Disorientation No (0 pts) Intoxicated or Sedated No (0 pts) Impaired Gait No (0 pts) Mobility Assist Device Used No (0 pt) Altered Elimination No (0 pt) Score/Fall Risk Level 0 - 2 = Low Risk Oriented to surroundings, Maintained a safe environment, Educated pt \T\ family on fall prevention, incl call for assistance when getting out of bed, Assessed \T\ reinforced patient's understanding of fall precautions, Hourly rounding (assess needs \T\ fall precautionary measures) done, Used ambulatory aids as needed (educated on \T\ assisted with), Used gait belt as appropriate. Abuse screen: Denies threats or abuse. Nutritional screening: No deficits noted. Tuberculosis screening: No symptoms or risk factors identified. Assessment: 14:45 General: Appears uncomfortable, Behavior is calm, cooperative. Pain: Complains of pain cm10 in abdomen Pain currently is 10 out of 10 on a pain scale. Neuro: No deficits noted. Level of Consciousness is awake, alert, obeys commands, Oriented to person, place, time, situation, Appropriate for age. Respiratory: No deficits noted. Airway is patent Respiratory effort is even, unlabored, Respiratory pattern is regular, symmetrical. GI: Reports lower abdominal pain, upper abdominal pain, nausea, vomiting. 16:38 Reassessment: No changes from previously documented assessment. Patient is alert, bp oriented x 3, equal unlabored respirations, skin warm/dry/pink. 17:31 Reassessment: Patient and/or family updated on plan of care and expected duration. Pain cm10 level reassessed. Patient is alert, oriented x 3, equal unlabored respirations, skin warm/dry/pink. Pt noted to be vomiting at this time. provider made aware. Patient states symptoms have not improved. 17:48 Reassessment: Pt reports that she continues to have pain. provider made aware. cm10 18:40 Reassessment: Patient appears in no apparent distress at this time. No changes from cm10 previously documented assessment. Patient and/or family updated on plan of care and expected duration. Pain level reassessed. Patient is alert, oriented x 3, equal unlabored respirations, skin warm/dry/pink. Patient states feeling better. Patient states symptoms have improved. 18:53 GI: cm10 Vital Signs: 13:39 BP 160 / 109; Pulse 99; Resp 19; Temp 97.9; Pulse Ox 100% ; Weight 67.59 kg; Height 4 ap3 ft. 11 in. ; Pain 8/10; 14:50 BP 168 / 86; Pulse 101; Resp 19; Pulse Ox 100% ; cm10 16:00 BP 190 / 110; Pulse 101; Resp 16; Pulse Ox 100% ; bp 17:36 BP 187 / 110; Pulse 107; Resp 18; Pulse Ox 100% on R/A; cm10 18:38 BP 151 / 82; Pulse 98; Resp 15; Pulse Ox 100% on R/A; cm10 13:39 Body Mass Index 30.09 (67.59 kg, 149.86 cm) ap3 13:39 Pain Scale: Adult ap3 ED Course: 13:29 Patient arrived in ED. al6 13:29 [facility] sb4 13:29 Lew Mohan MD is Attending Physician. sb4 13:41 Triage completed. ap3 13:43 Arm band placed on right wrist. ap3 14:17 Miguel Ángel Rivera, KARELY is Primary Nurse. bp 14:27 Inserted saline lock: 22 gauge in right forearm, using aseptic technique. Blood bp collected. Flushed with 10 mL NS. 15:13 CT Abd/Pelvis - Without Contrast In Process Unspecified. EDMS 16:04 Patient has correct armband on for positive identification. bp 18:42 Luis Lewis MD is Referral Physician. sb4 18:53 Provided Education on: Follow-up instructions. cm10 18:53 No provider procedures requiring assistance completed. IV discontinued, intact, cm10 bleeding controlled, No redness/swelling at site. Pressure dressing applied. Administered Medications: 14:52 Drug: Droperidol IVP 2.5 mg IVP once Route: IVP; Site: right forearm; cm10 15:22 Follow up: Response: No adverse reaction cm10 14:53 Drug: Famotidine IVP 20 mg IVP once; dilute with 10 mL 0.9% NaCl; give over 2 minutes cm10 Route: IVP; Site: right forearm; 15:33 Follow up: Response: No adverse reaction cm10 14:53 Drug: NS 0.9% IV 1000 ml IV at 1 bolus Per protocol; to be given as a bolus over 60 cm10 minutes Route: IV; Rate: 1 bolus; Site: right forearm; 15:50 Follow up: Response: No adverse reaction; IV Status: Completed infusion; IV Intake: cm10 1000ml 15:32 Drug: Dicyclomine IM 20 mg IM once Route: IM; Site: left vastus lateralis; cm10 16:00 Follow up: Response: No adverse reaction cm10 16:01 Drug: metoCLOPramide IVP 10 mg IVP once; over 1 to 2 minutes Route: IVP; Site: right bp forearm; 16:31 Follow up: Response: No adverse reaction cm10 17:45 Drug: Promethazine IVP 12.5 mg IVP once Route: IVP; Site: right forearm; cm10 18:04 Follow up: Response: No adverse reaction cm10 18:04 Drug: HYDROmorphone IVP 0.5 mg IVP once Route: IVP; Site: right forearm; cm10 18:40 Follow up: Response: No adverse reaction; Pain is decreased cm10 Medication: 18:54 VIS not applicable for this client. cm10 Intake: 15:50 IV: 1000ml; Total: 1000ml. cm10 Outcome: 18:43 Discharge ordered by MD. sb4 18:53 Discharged to home ambulatory, with significant other, cm10 18:53 Condition: good 18:53 Discharge instructions given to patient, Instructed on discharge instructions, follow up and referral plans. Demonstrated understanding of instructions, follow-up care, 18:55 Patient left the ED. cm10 Signatures: Dispatcher [employer] EDMS Miguel Ángel Rivera RN RN bp Prokisch, Amanda, RN RN deepika3 Gail Fischer PA-C PA-C sb4 Martinez, Clarissa, RN RN cm10 Leyla [email or web address] Corrections: (The following items were deleted from the chart) 18:05 17:31 Reassessment: Patient and/or family updated on plan of care and expected cm10 duration. Pain level reassessed. Patient is alert, oriented x 3, equal unlabored respirations, skin warm/dry/pink. Patient states symptoms have not improved. cm10
--- NOTE | 2024-02-10 18:43 | EDPHYS ---
Physician Documentation [facility] Name: Elsy Bradford Age: 49 yrs Sex: Female : 1975 Arrival Date: 02/10/2024 Time: 13:26 Bed 6 Private MD: ED Physician Lew Mohan HPI: 02/09 13:47 This 49 yrs old Female presents to ER via Ambulatory with complaints of sb4 Abdominal Pain, Vomiting. 13:47 The patient presents with abdominal pain in the upper abdomen. Onset: The sb4 symptoms/episode began/occurred this morning. The symptoms do not radiate. Associated signs and symptoms: Pertinent positives: nausea and vomiting, constipation. The symptoms are described as crampy. The patient has experienced similar episodes in the past, multiple times. 13:49 abdominal pain, nausea, and vomiting since this morning. reports history of sb4 gastroparesis. discharged yesterday for gastroparesis and metabolic acidosis with a prescription for reglan. states she was able to eat a subway sandwich yesterday. has not had a BM in 3 days. 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 - Infectious Disease History:: Denies. - Social history:: Smoking status: Patient denies any tobacco usage or history of. ROS: 13:50 Constitutional: Negative for fever, chills, and weight loss, sb4 13:50 Abdomen/GI: Positive for abdominal pain, nausea and vomiting, constipation, 13:50 All other systems are negative, Exam: 13:50 Head/Face: Normocephalic, atraumatic. Eyes: Extra-ocular motions intact. Periorbital sb4 areas with no swelling, redness, or edema. ENT: Mucous membranes moist. Cardiovascular: Regular rate and rhythm with a normal S1 and S2. Respiratory: No increased work of breathing, no retractions or nasal flaring. Abdomen/GI: Soft, non-tender, no distension. Skin: Warm, dry with normal turgor. Normal color with no rashes, no lesions, and no evidence of cellulitis. 13:50 Constitutional: The patient appears alert, awake, in obvious pain, uncomfortable, crying Vital Signs: 13:39 BP 160 / 109; Pulse 99; Resp 19; Temp 97.9; Pulse Ox 100% ; Weight 67.59 kg; Height 4 ap3 ft. 11 in. ; Pain 8/10; 14:50 BP 168 / 86; Pulse 101; Resp 19; Pulse Ox 100% ; cm10 16:00 BP 190 / 110; Pulse 101; Resp 16; Pulse Ox 100% ; bp 17:36 BP 187 / 110; Pulse 107; Resp 18; Pulse Ox 100% on R/A; cm10 18:38 BP 151 / 82; Pulse 98; Resp 15; Pulse Ox 100% on R/A; cm10 13:39 Body Mass Index 30.09 (67.59 kg, 149.86 cm) ap3 13:39 Pain Scale: Adult ap3 MDM: 13:43 Medical Screening Exam initiated sb4 22:33 Data reviewed: vital signs, nurses notes, lab test result(s), radiologic studies, and sb4 as a result, I will discharge patient. Care significantly affected by the following chronic conditions: Diabetes, Hypertension, Chronic Kidney Disease, gastroparesis. 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 ED course: symptoms have improved. patient has appointment with GI tomorrow. will discharge home at this time. 02/09 13:47 Order name: CBC with Diff; Complete Time: 14:40 sb4 02/09 13:47 Order name: CMP; Complete Time: 14:54 sb4 02/09 13:47 Order name: Lipase; Complete Time: 14:54 sb4 02/09 15:26 Order name: UAM; Complete Time: 17:48 sb4 02/09 14:55 Order name: CT Abd/Pelvis - Without Contrast; Complete Time: 15:20 sb4 02/09 13:47 Order name: IV Saline Lock; Complete Time: 14:26 sb4 02/09 13:47 Order name: Labs collected and sent; Complete Time: 14:27 sb4 02/09 15:20 Order name: PO challenge; Complete Time: 15:42 sb4 Administered Medications: 14:52 Drug: Droperidol IVP 2.5 mg IVP once Route: IVP; Site: right forearm; cm10 15:22 Follow up: Response: No adverse reaction cm10 14:53 Drug: Famotidine IVP 20 mg IVP once; dilute with 10 mL 0.9% NaCl; give over 2 minutes cm10 Route: IVP; Site: right forearm; 15:33 Follow up: Response: No adverse reaction cm10 14:53 Drug: NS 0.9% IV 1000 ml IV at 1 bolus Per protocol; to be given as a bolus over 60 cm10 minutes Route: IV; Rate: 1 bolus; Site: right forearm; 15:50 Follow up: Response: No adverse reaction; IV Status: Completed infusion; IV Intake: cm10 1000ml 15:32 Drug: Dicyclomine IM 20 mg IM once Route: IM; Site: left vastus lateralis; cm10 16:00 Follow up: Response: No adverse reaction cm10 16:01 Drug: metoCLOPramide IVP 10 mg IVP once; over 1 to 2 minutes Route: IVP; Site: right bp forearm; 16:31 Follow up: Response: No adverse reaction cm10 17:45 Drug: Promethazine IVP 12.5 mg IVP once Route: IVP; Site: right forearm; cm10 18:04 Follow up: Response: No adverse reaction cm10 18:04 Drug: HYDROmorphone IVP 0.5 mg IVP once Route: IVP; Site: right forearm; cm10 18:40 Follow up: Response: No adverse reaction; Pain is decreased cm10 Disposition Summary: 02/10/24 18:43 Discharge Ordered Notes: Location: Home sb4 Problem: an ongoing problem sb4 Symptoms: have improved sb4 Condition: Stable sb4 Diagnosis - Nausea with vomiting, unspecified sb4 - Upper abdominal pain, unspecified sb4 - Chronic kidney disease, stage 4 (severe) sb4 Followup: sb4 - With: Luis Lewis MD - When: Tomorrow - Reason: Recheck today's complaints, Re-evaluation by your physician Discharge Instructions: - Discharge Summary Sheet sb4 - Chronic Kidney Disease, Adult sb4 - Gastroparesis sb4 Forms: - Patient Portal Instructions sb4 - Leadership Thank You Letter sb4 Addendum: 02/14/2024 07:44 I was immediately available for consultation during this patient's visit. I did not e c2 personally see the patient or discuss the patient with the LORENZO. . Signatures: Dispatcher [employer] Miguel Ángel Paredes, RN RN bp Brenna Parks RN RN ap3 Gail Fischer PA-C PA-C sb4 Cheryl Kohler RN RN cm10 Lew Mohan MD MD ec2
[2024-02-11 00:46] VITALS: O2SAT 100
[2024-02-11 00:48] VITALS: TEMP 97.9
[2024-02-11 00:53] VITALS: BP 151/82
== END 2024-02-10 18:55 | disposition home or self-care (01) ==
LOC: ER 13:26
DX: R10.10 Upper abdominal pain, unspecified (principal); R11.2 Nausea with vomiting, unspecified; I12.9 Hypertensive chronic kidney disease with stage 1 through stage 4 chronic kidney disease, or unspecified chronic kidney disease; E11.22 Type 2 diabetes mellitus with diabetic chronic kidney disease; N18.4 Chronic kidney disease, stage 4 (severe); K21.9 Gastro-esophageal reflux disease without esophagitis; E78.00 Pure hypercholesterolemia, unspecified; Z88.5 Allergy status to narcotic agent
CPT/HCPCS: 96361; 85025; 81001; 36415; 83690; 80053; 74176; 96375; 96372; 96374; 99284; J2550; J2765; J0500; J1171; J1790; J7030

== ENCOUNTER 2024-06-05 11:17 | Day surgery (SDC) | payer OTHER ==
[2024-06-01 14:18] LABS: Absolute Eosinophils 0.3 K/uL (0-0.5); Absolute Lymphocytes (CBC) 2.1 K/uL (0.7-4.9); Absolute Monocytes 0.6 K/uL (0.1-1.3); Basophils % 0.3 % (0-1.3); Eosinophils % 3.2 % (0-4.4); Hematocrit 25.6 % (36.0-45.0); Lymphocytes % 22.9 % (15.3-44.8); MCH 32.5 pg (27.0-35.0); MCV 92.8 fL (80-100); MPV 7.8 fL (7.6-11.3); Monocytes % 6.9 % (3.3-12.3); Neutrophils % 66.7 % (41.7-73.7); Platelets 342 thou/uL (152-406); RBC Red Blood Cell Count 2.76 M/uL (3.86-4.86); Red Cell Distribution Width 12.3 % (12.1-15.2)
[2024-06-01 14:25] LABS: Anion Gap 10.6 mEq/L (5.0-15.0); Potassium 4.6 mEq/L (3.5-5.1)
[2024-06-05] MEDS ORDERED: ONDANSETRON 4 MG/2 ML VIAL ONE (12:02)
[2024-06-05] MEDS ORDERED: ROCURONIUM 50 MG/5 ML VIAL IV ONE (12:02)
[2024-06-05] MEDS ORDERED: propofoL 200 MG/20 ML VIAL IV ONE (12:02)
[2024-06-05] MEDS ORDERED: FENTANYL CITR 100 MCG/2 ML ONE (12:02)
[2024-06-05] MEDS ORDERED: LIDOCAINE 1% MPF 5 ML VIAL ONE (12:02)
[2024-06-05] MEDS ORDERED: MIDAZOLAM HCL 2 MG/2 ML INJ ONE (12:02)
[2024-06-05] MEDS: NA CHLORIDE 0.9% 500 ML ONE (12:05)
[2024-06-05] MEDS ORDERED: EPHEDRINE SULF 50 MG/ML VIAL ONE (13:20)
[2024-06-05] MEDS: CEFAZOLIN SODIUM 2 GM/VIAL ONE (13:25)
[2024-06-05] MEDS: LIDOCAINE HCL/EPINEPHRINE 20 ML MDV ONE (13:39)
[2024-06-05] MEDS: HEPARIN 500 UNIT/5 ML SYR IV ONE (13:44)
[2024-06-05] MEDS ORDERED: NEOSTIGMINE 1 MG/ML -10 ML VIAL ONE (13:48)
[2024-06-05] MEDS ORDERED: GLYCOPYRROLATE 0.2 MG/ML SYR ONE (13:48)
--- NOTE | 2024-06-05 13:56 | P.OP ---
Preoperative diagnosis: Need for Dialysis Postoperative diagnosis: Need for Dialysis Primary procedure: Diagnostic Laparoscopy Anesthesia: GETA + Local Estimated blood loss: <5cc Specimen: none Findings: RIGHT ovarian cyst, blood in pelvis Complications: None Implants: none Transferred to: Recovery Room Condition: Good
[2024-06-05 14:29] VITALS: O2SAT 97
[2024-06-05] MEDS: HYDROCODONE/APAP 5/325 MG TAB PO ONE (14:44)
[2024-06-05] MEDS ORDERED: HYDROCODONE/APAP 5/325 MG TAB ONE (14:45)
[2024-06-05 15:55] VITALS: BP 144/75; TEMP 97.2
--- NOTE | 2024-06-05 20:58 | OP ---
Date of Procedure: 06/05/2024 Surgeon: Emerson Benson MD, Preoperative Diagnosis: Need for dialysis. Postoperative Diagnosis: Need for dialysis. Procedure Performed: Diagnostic laparoscopy. Anesthesia: General endotracheal plus local with 1% lidocaine. Estimated Blood Loss: Less than 5 cc. Specimen: None. Findings: There was a left ovarian cyst, which had an abnormal appearance and blood in the pelvis. Complications: None. Implants: None. Disposition: The patient transferred to recovery room in good condition. Procedure In Detail: After informed consent was obtained, patient was brought to the operating room, prepped and draped in the usual sterile fashion, after adequate anesthesia achieved. I anesthetized an area in the left upper quadrant down to subcutaneous tissues. 5-mm 0-degree optical trocar was i ntroduced into the abdomen without incident or complication. Insufflation was obtained to 15 mmHg, a t this time. No injury to vital structures upon entry into the abdomen. I then proceeded to place a 30-degree laparoscope to the planned surgical site. However, I immediately noticed some bright red blood extending into the pelvis on both the right and left colic gutters and into the pelvis. On fur ther investigation, I noticed that the patient had a significant left large 4 to 5 cm abnormal-appear ing cyst on the left ovary, adnexal region which had hemorrhagic appearance to it, in addition, and a s such, I opted to not proceed at this point. With placement of the catheter, I attempted to reach o ut to industrial education teacher who was not available/gynecologic surgeon who was not available for intraoperative consultation, and as such, I opted to discontinue the procedure, at this point. As such, I will rec heck with Dr. Matthews and discuss alternative measures for dialysis for the patient in a short form. She is not currently a candidate for peritoneal dialysis catheter until she has this ovarian cyst a ddressed. I therefore desufflated the abdomen under direct vision without incident or complication. Remainder of trocars were copiously irrigated and closed with a 4-0 Monocryl in a running fashion. Dermabond was applied over top. The patient tolerated the procedure without incident or complication , transferred to PACU in good condition. All counts were correct at the end of the case. TK/MODL Voice ID: [id number] Report ID: [id number]
[2024-06-05 23:02] LABS: Urine Specific Gravity/Preg 1.025 (1.005-1.030)
== END 2024-06-05 15:24 | disposition home or self-care (01) ==
LOC: OR 11:17
PROVIDERS: ATTEND Surgery
PROC: 0WJG4ZZ Inspection of Peritoneal Cavity, Percutaneous Endoscopic Approach (ICD-10-PCS; principal; 2024-06-05 13:30)
DX: N18.9 Chronic kidney disease, unspecified (principal); I10 Essential (primary) hypertension; E03.9 Hypothyroidism, unspecified; E11.9 Type 2 diabetes mellitus without complications; E78.00 Pure hypercholesterolemia, unspecified; N83.202 Unspecified ovarian cyst, left side
CPT/HCPCS: 49320; 85025; 80048; 36415; 81025; 82947 ×2; J2704; J2710; J2003; J2250; J3010; J2405; J7040; J1642

== ENCOUNTER 2024-06-06 10:00 | Day surgery (SDC) | payer OTHER ==
[2024-06-06] MEDS: NA CHLORIDE 0.9% 500 ML ONE (10:55)
[2024-06-06] MEDS ORDERED: propofoL 200 MG/20 ML VIAL IV ONE (11:02)
[2024-06-06] MEDS ORDERED: ONDANSETRON 4 MG/2 ML VIAL ONE (11:02)
[2024-06-06] MEDS ORDERED: LIDOCAINE 1% MPF 5 ML VIAL ONE (11:02)
[2024-06-06] MEDS ORDERED: FENTANYL CITR 100 MCG/2 ML ONE (11:03)
[2024-06-06] MEDS ORDERED: MIDAZOLAM HCL 2 MG/2 ML INJ ONE (11:03)
[2024-06-06] MEDS: CEFAZOLIN SODIUM 2 GM/VIAL ONE (11:25)
[2024-06-06] MEDS ORDERED: EPHEDRINE SULF 50 MG/ML VIAL ONE (11:31)
[2024-06-06] MEDS: LIDOCAINE HCL/EPINEPHRINE 20 ML MDV ONE (11:38)
[2024-06-06] MEDS: NA CHLORIDE 0.9% 50 ML ONE (11:42)
[2024-06-06] MEDS: NS 0.9% VIAL 10 ML ONE (11:42)
[2024-06-06] MEDS: HEPARIN 5000 UNIT/ML 1 ML VIAL ONE (11:43)
--- NOTE | 2024-06-06 12:00 | P.OP ---
Preoperative diagnosis: Need for Dialysis Postoperative diagnosis: Need for Dialysis Primary procedure: Placement of RIGHT Internal Jugular Tunneled Hemosplit Hemodialysis Cathete Secondary procedure: Ultrasound and Flourscopy utilized Anesthesia: GETA + Local Estimated blood loss: <10cc Specimen: None Findings: Dark non-pulsatile blood, HD @ SVC Complications: None Implants: Hemosplit Curved 19cm HD Catheter Transferred to: Recovery Room Condition: Good
--- NOTE | 2024-06-06 12:14 | RAD REPORT ---
EXAM: Fluoroscopy use, Fluoroscopy <1 Hour HISTORY: HD CATH PLACEMENT COMPARISON: None FINDINGS: Multiple images were sent to PACS, during a fluoroscopically guided procedure. No radiologi st was involved in protocoling or performance of the study, and no radiologist was present for the duration of the procedure. No interpretation of the saved images will be provided. Total fluoroscopy time: 0.4 min. IMPRESSION: Documentation of fluoroscopy use as above. Transcribed Date/Time: 06/06/2024 12:14 PM
[2024-06-06] MEDS: MORPHINE 4 MG/ML SYR ONE (12:22)
--- NOTE | 2024-06-06 12:38 | RAD REPORT ---
Procedure: Chest Single View HISTORY: Central venous catheter placement FINDINGS: Central venous catheter placed into the superior vena cava. No pneumothorax
[2024-06-06 12:44] VITALS: TEMP 97.8
[2024-06-06 14:21] VITALS: BP 160/83; O2SAT 100
--- NOTE | 2024-06-06 22:38 | OP ---
Date of Procedure: 06/06/2024 Surgeon: Emerson Benson MD, Preoperative Diagnosis: Need for dialysis. Postoperative Diagnosis: Need for dialysis. Procedure Performed: Placement of right internal jugular tunneled HemoSplit hemodialysis catheter us ing ultrasound and fluoroscopic guidance utilized. Anesthesia: General endotracheal plus local with 1% lidocaine with epinephrine. Estimated Blood Loss: Less than 10 cc. Specimens: None. Findings: Dark nonpulsatile blood return and the hemodialysis catheter was at the confluence of the SVC. Complications: None. Implants: HemoSplit curved 19 cm hemodialysis catheter. Disposition: The patient was transferred to recovery room in good condition. Procedure In Detail: After informed consent was obtained, patient was brought to the operating room, prepped and draped in usual sterile fashion. After adequate anesthesia was achieved, anesthetized a n area of the right internal jugular vein using ultrasound guidance. I cannulated the right internal jugular vein on the first attempt using ultrasound guidance under visualization with a microintroduc er set. At this point, a microwire was advanced into the confluence and into the right ventricle. U nder fluoroscopic guidance, I pulled the wire back and found it to be in good position. At this poin t, I placed a small janessa incision overlying the insertion wire and placed introducer sheath at this t venancio. I then proceeded to find a tract on the chest wall, anesthetized the tract and the tunneling po sition ultimately making a janessa incision over the chest wall and passed in the tunneling device throu gh the insertion site. After this was completed with the tunneling device, I then proceeded to perfo rm sequential dilatation using Seldinger technique. After microintroducer sheath remained in place, microwire was removed, standard wire was advanced at this point. Fluoroscopic guidance confirmed the position. After sequential dilatation was performed, I placed introducer sheath into the right int ernal jugular vein. Under fluoroscopic guidance, catheter was placed into the introducer sheath and the introducer sheath was removed. At this point, I then proceeded to flush the catheter with steril e saline. Dark red nonpulsatile blood returned from both ports and flushed until completely clear wi th sterile saline. I then used heparin super flush at this point. I then proceeded to secure the ca theter to the chest wall after irrigating all the area. Fluoroscopic guidance confirmed the position of the catheter in good position at this point. Caps were placed. Sterile dressing was then applie d after 3-0 nylon suture was used to secure the catheter and the catheter insertion site with interru pted sutures. The patient tolerated the procedure without incident or complication and transferred t o PACU in good condition. All counts were correct at the end of the case. ROBYN/THEODORE Voice ID: [id number] Report ID: [id number]
== END 2024-06-06 13:30 | disposition home or self-care (01) ==
LOC: OR 10:00
PROVIDERS: ATTEND Surgery
PROC: 0JH60XZ Insertion of Tunneled Vascular Access Device into Chest Subcutaneous Tissue and Fascia, Open Approach (ICD-10-PCS; principal; 2024-06-06 11:30)
DX: N18.9 Chronic kidney disease, unspecified (principal); Z99.2 Dependence on renal dialysis; I10 Essential (primary) hypertension; E11.9 Type 2 diabetes mellitus without complications; E03.9 Hypothyroidism, unspecified; E78.00 Pure hypercholesterolemia, unspecified
CPT/HCPCS: 82947; 71045; 76000; 36561; J1644 ×2; A4216; J2704; J2003; J2250; J3010; J2405; J7040; C1752

== ENCOUNTER 2024-07-05 11:29 | Day surgery (SDC) | payer OTHER ==
[2024-07-05 08:47] LABS: Absolute Eosinophils 0.3 K/uL (0-0.5); Absolute Monocytes 0.8 K/uL (0.1-1.3); Absolute Neutrophil 5.5 K/uL (1.8-8.0); Basophils % 0.5 % (0-1.3); Eosinophils % 2.9 % (0-4.4); Hematocrit 27.1 % (36.0-45.0); Hemoglobin 9.5 g/dL (12.0-15.0); Lymphocytes % 30.8 % (15.3-44.8); MCH 33.3 pg (27.0-35.0); MCHC 34.9 g/dL (32.0-36.0); MCV 95.3 fL (80-100); MPV 7.4 fL (7.6-11.3); Monocytes % 8.6 % (3.3-12.3); Neutrophils % 57.2 % (41.7-73.7); Nucleated Red Blood Cells % 0.1 % (0-0); Platelets 386 thou/uL (152-406); RBC Red Blood Cell Count 2.84 M/uL (3.86-4.86); Red Cell Distribution Width 13.6 % (12.1-15.2)
[2024-07-05 09:00] LABS: Anion Gap 9.6 mEq/L (5.0-15.0); Potassium 4.6 mEq/L (3.5-5.1)
--- NOTE | 2024-07-05 11:12 | EKG ---
Test Date: 2024-07-05 Test Time: 08:36:05 Miniature Set Constructor: PANKAJ MEASUREMENT RESULTS: Intervals: Rate: 72 MT: 142 QRSD: 78 QT: 420 QTc: 459 Lyons: P: 71 MT: 142 QRS: 6 T: 46 INTERPRETIVE STATEMENTS: Normal sinus rhythm Normal ECG Compared to ECG 02/01/2024 13:37:38 Myocardial infarct finding no longer present Electronically Signed On 07-05-24 11:12:05 CDT by Jeronimo Jay
[2024-07-05] MEDS: NA CHLORIDE 0.9% 500 ML ONE (11:50)
[2024-07-05] MEDS ORDERED: ONDANSETRON 4 MG/2 ML VIAL ONE (12:36)
[2024-07-05] MEDS ORDERED: ROCURONIUM 50 MG/5 ML VIAL IV ONE (12:36)
[2024-07-05] MEDS ORDERED: FENTANYL CITR 100 MCG/2 ML ONE (12:36)
[2024-07-05] MEDS ORDERED: propofoL 200 MG/20 ML VIAL IV ONE (12:36)
[2024-07-05] MEDS ORDERED: LIDOCAINE 1% MPF 5 ML VIAL ONE (12:36)
[2024-07-05] MEDS ORDERED: MIDAZOLAM HCL 2 MG/2 ML INJ ONE (12:36)
[2024-07-05] MEDS ORDERED: EPHEDRINE SULF 50 MG/ML VIAL ONE (13:32)
[2024-07-05] MEDS: CEFAZOLIN SODIUM 2 GM/VIAL ONE (13:35)
[2024-07-05] MEDS: LIDOCAINE HCL/EPINEPHRINE 20 ML MDV ONE (13:39)
[2024-07-05] MEDS: HEPARIN 500 UNIT/5 ML SYR IV ONE (13:40)
[2024-07-05] MEDS ORDERED: SUGAMMADEX SODIUM 200 MG/2 ML VIAL IV ONE (13:49)
[2024-07-05] MEDS ORDERED: GLYCOPYRROLATE 0.2 MG/ML SYR ONE (13:54)
[2024-07-05] MEDS ORDERED: NEOSTIGMINE 1 MG/ML -10 ML VIAL ONE (13:54)
--- NOTE | 2024-07-05 13:58 | P.OP ---
Preoperative diagnosis: Need for Dialysis Postoperative diagnosis: Need for Dialysis Primary procedure: Laparoscopic Peritoneal Dialysis Catheter Anesthesia: GETA + Local Estimated blood loss: <5cc Specimen: none Findings: catheter functional in pelvis Complications: None Implants: Macias Double Cuffed PD catheter Transferred to: Recovery Room Condition: Good
--- NOTE | 2024-07-05 14:27 | OP ---
Date of Procedure: 07/05/2024 Surgeon: Emerson Benson MD, Preoperative Diagnosis: Need for dialysis. Postoperative Diagnosis: Need for dialysis. Procedure Performed: Laparoscopic peritoneal dialysis catheter. Anesthesia: General endotracheal plus local 1% lidocaine. Estimated Blood Loss: 5 cc. Specimen: None. Findings: Catheter was functional in the pelvis. Complications: None. Implants: Merit double cuffed peritoneal dialysis, standard catheter utilized. Disposition: Patient was transferred to recovery room in good condition. Procedure In Detail: After informed consent was obtained, the patient was brought to the operating r oom, prepped and draped in the usual sterile fashion. After adequate anesthesia achieved, anesthetiz ed the area after premarking the anatomy per the previous template. I anesthetized the area in the l eft upper quadrant down to subcutaneous tissues. A 5 mm 0-degree optical trocar was introduced into the abdomen without incident or complication. Insufflation obtained to 15 mmHg at this time. She d id tolerate 15 quite well and as such, the pressure was turned down to 10-12 for the majority of case and she did quite well with this. At this point, I then made an incision over the premarked area on the left side of the abdomen in the subcutaneous tissues using the preset introducer sheath. I plac ed this into the pelvis, pointing it toward the coccyx and then the sacrococcygeal region. At this p oint, I performed the dilation after lubricating the parts appropriately and placed the catheter into the deep pelvis in the retrorectus space with a medial turn of the catheter placed in the blue strip e being posterior. I then placed the anterior sheath into the posterior rectus sheath and hooked up the tunneling device, secured with suture and brought it up through the skin level on the left abdome n from the premarked area. I made a counter incision and brought this out at this point without issu e. At this point, the catheter was flowing quite easily with gas emanating from this area. I placed a cap on the end. The patient positioned back in neutral position. I then proceeded to flush the c atheter quite easily and packed with heparin at this point. The abdomen was desufflated under direct vision without complication. All skin edges were then closed using a combination of deep dermal 3-0 Vicryl suture and the skin was closed with 4-0 Monocryl in a running fashion. Dermabond was applied top. The patient tolerated the procedure without incident or complication and transferred to PACU i n good condition. All counts were correct at the end of the case. ROBYN/THEODORE Voice ID: [id number] Report ID: [id number]
[2024-07-05] MEDS: HYDROMORPHONE HCL 0.5 MG/0.5 ML INJ ONE (14:33)
[2024-07-05] MEDS: D50W 25 GM/50 ML SYRINGE IV ONE (14:35)
[2024-07-05] MEDS ORDERED: Oxycodone HCl/Acetaminophen 5/325 MG TAB ONE (15:21)
[2024-07-05] MEDS: Oxycodone HCl/Acetaminophen 5/325 MG TAB PO ONE (15:22)
[2024-07-05 15:51] VITALS: BP 150/81; TEMP 97.3; O2SAT 94
== END 2024-07-05 15:42 | disposition home or self-care (01) ==
LOC: OR 11:29
PROVIDERS: ATTEND Surgery
PROC: 0WHG43Z Insertion of Infusion Device into Peritoneal Cavity, Percutaneous Endoscopic Approach (ICD-10-PCS; principal; 2024-07-05 13:45)
DX: N18.6 End stage renal disease (principal); Z99.2 Dependence on renal dialysis
CPT/HCPCS: 93005; 85025; 80048; 36415; 84703; 82947 ×3; 49324; J2704; J2710; J2003; J2250; J3010; J1171; J1642; J2405; J7040